=== PATIENT | male | born 1990 | race Caucasian/White ===

== ENCOUNTER 2020-08-02 21:08 | Inpatient (IN) | payer MEDICAID, SELFPAY ==
[2020-08-02 21:09] VITALS: BP 124/83; PULSE 105; RESP 18; TEMP 37; O2SAT 100; BMI 20.1
--- NOTE | 2020-08-02 21:34 | ED.VISSUMM ---
- ER Visit Summary Date of Service: 08/02/20 Chief Complaint: Resting detox for heroin and alcohol abuse History of Present Illness: The patient is a 30 M no seen past medical history. Patient states is never gone through detox before. He says for last 5 months he has been drinking about 1/5 of hard alcohol daily and tries to use heroin daily. 5 years ago he did IV heroin and now he snorts the heroin. He denies any symptoms currently. At times he does get nauseated. He denies any fever. Denies any other complaints. Physical Examination: Well-appearing 30-year-old male no acute distress. Vital signs stable afebrile. Pulse ox 9% on room air no hypoxia. HEENT exam unremarkable. Pupils are reactive light no signs of trauma. Moist with membranes. Neck nontender no lymphadenopathy. Lungs clear to auscultation bilaterally. Heart regular rhythm no murmur. Abdomen soft nontender normal bowel sounds no peritoneal signs. Patient moving all 4 extremities. No cellulitis or abscesses. Normal range of motion nontender. No edema. Back nontender. Neurologically is awake alert with no focal motor deficits. Test Results: None Emergency Department Course and Treatment: 30-year-old male medically cleared requesting detox for alcohol and heroin. Treatment Plan: Hospitalist on page for admission. Disposition: Admit for detox Impression: Requesting detox for both alcohol and heroin abuse This note was generated with [employer] dictation software. It may contain incorrect words, spelling, and punctuation that were not noted in review of the chart prior to signing
--- NOTE | 2020-08-02 21:57 | ED.RN ---
180 patient navigator made aware of patient being admitted
--- NOTE | 2020-08-02 22:00 | ED.RN ---
rudy called report at 191
[2020-08-02 22:09] VITALS: RESP 18
--- NOTE | 2020-08-02 23:27 | PCM.HP.STD ---
Problem List (1) Alcohol withdrawal Status: Acute (2) Heroin withdrawal Status: Acute History of Present Illness Date of Admission: 08/02/20 Chief Complaint: Withdrawal symptoms The patient is a 30 year old M with a significant history of anxiety disorder; depression; alcohol abuse and heroin abuse who presents to the emergency department with withdrawal symptoms. His symptoms started on the same day of presentation. He describes his symptoms as nausea; fatigue; diaphoresis; tremor; diarrhea; restless leg; and twitching. Patient has been drinking alcohol for over 1 year. However in the last year he has be drinking more steadily. He drinks about a fifth of hard liquor daily. Last time he drank was about 4 hours prior to presentation. Also, he snorts heroin. In the past he used to shoot heroin but last time he shot heroin was about 5 years ago. Patient has not been to a rehabilitation program before. Past Medical History Medical History: Medical History (Last Updated 08/03/20 @ 00:[address] Go Tay MD) Denies previous medical history Allergies No Known Allergies Allergy (Verified 08/02/20 21:11) Home Medications: Ambulatory Orders Medication Instructions Recorded NK 08/02/20 Surgical History: tonsillectomy Smoking Status: Current every day smoker Tobacco Use: Cigarettes, Vapor Alcohol: Heavy Drugs: Heroin - *Family History Maternal History Items: - - Leukemia Paternal History Items: Hypertension Review of Systems Constitutional: Denies: Chills, Fever, Weight Change HEENT: Denies: Head Aches, Sinus Congestion, Sinus Drainage Cardiovascular: Denies: Chest Pain, Palpitations Respiratory: Denies: Cough, Shortness of breath at rest, Sputum production Gastrointestinal: Reports: Diarrhea. Denies: Abdominal Pain, Nausea, Vomiting Genitourinary: Denies: Dysuria Musculoskeletal: Denies: Joint Pain, Joint Tenderness Skin: Denies: Rash, Wounds Neurological: Reports: Tremor. Denies: Focal weakness, Numbness, Tingling Psychiatric: Reports: Anxiety, Depression. Denies: Homicidal Ideations, Suicidal Ideations Hematologic/ Lymphatic: Denies: Easy Bruising, Easy Bleeding VTE Information - Inpt Only VTE Present on Admission: No VTE Mechan Device Prophylaxis: None VTE Pharm Prophylaxis ordered?: No Reason prophylaxis not ordered:: Treatment Not Indicated - Low risk; encouraged to ambulate Patient Problems: Active and Suspected Problems Alcohol withdrawal (Acute) Heroin withdrawal (Acute) - Physical Exam Vitals/I&O's: Vital Signs Temp Pulse Resp BP Pulse Ox 98.6 F 105 H 18 124/83 H 100 08/02/20 21:09 08/02/20 21:09 08/02/20 22:09 08/02/20 21:09 08/02/20 21:09 Oxygen Delivery Method Room Air Weight: 60 kg Body Mass Index (BMI) 20.1 General: Alert, Oriented x3, Cooperative, - - Patient was repeatedly moving his legs. HEENT: Atraumatic, PERRLA, EOMI, Normocephalic Neck: Supple, No JVD, Negative Carotid Bruits Lungs: Clear to auscultation, Normal air movement Cardiovascular: Normal S1, Normal S2, No murmurs, Tachycardic Abdomen: Bowel Sounds Present, Soft, Non Tender Extremities: No edema, Capillary Refill Less than 3 Seconds Skin: No rashes, No breakdown Musculoskeletal: No Tenderness to Palpation of Joints or Extremities Neurological: Cranial nerves II-XII grossly intact Psych/Mental Status: Anxious Assessment/Plan All Active Problems Alcohol withdrawal (Acute) Heroin withdrawal (Acute) The patient is a 30 year old M with a significant history of alcohol abuse; heroin abuse; and tobacco abuse who presents to the emergency department with withdrawal symptoms. Alcohol dependence and desire for detoxification/opioid dependence and desire for detoxification Patient will be started on phenobarbital and other adjunctive medications: Gabapentin as needed; dicyclomine as needed; Vistaril as needed; methocarbamol as needed; clonidine as needed; Imodium as needed; trazodone as needed; Zofran as needed; scheduled thiamine; and schedule folic acid. Monitor CIWA; COWS and CINA score If phenobarbital taper is unable to control symptoms consider adding Subutex. Tobacco abuse Counseled Nicotine patch prescribed. DVT prophylaxis Low risk Encourage to ambulate Inpatient E&M: 30518 Init Hosp L3
[2020-08-02 23:28] VITALS: BP 146/81; PULSE 107; RESP 18; TEMP 36.8; O2SAT 100
[2020-08-02 23:41] VITALS: BMI 19.9
[2020-08-02 23:45] VITALS: BP 133/80; PULSE 88; RESP 16; TEMP 36.6; O2SAT 100
[2020-08-02 23:48] VITALS: BMI 19.9
[2020-08-02] MEDS: Ondansetron 8 MG Tablet PO (23:57)
[2020-08-02] MEDS: Dicyclomine 10 MG Capsule 20 MG PO (23:58)
[2020-08-02] MEDS: Phenobarbital 32.4 MG Tablet 64.8 MG PO (23:58)
[2020-08-02] MEDS: traZODone 100 MG Tablet PO (23:59)
[2020-08-03] MEDS: Gabapentin 300 MG Capsule PO (00:33)
[2020-08-03] MEDS: Buprenorphine HCl 2 MG TAB.SUBL SL ×3 (01:09→16:48)
[2020-08-03] MEDS: Phenobarbital 32.4 MG Tablet 64.8 MG PO ×5 (04:39→19:51)
[2020-08-03 04:44] VITALS: BP 104/67; PULSE 68; RESP 16; TEMP 36.6; O2SAT 100
[2020-08-03 09:10] LABS: Absolute Lymphocyte Count 2.05 X10^3/uL (0.83-4.51); Absolute Neutrophil Count 2.8 X10^3/uL (2.0-7.7); Basophil# 0.03 X10^3/uL; Basophil% 0.5 % (0-1); Eosinophil# 0.08 X10^3/uL; Eosinophils% 1.4 % (0-5); Hematocrit 45.4 % (40-54); Lymphocyte # 2.05 X10^3/ul (4.0); Lymphocyte % 35.8 % (19-41); Mean Corpuscular Hgb 30.5 pg (27.0-32.0); Mean Corpuscular Volume 92.5 fL (80-94); Mean Platelet Vol. 10.3 fl (6.2-12.0); Monocyte# 0.73 X10^3/uL; Monocyte% 12.8 % (0-10); NRBC Flagged by Analyzer 0 % (0-5); Neutrophil # 2.82 X10^3/uL (2.7-7.7); Neutrophil % 49.3 % (47-70); Platelet Count 161 K/mm3 (150-450); RBC Distribution Width CV 12.5 % (11.6-14.6); RBC Distribution Width SD 42.6 fl (35.1-43.9); Red Blood Count 4.91 M/mm3 (4.6-6.2); White Blood Count 5.7 K/mm3 (4.4-11.0)
[2020-08-03 09:27] LABS: AST(SGOT) 23 U/L (15-37); Alanine Aminotransfer ALT/SGPT 28 U/L (16-61); Albumin, Serum 3.3 g/dL (3.2-5.0); Alkaline Phosphatase 104 U/L (45-117); Anion Gap 3 (5-15); BUN 14 mg/dL (7-18); BUN/Creat Ratio 15.7 RATIO (10-20); Calcium,Total 8.9 mg/dL (8.5-10.1); Chloride 107 mmol/L (98-107); Creatinine, Serum 0.89 mg/dL (0.70-1.30); EST Glomerular Filtration Rate 107 mL/min (>60); Est Glom Filt Rate - Afr Amer 129 mL/min (>60); Estimated Creatinine Clearance 101.97 ml/min; Globulin 3.4 g/dL (2.2-4.2); Glucose 95 mg/dL (74-106); Potassium 3.6 mmol/L (3.5-5.1); Protein, Total 6.7 g/dL (6.4-8.2); Sodium Level 140 mmol/L (136-145)
[2020-08-03 09:50] VITALS: BP 124/72; PULSE 92; RESP 18; TEMP 36.8; O2SAT 100
[2020-08-03] MEDS: Folic Acid 1 MG Tablet PO (09:54)
[2020-08-03] MEDS: Thiamine Hydrochloride 100 MG Tablet PO (09:54)
--- NOTE | 2020-08-03 10:50 | ADDICTION ---
This financial underwriter met with PT in his room to complete ASAM, MSE, AUDIT/DUDIT assessments and to plan for discharge. PT A+Ox4 and participated actively. PT appears appropriate for 4.0 LOC based on ASAM assessment. Assessments completed, faxed to [facility] and placed in PT's chart. D/C plan completed, faxed to [facility] and placed in PT's chart. PT did not report a need for transportation coordination after discharge. PT to follow-up with Des on 08/08/20 at 9:30am for assessment with Des. PT given contact information for this financial underwriter and Des. PT given recovery-related materials during this visit.
[2020-08-03 11:56] LABS: Bedside Glucose 137 mg/dL (70-110)
[2020-08-03] MEDS: Dicyclomine 10 MG Capsule 20 MG PO (12:32)
[2020-08-03] MEDS: Methocarbamol 750 MG Tablet 1500 MG PO ×2 (12:32→19:51)
[2020-08-03 12:35] VITALS: BP 114/71; PULSE 64; RESP 18; TEMP 36.8; O2SAT 100
--- NOTE | 2020-08-03 14:24 | PN_ITS ---
Patient Problems: Active and Suspected Problems (Last Updated 08/03/20 @ 00:[address] Go Tay MD) Alcohol withdrawal (Acute) Heroin withdrawal (Acute) Reason for Visit: Follow-up on acute alcohol withdrawal Subjective: Patient was seen and examined. He feels improved. He has some restlessness in his legs. Otherwise there were no acute events overnight. Patient last used more than half a gram of heroin 2 hours prior to admission. He admits to also drinking 4 hours prior to admission. Objective: Physical exam: General: Alert, Oriented x3, Cooperative, appears anxious and restless HEENT: Atraumatic, PERRLA, EOMI, Normocephalic Neck: Supple, No JVD, Negative Carotid Bruits Lungs: Clear to auscultation, Normal air movement Cardiovascular: Normal S1, Normal S2, No murmurs, Tachycardic Abdomen: Bowel Sounds Present, Soft, Non Tender Extremities: No edema, Capillary Refill Less than 3 Seconds Skin: No rashes, No breakdown Musculoskeletal: No Tenderness to Palpation of Joints or Extremities Neurological: Cranial nerves II-XII grossly intact Psych/Mental Status: Anxious Vitals/I&O's: Vital Signs Temp Pulse Resp BP Pulse Ox 98.3 F 64 18 114/71 100 08/03/20 12:35 08/03/20 12:35 08/03/20 12:35 08/03/20 12:35 08/03/20 12:35 Oxygen Delivery Method Room Air Weight: 59.4 kg Body Mass Index (BMI) 19.9 Intake and Output for Last 24 Hours 08/01/20 08/02/20 08/03/20 23:59 23:59 23:59 Intake Total 1100 / 1100 Balance 1100 / 1100 Laboratory Results 08/03/20 08:55: WBC 5.7, RBC 4.91, Hgb 15.0, Hct 45.4, MCV 92.5, MCH 30.5, MCHC 33.0, RDW Std Deviation 42.6, RDW Coeff of Ida 12.5, Plt Count 161, MPV 10.3, Immature Gran % (Auto) 0.200, Neut % (Auto) 49.3, Lymph % (Auto) 35.8, Beckham % (Auto) 12.8 H, Eos % (Auto) 1.4, Baso % (Auto) 0.5, Absolute Neuts (auto) 2.8, Absolute Lymphs (auto) 2.05, Nucleated RBC % 0 08/03/20 08:55: Sodium 140, Potassium 3.6, Chloride 107, Carbon Dioxide 30.0, Anion Gap 3 L, BUN 14, Creatinine 0.89, Estim Creat Clear Calc 101.97, Est GFR (MDRD) Af Amer 129, Est GFR (MDRD) Non-Af 107, BUN/Creatinine Ratio 15.7, Glucose 95, Calcium 8.9, Total Bilirubin 0.50, AST 23, ALT 28, Alkaline Phosphatase 104, Total Protein 6.7, Albumin 3.3, Globulin 3.4, Albumin/Globulin Ratio 1.0 08/03/20 11:51: POC Glucose 137 H Current Medications Buprenorphine HCl (Buprenorphine Hcl 2 Mg Tab.Subl) 4 mg SL Q8H COUNT INCLUDES THE [facility]; Taper Stop: 08/06/20 00:59 Last Admin: 08/03/20 09:54 Dose: 4 mg Documented by: Clonidine (Clonidine Hcl 0.1 Mg Tablet) 0.1 mg PO Q8H PRN PRN PRN Reason: RESTLESSNESS Dicyclomine HCl (Dicyclomine 10 Mg Capsule) 20 mg PO Q6H PRN PRN PRN Reason: abdominal discomfort Last Admin: 08/03/20 12:32 Dose: 20 mg Documented by: Folic Acid (Folic Acid 1 Mg Tablet) 1 mg PO DAILY@0800 COUNT INCLUDES THE [facility] Last Admin: 08/03/20 09:54 Dose: 1 mg Documented by: Gabapentin (Gabapentin 300 Mg Capsule) 300 mg PO Q8H PRN PRN PRN Reason: moderate to severe anxiety Last Admin: 08/03/20 00:33 Dose: 300 mg Documented by: Hydroxyzine Pamoate (Hydroxyzine Lamar 25 Mg Capsule) 50 mg PO Q4H PRN PRN PRN Reason: mild anxiety Loperamide HCl (Loperamide 2 Mg Capsule) 2 mg PO Q4H PRN PRN PRN Reason: LOOSE STOOLS Methocarbamol (Methocarbamol 750 Mg Tablet) 1,500 mg PO Q6H PRN PRN PRN Reason: MUSCLE SPASM Last Admin: 08/03/20 12:32 Dose: 1,500 mg Documented by: Nicotine (Nicotine 21 Mg Patch) 21 mg TD DAILY COUNT INCLUDES THE [facility] Last Admin: 08/03/20 09:54 Dose: 21 mg Documented by: Nicotine Polacrilex (Nicotine Polacrilex 2 Mg Gum) 2 mg PO Q2H PRN PRN PRN Reason: Nicotine Craving Ondansetron HCl (Ondansetron 8 Mg Tablet) 8 mg PO Q8H PRN PRN PRN Reason: NAUSEA Last Admin: 08/02/20 23:57 Dose: 8 mg Documented by: Phenobarbital (Phenobarbital 32.4 Mg Tablet) 97.2 mg PO Q4H KRISS; Taper Stop: 08/07/20 07:59 Last Admin: 08/03/20 12:32 Dose: 97.2 mg Documented by: Sodium Chloride (0.9% Saline Lock 10 Ml Syringe) 10 - 40 ml IV UD PRN PRN Reason: SALINE FLUSH Thiamine HCl (Thiamine Hydrochloride 100 Mg Tablet) 100 mg PO DAILYCM KRISS Last Admin: 08/03/20 09:54 Dose: 100 mg Documented by: Trazodone HCl (Trazodone 100 Mg Tablet) 100 mg PO QHS PRN PRN PRN Reason: INSOMNIA Last Admin: 08/02/20 23:59 Dose: 100 mg Documented by: STROKE Vital Signs/Narrative: Vital Signs Temp Pulse Resp BP Pulse Ox 08/03/20 12:35 98.3 F 64 18 114/71 100 Medical Necessity - Tobacco Use Smoking Status: Current every day smoker Tobacco Use: Cigarettes, Vapor Assessment/Plan All Active Problems (Last Updated 08/03/20 @ 00:[address] Go Tay MD) Alcohol withdrawal (Acute) Heroin withdrawal (Acute) 1. Acute alcohol withdrawal, patient CIWA scores appear to be improving, continue on phenobarbital withdrawal protocol 2. Acute opiate withdrawal, continue with Subutex 3. Nicotine dependence, on replacement 4. DVT prophylaxis with early ambulation Inpatient E&M: 47067 Subs Hosp L2
--- NOTE | 2020-08-03 15:15 | CASEMGMT ---
Social Work MS3 Met with patient for self pay status. Patient reports to be in the process of obtaining Medicaid, and that the JFS worker just needs some pay stubs to approve. Provided patient with [facility] care assurance application in the case that Medicaid is denied. Provided resources for prescription assistance and medical care. Patient accepted information. Patient reports to have a good support system, and to have sober support available including patient's mother (who is also in recovery) and patient's sister. Patient denies any other needs at this time. Reports to be set up for an assessment at [facility] and reports willingness to follow through. -JESSICA Britton, JUNIOR JAVA DEVELOPER
[2020-08-03] MEDS: cloNIDine HCl 0.1 MG Tablet PO (16:48)
[2020-08-03 16:50] VITALS: BP 119/79; PULSE 70; RESP 18; TEMP 36.7; O2SAT 100
[2020-08-03 19:50] VITALS: BP 123/79; PULSE 61; RESP 16; TEMP 36.7; O2SAT 100
[2020-08-03] MEDS: hydrOXYzine PAM 25 MG Capsule 50 MG PO (19:51)
[2020-08-03] MEDS: traZODone 100 MG Tablet PO (19:52)
[2020-08-04] MEDS: Buprenorphine HCl 2 MG TAB.SUBL SL ×3 (00:44→16:48)
[2020-08-04] MEDS: Phenobarbital 32.4 MG Tablet 64.8 MG PO ×6 (00:44→20:24)
[2020-08-04 02:00] VITALS: BP 121/75; PULSE 56; RESP 16; TEMP 36.7; O2SAT 99
[2020-08-04] MEDS: Thiamine Hydrochloride 100 MG Tablet PO (07:51)
[2020-08-04] MEDS: Folic Acid 1 MG Tablet PO (07:51)
[2020-08-04 07:59] VITALS: BP 120/81; PULSE 60; RESP 16; TEMP 36.3; O2SAT 100
[2020-08-04 08:59] VITALS: BP 128/78; PULSE 68; RESP 18; TEMP 36.5; O2SAT 99
--- NOTE | 2020-08-04 09:52 | ADDICTION ---
This development writer met with PT in his room to finalize d/c plan. PT to follow-up with [facility] for counseling and potentially for Vivitrol to be discussed with counselor. PT amiable to this plan and did not request transportation coordination.
[2020-08-04] MEDS: Ibuprofen 400 MG Tablet PO (10:17)
[2020-08-04 13:31] VITALS: BP 122/80; PULSE 72; RESP 18; TEMP 36.5; O2SAT 98
[2020-08-04 15:41] VITALS: BP 115/74; PULSE 57; RESP 16; TEMP 36.6; O2SAT 100
--- NOTE | 2020-08-04 15:53 | CHAPLAIN ---
Type of Pastoral Visit _x__ Initial Visit ___ Follow-up Visit ___ On-call Visit ___ General Patient Visit ___ Spiritual Assessment ___ Family Conference ___ Bereavement ___ Rapid Response ___ Code Blue ___ Other (describe below) Pastoral Care Referral From _x__ Patient ___ Family ___ Nurse ___ Physician ___ Cocoa Roaster ___ Knit Goods Press Hand ___ Other (describe below) Sacrament/Intervention _x__ Active listening ___ Anointing ___ Samaritan ___ Bereavement ___ Communion ___ Kamini exploration ___ _x__ Life review _x__ Prayer ___ Reconciliation ___ Sacrament of Sick _x__ Supportive presence ___ Wedding ___ Other (describe below) Pastoral Comments patient gives life review and desire for detox; pt states this is his first time in detox; pt says he has some family support; pt has a job and hopes to return to it soon; pt welcomed time for conversation, support, and prayer; pt has a plan initiated with 180 for follow up
--- NOTE | 2020-08-04 16:07 | NURSING ---
Student documentation reviewed.
[2020-08-04] MEDS: Methocarbamol 750 MG Tablet 1500 MG PO (17:55)
--- NOTE | 2020-08-04 18:12 | NURSING ---
mother gray called and expressed that she is worried that fermin has depression and in past has had suicidal thoughts. gray wanted to have him placed on medication for depression and for pt to stay in hospital till [address] hung notified and called gray to discuss pt depression. dr hung explained that he needs to f/u as out pt with phycologist and 180 for depression. depression screen completed and pt scored 8 showing mild depression.
--- NOTE | 2020-08-04 18:13 | PN_ITS ---
Patient Problems: Active and Suspected Problems (Last Updated 08/03/20 @ 00:[address] Go Tay MD) Alcohol withdrawal (Acute) Heroin withdrawal (Acute) Reason for Visit: Follow-up on acute alcohol withdrawal Subjective: Patient was seen and examined. He complains of right gum pain. Denies any fever or chills. Patient's mother later on asked to speak to me about his depression. She expressed concern about patient's previous history of depression. She had not gotten treatment for him in the past. Patient's depression screen was 8 which is mild. He is on trazodone. She had questions about his discharge plan. I advised her to speak with 180. Objective: Physical exam: General: Alert, Oriented x3, Cooperative, appears anxious and restless HEENT: Atraumatic, PERRLA, EOMI, Normocephalic Neck: Supple, No JVD, Negative Carotid Bruits Lungs: Clear to auscultation, Normal air movement Cardiovascular: Normal S1, Normal S2, No murmurs, Tachycardic Abdomen: Bowel Sounds Present, Soft, Non Tender Extremities: No edema, Capillary Refill Less than 3 Seconds Skin: No rashes, No breakdown Musculoskeletal: No Tenderness to Palpation of Joints or Extremities Neurological: Cranial nerves II-XII grossly intact Psych/Mental Status: Anxious Vitals/I&O's: Vital Signs Temp Pulse Resp BP Pulse Ox 97.9 F 57 L 16 115/74 100 08/04/20 15:41 08/04/20 15:41 08/04/20 15:41 08/04/20 15:41 08/04/20 15:41 Oxygen Delivery Method Room Air Weight: 59.4 kg Body Mass Index (BMI) 19.9 Intake and Output for Last 24 Hours 08/02/20 08/03/20 08/04/20 23:59 23:59 23:59 Intake Total 1100 / 1600 1850 / 1850 Balance 1100 / 1600 1850 / 1850 Current Medications Buprenorphine HCl (Buprenorphine Hcl 2 Mg Tab.Subl) 2 mg SL Q8H KRISS; Taper Stop: 08/06/20 00:59 Last Admin: 08/04/20 16:48 Dose: 2 mg Documented by: Clonidine (Clonidine Hcl 0.1 Mg Tablet) 0.1 mg PO Q8H PRN PRN PRN Reason: RESTLESSNESS Last Admin: 08/03/20 16:48 Dose: 0.1 mg Documented by: Dicyclomine HCl (Dicyclomine 10 Mg Capsule) 20 mg PO Q6H PRN PRN PRN Reason: abdominal discomfort Last Admin: 08/03/20 12:32 Dose: 20 mg Documented by: Folic Acid (Folic Acid 1 Mg Tablet) 1 mg PO DAILY@0800 KRISS Last Admin: 08/04/20 07:51 Dose: 1 mg Documented by: Gabapentin (Gabapentin 300 Mg Capsule) 300 mg PO Q8H PRN PRN PRN Reason: moderate to severe anxiety Last Admin: 08/03/20 00:33 Dose: 300 mg Documented by: Hydroxyzine Pamoate (Hydroxyzine Lamar 25 Mg Capsule) 50 mg PO Q4H PRN PRN PRN Reason: mild anxiety Last Admin: 08/03/20 19:51 Dose: 50 mg Documented by: Ibuprofen (Ibuprofen 400 Mg Tablet) 400 mg PO Q6H PRN PRN PRN Reason: Toothache Last Admin: 08/04/20 10:17 Dose: 400 mg Documented by: Loperamide HCl (Loperamide 2 Mg Capsule) 2 mg PO Q4H PRN PRN PRN Reason: LOOSE STOOLS Methocarbamol (Methocarbamol 750 Mg Tablet) 1,500 mg PO Q6H PRN PRN PRN Reason: MUSCLE SPASM Last Admin: 08/04/20 17:55 Dose: 1,500 mg Documented by: Nicotine (Nicotine 21 Mg Patch) 21 mg TD DAILY [facility] Last Admin: 08/04/20 07:51 Dose: 21 mg Documented by: Nicotine Polacrilex (Nicotine Polacrilex 2 Mg Gum) 2 mg PO Q2H PRN PRN PRN Reason: Nicotine Craving Ondansetron HCl (Ondansetron 8 Mg Tablet) 8 mg PO Q8H PRN PRN PRN Reason: NAUSEA Last Admin: 08/02/20 23:57 Dose: 8 mg Documented by: Phenobarbital (Phenobarbital 32.4 Mg Tablet) 64.8 mg PO Q4H KIRSS; Taper Stop: 08/07/20 07:59 Last Admin: 08/04/20 15:38 Dose: 64.8 mg Documented by: Sodium Chloride (0.9% Saline Lock 10 Ml Syringe) 10 - 40 ml IV UD PRN PRN Reason: SALINE FLUSH Thiamine HCl (Thiamine Hydrochloride 100 Mg Tablet) 100 mg PO DAILYCM KRISS Last Admin: 08/04/20 07:51 Dose: 100 mg Documented by: Trazodone HCl (Trazodone 100 Mg Tablet) 100 mg PO QHS PRN PRN PRN Reason: INSOMNIA Last Admin: 08/03/20 19:52 Dose: 100 mg Documented by: STROKE Vital Signs/Narrative: Vital Signs Temp Pulse Resp BP Pulse Ox 08/04/20 15:41 97.9 F 57 L 16 115/74 100 Medical Necessity - Tobacco Use Smoking Status: Current every day smoker Tobacco Use: Cigarettes, Vapor Assessment/Plan All Active Problems (Last Updated 08/03/20 @ 00:[address] Go Tay MD) Alcohol withdrawal (Acute) Heroin withdrawal (Acute) 1. Acute alcohol withdrawal, improving, continue on phenobarbital withdrawal protocol 2. Acute opiate withdrawal, continue with Subutex 3. Acute dental caries, no signs of acute infection, warm saline mouthwashes with ibuprofen given Outpatient dental appointment recommended 4. Nicotine dependence, on replacement 4. DVT prophylaxis with early ambulation Inpatient E&M: 14870 Subs Hosp L2
[2020-08-04 20:18] VITALS: BP 118/75; PULSE 60; RESP 14; TEMP 36.6; O2SAT 100
[2020-08-04] MEDS: traZODone 100 MG Tablet PO (20:24)
[2020-08-05] MEDS: Buprenorphine HCl 2 MG TAB.SUBL SL ×2 (00:35→12:51)
[2020-08-05] MEDS: Phenobarbital 32.4 MG Tablet 64.8 MG PO ×3 (00:35→08:00)
[2020-08-05] MEDS: Ibuprofen 400 MG Tablet PO (03:54)
[2020-08-05 04:30] VITALS: BP 149/101; PULSE 68; RESP 16; TEMP 36.6; O2SAT 100
[2020-08-05 07:54] VITALS: BP 114/66; PULSE 70; RESP 18; TEMP 36.7; O2SAT 100
[2020-08-05] MEDS: Folic Acid 1 MG Tablet PO (08:00)
[2020-08-05] MEDS: Thiamine Hydrochloride 100 MG Tablet PO (08:00)
[2020-08-05 08:24] VITALS: BP 128/71; PULSE 69; RESP 18; TEMP 36.6; O2SAT 99
--- NOTE | 2020-08-05 08:38 | DCINST_ITS ---
- Discharge Diagnoses Current Active Problems: Current Active and Chronic Problems (Last Updated 08/03/20 @ 00:[address] Go Tay MD) Alcohol withdrawal (Acute) Heroin withdrawal (Acute) You will use the following diet at home:: Regular Your food should be the consistency of: Regular Your liquids should be the consistency of: Regular/Thin Discharge Activity: Return to Normal Activity Call your doctor if you observe: Fever of 101 or Higher, Shortness of breath, Dizziness, Fainting spells, Swelling in the ankles, Chest pain, Increased palpitations (irregular heartbeat) Allergies/Adverse Reactions: Allergies No Known Allergies Allergy (Verified 08/02/20 21:11) Medications to take at Discharge Sertraline HCl [Zoloft] 50 mg PO DAILY #30 tab 08/05/20 The following prescriptions were given: Sertraline HCl [Zoloft] 50 mg PO DAILY #30 tab Transmission Status: Pending to [facility] Primary Care Physician: Care Physician,No Primary [Primary Care Provider] - Please follow up with your Primary Care Physician in: 3-5 days Test Results: Test results from this visit will be discussed in further detail at your follow- up appointment, if applicable. Please Follow Up With: 180 When: Saturday
--- NOTE | 2020-08-05 10:16 | CASEMGMT ---
Social Work Note SW updated Lisette with Des on pt's mother conversation last night with RN. Lisette in to speak with pt. Per Lisette BUSINESS PROCESS EXPERT-S pt denied any current suicidal thoughts/plans/ideations. Kathy Rosas MEETING/EVENT PLANNER, SAP BASIS ARCHITECT
--- NOTE | 2020-08-05 11:04 | PCM.DC.SUM ---
Discharge Date and Diagnosis - Problem List Patient Problems: Active and Suspected Problems (Last Updated 08/03/20 @ 00:[address] Go Tay MD) Alcohol withdrawal (Acute) Heroin withdrawal (Acute) Date of Admission: 08/02/20 Date of Discharge: 08/05/20 - Primary Discharge Diagnosis Acute Problems: Active Problems (Last Updated 08/03/20 @ 00:[address] Go Tay MD) Alcohol withdrawal (Acute) Heroin withdrawal (Acute) Hospital Course and Treatment Operations: None Procedures: None Summary of Care Provided: Per HPI: The patient is a 30 year old M with a significant history of anxiety disorder; depression; alcohol abuse and heroin abuse who presents to the emergency department with withdrawal symptoms. His symptoms started on the same day of presentation. He describes his symptoms as nausea; fatigue; diaphoresis; tremor; diarrhea; restless leg; and twitching. Patient has been drinking alcohol for over 1 year. However in the last year he has be drinking more steadily. He drinks about a fifth of hard liquor daily. Last time he drank was about 4 hours prior to presentation. Also, he snorts heroin. In the past he used to shoot heroin but last time he shot heroin was about 5 years ago. Patient has not been to a rehabilitation program before. Hospital Course: 1. Acute opiate and alcohol withdrawal/anxiety/ieqrsmsrgq-22-gwn[age]-old male presents to the emergency room for alcohol and heroin detox. He says that his symptoms of withdrawal started on the same day of presentation. He drinks about 1/5 of hard liquor every day and he snorts heroin. He met with [facility] who has outpatient availability on Saturday. I discussed this with the patient about staying through the weekend and going to [facility] on Saturday or if he felt safe enough to go home today, and he said that he felt safe enough to go home today and would like to go home today. He did score a mild depression on her depression screening and his mother did communicate with staff about her concerned that he was depressed. Therefore we will also discharge him on Zoloft 50mg to start today. I discussed with him the plan for discharge and he expressed understanding of the risk and benefits of going home and would like to go home today. Patient Problems: Active and Suspected Problems (Last Updated 08/03/20 @ 00:[address] Go Tay MD) Alcohol withdrawal (Acute) Heroin withdrawal (Acute) - Physical Exam Vitals/I&O's: Vital Signs Temp Pulse Resp BP Pulse Ox 97.9 F 69 18 128/71 H 99 08/05/20 08:24 08/05/20 08:24 08/05/20 08:24 08/05/20 08:24 08/05/20 08:24 Oxygen Delivery Method Room Air Weight: 130 lb 15.273 oz Body Mass Index (BMI) 19.9 Intake and Output for Last 24 Hours 08/03/20 08/04/20 08/05/20 23:59 23:59 23:59 Intake Total 1100 / 1599 250 / 250 Balance 1100 / 1600 2049 250 / 250 General: Alert, Oriented x3, Cooperative, No apparent distress HEENT: Atraumatic, PERRLA, EOMI, Normocephalic Oral: Moist Mucosa Neck: Supple, No JVD Lungs: Clear to auscultation, Normal air movement, No rhonchi, No wheeze, No rales Cardiovascular: Regular rate, Regular Rhythm, Normal S1, Normal S2, No murmurs Abdomen: Soft, Non Tender, Non-Distended, No Hepato-splenomegaly Extremities: No edema, Capillary Refill Less than 3 Seconds Skin: No rashes, No breakdown Neurological: Neuro grossly intact, Sensory exam intact to light touch and pain Psych/Mental Status: Normal Affect, Appropriate Current Medications Buprenorphine HCl (Buprenorphine Hcl 2 Mg Tab.Subl) 2 mg SL Q12H KRISS; Taper Stop: 08/06/20 00:59 Last Admin: 08/05/20 00:35 Dose: 2 mg Documented by: Clonidine (Clonidine Hcl 0.1 Mg Tablet) 0.1 mg PO Q8H PRN PRN PRN Reason: RESTLESSNESS Last Admin: 08/03/20 16:48 Dose: 0.1 mg Documented by: Dicyclomine HCl (Dicyclomine 10 Mg Capsule) 20 mg PO Q6H PRN PRN PRN Reason: abdominal discomfort Last Admin: 08/03/20 12:32 Dose: 20 mg Documented by: Folic Acid (Folic Acid 1 Mg Tablet) 1 mg PO DAILY@0800 KRISS Last Admin: 08/05/20 08:00 Dose: 1 mg Documented by: Gabapentin (Gabapentin 300 Mg Capsule) 300 mg PO Q8H PRN PRN PRN Reason: moderate to severe anxiety Last Admin: 08/03/20 00:33 Dose: 300 mg Documented by: Hydroxyzine Pamoate (Hydroxyzine Lamar 25 Mg Capsule) 50 mg PO Q4H PRN PRN PRN Reason: mild anxiety Last Admin: 08/03/20 19:51 Dose: 50 mg Documented by: Ibuprofen (Ibuprofen 400 Mg Tablet) 400 mg PO Q6H PRN PRN PRN Reason: Toothache Last Admin: 08/05/20 03:54 Dose: 400 mg Documented by: Loperamide HCl (Loperamide 2 Mg Capsule) 2 mg PO Q4H PRN PRN PRN Reason: LOOSE STOOLS Methocarbamol (Methocarbamol 750 Mg Tablet) 1,500 mg PO Q6H PRN PRN PRN Reason: MUSCLE SPASM Last Admin: 08/04/20 17:55 Dose: 1,500 mg Documented by: Nicotine (Nicotine 21 Mg Patch) 21 mg TD DAILY [facility] Last Admin: 08/05/20 08:01 Dose: 21 mg Documented by: Nicotine Polacrilex (Nicotine Polacrilex 2 Mg Gum) 2 mg PO Q2H PRN PRN PRN Reason: Nicotine Craving Ondansetron HCl (Ondansetron 8 Mg Tablet) 8 mg PO Q8H PRN PRN PRN Reason: NAUSEA Last Admin: 08/02/20 23:57 Dose: 8 mg Documented by: Phenobarbital (Phenobarbital 32.4 Mg Tablet) 64.8 mg PO Q6H [facility]; Taper Stop: 08/07/20 07:59 Last Admin: 08/05/20 08:00 Dose: 64.8 mg Documented by: Sodium Chloride (0.9% Saline Lock 10 Ml Syringe) 10 - 40 ml IV UD PRN PRN Reason: SALINE FLUSH Thiamine HCl (Thiamine Hydrochloride 100 Mg Tablet) 100 mg PO DAILYCM [facility] Last Admin: 08/05/20 08:00 Dose: 100 mg Documented by: Trazodone HCl (Trazodone 100 Mg Tablet) 100 mg PO QHS [facility] Last Admin: 08/04/20 20:24 Dose: 100 mg Documented by: Discharge Activity: Return to Normal Activity Call your doctor if you observe: Fever of 101 or Higher, Shortness of breath, Dizziness, Fainting spells, Swelling in the ankles, Chest pain, Increased palpitations (irregular heartbeat) Home Medications: Medications to take at Discharge Sertraline HCl [Zoloft] 50 mg PO DAILY #30 tab 08/05/20 Following Prescriptions Were Given to Patient: Sertraline HCl [Zoloft] 50 mg PO DAILY #30 tab Transmission Status: Received by [facility] Primary Care Physician: Care Physician,No Primary [Primary Care Provider] - Please follow up with your Primary Care Physician in: 3-5 days Please Follow Up With: [facility] When: Saturday Disposition: Home Minutes spent on discharge:: 35 Patient Condition:: Stable Medical Necessity - Tobacco Use Smoking Status: Current every day smoker Tobacco Use: Cigarettes, Vapor Meaningful Use Info Meaningful Use Diagnoses (Choose all that apply): None applicable Inpatient E&M: 80651 [facility] H[facility]
[2020-08-05 11:37] VITALS: BP 123/85; PULSE 66; RESP 18; TEMP 36.6; O2SAT 100
--- NOTE | 2020-08-05 12:45 | PHA.DC.MC ---
Pharmacy Service has performed discharge medication reconciliation and counseling for this patient. 1. SERTRALINE 50MG PO DAILY The patient's discharge medication list was reviewed for discrepancies and discrepancies were resolved. The patient was counseled on the following discharge medications and changes in medications for homegoing were reviewed. The Reason for Use, instructions for use, and potential side effects were reviewed for all new medications. The patient's questions regarding all of their medications were answered. The patient was able to verbally demonstrate an understanding of their discharge medications.
[2020-08-05 12:50] VITALS: BP 128/72; PULSE 67; RESP 18; TEMP 36.8; O2SAT 100
== END 2020-08-05 13:44 | disposition home or self-care (01) | DRG 897 ==
LOC: ED 21:45 → MS3 22:56
PROVIDERS: Internal Medicine; Admitting Provider Hospitalist; Emergency Provider Emergency Medicine; Visit Provider Family Medicine
DX: F10.239 Alcohol dependence with withdrawal, unspecified (principal); F11.23 Opioid dependence with withdrawal; K02.9 Dental caries, unspecified; G25.81 Restless legs syndrome; F32.9 Major depressive disorder, single episode, unspecified; F41.9 Anxiety disorder, unspecified; F17.210 Nicotine dependence, cigarettes, uncomplicated; Z79.899 Other long term (current) drug therapy
CPT/HCPCS: 36415; 80053; 82962; 85025; 97802; 99285; 99406; A4216

== ENCOUNTER 2024-05-22 14:53 | Inpatient (IN) | payer MEDICAID, SELFPAY ==
[2024-05-22 14:53] VITALS: BP 112/82; PULSE 99; RESP 16; TEMP 36.8; O2SAT 100; BMI 23.0
--- NOTE | 2024-05-22 19:13 | EDS_ITS ---
HPI <RUEL Bowers - Last Filed: 05/22/24 21:37> History of Present Illness Chief Complaint: Substance Abuse Narrative Narrative: 33-year-old male with past medical history of alcoholism, pancreatitis presents requesting alcohol detox. He states he drinks about 12 pints of 13% alcohol per day and his last drink was 2 hours ago. He has been heavily drinking since November 2023. He had his first episode of pancreatitis 2 weeks ago and was admitted to [facility] for several days. Since then his abdominal pain has decreased. He vomited once this morning but denies hematemesis. He states his stool occasionally looks dark but he thinks it is from Pepto-Bismol. He has no history of withdrawal seizures. He takes methadone. PFSH <RUEL Bowers - Last Filed: 05/22/24 21:37> [facility] Medical History (Updated 05/22/24 @ 23:[address] Drake Mccartney, DO) Hx of renal calculi Pancreatitis Denies previous medical history Home Medications ?Medication ?Instructions ?Recorded ?Last Taken ?Type methadone 10 mg tablet 100 mg PO DAILY 05/22/24 Unknown History Allergy/AdvReac Type Severity Reaction Status Date / Time levetiracetam (From [facility]) Allergy HIVES Verified 05/22/24 14:54 Surgical History Hx of tonsillectomy Social History Smoking Status: Current every day smoker tobacco type: e-cigarettes ROS <RUEL Bowers - Last Filed: 05/22/24 21:37> ROS ED ROS Narrative Constitutional: Negative for fever, chills, malaise. CVS: Negative for chest pain. Respiratory: Negative for shortness of breath. GI: Positive for abdominal pain, nausea, vomiting. : Negative for dysuria. EXAM <RUEL Bowers - Last Filed: 05/22/24 21:37> Physical Exam Narrative Exam Narrative: CONST: Patient sitting in no acute distress. EYES: Normal inspection. NECK: Normal inspection. RESP: No respiratory distress, CTAB. CVS: Regular rate and rhythm, no murmur, no gallop. ABD: Soft and nontender, no guarding or rebound, nondistended. SKIN: Color normal, no rash, warm, dry, intact. EXTREMITIES: Normal appearance, no pedal edema. NEURO: Alert and answering questions appropriately. PSYCH: Normal affect. Const Vital Signs: 05/22/24 14:53 Temperature 98.2 F Temperature Source Oral Pulse Rate 99 Respiratory Rate 16 Blood Pressure 112/82 H Blood Pressure Mean 92 Pulse Ox 100 Oxygen Delivery Method Room Air <Dr. Drake Mccartney DO - Last Filed: 05/22/24 23:55> Physical Exam Const Vital Signs: 05/22/24 14:53 Temperature 98.2 F Temperature Source Oral Pulse Rate 99 Respiratory Rate 16 Blood Pressure 112/82 H Blood Pressure Mean 92 Pulse Ox 100 Oxygen Delivery Method Room Air MDM <RUEL Bowers - Last Filed: 05/22/24 21:37> [facility] Narrative Medical decision making narrative: Patient is here for alcohol detox. Last drink 2 hours ago. Currently asymptomatic, appears well and nontoxic, hemodynamically stable. Labs notable for hypokalemia 2.8 and elevated LFTs. Lipase minimally elevated at 79. He has a recent bout of pancreatitis 2 weeks ago and states pain has been improving so this likely trending down. Alcohol level is 363. Case was discussed with the hospitalist for admission. He was given p.o. potassium and his home dose of methadone in the ED and the hospitalist will order detox meds. Lab Data Attestation: I reviewed the patient's lab results. Labs: Laboratory Results - last 24 hr 05/22/24 18:13 Urine Opiates Screen NEGATIVE Urine Methadone Screen POSITIVE H Ur Barbiturates Screen POSITIVE H Ur Phencyclidine Scrn NEGATIVE Ur Amphetamines Screen NEGATIVE MDMA (Ecstasy) Screen NEGATIVE U Benzodiazepines Scrn NEGATIVE Urine Cocaine Screen NEGATIVE U Cannabinoids Screen POSITIVE H Ur Drug Screen Comment EKG Initial EKG: Attestation: I personally reviewed and interpreted this EKG as follows: Interpretation: Sinus Rhythm and No Acute Injury Pattern Comments: Normal sinus rhythm 87 bpm Nonspecific T wave abnormality QTc 459 ms <Dr. Drake Mccartney DO - Last Filed: 05/22/24 23:55> [facility] Narrative Medical decision making narrative: Patient is here for alcohol detox. Last drink 2 hours ago. Currently asymptomatic, appears well and nontoxic, hemodynamically stable. Labs notable for hypokalemia 2.8 and elevated LFTs. Lipase minimally elevated at 79. He has a recent bout of pancreatitis 2 weeks ago and states pain has been improving so this likely trending down. Alcohol level is 363. Case was discussed with the hospitalist for admission. He was given p.o. potassium and his home dose of methadone in the ED and the hospitalist will order detox meds. Attending note: I have personally performed a face to face assessment of the patient and have reviewed the SUSANNA note. I personally made/approved the management plan and take responsibility for the patient management. I performed a substantive portion of the visit including all aspects of the following. My orozco findings include: Here for detox, drinks a total of 12 pints of vodka a day for the past 6 months. Wakes up starts drinking he does not drink he starts having shakes. No withdrawal seizures. No history of alcohol assistance in the past. He is on chronic methadone of 100 mg daily followed by the [facility] clinic. He missed today's dose due to drinking. Denies suicidal homicidal ideations. Exam slightly anxious nontoxic. Last drink prior to arrival. He is not intoxicated. He wants alcohol assistance. He had labs drawn, discussed with hospitalist Dr. Valladares states he can continue methadone as he is on it chronically. 100 mg was ordered through the ED as his reported dose. This was confirmed by significant other in the room. Admits to marijuana history. Lab Data Labs: Laboratory Results - last 24 hr 05/22/24 18:13 Urine Opiates Screen NEGATIVE Urine Methadone Screen POSITIVE H Ur Barbiturates Screen POSITIVE H Ur Phencyclidine Scrn NEGATIVE Ur Amphetamines Screen NEGATIVE MDMA (Ecstasy) Screen NEGATIVE U Benzodiazepines Scrn NEGATIVE Urine Cocaine Screen NEGATIVE U Cannabinoids Screen POSITIVE H Ur Drug Screen Comment Discharge Plan Dx/Rx/DC Orders Clinical Impression: Alcohol dependence, Acute hypokalemia, Transaminitis, Marijuana dependence Disposition Disposition: Acute Care Hospital [facility] Discharge Date/Time: 05/22/24 20:57
[2024-05-22 19:14] LABS: Amphetamine Urine VISTA NEGATIVE (<1000 ng/mL); Barbiturate Urine VISTA POSITIVE (< 200 ng/mL); Benzodiazepine Urine VISTA NEGATIVE (< 200 ng/mL); Cocaine Urine VISTA NEGATIVE (< 300 ng/mL); Ecstacy Urine VISTA NEGATIVE (< 500 ng/mL); Methadone Urine VISTA POSITIVE (< 300 ng/mL); PCP Urine VISTA NEGATIVE (< 25 ng/mL); THC Urine VISTA POSITIVE (< 50 ng/mL); Vista UDS pH Range 6
--- NOTE | 2024-05-22 19:40 | EKG12_ITS ---
Test Reason : DYSRHYTHMIA Blood Pressure : */* mmHG Vent. Rate : 87 BPM Atrial Rate : 87 BPM P-R Int : 164 ms QRS Dur : 86 ms QT Int : 382 ms P-R-T Axes : 52 -20 49 degrees QTcB Int : 459 ms Normal sinus rhythm Nonspecific T wave abnormality Abnormal ECG Confirmed by Osorio Castillo ([id number]), international editorial producer SHREYA REYES ([id number]) on 05/25/2024 6:46:00 AM Referred By: Confirmed By: Osorio Castillo
--- NOTE | 2024-05-22 19:50 | PCM.HP.STD ---
HPI - General General Date of Admission: 05/22/24 Date of Service: 05/22/24 Chief Complaint: Wants Help with EtOH Detox. HPI Narrative YU DOHERTY, is a 33 M with a past medical history of tobacco abuse, history of heroin abuse (IV and snorting); on methadone 100 mg p.o. daily followed by the [facility] clinic, history of cannabis abuse, chronic alcohol abuse; with patient admitting to drinking 12 pints of 13% alcohol daily, history of admission here for detoxification from heroin and alcohol (2020), history of alcoholic pancreatitis, history of depression and anxiety, listed allergy to levetiracetam; (hives), history of renal calculi and history of alcoholic pancreatitis with admission to hospital in [facility] for several days ~2 weeks ago who presents to [facility] ER complaining of wanting help with alcohol detoxification. Mr. Doherty reports he has been heavily drinking since November 2023 and he has experienced worsening abdominal pain since his recent discharge from [facility] due to continued alcohol abuse with his last drink taken approximately 2 hours prior to arrival. He admits to associated abdominal pain, nausea and vomiting once this morning with bilious emesis and no signs of gross bleeding. He states his stool occasionally looks dark but he thinks this is secondary to Pepto-Bismol he uses as needed for dyspepsia. He denies a history of alcohol withdrawal seizures - but he is also noted to have an allergy to levetiracetam. In the ER he was diagnosed with acute alcohol intoxication with BRIJESH of 363 mg/dL with impending alcohol withdrawal in the setting of chronic alcohol abuse and laboratory evidence of alcoholic hepatitis with AST of 286 U/L, ALT of 133 U/L and alkaline phosphatase of 246 U/L hypokalemia of 2.8 mmol/L present on admission along with urine drug screen positive for methadone, barbiturates and cannabis with a slightly elevated lipase of 79 U/L and moderate thrombocytopenia of 144K present on admission and he was then admitted to the PCU for ongoing care for stay that is expected to extend beyond 2 midnights. [facility] Medical History Hx of renal calculi Pancreatitis Denies previous medical history Home Medications ?Medication ?Instructions ?Recorded ?Last Taken ?Type methadone 10 mg tablet 100 mg PO DAILY 05/22/24 Unknown History Allergy/AdvReac Type Severity Reaction Status Date / Time levetiracetam (From [facility]) Allergy HIVES Verified 05/22/24 14:54 Surgical History Hx of tonsillectomy Social History Smoking Status: Current every day smoker tobacco type: e-cigarettes ROS ROS Narrative Review of systems: Constitutional: Patient denies fever or chills. Eyes: Patient denies visual changes or discharge from eyes. ENT: Patient denies runny nose, sore throat or ear pain. Resp: Patient denies shortness of breath or cough. CV: Patient denies chest pain, palpitations or heart racing. GI: Patient admits to generalized abdominal pain with nausea and bilious emesis as per HPI. He denies diarrhea or constipation. : Patient denies dysuria or hematuria. MSK: Patient denies arthralgias or myalgias. Skin: Patient denies rash, abscess or jaundice. Psych: Patient denies symptoms of uncontrolled depression or anxiety. Neuro: Patient is noted to be intoxicated but he denies headache, paresthesias or focal neurologic deficits. Allergy: Patient denies lip swelling, tongue swelling or urticaria. Hematology: Patient denies easy bleeding or easy bruisability though he does admit to dark stools that were attributed to as needed use of Pepto-Bismol as per HPI. Endocrinology: Patient denies polyuria, polydipsia or polyphagia. 14 point review of systems otherwise negative save for positives noted above in HPI. Vital Signs Vital Signs Vital Signs: 05/22/24 14:53 Temperature 98.2 F Temperature Source Oral Pulse Rate 99 Respiratory Rate 16 Blood Pressure 112/82 H Blood Pressure Mean 92 Pulse Ox 100 Oxygen Delivery Method Room Air Weight Weight: 151 lb 8 oz Body Mass Index (BMI) 23.0 Physical Exam Const alert, oriented x3, no apparent distress, average body habitus and healthy appearing Constitutional Narrative: Patient is intoxicated and appears well. General Appearance: cooperative HEENT normocephalic, head/scalp atraumatic, hearing grossly normal bilaterally and moist oral mucous membranes Eyes PERRL and EOMs intact bilaterally Neck no lymphadenopathy and supple Resp normal respiratory effort, no retractions, no use of accessory muscles and clear to auscultation bilaterally Cardio regular rate and regular rhythm GI normal to inspection, nondistended, normoactive bowel sounds, soft to palpation, non-tender and non-distended Extremity normal to inspection, full ROM and no clubbing, cyanosis or edema Skin Skin Narrative: Patient has no evidence of rash, abscess or jaundice. Neuro oriented x3, CN's II-XII intact bilaterally, moves all extremities and no focal motor deficits Neuro Narrative: Patient is intoxicated. Sensorium / Orientation: awake, alert, oriented to person, oriented to place and oriented to time Speech: speech normal Psych affect normal Results Medical Records Data Attestation: I reviewed the patient's medical records Lab / Micro Data Attestation: I reviewed the patient's lab results. 05/22/24 20:09 05/22/24 20:09 Labs: Laboratory Results - last 24 hr 05/22/24 18:13: Urine Opiates Screen NEGATIVE, Urine Methadone Screen POSITIVE H, Ur Barbiturates Screen POSITIVE H, Ur Phencyclidine Scrn NEGATIVE, Ur Amphetamines Screen NEGATIVE, MDMA (Ecstasy) Screen NEGATIVE, U Benzodiazepines Scrn NEGATIVE, Urine Cocaine Screen NEGATIVE, U Cannabinoids Screen POSITIVE H, Ur Drug Screen Comment Assessment & Plan Assessment/Plan (1) Acute alcohol intoxication: QUALIFIERS: Complication of substance-induced condition: uncomplicated Qualified Code(s): F10.920 - Alcohol use, unspecified with intoxication, uncomplicated (2) Chronic alcohol abuse: (3) History of heroin abuse: (4) Alcoholic pancreatitis: QUALIFIERS: Chronicity: chronic Qualified Code(s): K86.0 - Alcohol-induced chronic pancreatitis (5) Alcoholic hepatitis without ascites: (6) Hypokalemia: (7) Tobacco abuse: (8) Cannabis abuse: PLAN: Plan 1. Acute EtOH Intoxication with BRIJESH of 363 mg/dL present on admission with impending alcohol withdrawal in the setting of Chronic EtOH Abuse; with patient admitting to drinking 12 pints of 13% alcohol daily and UDS positive for methadone, barbiturates and cannabis with patient chronically on methadone 100 mg p.o. daily followed by the [facility] due to history of heroin abuse - Admit to PCU for treatment under the EtOH detoxification protocol primarily consisting of phenobarbital taper. Give Phenergan IM as needed for nausea and vomiting but avoid Zofran as this agent is known to also cause potential QT prolongation. EtOH Cessation will be strongly encouraged. Watch for potential signs and symptoms of QT-prolongation with patient on concomitant phenobarbital and methadone - which is why this patient was admitted to PCU. 2. Recent history of alcoholic pancreatitis with admission to hospital in [facility] for several days ~2 weeks ago with intermittent abdominal pain, nausea and vomiting with bilious emesis likely due to ongoing EtOH Abuse and mildly elevated serum lipase of 79 U/L complicating #1 - Noted. Patient encouraged not to drink alcohol to prevent exacerbations of his recent and apparently severe acute alcoholic pancreatitis. 3. EtOH Hepatitis with AST of 286 U/L, ALT of 133 U/L and alkaline phosphatase of 246 U/L and moderate thrombocytopenia of 144K present on admission likely due to marrow suppression from EtOH compounding #1 & #2 - Continue supportive care and monitor for improvement. 4. Hypokalemia of 2.8 mmol/L present on admission adding to the medical complexity of #1 - #3 - Give supplemental KCl and then recheck level in a.m. to ensure improvement. 5. Tobacco abuse adding that to the burden of disease outlined from #1 - #4 - Tobacco Cessation will be strongly encouraged with nicotine patch offered to control cravings. 6. History of cannabis abuse - Cannabis Cessation will be strongly encouraged. 7. History of admission here for detoxification from heroin and alcohol (2020) - Noted. 8. History of depression and anxiety - Patient is currently not on pharmacologic therapy with apparent choice to self medicate with alcohol precipitating #1 - #3. 9. Listed allergy to levetiracetam; (hives) - Noted. 10. History of renal calculi - Noted. 11. DVT prophylaxis - Lovenox 40 mg sq daily. Total time: Approximately (but not less than) 75 minutes. Charges/Coding Visit Charges Inpatient E&M: 90834 Init Hosp L3
[2024-05-22 20:00] VITALS: BP 115/80; PULSE 76; RESP 16; O2SAT 96
[2024-05-22 20:16] LABS: Absolute Lymphocyte Count 2.41 X10^3/uL (0.83-4.51); Absolute Neutrophil Count 2.6 X10^3/uL (2.0-7.7); Basophil# 0.01 X10^3/uL; Basophil% 0.2 % (0-1); Eosinophil# 0.01 X10^3/uL; Eosinophils% 0.2 % (0-5); Hematocrit 43.2 % (40-54); Hemoglobin 14.4 g/dL (13.0-16.5); Lymphocyte # 2.41 X10^3/ul (0.83-4.51); Lymphocyte % 42.4 % (19-41); Mean Corp Hgb Conc 33.3 g/dL (32-36); Mean Corpuscular Hgb 31.9 pg (27.0-32.0); Mean Corpuscular Volume 95.8 fL (80-94); Mean Platelet Vol. 9.4 fl (6.2-12.0); Monocyte# 0.68 X10^3/uL; NRBC Flagged by Analyzer 0 % (0-5); Neutrophil # 2.56 X10^3/uL (2.7-7.7); Neutrophil % 44.8 % (47-70); Platelet Count 144 K/mm3 (150-450); RBC Distribution Width CV 14.5 % (11.6-14.6); RBC Distribution Width SD 49.5 fl (35.1-43.9); Red Blood Count 4.51 M/mm3 (4.6-6.2); White Blood Count 5.7 K/mm3 (4.4-11.0)
[2024-05-22 20:37] VITALS: BP 115/80; PULSE 76; RESP 16; TEMP 36.6; O2SAT 96
[2024-05-22] MEDS: Methadone 10 MG Tablet 100 MG PO (20:41)
[2024-05-22 20:54] LABS: ALB/GLOB Ratio 0.9 RATIO (0.9-2.4); AST(SGOT) 290 U/L (15-37); Alanine Aminotransfer ALT/SGPT 133 U/L (16-61); Albumin, Serum 4.2 g/dL (3.2-5.0); Alkaline Phosphatase 243 U/L (45-117); Anion Gap 10 (5-15); BUN 6 mg/dL (7-18); BUN/Creat Ratio 5.8 RATIO (10-20); Calcium,Total 8.8 mg/dL (8.5-10.1); Chloride 104 mmol/L (98-107); Creatinine, Serum 1.03 mg/dL (0.70-1.30); EST Glomerular Filtration Rate 88 mL/min (>60); Est Glom Filt Rate - Afr Amer 106 mL/min (>60); Estimated Creatinine Clearance 98.69 ml/min; Globulin 4.7 g/dL (2.2-4.2); Glucose 112 mg/dL (74-106); Potassium 2.8 mmol/L (3.5-5.1); Protein, Total 8.9 g/dL (6.4-8.2); Sodium Level 141 mmol/L (136-145)
[2024-05-22 21:01] LABS: AST(SGOT) 286 U/L (15-37); Alanine Aminotransfer ALT/SGPT 133 U/L (16-61); Albumin, Serum 4.3 g/dL (3.2-5.0); Alkaline Phosphatase 246 U/L (45-117); Bilirubin, Direct 0.61 mg/dL (0.00-0.30); Globulin 4.6 g/dL (2.2-4.2); Lipase 79 U/L (13-75); Protein, Total 8.9 g/dL (6.4-8.2)
[2024-05-22 21:11] VITALS: BMI 22.8
[2024-05-22 21:24] VITALS: BP 149/91; PULSE 99; RESP 15; TEMP 36.7; O2SAT 97
[2024-05-22 21:36] VITALS: RESP 15
[2024-05-22] MEDS: 0.9% Normal Saline (1000mL) 1,000 ML 125 ML IV (22:09)
[2024-05-22] MEDS: Phenobarbital 32.4 MG Tablet 64.8 MG PO (22:19)
[2024-05-22] MEDS: Potassium Chloride Oral Tablet 20 MEQ 40 MEQ PO (22:19)
[2024-05-22] MEDS: Famotidine 20 MG Tablet PO (22:19)
[2024-05-22 23:18] VITALS: PULSE 68
[2024-05-23] VITALS (10 sets, daily range): BP systolic 132–142; BP diastolic 76–101; PULSE 56–92; RESP 15–18; TEMP 36.6–37.1; O2SAT 95–99; BMI 22.8
[2024-05-23] MEDS: Phenobarbital 32.4 MG Tablet 64.8 MG PO ×6 (02:17→21:33)
[2024-05-23] MEDS: Gabapentin 300 MG Capsule PO ×2 (03:35→23:46)
[2024-05-23] MEDS: 0.9% Normal Saline (1000mL) 1,000 ML 125 ML IV (06:22)
[2024-05-23 07:35] LABS: Absolute Lymphocyte Count 1.59 X10^3/uL (0.83-4.51); Absolute Neutrophil Count 1.6 X10^3/uL (2.0-7.7); Basophil# 0.01 X10^3/uL; Basophil% 0.3 % (0-1); Eosinophil# 0.01 X10^3/uL; Eosinophils% 0.3 % (0-5); Hematocrit 41.2 % (40-54); Hemoglobin 13.4 g/dL (13.0-16.5); Lymphocyte # 1.59 X10^3/ul (0.83-4.51); Lymphocyte % 43.8 % (19-41); Mean Corp Hgb Conc 32.5 g/dL (32-36); Mean Corpuscular Hgb 31.5 pg (27.0-32.0); Mean Corpuscular Volume 96.7 fL (80-94); Mean Platelet Vol. 9.2 fl (6.2-12.0); Monocyte# 0.44 X10^3/uL; Monocyte% 12.1 % (0-10); NRBC Flagged by Analyzer 0 % (0-5); Neutrophil # 1.57 X10^3/uL (2.7-7.7); Neutrophil % 43.2 % (47-70); Platelet Count 114 K/mm3 (150-450); RBC Distribution Width CV 14.4 % (11.6-14.6); RBC Distribution Width SD 50.4 fl (35.1-43.9); Red Blood Count 4.26 M/mm3 (4.6-6.2); White Blood Count 3.6 K/mm3 (4.4-11.0)
--- NOTE | 2024-05-23 07:41 | PN.HOSP_ITS ---
Reason for Visit Reason for Visit: Diagnoses Hypokalemia (05/22/24) Alcohol abuse, uncomplicated (05/22/24) Alcohol use, unspecified with intoxication, uncomplicated (05/22/24) Opioid abuse, in remission (05/22/24) Cannabis abuse, uncomplicated (05/22/24) Alcoholic hepatitis without ascites (05/22/24) Alcohol-induced chronic pancreatitis (05/22/24) Tobacco use (05/22/24) Objective Data Objective Data Vital Signs: Vital Signs Temp Pulse Resp BP Pulse Ox O2 Del Method 97.9 F 59 L 15 132/95 H 96 Room Air 05/23/24 02:13 05/23/24 05:38 05/23/24 05:38 05/23/24 02:13 05/23/24 02:13 05/23/24 05:38 Oxygen Delivery Method Room Air Weight: 150 lb 2.157 oz Body Mass Index (BMI) 22.8 Intake & Output: Intake and Output for Last 24 Hours 05/21/24 05/22/24 05/23/24 23:59 23:59 23:59 Intake Total 1500 / 1500 Balance 1500 / 1500 Lab / Micro Data 05/23/24 07:15 05/23/24 07:15 Labs: Laboratory Results - last 24 hr 05/22/24 18:13: Urine Opiates Screen NEGATIVE, Urine Methadone Screen POSITIVE H , Ur Barbiturates Screen POSITIVE H, Ur Phencyclidine Scrn NEGATIVE, Ur Amphetamines Screen NEGATIVE, MDMA (Ecstasy) Screen NEGATIVE, U Benzodiazepines Scrn NEGATIVE, Urine Cocaine Screen NEGATIVE, U Cannabinoids Screen POSITIVE H, Ur Drug Screen Comment 05/22/24 20:09: WBC 5.7, RBC 4.51 L, Hgb 14.4, Hct 43.2, MCV 95.8 H, MCH 31.9, MCHC 33.3, RDW Std Deviation 49.5 H, RDW Coeff of Ida 14.5, Plt Count 144 L, MPV 9.4, Immature Gran % (Auto) 0.400, Neut % (Auto) 44.8 L, Lymph % (Auto) 42.4 H, [place] % (Auto) 12.0 H, Eos % (Auto) 0.2, Baso % (Auto) 0.2, Absolute Neuts (auto) 2.6, Absolute Lymphs (auto) 2.41, Nucleated RBC % 0, Sodium 141, Potassium 2.8 L , Chloride 104, Carbon Dioxide 28.0, Anion Gap 10, BUN 6 L, Creatinine 1.03, Estim Creat Clear Calc 98.69, Est GFR (MDRD) Af Amer 106, Est GFR (MDRD) Non-Af 88, BUN/Creatinine Ratio 5.8 L, Glucose 112 H, Calcium 8.8, Total Bilirubin 1.00 05/22/24 20:09: Total Bilirubin 1.00, Direct Bilirubin 0.61 H, AST 290 H 05/22/24 20:09: AST 286 H, ALT 133 H 05/22/24 20:09: ALT 133 H, Alkaline Phosphatase 243 H 05/22/24 20:09: Alkaline Phosphatase 246 H, Total Protein 8.9 H 05/22/24 20:09: Total Protein 8.9 H, Albumin 4.2 05/22/24 20:09: Albumin 4.3, Globulin 4.7 H 05/22/24 20:09: Globulin 4.6 H, Albumin/Globulin Ratio 0.9, Lipase 79 H, Ethyl Alcohol 363.0 H* 05/23/24 07:15: WBC 3.6 L, RBC 4.26 L, Hgb 13.4, Hct 41.2, MCV 96.7 H, MCH 31.5, MCHC 32.5, RDW Std Deviation 50.4 H, RDW Coeff of Ida 14.4, Plt Count 114 L, MPV 9.2, Immature Gran % (Auto) 0.300, Neut % (Auto) 43.2 L, Lymph % (Auto) 43.8 H, [place] % (Auto) 12.1 H, Eos % (Auto) 0.3, Baso % (Auto) 0.3, Absolute Neuts (auto) 1.6 L, Absolute Lymphs (auto) 1.59, Nucleated RBC % 0 Physical Exam Narrative Seen and examined in the morning. Patient is having tremors, shaking, not feeling good, restless anxiety. Denies abdominal pain/cramp. No dizziness. Denies seizure. Drinks alcohol heavily. Patient also on methadone for opioid substance rehab. Physical exam General: Alert, Oriented x3, Cooperative, sweating HEENT: Atraumatic, PERRLA, EOMI, Normocephalic Oral: No Gingival or Mucosal Lesions/ Ulcerations Neck: Supple, No JVD, Negative Carotid Bruits Chest wall/Lungs: Air entry diminished in bilateral lung bases. No crepitation/rhonchi Cardiovascular: Regular rate, Regular Rhythm, Normal S1, Normal S2, No M/G/R Abdomen: Bowel Sounds Present, Soft, Non Tender, Non-Distended : No dysuria. No renal angle tenderness. No suprapubic tenderness. Extremities: No edema, Capillary Refill Less than 3 Seconds Skin: No rashes, No breakdown Musculoskeletal: No Tenderness to Palpation of Joints or Extremities Neurological: Cranial nerves II-XII grossly intact, DTR 2+/4. No acute focal neurological deficit. Psych/Mental Status: Anxiety. Denies suicidal ideation/homicidal ideation. No hallucinations. Assessment & Plan Assessment/Plan (1) Acute alcohol intoxication: QUALIFIERS: Complication of substance-induced condition: u ncomplicated Qualified Code(s): F10.920 - Alcohol use, unspecified with intoxication, uncomplicated (2) Chronic alcohol abuse: (3) History of heroin abuse: (4) Alcoholic pancreatitis: QUALIFIERS: Chronicity: chronic Qualified Code(s): K86.0 - Alcohol-induced chronic pancreatitis (5) Alcoholic hepatitis without ascites: (6) Hypokalemia: (7) Tobacco abuse: (8) Cannabis abuse: PLAN: Plan 33-year-old gentleman was admitted with acute alcohol withdrawal symptoms. Drinks 12 pints of 13% alcohol per day, last drink was 2 hours ago prior to admission. Patient has been binge drinking since November 2021. First episode of alcoholic lunatic 2 weeks ago and was admitted in [facility] for several days. Vomited once prior to admission in the morning. No hematemesis. Stool looks dark. No history of withdrawal seizure. Takes methadone 1. Acute alcohol withdrawal syndrome with history of chronic alcohol use disorder with dependence and tolerance: Patient was admitted in a intoxicated state but currently in withdrawal. He is being admitted in PCU. Patient drinks 12 12 pints of 13% alcohol daily. Patient very dehydrated in the morning. 1 L of Ringer lactate bolus was given. U tox positive of methadone, barbiturates and cannabis with patient chronically on methadone 70 mg confirmed from the outpatient pharmacy by the pharmacist. Serum alcohol level was 246. Patient on phenobarbital based order set along with other adjunctive medications gabapentin, Bentyl, Vistaril, clonidine, Klonopin as needed for alcohol withdrawal symptom control. Patient is on thiamine and folate acid. [facility] monitor. conference planning manager [id number] consulted. 2. Acute on chronic alcoholic hepatitis with recent history of alcoholic pancreatitis: Patient was admitted in [facility] about 2 weeks ago. Currently does not have abdominal pain but he has intermittent abdominal pain, nausea and vomiting. Encourage cessation of alcohol. Transaminases are elevated AST more than ALT. Alkaline phosphatase 2046. Mild thrombocytopenia. . 3. Hypokalemia of 2.8 mmol/L present on admission: Potassium is being replaced. Last labs shows K3.5. Continue potassium replacement. Give supplemental KCl and then recheck level in a.m. to ensure improvement. Magnesium 1.7. Oral magnesium replacement ordered 4. Chronic tobacco use/cigarette smoker, cannabis use- Tobacco Cessation will be strongly encouraged with nicotine patch offered to control cravings. 5. History of depression and anxiety - Patient is currently not on pharmacologic therapy 6 DVT prophylaxis - Lovenox 40 mg sq daily. Charges/Coding Visit Charges Inpatient E&M: 70254 Subs Hosp L2
[2024-05-23 08:27] LABS: ALB/GLOB Ratio 0.9 RATIO (0.9-2.4); AST(SGOT) 203 U/L (15-37); Alanine Aminotransfer ALT/SGPT 98 U/L (16-61); Albumin, Serum 3.3 g/dL (3.2-5.0); Alkaline Phosphatase 190 U/L (45-117); Anion Gap 7 (5-15); BUN 7 mg/dL (7-18); BUN/Creat Ratio 9.1 RATIO (10-20); Bilirubin, Direct 0.56 mg/dL (0.00-0.30); Calcium,Total 8.4 mg/dL (8.5-10.1); Chloride 110 mmol/L (98-107); Creatinine, Serum 0.77 mg/dL (0.70-1.30); EST Glomerular Filtration Rate 123 mL/min (>60); Est Glom Filt Rate - Afr Amer 149 mL/min (>60); Estimated Creatinine Clearance 131.43 ml/min; Globulin 3.7 g/dL (2.2-4.2); Glucose 79 mg/dL (74-106); Magnesium 1.7 mg/dL (1.6-2.6); Phosphorus 2.5 mg/dL (2.5-4.9); Potassium 3.5 mmol/L (3.5-5.1); Sodium Level 142 mmol/L (136-145); Thyroid Stim Hormone (TSH) 0.273 uIU/mL (0.358-3.740)
[2024-05-23 09:19] LABS: International Normalized Ratio 1.2; Prothrombin Time (Protime)PT. 14.9 SECONDS (11.7-14.9)
[2024-05-23] MEDS: LORazepam 1 MG Tablet 2 MG PO ×2 (09:19→23:41)
[2024-05-23] MEDS: Methadone 10 MG Tablet 70 MG PO (09:36)
[2024-05-23] MEDS: Famotidine 20 MG Tablet PO ×2 (09:37→21:33)
[2024-05-23] MEDS: Thiamine Hydrochloride 100 MG Tablet PO (09:38)
[2024-05-23] MEDS: Enoxaparin 40 MG/0.4 ML Syringe SC (09:38)
[2024-05-23] MEDS: Folic Acid 1 MG Tablet PO (09:38)
[2024-05-23] MEDS: 0.9% Saline Lock 10 ML Syringe IV (10:16)
[2024-05-23] MEDS: Lactated Ringers 1,000 ML 999 ML IV (10:16)
--- NOTE | 2024-05-23 13:27 | ADDICTION ---
Met with patient to complete RAMP assessments. Pt reports he understands the severity of his use, however, he has no plans to follow up with any type of treatment. Pt reports he has a support system at home and he will just stop drinking. Clinician informed him about potential relapse risks.
[2024-05-23 17:10] LABS: Squamous Epithelial Cells - UA 0 SEEN /hpf (0-5)
[2024-05-23 17:21] LABS: Color, Urine Straw (Yellow); Glucose, Dipstick Normal (Normal); Ketone-Dipstick 15 mg/dl (Negative); Leukocyte Esterase-Dipstick 100 /ul (Negative); Nitrite-Dipstick Negative (Negative); Occult Blood-Urine Negative /ul (Negative); Protein-Dipstick 30 mg/dl (Negative); Specific Gravity, Urine 1.015 (1.002-1.030); Urine Clarity Sl. Cloudy (Clear); Urine Urobilinogen 8 mg/dl (Normal); Urine pH 6.5 (5.0 - 8.0)
[2024-05-23 17:28] LABS: Urine Bilirubin Dipstick 1 mg/dL (Negative)
[2024-05-23 17:41] LABS: Mucous, Urine 1+ /hpf (<or=2+)
[2024-05-23 17:42] LABS: White Blood Cells 25-50 SEEN /hpf (0-5)
[2024-05-23 17:43] LABS: Bacteria 1+ /hpf (None Seen)
[2024-05-23 17:44] LABS: Red Blood Cells-Urine 0-5 SEEN /hpf (0-5)
[2024-05-23] MEDS: Magnesium Chloride 64 MG Delay Rel.Tablet 128 MG PO ×2 (17:53→21:33)
[2024-05-23] MEDS: Na Biphos/Potassium Phosphate PACKET 1 PACKET PO (21:33)
[2024-05-24] VITALS (9 sets, daily range): BP systolic 131–137; BP diastolic 80–92; PULSE 64–90; RESP 18; TEMP 36.5–37.1; O2SAT 95–98; BMI 24.4
[2024-05-24] MEDS: Phenobarbital 32.4 MG Tablet 64.8 MG PO ×6 (01:38→21:50)
[2024-05-24] MEDS: proMETHazine 25 MG/ML Syringe IM (01:38)
[2024-05-24] MEDS: LORazepam 2 MG/ML Syringe IV (01:39)
[2024-05-24] MEDS: 0.9% Saline Lock 10 ML Syringe IV ×2 (01:39→21:50)
[2024-05-24] MEDS: Na Biphos/Potassium Phosphate PACKET 1 PACKET PO ×3 (06:17→21:50)
[2024-05-24] MEDS: Gabapentin 300 MG Capsule PO (06:17)
[2024-05-24 06:27] LABS: Absolute Lymphocyte Count 1.16 X10^3/uL (0.83-4.51); Basophil# 0.02 X10^3/uL; Basophil% 0.5 % (0-1); Eosinophil# 0.02 X10^3/uL; Eosinophils% 0.5 % (0-5); Hematocrit 43.6 % (40-54); Hemoglobin 14.2 g/dL (13.0-16.5); Lymphocyte # 1.16 X10^3/ul (0.83-4.51); Lymphocyte % 30.9 % (19-41); Mean Corp Hgb Conc 32.6 g/dL (32-36); Mean Corpuscular Hgb 31.8 pg (27.0-32.0); Mean Corpuscular Volume 97.5 fL (80-94); Mean Platelet Vol. 9.8 fl (6.2-12.0); Monocyte# 0.52 X10^3/uL; Monocyte% 13.9 % (0-10); NRBC Flagged by Analyzer 0 % (0-5); Neutrophil # 2.02 X10^3/uL (2.7-7.7); Neutrophil % 53.9 % (47-70); POSITIVE COUNT YES; Platelet Count 98 K/mm3 (150-450); RBC Distribution Width CV 14.2 % (11.6-14.6); Red Blood Count 4.47 M/mm3 (4.6-6.2); White Blood Count 3.8 K/mm3 (4.4-11.0)
[2024-05-24 06:35] LABS: Differential Indicated SCAN CRITERIA MET
[2024-05-24 07:06] LABS: ALB/GLOB Ratio 0.8 RATIO (0.9-2.4); AST(SGOT) 209 U/L (15-37); Alanine Aminotransfer ALT/SGPT 92 U/L (16-61); Albumin, Serum 3.1 g/dL (3.2-5.0); Alkaline Phosphatase 211 U/L (45-117); Anion Gap 7 (5-15); BUN 7 mg/dL (7-18); BUN/Creat Ratio 9.1 RATIO (10-20); Calcium,Total 8.9 mg/dL (8.5-10.1); Chloride 105 mmol/L (98-107); Creatinine, Serum 0.77 mg/dL (0.70-1.30); EST Glomerular Filtration Rate 123 mL/min (>60); Est Glom Filt Rate - Afr Amer 149 mL/min (>60); Estimated Creatinine Clearance 132.01 ml/min; Glucose 52 mg/dL (74-106); Magnesium 1.7 mg/dL (1.6-2.6); Phosphorus 2.5 mg/dL (2.5-4.9); Potassium 4.2 mmol/L (3.5-5.1); Protein, Total 7.1 g/dL (6.4-8.2); Sodium Level 138 mmol/L (136-145)
[2024-05-24 08:01] LABS: Differential Comment SCANNED
[2024-05-24 08:04] LABS: Platelet Estimate MOD DEC (ADEQ)
[2024-05-24] MEDS: Folic Acid 1 MG Tablet PO (08:40)
[2024-05-24] MEDS: Thiamine Hydrochloride 100 MG Tablet PO (08:40)
[2024-05-24] MEDS: Methadone 10 MG Tablet 70 MG PO (10:58)
[2024-05-24] MEDS: Magnesium Chloride 64 MG Delay Rel.Tablet 128 MG PO ×2 (11:01→21:50)
[2024-05-24] MEDS: Famotidine 20 MG Tablet PO ×2 (11:01→21:50)
[2024-05-24] MEDS: Enoxaparin 40 MG/0.4 ML Syringe SC (11:01)
--- NOTE | 2024-05-24 14:01 | PCM.PN.HOSP ---
Reason for Visit Reason for Visit: Diagnoses Hypokalemia (05/22/24) Alcohol abuse, uncomplicated (05/22/24) Alcohol use, unspecified with intoxication, uncomplicated (05/22/24) Opioid abuse, in remission (05/22/24) Cannabis abuse, uncomplicated (05/22/24) Alcoholic hepatitis without ascites (05/22/24) Alcohol-induced chronic pancreatitis (05/22/24) Tobacco use (05/22/24) Objective Data Objective Data Vital Signs: Vital Signs Temp Pulse Resp BP Pulse Ox O2 Del Method 98 F 90 18 133/82 H 98 Room Air 05/24/24 12:00 05/24/24 12:00 05/24/24 12:00 05/24/24 12:00 05/24/24 12:00 05/24/24 12:00 Oxygen Delivery Method Room Air Weight: 160 lb 11.472 oz Body Mass Index (BMI) 24.4 Intake & Output: Intake and Output for Last 24 Hours 05/22/24 05/23/24 05/24/24 23:59 23:59 23:59 Intake Total 3900.00 / 3900.00 400 / 400 Output Total 750 / 850 1000 / 1000 Balance 3150.00 / 3050.00 -600 / -600 Lab / Micro Data 05/24/24 05:58 05/24/24 05:58 Labs: Laboratory Results - last 24 hr 05/23/24 16:55: Urine Color Straw, Urine Clarity Sl. Cloudy, Urine pH 6.5, Ur Specific [place] 1.015, Urine Protein 30 H, Urine Glucose (UA) Normal, Urine Ketones 15 H, Urine Occult Blood Negative, Urine Nitrite Negative, Urine Bilirubin 1 H, Urine Urobilinogen 8 H, Ur Leukocyte Esterase 100 H, Urine RBC 0-5 SEEN, Urine WBC 25-50 SEEN, Ur Squamous Epith Cells 0 SEEN, Urine Bacteria 1+, Urine Mucus 1+ 05/24/24 05:58: WBC 3.8 L, RBC 4.47 L, Hgb 14.2, Hct 43.6, MCV 97.5 H, MCH 31.8, MCHC 32.6, RDW Std Deviation 50.0 H, RDW Coeff of Ida 14.2, Plt Count 98 L, MPV 9.8, Immature Gran % (Auto) 0.300, Neut % (Auto) 53.9, Lymph % (Auto) 30.9, [place] % (Auto) 13.9 H, Eos % (Auto) 0.5, Baso % (Auto) 0.5, Absolute Neuts (auto) 2.0, Absolute Lymphs (auto) 1.16, Nucleated RBC % 0, Differential Comment SCANNED, Platelet Estimate MOD DEC, Sodium 138, Potassium 4.2, Chloride 105, Carbon Dioxide 26.0, Anion Gap 7, BUN 7, Creatinine 0.77, Estim Creat Clear Calc 132.01, Est GFR (MDRD) Af Amer 149, Est GFR (MDRD) Non-Af 123, BUN/Creatinine Ratio 9.1 L, Glucose 52 L, Calcium 8.9, Phosphorus 2.5, Magnesium 1.7, Total Bilirubin 1.70 H, AST 209 H, ALT 92 H, Alkaline Phosphatase 211 H, Total Protein 7.1, Albumin 3.1 L, Globulin 4.0, Albumin/Globulin Ratio 0.8 L Physical Exam Narrative Seen and examined in the morning. Patient still has withdrawal symptoms of shaking and tremors, anxiety but slightly feeling better. Denies abdominal pain/muscle cramp. No dizziness. Denies seizure. Drinks alcohol heavily. Patient also on methadone for opioid substance rehab. Physical exam General: Alert, Oriented x3, Cooperative, anxious HEENT: Atraumatic, PERRLA, EOMI, Normocephalic Oral: No Gingival or Mucosal Lesions/ Ulcerations Neck: Supple, No JVD, Negative Carotid Bruits Chest wall/Lungs: Air entry diminished in bilateral lung bases. No crepitation/rhonchi Cardiovascular: Regular rate, Regular Rhythm, Normal S1, Normal S2, No M/G/R Abdomen: Bowel Sounds Present, Soft, Non Tender, Non-Distended : No dysuria. No renal angle tenderness. No suprapubic tenderness. Extremities: No edema, Capillary Refill Less than 3 Seconds Skin: No rashes, No breakdown Musculoskeletal: No Tenderness to Palpation of Joints or Extremities Neurological: Cranial nerves II-XII grossly intact, DTR 2+/4. No acute focal neurological deficit. Psych/Mental Status: Anxiety. Denies suicidal ideation/homicidal ideation. No hallucinations. Assessment & Plan Assessment/Plan (1) Acute alcohol intoxication: QUALIFIERS: Complication of substance-induced condition: uncomplicated Qualified Code(s): F10.920 - Alcohol use, unspecified with intoxication, uncomplicated (2) Chronic alcohol abuse: (3) History of heroin abuse: (4) Alcoholic pancreatitis: QUALIFIERS: Chronicity: chronic Qualified Code(s): K86.0 - Alcohol-induced chronic pancreatitis (5) Alcoholic hepatitis without ascites: (6) Hypokalemia: (7) Tobacco abuse: (8) Cannabis abuse: PLAN: Plan 33-year-old gentleman was admitted with acute alcohol withdrawal symptoms. Drinks 12 pints of 13% alcohol per day, last drink was 2 hours ago prior to admission. Patient has been binge drinking since November 2021. First episode of alcoholic lunatic 2 weeks ago and was admitted in [facility] for several days. Vomited once prior to admission in the morning. No hematemesis. Stool looks dark. No history of withdrawal seizure. Takes methadone 1. Acute alcohol withdrawal syndrome with history of chronic alcohol use disorder with dependence and tolerance: Patient was admitted in a intoxicated state but currently in withdrawal. He is being admitted in PCU. Patient drinks 12 12 pints of 13% alcohol daily. Patient very dehydrated in the morning. 1 L of Ringer lactate bolus was given. U tox positive of methadone, barbiturates and cannabis with patient chronically on methadone 70 mg confirmed from the outpatient pharmacy by the pharmacist. Serum alcohol level was 246. Patient on phenobarbital based order set along with other adjunctive medications gabapentin, Bentyl, Vistaril, clonidine, Klonopin as needed for alcohol withdrawal symptom control. Patient is on thiamine and folate acid. [facility] monitor. configuration management manager [id number] consulted. 05/24: Patient is still very symptomatic with alcohol withdrawal symptoms. He is lethargic and drowsy. Nursing charted [facility]WA 2. Continue above treatment. 2. Acute on chronic alcoholic hepatitis with recent history of alcoholic pancreatitis: Patient was admitted in [facility] about 2 weeks ago. Currently does not have abdominal pain but he has intermittent abdominal pain, nausea and vomiting. Encourage cessation of alcohol. Transaminases are elevated AST more than ALT. Alkaline phosphatase 2046. Mild thrombocytopenia. 05/25: Improvement in AST and ALT but alkaline phosphatase change and total bilirubin went up. ALT AST alkaline phosphatase are elevated. Total bilirubin 1.7. Monitor liver chemistry daily. 3. Hypokalemia of 2.8 mmol/L present on admission: Potassium is being replaced. Last labs shows K3.5. Continue potassium replacement. Give supplemental KCl and then recheck level in a.m. to ensure improvement. Magnesium 1.7. Oral magnesium replacement ordered 05/24: Hypokalemia is corrected 4. Chronic tobacco use/cigarette smoker, cannabis use- Tobacco Cessation will be strongly encouraged with nicotine patch offered to control cravings. 5. History of depression and anxiety - Patient is currently not on pharmacologic therapy 6 DVT prophylaxis - Lovenox 40 mg sq daily. Charges/Coding Visit Charges Inpatient E&M: 57268 Subs Hosp L2
[2024-05-25] MEDS: Phenobarbital 32.4 MG Tablet 64.8 MG PO ×2 (02:25→06:04)
[2024-05-25 04:00] VITALS: BP 138/95; PULSE 67; RESP 16; TEMP 37.1; O2SAT 97
[2024-05-25 04:28] LABS: Absolute Lymphocyte Count 0.96 X10^3/uL (0.83-4.51); Basophil# 0.01 X10^3/uL; Basophil% 0.3 % (0-1); Eosinophil# 0.04 X10^3/uL; Eosinophils% 1.1 % (0-5); Hematocrit 44.7 % (40-54); Hemoglobin 14.5 g/dL (13.0-16.5); Lymphocyte # 0.96 X10^3/ul (0.83-4.51); Lymphocyte % 27.4 % (19-41); Mean Corp Hgb Conc 32.4 g/dL (32-36); Mean Corpuscular Hgb 31.6 pg (27.0-32.0); Mean Corpuscular Volume 97.4 fL (80-94); Mean Platelet Vol. 9.8 fl (6.2-12.0); Monocyte# 0.48 X10^3/uL; Monocyte% 13.7 % (0-10); NRBC Flagged by Analyzer 0 % (0-5); Neutrophil # 2.01 X10^3/uL (2.7-7.7); Neutrophil % 57.2 % (47-70); POSITIVE COUNT YES; Platelet Count 95 K/mm3 (150-450); RBC Distribution Width CV 14.5 % (11.6-14.6); RBC Distribution Width SD 50.4 fl (35.1-43.9); Red Blood Count 4.59 M/mm3 (4.6-6.2); White Blood Count 3.5 K/mm3 (4.4-11.0)
[2024-05-25 04:53] VITALS: BMI 24.3
[2024-05-25] MEDS: Gabapentin 300 MG Capsule PO (06:46)
--- NOTE | 2024-05-25 07:38 | NURSING ---
pt left ama. signed papers.
== END 2024-05-25 07:45 | disposition left against medical advice (07) | DRG 770 ==
LOC: ED 19:23 → PCU 20:38
PROVIDERS: Internal Medicine; Physician Assistant; Admitting Provider Internal Medicine; Emergency Provider Emergency Medicine; Visit Provider Family Medicine
DX: F10.229 Alcohol dependence with intoxication, unspecified (principal); K86.0 Alcohol-induced chronic pancreatitis; K70.10 Alcoholic hepatitis without ascites; F12.10 Cannabis abuse, uncomplicated; F11.11 Opioid abuse, in remission; E87.6 Hypokalemia; F17.210 Nicotine dependence, cigarettes, uncomplicated; F17.290 Nicotine dependence, other tobacco product, uncomplicated; E86.0 Dehydration; Z53.29 Procedure and treatment not carried out because of patient's decision for other reasons; Y90.8 Blood alcohol level of 240 mg/100 ml or more; F10.239 Alcohol dependence with withdrawal, unspecified; Z79.891 Long term (current) use of opiate analgesic
CPT/HCPCS: 36415; 80048; 80053; 80076; 80307; 81001; 82077; 82248; 83690; 83735; 84100; 84443; 85025; 85027; 85610; 93005; 99284; J7030; J7120; A4216

== ENCOUNTER 2024-06-20 11:46 | Inpatient (IN) | payer MEDICAID, SELFPAY ==
[2024-06-20 11:47] VITALS: BP 142/101; PULSE 70; RESP 16; TEMP 36.8; O2SAT 98; BMI 22.2
--- NOTE | 2024-06-20 12:49 | EDS_ITS ---
HPI History of Present Illness Chief Complaint: Substance Abuse Informant: patient and spouse/S.O. 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 Drinks 6-9 bottles of 13% alcohol daily. Said he had a problem since August a year ago. Was admitted for detox a month or 2 ago but left AMA. He said he is not ready to accept the treatment. Prior history of pancreatitis denies abdominal pain. He currently is involved with the methadone clinic. Prior similar symptoms: Yes Recent Illness/Hospitalization: Yes PFSH PFSH Medical History Hx of renal calculi Pancreatitis Denies previous medical history Home Medications ?Medication ?Instructions ?Recorded ?Last Taken ?Type methadone 10 mg tablet 100 mg PO DAILY 05/22/24 06/20/24 History Allergy/AdvReac Type Severity Reaction Status Date / Time levetiracetam (From [facility]) Allergy HIVES Verified 06/20/24 11:48 Surgical History Hx of tonsillectomy Social History Smoking Status: Current every day smoker tobacco type: e-cigarettes ROS ROS ED ROS Narrative Nausea vomiting. Constitutional Constitutional ED: Denies chills or fever(s) Eyes Eyes: Denies blurry vision ENT ENT ED: Denies ear pain Cardiovascular Cardiovascular: Denies chest pain Respiratory/Chest Respiratory/Chest: Denies cough or dyspnea Gastrointestinal Gastrointestinal: Reports nausea and vomiting; Denies abdominal pain, constipation, diarrhea or melena Genitourinary Genitourinary ED: Denies dysuria Musculoskeletal Musculoskeletal: Denies arthralgias Integumentary Denies abscess or Abrasions Neurologic Neurologic: Denies headache(s) Psychiatric Psychiatric: Denies anxiety or depression Endocrine Endocrinology: Denies cold intolerance Hematologic/Lymphatic Hematologic/Lymphatic: Denies easy bleeding, easy bruising or lymphadenopathy Allergic/Immunologic Allergic/Immunologic ED: Denies mouth swelling, tongue swelling or urticaria EXAM Physical Exam Narrative Exam Narrative: 33-year-old male no acute distress. Female present in the room. Vital signs are stable he is afebrile. He does not look septic toxic or any distress. H EENT exam pupils round react light. Moist mucous membranes. No trauma. Neck nontender. Lungs clear to auscultation bilaterally. Heart regular rate and rhythm rate about 70 no murmur. Chest wall ribs nontender. Abdomen soft nontender. No peritoneal signs. Moving all 4 extremities. Normal strength. Normal range of motion. No deformity. No edema. Back nontender. Neurologically is awake alert no focal motor deficits. Const Vital Signs: 06/20/24 11:47 06/20/24 13:31 Temperature 98.2 F 97.8 F Temperature Source Oral Oral Pulse Rate 70 90 Respiratory Rate 16 16 Blood Pressure 142/101 H 138/100 H Blood Pressure Mean 114 112 Blood Pressure Source Monitor Blood Pressure Position Semi-Fowlers Blood Pressure Location Right Arm Pulse Ox 98 93 Oxygen Delivery Method Room Air Room Air Positive well nourished and well developed; Negative for obese, cachectic, contractures or unkempt General Appearance ED: well developed and NAD; Negative for unkempt, cachectic, contractures or pallor Nutritional Appearance: Negative for cachectic or obese HEENT Reports moist mucous membranes atraumatic; Negative for trauma or tenderness Eyes PERRL and EOMs intact bilaterally Neck no lymphadenopathy, supple and no JVD Lymph Lymphatic: no lymphadenopathy noted Chest Wall inspection of chest normal and palpation of chest normal Resp normal respiratory effort and clear to auscultation bilaterally Auscultation: Negative for rales, rhonchi or wheezes Cardio regular rate, regular rhythm, S1 normal heart sound, S2 normal heart sound and no murmurs GI soft to palpation, non-tender, non-distended and no masses Palpation: Negative for tender or guarding Back/Spine no CVA tenderness Extremity General Extremety ED: Negative for edema or tenderness General Extremity: Negative for edema Neuro oriented x3 and CN's II-XII intact bilaterally Sensorium / Orientation: alert, oriented to person, oriented to place and oriented to time; Negative for confused, lethargic or stuporous Motor Exam: strength 5/5 throughout; Negative for general weakness or strength abnormal Psych mental status grossly normal and thought process normal Appearance: Negative for unkempt Attitude: No belligerent, No agitated, No aggressive and No hostile Mood & Affect: Negative for depressed, anxious or tearful Skin General Skin Exam: Negative for jaundice or pallor Lesions: no lesions Rashes: no rashes MDM MDM MDM Narrative Medical decision making narrative: 33-year-old male history of alcohol abuse requesting inpatient detox. Screening labs being obtained. Exam benign. Hospitalist on page. History & Record Review Discussion w/independent historian: Patient and Family Additional record(s) reviewed:: Prior inpatient record, Prior outpatient record, Prior ED visit and Prior labs Lab Data Attestation: I reviewed the patient's lab results. Lab results narrative: Tox screen positive for methadone which she is taking, barbiturates and cannabis. CBC and white count of 4. H&H 13 and 41. Platelets 97,000. Electrolytes show a gap 10. BUN is 6 creatinine 0.85. Glucose 102. Liver enzymes are elevated with total bilirubin 2. AST of 430. ALT 130. Alk phos 229. Alcohol level is elevated to 71 consistent with acute intoxication. Labs: Laboratory Results - last 24 hr 06/20/24 06/20/24 12:51 13:25 WBC 4.0 L RBC 4.34 L Hgb 13.8 Hct 41.5 MCV 95.6 H MCH 31.8 MCHC 33.3 RDW Std Deviation 53.5 H RDW Coeff of Ida 15.0 H Plt Count 97 L MPV 11.6 Immature Gran % (Auto) 0.300 Neut % (Auto) 52.4 Lymph % (Auto) 35.3 [place] % (Auto) 11.0 H Eos % (Auto) 0.5 Baso % (Auto) 0.5 Absolute Neuts (auto) 2.1 Absolute Lymphs (auto) 1.41 Nucleated RBC % 0 Sodium 136 Potassium 3.8 Chloride 101 Carbon Dioxide 25.0 Anion Gap 10 BUN 6 L Creatinine 0.85 Estim Creat Clear Calc 116.18 Est GFR (MDRD) Af Amer 132 Est GFR (MDRD) Non-Af 109 BUN/Creatinine Ratio 7.0 L Glucose 102 Calcium 9.2 Total Bilirubin 2.00 H AST 430 H ALT 130 H Alkaline Phosphatase 229 H Total Protein 8.1 Albumin 3.4 Globulin 4.7 H Albumin/Globulin Ratio 0.7 L Urine Opiates Screen NEGATIVE Urine Methadone Screen POSITIVE H Ur Barbiturates Screen POSITIVE H Ur Phencyclidine Scrn NEGATIVE Ur Amphetamines Screen NEGATIVE MDMA (Ecstasy) Screen NEGATIVE U Benzodiazepines Scrn NEGATIVE Urine Cocaine Screen NEGATIVE U Cannabinoids Screen POSITIVE H Ur Drug Screen Comment Ethyl Alcohol 271.0 Discharge Plan Dx/Rx/DC Orders Clinical Impression: Alcohol abuse, History of heroin abuse, Admitted to alcohol detoxification center Disposition Disposition: Acute Care Hospital [facility]
[2024-06-20 13:15] LABS: Amphetamine Urine VISTA NEGATIVE (<1000 ng/mL); Barbiturate Urine VISTA POSITIVE (< 200 ng/mL); Benzodiazepine Urine VISTA NEGATIVE (< 200 ng/mL); Cocaine Urine VISTA NEGATIVE (< 300 ng/mL); Ecstacy Urine VISTA NEGATIVE (< 500 ng/mL); Methadone Urine VISTA POSITIVE (< 300 ng/mL); PCP Urine VISTA NEGATIVE (< 25 ng/mL); THC Urine VISTA POSITIVE (< 50 ng/mL); Vista UDS pH Range 6
[2024-06-20 13:31] VITALS: BP 138/100; PULSE 90; RESP 16; TEMP 36.6; O2SAT 93
[2024-06-20 13:37] LABS: Absolute Lymphocyte Count 1.41 X10^3/uL (0.83-4.51); Absolute Neutrophil Count 2.1 X10^3/uL (2.0-7.7); Basophil# 0.02 X10^3/uL; Basophil% 0.5 % (0-1); Eosinophil# 0.02 X10^3/uL; Eosinophils% 0.5 % (0-5); Hematocrit 41.5 % (40-54); Hemoglobin 13.8 g/dL (13.0-16.5); Lymphocyte # 1.41 X10^3/ul (0.83-4.51); Lymphocyte % 35.3 % (19-41); Mean Corp Hgb Conc 33.3 g/dL (32-36); Mean Corpuscular Hgb 31.8 pg (27.0-32.0); Mean Corpuscular Volume 95.6 fL (80-94); Mean Platelet Vol. 11.6 fl (6.2-12.0); Monocyte# 0.44 X10^3/uL; NRBC Flagged by Analyzer 0 % (0-5); Neutrophil # 2.09 X10^3/uL (2.7-7.7); Neutrophil % 52.4 % (47-70); POSITIVE COUNT YES; Platelet Count 97 K/mm3 (150-450); RBC Distribution Width SD 53.5 fl (35.1-43.9); Red Blood Count 4.34 M/mm3 (4.6-6.2)
[2024-06-20 13:52] LABS: ALB/GLOB Ratio 0.7 RATIO (0.9-2.4); AST(SGOT) 430 U/L (15-37); Alanine Aminotransfer ALT/SGPT 130 U/L (16-61); Albumin, Serum 3.4 g/dL (3.2-5.0); Alkaline Phosphatase 229 U/L (45-117); Anion Gap 10 (5-15); BUN 6 mg/dL (7-18); Calcium,Total 9.2 mg/dL (8.5-10.1); Chloride 101 mmol/L (98-107); Creatinine, Serum 0.85 mg/dL (0.70-1.30); EST Glomerular Filtration Rate 109 mL/min (>60); Est Glom Filt Rate - Afr Amer 132 mL/min (>60); Estimated Creatinine Clearance 116.18 ml/min; Globulin 4.7 g/dL (2.2-4.2); Glucose 102 mg/dL (74-106); Potassium 3.8 mmol/L (3.5-5.1); Protein, Total 8.1 g/dL (6.4-8.2); Sodium Level 136 mmol/L (136-145)
[2024-06-20 14:30] VITALS: BP 141/92; PULSE 86; RESP 15; TEMP 36.7; O2SAT 98
--- NOTE | 2024-06-20 14:36 | PCM.HP.STD ---
HPI - General General Date of Admission: 06/20/24 HPI Narrative YU DOHERTY, is a 33 M who presents to the hospital requesting detox from alcohol. He used to use heroin and is currently on methadone but says that now he drinks. He drinks about 6-9 bottles of 13% alcohol every day. He did have a stay about a month ago where he left AMA so if he leaves again AMA and he cannot be readmitted for another 60 days. [facility] Medical History Hx of renal calculi Pancreatitis Denies previous medical history Home Medications ?Medication ?Instructions ?Recorded ?Last Taken ?Type methadone 10 mg tablet 100 mg PO DAILY 05/22/24 06/20/24 History Allergy/AdvReac Type Severity Reaction Status Date / Time levetiracetam (From [facility]) Allergy HIVES Verified 06/20/24 11:48 Family History (Updated 06/20/24 @ 14:[address] David Mcguire MD) Other Cancer Hypertension Surgical History Hx of tonsillectomy Social History Smoking Status: Current every day smoker tobacco type: e-cigarettes ROS Constitutional Constitutional: Denies chills, fatigue, fever(s) or malaise Eyes Eyes: Denies blurry vision ENT HEENT: Denies headache(s) or nasal discharge Cardiovascular Cardiovascular: Denies chest pain, dyspnea on exertion or syncope Respiratory/Chest Respiratory/Chest: Denies cough, shortness of breath at rest or shortness of breath with exertion Gastrointestinal Gastrointestinal: Reports nausea and vomiting; Denies constipation or diarrhea Genitourinary Genitourinary: Denies dysuria Neurologic Neurologic: Denies focal weakness, numbness or tremor(s) Psychiatric Psychiatric: Denies anxiety or depression Vital Signs Vital Signs Vital Signs: 06/20/24 11:47 06/20/24 13:31 06/20/24 14:30 Temperature 98.2 F 97.8 F 98.1 F Temperature Source Oral Oral Pulse Rate 70 90 86 Respiratory Rate 16 16 15 Blood Pressure 142/101 H 138/100 H 141/92 H Blood Pressure Mean 114 112 108 Blood Pressure Source Monitor Blood Pressure Position Semi-Fowlers Blood Pressure Location Right Arm Pulse Ox 98 93 98 Oxygen Delivery Method Room Air Room Air Weight Weight: 146 lb 8 oz Body Mass Index (BMI) 22.2 Physical Exam Narrative General: Alert, Oriented x3, Cooperative, No apparent distress HEENT: Atraumatic, PERRLA, EOMI, Normocephalic Oral: Moist Mucosa Neck: Supple, No JVD Lungs: Clear to auscultation, Normal air movement, No rhonchi, No wheeze, No rales Cardiovascular: Regular rate, Regular Rhythm, Normal S1, Normal S2, No murmurs Abdomen: Soft, Non Tender, Non-Distended, No Hepato-splenomegaly Extremities: No edema, Capillary Refill Less than 3 Seconds Skin: No rashes, No breakdown Musculoskeletal: No Tenderness to Palpation of Joints or Extremities Neurological: No focal neurological deficits, Motor Exam 5/5 strength throughout, Sensory exam intact to light touch and pain Psych/Mental Status: Normal Affect, Appropriate Results Lab / Micro Data 06/20/24 13:25 06/20/24 13:25 Labs: Laboratory Results - last 24 hr 06/20/24 12:51: Urine Opiates Screen NEGATIVE, Urine Methadone Screen POSITIVE H, Ur Barbiturates Screen POSITIVE H, Ur Phencyclidine Scrn NEGATIVE, Ur Amphetamines Screen NEGATIVE, MDMA (Ecstasy) Screen NEGATIVE, U Benzodiazepines Scrn NEGATIVE, Urine Cocaine Screen NEGATIVE, U Cannabinoids Screen POSITIVE H, Ur Drug Screen Comment 06/20/24 13:25: WBC 4.0 L, RBC 4.34 L, Hgb 13.8, Hct 41.5, MCV 95.6 H, MCH 31.8, MCHC 33.3, RDW Std Deviation 53.5 H, RDW Coeff of Ida 15.0 H, Plt Count 97 L, MPV 11.6, Immature Gran % (Auto) 0.300, Neut % (Auto) 52.4, Lymph % (Auto) 35.3, [place] % (Auto) 11.0 H, Eos % (Auto) 0.5, Baso % (Auto) 0.5, Absolute Neuts (auto) 2.1, Absolute Lymphs (auto) 1.41, Nucleated RBC % 0, Sodium 136, Potassium 3.8, Chloride 101, Carbon Dioxide 25.0, Anion Gap 10, BUN 6 L, Creatinine 0.85, Estim Creat Clear Calc 116.18, Est GFR (MDRD) Af Amer 132, Est GFR (MDRD) Non-Af 109, BUN/Creatinine Ratio 7.0 L, Glucose 102, Calcium 9.2, Total Bilirubin 2.00 H, AST 430 H, ALT 130 H, Alkaline Phosphatase 229 H, Total Protein 8.1, Albumin 3.4, Globulin 4.7 H, Albumin/Globulin Ratio 0.7 L, Ethyl Alcohol 271.0 Assessment & Plan Assessment/Plan (1) Acute alcohol intoxication: PLAN: Plan 1. Alcohol abuse requesting detox/elevated LFTs ? He left AMA 1 month ago notified that if he leaves AMA again he will not be discharged from the next 30 to 60 days ? Continue with his methadone ? Continue with the alcohol withdrawal protocol ? Will have him follow-up with 180 ? LFTs are elevated secondary to his alcohol use DVT: Ambulation Charges/Coding Visit Charges Inpatient E&M: 72814 Init Hosp L2
[2024-06-20 15:08] VITALS: BMI 21.7
[2024-06-20 15:20] VITALS: BP 148/100; PULSE 84; RESP 16; TEMP 36.7; O2SAT 99
[2024-06-20] MEDS: Phenobarbital 32.4 MG Tablet 64.8 MG PO ×3 (15:33→21:43)
[2024-06-20] MEDS: Dicyclomine 10 MG Capsule 20 MG PO (21:43)
[2024-06-20] MEDS: Gabapentin 300 MG Capsule PO (21:43)
[2024-06-20 21:44] VITALS: BP 142/100; PULSE 77; RESP 17; TEMP 36.8; O2SAT 99
[2024-06-21 02:58] VITALS: BP 155/102; PULSE 58; RESP 17; TEMP 36.8; O2SAT 96
[2024-06-21] MEDS: Phenobarbital 32.4 MG Tablet 64.8 MG PO ×6 (02:58→21:41)
[2024-06-21] MEDS: Ondansetron 8 MG Tablet PO ×2 (03:01→21:42)
[2024-06-21] MEDS: hydrOXYzine PAM 25 MG Capsule 50 MG PO ×2 (03:02→08:32)
[2024-06-21 07:21] VITALS: BP 132/82; PULSE 58; RESP 16; TEMP 36.5; O2SAT 97
--- NOTE | 2024-06-21 07:32 | NURSING ---
pt a&ox3. no distress noted. s/s of withdrawl evaluated. noted sl anxiety. pt refused all PRNs at this time. pt denies all needs. call light within reach. TUBE [employer]NER documentation reviewed.
--- NOTE | 2024-06-21 08:02 | PN.HOSP_ITS ---
Subjective Subjective CIWA score 14 Objective Data Objective Data Vital Signs: Vital Signs Temp Pulse Resp BP Pulse Ox O2 Del Method 98.2 F 58 L 17 155/102 H 96 Room Air 06/21/24 02:58 06/21/24 02:58 06/21/24 02:58 06/21/24 02:58 06/21/24 02:58 06/21/24 03:00 Oxygen Delivery Method Room Air Weight: 142 lb 12.8 oz Body Mass Index (BMI) 21.7 Intake & Output: Intake and Output for Last 24 Hours 06/20/24 06/21/24 06/22/24 03:59 03:59 03:59 Intake Total 240 / 240 Balance 240 / 240 Lab / Micro Data 06/20/24 13:25 06/20/24 13:25 Labs: Laboratory Results - last 24 hr 06/20/24 12:51: Urine Opiates Screen NEGATIVE, Urine Methadone Screen POSITIVE H , Ur Barbiturates Screen POSITIVE H, Ur Phencyclidine Scrn NEGATIVE, Ur Amphetamines Screen NEGATIVE, MDMA (Ecstasy) Screen NEGATIVE, U Benzodiazepines Scrn NEGATIVE, Urine Cocaine Screen NEGATIVE, U Cannabinoids Screen POSITIVE H, Ur Drug Screen Comment 06/20/24 13:25: WBC 4.0 L, RBC 4.34 L, Hgb 13.8, Hct 41.5, MCV 95.6 H, MCH 31.8, MCHC 33.3, RDW Std Deviation 53.5 H, RDW Coeff of Ida 15.0 H, Plt Count 97 L, MPV 11.6, Immature Gran % (Auto) 0.300, Neut % (Auto) 52.4, Lymph % (Auto) 35.3, [place] % (Auto) 11.0 H, Eos % (Auto) 0.5, Baso % (Auto) 0.5, Absolute Neuts (auto) 2.1, Absolute Lymphs (auto) 1.41, Nucleated RBC % 0, Sodium 136, Potassium 3.8, Chloride 101, Carbon Dioxide 25.0, Anion Gap 10, BUN 6 L, Creatinine 0.85, Estim Creat Clear Calc 116.18, Est GFR (MDRD) Af Amer 132, Est GFR (MDRD) Non-Af 109, BUN/Creatinine Ratio 7.0 L, Glucose 102, Calcium 9.2, Total Bilirubin 2.00 H, A ST 430 H, ALT 130 H, Alkaline Phosphatase 229 H, Total Protein 8.1, Albumin 3.4, Globulin 4.7 H, Albumin/Globulin Ratio 0.7 L, Ethyl Alcohol 271.0 Physical Exam Narrative General: Alert, Oriented x3, Cooperative, No apparent distress HEENT: Atraumatic, PERRLA, EOMI, Normocephalic Oral: Moist Mucosa Neck: Supple, No JVD Lungs: Clear to auscultation, Normal air movement, No rhonchi, No wheeze, No rales Cardiovascular: Regular rate, Regular Rhythm, Normal S1, Normal S2, No murmurs Abdomen: Soft, Non Tender, Non-Distended, No Hepato-splenomegaly Extremities: No edema, Capillary Refill Less than 3 Seconds Skin: No rashes, No breakdown Musculoskeletal: No Tenderness to Palpation of Joints or Extremities Neurological: No focal neurological deficits, Motor Exam 5/5 strength throughout, Sensory exam intact to light touch and pain Psych/Mental Status: Anxious Assessment & Plan Assessment/Plan (1) Acute alcohol intoxication: PLAN: Plan 1. Alcohol abuse requesting detox/elevated LFTs ? He left [facility] 1 month ago notified that if he leaves [facility] again he will not be discharged from the next 30 to 60 days ? Continue with his methadone ? Continue with the alcohol withdrawal protocol ? Will have him follow-up with 180 ? LFTs are elevated secondary to his alcohol use DVT: Ambulation Charges/Coding Visit Charges Inpatient E&M: 33191 Subs Hosp L2
[2024-06-21] MEDS: Folic Acid 1 MG Tablet PO (08:30)
[2024-06-21] MEDS: Thiamine Hydrochloride 100 MG Tablet PO (08:30)
[2024-06-21] MEDS: Methadone 10 MG Tablet 100 MG PO (10:10)
[2024-06-21 11:21] VITALS: BP 139/85; PULSE 56; RESP 16; TEMP 36.3; O2SAT 98
[2024-06-21 15:21] VITALS: BP 133/73; PULSE 73; RESP 16; TEMP 36.6; O2SAT 98
[2024-06-21 21:30] VITALS: BP 135/93; PULSE 63; RESP 16; TEMP 36.8; O2SAT 96
[2024-06-21] MEDS: 0.9% Saline Lock 10 ML Syringe IV (21:41)
[2024-06-21] MEDS: Gabapentin 300 MG Capsule PO (21:42)
[2024-06-22 02:05] VITALS: BP 122/76; PULSE 61; RESP 16; TEMP 36.8; O2SAT 95
[2024-06-22] MEDS: hydrOXYzine PAM 25 MG Capsule 50 MG PO ×4 (02:06→19:59)
[2024-06-22] MEDS: Phenobarbital 32.4 MG Tablet 64.8 MG PO ×6 (02:06→21:46)
[2024-06-22] MEDS: Thiamine Hydrochloride 100 MG Tablet PO (07:28)
[2024-06-22] MEDS: Folic Acid 1 MG Tablet PO (07:28)
[2024-06-22] MEDS: Gabapentin 300 MG Capsule PO (07:33)
[2024-06-22 08:39] VITALS: BP 126/90; PULSE 66; RESP 16; TEMP 36.7; O2SAT 98
--- NOTE | 2024-06-22 09:17 | PCM.PN.HOSP ---
Subjective Subjective No issues overnight, CIWA score of 8 Objective Data Objective Data Vital Signs: Vital Signs Temp Pulse Resp BP Pulse Ox O2 Del Method 98.1 F 66 16 126/90 H 98 Room Air 06/22/24 08:39 06/22/24 08:39 06/22/24 08:39 06/22/24 08:39 06/22/24 08:39 06/22/24 08:39 Oxygen Delivery Method Room Air Weight: 142 lb 12.8 oz Body Mass Index (BMI) 21.7 Intake & Output: Intake and Output for Last 24 Hours 06/21/24 06/22/24 06/23/24 03:59 03:59 03:59 Intake Total 240 / 240 600 / 600 600 / 600 Balance 240 / 240 600 / 600 600 / 600 Medical Nutrition Assessment Dietitian: Malnutrition Criteria Met Start: 06/21/24 11:31 Freq: Status: Active Protocol: Document 06/21/24 11:31 GERALDINE (Rec: 06/21/24 11:32 GERALDINE [id number]) Nutrition Malnutrition Evidence of Malnutrition Exists Yes Malnutrition (severe): Social/Behavioral/ Environmental Evidenced By Suboptimal Energy Intake ( Severe),Weight Loss (Severe) Clinical Problem Acute Disease or Injury Related Malnutrition Etiology related to etoh abuse and suboptimal energy intake Signs/Symptoms as evidenced by ~14% unintended wt loss and po intake meeting <75% of est nutritional needs x 1 mo Status Active Problem Recommendation Dietitian Recommendations/Changes Continue liberal regular diet Will order 8 oz vanilla ensure plus high protein tid w/ meals for increased nutrition if consumed Lab / Micro Data 06/20/24 13:25 06/20/24 13:25 Physical Exam Narrative General: Alert, Oriented x3, Cooperative, No apparent distress HEENT: Atraumatic, PERRLA, EOMI, Normocephalic Oral: Moist Mucosa Neck: Supple, No JVD Lungs: Clear to auscultation, Normal air movement, No rhonchi, No wheeze, No rales Cardiovascular: Regular rate, Regular Rhythm, Normal S1, Normal S2, No murmurs Abdomen: Soft, Non Tender, Non-Distended, No Hepato-splenomegaly Extremities: No edema, Capillary Refill Less than 3 Seconds Skin: No rashes, No breakdown Musculoskeletal: No Tenderness to Palpation of Joints or Extremities Neurological: No focal neurological deficits, Motor Exam 5/5 strength throughout, Sensory exam intact to light touch and pain Psych/Mental Status: Anxious Assessment & Plan Assessment/Plan (1) Acute alcohol intoxication: PLAN: Plan 1. Alcohol abuse requesting detox/elevated LFTs ? He left AMA 1 month ago notified that if he leaves AMA again he will not be discharged from the next 30 to 60 days ? Continue with his methadone ? Continue with the alcohol withdrawal protocol ? Will have him follow-up with 180 ? LFTs are elevated secondary to his alcohol use DVT: Ambulation Charges/Coding Visit Charges Inpatient E&M: 09376 Subs Hosp L2
[2024-06-22] MEDS: Methadone 10 MG Tablet 100 MG PO (10:02)
[2024-06-22] MEDS: Ondansetron 8 MG Tablet PO (13:58)
[2024-06-22 14:08] VITALS: BP 134/86; PULSE 67; RESP 16; TEMP 36.8; O2SAT 98
--- NOTE | 2024-06-22 16:21 | ADDICTION ---
Pt was met with to complete that RAMP assessment, AUDIT, DUDIT, ASAM, Mt Stat, and D/C Plan. Pt presents as a 33 yr old male admitted to [facility] to address his severe alcohol use disorder and complicated w/d sxs. Pt reports a hx of heroin use and current Methadone tx at [facility] ([facility] in [place]. Pt states that he is planning to follow up with ABELINO tx at [facility], because they are the provider that referred him to [facility] d/t noncompliance with Methadone program. Pt states he is planning to return to the [facility] program where he lives, as soon as he is d/c'd from [facility]. Pt reports that he does have transportation back to [facility].
[2024-06-22 21:44] VITALS: BP 134/99; PULSE 70; RESP 18; TEMP 36.6; O2SAT 100
[2024-06-23 04:07] VITALS: BP 150/107; PULSE 85; RESP 18; TEMP 36.7; O2SAT 96
[2024-06-23] MEDS: Phenobarbital 32.4 MG Tablet 64.8 MG PO ×2 (04:10→09:20)
[2024-06-23] MEDS: 0.9% Saline Lock 10 ML Syringe IV (04:10)
[2024-06-23] MEDS: Gabapentin 300 MG Capsule PO (04:14)
[2024-06-23 06:00] VITALS: BP 107/71; PULSE 57
[2024-06-23 08:47] VITALS: BP 123/91; PULSE 66; RESP 18; TEMP 36.7; O2SAT 100
[2024-06-23] MEDS: Dicyclomine 10 MG Capsule 20 MG PO (09:20)
[2024-06-23] MEDS: Methadone 10 MG Tablet 100 MG PO (09:20)
[2024-06-23] MEDS: Thiamine Hydrochloride 100 MG Tablet PO (09:22)
[2024-06-23] MEDS: Folic Acid 1 MG Tablet PO (09:23)
[2024-06-23] MEDS: hydrOXYzine PAM 25 MG Capsule 50 MG PO (09:27)
--- NOTE | 2024-06-23 10:43 | DCINST_ITS ---
Discharge Instructions Diet Discharge Diet: No restrictions DC O2, CPAP, BIPAP needs Home O2 Discharge instructions: No Dressing / Incision Discharge Activity: Return to Normal Activity Follow Up Care Test Results: Test results from this visit will be discussed in further detail at your follow- up appointment, if applicable. Discharge Plan Admission Admit Date/Time: 06/20/24 14:34 Primary Reason for Your Visit: Alcohol detox Attending Provider: Majo Terrazas Primary Care Provider: Care Physician,No Primary Consulting Providers: David Mcguire Instructions Patient Instructions: Alcohol Addiction Additional Instructions / Restrictions: - It is recommended that you establish care with a primary care physician upon discharge given your elevated liver function tests -And is also strongly advised that you avoid alcohol Discharge Orders/Prescriptions Prescriptions: New ondansetron HCl 8 mg Tablet 8 mg PO Q8H PRN PRN (Reason: Nausea) 7 Days Qty: 21 0RF Continued methadone 10 mg tablet 100 mg PO DAILY Patient Comments: pt gets dose daily from clinic. has saturday's dose with him Referrals / Follow Up: Care Physician,No Primary [Primary Care Provider] - ( -If you do not have a primary care physician of list of local primary care physicians can be provided for you upon discharge. Please ask for this list prior to discharge ) Disposition Disposition (needs filled in before D/C Order can be placed): Home, Self Care
--- NOTE | 2024-06-23 10:46 | PCM.DC.SUM ---
Providers Date of Admission: 06/20/24 Date of Discharge: 06/23/24 Primary Care Physician: No Primary Care Phys Reason For Visit: ETOH detox Diagnosis Discharge Diagnosis (1) Acute alcohol intoxication: Status: Acute Code(s): F10.929 - Alcohol use, unspecified with intoxication, unspecified Plan #ETOH withdrawal # Thrombocytopenia # Opioid use disorder on methadone # Transaminitis Medications at Discharge Home Medications methadone 10 mg tablet 100 mg PO DAILY 05/22/24 ondansetron HCl 8 mg tablet 8 mg PO Q8H PRN PRN Nausea 7 days #21 tabs 06/23/24 Hospital Course Summary of Care Provided Minutes Spent on Discharge: 22 Hospital Course: Patient was admitted 07/11 requesting detox from alcohol. Patient was admitted and detox protocol ordered. They completed their detox and were discharged in stable condition. On the day of discharge patient with a little bit of nausea and abdominal pain still but improving. Discussed his liver function test and importance of establishing with a PCP and he verbalizes understanding. Patient comfortable with discharge home Physical Exam Narrative General: Alert, oriented, no apparent distress HEENT: Atraumatic, normocephalic Eyes: extraocular movements grossly intact Neck: Supple Respiratory: normal respiratory effort Cardiovascular: no edema appreciated GI: nondistended, little bit tender more in right upper quadrant without rebound, guarding, rigidity Extremities: Moving all extremities Neuro: No overt focal neurological deficits Psych: Cooperative Medical Records Data Medical Nutrition Assessment Dietitian: Malnutrition Criteria Met Start: 06/21/24 11:31 Freq: Status: Active Protocol: Document 06/21/24 11:31 GERALDINE (Rec: 06/21/24 11:32 GERALDINE [id number]) Nutrition Malnutrition Evidence of Malnutrition Exists Yes Malnutrition (severe): Social/Behavioral/ Environmental Evidenced By Suboptimal Energy Intake ( Severe),Weight Loss (Severe) Clinical Problem Acute Disease or Injury Related Malnutrition Etiology related to etoh abuse and suboptimal energy intake Signs/Symptoms as evidenced by ~14% unintended wt loss and po intake meeting <75% of est nutritional needs x 1 mo Status Active Problem Recommendation Dietitian Recommendations/Changes Continue liberal regular diet Will order 8 oz vanilla ensure plus high protein tid w/ meals for increased nutrition if consumed Weight / BMI Weight Weight: 64.773 kg Body Mass Index (BMI) 21.7 ABG / Lab / Microbiology Data 06/20/24 13:25 06/20/24 13:25 D/C Instructions Discharge Diet: No restrictions DC O2, CPAP, BIPAP Needs Home O2 Discharge instructions: No Meaningful Use Info Meaningful Use Meaningful Use Diagnoses (Choose all that apply): None applicable Ischemic Stroke Statin Dosing Therapy Reference: STATIN DOSE THERAPY REFERENCE: * Patients > 75 years receive moderate or high dose statin therapy. * Patients 75 years or YOUNGER should receive HIGH intensity statin dose unless contraindicated. You will be required to document reason for non-treatment if statin daily dose does not meet guidelines. HIGH DOSE STATIN THERAPY DAILY Atorvastatin > than or = to 40 mg Rosuvastatin > than or = to 20 mg Amlodipine + Atorvastatin > than or = to 2.5/40 mg Ezetimibe + Simvastatin 10/80 mg Simvastatin 80mg Discharge Plan Admission Admit Date/Time: 06/20/24 14:34 Primary Reason for Your Visit: Alcohol detox Attending Provider: Majo Terrazas Primary Care Provider: Care Physician,No Primary Consulting Providers: David Mcguire Instructions Patient Instructions: Alcohol Addiction Additional Instructions / Restrictions: - It is recommended that you establish care with a primary care physician upon discharge given your elevated liver function tests -And is also strongly advised that you avoid alcohol Discharge Orders/Prescriptions Prescriptions: New ondansetron HCl 8 mg Tablet 8 mg PO Q8H PRN PRN (Reason: Nausea) 7 Days Qty: 21 0RF Continued methadone 10 mg tablet 100 mg PO DAILY Patient Comments: pt gets dose daily from clinic. has saturday's dose with him Referrals / Follow Up: Care Physician,No Primary [Primary Care Provider] - ( -If you do not have a primary care physician of list of local primary care physicians can be provided for you upon discharge. Please ask for this list prior to discharge ) Disposition Disposition (needs filled in before D/C Order can be placed): Home, Self Care Charges/Coding Visit Charges Inpatient E&M: 29851 Disch Hosp
--- NOTE | 2024-06-23 13:30 | PHA.DC.MC.R ---
Pharmacy [facility] has performed discharge medication reconciliation and counseling for this patient. 1. ONDANSETRON 8MG PO Q8H PRN NAUSEA The patient's discharge medication list was reviewed for discrepancies and discrepancies were resolved. The patient was counseled on the following discharge medications and changes in medications for homegoing were reviewed. The Reason for Use, instructions for use, and potential side effects were reviewed for all new medications. The patient's questions regarding all of their medications were answered. The patient was able to verbally demonstrate an understanding of their discharge medications. Medications at Discharge Home Medications methadone 10 mg tablet 100 mg PO DAILY 05/22/24 ondansetron HCl 8 mg tablet 8 mg PO Q8H PRN PRN Nausea 7 days #21 tabs 06/23/24
== END 2024-06-23 13:40 | disposition home or self-care (01) | DRG 775 ==
LOC: ED 12:54 → MS3 14:24
PROVIDERS: Admitting Provider Family Medicine; Emergency Provider Emergency Medicine; Visit Provider Internal Medicine
DX: F10.129 Alcohol abuse with intoxication, unspecified (principal); E43 Unspecified severe protein-calorie malnutrition; F17.290 Nicotine dependence, other tobacco product, uncomplicated; Y90.8 Blood alcohol level of 240 mg/100 ml or more; Z68.22 Body mass index [BMI] 22.0-22.9, adult
CPT/HCPCS: 80053; 80307; 82077; 85025; 97802; 99284; A4216

== ENCOUNTER 2024-07-16 21:26 | Inpatient (IN) | payer MEDICAID, SELFPAY ==
[2024-07-16 21:26] VITALS: BP 142/104; PULSE 84; RESP 16; TEMP 36.8; O2SAT 97; BMI 20.7
[2024-07-16 22:57] LABS: Amphetamine Urine NEGATIVE (<1000 ng/mL); Barbiturate Urine VISTA POSITIVE (< 200 ng/mL); Benzodiazepine Urine VISTA NEGATIVE (< 200 ng/mL); Cocaine Urine VISTA POSITIVE (< 300 ng/mL); Ecstacy Urine VISTA POSITIVE (< 500 ng/mL); Methadone Urine VISTA POSITIVE (< 300 ng/mL); PCP Urine VISTA NEGATIVE (< 25 ng/mL); THC Urine VISTA POSITIVE (< 50 ng/mL); Vista UDS pH Range 5
[2024-07-16 23:26] VITALS: BP 158/102; PULSE 71; RESP 18; O2SAT 100
[2024-07-17] VITALS (7 sets, daily range): BP systolic 127–149; BP diastolic 78–95; PULSE 74–93; RESP 16–18; TEMP 36.5–36.7; O2SAT 98–100; BMI 20.5
[2024-07-17 00:11] LABS: Absolute Lymphocyte Count 1.86 X10^3/uL (0.83-4.51); Absolute Neutrophil Count 3.2 X10^3/uL (2.0-7.7); Basophil# 0.03 X10^3/uL; Basophil% 0.5 % (0-1); Eosinophil# 0.07 X10^3/uL; Eosinophils% 1.2 % (0-5); Hematocrit 39.5 % (40-54); Hemoglobin 13.3 g/dL (13.0-16.5); Lymphocyte # 1.86 X10^3/ul (0.83-4.51); Lymphocyte % 32.7 % (19-41); Mean Corp Hgb Conc 33.7 g/dL (32-36); Mean Corpuscular Hgb 31.6 pg (27.0-32.0); Mean Corpuscular Volume 93.8 fL (80-94); Mean Platelet Vol. 11.5 fl (6.2-12.0); Monocyte# 0.56 X10^3/uL; Monocyte% 9.8 % (0-10); NRBC Flagged by Analyzer 0 % (0-5); Neutrophil # 3.15 X10^3/uL (2.7-7.7); Neutrophil % 55.4 % (47-70); POSITIVE COUNT YES; Platelet Count 106 K/mm3 (150-450); RBC Distribution Width CV 14.1 % (11.6-14.6); RBC Distribution Width SD 47.8 fl (35.1-43.9); Red Blood Count 4.21 M/mm3 (4.6-6.2); White Blood Count 5.7 K/mm3 (4.4-11.0)
--- NOTE | 2024-07-17 00:16 | EDS_ITS ---
HPI History of Present Illness Chief Complaint: Substance Abuse Informant: patient Narrative Narrative: 34-year-old male presenting to the emergency room requesting detox from opiates. Patient states that he has been a polysubstance user. He has been in detox [facility]. Him and his traveled here together to seek detox. She is also checking in. He denies any pending legal issues. He states that he does take methadone. He denies any IV drug use states that he snorts his fentanyl. He denies concerns for HIV. He states he does not take any other medications. He is a heavy nicotine user. He states he does not drink alcohol anymore after having a episode of alcoholic pancreatitis. [facility] Medical History Hx of renal calculi Pancreatitis Denies previous medical history Home Medications ?Medication ?Instructions ?Recorded ?Last Taken ?Type methadone 10 mg tablet 100 mg PO DAILY 05/22/2410/09 History ondansetron HCl 8 mg tablet 8 mg PO Q8H PRN PRN Nausea 7 days 06/23/24 Unknown Rx #21 tabs Allergy/AdvReac Type Severity Reaction Status Date / Time levetiracetam (From [facility]) Allergy HIVES Verified 07/16/24 21:27 Family History Other Cancer Hypertension Surgical History Hx of tonsillectomy Social History Smoking Status: Current every day smoker tobacco type: e-cigarettes ROS ROS ED Constitutional Constitutional ED: Denies chills, fever(s) or weight loss Eyes Eyes: Denies change in vision or diplopia ENT ENT ED: Denies ear pain, rhinorrhea or sore throat Cardiovascular Cardiovascular: Denies chest pain, orthopnea, palpitations or racing heartbeat Respiratory/Chest Respiratory/Chest: Denies cough, dyspnea or orthopnea Gastrointestinal Gastrointestinal: Reports nausea; Denies abdominal pain, diarrhea or vomiting Genitourinary Genitourinary ED: Denies dysuria, hematuria or urinary frequency Musculoskeletal Musculoskeletal: Denies arthralgias or myalgias Integumentary Denies abscess or rash Neurologic Neurologic: Reports headache(s) and other Details: Tremor ; Denies weakness Psychiatric Psychiatric: Denies anxiety, depression, suicidal ideation or suicidal thoughts Endocrine Endocrinology: Denies polydipsia, polyphagia or polyuria Allergic/Immunologic Allergic/Immunologic ED: Denies mouth swelling, tongue swelling or urticaria EXAM Physical Exam Const Vital Signs: 07/16/24 21:26 07/16/24 23:26 Temperature 98.2 F Temperature Source Oral Pulse Rate 84 71 Respiratory Rate 16 18 Blood Pressure 142/104 H 158/102 H Blood Pressure Mean 116 120 Pulse Ox 97 100 Oxygen Delivery Method Room Air Room Air Positive well nourished and well developed General Appearance ED: well developed HEENT Reports normocephalic, head/scalp atraumatic and moist mucous membranes Eyes PERRL and EOMs intact bilaterally Neck no lymphadenopathy, supple and no JVD Resp normal respiratory effort and clear to auscultation bilaterally Cardio regular rate, regular rhythm and no murmurs GI normal to inspection, nondistended, normoactive bowel sounds and non-tender Palpation: soft Back/Spine no CVA tenderness and normal ROM Extremity normal to inspection General Extremety ED: Negative for edema General Extremity: Negative for edema Neuro oriented x3 and CN's II-XII intact bilaterally Sensorium / Orientation: alert Motor Exam: strength 5/5 throughout Psych mental status grossly normal Mood & Affect: anxious and tearful; Negative for depressed Skin no rashes or lesions noted and no wounds MDM MDM MDM Narrative Medical decision making narrative: ED addiction labs will be obtained and reviewed. I will speak with the hospitalist regarding admission. He was given nicotine patch. History & Record Review Discussion w/independent historian: Patient Lab Data Attestation: I reviewed the patient's lab results. Labs: Laboratory Results - last 24 hr 07/16/24 07/16/24 22:35 23:20 Urine Opiates Screen POSITIVE H Urine Methadone Screen POSITIVE H Ur Barbiturates Screen POSITIVE H Ur Phencyclidine Scrn NEGATIVE Ur Amphetamines Screen NEGATIVE MDMA (Ecstasy) Screen POSITIVE H U Benzodiazepines Scrn NEGATIVE Urine Cocaine Screen POSITIVE H U Cannabinoids Screen POSITIVE H Ur Drug Screen Comment Ethyl Alcohol 4.0 Management Discussion w/another healthcare provider: Hospitalist (Dr. Valladares) Discharge Plan Dx/Rx/DC Orders Clinical Impression: Polysubstance abuse, Opiate withdrawal Disposition Disposition: Acute Care Hospital [facility]
[2024-07-17 00:26] LABS: ALB/GLOB Ratio 1.1 RATIO (0.9-2.4); AST(SGOT) 31 U/L (15-37); Alanine Aminotransfer ALT/SGPT 25 U/L (16-61); Alkaline Phosphatase 101 U/L (45-117); Anion Gap 8 (5-15); BUN 11 mg/dL (7-18); BUN/Creat Ratio 12.5 RATIO (10-20); Calcium,Total 9.2 mg/dL (8.5-10.1); Chloride 108 mmol/L (98-107); Creatinine, Serum 0.88 mg/dL (0.70-1.30); EST Glomerular Filtration Rate 105 mL/min (>60); Est Glom Filt Rate - Afr Amer 127 mL/min (>60); Estimated Creatinine Clearance 103.49 ml/min; Globulin 3.5 g/dL (2.2-4.2); Glucose 83 mg/dL (74-106); Potassium 3.5 mmol/L (3.5-5.1); Protein, Total 7.5 g/dL (6.4-8.2); Sodium Level 140 mmol/L (136-145)
[2024-07-17 01:00] LABS: Differential Indicated SCAN CRITERIA MET
--- NOTE | 2024-07-17 01:00 | HP.PCM.HOS_ITS ---
[facility] - General General Date of Admission: 07/17/24 Date of Service: 07/17/24 Chief Complaint: Requesting Opiate/Polysubstance Withdrawal. HPI Narrative YU DOHERTY, is a 34 M with a past medical history of chronic opiate/polysubstance; on chronic methadone 100 mg daily plus snorting fentanyl daily with previous admission for detox, cannabis abuse, chronic tobacco abuse, history of EtOH abuse; quit after a severe bout of EtOH pancreatitis with EtOH hepatitis earlier this month, chronic moderate thrombocytopenia; with baseline level ~100K since last year, listed allergy to levtiracetam (hives) and history of renal calculi who presents to [facility] ER requesting opiate/polysubstance detox. Mr. Doherty reports both he and his came together today to be admitted for help with detoxification from multiple drugs. He denies a history of significant medical illness outside of ones related to complications from his long-standing problem with addiction except for his kidney stones with patient on no prescribed medications at this time. He denies any pending legal issues or IVDA. He admits to headache and nausea but he denies associated fever, chills, nausea, vomiting, diarrhea, constipation, abdominal pain, runny nose, sore throat, ear pain, chest pain, SOB, depression or anxiety. In the ER he was noted to have a 'bumble bee' UDS positive for multiple agents, including: opiates, methadone, barbiturates, MDMA, cocaine and cannabis. He was incidentally noted to have moderate thrombocytopenia of 106K present on admission which is near his previous baseline level without any other significant abnormalities. He was then admitted to the general medical floor for treatment of opiate/polysubstance detoxification for a stay that is expected to extend beyond 2 midnights. [facility] Medical History (Updated 07/17/24 @ 01:52 by Hina Fleming) Substance abuse Hx of renal calculi Pancreatitis Denies previous medical history Home Medications ?Medication ?Instructions ?Recorded ?Last Taken ?Type methadone 10 mg tablet 100 mg PO DAILY 05/22/2410/09 History ondansetron HCl 8 mg tablet 8 mg PO Q8H PRN PRN Nausea 7 days 06/23/24 Unknown Rx #21 tabs Allergy/AdvReac Type Severity Reaction Status Date / Time levetiracetam (From [facility]) Allergy HIVES Verified 07/16/24 21:27 Family History Other Cancer Hypertension Surgical History Hx of tonsillectomy Social History Smoking Status: Current every day smoker tobacco type: e-cigarettes ROS ROS Narrative Review of Systems: Constitutional: Patient denies fever or chills. Eyes: Patient denies changes in vision or discharge from eyes. ENT: Patient denies runny nose, sore throat or ear pain. Resp: Patient denies SOB or cough. CV: Patient denies chest pain, palpitations, heart racing or LE edema. GI: Patient admits to nausea but he denies abdominal pain, nausea, vomiting, diarrhea or constipation. : Patient denies dysuria, hematuria or flank pain. MSK: Patient denies arthralgias or myalgias. Skin: Patient denies rash, abscess, wound or jaundice. Psych: Patient denies symptoms of uncontrolled depression or anxiety. Neuro: Patient admits to headache but he denies paresthesias or focal neurologic deficits. Allergy: Patient denies lip swelling, tongue swelling or urticaria. Hematology: Patient denies easy bleeding or easy bruisability. Endocrinology: Patient denies polyuria, polydipsia or polyphagia. 14 point ROS otherwise negative except for positive noted above in HPI. Vital Signs Vital Signs Vital Signs: 07/16/24 21:26 07/16/24 23:26 07/17/24 00:34 Temperature 98.2 F 97.9 F Temperature Source Oral Pulse Rate 84 71 74 Respiratory Rate 16 18 16 Blood Pressure 142/104 H 158/102 H 142/91 H Blood Pressure Mean 116 120 108 Pulse Ox 97 100 99 Oxygen Delivery Method Room Air Room Air Weight Weight: 136 lb 6 oz Body Mass Index (BMI) 20.7 Physical Exam Const alert, oriented x3, no apparent distress and average body habitus General Appearance: cooperative HEENT normocephalic, head/scalp atraumatic, hearing grossly normal bilaterally and moist oral mucous membranes Eyes PERRL, EOMs intact bilaterally and conjunctivae normal Neck no lymphadenopathy and supple Resp normal respiratory effort, no retractions, no use of accessory muscles and clear to auscultation bilaterally Cardio regular rate and regular rhythm GI normal to inspection, nondistended, normoactive bowel sounds, soft to palpation, non-tender and non-distended Extremity normal to inspection, full ROM and no clubbing, cyanosis or edema Skin Skin Narrative: Patient has no evidence of rash, abscess, wound or jaundice. Neuro oriented x3, CN's II-XII intact bilaterally, moves all extremities and no focal motor deficits Sensorium / Orientation: awake, alert, oriented to person, oriented to place and oriented to time Speech: speech normal Psych affect normal Results Medical Records Data Attestation: I reviewed the patient's medical records Lab / Micro Data Attestation: I reviewed the patient's lab results. 07/17/24 06:10 07/16/24 23:53 Labs: Laboratory Results - last 24 hr 07/16/24 22:35: Urine Opiates Screen POSITIVE H, Urine Methadone Screen POSITIVE H, Ur Barbiturates Screen POSITIVE H, Ur Phencyclidine Scrn NEGATIVE, Ur Amphetamines Screen NEGATIVE, MDMA (Ecstasy) Screen POSITIVE H, U Benzodiazepines Scrn NEGATIVE, Urine Cocaine Screen POSITIVE H, U Cannabinoids Screen POSITIVE H, Ur Drug Screen Comment 07/16/24 23:20: Ethyl Alcohol 4.0 07/16/24 23:53: Sodium 140, Potassium 3.5, Chloride 108 H, Carbon Dioxide 25.0, Anion Gap 8, BUN 11, Creatinine 0.88, Estim Creat Clear Calc 103.49, Est GFR (MDRD) Af Amer 127, Est GFR (MDRD) Non-Af 105, BUN/Creatinine Ratio 12.5, Glucose 83, Calcium 9.2, Total Bilirubin 0.70, AST 31, ALT 25, Alkaline Phosphatase 101, Total Protein 7.5, Albumin 4.0, Globulin 3.5, Albumin/Globulin Ratio 1.1 Assessment & Plan Assessment/Plan (1) Opiate withdrawal: (2) Polysubstance abuse: (3) Tobacco abuse: (4) History of alcohol abuse: (5) Thrombocytopenia: PLAN: Plan 1. Acute Opiate/Polysubstance Withdrawal with UDS positive for multiple agents, including: opiates, methadone, barbiturates, MDMA, cocaine and cannabis with patient requesting opiate/polysubstance detox with a history of admission for polysubstance detoxification - Admit to general medical floor. Stop methadone in favor of buprenorphine taper since this agent is not helping to curb his cravings and addiction. Opiate/polysubstance Cessation will be strongly encouraged. Because this patient also apparently has a superimposed barbiturate addiction he will not be treated with this class of agents in favor of prn lorazepam for breakthrough symptoms. 2. Cannabis Abuse complicating #1 - Cannabis Cessation will be strongly encouraged. 3. Chronic Tobacco Abuse compounding 1 & #2 - Tobacco Cessation will be strongly encouraged with Nicotine patch offered to control cravings. 4. History of EtOH abuse; quit after a severe bout of EtOH pancreatitis with EtOH hepatitis earlier this month - Patient denies current EtOH abuse. 5. Chronic moderate Thrombocytopenia; with baseline level ~100K since last year - Stable with platelet count of 106K present on admission. 6. History of renal calculi - Noted with no evidence of recurrence at this time. 7. Listed allergy to levtiracetam (hives) - Noted. We will avoid this agent. 8. DVT prophylaxis - Chemoprophylaxis contraindicated due to #5. He can be up ad elly and is otherwise felt to be low-risk. Total time: Approximately (but not less than) 55 minutes. Charges/Coding Visit Charges Inpatient E&M: 14962 Init Hosp L2
[2024-07-17 01:01] LABS: Differential Comment SCANNED; Platelet Estimate SLT DEC (ADEQ)
[2024-07-17] MEDS: hydrOXYzine PAM 25 MG Capsule 50 MG PO ×2 (02:20→16:46)
[2024-07-17] MEDS: 0.9% Normal Saline (1000mL) 1,000 ML 100 ML IV ×2 (03:14→14:47)
[2024-07-17 06:45] LABS: Absolute Lymphocyte Count 2.08 X10^3/uL (0.83-4.51); Absolute Neutrophil Count 2.4 X10^3/uL (2.0-7.7); Basophil# 0.03 X10^3/uL; Basophil% 0.6 % (0-1); Eosinophil# 0.07 X10^3/uL; Eosinophils% 1.4 % (0-5); Hemoglobin 13.1 g/dL (13.0-16.5); Lymphocyte # 2.08 X10^3/ul (0.83-4.51); Lymphocyte % 41.2 % (19-41); Mean Corp Hgb Conc 33.6 g/dL (32-36); Mean Corpuscular Hgb 31.8 pg (27.0-32.0); Mean Corpuscular Volume 94.7 fL (80-94); Mean Platelet Vol. 11.5 fl (6.2-12.0); Monocyte# 0.48 X10^3/uL; Monocyte% 9.5 % (0-10); NRBC Flagged by Analyzer 0 % (0-5); Neutrophil # 2.37 X10^3/uL (2.7-7.7); Neutrophil % 46.9 % (47-70); Platelet Count 153 K/mm3 (150-450); RBC Distribution Width CV 14.1 % (11.6-14.6); Red Blood Count 4.12 M/mm3 (4.6-6.2); White Blood Count 5.1 K/mm3 (4.4-11.0)
[2024-07-17] MEDS: Methocarbamol 750 MG Tablet PO ×2 (08:21→20:51)
[2024-07-17] MEDS: Buprenorphine HCl 2 MG TAB.SUBL SL ×3 (08:21→23:41)
[2024-07-17] MEDS: Ensure Plus High Protein 120 ML LIQUID PO (08:21)
[2024-07-17] MEDS: Ondansetron 8 MG Tablet PO (10:54)
[2024-07-17] MEDS: LORazepam 2 MG/ML Syringe 1 MG IV (10:58)
[2024-07-17] MEDS: Gabapentin 300 MG Capsule PO ×2 (10:59→20:52)
--- NOTE | 2024-07-17 13:19 | ADDICTION ---
This keno writer / runner met with PT to conduct ASAM, MSE, AUDIT assessments and to plan for d/c. PT A+Ox4 and participated actively. All assessments completed. PT plans to f/u with [facility] in [place] for follow-up [facility] treatment services. PT did not indicate a need for transportation post d/c from [facility].
--- NOTE | 2024-07-17 14:32 | PCM.HOSP.N ---
Hospitalist Note Patient was seen and examined today, he has no specific complaints to this examiner, he was admitted yesterday for polysubstance use disorder, patient does not appear nervous or anxious today. According to medical record, patient is no longer drinking. He is on methadone however this was stopped in favor of Subutex. Continue present orders on the patient for now. Platelet count today is normal.
[2024-07-17] MEDS: traZODone 100 MG Tablet PO (20:51)
[2024-07-17] MEDS: cloNIDine HCl 0.1 MG Tablet PO (20:51)
[2024-07-17] MEDS: Acetaminophen 325 MG Tablet 650 MG PO (20:52)
[2024-07-18 05:38] VITALS: BP 116/73; PULSE 83; RESP 18; TEMP 36.7; O2SAT 99
[2024-07-18] MEDS: Ondansetron 8 MG Tablet PO (05:40)
[2024-07-18] MEDS: hydrOXYzine PAM 25 MG Capsule 50 MG PO (05:41)
[2024-07-18] MEDS: Methocarbamol 750 MG Tablet PO ×2 (05:41→11:45)
[2024-07-18 08:09] VITALS: BP 122/76; PULSE 86; RESP 16; TEMP 36.6; O2SAT 99
[2024-07-18] MEDS: Buprenorphine HCl 2 MG TAB.SUBL SL (08:17)
[2024-07-18] MEDS: Gabapentin 300 MG Capsule PO (10:10)
[2024-07-18] MEDS: Acetaminophen 325 MG Tablet 650 MG PO (10:10)
--- NOTE | 2024-07-18 11:09 | PCM.PN.HOSP ---
Reason for Visit Reason for Visit: Diagnoses Thrombocytopenia, unspecified (07/17/24) Alcohol abuse, in remission (07/17/24) Opioid use, unspecified with withdrawal (07/17/24) Other psychoactive substance abuse, uncomplicated (07/17/24) Tobacco use (07/17/24) Subjective Subjective Patient was seen and examined today, he has no complaints of any anxiety or tremor Objective Data Objective Data Vital Signs: Vital Signs Temp Pulse Resp BP Pulse Ox O2 Del Method 97.9 F 86 16 122/76 H 99 Room Air 07/18/24 08:09 07/18/24 08:09 07/18/24 08:09 07/18/24 08:09 07/18/24 08:09 07/18/24 08:09 Oxygen Delivery Method Room Air Weight: 61.4 kg Body Mass Index (BMI) 20.5 Intake & Output: Intake and Output for Last 24 Hours 07/16/24 07/17/24 07/18/24 23:59 23:59 23:59 Intake Total 2300 / 2300 1146.67 / 1146.67 Balance 2300 / 2300 1146.67 / 1146.67 Medical Nutrition Assessment Dietitian: Malnutrition Criteria Met Start: 07/17/24 13:16 Freq: Status: Active Protocol: Document 07/17/24 13:16 SLA (Rec: 07/17/24 13:16 SLA [id number]) Nutrition Malnutrition Evidence of Yes Malnutrition Exists Malnutrition (severe Social/Behavioral/Environmental ): Evidenced By Suboptimal Energy Intake (Severe),Weight Loss (Severe) Clinical Problem Chronic Disease or Condition Related Malnutrition Etiology related to polysubstance/etoh abuse resulting in inadequate energy intake Signs/Symptoms as evidenced by po intake meeting < 75% of est nutritional needs and 5.3% unplanned wt loss x less than one month and 10% unplanned wt loss x 6 mo ago Status Active Problem Recommendation Dietitian Continue liberal regular diet Recommendations/ Will change ONS from 120 ml ensure plus high protein w/ Changes medpass to 240 ml ensure plus high protein tid w/ meals per pt resquest Lab / Micro Data 07/17/24 06:10 07/16/24 23:53 Physical Exam Const alert, oriented x3, no apparent distress and healthy appearing General Appearance: cooperative, well kempt and well developed Orientation / Consciousness: awake, oriented to person, oriented to place and oriented to time HEENT normocephalic and moist oral mucous membranes Eyes PERRL, EOMs intact bilaterally and conjunctivae normal Neck supple, no JVD, thyroid normal and no carotid bruits General: trachea midline Resp normal respiratory effort and clear to auscultation bilaterally Auscultation: Negative for rales, rhonchi or wheezes Cardio regular rate, regular rhythm, no murmurs, no rub and no gallops GI normal to inspection, nondistended, normoactive bowel sounds, soft to palpation, non-tender and non-distended Extremity no clubbing, cyanosis or edema Skin no rashes or lesions noted General Skin Exam: no breakdown Neuro oriented x3, CN's II-XII intact bilaterally, no focal motor deficits and no sensory deficits noted Sensorium / Orientation: awake and alert Speech: speech normal Psych affect normal Assessment & Plan Assessment/Plan (1) Opiate withdrawal: PLAN: Plan 1. Acute opiate withdrawal-patient remains relatively asymptomatic at this time, continue present medications #2 polysubstance abuse disorder-complicates care, management, recovery, and prognosis Total clinical time spent by myself addressing patient's medical issues, reviewing all of his data, and collaborating with patient's care team: 25-minute Charges/Coding Visit Charges Inpatient E&M: 74525 Subs Hosp L1
[2024-07-18 11:35] VITALS: BP 123/78; PULSE 87; RESP 19; TEMP 36.7; O2SAT 98
[2024-07-18] MEDS: cloNIDine HCl 0.1 MG Tablet PO (11:45)
--- NOTE | 2024-07-18 12:58 | NURSING ---
This RN went into room to give pt PO Ativan. Pt informed this RN that he has been talking to his mother she has an inpatient placement for him. Pt informed this RN that he would like to leave AMA. This RN questions pt how he was talking to his mother and pt showed this RN his cell phone and stated I never gave it up. This RN informed pt that he is not allowed to have the phone and pt stated, I just need to leave. This RN returned the PO ativan to [facility] witnessed by RONNY Lopez. This RN gave pt AMA papers to sign.
--- NOTE | 2024-07-18 13:15 | PCM.DC.SUM ---
Providers Date of Admission: 07/17/24 Date of Discharge: 07/18/24 Primary Care Physician: No Primary Care Phys Reason For Visit: OPIATE/POLYSUBSTANCE DETOX Diagnosis Discharge Diagnosis (1) Opiate withdrawal: Status: Acute Code(s): F11.93 - Opioid use, unspecified with withdrawal Plan 1. Acute opiate withdrawal-patient remains relatively asymptomatic at this time, continue present medications #2 polysubstance abuse disorder-complicates care, management, recovery, and prognosis Total clinical time spent by myself addressing patient's medical issues, reviewing all of his data, and collaborating with patient's care team: 25-minute Medications at Discharge Home Medications methadone 10 mg tablet 100 mg PO DAILY 05/22/24 ondansetron HCl 8 mg tablet 8 mg PO Q8H PRN PRN Nausea 7 days #21 tabs 06/23/24 Hospital Course Operations None Procedures None Summary of Care Provided Minutes Spent on Discharge: 30 Hospital Course: Patient was seen and examined in the emergency room at [facility], he requested services for opiate substance use disorder, patient also has a history of polysubstance abuse. Patient appears stable on admission, he was admitted to [place] [address] when orders were entered using the opiate detox order set. Patient had some nervousness during his hospitalization but otherwise it was uneventful. Patient was seen and examined on 07/18/2024: On examination he appeared in good health and spirits. Vital signs as documented. Skin warm and dry and without overt rashes. Neck without JVD, neck was supple, trachea midline, thyroid was normal. Lungs clear bilaterally, normal air movement was noted. Heart exam notable for regular rhythm, normal sounds and absence of murmurs, rubs or gallops. Abdomen unremarkable and without evidence of organomegaly, masses, or abdominal aortic enlargement. Bowel sounds are present, abdomen is not distended. Extremities nonedematous, no cyanosis was noted, no clubbing was noted. Neuro: Cranial nerves II through XII are grossly intact, no focal motor deficits were noted, sensation to light touch and pinprick intact, motor exam 5/5 throughout. Psych: Patient is alert and oriented x3, he does not appear anxious or depressed, he does not appear agitated. Patient abruptly decided on 07/18/2024 to check out of the hospital AGAINST MEDICAL ADVICE. Medical Records Data Medical Nutrition Assessment Dietitian: Malnutrition Criteria Met Start: 07/17/24 13:16 Freq: Status: Active Protocol: Document 07/17/24 13:16 SLA (Rec: 07/17/24 13:16 SLA [email or web address]) Nutrition Malnutrition Evidence of Yes Malnutrition Exists Malnutrition (severe Social/Behavioral/Environmental ): Evidenced By Suboptimal Energy Intake (Severe),Weight Loss (Severe) Clinical Problem Chronic Disease or Condition Related Malnutrition Etiology related to polysubstance/etoh abuse resulting in inadequate energy intake Signs/Symptoms as evidenced by po intake meeting < 75% of est nutritional needs and 5.3% unplanned wt loss x less than one month and 10% unplanned wt loss x 6 mo ago Status Active Problem Recommendation Dietitian Continue liberal regular diet Recommendations/ Will change ONS from 120 ml ensure plus high protein w/ Changes medpass to 240 ml ensure plus high protein tid w/ meals per pt resquest Weight / BMI Weight Weight: 61.4 kg Body Mass Index (BMI) 20.5 ABG / Lab / Microbiology Data 07/17/24 06:10 07/16/24 23:53 D/C Instructions DC O2, CPAP, BIPAP Needs Home O2 Discharge instructions: No Meaningful Use Info Meaningful Use Meaningful Use Diagnoses (Choose all that apply): None applicable Ischemic Stroke Statin Dosing Therapy Reference: STATIN DOSE THERAPY REFERENCE: * Patients > 75 years receive moderate or high dose statin therapy. * Patients 75 years or YOUNGER should receive HIGH intensity statin dose unless contraindicated. You will be required to document reason for non-treatment if statin daily dose does not meet guidelines. HIGH DOSE STATIN THERAPY DAILY Atorvastatin > than or = to 40 mg Rosuvastatin > than or = to 20 mg Amlodipine + Atorvastatin > than or = to 2.5/40 mg Ezetimibe + Simvastatin 10/80 mg Simvastatin 80mg Discharge Plan Admission Admit Date/Time: 07/17/24 01:18 Attending Provider: Brad Ball Primary Care Provider: Care Physician,No Primary Consulting Providers: Phoenix Ramsey Discharge Orders/Prescriptions Prescriptions: No Action methadone 10 mg tablet 100 mg PO DAILY Patient Comments: pt gets dose daily from clinic. has saturday's dose with him ondansetron HCl 8 mg Tablet 8 mg PO Q8H PRN PRN (Reason: Nausea) 7 Days Qty: 21 0RF Referrals / Follow Up: Care Physician,No Primary [Primary Care Provider] - Disposition Discharge Orders: Discharge Patient (Routine); Ordered 07/18/24 Ordered By: Dr. Brad Ball Charges/Coding Visit Charges Inpatient E&M: 22123 Disch Hosp
== END 2024-07-18 13:09 | disposition left against medical advice (07) | DRG 770 ==
LOC: ED 07-17 00:19 → MS3 07-17 01:31
PROVIDERS: Admitting Provider Internal Medicine; Emergency Provider Emergency Medicine; Visit Provider Internal Medicine
DX: F11.13 Opioid abuse with withdrawal (principal); E43 Unspecified severe protein-calorie malnutrition; D69.6 Thrombocytopenia, unspecified; F10.11 Alcohol abuse, in remission; F12.10 Cannabis abuse, uncomplicated; F17.290 Nicotine dependence, other tobacco product, uncomplicated; F19.10 Other psychoactive substance abuse, uncomplicated; Z68.20 Body mass index [BMI] 20.0-20.9, adult; Z79.891 Long term (current) use of opiate analgesic
CPT/HCPCS: 36415; 80053; 80307; 82077; 85025; 97802; 99283

== ENCOUNTER 2025-02-17 19:42 | Inpatient (IN) | payer MEDICAID, SELFPAY ==
[2025-02-17 19:43] VITALS: BP 157/106; PULSE 119; RESP 16; TEMP 36.9; O2SAT 100; BMI 21.1
--- NOTE | 2025-02-17 20:23 | EX.ED.DYSGE1 ---
HPI History of Present Illness Chief Complaint: Substance Abuse [facility] Medical History (Updated 02/17/25 @ 22:[address] Sujey Stacy MD) Tobacco use Alcohol abuse Alcoholic pancreatitis Substance abuse Hx of renal calculi Home Medications ?Medication ?Instructions ?Recorded ?Last Taken ?Type methadone 10 mg tablet 100 mg PO DAILY 05/22/24 06/20/24 History Allergy/AdvReac Type Severity Reaction Status Date / Time levetiracetam (From [facility]) Allergy HIVES Verified 02/17/25 19:44 Family History (Updated 02/17/25 @ 22:[address] Sujey Stacy MD) Mother Hypertension Polysubstance abuse Father Hypertension Polysubstance abuse Alcohol abuse Other Cancer Surgical History Hx of tonsillectomy Social History (Updated 02/17/25 @ 22:[address] Sujey Stacy MD) household members: spouse Smoking Status: Current every day smoker tobacco type: e-cigarettes Electronic Cigarette Use: with nicotine alcohol intake: current alcohol intake frequency: 3 or more drinks per day Alcohol type: hard liquor details: Approximately 1 pint Francine daily substance use type: heroin, opiates and other details: Heroin/fentanyl 1 to 2 g daily snorted EXAM Physical Exam Const Vital Signs: 02/17/25 19:43 02/17/25 21:11 Temperature 98.4 F Temperature Source Oral Pulse Rate 119 H 100 Respiratory Rate 16 16 Blood Pressure 157/106 H 142/97 H Blood Pressure Mean 123 112 Pulse Ox 100 99 Oxygen Delivery Method Room Air MDM MDM MDM Narrative Medical decision making narrative: HISTORY OF PRESENT ILLNESS: Chief complaint: Alcohol and opioid detox 34-year-old male history of alcohol abuse, polysubstance abuse, heroin abuse, tobacco abuse, cannabis abuse presents with request for opiate and alcohol detox. Patient states he drinks 13% Francine drinks daily. Drinks approximately 8 of these daily. Last echo 2 minutes prior to arrival. Also notes he snorts heroin last ingestion of heroin was at 5 PM on 02/17/2025 denies any drug use or does cocaine methamphetamine. Denies any physical symptoms at this time. REVIEW OF SYSTEMS: Pertinent positives: Polysubstance abuse Pertinent negatives: Chest pain, abdominal pain PHYSICAL EXAM: Nursing triage notes reviewed, Vital signs reviewed Constitutional: please see mdm HENT: MMM Eyes: Pupils equal round and reactive to light, Extraocular muscles intact Neck: No stridor, no JVD, full neck ROM Lungs: Clear to auscultation, No wheezing or rales. No increased work of breathing, no conversational dyspnea, no accessory muscle use, no nasal flaring. No respiratory distress noted Heart: Regular rate and rhythm, No murmurs, No rubs and No gallops, 2+ distal pulses (radial, femoral, posterior tibial) in all extremities Abdomen: Soft, there is no tenderness, rigidity, rebound or guarding, no obvious peritoneal signs, no palpable pulsatile abdominal masses, no auscultated abdominal bruit : No CVAT Extremities: No edema Neuro: No new focal neurological deficits, cranial nerves II through XII intact, 5/5 strength in all present extremities. Intact sensation to light touch in all present extremities, 2+ reflexes bilateral patella tendons. Skin: No rash or lesions noted MEDICAL DECISION MAKING: Chief Complaint: please see HPI External records reviewed: Reviewed prior ED visit. Patient is on methadone reviewed PDMP Factors affecting care: As per HPI. Social determinants of health: history of polysubstance abuse History obtained from others: none Consults: Hospitalist (Dr. Stacy) [facility] Narrative: Patient was initially hypertensive with blood pressure 157/106, tachycardic with heart rate of 119, afebrile and nontoxic-appearing. Exam without focal abnormalities. Medical clearance labs were obtained. Patient was given Ativan and phenobarbital empirically given history of alcohol use, alcohol withdrawal and initial vital signs are concerning for alcohol withdrawal despite his history of recently drinking. ALL IMAGES (IF OBTAINED) HAVE BEEN PERSONALLY REVIEWED AND INTERPRETED BY MYSELF. CBC without leukocytosis, severe anemia, no thrombocytopenia. Awaiting BMP and alcohol level Alcohol level BMP without evidence of significant electrolyte abnormalities, no anion gap, no acute kidney injury. Discussed with hospitalist who agrees to admit the patient to our rehab program. Repeat vital signs showed improvement in blood pressure and heart rate with a blood pressure 142/97 and heart rate of 100 after Ativan and phenobarbital. The patient and/or family, caregivers express understanding. The patient and/or family, caregivers agrees with the plan. Shared decision making: I will have a discussion with the patient and or visitors regarding risk/benefits of further testing or admission. They will be made aware of of the risk/benefits inherent in this decision they will be given the opportunity to voice understanding. Total critical care time today provided was at least 0 minutes. This excludes separately billable procedures. Critical care time (if documented) is secondary to the patient having high probability of clinically significant/life threatening deterioration in the patient's condition which required my urgent intervention. Impression: 1. History of polysubstance abuse 2. Encounter for alcohol detoxification 3. Encounter for opioid detoxification Dispo: Admit to medical floor This note was generated with [employer] dictation software. It may contain incorrect words, spelling, and punctuation that were not noted in review of the chart prior to signing. Lab Data Labs: Laboratory Results - last 24 hr 02/17/25 21:00 WBC 7.0 RBC 4.43 L Hgb 13.2 Hct 38.2 L MCV 86.2 MCH 29.8 MCHC 34.6 RDW Std Deviation 41.9 RDW Coeff of Ida 13.4 Plt Count 239 MPV 9.6 Immature Gran % (Auto) 0.100 Neut % (Auto) 67.8 Lymph % (Auto) 24.4 [place] % (Auto) 7.4 Eos % (Auto) 0.0 Baso % (Auto) 0.3 Absolute Neuts (auto) 4.8 Absolute Lymphs (auto) 1.72 Nucleated RBC % 0 Sodium 142 Potassium 3.4 Chloride 105 Carbon Dioxide 21.7 Anion Gap 15 BUN 7 Creatinine 0.91 Estim Creat Clear Calc 102.09 Est GFR (MDRD) Non-Af 113 BUN/Creatinine Ratio 8.1 L Glucose 128 H Calcium 9.4 Ethyl Alcohol 239.0 H Discharge Plan Triage Chief Complaint: Substance Abuse ED Provider: Dada Caballero Dx/Rx/DC Orders Primary Care Provider: Care Physician,No Primary
--- NOTE | 2025-02-17 20:32 | EKG12_ITS ---
Test Reason : SUBSTANCE ABUSE Blood Pressure : */* mmHG Vent. Rate : 103 BPM Atrial Rate : 103 BPM P-R Int : 162 ms QRS Dur : 88 ms QT Int : 362 ms P-R-T Axes : 72 20 78 degrees QTcB Int : 474 ms Sinus tachycardia Otherwise normal ECG Confirmed by Osorio Castillo ([id number]), website/blog editor SHREYA REYES ([id number]) on 02/19/2025 6:44:10 AM Referred By: Confirmed By: Osorio Castillo
[2025-02-17 21:11] VITALS: BP 142/97; PULSE 100; RESP 16; O2SAT 99
[2025-02-17 21:18] LABS: Hematocrit 38.2 % (40-54); Hemoglobin 13.2 g/dL (13.0-16.5); Immature Granulocytes Count 0.010 X10^3/uL (0.0-0.0); Mean Corp Hgb Conc 34.6 g/dL (32-36); Mean Corpuscular Volume 86.2 fL (80-94); Mean Platelet Vol. 9.6 fl (6.2-12.0); NRBC Flagged by Analyzer 0 % (0-5); Platelet Count 239 K/mm3 (150-450); RBC Distribution Width CV 13.4 % (11.6-14.6); RBC Distribution Width SD 41.9 fl (35.1-43.9); Red Blood Count 4.43 M/mm3 (4.6-6.2); White Blood Count 7.0 K/mm3 (4.4-11.0)
--- NOTE | 2025-02-17 21:24 | PCM.HP.STD ---
HPI - General General Date of Admission: 02/17/25 Date of Service: 02/17/25 Chief Complaint: Heroin/EtOH detoxification HPI Narrative The patient is a 34 y/o M w/ PMHx: Polysubstance abuse (EtOH 1 pint Francine daily, last use 2 to 3 hours prior to ED arrival, Opiates heroin/fentanyl 1 to 2 g daily, used via snorting, last use similarly 2 to 3 hours prior to ED arrival), Tobacco use who presents to the [facility] ED on 02/17/2025 with ongoing substance abuse, both EtOH and opiates with requested detoxification from both alcohol and opiate use with onset now with mild withdrawal symptoms starting over the last possibly 30 minutes with mild fatigue, yawning, nausea, restlessness, body aches and diaphoresis. Patient is present in different room from his spouse who is also a substance user and patient does report that they use together occasionally. Workup in the ED included T98.4, heart rate 119, BP 157/106, respiratory rate 16, 100% on room air, CBC with WC 7.0, Hgb 13.2, platelet 239 without marked shift, BMP with glucose 128 otherwise unremarkable, ethyl alcohol 239. In the ED given concern for onset of withdrawal symptoms patient was initiated on Ativan 2 mg IV x 1, phenobarbital 97.2 mg p.o. x 1. [facility] Medical History (Updated 02/17/25 @ 22:[address] Sujey Stacy MD) Tobacco use Alcohol abuse Alcoholic pancreatitis Substance abuse Hx of renal calculi Home Medications ?Medication ?Instructions ?Recorded ?Last Taken ?Type methadone 10 mg tablet 100 mg PO DAILY 05/22/24 06/20/24 History Allergy/AdvReac Type Severity Reaction Status Date / Time levetiracetam (From [facility]) Allergy HIVES Verified 02/17/25 19:44 Family History (Updated 02/17/25 @ 22:[address] Sujey Stacy MD) Mother Hypertension Polysubstance abuse Father Hypertension Polysubstance abuse Alcohol abuse Other Cancer Surgical History Hx of tonsillectomy Social History (Updated 02/17/25 @ 22:[address] Sujey Stacy MD) household members: spouse Smoking Status: Current every day smoker tobacco type: e-cigarettes Electronic Cigarette Use: with nicotine alcohol intake: current alcohol intake frequency: 3 or more drinks per day Alcohol type: hard liquor details: Approximately 1 pint Francine daily substance use type: heroin, opiates and other details: Heroin/fentanyl 1 to 2 g daily snorted ROS ROS Narrative Admission Review of Systems: CONSTITUTIONAL: No weight loss, fever, chills, + weakness or fatigue. HEENT: + Rhinorrhea, congestion, frequent yawning during evaluation. Eyes: No visual loss, blurred vision, double vision or yellow sclerae. Ears, Nose, Throat: No hearing loss, sneezing, sore throat. SKIN: No rash or itching, lesions, wounds except occasional stage ecchymoses, abrasions, frequent cutting scars to the left forearm with patient noting he is right-handed. CARDIOVASCULAR: No chest pain, chest pressure or chest discomfort, palpitations, edema, orthopnea, syncopal events. RESPIRATORY: No shortness of breath, cough or sputum, wheezing, hemoptysis. GASTROINTESTINAL: + anorexia, mild nausea. No vomiting or diarrhea, abdominal pain, melena, BRBPR. GENITOURINARY: No dysuria, frequency, urgency or retention. NEUROLOGICAL: + Mild tremors, mild tactile disturbances, restlessness, very fatigued. No headache, dizziness, syncope, paralysis, ataxia, numbness or tingling in the extremities, focal weakness, change in bowel or bladder control, seizure. MUSCULOSKELETAL: + muscle, back pain, joint pain or stiffness. HEMATOLOGIC: No anemia, bleeding or bruising. LYMPHATICS: No enlarged nodes. No history of splenectomy. PSYCHIATRIC: No reported history of anxiety or depression. ENDOCRINOLOGIC: + Reports of sweating. No cold or heat intolerance. No polyuria or polydipsia. ALLERGIES: + History of hives. Vital Signs Vital Signs Vital Signs: 02/17/25 19:43 02/17/25 21:11 Temperature 98.4 F Temperature Source Oral Pulse Rate 119 H 100 Respiratory Rate 16 16 Blood Pressure 157/106 H 142/97 H Blood Pressure Mean 123 112 Pulse Ox 100 99 Oxygen Delivery Method Room Air Weight Weight: 139 lb 2 oz Body Mass Index (BMI) 21.1 Physical Exam Narrative Physical Examination: General: Awake, alert, oriented x 3 and cooperative, seated upright in the ED bed, fatigued, yawning frequently, very fatigued, restless. Skin: Normal color, normal turgor, no icterus, no cyanosis except occasional stage ecchymoses, abrasions, left forearm with old cutting scars noting that he is right-handed of note. HEENT: AT/NC, EOMI, PERRLA, moderately dry MM, no carotid bruits or JVD noted. Lungs: CTA bilaterally, moderate effort, mild decrease BL bases, no rales, ronchi or wheezing. Heart: Regular rate and rhythm; no gallop, rub audible. Abdomen: Soft, mild generalized discomfort but no rebound or guarding, ND, hyperactive BS, no appreciated HSM. Extremities: No cyanosis, no clubbing, no significant distal edema, see skin. Neurological: Patient awake, alert, oriented as noted, cognitive function intact although very fatigued and yawning frequently; pupils equally reactive to light and accommodation, cranial nerves grossly normal, moving all 4 extremities, no focal deficits, strength moderately globally decreased secondary to acute presentation, mildly tremulous, mild tactile disturbances reported, restless. Psychiatric: Affect appears fatigued, restless, no evidence of any anxiety or depressive feelings. Results Lab / Micro Data 02/17/25 21:00 02/17/25 21:00 Labs: Laboratory Results - last 24 hr 02/17/25 21:00: WBC 7.0, RBC 4.43 L, Hgb 13.2, Hct 38.2 L, MCV 86.2, MCH 29.8, MCHC 34.6, RDW Std Deviation 41.9, RDW Coeff of Ida 13.4, Plt Count 239, MPV 9.6, Immature Gran % (Auto) 0.100, Neut % (Auto) 67.8, Lymph % (Auto) 24.4, [place] % (Auto) 7.4, Eos % (Auto) 0.0, Baso % (Auto) 0.3, Absolute Neuts (auto) 4.8, Absolute Lymphs (auto) 1.72, Nucleated RBC % 0 Assessment & Plan Assessment/Plan (1) Admitted to alcohol detoxification center: PLAN: Plan The patient is a 34 y/o M w/ PMHx: Polysubstance abuse (EtOH 1 pint Francine daily, last use 2 to 3 hours prior to ED arrival, Opiates heroin/fentanyl 1 to 2 g daily, used via snorting, last use similarly 2 to 3 hours prior to ED arrival), Tobacco use who presents to the [facility] ED on 02/17/2025 with ongoing substance abuse, both EtOH and opiates with requested detoxification from both alcohol and opiate use with onset now with mild withdrawal symptoms. #1. Acute EtOH Withdrawal: Will admit to medical surgical floor, routine labs obtained in the ED upon presentation as noted. Will also request hepatic profile. Given interest in sobriety, will initiate and continue on protocol with taper course of Phenobarbital, scheduled gabapentin for seizure prophylaxis, as needed Catapres, Bentyl, Vistaril, IV fluids, IV antiemetics, Tylenol as needed for pain. Will consult Case management for assistance for transition to next level of rehabilitation care. Mag, phos pending. Maintain on CIWA protocol concurrently. #2. Acute Opiate Withdrawal: Given patient concurrent usage of several opiates, will additionally initiate and continue on protocol with tapering course of Subutex, as needed tylenol, ibuprofen, bowel regimen, gabapentin, Bentyl, Vistaril, methocarbamol, clonidine, PRN nightly trazodone for insomnia, IV fluids, IV antiemetics. Once patient clinically improved and completion of taper nearing will plan consultation with case management for transition to next level of rehabilitation care. #3. Polysubstance Abuse, Chronic: Will obtain HIV, syphilis and hepatitis panel given significant polysubstance use although does deny IV substance use. #4. Tobacco use: Encourage tobacco cessation, RT consulted for education, NR ordered. #5. DVT Prophylaxis: Low risk, encourage ambulation. Charges/Coding Visit Charges Inpatient E&M: 69529 Init Hosp L3
[2025-02-17 21:58] LABS: Alcohol, Blood (Medical)-Serum 239.0 mg/dL (<=10.0)
--- NOTE | 2025-02-17 21:58 | ED.RN ---
pt pulled out iv.
[2025-02-17 21:59] VITALS: BP 144/94; PULSE 87; RESP 16; TEMP 36.6; O2SAT 99
[2025-02-17 22:00] LABS: Anion Gap 15 (5-15); BUN 7 mg/dL (4-19); BUN/Creat Ratio 8.1 RATIO (10-20); Calcium,Total 9.4 mg/dL (7.6-11.0); Carbon Dioxide 21.7 mmol/L (21.0-32.0); Chloride 105 mmol/L (98-108); Estimated Creatinine Clearance 102.09 ml/min (50-250); Glucose 128 mg/dL (70-99); Potassium 3.4 mmol/L (3.3-5.1)
[2025-02-17 22:48] LABS: HIV Nonreactive (Nonreactive); Magnesium 2.0 mg/dL (1.5-2.2); Syphilis Antibodies Nonreactive (Nonreactive)
[2025-02-17 22:55] VITALS: BMI 20.2
[2025-02-17 23:58] VITALS: BP 109/67; PULSE 90; RESP 16; TEMP 36.3; O2SAT 97
[2025-02-18] MEDS: Lactated Ringers 1,000 ML 125 ML IV (00:34)
[2025-02-18 00:42] LABS: Hepatitis B Surface Antigen Nonreactive (Nonreactive); Hepatitis C Antibody REAC (Nonreactive)
[2025-02-18 03:50] VITALS: BP 131/95; PULSE 107; RESP 20; TEMP 36.6; O2SAT 100
[2025-02-18] MEDS: Nicotine (PBKC) 21 MG Patch TD ×2 (03:58→10:43)
--- NOTE | 2025-02-18 06:55 | PCM.PN.HOSP ---
Reason for Visit Chief Complaint: Heroin/EtOH detoxification Subjective Subjective Patient is a 34-year-old gentleman with history of polysubstance dependence admitted with acute alcohol withdrawal Objective Data Objective Data Vital Signs: Vital Signs Temp Pulse Resp BP Pulse Ox O2 Del Method 97.8 F 107 H 20 H 131/95 H 100 Room Air 02/18/25 03:50 02/18/25 03:50 02/18/25 03:50 02/18/25 03:50 02/18/25 03:50 02/17/25 23:58 Oxygen Delivery Method Room Air Weight: 61.9 kg Body Mass Index (BMI) 20.2 Intake & Output: Intake and Output for Last 24 Hours 02/16/25 02/17/25 02/18/25 23:59 23:59 23:59 Intake Total 0 / 0 Output Total 0 / 0 Balance 0 / 0 Lab / Micro Data 02/17/25 21:00 02/17/25 21:00 Labs: Laboratory Results - last 24 hr 02/17/25 21:00: WBC 7.0, RBC 4.43 L, Hgb 13.2, Hct 38.2 L, MCV 86.2, MCH 29.8, MCHC 34.6, RDW Std Deviation 41.9, RDW Coeff of Ida 13.4, Plt Count 239, MPV 9.6, Immature Gran % (Auto) 0.100, Neut % (Auto) 67.8, Lymph % (Auto) 24.4, [place] % (Auto) 7.4, Eos % (Auto) 0.0, Baso % (Auto) 0.3, Absolute Neuts (auto) 4.8, Absolute Lymphs (auto) 1.72, Nucleated RBC % 0, Sodium 142, Potassium 3.4, Chloride 105, Carbon Dioxide 21.7, Anion Gap 15, BUN 7, Creatinine 0.91, Estim Creat Clear Calc 102.09, Est GFR (MDRD) Non-Af 113, BUN/Creatinine Ratio 8.1 L, Glucose 128 H, Calcium 9.4, Phosphorus 2.9, Magnesium 2.0, Ethyl Alcohol 239.0 H, Syphilis Total Ab Nonreactive, Hep Bs Antigen Nonreactive, Hep Bs Antibody Nonreactive, Hepatitis C Antibody REAC, HIV 1&2 Antibody Nonreactive Physical Exam Narrative GENERAL: Patient in no apparent distress HEENT: Atraumatic; normocephalic EYES; Anicteric, Normal Conjunctiva NECK; supple, normal thyroid, RESPIRATORY: Diminished to auscultation CARDIOVASCULAR: Regular S1 S2, GI: soft, normoactive bowel sounds, : No Renal angle tenderness; EXTREMITIES: No edema, no clubbing, MUSCULOSKELETAL: no muscle wasting NEURO: Awake; no lateralizing signs. SKIN: No Rash PSYCH; Flat affect Assessment & Plan Assessment/Plan (1) Admitted to alcohol detoxification center: PLAN: Plan Patient is a 34-year-old gentleman with history of polysubstance dependence admitted with acute alcohol and opioid withdrawal 1. Alcohol intoxication at significant risk for -. Patient EtOH alcohol level on admission was 239. Patient has been admitted for treatment with phenobarb taper in addition to adjuvant medications including gabapentin, Bentyl, hydroxyzine and clonidine as needed for alcohol withdrawal symptoms. Patient was also placed on thiamine and folic ; consultation placed to [facility] counseling services 2. Acute opioid withdrawal - Patient has been admitted to regular nursing floor, managed buprenorphine taper along with other adjunctive medications for medical stabilization 3. Polysubstance dependence ? Patient presented with both alcohol and opioid withdrawal 4. Tobacco dependence ? Counseled on cessation, offered nicotine patch for tobacco cravings 5. DVT prophylaxis ? Low risk encourage ambulation Time spent in the patient's overall evaluation,decision-making process, review of diagnostic data, adjustment of management, discussion with other providers, nursing nursing and ancillary staff involved in patient's care documentation, 38 Minutes Charges/Coding Visit Charges Inpatient E&M: 03737 Subs Hosp L2
[2025-02-18 07:03] VITALS: BP 150/99; PULSE 102; RESP 16; TEMP 36.6; O2SAT 100
[2025-02-18 10:34] VITALS: BP 143/95; PULSE 108; RESP 14; TEMP 36.7; O2SAT 100
[2025-02-18] MEDS: Thiamine Hydrochloride 100 MG Tablet PO (10:43)
[2025-02-18] MEDS: Ensure Plus High Protein 120 ML LIQUID PO ×3 (10:44→19:26)
--- NOTE | 2025-02-18 12:02 | ADDICTION ---
Addendum entered by Linda Solis 02/18/25 12:08: Was able to meet with patient briefly. Will complete D/C planning tomorrow. Original Note: This internal communications writer attempted to meet with pt in his room. Pt was sleeping soundly, will meet tomorrow. This internal communications writer will attempt to meet with pt on 02/19 to complete assessments and d/c plan.
[2025-02-18 15:12] VITALS: BP 137/95; PULSE 92; RESP 13; TEMP 36.6; O2SAT 99
[2025-02-18] MEDS: hydrOXYzine PAM 25 MG Capsule 50 MG PO (15:58)
[2025-02-18 19:35] VITALS: BP 128/91; PULSE 89; RESP 14; TEMP 36.5; O2SAT 100
[2025-02-19 00:03] VITALS: BP 115/78; PULSE 92; RESP 16; TEMP 36.7; O2SAT 98
[2025-02-19] MEDS: Ensure Plus High Protein 120 ML LIQUID PO ×2 (00:07→11:24)
[2025-02-19] MEDS: 0.9% Saline Lock 10 ML Syringe IV (00:07)
[2025-02-19] MEDS: hydrOXYzine PAM 25 MG Capsule 50 MG PO (00:23)
[2025-02-19 04:39] VITALS: BP 121/86; PULSE 83; RESP 16; TEMP 36.5; O2SAT 99
--- NOTE | 2025-02-19 07:37 | PCM.PN.HOSP ---
Reason for Visit Chief Complaint: Heroin/EtOH detoxification Subjective Subjective Patient seen still complains of abdominal aches shakes as well as sweats. Objective Data Objective Data Vital Signs: Vital Signs Temp Pulse Resp BP Pulse Ox O2 Del Method 97.7 F L 83 16 121/86 H 99 Room Air 02/19/25 04:39 02/19/25 04:39 02/19/25 04:39 02/19/25 04:39 02/19/25 04:39 02/19/25 04:39 Oxygen Delivery Method Room Air Weight: 62 kg Body Mass Index (BMI) 20.2 Intake & Output: Intake and Output for Last 24 Hours 02/17/25 02/18/25 02/19/25 23:59 23:59 23:59 Intake Total 960.42 / 960.42 Output Total 0 / 0 Balance 960.42 / 960.42 Lab / Micro Data 02/17/25 21:00 02/17/25 21:00 Physical Exam Narrative GENERAL: Patient in no apparent distress HEENT: Atraumatic; normocephalic EYES; Anicteric, Normal Conjunctiva NECK; supple, normal thyroid, RESPIRATORY: Diminished to auscultation CARDIOVASCULAR: Regular S1 S2, GI: soft, normoactive bowel sounds, : No Renal angle tenderness; EXTREMITIES: No edema, no clubbing, MUSCULOSKELETAL: no muscle wasting NEURO: Awake; no lateralizing signs. SKIN: No Rash PSYCH; Flat affect Assessment & Plan Assessment/Plan (1) Admitted to alcohol detoxification center: PLAN: Plan Patient is a 34-year-old gentleman with history of polysubstance dependence admitted with acute alcohol and opioid withdrawal 1. Alcohol intoxication at significant risk for -. Patient EtOH alcohol level on admission was 239. Patient has been admitted for treatment with phenobarb taper in addition to adjuvant medications including gabapentin, Bentyl, hydroxyzine and clonidine as needed for alcohol withdrawal symptoms. Patient was also placed on thiamine and folic ; consultation placed to 180 counseling services ? 02/19/2025; patient remains significantly symptomatic we will continue with current treatment regimen 2. Acute opioid withdrawal - Patient has been admitted to regular nursing floor, managed buprenorphine taper along with other adjunctive medications for medical stabilization 3. Polysubstance dependence ? Patient presented with both alcohol and opioid withdrawal 4. Tobacco dependence ? Counseled on cessation, offered nicotine patch for tobacco cravings 5. DVT prophylaxis ? Low risk encourage ambulation Time spent in the patient's overall evaluation,decision-making process, review of diagnostic data, adjustment of management, discussion with other providers, nursing nursing and ancillary staff involved in patient's care documentation, 35 minutes Charges/Coding Visit Charges Inpatient E&M: 44091 Subs Hosp L2
[2025-02-19 11:22] VITALS: BP 135/92; PULSE 85; RESP 15; TEMP 36.4; O2SAT 99
[2025-02-19] MEDS: Thiamine Hydrochloride 100 MG Tablet PO (11:24)
[2025-02-19] MEDS: Nicotine (PBKC) 21 MG Patch TD (11:24)
--- NOTE | 2025-02-19 11:59 | ADDICTION ---
This scientific technical writer met with PT to conduct ASAM, MSE, DUDIT assessments and to plan for d/c. PT A+Ox4 and participated actively. All assessments completed. PT plans to f/u with [facility] for online treatment services due to transportation barriers. He reported he did have transportation home.
--- NOTE | 2025-02-19 12:45 | CHAPLAIN ---
Type of Pastoral Visit _x__ Initial Visit ___ Follow-up Visit ___ On-call Visit ___ General Patient Visit ___ Spiritual Assessment ___ Family Conference ___ Bereavement ___ Rapid Response ___ Code Blue ___ Other (describe below) Pastoral Care Referral From _x__ Patient ___ Family ___ Nurse ___ Physician ___ Reading Specialist ___ Pharmacy Manager ___ Other (describe below) Sacrament/Intervention _x__ Active listening ___ Anointing ___ Bahai ___ Bereavement ___ Communion _x__ Kamini exploration ___ _x__ Life review _x__ Prayer ___ Reconciliation ___ Sacrament of Sick _x__ Supportive presence ___ Wedding ___ Other (describe below) Pastoral Comments found patient in bed in a position and shivering; offered to get more blankets which was accepted; sat with patient and asked him to share his story and his concerns; pt is tearful throughout the visit and expresses great concern about losing his for good as I have really up; listened to patient describe his life as that of a series of bad, bad, and more bad; pt says that he takes responsibility for his decisions but states I am afraid that I have gone too far this time; pt speaks of some life history and upbringing; pt repeats that he doesn't know what to do; offered pt some options and asked him for some suggestions or ideas of actions to take; pt says that it may be too late for him; offered prospect of hope for some better days and changes in life; pt denies having any kamini in God but said he was willing to have prayers spoken for him; pt expressed appreciation for time taken with him and ended I have not talked to anyone for two days;
--- NOTE | 2025-02-19 12:50 | NURSING ---
INFORMED PATIENT WAS DRESSED AND IN THE HALLWAY WANTING TO LEAVE A.M.A. WHEN WALKED UP TO PATIENT STANDING AT BACK NURSE STATION FOUND PATIENT TALKING WITH RAMP NAVIGATOR. PT STATING HE WILL TURN THIS PLACE UPSIDE DOWN IF I HAVE TO TO FIND HIS TO GET THE KEYS TO THE VEHICLE. PT SIGNED PAPER TO LEAVE A.M.A. REQUESTED PATIENT RETURN TO HIS ROOM SO THIS NURSE COULD ASSIST WITH LOCATING REQUESTED KEYS. HRO ALREADY ON UNIT, DISCUSSED GETTING KEYS W/ RAMP NAVIGATOR AND HRO.
--- NOTE | 2025-02-19 13:08 | NURSING ---
TALKED WITH LYLA AND VICKY [facility] PATIENT. AWARE PER RAMP NAVIGATOR PT'S DECIDED TO STAY STATING THE CAR IS HERS AND HE CAN CALL HIS MOTHER. PT VERBALIZED HIS CELL PHONE IS . PRINCIPAL ARCHAEOLOGIST PROVIDED SO HE COULD CHARGE HIS PHONE TO CALL HIS FAMILY.
--- NOTE | 2025-02-19 13:46 | PCM.DC.SUM ---
Providers Date of Admission: 02/17/25 Date of Discharge: 02/19/25 Primary Care Physician: [facility] Reason For Visit: OPIATE,ETOH DETOXIFICATION Diagnosis Discharge Diagnosis (1) Admitted to alcohol detoxification center: Status: Acute Plan Patient is a 34-year-old gentleman with history of polysubstance dependence admitted with acute alcohol and opioid withdrawal 1. Alcohol intoxication at significant risk for -. Patient EtOH alcohol level on admission was 239. Patient has been admitted for treatment with phenobarb taper in addition to adjuvant medications including gabapentin, Bentyl, hydroxyzine and clonidine as needed for alcohol withdrawal symptoms. Patient was also placed on thiamine and folic ; consultation placed to 180 counseling services ? 02/19/2025; patient remains significantly symptomatic we will continue with current treatment regimen ? Patient elected to sign out AGAINST MEDICAL ADVICE attempt made for patient to rescind his decision proved Futile. He was instructed to come back to the emergency department if he changed his 2. Acute opioid withdrawal - Patient has been admitted to regular nursing floor, managed buprenorphine taper along with other adjunctive medications for medical stabilization 3. Polysubstance dependence ? Patient presented with both alcohol and opioid withdrawal 4. Tobacco dependence ? Counseled on cessation, offered nicotine patch for tobacco cravings 5. DVT prophylaxis ? Low risk encourage ambulation Time spent in the patient's overall evaluation,decision-making process, review of diagnostic data, adjustment of management, discussion with other providers, nursing nursing and ancillary staff involved in patient's care documentation, 35 minutes Medications at Discharge Home Medications methadone 10 mg tablet 100 mg PO DAILY 05/22/24 Physical Exam Narrative GENERAL: Patient in no apparent distress HEENT: Atraumatic; normocephalic EYES; Anicteric, Normal Conjunctiva NECK; supple, normal thyroid, RESPIRATORY: Diminished to auscultation CARDIOVASCULAR: Regular S1 S2, GI: soft, normoactive bowel sounds, : No Renal angle tenderness; EXTREMITIES: No edema, no clubbing, MUSCULOSKELETAL: no muscle wasting NEURO: Awake; no lateralizing signs. SKIN: No Rash PSYCH; Flat affect Weight / BMI Weight Weight: 62 kg Body Mass Index (BMI) 20.2 ABG / Lab / Microbiology Data 02/17/25 21:00 02/17/25 21:00 D/C Instructions Discharge Activity: Return to Normal Activity Call your doctor if you observe: Fever of 101 or Higher, Shortness of breath, Fainting spells and Chest pain DC O2, CPAP, BIPAP Needs Home O2 Discharge instructions: No Meaningful Use Info Meaningful Use Meaningful Use Diagnoses (Choose all that apply): None applicable Discharge Plan Admission Admit Date/Time: 02/17/25 21:24 Attending Provider: Phoenix Irvin Primary Care Provider: Care Physician,No Primary Consulting Providers: Sujey Stacy Discharge Orders/Prescriptions Prescriptions: No Action methadone 10 mg tablet 100 mg PO DAILY Patient Comments: pt gets dose daily from clinic. has saturday's dose with him Referrals / Follow Up: Care Physician,No Primary [Primary Care Provider] - Disposition Disposition (needs filled in before D/C Order can be placed): Against Medical Advice Charges/Coding Visit Charges Inpatient E&M: 26047 Disch Hosp >30min
--- NOTE | 2025-02-19 15:07 | CHAPLAIN ---
Type of Pastoral Visit ___ Initial Visit ___ Follow-up Visit ___ On-call Visit ___ General Patient Visit ___ Spiritual Assessment ___ Family Conference ___ Bereavement ___ Rapid Response ___ Code Blue ___ Other (describe below) Pastoral Care Referral From ___ Patient ___ Family ___ Nurse ___ Physician ___ Driver License Reviewing Officer ___ Nib Assembler ___ Other (describe below) Sacrament/Intervention ___ Active listening ___ Anointing ___ Cheondoism ___ Bereavement ___ Communion ___ Kamini exploration ___ ___ Life review ___ Prayer ___ Reconciliation ___ Sacrament of Sick ___ Supportive presence ___ Wedding ___ Other (describe below) Pastoral Comments in the same afternoon as the earlier visit, this car washer crossed in the hallway with patient who was dressed and ready to leave the building AMA; offered to talk with the patient before he exited to see if this decision was good; pt said that he heard that his had left AMA and he was going to be with her; pt admitted that this decision was probably a bad decision and he sat for several minutes with this car washer pondering his choices; finally the patient jumped up and said I've got to see her and he left for the parking lot; this car washer walked with him and patient saw his in the car ready to pull out of the lot; his stopped the car and she let him get in after a brief encounter of acceptance; pt thanked this car washer for being there for him but said again I'm sorry about this, but I just have to be with her; car pulled out of the parking lot; a few minutes later the HRO asked the car washer about this couple and he acknowledged that both had requested to leave AMA; this car washer verified that couple left of their free will and together without incident
== END 2025-02-19 14:06 | disposition left against medical advice (07) | DRG 770 ==
LOC: ED 21:33 → MS3 21:57
PROVIDERS: Admitting Provider Family Medicine; Emergency Provider Emergency Medicine; Visit Provider Internal Medicine
DX: F11.23 Opioid dependence with withdrawal (principal); F10.239 Alcohol dependence with withdrawal, unspecified; F19.139 Other psychoactive substance abuse with withdrawal, unspecified; F17.290 Nicotine dependence, other tobacco product, uncomplicated; Y90.7 Blood alcohol level of 200-239 mg/100 ml; Z53.29 Procedure and treatment not carried out because of patient's decision for other reasons
CPT/HCPCS: 80048; 82077; 83735; 84100; 85025; 86703; 86706; 86780; 86803; 87340; 93005; 97802; 99283; A4216

== ENCOUNTER 2025-05-04 16:05 | Inpatient (IN) | payer MEDICAID, SELFPAY ==
[2025-05-04 16:06] VITALS: BP 164/118; PULSE 107; RESP 22; TEMP 36.6; O2SAT 99; BMI 21.4
--- NOTE | 2025-05-04 16:49 | EX.ED.SAOD ---
HPI History of Present Illness Chief Complaint: Substance Abuse Detail of Chief Complaint: Requesting detox for alcohol and drug abuse. Informant: patient Onset/Context/Timing Onset: Month(s) Context: Gradual Onset Timing: Continuous Current Severity: Moderate Maximum Severity: Moderate Associated Symptoms Associated Symptoms: Positive for vomiting* and diarrhea* Narrative Narrative: 34-year-old male history of prior alcoholic pancreatitis and kidney stones. History of drug and alcohol abuse. Presents today requesting detox for use of heroin, fentanyl and alcohol. He says he drinks 10-15 alcoholic beverages a day. Last detox was earlier this year. Denies any fever. He has had some nausea and vomiting. He denies any IV drug abuse. Prior similar symptoms: Yes Recent Illness/Hospitalization: No PFSH PFSH Medical History Tobacco use Alcohol abuse Alcoholic pancreatitis Substance abuse Hx of renal calculi Home Medications ?Medication ?Instructions ?Recorded ?Last Taken ?Type methadone 10 mg tablet 100 mg PO DAILY 05/22/24 06/20/24 History Allergy/AdvReac Type Severity Reaction Status Date / Time levetiracetam (From [facility]) Allergy HIVES Verified 05/04/25 16:06 Family History Mother Hypertension Polysubstance abuse Father Hypertension Polysubstance abuse Alcohol abuse Other Cancer Surgical History Hx of tonsillectomy Social History household members: spouse Smoking Status: Current every day smoker tobacco type: e-cigarettes Electronic Cigarette Use: with nicotine alcohol intake: current alcohol intake frequency: 3 or more drinks per day Alcohol type: hard liquor details: Approximately 1 pint Francine daily substance use type: heroin, opiates and other details: Heroin/fentanyl 1 to 2 g daily snorted ROS ROS ED ROS Narrative Nausea, vomiting diarrhea. Constitutional Constitutional ED: Denies chills or fever(s) Eyes Eyes: Denies blurry vision ENT ENT ED: Denies ear pain Respiratory/Chest Respiratory/Chest: Denies cough or dyspnea Gastrointestinal Gastrointestinal: Reports diarrhea, nausea and vomiting; Denies abdominal pain, constipation or melena Genitourinary Genitourinary ED: Denies dysuria Musculoskeletal Musculoskeletal: Denies arthralgias Integumentary Denies abscess or Abrasions Neurologic Neurologic: Denies headache(s) Psychiatric Psychiatric: Denies anxiety or depression Endocrine Endocrinology: Denies cold intolerance Hematologic/Lymphatic Hematologic/Lymphatic: Denies easy bleeding, easy bruising or lymphadenopathy Allergic/Immunologic Allergic/Immunologic ED: Denies mouth swelling, tongue swelling or urticaria EXAM Physical Exam Narrative Exam Narrative: 34-year-old male sitting upright in bed. Vital signs are stable afebrile. He does not look septic toxic or any distress. His blood pressure is elevated 164/118. H EENT exam pupils round react light. Moist mucous membranes. Neck nontender no JVD. No lymphadenopathy. Lungs clear to auscultation bilaterally. Heart tachycardic 107 no murmur. Chest wall ribs nontender. Abdomen soft nontender. No peritoneal signs. Moving all 4 extremities. Nontender no edema. Old cutting superficial lacerations on his left forearm. 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 Normal range of motion. No infection. Dorsi plantarflexion intact. Calves nontender. Neurologically he is awake alert. He is answering questions following commands. Const Vital Signs: 05/04/25 16:06 Temperature 97.8 F Temperature Source Temporal Pulse Rate 107 H Respiratory Rate 22 H Blood Pressure 164/118 H Blood Pressure Mean 133 Pulse Ox 99 Oxygen Delivery Method Room Air MDM MDM MDM Narrative Medical decision making narrative: 34-year-old male history of heroin, fentanyl and alcohol abuse. Requesting detox. He will of an IV placed to the amount of alcohol he normally drinks and says he has gone through withdrawal before. Hospitalist is on page for admission. Screening labs have been sent and I will evaluate them when they return. Repeat exam patient is doing well at 5:39 PM. OB admitted for detox. History & Record Review Discussion w/independent historian: Patient Additional record(s) reviewed:: Prior inpatient record, Prior outpatient record, Prior ED visit and Prior labs Lab Data Attestation: I reviewed the patient's lab results. Lab results narrative: CBC unremarkable. White count of 6. H&H 15 and 44. Platelets 238. Electrolytes show gap 17. Pending creatinine of seven 0.9. Glucose 144. Liver enzymes are elevated including AST 347, ALT 176. Alk phos 155. Alcohol is elevated likely intoxicated alcohol level is 303. Labs: Laboratory Results - last 24 hr 05/04/25 16:59 WBC 6.4 RBC 5.00 Hgb 15.2 Hct 44.3 MCV 88.6 MCH 30.4 MCHC 34.3 RDW Std Deviation 42.5 RDW Coeff of Ida 13.2 Plt Count 238 MPV 8.8 Immature Gran % (Auto) 0.300 Neut % (Auto) 72.1 H Lymph % (Auto) 19.8 Burnet % (Auto) 6.0 Eos % (Auto) 1.3 Baso % (Auto) 0.5 Absolute Neuts (auto) 4.6 Absolute Lymphs (auto) 1.26 Nucleated RBC % 0 Sodium 138 Potassium 3.6 Chloride 97 L Carbon Dioxide 23.6 Anion Gap 17 H BUN 7 Creatinine 0.92 Estim Creat Clear Calc 102.10 Est GFR (MDRD) Non-Af 112 BUN/Creatinine Ratio 7.9 L Glucose 144 H Calcium 9.8 Total Bilirubin 0.57 AST 347 H ALT 176 H Alkaline Phosphatase 155 H Total Protein 9.0 H Albumin 5.1 H Globulin 3.9 Albumin/Globulin Ratio 1.3 Ethyl Alcohol 303.0 H* Discharge Plan Dx/Rx/DC Orders Clinical Impression: Polysubstance abuse, Alcohol abuse, Heroin abuse, Acute alcohol intoxication Disposition Disposition: Acute Care Hospital [facility]
--- NOTE | 2025-05-04 16:56 | HP.PCM.HOS_ITS ---
HPI - General General Date of Admission: 05/04/25 Date of Service: 05/04/25 Chief Complaint: Alcohol and opiate withdrawal and desire for detox HPI Narrative YU DOHERTY, is a 34 M who presented to [facility] ED on 05/04/2025 with alcohol and opiate withdrawal and desire for detox. He was last hospitalized here in February for the same concerns. He unfortunately opted to leave against medical advice on hospital day 3. Importantly, his significant other was also here for alcohol and opiate detox at that time and left AMA with him, and she is here again for detox today. He drinks 12-16 13% beers daily and last drink was in the ED waiting room here. Last opiate use was today around 2 PM. He snorts fentanyl daily. In the ED he was mildly hypertensive and had borderline sinus tachycardia, was otherwise stable on room air at rest. Alcohol level 303. UDS pending. Given desire for detox, hospitalist was contacted for admission. I saw patient at bedside in the ED. He was anxious appearing and shifting in bed constantly but otherwise was answering questions appropriately for me. Reported withdrawal symptoms of anxiety, nausea and bodyaches. No other acute concerns currently. Will be admitted for further management. [facility] Medical History Tobacco use Alcohol abuse Alcoholic pancreatitis Substance abuse Hx of renal calculi Allergy/AdvReac Type Severity Reaction Status Date / Time [facility] Allergy HIVES Verified 05/04/25 16:06 Family History Mother Hypertension Polysubstance abuse Father Hypertension Polysubstance abuse Alcohol abuse Other Cancer Surgical History Hx of tonsillectomy Social History household members: spouse Smoking Status: Current every day smoker tobacco type: e-cigarettes Electronic Cigarette Use: with nicotine alcohol intake: current alcohol intake frequency: 3 or more drinks per day Alcohol type: hard liquor details: Approximately 1 pint Francine daily substance use type: heroin, opiates and other details: Heroin/fentanyl 1 to 2 g daily snorted ROS Constitutional Constitutional: Denies chills, fatigue, fever(s) or weakness Cardiovascular Cardiovascular: Denies chest pain Respiratory/Chest Respiratory/Chest: Denies shortness of breath at rest Gastrointestinal Gastrointestinal: Reports nausea; Denies abdominal pain, constipation, diarrhea or vomiting Musculoskeletal Musculoskeletal: Reports myalgias; Denies arthralgias Neurologic Neurologic: Denies dizziness, focal weakness or headache(s) Psychiatric Psychiatric: Reports anxiety Vital Signs Vital Signs Vital Signs: 05/04/25 16:06 Temperature 97.8 F Temperature Source Temporal Pulse Rate 107 H Respiratory Rate 22 H Blood Pressure 164/118 H Blood Pressure Mean 133 Pulse Ox 99 Oxygen Delivery Method Room Air Weight Weight: 63.8 kg Body Mass Index (BMI) 21.4 Physical Exam Const alert, oriented x3 and average body habitus Constitutional Narrative: Younger male, anxious appearing and frequently shifting in bed, otherwise answering questions appropriately for me. General Appearance: cooperative HEENT normocephalic, head/scalp atraumatic, hearing grossly normal bilaterally, nasal mucous membranes and turbinates normal and moist oral mucous membranes Eyes PERRL, EOMs intact bilaterally and conjunctivae normal Neck full ROM Chest inspection of chest normal Resp normal respiratory effort, normal air movement, no use of accessory muscles and clear to auscultation bilaterally Cardio regular rate, regular rhythm, no murmurs and peripheral pulses 2+ throughout GI normal to inspection, nondistended, normoactive bowel sounds, soft to palpation, non-tender and non-distended Back/Spine normal ROM Extremity normal to inspection, full ROM and no pedal edema Skin no rashes or lesions noted Psych mental status grossly normal Mood & Affect: anxious Results Lab / Micro Data 05/04/25 16:59 05/04/25 16:59 Assessment & Plan Assessment/Plan (1) Alcohol abuse: (2) Opiate abuse, continuous: PLAN: Plan Patient is a 34-year-old male who presented to [facility] ED on 05/04/2025 with alcohol and opiate withdrawal and desire for detox. 1. Alcohol abuse with withdrawal ? Admit under inpatient status to [facility]. Case management consulted. Hospitalized here in early February for alcohol and opiate detox and unfortunately left AMA on hospital day 3. Drinking 12-16 13% beers daily, last drink in the ED waiting room on day of admission. Reports tolerating phenobarbital taper well in the past. Will treat with phenobarbital taper and other as needed medications per alcohol withdrawal order set. Notably his significant other came in with him and is going through the [facility] program as well; they left AMA together last hospitalization. Appreciate case management assistance. 2. Opiate abuse with withdrawal ? Case management consulted as above. Starting fentanyl daily, last use in afternoon on day of admission. Denies IV drug use. Refusing Subutex taper as this has apparently led to precipitated withdrawal for him in the past. Will treat with other as needed medications per opiate withdrawal order set. Appreciate case management assistance as above. 3. Elevated LFTs ? T. bili 0.5, AST 347, ALT 176, alk phos 155 on admit. Has had elevated LFTs like this in the past. Acute hepatitis panel negative in February. No abdominal pain noted. Presume secondary to alcohol use. No need to trend further LFTs, can follow-up outpatient. 4. Tobacco dependence ? Nicotine replacement therapy available per patient request. Discussed cessation on discharge. DVT prophylaxis: Low risk, ambulate CODE STATUS: Full code, verified Expected disposition: TBD Total clinical time spent by myself addressing the patient's medical issues, reviewing all the data, and collaborating with patient's care team: 58 minutes. Charges/Coding Visit Charges Inpatient E&M: 94718 Init Hosp L2
[2025-05-04 17:06] VITALS: BP 136/76; PULSE 91; RESP 16; O2SAT 98
[2025-05-04 17:07] LABS: Hematocrit 44.3 % (40-54); Hemoglobin 15.2 g/dL (13.0-16.5); Immature Granulocytes Count 0.020 X10^3/uL (0.0-0.0); Mean Corp Hgb Conc 34.3 g/dL (32-36); Mean Corpuscular Volume 88.6 fL (80-94); Mean Platelet Vol. 8.8 fl (6.2-12.0); NRBC Flagged by Analyzer 0 % (0-5); Platelet Count 238 K/mm3 (150-450); RBC Distribution Width CV 13.2 % (11.6-14.6); RBC Distribution Width SD 42.5 fl (35.1-43.9); Red Blood Count 5.00 M/mm3 (4.6-6.2); White Blood Count 6.4 K/mm3 (4.4-11.0)
[2025-05-04 17:34] LABS: AST(SGOT) 347 U/L (<=37); Alanine Aminotransfer ALT/SGPT 176 U/L (<=46); Albumin, Serum 5.1 g/dL (3.5-5.0); Alkaline Phosphatase 155 U/L (40-129); Anion Gap 17 (5-15); BUN 7 mg/dL (4-19); BUN/Creat Ratio 7.9 RATIO (10-20); Calcium,Total 9.8 mg/dL (7.6-11.0); Carbon Dioxide 23.6 mmol/L (21.0-32.0); Chloride 97 mmol/L (98-108); Estimated Creatinine Clearance 102.10 ml/min (50-250); Globulin 3.9 g/dL (2.2-4.2); Glucose 144 mg/dL (70-99); Potassium 3.6 mmol/L (3.3-5.1)
[2025-05-04 17:37] LABS: Alcohol, Blood (Medical)-Serum 303.0 mg/dL (<=10.0)
[2025-05-04 18:03] VITALS: BP 149/110; PULSE 160; RESP 32; TEMP 36.6; O2SAT 99
[2025-05-04 18:33] LABS: Barbiturate Urine NEGATIVE (< 200 ng/mL); Benzodiazepine Urine NEGATIVE (< 200 ng/mL); PCP Urine NEGATIVE (< 25 ng/mL); THC Urine NEGATIVE (< 50 ng/mL)
--- NOTE | 2025-05-04 18:41 | ED.RN ---
pt admitted to having smirnoff in his cup that he has brought from home. RN educated pt on not being allowed to drink in the department. Pt then dumped entire cup in the sink and rinsed cup out.
[2025-05-04 18:45] VITALS: BP 133/86; PULSE 93; RESP 12; O2SAT 99
--- NOTE | 2025-05-04 18:53 | ED.RN ---
This RN to bedside d/t pt HR >160. Pt placed on heart monitor and dr. Schwartz notified. ordered 1mg Ativan injection.
--- OUTSIDE RECORDS SUMMARY | 2025-05-04 19:40 | XMS RPT_ITS | CCD ---
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 Name Role Phone YU CRUMP Unavailable Unavailable NO FAMILY PHYSICIAN, 837 Unavailable Unavail able O'Day, Carmen S Unavailable Unavailable Physician, No Family Unavailable Unavailable Physician, No Family Unavailable Unavailable Maria Teresa Monaco Primary Care Provider Dante Billy Admitting Unavailable Dante Billy Attending Unavailable Tre, Will S Admitting Unavailable [place], Will S Attending Unavailable Tre, Will S Admitting Unavailable Tre, Will S Attending Unavailable Unavailable Primary Care Provider UnavailTelly Deleon Primary Care Provider Debbie, Telly Primary Care Provider Unavailable Primary Care Provider UnavailDAVID Silva Attending Unavailable Justin Pearce MD Primary Care Provider Karen Real Unavailable Unavailable TOMASA HOANG Attending Unavailable JUSTIN PEARCE Primary Care Unavailable SHEILA OLSON Attending Unavailable JUSTIN PEARCE Primary Care Unavailable MORALES JAIMES Attending Unavailable JUSTIN PEARCE Primary Care Unavailable [facility] Attending Doni post SYSTEM, PROVIDER NOT IN Referring UnavailJUSTIN Cano Primary Care Unavailable ROSALBA PARK Admitting Unavailable RICHARD PASTRANA Attending Unavailable [facility] Consulting JUSTIN Kahn Primary Care Unavailable Care Physician, No Primary Primary Care Provider Unavailable Dr. Dada Caballero DO Emergency Provider [phone] Tawanna INFANTE, Dr. Sujey Bolaños Admit Provider Tawanna INFANTE, Dr. Sujey Bolaños Attending Provider Tawanna INFANTE, Dr. Sujey Bolaños Other Provider [phone] Albaro INFANTE, Dr. Garibay Attending Provider Unavaila zoya Irvin MD, Dr. Garibay Other Provider Unavailable Care Physician, No Primary Primary Care Unava ilable David Mcguire F Admitting Unavailable David Mcguire Consulting Unavailable Majo Terrazas Attending Unavailable Care Physician, No Primary Primary Care Unava ilable Phoenix Ramsey Consulting Unavailable David Mcguire Attending Unavailable Phoenix Ramsey Admitting Unavailable Sorin Connell Consulting Unavailable David Mcguire Consulting Unavailable David Mcguire Admitting Unavailable David Mcguire Attending Unavailable Care Physician, No Primary Primary Care Unava ilable Care Physician, No Primary Primary Care Unava ilable Phoenix Ramsey Consulting Unavailable Phoenix Ramsey Admitting Unavailable Sorin Connell Attending Unavailable Sorin Connell Consulting Unavailable Majo Terrazas Attending Unavailable Majo Terrazas Consulting Unavailable Phoenix Ramsey Attending Unavailable Care Physician, No Primary Primary Care Unava ilable Sujey Satcy Admitting Unavailable Sujey Stacy Attending Unavailable Sujey Stacy Consulting Unavailable Phoenix Irvin Attending Unavailable Phoenix Irvin Consulting Unavailable Phoenix Ramsey Admitting Unavailable de Phoenix Garcia Consulting Unavailable Yu Ball Attending Unavailable Care Physician, No Primary Primary Care Unava ilable Care Physician, No Primary Primary Care Unava ilable Sujey Stacy L Consulting Unavailable Sujey Stacy Admitting Unavailable Phoenix Irvin Attending Unavailable Phoenix Ramsey Admitting Unavailable de Phoenix Garcia Attending Unavailable Phoenix Ramsey Consulting Unavailable Care Physician, No Primary Primary Care Unava ilable Yu Ball Attending Unavailable Yu Ball Consulting Unavailable Allergies Allergy Classification Reported Allergen(s) Allergy Type Date of Onset Reaction(s) Facility (7 sources) levETIRAcetam; Translations: [LEVETIRACETAM] Drug Allergy 04-03-2018 [facility] (1 source) levETIRAcetam Drug Allergy 02-17-[address] [facility] Repository Medications Current Medications Medication Drug Class(es) Dates Sig (Normalized) Sig (Original) folic acid 1 mg oral tablet (2 sources) Start: 04-23-2024 End: 05-23-2024 take 1 tablet by mouth once daily folic acid (FOLVITE) 1 MG tablet Take 1 (one) tablet (1 mg total) by mouth daily . 30 tablet 04/23/2024 12:35 PM EST 04/23/2024 05/23/2024 Active lisinopril 5 mg oral tablet (2 sources) Angiotensin Converting Enzyme Inhibitor Start: 08-20-2018 take 1 tablet by mouth once daily lisinopril (PRINIVIL,ZESTRIL) 5 MG tablet Indications: Benign hypertension Take 1 (one) tablet (5 mg total) by mouth daily . 90 tablet 0 08/20/2018 Active methadone hydrochloride 10 mg oral tablet (3 sources) Opioid Agonist Start: 05-22-2024 take 1 tablet by mouth once daily Methadone 10 mg tablet Active 100 mg PO DAILY 0 May 22, 2024 1:00am End: 04-23-2024 take 18 mL by mouth once methadone (DOLOPHINE) 10 mg/ mL solution Indications: opioid use disorder Take 18 mL (180 mg total) by mouth once daily Per Patient Report Reasons: opioid use disorder. 04/23/2024 Discontinued (Stop Taking at Discharge) potassium, sodium phosphates (PHOS-NAK) 280-160-250 mg PwPk (2 sources) Start: 04-23-2024 End: 04-25-2024 take 1 dose by mouth four times daily potassium, sodium phosphates (PHOS-NAK) 280-160-250 mg PwPk Dissolve one packet in 3 oz of liquid and drink by mouth 4 (four) times a day for 2 days . 8 packet 04/23/2024 12:35 PM EST 04/23/2024 04/25/2024 Active Start: 04-23-2024 End: 04-25-2024 take 1 dose by mouth four times daily potassium, sodium phosphates (PHOS-NAK) 280-160-250 mg PwPk Dissolve one packet in 3 oz of liquid and drink by mouth 4 (four) times a day for 2 days . 8 packet 04/23/2024 12:35 PM EST 04/23/2024 04/25/2024 thiamine 100 mg oral tablet (4 sources) Start: 04-23-2024 End: 05-23-2024 take 1 tablet by mouth once daily thiamine 100 MG tablet Take 1 (one) tablet (100 mg total) by mouth daily . 30 tablet 04/23/2024 12:35 PM EST 04/23/2024 05/23/2024 Active Start: 04-20-2024 End: 04-23-2024 100 mg, Intravenous, Daily ( in the afternoon), First dose on Sat04/20/24 at 1300, Administer at a rate of 200 mg/minute if IV Push Completed/Discontinued Medications Medication Drug Class(es) Dates Sig (Normalized) Sig (Original) acetaminophen 325 mg oral tablet (1 source) Start: 04-19-2024 End: 04-23-2024 take 1 tablet by mouth every four hours as needed for pain and headache amitriptyline hydrochloride 75 mg oral tablet (1 source) Tricyclic Antidepressant Start: 09-28-2021 End: 04-23-2024 take 1 tablet by mouth once daily amitriptyline (ELAVIL) 75 MG tablet Indications: Encounter for long-term opiate analgesic use Take 1 (one) tablet (75 mg total) by mouth nightly for 7 days . 7 tablet 09/28/2021 04/23/2024 Discontinued (Stop Taking at Discharge) bisacodyl 10 mg rectal suppository (1 source) Stimulant Laxative Start: 04-20-2024 End: 04-23-2024 take 10 mg rectal route once daily as needed for constipation 10 mg, Rectal, Daily PRN, constipation, Starting on Sat04/20/24 at 0931 cloNIDine hydrochloride 0.1 mg oral tablet (1 source) Central alpha-2 Adrenergic Agonist Start: 09-28-2021 End: 04-23-2024 take 1 tablet by mouth twice daily cloNIDine HCL (CATAPRES) 0.1 MG tablet Indications: Encounter for long-term opiate analgesic use Take 1 (one) tablet (0.1 mg total) by mouth 2 (two) times a day for 7 days . 14 tablet 09/28/2021 04/23/2024 Discontinued (Stop Taking at Discharge) diazePAM (1 source) Benzodiazepine Start: 04-19-2024 End: 04-23-2024 take 5-15 mg by mouth every hour as needed diazePAM (VALIUM) tablet 5-15 mg docusate sodium 50 mg / sennosides, longterm 8.6 mg oral tablet (1 source) Start: 04-20-2024 End: 04-23-2024 take 1 tablet by mouth twice daily 1 tablet, Oral, 2 times daily, First dose on Sat04/20/24 at 1100, NOT for abdominal surgery patients. Hold for loose stools. Do Not Crush or Chew if administering orally due to bitter taste. May be crushed if given via tube. famotidine (PEPCID) Vial 20 mg (1 source) Start: 04-19-2024 End: 04-19-2024 20 mg, Intravenous, Once, On Sat04/19/24 at 1450, For 1 dose, Aseptically dilute dose of famotidine injection with 0.9% NaCl to a total volume of either 5 ml or 10 ml and inject over 2 minutes. gabapentin 400 mg oral capsule (4 sources) Anti-epileptic Agent Start: 09-28-2021 End: 04-23-2024 gabapentin (NEURONTIN) 400 MG capsule Indications: Seizures (HCC) Take 1 (one) capsule (400 mg total) by mouth every 8 (eight) hours (Days supply per fill: 30 day supply . 90 capsule 09/28/2021 04/23/2024 Discontinued (Stop Taking at Discharge) Start: 01-02-2019 gabapentin (NE URONTIN) 300 MG capsule Indications: Seizures (HCC) Take 1 (one) capsule (300 mg total) by mouth every 8 (eight) hours (Days supply per fill: 30 day supply Start: 01/02/19. 90 capsule 0 01/02/2019 Active Start: 05-28-2018 End: 08-26-2018 gabapentin (NEURONTIN) 300 M G capsule Indications: Seizures (HCC) Take 1 (one) capsule (300 mg total) by mouth every 8 (eight) hours (Days supply per fill: 30 day supply . 270 capsule 0 08/20/2018 Active 1 ml heparin sodium, porcine 5000 unt/ml injection (1 source) Unfractionated Heparin, Anti-coagulant Start: 04-19-2024 End: 04-23-2024 inject 5000 [IU] by subcutaneous injection every eight hours 5,000 Units, Subcutaneous, Every 8 hours scheduled, First dose on Sat04/19/24 at 1730, Notify physician if patient refuses. 0.5 ml HYDROmorphone hydrochloride 1 mg/ml prefilled syringe (4 sources) Opioid Agonist Start: 04-21-2024 End: 04-21-2024 1 mg, Intravenous, Once, On Sat04/21/24 at 1200, For 1 dose Start: 04-20-2024 End: 04-22-2024 take 0.5-1.5 mg intravenously every three hours as needed 0.5-1.5 mg, Intravenous, Every 3 hours PRN (may repeat), moderate to severe pain, Starting on Sat04/20/24 at 0930, Initiate with 1 mg IV every 3 hours prn moderate to severe pain. For unrelieved pain, may give additional 0.5 mg within 30 minutes of initial dose. If pain is RELIEVED after repeat dose, change to 1.5 mg every 3 hours prn moderate to severe pain. If pain is UNrelieved after repeat dose or patient requires dose reduction, call physician. May use IV for breakthrough or if unable to tolerate enteral routes. Start: 04-19-2024 End: 04-20-2024 take 0.5 mg intravenously every four hours as needed 0.5 mg, Intravenous, Every 4 hours PRN, moderate to severe pain, Starting on Sat04/19/24 at 1522 Start: 04-19-2024 End: 04-19-2024 0.5 mg, Intravenous, ONCE, 1 dose, On Sat04/19/24 at 0800 iohexol (OMNIPAQUE) 350 MG/ML injection 75 mL (1 source) Start: 04-19-2024 End: 04-19-2024 75 mL, Intravenous, ONCE, 1 dose, On Sat04/19/24 at 0530, Extravasation Risk, Radiology Procedure Iopamidol (1 source) Radiographic Contrast Agent Start: 04-21-2024 End: 04-21-2024 6 mL, Oral, Every 30 min PRN, contrast, Starting on Sat04/21/24 at 1058, For 3 doses, Dilute each 6mls with 300mls cold water prior to oral administration iopamidoL (ISOVUE-370) 370 mg iodine /mL (76 %) injection 75 mL (1 source) Start: 04-21-2024 End: 04-21-2024 75 mL, Intravenous, Once in imaging, contrast, Starting on Sat04/21/24 at 1058, For 1 dose 1 ml ketorolac tromethamine 30 mg/ml cartridge (1 source) Nonsteroidal Anti-inflammatory Drug, Cyclooxygenase Inhibitor Start: 04-19-2024 End: 04-19-2024 30 mg, Intravenous, ONCE, 1 dose, On Sat04/19/24 at 0430 50 ml magnesium sulfate 40 mg/ml injection (1 source) Start: 04-19-2024 End: 04-20-2024 2 g, Intravenous, at 25 mL/hr, Once, On Sat04/19/24 at 1800, For 1 dose, Indication: Hypomagnesemia methadone (DOLOPHINE) 10 mg/ml solution(Oral Syringe) 5 mg (1 source) Start: 04-22-2024 End: 04-23-2024 5 mg, Oral, Every 12 hours scheduled, First dose on Sat04/22/24 at 0945, Notify prescribing physician and hold methadone if Respiratory Rate less than 10, if POSS Sedation score of 3 or 4, or RASS of -3, -4 or -5 (non-ventilated patients). May cause QT interval prolongation. Verify patient has received Patient Med Guide for methadone., Indication for methadone: Treatment of opioid dependence, Is this a continuation of home therapy? Yes 2 ml metoclopramide 5 mg/ml injection (1 source) Dopamine-2 Receptor Antagonist Start: 04-21-2024 End: 04-21-2024 5 mg, Intravenous, Once, On Sat04/21/24 at 1245, For 1 dose Start: 04-21-2024 End: 04-21-2024 5 mg, Intravenous, Once, On Sat04/21/24 at 1245, For 1 dose 1 ml morphine sulfate 2 mg/ml cartridge (2 sources) Opioid Agonist Start: 04-22-2024 End: 04-23-2024 take 2 mg intravenously every six hours as needed 2 mg, Intravenous, Every 6 hours PRN, moderate to severe pain, Starting on Sat04/22/24 at 0846 Start: 04-19-2024 End: 04-19-2024 4 mg, Intravenous, Once, On Sat04/19/24 at 1450, For 1 dose naloxone (NARCAN) injection 0.1 mg (1 source) Start: 04-19-2024 End: 04-23-2024 naloxone (NARCAN) injection 0.1 mg 24 hr nicotine 0.875 mg/hr transdermal system (1 source) Cholinergic Nicotinic Agonist Start: 04-20-2024 End: 04-23-2024 apply 1 dose transdermal route once daily 1 patch, Transdermal, Administer over 24 Hours, Daily, First dose on 04/20/24 at 1130, U/P Listed Hazardous Drug. Waste Must Be Disposed in [employer] Waste Container ondansetron 8 mg oral tablet (6 sources) Serotonin-3 Receptor Antagonist Start: 06-23-2024 End: 02-17-2025 take 1 tablet by mouth every eight hours as needed for nausea Ondansetron Hcl 8 mg Tablet Discontinued 8 mg PO EVERY 8 HOURS NEEDED as needed for Nausea 21 7 0 June 23, 2024 1:00am February 17, 2025 9:14pm Start: 04-19-2024 End: 04-19-2024 4 mg, Intravenous, Once, On 04/19/24 at 1450, For 1 dose Start: 04-19-2024 End: 04-19-2024 4 mg, Intravenous, ONCE, 1 d ose, On 04/19/24 at 0800 Start: 04-19-2024 End: 04-19-2024 1 dose, Starting on 04/19 at 0344, Until Sat04/19/24 at 0430, Maribel Good: cabinet override ondansetron (ZOFRAN-ODT) disintegrating tablet 4 mg (1 source) Start: 04-19-2024 End: 04-23-2024 take 1 tablet by mouth every six hours as needed for nausea and vomiting ondansetron (ZOFRAN-ODT) disintegrating tablet 4 mg pantoprazole (PROTONIX) Vial 40 mg (1 source) Start: 04-19-2024 End: 04-19-2024 40 mg, Intravenous, Once, On 04/19/24 at 1450, For 1 dose, Dilute each vial with 10 mL of 0.9% NaCl. PHENobarbital 65 mg/ml injectable solution (1 source) Start: 04-19-2024 End: 04-23-2024 inject 65 mg by intramuscular injection every six hours as needed 65 mg, Intramuscular, Every 6 hours PRN, Two of the following: SBP greater than 160 or DBP greater than 100, Significant agitation (RASS greater than +2), HR greater than 110, Diaphoresis, tremors, Hallucinations, Starting on 04/19/24 at 1456, For 102 hours, VESICANT microencapsulated potassium chloride 20 meq extended release oral tablet (2 sources) Start: 04-22-2024 End: 04-22-2024 40 mEq, Oral, Once, On Sat04/22/24 at 0930, For 1 dose, DO NOT CRUSH OR CHEW (if instructed may dissolve tablet(s) in liquid) DO NOT ADMINISTER DISSOLVED TABLET VIA SURGICALLY PLACED TUBE OR TUBE less than 14 [place]. To administer dissolved tablet(s) mix with 4 ounces of water over 2-3 minutes, stir for 30 seconds prior to administration; rinse dosing cup and administer residual medication to ensure full dose given potassium phosphate 155 mg / sodium phosphate, dibasic 852 mg / sodium phosphate, monobasic 130 mg oral tablet (1 source) Start: 04-23-2024 End: 04-23-2024 take 250 mg by mouth four times daily 250 mg, Oral, 4 times daily, First dose on Nelly 04/23/24 at 0915, For 4 doses potassium phosphate 15 mmol in sodium chloride 0.9 % (NS) 250 mL IVPB (1 source) Start: 04-19-2024 End: 04-20-2024 15 mmol, Intravenous, Administer over 5 Hours, Once, On 04/19/24 at 1815, For 1 dose potassium, sodium phosphates (PHOS-NAK) 280-160-250 mg packet 2 packet (1 source) Start: 04-21-2024 End: 04-22-2024 2 packet, Oral, 4 times daily with meals and nightly, First dose on Sat04/21/24 at 1700, For 3 doses, mg dosing is based on phosphorus component. Each packet contains 250 mg elemental phosphorus. rOPINIRole 0.5 mg oral tablet (1 source) Nonergot Dopamine Agonist Start: 09-28-2021 End: 04-23-2024 take 1 tablet by mouth once daily rOPINIRole (REQUIP) 0.5 MG tablet Indications: Restless legs Take 1 (one) tablet (0.5 mg total) by mouth nightly . 30 tablet 2 09/28/2021 04/23/2024 Discontinued (Stop Taking at Discharge) sennosides, longterm 8.6 mg oral tablet (1 source) Start: 04-19-2024 End: 04-23-2024 sertraline 50 mg oral tablet (2 sources) Serotonin Reuptake Inhibitor Start: 08-05-2020 End: 05-22-2024 take 1 tablet by mouth once daily Sertraline 50 MG tablet Discontinued 50 mg PO DAILY 30 0 August 05, 2020 1:00am May 22, 2024 8:33pm 1000 ml sodium chloride 9 mg/ml injection (6 sources) Start: 04-19-2024 End: 04-22-2024 take 100 mL intravenously every hour 100 mL/hr, Intravenous, Continuous, Starting on 04/19/24 at 1525 Start: 04-19-2024 End: 04-19-2024 1,000 mL, Intravenous, at 3, 750 mL/hr, Once, On 04/19/24 at 1450, For 1 dose Start: 04-19-2024 End: 04-19-2024 1,000 mL, Intravenous, ONCE, 1 dose, On 04/19/24 at 0700 sodium phosphate 30 mmol in dextrose (D5W) 5% 250 mL IVPB (1 source) Start: 04-23-2024 End: 04-23-2024 30 mmol, Intravenous, Admini ster over 5 Hours, Once, On Nelly 04/23/24 at 1030, For 1 dose Problems Active Problems Problem Classification Problem Date Documented Date Episodic/Chronic Alcohol-related disorders (20 sources) Alcohol withdrawal syndrome; Translations: [Alcohol withdrawal syndrome without complication (HCC)] Onset: 05-26-2024 04-19-2024 Chronic Chronic kidney disease (2 sources) Chronic kidney disease, unspecified; Translations: [Chronic kidney disease, unspecified] Onset: 01-27-2024 Chronic Coagulation and hemorrhagic disorders (3 sources) Thrombocytopenic disorder; Translations: [Thrombocytopenia, unspecified] Onset: 07-22-2024 07-17-2024 Chronic Essential hypertension (3 sources) Benign hypertension; Translations: [Essential (primary) hypertension] Onset: 08-20-2018 08-20-2018 Chronic Other hereditary and degenerative nervous system conditions (1 source) Restless legs; Translations: [Restless legs syndrome] Onset: 09-29-2021 09-29-2021 Chronic Other liver diseases (2 sources) Enzyme level - finding; Translations: [Elevated transaminase measurement] 05-22-2024 Episodic Pancreatic disorders (not diabetes) (1 source) Alcohol-induced chronic pancreatitis; Translations: [Alcohol-induced chronic pancreatitis] Onset: 05-26-2024 Chronic Pancreatic disorders (not diabetes) (13 sources) Alcohol-induced acute pancreatitis; Translations: [Alcohol induced acute pancreatitis without necrosis or infection] Onset: 04-19-2024 04-19-2024 Episodic Residual codes; unclassified (2 sources) Tobacco user; Translations: [Tobacco use] 05-23-2024 Episodic Substance-related disorders (20 sources) Nicotine dependence; Translations: [Tobacco dependence caused by cigarettes] Onset: 08-20-2018 08-20-2018 Chronic Unclassified (1 source) Alcohol use, unspecified with withdrawal, uncomplicated; Translations: [Alcohol use, unspecified with withdrawal, uncomplicated] Onset: 04-19-2024 Unclassified (6 sources) Admitted to alcohol detoxification center 06-20-2024 Unclassified (1 source) Opioid abuse with withdrawal; Translations: [Opioid abuse with withdrawal] Onset: 07-22-2024 Past or Other Problems Problem Classification Problem Date Documented Da te Episodic/Chronic Alcohol-related disorders (6 sources) Alcohol use, unspecified with intoxication, unspecified; Translations: [Acute alcoholic intoxication] Onset: 05-26-2024 05-23-2024 Episodic Calculus of urinary tract (1 source) Unspecified renal colic; Translations: [Unspecified renal colic] Onset: 08-24-2017 Episodic Epilepsy; convulsions (7 sources) Seizure; Translations: [Unspecified convulsions] Onset: 05-27-2018 05-27-2018 Episodic Fluid and electrolyte disorders (5 sources) Hypokalemia; Translations: [Hypokalemia] Onset: 05-26-2024 05-23-2024 Episodic Other aftercare (1 source) Patient encounter status; 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] Onset: 09-29-2021 09-29-2021 Episodic Other injuries and conditions due to external causes (2 sources) Foreign body in left ear, initial encounter; Translations: [Foreign body in left ear, initial encounter] Onset: 09-06-2023 Episodic Poisoning by other medications and drugs (1 source) Accidental drug overdose; Translations: [Accidental drug overdose, initial encounter] Episodic Residual codes; unclassified (1 source) Tobacco use; Translations: [Tobacco use] Onset: 07-22-2024 Episodic Substance-related disorders (7 sources) Other stimulant use, unspecified, uncomplicated; Translations: [Opioid withdrawal] Onset: 01-05-2024 Episodic Unclassified (1 source) Alcohol use, unspecified with withdrawal, uncomplicated; Translations: [Alcohol use, unspecified with withdrawal, uncomplicated] Onset: 04-19-2024 Unclassified (2 sources) Denies previous medical history 02-17-2025 Results Test Name Value Interpretation Reference Range Facility Electrocardiogram reportOrde red By: Bhavesh Castillo on 02-19-2025 EKG study [facility] Cardi[facility] Services [address] [place] [address] 12 Lead EKG 02/17/25 2100 MR#: [id number] Acct: [id number] Name: YU YOUNGER Rep #:[id number] : 1990 34 From: Bhavesh roth MD Attending Dr: Dr. Phoenix Irvin MD Status: ADM IN Ordering Dr: Dada Caballero DO Date: 0 02/17/25 Location: [facility] Sex: M C Admitted: 02/17/25 Test Reason : SUBSTANCE ABUSE Blood Pressure : */* mmHG Vent. Rate : 103 BPM Atrial Rate : 103 BPM P-R Int : 162 ms QRS Dur : 88 ms QT Int : 362 ms P-R-T Axes : 72 20 78 degrees QTcB Int : 474 ms Sinus tachycardia Otherwise normal ECG Confirmed by Bhavesh Castillo ([id number]), video editor SHREYA REYES ([id number]) on 02/19/2025 6:44:10 AM Referred By: Confirmed By: Bhavesh Castillo 02/19/25 0644 Date _ Bhavesh Castillo MD CC: Dr. Phoenix Irvin MD; Dr. Dada Caballero DO; No Primary Care Physician ~ Signed [facility] Other Phone: Hepatitis B Surface Antibody on 02-18-2025 HEP B Surf Ab Non-Reactive Normal [facility] Comment on above: Order Comment: ABIDA Figueredo PREVIOUS SPECIMEN REJECTED DUE TO QNS. 05/23/24 0647 Bonilla Mejía Result Comment: <8.5 mIU/mL: Non-Reactive 8.5<= x <11.5 mIU/mL: Indeterminate >=11.5 mIU/mL: Reactive Non Reactive: Inconsistent with immunity less than <10 mIU/mL Reactive: Consistent with immunity greater than or equal to 10 mIU/mL Performed By: #### L [id number], L501.5200, L500.4050, L501.2300, L501.4700 #### [facility] [address] [facility] [place], [address] Hepatitis C Antibodyon 02-18 Hepatitis C Ab REAC Normal Nonreactive [facility] Comment on above: Order Comment: REDRA W. PREVIOUS SPECIMEN REJECTED DUE TO QNS. 05/23/2447 Bonilla Moore. Result Comment: Reac tive: Presumptive evidence of antibodies to HCV. Follow CDC recommendations for supplemental testing. Non-Reactive: Antibodies to HCV were not detected; does not exclude the possibility of exposure to HCV Reactive Results are presumptive evidence of antibodies to HCV. Follow CDC recommendations for supplemental testing. Order confirmation testing: HCV Quant by PCR testing - HCVPCR #[id number] Non Reactive: < 0.8 Equivocal: >/= 0.8 to < 1.0 Reactive: >/= 1.0 The CDC requires that a reactive/equivocal HCV antibody result be sent out for confirmation. HCV Quant by PCR testing. Performed By: #### L [id number], L501.5200, L500.4050, L501.2300, L501.4700 #### [facility] [address] [facility] [address] [place], [address] [id number] 02-18-2025 HEP B Surf Ag Non-Reactive Normal Nonreactive [facility] Comment on above: Order Comment: RED W. PREVIOUS SPECIMEN REJECTED DUE TO QNS. 05/23/2447 Bonilla Moore. Result Comment: Reac tive: Presumptive evidence of HBV. Repeatedly reactive samples must be confirmed using a neutralization test ([employer] HBsAg Confirmatory Test) Non-Reactive: HBsAg not detected; does not exclude the possibility of exposure to HBV Performed By: #### L [id number], L501.5200, L500.4050, L501.2300, L501.4700 #### [facility] [address] [place], [address] 12 Lead EKGon 02-17-2025 12 Lead EKG [facility] Cardi[facility] Services [address] [place] [address] 12 Lead EKG 02/17/25 2100 MR#: [id number] Acct: [id number] Name: YU YOUNGER Rep #: [id number] : 1990 34 From: Bhavesh Castillo MD Attending Dr: Dr. Phoenix Irvin MD Status: ADM IN Ordering Dr: Dada Caballero DO Date: 02/17/25 Location: [facility]3 Sex: M C Admitted: 02/17/25 Test Reason : SUBSTANCE ABUSE Blood Pressure : */* mmHG Vent. Rate : 103 BPM Atrial Rate : 103 BPM P-R Int : 162 ms QRS Dur : 88 ms QT Int : 362 ms P-R-T Axes : 72 20 78 degrees QTcB Int : 474 ms Sinus tachycardia Otherwise normal ECG Confirmed by Bhavesh Castillo ([id number]), video editor SHREYA REYES ([id number]) on 02/19/2025 6:44:10 AM Referred By: Confirmed By: Bhavesh Castillo 02/19/25 0644 Date Bhavesh Castillo MD CC: Dr. Phoenix Irvin MD; Dr. Dada Caballero DO; No Primary Care Physician Signed Normal [facility] Absolute lymphocyte countOrd ered By: Dada Caballero on 02-17-2025 Lymphocytes Auto (Unsp spec) [#/Vol] 1.72 10*3/uL 0.83-4.[address] [facility] Absolute neutrophil countOrd ered By: Dada Caballero on 02-17-2025 Neutrophils (Bld) [#/Vol] 4.8 10*3/uL 2.0-7.[address] [facility] Alcohol, Blood (Medical)-Ser umon 02-17-2025 SERUM ETOH 239.0 mg/dL High <=10.[address] [facility] Comment on above: Result Comment: This test is for medical purposes only. The legal definition of intoxication varies according to local law. Performed By: #### L 500.2500, L501.9100, L505.5000, L100.0100 #### [facility] [address] [place], [address] Anion gap in Serum or Plasma Ordered By: Dada Caballero on 02-17-2025 Anion gap [Moles/Vol] 15 mmol/L 5-15 [facility] Automated blood erythrocyte countOrdered By: Dada Caballero on 02-17-2025 RBC (Bld) [#/Vol] 4.43 10*6/uL Low 4.6-6.2 [facility] Comment on above: Performed By: #### L 500.2500, L501.9100, L505.5000, L100.0100 #### [facility] [address] [place], [address] Automated blood hematocrit ( percentage)Ordered By: Dada Caballero on 02-17-2025 Hematocrit (Bld) [Volume fraction] 38.2 % Low 40-[address] [facility] Comment on above: Performed By: #### L 500.2500, L501.9100, L505.5000, L100.0100 #### [facility] [address] [place], [address] Automated lymphocyte count a s percentage of total leukocytesOrdered By: Dada Caballero on 02-17-2025 Lymphocytes/100 WBC Auto (Unsp spec) 24.4 % 19-[address] [facility] BUN/creatinine ratioOrdered By: Dada Caballero on 02-17-2025 Urea nitrogen/Creatinine [Mass ratio] 8.1 mg/mg Low 10-[address] [facility] Basic Metabolic Profile (BMP )on 02-17-2025 BUN/CRE 8.1 RATIO Low - [facility] Comment on above: Performed By: #### L 500.2500, L501.9100, L505.5000, L100.0100 #### [facility] [address] [place], [address] ECRCL 102.09 ml/min Normal 50-[address] [facility] Comment on above: Performed By: #### L 500.2500, L501.9100, L505.5000, L100.0100 #### [facility] [address] [place], [address] GAP 15 Normal 5-[address] [facility] Comment on above: Performed By: #### L 500.2500, L501.9100, L505.5000, L100.0100 #### [facility] [address] [place], [address] Potassium [Moles/Vol] 3.4 mmol/L Normal 3.3-5.1 [facility] Comment on above: Performed By: #### L 500.2500, L501.9100, L505.5000, L100.0100 #### [facility] [address] [place], [address] Basophil percentageOrdered B y: Dada Caballero on 02-17-2025 Basophils/100 WBC (Bld) 0.3 % Normal 0-[address] [facility] Comment on above: Performed By: #### L 500.2500, L501.9100, L505.5000, L100.0100 #### [facility] [address] [place], [address] CBC W/Diff, Automatedon Absolute Lymph 1.72 X10 3/uL Normal 0.83-4.[address] [facility] Comment on above: Performed By: #### L 500.2500, L501.9100, L505.5000, L100.0100 #### [facility] [address] [place], [address] Absolute Neut 4.8 X10 3/uL Normal 2.0-7.[address] [facility] Comment on above: Performed By: #### L 500.2500, L501.9100, L505.5000, L100.0100 #### [facility] [address] [place], [address] IG% 0.100 Normal 0.0-0.[address] [facility] Comment on above: Result Comment: IG% - Immature Granulocytes (promyelocytes, myelocytes and metamyelocytes) > 1% indicates that a LEFT SHIFT is Present. Performed By: #### L 500.2500, L501.9100, L505.5000, L100.0100 #### [facility] [address] [place], [address] Lymphocytes/100 WBC (Bld) 24.4 % Normal 19-[address] [facility] Comment on above: Performed By: #### L 500.2500, L501.9100, L505.5000, L100.0100 #### [facility] [address] [place], [address] Nucleated RBC (Bld) [#/Vol] 0 10*3/uL Normal 0-[address] [facility] Comment on above: Performed By: #### L 500.2500, L501.9100, L505.5000, L100.0100 #### [facility] [address] [place], [address] RDW SD 41.9 fl Normal 35.1-43.[address] [facility] Comment on above: Performed By: #### L 500.2500, L501.9100, L505.5000, L100.0100 #### [facility] [address] [place], [address] Carbon dioxide, total [Moles /volume] in Central venous bloodOrdered By: Dada Caballero on 02-17-2025 CO2 [Moles/Vol] 21.7 mmol/L Normal 21.0-32.[address] [facility] Comment on above: Performed By: #### L 500.2500, L501.9100, L505.5000, L100.0100 #### [facility] [address] [place], [address] Chloride assayOrdered By: Nazario Caballero on 02-17-2025 Chloride [Moles/Vol] 105 mmol/L Normal 98-108 [facility] Comment on above: Performed By: #### L 500.2500, L501.9100, L505.5000, L100.0100 #### [facility] [address] [place], [address] Emergency Department Summary on 02-17-[address] [facility] Medical Records Department [address] [place] [address] Emergency Department Summary 02/17/25 MR#: [id number] Acct: [id number] Name: YU YOUNGER Rep #: [id number] : 1990 34 From: Dada Caballero DO PCP: Care Physician,No Primary Status:ADM IN Location: [address] History of Present Illness Chief Complaint: [facility] Medical History (Updated 02/17/25 @ 22:[address] Sujey Stacy MD) Tobacco use Alcohol abuse Alcoholic pancreatitis Substance abuse Hx of renal calculi Home Medications ???Medication ???Instructions ???Recorded ???Last Taken ???Type methadone 10 mg tablet 100 mg PO DAILY 05/22/24 06/20/24 History Allergy/AdvReac Type Severity Reaction Status Date / Time levetiracetam (From [facility]) Allergy HIVES Verified 02/17/25 19:44 Family History (Updated 02/17/25 @ 22:[address] Sujey Stacy MD) Mother Hypertension Polysubstance abuse Father Hypertension Polysubstance abuse Alcohol abuse Other Cancer Surgical History Hx of tonsillectomy Social History (Updated 02/17/25 @ 22:[address] Sujey Stacy MD) household members: spouse Smoking Status: Current every day smoker tobacco type: e-cigarettes Electronic Cigarette Use: with nicotine alcohol intake: current alcohol intake frequency: 3 or more drinks per day Alcohol type: hard liquor details: Approximately 1 pint Francine daily substance use type: heroin, opiates and other details: Heroin/fentanyl 1 to 2 g daily snorted EXAM Physical Exam Const Vital Signs: 02/17/25 19:43 02/17/25 21:11 Temperature 98.4 F Temperature Source Oral Pulse Rate 119 H 100 Respiratory Rate 16 16 Blood Pressure 157/106 H 142/97 H Blood Pressure Mean 123 112 Pulse Ox 100 99 Oxygen Delivery Method Room Air [facility] MDM Narrative Medical decision making narrative: HISTORY OF PRESENT ILLNESS: Chief complaint: Alcohol and opioid detox 34-year-old male history of alcohol abuse, polysubstance abuse, heroin abuse, tobacco abuse, cannabis abuse presents with request for opiate and alcohol detox. Patient states he drinks 13% Francine drinks daily. Drinks approximately 8 of these daily. Last echo 2 minutes prior to arrival. Also notes he snorts heroin last ingestion of heroin was at 5 PM on 02/17/2025 denies any drug use or does cocaine methamphetamine. Denies any physical symptoms at this time. REVIEW OF SYSTEMS: Pertinent positives: Polysubstance abuse Pertinent negatives: Chest pain, abdominal pain PHYSICAL EXAM: Nursing triage notes reviewed, Vital signs reviewed Constitutional: please see mdm HENT: MMM Eyes: Pupils equal round and reactive to light, Extraocular muscles intact Neck: No stridor, no JVD, full neck ROM Lungs: Clear to auscultation, No wheezing or rales. No increased work of breathing, no conversational dyspnea, no accessory muscle use, no nasal flaring. No respiratory distress noted Heart: Regular rate and rhythm, No murmurs, No rubs and No gallops, 2+ distal pulses (radial, femoral, posterior tibial) in all extremities Abdomen: Soft, there is no tenderness, rigidity, rebound or guarding, no obvious peritoneal signs, no palpable pulsatile abdominal masses, no auscultated abdominal bruit : No CVAT Extremities: No edema Neuro: No new focal neurological deficits, cranial nerves II through XII intact, 5/5 strength in all present extremities. Intact sensation to light touch in all present extremities, 2+ reflexes bilateral patella tendons. Skin: No rash or lesions noted MEDICAL DECISION MAKING: Chief Complaint: please see HPI External records reviewed: Reviewed prior ED visit. Patient is on methadone reviewed PDMP Factors affecting care: As per HPI. Social determinants of health: history of polysubstance abuse History obtained from others: none Consults: Hospitalist (Dr. Stacy) MDM Narrative: Patient was initially hypertensive with blood pressure 157/106, tachycardic with heart rate of 119, afebrile and nontoxic-appearing. Exam without focal abnormalities. Medical clearance labs were obtained. Patient was given Ativan and phenobarbital empirically given history of alcohol use, alcohol withdrawal and initial vital signs are concerning for alcohol withdrawal despite his history of recently drinking. ALL IMAGES (IF OBTAINED) HAVE BEEN PERSONALLY REVIEWED AND INTERPRETED BY MYSELF. CBC without leukocytosis, severe anemia, no thrombocytopenia. Awaiting BMP and alcohol level Alcohol level BMP without evidence of significant electrolyte abnormalities, no anion gap, no acute kidney injury. Discussed with hospitalist who agrees to admit the patient to our rehab program. Repeat vital signs showed (more content not included)... Normal [facility] Eosinophil percentageOrdered By: Dada Caballero on 02-17-2025 Eosinophils/100 WBC (Bld) 0.0 % Normal 0-[address] [facility] Comment on above: Performed By: #### L 500.2500, L501.9100, L505.5000, L100.0100 #### [facility] [address] [place], [place], [address] Erythrocyte distribution wid th ratioOrdered By: Dada Caballero on 02-17-2025 Erythrocyte distribution width (RBC) [Ratio] 13.4 % Normal 11.6-14.[address] [facility] Comment on above: Performed By: #### L 500.2500, L501.9100, L505.5000, L100.0100 #### [facility] [address] [facility] [place], [address] Erythrocyte distribution wid th standard deviationOrdered By: Dada Caballero on 02-17-2025 Erythrocyte distribution width (RBC) [Ratio] 41.9 fl 35.1-43.[address] [facility] Glomerular filtration rate ( GFR) estimation/1.73 sq m using serum, plasma, or whole bOrdered By: Dada Caballero on 02-17-2025 GFR/1.73 sq M.predicted among non-blacks MDRD (S/P/Bld) [Vol rate/Area] 113 mL/min/{1.73_m2} Normal >[address] [facility] Comment on above: mL/min/1.73m2 CKD-EP I Creatinine Equation (2020) Result Comment: mL/m in/1.73m2 CKD-EPI Creatinine Equation (2020) Performed By: #### L 500.2500, L501.9100, L505.5000, L100.0100 #### [facility] [address] [facility] [place], [address] H AND P Exam - Hospitaliston 02-17-2025 H&P Exam - Hospitalist [facility] Medical Records Department [address] [place] [address] H P Exam - Hospitalist 02/17/252123 MR#: [id number] Acct: [id number] Name: YU YOUNGER Rep #: [id number] : 1990 34 From: Sujey Stacy MD PCP: Care Physician,No Primary Status:ADM IN Location: [facility] [place]-3 HPI - General General Date of Admission: 02/17/25 Date of Service: 02/17/25 Chief Complaint: Heroin/EtOH detoxification HPI Narrative The patient is a 34 y/o M w/ PMHx: Polysubstance abuse (EtOH 1 pint Francine daily, last use 2 to 3 hours prior to ED arrival, Opiates heroin/fentanyl 1 to 2 g daily, used via snorting, last use similarly 2 to 3 hours prior to ED arrival), Tobacco use who presents to the [facility] ED on 02/17/2025 with ongoing substance abuse, both EtOH and opiates with requested detoxification from both alcohol and opiate use with onset now with mild withdrawal symptoms starting over the last possibly 30 minutes with mild fatigue, yawning, nausea, restlessness, body aches and diaphoresis. Patient is present in different room from his spouse who is also a substance user and patient does report that they use together occasionally. Workup in the ED included T98.4, heart rate 119, BP 157/106, respiratory rate 16, 100% on room air, CBC with WC 7.0, Hgb 13.2, platelet 239 without marked shift, BMP with glucose 128 otherwise unremarkable, ethyl alcohol 239. In the ED given concern for onset of withdrawal symptoms patient was initiated on Ativan 2 mg IV x 1, phenobarbital 97.2 mg p.o. x 1. [facility] Medical History (Updated 02/17/25 @ 22:[address] Sujey Stacy MD) Tobacco use Alcohol abuse Alcoholic pancreatitis Substance abuse Hx of renal calculi Home Medications ???Medication ???Instructions ???Recorded ???Last Taken ???Type methadone 10 mg tablet 100 mg PO DAILY 05/22/24 06/20/24 History Allergy/AdvReac Type Severity Reaction Status Date / Time levetiracetam (From [facility]) Allergy HIVES Verified 02/17/25 19:44 Family History (Updated 02/17/25 @ 22:[address] Sujey Stacy MD) Mother Hypertension Polysubstance abuse Father Hypertension Polysubstance abuse Alcohol abuse Other Cancer Surgical History Hx of tonsillectomy Social History (Updated 02/17/25 @ 22:[address] Sujey Stacy MD) household members: spouse Smoking Status: Current every day smoker tobacco type: e-cigarettes Electronic Cigarette Use: with nicotine alcohol intake: current alcohol intake frequency: 3 or more drinks per day Alcohol type: hard liquor details: Approximately 1 pint Francine daily substance use type: heroin, opiates and other details: Heroin/fentanyl 1 to 2 g daily snorted ROS ROS Narrative Admission Review of Systems: CONSTITUTIONAL: No weight loss, fever, chills, + weakness or fatigue. HEENT: + Rhinorrhea, congestion, frequent yawning during evaluation. Eyes: No visual loss, blurred vision, double vision or yellow sclerae. Ears, Nose, Throat: No hearing loss, sneezing, sore throat. SKIN: No rash or itching, lesions, wounds except occasional stage ecchymoses, abrasions, frequent cutting scars to the left forearm with patient noting he is right-handed. CARDIOVASCULAR: No chest pain, chest pressure or chest discomfort, palpitations, edema, orthopnea, syncopal events. RESPIRATORY: No shortness of breath, cough or sputum, wheezing, hemoptysis. GASTROINTESTINAL: + anorexia, mild nausea. No vomiting or diarrhea, abdominal pain, melena, BRBPR. GENITOURINARY: No dysuria, frequency, urgency or retention. NEUROLOGICAL: + Mild tremors, mild tactile disturbances, restlessness, very fatigued. No headache, dizziness, syncope, paralysis, ataxia, numbness or tingling in the extremities, focal weakness, change in bowel or bladder control, seizure. MUSCULOSKELETAL: + muscle, back pain, joint pain or stiffness. HEMATOLOGIC: No anemia, bleeding or bruising. LYMPHATICS: No enlarged nodes. No history of splenectomy. PSYCHIATRIC: No reported history of anxiety or depression. ENDOCRINOLOGIC: + Reports of sweating. No cold or heat intolerance. No polyuria or polydipsia. ALLERGIES: + History of hives. Vital Signs Vital Signs Vital Signs: 02/17/25 19:43 02/17/25 21:11 Temperature 98.4 F Temperature Source Oral Pulse Rate 119 H 100 Respiratory Rate 16 16 Blood Pressure 157/106 H 142/97 H Blood Pressure Mean 123 112 Pulse Ox 100 99 Oxygen Delivery Method Room Air Weight Weight: 139 lb 2 oz Body Mass Index (BMI) 21.1 Physical Exam Narrative Physical Examination: General: Awake, alert, oriented x 3 and cooperative, seated upright in the ED bed, fatigued, yawning frequently, very fatigued, restless. Skin: Normal color, normal turgor, no icterus, no cyanosis except occasional stag (more content not included)... Normal [facility] HIVon 02-17-2025 HIV Non-Reactive Normal Nonreactive [facility] Comment on above: Order Comment: ABIDA Figueredo PREVIOUS SPECIMEN REJECTED DUE TO QNS. 05/23/24 0647 Bonilla Moore. Result Comment: Non- Reactive Reactive Repeatedly reactive samples must be confirmed according to CDC recommended confirmatory algorithms. The subresults for either HIVAG or AHIV can be used as an aid in the selection of the confirmation algorithm for reactive samples. Send out specimens with Reactive results to [facility] for confirmation. Order the HIV antibody detection and differentiation: lc#[id number] Performed By: #### L 501.9520, L501.5200, L500.4050, L501.2300, L501.4700 #### [facility] [place], [address] Hemoglobin measurementOrdere d By: Dada Caballero on 02-17-2025 Hemoglobin (Bld) [Mass/Vol] 13.2 g/dL Normal 13.0-16.[address] [facility] Comment on above: Performed By: #### L 500.2500, L501.9100, L505.5000, L100.0100 #### [facility] [address] [place] [place], [address] Immature granulocytes/100 WB C Auto (Bld)Ordered By: Dada Caballero on 02-17-2025 Immature granulocytes/100 WBC (Bld) 0.100 % 0.0-0.[address] [facility] Comment on above: IG% - Immature Granu locytes (promyelocytes, myelocytes and metamyelocytes) > 1% indicates that a LEFT SHIFT is Present. Laboratory - Microbiology an d Antimicrobial susceptibilityOrdered By: Sujey Stacy on 02-17-2025 HBV surface Ag Ql (S) Non-Reactive Nonreactive [facility] Comment on above: Reactive: Presumptiv e evidence of HBV. Repeatedly reactive samples must be confirmed using a neutralization test ([employer] HBsAg Confirmatory Test)Non-Reactive: HBsAg not detected; does not exclude the possibility of exposure to HBV MCV (mean corpuscular volume ) determinationOrdered By: Dada Caballero on 02-17-2025 MCV (RBC) [Entitic vol] 86.2 fL Normal 80-[address] [facility] Comment on above: Performed By: #### L 500.2500, L501.9100, L505.5000, L100.0100 #### [facility] [address] [place], [address] Magnesiumon 02-17-2025 Magnesium [Mass/Vol] 2.0 mg/dL Normal 1.5-2.2 [facility] Comment on above: Order Comment: ABIDA Figueredo PREVIOUS SPECIMEN REJECTED DUE TO QNS. 05/23/24 0647 Bonilla Moore. Performed By: #### L 501.9520, L501.5200, L500.4050, L501.2300, L501.4700 #### [facility] [address] [place], [address] Magnesium measurement (mass/ volume)Ordered By: Sujey Stacy on 02-17-2025 Magnesium (Unsp spec) [Mass/Vol] 2.0 mg/dL 1.5-2.[address] [facility] Mean corpuscular hemoglobin (MCH) determinationOrdered By: Dada Caballero on 02-17-2025 MCH (RBC) [Entitic mass] 29.8 pg Normal 27.0-32.[address] [facility] Comment on above: Performed By: #### L 500.2500, L501.9100, L505.5000, L100.0100 #### [facility] [address] [place], [address] Mean corpuscular hemoglobin concentration (MCHC) determinationOrdered By: Dada Caballero on 02-17-2025 MCHC (RBC) [Mass/Vol] 34.6 g/dL Normal 32-36 [facility] Comment on above: Performed By: #### L 500.2500, L501.9100, L505.5000, L100.0100 #### [facility] [address] [place], [address] Mean platelet volume determi nationOrdered By: Dada Caballero on 02-17-2025 Platelet mean volume (Bld) [Entitic vol] 9.6 fL Normal 6.2-12.[address] [facility] Comment on above: Performed By: #### L 500.2500, L501.9100, L505.5000, L100.0100 #### [facility] [address] [place], [address] Monocyte percentageOrdered B y: Dada Caballero on 02-17-2025 Monocytes/100 WBC (Bld) 7.4 % Normal 0-[address] [facility] Comment on above: Performed By: #### L 500.2500, L501.9100, L505.5000, L100.0100 #### [facility] [address] [place], [address] Neutrophil percentageOrdered By: Dada Caballero on 02-17-2025 Neutrophils/100 WBC (Bld) 67.8 % Normal 47-[address] [facility] Comment on above: Performed By: #### L 500.2500, L501.9100, L505.5000, L100.0100 #### [facility] [address] [place], [address] No Panel InformationOrdered By: Sujey Stacy on 02-17-2025 HIV (1&2) Antibody Non-Reactive Nonreactive [facility] Comment on above: Non-ReactiveReactive Repeatedly reactive samples must be confirmed according to CDC recommended confirmatory algorithms. The subresults for either HIVAG or AHIV can be used as an aid in the selection of the confirmation algorithm for reactive samples.Send out specimens with Reactive results to [facility] for confirmation.Order the HIV antibody detection and differentiation: #[id number] Nucleated red blood cell per centageOrdered By: Dada Caballero on 02-17-2025 Nucleated RBC/100 WBC (Bld) [Ratio] 0 % 0-[address] [facility] Phosphoruson 02-17-2025 Phosphate [Mass/Vol] 2.9 mg/dL Normal 2.7-4.5 [facility] Comment on above: Order Comment: ABIDA Figueredo PREVIOUS SPECIMEN REJECTED DUE TO QNS. 05/23/24 0647 Bonilla Mejía Performed By: #### L 501.9520, L501.5200, L500.4050, L501.2300, L501.4700 #### [facility] [address] [place], [address] Platelet countOrdered By: Nazario Caballero on 02-17-2025 Platelets (Bld) [#/Vol] 239 10*3/uL Normal 150-[address] [facility] Comment on above: Performed By: #### L 500.2500, L501.9100, L505.5000, L100.0100 #### [facility] [address] [place], [address] Potassium measurement (mass/ volume)Ordered By: Dada Caballero on 02-17-2025 Potassium (Unsp spec) [Mass/Vol] 3.4 mmol/L 3.3-5.[address] [facility] Serum creatinine measurement (mass/volume)Ordered By: Dada Caballero on 02-17-2025 Creatinine [Mass/Vol] 0.91 mg/dL Normal 0.70-1.20 [facility] Comment on above: Performed By: #### L 500.2500, L501.9100, L505.5000, L100.0100 #### [facility] [address] [place], [address] Serum glucose measurement (m ass/volume)Ordered By: Dada Caballero on 02-17-2025 Glucose [Mass/Vol] 128 mg/dL High 70-99 [facility] Comment on above: Performed By: #### L 500.2500, L501.9100, L505.5000, L100.0100 #### [facility] [address] [place], [address] Serum hepatitis B virus surf kwasi antibody detectionOrdered By: Sujey Stacy on 02-17-2025 HBV surface Ab Ql (S) Non-Reactive [facility] Comment on above: <8.5 mIU/mL: Non-[place] ctive8.5<= x <11.5 mIU/mL: Indeterminate>=11.5 mIU/mL: Reactive Non Reactive: Inconsistent with immunity less than <10 mIU/mL Reactive: Consistent with immunity greater than or equal to 10 mIU/mL Serum or plasma calcium maggie urement (mass/volume)Ordered By: Dada Caballero on 02-17-2025 Calcium [Mass/Vol] 9.4 mg/dL Normal 7.6-11.0 [facility] Comment on above: Performed By: #### L 500.2500, L501.9100, L505.5000, L100.0100 #### [facility] [address] [place], [address] Serum or plasma ethanol maggie urement (mass/volume)Ordered By: Dada Caballero on 02-17-2025 Ethanol [Mass/Vol] 239.0 mg/dL High <10.1 [facility] Comment on above: This test is for med ical purposes only. The legal definition of intoxication varies according to local law. Serum or plasma urea nitroge n measurement (mass/volume)Ordered By: Dada Caballero on 02-17-2025 Urea nitrogen [Mass/Vol] 7 mg/dL Normal 4-[address] [facility] Comment on above: Performed By: #### L 500.2500, L501.9100, L505.5000, L100.0100 #### [facility] [address] [place], [address] Sodium levelOrdered By: Margie Caballero on 02-17-2025 Sodium [Moles/Vol] 142 mmol/L Normal 133-145 [facility] Comment on above: Performed By: #### L 500.2500, L501.9100, L505.5000, L100.0100 #### [facility] [address] [place], [address] Syphilis Antibodieson 2024 Syphilis Abs Non-Reactive Normal Nonreactive [facility] Comment on above: Order Comment: ABIDA Figueredo PREVIOUS SPECIMEN REJECTED DUE TO QNS. 05/23/24 0647 Bonilla Mejía Performed By: #### L 501.9520, L501.5200, L500.4050, L501.2300, L501.4700 #### [facility] [address] [place], [address] Urine Drug Screen (VISTA)on 02-17-2025 AMPHETAMINES Normal <1000 ng/mL [facility] Comment on above: Result Comment: EPI ENT DISCHARGED 02/19/25, NO SPECIMEN COLLECTED Performed By: #### L 500.2500, L501.9100, L505.5000, L100.0100 #### [facility] [address] [place], [address] BARBITIURATES Normal < 200 ng/mL [facility] Comment on above: Result Comment: EPI ENT DISCHARGED 02/19/25, NO SPECIMEN COLLECTED Performed By: #### L 500.2500, L501.9100, L505.5000, L100.0100 #### [facility] [address] [place], [address] BENZODIAZIPINE Normal < 200 ng/mL [facility] Comment on above: Result Comment: EPI ENT DISCHARGED 02/19/25, NO SPECIMEN COLLECTED Performed By: #### L 500.2500, L501.9100, L505.5000, L100.0100 #### [facility] [address] [place], [address] BUP Ur Drug Scr Normal < 200 ng/mL [facility] Comment on above: Result Comment: EPI ENT DISCHARGED 02/19/25, NO SPECIMEN COLLECTED Performed By: #### L 500.2500, L501.9100, L505.5000, L100.0100 #### [facility] [address] [place], [address] COCAINE Normal < 300 ng/mL [facility] Comment on above: Result Comment: EPI ENT DISCHARGED 02/19/25, NO SPECIMEN COLLECTED Performed By: #### L 500.2500, L501.9100, L505.5000, L100.0100 #### [facility] [address] [place], [address] Fentanyl Normal <5 ng/mL [facility] Comment on above: Result Comment: EPI ENT DISCHARGED 02/19/25, NO SPECIMEN COLLECTED Performed By: #### L 500.2500, L501.9100, L505.5000, L100.0100 #### [facility] [address] [place], [address] METHADONE Normal < 300 ng/mL [facility] Comment on above: Result Comment: EPI ENT DISCHARGED 02/19/25, NO SPECIMEN COLLECTED Performed By: #### L 500.2500, L501.9100, L505.5000, L100.0100 #### [facility] [address] [place], [address] OPIATES Normal < 300 ng/mL [facility] Comment on above: Result Comment: EPI ENT DISCHARGED 02/19/25, NO SPECIMEN COLLECTED Performed By: #### L 500.2500, L501.9100, L505.5000, L100.0100 #### [facility] [address] [place], [address] OXYCODONE Normal < 100 ng/mL [facility] Comment on above: Result Comment: EPI ENT DISCHARGED 02/19/25, NO SPECIMEN COLLECTED Performed By: #### L 500.2500, L501.9100, L505.5000, L100.0100 #### [facility] [address] [place], [address] PCP Normal < 25 ng/mL [facility] Comment on above: Result Comment: EPI ENT DISCHARGED 02/19/25, NO SPECIMEN COLLECTED Performed By: #### L 500.2500, L501.9100, L505.5000, L100.0100 #### [facility] [address] [place], [address] THC Normal < 50 ng/mL [facility] Comment on above: Result Comment: EPI ENT DISCHARGED 02/19/25, NO SPECIMEN COLLECTED Performed By: #### L 500.2500, L501.9100, L505.5000, L100.0100 #### [facility] [address] [place], [address] White blood cell (WBC) count Ordered By: Dada Caballero on 02-17-2025 WBC (Bld) [#/Vol] 7.0 10*3/uL Normal 4.4-11.0 [facility] Comment on above: Performed By: #### L 500.2500, L501.9100, L505.5000, L100.0100 #### [facility] [address] [place], [address] CBC W/Diff, Automatedon - Absolute Lymph 2.08 X10 3/uL Normal 0.83-4.[address] [facility] Comment on above: Performed By: #### L 501.9520, L501.5200, L500.4050, L501.2300, L501.4700 #### [facility] [address] [place], [address] Absolute Neut 2.4 X10 3/uL Normal 2.0-7.[address] [facility] Comment on above: Performed By: #### L 501.9520, L501.5200, L500.4050, L501.2300, L501.4700 #### [facility] [address] [place], [address] Basophils/100 WBC (Bld) 0.6 % Normal 0-[address] [facility] Comment on above: Performed By: #### L 501.9520, L501.5200, L500.4050, L501.2300, L501.4700 #### [facility] [address] [place], [address] Eosinophils/100 WBC (Bld) 1.4 % Normal 0-[address] [facility] Comment on above: Performed By: #### L 501.9520, L501.5200, L500.4050, L501.2300, L501.4700 #### [facility] [address] [place], [address] Erythrocyte distribution width (RBC) [Ratio] 14.1 % Normal 11.6-14.[address] [facility] Comment on above: Performed By: #### L 501.9520, L501.5200, L500.4050, L501.2300, L501.4700 #### [facility] [address] [place], [address] Hematocrit (Bld) [Volume fraction] 39.0 % Low 40-[address] [facility] Comment on above: Performed By: #### L 501.9520, L501.5200, L500.4050, L501.2300, L501.4700 #### [facility] [address] [place], [address] Hemoglobin (Bld) [Mass/Vol] 13.1 g/dL Normal 13.0-16.[address] [facility] Comment on above: Performed By: #### L 501.9520, L501.5200, L500.4050, L501.2300, L501.4700 #### [facility] [address] [place], [address] IG% 0.400 Normal 0.0-0.[address] [facility] Comment on above: Result Comment: IG% - Immature Granulocytes (promyelocytes, myelocytes and metamyelocytes) > 1% indicates that a LEFT SHIFT is Present. Performed By: #### L 501.9520, L501.5200, L500.4050, L501.2300, L501.4700 #### [facility] [address] [place], [address] Lymphocytes/100 WBC (Bld) 41.2 % High 19-[address] [facility] Comment on above: Performed By: #### L 501.9520, L501.5200, L500.4050, L501.2300, L501.4700 #### [facility] [address] [place], [address] MCH (RBC) [Entitic mass] 31.8 pg Normal 27.0-32.[address] [facility] Comment on above: Performed By: #### L 501.9520, L501.5200, L500.4050, L501.2300, L501.4700 #### [facility] [address] [place], [address] MCHC (RBC) [Mass/Vol] 33.6 g/dL Normal 32-36 [facility] Comment on above: Performed By: #### L 501.9520, L501.5200, L500.4050, L501.2300, L501.4700 #### [facility] [address] [place], [address] MCV (RBC) [Entitic vol] 94.7 fL High 80-[address] [facility] Comment on above: Performed By: #### L 501.9520, L501.5200, L500.4050, L501.2300, L501.4700 #### [facility] [address] [place], [address] Monocytes/100 WBC (Bld) 9.5 % Normal 0-[address] [facility] Comment on above: Performed By: #### L 501.9520, L501.5200, L500.4050, L501.2300, L501.4700 #### [facility] [address] [place], [address] Neutrophils/100 WBC (Bld) 46.9 % Low 47-[address] [facility] Comment on above: Performed By: #### L 501.9520, L501.5200, L500.4050, L501.2300, L501.4700 #### [facility] [address] [place], [address] Nucleated RBC (Bld) [#/Vol] 0 10*3/uL Normal 0-[address] [facility] Comment on above: Performed By: #### L 501.9520, L501.5200, L500.4050, L501.2300, L501.4700 #### [facility] [address] [place], [address] Platelet mean volume (Bld) [Entitic vol] 11.5 fL Normal 6.2-12.[address] [facility] Comment on above: Performed By: #### L 501.9520, L501.5200, L500.4050, L501.2300, L501.4700 #### [facility] [address] [place], [address] Platelets (Bld) [#/Vol] 153 10*3/uL Normal 150-[address] [facility] Comment on above: Performed By: #### L 501.9520, L501.5200, L500.4050, L501.2300, L501.4700 #### [facility] [address] [place], [address] RBC (Bld) [#/Vol] 4.12 10*6/uL Low 4.6-6.2 [facility] Comment on above: Performed By: #### L 501.9520, L501.5200, L500.4050, L501.2300, L501.4700 #### [facility] [address] [place], [address] RDW SD 49.0 fl High 35.1-43.[address] [facility] Comment on above: Performed By: #### L 501.9520, L501.5200, L500.4050, L501.2300, L501.4700 #### [facility] [address] [place], [address] WBC (Bld) [#/Vol] 5.1 10*3/uL Normal 4.4-11.0 [facility] Comment on above: Performed By: #### L 501.9520, L501.5200, L500.4050, L501.2300, L501.4700 #### [facility] [address] [place], [address] PLT EST SLT DEC Normal ADEQ [facility] Comment on above: Performed By: #### L 501.9520, L501.5200, L500.4050, L501.2300, L501.4700 #### [facility] [address] [place], [address] SMEAR COMMENT SCANNED Normal [facility] Comment on above: Performed By: #### L 501.9520, L501.5200, L500.4050, L501.2300, L501.4700 #### [facility] [address] [place], [address] Comprehensive Metabolic Prof ilon 07-17-2024 Albumin [Mass/Vol] 4.0 g/dL Normal 3.2-5.0 [facility] Comment on above: Performed By: #### L 501.9520, L501.5200, L500.4050, L501.2300, L501.4700 #### [facility] [address] [place], [address] Albumin/Globulin [Mass ratio] 1.1 {ratio} Normal 0.9-2.[address] [facility] Comment on above: Performed By: #### L 501.9520, L501.5200, L500.4050, L501.2300, L501.4700 #### [facility] [address] [place], [address] ALK P 101 U/L Normal 45-[address] [facility] Comment on above: Performed By: #### L 501.9520, L501.5200, L500.4050, L501.2300, L501.4700 #### [facility] [address] [place], [address] ALT [Catalytic activity/Vol] 25 U/L Normal 16-[address] [facility] Comment on above: Performed By: #### L 501.9520, L501.5200, L500.4050, L501.2300, L501.4700 #### [facility] [address] [place], [address] AST [Catalytic activity/Vol] 31 U/L Normal 15-[address] [facility] Comment on above: Result Comment: Slig ht Hemolysis, Result may be falsely increased. Performed By: #### L 501.9520, L501.5200, L500.4050, L501.2300, L501.4700 #### [facility] [address] [place], [address] Bilirubin [Mass/Vol] 0.70 mg/dL Normal 0.20-1.00 [facility] Comment on above: Result Comment: For patients on eltrombopag therapy, use of Dimension [place] TBIL is not recommended. Performed By: #### L 501.9520, L501.5200, L500.4050, L501.2300, L501.4700 #### [facility] [address] [place], [address] BUN/CRE 12.5 RATIO Normal 10-[address] [facility] Comment on above: Performed By: #### L 501.9520, L501.5200, L500.4050, L501.2300, L501.4700 #### [facility] [address] [place], [address] CA,Total 9.2 mg/dL Normal 8.5-10.[address] [facility] Comment on above: Performed By: #### L 501.9520, L501.5200, L500.4050, L501.2300, L501.4700 #### [facility] [address] [place], [address] Chloride [Moles/Vol] 108 mmol/L High 98-107 [facility] Comment on above: Performed By: #### L 501.9520, L501.5200, L500.4050, L501.2300, L501.4700 #### [facility] [address] [place], [address] CO2 [Moles/Vol] 25.0 mmol/L Normal 21.0-32.[address] [facility] Comment on above: Performed By: #### L 501.9520, L501.5200, L500.4050, L501.2300, L501.4700 #### [facility] [address] [place], [address] Creatinine [Mass/Vol] 0.88 mg/dL Normal 0.70-1.30 [facility] Comment on above: Result Comment: The validity of the calculated GFR GFRAA in patients over 70 years has not been determined. Clinical correlation is essential. Performed By: #### L 501.9520, L501.5200, L500.4050, L501.2300, L501.4700 #### [facility] [address] [place], [address] ECRCL 103.49 ml/min Normal [facility] Comment on above: Performed By: #### L 501.9520, L501.5200, L500.4050, L501.2300, L501.4700 #### [facility] [address] [place], [address] EST GFR - AA 127 mL/min Normal >[address] [facility] Comment on above: Result Comment: Afri can Peruvian GFR Calc Performed By: #### L 501.9520, L501.5200, L500.4050, L501.2300, L501.4700 #### [facility] [address] [place], [address] GAP 8 Normal 5-[address] [facility] Comment on above: Performed By: #### L 501.9520, L501.5200, L500.4050, L501.2300, L501.4700 #### [facility] [address] [place], [address] GFR/1.73 sq M.predicted among non-blacks MDRD (S/P/Bld) [Vol rate/Area] 105 mL/min/{1.73_m2} Normal >[address] [facility] Comment on above: Result Comment: Non- GFR Calc Performed By: #### L 501.9520, L501.5200, L500.4050, L501.2300, L501.4700 #### [facility] [address] [place], [address] Globulin (S) [Mass/Vol] 3.5 g/dL Normal 2.2-4.[address] [facility] Comment on above: Performed By: #### L 501.9520, L501.5200, L500.4050, L501.2300, L501.4700 #### [facility] [address] [place], [address] Glucose [Mass/Vol] 83 mg/dL Normal 74-106 [facility] Comment on above: Performed By: #### L 501.9520, L501.5200, L500.4050, L501.2300, L501.4700 #### [facility] [address] [place], [address] Potassium [Moles/Vol] 3.5 mmol/L Normal 3.5-5.1 [facility] Comment on above: Result Comment: Slig ht Hemolysis, Result may be falsely increased. Performed By: #### L 501.9520, L501.5200, L500.4050, L501.2300, L501.4700 #### [facility] [address] [place], [address] Sodium [Moles/Vol] 140 mmol/L Normal 136-145 [facility] Comment on above: Performed By: #### L 501.9520, L501.5200, L500.4050, L501.2300, L501.4700 #### [facility] [address] [place], [address] T PROT 7.5 g/dL Normal 6.4-8.[address] [facility] Comment on above: Performed By: #### L 501.9520, L501.5200, L500.4050, L501.2300, L501.4700 #### [facility] [address] [place], [address] Urea nitrogen [Mass/Vol] 11 mg/dL Normal 7-[address] [facility] Comment on above: Performed By: #### L 501.9520, L501.5200, L500.4050, L501.2300, L501.4700 #### [facility] [address] [place], [address] Emergency Department Summary on 07-17-2024 Emergency Department Summary [facility] Medical Records Department [address] [place] [address] Emergency Department Summary 07/17/24 MR#: [id number] Acct: [id number] Name: YU YOUNGER Rep #: [id number] : 1990 34 From: Jhonathan Brooke DO PCP: Care Physician,No Primary Status:REG ER Location: ED HPI History of Present Illness Chief Complaint: Substance Abuse Informant: patient Narrative Narrative: 34-year-old male presenting to the emergency room requesting detox from opiates. Patient states that he has been a polysubstance user. He has been in detox before. Him and his traveled here together to seek detox. She is also checking in. He denies any pending legal issues. He states that he does take methadone. He denies any IV drug use states that he snorts his fentanyl. He denies concerns for HIV. He states he does not take any other medications. He is a heavy nicotine user. He states he does not drink alcohol anymore after having a episode of alcoholic pancreatitis. [facility] Medical History Hx of renal calculi Pancreatitis Denies previous medical history Home Medications ???Medication ???Instructions ???Recorded ???Last Taken ???Type methadone 10 mg tablet 100 mg PO DAILY 05/22/24 06/20/24 History ondansetron HCl 8 mg tablet 8 mg PO Q8H PRN PRN Nausea 7 days 06/23/24 Unknown Rx #21 tabs Allergy/AdvReac Type Severity Reaction Status Date / Time levetiracetam (From [facility]) Allergy HIVES Verified 07/16/24 21:27 Family History Other Cancer Hypertension Surgical History Hx of tonsillectomy Social History Smoking Status: Current every day smoker tobacco type: e-cigarettes ROS ROS ED Constitutional Constitutional ED: Denies chills, fever(s) or weight loss Eyes Eyes: Denies change in vision or diplopia ENT ENT ED: Denies ear pain, rhinorrhea or sore throat Cardiovascular Cardiovascular: Denies chest pain, orthopnea, palpitations or racing heartbeat Respiratory/Chest Respiratory/Chest: Denies cough, dyspnea or orthopnea Gastrointestinal Gastrointestinal: Reports nausea; Denies abdominal pain, diarrhea or vomiting Genitourinary Genitourinary ED: Denies dysuria, hematuria or urinary frequency Musculoskeletal Musculoskeletal: Denies arthralgias or myalgias Integumentary Denies abscess or rash Neurologic Neurologic: Reports headache(s) and other Details: Tremor ; Denies weakness Psychiatric Psychiatric: Denies anxiety, depression, suicidal ideation or suicidal thoughts Endocrine Endocrinology: Denies polydipsia, polyphagia or polyuria Allergic/Immunologic Allergic/Immunologic ED: Denies mouth swelling, tongue swelling or urticaria EXAM Physical Exam Const Vital Signs: 07/16/24 21:26 07/16/24 23:26 Temperature 98.2 F Temperature Source Oral Pulse Rate 84 71 Respiratory Rate 16 18 Blood Pressure 142/104 H 158/102 H Blood Pressure Mean 116 120 Pulse Ox 97 100 Oxygen Delivery Method Room Air Room Air Positive well nourished and well developed General Appearance ED: well developed HEENT Reports normocephalic, head/scalp atraumatic and moist mucous membranes Eyes PERRL and EOMs intact bilaterally Neck no lymphadenopathy, supple and no JVD Resp normal respiratory effort and clear to auscultation bilaterally Cardio regular rate, regular rhythm and no murmurs GI normal to inspection, nondistended, normoactive bowel sounds and non-tender Palpation: soft Back/Spine no CVA tenderness and normal ROM Extremity normal to inspection General Extremety ED: Negative for edema General Extremity: Negative for edema Neuro oriented x3 and CN's II-XII intact bilaterally Sensorium / Orientation: alert Motor Exam: strength 5/5 throughout Psych mental status grossly normal Mood Affect: anxious and tearful; Negative for depressed Skin no rashes or lesions noted and no wounds MDM MDM MDM Narrative Medical decision making narrative: ED addiction labs will be obtained and reviewed. I will speak with the hospitalist regarding admission. He was given nicotine patch. History Record Review Discussion w/independent historian: Patient Lab Data Attestation: I reviewed the patient's lab results. Labs: Laboratory Results - last 24 hr 07/16/24 07/16/24 22:35 23:20 Urine Opiates Screen POSITIVE H Urine Methadone Screen POSITIVE H Ur Barbiturates Screen POSITIVE H Ur Phencyclidine Scrn NEGATIVE Ur Amphetamines Screen NEGATIVE MDMA (Ecstasy) Screen POSITIVE H U Benzodiazepines Scrn NEGATIVE Urine Cocaine Screen POSITIVE H U Can (more content not included)... Normal [facility] H AND P Exam - Hospitaliston 07-17-2024 H&P Exam - Hospitalist [facility] Medical Records Department [address] [place] [address] H P Exam - Hospitalist 07/17/24 0100 MR#: [id number] Acct: [id number] Name: YU YOUNGER Rep #: [id number] : 1990 34 From: Phoenix Ramsey DO PCP: Care Physician,No Primary Status:ADM IN Location: [facility] [place] AN215-5 HPI - General General Date of Admission: 07/17/24 Date of Service: 07/17/24 Chief Complaint: Requesting Opiate/Polysubstance Withdrawal. HPI Narrative YU YOUNGER, is a 34 M with a past medical history of chronic opiate/polysubstance; on chronic methadone 100 mg daily plus snorting fentanyl daily with previous admission for detox, cannabis abuse, chronic tobacco abuse, history of EtOH abuse; quit after a severe bout of EtOH pancreatitis with EtOH hepatitis earlier this month, chronic moderate thrombocytopenia; with baseline level 100K since last year, listed allergy to levtiracetam (hives) and history of renal calculi who presents to [facility] ER requesting opiate/polysubstance detox. Mr. Younger reports both he and his came together today to be admitted for help with detoxification from multiple drugs. He denies a history of significant medical illness outside of ones related to complications from his long-standing problem with addiction except for his kidney stones with patient on no prescribed medications at this time. He denies any pending legal issues or IVDA. He admits to headache and nausea but he denies associated fever, chills, nausea, vomiting, diarrhea, constipation, abdominal pain, runny nose, sore throat, ear pain, chest pain, SOB, depression or anxiety. In the ER he was noted to have a 'bumble bee' UDS positive for multiple agents, including: opiates, methadone, barbiturates, MDMA, cocaine and cannabis. He was incidentally noted to have moderate thrombocytopenia of 106K present on admission which is near his previous baseline level without any other significant abnormalities. He was then admitted to the general medical floor for treatment of opiate/polysubstance detoxification for a stay that is expected to extend beyond 2 midnights. [facility] Medical History (Updated 07/17/24 @ 01:52 by Hina Fleming) Substance abuse Hx of renal calculi Pancreatitis Denies previous medical history Home Medications ???Medication ???Instructions ???Recorded ???Last Taken ???Type methadone 10 mg tablet 100 mg PO DAILY 05/22/24 06/20/24 History ondansetron HCl 8 mg tablet 8 mg PO Q8H PRN PRN Nausea 7 days 06/23/24 Unknown Rx #21 tabs Allergy/AdvReac Type Severity Reaction Status Date / Time levetiracetam (From [facility]) Allergy HIVES Verified 07/16/24 21:27 Family History Other Cancer Hypertension Surgical History Hx of tonsillectomy Social History Smoking Status: Current every day smoker tobacco type: e-cigarettes ROS ROS Narrative Review of Systems: Constitutional: Patient denies fever or chills. Eyes: Patient denies changes in vision or discharge from eyes. ENT: Patient denies runny nose, sore throat or ear pain. Resp: Patient denies SOB or cough. CV: Patient denies chest pain, palpitations, heart racing or LE edema. GI: Patient admits to nausea but he denies abdominal pain, nausea, vomiting, diarrhea or constipation. : Patient denies dysuria, hematuria or flank pain. MSK: Patient denies arthralgias or myalgias. Skin: Patient denies rash, abscess, wound or jaundice. Psych: Patient denies symptoms of uncontrolled depression or anxiety. Neuro: Patient admits to headache but he denies paresthesias or focal neurologic deficits. Allergy: Patient denies lip swelling, tongue swelling or urticaria. Hematology: Patient denies easy bleeding or easy bruisability. Endocrinology: Patient denies polyuria, polydipsia or polyphagia. 14 point ROS otherwise negative except for positive noted above in HPI. Vital Signs Vital Signs Vital Signs: 07/16/24 21:26 07/16/24 23:26 07/17/24 00:34 Temperature 98.2 F 97.9 F Temperature Source Oral Pulse Rate 84 71 74 Respiratory Rate 16 18 16 Blood Pressure 142/104 H 158/102 H 142/91 H Blood Pressure Mean 116 120 108 Pulse Ox 97 100 99 Oxygen Delivery Method Room Air Room Air Weight Weight: 136 lb 6 oz Body Mass Index (BMI) 20.7 Physical Exam Const alert, oriented x3, no apparent distress and average body habitus General Appearance: cooperative HEENT normocephalic, head/scalp atraumatic, hearing grossly normal bilaterally and moist oral mucous membranes Eyes PERRL, EOMs intact bilaterally and conjunctivae normal Neck no lymphadenopathy and supple Resp normal respiratory (more content not included)... Normal [facility] Alcohol, Blood (Medical)-Ser umon 07-16-2024 SERUM ETOH 4.0 mg/dL Normal [facility] Comment on above: Result Comment: The serum:whole blood ethanol ratio is approximately 1.14 and varies slightly with hematocrit. Medical Alcohol reference interval and critical value in non-tolerant individuals; 50 - 100 Impairment 100 Intoxication 100 - 250 Severe Poisoning 250 - 400 Deep/possible fatal coma Performed By: #### L 501.2111, L501.5200, L500.4050, L501.2300, L501.4700 #### [facility] [address] [place], [address] Urine Drug Screen (VISTA)on 07-16-2024 AMPHETAMINES Negative Normal <1000 ng/mL [facility] Comment on above: Performed By: #### L 501.9520, L501.5200, L500.4050, L501.2300, L501.4700 #### [facility] [address] [place], [address] BARBITIURATES Positive Abnormal < 200 ng/mL [facility] Comment on above: Performed By: #### L 501.9520, L501.5200, L500.4050, L501.2300, L501.4700 #### [facility] [address] [place], [address] BENZODIAZIPINE Negative Normal < 200 ng/mL [facility] Comment on above: Performed By: #### L 501.9520, L501.5200, L500.4050, L501.2300, L501.4700 #### [facility] [address] [place], [address] COCAINE Positive Abnormal < 300 ng/mL [facility] Comment on above: Performed By: #### L 501.9520, L501.5200, L500.4050, L501.2300, L501.4700 #### [facility] [address] [place], [address] ECSTACY Positive Abnormal < 500 ng/mL [facility] Comment on above: Performed By: #### L 501.9520, L501.5200, L500.4050, L501.2300, L501.4700 #### [facility] [address] [place], [address] METHADONE Positive Abnormal < 300 ng/mL [facility] Comment on above: Performed By: #### L 501.9520, L501.5200, L500.4050, L501.2300, L501.4700 #### [facility] [address] [place], [address] OPIATES Positive Abnormal < 300 ng/mL [facility] Comment on above: Performed By: #### L 501.9520, L501.5200, L500.4050, L501.2300, L501.4700 #### [facility] [address] [place], [address] PCP Negative Normal < 25 ng/mL [facility] Comment on above: Performed By: #### L 501.9520, L501.5200, L500.4050, L501.2300, L501.4700 #### [facility] [address] [place], [address] THC Positive Abnormal < 50 ng/mL [facility] Comment on above: Performed By: #### L 501.9520, L501.5200, L500.4050, L501.2300, L501.4700 #### [facility] [address] [place], [address] VISTA UDS PH [address] [facility] Comment on above: Performed By: #### L 501.9520, L501.5200, L500.4050, L501.2300, L501.4700 #### [facility] [address] [place], [address] Discharge Instructionon Discharge Instruction [facility] Medical Records Department [address] [place] [address] Instructions for Home/Discharge Instructions 06/23/24 1043 MR#: [id number] Acct: [id number] Name: YU YOUNGER Rep #: [id number] : 1990 33 From: Majo Terrazas MD PCP: Care Physician,No Primary Status:ADM IN Discharge Instructions Diet Discharge Diet: No restrictions DC O2, CPAP, BIPAP needs Home O2 Discharge instructions: No Dressing / Incision Discharge Activity: Return to Normal Activity Follow Up Care Test Results: Test results from this visit will be discussed in further detail at your follow-up appointment, if applicable. Discharge Plan Admission Admit Date/Time: 06/20/24 14:34 Primary Reason for Your Visit: Alcohol detox Attending Provider: Majo Terrazas Primary Care Provider: Care Physician,No Primary Consulting Providers: David Mcguire Instructions Patient Instructions: Alcohol Addiction Additional Instructions / Restrictions: - It is recommended that you establish care with a primary care physician upon discharge given your elevated liver function tests -And is also strongly advised that you avoid alcohol Discharge Orders/Prescriptions Prescriptions: New ondansetron HCl 8 mg Tablet 8 mg PO Q8H PRN PRN (Reason: Nausea) 7 Days Qty: 21 0RF Continued methadone 10 mg tablet 100 mg PO DAILY Patient Comments: pt gets dose daily from clinic. has saturday's dose with him Referrals / Follow Up: Care Physician,No Primary [Primary Care Provider] - ( -If you do not have a primary care physician of list of local primary care physicians can be provided for you upon discharge. Please ask for this list prior to discharge ) Disposition Disposition (needs filled in before D/C Order can be placed): Home, Self Care 06/23/24 1046 Majo Terrazas MD CC: Dr. David Mcguire MD; No Primary Care Physician Signed Normal [facility] Alcohol, Blood (Medical)-Ser umon 06-20-2024 SERUM ETOH 271.0 mg/dL Normal [facility] Comment on above: Result Comment: The serum:whole blood ethanol ratio is approximately 1.14 and varies slightly with hematocrit. Medical Alcohol reference interval and critical value in non-tolerant individuals; 50 - 100 Impairment 100 Intoxication 100 - 250 Severe Poisoning 250 - 400 Deep/possible fatal coma Performed By: #### L 501.1329, L501.5200, L500.4050, L501.2300, L501.4700 #### [facility] [address] [place], [address] CBC W/Diff, Automatedon Absolute Lymph 1.41 X10 3/uL Normal 0.83-4.[address] [facility] Comment on above: Performed By: #### L 501.9520, L501.5200, L500.4050, L501.2300, L501.4700 #### [facility] [address] [place], [address] Absolute Neut 2.1 X10 3/uL Normal 2.0-7.[address] [facility] Comment on above: Performed By: #### L 501.9520, L501.5200, L500.4050, L501.2300, L501.4700 #### [facility] [address] [place], [address] Basophils/100 WBC (Bld) 0.5 % Normal 0-[address] [facility] Comment on above: Performed By: #### L 501.9520, L501.5200, L500.4050, L501.2300, L501.4700 #### [facility] [address] [place], [address] Eosinophils/100 WBC (Bld) 0.5 % Normal 0-[address] [facility] Comment on above: Performed By: #### L 501.9520, L501.5200, L500.4050, L501.2300, L501.4700 #### [facility] [address] [place], [address] Erythrocyte distribution width (RBC) [Ratio] 15.0 % High 11.6-14.[address] [facility] Comment on above: Performed By: #### L 501.9520, L501.5200, L500.4050, L501.2300, L501.4700 #### [facility] [address] [place], [address] Hematocrit (Bld) [Volume fraction] 41.5 % Normal 40-[address] [facility] Comment on above: Performed By: #### L 501.9520, L501.5200, L500.4050, L501.2300, L501.4700 #### [facility] [address] [place], [address] Hemoglobin (Bld) [Mass/Vol] 13.8 g/dL Normal 13.0-16.[address] [facility] Comment on above: Performed By: #### L 501.9520, L501.5200, L500.4050, L501.2300, L501.4700 #### [facility] [address] [place], [address] IG% 0.300 Normal 0.0-0.[address] [facility] Comment on above: Result Comment: IG% - Immature Granulocytes (promyelocytes, myelocytes and metamyelocytes) > 1% indicates that a LEFT SHIFT is Present. Performed By: #### L 501.9520, L501.5200, L500.4050, L501.2300, L501.4700 #### [facility] [address] [place], [address] Lymphocytes/100 WBC (Bld) 35.3 % Normal 19-[address] [facility] Comment on above: Performed By: #### L 501.9520, L501.5200, L500.4050, L501.2300, L501.4700 #### [facility] [address] [place], [address] MCH (RBC) [Entitic mass] 31.8 pg Normal 27.0-32.[address] [facility] Comment on above: Performed By: #### L 501.9520, L501.5200, L500.4050, L501.2300, L501.4700 #### [facility] [address] [place], [address] MCHC (RBC) [Mass/Vol] 33.3 g/dL Normal 32-36 [facility] Comment on above: Performed By: #### L 501.9520, L501.5200, L500.4050, L501.2300, L501.4700 #### [facility] [address] [place], [address] MCV (RBC) [Entitic vol] 95.6 fL High 80-[address] [facility] Comment on above: Performed By: #### L 501.9520, L501.5200, L500.4050, L501.2300, L501.4700 #### [facility] [address] [place], [address] Monocytes/100 WBC (Bld) 11.0 % High 0-[address] [facility] Comment on above: Performed By: #### L 501.9520, L501.5200, L500.4050, L501.2300, L501.4700 #### [facility] [address] [place], [address] Neutrophils/100 WBC (Bld) 52.4 % Normal 47-[address] [facility] Comment on above: Performed By: #### L 501.9520, L501.5200, L500.4050, L501.2300, L501.4700 #### [facility] [address] [place], [address] Nucleated RBC (Bld) [#/Vol] 0 10*3/uL Normal 0-[address] [facility] Comment on above: Performed By: #### L 501.9520, L501.5200, L500.4050, L501.2300, L501.4700 #### [facility] [address] [place], [address] Platelet mean volume (Bld) [Entitic vol] 11.6 fL Normal 6.2-12.[address] [facility] Comment on above: Performed By: #### L 501.9520, L501.5200, L500.4050, L501.2300, L501.4700 #### [facility] [address] [place], [address] Platelets (Bld) [#/Vol] 97 10*3/uL Low 150-[address] [facility] Comment on above: Performed By: #### L 501.9520, L501.5200, L500.4050, L501.2300, L501.4700 #### [facility] [address] [place], [address] RBC (Bld) [#/Vol] 4.34 10*6/uL Low 4.6-6.2 [facility] Comment on above: Performed By: #### L 501.9520, L501.5200, L500.4050, L501.2300, L501.4700 #### [facility] [address] [place], [address] RDW SD 53.5 fl High 35.1-43.[address] [facility] Comment on above: Performed By: #### L 501.9520, L501.5200, L500.4050, L501.2300, L501.4700 #### [facility] [address] [place], [address] WBC (Bld) [#/Vol] 4.0 10*3/uL Low 4.4-11.0 [facility] Comment on above: Performed By: #### L 501.9520, L501.5200, L500.4050, L501.2300, L501.4700 #### [facility] [address] [place], [address] Absolute Neut Normal 2.0-7.[address] [facility] Comment on above: Result Comment: Jolly méndez via OM: Ordered Performed By: #### L 501.9520, L501.5200, L500.4050, L501.2300, L501.4700 #### [facility] [address] [place], [address] HCT Normal 40-[address] [facility] Comment on above: Result Comment: Canc elled via OM: MD Ordered Performed By: #### L 501.9520, L501.5200, L500.4050, L501.2300, L501.4700 #### [facility] [address] [place], [address] HGB Normal 13.0-16.[address] [facility] Comment on above: Result Comment: Canc elled via OM: MD Ordered Performed By: #### L 501.9520, L501.5200, L500.4050, L501.2300, L501.4700 #### [facility] [address] [place], [address] MCH Normal 27.0-32.[address] [facility] Comment on above: Result Comment: Canc elled via OM: MD Ordered Performed By: #### L 501.9520, L501.5200, L500.4050, L501.2300, L501.4700 #### [facility] [address] [place], [address] MCHC Normal 32-[address] [facility] Comment on above: Result Comment: Canc elled via OM: MD Ordered Performed By: #### L 501.9520, L501.5200, L500.4050, L501.2300, L501.4700 #### [facility] [address] [place], [address] MCV Normal 80-[address] [facility] Comment on above: Result Comment: Canc elled via OM: MD Ordered Performed By: #### L 501.9520, L501.5200, L500.4050, L501.2300, L501.4700 #### [facility] [address] [place], [address] NEUT% Normal 47-[address] [facility] Comment on above: Result Comment: Canc elled via OM: MD Ordered Performed By: #### L 501.9520, L501.5200, L500.4050, L501.2300, L501.4700 #### [facility] [address] [place], [address] PLT Normal 150-[address] [facility] Comment on above: Result Comment: Canc elled via OM: MD Ordered Performed By: #### L 501.9520, L501.5200, L500.4050, L501.2300, L501.4700 #### [facility] [address] [place], [address] RBC Normal 4.6-6.[address] [facility] Comment on above: Result Comment: Canc elled via OM: MD Ordered Performed By: #### L 501.9520, L501.5200, L500.4050, L501.2300, L501.4700 #### [facility] [address] [place], [address] RDW CV Normal 11.6-14.[address] [facility] Comment on above: Result Comment: Canc elled via OM: MD Ordered Performed By: #### L 501.9520, L501.5200, L500.4050, L501.2300, L501.4700 #### [facility] [address] [place], [address] RDW SD Normal 35.1-43.[address] [facility] Comment on above: Result Comment: Canc elled via OM: MD Ordered Performed By: #### L 501.9520, L501.5200, L500.4050, L501.2300, L501.4700 #### [facility] [address] [place], [address] WBC Normal 4.4-11.[address] [facility] Comment on above: Result Comment: Canc elled via OM: MD Ordered Performed By: #### L 501.9520, L501.5200, L500.4050, L501.2300, L501.4700 #### [facility] [address] [place], [address] Comprehensive Metabolic Prof ilon 06-20-2024 Albumin [Mass/Vol] 3.4 g/dL Normal 3.2-5.0 [facility] Comment on above: Performed By: #### L 501.9520, L501.5200, L500.4050, L501.2300, L501.4700 #### [facility] [address] [place], [address] Albumin/Globulin [Mass ratio] 0.7 {ratio} Low 0.9-2.[address] [facility] Comment on above: Performed By: #### L 501.9520, L501.5200, L500.4050, L501.2300, L501.4700 #### [facility] [address] [place], [address] ALK P 229 U/L High 45-[address] [facility] Comment on above: Performed By: #### L 501.9520, L501.5200, L500.4050, L501.2300, L501.4700 #### [facility] [address] [place], [address] ALT [Catalytic activity/Vol] 130 U/L High 16-[address] [facility] Comment on above: Performed By: #### L 501.9520, L501.5200, L500.4050, L501.2300, L501.4700 #### [facility] [address] [place], [address] AST [Catalytic activity/Vol] 430 U/L High 15-[address] [facility] Comment on above: Result Comment: Mode rate Hemolysis, Result may be falsely increased. Performed By: #### L 501.9520, L501.5200, L500.4050, L501.2300, L501.4700 #### [facility] [address] [place], [address] Bilirubin [Mass/Vol] 2.00 mg/dL High 0.20-1.00 [facility] Comment on above: Result Comment: For patients on eltrombopag therapy, use of Dimension [place] TBIL is not recommended. Performed By: #### L 501.9520, L501.5200, L500.4050, L501.2300, L501.4700 #### [facility] [address] [place], [address] BUN/CRE 7.0 RATIO Low 10-[address] [facility] Comment on above: Performed By: #### L 501.9520, L501.5200, L500.4050, L501.2300, L501.4700 #### [facility] [address] [place], [address] CA,Total 9.2 mg/dL Normal 8.5-10.[address] [facility] Comment on above: Performed By: #### L 501.9520, L501.5200, L500.4050, L501.2300, L501.4700 #### [facility] [address] [place], [address] Chloride [Moles/Vol] 101 mmol/L Normal 98-107 [facility] Comment on above: Performed By: #### L 501.9520, L501.5200, L500.4050, L501.2300, L501.4700 #### [facility] [address] [place], [address] CO2 [Moles/Vol] 25.0 mmol/L Normal 21.0-32.[address] [facility] Comment on above: Performed By: #### L 501.9520, L501.5200, L500.4050, L501.2300, L501.4700 #### [facility] [address] [place], [address] Creatinine [Mass/Vol] 0.85 mg/dL Normal 0.70-1.30 [facility] Comment on above: Result Comment: The validity of the calculated GFR GFRAA in patients over 70 years has not been determined. Clinical correlation is essential. Performed By: #### L 501.9520, L501.5200, L500.4050, L501.2300, L501.4700 #### [facility] [address] [place], [address] ECRCL 116.18 ml/min Normal [facility] Comment on above: Performed By: #### L 501.9520, L501.5200, L500.4050, L501.2300, L501.4700 #### [facility] [address] [facility] [address] EST GFR - AA 132 mL/min Normal >[address] [facility] Comment on above: Result Comment: Afri can Peruvian GFR Calc Performed By: #### L 501.9520, L501.5200, L500.4050, L501.2300, L501.4700 #### [facility] [address] [place], [address] GAP 10 Normal 5-[address] [facility] Comment on above: Performed By: #### L 501.9520, L501.5200, L500.4050, L501.2300, L501.4700 #### [facility] [address] [place], [address] GFR/1.73 sq M.predicted among non-blacks MDRD (S/P/Bld) [Vol rate/Area] 109 mL/min/{1.73_m2} Normal >[address] [facility] Comment on above: Result Comment: Non- GFR Calc Performed By: #### L 501.9520, L501.5200, L500.4050, L501.2300, L501.4700 #### [facility] [address] [place], [address] Globulin (S) [Mass/Vol] 4.7 g/dL High 2.2-4.[address] [facility] Comment on above: Performed By: #### L 501.9520, L501.5200, L500.4050, L501.2300, L501.4700 #### [facility] [address] [place], [address] Glucose [Mass/Vol] 102 mg/dL Normal 74-106 [facility] Comment on above: Result Comment: Fast ing Glucose result from 100 to 125 mg/dL suggests IMPAIRED HOMEOSTASIS per A.D.A. criteria. Performed By: #### L 501.9520, L501.5200, L500.4050, L501.2300, L501.4700 #### [facility] [address] [place], [address] Potassium [Moles/Vol] 3.8 mmol/L Normal 3.5-5.1 [facility] Comment on above: Result Comment: Mode rate Hemolysis, Result may be falsely increased. Performed By: #### L 501.9520, L501.5200, L500.4050, L501.2300, L501.4700 #### [facility] [address] [place], [address] Sodium [Moles/Vol] 136 mmol/L Normal 136-145 [facility] Comment on above: Performed By: #### L 501.9520, L501.5200, L500.4050, L501.2300, L501.4700 #### [facility] [address] [place], [address] T PROT 8.1 g/dL Normal 6.4-8.[address] [facility] Comment on above: Performed By: #### L 501.9520, L501.5200, L500.4050, L501.2300, L501.4700 #### [facility] [address] [place], [address] Urea nitrogen [Mass/Vol] 6 mg/dL Low 7-[address] [facility] Comment on above: Performed By: #### L 501.9520, L501.5200, L500.4050, L501.2300, L501.4700 #### [facility] [address] [place], [address] Emergency Department Summary on 06-20-[address] [facility] Medical Records Department [address] [place] [address] Emergency Department Summary 06/20/24 MR#: [id number] Acct: [id number] Name: YU YOUNGER Rep #: [id number] : 1990 33 From: Enrique Schwartz MD PCP: Care Physician,No Primary Status:ADM IN Location: [place] [address] HPI History of Present Illness Chief Complaint: Substance Abuse Informant: patient and spouse/S.O. 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 Drinks 6-9 bottles of 13% alcohol daily. Said he had a problem since August a year ago. Was admitted for detox a month or 2 ago but left AMA. He said he is not ready to accept the treatment. Prior history of pancreatitis denies abdominal pain. He currently is involved with the methadone clinic. Prior similar symptoms: Yes Recent [facility] Medical History Hx of renal calculi Pancreatitis Denies previous medical history Home Medications ???Medication ???Instructions ???Recorded ???Last Taken ???Type methadone 10 mg tablet 100 mg PO DAILY 05/22/24 06/20/24 History Allergy/AdvReac Type Severity Reaction Status Date / Time levetiracetam (From [facility]) Allergy HIVES Verified 06/20/24 11:48 Surgical History Hx of tonsillectomy Social History Smoking Status: Current every day smoker tobacco type: e-cigarettes ROS ROS ED ROS Narrative Nausea vomiting. Constitutional Constitutional ED: Denies chills or fever(s) Eyes Eyes: Denies blurry vision ENT ENT ED: Denies ear pain Cardiovascular Cardiovascular: Denies chest pain Respiratory/Chest Respiratory/Chest: Denies cough or dyspnea Gastrointestinal Gastrointestinal: Reports nausea and vomiting; Denies abdominal pain, constipation, diarrhea or melena Genitourinary Genitourinary ED: Denies dysuria Musculoskeletal Musculoskeletal: Denies arthralgias Integumentary Denies abscess or Abrasions Neurologic Neurologic: Denies headache(s) Psychiatric Psychiatric: Denies anxiety or depression Endocrine Endocrinology: Denies cold intolerance Hematologic/Lymphatic Hematologic/Lymphatic: Denies easy bleeding, easy bruising or lymphadenopathy Allergic/Immunologic Allergic/Immunologic ED: Denies mouth swelling, tongue swelling or urticaria EXAM Physical Exam Narrative Exam Narrative: 33-year-old male no acute distress. Female present in the room. Vital signs are stable he is afebrile. He does not look septic toxic or any distress. H EENT exam pupils round react light. Moist mucous membranes. No trauma. Neck nontender. Lungs clear to auscultation bilaterally. Heart regular rate and rhythm rate about 70 no murmur. Chest wall ribs nontender. Abdomen soft nontender. No peritoneal signs. Moving all 4 extremities. Normal strength. Normal range of motion. No deformity. No edema. Back nontender. Neurologically is awake alert no focal motor deficits. Const Vital Signs: 06/20/24 11:47 06/20/24 13:31 Temperature 98.2 F 97.8 F Temperature Source Oral Oral Pulse Rate 70 90 Respiratory Rate 16 16 Blood Pressure 142/101 H 138/100 H Blood Pressure Mean 114 112 Blood Pressure Source Monitor Blood Pressure Position Semi-Fowlers Blood Pressure Location Right Arm Pulse Ox 98 93 Oxygen Delivery Method Room Air Room Air Positive well nourished and well developed; Negative for obese, cachectic, contractures or unkempt General Appearance ED: well developed and NAD; Negative for unkempt, cachectic, contractures or pallor Nutritional Appearance: Negative for cachectic or obese HEENT Reports moist mucous membranes atraumatic; Negative for trauma or tenderness Eyes PERRL and EOMs intact bilaterally Neck no lymphadenopathy, supple and no JVD Lymph Lymphatic: no lymphadenopathy noted Chest Wall inspection of chest normal and palpation of chest normal Resp normal respiratory effort and clear to auscultation bilaterally Auscultation: Negative for rales, rhonchi or wheezes Cardio regular rate, regular rhythm, S1 normal heart sound, S2 normal heart sound and no murmurs GI soft to palpation, non-tender, non-distended and no masses Palpation: Negative for tender or guarding Back/Spine no CVA tenderness Extremity General Extremety ED: Negative for edema or tenderness General Extremity: Negative for edema Neuro oriented x3 and CN's II-XII intact b (more content not included)... Normal [facility] H AND P Exam - Hospitaliston 06-20-2024 H&P Exam - Hospitalist [facility] Medical Records Department [address] [place] [address] H P Exam - Hospitalist 06/20/24 1436 MR#: [id number] Acct: [id number] Name: YU YOUNGER Rep #: [id number] : 1990 33 From: David Mcguire MD PCP: Care Physician,No Primary Status:ADM IN Location: [facility] [place] [id number] HPI - General General Date of Admission: 06/20/24 HPI Narrative YU YOUNGER, is a 33 M who presents to the hospital requesting detox from alcohol. He used to use heroin and is currently on methadone but says that now he drinks. He drinks about 6-9 bottles of 13% alcohol every day. He did have a stay about a month ago where he left AMA so if he leaves again AMA and he cannot be readmitted for another 60 days. [facility] Medical History Hx of renal calculi Pancreatitis Denies previous medical history Home Medications ???Medication ???Instructions ???Recorded ???Last Taken ???Type methadone 10 mg tablet 100 mg PO DAILY 05/22/24 06/20/24 History Allergy/AdvReac Type Severity Reaction Status Date / Time levetiracetam (From [facility]) Allergy HIVES Verified 06/20/24 11:48 Family History (Updated 06/20/24 @ 14:[address] David Mcguire MD) Other Cancer Hypertension Surgical History Hx of tonsillectomy Social History Smoking Status: Current every day smoker tobacco type: e-cigarettes ROS Constitutional Constitutional: Denies chills, fatigue, fever(s) or malaise Eyes Eyes: Denies blurry vision ENT HEENT: Denies headache(s) or nasal discharge Cardiovascular Cardiovascular: Denies chest pain, dyspnea on exertion or syncope Respiratory/Chest Respiratory/Chest: Denies cough, shortness of breath at rest or shortness of breath with exertion Gastrointestinal Gastrointestinal: Reports nausea and vomiting; Denies constipation or diarrhea Genitourinary Genitourinary: Denies dysuria Neurologic Neurologic: Denies focal weakness, numbness or tremor(s) Psychiatric Psychiatric: Denies anxiety or depression Vital Signs Vital Signs Vital Signs: 06/20/24 11:47 06/20/24 13:31 06/20/24 14:30 Temperature 98.2 F 97.8 F 98.1 F Temperature Source Oral Oral Pulse Rate 70 90 86 Respiratory Rate 16 16 15 Blood Pressure 142/101 H 138/100 H 141/92 H Blood Pressure Mean 114 112 108 Blood Pressure Source Monitor Blood Pressure Position Semi-Fowlers Blood Pressure Location Right Arm Pulse Ox 98 93 98 Oxygen Delivery Method Room Air Room Air Weight Weight: 146 lb 8 oz Body Mass Index (BMI) 22.2 Physical Exam Narrative General: Alert, Oriented x3, Cooperative, No apparent distress HEENT: Atraumatic, PERRLA, EOMI, Normocephalic Oral: Moist Mucosa Neck: Supple, No JVD Lungs: Clear to auscultation, Normal air movement, No rhonchi, No wheeze, No rales Cardiovascular: Regular rate, Regular Rhythm, Normal S1, Normal S2, No murmurs Abdomen: Soft, Non Tender, Non-Distended, No Hepato-splenomegaly Extremities: No edema, Capillary Refill Less than 3 Seconds Skin: No rashes, No breakdown Musculoskeletal: No Tenderness to Palpation of Joints or Extremities Neurological: No focal neurological deficits, Motor Exam 5/5 strength throughout, Sensory exam intact to light touch and pain Psych/Mental Status: Normal Affect, Appropriate Results Lab / Micro Data 06/20/24 13:25 06/20/24 13:25 Labs: Laboratory Results - last 24 hr 06/20/24 12:51: Urine Opiates Screen NEGATIVE, Urine Methadone Screen POSITIVE H, Ur Barbiturates Screen POSITIVE H, Ur Phencyclidine Scrn NEGATIVE, Ur Amphetamines Screen NEGATIVE, MDMA (Ecstasy) Screen NEGATIVE, U Benzodiazepines Scrn NEGATIVE, Urine Cocaine Screen NEGATIVE, U Cannabinoids Screen POSITIVE H, Ur Drug Screen Comment 06/20/24 13:25: WBC 4.0 L, RBC 4.34 L, Hgb 13.8, Hct 41.5, MCV 95.6 H, MCH 31.8, MCHC 33.3, RDW Std Deviation 53.5 H, RDW Coeff of Ida 15.0 H, Plt Count 97 L, MPV 11.6, Immature Gran % (Auto) 0.300, Neut % (Auto) 52.4, Lymph % (Auto) 35.3, [place] % (Auto) 11.0 H, Eos % (Auto) 0.5, Baso % (Auto) 0.5, Absolute Neuts (auto) 2.1, Absolute Lymphs (auto) 1.41, Nucleated RBC % 0, Sodium 136, Potassium 3.8, Chloride 101, Carbon Dioxide 25.0, Anion Gap 10, BUN 6 L, Creatinine 0.85, Estim Creat Clear Calc 116.18, Est GFR (MDRD) Af Amer 132, Est GFR (MDRD) Non-Af 109, BUN/Creatinine Ratio 7.0 L, Glucose 102, Calcium 9.2, Total Bilirubin 2.00 H, AST 430 H, ALT 130 H, Alkaline Phosphatase 229 H, Total Protein 8.1, Albumin 3.4, Globulin 4.7 H, Albumin/Globulin Ratio 0.7 L, Ethyl Alcohol 271.0 Assessment Plan Assessment/Plan (1) Acute alcohol intoxication: PLAN: Plan 1. Alcohol abuse requesting detox/eleva (more content not included)... Normal [facility] Urine Drug Screen (VISTA)on 06-20-2024 AMPHETAMINES Negative Normal <1000 ng/mL [facility] Comment on above: Performed By: #### L 501.9520, L501.5200, L500.4050, L501.2300, L501.4700 #### [facility] [address] [place], [address] BARBITIURATES Positive Abnormal < 200 ng/mL [facility] Comment on above: Performed By: #### L [id number], L501.5200, L500.4050, L501.2300, L501.4700 #### [facility] [address] [place], [address] BENZODIAZIPINE Negative Normal < 200 ng/mL [facility] Comment on above: Performed By: #### L 501.9520, L501.5200, L500.4050, L501.2300, L501.4700 #### [facility] [address] [place], [address] COCAINE Negative Normal < 300 ng/mL [facility] Comment on above: Performed By: #### L 501.9520, L501.5200, L500.4050, L501.2300, L501.4700 #### [facility] [address] [place], [address] ECSTACY Negative Normal < 500 ng/mL [facility] Comment on above: Performed By: #### L 501.9520, L501.5200, L500.4050, L501.2300, L501.4700 #### [facility] [address] [place], [address] METHADONE Positive Abnormal < 300 ng/mL [facility] Comment on above: Performed By: #### L 501.9520, L501.5200, L500.4050, L501.2300, L501.4700 #### [facility] [address] [place], [address] OPIATES Negative Normal < 300 ng/mL [facility] Comment on above: Performed By: #### L 501.9520, L501.5200, L500.4050, L501.2300, L501.4700 #### [facility] [address] [place], [address] PCP Negative Normal < 25 ng/mL [facility] Comment on above: Performed By: #### L 501.9520, L501.5200, L500.4050, L501.2300, L501.4700 #### [facility] [address] [place], [address] THC Positive Abnormal < 50 ng/mL [facility] Comment on above: Performed By: #### L 501.9520, L501.5200, L500.4050, L501.2300, L501.4700 #### [facility] [address] [place], [address] VISTA UDS PH [address] [facility] Comment on above: Performed By: #### L 501.9520, L501.5200, L500.4050, L501.2300, L501.4700 #### [facility] [address] [place], [address] AMPHETAMINES Normal <1000 ng/mL [facility] Comment on above: Result Comment: DUPL ICATE ORDER. Performed By: #### L 501.9520, L501.5200, L500.4050, L501.2300, L501.4700 #### [facility] [address] [place], [address] BARBITIURATES Normal < 200 ng/mL [facility] Comment on above: Result Comment: DUPL ICATE ORDER. Performed By: #### L 501.9520, L501.5200, L500.4050, L501.2300, L501.4700 #### [facility] [address] [place], [address] BENZODIAZIPINE Normal < 200 ng/mL [facility] Comment on above: Result Comment: DUPL ICATE ORDER. Performed By: #### L 501.9520, L501.5200, L500.4050, L501.2300, L501.4700 #### [facility] [address] [place], [place], [facility] COCAINE Normal < 300 ng/mL [facility] Comment on above: Result Comment: DUPL ICATE ORDER. Performed By: #### L 501.9520, L501.5200, L500.4050, L501.2300, L501.4700 #### [facility] [address] [place], [place], [facility] DRUG CONFIRM Normal [facility] Comment on above: Result Comment: DUPL ICATE ORDER. Performed By: #### L 501.9520, L501.5200, L500.4050, L501.2300, L501.4700 #### [facility] [address] [place], [place], [facility] ECSTACY Normal < 500 ng/mL [facility] Comment on above: Result Comment: DUPL ICATE ORDER. Performed By: #### L 501.9520, L501.5200, L500.4050, L501.2300, L501.4700 #### [facility] [address] [place], [place], [facility] METHADONE Normal < 300 ng/mL [facility] Comment on above: Result Comment: DUPL ICATE ORDER. Performed By: #### L 501.9520, L501.5200, L500.4050, L501.2300, L501.4700 #### [facility] [address] [place], [address] OPIATES Normal < 300 ng/mL [facility] Comment on above: Result Comment: DUPL ICATE ORDER. Performed By: #### L 501.9520, L501.5200, L500.4050, L501.2300, L501.4700 #### [facility] [address] [place], [address] PCP Normal < 25 ng/mL [facility] Comment on above: Result Comment: DUPL ICATE ORDER. Performed By: #### L 501.9520, L501.5200, L500.4050, L501.2300, L501.4700 #### [facility] [address] [place], [address] THC Normal < 50 ng/mL [facility] Comment on above: Result Comment: DUPL ICATE ORDER. Performed By: #### L 501.9520, L501.5200, L500.4050, L501.2300, L501.4700 #### [facility] [address] [place], [address] VISTA UDS PH Normal [facility] Comment on above: Result Comment: DUPL ICATE ORDER. Performed By: #### L 501.9520, L501.5200, L500.4050, L501.2300, L501.4700 #### [facility] [address] [place], [address] CBC W/Diff, Automatedon 12-0 9-2023 Absolute Lymph 0.96 X10 3/uL Normal 0.83-4.[address] [facility] Comment on above: Performed By: #### L 100.0100 #### [facility] [address] [place], [address] Absolute Neut 2.0 X10 3/uL Normal 2.0-7.[address] [facility] Comment on above: Performed By: #### L 100.0100 #### [facility] [address] [place], [address] Basophils/100 WBC (Bld) 0.3 % Normal 0-[address] [facility] Comment on above: Performed By: #### L 100.0100 #### [facility] [address] [place], [address] Eosinophils/100 WBC (Bld) 1.1 % Normal 0-[address] [facility] Comment on above: Performed By: #### L 100.0100 #### [facility] [address] [place], [address] Erythrocyte distribution width (RBC) [Ratio] 14.5 % Normal 11.6-14.[address] [facility] Comment on above: Performed By: #### L 100.0100 #### [facility] [address] [place], [address] Hematocrit (Bld) [Volume fraction] 44.7 % Normal 40-[address] [facility] Comment on above: Performed By: #### L 100.0100 #### [facility] [address] [place], [address] Hemoglobin (Bld) [Mass/Vol] 14.5 g/dL Normal 13.0-16.[address] [facility] Comment on above: Performed By: #### L 100.0100 #### [facility] [address] [place], [address] IG% 0.300 Normal 0.0-0.[address] [facility] Comment on above: Result Comment: IG% - Immature Granulocytes (promyelocytes, myelocytes and metamyelocytes) > 1% indicates that a LEFT SHIFT is Present. Performed By: #### L 100.0100 #### [facility] [address] [place], [address] Lymphocytes/100 WBC (Bld) 27.4 % Normal 19-[address] [facility] Comment on above: Performed By: #### L 100.0100 #### [facility] [address] [place], [address] MCH (RBC) [Entitic mass] 31.6 pg Normal 27.0-32.[address] [facility] Comment on above: Performed By: #### L 100.0100 #### [facility] [address] [place], [address] MCHC (RBC) [Mass/Vol] 32.4 g/dL Normal 32-36 [facility] Comment on above: Performed By: #### L 100.0100 #### [facility] [address] [place], [address] MCV (RBC) [Entitic vol] 97.4 fL High 80-[address] [facility] Comment on above: Performed By: #### L 100.0100 #### [facility] [address] [place], [address] Monocytes/100 WBC (Bld) 13.7 % High 0-[address] [facility] Comment on above: Performed By: #### L 100.0100 #### [facility] [address] [place], [address] Neutrophils/100 WBC (Bld) 57.2 % Normal 47-[address] [facility] Comment on above: Performed By: #### L 100.0100 #### [facility] [address] [place], [address] Nucleated RBC (Bld) [#/Vol] 0 10*3/uL Normal 0-[address] [facility] Comment on above: Performed By: #### L 100.0100 #### [facility] [address] [place], [address] Platelet mean volume (Bld) [Entitic vol] 9.8 fL Normal 6.2-12.[address] [facility] Comment on above: Performed By: #### L 100.0100 #### [facility] [address] [place], [address] Platelets (Bld) [#/Vol] 95 10*3/uL Low 150-[address] [facility] Comment on above: Performed By: #### L 100.0100 #### [facility] [address] [place], [address] RBC (Bld) [#/Vol] 4.59 10*6/uL Low 4.6-6.2 [facility] Comment on above: Performed By: #### L 100.0100 #### [facility] [address] [place], [address] RDW SD 50.4 fl High 35.1-43.[address] [facility] Comment on above: Performed By: #### L 100.0100 #### [facility] [address] [place], [address] WBC (Bld) [#/Vol] 3.5 10*3/uL Low 4.4-11.0 [facility] Comment on above: Performed By: #### L 100.0100 #### [facility] [address] [place], [address] CBC W/Diff, Automatedon - PLT EST MOD DEC Normal ADEQ [facility] Comment on above: Performed By: #### L 501.9520, L501.5200, L500.4050, L501.2300, L501.4700 #### [facility] [address] [place], [address] SMEAR COMMENT SCANNED Normal [facility] Comment on above: Performed By: #### L 501.9520, L501.5200, L500.4050, L501.2300, L501.4700 #### [facility] [address] [place], [address] Comprehensive Metabolic Prof ilon 05-24-2024 Albumin [Mass/Vol] 3.1 g/dL Low 3.2-5.0 [facility] Comment on above: Performed By: #### L 501.9520, L501.5200, L500.4050, L501.2300, L501.4700 #### [facility] [address] [place], [address] Albumin/Globulin [Mass ratio] 0.8 {ratio} Low 0.9-2.[address] [facility] Comment on above: Performed By: #### L 501.9520, L501.5200, L500.4050, L501.2300, L501.4700 #### [facility] [address] [place], [address] ALK P 211 U/L High 45-[address] [facility] Comment on above: Performed By: #### L 501.9520, L501.5200, L500.4050, L501.2300, L501.4700 #### [facility] [address] [place], [address] ALT [Catalytic activity/Vol] 92 U/L High 16-[address] [facility] Comment on above: Performed By: #### L 501.9520, L501.5200, L500.4050, L501.2300, L501.4700 #### [facility] [address] [place], [address] AST [Catalytic activity/Vol] 209 U/L High 15-[address] [facility] Comment on above: Performed By: #### L 501.9520, L501.5200, L500.4050, L501.2300, L501.4700 #### [facility] [address] [place], [address] Bilirubin [Mass/Vol] 1.70 mg/dL High 0.20-1.00 [facility] Comment on above: Result Comment: For patients on eltrombopag therapy, use of Dimension [place] TBIL is not recommended. Performed By: #### L 501.9520, L501.5200, L500.4050, L501.2300, L501.4700 #### [facility] [address] [place], [address] BUN/CRE 9.1 RATIO Low 10-[address] [facility] Comment on above: Performed By: #### L 501.9520, L501.5200, L500.4050, L501.2300, L501.4700 #### [facility] [address] [place], [address] CA,Total 8.9 mg/dL Normal 8.5-10.[address] [facility] Comment on above: Performed By: #### L 501.9520, L501.5200, L500.4050, L501.2300, L501.4700 #### [facility] [address] [place], [address] Chloride [Moles/Vol] 105 mmol/L Normal 98-107 [facility] Comment on above: Performed By: #### L 501.9520, L501.5200, L500.4050, L501.2300, L501.4700 #### [facility] [address] [place], [address] CO2 [Moles/Vol] 26.0 mmol/L Normal 21.0-32.[address] [facility] Comment on above: Performed By: #### L 501.9520, L501.5200, L500.4050, L501.2300, L501.4700 #### [facility] [address] [place], [address] Creatinine [Mass/Vol] 0.77 mg/dL Normal 0.70-1.30 [facility] Comment on above: Result Comment: The validity of the calculated GFR GFRAA in patients over 70 years has not been determined. Clinical correlation is essential. Performed By: #### L 501.9520, L501.5200, L500.4050, L501.2300, L501.4700 #### [facility] [address] [place], [address] ECRCL 132.01 ml/min Normal [facility] Comment on above: Performed By: #### L 501.9520, L501.5200, L500.4050, L501.2300, L501.4700 #### [facility] [address] [place], [address] EST GFR - AA 149 mL/min Normal >[address] [facility] Comment on above: Result Comment: Afri can Peruvian GFR Calc Performed By: #### L 501.9520, L501.5200, L500.4050, L501.2300, L501.4700 #### [facility] [address] [place], [address] GAP 7 Normal 5-[address] [facility] Comment on above: Performed By: #### L 501.9520, L501.5200, L500.4050, L501.2300, L501.4700 #### [facility] [address] [place], [address] GFR/1.73 sq M.predicted among non-blacks MDRD (S/P/Bld) [Vol rate/Area] 123 mL/min/{1.73_m2} Normal >[address] [facility] Comment on above: Result Comment: Non- GFR Calc Performed By: #### L 501.9520, L501.5200, L500.4050, L501.2300, L501.4700 #### [facility] [address] [place], [address] Globulin (S) [Mass/Vol] 4.0 g/dL Normal 2.2-4.[address] [facility] Comment on above: Performed By: #### L 501.9520, L501.5200, L500.4050, L501.2300, L501.4700 #### [facility] [address] [place], [address] Glucose [Mass/Vol] 52 mg/dL Low 74-106 [facility] Comment on above: Performed By: #### L 501.9520, L501.5200, L500.4050, L501.2300, L501.4700 #### [facility] [address] [place], [address] Potassium [Moles/Vol] 4.2 mmol/L Normal 3.5-5.1 [facility] Comment on above: Performed By: #### L 501.9520, L501.5200, L500.4050, L501.2300, L501.4700 #### [facility] [address] [place], [address] Sodium [Moles/Vol] 138 mmol/L Normal 136-145 [facility] Comment on above: Performed By: #### L 501.9520, L501.5200, L500.4050, L501.2300, L501.4700 #### [facility] [address] [place], [address] T PROT 7.1 g/dL Normal 6.4-8.[address] [facility] Comment on above: Performed By: #### L 501.9520, L501.5200, L500.4050, L501.2300, L501.4700 #### [facility] [address] [place], [address] Urea nitrogen [Mass/Vol] 7 mg/dL Normal 7-[address] [facility] Comment on above: Performed By: #### L 501.9520, L501.5200, L500.4050, L501.2300, L501.4700 #### [facility] [address] [place], [address] Magnesiumon 05-24-2024 Magnesium [Mass/Vol] 1.7 mg/dL Normal 1.6-2.6 [facility] Comment on above: Performed By: #### L 501.9520, L501.5200, L500.4050, L501.2300, L501.4700 #### [facility] [address] [place], [address] Phosphoruson 05-24-2024 Phosphate [Mass/Vol] 2.5 mg/dL Normal 2.5-4.9 [facility] Comment on above: Performed By: #### L 501.9520, L501.5200, L500.4050, L501.2300, L501.4700 #### [facility] [address] [place], [address] Bilirubin, Directon 05-23-20 Bilirubin.direct [Mass/Vol] 0.56 mg/dL High 0.00-0.[address] [facility] Comment on above: Order Comment: REDRA W. PREVIOUS SPECIMEN REJECTED DUE TO QNS. 05/23/24 0647 Bonilla Moore. Performed By: #### L 501.9520, L501.5200, L500.4050, L501.2300, L501.4700 #### [facility] [address] [place], [address] CBC W/Diff, Automatedon 12 Absolute Neut Normal 2.0-7.[address] [facility] Comment on above: Order Comment: REDRA W. PREVIOUS SPECIMEN REJECTED DUE TO QNS. 05/23/24 0647 Bonilla Moore. Result Comment: NOT NEEDED BY DEJA MCCLURE MR Performed By: #### L [id number], L501.5200, L500.4050, L501.2300, L501.4700 #### [facility] [address] [place], [address] HCT Normal 40-[address] [facility] Comment on above: Order Comment: REDRA W. PREVIOUS SPECIMEN REJECTED DUE TO QNS. 05/23/2447 Bonilla Moore. Result Comment: NOT NEEDED BY REN, JUST USE MR Performed By: #### L [id number], L501.5200, L500.4050, L501.2300, L501.4700 #### [facility] [address] [place], [address] HGB Normal 13.0-16.[address] [facility] Comment on above: Order Comment: REDRA W. PREVIOUS SPECIMEN REJECTED DUE TO QNS. 05/23/2447 Bonilla R Moore. Result Comment: NOT NEEDED BY REN, JUST USE MR Performed By: #### L [id number], L501.5200, L500.4050, L501.2300, L501.4700 #### [facility] [address] [place], [address] MCH Normal 27.0-32.[address] [facility] Comment on above: Order Comment: REDRA W. PREVIOUS SPECIMEN REJECTED DUE TO QNS. 05/23/24 06 Bonilla R Moore. Result Comment: NOT NEEDED BY REN, JUST USE MR Performed By: #### L [id number], L501.5200, L500.4050, L501.2300, L501.4700 #### [facility] [address] [place], [address] MCHC Normal 32-[address] [facility] Comment on above: Order Comment: REDRA W. PREVIOUS SPECIMEN REJECTED DUE TO QNS. 05/23/2447 Bonilla R Moore. Result Comment: NOT NEEDED BY REN, JUST USE MR Performed By: #### L [id number], L501.5200, L500.4050, L501.2300, L501.4700 #### [facility] [address] [place], [address] MCV Normal 80-[address] [facility] Comment on above: Order Comment: REDRA W. PREVIOUS SPECIMEN REJECTED DUE TO QNS. 05/23/2447 Bonilla R Moore. Result Comment: NOT NEEDED BY EAFFOLTER, JUST USE MR Performed By: #### L [id number], L501.5200, L500.4050, L501.2300, L501.4700 #### [facility] [address] [place], [address] NEUT% Normal 47-[address] [facility] Comment on above: Order Comment: REDRA W. PREVIOUS SPECIMEN REJECTED DUE TO QNS. 05/23/2447 Bonilla R Moore. Result Comment: NOT NEEDED BY REN, JUST USE MR Performed By: #### L [id number], L501.5200, L500.4050, L501.2300, L501.4700 #### [facility] [address] [place], [address] PLT Normal 150-[address] [facility] Comment on above: Order Comment: REDRA W. PREVIOUS SPECIMEN REJECTED DUE TO QNS. 05/23/24 Bonilla R Moore. Result Comment: NOT NEEDED BY [facility], JUST USE MR Performed By: #### L 501.9520, L501.5200, L500.4050, L501.2300, L501.4700 #### [facility] [address] [place], [address] RBC Normal 4.6-6.[address] [facility] Comment on above: Order Comment: REDRA W. PREVIOUS SPECIMEN REJECTED DUE TO QNS. 05/23/2447 Bonilla R Moore. Result Comment: NOT NEEDED BY REN, JUST USE MR Performed By: #### L [id number], L501.5200, L500.4050, L501.2300, L501.4700 #### [facility] [address] [place], [address] RDW CV Normal 11.6-14.[address] [facility] Comment on above: Order Comment: REDRA W. PREVIOUS SPECIMEN REJECTED DUE TO QNS. 05/23/2447 Bonilla R Moore. Result Comment: NOT NEEDED BY REN, JUST USE MR Performed By: #### L [id number], L501.5200, L500.4050, L501.2300, L501.4700 #### [facility] [address] [place], [address] RDW SD Normal 35.1-43.[address] [facility] Comment on above: Order Comment: REDRA W. PREVIOUS SPECIMEN REJECTED DUE TO QNS. 05/23/2447 Bonilla R Moore. Result Comment: NOT NEEDED BY REN, JUST USE MR Performed By: #### L 501.9520, L501.5200, L500.4050, L501.2300, L501.4700 #### [facility] [address] [place], [address] WBC Normal 4.4-11.[address] [facility] Comment on above: Order Comment: REDRA W. PREVIOUS SPECIMEN REJECTED DUE TO QNS. 05/23/24 Bonilla R Moore. Result Comment: NOT NEEDED BY [facility], JUST USE MR Performed By: #### L 501.9520, L501.5200, L500.4050, L501.2300, L501.4700 #### [facility] [address] [place], [address] Absolute Lymph 1.59 X10 3/uL Normal 0.83-4.[address] [facility] Comment on above: Order Comment: REDRA W. PREVIOUS SPECIMEN REJECTED DUE TO QNS. 05/23/2447 Bonilla R Moore. Performed By: #### L 501.9520, L501.5200, L500.4050, L501.2300, L501.4700 #### [facility] [address] [place], [address] Absolute Neut 1.6 X10 3/uL Low 2.0-7.[address] [facility] Comment on above: Order Comment: REDRA W. PREVIOUS SPECIMEN REJECTED DUE TO QNS. 05/23/2447 Bonilla R Moore. Performed By: #### L 501.9520, L501.5200, L500.4050, L501.2300, L501.4700 #### [facility] [address] [place], [address] Basophils/100 WBC (Bld) 0.3 % Normal 0-[address] [facility] Comment on above: Order Comment: REDRA W. PREVIOUS SPECIMEN REJECTED DUE TO QNS. 05/23/2447 Bonilla Vital Moore. Performed By: #### L 501.9520, L501.5200, L500.4050, L501.2300, L501.4700 #### [facility] [address] [place], [address] Eosinophils/100 WBC (Bld) 0.3 % Normal 0-[address] [facility] Comment on above: Order Comment: REDRA W. PREVIOUS SPECIMEN REJECTED DUE TO QNS. 05/23/2447 Bonilla Vital Moore. Performed By: #### L 501.9520, L501.5200, L500.4050, L501.2300, L501.4700 #### [facility] [address] [place], [address] Erythrocyte distribution width (RBC) [Ratio] 14.4 % Normal 11.6-14.[address] [facility] Comment on above: Order Comment: REDRA W. PREVIOUS SPECIMEN REJECTED DUE TO QNS. 05/23/2447 Bonilla R Moore. Performed By: #### L 501.9520, L501.5200, L500.4050, L501.2300, L501.4700 #### [facility] [address] [place], [address] Hematocrit (Bld) [Volume fraction] 41.2 % Normal 40-[address] [facility] Comment on above: Order Comment: REDRA W. PREVIOUS SPECIMEN REJECTED DUE TO QNS. 05/23/2447 Bonilla R Moore. Performed By: #### L [id number], L501.5200, L500.4050, L501.2300, L501.4700 #### [facility] [address] [place], [address] Hemoglobin (Bld) [Mass/Vol] 13.4 g/dL Normal 13.0-16.[address] [facility] Comment on above: Order Comment: REDRA W. PREVIOUS SPECIMEN REJECTED DUE TO QNS. 05/23/24 Bonilla R Moore. Performed By: #### L 501.9520, L501.5200, L500.4050, L501.2300, L501.4700 #### [facility] [address] [place], [address] IG% 0.300 Normal 0.0-0.[address] [facility] Comment on above: Order Comment: REDRA W. PREVIOUS SPECIMEN REJECTED DUE TO QNS. 05/23/24 Bonilla R Omore. Result Comment: IG% - Immature Granulocytes (promyelocytes, myelocytes and metamyelocytes) > 1% indicates that a LEFT SHIFT is Present. Performed By: #### L 501.9520, L501.5200, L500.4050, L501.2300, L501.4700 #### [facility] [address] [place], [address] Lymphocytes/100 WBC (Bld) 43.8 % High 19-[address] [facility] Comment on above: Order Comment: REDRA W. PREVIOUS SPECIMEN REJECTED DUE TO QNS. 05/23/2447 Bonilla R Moore. Performed By: #### L 501.9520, L501.5200, L500.4050, L501.2300, L501.4700 #### [facility] [address] [place], [address] MCH (RBC) [Entitic mass] 31.5 pg Normal 27.0-32.[address] [facility] Comment on above: Order Comment: REDRA W. PREVIOUS SPECIMEN REJECTED DUE TO QNS. 05/23/24 Bonilla R Moore. Performed By: #### L 501.9520, L501.5200, L500.4050, L501.2300, L501.4700 #### [facility] [address] [place], [address] MCHC (RBC) [Mass/Vol] 32.5 g/dL Normal 32-36 [facility] Comment on above: Order Comment: REDRA W. PREVIOUS SPECIMEN REJECTED DUE TO QNS. 05/23/2447 Bonilla R Moore. Performed By: #### L 501.9520, L501.5200, L500.4050, L501.2300, L501.4700 #### [facility] [address] [place], [address] MCV (RBC) [Entitic vol] 96.7 fL High 80-[address] [facility] Comment on above: Order Comment: REDRA W. PREVIOUS SPECIMEN REJECTED DUE TO QNS. 05/23/2447 Bonilla R Moore. Performed By: #### L 501.9520, L501.5200, L500.4050, L501.2300, L501.4700 #### [facility] [address] [place], [address] Monocytes/100 WBC (Bld) 12.1 % High 0-[address] [facility] Comment on above: Order Comment: REDRA W. PREVIOUS SPECIMEN REJECTED DUE TO QNS. 05/23/2447 Bonilla R Moore. Performed By: #### L 501.9520, L501.5200, L500.4050, L501.2300, L501.4700 #### [facility] [address] [place], [address] Neutrophils/100 WBC (Bld) 43.2 % Low 47-[address] [facility] Comment on above: Order Comment: REDRA W. PREVIOUS SPECIMEN REJECTED DUE TO QNS. 05/23/2447 Bonilla R Moore. Performed By: #### L 501.9520, L501.5200, L500.4050, L501.2300, L501.4700 #### [facility] [address] [place], [address] Nucleated RBC (Bld) [#/Vol] 0 10*3/uL Normal 0-[address] [facility] Comment on above: Order Comment: REDRA W. PREVIOUS SPECIMEN REJECTED DUE TO QNS. 05/23/24646 Bonilla R Moore. Performed By: #### L 501.9520, L501.5200, L500.4050, L501.2300, L501.4700 #### [facility] [address] [place], [address] Platelet mean volume (Bld) [Entitic vol] 9.2 fL Normal 6.2-12.[address] [facility] Comment on above: Order Comment: REDRA W. PREVIOUS SPECIMEN REJECTED DUE TO QNS. 05/23/2447 Bonilla R Moore. Performed By: #### L 501.9520, L501.5200, L500.4050, L501.2300, L501.4700 #### [facility] [address] [place], [address] Platelets (Bld) [#/Vol] 114 10*3/uL Low 150-[address] [facility] Comment on above: Order Comment: REDRA W. PREVIOUS SPECIMEN REJECTED DUE TO QNS. 05/23/2447 Bonilla R Moore. Performed By: #### L 501.9520, L501.5200, L500.4050, L501.2300, L501.4700 #### [facility] [address] [place], [address] RBC (Bld) [#/Vol] 4.26 10*6/uL Low 4.6-6.2 [facility] Comment on above: Order Comment: REDRA W. PREVIOUS SPECIMEN REJECTED DUE TO QNS. 05/23/2447 Bonilla R Moore. Performed By: #### L 501.9520, L501.5200, L500.4050, L501.2300, L501.4700 #### [facility] [address] [place], [address] RDW SD 50.4 fl High 35.1-43.[address] [facility] Comment on above: Order Comment: REDRA W. PREVIOUS SPECIMEN REJECTED DUE TO QNS. 05/23/2447 Bonilla R Moore. Performed By: #### L 501.9520, L501.5200, L500.4050, L501.2300, L501.4700 #### [facility] [address] [place], [address] WBC (Bld) [#/Vol] 3.6 10*3/uL Low 4.4-11.0 [facility] Comment on above: Order Comment: REDRA W. PREVIOUS SPECIMEN REJECTED DUE TO QNS. 05/23/2447 Bonilla R Mooer. Performed By: #### L 501.9520, L501.5200, L500.4050, L501.2300, L501.4700 #### [facility] [address] [place], [address] Absolute Neut Normal 2.0-7.[address] [facility] Comment on above: Result Comment: This specimen has been REJECTED due to Laboratory criteria: Quanity Not Sufficient. JVOJTUSH has been notified of need of recollection. 05/23/24641 Bonilla R Moore Performed By: #### L 501.9520, L501.5200, L500.4050, L501.2300, L501.4700 #### [facility] [address] [place], [address] HCT Normal 40-[address] [facility] Comment on above: Result Comment: This specimen has been REJECTED due to Laboratory criteria: Quanity Not Sufficient. [facility] recollection. 05/23/24641 Bonilla R Moore Performed By: #### L [id number], L501.5200, L500.4050, L501.2300, L501.4700 #### [facility] [address] [place], [address] HGB Normal 13.0-16.[address] [facility] Comment on above: Result Comment: This specimen has been REJECTED due to Laboratory criteria: Quanity Not Sufficient. JVOJTUSH has been notified of need of recollection. 05/23/2442 Bonilla R Moore Performed By: #### L 501.9520, L501.5200, L500.4050, L501.2300, L501.4700 #### [facility] [address] [place], [address] MCH Normal 27.0-32.[address] [facility] Comment on above: Result Comment: This specimen has been REJECTED due to Laboratory criteria: Quanity Not Sufficient. JVOJTUSH has been notified of need of recollection. 05/23/2442 Bonilla R Moore Performed By: #### L 501.9520, L501.5200, L500.4050, L501.2300, L501.4700 #### [facility] [address] [place], [address] MCHC Normal 32-[address] [facility] Comment on above: Result Comment: This specimen has been REJECTED due to Laboratory criteria: Quanity Not Sufficient. JVOJTUSH has been notified of need of recollection. 05/23/2442 Bonilla R Moore Performed By: #### L 501.9520, L501.5200, L500.4050, L501.2300, L501.4700 #### [facility] [address] [place], [address] MCV Normal 80-[address] [facility] Comment on above: Result Comment: This specimen has been REJECTED due to Laboratory criteria: Quanity Not Sufficient. JVOJTUSH has been notified of need of recollection. 05/23/2442 Bonilla R Moore Performed By: #### L 501.9520, L501.5200, L500.4050, L501.2300, L501.4700 #### [facility] [address] [place], [address] NEUT% Normal 47-[address] [facility] Comment on above: Result Comment: This specimen has been REJECTED due to Laboratory criteria: Quanity Not Sufficient. [facility] has been notified of need of recollection. 05/23/24641 Bonilla R Moore Performed By: #### L 501.9520, L501.5200, L500.4050, L501.2300, L501.4700 #### [facility] [address] [place], [address] PLT Normal 150-[address] [facility] Comment on above: Result Comment: This specimen has been REJECTED due to Laboratory criteria: Quanity Not Sufficient. [facility] has been notified of need of recollection. 05/23/24641 Bonilla R Moore Performed By: #### L 501.9520, L501.5200, L500.4050, L501.2300, L501.4700 #### [facility] [address] [place], [address] RBC Normal 4.6-6.[address] [facility] Comment on above: Result Comment: This specimen has been REJECTED due to Laboratory criteria: Quanity Not Sufficient. [facility] has been notified of need of recollection. 05/23/24641 Bonilla R Moore Performed By: #### L 501.9520, L501.5200, L500.4050, L501.2300, L501.4700 #### [facility] [address] [place], [address] RDW CV Normal 11.6-14.[address] [facility] Comment on above: Result Comment: This specimen has been REJECTED due to Laboratory criteria: Quanity Not Sufficient. [facility] been notified of need of recollection. 05/23/24641 Bonilla R Moore Performed By: #### L 501.9520, L501.5200, L500.4050, L501.2300, L501.4700 #### [facility] [address] [place], [address] RDW SD Normal 35.1-43.[address] [facility] Comment on above: Result Comment: This specimen has been REJECTED due to Laboratory criteria: Quanity Not Sufficient. FRAN has been notified of need of recollection. 05/23/24641 Bonilla R Moore Performed By: #### L 501.9520, L501.5200, L500.4050, L501.2300, L501.4700 #### [facility] [address] [place], [address] WBC Normal 4.4-11.[address] [facility] Comment on above: Result Comment: This specimen has been REJECTED due to Laboratory criteria: Quanity Not Sufficient. FRAN has been notified of need of recollection. 05/23/2442 Bonilla R Moore Performed By: #### L 501.9520, L501.5200, L500.4050, L501.2300, L501.4700 #### [facility] [address] [place], [address] Comprehensive Metabolic Prof ilon 05-23-2024 Albumin [Mass/Vol] 3.3 g/dL Normal 3.2-5.0 [facility] Comment on above: Order Comment: RED W. PREVIOUS SPECIMEN REJECTED DUE TO QNS. 05/23/2447 Bonilla R Moore. Performed By: #### L 501.9520, L501.5200, L500.4050, L501.2300, L501.4700 #### [facility] [address] [place], [address] Albumin/Globulin [Mass ratio] 0.9 {ratio} Normal 0.9-2.[address] [facility] Comment on above: Order Comment: ABIDA W. PREVIOUS SPECIMEN REJECTED DUE TO QNS. 05/23/2447 Bonilla R Moore. Performed By: #### L 501.9520, L501.5200, L500.4050, L501.2300, L501.4700 #### [facility] [address] [place], [address] ALK P 190 U/L High 45-[address] [facility] Comment on above: Order Comment: REDRA W. PREVIOUS SPECIMEN REJECTED DUE TO QNS. 05/23/2447 Bonilla R Moore. Performed By: #### L 501.9520, L501.5200, L500.4050, L501.2300, L501.4700 #### [facility] [address] [place], [address] ALT [Catalytic activity/Vol] 98 U/L High 16-[address] [facility] Comment on above: Order Comment: REDRA W. PREVIOUS SPECIMEN REJECTED DUE TO QNS. 05/23/2447 Bonilla R Moore. Performed By: #### L 501.9520, L501.5200, L500.4050, L501.2300, L501.4700 #### [facility] [address] [place], [address] AST [Catalytic activity/Vol] 203 U/L High 15-[address] [facility] Comment on above: Order Comment: REDRA W. PREVIOUS SPECIMEN REJECTED DUE TO QNS. 05/23/2447 Bonilla R Moore. Performed By: #### L 501.9520, L501.5200, L500.4050, L501.2300, L501.4700 #### [facility] [address] [place], [address] Bilirubin [Mass/Vol] 1.00 mg/dL Normal 0.20-1.00 [facility] Comment on above: Order Comment: REDRA W. PREVIOUS SPECIMEN REJECTED DUE TO QNS. 05/23/2447 Bonilla R Moore. Result Comment: For patients on eltrombopag therapy, use of Dimension [place] TBIL is not recommended. Performed By: #### L 501.9520, L501.5200, L500.4050, L501.2300, L501.4700 #### [facility] [address] [place], [address] BUN/CRE 9.1 RATIO Low 10-[address] [facility] Comment on above: Order Comment: REDRA W. PREVIOUS SPECIMEN REJECTED DUE TO QNS. 05/23/2447 Bonilla R Moore. Performed By: #### L 501.9520, L501.5200, L500.4050, L501.2300, L501.4700 #### [facility] [address] [place], [address] CA,Total 8.4 mg/dL Low 8.5-10.[address] [facility] Comment on above: Order Comment: REDRA W. PREVIOUS SPECIMEN REJECTED DUE TO QNS. 05/23/2447 Bonilla R Moore. Performed By: #### L 501.9520, L501.5200, L500.4050, L501.2300, L501.4700 #### [facility] [address] [place], [address] Chloride [Moles/Vol] 110 mmol/L High 98-107 [facility] Comment on above: Order Comment: REDRA W. PREVIOUS SPECIMEN REJECTED DUE TO QNS. 05/23/2447 Bonilla R Moore. Performed By: #### L 501.9520, L501.5200, L500.4050, L501.2300, L501.4700 #### [facility] [address] [place], [address] CO2 [Moles/Vol] 25.0 mmol/L Normal 21.0-32.[address] [facility] Comment on above: Order Comment: REDRA W. PREVIOUS SPECIMEN REJECTED DUE TO QNS. 05/23/2447 Bonilla R Moore. Performed By: #### L 501.9520, L501.5200, L500.4050, L501.2300, L501.4700 #### [facility] [address] [place], [address] Creatinine [Mass/Vol] 0.77 mg/dL Normal 0.70-1.30 [facility] Comment on above: Order Comment: REDRA W. PREVIOUS SPECIMEN REJECTED DUE TO QNS. 05/23/2447 Bonilla R Moore. Result Comment: The validity of the calculated GFR GFRAA in patients over 70 years has not been determined. Clinical correlation is essential. Performed By: #### L 501.9520, L501.5200, L500.4050, L501.2300, L501.4700 #### [facility] [address] [place], [address] ECRCL 131.43 ml/min Normal [facility] Comment on above: Order Comment: REDRA W. PREVIOUS SPECIMEN REJECTED DUE TO QNS. 05/23/24 Bonilla R Moore. Performed By: #### L 501.9520, L501.5200, L500.4050, L501.2300, L501.4700 #### [facility] [address] [place], [address] EST GFR - AA 149 mL/min Normal >[address] [facility] Comment on above: Order Comment: REDRA W. PREVIOUS SPECIMEN REJECTED DUE TO QNS. 05/23/2447 Bonilla R Moore. Result Comment: Afri can Peruvian GFR Calc Performed By: #### L 501.9520, L501.5200, L500.4050, L501.2300, L501.4700 #### [facility] [address] [place], [address] GAP 7 Normal 5-[address] [facility] Comment on above: Order Comment: REDRA W. PREVIOUS SPECIMEN REJECTED DUE TO QNS. 05/23/2447 Bonilla R Moore. Performed By: #### L 501.9520, L501.5200, L500.4050, L501.2300, L501.4700 #### [facility] [address] [place], [address] GFR/1.73 sq M.predicted among non-blacks MDRD (S/P/Bld) [Vol rate/Area] 123 mL/min/{1.73_m2} Normal >[address] [facility] Comment on above: Order Comment: ABIDA W. PREVIOUS SPECIMEN REJECTED DUE TO QNS. 05/23/2447 Bonilla R Moore. Result Comment: Non- GFR Calc Performed By: #### L 501.9520, L501.5200, L500.4050, L501.2300, L501.4700 #### [facility] [address] [place], [address] Globulin (S) [Mass/Vol] 3.7 g/dL Normal 2.2-4.[address] [facility] Comment on above: Order Comment: ABIDA W. PREVIOUS SPECIMEN REJECTED DUE TO QNS. 05/23/24 47 Bonilla R Moore. Performed By: #### L 501.9520, L501.5200, L500.4050, L501.2300, L501.4700 #### [facility] [address] [place], [address] Glucose [Mass/Vol] 79 mg/dL Normal 74-106 [facility] Comment on above: Order Comment: ABIDA W. PREVIOUS SPECIMEN REJECTED DUE TO QNS. 05/23/2447 Bonilla R Moore. Performed By: #### L 501.9520, L501.5200, L500.4050, L501.2300, L501.4700 #### [facility] [address] [place], [address] Potassium [Moles/Vol] 3.5 mmol/L Normal 3.5-5.1 [facility] Comment on above: Order Comment: RED W. PREVIOUS SPECIMEN REJECTED DUE TO QNS. 05/23/2447 Bonilla R Moore. Performed By: #### L 501.9520, L501.5200, L500.4050, L501.2300, L501.4700 #### [facility] [address] [place], [address] Sodium [Moles/Vol] 142 mmol/L Normal 136-145 [facility] Comment on above: Order Comment: REDRA W. PREVIOUS SPECIMEN REJECTED DUE TO QNS. 05/23/2447 Bonilla R Moore. Performed By: #### L 501.9520, L501.5200, L500.4050, L501.2300, L501.4700 #### [facility] [address] [place], [address] T PROT 7.0 g/dL Normal 6.4-8.[address] [facility] Comment on above: Order Comment: REDRA W. PREVIOUS SPECIMEN REJECTED DUE TO QNS. 05/23/24646 Bonilla R Moore. Performed By: #### L 501.9520, L501.5200, L500.4050, L501.2300, L501.4700 #### [facility] [address] [place], [address] Urea nitrogen [Mass/Vol] 7 mg/dL Normal 7-[address] [facility] Comment on above: Order Comment: REDRA W. PREVIOUS SPECIMEN REJECTED DUE TO QNS. 05/23/24646 Bonilla R Moore. Performed By: #### L 501.9520, L501.5200, L500.4050, L501.2300, L501.4700 #### [facility] [address] [place], [address] BUN Normal 7-[address] [facility] Comment on above: Result Comment: This specimen has been REJECTED due to Laboratory criteria: Quanity Not Sufficient. FRAN has been notified of need of recollection. 05/23/24645 Bonilla R Moore Performed By: #### L 501.9520, L501.5200, L500.4050, L501.2300, L501.4700 #### [facility] [address] [place], [address] BUN/CRE Normal 10-[address] [facility] Comment on above: Result Comment: This specimen has been REJECTED due to Laboratory criteria: Quanity Not Sufficient. [facility] has been notified of need of recollection. 05/23/24645 Bonilla R Moore Performed By: #### L 501.9520, L501.5200, L500.4050, L501.2300, L501.4700 #### [facility] [address] [place], [address] CA,Total Normal 8.5-10.[address] [facility] Comment on above: Result Comment: This specimen has been REJECTED due to Laboratory criteria: Quanity Not Sufficient. [facility] need of recollection. 05/23/2446 Bonilla R Moore Performed By: #### L 501.9520, L501.5200, L500.4050, L501.2300, L501.4700 #### [facility] [address] [place], [address] CL Normal 98-[address] [facility] Comment on above: Result Comment: This specimen has been REJECTED due to Laboratory criteria: Quanity Not Sufficient. [facility] has been notified of need of recollection. 05/23/2446 Bonilla R Moore Performed By: #### L [id number], L501.5200, L500.4050, L501.2300, L501.4700 #### [facility] [address] [place], [address] CO2 Normal 21.0-32.[address] [facility] Comment on above: Result Comment: This specimen has been REJECTED due to Laboratory criteria: Quanity Not Sufficient. [facility] has been notified of need of recollection. 05/23/2446 Bonilla R Moore Performed By: #### L 501.9520, L501.5200, L500.4050, L501.2300, L501.4700 #### [facility] [address] [place], [address] CREAT,SERUM Normal 0.70-1.[address] [facility] Comment on above: Result Comment: This specimen has been REJECTED due to Laboratory criteria: Quanity Not Sufficient. [facility] notified [facility] need of recollection. 05/23/2446 Bonilla R Moore Performed By: #### L 501.9520, L501.5200, L500.4050, L501.2300, L501.4700 #### [facility] [address] [place], [address] EST GFR Normal >[address] [facility] Comment on above: Result Comment: This specimen has been REJECTED due to Laboratory criteria: Quanity Not Sufficient. [facility] notified [facility] need of recollection. 05/23/24645 Bonilla R Moore Performed By: #### L 501.9520, L501.5200, L500.4050, L501.2300, L501.4700 #### [facility] [address] [place], [address] EST GFR - AA Normal >[address] [facility] Comment on above: Result Comment: This specimen has been REJECTED due to Laboratory criteria: Quanity Not Sufficient. [facility] has been notified of need of recollection. 05/23/2446 Bonilla R Moore Performed By: #### L 501.9520, L501.5200, L500.4050, L501.2300, L501.4700 #### [facility] [address] [place], [address] GAP Normal 5-[address] [facility] Comment on above: Result Comment: This specimen has been REJECTED due to Laboratory criteria: Quanity Not Sufficient. [facility] has been notified of need of recollection. 05/23/2446 Bonilla R Moore Performed By: #### L 501.9520, L501.5200, L500.4050, L501.2300, L501.4700 #### [facility] [address] [place], [address] GLU Normal 74-[address] [facility] Comment on above: Result Comment: This specimen has been REJECTED due to Laboratory criteria: Quanity Not Sufficient. [facility] has been notified of need of recollection. 05/23/24645 Bonilla R Moore Performed By: #### L 501.9520, L501.5200, L500.4050, L501.2300, L501.4700 #### [facility] [address] [place], [address] Potassium Normal 3.5-5.[address] [facility] Comment on above: Result Comment: This specimen has been REJECTED due to Laboratory criteria: Quanity Not Sufficient. [facility] has been notified of need of recollection. 05/23/24645 Bonilla R Moore Performed By: #### L 501.9520, L501.5200, L500.4050, L501.2300, L501.4700 #### [facility] [address] [place], [address] Comprehensive Metabolic Profil Normal 136-[address] [facility] Comment on above: Result Comment: This specimen has been REJECTED due to Laboratory criteria: Quanity Not Sufficient. [facility] has been notified of need of recollection. 05/23/2446 Bonilla R Moore Performed By: #### L 501.9520, L501.5200, L500.4050, L501.2300, L501.4700 #### [facility] [address] [place], [address] Liver Profileon 05-23-2024 ALB Normal 3.2-5.[address] [facility] Comment on above: Result Comment: This specimen has been REJECTED due to Laboratory criteria: Quanity Not Sufficient. [facility] has been notified of need of recollection. 05/23/2446 Bonilla R Moore Performed By: #### L 501.9520, L501.5200, L500.4050, L501.2300, L501.4700 #### [facility] [address] [place], [address] ALK P Normal 45-[address] [facility] Comment on above: Result Comment: This specimen has been REJECTED due to Laboratory criteria: Quanity Not Sufficient. [facility] has been notified of need of recollection. 05/23/2446 Bonilla R Moore Performed By: #### L 501.9520, L501.5200, L500.4050, L501.2300, L501.4700 #### [facility] [address] [place], [address] ALT Normal 16-[address] [facility] Comment on above: Result Comment: This specimen has been REJECTED due to Laboratory criteria: Quanity Not Sufficient. [facility] has been notified of need of recollection. 05/23/2446 Bonilla R Moore Performed By: #### L 501.9520, L501.5200, L500.4050, L501.2300, L501.4700 #### [facility] [address] [place], [address] AST Normal 15-[address] [facility] Comment on above: Result Comment: This specimen has been REJECTED due to Laboratory criteria: Quanity Not Sufficient. [facility] has been notified of need of recollection. 05/23/2446 Bonilla R Moore Performed By: #### L 501.9520, L501.5200, L500.4050, L501.2300, L501.4700 #### [facility] [address] [place], [address] D BILI Normal 0.00-0.[address] [facility] Comment on above: Result Comment: This specimen has been REJECTED due to Laboratory criteria: Quanity Not Sufficient. [facility] has been notified of need of recollection. 05/23/2446 Bonilla R Moore Performed By: #### L 501.9520, L501.5200, L500.4050, L501.2300, L501.4700 #### [facility] [address] [place], [address] T BILI Normal 0.20-1.[address] [facility] Comment on above: Result Comment: This specimen has been REJECTED due to Laboratory criteria: Quanity Not Sufficient. [facility] been notified of need of recollection. 05/23/24645 Bonilla R Moore Performed By: #### L 501.9520, L501.5200, L500.4050, L501.2300, L501.4700 #### [facility] [address] [place], [address] T PROT Normal 6.4-8.[address] [facility] Comment on above: Result Comment: This specimen has been REJECTED due to Laboratory criteria: Quanity Not Sufficient. [facility] has been notified of need of recollection. 05/23/2446 Bonilla R Moore Performed By: #### L 501.9520, L501.5200, L500.4050, L501.2300, L501.4700 #### [facility] [address] [place], [address] Magnesiumon 05-23-2024 Magnesium [Mass/Vol] 1.7 mg/dL Normal 1.6-2.6 [facility] Comment on above: Order Comment: RED W. PREVIOUS SPECIMEN REJECTED DUE TO QNS. 05/23/2447 Bonilla Moore. Performed By: #### L 501.9520, L501.5200, L500.4050, L501.2300, L501.4700 #### [facility] [address] [place], [address] Phosphoruson 05-23-2024 Phosphate [Mass/Vol] 2.5 mg/dL Normal 2.5-4.9 [facility] Comment on above: Order Comment: RED W. PREVIOUS SPECIMEN REJECTED DUE TO QNS. 05/23/24646 Bonilla R Moore. Performed By: #### L 501.9520, L501.5200, L500.4050, L501.2300, L501.4700 #### [facility] [address] [place], [address] Prothrombin Time w/INRon INR Coag (PPP) [Relative time] 1.2 {INR} Normal [facility] Comment on above: Performed By: #### L 501.9520, L501.5200, L500.4050, L501.2300, L501.4700 #### [facility] [address] [place], [address] PT Coag (PPP) [Time] 14.9 s Normal 11.7-14.9 [facility] Comment on above: Performed By: #### L 501.9520, L501.5200, L500.4050, L501.2300, L501.4700 #### [facility] [address] [place], [address] Thyroid Stim Hormone (TSH)on 05-23-2024 TSH 0.273 uIU/mL Low 0.358-3.[address] [facility] Comment on above: Order Comment: REDRA W. PREVIOUS SPECIMEN REJECTED DUE TO QNS. 05/23/24 Bonilla R Moore. Performed By: #### L 501.9520, L501.5200, L500.4050, L501.2300, L501.4700 #### [facility] [address] [place], [address] Urinalysis, Completeon 05-23 RBC 0-5 SEEN Normal 0-[address] [facility] Comment on above: Order Comment: REDRA W. PREVIOUS SPECIMEN REJECTED DUE TO QNS. 05/23/24 Bonilla R Moore. Performed By: #### L 501.9520, L501.5200, L500.4050, L501.2300, L501.4700 #### [facility] [address] [place], [address] BACTERIA 1+ /hpf Normal None Seen [facility] Comment on above: Order Comment: REDRA W. PREVIOUS SPECIMEN REJECTED DUE TO QNS. 05/23/24 Bonilla R Moore. Performed By: #### L 501.9520, L501.5200, L500.4050, L501.2300, L501.4700 #### [facility] [address] [place], [address] WBC 25-50 SEEN Normal 0-[address] [facility] Comment on above: Order Comment: REDRA W. PREVIOUS SPECIMEN REJECTED DUE TO QNS. 05/23/24 Bonilla R Moore. Performed By: #### L 501.9520, L501.5200, L500.4050, L501.2300, L501.4700 #### [facility] [address] [place], [address] Mucus Ql (Urine sed) 1+ /hpf Normal [facility] Comment on above: Order Comment: REDRA W. PREVIOUS SPECIMEN REJECTED DUE TO QNS. 05/23/24 Bonilla R Moore. Performed By: #### L 501.9520, L501.5200, L500.4050, L501.2300, L501.4700 #### [facility] [address] [place], [address] EPI,SQUAMOUS 0 SEEN Normal 0-[address] [facility] Comment on above: Order Comment: REDRA W. PREVIOUS SPECIMEN REJECTED DUE TO QNS. 05/23/24 Bonilla R Moore. Performed By: #### L 501.9520, L501.5200, L500.4050, L501.2300, L501.4700 #### [facility] [address] [place], [address] 12 Lead EKGon 05-22-2024 12 Lead EKG [facility] [address] [place] [address] 12 Lead EKG 05/22/241951 MR#: [id number] Acct: [id number] Name: YU YOUNGER Rep #: [id number] : 1990 33 From: Bhavesh Castillo MD Attending Dr: Dr. Sorin Connell MD Status: ADM IN Ordering Dr: Paige Zamarripa Date: 05/22/24 Location: [facility] Sex: M C Admitted: 05/22/24 Test Reason : DYSRHYTHMIA Blood Pressure : */* mmHG Vent. Rate : 87 BPM Atrial Rate : 87 BPM P-R Int : 164 ms QRS Dur : 86 ms QT Int : 382 ms P-R-T Axes : 52 -20 49 degrees QTcB Int : 459 ms Normal sinus rhythm Nonspecific T wave abnormality Abnormal ECG Confirmed by Bhavesh Castillo ([id number]), video editor SHREYA REYES ([id number]) on 05/25/2024 6:46:00 AM Referred By: Confirmed By: Bhavesh Castillo 05/25/24645 Date Bhavesh Castillo MD CC: Dr. Sorin Connell MD; RUEL Bowers; No Primary Care Physician Signed Normal [facility] Alcohol, Blood (Medical)-Ser on 05-22-2024 SERUM ETOH 363.0 mg/dL Invalid Interpretation Code [facility] Comment on above: Result Comment: Crit ical Result(s) Called at: 21:01:15 05/22/2024 by: TEDDY SOLARES. Results read back by AFFOLTER. The serum:whole blood ethanol ratio is approximately 1.14 and varies slightly with hematocrit. Medical Alcohol reference interval and critical value in non-tolerant individuals; 50 - 100 Impairment 100 Intoxication 100 - 250 Severe Poisoning 250 - 400 Deep/possible fatal coma Performed By: #### L 501.9519, L501.5200, L500.4050, L501.2300, L501.4700 #### [facility] [address] [place], [address] Basic Metabolic Profile (BMP )on 05-22-2024 BUN/CRE 5.8 RATIO Low 10-[address] [facility] Comment on above: Performed By: #### L 501.9520, L501.5200, L500.4050, L501.2300, L501.4700 #### [facility] [address] [place], [address] CA,Total 8.8 mg/dL Normal 8.5-10.[address] [facility] Comment on above: Performed By: #### L 501.9520, L501.5200, L500.4050, L501.2300, L501.4700 #### [facility] [address] [place], [address] Chloride [Moles/Vol] 104 mmol/L Normal 98-107 [facility] Comment on above: Performed By: #### L 501.9520, L501.5200, L500.4050, L501.2300, L501.4700 #### [facility] [address] [place], [address] CO2 [Moles/Vol] 28.0 mmol/L Normal 21.0-32.[address] [facility] Comment on above: Performed By: #### L 501.9520, L501.5200, L500.4050, L501.2300, L501.4700 #### [facility] [address] [place], [address] Creatinine [Mass/Vol] 1.03 mg/dL Normal 0.70-1.30 [facility] Comment on above: Result Comment: The validity of the calculated GFR GFRAA in patients over 70 years has not been determined. Clinical correlation is essential. Performed By: #### L 501.9520, L501.5200, L500.4050, L501.2300, L501.4700 #### [facility] [address] [place], [address] ECRCL 98.69 ml/min Normal [facility] Comment on above: Performed By: #### L 501.9520, L501.5200, L500.4050, L501.2300, L501.4700 #### [facility] [address] [place], [address] EST GFR - AA 106 mL/min Normal >[address] [facility] Comment on above: Result Comment: Afri can Peruvian GFR Calc Performed By: #### L 501.9520, L501.5200, L500.4050, L501.2300, L501.4700 #### [facility] [address] [place], [address] GAP 10 Normal 5-[address] [facility] Comment on above: Performed By: #### L 501.9520, L501.5200, L500.4050, L501.2300, L501.4700 #### [facility] [address] [place], [address] GFR/1.73 sq M.predicted among non-blacks MDRD (S/P/Bld) [Vol rate/Area] 88 mL/min/{1.73_m2} Normal >[address] [facility] Comment on above: Result Comment: Non- GFR Calc Performed By: #### L 501.9520, L501.5200, L500.4050, L501.2300, L501.4700 #### [facility] [address] [place], [address] Glucose [Mass/Vol] 112 mg/dL High 74-106 [facility] Comment on above: Result Comment: Fast ing Glucose result from 100 to 125 mg/dL suggests IMPAIRED HOMEOSTASIS per A.D.A. criteria. Performed By: #### L 501.9520, L501.5200, L500.4050, L501.2300, L501.4700 #### [facility] [address] [place], [address] Potassium [Moles/Vol] 2.8 mmol/L Low 3.5-5.1 [facility] Comment on above: Performed By: #### L 501.9520, L501.5200, L500.4050, L501.2300, L501.4700 #### [facility] [address] [place], [address] Sodium [Moles/Vol] 141 mmol/L Normal 136-145 [facility] Comment on above: Performed By: #### L 501.9520, L501.5200, L500.4050, L501.2300, L501.4700 #### [facility] [address] [place], [address] Urea nitrogen [Mass/Vol] 6 mg/dL Low 7-[address] [facility] Comment on above: Performed By: #### L 501.9520, L501.5200, L500.4050, L501.2300, L501.4700 #### [facility] [address] [place], [address] CBC W/Diff, Automatedon 12-0 Absolute Lymph 2.41 X10 3/uL Normal 0.83-4.[address] [facility] Comment on above: Performed By: #### L 501.9520, L501.5200, L500.4050, L501.2300, L501.4700 #### [facility] [address] [place], [address] Absolute Neut 2.6 X10 3/uL Normal 2.0-7.[address] [facility] Comment on above: Performed By: #### L 501.9520, L501.5200, L500.4050, L501.2300, L501.4700 #### [facility] [address] [place], [address] Basophils/100 WBC (Bld) 0.2 % Normal 0-[address] [facility] Comment on above: Performed By: #### L 501.9520, L501.5200, L500.4050, L501.2300, L501.4700 #### [facility] [address] [place], [address] Eosinophils/100 WBC (Bld) 0.2 % Normal 0-[address] [facility] Comment on above: Performed By: #### L 501.9520, L501.5200, L500.4050, L501.2300, L501.4700 #### [facility] [address] [place], [address] Erythrocyte distribution width (RBC) [Ratio] 14.5 % Normal 11.6-14.[address] [facility] Comment on above: Performed By: #### L 501.9520, L501.5200, L500.4050, L501.2300, L501.4700 #### [facility] [address] [place], [address] Hematocrit (Bld) [Volume fraction] 43.2 % Normal 40-[address] [facility] Comment on above: Performed By: #### L 501.9520, L501.5200, L500.4050, L501.2300, L501.4700 #### [facility] [address] [place], [address] Hemoglobin (Bld) [Mass/Vol] 14.4 g/dL Normal 13.0-16.[address] [facility] Comment on above: Performed By: #### L 501.9520, L501.5200, L500.4050, L501.2300, L501.4700 #### [facility] [address] [place], [address] IG% 0.400 Normal 0.0-0.[address] [facility] Comment on above: Result Comment: IG% - Immature Granulocytes (promyelocytes, myelocytes and metamyelocytes) > 1% indicates that a LEFT SHIFT is Present. Performed By: #### L 501.9520, L501.5200, L500.4050, L501.2300, L501.4700 #### [facility] [address] [place], [address] Lymphocytes/100 WBC (Bld) 42.4 % High 19-[address] [facility] Comment on above: Performed By: #### L 501.9520, L501.5200, L500.4050, L501.2300, L501.4700 #### [facility] [address] [place], [address] MCH (RBC) [Entitic mass] 31.9 pg Normal 27.0-32.[address] [facility] Comment on above: Performed By: #### L 501.9520, L501.5200, L500.4050, L501.2300, L501.4700 #### [facility] [address] [place], [address] MCHC (RBC) [Mass/Vol] 33.3 g/dL Normal 32-36 [facility] Comment on above: Performed By: #### L 501.9520, L501.5200, L500.4050, L501.2300, L501.4700 #### [facility] [address] [place], [address] MCV (RBC) [Entitic vol] 95.8 fL High 80-[address] [facility] Comment on above: Performed By: #### L 501.9520, L501.5200, L500.4050, L501.2300, L501.4700 #### [facility] [address] [place], [address] Monocytes/100 WBC (Bld) 12.0 % High 0-[address] [facility] Comment on above: Performed By: #### L 501.9520, L501.5200, L500.4050, L501.2300, L501.4700 #### [facility] [address] [place], [address] Neutrophils/100 WBC (Bld) 44.8 % Low 47-[address] [facility] Comment on above: Performed By: #### L 501.9520, L501.5200, L500.4050, L501.2300, L501.4700 #### [facility] [address] [place], [address] Nucleated RBC (Bld) [#/Vol] 0 10*3/uL Normal 0-[address] [facility] Comment on above: Performed By: #### L 501.9520, L501.5200, L500.4050, L501.2300, L501.4700 #### [facility] [address] [place], [address] Platelet mean volume (Bld) [Entitic vol] 9.4 fL Normal 6.2-12.[address] [facility] Comment on above: Performed By: #### L 501.9520, L501.5200, L500.4050, L501.2300, L501.4700 #### [facility] [address] [place], [address] Platelets (Bld) [#/Vol] 144 10*3/uL Low 150-[address] [facility] Comment on above: Performed By: #### L 501.9520, L501.5200, L500.4050, L501.2300, L501.4700 #### [facility] [address] [place], [address] RBC (Bld) [#/Vol] 4.51 10*6/uL Low 4.6-6.2 [facility] Comment on above: Performed By: #### L 501.9520, L501.5200, L500.4050, L501.2300, L501.4700 #### [facility] [address] [place], [address] RDW SD 49.5 fl High 35.1-43.[address] [facility] Comment on above: Performed By: #### L 501.9520, L501.5200, L500.4050, L501.2300, L501.4700 #### [facility] [address] [place], [address] WBC (Bld) [#/Vol] 5.7 10*3/uL Normal 4.4-11.0 [facility] Comment on above: Performed By: #### L 501.9520, L501.5200, L500.4050, L501.2300, L501.4700 #### [facility] [address] [place], [address] Comprehensive Metabolic Prof [facility] 05-22-2024 Albumin [Mass/Vol] 4.2 g/dL Normal 3.2-5.0 [facility] Comment on above: Performed By: #### L 501.9520, L501.5200, L500.4050, L501.2300, L501.4700 #### [facility] [address] [place], [address] Albumin/Globulin [Mass ratio] 0.9 {ratio} Normal 0.9-2.[address] [facility] Comment on above: Performed By: #### L 501.9520, L501.5200, L500.4050, L501.2300, L501.4700 #### [facility] [address] [place], [address] ALK P 243 U/L High 45-[address] [facility] Comment on above: Performed By: #### L 501.9520, L501.5200, L500.4050, L501.2300, L501.4700 #### [facility] [address] [place], [address] ALT [Catalytic activity/Vol] 133 U/L High 16-[address] [facility] Comment on above: Performed By: #### L 501.9520, L501.5200, L500.4050, L501.2300, L501.4700 #### [facility] [address] [place], [address] AST [Catalytic activity/Vol] 290 U/L High 15-[address] [facility] Comment on above: Performed By: #### L 501.9520, L501.5200, L500.4050, L501.2300, L501.4700 #### [facility] [address] [place], [address] Bilirubin [Mass/Vol] 1.00 mg/dL Normal 0.20-1.00 [facility] Comment on above: Result Comment: For patients on eltrombopag therapy, use of Dimension [place] TBIL is not recommended. Performed By: #### L 501.9520, L501.5200, L500.4050, L501.2300, L501.4700 #### [facility] [address] [place], [address] Globulin (S) [Mass/Vol] 4.7 g/dL High 2.2-4.[address] [facility] Comment on above: Performed By: #### L 501.9520, L501.5200, L500.4050, L501.2300, L501.4700 #### [facility] [address] [place], [address] T PROT 8.9 g/dL High 6.4-8.[address] [facility] Comment on above: Performed By: #### L 501.9520, L501.5200, L500.4050, L501.2300, L501.4700 #### [facility] [address] [place], [address] Emergency Department Summary on 05-22-[address] [facility] Medical Records Department [address] [place] [address] Emergency Department Summary 05/22/24 MR#: [id number] Acct: [id number] Name: YU YOUNGER Rep #: [id number] : 1990 33 From: Drake Rader PCP: Care Physician,No Primary Status:ADM IN Location: [address] History of Present Illness Chief Complaint: Substance Abuse Narrative Narrative: 33-year-old male with past medical history of alcoholism, pancreatitis presents requesting alcohol detox. He states he drinks about 12 pints of 13% alcohol per day and his last drink was 2 hours ago. He has been heavily drinking since November 2023. He had his first episode of pancreatitis 2 weeks ago and was admitted to [facility] for several days. Since then his abdominal pain has decreased. He vomited once this morning but denies hematemesis. He states his stool occasionally looks dark but he thinks it is from Pepto-Bismol. He has no history of withdrawal seizures. He takes methadone. [facility] Medical History (Updated 05/22/24 @ 23:[address] Drake Mccartney DO) Hx of renal calculi Pancreatitis Denies previous medical history Home Medications ???Medication ???Instructions ???Recorded ???Last Taken ???Type methadone 10 mg tablet 100 mg PO DAILY 05/22/24 Unknown History Allergy/AdvReac Type Severity Reaction Status Date / Time levetiracetam (From [facility]) Allergy HIVES Verified 05/22/24 14:54 Surgical History Hx of tonsillectomy Social History Smoking Status: Current every day smoker tobacco type: e-cigarettes ROS ROS ED ROS Narrative Constitutional: Negative for fever, chills, malaise. CVS: Negative for chest pain. Respiratory: Negative for shortness of breath. GI: Positive for abdominal pain, nausea, vomiting. : Negative for dysuria. EXAM Physical Exam Narrative Exam Narrative: CONST: Patient sitting in no acute distress. EYES: Normal inspection. NECK: Normal inspection. RESP: No respiratory distress, CTAB. CVS: Regular rate and rhythm, no murmur, no gallop. ABD: Soft and nontender, no guarding or rebound, nondistended. SKIN: Color normal, no rash, warm, dry, intact. EXTREMITIES: Normal appearance, no pedal edema. NEURO: Alert and answering questions appropriately. PSYCH: Normal affect. Const Vital Signs: 05/22/24 14:53 Temperature 98.2 F Temperature Source Oral Pulse Rate 99 Respiratory Rate 16 Blood Pressure 112/82 H Blood Pressure Mean 92 Pulse Ox 100 Oxygen Delivery Method Room Air Physical Exam Const Vital Signs: 05/22/24 14:53 Temperature 98.2 F Temperature Source Oral Pulse Rate 99 Respiratory Rate 16 Blood Pressure 112/82 H Blood Pressure Mean 92 Pulse Ox 100 Oxygen Delivery Method Room Air [facility] Narrative Medical decision making narrative: Patient is here for alcohol detox. Last drink 2 hours ago. Currently asymptomatic, appears well and nontoxic, hemodynamically stable. Labs notable for hypokalemia 2.8 and elevated LFTs. Lipase minimally elevated at 79. He has a recent bout of pancreatitis 2 weeks ago and states pain has been improving so this likely trending down. Alcohol level is 363. Case was discussed with the hospitalist for admission. He was given p.o. potassium and his home dose of methadone in the ED and the hospitalist will order detox meds. Lab Data Attestation: I reviewed the patient's lab results. Labs: Laboratory Results - last 24 hr 05/22/24 18:13 Urine Opiates Screen NEGATIVE Urine Methadone Screen POSITIVE H Ur Barbiturates Screen POSITIVE H Ur Phencyclidine Scrn NEGATIVE Ur Amphetamines Screen NEGATIVE MDMA (Ecstasy) Screen NEGATIVE U Benzodiazepines Scrn NEGATIVE Urine Cocaine Screen NEGATIVE U Cannabinoids Screen POSITIVE H Ur Drug Screen Comment EKG Initial EKG: Attestation: I personally reviewed and interpreted this EKG as follows: Interpretation: Sinus Rhythm and No Acute Injury Pattern Comments: Normal sinus rhythm 87 bpm Nonspecific T wave abnormality QTc 459 ms [facility] Narrative Medical decision making narrative: Patient is here for alcohol detox. Last drink 2 hours ago. Currently asymptomatic, appears well and nontoxic, hemodynamically stable. Labs notable for hypokalemia 2.8 and elevated LFTs. Lipase minimally elevated at 79. He has a recent bout of pancreatitis 2 weeks ago and states pain has been improving so this likely trending down. Alcohol level is 363. Case was discussed with the hospitalist for admission. He was given p.o. potassium and his home dose of methadone in the ED and the hospitalist will order detox meds. Attending note: I have personally performed a face to face asse (more content not included)... Normal [facility] H AND P Exam - Hospitaliston 05-22-2024 H&P Exam - Hospitalist [facility] Medical Records Department [address] [place] [address] H P Exam - Hospitalist 05/22/24 1950 MR#: [id number] Acct: [id number] Name: YU YOUNGER Rep #: [id number] : 1990 33 From: Phoenix Ramsey DO PCP: Care Physician,No Primary Status:ADM IN Location: [place] [address] HPI - General General Date of Admission: 05/22/24 Date of Service: 05/22/24 Chief Complaint: Wants Help with EtOH Detox. HPI Narrative YU YOUNGER, is a 33 M with a past medical history of tobacco abuse, history of heroin abuse (IV and snorting); on methadone 100 mg p.o. daily followed by the [facility], history of cannabis abuse, chronic alcohol abuse; with patient admitting to drinking 12 pints of 13% alcohol daily, history of admission here for detoxification from heroin and alcohol (2020), history of alcoholic pancreatitis, history of depression and anxiety, listed allergy to levetiracetam; (hives), history of renal calculi and history of alcoholic pancreatitis with admission to hospital in [facility] for several days 2 weeks ago who presents to [facility] ER complaining of wanting help with alcohol detoxification. Mr. Younger reports he has been heavily drinking since November 2023 and he has experienced worsening abdominal pain since his recent discharge from [facility] due to continued alcohol abuse with his last drink taken approximately 2 hours prior to arrival. He admits to associated abdominal pain, nausea and vomiting once this morning with bilious emesis and no signs of gross bleeding. He states his stool occasionally looks dark but he thinks this is secondary to Pepto-Bismol he uses as needed for dyspepsia. He denies a history of alcohol withdrawal seizures - but he is also noted to have an allergy to levetiracetam. In the ER he was diagnosed with acute alcohol intoxication with BRIJESH of 363 mg/dL with impending alcohol withdrawal in the setting of chronic alcohol abuse and laboratory evidence of alcoholic hepatitis with AST of 286 U/L, ALT of 133 U/L and alkaline phosphatase of 246 U/L hypokalemia of 2.8 mmol/L present on admission along with urine drug screen positive for methadone, barbiturates and cannabis with a slightly elevated lipase of 79 U/L and moderate thrombocytopenia of 144K present on admission and he was then admitted to the PCU for ongoing care for stay that is expected to extend beyond 2 midnights. [facility] Medical History Hx of renal calculi Pancreatitis Denies previous medical history Home Medications ???Medication ???Instructions ???Recorded ???Last Taken ???Type methadone 10 mg tablet 100 mg PO DAILY 05/22/24 Unknown History Allergy/AdvReac Type Severity Reaction Status Date / Time levetiracetam (From [facility]) Allergy HIVES Verified 05/22/24 14:54 Surgical History Hx of tonsillectomy Social History Smoking Status: Current every day smoker tobacco type: e-cigarettes ROS ROS Narrative Review of systems: Constitutional: Patient denies fever or chills. Eyes: Patient denies visual changes or discharge from eyes. ENT: Patient denies runny nose, sore throat or ear pain. Resp: Patient denies shortness of breath or cough. CV: Patient denies chest pain, palpitations or heart racing. GI: Patient admits to generalized abdominal pain with nausea and bilious emesis as per HPI. He denies diarrhea or constipation. : Patient denies dysuria or hematuria. MSK: Patient denies arthralgias or myalgias. Skin: Patient denies rash, abscess or jaundice. Psych: Patient denies symptoms of uncontrolled depression or anxiety. Neuro: Patient is noted to be intoxicated but he denies headache, paresthesias or focal neurologic deficits. Allergy: Patient denies lip swelling, tongue swelling or urticaria. Hematology: Patient denies easy bleeding or easy bruisability though he does admit to dark stools that were attributed to as needed use of Pepto-Bismol as per HPI. Endocrinology: Patient denies polyuria, polydipsia or polyphagia. 14 point review of systems otherwise negative save for positives noted above in HPI. Vital Signs Vital Signs Vital Signs: 05/22/24 14:53 Temperature 98.2 F Temperature Source Oral Pulse Rate 99 Respiratory Rate 16 Blood Pressure 112/82 H Blood Pressure Mean 92 Pulse Ox 100 Oxygen Delivery Method Room Air Weight Weight: 151 lb 8 oz Body Mass Index (BMI) 23.0 Physical Exam Const alert, oriented x3, no apparent distress, average body habitus and healthy appearing Constitutional Narrative: Patient is intoxicated and appears well. General Appearance: cooperative HEENT normocephal (more content not included)... Normal [facility] Lipaseon 05-22-2024 Lipase [Catalytic activity/Vol] 79 U/L High 13-[address] [facility] Comment on above: Result Comment: Lisbeth stone note: LIPASE revised reference range effective 22. New Lipase methodology. Expected to produce lower values than the previous assay method. NEW Reference Range: 13 - 75 U/L Performed By: #### L 501.9520, L501.5200, L500.4050, L501.2300, L501.4700 #### [facility] [address] [place], [address] Liver Profileon 05-22-2024 Albumin [Mass/Vol] 4.3 g/dL Normal 3.2-5.0 [facility] Comment on above: Performed By: #### L [id number], L501.5200, L500.4050, L501.2300, L501.4700 #### [facility] [address] [place], [address] ALK P 246 U/L High 45-[address] [facility] Comment on above: Performed By: #### L [id number], L501.5200, L500.4050, L501.2300, L501.4700 #### [facility] [address] [place], [address] ALT [Catalytic activity/Vol] 133 U/L High 16-[address] [facility] Comment on above: Performed By: #### L [id number], L501.5200, L500.4050, L501.2300, L501.4700 #### [facility] [address] [place], [address] AST [Catalytic activity/Vol] 286 U/L High 15-[address] [facility] Comment on above: Performed By: #### L [id number], L501.5200, L500.4050, L501.2300, L501.4700 #### [facility] [address] [place], [address] Bilirubin [Mass/Vol] 1.00 mg/dL Normal 0.20-1.00 [facility] Comment on above: Result Comment: For patients on eltrombopag therapy, use of Dimension [place] TBIL is not recommended. Performed By: #### L [id number], L501.5200, L500.4050, L501.2300, L501.4700 #### [facility] [address] [place], [address] Bilirubin.direct [Mass/Vol] 0.61 mg/dL High 0.00-0.[address] [facility] Comment on above: Performed By: #### L [id number], L501.5200, L500.4050, L501.2300, L501.4700 #### [facility] [address] [place], [address] Globulin (S) [Mass/Vol] 4.6 g/dL High 2.2-4.[address] [facility] Comment on above: Performed By: #### L [id number], L501.5200, L500.4050, L501.2300, L501.4700 #### [facility] [address] [place], [address] T PROT 8.9 g/dL High 6.4-8.[address] [facility] Comment on above: Performed By: #### L [id number], L501.5200, L500.4050, L501.2300, L501.4700 #### [facility] [address] [place], [address] Urine Drug Screen (VISTA)on 05-22-2024 AMPHETAMINES Negative Normal <1000 ng/mL [facility] Comment on above: Performed By: #### L [id number], L501.5200, L500.4050, L501.2300, L501.4700 #### [facility] [address] [place], [address] BARBITIURATES Positive Abnormal < 200 ng/mL [facility] Comment on above: Performed By: #### L [id number], L501.5200, L500.4050, L501.2300, L501.4700 #### [facility] [address] [place], [address] BENZODIAZIPINE Negative Normal < 200 ng/mL [facility] Comment on above: Performed By: #### L 501.9520, L501.5200, L500.4050, L501.2300, L501.4700 #### [facility] [address] [place], [place], [facility] COCAINE Negative Normal < 300 ng/mL [facility] Comment on above: Performed By: #### L 501.9520, L501.5200, L500.4050, L501.2300, L501.4700 #### [facility] [address] [place], [address] ECSTACY Negative Normal < 500 ng/mL [facility] Comment on above: Performed By: #### L 501.9520, L501.5200, L500.4050, L501.2300, L501.4700 #### [facility] [address] [place], [address] METHADONE Positive Abnormal < 300 ng/mL [facility] Comment on above: Performed By: #### L 501.9520, L501.5200, L500.4050, L501.2300, L501.4700 #### [facility] [address] [place], [address] OPIATES Negative Normal < 300 ng/mL [facility] Comment on above: Performed By: #### L 501.9520, L501.5200, L500.4050, L501.2300, L501.4700 #### [facility] [address] [place], [address] PCP Negative Normal < 25 ng/mL [facility] Comment on above: Performed By: #### L 501.9520, L501.5200, L500.4050, L501.2300, L501.4700 #### [facility] [address] [place], [address] THC Positive Abnormal < 50 ng/mL [facility] Comment on above: Performed By: #### L 501.9520, L501.5200, L500.4050, L501.2300, L501.4700 #### [facility] [address] [place], [address] VISTA UDS PH [address] [facility] Comment on above: Performed By: #### L 501.9520, L501.5200, L500.4050, L501.2300, L501.4700 #### [facility] [address] [place], [address] BASIC METABOLIC PANELon 11-0 Anion gap [Moles/Vol] 16 mmol/L Normal 10-20 [facility] Comment on above: Order Comment: [facility] Services has implemented the eGFR calculation approach that does not have a coefficient for race that conforms to the NKF-ASN Task Force Recommendations. Performed By: #### L [id number] #### [facility] [address] [place] [address] Dallin Donahue M.D. [id number] Calcium [Mass/Vol] 9.2 mg/dL Normal 8.4-10.2 [facility] Comment on above: Order Comment: [facility] [place] Laboratory Services has implemented the eGFR calculation approach that does not have a coefficient for race that conforms to the NKF-ASN Task Force Recommendations. Performed By: #### L [id number] #### [facility] [address] [place] [address] Dallin Donahue M.D. [id number] Chloride [Moles/Vol] 96 mmol/L Low 98-108 [facility] Comment on above: Order Comment: [facility] Laboratory Services has implemented the eGFR calculation approach that does not have a coefficient for race that conforms to the NKF-ASN Task Force Recommendations. Performed By: #### L [id number] #### [facility] [address] [place] [address] Dallin Donahue M.D. [id number] Creatinine [Mass/Vol] 0.86 mg/dL Normal 0.50-1.30 [facility] Comment on above: Order Comment: [facility] Laboratory Services has implemented the eGFR calculation approach that does not have a coefficient for race that conforms to the NKF-ASN Task Force Recommendations. Performed By: #### L [id number] #### [facility] [address] [place] [address] Dallin Donahue M.D. [id number] EGFR 117 mL/min/1.73 m2 Normal >=60 [facility] Comment on above: Order Comment: [facility] Services has implemented the eGFR calculation approach that does not have a coefficient for race that conforms to the NKF-ASN Task Force Recommendations. Result Comment: Karoline mated GFR was calculated using the 2020 CKD-EPI creatinine equation. Performed By: #### L [id number] #### [facility] [address] [place] [address] Dallin Donahue M.D. [id number] Glucose [Mass/Vol] 87 mg/dL Normal 65-99 [facility] Comment on above: Order Comment: [facility] Services has implemented the eGFR calculation approach that does not have a coefficient for race that conforms to the NKF-ASN Task Force Recommendations. Performed By: #### L [id number] #### [facility] [address] [place] [address] Dallin Donahue M.D. [id number] HCO3 (Bld) [Moles/Vol] 24 mmol/L Normal 21-32 [facility] Comment on above: Order Comment: [facility] Laboratory Services has implemented the eGFR calculation approach that does not have a coefficient for race that conforms to the NKF-ASN Task Force Recommendations. Performed By: #### L [id number] #### [facility] [address] [place] [address] Dallin Donahue M.D. [id number] Potassium [Moles/Vol] 4.4 mmol/L Normal 3.5-5.1 [facility] Comment on above: Order Comment: [facility] Services has implemented the eGFR calculation approach that does not have a coefficient for race that conforms to the NKF-ASN Task Force Recommendations. Result Comment: Slig htly Hemolyzed Performed By: #### L [id number] #### [facility] [address] [place] [address] Dallin Donahue M.D. [id number] Sodium [Moles/Vol] 132 mmol/L Low 135-145 [facility] Comment on above: Order Comment: [facility] Services has implemented the eGFR calculation approach that does not have a coefficient for race that conforms to the NKF-ASN Task Force Recommendations. Performed By: #### L [id number] #### [facility] [address] [place] [address] Dallin Donahue M.D. [id number] Urea nitrogen [Mass/Vol] 7 mg/dL Low 8-25 [facility] Comment on above: Order Comment: [facility] Laboratory Services has implemented the eGFR calculation approach that does not have a coefficient for race that conforms to the NKF-ASN Task Force Recommendations. Performed By: #### L [id number] #### [facility] [address] [place], [place] [address] Dallin Donahue M.D. [id number] Urea nitrogen/Creatinine [Mass ratio] 8.1 mg/mg Low 10.0-20.0 [facility] Comment on above: Order Comment: [facility] Services has implemented the eGFR calculation approach that does not have a coefficient for race that conforms to the NKF-ASN Task Force Recommendations. Performed By: #### L [id number] #### [facility] [address] [place], [place] [address] Dallin Donahue M.D. [id number] Basic metabolic 2000 panelon 04-23-2024 Anion gap [Moles/Vol] 16 mmol/L 10 - 2 0 mmol/L [facility] Calcium [Mass/Vol] 9.2 mg/dL 8.4 - 10. 2 mg/dL [facility] Chloride [Moles/Vol] 96 mmol/L Low 98 - 10 8 mmol/L [facility] Creatinine [Mass/Vol] 0.86 mg/dL 0.50 - 1.30 mg/dL [facility] GFR/1.73 sq M.predicted CKD-EPI (S/P/Bld) [Vol rate/Area] 117 - PINF [facility] Comment on above: Estimated GFR was ca lculated using the 2020 CKD-EPI creatinine equation. Glucose [Mass/Vol] 87 mg/dL 65 - 99 mg/dL [facility] HCO3 [Moles/Vol] 24 mmol/L 21 - 32 mmol/L [facility] Potassium [Moles/Vol] 4.4 mmol/L 3.5 - 5.1 mmol/L [facility] Comment on above: Slightly Hemolyzed Sodium [Moles/Vol] 132 mmol/L Low 135 - 145 mmol/L [facility] Urea nitrogen [Mass/Vol] 7 mg/dL Low 8 - 25 mg/dL [facility] Urea nitrogen/Creatinine [Mass ratio] 8.1 mg/mg Low 10.0 - 20.0 [facility] has implemented the eGFR calculation approach that does not have a coefficient for race that conforms to the NKF-ASN Task Force Recommendations. [facility] CBC Auto Differentialon -0 Basophils (Bld) [#/Vol] 0.02 10*3/uL [facility] Basophils/100 WBC (Bld) 0.3 % [facility] Eosinophils (Bld) [#/Vol] 0.02 10*3/uL [facility] Eosinophils/100 WBC (Bld) 0.3 % [facility] Erythrocyte distribution width (RBC) [Entitic vol] 13.2 % 11.6 - 14.8 % [facility] Hematocrit (Bld) [Volume fraction] 44.9 % 41.0 - 53.0 % [facility] Hemoglobin (Bld) [Mass/Vol] 15.3 g/dL 13.5 - 17.5 g/dL [facility] Immature granulocytes (Bld) [#/Vol] 0.07 10*3/uL [facility] Immature granulocytes/100 WBC (Bld) 0.9 % [facility] Comment on above: The IG parameter is the percentage of metamyelocytes, myelocytes and promyelocytes. An immature granulocyte count (IG) of 1% or more suggests the possibility of infection, an IG count of 3% is very likely related to an infection. Interpretation and review of laboratory results Abnormal [facility] Lymphocytes (Bld) [#/Vol] 1.41 10*3/uL [facility] Lymphocytes/100 WBC (Bld) 18 % [facility] MCH (RBC) [Entitic mass] 33 pg 26.0 - 34.0 pg [facility] MCHC (RBC) [Mass/Vol] 34.1 g/dL 31.0 - 37.0 g/dL [facility] MCV (RBC) [Entitic vol] 96.8 fL 80.0 - 100.0 fL [facility] Monocytes (Bld) [#/Vol] 1.03 10*3/uL High [facility] Monocytes/100 WBC (Bld) 13.2 % [facility] Neutrophils (Bld) [#/Vol] 5.28 10*3/uL [facility] Neutrophils/100 WBC (Bld) 67.3 % [facility] Nucleated RBC (Bld) [#/Vol] 0 10*3/uL [facility] Nucleated RBC/100 WBC (Bld) [Ratio] 0 % [facility] Platelet mean volume (Bld) [Entitic vol] 10.3 fL 9.4 - 12.4 fL [facility] Platelets (Bld) [#/Vol] 163 10*3/uL [facility] RBC (Bld) [#/Vol] 4.64 10*6/uL [facility] WBC (Bld) [#/Vol] 7.83 10*3/uL [facility] CBC WITH AUTO DIFFERENTIALon 04-23-2024 AUTO NRBC 0.0 % Normal [facility] Comment on above: Performed By: #### L [id number] #### LAB [address] [place] [address] Dallin Donahue M.D. [id number] AUTO NRBC ABS COUNT 0.00 K/mcL Normal 0.00-0.00 [facility] Comment on above: Performed By: #### L [id number] #### LAB [address] [place] [address] Dallin Donahue M.D. [id number] BASOPHILS ABSOLUTE COUNT 0.02 K/mcL Normal 0.00-0.30 [facility] Comment on above: Performed By: #### L [id number] #### LAB [address] [place] [address] Dallin Donahue M.D. [id number] Basophils/100 WBC (Bld) 0.3 % [facility] Comment on above: Performed By: #### L [id number] #### LAB [address] [place] [address] Dallin Donahue M.D. [id number] Eosinophils (Bld) [#/Vol] 0.02 10*3/uL Normal 0.00-0.50 [facility] Comment on above: Performed By: #### L [id number] #### LAB [address] [place] [address] Dallin Donahue M.D. [id number] Eosinophils/100 WBC (Bld) 0.3 % [facility] Comment on above: Performed By: #### L [id number] #### LAB [address] [place], [place] [address] Dallin Donahue M.D. [id number] Erythrocyte distribution width (RBC) [Ratio] 13.2 % Normal 11.6-14.8 [facility] Comment on above: Performed By: #### L [id number] #### LAB [address] [address] Dallin Donahue M.D. [id number] Hematocrit (Bld) [Volume fraction] 44.9 % Normal 41.0-53.0 [facility] Comment on above: Performed By: #### L [id number] #### LAB [address] [address] Dallin Donahue M.D. [id number] Hemoglobin (Bld) [Mass/Vol] 15.3 g/dL Normal 13.5-17.5 [facility] Comment on above: Performed By: #### L [id number] #### LAB [address] [address] Dallin Donahue M.D. [id number] IG ABSOLUTE 0.07 K/mcL Normal 0.00-0.30 [facility] Comment on above: Performed By: #### L [id number] #### LAB [address] [place] [address] Dallin Donahue M.D. [id number] IG PERCENT 0.90 % Normal [facility] Comment on above: Result Comment: The IG parameter is the percentage of metamyelocytes, myelocytes and promyelocytes. An immature granulocyte count (IG) of 1% or more suggests the possibility of infection, an IG count of 3% is very likely related to an infection. Performed By: #### L [id number] #### LAB [address] [address] Dallin Donahue M.D. [id number] Lymphocytes (Bld) [#/Vol] 1.41 10*3/uL Normal 0.90-4.00 [facility] Comment on above: Performed By: #### L [id number] #### LAB [address] [place] [address] Dallin Donahue M.D. [id number] Lymphocytes/100 WBC (Bld) 18.0 % [facility] Comment on above: Performed By: #### L [id number] #### LAB [address] [address] Dallin Donahue M.D. [id number] MCH (RBC) [Entitic mass] 33.0 pg Normal 26.0-34.0 [facility] Comment on above: Performed By: #### L [id number] #### LAB [address] [address] Dallin Donahue M.D. [id number] MCV (RBC) [Entitic vol] 96.8 fL Normal 80.0-100.0 [facility] Comment on above: Performed By: #### L [id number] #### LAB [address] [address] Dallin Donahue M.D. [id number] MEAN CORPUSCULAR HEMOGLOBIN CONC 34.1 g/dL Normal 31.0-37.0 [facility] Comment on above: Performed By: #### L [id number] #### LAB [address] [address] Dallin Donahue M.D. [id number] Monocytes (Bld) [#/Vol] 1.03 10*3/uL High 0.30-0.90 [facility] Comment on above: Performed By: #### L [id number] #### LAB [address] [address] Dallin Donahue M.D. [id number] Monocytes/100 WBC (Bld) 13.2 % Normal [facility] Comment on above: Performed By: #### L [id number] #### LAB [address] [address] Dallin Donahue M.D. [id number] NEUTROPHILS ABSOLUTE COUNT 5.28 K/mcL Normal 1.70-7.00 [facility] Comment on above: Performed By: #### L [id number] #### LAB [address] [address] Dallin Donahue M.D. [id number] Neutrophils/100 WBC (Bld) 67.3 % Normal [facility] Comment on above: Performed By: #### L [id number] #### MH LAB [address] [address] Dallin Donahue M.D. [id number] Platelet mean volume (Bld) [Entitic vol] 10.3 fL Normal 9.4-12.4 [facility] Comment on above: Performed By: #### L [id number] #### LAB [address] [address] Dallin Donahue M.D. [id number] Platelets (Bld) [#/Vol] 163 10*3/uL Normal 150-400 [facility] Comment on above: Performed By: #### L [id number] #### LAB [address] [address] Dallin Donahue M.D. [id number] RBC (Bld) [#/Vol] 4.64 10*6/uL Normal 4.50-5.90 [facility] Comment on above: Performed By: #### L [id number] #### LAB [address] [address] Dallin Donahue M.D. [id number] WBC (Bld) [#/Vol] 7.83 10*3/uL Normal 4.50-11.00 [facility] Comment on above: Performed By: #### L [id number] #### LAB [address] [address] Dallin Donahue M.D. [id number] HEPATIC FUNCTION PANELon Albumin [Mass/Vol] 3.8 g/dL Normal 3.2-5.2 [facility] Comment on above: Performed By: #### L [id number] #### LAB [address] [address] Dallin Donahue M.D. [id number] ALP [Catalytic activity/Vol] 174 U/L High 40-140 [facility] Comment on above: Performed By: #### L [id number] #### LAB [address] [address] Dallin Donahue M.D. [id number] ALT [Catalytic activity/Vol] 35 U/L Normal 0-50 U/L [facility] Comment on above: Performed By: #### L [id number] #### LAB [address] [place], [place] [address] Dallin Donahue M.D. [id number] AST [Catalytic activity/Vol] 56 U/L High 0-50 U/L [facility] Comment on above: Result Comment: Slig htly Hemolyzed Performed By: #### L [id number] #### LAB [address] [address] Dallin Donahue M.D. [id number] Bilirubin [Mass/Vol] 1.1 mg/dL Normal 0.0-1.3 [facility] Comment on above: Performed By: #### L [id number] #### LAB [address] [address] Dallin Donahue M.D. [id number] Bilirubin.indirect [Mass/Vol] 0.4 mg/dL Normal 0.0-0.4 [facility] Comment on above: Result Comment: Slig htly Hemolyzed Performed By: #### L [id number] #### LAB [address] [address] Dallin Donahue M.D. [id number] Protein [Mass/Vol] 7.9 g/dL Normal 6.0-8.0 [facility] Comment on above: Performed By: #### L [id number] #### LAB [address] [address] Dallin Donahue M.D. [id number] Hepatic function 2000 panelo n 04-23-2024 Albumin [Mass/Vol] 3.8 g/dL 3.2 - 5.2 g/dL [facility] ALP [Catalytic activity/Vol] 174 U/L High 40 - 140 U/L [facility] ALT [Catalytic activity/Vol] 35 U/L 0-50 U/L [facility] AST [Catalytic activity/Vol] 56 U/L High 0-50 U/L [facility] Comment on above: Slightly Hemolyzed Bilirubin [Mass/Vol] 1.1 mg/dL 0.0 - 1 .3 mg/dL [facility] Bilirubin.conjugated [Mass/Vol] 0.4 mg/dL 0.0 - 0.4 mg/dL [facility] Comment on above: Slightly Hemolyzed Interpretation and review of laboratory results Abnormal [facility] Protein [Mass/Vol] 7.9 g/dL 6.0 - 8.0 g/dL [facility] MAGNESIUM LEVELon 04-23-2024 Magnesium [Mass/Vol] 1.7 mg/dL Normal 1.6-2.4 [facility] Comment on above: Performed By: #### L [id number] #### MH LAB [address] [place], [place] [address] Dallin Donahue M.D. [id number] Magnesium Levelon 04-23-2024 Magnesium [Mass/Vol] 1.7 mg/dL 1.6 - 2 .4 mg/dL [facility] Magnesium [Mass/Vol]on 04-23 Interpretation and review of laboratory results Normal [facility] No Panel Informationon 04-23 Interpretation and review of laboratory results Abnormal [facility] PHOSPHORUSon 04-23-2024 Phosphate [Mass/Vol] 1.4 mg/dL Low 2.7-4.5 [facility] Comment on above: Performed By: #### [id number] #### MH LAB [address] [place], [place] [address] Dallin Donahue M.D. [id number] Phosphoruson 04-23-2024 Phosphate [Mass/Vol] 1.4 mg/dL Low 2.7 - 4 .5 mg/dL [facility] BASIC METABOLIC PANELon Anion gap [Moles/Vol] 14 mmol/L Normal 10-20 [facility] Comment on above: Order Comment: [facility] Services has implemented the eGFR calculation approach that does not have a coefficient for race that conforms to the NKF-ASN Task Force Recommendations. Performed By: #### L [id number] #### MH LAB [address] [place], [place] [address] Dallin Donahue M.D. [id number] Calcium [Mass/Vol] 8.0 mg/dL Low 8.4-10.2 [facility] Comment on above: Order Comment: [facility] has implemented the eGFR calculation approach that does not have a coefficient for race that conforms to the NKF-ASN Task Force Recommendations. Performed By: #### L [id number] #### MH LAB [address] [address] Dallin Donahue M.D. [id number] Chloride [Moles/Vol] 99 mmol/L Normal 98-108 [facility] Comment on above: Order Comment: [facility] Laboratory [facility] has implemented the eGFR calculation approach that does not have a coefficient for race that conforms to the NKF-ASN Task Force Recommendations. Performed By: #### L [id number] #### MH LAB [address] [address] Dallin Donauhe M.D. [id number] Creatinine [Mass/Vol] 0.75 mg/dL Normal 0.50-1.30 [facility] Comment on above: Order Comment: [facility] Laboratory [facility] has implemented the eGFR calculation approach that does not have a coefficient for race that conforms to the NKF-ASN Task Force Recommendations. Performed By: #### L [id number] #### MH LAB [address] [address] Dallin Donahue M.D. [id number] EGFR 122 mL/min/1.73 m2 Normal >=60 [facility] Comment on above: Order Comment: [facility] Laboratory [facility] has implemented the eGFR calculation approach that does not have a coefficient for race that conforms to the NKF-ASN Task Force Recommendations. Result Comment: Karoline mated GFR was calculated using the 2020 CKD-EPI creatinine equation. Performed By: #### L [id number] #### MH LAB [address] [address] Dallin Donahue M.D. [id number] Glucose [Mass/Vol] 90 mg/dL Normal 65-99 [facility] Comment on above: Order Comment: [facility] Services has implemented the eGFR calculation approach that does not have a coefficient for race that conforms to the NKF-ASN Task Force Recommendations. Performed By: #### L [id number] #### MH LAB [address] [address] Dallin Donahue M.D. [id number] HCO3 (Bld) [Moles/Vol] 22 mmol/L Normal 21-32 [facility] Comment on above: Order Comment: [facility] Laboratory [facility] has implemented the eGFR calculation approach that does not have a coefficient for race that conforms to the NKF-ASN Task Force Recommendations. Performed By: #### L [id number] #### MH LAB [address] [address] Dallin Donahue M.D. [id number] Potassium [Moles/Vol] 3.3 mmol/L Low 3.5-5.1 [facility] Comment on above: Order Comment: [facility] Laboratory [facility] has implemented the eGFR calculation approach that does not have a coefficient for race that conforms to the NKF-ASN Task Force Recommendations. Performed By: #### L [id number] #### MH LAB [address] [address] Dallin Donahue M.D. [id number] Sodium [Moles/Vol] 132 mmol/L Low 135-145 [facility] Comment on above: Order Comment: [facility] Laboratory [facility] has implemented the eGFR calculation approach that does not have a coefficient for race that conforms to the NKF-ASN Task Force Recommendations. Performed By: #### L [id number] #### MH LAB [address] [address] Dallin Donahue M.D. [id number] Urea nitrogen [Mass/Vol] 5 mg/dL Low 8-25 [facility] Comment on above: Order Comment: [facility] Laboratory [facility] has implemented the eGFR calculation approach that does not have a coefficient for race that conforms to the NKF-ASN Task Force Recommendations. Performed By: #### L [id number] #### MH LAB [address] [address] Dallin Donahue M.D. [id number] Urea nitrogen/Creatinine [Mass ratio] 6.7 mg/mg Low 10.0-20.0 [facility] Comment on above: Order Comment: [facility] Laboratory [facility] has implemented the eGFR calculation approach that does not have a coefficient for race that conforms to the NKF-ASN Task Force Recommendations. Performed By: #### L [id number] #### MH LAB [address] [place], [place] [address] Dallin Donahue M.D. [id number] Basic metabolic 2000 panelon 04-22-2024 Anion gap [Moles/Vol] 14 mmol/L 10 - 2 0 mmol/L [facility] Calcium [Mass/Vol] 8 mg/dL Low 8.4 - 10. 2 mg/dL [facility] Chloride [Moles/Vol] 99 mmol/L 98 - 10 8 mmol/L [facility] Creatinine [Mass/Vol] 0.75 mg/dL 0.50 - 1.30 mg/dL [facility] GFR/1.73 sq M.predicted CKD-EPI (S/P/Bld) [Vol rate/Area] 122 - PINF [facility] Comment on above: Estimated GFR was ca lculated using the 2020 CKD-EPI creatinine equation. Glucose [Mass/Vol] 90 mg/dL 65 - 99 mg/dL [facility] HCO3 [Moles/Vol] 22 mmol/L 21 - 32 mmol/L [facility] Potassium [Moles/Vol] 3.3 mmol/L Low 3.5 - 5.1 mmol/L [facility] Sodium [Moles/Vol] 132 mmol/L Low 135 - 145 mmol/L [facility] Urea nitrogen [Mass/Vol] 5 mg/dL Low 8 - 25 mg/dL [facility] Urea nitrogen/Creatinine [Mass ratio] 6.7 mg/mg Low 10.0 - 20.0 [facility] y Services has implemented the eGFR calculation approach that does not have a coefficient for race that conforms to the NKF-ASN Task Force Recommendations. [facility] CBC Auto Differentialon Basophils (Bld) [#/Vol] 0 10*3/uL [facility] Basophils/100 WBC (Bld) 0 % [facility] Eosinophils (Bld) [#/Vol] 0 10*3/uL [facility] Eosinophils/100 WBC (Bld) 0 % [facility] Erythrocyte distribution width (RBC) [Entitic vol] 13.5 % 11.6 - 14.8 % [facility] Hematocrit (Bld) [Volume fraction] 37.3 % Low 41.0 - 53.0 % [facility] Hemoglobin (Bld) [Mass/Vol] 12.6 g/dL Low 13.5 - 17.5 g/dL [facility] Immature granulocytes (Bld) [#/Vol] 0.06 10*3/uL [facility] Immature granulocytes/100 WBC (Bld) 0.8 % [facility] Comment on above: The IG parameter is the percentage of metamyelocytes, myelocytes and promyelocytes. An immature granulocyte count (IG) of 1% or more suggests the possibility of infection, an IG count of 3% is very likely related to an infection. Interpretation and review of laboratory results Abnormal [facility] Lymphocytes (Bld) [#/Vol] 1.18 10*3/uL [facility] Lymphocytes/100 WBC (Bld) 14.9 % [facility] MCH (RBC) [Entitic mass] 32 pg 26.0 - 34.0 pg [facility] MCHC (RBC) [Mass/Vol] 33.8 g/dL 31.0 - 37.0 g/dL [facility] MCV (RBC) [Entitic vol] 94.7 fL 80.0 - 100.0 fL [facility] Monocytes (Bld) [#/Vol] 1.02 10*3/uL High [facility] Monocytes/100 WBC (Bld) 12.8 % [facility] Neutrophils (Bld) [#/Vol] 5.68 10*3/uL [facility] Neutrophils/100 WBC (Bld) 71.5 % [facility] Nucleated RBC (Bld) [#/Vol] 0 10*3/uL [facility] Nucleated RBC/100 WBC (Bld) [Ratio] 0 % [facility] Platelet mean volume (Bld) [Entitic vol] 10 fL 9.4 - 12.4 fL [facility] Platelets (Bld) [#/Vol] 149 10*3/uL Low [facility] RBC (Bld) [#/Vol] 3.94 10*6/uL Low [facility] WBC (Bld) [#/Vol] 7.94 10*3/uL [facility] CBC WITH AUTO DIFFERENTIALon 04-22-2024 AUTO NRBC 0.0 % [facility] Comment on above: Performed By: #### L [id number] #### MH LAB [address] [place], [place] [address] Dallin Donahue M.D. [id number] AUTO NRBC ABS COUNT 0.00 K/mcL Normal 0.00-0.00 [facility] Comment on above: Performed By: #### L [id number] #### LAB [address] [address] Dallin Donahue M.D. [id number] BASOPHILS ABSOLUTE COUNT 0.00 K/mcL Normal 0.00-0.30 [facility] Comment on above: Performed By: #### L [id number] #### LAB [address] [address] Dallin Donahue M.D. [id number] Basophils/100 WBC (Bld) 0.0 % [facility] Comment on above: Performed By: #### L [id number] #### LAB [address] [address] Dallin Donahue M.D. [id number] Eosinophils (Bld) [#/Vol] 0.00 10*3/uL Normal 0.00-0.50 [facility] Comment on above: Performed By: #### L [id number] #### LAB [address] [address] Dallin Donahue M.D. [id number] Eosinophils/100 WBC (Bld) 0.0 % [facility] Comment on above: Performed By: #### L [id number] #### LAB [address] [place] [address] Dallin Donahue M.D. [id number] Erythrocyte distribution width (RBC) [Ratio] 13.5 % Normal 11.6-14.8 [facility] Comment on above: Performed By: #### L [id number] #### LAB [address] [place] [address] Dallin Donahue M.D. [id number] Hematocrit (Bld) [Volume fraction] 37.3 % Low 41.0-53.0 [facility] Comment on above: Performed By: #### L [id number] #### LAB [address] [place] [address] Dallin Donahue M.D. [id number] Hemoglobin (Bld) [Mass/Vol] 12.6 g/dL Low 13.5-17.5 [facility] Comment on above: Performed By: #### L [id number] #### LAB [address] [address] Dallin Donahue M.D. [id number] IG ABSOLUTE 0.06 K/mcL Normal 0.00-0.30 [facility] Comment on above: Performed By: #### L [id number] #### LAB [address] [address] Dallin Donahue M.D. [id number] IG PERCENT 0.80 % Normal [facility] Comment on above: Result Comment: The IG parameter is the percentage of metamyelocytes, myelocytes and promyelocytes. An immature granulocyte count (IG) of 1% or more suggests the possibility of infection, an IG count of 3% is very likely related to an infection. Performed By: #### L [id number] #### LAB [address] [address] Dallin Donahue M.D. [id number] Lymphocytes (Bld) [#/Vol] 1.18 10*3/uL Normal 0.90-4.00 [facility] Comment on above: Performed By: #### L [id number] #### LAB [address] [address] Dallin Donahue M.D. [id number] Lymphocytes/100 WBC (Bld) 14.9 % Normal [facility] Comment on above: Performed By: #### L [id number] #### LAB [address] [address] Dallin Donahue M.D. [id number] MCH (RBC) [Entitic mass] 32.0 pg Normal 26.0-34.0 [facility] Comment on above: Performed By: #### L [id number] #### LAB [address] [address] Dallin Donahue M.D. [id number] MCV (RBC) [Entitic vol] 94.7 fL Normal 80.0-100.0 [facility] Comment on above: Performed By: #### L [id number] #### LAB [address] [address] Dallin Donahue M.D. [id number] MEAN CORPUSCULAR HEMOGLOBIN CONC 33.8 g/dL Normal 31.0-37.0 [facility] Comment on above: Performed By: #### L [id number] #### LAB [address] [address] Dallin Donahue M.D. [id number] Monocytes (Bld) [#/Vol] 1.02 10*3/uL High 0.30-0.90 [facility] Comment on above: Performed By: #### L [id number] #### LAB [address] [address] Dallin Donahue M.D. [id number] Monocytes/100 WBC (Bld) 12.8 % Normal [facility] Comment on above: Performed By: #### L [id number] #### LAB [address] [address] Dallin Donahue M.D. [id number] NEUTROPHILS ABSOLUTE COUNT 5.68 K/mcL Normal 1.70-7.00 [facility] Comment on above: Performed By: #### L [id number] #### LAB [address] [place] [address] Dallin Donahue M.D. [id number] Neutrophils/100 WBC (Bld) 71.5 % Normal [facility] Comment on above: Performed By: #### L [id number] #### LAB [address] [place] [address] Dallin Donahue M.D. [id number] Platelet mean volume (Bld) [Entitic vol] 10.0 fL Normal 9.4-12.4 [facility] Comment on above: Performed By: #### L [id number] #### LAB [address] [place] [address] Dallin Donahue M.D. [id number] Platelets (Bld) [#/Vol] 149 10*3/uL Low 150-400 [facility] Comment on above: Performed By: #### L [id number] #### MH LAB [address] [address] Dallin Donahue M.D. [id number] RBC (Bld) [#/Vol] 3.94 10*6/uL Low 4.50-5.90 [facility] Comment on above: Performed By: #### L [id number] #### MH LAB [address] [address] Dallin Donahue M.D. [id number] WBC (Bld) [#/Vol] 7.94 10*3/uL Normal 4.50-11.00 [facility] Comment on above: Performed By: #### L [id number] #### LAB [address] [address] Dallin Donahue M.D. [id number] HEPATIC FUNCTION PANELon Albumin [Mass/Vol] 3.5 g/dL Normal 3.2-5.2 [facility] Comment on above: Performed By: #### L [id number] #### MH LAB [address] [address] Dallin Donahue M.D. [id number] ALP [Catalytic activity/Vol] 156 U/L High 40-140 [facility] Comment on above: Performed By: #### L [id number] #### MH LAB [address] [address] Dallin Donahue M.D. [id number] ALT [Catalytic activity/Vol] 42 U/L Normal 0-50 U/L [facility] Comment on above: Performed By: #### L [id number] #### MH LAB [address] [address] Dallin Donahue M.D. [id number] AST [Catalytic activity/Vol] 73 U/L High 0-50 U/L [facility] Comment on above: Performed By: #### L [id number] #### MH LAB [address] [address] Dallin Donahue M.D. [id number] Bilirubin [Mass/Vol] 0.9 mg/dL Normal 0.0-1.3 [facility] Comment on above: Performed By: #### L [id number] #### MH LAB [address] [address] Dallin Donahue M.D. [id number] Bilirubin.indirect [Mass/Vol] 0.4 mg/dL Normal 0.0-0.4 [facility] Comment on above: Performed By: #### L [id number] #### MH LAB [address] [address] Dallin Donahue M.D. [id number] Protein [Mass/Vol] 6.8 g/dL Normal 6.0-8.0 [facility] Comment on above: Performed By: #### L [id number] #### LAB [address] [address] Dallin Donahue M.D. [id number] Hepatic function 2000 panelo n 04-22-2024 Albumin [Mass/Vol] 3.5 g/dL 3.2 - 5.2 g/dL [facility] ALP [Catalytic activity/Vol] 156 U/L High 40 - 140 U/L [facility] ALT [Catalytic activity/Vol] 42 U/L 0-50 U/L [facility] AST [Catalytic activity/Vol] 73 U/L High 0-50 U/L [facility] Bilirubin [Mass/Vol] 0.9 mg/dL 0.0 - 1 .3 mg/dL [facility] Bilirubin.conjugated [Mass/Vol] 0.4 mg/dL 0.0 - 0.4 mg/dL [facility] Interpretation and review of laboratory results Abnormal [facility] Protein [Mass/Vol] 6.8 g/dL 6.0 - 8.0 g/dL [facility] MAGNESIUM LEVELon 04-22-2024 Magnesium [Mass/Vol] 1.8 mg/dL Normal 1.6-2.4 [facility] Comment on above: Performed By: #### L [id number] #### MH LAB [address] [address] Dallin Donahue M.D. [id number] Magnesium Levelon 04-22-2024 Magnesium [Mass/Vol] 1.8 mg/dL 1.6 - 2 .4 mg/dL [facility] Magnesium [Mass/Vol]on 04-22 Interpretation and review of laboratory results Normal [facility] No Panel Informationon 04-22 Interpretation and review of laboratory results Abnormal [facility] PHOSPHORUSon 04-22-2024 Phosphate [Mass/Vol] 1.1 mg/dL Low 2.7-4.5 [facility] Comment on above: Performed By: #### L [id number] #### MH LAB [address] [place], [place] [address] Dallin Donahue M.D. [id number] Phosphoruson 04-22-2024 Phosphate [Mass/Vol] 1.1 mg/dL Low 2.7 - 4 .5 mg/dL [facility] BASIC METABOLIC PANELon Anion gap [Moles/Vol] 18 mmol/L Normal 10-20 [facility] Comment on above: Order Comment: [facility] Services has implemented the eGFR calculation approach that does not have a coefficient for race that conforms to the NKF-ASN Task Force Recommendations. Performed By: #### L [id number] #### MH LAB [address] [place], [place] [address] Dallin Donahue M.D. [id number] Calcium [Mass/Vol] 8.9 mg/dL Normal 8.4-10.2 [facility] Comment on above: Order Comment: [facility] has implemented the eGFR calculation approach that does not have a coefficient for race that conforms to the NKF-ASN Task Force Recommendations. Performed By: #### L [id number] #### MH LAB [address] [place], [place] [address] Dallin Donahue M.D. [id number] Chloride [Moles/Vol] 96 mmol/L Low 98-108 [facility] Comment on above: Order Comment: [facility] has implemented the eGFR calculation approach that does not have a coefficient for race that conforms to the NKF-ASN Task Force Recommendations. Performed By: #### L [id number] #### MH LAB [address] [place], [place] [address] Dallin Donahue M.D. [id number] Creatinine [Mass/Vol] 0.82 mg/dL Normal 0.50-1.30 [facility] Comment on above: Order Comment: [facility] has implemented the eGFR calculation approach that does not have a coefficient for race that conforms to the NKF-ASN Task Force Recommendations. Performed By: #### L [id number] #### LAB [address] [place] [id number] Dallin Donahue M.D. [id number] EGFR 119 mL/min/1.73 m2 Normal >=60 [facility] Comment on above: Order Comment: [facility] has implemented the eGFR calculation approach that does not have a coefficient for race that conforms to the NKF-ASN Task Force Recommendations. Result Comment: Karoline mated GFR was calculated using the 2020 CKD-EPI creatinine equation. Performed By: #### L [id number] #### MH LAB [address] [place] [address] Dallin Donahue M.D. [id number] Glucose [Mass/Vol] 65 mg/dL Normal 65-99 [facility] Comment on above: Order Comment: [facility] has implemented the eGFR calculation approach that does not have a coefficient for race that conforms to the NKF-ASN Task Force Recommendations. Performed By: #### L [id number] #### MH LAB [address] [place] [address] Dallin Donahue M.D. [id number] HCO3 (Bld) [Moles/Vol] 20 mmol/L Low 21-32 [facility] Comment on above: Order Comment: [facility] has implemented the eGFR calculation approach that does not have a coefficient for race that conforms to the NKF-ASN Task Force Recommendations. Performed By: #### L [id number] #### MH LAB [address] [place] [address] Dallin Donahue M.D. [id number] Potassium [Moles/Vol] 4.3 mmol/L Normal 3.5-5.1 [facility] Comment on above: Order Comment: [facility] has implemented the eGFR calculation approach that does not have a coefficient for race that conforms to the NKF-ASN Task Force Recommendations. Result Comment: Slanali htly Hemolyzed Performed By: #### L [id number] #### MH LAB [address] [place], [place] [address] Dallin Donahue M.D. [id number] Sodium [Moles/Vol] 130 mmol/L Low 135-145 [facility] Comment on above: Order Comment: [facility] has implemented the eGFR calculation approach that does not have a coefficient for race that conforms to the NKF-ASN Task Force Recommendations. Performed By: #### L [id number] #### MH LAB [address] [place], [place] [address] Dallin Donahue M.D. [id number] Urea nitrogen [Mass/Vol] 8 mg/dL Normal 8-25 [facility] Comment on above: Order Comment: [facility] has implemented the eGFR calculation approach that does not have a coefficient for race that conforms to the NKF-ASN Task Force Recommendations. Performed By: #### L [id number] #### LAB [address] [place] [address] Dallin Donahue M.D. [id number] Urea nitrogen/Creatinine [Mass ratio] 9.8 mg/mg Low 10.0-20.0 [facility] Comment on above: Order Comment: [facility] has implemented the eGFR calculation approach that does not have a coefficient for race that conforms to the NKF-ASN Task Force Recommendations. Performed By: #### L [id number] #### MH LAB [address] [place], [place] [address] Dallin Donahue M.D. [id number] Basic metabolic 2000 panelOr dered By: Darlene Akins on 04-21-2024 Anion gap [Moles/Vol] 18 mmol/L 10 - 2 0 mmol/L [facility] Calcium [Mass/Vol] 8.9 mg/dL 8.4 - 10. 2 mg/dL [facility] Chloride [Moles/Vol] 96 mmol/L Low 98 - 10 8 mmol/L [facility] Creatinine [Mass/Vol] 0.82 mg/dL 0.50 - 1.30 mg/dL [facility] GFR/1.73 sq M.predicted CKD-EPI (S/P/Bld) [Vol rate/Area] 119 - PINF [facility] Comment on above: Estimated GFR was ca lculated using the 2020 CKD-EPI creatinine equation. Glucose [Mass/Vol] 65 mg/dL 65 - 99 mg/dL [facility] HCO3 [Moles/Vol] 20 mmol/L Low 21 - 32 mmol/L [facility] Potassium [Moles/Vol] 4.3 mmol/L 3.5 - 5.1 mmol/L [facility] Comment on above: Slightly Hemolyzed Sodium [Moles/Vol] 130 mmol/L Low 135 - 145 mmol/L [facility] Urea nitrogen [Mass/Vol] 8 mg/dL 8 - 25 mg/dL [facility] Urea nitrogen/Creatinine [Mass ratio] 9.8 mg/mg Low 10.0 - 20.0 [facility] has implemented the eGFR calculation approach that does not have a coefficient for race that conforms to the NKF-ASN Task Force Recommendations. [facility] CBC Auto Differentialon 11-0 Basophils (Bld) [#/Vol] 0.01 10*3/uL [facility] Basophils/100 WBC (Bld) 0.1 % [facility] Eosinophils (Bld) [#/Vol] 0 10*3/uL [facility] Eosinophils/100 WBC (Bld) 0 % [facility] Erythrocyte distribution width (RBC) [Entitic vol] 13.4 % 11.6 - 14.8 % [facility] Hematocrit (Bld) [Volume fraction] 45.3 % 41.0 - 53.0 % [facility] Hemoglobin (Bld) [Mass/Vol] 15.6 g/dL 13.5 - 17.5 g/dL [facility] Immature granulocytes (Bld) [#/Vol] 0.07 10*3/uL [facility] Immature granulocytes/100 WBC (Bld) 0.7 % [facility] Comment on above: The IG parameter is the percentage of metamyelocytes, myelocytes and promyelocytes. An immature granulocyte count (IG) of 1% or more suggests the possibility of infection, an IG count of 3% is very likely related to an infection. Interpretation and review of laboratory results Abnormal [facility] Lymphocytes (Bld) [#/Vol] 0.65 10*3/uL Low [facility] Lymphocytes/100 WBC (Bld) 6.5 % [facility] MCH (RBC) [Entitic mass] 33.4 pg 26.0 - 34.0 pg [facility] MCHC (RBC) [Mass/Vol] 34.4 g/dL 31.0 - 37.0 g/dL [facility] MCV (RBC) [Entitic vol] 97 fL 80.0 - 100.0 fL [facility] Monocytes (Bld) [#/Vol] 0.82 10*3/uL [facility] Monocytes/100 WBC (Bld) 8.2 % [facility] Neutrophils (Bld) [#/Vol] 8.46 10*3/uL High [facility] Neutrophils/100 WBC (Bld) 84.5 % [facility] Nucleated RBC (Bld) [#/Vol] 0 10*3/uL [facility] Nucleated RBC/100 WBC (Bld) [Ratio] 0 % [facility] Platelet mean volume (Bld) [Entitic vol] 10.4 fL 9.4 - 12.4 fL [facility] Platelets (Bld) [#/Vol] 149 10*3/uL Low [facility] RBC (Bld) [#/Vol] 4.67 10*6/uL [facility] WBC (Bld) [#/Vol] 10.01 10*3/uL [facility] CBC WITH AUTO DIFFERENTIALon 04-21-2024 AUTO NRBC 0.0 % Normal [facility] Comment on above: Performed By: #### L [id number] #### LAB [address] [place] [address] Dallin Donahue M.D. [id number] AUTO NRBC ABS COUNT 0.00 K/mcL Normal 0.00-0.00 [facility] Comment on above: Performed By: #### L [id number] #### LAB [address] [place] [address] Dallin Donahue M.D. [id number] BASOPHILS ABSOLUTE COUNT 0.01 K/mcL Normal 0.00-0.30 [facility] Comment on above: Performed By: #### L [id number] #### LAB [address] [place] [address] Dallin Donahue M.D. [id number] Basophils/100 WBC (Bld) 0.1 % Normal [facility] Comment on above: Performed By: #### L [id number] #### LAB [address] [place] [address] Dallin Donahue M.D. [id number] Eosinophils (Bld) [#/Vol] 0.00 10*3/uL Normal 0.00-0.50 [facility] Comment on above: Performed By: #### L [id number] #### LAB [address] [place] [address] Dallin Donahue M.D. [id number] Eosinophils/100 WBC (Bld) 0.0 % Normal [facility] Comment on above: Performed By: #### L [id number] #### LAB [address] [place] [address] Dallin Donahue M.D. [id number] Erythrocyte distribution width (RBC) [Ratio] 13.4 % Normal 11.6-14.8 [facility] Comment on above: Performed By: #### L [id number] #### LAB [address] [place] [address] Dallin Donahue M.D. [id number] Hematocrit (Bld) [Volume fraction] 45.3 % Normal 41.0-53.0 [facility] Comment on above: Performed By: #### L [id number] #### LAB [address] [place] [address] Dallin Donahue M.D. [id number] Hemoglobin (Bld) [Mass/Vol] 15.6 g/dL Normal 13.5-17.5 [facility] Comment on above: Performed By: #### L [id number] #### LAB [address] [place] [address] Dallin Donahue M.D. [id number] IG ABSOLUTE 0.07 K/mcL Normal 0.00-0.30 [facility] Comment on above: Performed By: #### L [id number] #### LAB [address] [place] [address] Dallin Donahue M.D. [id number] IG PERCENT 0.70 % Normal [facility] Comment on above: Result Comment: The IG parameter is the percentage of metamyelocytes, myelocytes and promyelocytes. An immature granulocyte count (IG) of 1% or more suggests the possibility of infection, an IG count of 3% is very likely related to an infection. Performed By: #### L [id number] #### LAB [address] [place] [address] Dallin Donahue M.D. [id number] Lymphocytes (Bld) [#/Vol] 0.65 10*3/uL Low 0.90-4.00 [facility] Comment on above: Performed By: #### L [id number] #### LAB [address] [place] [address] Dallin Donahue M.D. [id number] Lymphocytes/100 WBC (Bld) 6.5 % Normal [facility] Comment on above: Performed By: #### L [id number] #### LAB [address] [place] [address] Dallin Donahue M.D. [id number] MCH (RBC) [Entitic mass] 33.4 pg Normal 26.0-34.0 [facility] Comment on above: Performed By: #### L [id number] #### LAB [address] [place] [address] Dallin Donahue M.D. [id number] MCV (RBC) [Entitic vol] 97.0 fL Normal 80.0-100.0 [facility] Comment on above: Performed By: #### L [id number] #### LAB [address] [place] [address] Dallin Donahue M.D. [id number] MEAN CORPUSCULAR HEMOGLOBIN CONC 34.4 g/dL Normal 31.0-37.0 [facility] Comment on above: Performed By: #### L [id number] #### LAB [address] [place] [address] Dallin Donahue M.D. [id number] Monocytes (Bld) [#/Vol] 0.82 10*3/uL Normal 0.30-0.90 [facility] Comment on above: Performed By: #### L [id number] #### LAB [address] [place] [address] Dallin Donahue M.D. [id number] Monocytes/100 WBC (Bld) 8.2 % Normal [facility] Comment on above: Performed By: #### L [id number] #### LAB [address] [place] [address] Dallin Donahue M.D. [id number] NEUTROPHILS ABSOLUTE COUNT 8.46 K/mcL High 1.70-7.00 [facility] Comment on above: Performed By: #### L [id number] #### LAB [address] [place] [address] Dallin Donahue M.D. [id number] Neutrophils/100 WBC (Bld) 84.5 % Normal [facility] Comment on above: Performed By: #### L [id number] #### LAB [address] [place] [address] Dallin Donahue M.D. [id number] Platelet mean volume (Bld) [Entitic vol] 10.4 fL Normal 9.4-12.4 [facility] Comment on above: Performed By: #### L [id number] #### LAB [address] [place] [address] Dallin Donahue M.D. [id number] Platelets (Bld) [#/Vol] 149 10*3/uL Low 150-400 [facility] Comment on above: Performed By: #### L [id number] #### LAB [address] [place] [address] Dallin Donahue M.D. [id number] RBC (Bld) [#/Vol] 4.67 10*6/uL Normal 4.50-5.90 [facility] Comment on above: Performed By: #### L [id number] #### LAB [address] [place] [address] Dallin Donahue M.D. [id number] WBC (Bld) [#/Vol] 10.01 10*3/uL Normal 4.50-11.00 [facility] Comment on above: Performed By: #### L [id number] #### MH LAB [address] [place], [place] [address] Dallin Donahue M.D. [id number] CT ABDOMEN PELVIS WITH CONTR [place] 04-21-2024 CT ABDOMEN PELVIS WITH CONTRAST EXAM: CT ABDOMEN PELVIS WITH CONTRAST DATE: 04/21/2024 1:19 pm TECHNIQUE: Axial CT images were obtained through the abdomen and pelvis following intravenous contrast administration. Multiplanar reformatted images also created. IOPAMIDOL 76 % ORAL - , IOPAMIDOL 370 MG IODINE/ML (76 %) INTRAVENOUS SOLUTION - 75 mL, Dose reduction techniques were achieved by using automated exposure control and/or adjustment of mA and/or kV according to patient size and/or use of iterative reconstruction technique. 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 Liver: The liver is homogeneous with normal contours and normal size. Moderate diffuse fatty infiltration throughout the liver. Gallbladder: The gallbladder is unremarkable. There is no intra or extrahepatic biliary dilatation. There are no calcified gallstones. Pancreas: The pancreas enhances homogeneously without a focal lesion or lack of enhancement identified. There is a moderate to large amount of peripancreatic inflammation and fluid which is substantially increased from 04/19/2024. there is no peripherally enhancing fluid collection that would indicate an abscess. The SMA, SMV, and splenic vein are well enhanced. Spleen: The spleen is unremarkable without evidence for mass lesion. Adrenals: The adrenal glands are unremarkable Kidneys and bladder: The kidneys are unremarkable with no evidence for mass lesion, hydronephrosis or inflammation.There is no obstructing ureteral calculus seen.The ureters demonstrate normal caliber.The urinary bladder is unremarkable. GI tract: Small hiatal hernia. The stomach is mostly empty/collapsed.Visualize d small bowel is unremarkable without evidence for obstruction or active inflammation. There is oral contrast throughout the small bowel and reaching the right colon. There are no findings of acute appendicitis. The visualized portion of the large bowel is unremarkable. Reproductive: Unremarkable Lymph nodes: No retroperitoneal or abdominal lymphadenopathy. Vascular: The aorta demonstrates normal caliber without aneurysm or dissection.The major aorta branch vessels are patent.There is no vascular thrombosis. Peritoneum: No free intraperitoneal air. Mild ascites in the pericolic gutters. Abdominal wall and Skeletal: Unremarkable without acute abnormality. IMPRESSION: 1. There are findings of moderate to severe acute pancreatitis described above noted to be substantially progressive from 04/19/2024. No evidence for pancreatic necrosis or vascular thrombosis. 2. Small effusions and adjacent lower lobe atelectasis is new. 3. There is mild ascites. 4. There is moderate diffuse fatty infiltration of the liver. Workstation ID: [id number] Dictated by: PIERRE MULLIGAN on SatApr 21, 2024 2:17:08 PM EST Transcribed by: PIERRE MULLIGAN on SatApr 21, 2024 2:17:08 PM EST Finalized by: PIERRE MULLIGAN on SatApr 21, 2024 2:17:08 PM EST Normal [facility] Comment on above: Order Comment: Injur y/Trauma or Illness?:Illness/OtherHow long have you had these symptoms (acute/chronic)?:AcuteReason for exam?:abdominal painType of Exam?:InitialAdditional signs and symptoms?:n/a CT Abdomen and Pelvis W cont rast Nandini 04-21-2024 EXAM: CT ABDOMEN PELVIS WITH CONTRAST DATE: 04/21/2024 1:19 pm TECHNIQUE: Axial CT images were obtained through the abdomen and pelvis following intravenous contrast administration. Multiplanar reformatted images also created. IOPAMIDOL 76 % ORAL - , IOPAMIDOL 370 MG IODINE/ML (76 %) INTRAVENOUS SOLUTION - 75 mL, Dose reduction techniques were achieved by using automated exposure control and/or adjustment of mA and/or kV according to patient size and/or use of iterative reconstruction technique. 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 Liver: The liver is homogeneous with normal contours and normal size. Moderate diffuse fatty infiltration throughout the liver. Gallbladder: The gallbladder is unremarkable. There is no intra or extrahepatic biliary dilatation. There are no calcified gallstones. Pancreas: The pancreas enhances homogeneously without a focal lesion or lack of enhancement identified. There is a moderate to large amount of peripancreatic inflammation and fluid which is substantially increased from 04/19/2024. there is no peripherally enhancing fluid collection that would indicate an abscess. The SMA, SMV, and splenic vein are well enhanced. Spleen: The spleen is unremarkable without evidence for mass lesion. Adrenals: The adrenal glands are unremarkable Kidneys and bladder: The kidneys are unremarkable with no evidence for mass lesion, hydronephrosis or inflammation.There is no obstructing ureteral calculus seen.The ureters demonstrate normal caliber.The urinary bladder is unremarkable. GI tract: Small hiatal hernia. The stomach is mostly empty/collapsed.Visualize d small bowel is unremarkable without evidence for obstruction or active inflammation. There is oral contrast throughout the small bowel and reaching the right colon. There are no findings of acute appendicitis. The visualized portion of the large bowel is unremarkable. Reproductive: Unremarkable Lymph nodes: No retroperitoneal or abdominal lymphadenopathy. Vascular: The aorta demonstrates normal caliber without aneurysm or dissection.The major aorta branch vessels are patent.There is no vascular thrombosis. Peritoneum: No free intraperitoneal air. Mild ascites in the pericolic gutters. Abdominal wall and Skeletal: Unremarkable without acute abnormality. GE Pierre Walker MD - 04/21/2024 EXAM: CT ABDOMEN PELVIS WITH CONTRAST DATE: 04/21/2024 1:19 pm TECHNIQUE: Axial CT images were obtained through the abdomen and pelvis following intravenous contrast administration. Multiplanar reformatted images also created. IOPAMIDOL 76 % ORAL - , IOPAMIDOL 370 MG IODINE/ML (76 %) INTRAVENOUS SOLUTION - 75 mL, Dose reduction techniques were achieved by using automated exposure control and/or adjustment of mA and/or kV according to patient size and/or use of iterative reconstruction technique. 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 Liver: The liver is homogeneous with normal contours and normal size. Moderate diffuse fatty infiltration throughout the liver. Gallbladder: The gallbladder is unremarkable. There is no intra or extrahepatic biliary dilatation. There are no calcified gallstones. Pancreas: The pancreas enhances homogeneously without a focal lesion or lack of enhancement identified. There is a moderate to large amount of peripancreatic inflammation and fluid which is substantially increased from 04/19/2024. there is no peripherally enhancing fluid collection that would indicate an abscess. The SMA, SMV, and splenic vein are well enhanced. Spleen: The spleen is unremarkable without evidence for mass lesion. Adrenals: The adrenal glands are unremarkable Kidneys and bladder: The kidneys are unremarkable with no evidence for mass lesion, hydronephrosis or inflammation.There is no obstructing ureteral calculus seen.The ureters demonstrate normal caliber.The urinary bladder is unremarkable. GI tract: Small hiatal hernia. The stomach is mostly empty/collapsed.Visualize d small bowel is unremarkable without evidence for obstruction or active inflammation. There is oral contrast throughout the small bowel and reaching the right colon. There are no findings of acute appendicitis. The visualized portion of the large bowel is unremarkable. Reproductive: Unremarkable Lymph nodes: No retroperitoneal or abdominal lymphadenopathy. Vascular: The aorta demonstrates normal caliber without aneurysm or dissection.The major aorta branch vessels are patent.There is no vascular thrombosis. Peritoneum: No free intraperitoneal air. Mild ascites in the pericolic gutters. Abdominal wall and Skeletal: Unremarkable without acute abnormality. IMPRESSION: 1. There are findings of moderate to severe acute pancreatitis described above noted to be substantially progressive from 04/19/2024. No evidence for pancreatic necrosis or vascular thrombosis. 2. Small effusions and adjacent lower lobe atelectasis is new. 3. There is mild ascites. 4. There is moderate diffuse fatty infiltration of the liver. Workstation ID: [id number] [facility] Radiology Study observation (narrative) [facility] CT Abdomen and Pelvis W cont rast IVOrdered By: Pierre Mulligan on 04-21-2024 [facility] Work Phone: HEPATIC FUNCTION PANELon Albumin [Mass/Vol] 3.8 g/dL Normal 3.2-5.2 [facility] Comment on above: Performed By: #### L [id number] #### MH LAB [address] [place] [address] Dallin Donahue M.D. [id number] ALP [Catalytic activity/Vol] 212 U/L High 40-140 [facility] Comment on above: Performed By: #### L [id number] #### MH LAB [address] [place] [address] Dallin Donahue M.D. [id number] ALT [Catalytic activity/Vol] 71 U/L High 0-50 U/L [facility] Comment on above: Performed By: #### L [id number] #### MH LAB [address] [place] [address] Dallin Donahue M.D. [id number] AST [Catalytic activity/Vol] 134 U/L High 0-50 U/L [facility] Comment on above: Result Comment: Slig htly Hemolyzed Performed By: #### L [id number] #### MH LAB [address] [place] [address] Dallin Donahue M.D. [id number] Bilirubin [Mass/Vol] 1.5 mg/dL High 0.0-1.3 [facility] Comment on above: Performed By: #### L [id number] #### MH LAB [address] [place], [place] [address] Dallin Donahue M.D. [id number] Bilirubin.indirect [Mass/Vol] 0.6 mg/dL High 0.0-0.4 [facility] Comment on above: Performed By: #### L [id number] #### MH LAB [address] [place], [place] [address] Dallin Donahue M.D. [id number] Protein [Mass/Vol] 7.6 g/dL Normal 6.0-8.0 [facility] Comment on above: Performed By: #### L [id number] #### LAB [address], [place] [address] Dallin Donahue M.D. [id number] Hepatic function 2000 panelo n 04-21-2024 Albumin [Mass/Vol] 3.8 g/dL 3.2 - 5.2 g/dL [facility] ALP [Catalytic activity/Vol] 212 U/L High 40 - 140 U/L [facility] ALT [Catalytic activity/Vol] 71 U/L High 0-50 U/L [facility] AST [Catalytic activity/Vol] 134 U/L High 0-50 U/L [facility] Comment on above: Slightly Hemolyzed Bilirubin [Mass/Vol] 1.5 mg/dL High 0.0 - 1 .3 mg/dL [facility] Bilirubin.conjugated [Mass/Vol] 0.6 mg/dL High 0.0 - 0.4 mg/dL [facility] Interpretation and review of laboratory results Abnormal [facility] Protein [Mass/Vol] 7.6 g/dL 6.0 - 8.0 g/dL [facility] MAGNESIUM LEVELon 04-21-2024 Magnesium [Mass/Vol] 1.8 mg/dL Normal 1.6-2.4 [facility] Comment on above: Performed By: #### L [id number] #### MH LAB [address], [place] [address] Dallin Donahue M.D. [id number] Magnesium Levelon 04-21-2024 Magnesium [Mass/Vol] 1.8 mg/dL 1.6 - 2 .4 mg/dL [facility] Magnesium [Mass/Vol]on 04-21 Interpretation and review of laboratory results Normal [facility] No Panel InformationOrdered By: Darlene kAins on 04-21-2024 Interpretation and review of laboratory results Abnormal [facility] PHOSPHORUSon 04-21-2024 Phosphate [Mass/Vol] 2.6 mg/dL Low 2.7-4.5 [facility] Comment on above: Performed By: #### L [id number] #### MH LAB [address] [place] [address] Dallin Donahue M.D. [id number] Phosphoruson 04-21-2024 Phosphate [Mass/Vol] 2.6 mg/dL Low 2.7 - 4 .5 mg/dL [facility] BASIC METABOLIC PANELon Anion gap [Moles/Vol] 17 mmol/L Normal 10-20 [facility] Comment on above: Order Comment: [facility] Laboratory Services has implemented the eGFR calculation approach that does not have a coefficient for race that conforms to the NKF-ASN Task Force Recommendations. Performed By: #### L [id number] #### MH LAB [address] [place] [address] Dallin Donahue M.D. [id number] Calcium [Mass/Vol] 8.8 mg/dL Normal 8.4-10.2 [facility] Comment on above: Order Comment: [facility] Laboratory Services has implemented the eGFR calculation approach that does not have a coefficient for race that conforms to the NKF-ASN Task Force Recommendations. Performed By: #### L [id number] #### MH LAB [address] [place] [address] Dallin Donahue M.D. [id number] Chloride [Moles/Vol] 99 mmol/L Normal 98-108 [facility] Comment on above: Order Comment: [facility] Laboratory Services has implemented the eGFR calculation approach that does not have a coefficient for race that conforms to the NKF-ASN Task Force Recommendations. Performed By: #### L [id number] #### MH LAB [address] [place] [id number] Dallin Donahue M.D. [id number] Creatinine [Mass/Vol] 0.87 mg/dL Normal 0.50-1.30 [facility] Comment on above: Order Comment: [facility] Laboratory Services has implemented the eGFR calculation approach that does not have a coefficient for race that conforms to the NKF-ASN Task Force Recommendations. Performed By: #### L [id number] #### LAB [address] [place], [place] [address] Dallin Donahue M.D. [id number] EGFR 117 mL/min/1.73 m2 Normal >=60 [facility] Comment on above: Order Comment: [facility] Laboratory Services has implemented the eGFR calculation approach that does not have a coefficient for race that conforms to the NKF-ASN Task Force Recommendations. Result Comment: Karoline mated GFR was calculated using the 2020 CKD-EPI creatinine equation. Performed By: #### L [id number] #### MH LAB [address] [place] [address] Dallin Donahue M.D. [id number] Glucose [Mass/Vol] 72 mg/dL Normal 65-99 [facility] Comment on above: Order Comment: [facility] Laboratory [facility] has implemented the eGFR calculation approach that does not have a coefficient for race that conforms to the NKF-ASN Task Force Recommendations. Performed By: #### L [id number] #### MH LAB [address] [place] [address] Dallin Donahue M.D. [id number] HCO3 (Bld) [Moles/Vol] 23 mmol/L Normal 21-32 [facility] Comment on above: Order Comment: [facility] Laboratory Services has implemented the eGFR calculation approach that does not have a coefficient for race that conforms to the NKF-ASN Task Force Recommendations. Performed By: #### L [id number] #### MH LAB [address] [place] [address] Dallin Donahue M.D. [id number] Potassium [Moles/Vol] 3.8 mmol/L Normal 3.5-5.1 [facility] Comment on above: Order Comment: [facility] Laboratory Services has implemented the eGFR calculation approach that does not have a coefficient for race that conforms to the NKF-ASN Task Force Recommendations. Performed By: #### L [id number] #### MH LAB [address] [place], [place] [address] Dallin Donahue M.D. [id number] Sodium [Moles/Vol] 135 mmol/L Normal 135-145 [facility] Comment on above: Order Comment: [facility] Laboratory Services has implemented the eGFR calculation approach that does not have a coefficient for race that conforms to the NKF-ASN Task Force Recommendations. Performed By: #### L [id number] #### MH LAB [address], [place] [address] Dallin Donahue M.D. [id number] Urea nitrogen [Mass/Vol] 6 mg/dL Low 8-25 [facility] Comment on above: Order Comment: [facility] Laboratory Services has implemented the eGFR calculation approach that does not have a coefficient for race that conforms to the NKF-ASN Task Force Recommendations. Performed By: #### L [id number] #### LAB [address] [place] [address] Dallin Donahue M.D. [id number] Urea nitrogen/Creatinine [Mass ratio] 6.9 mg/mg Low 10.0-20.0 [facility] Comment on above: Order Comment: [facility] Laboratory Services has implemented the eGFR calculation approach that does not have a coefficient for race that conforms to the NKF-ASN Task Force Recommendations. Performed By: #### L [id number] #### MH LAB [address] [place], [place] [address] Dallin Donahue M.D. [id number] Basic metabolic 2000 panelon 04-20-2024 Anion gap [Moles/Vol] 17 mmol/L 10 - 2 0 mmol/L [facility] Calcium [Mass/Vol] 8.8 mg/dL 8.4 - 10. 2 mg/dL [facility] Chloride [Moles/Vol] 99 mmol/L 98 - 10 8 mmol/L [facility] Creatinine [Mass/Vol] 0.87 mg/dL 0.50 - 1.30 mg/dL [facility] GFR/1.73 sq M.predicted CKD-EPI (S/P/Bld) [Vol rate/Area] 117 - PINF [facility] Comment on above: Estimated GFR was ca lculated using the 2020 CKD-EPI creatinine equation. Glucose [Mass/Vol] 72 mg/dL 65 - 99 mg/dL [facility] HCO3 [Moles/Vol] 23 mmol/L 21 - 32 mmol/L [facility] Potassium [Moles/Vol] 3.8 mmol/L 3.5 - 5.1 mmol/L [facility] Sodium [Moles/Vol] 135 mmol/L 135 - 145 mmol/L [facility] Urea nitrogen [Mass/Vol] 6 mg/dL Low 8 - 25 mg/dL [facility] Urea nitrogen/Creatinine [Mass ratio] 6.9 mg/mg Low 10.0 - 20.0 [facility] Laborator y Services has implemented the eGFR calculation approach that does not have a coefficient for race that conforms to the NKF-ASN Task Force Recommendations. [facility] CBC Auto Differentialon 11-0 Basophils (Bld) [#/Vol] 0.01 10*3/uL [facility] Basophils/100 WBC (Bld) 0.1 % [facility] Eosinophils (Bld) [#/Vol] 0 10*3/uL [facility] Eosinophils/100 WBC (Bld) 0 % [facility] Erythrocyte distribution width (RBC) [Entitic vol] 13.7 % 11.6 - 14.8 % [facility] Hematocrit (Bld) [Volume fraction] 46.5 % 41.0 - 53.0 % [facility] Hemoglobin (Bld) [Mass/Vol] 15.8 g/dL 13.5 - 17.5 g/dL [facility] Immature granulocytes (Bld) [#/Vol] 0.03 10*3/uL [facility] Immature granulocytes/100 WBC (Bld) 0.3 % [facility] Comment on above: The IG parameter is the percentage of metamyelocytes, myelocytes and promyelocytes. An immature granulocyte count (IG) of 1% or more suggests the possibility of infection, an IG count of 3% is very likely related to an infection. Interpretation and review of laboratory results Abnormal [facility] Lymphocytes (Bld) [#/Vol] 0.86 10*3/uL Low [facility] Lymphocytes/100 WBC (Bld) 9.8 % [facility] MCH (RBC) [Entitic mass] 32.1 pg 26.0 - 34.0 pg [facility] MCHC (RBC) [Mass/Vol] 34 g/dL 31.0 - 37.0 g/dL [facility] MCV (RBC) [Entitic vol] 94.5 fL 80.0 - 100.0 fL [facility] Monocytes (Bld) [#/Vol] 0.72 10*3/uL [facility] Monocytes/100 WBC (Bld) 8.2 % [facility] Neutrophils (Bld) [#/Vol] 7.19 10*3/uL High [facility] Neutrophils/100 WBC (Bld) 81.6 % [facility] Nucleated RBC (Bld) [#/Vol] 0 10*3/uL [facility] Nucleated RBC/100 WBC (Bld) [Ratio] 0 % [facility] Platelet mean volume (Bld) [Entitic vol] 9.8 fL 9.4 - 12.4 fL [facility] Platelets (Bld) [#/Vol] 169 10*3/uL [facility] RBC (Bld) [#/Vol] 4.92 10*6/uL [facility] (Bld[facility] [#/Vol] 8.81 10*3/uL [facility] WITH AUTO DIFFERENTIALon 04-20-2024 AUTO NRBC 0.0 % [facility] Comment on above: Performed By: #### L [id number] #### LAB [address] [place] [address] Dallin Donahue M.D. [id number] AUTO NRBC ABS COUNT 0.00 K/mcL Normal 0.00-0.00 [facility] Comment on above: Performed By: #### L [id number] #### MH LAB [address] [place] [address] Dallin Donahue M.D. [id number] BASOPHILS ABSOLUTE COUNT 0.01 K/mcL Normal 0.00-0.30 [facility] Comment on above: Performed By: #### L [id number] #### MH LAB [address] [place] [address] Dallin Donahue M.D. [id number] Basophils/100 WBC (Bld) 0.1 % [facility] Comment on above: Performed By: #### L [id number] #### MH LAB [address] [place] [address] Dallin Donahue M.D. [id number] Eosinophils (Bld) [#/Vol] 0.00 10*3/uL Normal 0.00-0.50 [facility] Comment on above: Performed By: #### L [id number] #### LAB [address] [place] [address] Dallin Donahue M.D. [id number] Eosinophils/100 WBC (Bld) 0.0 % Normal [facility] Comment on above: Performed By: #### L [id number] #### LAB [address] [place] [address] Dallin Donahue M.D. [id number] Erythrocyte distribution width (RBC) [Ratio] 13.7 % Normal 11.6-14.8 [facility] Comment on above: Performed By: #### L [id number] #### LAB [address] [place] [address] Dallin Donahue M.D. [id number] Hematocrit (Bld) [Volume fraction] 46.5 % Normal 41.0-53.0 [facility] Comment on above: Performed By: #### L [id number] #### LAB [address] [place] [address] Dallin Donahue M.D. [id number] Hemoglobin (Bld) [Mass/Vol] 15.8 g/dL Normal 13.5-17.5 [facility] Comment on above: Performed By: #### L [id number] #### LAB [address] [place] [address] Dallin Donahue M.D. [id number] IG ABSOLUTE 0.03 K/mcL Normal 0.00-0.30 [facility] Comment on above: Performed By: #### L [id number] #### LAB [address] [place] [address] Dallin Donahue M.D. [id number] IG PERCENT 0.30 % Normal [facility] Comment on above: Result Comment: The IG parameter is the percentage of metamyelocytes, myelocytes and promyelocytes. An immature granulocyte count (IG) of 1% or more suggests the possibility of infection, an IG count of 3% is very likely related to an infection. Performed By: #### L [id number] #### LAB [address] [place] [address] Dallin Donahue M.D. [id number] Lymphocytes (Bld) [#/Vol] 0.86 10*3/uL Low 0.90-4.00 [facility] Comment on above: Performed By: #### L [id number] #### LAB [address] [place] [address] Dallin Donahue M.D. [id number] Lymphocytes/100 WBC (Bld) 9.8 % Normal [facility] Comment on above: Performed By: #### L [id number] #### LAB [address] [place] [address] Dallin Donahue M.D. [id number] MCH (RBC) [Entitic mass] 32.1 pg Normal 26.0-34.0 [facility] Comment on above: Performed By: #### L [id number] #### LAB [address] [place] [address] Dallin Donahue M.D. [id number] MCV (RBC) [Entitic vol] 94.5 fL Normal 80.0-100.0 [facility] Comment on above: Performed By: #### L [id number] #### LAB [address] [place] [address] Dallin Donahue M.D. [id number] MEAN CORPUSCULAR HEMOGLOBIN CONC 34.0 g/dL Normal 31.0-37.0 [facility] Comment on above: Performed By: #### L [id number] #### LAB [address] [place] [address] Dallin Donahue M.D. [id number] Monocytes (Bld) [#/Vol] 0.72 10*3/uL Normal 0.30-0.90 [facility] Comment on above: Performed By: #### L [id number] #### LAB [address] [place] [address] Dallin Donahue M.D. [id number] Monocytes/100 WBC (Bld) 8.2 % Normal [facility] Comment on above: Performed By: #### L [id number] #### LAB [address] [place] [address] Dallin Donahue M.D. [id number] NEUTROPHILS ABSOLUTE COUNT 7.19 K/mcL High 1.70-7.00 [facility] Comment on above: Performed By: #### L [id number] #### LAB [address] [place] [address] Dallin Donahue M.D. [id number] Neutrophils/100 WBC (Bld) 81.6 % Normal [facility] Comment on above: Performed By: #### L [id number] #### LAB [address] [place] [address] Dallin Donahue M.D. [id number] Platelet mean volume (Bld) [Entitic vol] 9.8 fL Normal 9.4-12.4 [facility] Comment on above: Performed By: #### L [id number] #### LAB [address] [place] [address] Dallin Donahue M.D. [id number] Platelets (Bld) [#/Vol] 169 10*3/uL Normal 150-400 [facility] Comment on above: Performed By: #### L [id number] #### LAB [address] [place] [address] Dallin Donahue M.D. [id number] RBC (Bld) [#/Vol] 4.92 10*6/uL Normal 4.50-5.90 [facility] Comment on above: Performed By: #### L [id number] #### LAB [address] [place] [address] Dallin Donahue M.D. [id number] WBC (Bld) [#/Vol] 8.81 10*3/uL Normal 4.50-11.00 [facility] Comment on above: Performed By: #### L [id number] #### LAB [address] [place] [address] Dallin Donahue M.D. [id number] HEPATIC FUNCTION PANELon Albumin [Mass/Vol] 4.2 g/dL Normal 3.2-5.2 [facility] Comment on above: Performed By: #### L [id number] #### LAB [address] [place] [address] Dallin Donahue M.D. [id number] ALP [Catalytic activity/Vol] 250 U/L High 40-140 [facility] Comment on above: Performed By: #### L [id number] #### LAB [address] [place] [address] Dallin Donahue M.D. [id number] ALT [Catalytic activity/Vol] 103 U/L High 0-50 U/L [facility] Comment on above: Performed By: #### L [id number] #### LAB [address] [place] [address] Dallin Donahue M.D. [id number] AST [Catalytic activity/Vol] 227 U/L High 0-50 U/L [facility] Comment on above: Result Comment: Slig htly Hemolyzed Performed By: #### L [id number] #### LAB [address] [place] [address] Dallin Donahue M.D. [id number] Bilirubin [Mass/Vol] 1.5 mg/dL High 0.0-1.3 [facility] Comment on above: Performed By: #### L [id number] #### LAB [address] [place] [address] Dallin Donahue M.D. [id number] Bilirubin.indirect [Mass/Vol] 0.6 mg/dL High 0.0-0.4 [facility] Comment on above: Performed By: #### L [id number] #### LAB [address] [place] [address] Dallin oDnahue M.D. [id number] Protein [Mass/Vol] 7.7 g/dL Normal 6.0-8.0 [facility] Comment on above: Performed By: #### L [id number] #### LAB [address] [place], [place] [address] Dallin Donahue M.D. [id number] Hepatic function 2000 panelO rdered By: Julieth Olivarez on 04-20-2024 Albumin [Mass/Vol] 4.2 g/dL 3.2 - 5.2 g/dL [facility] ALP [Catalytic activity/Vol] 250 U/L High 40 - 140 U/L [facility] ALT [Catalytic activity/Vol] 103 U/L High 0-50 U/L [facility] AST [Catalytic activity/Vol] 227 U/L High 0-50 U/L [facility] Comment on above: Slightly Hemolyzed Bilirubin [Mass/Vol] 1.5 mg/dL High 0.0 - 1 .3 mg/dL [facility] Bilirubin.conjugated [Mass/Vol] 0.6 mg/dL High 0.0 - 0.4 mg/dL [facility] Interpretation and review of laboratory results Abnormal [facility] Protein [Mass/Vol] 7.7 g/dL 6.0 - 8.0 g/dL [facility] MAGNESIUM LEVELon 04-20-2024 Magnesium [Mass/Vol] 2.2 mg/dL Normal 1.6-2.4 [facility] Comment on above: Performed By: #### L [id number] #### LAB [address] [place], [place] [address] Dallin Donahue M.D. [id number] Magnesium Levelon 04-20-2024 Magnesium [Mass/Vol] 2.2 mg/dL 1.6 - 2 .4 mg/dL [facility] Magnesium [Mass/Vol]on 04-20 Interpretation and review of laboratory results Normal [facility] No Panel Informationon 04-20 Interpretation and review of laboratory results Abnormal [facility] PHOSPHORUSon 04-20-2024 Phosphate [Mass/Vol] 2.0 mg/dL Low 2.7-4.5 [facility] Comment on above: Performed By: #### [id number] #### LAB [address] [place] [address] Dallin Donahue M.D. [id number] Phosphoruson 04-20-2024 Phosphate [Mass/Vol] 2 mg/dL Low 2.7 - 4 .5 mg/dL [facility] ALCOHOLon 04-19-2024 Ethanol [Mass/Vol] 105 mg/dL High 0-10 [facility] Comment on above: Result Comment: INTOXICATION >80 MG/DL FATAL >400 MG/DL Testing performed at [place] [address] Performed By: #### A IVETO #### [place] [address] ALCOHOL (ETHANOL),BLOODon Ethanol [Mass/Vol] 105 mg/dL High [facility] Comment on above: INTOXICATION >80 MG/DL FATAL >400 MG/DL Testing performed at [place] [address] Interpretation and review of laboratory results Abnormal [facility] CBCon 04-19-2024 ABSOLUTE BAS 0.0 10*3/uL Normal 0.0-0.2 [facility] Comment on above: Result Comment: Test ing performed at [place] [address] Performed By: #### C HEM7F, ACBC, LIVR, LIPA2 #### [place] [address] ABSOLUTE EOS 0.0 10*3/uL Normal 0.0-0.7 [facility] Comment on above: Performed By: #### C HEM7F, ACBC, LIVR, LIPA2 #### [place] [address] ABSOLUTE NEUTROPHIL COUNT 7.6 10*3/uL High 1.4-6.5 [facility] Comment on above: Performed By: #### C HEM7F, ACBC, LIVR, LIPA2 #### [place] [address] Basophils/100 WBC (Bld) 0.3 % Normal 0.0-2.0 [facility] Comment on above: Performed By: #### C HEM7F, ACBC, LIVR, LIPA2 #### Testing performed at [address] [address] DTYPE AUTO DIFF Normal [facility] Comment on above: Performed By: #### C HEM7F, ACBC, LIVR, LIPA2 #### Testing performed at [address] [address] Eosinophils/100 WBC (Bld) 0.1 % Normal 0.0-11.0 [facility] Comment on above: Performed By: #### C HEM7F, ACBC, LIVR, LIPA2 #### [place] [address] Lymphocytes (Bld) [#/Vol] 1.5 10*3/uL Normal 1.2-3.4 [facility] Comment on above: Performed By: #### C HEM7F, ACBC, LIVR, LIPA2 #### [place] [address] Lymphocytes/100 WBC (Bld) 14.8 % Low 20.0-55.0 [facility] Comment on above: Performed By: #### C HEM7F, ACBC, LIVR, LIPA2 #### Testing performed at [place] [id number] Monocytes (Bld) [#/Vol] 1.0 10*3/uL High 0.0-0.7 [facility] Comment on above: Performed By: #### C HEM7F, ACBC, LIVR, LIPA2 #### Testing performed at [place] [id number] Monocytes/100 WBC (Bld) 9.6 % Normal 0.0-10.0 [facility] Comment on above: Performed By: #### C HEM7F, ACBC, LIVR, LIPA2 #### Testing performed at [address] [address] Neutrophils/100 WBC (Bld) 75.2 % High 37.0-75.0 [facility] Comment on above: Performed By: #### C HEM7F, ACBC, LIVR, LIPA2 #### [place] [address] Erythrocyte distribution width (RBC) [Ratio] 15.7 % High 11.5-14.5 [facility] Comment on above: Performed By: #### C HEM7F, ACBC, LIVR, LIPA2 #### [place] [address] Hematocrit (Bld) [Volume fraction] 45.8 % Normal 42.0-52.0 [facility] Comment on above: Performed By: #### C HEM7F, ACBC, LIVR, LIPA2 #### [place] [address] Hemoglobin (Bld) [Mass/Vol] 15.6 g/dL Normal 14.0-18.0 [facility] Comment on above: Performed By: #### C HEM7F, ACBC, LIVR, LIPA2 #### [place] [address] MCH (RBC) [Entitic mass] 33.5 pg Normal 26.0-35.0 [facility] Comment on above: Performed By: #### C HEM7F, ACBC, LIVR, LIPA2 #### [place] [address] MCHC (RBC) [Mass/Vol] 34.0 g/dL Normal 27.0-37.0 [facility] Comment on above: Performed By: #### C HEM7F, ACBC, LIVR, LIPA2 #### [place] [address] MCV (RBC) [Entitic vol] 98.5 fL Normal 80.0-100.0 [facility] Comment on above: Performed By: #### C HEM7F, ACBC, LIVR, LIPA2 #### [place] [address] Platelet mean volume (Bld) [Entitic vol] 7.5 fL Normal 7.4-11.0 [facility] Comment on above: Performed By: #### C HEM7F, ACBC, LIVR, LIPA2 #### Testing performed at [address] [address] Platelets (Bld) [#/Vol] 233 10*3/uL Normal 130-400 [facility] Comment on above: Performed By: #### C HEM7F, ACBC, LIVR, LIPA2 #### Testing performed at [place] [id number] RBC (Bld) [#/Vol] 4.65 10*6/uL Normal 4.0-6.1 [facility] Comment on above: Performed By: #### C HEM7F, ACBC, LIVR, LIPA2 #### Testing performed at [address] [address] WBC (Bld) [#/Vol] 10.1 10*3/uL Normal 3.6-11.0 [facility] Comment on above: Performed By: #### C HEM7F, ACBC, LIVR, LIPA2 #### Testing performed at [address] [address] CBC, EDIF, PLATELETon 2023 ABSOLUTE BASOPHIL COUNT 0.0 10*3/uL 0.0 - 0.2 10*3/uL [facility] Comment on above: Testing performed at [place], [place] [address] Basophils/100 WBC (Bld) 0.3 % 0.0 - 2.0 % [facility] Differential cell count method Nom (Bld) AUTO DIFF % [facility] Eosinophils (Bld) [#/Vol] 0.0 10*3/uL 0.0 - 0.7 10*3/uL [facility] Eosinophils/100 WBC (Bld) 0.1 % 0.0 - 11.0 % [facility] Erythrocyte distribution width (RBC) [Ratio] 15.7 % High 11.5 - 14.5 % [facility] Hematocrit (Bld) [Volume fraction] 45.8 % 42.0 - 52.0 % [facility] Hemoglobin (Bld) [Mass/Vol] 15.6 g/dL [facility] Interpretation and review of laboratory results Abnormal [facility] Lymphocytes (Bld) [#/Vol] 1.5 10*3/uL 1.2 - 3.4 10*3/uL [facility] Lymphocytes/100 WBC (Bld) 14.8 % Low 20.0 - 55.0 % [facility] MCH (RBC) [Entitic mass] 33.5 pg 26.0 - 35.0 PG [facility] MCHC (RBC) [Mass/Vol] 34.0 g/dL [facility] MCV (RBC) [Entitic vol] 98.5 fL [facility] Monocytes (Bld) [#/Vol] 1.0 10*3/uL High 0.0 - 0.7 10*3/uL [facility] Monocytes/100 WBC (Bld) 9.6 % 0.0 - 10.0 % [facility] Neutrophils (Bld) [#/Vol] 7.6 10*3/uL High 1.4 - 6.5 10*3/uL [facility] Neutrophils/100 WBC (Bld) 75.2 % High 37.0 - 75.0 % [facility] Platelet mean volume (Bld) [Entitic vol] 7.5 fL [facility] Platelets (Bld) [#/Vol] 233 10*3/uL 130 - 400 10*3/uL [facility] RBC (Bld) [#/Vol] 4.65 10*6/uL 4.0 - 6.1 10*6/uL [facility] WBC (Bld) [#/Vol] 10.1 10*3/uL 3.6 - 11.0 10*3/uL [facility] CHEM 7 FASTINGon 04-19-2024 Chloride [Moles/Vol] 100 mmol/L Normal 98-107 [facility] Comment on above: Result Comment: Lisbeth stone note: Triglyceride levels of 600mg/dL or higher may positively bias chloride results by approximately 2.1 mmol Performed By: #### C HEM7F, ACBC, LIVR, LIPA2 #### Testing performed at [address] [address] CO2 [Moles/Vol] 21 mmol/L Low 22-30 [facility] Comment on above: Performed By: #### C HEM7F, ACBC, LIVR, LIPA2 #### [place] [address] Creatinine [Mass/Vol] 1.00 mg/dL Normal 0.7-1.2 [facility] Comment on above: Performed By: #### C HEM7F, ACBC, LIVR, LIPA2 #### [place] [address] EST. GFR, 111 ml/min/1.73sq.m [facility] Comment on above: Performed By: #### C HEM7F, ACBC, LIVR, LIPA2 #### [place] [address] EST. GFR,Non 91 ml/min/1.73sq.m [facility] Comment on above: Performed By: #### C HEM7F, ACBC, LIVR, LIPA2 #### [place] [address] GFR Information Average GFR for 30-3 9 years old = 107. Normal [facility] Comment on above: Result Comment: Unload Associate balnca Kidney disease, GFR = <60. Kidney failure, GFR = <15. The GFR estimate is not adjusted for extreme body surface area or acute process, nor has it been validated for women or ethnic groups other than and . Testing performed at [place] [address] Performed By: #### C HEM7F, ACBC, LIVR, LIPA2 #### [place] [address] Glucose [Mass/Vol] 139 mg/dL High 70-100 [facility] Comment on above: Result Comment: NORMAL <100 mg/dL PREDIABETES 101-126 mg/dL DIABETES 126 mg/dL or higher Performed By: #### C HEM7F, ACBC, LIVR, LIPA2 #### [place] [address] Potassium [Moles/Vol] 3.6 mmol/L Normal 3.5-5.1 [facility] Comment on above: Performed By: #### C HEM7F, ACBC, LIVR, LIPA2 #### [place] [address] Sodium [Moles/Vol] 136 mmol/L Low 137-145 [facility] Comment on above: Performed By: #### C HEM7F, ACBC, LIVR, LIPA2 #### [place] [address] Urea nitrogen [Mass/Vol] 7 mg/dL Normal 7-20 [facility] Comment on above: Performed By: #### C HEM7F, ACBC, LIVR, LIPA2 #### [place] [address] CHEM 7 (LYTES,BUN,CREA,GLUC) on 04-19-2024 Chloride [Moles/Vol] 100 mmol/L [facility] Comment on above: Please note: Triglyc eride levels of 600mg/dL or higher may positively bias chloride results by approximately 2.1 mmol CO2 [Moles/Vol] 21 mmol/L [facility] Creatinine [Mass/Vol] 1.00 mg/dL [facility] GFR COMMENT Average GFR for 30-3 9 years old = 107. [facility] Comment on above: Chronic Kidney disea se, GFR = <60. Kidney failure, GFR = <15. The GFR estimate is not adjusted for extreme body surface area or acute process, nor has it been validated for women or ethnic groups other than and . Testing performed at [place], [place] [address] GFR/1.73 sq M.predicted among blacks MDRD (S/P/Bld) [Vol rate/Area] 111 mL/min/{1.73_m2} ml/min/1.73s q.m [facility] GFR/1.73 sq M.predicted among non-blacks MDRD (S/P/Bld) [Vol rate/Area] 91 mL/min/{1.73_m2} ml/min/1.73s q.m [facility] Glucose post fast [Mass/Vol] 139 mg/dL High [facility] Comment on above: NORMAL <100 mg/dL PREDIABETES 101-126 mg/dL DIABETES 126 mg/dL or higher Potassium [Moles/Vol] 3.6 mmol/L [facility] Sodium [Moles/Vol] 136 mmol/L Low [facility] Urea nitrogen [Mass/Vol] 7 mg/dL [facility] CT ABDOMEN/PELVIS WITH CONTR [place] 04-19-2024 CT ABDOMEN/PELVIS WITH CONTRAST CLINICAL HISTORY: ab pain LLQ. Nausea. EXAMINATION: Enhanced CT scan of the abdomen and pelvis: 04/19/2024. COMPARISON: Unenhanced CT scan of the abdomen and pelvis: 07/26/2018. TECHNIQUE: 4 mm axial images from lung bases through ischial tuberosities following administration of intravenous contrast were obtained. No oral contrast was utilized. Sagittal, coronal reconstructions were performed. CT dose reduction technique was used, including Automated Exposure Control. FINDINGS: There are no focal abnormalities of the visualized lung bases. The heart size seems normal. CT ABDOMEN: There is a small sliding-type hiatus hernia. The liver is homogeneously low in attenuation, compatible with fatty liver without discrete lesions. Spleen, gallbladder, adrenal glands, kidneys appeared normal. The pancreas demonstrates mild edematous appearance with induration of peripancreatic fat extending into the left anterior pararenal space, along the Gerota's fascia, as well as lateral conal fascia. The pancreas enhances normally. The abdominal aorta has normal caliber. There is no retroperitoneal or mesenteric adenopathy. The bowel loops are of normal caliber. Appendix appears normal. CT PELVIS: There is no ureterolithiasis. There is no pelvic adenopathy. No discrete pockets of fluid collections are seen. Images on bone windows demonstrate no gross abnormalities. IMPRESSION: 1. Findings compatible with acute pancreatitis without necrosis of the pancreas. 2. Normal appendix. 3. No nephro or ureterolithiasis. 4. Fatty liver. 5. Small sliding-type hiatus hernia. Normal [facility] CT Abdomen and Pelvis W cont rast Nandini 04-19-2024 IMPRESSION: 1. Findings compatible with acute pancreatitis without necrosis of the pancreas. 2. Normal appendix. 3. No nephro or ureterolithiasis. 4. Fatty liver. 5. Small sliding-type hiatus hernia. RADIOLOGY CLINICAL HISTORY: ab pain LLQ. Nausea. EXAMINATION: Enhanced CT scan of the abdomen and pelvis: 04/19/2024. COMPARISON: Unenhanced CT scan of the abdomen and pelvis: 07/26/2018. TECHNIQUE: 4 mm axial images from lung bases through ischial tuberosities following administration of intravenous contrast were obtained. No oral contrast was utilized. Sagittal, coronal reconstructions were performed. CT dose reduction technique was used, including Automated Exposure Control. FINDINGS: There are no focal abnormalities of the visualized lung bases. The heart size seems normal. CT ABDOMEN: There is a small sliding-type hiatus hernia. The liver is homogeneously low in attenuation, compatible with fatty liver without discrete lesions. Spleen, gallbladder, adrenal glands, kidneys appeared normal. The pancreas demonstrates mild edematous appearance with induration of peripancreatic fat extending into the left anterior pararenal space, along the Gerota's fascia, as well as lateral conal fascia. The pancreas enhances normally. The abdominal aorta has normal caliber. There is no retroperitoneal or mesenteric adenopathy. The bowel loops are of normal caliber. Appendix appears normal. CT PELVIS: There is no ureterolithiasis. There is no pelvic adenopathy. No discrete pockets of fluid collections are seen. Images on bone windows demonstrate no gross abnormalities. RADIOLOGY Abdi Del Rio MD, PhD - 04/19/2024 CLINICAL HISTORY: ab pain LLQ. Nausea. EXAMINATION: Enhanced CT scan of the abdomen and pelvis: 04/19/2024. COMPARISON: Unenhanced CT scan of the abdomen and pelvis: 07/26/2018. TECHNIQUE: 4 mm axial images from lung bases through ischial tuberosities following administration of intravenous contrast were obtained. No oral contrast was utilized. Sagittal, coronal reconstructions were performed. CT dose reduction technique was used, including Automated Exposure Control. FINDINGS: There are no focal abnormalities of the visualized lung bases. The heart size seems normal. CT ABDOMEN: There is a small sliding-type hiatus hernia. The liver is homogeneously low in attenuation, compatible with fatty liver without discrete lesions. Spleen, gallbladder, adrenal glands, kidneys appeared normal. The pancreas demonstrates mild edematous appearance with induration of peripancreatic fat extending into the left anterior pararenal space, along the Gerota's fascia, as well as lateral conal fascia. The pancreas enhances normally. The abdominal aorta has normal caliber. There is no retroperitoneal or mesenteric adenopathy. The bowel loops are of normal caliber. Appendix appears normal. CT PELVIS: There is no ureterolithiasis. There is no pelvic adenopathy. No discrete pockets of fluid collections are seen. Images on bone windows demonstrate no gross abnormalities. IMPRESSION IMPRESSION: 1. Findings compatible with acute pancreatitis without necrosis of the pancreas. 2. Normal appendix. 3. No nephro or ureterolithiasis. 4. Fatty liver. 5. Small sliding-type hiatus hernia. [facility] Radiology Study observation (narrative) [facility] CT Abdomen and Pelvis W cont rast IVOrdered By: Abdi Del Rio on 04-19-2024 [facility] Work Phone: Critical Careon 04-19-2024 Akhil Ann MD 04/19/2024 2:59 PM Critical Care Performed by: Akhil Ann MD Authorized by: Akhil Ann MD Total critical care time: 15 minutes Critical care was time spent personally by me on the following activities: examination of patient and pulse oximetry. [facility] ED Prov Noteon 04-19-2024 ED Prov Note [facility] EMERGENCY DEPARTMENT ATTENDING NOTE: NAME: Yu Younger CSN: [id number] 33 y.o. PCP: Justin Pearce MD History: Chief Complaint: Abdominal Pain HPI: 33-year-old male daily drinker presents to the emergency department for evaluation of diffuse abdominal pain predominantly in epigastric region with radiation to the back that is been present for the past couple days worsening in nature. Patient is reporting associated symptoms of nausea and vomiting. No specific alleviating or aggravating factors. Patient states that he drinks daily last drink was yesterday evening. Patient states he was evaluated at another ER and was told to come in here for further evaluation. Patient states that he has a lot of pain and requesting pain medications. PMHx: Past Medical History: Diagnosis Date Seizures (HCC) PMSx: History reviewed. No pertinent surgical history. FAM. Hx: History reviewed. No pertinent family history. SOC. 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 Social Drivers of Health Financial Resource Strain: Not on File (02/09/2019) Received from [employer] Financial Resource Strain Financial Resource Strain: 0 Food Insecurity: Not on File (02/09/2019) Received from [employer] Food Insecurity Food: 0 Transportation Needs: Not on File (02/09/2019) Received from [employer] Transportation Needs Transportation: 0 Physical Activity: Not on File (02/09/2019) Received from [employer] Physical Activity Physical Activity: 0 Stress: Not on File (02/09/2019) Received from [employer] Stress Stress: 0 Social Connections: Not on File (02/09/2019) Received from [employer] Social Connections Social Connections and Isolation: 0 Housing Stability: Not on File (02/09/2019) Received from [employer] Housing Stability Housin MEDs: Previous Medications Medication Sig amitriptyline (ELAVIL) 75 MG tablet Take 1 (one) tablet (75 mg total) by mouth nightly for 7 days . cloNIDine HCL (CATAPRES) 0.1 MG tablet Take 1 (one) tablet (0.1 mg total) by mouth 2 (two) times a day for 7 days . gabapentin (NEURONTIN) 400 MG capsule Take 1 (one) capsule (400 mg total) by mouth every 8 (eight) hours (Days supply per fill: 30 day supply . methadone (DOLOPHINE) 10 mg/mL solution Take 18 mL (180 mg total) by mouth once daily Per Patient Report Reasons: opioid use disorder. rOPINIRole (REQUIP) 0.5 MG tablet Take 1 (one) tablet (0.5 mg total) by mouth nightly . ALL: Allergies Allergen Reactions Keppra [Levetiracetam] Physical Exam: Patient Vitals for the past 24 hrs: BP Temp Temp src Pulse Resp SpO2 Height Weight 04/19/24 1422 -- -- -- -- -- -- 5' 8 74.8 kg (165 lb) 11/03/24 1421 (!) 174/91 98 degrees F (36.7 degrees C) Oral (!) 115 (!) 25 98 % -- -- Physical Exam Vitals and nursing note reviewed. Constitutional: General: He is awake. Comments: Anxious and diaphoretic HENT: Head: Normocephalic and atraumatic. Nose: Nose normal. Eyes: General: Lids are normal. No scleral icterus. Cardiovascular: Rate and Rhythm: Tachycardia present. Pulmonary: Effort: Pulmonary effort is normal. No accessory muscle usage or respiratory distress. Abdominal: Comments: Diffusely tender to palpation Skin: General: Skin is warm. Capillary Refill: Capillary refill takes less than 2 seconds. Neurological: Mental Status: He is alert and oriented to person, place, and time. Laboratory & Radiological Imaging (if done): Labs Reviewed MAGNESIUM LEVEL PHOSPHORUS No orders to display Procedures: Critical Care Performed by: Akhil Ann MD Authorized by: Akhil Ann MD Total critical care time: 15 minutes Critical care was time spent personally by me on the following activities: examination of patient and pulse oximetry. ED Course / Medical Decision Making: I did personally review Yu's past medical history, surgical history, social history, as well as family history (when relevant). After reviewing the items above, I did look at previous medical documentation. Social conditions impacting the patients care are: Unknown Some Differential Diagnoses Include: Pancreatitis cholecystitis alcohol withdrawal Labs/Imaging: Lipase level elevated. Transaminitis. EtOH positive ED course: Patient presents the emergency department with history and exam concerning for acute pancreatitis. Patient is a daily drinker and symptoms likely secondary (more content not included)... Normal [facility] HEPATIC FUNCTION PANELon Albumin [Mass/Vol] 4.5 g/dL [facility] ALP [Catalytic activity/Vol] 239 U/L [facility] ALT [Catalytic activity/Vol] 153 U/L High [facility] Comment on above: Testing performed at [facility], [place], [place] [address] AST [Catalytic activity/Vol] 371 U/L [facility] Bilirubin [Mass/Vol] 0.9 mg/dL [facility] Bilirubin.direct [Mass/Vol] 0.6 mg/dL [facility] Protein [Mass/Vol] 7.9 g/dL [facility] LACTIC ACID, PLASMAon 2023 LACTIC ACID, PLASMA 1.7 mmol/L Normal 0.6-2.0 [facility] Comment on above: Performed By: #### L [id number] #### [facility] [address] [place] [address] Dallin Donahue M.D. [id number] LIPASEon 04-19-2024 Interpretation and review of laboratory results Abnormal [facility] Lipase [Catalytic activity/Vol] 4914 U/L Critically high 23 - 300 U/L [facility] Comment on above: Result called to kavita d back by: MARIBEL GOOD 04/19/2024 @ 04:47byACL Testing performed at [address] LIPASE,SERUMon 04-19-2024 LIPASE,SERUM 4914 U/L Critically high 23-300 [facility] Comment on above: Result Comment: Resu lt called to read back by: MARIBEL GOOD 04/19/2024 @ 04:47byACL Testing performed at [place] [address] Performed By: #### C HEM7F, ACBC, LIVR, LIPA2 #### [place] [address] LIVER PANELon 04-19-2024 Albumin [Mass/Vol] 4.5 g/dL Normal 3.5-5.0 [facility] Comment on above: Performed By: #### C HEM7F, ACBC, LIVR, LIPA2 #### [place] [address] ALP [Catalytic activity/Vol] 239 U/L High 38-126 [facility] Comment on above: Performed By: #### C HEM7F, ACBC, LIVR, LIPA2 #### [place] [address] ALT [Catalytic activity/Vol] 153 U/L High <50 [facility] Comment on above: Result Comment: Test ing performed at [place] [address] Performed By: #### C HEM7F, ACBC, LIVR, LIPA2 #### Testing performed at [address] [address] AST [Catalytic activity/Vol] 371 U/L High 17-59 [facility] Comment on above: Performed By: #### C HEM7F, ACBC, LIVR, LIPA2 #### Testing performed at [address] [address] Bilirubin [Mass/Vol] 0.9 mg/dL Normal 0.2-1.3 [facility] Comment on above: Performed By: #### C HEM7F, ACBC, LIVR, LIPA2 #### Testing performed at [address] [address] Bilirubin.indirect [Mass/Vol] 0.6 mg/dL High 0-0.4 [facility] Comment on above: Performed By: #### C HEM7F, ACBC, LIVR, LIPA2 #### Testing performed at [address] [address] Protein [Mass/Vol] 7.9 g/dL Normal 6.3-8.2 [facility] Comment on above: Performed By: #### C HEM7F, ACBC, LIVR, LIPA2 #### Testing performed at [address] [address] Lactate [Moles/Vol]on 2023 Interpretation and review of laboratory results Normal [facility] Lactic Acid, Plasmaon 2023 Lactate [Moles/Vol] 1.7 mmol/L 0.6 - 2. 0 mmol/L [facility] MAGNESIUM LEVELon 04-19-2024 Magnesium [Mass/Vol] 1.4 mg/dL Low 1.6-2.4 [facility] Comment on above: Performed By: #### L [id number] #### LAB [address] [place], [place] [address] Dallin Donahue M.D. [id number] Magnesium Levelon 04-19-2024 Magnesium [Mass/Vol] 1.4 mg/dL Low 1.6 - 2 .4 mg/dL [facility] No Panel Informationon 04-19 Extra Tube Hold for add-ons. [facility] Comment on above: Auto resulted. [facility] Interpretation and review of laboratory results Abnormal [facility] Interpretation and review of laboratory results Abnormal [facility] PHOSPHORUSon 04-19-2024 Phosphate [Mass/Vol] 2.5 mg/dL Low 2.7-4.5 [facility] Comment on above: Performed By: #### L [id number] #### [facility] [address] [place] [address] Dallin Donahue M.D. [id number] Phosphoruson 04-19-2024 Phosphate [Mass/Vol] 2.5 mg/dL Low 2.7 - 4 .5 mg/dL [facility] TRIGLYCERIDESon 04-19-2024 Triglyceride [Mass/Vol] 77 mg/dL Normal 30-150 [facility] Comment on above: Result Comment: [employer] on[employer] Cholesterol Education Program Guidelines: Triglyceride Normal: <150 mg/dL Borderline High: 150-199 mg/dL High: 200-499 mg/dL Very High: greater than or equal to 500 mg/dL Performed By: #### 4 [id number] #### LAB [address] [place] [address] Dallin Donahue M.D. [id number] Triglyceride [Mass/Vol]on Interpretation and review of laboratory results Normal [facility] Triglycerideson 04-19-2024 Triglyceride [Mass/Vol] 77 mg/dL 30 - 150 mg/dL [facility] Comment on above: National Cholesterol Education Program Guidelines: Triglyceride Normal: <150 mg/dL Borderline High: 150-199 mg/dL High: 200-499 mg/dL Very High: greater than or equal to 500 mg/dL CBC WITH AUTO DIFFERENTIALon 01-27-2024 AUTO NRBC 0.0 % Normal [facility] Comment on above: Performed By: #### L [id number] #### [facility] [address] [place] [address] Dallin Donahue M.D. [id number] AUTO NRBC ABS COUNT 0.00 K/mcL Normal 0.00-0.00 [facility] Comment on above: Performed By: #### L [id number] #### [facility] [address] [place] [address] Dallin Donahue M.D. [id number] BASOPHILS ABSOLUTE COUNT 0.04 K/mcL Normal 0.00-0.30 [facility] Comment on above: Performed By: #### L [id number] #### LAB [address] [place] [address] Dallin Donahue M.D. [id number] Basophils/100 WBC (Bld) 0.4 % Normal [facility] Comment on above: Performed By: #### L [id number] #### LAB [address] [place] [address] Dallin Donahue M.D. [id number] Eosinophils (Bld) [#/Vol] 0.08 10*3/uL Normal 0.00-0.50 [facility] Comment on above: Performed By: #### L [id number] #### LAB [address] [place] [address] Dallin Donahue M.D. [id number] Eosinophils/100 WBC (Bld) 0.9 % Normal [facility] Comment on above: Performed By: #### L [id number] #### LAB [address] [place] [address] Dallin Donahue M.D. [id number] Erythrocyte distribution width (RBC) [Ratio] 12.5 % Normal 11.6-14.8 [facility] Comment on above: Performed By: #### L [id number] #### LAB [address] [place] [address] Dallin Donahue M.D. [id number] Hematocrit (Bld) [Volume fraction] 40.6 % Low 41.0-53.0 [facility] Comment on above: Performed By: #### L [id number] #### LAB [address] [place] [address] Dallin Donahue M.D. [id number] Hemoglobin (Bld) [Mass/Vol] 14.0 g/dL Normal 13.5-17.5 [facility] Comment on above: Performed By: #### L [id number] #### LAB [address] [place] [address] Dallin Donahue M.D. [id number] IG ABSOLUTE 0.03 K/mcL Normal 0.00-0.30 [facility] Comment on above: Performed By: #### L [id number] #### LAB [address] [place] [address] Dallin Donahue M.D. [id number] IG PERCENT 0.30 % Normal [facility] Comment on above: Result Comment: The IG parameter is the percentage of metamyelocytes, myelocytes and promyelocytes. An immature granulocyte count (IG) of 1% or more suggests the possibility of infection, an IG count of 3% is very likely related to an infection. Performed By: #### L [id number] #### LAB [address] [place] [address] Dallin Donahue M.D. [id number] Lymphocytes (Bld) [#/Vol] 3.06 10*3/uL Normal 0.90-4.00 [facility] Comment on above: Performed By: #### L [id number] #### LAB [address] [place] [address] Dallin Donahue M.D. [id number] Lymphocytes/100 WBC (Bld) 34.3 % Normal [facility] Comment on above: Performed By: #### L [id number] #### LAB [address] [place] [address] Dallin Donahue M.D. [id number] MCH (RBC) [Entitic mass] 31.0 pg Normal 26.0-34.0 [facility] Comment on above: Performed By: #### L [id number] #### LAB [address] [place] [address] Dallin Donahue M.D. [id number] MCV (RBC) [Entitic vol] 89.8 fL Normal 80.0-100.0 [facility] Comment on above: Performed By: #### L [id number] #### LAB [address] [place] [address] Dallin Donahue M.D. [id number] MEAN CORPUSCULAR HEMOGLOBIN CONC 34.5 g/dL Normal 31.0-37.0 [facility] Comment on above: Performed By: #### L [id number] #### LAB [address] [place] [address] Dallin Donahue M.D. [id number] Monocytes (Bld) [#/Vol] 1.13 10*3/uL High 0.30-0.90 [facility] [facility] Comment on above: Performed By: #### L [id number] #### LAB [address] [address] Dallin Donahue M.D. [id number] Monocytes/100 WBC (Bld) 12.7 % Normal [facility] Comment on above: Performed By: #### L [id number] #### LAB [address] [address] Dallin Donahue M.D. [id number] NEUTROPHILS ABSOLUTE COUNT 4.57 K/mcL Normal 1.70-7.00 [facility] Comment on above: Performed By: #### L [id number] #### LAB [address] [address] Dallin Donahue M.D. [id number] Neutrophils/100 WBC (Bld) 51.4 % Normal [facility] Comment on above: Performed By: #### L [id number] #### LAB [address] [address] Dallin Donahue M.D. [id number] Platelet mean volume (Bld) [Entitic vol] 10.7 fL Normal 9.4-12.4 [facility] Comment on above: Performed By: #### L [id number] #### LAB [address] [address] Dallin Donahue M.D. [id number] Platelets (Bld) [#/Vol] 208 10*3/uL Normal 150-400 [facility] Comment on above: Performed By: #### L [id number] #### LAB [address] [place] [address] Dallin Donahue M.D. [id number] RBC (Bld) [#/Vol] 4.52 10*6/uL Normal 4.50-5.90 [facility] Comment on above: Performed By: #### L [id number] #### [facility] [address] [address] Dallin Donahue M.D. [id number] WBC (Bld) [#/Vol] 8.91 10*3/uL Normal 4.50-11.00 [facility] Comment on above: Performed By: #### L [id number] #### [facility] [address] [address] Dallin Donahue M.D. [id number] CHEM 01-27-2024 Anion gap [Moles/Vol] 20 mmol/L Normal 10-20 [facility] Comment on above: Order Comment: [facility] has implemented the eGFR calculation approach that does not have a coefficient for race that conforms to the NKF-ASN Task Force Recommendations. Performed By: #### L [id number] #### [facility] [address] [address] Dallin Donahue M.D. [id number] Chloride [Moles/Vol] 101 mmol/L Normal 98-108 [facility] Comment on above: Order Comment: [facility] has implemented the eGFR calculation approach that does not have a coefficient for race that conforms to the NKF-ASN Task Force Recommendations. Performed By: #### L [id number] #### [facility] [address] [address] Dallin Donahue M.D. [id number] Creatinine [Mass/Vol] 1.63 mg/dL High 0.50-1.30 [facility] Comment on above: Order Comment: [facility] has implemented the eGFR calculation approach that does not have a coefficient for race that conforms to the NKF-ASN Task Force Recommendations. Performed By: #### L [id number] #### [facility] [address] [address] Dallin Donahue M.D. [id number] EGFR 57 mL/min/1.73 m2 Low >=60 [facility] Comment on above: Order Comment: [facility] has implemented the eGFR calculation approach that does not have a coefficient for race that conforms to the NKF-ASN Task Force Recommendations. Result Comment: Karoline mated GFR was calculated using the 2020 CKD-EPI creatinine equation. Performed By: #### L [id number] #### [facility] [address] [address] Dallin Donahue M.D. [id number] Glucose [Mass/Vol] 80 mg/dL Normal 65-99 [facility] Comment on above: Order Comment: [facility] has implemented the eGFR calculation approach that does not have a coefficient for race that conforms to the NKF-ASN Task Force Recommendations. Performed By: #### L [id number] #### [facility] [address] [address] Dallin Donahue M.D. [id number] HCO3 (Bld) [Moles/Vol] 19 mmol/L Low 21-32 [facility] Comment on above: Order Comment: [facility] has implemented the eGFR calculation approach that does not have a coefficient for race that conforms to the NKF-ASN Task Force Recommendations. Performed By: #### L [id number] #### [facility] [address] [address] Dallin Donahue M.D. [id number] Potassium [Moles/Vol] 3.9 mmol/L Normal 3.5-5.1 [facility] Comment on above: Order Comment: [facility] has implemented the eGFR calculation approach that does not have a coefficient for race that conforms to the NKF-ASN Task Force Recommendations. Performed By: #### L [id number] #### [facility] [address] [address] Dallin Donahue M.D. [id number] Sodium [Moles/Vol] 136 mmol/L Normal 135-145 [facility] Comment on above: Order Comment: [facility] has implemented the eGFR calculation approach that does not have a coefficient for race that conforms to the NKF-ASN Task Force Recommendations. Performed By: #### L [id number] #### [facility] [address] [address] Dallin Donahue M.D. [id number] Urea nitrogen [Mass/Vol] 27 mg/dL High 8-25 [facility] Comment on above: Order Comment: [facility] has implemented the eGFR calculation approach that does not have a coefficient for race that conforms to the NKF-ASN Task Force Recommendations. Performed By: #### L [id number] #### [facility] [address] [address] Dallin Donahue M.D. [id number] Urea nitrogen/Creatinine [Mass ratio] 16.6 mg/mg Normal 10.0-20.0 [facility] Comment on above: Order Comment: [facility] has implemented the eGFR calculation approach that does not have a coefficient for race that conforms to the NKF-ASN Task Force Recommendations. Performed By: #### L [id number] #### [facility] [address] [address] Dallin Donahue M.D. [id number] CHLAMYDIA/GONORRHOEAE AMPLIF IED RNAon 01-27-2024 CHLAMYDIA/GONORRHOEAE AMPLIFIED RNA CHLAMYDIA TRACHOMATIS AMPLIFIED RNA NEGATIVE NEISSERIA GONORRHOEAE AMPLIFIED RNA NEGATIVE Normal Negative [facility] Comment on above: Performed By: #### L [id number] #### [facility] [address] [place] [address] David Rocha M.D. [id number] CPKon 01-27-2024 CPK 308 U/L High 60-225 [facility] Comment on above: Performed By: #### L [id number] #### [facility] [address] [address] Dallin Donahue M.D. [id number] DRUGS OF ABUSE SCREEN, URINE on 01-27-2024 AMPHETAMINE SCREEN, URINE Positive Abnormal None Detected [facility] Comment on above: Order Comment: Scree n results should be used for treatment purposes only.Specimen will be kept for 2 weeks, if the sample is adequate. Confirmation testing can be initiated by calling the lab within 2 weeks. Result Comment: Urin e Amphetamine Cutoff: < 1000 ng/mL = None Detected Performed By: #### L [id number] #### [facility] [address] [address] Dallin Donahue M.D. [id number] BARBITURATE SCREEN URINE Not detected Normal None Detected [facility] Comment on above: Order Comment: Scree n results should be used for treatment purposes only.Specimen will be kept for 2 weeks, if the sample is adequate. Confirmation testing can be initiated by calling the lab within 2 weeks. Result Comment: Urin e Barbiturates Cutoff: < 200 ng/mL = None Detected Performed By: #### L [id number] #### [facility] [address] [place] [address] Dallin Donahue M.D. [id number] BENZODIAZEPINE SCREEN, URINE Not detected Normal None Detected [facility] Comment on above: Order Comment: Scree n results should be used for treatment purposes only.Specimen will be kept for 2 weeks, if the sample is adequate. Confirmation testing can be initiated by calling the lab within 2 weeks. Result Comment: Urin e Benzodiazepine Cutoff: < 200 ng/mL = None Detected Performed By: #### L [id number] #### [facility] [address] [place] [address] Dallin Donahue M.D. [id number] BUPRENORPHINE, URINE Not detected Normal None Detected [facility] Comment on above: Order Comment: Scree n results should be used for treatment purposes only.Specimen will be kept for 2 weeks, if the sample is adequate. Confirmation testing can be initiated by calling the lab within 2 weeks. Result Comment: Urin e Buprenorphine Cutoff: < 5 ng/mL = None Detected Performed By: #### L [id number] #### [facility] [address] [place] [address] Dallin Donahue M.D. [id number] CANNABINOID SCREEN URINE Not detected Normal None Detected [facility] Comment on above: Order Comment: Scree n results should be used for treatment purposes only.Specimen will be kept for 2 weeks, if the sample is adequate. Confirmation testing can be initiated by calling the lab within 2 weeks. Result Comment: Urin e Cannabinoids Cutoff: < 50 ng/mL = None Detected Performed By: #### L [id number] #### [facility] [address] [address] Dallin Donahue M.D. [id number] COCAINE, SCREEN URINE Not detected Normal None Detected [facility] Comment on above: Order Comment: Scree n results should be used for treatment purposes only.Specimen will be kept for 2 weeks, if the sample is adequate. Confirmation testing can be initiated by calling the lab within 2 weeks. Result Comment: Urin e Cocaine Cutoff: < 300 ng/mL = None Detected Performed By: #### L [id number] #### [facility] [address] [address] Dallin Donahue M.D. [id number] FENTANYL, URINE Not detected Normal None Detected [facility] Comment on above: Order Comment: Scree n results should be used for treatment purposes only.Specimen will be kept for 2 weeks, if the sample is adequate. Confirmation testing can be initiated by calling the lab within 2 weeks. Result Comment: Urin e Fentanyl Cutoff: < 1 ng/mL = None Detected Performed By: #### L [id number] #### [facility] [address] [address] Dallin Donahue M.D. [id number] METHADONE SCREEN, URINE Positive Abnormal None Detected [facility] Comment on above: Order Comment: Scree n results should be used for treatment purposes only.Specimen will be kept for 2 weeks, if the sample is adequate. Confirmation testing can be initiated by calling the lab within 2 weeks. Result Comment: Urin e Methadone Cutoff: < 300 ng/mL = None Detected Performed By: #### L [id number] #### [facility] [address] [address] Dallin Donahue M.D. [id number] OPIATE SCREEN URINE Not detected Normal None Detected [facility] Comment on above: Order Comment: Scree n results should be used for treatment purposes only.Specimen will be kept for 2 weeks, if the sample is adequate. Confirmation testing can be initiated by calling the lab within 2 weeks. Result Comment: Urin e Opiates Cutoff: < 300 ng/mL = None Detected Performed By: #### L [id number] #### [facility] LAB [address] [place], [place] [address] Dallin Donahue M.D. [id number] OXYCODONE SCREEN, URINE Not detected Normal None Detected [facility] Comment on above: Order Comment: Scree n results should be used for treatment purposes only.Specimen will be kept for 2 weeks, if the sample is adequate. Confirmation testing can be initiated by calling the lab within 2 weeks. Result Comment: Urin e Oxycodone Cutoff: < 100 ng/mL = None Detected Performed By: #### L [id number] #### [facility] LAB [address] [place], [place] [address] Dallin Donahue M.D. [id number] ED Prov Noteon 01-27-2024 ED Prov Note [facility] EM[facility]Y [facility] ATTENDING NOTE: NAME: Yu Younger CSN: [id number] 33 y.o. PCP: Justin Pearce MD History: Chief Complaint: Seizures HPI: The history was obtained from the patient and EMS. Yu is a 33 y.o. male with a history of polysubstance abuse and seizures who presents by EMS from the [facility] with a chief complaint of Seizures. Reportedly, EMS was called I to the A for shaking or seizure-like activity. Patient states he is unable to recall the events leading to the emergency department visit. He states that he was writing in a folder, and the next thing he knew, he was in an ambulance. He currently feels similar to how he felt when he was here a few weeks ago for methamphetamine use, but denies using any recreational drugs today. States he has taken his regular prescription methadone dose today only. He tells me his urine has been darker than usual today, and it also moore when he pees. PMHx: Past Medical History: Diagnosis Date Seizures (HCC) PMSx: History reviewed. No pertinent surgical history. FAM. Hx: History reviewed. No pertinent family history. SOC. Hx: Social History Socioeconomic History Marital status: Single Tobacco Use Smoking status: Some Days Current packs/day: 0.50 Average packs/day: 0.5 packs/day for 2.6 years (1.3 ttl pk-yrs) Types: Cigarettes Start date: 2021 Smokeless tobacco: Never Vaping Use Vaping status: Never Used Substance and Sexual Activity Alcohol use: No Drug use: No Comment: prescribed Methadone Social Determinants of Health Financial Resource Strain: Not on File (02/09/2019) Received from [employer] Financial Resource Strain Financial Resource Strain: 0 Food Insecurity: Not on File (02/09/2019) Received from [employer] Food Insecurity Food: 0 Transportation Needs: Not on File (02/09/2019) Received from [employer] Transportation Needs Transportation: 0 Physical Activity: Not on File (02/09/2019) Received from [email or web address] Physical Activity Physical Activity: 0 Stress: Not on File (02/09/2019) Received from [employer] Stress Stress: 0 Social Connections: Not on File (02/09/2019) Received from [employer] Social Connections Social Connections and Isolation: 0 Housing Stability: Not on File (02/09/2019) Received from [employer] Housing Stability Housin MEDs: Previous Medications Medication Sig amitriptyline (ELAVIL) 75 MG tablet Take 1 (one) tablet (75 mg total) by mouth nightly for 7 days . cloNIDine HCL (CATAPRES) 0.1 MG tablet Take 1 (one) tablet (0.1 mg total) by mouth 2 (two) times a day for 7 days . gabapentin (NEURONTIN) 400 MG capsule Take 1 (one) capsule (400 mg total) by mouth every 8 (eight) hours (Days supply per fill: 30 day supply . methadone (DOLOPHINE) 10 mg/mL solution Take 18 mL (180 mg total) by mouth once daily Per Patient Report Reasons: opioid use disorder. rOPINIRole (REQUIP) 0.5 MG tablet Take 1 (one) tablet (0.5 mg total) by mouth nightly . ALL: Allergies Allergen Reactions Keppra [Levetiracetam] ROS: Review of Systems Constitutional: Negative for chills, fever and unexpected weight change. HENT: Negative for ear pain, rhinorrhea and sore throat. Eyes: Negative for pain, redness and visual disturbance. Respiratory: Negative for cough, shortness of breath and wheezing. Cardiovascular: Negative for chest pain, palpitations and leg swelling. Gastrointestinal: Negative for abdominal pain, constipation, diarrhea, nausea and vomiting. Genitourinary: Positive for dysuria. Negative for hematuria and urgency. Musculoskeletal: Negative for arthralgias and joint swelling. Skin: Negative for rash. Neurological: Positive for seizures. Negative for dizziness and headaches. All other systems reviewed and are negative. Positives and pertinent negatives as per HPI. All other systems were reviewed and are negative. Physical Exam: Patient Vitals for the past 24 hrs: BP Temp Pulse Resp SpO2 01/27/24 0330 (!) 123/90 -- (!) 104 (!) 19 96 % 01/27/24 0300 134/88 -- 92 (!) 21 100 % 01/27/24 0200 (!) 130/92 -- (!) 104 18 100 % 01/27/24 0137 -- -- -- -- 100 % 01/27/24 0136 (!) 161/95 98 degrees F (36.7 degrees C) -- -- -- 01/27/24 0132 -- -- (!) 114 (!) 19 -- Physical Exam Vitals reviewed. Constitutional: Appearance: Normal appearance. He is well-developed. HENT: Head: Normocephalic and atraumatic. Nose: Nose normal. Mouth/Throat: Mouth: Mucous membranes are moist. Pharynx: Uvula midline. Eyes: General: No scleral icterus. Extraocular Movements: Extraocular movements intact. Pupils: Pupils are equal, round, and reactive to light. Cardiovascular: Rate and Rhythm: Normal rate and regular rhythm. Pulses: Normal pulses. Heart sounds: Normal heart sounds. Musculoskeletal: General: No tenderness. Cervical back: Neck supple. No rigidity. Pulmonary: Effort: Pulmonary effort is normal. (more content not included)... Normal [facility] TRICHOMONAS VAGINALIS AMPLIF IED RNAon 01-27-2024 TRICHOMONAS VAGINALIS AMPLIFIED RNA Negative Normal Negative [facility] Comment on above: Performed By: #### L [id number] #### [facility] LAB [address] [place], [place] [address] Dallin Donahue M.D. [id number] URINALYSISon 01-27-2024 BACTERIA, URINE Rare Abnormal None Seen [facility] Comment on above: Order Comment: Micro scopic examination is performed on all urinalysis samples and only positive findings are reported. The test for blood on the chemical analytic portion of urinalysis may also be positive due to hemoglobinuria and myoglobinuria and if red blood cells are present they are quantified by microscopic examination. Performed By: #### L [id number] #### [facility] [address] [address] Dallin Donahue M.D. [id number] BILIRUBIN, URINE Negative Normal Negative [facility] [place] [facility] Comment on above: Order Comment: Micro scopic examination is performed on all urinalysis samples and only positive findings are reported. The test for blood on the chemical analytic portion of urinalysis may also be positive due to hemoglobinuria and myoglobinuria and if red blood cells are present they are quantified by microscopic examination. Performed By: #### L [id number] #### [facility] [address] [address] Dallin Donahue M.D. [id number] BLOOD, URINE Negative Normal Negative [facility] Comment on above: Order Comment: Micro scopic examination is performed on all urinalysis samples and only positive findings are reported. The test for blood on the chemical analytic portion of urinalysis may also be positive due to hemoglobinuria and myoglobinuria and if red blood cells are present they are quantified by microscopic examination. Performed By: #### L [id number] #### [facility] [address] [address] Dallin Donahue M.D. [id number] Clarity (U) Cloudy Abnormal Clear [facility] Comment on above: Order Comment: Micro scopic examination is performed on all urinalysis samples and only positive findings are reported. The test for blood on the chemical analytic portion of urinalysis may also be positive due to hemoglobinuria and myoglobinuria and if red blood cells are present they are quantified by microscopic examination. Performed By: #### L [id number] #### [facility] [address] [address] Dallin Donahue M.D. [id number] Color (U) Yellow Normal Colorless, Yellow [facility] Comment on above: Order Comment: Micro scopic examination is performed on all urinalysis samples and only positive findings are reported. The test for blood on the chemical analytic portion of urinalysis may also be positive due to hemoglobinuria and myoglobinuria and if red blood cells are present they are quantified by microscopic examination. Performed By: #### L [id number] #### [facility] [address] [address] Dallin Donahue M.D. [id number] Glucose Ql (U) Negative Normal Negative [facility] Comment on above: Order Comment: Micro scopic examination is performed on all urinalysis samples and only positive findings are reported. The test for blood on the chemical analytic portion of urinalysis may also be positive due to hemoglobinuria and myoglobinuria and if red blood cells are present they are quantified by microscopic examination. Performed By: #### L [id number] #### [facility] [address] [address] Dallin Donahue M.D. [id number] Hyaline casts LM Ql (Urine sed) >20 Abnormal 0-2 [facility] Comment on above: Order Comment: Micro scopic examination is performed on all urinalysis samples and only positive findings are reported. The test for blood on the chemical analytic portion of urinalysis may also be positive due to hemoglobinuria and myoglobinuria and if red blood cells are present they are quantified by microscopic examination. Performed By: #### L [id number] #### LAB [address] [address] Dallin Donahue M.D. [id number] Ketones Ql (U) 20 mg/dL Abnormal Negative [facility] Comment on above: Order Comment: Micro scopic examination is performed on all urinalysis samples and only positive findings are reported. The test for blood on the chemical analytic portion of urinalysis may also be positive due to hemoglobinuria and myoglobinuria and if red blood cells are present they are quantified by microscopic examination. Performed By: #### L [id number] #### [facility] [address] [address] Dallin Donahue M.D. [id number] Leukocyte esterase Test strip Ql (U) Negative Normal Negative [facility] Comment on above: Order Comment: Micro scopic examination is performed on all urinalysis samples and only positive findings are reported. The test for blood on the chemical analytic portion of urinalysis may also be positive due to hemoglobinuria and myoglobinuria and if red blood cells are present they are quantified by microscopic examination. Performed By: #### L [id number] #### LAB [address] [place], [place] [address] Dallin Donahue M.D. [id number] MUCUS, URINE Few Abnormal None Seen, Rare [facility] Comment on above: Order Comment: Micro scopic examination is performed on all urinalysis samples and only positive findings are reported. The test for blood on the chemical analytic portion of urinalysis may also be positive due to hemoglobinuria and myoglobinuria and if red blood cells are present they are quantified by microscopic examination. Performed By: #### L [id number] #### LAB [address] [id number] Dallin Donahue M.D. [id number] NITRITE, URINE Negative Normal Negative [facility] Comment on above: Order Comment: Micro scopic examination is performed on all urinalysis samples and only positive findings are reported. The test for blood on the chemical analytic portion of urinalysis may also be positive due to hemoglobinuria and myoglobinuria and if red blood cells are present they are quantified by microscopic examination. Performed By: #### L [id number] #### LAB [address] [place], [place] [address] Dallin Donahue M.D. [id number] pH (U) 5.5 [pH] Normal 5.0-7.0 [facility] Comment on above: Order Comment: Micro scopic examination is performed on all urinalysis samples and only positive findings are reported. The test for blood on the chemical analytic portion of urinalysis may also be positive due to hemoglobinuria and myoglobinuria and if red blood cells are present they are quantified by microscopic examination. Performed By: #### L [id number] #### [facility] [address] [place], [place] [address] Dallin Donahue M.D. [id number] Protein (U) [Mass/Vol] 30 mg/dL Abnormal Negative [facility] Comment on above: Order Comment: Micro scopic examination is performed on all urinalysis samples and only positive findings are reported. The test for blood on the chemical analytic portion of urinalysis may also be positive due to hemoglobinuria and myoglobinuria and if red blood cells are present they are quantified by microscopic examination. Result Comment: Fals e positive results may occur in urines with large amounts of hemoglobin, pH greater than 8.0, contrast medium, or disinfectants including ammonium compounds. Performed By: #### L [id number] #### [facility] [address] [address] Dallin Donahue M.D. [id number] RBC LM.HPF (Urine sed) [#/Area] 8 /[HPF] High 0-3 [facility] Comment on above: Order Comment: Micro scopic examination is performed on all urinalysis samples and only positive findings are reported. The test for blood on the chemical analytic portion of urinalysis may also be positive due to hemoglobinuria and myoglobinuria and if red blood cells are present they are quantified by microscopic examination. Performed By: #### L [id number] #### [facility] [address] [place], [place] [address] Dallin Donahue M.D. [id number] Specific gravity (U) [Rel density] 1.031 High 1.005-1.025 [facility] Comment on above: Order Comment: Micro scopic examination is performed on all urinalysis samples and only positive findings are reported. The test for blood on the chemical analytic portion of urinalysis may also be positive due to hemoglobinuria and myoglobinuria and if red blood cells are present they are quantified by microscopic examination. Performed By: #### L [id number] #### [facility] [address] [place], [place] [address] Dallin Donahue M.D. [id number] UROBILINOGEN, URINE 2.0 mg/dL Abnormal <2.0 [facility] Comment on above: Order Comment: Micro scopic examination is performed on all urinalysis samples and only positive findings are reported. The test for blood on the chemical analytic portion of urinalysis may also be positive due to hemoglobinuria and myoglobinuria and if red blood cells are present they are quantified by microscopic examination. Performed By: #### L [id number] #### [facility] [address] [place] [address] Dallin Donahue M.D. [id number] WBC LM.HPF (Urine sed) [#/Area] 4 /[HPF] Normal 0-5 [facility] Comment on above: Order Comment: Micro scopic examination is performed on all urinalysis samples and only positive findings are reported. The test for blood on the chemical analytic portion of urinalysis may also be positive due to hemoglobinuria and myoglobinuria and if red blood cells are present they are quantified by microscopic examination. Performed By: #### L [id number] #### [facility] [address] [place] [address] Dallin Donahue M.D. [id number] BASIC METABOLIC PANELon 07-2 Anion gap [Moles/Vol] 29 mmol/L High 10-20 [facility] Comment on above: Order Comment: [facility] has implemented the eGFR calculation approach that does not have a coefficient for race that conforms to the NKF-ASN Task Force Recommendations. Performed By: #### L [id number] #### [facility] [address] [place] [address] Dallin Donahue M.D. [id number] Calcium [Mass/Vol] 10.5 mg/dL High 8.4-10.2 [facility] Comment on above: Order Comment: [facility] has implemented the eGFR calculation approach that does not have a coefficient for race that conforms to the NKF-ASN Task Force Recommendations. Performed By: #### L [id number] #### [facility] [address] [place] [address] Dallin Donahue M.D. [id number] Chloride [Moles/Vol] 97 mmol/L Low 98-108 [facility] Comment on above: Order Comment: [facility] has implemented the eGFR calculation approach that does not have a coefficient for race that conforms to the NKF-ASN Task Force Recommendations. Performed By: #### L [id number] #### [facility] [address] [place] [address] Dallin Donahue M.D. [id number] Creatinine [Mass/Vol] 2.69 mg/dL High 0.50-1.30 [facility] Comment on above: Order Comment: [facility] has implemented the eGFR calculation approach that does not have a coefficient for race that conforms to the NKF-ASN Task Force Recommendations. Performed By: #### L [id number] #### [facility] [address] [place] [address] Dallin Donahue M.D. [id number] EGFR 31 mL/min/1.73 m2 Low >=60 [facility] Comment on above: Order Comment: [facility] has implemented the eGFR calculation approach that does not have a coefficient for race that conforms to the NKF-ASN Task Force Recommendations. Result Comment: Karoline mated GFR was calculated using the 2020 CKD-EPI creatinine equation. Performed By: #### L [id number] #### [facility] [address] [place] [address] Dallin Donahue M.D. [id number] Glucose [Mass/Vol] 107 mg/dL High 65-99 [facility] Comment on above: Order Comment: [facility] has implemented the eGFR calculation approach that does not have a coefficient for race that conforms to the NKF-ASN Task Force Recommendations. Performed By: #### L [id number] #### [facility] [address] [place] [address] Dallin Donahue M.D. [id number] HCO3 (Bld) [Moles/Vol] 14 mmol/L Low 21-32 [facility] Comment on above: Order Comment: [facility] has implemented the eGFR calculation approach that does not have a coefficient for race that conforms to the NKF-ASN Task Force Recommendations. Performed By: #### L [id number] #### [facility] [address] [place] [address] Dallin Donahue M.D. [id number] Potassium [Moles/Vol] 3.6 mmol/L Normal 3.5-5.1 [facility] Comment on above: Order Comment: [facility] has implemented the eGFR calculation approach that does not have a coefficient for race that conforms to the NKF-ASN Task Force Recommendations. Performed By: #### L [id number] #### [facility] [address] [place] [address] Dallin Donahue M.D. [id number] Sodium [Moles/Vol] 136 mmol/L Normal 135-145 [facility] Comment on above: Order Comment: [facility] has implemented the eGFR calculation approach that does not have a coefficient for race that conforms to the NKF-ASN Task Force Recommendations. Performed By: #### L [id number] #### [facility] [address] [place] [address] Dallin Donahue M.D. [id number] Urea nitrogen [Mass/Vol] 31 mg/dL High 8-25 [facility] Comment on above: Order Comment: [facility] has implemented the eGFR calculation approach that does not have a coefficient for race that conforms to the NKF-ASN Task Force Recommendations. Performed By: #### L [id number] #### [facility] [address] [place] [address] Dallin Donahue M.D. [id number] Urea nitrogen/Creatinine [Mass ratio] 11.5 mg/mg Normal 10.0-20.0 [facility] Comment on above: Order Comment: [facility] has implemented the eGFR calculation approach that does not have a coefficient for race that conforms to the NKF-ASN Task Force Recommendations. Performed By: #### L [id number] #### [facility] [address] [place] [address] Dallin Donahue M.D. [id number] CBC WITH AUTO DIFFERENTIALon 01-05-2024 AUTO NRBC 0.0 % Normal [facility] Comment on above: Performed By: #### L [id number] #### [facility] [address] [place] [address] Dallin Donahue M.D. [id number] AUTO NRBC ABS COUNT 0.00 K/mcL Normal 0.00-0.00 [facility] Comment on above: Performed By: #### L [id number] #### [facility] [address] [place] [address] Dallin Donahue M.D. [id number] BASOPHILS ABSOLUTE COUNT 0.08 K/mcL Normal 0.00-0.30 [facility] Comment on above: Performed By: #### L [id number] #### [facility] [address] [place] [address] Dallin Donahue M.D. [id number] Basophils/100 WBC (Bld) 0.8 % Normal [facility] Comment on above: Performed By: #### L [id number] #### [facility] [address] [place] [address] Dallin Donahue M.D. [id number] Eosinophils (Bld) [#/Vol] 0.01 10*3/uL Normal 0.00-0.50 [facility] Comment on above: Performed By: #### L [id number] #### [facility] [address] [place] [address] Dallin Donahue M.D. [id number] Eosinophils/100 WBC (Bld) 0.1 % Normal [facility] Comment on above: Performed By: #### L [id number] #### [facility] [address] [place] [address] Dallin Donahue M.D. [id number] Erythrocyte distribution width (RBC) [Ratio] 13.4 % Normal 11.6-14.8 [facility] Comment on above: Performed By: #### L [id number] #### [facility] [address] [place] [address] Dallin Donahue M.D. [id number] Hematocrit (Bld) [Volume fraction] 43.0 % Normal 41.0-53.0 [facility] Comment on above: Performed By: #### L [id number] #### [facility] [address] [place] [address] Dallin Donahue M.D. [id number] Hemoglobin (Bld) [Mass/Vol] 15.1 g/dL Normal 13.5-17.5 [facility] Comment on above: Performed By: #### L [id number] #### [facility] [address] [place] [address] Dallin Donahue M.D. [id number] IG ABSOLUTE 0.05 K/mcL Normal 0.00-0.30 [facility] Comment on above: Performed By: #### L [id number] #### [facility] [address] [place] [address] Dallin Donahue M.D. [id number] IG PERCENT 0.50 % Normal [facility] Comment on above: Result Comment: The IG parameter is the percentage of metamyelocytes, myelocytes and promyelocytes. An immature granulocyte count (IG) of 1% or more suggests the possibility of infection, an IG count of 3% is very likely related to an infection. Performed By: #### L [id number] #### [facility] [address] [place] [address] Dallin Donahue M.D. [id number] Lymphocytes (Bld) [#/Vol] 1.12 10*3/uL Normal 0.90-4.00 [facility] Comment on above: Performed By: #### L [id number] #### [facility] [address] [place] [address] Dallin Donahue M.D. [id number] Lymphocytes/100 WBC (Bld) 10.5 % Normal [facility] Comment on above: Performed By: #### L [id number] #### [facility] [address] [place] [address] Dallin Donahue M.D. [id number] MCH (RBC) [Entitic mass] 32.8 pg Normal 26.0-34.0 [facility] Comment on above: Performed By: #### L [id number] #### [facility] [address] [place] [address] Dallin Donahue M.D. [id number] MCV (RBC) [Entitic vol] 93.3 fL Normal 80.0-100.0 [facility] Comment on above: Performed By: #### L [id number] #### [facility] [address] [place] [address] Dallin Donahue M.D. [id number] MEAN CORPUSCULAR HEMOGLOBIN CONC 35.1 g/dL Normal 31.0-37.0 [facility] Comment on above: Performed By: #### L [id number] #### [facility] [address] [place] [address] Dallin Donahue M.D. [id number] Monocytes (Bld) [#/Vol] 1.20 10*3/uL High 0.30-0.90 [facility] Comment on above: Performed By: #### L [id number] #### [facility] [address] [place] [address] Dallin Donahue M.D. [id number] Monocytes/100 WBC (Bld) 11.3 % Normal [facility] Comment on above: Performed By: #### L [id number] #### [facility] [address] [place] [address] Dallin Donahue M.D. [id number] NEUTROPHILS ABSOLUTE COUNT 8.18 K/mcL High 1.70-7.00 [facility] Comment on above: Performed By: #### L [id number] #### [facility] [address] [place] [address] Dallin Donahue M.D. [id number] Neutrophils/100 WBC (Bld) 76.8 % Normal [facility] Comment on above: Performed By: #### L [id number] #### [facility] [address] [place] [address] Dallin Donahue M.D. [id number] Platelet mean volume (Bld) [Entitic vol] 10.3 fL Normal 9.4-12.4 [facility] Comment on above: Performed By: #### L [id number] #### [facility] [address] [place] [address] Dallin Donahue M.D. [id number] Platelets (Bld) [#/Vol] 275 10*3/uL Normal 150-400 [facility] Comment on above: Performed By: #### L [id number] #### [facility] [address] [place], [place] [address] Dallin Donahue M.D. [id number] RBC (Bld) [#/Vol] 4.61 10*6/uL Normal 4.50-5.90 [facility] Comment on above: Performed By: #### L [id number] #### [facility] [address] [place] [address] Dallin Donahue M.D. [id number] WBC (Bld) [#/Vol] 10.64 10*3/uL Normal 4.50-11.00 [facility] Comment on above: Performed By: #### L [id number] #### [facility] [address] [place] [address] Dallin Donahue M.D. [id number] CPKon 01-05-2024 CPK 7679 U/L High 60-225 [facility] Comment on above: Performed By: #### L [id number] #### [facility] [address] [place] [address] Dallin Donahue M.D. [id number] CT HEAD OR BRAIN WITHOUT CON TRASTon 01-05-2024 CT HEAD OR BRAIN WITHOUT CONTRAST EXAMINATION: CT HEAD OR BRAIN WITHOUT CONTRAST HISTORY: Seizure activity Injury/Trauma or Illness?:Illness/Other How long have you had these symptoms (acute/chronic)?:Acute Reason for exam?:ams, seizures, medication reaction vs OD Type of Exam?:Initial Additional signs and symptoms?:. Injury/Trauma or Illness?:Illness/Other How long have you had these symptoms (acute/chronic)?:AcuteSei zure activity COMPARISON: MRI of the brain dated 07/04/2012. CONTRAST: None. TECHNIQUE CT Head with axial, coronal and sagittal reformats. Dose reduction techniques were achieved by using automated exposure control and/or adjustment of mA and/or kV according to patient size and/or use of iterative reconstruction technique. FINDINGS: FINDINGS: POSTOPERATIVE CHANGES: None. BRAIN PARENCHYMA: No intraparenchymal or extra-axial hemorrhage. No mass effect. No midline shift or herniation. Normal peres/white differentiation. VENTRICLES/EXTRA-AXIAL SPACES: Normal for patient's age. VESSELS: No hyperdense intraluminal thrombus. SINUSES/MASTOIDS:Cyst or polyp formation in the base the maxillary sinus on the right. No fluid levels. Nasal septal deviation to the left with spur formation. Mastoids and middle ears are clear. MSK: No displaced or depressed calvarial fracture. OTHER: IMPRESSION: 1. No acute intracranial abnormality. No hemorrhage or mass effect. Recommend follow-up with seizure protocol MRI. Workstation ID: [id number] Dictated by: BHAVESH LING on [place] Jan 05, 2024 3:24:55 AM EDT Transcribed by: BHAVESH LING on [place] Jan 05, 2024 3:24:55 AM EDT Finalized by: BHAVESH LING on [place] Jan 05, 2024 3:24:55 AM EDT Normal [facility] Comment on above: Order Comment: Injur y/Trauma or Illness?:Illness/Other How long have you had these symptoms (acute/chronic)?:Acute Reason for exam?:ams, seizures, medication reaction vs OD Type of Exam?:Initial Additional signs and symptoms?:. DRUGS OF ABUSE SCREEN, URINE on 01-05-2024 AMPHETAMINE SCREEN, URINE Positive Abnormal None Detected [facility] Comment on above: Order Comment: Scree n results should be used for treatment purposes only.Specimen will be kept for 2 weeks, if the sample is adequate. Confirmation testing can be initiated by calling the lab within 2 weeks. Result Comment: Urin e Amphetamine Cutoff: < 1000 ng/mL = None Detected Performed By: #### L [id number] #### [facility] [address] [place] [address] Dallin Donahue M.D. [id number] BARBITURATE SCREEN URINE Not detected Normal None Detected [facility] Comment on above: Order Comment: Scree n results should be used for treatment purposes only.Specimen will be kept for 2 weeks, if the sample is adequate. Confirmation testing can be initiated by calling the lab within 2 weeks. Result Comment: Urin e Barbiturates Cutoff: < 200 ng/mL = None Detected Performed By: #### L [id number] #### [facility] [address] [place], [place] [address] Dallin Donahue M.D. [id number] BENZODIAZEPINE SCREEN, URINE Not detected Normal None Detected [facility] Comment on above: Order Comment: Scree n results should be used for treatment purposes only.Specimen will be kept for 2 weeks, if the sample is adequate. Confirmation testing can be initiated by calling the lab within 2 weeks. Result Comment: Urin e Benzodiazepine Cutoff: < 200 ng/mL = None Detected Performed By: #### L [id number] #### [facility] [address] [place] [address] Dallin Donahue M.D. [id number] BUPRENORPHINE, URINE Not detected Normal None Detected [facility] Comment on above: Order Comment: Scree n results should be used for treatment purposes only.Specimen will be kept for 2 weeks, if the sample is adequate. Confirmation testing can be initiated by calling the lab within 2 weeks. Result Comment: Urin e Buprenorphine Cutoff: < 5 ng/mL = None Detected Performed By: #### L [id number] #### [facility] [address] [place] [address] Dallin Donahue M.D. [id number] CANNABINOID SCREEN URINE Positive Abnormal None Detected [facility] Comment on above: Order Comment: Scree n results should be used for treatment purposes only.Specimen will be kept for 2 weeks, if the sample is adequate. Confirmation testing can be initiated by calling the lab within 2 weeks. Result Comment: Urin e Cannabinoids Cutoff: < 50 ng/mL = None Detected Performed By: #### L [id number] #### [facility] [address] [place] [address] Dallin Donahue M.D. [id number] COCAINE, SCREEN URINE Not detected Normal None Detected [facility] Comment on above: Order Comment: Scree n results should be used for treatment purposes only.Specimen will be kept for 2 weeks, if the sample is adequate. Confirmation testing can be initiated by calling the lab within 2 weeks. Result Comment: Urin e Cocaine Cutoff: < 300 ng/mL = None Detected Performed By: #### L [id number] #### [facility] [address] [place] [address] Dallin Donahue M.D. [id number] FENTANYL, URINE Not detected Normal None Detected [facility] Comment on above: Order Comment: Scree n results should be used for treatment purposes only.Specimen will be kept for 2 weeks, if the sample is adequate. Confirmation testing can be initiated by calling the lab within 2 weeks. Result Comment: Urin e Fentanyl Cutoff: < 1 ng/mL = None Detected Performed By: #### L [id number] #### [facility] [address] [place] [address] Dallin Donahue M.D. [id number] METHADONE SCREEN, URINE Positive Abnormal None Detected [facility] Comment on above: Order Comment: Scree n results should be used for treatment purposes only.Specimen will be kept for 2 weeks, if the sample is adequate. Confirmation testing can be initiated by calling the lab within 2 weeks. Result Comment: Urin e Methadone Cutoff: < 300 ng/mL = None Detected Performed By: #### L [id number] #### [facility] [address] [place] [address] Dallin Donahue M.D. [id number] OPIATE SCREEN URINE Positive Abnormal None Detected [facility] Comment on above: Order Comment: Scree n results should be used for treatment purposes only.Specimen will be kept for 2 weeks, if the sample is adequate. Confirmation testing can be initiated by calling the lab within 2 weeks. Result Comment: Urin e Opiates Cutoff: < 300 ng/mL = None Detected Performed By: #### L [id number] #### [facility] [address] [place] [address] Dallin Donahue M.D. [id number] OXYCODONE SCREEN, URINE Not detected Normal None Detected [facility] Comment on above: Order Comment: Scree n results should be used for treatment purposes only.Specimen will be kept for 2 weeks, if the sample is adequate. Confirmation testing can be initiated by calling the lab within 2 weeks. Result Comment: Urin e Oxycodone Cutoff: < 100 ng/mL = None Detected Performed By: #### L [id number] #### [facility] [address] [place] [address] Dallin Donahue M.D. [id number] ED Procedureon 01-05-2024 ED Procedure EKG 12-lead Date/Time: 01/05/2024 1:47 AM Performed by: Tomasa Hoang MD Authorized by: Tomasa Hoang MD Interpreted by ED attending physician Comparison: compared with previous ECG Comparison to previous ECG: Sinus tach now present Rhythm: sinus rhythm and sinus tachycardia BPM: 123 Clinical impression: sinus tachycardia AUTHENTICATED BY TOMASA HOANG ON 01/05/2024 01:48:13 Normal [facility] ED Prov Noteon 01-05-2024 ED Prov Note [facility] ATTENDING NOTE: NAME: Yu Younger CSN: [id number] 33 y.o. PCP: Justin Pearce MD History: Chief Complaint: Medication Reaction and Drug Overdose HPI: The history was obtained from the EMS. Yu is a 33 y.o. male who presents with a chief complaint of Medication Reaction and Drug Overdose. 33-year-old male sent from outside facility due to concern for methadone overdose or medication reaction. Patient does not use heroin in 2 years and denies any other recreational drug use. Patient at that facility had tachycardia and twitching of the limbs. On arrival the patient was tachycardic had twitching of limbs and did go to develop seizure activity which required 4 of Ativan to stop. Patient does have a known history of seizure disorder however is not on medication. PMHx: Past Medical History: Diagnosis Date Seizures (HCC) PMSx: History reviewed. No pertinent surgical history. FAM. Hx: History reviewed. No pertinent family history. SOC. Hx: Social History Socioeconomic History Marital status: Single Tobacco Use Smoking status: Some Days Current packs/day: 0.50 Average packs/day: 0.5 packs/day for 2.6 years (1.3 ttl pk-yrs) Types: Cigarettes Start date: 2021 Smokeless tobacco: Never Vaping Use Vaping status: Never Used Substance and Sexual Activity Alcohol use: No Drug use: No Comment: prescribed Methadone Social Determinants of Health Financial Resource Strain: Not on File (02/09/2019) [facility] from [facility] Financial Resource Strain Financial Resource Strain: 0 Food Insecurity: Not on File (02/09/2019) Received from [facility] Food Insecurity Food: 0 Transportation Needs: Not on File (02/09/2019) [facility] from [facility] Transportation Needs Transportation: 0 Physical Activity: Not on File (02/09/2019) Received from [facility] Physical Activity Physical Activity: 0 Stress: Not on File (02/09/2019) Received from [facility] Stress Stress: 0 Social Connections: Not on File (02/09/2019) Received from [facility] Social Connections Social Connections and Isolation: 0 Housing Stability: Not on File (02/09/2019) Received from [facility] Housing Stability Housin MEDs: Previous Medications Medication Sig methadone (DOLOPHINE) 10 mg/mL solution Take 18 mL (180 mg total) by mouth once daily Per Patient Report Reasons: opioid use disorder. amitriptyline (ELAVIL) 75 MG tablet Take 1 (one) tablet (75 mg total) by mouth nightly for 7 days . cloNIDine HCL (CATAPRES) 0.1 MG tablet Take 1 (one) tablet (0.1 mg total) by mouth 2 (two) times a day for 7 days . gabapentin (NEURONTIN) 400 MG capsule Take 1 (one) capsule (400 mg total) by mouth every 8 (eight) hours (Days supply per fill: 30 day supply . rOPINIRole (REQUIP) 0.5 MG tablet Take 1 (one) tablet (0.5 mg total) by mouth nightly . ALL: Allergies Allergen Reactions Keppra [Levetiracetam] ROS: Positives and pertinent negatives as per HPI. All other systems were reviewed and are negative. Physical Exam: Patient Vitals for the past 24 hrs: BP Temp Temp src Pulse Resp SpO2 Weight 01/05/24 0230 107/70 -- -- (!) 100 (!) 21 94 % -- 01/05/24 0200 113/75 -- -- (!) 108 (!) 20 98 % -- 01/05/24 0135 -- -- -- -- -- -- 69.6 kg (153 lb 7 oz) 01/05/24 0130 115/83 -- -- (!) 127 (!) 22 98 % -- 01/05/24 0115 95/74 97 degrees F (36.1 degrees C) Oral (!) 134 16 (!) 89 % -- Physical Exam Vitals and nursing note reviewed. Constitutional: Appearance: He is well-developed. He is ill-appearing and diaphoretic. HENT: Head: Normocephalic and atraumatic. Nose: Nose normal. Eyes: General: No scleral icterus. Conjunctiva/sclera: Conjunctivae normal. Cardiovascular: Rate and Rhythm: Regular rhythm. Tachycardia present. Musculoskeletal: Right lower leg: No swelling. Left lower leg: No swelling. Comments: No obvious evidence of long bone fractures, or major joint dislocations. Pulmonary: Effort: Respiratory distress present. Abdominal: General: Abdomen is flat. There is no distension. Palpations: Abdomen is soft. Skin: General: Skin is warm. Coloration: Skin is not jaundiced or pale. Neurological: Mental Status: He is not disoriented. Motor: Seizure activity present. Comments: Patient presented seeming agitated unable to stop moving Did develop seizure activity that required [facility] (if done): Labs Reviewed URINALYSIS - Abnormal; Notable for the following components: Result Value Clarity, Urine Cloudy (*) Specific [place] 1.036 (*) Protein, Urine 100 (*) Ketones, Urine Trace (*) Bilirubin, Urine Positive (*) Urobilinogen, Urine >=4.0 (*) Blood, Urine Large (*) Leukocyte Esterase, Urine Small (*) WBCs, Urine 15 (*) RBCs, Urine 28 (*) Bacteria, Urine Rare (*) Hyaline Casts 11-20 (*) Sperm, Urine Rare (*) All other components within normal limi (more content not included)... Normal [facility] HEPATIC FUNCTION PANELon Albumin [Mass/Vol] 4.7 g/dL Normal 3.2-5.2 [facility] Comment on above: Performed By: #### L [id number] #### MH LAB [address] [address] Dallin Donahue M.D. [id number] ALP [Catalytic activity/Vol] 137 U/L Normal 40-140 [facility] Comment on above: Performed By: #### L [id number] #### [facility] LAB [address] [place], [place] [address] Dallin Donahue M.D. [id number] ALT [Catalytic activity/Vol] 112 U/L High 0-50 U/L [facility] Comment on above: Performed By: #### L [id number] #### LAB [address] [place], [place] [address] Dallin Donahue M.D. [id number] AST [Catalytic activity/Vol] 284 U/L High 0-50 U/L [facility] Comment on above: Performed By: #### L [id number] #### [facility] [address] [address] Dallin Donahue M.D. [id number] Bilirubin [Mass/Vol] 0.8 mg/dL Normal 0.0-1.3 [facility] Comment on above: Performed By: #### L [id number] #### [facility] LAB [address] [address] Dallin Donahue M.D. [id number] Bilirubin.indirect [Mass/Vol] 0.3 mg/dL Normal 0.0-0.4 [facility] Comment on above: Performed By: #### L [id number] #### [facility] LAB [address] [address] Dallin Donahue M.D. [id number] Protein [Mass/Vol] 8.2 g/dL High 6.0-8.0 [facility] Comment on above: Performed By: #### L [id number] #### [facility] LAB [address] [address] Dallin Donahue M.D. [id number] POC GLUCOSE - [facility] 024 Glucose [Mass/Vol] 112 mg/dL High 65-99 [facility] PROLACTINon 01-05-2024 PROLACTIN 4.0 ng/mL Normal 1.6-18.8 [facility] Comment on above: Performed By: #### 4 [id number] #### [facility] LAB [address] [address] Dallin Donahue M.D. [id number] URINALYSISon 01-05-2024 BACTERIA, URINE Rare Abnormal None Seen [facility] Comment on above: Order Comment: Micro scopic examination is performed on all urinalysis samples and only positive findings are reported. The test for blood on the chemical analytic portion of urinalysis may also be positive due to hemoglobinuria and myoglobinuria and if red blood cells are present they are quantified by microscopic examination. Performed By: #### 4 6625 #### LAB [address] [address] Dallin Donahue M.D. [id number] BILIRUBIN, URINE Positive Abnormal Negative [facility] [place] [facility] Comment on above: Order Comment: Micro scopic examination is performed on all urinalysis samples and only positive findings are reported. The test for blood on the chemical analytic portion of urinalysis may also be positive due to hemoglobinuria and myoglobinuria and if red blood cells are present they are quantified by microscopic examination. Result Comment: Fals e positive urine bilirubins can occur in the setting of a large amount of hemoglobin and secondary to medications including anti-inflammatory agents, rifampin, and pyridium. Performed By: #### 4 6625 #### LAB [address] [address] Dallin Donahue M.D. [id number] BLOOD, URINE Large Abnormal Negative [facility] Comment on above: Order Comment: Micro scopic examination is performed on all urinalysis samples and only positive findings are reported. The test for blood on the chemical analytic portion of urinalysis may also be positive due to hemoglobinuria and myoglobinuria and if red blood cells are present they are quantified by microscopic examination. Performed By: #### 4 [id number] #### LAB [address] [address] Dallin Donahue M.D. [id number] Clarity (U) Cloudy Abnormal Clear [facility] Comment on above: Order Comment: Micro scopic examination is performed on all urinalysis samples and only positive findings are reported. The test for blood on the chemical analytic portion of urinalysis may also be positive due to hemoglobinuria and myoglobinuria and if red blood cells are present they are quantified by microscopic examination. Performed By: #### 4 6625 #### LAB [address] [address] Dallin Donahue M.D. [id number] Color (U) Yellow Normal Colorless, Yellow [facility] Comment on above: Order Comment: Micro scopic examination is performed on all urinalysis samples and only positive findings are reported. The test for blood on the chemical analytic portion of urinalysis may also be positive due to hemoglobinuria and myoglobinuria and if red blood cells are present they are quantified by microscopic examination. Performed By: #### 4 6625 #### LAB [address] [address] Dallin Donahue M.D. [id number] Glucose Ql (U) Negative Normal Negative [facility] Comment on above: Order Comment: Micro scopic examination is performed on all urinalysis samples and only positive findings are reported. The test for blood on the chemical analytic portion of urinalysis may also be positive due to hemoglobinuria and myoglobinuria and if red blood cells are present they are quantified by microscopic examination. Performed By: #### 4 6625 #### LAB [address] [address] Dallin Donahue M.D. [id number] Hyaline casts LM Ql (Urine sed) 11-20 Abnormal 0-2 [facility] Comment on above: Order Comment: Micro scopic examination is performed on all urinalysis samples and only positive findings are reported. The test for blood on the chemical analytic portion of urinalysis may also be positive due to hemoglobinuria and myoglobinuria and if red blood cells are present they are quantified by microscopic examination. Performed By: #### 4 6625 #### LAB [address] [address] Dallin Donahue M.D. [id number] Ketones Ql (U) Trace Abnormal Negative [facility] Comment on above: Order Comment: Micro scopic examination is performed on all urinalysis samples and only positive findings are reported. The test for blood on the chemical analytic portion of urinalysis may also be positive due to hemoglobinuria and myoglobinuria and if red blood cells are present they are quantified by microscopic examination. Performed By: #### 4 6625 #### LAB [address] [address] Dallin Donahue M.D. [id number] Leukocyte esterase Test strip Ql (U) Small Abnormal Negative [facility] Comment on above: Order Comment: Micro scopic examination is performed on all urinalysis samples and only positive findings are reported. The test for blood on the chemical analytic portion of urinalysis may also be positive due to hemoglobinuria and myoglobinuria and if red blood cells are present they are quantified by microscopic examination. Performed By: #### 4 6625 #### LAB [address] [id number] Dallin Donahue M.D. [id number] MUCUS, URINE Rare Normal None Seen, Rare [facility] Comment on above: Order Comment: Micro scopic examination is performed on all urinalysis samples and only positive findings are reported. The test for blood on the chemical analytic portion of urinalysis may also be positive due to hemoglobinuria and myoglobinuria and if red blood cells are present they are quantified by microscopic examination. Performed By: #### 4 6625 #### LAB [address] [address] Dallin Donahue M.D. [id number] NITRITE, URINE Negative Normal Negative [facility] Comment on above: Order Comment: Micro scopic examination is performed on all urinalysis samples and only positive findings are reported. The test for blood on the chemical analytic portion of urinalysis may also be positive due to hemoglobinuria and myoglobinuria and if red blood cells are present they are quantified by microscopic examination. Performed By: #### 4 6625 #### LAB [address] [address] Dallin Donahue M.D. [id number] pH (U) 6.0 [pH] Normal 5.0-7.0 [facility] Comment on above: Order Comment: Micro scopic examination is performed on all urinalysis samples and only positive findings are reported. The test for blood on the chemical analytic portion of urinalysis may also be positive due to hemoglobinuria and myoglobinuria and if red blood cells are present they are quantified by microscopic examination. Performed By: #### 4 6625 #### LAB [address] [address] Dallin Donahue M.D. [id number] Protein (U) [Mass/Vol] 100 mg/dL Abnormal Negative [facility] Comment on above: Order Comment: Micro scopic examination is performed on all urinalysis samples and only positive findings are reported. The test for blood on the chemical analytic portion of urinalysis may also be positive due to hemoglobinuria and myoglobinuria and if red blood cells are present they are quantified by microscopic examination. Performed By: #### 4 6625 #### LAB [address] [address] Dallin Donahue M.D. [id number] RBC LM.HPF (Urine sed) [#/Area] 28 /[HPF] High 0-3 [facility] Comment on above: Order Comment: Micro scopic examination is performed on all urinalysis samples and only positive findings are reported. The test for blood on the chemical analytic portion of urinalysis may also be positive due to hemoglobinuria and myoglobinuria and if red blood cells are present they are quantified by microscopic examination. Performed By: #### 4 6625 #### LAB [address] [place] [address] Dallin Donahue M.D. [id number] Specific gravity (U) [Rel density] 1.036 High 1.005-1.025 [facility] Comment on above: Order Comment: Micro scopic examination is performed on all urinalysis samples and only positive findings are reported. The test for blood on the chemical analytic portion of urinalysis may also be positive due to hemoglobinuria and myoglobinuria and if red blood cells are present they are quantified by microscopic examination. Performed By: #### 4 6625 #### LAB [address] [place] [address] Dallin Donahue M.D. [id number] SPERM, URINE Rare Abnormal None Seen [facility] Comment on above: Order Comment: Micro scopic examination is performed on all urinalysis samples and only positive findings are reported. The test for blood on the chemical analytic portion of urinalysis may also be positive due to hemoglobinuria and myoglobinuria and if red blood cells are present they are quantified by microscopic examination. Performed By: #### 4 6625 #### LAB [address] [place] [address] Dallin Donahue M.D. [id number] UROBILINOGEN, URINE >=4.0 Abnormal <2.0 [facility] Comment on above: Order Comment: Micro scopic examination is performed on all urinalysis samples and only positive findings are reported. The test for blood on the chemical analytic portion of urinalysis may also be positive due to hemoglobinuria and myoglobinuria and if red blood cells are present they are quantified by microscopic examination. Performed By: #### 4 6625 #### LAB [address] [address] Dallin Donhaue M.D. [id number] WBC LM.HPF (Urine sed) [#/Area] 15 /[HPF] High 0-5 [facility] Comment on above: Order Comment: Micro scopic examination is performed on all urinalysis samples and only positive findings are reported. The test for blood on the chemical analytic portion of urinalysis may also be positive due to hemoglobinuria and myoglobinuria and if red blood cells are present they are quantified by microscopic examination. Performed By: #### 4 6625 #### LAB [address] [place] [address] Dallin Donahue M.D. [id number] HCQPCRon 12-10-2020 Hepatitis C RNA 24991 IU/mL Abnormal [facility] ([place]) Comment on above: Result Comment: INTE RPRETATION: Positive for HCV RNA by PCR. (*) The Linear Range of this assay is 15 IU/mL to 100,000,000 IU/mL. Reference Range: Negative for HCV RNA Performed By: [facility] [place] [address] [employer]: Quentin Escamilla III, M.D. CLIA#: [id number] Phone#: Performed By: #### C BC, ADIFF, ANEU, BMP, GFR #### [place] [address] HBCABon 12-09-2020 Hep B Core Ab Positive Abnormal NEGAT [facility] ([place]) Comment on above: Result Comment: Perf ormed By: [facility] [employer] [place] [address] [employer]: Quentin Escamilla III, M.D. CLIA#: [id number] Phone#: Performed By: #### C BC, ADIFF, ANEU, BMP, GFR #### [address] [address] .GFRon 12-08-2020 GFR Non- >60 Normal [facility] ([place]) Comment on above: Result Comment: GFR Population mean for , Non- Americans Ages 20-29 = 116 mL/min/1.73 sq.m. Ages 30-39 = 107 mL/min/1.73 sq.m. Ages 40-49 = 99 mL/min/1.73 sq.m. Ages 50-59 = 93 mL/min/1.73 sq.m. Ages 60-69 = 85 mL/min/1.73 sq.m. Ages 70+ = 75 mL/min/1.73 sq.m. Chronic Kidney Disease: Less than 60 mL/min/1.73 square meters End Stage Renal Disease: Less than 15 mL/min/1.73 square meters Performed By: #### C BC, ADIFF, ANEU, BMP, GFR #### [address] [address] GFR >60 Normal [facility] ([place] Comment on above: Result Comment: GFR Population mean for , Non- Americans Ages 20-29 = 116 mL/min/1.73 sq.m. Ages 30-39 = 107 mL/min/1.73 sq.m. Ages 40-49 = 99 mL/min/1.73 sq.m. Ages 50-59 = 93 mL/min/1.73 sq.m. Ages 60-69 = 85 mL/min/1.73 sq.m. Ages 70+ = 75 mL/min/1.73 sq.m. Chronic Kidney Disease: Less than 60 mL/min/1.73 square meters End Stage Renal Disease: Less than 15 mL/min/1.73 square meters Performed By: #### C BC, ADIFF, ANEU, BMP, GFR #### [address] [address] CMPon 12-08-2020 Albumin Level 4.3 G/dL Normal 3.2-4.8 [facility] ([place] Comment on above: Performed By: #### C BC, ADIFF, ANEU, BMP, GFR #### [place] [id number] Albumin/Globulin [Mass ratio] 1.3 {ratio} Normal 0.9-1.6 [facility] ([place] Comment on above: Performed By: #### C BC, ADIFF, ANEU, BMP, GFR #### [place] [id number] ALP [Catalytic activity/Vol] 126 U/L Normal 38-126 [facility] ([place] Comment on above: Performed By: #### C BC, ADIFF, ANEU, BMP, GFR #### [place] [id number] ALT [Catalytic activity/Vol] 69 U/L High 12-55 [facility] ([place] Comment on above: Performed By: #### C BC, ADIFF, ANEU, BMP, GFR #### [place] [id number] AST [Catalytic activity/Vol] 43 U/L High 8-34 [facility] ([place] Comment on above: Performed By: #### C BC, ADIFF, ANEU, BMP, GFR #### [place] [id number] Bili Total 0.20 mg/dL Normal 0.20-1.20 [facility] ([place] Comment on above: Result Comment: Use of this assay is not recommended for patients undergoing treatment with eltrombopag due to the potential for falsely elevated results. Performed By: #### C BC, ADIFF, ANEU, BMP, GFR #### [place] [id number] BUN/Creatinine Ratio 17.8 ratio Normal 10.0-22.0 [facility] ([place] Comment on above: Performed By: #### C BC, ADIFF, ANEU, BMP, GFR #### [place] [id number] Calcium [Mass/Vol] 10.0 mg/dL Normal 8.7-10.4 [facility] ([place] Comment on above: Result Comment: No te - New Reference Range in effect 20 Performed By: #### C BC, ADIFF, ANEU, BMP, GFR #### [address] [address] Chloride [Moles/Vol] 109 mmol/L Normal 98-110 [facility] ([place] Comment on above: Performed By: #### C BC, ADIFF, ANEU, BMP, GFR #### [address] [address] CO2 [Moles/Vol] 28 mmol/L Normal 22-32 [facility] ([place] Comment on above: Performed By: #### C BC, ADIFF, ANEU, BMP, GFR #### [address] [address] Creatinine [Mass/Vol] 1.07 mg/dL Normal 0.60-1.40 [facility] ([place]) Comment on above: Performed By: #### C BC, ADIFF, ANEU, BMP, GFR #### [address] [address] Electrolyte Balance 4.0 mEq/L Normal 4.0-15.0 [facility] ([place]) Comment on above: Performed By: #### C BC, ADIFF, ANEU, BMP, GFR #### [address] [address] Globulin 3.2 G/dL Normal 1.5-3.8 [facility] ([place] Comment on above: Performed By: #### C BC, ADIFF, ANEU, BMP, GFR #### [address] [address] Glucose [Mass/Vol] 104 mg/dL Normal 70-110 [facility] ([place] Comment on above: Performed By: #### C BC, ADIFF, ANEU, BMP, GFR #### [address] [address] Potassium [Moles/Vol] 4.6 mmol/L Normal 3.5-5.0 [facility] ([place] Comment on above: Performed By: #### C BC, ADIFF, ANEU, BMP, GFR #### [facility] [address] [place], [place] [address] Sodium [Moles/Vol] 141 mmol/L Normal 136-145 [facility] ([place] Comment on above: Performed By: #### C BC, ADIFF, ANEU, BMP, GFR #### [address] [address] Total Protein 7.5 G/dL Normal 5.7-8.2 [facility] ([place] Comment on above: Result Comment: No te - New Reference Range in effect 20 Performed By: #### C BC, ADIFF, ANEU, BMP, GFR #### [place] [id number] Urea nitrogen [Mass/Vol] 19.0 mg/dL Normal 8.0-22.0 [facility] ([place] Comment on above: Performed By: #### C BC, ADIFF, ANEU, BMP, GFR #### [place] [id number] HBSABon 12-08-2020 Hep B Surf Ab 18.0 mIU/mL Normal >=10.0 [facility] ([place] Comment on above: Result Comment: 0 to < 10.0 mIU/mL Nonreactive Patient is considered not to have protective immunity to HBV infection >/= 10.0 mIU/mL Reactive Patient is considered to have protective immunity to HBV infection. This assay is traceable to the World Health Organization (WHO) Hepatitis B Immunoglobulin 1st International Reference Preparation (1976). The accepted criteria for immunity to HBV is anti-HBs activity >/= 10.0 mIU/mL, as defined by the WHO International Reference Preparation. Performed By: #### C BC, ADIFF, ANEU, BMP, GFR #### [place] [id number] HBSAGon 12-08-2020 Hep B Surf Ag Non-Reactive Normal Non-Reactive [facility] ([place] Comment on above: Performed By: #### C BC, ADIFF, ANEU, HBSAG, CMP, HBSAB, GFR, HCV1, HIV, RPR, AHBCOT, HCQPCR #### [address] [address] HCVon 12-08-2020 Hep C Ab Reactive Abnormal Non-Reactive [facility] ([place] Comment on above: Performed By: #### C BC, ADIFF, ANEU, BMP, GFR #### [place] [address] Hep C Ab Int Normal [facility] ([place] Comment on above: Result Comment: Reac tive: Samples with a value >/= 1.00 index are considered reactive for IgG antibodies to HCV. The presence of anti-HCV may be indicative of recent and/or past infection by Hepatitis C Virus. PATIENT MAY BE INFECTIONS. PLEASE INFORM SEWING ROOM SUPERVISOR. Supplemental testing for HCV RNA may detect the presence of active HCV infection. This result is a reportable disease Infection Control has been notified. See Interp Performed By: #### C BC, ADLORRI, ANEU, BMP, GFR #### [place] [address] HIVon 12-08-2020 HIV 1/2 Ab Normal Non-Reactive [facility] ([place] Comment on above: Result Comment: Non- Reactive Specimen is negative for anti-HIV-1 and anti-HIV-2. Performed By: #### C BC, MARY, ANEU, BMP, GFR #### [place] [address] RPRon 12-08-2020 Reagin Ab RPR Ql (S) Non-Reactive Normal Non-Reactive [facility] ([place] Comment on above: Result Comment: The RPR test is a non-treponemal assay useful as an aid in the diagnosis of primary and secondary syphilis. It converts to positive generally within 2 weeks after the appearance of a lesion. This test is also useful for monitoring response to antibiotic therapy. A positive RPR screening test will be followed by the FTA ABS test. False positive RPR tests may occur in 1) patients with underlying autoimmune disorders, 2) elderly patients, 3) , and 4) other conditions with abnormal serum globulins. Performed By: #### C BC, ADIFF, ANEU, BMP, GFR #### [place] [address] .Auto Diffon 12-07-2020 Basophil, Absolute 0.10 10 3/mcL Normal 0.00-0.27 [facility] ([place]) Comment on above: Performed By: #### C BC, ADIFF, ANEU, HBSAG, CMP, HBSAB, GFR, HCV1, HIV, RPR, AHBCOT, HCQPCR #### [address] [address] Basophils/100 WBC (Bld) 0.8 % Normal 0.0-2.5 [facility] ([place] Comment on above: Performed By: #### C BC, ADIFF, ANEU, HBSAG, CMP, HBSAB, GFR, HCV1, HIV, RPR, AHBCOT, HCQPCR #### [address] [address] Eosinophil, Absolute 0.20 10 3/mcL Normal 0.00-0.65 [facility] ([place] Comment on above: Performed By: #### C BC, ADIFF, ANEU, HBSAG, CMP, HBSAB, GFR, HCV1, HIV, RPR, AHBCOT, HCQPCR #### [address] [address] Eosinophils/100 WBC (Bld) 3.5 % Normal 0.0-6.0 [facility] ([place] Comment on above: Performed By: #### C BC, ADIFF, ANEU, HBSAG, CMP, HBSAB, GFR, HCV1, HIV, RPR, AHBCOT, HCQPCR #### [address] [address] Lymphocyte, Absolute 1.80 10 3/mcL Normal 0.90-4.32 [facility] ([place] Comment on above: Performed By: #### C BC, ADIFF, ANEU, HBSAG, CMP, HBSAB, GFR, HCV1, HIV, RPR, AHBCOT, HCQPCR #### [address] [address] Lymphocytes/100 WBC (Bld) 27.2 % Normal 20.0-40.0 [facility] ([place] Comment on above: Performed By: #### C BC, ADIFF, ANEU, HBSAG, CMP, HBSAB, GFR, HCV1, HIV, RPR, AHBCOT, HCQPCR #### [address] [address] Monocyte, Absolute 0.40 10 3/mcL Normal 0.09-1.40 [facility] ([place] Comment on above: Performed By: #### C BC, ADIFF, ANEU, HBSAG, CMP, HBSAB, GFR, HCV1, HIV, RPR, AHBCOT, HCQPCR #### [address] [address] Monocytes/100 WBC (Bld) 6.7 % Normal 2.0-13.0 [facility] ([place] Comment on above: Performed By: #### C BC, ADIFF, ANEU, HBSAG, CMP, HBSAB, GFR, HCV1, HIV, RPR, AHBCOT, HCQPCR #### [place] [id number] Neutrophils/100 WBC (Bld) 61.8 % Normal 50.0-75.0 [facility] ([place] Comment on above: Performed By: #### C BC, ADIFF, ANEU, HBSAG, CMP, HBSAB, GFR, HCV1, HIV, RPR, AHBCOT, HCQPCR #### [place] [address] .NEUABSon 12-07-2020 Neutrophil, Absolute 4.00 10 3/mcL Normal 2.25-8.10 [facility] ([place] Comment on above: Performed By: #### C BC, ADIFF, ANEU, HBSAG, CMP, HBSAB, GFR, HCV1, HIV, RPR, AHBCOT, HCQPCR #### [address] [address] CBCon 12-07-2020 Erythrocyte distribution width (RBC) [Ratio] 13.8 % Normal 11.5-15.5 [facility] ([place] Comment on above: Performed By: #### C BC, ADIFF, ANEU, HBSAG, CMP, HBSAB, GFR, HCV1, HIV, RPR, AHBCOT, HCQPCR #### [facility] [address] [place], [place] [address] Hematocrit (Bld) [Volume fraction] 39.7 % Low 40.0-52.0 [facility] ([place] Comment on above: Performed By: #### C BC, ADIFF, ANEU, HBSAG, CMP, HBSAB, GFR, HCV1, HIV, RPR, AHBCOT, HCQPCR #### [place] [id number] Hgb 13.6 G/dL Normal 13.0-17.5 [facility] ([place] Comment on above: Performed By: #### C BC, ADIFF, ANEU, HBSAG, CMP, HBSAB, GFR, HCV1, HIV, RPR, AHBCOT, HCQPCR #### [place] [id number] MCH (RBC) [Entitic mass] 30.9 pg Normal 27.0-33.0 [facility] ([place] Comment on above: Performed By: #### C BC, ADIFF, ANEU, HBSAG, CMP, HBSAB, GFR, HCV1, HIV, RPR, AHBCOT, HCQPCR #### [place] [id number] MCHC 34.3 G/dL Normal 32.0-36.0 [facility] ([place] Comment on above: Performed By: #### C BC, ADIFF, ANEU, HBSAG, CMP, HBSAB, GFR, HCV1, HIV, RPR, AHBCOT, HCQPCR #### [place] [id number] MCV (RBC) [Entitic vol] 89.9 fL Normal 81.0-100.0 [facility] ([place] Comment on above: Performed By: #### C BC, ADIFF, ANEU, HBSAG, CMP, HBSAB, GFR, HCV1, HIV, RPR, AHBCOT, HCQPCR #### [place] [id number] Platelet 251 10 3/mcL Normal 150-450 [facility] ([place]) Comment on above: Performed By: #### C BC, ADIFF, ANEU, HBSAG, CMP, HBSAB, GFR, HCV1, HIV, RPR, AHBCOT, HCQPCR #### [place] [address] Platelet mean volume (Bld) [Entitic vol] 8.4 fL Normal 6.4-10.5 [facility] ([place]) Comment on above: Performed By: #### C BC, ADIFF, ANEU, HBSAG, CMP, HBSAB, GFR, HCV1, HIV, RPR, AHBCOT, HCQPCR #### [place] [address] RBC 4.42 10 6/mcL Low 4.50-6.00 [facility] ([place]) Comment on above: Performed By: #### C BC, ADIFF, ANEU, HBSAG, CMP, HBSAB, GFR, HCV1, HIV, RPR, AHBCOT, HCQPCR #### [place] [address] WBC 6.50 10 3/mcL Normal 4.50-10.80 [facility] ([place]) Comment on above: Performed By: #### C BC, ADIFF, ANEU, HBSAG, CMP, HBSAB, GFR, HCV1, HIV, RPR, AHBCOT, HCQPCR #### [place] [address] .Auto Diffon 11-27-2020 Basophil, Absolute 0.00 10 3/mcL Normal 0.00-0.27 [facility] ([place]) Comment on above: Performed By: #### C BC, ADIFF, ANEU, BMP, GFR #### [place] [address] Basophils/100 WBC (Bld) 0.7 % Normal 0.0-2.5 [facility] ([place] Comment on above: Performed By: #### C BC, ADIFF, ANEU, BMP, GFR #### [place] [address] Eosinophil, Absolute 0.10 10 3/mcL Normal 0.00-0.65 [facility] ([place] Comment on above: Performed By: #### C BC, ADIFF, ANEU, BMP, GFR #### [address] [address] Eosinophils/100 WBC (Bld) 1.7 % Normal 0.0-6.0 [facility] ([place] Comment on above: Performed By: #### C BC, ADIFF, ANEU, BMP, GFR #### [address] [address] Lymphocyte, Absolute 1.80 10 3/mcL Normal 0.90-4.32 [facility] ([place] Comment on above: Performed By: #### C BC, ADIFF, ANEU, BMP, GFR #### [address] [address] Lymphocytes/100 WBC (Bld) 32.9 % Normal 20.0-40.0 [facility] ([place] Comment on above: Performed By: #### C BC, ADIFF, ANEU, BMP, GFR #### [address] [address] Monocyte, Absolute 0.50 10 3/mcL Normal 0.09-1.40 [facility] ([place]) Comment on above: Performed By: #### C BC, ADIFF, ANEU, BMP, GFR #### [address] [address] Monocytes/100 WBC (Bld) 9.8 % Normal 2.0-13.0 [facility] ([place] Comment on above: Performed By: #### C BC, ADIFF, ANEU, BMP, GFR #### [address] [address] Neutrophils/100 WBC (Bld) 54.9 % Normal 50.0-75.0 [facility] ([place]) Comment on above: Performed By: #### C BC, ADIFF, ANEU, BMP, GFR #### [address] [address] .GFRon 11-27-2020 GFR Non- >60 Normal [facility] ([place]) Comment on above: Result Comment: GFR Population mean for , Non- Americans Ages 20-29 = 116 mL/min/1.73 sq.m. Ages 30-39 = 107 mL/min/1.73 sq.m. Ages 40-49 = 99 mL/min/1.73 sq.m. Ages 50-59 = 93 mL/min/1.73 sq.m. Ages 60-69 = 85 mL/min/1.73 sq.m. Ages 70+ = 75 mL/min/1.73 sq.m. Chronic Kidney Disease: Less than 60 mL/min/1.73 square meters End Stage Renal Disease: Less than 15 mL/min/1.73 square meters Performed By: #### C BC, ADIFF, ANEU, BMP, GFR #### [address] [address] GFR >60 Normal [facility] ([place]) Comment on above: Result Comment: GFR Population mean for , Non- Americans Ages 20-29 = 116 mL/min/1.73 sq.m. Ages 30-39 = 107 mL/min/1.73 sq.m. Ages 40-49 = 99 mL/min/1.73 sq.m. Ages 50-59 = 93 mL/min/1.73 sq.m. Ages 60-69 = 85 mL/min/1.73 sq.m. Ages 70+ = 75 mL/min/1.73 sq.m. Chronic Kidney Disease: Less than 60 mL/min/1.73 square meters End Stage Renal Disease: Less than 15 mL/min/1.73 square meters Performed By: #### C BC, ADIFF, ANEU, BMP, GFR #### [address] [address] .NEUABSon 11-27-2020 Neutrophil, Absolute 3.00 10 3/mcL Normal 2.25-8.10 [facility] [place] Comment on above: Performed By: #### C BC, ADIFF, ANEU, BMP, GFR #### [address] [address] BMPon 11-27-2020 BUN/Creatinine Ratio 15.1 ratio Normal 10.0-22.0 [facility] ([place] Comment on above: Performed By: #### C BC, ADIFF, ANEU, BMP, GFR #### [address] [address] Calcium [Mass/Vol] 9.9 mg/dL Normal 8.7-10.4 [facility] ([place]) Comment on above: Result Comment: No te - New Reference Range in effect 20 Performed By: #### C BC, ADIFF, ANEU, BMP, GFR #### [address] [address] Chloride [Moles/Vol] 107 mmol/L Normal 98-110 [facility] ([place] Comment on above: Performed By: #### C BC, ADIFF, ANEU, BMP, GFR #### [address] [address] CO2 [Moles/Vol] 28 mmol/L Normal 22-32 [facility] ([place] Comment on above: Performed By: #### C BC, ADIFF, ANEU, BMP, GFR #### [address] [address] Creatinine [Mass/Vol] 0.93 mg/dL Normal 0.60-1.40 [facility] ([place] Comment on above: Performed By: #### C BC, ADIFF, ANEU, BMP, GFR #### [address] [address] Electrolyte Balance 4.0 mEq/L Normal 4.0-15.0 [facility] ([place]) Comment on above: Performed By: #### C BC, ADIFF, ANEU, BMP, GFR #### [address] [address] Glucose [Mass/Vol] 102 mg/dL Normal 70-110 [facility] ([place] Comment on above: Performed By: #### C BC, ADIFF, ANEU, BMP, GFR #### [address] [address] Potassium [Moles/Vol] 4.2 mmol/L Normal 3.5-5.0 [facility] ([place] Comment on above: Performed By: #### C BC, ADIFF, ANEU, BMP, GFR #### [address] [address] Sodium [Moles/Vol] 139 mmol/L Normal 136-145 [facility] ([place] Comment on above: Performed By: #### C BC, ADIFF, ANEU, BMP, GFR #### [place] [address] Urea nitrogen [Mass/Vol] 14.0 mg/dL Normal 8.0-22.0 [facility] ([place]) Comment on above: Performed By: #### C BC, ADIFF, ANEU, BMP, GFR #### [place] [id number] CBCon 11-27-2020 Erythrocyte distribution width (RBC) [Ratio] 13.9 % Normal 11.5-15.5 [facility] ([place] Comment on above: Performed By: #### C BC, ADIFF, ANEU, BMP, GFR #### [place] [address] Hematocrit (Bld) [Volume fraction] 38.5 % Low 40.0-52.0 [facility] ([place] Comment on above: Performed By: #### C BC, ADIFF, ANEU, BMP, GFR #### [place] [address] Hgb 13.0 G/dL Normal 13.0-17.5 [facility] ([place] Comment on above: Performed By: #### C BC, ADIFF, ANEU, BMP, GFR #### [place] [address] MCH (RBC) [Entitic mass] 30.0 pg Normal 27.0-33.0 [facility] ([place] Comment on above: Performed By: #### C BC, ADIFF, ANEU, BMP, GFR #### [place] [address] MCHC 33.9 G/dL Normal 32.0-36.0 [facility] ([place] Comment on above: Performed By: #### C BC, ADIFF, ANEU, BMP, GFR #### [place] [address] MCV (RBC) [Entitic vol] 88.8 fL Normal 81.0-100.0 [facility] ([place] Comment on above: Performed By: #### C BC, ADIFF, ANEU, BMP, GFR #### [address] [address] Platelet 203 10 3/mcL Normal 150-450 [facility] ([place] Comment on above: Performed By: #### C BC, ADIFF, ANEU, BMP, GFR #### [address] [address] Platelet mean volume (Bld) [Entitic vol] 8.1 fL Normal 6.4-10.5 [facility] ([place] Comment on above: Performed By: #### C BC, ADIFF, ANEU, BMP, GFR #### [place] [id number] RBC 4.33 10 6/mcL Low 4.50-6.00 [facility] ([place] Comment on above: Performed By: #### C BC, ADIFF, ANEU, BMP, GFR #### [address] [address] WBC 5.50 10 3/mcL Normal 4.50-10.80 [facility] ([place] Comment on above: Performed By: #### C BC, ADIFF, ANEU, BMP, GFR #### [place] [address] CT ABDOMEN/PELVIS W/O CONTRA STon 11-27-2020 CT ABDOMEN/PELVIS W/O CONTRAST ORIGINAL COMPUTED TOMOGRAPHY OF THE ABDOMEN AND PELVIS WITHOUT IV CONTRAST (STONE PROTOCOL) Clinical Statement: HEMATURIA. PREVIOUS HX OF STONES. RIGHT flank pain COMPARISON: None. This exam was performed according to our departmental dose optimization program, and includes the following measures where applicable: automated exposure control, adjustment of the mAs and/or kVp according to patient size and/or exam, and an iterative reconstruction algorithm. FINDINGS: The renal stone protocol was utilized. The lack of intravenous and oral contrast will limit evaluation of soft tissue abnormalities in the abdominal viscera. The kidneys are normal in size and shape. No stones, renal mass, or hydronephrosis is identified. The ureters are normal in course. No stone is seen within either ureter or the urinary bladder. No pelvic mass or free fluid is seen. Prostate gland is normal in size. No abnormality is seen in the visualized portions of the unenhanced liver, spleen, pancreas or adrenal glands. The aorta is normal in size. No obvious mesenteric or bowel abnormalities are seen. Moderate amount of stool is present throughout the colon extending to the rectum. Dense material is present within an otherwise normal appendix. In the visualized portions of the lower lungs on the pulmonary windows, no abnormalities are seen. IMPRESSION: Negative study. No radiopaque urinary calculi or obstructive uropathy is seen. Incidental appendicoliths. Interpreted By: Babs Aguirre MD Preliminary Report By: Babs Aguirre MD Electronically Signed By: Babs Aguirre MD Dictated Date: 11/27/2020 1:30:43 AM Prelim Date: 11/27/2020 1:30:43 AM Sign Date: 11/27/2020 1:37:40 AM Ordering Provider:Massimo Bush [facility] ([place]) Provider Note - ED v2on 0 Provider Note - ED v2 Provider Note - ED v2: Chart Review: ED NOTES ED NOTES: ====HPI==== Patient is a 30-year-old male who presents to the emergency department with a chief complaint of seizures. Patient states that he had 2 seizures yesterday evening back to back around 8 PM. He states that they lasted approximately 10 seconds. He states that they were full body convulsions. He states that they were witnessed by his mother. He denies any urinary incontinence or biting his tongue. He states that he came in today because he has been seeing spots. He states that he was on seizure medication for a while but has not been on his medication for approximately 1 year. States that he was on Neurontin for quite some time and this controlled his seizures. He states that nothing helped including the Keppra Dilantin and Depakote and the only thing that seemed to help was his Neurontin. ====Review of Systems==== 10 point system review is negative except for those specifically mentioned in history of present illness ====Physical Exam==== Constitutional/General: Alert and oriented x3, well appearing, nontoxic, and in NAD. Head: Normocephalic and atraumatic. Eyes: PERRL, EOMI, conjunctive normal, sclera nonicteric, subconjunctival layer is pink. Neck: Supple, full ROM, non tender to palpation in the midline, no stridor, no crepitus, no meningeal signs. Trachea at midline. Respiratory: Lungs clear to auscultation bilaterally, no wheezes, rales, or rhonchi, not in respiratory distress. Cardiovascular: Regular rate, regular rhythm, no murmurs, gallops, or rubs, 2+ distal pulses. Chest: normal chest wall movement GI: Abdomen soft, nontender, nondistended, + BS, no organomegaly, no palpable masses, no rebound, guarding, or rigidity. Musculoskeletal: Moves all extremities x4, warm and well perfused, no clubbing, cyanosis, or edema, cap refill <3 seconds Integument: Skin warm and dry, no rashes. Lymphatic: No lymphadenopathy noted. Neurologic: GCS 15, no focal deficits, symmetric strength 5/5 in the upper and lower extremities bilaterally. Psychiatric: Normal affect. ====ED Course and Medical Decision Making==== See MDM section for review of findings & plan of care. Portions of this note were dictated by speech recognition. An attempt at proof reading was made to minimize errors. Minor errors in shrink pit operator may be present. Please call if questions.. HISTORY OF PRESENTING ILLNESS YU is a 30 year old Male and was seen by me at 19-Jul-2020 11:44 for a chief complaint of seizures (had two seizures back to back around 8 last night hx of seizures. has been out of medicine for 1 year I was hoping they had gone away seizure pads applied)(1). Triage Information: Most recent Vital Sign Value Date Temp (F): 98 07-19-2020 11:42 Temp (C): 36.6 07-19-2020 11:42 Heart Rate (beats/min): 91 07-19-2020 11:42 Respirations (breaths/min): 18 07-19-2020 11:42 SpO2 (%): 100 07-19-2020 11:42 BP Systolic (mm Hg): 137 07-19-2020 11:42 BP Diastolic (mm Hg): 86 07-19-2020 11:42 PAST MEDICAL HISTORY ATTESTATION: I have reviewed and confirmed nurse's/medic's notes for patient's medications, allergies, and medical, surgical, family and social history ALLERGIES/INTOLERANCES: Allergy Allergen: Keppra Type: Drug Reaction: Rash HEALTH HISTORY: No documented data. OUTPATIENT MEDICATIONS: Home Medications Review Status for Reconciliation: N/A Med Status: N/A No documented data. SIGNIFICANT EVENTS: Past Medical History Description:Seizure Disorder Description:kidney stones Past Surgical History Description:Tonsillectomy MEDICAL DECISION MAKING/ED COURSE MDM/ED COURSE: Patient is a 30-year-old male who presents to the emergency department with a chief complaint of seizures. His Keppra was going to be ordered for the patient but he states that he is allergic to Keppra. I discussed with the patient was seizure medication has worked for him in the past and he listed a whole bunch of medications that have not worked. He states that the only thing that is works from his Neurontin. He got very upset and got on the phone with his mother who the mother states that she is just going to take the patient to [place]. I spoke with the mother and explained very calmly that they needed to give the patient an anticonvulsant medicine and Neurontin is usually not a standard of care. She states that this is the only medication that works for the patient and I verbalized that I understood that but since the patient is having seizures he would need an anticonvulsant. This is discussed with attending physician, Dr. Carranza who also agreed. Of care was discussed including laboratory studies and CT scan and mother states that we will take him to [place] where there is neurology. Patient agreed and he signed out AGAINST MEDICAL ADVICE. I discussed worsening condition including , disability, and any and all unforeseen events. He verbalized understanding. AMA form was signed in the presence of Mirlande Ayon RN. Patient verbalized that he was not driving. CLINICAL IMPRESSION Diagnosis/Annotation: ED Dx Name:Seizure Code:R56.9 Name:Left against medical advice Code:Z53.29 Disposition: AMA (saw a physician/midlevel provider and clinician was able to provide reasons for staying for treatment & form is signed) ATTESTATION CRITICAL CARE TIME Is this a critically ill patient: no Electronic Signatures: Tomasa Delgadillo (EMILY) (Signed 19-Jul-2020 12:22) Authored: ED Notes, HPI, PMH, MDM/ED Course, Clinical Impression, Attestation, Chart Review, Scores Last Updated: 19-Jul-2020 12:22 by Tomasa Delgadillo (PAC) References: 1. Data Referenced From Triage - ED 19-Jul-2020 11:42 [facility] Risk Screen - Adult Emergenc yon 07-19-2020 Risk Screen - Adult Emergency Preferred Language: Preferred Language: Preferred Language for Discussing Health Care (patient/designee)Eritrean Advanced Directives: Advance Directive/DNRno Family Violence Adult: Abuse Screen: Are you or have you been threatened or abused physically, emotionally, or sexually by anyoneno Learning Assessment (Patient): Learning Assessment (Patient): Patient is Able to be Assessed for Learningyes Factors Influencing Readiness to Learnacuteness of illness Factors that Impact Ability to Learnnone Devices/Methods Used to Communicatenone Learning Preferencesaudio Cultural Considerationsnone Developmental Considerationsnone Restorationism Considerationsnone Learning Assessment (Other Learner): Learning Assessment (Other Learner): Other learner availableno Pressure Injury/TB/Substance: Pressure Injury: Do you have a coughno Substance Use Current or Former Historynever: Street Drugs YES: Cigarette/Tobacco, e-Cigarette/Vaping, Alcohol Smoking Statuscurrent every day smoker Tobaccovaping Alcohol Useoccasionally Admission Risk Screen: Significant IndicatorsComplete CAGE: CAGE: Is this an injured patient at a [place] Center [place]/[place]/ [place] no Electronic Signatures: Brianna Stover (RN) (Signed 19-Jul-2020 11:48) Authored: Preferred Language, Advanced Directives, Family Violence Adult, Learning Assessment (Patient), Learning Assessment (Other Learner), Pressure Injury/TB/Substance, Pressure Injury, CAGE Last Updated: 19-Jul-2020 11:48 by Brianna Stover (RN) [facility] Triage - EDon 07-19-2020 Triage - ED Chart Review: ARRIVAL INFORMATION Means of Arrival: Ambulatory Mode of Arrival: private vehicle Arrival From: home Language: Spoken Language Preferred: Eritrean CHIEF COMPLAINT YU YOUNGER is a Male patient with a chief complaint of seizures (had two seizures back to back around 8 last night hx of seizures. has been out of medicine for 1 year I was hoping they had gone away seizure pads applied). Triage Date/Time: 19-Jul-2020 11:42 Pain Rating (0-10): 0 = None Vital Signs: Temperature: 98.0F ( 36.6C) taken oral Blood Pressure: 137/86 Mean: Heart Rate: 91 Respiratory Rate: 18 Pulse Oximetry: 100% on room air, no respiratory support. Height: 5 feet 8 inches. 172.7 CM Weight: 155.4 pounds. Calculated 70.5 kg. (stated) Calculated BMI (kg/m2): 23.637 Calculated BSA (m2) 1.84 Radha Coma Scale: Best Eye Response: (E4) spontaneous Best Motor Response: (M6) obeys commands Best Verbal Response: (V5) oriented Mercer Score: 15 Allergies: yes Patient has homicidal thoughts: no CALOS: 3 Last Known Well: unknown Risk Screens Suicide Risk Screen In the Past Month: Have you wished you were or wished you could go to sleep and not wake up no In the Past Month: Have you had any actual thoughts of killing yourself no In Your Lifetime: Have you ever done anything, started to do anything, or prepared to do anything to end your life no Phillips Fall Scale Screening Has the patient fallen before (or is the patient in the ED as a result of a fall) has not had a fall Does the patient have an impaired gait does not have impaired gait Is the patient cognitively impaired not cognitively impaired Interventions: Phillips Fall Interventions: LOW INTERVENTIONS: *patient oriented to surroundings and call system, * patient/family falls education completed and documented, *patients fall status communicated during bedside handoff, *whiteboard updated, *mode of toileting discussed with patient, *bed in low position with brakes locked, *call light in reach, * non-skid footwear TRAVEL HISTORY Travel History Coronavirus Screening: no exposure or symptoms PAIN Pain Scale Used: URIEL Pain Rating (0-10): 0 = None Past Medical History: Past Medical History Reviewedyes Tonsillectomy: Past Surgical History, Active kidney stones: Past Medical History, Active Seizure Disorder: Past Medical History, Active Electronic Signatures: Brianna Stover (RONNY) (Signed 19-Jul-2020 11:47) Authored: Quick Triage, Risk Screens, Pain, Arrival, Chart Review, Scores, Past Medical History Last Updated: 19-Jul-2020 11:47 by Brianna Stover) [facility] ECG 12-LEADon 12-04-2018 Caleb Starr DO 12/04/2018 3:14 AM ECG 12- Lead Date/Time: 12/04/2018 3:13 AM Performed by: Caleb Starr DO Authorized by: Caleb Starr DO Interpreted by ED physician: Normal sinus rhythm rate of [address] segment changes normal P wave and QRS axis. BPM: 89 [facility] Otheron 12-04-2018 Extra Tube Hold for add-ons. [facility] Comment on above: Auto resulted. TROPONINon 12-04-2018 Troponin I.cardiac [Mass/Vol] ng/mL <=45 ng/L [facility] Troponin I.cardiac [Mass/Vol] Normal [facility] Basic Metabolic Panelon 07-18 Calcium mass conc 9.0 mg/dL Normal 8.4-10.2 [facility] Comment on above: Performed By: #### C BCDIF, CHEM8 #### Unless otherwise noted, all testing performed by [place] [address] CLIA: [id number] Licensing Coordinator: Dallin Donahue M.D. Chloride molar conc 107 mmol/L Normal 98-108 [facility] Comment on above: Performed By: #### C BCDIF, CHEM8 #### Unless otherwise noted, all testing performed by [place] [address] CLIA: [id number] Licensing Coordinator: Dallin Donahue M.D. CO2 molar conc 27 mmol/L Normal 21-32 [facility] Comment on above: Performed By: #### C BCDIF, CHEM8 #### Unless otherwise noted, all testing performed by [place] [address] CLIA: [id number] Licensing Coordinator: Dallin Donahue M.D. Creatinine mass conc 1.03 mg/dL Normal 0.50-1.30 [facility] Comment on above: Performed By: #### C BCDIF, CHEM8 #### Unless otherwise noted, all testing performed by [place] [address] CLIA: [id number] Licensing Coordinator: Dallin Donahue M.D. GFR/1.73 sq M predicted among blacks MDRD vol rate/area (S/P/Bld) mL/min/{1.73_m2} Normal [facility] Comment on above: Result Comment: Afri can Peruvian GFR Calc Performed By: #### C BCDIF, CHEM8 #### Unless otherwise noted, all testing performed by [place] [address] CLIA: [id number] Licensing Coordinator: Dallin Donahue M.D. GFR/1.73 sq M predicted among non-blacks MDRD vol rate/area (S/P/Bld) mL/min/{1.73_m2} [facility] Comment on above: Result Comment: Non- GFR Calc eGFR is an estimated Glomerular Filtration Rate based on the value of the patient's serum creatinine. In outpatients, eGFR should be used as a helpful tool in screening for CKD. In inpatients or patients with acute renal failure, eGFR represents the GFR at the moment of the draw and should be used with caution. Performed By: #### C BCDIF, CHEM8 #### Unless otherwise noted, all testing performed by [place] [address] CLIA: [id number] Licensing Coordinator: Dallin Donahue M.D. Glucose mass conc 100 mg/dL High 70-99 [facility] Comment on above: Result Comment: This test result might be falsely depressed or falsely elevated on samples drawn from patients taking Sulfasalazine and Sulfapyridine. Venipuncture should occur prior to taking either of these drugs. Performed By: #### C BCDIF, CHEM8 #### Unless otherwise noted, all testing performed by [place] [address] CLIA: [id number] Licensing Coordinator: Dallin Donahue M.D. Potassium molar conc 3.9 mmol/L Normal 3.5-5.1 [facility] Comment on above: Performed By: #### C BCDIF, CHEM8 #### Unless otherwise noted, all testing performed by [place] [address] CLIA: [id number] Licensing Coordinator: Dallin Donahue M.D. Sodium molar conc 139 mmol/L Normal 135-145 [facility] Comment on above: Performed By: #### C BCDIF, CHEM8 #### Unless otherwise noted, all testing performed by [place] [phone] CLIA: [id number] Licensing Coordinator: Dallin Donahue M.D. Urea nitrogen mass conc 12 mg/dL Normal 8-25 [facility] Comment on above: Performed By: #### C BCDIF, CHEM8 #### Unless otherwise noted, all testing performed by [place] [phone] CLIA: [id number] Licensing Coordinator: Dallin Donahue M.D. CBC with Diffon 07-27-2018 Basophils #/vol (Bld) 0.1 K/mcL Normal 0-0.2 [facility] Comment on above: Performed By: #### C BCDIF, CHEM8 #### Unless otherwise noted, all testing performed by [place] [address] CLIA: [id number] Licensing Coordinator: Dallin Donahue M.D. Basophils/100 WBC (Bld) 0.8 % Normal [facility] Comment on above: Performed By: #### C BCDIF, CHEM8 #### Unless otherwise noted, all testing performed by [place] [address] CLIA: [id number] Licensing Coordinator: Dallin Donahue M.D. Eosinophils #/vol (Bld) 0.1 K/mcL Normal 0-0.5 [facility] Comment on above: Performed By: #### C BCDIF, CHEM8 #### Unless otherwise noted, all testing performed by [place] [address] CLIA: [id number] Licensing Coordinator: Dallin Donahue M.D. Eosinophils/100 WBC (Bld) 1.5 % Normal [facility] Comment on above: Performed By: #### C BCDIF, CHEM8 #### Unless otherwise noted, all testing performed by [place] [address] CLIA: [id number] Licensing Coordinator: Dallin Donahue M.D. Erythrocyte distribution width Ratio (RBC) 12.7 % Normal 10-14.3 [facility] Comment on above: Performed By: #### C BCDIF, CHEM8 #### Unless otherwise noted, all testing performed by [place] [address] CLIA: [id number] Licensing Coordinator: Dallin Donahue M.D. Hematocrit Volume Fraction (Bld) 43.3 % Normal 37.9-49.2 [facility] Comment on above: Performed By: #### C BCDIF, CHEM8 #### Unless otherwise noted, all [facility] [place] [address] CLIA: [id number] Licensing Coordinator: Dallin Donahue M.D. Hemoglobin mass conc (Bld) 14.6 g/dL Normal 12.9-16.9 [facility] Comment on above: Performed By: #### C BCDIF, CHEM8 #### Unless otherwise noted, all testing performed by [place] [address] CLIA: [id number] Licensing Coordinator: Dallin Donahue M.D. Lymphocytes #/vol (Bld) 1.7 K/mcL Normal 0.9-3.6 [facility] Comment on above: Performed By: #### C BCDIF, CHEM8 #### Unless otherwise noted, all testing performed by [place] [address] CLIA: [id number] Licensing Coordinator: Dallin Donahue M.D. Lymphocytes/100 WBC (Bld) 27.1 % Normal [facility] Comment on above: Performed By: #### C BCDIF, CHEM8 #### Unless otherwise noted, all testing performed by [place] [address] CLIA: [id number] Licensing Coordinator: Dallin Donahue M.D. MCH Entitic mass (RBC) 30.3 pg Normal 27.7-34.6 [facility] Comment on above: Performed By: #### C BCDIF, CHEM8 #### Unless otherwise noted, all testing performed by [place] [address] CLIA: [id number] Licensing Coordinator: Dallin Donahue M.D. MCHC mass conc (RBC) 33.7 g/dL Normal 32.9-35.5 [facility] Comment on above: Performed By: #### C BCDIF, CHEM8 #### Unless otherwise noted, all testing performed by [place] [address] CLIA: [id number] Licensing Coordinator: Dallin Donahue M.D. MCV Entitic volume (RBC) 89.9 fL Normal 82.8-99.3 [facility] Comment on above: Performed By: #### C BCDIF, CHEM8 #### Unless otherwise noted, all testing performed by [place] [phone] CLIA: [id number] Licensing Coordinator: Dallin Donahue M.D. Monocytes #/vol (Bld) 0.8 K/mcL High 0.2-0.6 [facility] Comment on above: Performed By: #### C BCDIF, CHEM8 #### Unless otherwise noted, all testing performed by [place] [phone] CLIA: [id number] Licensing Coordinator: Dallin Donahue M.D. Monocytes/100 WBC (Bld) 12.1 % Normal [facility] Comment on above: Performed By: #### C BCDIF, CHEM8 #### Unless otherwise noted, all testing performed by [place] [phone] CLIA: [id number] Licensing Coordinator: Dallin Donahue M.D. Neutrophils #/vol (Bld) 3.7 K/mcL Normal 1.4-6.8 [facility] Comment on above: Performed By: #### C BCDIF, CHEM8 #### Unless otherwise noted, all testing performed by [address], [place] [address] CLIA: [id number] Licensing Coordinator: Dallin Donahue M.D. Platelet mean volume Entitic volume (Bld) 8.6 fL Normal 6.6-10.8 [facility] Comment on above: Performed By: #### C BCDIF, CHEM8 #### Unless otherwise noted, all testing performed by [place] [address] CLIA: [id number] Licensing Coordinator: Dallin Donahue M.D. Platelets #/vol (Bld) 219 K/mcL Normal 139-354 [facility] Comment on above: Performed By: #### C BCDIF, CHEM8 #### Unless otherwise noted, all testing performed by [place] [address] CLIA: [id number] Licensing Coordinator: Dallin Donahue M.D. RBC #/vol (Bld) 4.82 M/mcL Normal 4.0-5.5 [facility] Comment on above: Performed By: #### C BCDIF, CHEM8 #### Unless otherwise noted, all testing performed by [place] [address] CLIA: [id number] Licensing Coordinator: Dallin Donahue M.D. Segmented Neut % 58.5 % Normal [facility] Comment on above: Performed By: #### C BCDIF, CHEM8 #### Unless otherwise noted, all testing performed by [place] [address] CLIA: [id number] Licensing Coordinator: Dallin Donahue M.D. WBC #/vol (Bld) 6.4 K/mcL Normal 3.6-10.4 [facility] Comment on above: Performed By: #### C BCDIF, CHEM8 #### Unless otherwise noted, all testing performed by [facility] [address] [place], [place] [address] CLIA: [id number] Licensing Coordinator: Dallin Donahue M.D. CT ABDO,PELVIS W/O CONTRASTo n 07-27-2018 CT ABDO,PELVIS W/O CONTRAST Final Report Accession No: [id number] Performed: Jul 26 2018 11:37PM Examination: CT ABDO,PELVIS W/O CONTRAST EXAM: CT ABDO,PELVIS W/O CONTRAST CLINICAL STATEMENT: Right flank pain. Difficulty urinating. Hematuria. COMPARISON: 03/15/2009. TECHNIQUE: CT examination of the abdomen and pelvis without IV contrast. Coronal and sagittal reformations were performed. Dose reduction techniques were achieved by using automated exposure control and/or adjustment of mA and/or kV according to patient size and/or use of iterative reconstruction technique. FINDINGS: The visualized lung bases and pleural spaces are clear. Allowing for the lack of intravenous contrast, the liver, spleen, pancreas, adrenal glands, and the kidneys are unremarkable. No renal or ureteral calculi are identified. No enlarged lymph nodes are visualized within the abdomen or the pelvis. The appendix has normal appearance. Fairly extensive volume of stool is present throughout the colon to the level of the rectum. Prominent disc protrusion is present at L4-L5, with this associated deformity upon the ventral aspect of the thecal sac. IMPRESSION: 1. No renal or ureteral calculi are present. 2. Normal appendix. No inflammatory changes are visualized within the abdomen or the pelvis. 3. Fairly extensive volume of stool is present throughout the colon to the level of the rectum. 4. Prominent L4-L5 disc protrusion with associated deformity upon the ventral aspect of the thecal sac. Interpreting Physician: BABS WEN M.D. Trans: cwion : cc: Normal [facility] US SCROTUMon 07-27-2018 US SCROTUM Final Report Accession No: [id number] Performed: Jul 27 2018 1:42AM Examination: US SCROTUM ULTRASOUND OF SCROTUM CLINICAL HISTORY: Scrotal pain. COMPARISON: 07/26/2018. TECHNIQUE: Duplex scan of the bilateral testes was performed using B-Mode/peres scale imaging, Doppler spectral analysis, and color-flow in multiple planes using real-time ultrasound. FINDINGS: The right testicle measures 4 x 3 x 2 cm and demonstrates arterial and venous flow. The right epididymis measures up to 0.7 x 0.9 x 0.8 cm. The left testicle measures up to 4 x 3 x 2 cm and demonstrates arterial and venous flow. The left epididymis measures up to 1 cm. Left epididymal head cyst noted measuring up to 0.3 cm. IMPRESSION: No sonographic evidence for testicular torsion or infection. No evidence for epididymitis. Interpreting Physician: AUSTYN CARTER M.D. Trans: cwion : cc: Normal [facility] Urinalysis, Routineon 2018 Bilirubin,Urine Negative Normal NEG;NEGATIVE [facility] Comment on above: Performed By: #### U A #### Unless otherwise noted, all testing performed by [place] [address] CLIA: [id number] Licensing Coordinator: Dallin Donahue M.D. Blood,Urine Large Abnormal NEG;NEGATIVE [facility] Comment on above: Performed By: #### U A #### Unless otherwise noted, all testing performed by [place] [address] CLIA: [id number] Licensing Coordinator: Dallin Donahue M.D. Character Nom (U) Hazy Normal [facility] Comment on above: Performed By: #### U A #### Unless otherwise noted, all testing performed by [place] [address] CLIA: [id number] Licensing Coordinator: Dallin Donahue M.D. Color Nom (U) Yellow Normal [facility] Comment on above: Performed By: #### U A #### Unless otherwise noted, all testing performed by [place] [phone] CLIA: [id number] Licensing Coordinator: Dallin Donahue M.D. Glucose Ql (U) Negative Normal NEG;NEGATIVE [facility] Comment on above: Performed By: #### U A #### Unless otherwise noted, all testing performed by [place] [phone] CLIA: [id number] Licensing Coordinator: Dallin Donahue M.D. Ketone,Urine Negative Normal NEG;NEGATIVE [facility] Comment on above: Performed By: #### U A #### Unless otherwise noted, all testing performed by [place] [phone] CLIA: [id number] Licensing Coordinator: Dallin Donahue M.D. Leuk.Esterase,Urine Negative Normal Negative [facility] Comment on above: Performed By: #### U A #### Unless otherwise noted, all testing performed by [place] [phone] CLIA: [id number] Licensing Coordinator: Dallin Donahue M.D. Nitrite,Urine Negative Normal NEG;NEGATIVE [facility] Comment on above: Performed By: #### U A #### Unless otherwise noted, all testing performed by [place] [phone] CLIA: [id number] Licensing Coordinator: Dallin Donahue M.D. pH (U) 7.0 [pH] Normal 4.5-8.0 [facility] Comment on above: Performed By: #### U A #### Unless otherwise noted, all testing performed by [place] [address] CLIA: [id number] Licensing Coordinator: Dallin Donahue M.D. Protein mass conc (U) Negative Normal NEG;NEGATIVE [facility] Comment on above: Performed By: #### U A #### Unless otherwise noted, all testing performed by [place] [address] CLIA: [id number] Licensing Coordinator: Dallin Donahue M.D. RBC LM.HPF #/area (Urine sed) /[HPF] High 0-5 [facility] Comment on above: Performed By: #### U A #### Unless otherwise noted, all testing performed by [place] [address] CLIA: [id number] Licensing Coordinator: Dallin Donahue M.D. Specific [place],Urine 1.018 Normal 1.003-1.029 [facility] Comment on above: Performed By: #### U A #### Unless otherwise noted, all testing performed by [place] [address] CLIA: [id number] Licensing Coordinator: Dallin Donahue M.D. Urobilinogen,Urine NORMAL [facility] Comment on above: Result Comment: Urob ilinogen, Urine Reference Range: <2.0 mg/dL Performed By: #### U A #### Unless otherwise noted, all testing performed by [place] [address] CLIA: [id number] Licensing Coordinator: Dallin Donahue M.D. WBC,Urine 3 /HPF Normal 0-5 [facility] Comment on above: Performed By: #### U A #### Unless otherwise noted, all testing performed by [facility] [address] [place], [place] [address] CLIA: [id number] Licensing Coordinator: Dallin Donahue M.D. Basic Metabolic Panelon Calcium mass conc 9.0 mg/dL 8.4 - 10.2 mg/dL [facility] Chloride molar conc 107 mmol/L 98 - 108 mmol/L [facility] CO2 molar conc 27 mmol/L 21 - 32 mmol/L [facility] Creatinine mass conc 1.03 mg/dL 0.5 - 1 .3 mg/dL [facility] GFR/1.73 sq M predicted among blacks MDRD vol rate/area (S/P/Bld) mL/min/{1.73_m2} ml/min/1.73s q.m [facility] Comment on above: GFR Calc GFR/1.73 sq M predicted among non-blacks MDRD vol rate/area (S/P/Bld) mL/min/{1.73_m2} ml/min/1.73s q.m [facility] Comment on above: Non- GFR Calc eGFR is an estimated Glomerular Filtration Rate based on the value of the patient's serum creatinine. In outpatients, eGFR should be used as a helpful tool in screening for CKD. In inpatients or patients with acute renal failure, eGFR represents the GFR at the moment of the draw and should be used with caution. Glucose mass conc 100 mg/dL High 70 - 99 mg/dL [facility] Comment on above: This test result sharri ht be falsely depressed or falsely elevated on samples drawn from patients taking Sulfasalazine and Sulfapyridine. Venipuncture should occur prior to taking either of these drugs. Interpretation and review of laboratory results Abnormal [facility] Potassium molar conc 3.9 mmol/L 3.5 - 5 .1 mmol/L [facility] Sodium molar conc 139 mmol/L 135 - 145 mmol/L [facility] Urea nitrogen mass conc 12 mg/dL 8 - 25 mg/dL [facility] CBC AND DIFFERENTIALon 07-26 Basophils #/vol (Bld) 0.1 10*3/uL [facility] Basophils/100 WBC (Bld) 0.8 % [facility] Eosinophils #/vol (Bld) 0.1 10*3/uL [facility] Eosinophils/100 WBC (Bld) 1.5 % [facility] Erythrocyte distribution width Ratio (RBC) 12.7 % 10 - 14.3 % [facility] Hematocrit Volume Fraction (Bld) 43.3 % 37.9 - 49.2 % [facility] Hemoglobin mass conc (Bld) 14.6 g/dL 12.9 - 16.9 g/dL [facility] Interpretation and review of laboratory results Abnormal [facility] Lymphocytes #/vol (Bld) 1.7 10*3/uL [facility] Lymphocytes/100 WBC (Bld) 27.1 % [facility] MCH Entitic mass (RBC) 30.3 pg 27.7 - 34.6 pg [facility] MCHC mass conc (RBC) 33.7 g/dL 32.9 - 35.5 g/dL [facility] MCV Entitic volume (RBC) 89.9 fL [facility] Monocytes #/vol (Bld) 0.8 10*3/uL High [facility] Monocytes/100 WBC (Bld) 12.1 % [facility] Neutrophils #/vol (Bld) 3.7 10*3/uL [facility] Platelet mean volume Entitic volume (Bld) 8.6 fL [facility] Platelets #/vol (Bld) 219 10*3/uL [facility] RBC #/vol (Bld) 4.82 10*6/uL [facility] Segmented Neut 58.5 % [facility] WBC #/vol (Bld) 6.4 10*3/uL [facility] URINALYSISon 07-26-2018 Bilirubin, Urine Negative NEG;NEGATIVE [facility] Blood, Urine Large Abnormal NEG;NEGATIVE [facility] Character Nom (U) Hazy [facility] Color Nom (U) Yellow [facility] Glucose Ql (U) Negative NEG;NEGATIVE mg/dL [facility] Interpretation and review of laboratory results Abnormal [facility] Ketones Ql (U) Negative NEG;NEGATIVE mg/dL [facility] Leukocyte esterase Test strip Ql (U) Negative Negative [facility] Nitrite, Urine Negative NEG;NEGATIVE [facility] pH (U) 7.0 [pH] [facility] Protein mass conc (U) Negative NEG;NE GATIVE mg/dL [facility] RBC #/vol (U) /uL High [facility] Specific gravity Relative Density (U) 1.018 [facility] Urobilinogen, Urine NORMAL mg/dL [facility] Comment on above: Urobilinogen, Urine Reference Range: <2.0 mg/dL WBCs, Urine 3 [facility] Basic Metabolic Panelon 10- Calcium mass conc 9.6 mg/dL Normal 8.4-10.2 [facility] Comment on above: Performed By: #### C HEM8, MG #### Unless otherwise noted, all testing performed by [place] [address] CLIA: [id number] Licensing Coordinator: Dallin Donahue M.D. Chloride molar conc 107 mmol/L Normal 98-108 [facility] Comment on above: Performed By: #### C HEM8, MG #### Unless otherwise noted, all testing performed by [place] [phone] CLIA: [id number] Licensing Coordinator: Dallin Donahue M.D. CO2 molar conc 31 mmol/L Normal 21-32 [facility] Comment on above: Performed By: #### C HEM8, MG #### Unless otherwise noted, all testing performed by [place] [address] CLIA: [id number] Licensing Coordinator: Dallin Donahue M.D. Creatinine mass conc 0.89 mg/dL Normal 0.50-1.30 [facility] Comment on above: Performed By: #### C HEM8, MG #### Unless otherwise noted, all testing performed by [place] [address] CLIA: [id number] Licensing Coordinator: Dallin Donahue M.D. GFR/1.73 sq M predicted among blacks MDRD vol rate/area (S/P/Bld) mL/min/{1.73_m2} Normal [facility] Comment on above: Result Comment: Afri can Peruvian GFR Calc Performed By: #### C HEM8, MG #### Unless otherwise noted, all testing performed by [place] [address] CLIA: [id number] Licensing Coordinator: Dallin Donahue M.D. GFR/1.73 sq M predicted among non-blacks MDRD vol rate/area (S/P/Bld) mL/min/{1.73_m2} Normal [facility] Comment on above: Result Comment: Non- GFR Calc eGFR is an estimated Glomerular Filtration Rate based on the value of the patient's serum creatinine. In outpatients, eGFR should be used as a helpful tool in screening for CKD. In inpatients or patients with acute renal failure, eGFR represents the GFR at the moment of the draw and should be used with caution. Performed By: #### C HEM8, MG #### Unless otherwise noted, all testing performed by [place] [address] CLIA: [id number] Licensing Coordinator: Dallin Donahue M.D. Glucose mass conc 86 mg/dL Normal 70-99 [facility] Comment on above: Result Comment: This test result might be falsely depressed or falsely elevated on samples drawn from patients taking Sulfasalazine and Sulfapyridine. Venipuncture should occur prior to taking either of these drugs. Performed By: #### C HEM8, MG #### Unless otherwise noted, all testing performed by [place] [address] CLIA: [id number] Licensing Coordinator: Dallin Donahue M.D. Potassium molar conc 4.6 mmol/L Normal 3.5-5.1 [facility] Comment on above: Performed By: #### C HEM8, MG #### Unless otherwise noted, all testing performed by [facility] [place] [address] CLIA: [id number] Licensing Coordinator: Dallin Donahue M.D. Sodium molar conc 141 mmol/L Normal 135-145 [facility] Comment on above: Performed By: #### C HEM8, MG #### Unless otherwise noted, all testing performed by [place] [address] CLIA: [id number] Licensing Coordinator: Dallin Donahue M.D. Urea nitrogen mass conc 16 mg/dL Normal 8-25 [facility] Comment on above: Performed By: #### C HEM8, MG #### Unless otherwise noted, all testing performed by [place] [address] CLIA: [id number] Licensing Coordinator: Dallin Donahue M.D. Magnesiumon 04-02-2018 Magnesium mass conc 2.3 mg/dL Normal 1.6-2.4 [facility] Comment on above: Performed By: #### C HEM8, MG #### Unless otherwise noted, all testing performed by [place] [address] CLIA: [id number] Licensing Coordinator: Dallin Donahue M.D. C URINEon 12-15-2017 C URINE [facility] [address] [facility], [id number] Name: YU YOUNGER : 1990 Admitting Provider:Gender: Male Financial [id number] Number: Location: [facility]; EX22; 1Admit 12/12/2017Date:Discharge 12/12/2017Date: MicrobiologyPROCEDURE: C URINE CLEAN CATCH BODY SITE:COLLECTED DATE/TIME: 12/12/2017 22:10 EDT RECEIVED DATE/TIME: 12/13/2017 07:09 EDTSTART DATE/TIME: 12/13/2017 07:09 EDT FREE TEXT SOURCE:ORDERING PHYSICIAN: YU CRUMP MDFINAL REPORTSFinal Report []Verified Date/Time: 12/15/2017 07:23 EDT80,000 cfu/ml Escherichia coliSUSCEPTIBILITY RESULTS Escherichia coliAntibiotic SUSY DilAmp/Sulbactam 4Ampicillin 8Aztreonam <=1Cefazolin <=4Ciprofloxacin <0.25Gentamicin <=1Nitrofurantoin <=16Piperacillin/Tazobact am <=4Trimethoprim/Sulfameth oxazole <=20 Escherichia coliAntibiotic SUSY InterpAmp/Sulbactam SusceptibleAmpicillin SusceptibleAztreonam SusceptibleCefazolin Susceptible L=Low, H= High, *= Abnormal, C=Critical, f=Footnote,c=Corrected, i=Interp DataName: YU YOUNGERMRN: [id number] Print Date/ 12/15/2017 07:23 EDT [facility] [facility] [id number] Name: YU YOUNGER : 1990 Admitting Provider:Gender: Male Financial [phone] Number: Location: [facility]; EX22; 1Admit 12/12/2017Date:Discharge 12/12/2017Date: MicrobiologySUSCEPTIBI LITY RESULTS Escherichia coliAntibiotic SUSY InterpCiprofloxacin SusceptibleGentamicin SusceptibleNitrofurantoin SusceptiblePiperacillin/T azobactam SusceptibleTrimethoprim/S ulfamethoxazole Susceptible L=Low, H= High, *= Abnormal, C=Critical, f=Footnote,c=Corrected, i=Interp DataName: HARI YOUNGER: [id number] Print Date12/15/2017 07:23 EDT Time: Normal [facility] Comment on above: Performed By: #### 1 [id number] ####[facility] [address] [place], [place] [id number] Medical Director: Kelvin Zamorano MD [facility]2017 Albumin/Globulin Ratio 1.1 {ratio} Normal [facility] Comment on above: Performed By: #### 9 [id number], 125243, 796250 ####[facility] [address] [place], [place] [id number] Medical Director: Kelvin Zamorano MD BUN/Creatinine Ratio 11.0 mg/mg Normal [facility] Comment on above: Performed By: #### 9 [id number], [id number], [id number] ####[facility] [address] [place] [address] Medical Director: Kelvin Zamorano MD eGFR (non-black) mL/min/{1.73_m2} Normal [facility] Comment on above: Result Comment: Non GFR CalcMedical judgement is necessary to interpret GFR. The calculated GFR may not accurately reflect renal status in patients >70 years, women, acutely ill hospitalized patients and patients with acute renal failure or known renal disease. The MDRD GFR formula is valid only for adults greater than 18 years of age.Note:Creatinine clearance (not GFR) should be used for drug dosing. Performed By: #### 9 120245, 894171, [id number] ####[facility] [address] [place] [address] Medical Director: Kelvin Zamorano MD Result Comment: Afri can Peruvian GFR CalcMedical judgement is necessary to interpret GFR. The calculated GFR may not accurately reflect renal status in patients >70 years, women, acutely ill hospitalized patients and patients with acute renal failure or known renal disease. The MDRD GFR formula is valid only for adults greater than 18 years of age.Note:Creatinine clearance (not GFR) should be used for drug dosing. Osmolality 279 mOsm/kg Normal 275-295 [facility] Comment on above: Performed By: #### 9 [id number], 395620, 458672 ####[facility] [address] [place] [address] Medical Director: Kelvin Zamorano MD Albumin 4.0 g/dL Normal 3.4-5.0 [facility] Comment on above: Performed By: #### 9 [id number], 620874, 662956 ####[facility] [address] [place] [address] Medical Director: Kelvin Zamorano MD Alk Phos 97 unit/L Normal 45-117 [facility] Comment on above: Performed By: #### 9 487938, 776984, 558643 ####[facility] [address] [place] [address] Medical Director: Kelvin Zamorano MD Bilirubin (total) 0.34 mg/dL Normal 0.20-1.00 [facility] Comment on above: Performed By: #### 9 130718, 577231, 874637 ####[facility] [address] [place] [address] Medical Director: Kelvin Zamorano MD Calcium 8.8 mg/dL Normal 8.5-10.5 [facility] Comment on above: Performed By: #### 9 362222, 197214, 950978 ####[facility] [address] [place] [address] Medical Director: Kelvin Zamorano MD Chloride 106 mmol/L Normal 100-109 [facility] Comment on above: Performed By: #### 9 988635, 746146, 930965 ####[facility] [address] [place] [address] Medical Director: Kelvin Zamorano MD CO2 31.1 mmol/L Normal 21.0-32.0 [facility] Comment on above: Performed By: #### 9 465821, 781853, 263228 ####[facility] [address] [place] [address] Medical Director: Kelvin Zamorano MD Creatinine 1.1 mg/dL Normal 0.7-1.3 [facility] Comment on above: Performed By: #### 9 074503, 895100, 140329 ####[facility] [address] [place] [address] Medical Director: Kelvin Zamorano MD Globulin 3.8 g/dL Normal [facility] Comment on above: Performed By: #### 9 119559, 968753, 498203 ####[facility] [address] [place] [address] Medical Director: Kelvin Zamorano MD Glucose mass conc 92 mg/dL Normal 72-100 [facility] Comment on above: Result Comment: Candice puncture should occur prior to sulfasalazine administration due to the potential for falsely depressed results. Venipuncture should occur prior to sulfapyridine administration due to the potential falsely elevated results.Baseline assay values before administration of sulfasalazine and sulfapyridine therapy would not be affected. Performed By: #### 9 [id number], [id number], [id number] ####[facility] [address] [place] [address] Medical Director: Kelvin Zamorano MD GOT 13 unit/L Low 15-37 [facility] Comment on above: Result Comment: Candice puncture should occur prior to sulfasalazine and/or sulfapyridine administration due to the potential for falsely depressed results.Baseline assay values before administration of sulfasalazine and sulfapyridine therapy would not be affected. Performed By: #### 9 [id number], [id number], [id number] ####[facility] [address] [place] [address] Medical Director: Kelvin Zamorano MD GPT 17 unit/L Normal 16-61 [facility] Comment on above: Result Comment: Candice puncture should occur prior to sulfasalazine and/or sulfapyridine administration due to the potential for falsely depressed results.Baseline assay values before administration of sulfasalazine and sulfapyridine therapy would not be affected. Performed By: #### 9 [id number], [id number], [id number] ####[facility] [address] [place] [address] Medical Director: Kelvin Zamorano MD Potassium molar conc 3.8 mmol/L Normal 3.5-5.1 [facility] Comment on above: Performed By: #### 9 [id number], 683329, [id number] ####[facility] [address]14 [place] [address] Medical Director: Kelvin Zamorano MD Protein 7.8 g/dL Normal 6.0-8.5 [facility] Comment on above: Performed By: #### 9 437014, 393188, 589047 ####[facility] [address]clx[address]xp[address] [place] [address] Medical Director: Kelvin Zamorano MD Sodium 140 mmol/L Normal 135-145 [facility] Comment on above: Performed By: #### 9 568510, 448332, 482405 ####[facility] [address] [place] [address] Medical Director: Kelvin Zamorano MD Urea nitrogen 12 mg/dL Normal 10-20 [facility] Comment on above: Performed By: #### 9 [id number], 380548, 935302 ####[facility] [address] [place] [id number] Medical Director: Kelvin Zamorano MD ED Physician Reporton 2017 ED Physician Report Patient: YU YOUNGER Age: 27 years Sex: Male : 1990 Associated Diagnoses: Acute right-sided low back pain; Bulging lumbar disc Author: YU CRUMP MD Basic Information Time seen: Time Seen:YU CRUMP MD / 12/12/2017 20:46. History source: Patient, father. Arrival mode: Private vehicle. History limitation: None. Additional information: Patient's physician(s): None. History of Present Illness The patient presents with flank pain. The onset was 2 hours ago. The course/duration of symptoms is intermittent. The character of symptoms is crampy. The degree at present is 6 /10. The Location of pain at present is right and flank. Risk factors consist of kidney stones. Associated symptoms: nausea, dysuria and hematuria. This is a 27 year old male who presents to the ED for evaluation of intermittent RIGHT flank pain onset 2 hours ago. He also c/o hematuria, dysuria, and nausea. Pt notes hx of kidney stones and states this feels like his prior episodes of kidney stones. He took Ibuprofen at 1800 with minimal relief. He notes his last kidney stone was a couple months ago. He denies testicular pain, abd pain, urinary frequency, and recent trauma. No other concerns are voiced at this time. . Review of Systems Constitutional symptoms: Negative except as documented in HPI. Skin symptoms: Negative except as documented in HPI. Eye symptoms: Negative except as documented in HPI. ENMT symptoms: Negative except as documented in HPI. Respiratory symptoms: Negative except as documented in HPI. Cardiovascular symptoms: Negative except as documented in HPI. Gastrointestinal symptoms: Negative except as documented in HPI. Genitourinary symptoms: Negative except as documented in HPI. Musculoskeletal symptoms: Negative except as documented in HPI. Psychiatric symptoms: Negative except as documented in HPI. Endocrine symptoms: Negative except as documented in HPI. Hematologic/Lymphatic symptoms: Negative except as documented in HPI. Allergy/immunologic symptoms: Negative except as documented in HPI. Neurologic symptoms Negative except as documented in HPI. Additional review of systems information: All other systems reviewed and otherwise negative. Health Status Allergies: Allergic Reactions (All)No Known Medication Allergies. Medications: (Selected) Inpatient MedicationsOrderedNormal Saline Bolus (0.9%NaCl) ED or SEPSIS USE ONLY: 1,000 mL, 1000 mL/hr, Fluid Bolus IVPB, ONCEketorolac = Toradol: 30 mg = 1 mL, IV Push, ONCEmorphine: 4 mg = 2 mL, IV Push, ONCE, per nurse's notes. Past Medical/ Family/ Social History Medical history: Reviewed as documented in chart, kidney stones. Surgical history: Negative. Family history: Reviewed as documented in chart, kidney stones. Problem list: Active Problems (1)Kidney stone , per nurse's notes. Physical Examination Vital Signs Vital Signs 12/12/2017 20:55 EDT Temperature Oral 37.1 degC NORMAL Peripheral Pulse Rate 87 bpm NORMAL Respiratory Rate 16 br/min NORMAL Systolic Blood Pressure 132 mmHg NORMAL Diastolic Blood Pressure 82 mmHg NORMAL SpO2 100 % NORMAL Oxygen Flow Rate 0 L/min Oxygen Therapy Room air Height/Length Dosing 172.72 cm Weight Dosing 63.6 kg Body Mass Index Dosing 21 . Per nurse's notes. General: Alert, mild distress, well hydrated, well nourished. Skin: Warm, dry, no rash. Head: Normocephalic, atraumatic. Neck: Supple, trachea midline. Eye: Pupils are equal, round and reactive to light, extraocular movements are intact. Ears, nose, mouth and throat: Oral mucosa moist. Cardiovascular: Regular rate and rhythm, No murmur, No edema, no gallops, no calf pain, No cardiac rub, Respiratory: Lungs are clear to auscultation, respirations are non-labored, breath sounds are equal. Gastrointestinal: Soft, Nontender, Non distended, Normal bowel sounds. Back: Normal range of motion, RIGHT flank pain to percussion. Musculoskeletal: Normal ROM, normal strength. Lymphatics: No lymphadenopathy. Psychiatric: Cooperative. Neurological Alert and oriented to person, place, time, and situation, No focal neurological deficit observed, normal sensory observed, normal motor observed, normal speech observed. Medical Decision Making Documents reviewed: Emergency department nurses' notes, flowsheet, emergency department records, prior records. Results review: Lab results : Laboratory 12/12/2017 22:10 EDT Color, U Yellow Appearance, U Clear Specific [place], U 1.023 NORMAL pH, U 6.0 NORMAL Protein, U Negative Glucose Qual, U Negative Ketones, U Negative Bilirubin, U Negative Blood, U Negative Urobilinogen Qual, U 2.0 mg/dl Nitrite, U Negative Leukocyte Esterase, U Trace RBC/HPF, U 1 #/HPF NORMAL WBC/HPF, U 2 #/HPF NORMAL Mucous, U Occasional Calcium Oxalate Crystals Occasional 12/12/2017 22:07 EDT Estimated Creatinine Clearance 97.59 mL/min 12/12/2017 21:15 EDT BUN 12 mg/dL NORMAL Na 140 mmol/L NORMAL K 3.8 mmol/L NORMAL Chloride 106 mmol/L NORMAL CO2, venous 31.1 mmol/L NORMAL Glucose 92 mg/dL NORMAL Creatinine 1.1 mg/dL NORMAL Total Protein 7.8 g/dL NORMAL Calcium 8.8 mg/dL NORMAL Bilirubin, Total 0.34 mg/dL NORMAL Alk Phos 97 unit/L NORMAL GOT 13 unit/L LOW GPT 17 unit/L NORMAL BUN/Creat Ratio 11.0 NA Calculated Osmolality 279 mOsm/kg NORMAL Globulin 3.8 g/dL NA A/G Ratio 1.1 NA Lipase 137 unit/L NORMAL ALB 4.0 g/dL NORMAL Glomerular Filtration Rate >60 mL/min/1.73m? NA GFR AA >60 NA WBC 7.8 x10 RBC 4.53 x10 HGB 12.9 g/dL LOW HCT 39.2 % LOW MCV 86.5 fL NORMAL MCH 28.6 pg NORMAL MCHC 33.0 g/dL NORMAL RDW 13.9 NORMAL Platelet 187 x1000 NORMAL MPV 9.5 fL NORMAL Nucleated RBC 0 /100WBC NA Lymph % 29.2 % NA [place] % 6.9 % NA Neutrophil % 63.6 % NA Eosin % 0.3 % NA Basos % 0.1 % NA Lymph Count 2.27 x1000 NORMAL [place] Count 0.54 x1000 NORMAL Neutrophil Count (ANC) 4.96 x1000 NORMAL Eos Count 0.02 x1000 NORMAL Baso Count 0.01 x1000 NORMAL . Radiology results: CT ABD PELVIS WO CONTRAST 12/12/17 00:00:00FINAL REPORTPROCEDURE: CT ABD PELVIS WO IV CONTRASTTECHNIQUE: Computerized axial tomography of the abdomen and pelvis was performed without intravenous contrast. This study is performed without intravascular contrast material and its sensitivity for abdominal and pelvic pathology, including neoplasms, inflammation, abscess, free fluid, thrombosis, arterial dissection and infarction, is reduced compared with a contrast enhanced study.HISTORY: RT FLANK PAIN WITH HEMATURIA HX OF STONESCOMPARISON: No prior studies are available for comparison.FINDINGS:Lower Lung ceballos: There is minimal dependent atelectasis. Lung bases otherwise are clear.Upper Abdomen: Gallbladder is contracted otherwise unremarkable. The liver showed no focal abnormalities. The adrenal glands, the unenhanced images of the pancreas and the spleen show no abnormalities.Kidneys, Ureters and Urinary bladder: 4.6 x 2.2 x 3.8 millimeter calculus visualized in the lower 3rd of the right kidney. No other renal calculi are seen on the right or left. No renal masses are identified. There is no hydronephrosis. No ureteral calculi are seen. The urinary bladder is unremarkable.Retroperiton eum: Abdominal aorta appears normal.Nonspecific subcentimeter lymph nodes are seen in the retroperitoneum. No pathologically enlarged lymph nodes are identified.Bowel: No focal bowel loop abnormalities are identified. No evidence of bowel obstruction or ascites. There is no free intraperitoneal gas. Appendix is visualized in the right lower quadrant. Visualized portions the appendix show no abnormalities. Portions of the appendix are obscured by overlapping loops of bowel.Reproductive organs: Prostate gland does not appear to be enlarged.Other: No acute bony abnormalities are seen. There is a moderate size right paracentral disc herniation at the L4-5 level incidentally noted. This is resting on the medial aspect of the right L5 nerve root.IMPRESSION:Small nonobstructing calculus right kidney. No hydronephrosis or ureteral calculi are seen.Incidental note is made of a moderate-size right paracentral disc herniation L4-5 disc space as described above..Signed By: JHONATHAN WOODRUFF MD . Reexamination/ Reevaluation Vital signs results included from flowsheet : Vital Signs 12/12/2017 22:00 EDT Heart Rate Monitored 62 bpm NORMAL Peripheral Pulse Rate 61 bpm NORMAL Respiratory Rate 18 br/min NORMAL Systolic Blood Pressure 115 mmHg NORMAL Diastolic Blood Pressure 70 mmHg NORMAL Mean Arterial Pressure, Cuff 85 mmHg SpO2 100 % NORMAL Oxygen Therapy Room air per nurse's notes Course: improving, progressing as expected, well controlled. Pain status: decreased. Assessment: exam improved. Notes: Discussed today's findings, in addition to providing specific details for the plan of care and counseling regarding the diagnosis and prognosis. Discussed the return indications and importance of follow-up. Questions are answered. Impression and Plan Diagnosis Acute right-sided low back pain ([id number] M54.5, Discharge, Emergency medicine, Medical) Bulging lumbar disc ([id number] M51.26, Discharge, Emergency medicine, Medical) Plan Condition: Improved, Stable. Disposition: Discharged: Time 12/12/2017 22:35:00, to home. Prescriptions: Launch Meds List (Selected) PrescriptionsPrescribedUl tram 50 mg oral tablet: See Instructions, Take 1-2 Tabs ORAL Q4-6 Hours PRN, PRN: as needed for pain, 14 tabs, 0 Refill(s)baclofen 10 mg oral tablet: 5 mg = 0.5 tabs, ORAL, TID, PRN: Muscle spasm, 14 tabs, 0 Refill(s). Patient was given the following educational materials: Pain Medicine Instructions, Musculoskeletal Pain, Herniated Disk, Back Exercises, Back Pain, Adult. Follow up with: LOKESH KNOX, Family Practice Within Call for Appointment, only if needed Family Practice doctor cannon pinion adjuster at [facility]-Call as needed.Return to ER as needed.. Counseled: Patient, Family, Regarding diagnosis, Regarding diagnostic results, Regarding treatment plan, Regarding prescription, Patient indicated understanding of instructions, Family understood. Notes: I , Lily Phelan, am scribing for and in the presence of Dr. Yu Crump MD. Scribe Signature: Nikki Palencia, 12/12/2017 21:20 , I personally performed the services described in the documentation, reviewed and edited the documentation which was dictated to the scribe in my presence, and it accurately records my words and actions.. DIONNE INFANTE, YU Salazar 12/12/2017 22:41 Normal [facility] ED Progress Noteon 8 ED Progress Note 27 YEAR OLD MALE WIT H RIGHT FLANK PAIN, PT STATES IT IS A KIDNEY STONE. HE HAS HAD THEM SINCE HE WAS 9, LAST ONE WAS A FEW MONTHS AGO. PT REPORTS URINARY FREQUENCY AND HESITATION. DENIES NAUSEA. IV ESTABLISHED, BLOOD DRAWN, PT MEDICATED ORDERED, PT TO CT AT THIS TIME.2256: PT DISCHARGED HOME, PROVIDED DISCHARGE PAPERWORK AND PRESCRIPTIONS, NO QUESTIONS OR CONCERNS, IV REMOVED, PT AMBULATED TO LOBBY WITH FATHER Normal [facility] LIPon 12-13-2017 Lipase 137 unit/L Normal 73-393 [facility] Comment on above: Performed By: #### 9 [id number], [id number], 430247 ####[facility] [address] [place], [place] [id number]) [phone] Director: Kelvin Zamorano MD UAon 12-13-2017 U MICRO Indicated Normal [facility] Comment on above: Performed By: #### 1 [id number] ####[facility] [address] [place], [place] [id number]) [phone] Director: Kelvin Zamorano MD Appearance, U Clear Normal [facility] Comment on above: Performed By: #### 1 85506 ####[facility] [address]artlmjy424[address] [place], [place] [id number]) [phone] Director: Kelvin Zamorano MD Bilirubin (direct) Negative Normal Negative [facility] Comment on above: Performed By: #### 1 00311 ####[facility] Wwr[address]ctt[address] [place], [place] [id number]) [phone] Director: Kelvin Zamorano MD Blood, U Negative Normal Negative [facility] Comment on above: Performed By: #### 1 20439 ####[facility] [address]rn[address] [place], [place] [id number]) [phone] Director: Kelvin Zamorano MD Calcium Occasional Normal [facility] Comment on above: Performed By: #### 1 08145 ####[facility] [address]opgfvqq[address] [place], [place] [id number]) [phone] Director: Kelvin Zamorano MD Color, U Yellow Normal [facility] Comment on above: Performed By: #### 1 54239 ####[facility] Itdjschu[address] [place], [place] [id number]) [phone] Director: Kelvin Zamorano MD Erythrocytes (RBC) 1 #/HPF Normal 0-3 [facility] Comment on above: Performed By: #### 1 43483 ####[facility] [address]izv[address] [place] [address] Medical Director: Kelvin Zamorano MD Glucose Qual, U Negative Normal Negative [facility] Comment on above: Performed By: #### 1 03688 ####[facility] Rrzccuym46432 [place], [place] [id number]) [phone] Director: Kelvin Zamorano MD Ketones, U Negative Normal Negative [facility] Comment on above: Performed By: #### 1 23426 ####[facility] [address] [place] [address] Medical Director: Kelvin Zamorano MD Leukocyte Esterase, U Trace Abnormal Negative [facility] Comment on above: Performed By: #### 1 02847 ####[facility] [address] [place] [address] Medical Director: Kelvin Zamorano MD Mucous, U Occasional Normal [facility] Comment on above: Performed By: #### 1 67993 ####[facility] [address] [place] [address] Medical Director: Kelvin Zamorano MD Nitrite, U Negative Normal Negative [facility] Comment on above: Performed By: #### 1 18854 ####[facility] [address] [place] [address] Medical Director: Kelvin Zamorano MD pH, U 6.0 Normal 4.5-8.0 [facility] Comment on above: Performed By: #### 1 64249 ####[facility] [address]ds[address] [place], [place] [id number]) [phone] Director: Kelvin Zamorano MD Protein, U Negative Normal Negative [facility] Comment on above: Performed By: #### 1 30631 ####[facility] [address]aywsdg64[address] [place] [address] Medical Director: Kelvin Zamorano MD Specific [place], U 1.023 Normal 1.001-1.035 [facility] Comment on above: Performed By: #### 1 15672 ####[facility] [address]qbjx[address] [place] [address] Medical Director: Kelvin Zamorano MD Urobilinogen Qual, U 2.0 mg/dl Abnormal <2.0 mg/dl [facility] Comment on above: Result Comment: EU/d l and mg/dl are equivalent units. Performed By: #### 1 08405 ####[facility] [address] [address] Medical Director: Kelvin Zamorano MD WBC (Leukocytes) 2 #/HPF Normal 0-5 [facility] Comment on above: Performed By: #### 1 74388 ####[facility] [place] [address] Medical Director: Kelvin Zamorano MD AUTO DIFFon 12-12-2017 Basophils Auto #/vol (Bld) 0.01 x1000 Normal 0.00-0.20 [facility] Comment on above: Performed By: #### 9 749425, 085536, 726037 ####[facility] [address] [place] [address] Medical Director: Kelvin Zamorano MD Basos % 0.1 % Normal [facility] Comment on above: Performed By: #### 9 345460, 724669, 306292 ####[facility] [address] [place] [address] Medical Director: Kelvin Zamorano MD Eos Count 0.02 x1000 Normal 0.00-0.50 [facility] Comment on above: Performed By: #### 9 661613, 941989, 755032 ####[facility] [address]ch[address]sm[address] [place] [address] Medical Director: Kelvin Zamorano MD Eosinophils/100 leukocytes 0.3 % Normal [facility] Comment on above: Performed By: #### 9 838611, 235221, 508586 ####[facility] [address]quut38705 [place] [address] Medical Director: Kelvin Zamorano MD Lymphocytes 2.27 x1000 Normal 1.20-4.80 [facility] Comment on above: Performed By: #### 9 064547, 364524, 709648 ####[facility] [address]kv[address] [place] [address] Medical Director: Kelvin Zamorano MD Lymphocytes/100 leukocytes 29.2 % Normal [facility] Comment on above: Performed By: #### 9 624710, 780546, 250944 ####[facility] [address] [place] [address] Medical Director: Kelvin Zamoraon MD [place] Count 0.54 x1000 Normal 0.10-1.00 [facility] Comment on above: Performed By: #### 9 402945, 679444, 548272 ####[facility] [address]xs[address] [place] [address] Medical Director: Kelvin Zamorano MD Monocytes/100 leukocytes 6.9 % Normal [facility] Comment on above: Performed By: #### 9 512361, 075521, 859875 ####[facility] [address] [place] [address] Medical Director: Kelvin Zamorano MD Neutrophils 4.96 x1000 Normal 1.40-8.80 [facility] Comment on above: Performed By: #### 9 541069, 249864, 403565 ####[facility] [address] [place] [address] Medical Director: Kelvin Zamorano MD Neutrophils/100 WBC Auto (Bld) 63.6 % Normal [facility] Comment on above: Performed By: #### 9 531525, 083259, 201106 ####[facility] [address] [place] [address] Medical Director: Kelvin Zamorano MD CT ABD PELVIS WO IV CONTRAST on 12-12-2017 CT ABD PELVIS WO IV CONTRAST FINAL REPORTPROCEDURE: CT ABD PELVIS WO IV CONTRASTTECHNIQUE: Computerized axial tomography of the abdomen and pelvis was performed without intravenous contrast. This study is performed without intravascular contrast material and its sensitivity for abdominal and pelvic pathology, including neoplasms, inflammation, abscess, free fluid, thrombosis, arterial dissection and infarction, is reduced compared with a contrast enhanced study. HISTORY: RT FLANK PAIN WITH HEMATURIA HX OF STONES COMPARISON: No prior studies are available for comparison.FINDINGS: Lower Lung ceballos: There is minimal dependent atelectasis. Lung bases otherwise are clear.Upper Abdomen: Gallbladder is contracted otherwise unremarkable. The liver showed no focal abnormalities. The adrenal glands, the unenhanced images of the pancreas and the spleen show no abnormalities.Kidneys, Ureters and Urinary bladder: 4.6 x 2.2 x 3.8 millimeter calculus visualized in the lower 3rd of the right kidney. No other renal calculi are seen on the right or left. No renal masses are identified. There is no hydronephrosis. No ureteral calculi are seen. The urinary bladder is unremarkable. Retroperitoneum: Abdominal aorta appears normal.Nonspecific subcentimeter lymph nodes are seen in the retroperitoneum. No pathologically enlarged lymph nodes are identified. Bowel: No focal bowel loop abnormalities are identified. No evidence of bowel obstruction or ascites. There is no free intraperitoneal gas. Appendix is visualized in the right lower quadrant. Visualized portions the appendix show no abnormalities. Portions of the appendix are obscured by overlapping loops of bowel.Reproductive organs: Prostate gland does not appear to be enlarged.Other: No acute bony abnormalities are seen. There is a moderate size right paracentral disc herniation at the L4-5 level incidentally noted. This is resting on the medial aspect of the right L5 nerve root.IMPRESSION: Small nonobstructing calculus right kidney. No hydronephrosis or ureteral calculi are seen.Incidental note is made of a moderate-size right paracentral disc herniation L4-5 disc space as described above..Technologist: AMAN GOLDDictated By: Ruth WOODRUFF MD By: Ruth WOODRUFF MD Out: 12/12/17 22:00:03 Normal [facility] Bacterial susceptibility schaffer el by Aditi 08-24-2017 Bacterial susceptibility panel by [facility] ORDERED BY: REUBEN ECHAVARRIA: Urine Clean Catch COLLECTED: 08/24/17 17:15ANTIBIOTICS AT [facility].: RECEIVED : 08/24/17 20:24Culture, Urine FINAL 08/27/17 09:24 50,000 CFU/ml Escherichia coli E. coli ANTIBIOTICS SUSY Interp __Ampicillin 4 S Cefazolin <=4 S Ciprofloxacin <=0.25 S Gentamicin <=1 S Nitrofurantoin 32 S Trimethoprim/Sulfamethoxa zole <=20 S __ S=SUSCEPTIBLE I=INTERMEDIATE R=RESISTANT Normal [facility] CBC With Platelet and Differ entialon 08-24-2017 Basophils Auto #/vol (Bld) 0.0 10*3/uL Normal 0.0-0.2 [facility] Basophils/100 WBC Auto (Bld) 0.2 % Normal [facility] Eosinophils 0.0 10*3/uL Normal 0.0-0.7 [facility] Eosinophils/100 leukocytes 0.3 % Normal [facility] Erythrocyte distribution width Auto Ratio (RBC) 14.3 % Normal 11.5-14.5 [facility] Erythrocytes (RBC) 4.86 10*6/uL Normal 4.70-6.10 [facility] Hematocrit (HCT) 42.2 % Normal 42.0-52.0 [facility] Hemoglobin mass conc (Bld) 14.3 g/dL Normal 14.0-18.0 [facility] Lymphocytes 3.1 10*3/uL Normal 1.0-4.8 [facility] Lymphocytes/100 leukocytes 28.0 % Normal [facility] MCH 29.5 pg Normal 27.0-31.3 [facility] MCHC mass conc (RBC) 33.9 % Normal 33.0-37.0 [facility] MCV 86.8 fL Normal 80.0-100.0 [facility] Monocytes 0.8 10*3/uL Normal 0.2-0.8 [facility] Monocytes/100 leukocytes 7.1 % Normal [facility] Neutrophils 7.2 10*3/uL Critically high 1.4-6.5 [facility] Neutrophils/100 leukocytes 64.4 % Normal [facility] Platelets 259 10*3/uL Normal 130-400 [facility] WBC (Leukocytes) 11.1 10*3/uL Critically high 4.8-10.[address] [facility] CT KIDNEY WO CONTRASTon 08-15 CT KIDNEY WO CONTRAST CT of the Abdomen and Pelvis without intravenous contrast mediumHistory: Right flank pain. Hematuria. History of stonesTechnical Factors:CT imaging of the abdomen and pelvis were obtained and formatted as 5 mm contiguous axial images from the domes of the diaphragm to the symphysis pubis. Sagittal and coronal reconstructions were also obtained.Oral contrast medium: None.Intravenous contrast medium: None.Comparison: None.Findings:Lungs: Lung bases are clear.Liver: Normal in size, shape, and attenuation. Bile Ducts: Normal in caliber. Gallbladder: No stones or wall thickening. Pancreas: Normal without masses, cysts, ductal dilatation or calcification. Spleen: Normal in size without masses or calcifications. No splenules. Kidneys: Normal in size. 2 mm calculus lower pole right kidney. No calculi left kidney. No pelvocaliectasis, or perinephric fat stranding bilaterally.Adrenals: Normal. Small bowel: Normal in caliber. Appendix: Not visualized.Colon: Normal in caliber. Peritoneum: No ascites, free air, or fluid collections. Vessels: Aorta normal in course and caliber.Lymph nodes: No retroperitoneal lymph node enlargement.Ureters: Normal in course and caliber. No calcifications. Bladder: No wall thickening. Abdominal Wall: 7 mm periumbilical fat-containing abdominal wall defect.Bones: No bone lesions. No degenerative changes. No post operative changes. IMPRESSION: Nonobstructing right renal calculus.Periumbilical hernia.All CT scans at this facility use dose modulation, iterative reconstruction, and/or weight based dosing when appropriate to reduce radiation dose to as low as reasonably achievable.Interpreted by:SHIVA Craigigned by:Ankur Barber MD08/25/18Final result Normal [facility] Comprehensive Metabolic Pane bren 08-24-2017 Alanine aminotransferase (ALT) 14 U/L Normal 0-41 [facility] Albumin 4.8 g/dL Normal 3.9-4.9 [facility] Alkaline phosphatase (ALP) 101 U/L Normal 35-104 [facility] Anion gap 15 mmol/L Critically high 7-13 [facility] Aspartate aminotransferase (AST) 17 U/L Normal 0-40 [facility] Bilirubin (total) 0.4 mg/dL Normal 0.0-1.2 [facility] Calcium 9.6 mg/dL Normal 8.6-10.2 [facility] Chloride 103 mmol/L Normal 98-107 [facility] CO2 25 mmol/L Normal 22-29 [facility] Creatinine 0.73 mg/dL Normal 0.70-1.20 [facility] eGFR (black) mL/min/{1.73_m2} Normal >60 [facility] Comment on above: Result Comment: >60 mL/min/1.73m2 EGFR, calc. for ages 18 and older using theMDRD formula (not corrected for weight), is valid for stablerenal function. eGFR (MDRD) mL/min/{1.73_m2} Normal >60 [facility] Comment on above: Result Comment: >60 mL/min/1.73m2 EGFR, calc. for ages 18 and older using theMDRD formula (not corrected for weight), is valid for stablerenal function. Globulin 3.3 g/dL Normal 2.3-3.5 [facility] Glucose mass conc 91 mg/dL Normal 74-109 [facility] Potassium molar conc 4.2 mmol/L Normal 3.5-5.1 [facility] Protein 8.1 g/dL Normal 6.4-8.1 [facility] Sodium 143 mmol/L Normal 132-144 [facility] Urea nitrogen 16 mg/dL Normal 6-20 [facility] Culture, Urineon 08-24-2017 Culture, Urine OR DERED BY: REUBEN ECHAVARRIA: Urine Clean Catch COLLECTED: 08/24/17 17:15ANTIBIOTICS AT SAM[facility].: RECEIVED : 08/24/17 20:24Culture, Urine INTERIM 08/26/17 09:22 50,000 CFU/ml Escherichia coli Sensitivity to follow Normal [facility] Urinalysis, reflex to cultur fede 08-24-2017 Bilirubin Ql (U) Negative Normal Negative [facility] Urine Reflexed to Culture YES Normal [facility] Urine, clarity CLOUDY Abnormal Clear [facility] Urine, color Yellow Normal Straw/Emmet [facility] Urine, glucose presence Negative Normal Negative [facility] Urine, hemoglobin presence LARGE Abnormal Negative [facility] Urine, ketones presence Negative Normal Negative [facility] Urine, leukocyte esterase presence MODERATE Abnormal Negative [facility] Urine, nitrite presence Negative Normal Negative [facility] Urine, pH 6.5 [pH] Normal 5.0-9.0 [facility] Urine, protein presence TRACE Abnormal Negative [facility] Urine, specific gravity 1.022 Normal 1.005-1.03 [facility] Urine, urobilinogen 0.2 {Janusz'U}/dL Normal < 2.0 [facility] Urine Microscopicon 08-25-19 18 Urine, bacteria in sediment Few Normal [facility] Urine, erythrocytes /uL Abnormal 0-2 [facility] Urine, leukocytes 6-10 Abnormal 0-5 [facility] Vital Signs Date Time Vital Sign Value Performing Clinician Facility 02-19-2025 11:22-0400 Body temperature 97.6 [degF] No Primary Care Physician [facility] 02-19-2025 11:22-0400 Diastolic blood pressure 92 mm[Hg] No Primary Care Physician [facility] 02-19-2025 11:22-0400 Heart rate 85 /min No Primary Care Physician [facility] 02-19-2025 11:22-0400 Respiratory rate 15 /min No Primary Care Physician [facility] 02-19-2025 11:22-0400 SaO2% (BldA) [Mass fraction] 99 % No Primary Care Physician [facility] 02-19-2025 11:22-0400 Systolic blood pressure 135 mm[Hg] No Primary Care Physician [facility] 02-18-2025 12:16-0400 Body height 172.72 cm No Primary Care Physician [facility] 02-18-2025 12:16-0400 Body weight 62 kg No Primary Care Physician [facility] 02-17-2025 22:55-0400 Body mass index (BMI) [Ratio] 20.2 kg/m2 No Primary Care Physician [facility] 02-17-2025 21:59-0400 Body temperature 97.8 [degF] No Primary Care Physician [facility] 02-17-2025 21:59-0400 Diastolic blood pressure 94 mm[Hg] No Primary Care Physician [facility] 02-17-2025 21:59-0400 Heart rate 87 /min No Primary Care Physician [facility] 02-17-2025 21:59-0400 Respiratory rate 16 /min No Primary Care Physician [facility] 02-17-2025 21:59-0400 SaO2% (BldA) [Mass fraction] 99 % No Primary Care Physician [facility] 02-17-2025 21:59-0400 Systolic blood pressure 144 mm[Hg] No Primary Care Physician [facility] 02-17-2025 19:43-0400 Body height 172.72 cm No Primary Care Physician [facility] 02-17-2025 19:43-0400 Body mass index (BMI) [Ratio] 21.1 kg/m2 No Primary Care Physician [facility] 02-17-2025 19:43-0400 Body weight 63.1 kg No Primary Care Physician [facility] 04-23-2024 15:18-0500 Body temperature 98.71 [degF] Richard Pastrana MD Work Phone: [facility] 04-23-2024 15:18-0500 Diastolic blood pressure 87 mm[Hg] Richard Pastrana MD Work Phone: [facility] 04-23-2024 15:18-0500 Heart rate 72 /min Richard Pastrana MD Work Phone: [facility] 04-23-2024 15:18-0500 Respiratory rate 18 /min Richard Pastrana MD Work Phone: [facility] 04-23-2024 15:18-0500 SaO2% (BldA) [Mass fraction] 97 % Richard Pastrana MD Work Phone: [facility] 04-23-2024 15:18-0500 Systolic blood pressure 135 mm[Hg] Richard Pastrana MD Work Phone: [facility] 04-19-2024 18:36-0500 Body height 172.7 cm Richard Pastrana MD Work Phone: [facility] 04-19-2024 18:36-0500 Body mass index (BMI) [Ratio] 22.16 kg/m2 Richard Pastrana MD Work Phone: [facility] 04-19-2024 18:36-0500 Body weight 66.1 kg Richard Pastrana MD Work Phone: [facility] 04-19-2024 07:30-0500 Diastolic blood pressure 78 mm[Hg] David Robison DO Work Phone: [facility] 04-19-2024 07:30-0500 Heart rate 61 /min David Pazo DO Work Phone: [employer] 04-19-2024 07:30-0500 SaO2% (BldA) [Mass fraction] 94 % aDvid Pazo DO Work Phone: [facility] [employer] [facility] 04-19-2024 07:30-0500 Systolic blood pressure 132 mm[Hg] David Pazo DO Work Phone: [employer] [facility] 04-19-2024 06:00-0500 Respiratory rate 15 /min David Pazo DO Work Phone: [facility] [employer] [facility] 04-19-2024 03:53-0500 Body height 177.8 cm David Pazo DO Work Phone: [facility] [employer] [facility] 04-19-2024 03:53-0500 Body mass index (BMI) [Ratio] 24.39 kg/m2 David Pazo DO Work Phone: [facility] [employer] [facility] 04-19-2024 03:53-0500 Body weight 77.11 kg David Pazo [employer] Work Phone: [facility] [employer] [facility] 04-19-2024 03:51-0500 Body temperature 98.1 [degF] David Pazo [employer] Work Phone: [facility] 12-04-2018 03:09-0400 BP Diastolic 92 mm[Hg] Caleb Starr [facility] 12-04-2018 03:09-0400 BP Systolic 134 mm[Hg] Caleb Starr [facility] 12-04-2018 03:09-0400 Pulse (Heart Rate) 95 /min Caleb Starr [facility] 12-04-2018 03:09-0400 Pulse Oximetry 100 % Caleb Starr [facility] 12-04-2018 03:09-0400 Respiratory Rate 14 /min Caleb Starr [facility] 12-04-2018 02:46-0400 Body Temperature 97.7 [degF] Caleb Starr [facility] Encounters Encounter Date Encounter Type Care Provider Facility Start: 02-19-2025 Non-patient / Non-visit Dr. Phoenix hopper MD [facility] Work Phone: Start: 02-18-2025 Non-patient / Non-visit Dr. Phoenix hopper MD [facility] Work Phone: Start: 02-17-2025 ambulatory No Primary Car e Physician Facility:[facility] Start: 02-17-2025 End: 02-19-2025 Evaluation and management of inpatient Dr. Sujey Stacy MD -[facility] Work Phone: Start: 07-17-2024 ambulatory Phoenix Ramsey Facili ty:[facility] Start: 07-17-2024 End: 07-18-2024 Evaluation and management of inpatient Phoenix Ramsey Facility:[facility] Start: 06-20-2024 ambulatory David Mcguire Fac ility:[facility] Start: 06-20-2024 End: 06-23-2024 Evaluation and management of inpatient No Primary Care Physician Facility:[facility] Start: 05-22-2024 ambulatory No Primary Car e Physician Facility:[facility] Start: 05-22-2024 End: 05-25-2024 Evaluation and management of inpatient No Primary Care Physician Facility:[facility] Start: 04-19-2024 End: 04-23-2024 Evaluation and management of inpatient Akhil nAn MD Work Phone: [facility] Med Surg Start: 04-19-2024 End: 04-19-2024 Emergency department patient visit [facility] Start: 04-19-2024 End: 04-19-2024 Evaluation and management of inpatient [facility] Work Phone: [facility] Emergency Medicine Comment on above: Acute pancreatitis Start: 04-19-2024 ambulatory GENERIC [facility] Start: 01-27-2024 End: 01-27-2024 Emergency department patient visit MORALES JAIMES [facility] Start: 01-05-2024 End: 01-05-2024 Emergency department patient visit TOMASA HOANG [facility] Start: 09-06-2023 End: 09-06-2023 Emergency department patient visit SHEILA OLSON [facility] Start: 08-04-2020 End: 08-04-2020 Orders Only Theodora Pop Work Phone: [facility] Start: 12-09-2018 End: 12-09-2018 Patient encounter procedure Telly Lewis Work Phone: [facility] Neurology Comment on above: Seizure (Primary Dx) Start: 12-04-2018 End: 12-04-2018 Emergency department patient visit Caleb Starr Work Phone: [facility] Emergency Department Comment on above: Accidental drug over dose, initial encounter (Primary Dx) Start: 07-26-2018 End: 07-27-2018 Emergency department patient visit [facility] Facility:[facility] Start: 07-26-2018 End: 07-26-2018 Patient encounter procedure Generic [facility] Start: 07-13-2018 End: 07-13-2018 Emergency department patient visit [facility] Facility:[facility] Start: 04-02-2018 End: 04-02-2018 Emergency department patient visit Dante Billy Facility:[facility] Start: 12-25-2017 End: 12-25-2017 Emergency department patient visit Carmen Thompson Facility:[facility] Start: 12-12-2017 End: 12-13-2017 Emergency department patient visit YU CRUMP Facility:[id number] Start: 08-24-2017 End: 08-24-2017 Emergency department patient visit [facility] Procedures Date Procedure Procedure Detail Performing Clinician Start: 02-17-2025 Estimated creatinine clearance No Primary Care Physician Start: 02-17-2025 Hepatitis C antibody measurement No Primary Care Physician Comment on above: Reactive: Presumptiv e evidence of antibodies to HCV. Follow CDC recommendations for supplemental testing.Non-Reactive: Antibodies to HCV were not detected; does not exclude the possibility of exposure to HCVReactive Results are presumptive evidence of antibodies to HCV. Follow CDC recommendations for supplemental testing.Order confirmation testing: HCV Quant by PCR testing - HCVPCR #[id number] Non Reactive: < 0.8 Equivocal: >/= 0.8 to < 1.0 Reactive: >/= 1.0The CDC requires that a reactive/equivocal HCV antibody result be sent out for confirmation. HCV Quant by PCR testing. Start: 02-17-2025 Serologic test for syphilis No Primary Care Physician Start: 02-17-2025 Serum inorganic phos phate measurement No Primary Care Physician Start: 04-23-2024 End: 04-23-2024 Comprehensive metabolic panel Rosalba Park MD Work Phone: Start: 04-23-2024 Hepatic function panel Tesha Garsia PA-C Work Phone: Start: 04-22-2024 Basic metabolic pane l calcium total Rosalba Park MD Work Phone: Start: 04-21-2024 Ct abdomen & pelvis w/contrast material Richard Pastrana MD Work Phone: Start: 04-21-2024 Comprehensive metabo lic panel Rosalba Park MD Work Phone: Start: 04-21-2024 Hepatic function panel Tesha Garsia PA-C Work Phone: Start: 04-20-2024 Comprehensive metabo lic panel Rosalba Park MD Work Phone: Start: 04-20-2024 Hepatic function panel Tesha Garsia PA-C Work Phone: Start: 04-19-2024 Assay of lactate Rosalba Park MD Work Phone: Start: 04-19-2024 CRITICAL CARE Akhil rodriguez MD Work Phone: Start: 04-19-2024 Assay of magnesium Padmini Ann MD Work Phone: Start: 04-19-2024 LAVENDER TOP Akhil jules MD Work Phone: Start: 04-19-2024 MINT GREEN TOP Akhil roberts MD Work Phone: Start: 04-19-2024 RAINBOW DRAW Akhil jules MD Work Phone: Start: 04-19-2024 Ct abdomen & pelvis w/contrast material David Robison DO Work Phone: Start: 11-03-2024 Albumin serum plasma /whole blood David Robison [employer] Work Phone: Start: 04-19-2024 Assay of ethanol David Robison [employer] Work Phone: Start: 04-19-2024 Complete blood count with white cell differential, automated David Robison DO Work Phone: Start: 12-04-2018 LAVENDER TOP Caleb Lang Work Phone: Start: 12-04-2018 LIGHT BLUE TOP Caleb Starr Work Phone: Start: 12-04-2018 RAINBOW DRAW Caleb Lang Work Phone: Start: 12-04-2018 Troponin measurement Ma tthew Benito Starr Work Phone: Start: 12-04-2018 12 lead ECG Caleb Lang Work Phone: Start: 07-27-2018 Basic metabolic 2000 panel - Serum or Plasma Will Toledo Work Phone: Start: 07-27-2018 Complete blood count with white cell differential, manual Will Toledo Work Phone: Start: 07-27-2018 Urinalysis Geovanni Pruitt Work Phone: Start: 08-24-2017 Ct abdomen w/o contr ast material Start: 08-24-2017 CBC WITH AUTO DIFFERENTIAL Start: 08-24-2017 COMPREHENSIVE METABO LIC PANEL Start: 08-24-2017 Microscopic urinalysis Start: 08-24-2017 URINE CULTURE Start: 08-24-2017 URINE RT REFLEX TO CULTURE Plan of Treatment Date Care Activity Detail Author Start: 02-19-2025 Patient discharge [facility] Start: 02-18-2025 End: 02-19-[address] [facility] Start: 02-18-2025 Assessment using assessment scale [facility] Start: 02-18-2025 Patient referral to dietitian [facility] Start: 02-17-2025 Assessment of risk of venous thromboembolism [facility] Start: 02-17-2025 Inhalation therapy procedure [facility] Start: 02-17-2025 Introduction of urinary catheter [facility] Start: 02-17-2025 Notification of physician [facility] Start: 02-17-2025 Oxygen therapy [facility] Start: 02-17-2025 Provision of activity privileges [facility] Start: 02-17-2025 Referral to service [facility] Start: 02-17-2025 Vital signs measurements [facility] Start: 02-17-[address] [facility] Start: 02-17-2025 Following clinical pathway protocol [facility] Start: 02-17-2025 End: 02-17-2025 Hospital admission, emergency, from emergency room, medical nature [facility] Start: 02-17-2025 Verification routine [facility] Start: 02-17-2025 Admission procedure [facility] Start: 02-17-2025 Serologic test for syphilis [facility] Start: 02-17-2025 Serum inorganic phosphate measurement [facility] Start: 02-17-[address] [facility] Start: 02-16-2024 COVID-19 VACCINE ( season) COVID-19 VACCINE ( season) [facility] Start: 02-16-2024 Influenza vaccination INFLUENZA VACCINE (#1) [facility] Start: 02-16-2020 Influenza vaccination given Sequential Influenza Vaccine (#1) [facility] Start: 02-15-2019 Influenza vaccination INFLUENZA VACCINE (Season Ended) [facility] Start: 02-15-2019 Influenza vaccination given SEQUENTIAL INFLUENZA VACCINE (Season Ended) [facility] Start: 02-15-2018 Influenza vaccination given SEQUENTIAL INFLUENZA VACCINE (#1) [facility] Start: 2009 Hepatitis B vaccination HEP B VACCINE (1 of 3 - 19+ 3-dose series) [facility] Start: 2009 Third diphtheria, tetanus and acellular pertussis (DTaP) vaccination TDAP (ADULT) [facility] Start: 2008 Hepatitis C antibody, confirmatory test Hepatitis C Screening [facility] Start: 2008 Tetanus vaccination TETANUS [facility] Start: 2005 HIV screening [facility] Start: 2003 HIV screening HIV SCREENING DISCUSSION [facility] Start: 2002 Adolescent depression screening assessment Depression Screening (PHQ9) [facility] Start: 1993 History and physical examination, annual for health maintenance Wellness Visit [facility] Start: 1990 Hepatitis C screening HEPATITIS C VIRUS SCREENING [facility] Start: 1990 Tetanus vaccination [facility] Amphetamines [Presen ce] in Urine by Screen method >1000 ng/mL [facility] Benzodiazepine measu rement, urine [facility] Cocaine measurement, urine [facility] fentaNYL [Presence] in Urine by Screen method [facility] Magnesium measurement [facility] Methadone measuremen t, urine [facility] Phencyclidine [Prese nce] in Urine [facility] Urine cannabinoid measurement [facility] Urine opiate measurement [facility] Payers Date Payer Category Payer Self-pay 2024 Private Health Insurance [employer] [id number] 2024-Present [address] [place] [address] [id number] 2023 Medicaid (Managed Care) [employer] MGD MEDICAID [id number] 2018 Medicaid [employer] D MEDICAID [employer] MEDICAID xxxxxxxxxxx 2018-Present xxxxxxxxxxx [id number] 2018 Medicaid [id number] 2017 Medicaid [id number] 1990 Unknown [id number] .[id number] 1990 Unknown [id number] [id number] .903 1990 Unknown [id number] 2.16.840.1.115577.3.579.2 .903 1990 Unknown [id number] 2.16.840.1.677604.3.579.2 .903 1990 Unknown [id number] 2.16.840.1.709864.3.579.2 .903 1990 Unknown [id number] [id number] .903 Medicaid [place]ICA[place] xxxxxxxxxxxx Effective for all dates xxxxxxxxxxxx [id number] Medicaid DENTAL MEDICAID [facility] [id number] Effective for all dates [id number] Unknown [id number] Unknown [id number] 2.16.840.1.808195.3.579.2 .462 Unknown [id number] 2.16.840.1.805206.3.579.2 .462 Unknown [id number] 2.16.840.1.337018.3.579.2 .462 Unknown [id number] 2.16.840.1.387729.3.579.2 .462 Unknown [id number] 2.16.840.1.411761.3.579.2 .462 Unknown [id number] 2.16.840.1.273000.3.579.2 .462 Unknown [id number] 2.16.840.1.901273.3.579.2 .462 Unknown [id number] 2.16.840.1.655312.3.579.2 .462 Unknown [id number] 2.16.840.1.178453.3.579.2 .462 Unknown [id number] 2.16.840.1.010242.3.579.2 .462 Unknown [id number] 2.16.840.1.232994.3.579.2 .462 Unknown [id number] 2.16.840.1.864366.3.579.2 .462 Unknown [id number] 2.16.840.1.997845.3.579.2 .462 Unknown [id number] 2.16.840.1.176642.3.579.2 .462 Unknown [id number] 2.16840.1.290583.3.579.2 .462 Unknown [id number] .462 Social History Date Type Detail Facility Start: 05-27-2018 End: 12-04-2018 Tobacco smoking status GAIS Current some day smoker [facility] Start: 06-17-2021 History of tobacco use Cigarette Smoker [facility] Start: 1990 Sex Assigned At Not on file [facility] Start: 12-04-2018 End: 04-19-2024 Tobacco use and exposure Never used [facility] Start: 12-04-2018 Alcohol intake Current non-drinker of alcohol (finding) [facility] Start: 04-19-2024 Tobacco smoking status NHIS Never smoked tobacco [facility] Start: 04-19-2024 Alcoholic beverage intake Current drinker of alcohol (finding) [facility] Start: 04-19-2024 History of Social function [facility] Start: 04-19-2024 Tobacco use panel [facility] Start: 04-19-2024 Alcohol Comment 2 beers nightly per patient [facility] Start: 04-19-2024 End: 02-17-2025 Tobacco smoking status GAIS Smokes tobacco daily [facility] Has the electric, Lumoid, [employer]jiwang, or water Mendeley threatened to shut off services in your home in past 12Mo No [facility] (I/We) worried wheth er (my/our) food would run out before (I/we) got money to buy more. Never true [facility] In the past 12 month s, has lack of transportation kept you from medical appointments or from getting medications? No [facility] Start: 04-19-2024 Alcohol Comment daily, last drink last night [facility] Start: 04-03-2018 Gender identity Identifies as male gender (finding) [facility] Start: 04-03-2018 Sexual orientation Heterosexual (finding) [facility] Start: 08-03-2020 Alcohol Alcohol [facility] Start: 08-03-2020 Drugs Drugs [facility] Start: 08-03-2020 Tobacco Use Tobacco Use [facility] Start: 1990 Sex Assigned At Male [facility] Goals Date Patient Goal Desired Activity /State Functional Status Date Assessment Result Facility 02-19-2025 Functional status Patient Activi ty Ambulates;Up ad elly [facility] Work Phone: 02-18-2025 Functional status Independent [facility] Work Phone: Mental Status Date Assessment Result Facility 02-19-2025 Cognitive function Appropriate;Cooperativ e [facility] Work Phone: 02-19-2025 Cognitive function Arousable To Voice/Nam e [facility] Work Phone: Clinical Notes 04-19-2024 to 02-19-2025 Note Date & Type Note Facility 02-19-2025 Hospital Discharg e instructions Additional Instructions Date of Discharge: 02/19/[address] [facility] Work Phone: 02-19-2025 Discharge summary [facility] 02-19-2025 Note [facility] Medical Records Department [address] [place] [address] Discharge Summary 02/19/25 1346 MR#: [id number] Acct: [id number] Name: YU YOUNGER Marli Rep #: [id number] : 1990 34 From: Phoenix Irvin MD PCP: Care Physician,No Primary Status:ADM IN Location: [place] [address] Providers Date of Admission: 02/17/25 Date of Discharge: 02/19/25 Primary Care Physician: No Primary Care Phys Reason For Visit: OPIATE,ETOH DETOXIFICATION Diagnosis Discharge Diagnosis (1) Admitted to alcohol detoxification center: Status: Acute Plan Patient is a 34-year-old gentleman with history of polysubstance dependence admitted with acute alcohol and opioid withdrawal 1. Alcohol intoxication at significant risk for -. Patient EtOH alcohol level on admission was 239. Patient has been admitted for treatment with phenobarb taper in addition to adjuvant medications including gabapentin, Bentyl, hydroxyzine and clonidine as needed for alcohol withdrawal symptoms. Patient was also placed on thiamine and folic ; consultation placed to [facility] counseling services ??? 02/19/2025; patient remains significantly symptomatic we will continue with current treatment regimen ??? Patient elected to sign out AGAINST MEDICAL ADVICE attempt made for patient to rescind his decision proved Futile. He was instructed to come back to the emergency department if he changed his 2. Acute opioid withdrawal - Patient has been admitted to regular nursing floor, managed buprenorphine taper along with other adjunctive medications for medical stabilization 3. Polysubstance dependence ??? Patient presented with both alcohol and opioid withdrawal 4. Tobacco dependence ??? Counseled on cessation, offered nicotine patch for tobacco cravings 5. DVT prophylaxis ??? Low risk encourage ambulation Time spent in the patient's overall evaluation,decision-making process, review of diagnostic data, adjustment of management, discussion with other providers, nursing nursing and ancillary staff involved in patient's care documentation, 35 minutes Medications at Discharge Home Medications methadone 10 mg tablet 100 mg PO DAILY 05/22/24 Physical Exam Narrative GENERAL: Patient in no apparent distress HEENT: Atraumatic; normocephalic EYES; Anicteric, Normal Conjunctiva NECK; supple, normal thyroid, RESPIRATORY: Diminished to auscultation CARDIOVASCULAR: Regular S1 S2, GI: soft, normoactive bowel sounds, : No Renal angle tenderness; EXTREMITIES: No edema, no clubbing, MUSCULOSKELETAL: no muscle wasting NEURO: Awake; no lateralizing signs. SKIN: No Rash PSYCH; Flat affect Weight / BMI Weight Weight: 62 kg Body Mass Index (BMI) 20.2 ABG / Lab / Microbiology Data 02/17/25 21:00 02/17/25 21:00 D/C Instructions Discharge Activity: Return to Normal Activity Call your doctor if you observe: Fever of 101 or Higher, Shortness of breath, Fainting spells and Chest pain DC O2, CPAP, BIPAP Needs Home O2 Discharge instructions: No Meaningful Use Info Meaningful Use Meaningful Use Diagnoses (Choose all that apply): None applicable Discharge Plan Admission Admit Date/Time: 02/17/25 21:24 Attending Provider: Phoenix Irvin Primary Care Provider: Care Physician,No Primary Consulting Providers: Sujey Stacy Discharge Orders/Prescriptions Prescriptions: No Action methadone 10 mg tablet 100 mg PO DAILY Patient Comments: pt gets dose daily from clinic. has saturday's dose with him Referrals / Follow Up: Care Physician,No Primary [Primary Care Provider] - Disposition Disposition (needs filled in before D/C Order can be placed): Against Medical Advice Charges/Coding Visit Charges Inpatient E M: 47917 Disch Hosp >30min 02/19/25 1348 Cosigner Signature (if applicable): CC: Dr. Phoenix Irvin MD; No Primary Care Physician Signed [facility] 02-19-2025 Progress note Note Date/Time February 19, 2025 7:38am [facility] Medical Records Department [address] [place] [address] Progress Note - Hospitalist 02/19/25 0737 MR#: [id number] Acct: [id number] Name: YU YOUNGER Rep #:[id number] : 1990 34 From: Pheonix Irvin MD PCP: Care Physician,No Primary Status :ADM IN Location: [place] [address]1 Reason for Visit Chief Complaint: Heroin/EtOH detoxification Subjective Subjective Patient seen still complains of abdominal aches shakes as well as sweats. Objective Data Objective Data Vital Signs: Vital Signs Temp Pulse Resp BP Pulse Ox O2 Del Method 97.7 F L 83 16 121/86 H 99 Room Air 02/19/25 04:39 02/19/25 04:39 02/19/25 04:39 02/19/25 04:39 02/19/25 04:39 02/19/25 04:39 Oxygen Delivery Method Room Air Weight: 62 kg Body Mass Index (BMI) 20.2 Intake & Output: Intake and Output for Last 24 Hours 02/17/25 02/18/25 02/19/25 23:59 23:59 23:59 Intake Total 960.42 / 960.42 Output Total 0 / 0 Balance 960.42 / 960.42 Lab / Micro Data 02/17/25 21:00 02/17/25 21:00 Physical Exam Narrative GENERAL: Patient in no apparent distress HEENT: Atraumatic; normocephalic EYES; Anicteric, Normal Conjunctiva NECK; supple, normal thyroid, RESPIRATORY: Diminished to auscultation CARDIOVASCULAR: Regular S1 S2, GI: soft, normoactive bowel sounds, : No Renal angle tenderness; EXTREMITIES: No edema, no clubbing, MUSCULOSKELETAL: no muscle wasting NEURO: Awake; no lateralizing signs. SKIN: No Rash PSYCH; Flat affect Assessment & Plan Assessment/Plan (1) Admitted to alcohol detoxification center: PLAN: Plan Patient is a 34-year-old gentleman with history of polysubstance dependence admitted with acute alcohol and opioid withdrawal 1. Alcohol intoxication at significant risk for -. Patient EtOH alcohol level on admission was 239. Patient has been admitted for treatment with phenobarb taper in addition to adjuvant medications includinggabapentin, Bentyl, hydroxyzine and clonidine as needed for alcohol withdrawal symptoms. Patient was also placed on thiamine and folic ; consultation placed to 180 counseling services ? 02/19/2025; patient remains significantly symptomatic we will continue with current treatment regimen 2. Acute opioid withdrawal - Patient has been admitted to regular nursing floor, managed buprenorphine taper along with other adjunctive medications for medical stabilization 3. Polysubstance dependence ? Patient presented with both alcohol and opioid withdrawal 4. Tobacco dependence ? Counseled on cessation, offered nicotine patch for tobacco cravings 5. DVT prophylaxis ? Low risk encourage ambulation Time spent in the patient's overall evaluation,decision-making process, review of diagnostic data, adjustment of management, discussion with other providers, nursing nursing and ancillary staff involved in patient's care documentation, 35minutes Charges/Coding Visit Charges Inpatient E&M: 41538 Subs Hosp L2 02/19/25 0738 <Electronically signed by Phoenix Irvin MD> Cosigner Signature (if applicable): CC: ~ Signed [facility] Work Phone: 1(182) 538-694009-05-[address] [facility] Medical Records Department [address] [place] [address] Progress Note - Hospitalist 02/19/25 0737 MR#: [id number] Acct: [id number] Name: YU YOUNGER Rep #:[id number] : 1990 34 From: Phoenix Irvin MD PCP: Care Physician,No Primary Status :ADM IN Location: [id number] Reason for Visit Chief Complaint: Heroin/EtOH detoxification Subjective Subjective Patient seen still complains of abdominal aches shakes as well as sweats. Objective Data Objective Data Vital Signs: Vital Signs Temp Pulse Resp BP Pulse Ox O2 Del Method 97.7 F L 83 16 121/86 H 99 Room Air 02/19/25 04:39 02/19/25 04:39 02/19/25 04:39 02/19/25 04:39 02/19/25 04:39 02/19/25 04:39 Oxygen Delivery Method Room Air Weight: 62 kg Body Mass Index (BMI) 20.2 Intake & Output: Intake and Output for Last 24 Hours 02/17/25 02/18/25 02/19/25 23:59 23:59 23:59 Intake Total 960.42 / 960.42 Output Total 0 / 0 Balance 960.42 / 960.42 Lab / Micro Data 02/17/25 21:00 02/17/25 21:00 Physical Exam Narrative GENERAL: Patient in no apparent distress HEENT: Atraumatic; normocephalic EYES; Anicteric, Normal Conjunctiva NECK; supple, normal thyroid, RESPIRATORY: Diminished to auscultation CARDIOVASCULAR: Regular S1 S2, GI: soft, normoactive bowel sounds, : No Renal angle tenderness; EXTREMITIES: No edema, no clubbing, MUSCULOSKELETAL: no muscle wasting NEURO: Awake; no lateralizing signs. SKIN: No Rash PSYCH; Flat affect Assessment & Plan Assessment/Plan (1) Admitted to alcohol detoxification center: PLAN: Plan Patient is a 34-year-old gentleman with history of polysubstance dependence admitted with acute alcohol and opioid withdrawal 1. Alcohol intoxication at significant risk for -. Patient EtOH alcohol level on admission was 239. Patient has been admitted for treatment with phenobarb taper in addition to adjuvant medications includinggabapentin, Bentyl, hydroxyzine and clonidine as needed for alcohol withdrawal symptoms. Patient was also placed on thiamine and folic ; consu ltation placed to 180 counseling services ? 02/19/2025; patient remains significantly symptomatic we will continue with current treatment regimen 2. Acute opioid withdrawal - Patient has been admitted to regular nursing floor, managed buprenorphine taper along with other adjunctive medications for medical stabilization 3. Polysubstance dependence ? Patient presented with both alcohol and opioid withdrawal 4. Tobacco dependence ? Counseled on cessation, offered nicotine patch for tobacco cravings 5. DVT prophylaxis ? Low risk encourage ambulation Time spent in the patient's overall evaluation,decision-making process, review of diagnostic data, adjustment of management, discussion with other providers, nursing nursing and ancillary staff involved in patient's care documentation, 35minutes Charges/Coding Visit Charges Inpatient E&M: 03094 Subs Hosp L2 02/19/25 0738 Cosigner Signature (if applicable): CC: ~ Signed [facility]09-04-2025 Progress note Author Phoenix Irvin [facility] Note Date/Time February 18, 2025 9:43am [facility] Medical Records Department [address] [place] [address] Progress Note - Hospitalist 02/18/25654 MR#: [id number] Acct: [id number] Name: YU YOUNGER Rep #:[id number] : 1990 34 From: Phoenix Irvin MD PCP: Care Physician,No Primary Status :ADM IN Location: [place] [id number] Reason for Visit Chief Complaint: Heroin/EtOH detoxification Subjective Subjective Patient is a 34-year-old gentleman with history of polysubstance dependence admitted with acute alcohol withdrawal Objective Data Objective Data Vital Signs: Vital Signs Temp Pulse Resp BP Pulse Ox O2 Del Method 97.8 F 107 H 20 H 131/95 H 100 Room Air 02/18/25 03:50 02/18/25 03:50 02/18/25 03:50 02/18/25 03:50 02/18/25 03:50 02/17/25 23:58 Oxygen Delivery Method Room Air Weight: 61.9 kg Body Mass Index (BMI) 20.2 Intake & Output: Intake and Output for Last 24 Hours 02/16/25 02/17/25 02/18/25 23:59 23:59 23:59 Intake Total 0 / 0 Output Total 0 / 0 Balance 0 / 0 Lab / Micro Data 02/17/25 21:00 02/17/25 21:00 Labs: Laboratory Results - last 24 hr 02/17/25 21:00: WBC 7.0, RBC 4.43 L, Hgb 13.2, Hct 38.2 L, MCV 86.2, MCH 29.8, MCHC 34.6, RDW Std Deviation 41.9, RDW Coeff of Ida 13.4, Plt Count 239, MPV 9.6, Immature Gran % (Auto) 0.100, Neut % (Auto) 67.8, Lymph % (Auto) 24.4, [place]% (Auto) 7.4, Eos % (Auto) 0.0, Baso % (Auto) 0.3, Absolute Neuts (auto) 4.8, Absolute Lymphs (auto) 1.72, Nucleated RBC % 0, Sodium 142, Potassium 3.4, Chloride 105, Carbon Dioxide 21.7, Anion Gap 15, BUN 7, Creatinine 0.91, Estim Creat Clear Calc 102.09, Est GFR (MDRD) Non-Af 113, BUN/Creatinine Ratio 8.1 L, Glucose 128 H, Calcium 9.4, Phosphorus 2.9, Magnesium 2.0, Ethyl Alcohol 239.0 H, Syphilis Total Ab Nonreactive, Hep Bs Antigen Nonreactive, Hep Bs Antibody Nonreactive, Hepatitis C Antibody REAC, HIV 1&2 Antibody Nonreactive Physical Exam Narrative GENERAL: Patient in no apparent distress HEENT: Atraumatic; normocephalic EYES; Anicteric, Normal Conjunctiva NECK; supple, normal thyroid, RESPIRATORY: Diminished to auscultation CARDIOVASCULAR: Regular S1 S2, GI: soft, normoactive bowel sounds, : No Renal angle tenderness; EXTREMITIES: No edema, no clubbing, MUSCULOSKELETAL: no muscle wasting NEURO: Awake; no lateralizing signs. SKIN: No Rash PSYCH; Flat affect Assessment & Plan Assessment/Plan (1) Admitted to alcohol detoxification center: PLAN: Plan Patient is a 34-year-old gentleman with history of polysubstance dependence admitted with acute alcohol and opioid withdrawal 1. Alcohol intoxication at significant risk for -. Patient EtOH alcohol level on admission was 239. Patient has been admitted for treatment with phenobarb taper in addition to adjuvant medications includinggabapentin, Bentyl, hydroxyzine and clonidine as needed for alcohol withdrawal symptoms. Patient was also placed on thiamine and folic ; consultation placed to [facility] counseling services 2. Acute opioid withdrawal - Patient has been admitted to regular nursing floor, managed buprenorphine taper along with other adjunctive medications for medical stabilization 3. Polysubstance dependence ? Patient presented with both alcohol and opioid withdrawal 4. Tobacco dependence ? Counseled on cessation, offered nicotine patch for tobacco cravings 5. DVT prophylaxis ? Low risk encourage ambulation Time spent in the patient's overall evaluation,decision-making process, review of diagnostic data, adjustment of management, discussion with other providers, nursing nursing and ancillary staff involved in patient's care documentation, 38 Minutes Charges/Coding Visit Charges Inpatient E&M: 40368 Subs Hosp L2 02/18/25 0943 <Electronically signed by Phoenix Irvin MD> Cosigner Signature (if applicable): CC: ~ Signed [facility] Work Phone: 1(987) 769-641309-04-[address] [facility] Medical Records Department [address] [place] [address] Progress Note - Hospitalist 02/18/25654 MR#: [id number] Acct: [id number] Name: YU YOUNGER Rep #:[id number] : 1990 34 From: Phoenix Irvin MD PCP: Care Physician,No Primary Status :ADM IN Location: [address] Reason for Visit Chief Complaint: Heroin/EtOH detoxification Subjective Subjective Patient is a 34-year-old gentleman with history of polysubstance dependence admitted with acute alcohol withdrawal Objective Data Objective Data Vital Signs: Vital Signs Temp Pulse Resp BP Pulse Ox O2 Del Method 97.8 F 107 H 20 H 131/95 H 100 Room Air 02/18/25 03:50 02/18/25 03:50 02/18/25 03:50 02/18/25 03:50 02/18/25 03:50 02/17/25 23:58 Oxygen Delivery Method Room Air Weight: 61.9 kg Body Mass Index (BMI) 20.2 Intake & Output: Intake and Output for Last 24 Hours 02/16/25 02/17/25 02/18/25 23:59 23:59 23:59 Intake Total 0 / 0 Output Total 0 / 0 Balance 0 / 0 Lab / Micro Data 02/17/25 21:00 02/17/25 21:00 Labs: Laboratory Results - last 24 hr 02/17/25 21:00: WBC 7.0, RBC 4.43 L, Hgb 13.2, Hct 38.2 L, MCV 86.2, MCH 29.8, MCHC 34.6, RDW Std Deviation 41.9, RDW Coeff of Ida 13.4, Plt Count 239, MPV 9.6, Immature Gran % (Auto) 0.100, Neut % (Auto) 67.8, Lymph % (Auto) 24.4, [place]% (Auto) 7.4, Eos % (Auto) 0.0, Baso % (Auto) 0.3, Absolute Neuts (auto) 4.8, Absolute Lymphs (auto) 1.72, Nucleated RBC % 0, Sodium 142, Potassium 3.4, Chloride 105, Carbon Dioxide 21.7, Anion Gap 15, BUN 7, Creatinine 0.91, Estim Creat Clear Calc 102.09, Est GFR (MDRD) Non-Af 113, BUN/Creatinine Ratio 8.1 L, Glucose 128 H, Calcium 9.4, Phosphorus 2.9, Magnesium 2.0, Ethyl Alcohol 239.0 H, Syphilis Total Ab Nonreactive, Hep Bs Antigen Nonreactive, Hep Bs Antibody Nonreactive, Hepatitis C Antibody REAC, HIV 1&2 Antibody Nonreactive Physical Exam Narrative GENERAL: Patient in no apparent distress HEENT: Atraumatic; normocephalic EYES; Anicteric, Normal Conjunctiva NECK; supple, normal thyroid, RESPIRATORY: Diminished to auscultation CARDIOVASCULAR: Regular S1 S2, GI: soft, normoactive bowel sounds, : No Renal angle tenderness; EXTREMITIES: No edema, no clubbing, MUSCULOSKELETAL: no muscle wasting NEURO: Awake; no lateralizing signs. SKIN: No Rash PSYCH; Flat affect Assessment & Plan Assessment/Plan (1) Admitted to alcohol detoxification center: PLAN: Plan Patient is a 34-year-old gentleman with history of polysubstance dependence admitted with acute alcohol and opioid withdrawal 1. Alcohol intoxication at significant risk for -. Patient EtOH alcohol level on admission was 239. Patient has been admitted for treatment with phenobarb taper in addition to adjuvant medications includinggabapentin, Bentyl, hydroxyzine and clonidine as needed for alcohol withdrawal symptoms. Patient was also placed on thiamine and folic ; consu ltation placed to 180 counseling services 2. Acute opioid withdrawal - Patient has been admitted to regular nursing floor, managed buprenorphine taper along with other adjunctive medications for medical stabilization 3. Polysubstance dependence ? Patient presented with both alcohol and opioid withdrawal 4. Tobacco dependence ? Counseled on cessation, offered nicotine patch for tobacco cravings 5. DVT prophylaxis ? Low risk encourage ambulation Time spent in the patient's overall evaluation,decision-making process, review of diagnostic data, adjustment of management, discussion with other providers, nursing nursing and ancillary staff involved in patient's care documentation, 38 Minutes Charges/Coding Visit Charges Inpatient E&M: 06031 Subs Hosp L2 02/18/25 0943 Cosigner Signature (if applicable): CC: ~ Signed [facility]09-04-2025 Discharge summary Author Dada Caballero [facility] Note Date/Time February 17, 2025 10:29pm [facility] Medical Records Department [address] [place] [address] Emergency Department Summary 02/17/25 MR#: [id number] Acct: [id number] Name: YU YOUNGER Rep #:[id number] : 1990 34 From: Dada Alejandre PCP: Care Physician,No Primary Status :ADM IN Location: [address] History of Present Illness Chief Complaint: [facility] Medical History (Updated 02/17/25 @ 22:[address] Sujey Stacy MD) Tobacco use Alcohol abuse Alcoholic pancreatitis Substance abuse Hx of renal calculi Home Medications ?Medication ?Instructions ?Recorded ?Last Taken ?Type methadone 10 mg tablet 100 mg PO DAILY 05/22/2410/09 History Allergy/AdvReac Type Severity Reaction Status Date / Time levetiracetam (From [facility]) Allergy HIVES Verified 02/17/25 19:44 Family History (Updated 02/17/25 @ 22:[address] Sujey Stacy MD) Mother Hypertension Polysubstance abuse Father Hypertension Polysubstance abuse Alcohol abuse Other Cancer Surgical History Hx of tonsillectomy Social History (Updated 02/17/25 @ 22:[address] Sujey Stacy MD) household members: spouse Smoking Status: Current every day smoker tobacco type: e-cigarettes Electronic Cigarette Use: with nicotine alcohol intake: current alcohol intake frequency: 3 or more drinks per day Alcohol type: hard liquor details: Approximately 1 pint Francine daily substance use type: heroin, opiates and other details: Heroin/fentanyl 1 to 2 gdaily snorted EXAM Physical Exam Const Vital Signs: 02/17/25 19:43 02/17/25 21:11 Temperature 98.4 F Temperature Source Oral Pulse Rate 119 H 100 Respiratory Rate 16 16 Blood Pressure 157/106 H 142/97 H Blood Pressure Mean 123 112 Pulse Ox 100 99 Oxygen Delivery Method Room Air [facility] MDM Narrative Medical decision making narrative: HISTORY OF PRESENT ILLNESS: Chief complaint: Alcohol and opioid detox 34-year-old male history of alcohol abuse, polysubstance abuse, heroin abuse, tobacco abuse, cannabis abuse presents with request for opiate and alcohol detox. Patient states he drinks 13% Francine drinks daily. Drinks approximately8 of these daily. Last echo 2 minutes prior to arrival. Also notes he snorts heroin last ingestion of heroin was at 5 PM on 02/17/2025 denies any drug use or does cocaine methamphetamine. Denies any physical symptoms at this time. REVIEW OF SYSTEMS: Pertinent positives: Polysubstance abuse Pertinent negatives: Chest pain, abdominal pain PHYSICAL EXAM: Nursing triage notes reviewed, Vital signs reviewed Constitutional: please see [facility] HENT: MMM Eyes: Pupils equal round and reactive to light, Extraocular muscles intact Neck: No stridor, no JVD, full neck ROM Lungs: Clear to auscultation, No wheezing or rales. No increased work of breathing, no conversational dyspnea, no accessory muscle use, no nasal flaring. No respiratory distress noted Heart: Regular rate and rhythm, No murmurs, No rubs and No gallops, 2+ distal pulses (radial, femoral, posterior tibial) in all extremities Abdomen: Soft, there is no tenderness, rigidity, rebound or guarding, no obviousperitoneal signs, no palpable pulsatile abdominal masses, no auscultated abdominal bruit : No CVAT Extremities: No edema Neuro: No new focal neurological deficits, cranial nerves II through XII intact,5/5 strength in all present extremities. Intact sensation to light touch in all present extremities, 2+ reflexes bilateral patella tendons. Skin: No rash or lesions noted MEDICAL DECISION MAKING: Chief Complaint: please see HPI External records reviewed: Reviewed prior ED visit. Patient is on methadone reviewed PDMP Factors affecting care: As per HPI. Social determinants of health: history of polysubstance abuse History obtained from others: none Consults: Hospitalist (Dr. Stacy) [facility] Narrative: Patient was initially hypertensive with blood pressure 157/106, tachycardic with heart rate of 119, afebrile and nontoxic-appearing. Exam without focal abnormalities. Medical clearance labs were obtained. Patient was given Ativan and phenobarbital empirically given history of alcohol use, alcohol withdrawal and initial vital signs are concerning for alcohol withdrawal despite his history of recently drinking. ALL IMAGES (IF OBTAINED) HAVE BEEN PERSONALLY REVIEWED AND INTERPRETED BY MYSELF. CBC without leukocytosis, severe anemia, no thrombocytopenia. Awaiting BMP and alcohol level Alcohol level BMP without evidence of significant electrolyte abnormalities, no anion gap, no acute kidney injury. Discussed with hospitalist who agrees to admit the patient to our rehab program. Repeat vital signs showed improvement in blood pressure and heart rate with a blood pressure 142/97 and heart rate of 100 after Ativan and phenobarbital. The patient and/or family, caregivers express understanding. The patient and/orfamily, caregivers agrees with the plan. Shared decision making: I will have a discussion with the patient and or visitors regarding risk/benefits of further testing or admission. They will be made aware of of the risk/benefits inherent in this decision they will be given the opportunity to voice understanding. Total critical care time today provided was at least 0 minutes. This excludes separately billable procedures. Critical care time (if documented) is secondary to the patient having high probability of clinically significant/life threatening deterioration in the patient's condition which required my urgent intervention. Impression: 1. History of polysubstance abuse 2. Encounter for alcohol detoxification 3. Encounter for opioid detoxification Dispo: Admit to medical floor This note was generated with [employer] dictation software. It may contain incorrectwords, spelling, and punctuation that were not noted in review of the chart prior to signing. Lab Data Labs: Laboratory Results - last 24 hr 02/17/25 21:00 WBC 7.0 RBC 4.43 L Hgb 13.2 Hct 38.2 L MCV 86.2 MCH 29.8 MCHC 34.6 RDW Std Deviation 41.9 RDW Coeff of Ida 13.4 Plt Count 239 MPV 9.6 Immature Gran % (Auto) 0.100 Neut % (Auto) 67.8 Lymph % (Auto) 24.4 [place] % (Auto) 7.4 Eos % (Auto) 0.0 Baso % (Auto) 0.3 Absolute Neuts (auto) 4.8 Absolute Lymphs (auto) 1.72 Nucleated RBC % 0 Sodium 142 Potassium 3.4 Chloride 105 Carbon Dioxide 21.7 Anion Gap 15 BUN 7 Creatinine 0.91 Estim Creat Clear Calc 102.09 Est GFR (MDRD) Non-Af 113 BUN/Creatinine Ratio 8.1 L Glucose 128 H Calcium 9.4 Ethyl Alcohol 239.0 H Discharge Plan Triage Chief Complaint: Substance Abuse ED Provider: Dada Caballero Dx/Rx/DC Orders Primary Care Provider: Care Physician,No Primary What to do if you have Problems For any increased pain, shortness of breath, bleeding, nausea or vomiting, chestpain, or any unexpected problems, contact your Primary Care Provider. Call [facility] ([phone]) or report to the closest Emergency Room. Call 911 if necessary. 02/17/252228 <Electronically signed by Dada Caballero DO> Cosigner Signature (if applicable): CC: No Primary Care Physician ~ Signed [facility] Work Phone: 1(701) 685-344309-04-2025 History and physical note Author Sujey Stacy [facility] Note Date/Time February 17, 2025 10:19pm [facility] Medical Records Department [address] [place] [address] H&P Exam - Hospitalist 02/17/252123 MR#: [id number] Acct: [id number] Name: YU YOUNGER Rep #:[id number] : 1990 34 From: Sujey Stacy MD PCP: Care Physician,No Primary Status :ADM IN Location: [place] [id number] HPI - General General Date of Admission: 02/17/25 Date of Service: 02/17/25 Chief Complaint: Heroin/EtOH detoxification HPI Narrative The patient is a 34 y/o M w/ PMHx: Polysubstance abuse (EtOH 1 pint Francine daily, last use 2 to 3 hours prior to ED arrival, Opiates heroin/fentanyl 1 to 2g daily, used via snorting, last use similarly 2 to 3 hours prior to ED arrival), Tobacco use who presents to the [facility] ED on 02/17/2025 with ongoing substance abuse, both EtOH and opiates with requested detoxification from both alcohol and opiate use with onset now with mild withdrawal symptoms starting over the last possibly 30 minutes with mild fatigue, yawning, nausea, restlessness, body aches and diaphoresis. Patient is present in different room from his spouse who is also a substance user and patient does report that they use together occasionally. Workup in the ED included T98.4, heart rate 119, BP 157/106, respiratory rate 16, 100% on room air, CBC with WC 7.0, Hgb 13.2, platelet 239 without marked shift, BMP with glucose 128 otherwise unremarkable, ethyl alcohol 239. In the ED given concern for onset of withdrawal symptoms patient was initiated on Ativan 2 mg IV x 1, phenobarbital 97.2 mg p.o. x 1. [facility] Medical History (Updated 02/17/25 @ 22:[address] Sujey Stacy MD) Tobacco use Alcohol abuse Alcoholic pancreatitis Substance abuse Hx of renal calculi Home Medications ?Medication ?Instructions ?Recorded ?Last Taken ?Type methadone 10 mg tablet 100 mg PO DAILY 05/22/2410/09 History Allergy/AdvReac Type Severity Reaction Status Date / Time levetiracetam (From [facility]) Allergy HIVES Verified 02/17/25 19:44 Family History (Updated 02/17/25 @ 22:[address] Sujey Stacy MD) Mother Hypertension Polysubstance abuse Father Hypertension Polysubstance abuse Alcohol abuse Other Cancer Surgical History Hx of tonsillectomy Social History (Updated 02/17/25 @ 22:[address] Sujey Stacy MD) household members: spouse Smoking Status: Current every day smoker tobacco type: e-cigarettes Electronic Cigarette Use: with nicotine alcohol intake: current alcohol intake frequency: 3 or more drinks per day Alcohol type: hard liquor details: Approximately 1 pint Francine daily substance use type: heroin, opiates and other details: Heroin/fentanyl 1 to 2 gdaily snorted ROS ROS Narrative Admission Review of Systems: CONSTITUTIONAL: No weight loss, fever, chills, + weakness or fatigue. HEENT: + Rhinorrhea, congestion, frequent yawning during evaluation. Eyes: No visual loss, blurred vision, double vision or yellow sclerae. Ears, Nose, Throat: No hearing loss, sneezing, sore throat. SKIN: No rash or itching, lesions, wounds except occasional stage ecchymoses, abrasions, frequent cutting scars to the left forearm with patient noting he is right-handed. CARDIOVASCULAR: No chest pain, chest pressure or chest discomfort, palpitations,edema, orthopnea, syncopal events. RESPIRATORY: No shortness of breath, cough or sputum, wheezing, hemoptysis. GASTROINTESTINAL: + anorexia, mild nausea. No vomiting or diarrhea, abdominal pain, melena, BRBPR. GENITOURINARY: No dysuria, frequency, urgency or retention. NEUROLOGICAL: + Mild tremors, mild tactile disturbances, restlessness, very fatigued. No headache, dizziness, syncope, paralysis, ataxia, numbness or tingling in the extremities, focal weakness, change in bowel or bladder control,seizure. MUSCULOSKELETAL: + muscle, back pain, joint pain or stiffness. HEMATOLOGIC: No anemia, bleeding or bruising. LYMPHATICS: No enlarged nodes. No history of splenectomy. PSYCHIATRIC: No reported history of anxiety or depression. ENDOCRINOLOGIC: + Reports of sweating. No cold or heat intolerance. No polyuriaor polydipsia. ALLERGIES: + History of hives. Vital Signs Vital Signs Vital Signs: 02/17/25 19:43 02/17/25 21:11 Temperature 98.4 F Temperature Source Oral Pulse Rate 119 H 100 Respiratory Rate 16 16 Blood Pressure 157/106 H 142/97 H Blood Pressure Mean 123 112 Pulse Ox 100 99 Oxygen Delivery Method Room Air Weight Weight: 139 lb 2 oz Body Mass Index (BMI) 21.1 Physical Exam Narrative Physical Examination: General: Awake, alert, oriented x 3 and cooperative, seated upright in the ED bed, fatigued, yawning frequently, very fatigued, restless. Skin: Normal color, normal turgor, no icterus, no cyanosis except occasional stage ecchymoses, abrasions, left forearm with old cutting scars noting that he is right-handed of note. HEENT: AT/NC, EOMI, PERRLA, moderately dry MM, no carotid bruits or JVD noted. Lungs: CTA bilaterally, moderate effort, mild decrease BL bases, no rales, ronchi or wheezing. Heart: Regular rate and rhythm; no gallop, rub audible. Abdomen: Soft, mild generalized discomfort but no rebound or guarding, ND, hyperactive BS, no appreciated HSM. Extremities: No cyanosis, no clubbing, no significant distal edema, see skin. Neurological: Patient awake, alert, oriented as noted, cognitive function intactalthough very fatigued and yawning frequently; pupils equally reactive to light and accommodation, cranial nerves grossly normal, moving all 4 extremities, no focal deficits, strength moderately globally decreased secondary to acute presentation, mildly tremulous, mild tactile disturbances reported, restless. Psychiatric: Affect appears fatigued, restless, no evidence of any anxiety or depressive feelings. Results Lab / Micro Data 02/17/25 21:00 02/17/25 21:00 Labs: Laboratory Results - last 24 hr 02/17/25 21:00: WBC 7.0, RBC 4.43 L, Hgb 13.2, Hct 38.2 L, MCV 86.2, MCH 29.8, MCHC 34.6, RDW Std Deviation 41.9, RDW Coeff of Ida 13.4, Plt Count 239, MPV 9.6, Immature Gran % (Auto) 0.100, Neut % (Auto) 67.8, Lymph % (Auto) 24.4, [place]% (Auto) 7.4, Eos % (Auto) 0.0, Baso % (Auto) 0.3, Absolute Neuts (auto) 4.8, Absolute Lymphs (auto) 1.72, Nucleated RBC % 0 Assessment & Plan Assessment/Plan (1) Admitted to alcohol detoxification center: PLAN: Plan The patient is a 34 y/o M w/ PMHx: Polysubstance abuse (EtOH 1 pint Francine daily, last use 2 to 3 hours prior to ED arrival, Opiates heroin/fentanyl 1 to 2g daily, used via snorting, last use similarly 2 to 3 hours prior to ED arrival), Tobacco use who presents to the [facility] ED on 02/17/2025 with ongoing substance abuse, both EtOH and opiates with requested detoxification from both alcohol and opiate use with onset now with mild withdrawal symptoms. #1. Acute EtOH Withdrawal: Will admit to medical surgical floor, routine labs obtained in the ED upon presentation as noted. Will also request hepatic profile. Given interest in sobriety, will initiate and continue on protocol with taper course of Phenobarbital, scheduled gabapentin for seizure prophylaxis, as needed Catapres, Bentyl, Vistaril, IV fluids, IV antiemetics, Tylenol as needed for pain. Will consult Case management for assistance for transition to next level of rehabilitation care. Mag, phos pending. Maintain on CIWA protocol concurrently. #2. Acute Opiate Withdrawal: Given patient concurrent usage of several opiates,will additionally initiate and continue on protocol with tapering course of Subutex, as needed tylenol, ibuprofen, bowel regimen, gabapentin, Bentyl, Vistaril, methocarbamol, clonidine, PRN nightly trazodone for insomnia, IV fluids, IV antiemetics. Once patient clinically improved and completion of tapernearing will plan consultation with case management for transition to next levelof rehabilitation care. #3. Polysubstance Abuse, Chronic: Will obtain HIV, syphilis and hepatitis panelgiven significant polysubstance use although does deny IV substance use. #4. Tobacco use: Encourage tobacco cessation, RT consulted for education, NR ordered. #5. DVT Prophylaxis: Low risk, encourage ambulation. Charges/Coding Visit Charges Inpatient E&M: 78846 Init Hosp L3 02/17/259 <Electronically signed by Sujey Stacy MD> Cosigner Signature (if applicable): CC: Dr. Sujey Stacy MD; No Primary Care Physician~ Signed [facility] Work Phone: 1(174) 655-530809-03-2025 Evaluation note* Diagnosis Onset Date Resolution Status Admit Date Admitted to alcohol detoxification center acute February 17, 2025 9:24pm [facility] Work Phone: 1(779) 477-506909-03-2025 Discharge summary [facility] Medical Records Department [address] [place] [id number] Emergency Department Summary 02/17/25 MR#: [id number] Acct: [id number] Name: YU YOUNGER Rep #:[id number] : 1990 34 From: Dada Alejandre PCP: Care Physician,No Primary Status :ADM IN Location: [place] [address] HPI History of Present Illness Chief Complaint: Substance Abuse [facility] Medical History (Updated 02/17/25 @ 22:[address] Sujey Stacy MD) Tobacco use Alcohol abuse Alcoholic pancreatitis Substance abuse Hx of renal calculi Home Medications ?Medication ?Instructions ?Recorded ?Last Taken ?Type methadone 10 mg tablet 100 mg PO DAILY 05/22/2410/09 History Allergy/AdvReac Type Severity Reaction Status Date / Time levetiracetam (From [facility]) Allergy HIVES Verified 02/17/25 19:44 Family History (Updated 02/17/25 @ 22:[address] Sujey Stacy MD) Mother Hypertension Polysubstance abuse Father Hypertension Polysubstance abuse Alcohol abuse Other Cancer Surgical History Hx of tonsillectomy Social History (Updated 02/17/25 @ 22:[address] Sujey Stacy MD) household members: spouse Smoking Status: Current every day smoker tobacco type: e-cigarettes Electronic Cigarette Use: with nicotine alcohol intake: current alcohol intake frequency: 3 or more drinks per day Alcohol type: hard liquor details: Approximately 1 pint Francine daily substance use type: heroin, opiates and other details: Heroin/fentanyl 1 to 2 gdaily snorted EXAM Physical Exam Const Vital Signs: 02/17/25 19:43 02/17/25 21:11 Temperature 98.4 F Temperature Source Oral Pulse Rate 119 H 100 Respiratory Rate 16 16 Blood Pressure 157/106 H 142/97 H Blood Pressure Mean 123 112 Pulse Ox 100 99 Oxygen Delivery Method Room Air MDM MDM MDM Narrative Medical decision making narrative: HISTORY OF PRESENT ILLNESS: Chief complaint: Alcohol and opioid detox 34-year-old male history of alcohol abuse, polysubstance abuse, heroin abuse, tobacco abuse, cannabis abuse presents with request for opiate and alcohol detox. Patient states he drinks 13% Francine drinks daily. Drinks approximately8 of these daily. Last echo 2 minutes prior to arrival. Also notes he snorts heroin last ingestion of heroin was at 5 PM on 02/17/2025 denies any drug use or does cocainemethamphetamine. Denies any physical symptoms at this time. REVIEW OF SYSTEMS: Pertinent positives: Polysubstance abuse Pertinent negatives: Chest pain, abdominal pain PHYSICAL EXAM: Nursing triage notes reviewed, Vital signs reviewed Constitutional: please see mdm HENT: MMM Eyes: Pupils equal round and reactive to light, Extraocular muscles intact Neck: No stridor, no JVD, full neck ROM Lungs: Clear to auscultation, No wheezing or rales. No increased work of breathing, no conversational dyspnea, no accessory muscle use, no nasal flaring. No respiratory distress noted Heart: Regular rate and rhythm, No murmurs, No rubs and No gallops, 2+ distal pulses (radial, femoral, posterior tibial) in all extremities Abdomen: Soft, there is no tenderness, rigidity, rebound or guarding, no obviousperitoneal signs, no palpable pulsatile abdominal masses, no auscultated abdominal bruit : No CVAT Extremities: No edema Neuro: No new focal neurological deficits, cranial nerves II through XII intact,5/5 strength in allpresent extremities. Intact sensation to light touch in all present extremities, 2+ reflexes bilateral patella tendons. Skin: No rash or lesions noted MEDICAL DECISION MAKING: Chief Complaint: please see HPI External records reviewed: Reviewed prior ED visit. Patient is on methadone reviewed PDMP Factors affecting care: As per HPI. Social determinants of health: history of polysubstance abuse History obtained from others: none Consults: Hospitalist (Dr. Stacy) MDM Narrative: Patient was initially hypertensive with blood pressure 157/106, tachycardic with heart rate of 119,afebrile and nontoxic-appearing. Exam without focal abnormalities. Medical clearance labs were obtained. Patient was given Ativan and phenobarbital empirically given history of alcohol use, alcohol withdrawal and initial vital signs are concerning for alcohol withdrawal despite his history of recently drinking. ALL IMAGES (IF OBTAINED) HAVE BEEN PERSONALLY REVIEWED AND INTERPRETED BY MYSELF. CBC without leukocytosis, severe anemia, no thrombocytopenia. Awaiting BMP and alcohol level Alcohol level BMP without evidence of significant electrolyte abnormalities, no anion gap, no acute kidney injury. Discussed with hospitalist who agrees to admit the patient to our rehab program. Repeat vital signs showed improvement in blood pressure and heart rate with a blood pressure 142/97and heart rate of 100 after Ativan and phenobarbital. The patient and/or family, caregivers express understanding. The patient and/orfamily, caregivers agrees with the plan. Shared decision making: I will have a discussion with the patient and or visitors regarding risk/benefits of further testing or admission. They will be made aware of of the risk/benefits inherent in this decision they will be given the opportunity to voice understanding. Total critical care time today provided was at least 0 minutes. This excludes separately billable procedures. Critical care time (if documented) is secondary to the patient having high probability ofclinically significant/life threatening deterioration in the patient's condition which required my urgent intervention. Impression: 1. History of polysubstance abuse 2. Encounter for alcohol detoxification 3. Encounter for opioid detoxification Dispo: Admit to medical floor This note was generated with [employer] dictation software. It may contain incorrectwords, spelling, and punctuation that were not noted in review of the chart prior to signing. Lab Data Labs: Laboratory Results - last 24 hr 02/17/25 21:00 WBC 7.0 RBC 4.43 L Hgb 13.2 Hct 38.2 L MCV 86.2 MCH 29.8 MCHC 34.6 RDW Std Deviation 41.9 RDW Coeff of Ida 13.4 Plt Count 239 MPV 9.6 Immature Gran % (Auto) 0.100 Neut % (Auto) 67.8 Lymph % (Auto) 24.4 [place] % (Auto) 7.4 Eos % (Auto) 0.0 Baso % (Auto) 0.3 Absolute Neuts (auto) 4.8 Absolute Lymphs (auto) 1.72 Nucleated RBC % 0 Sodium 142 Potassium 3.4 Chloride 105 Carbon Dioxide 21.7 Anion Gap 15 BUN 7 Creatinine 0.91 Estim Creat Clear Calc 102.09 Est GFR (MDRD) Non-Af 113 BUN/Creatinine Ratio 8.1 L Glucose 128 H Calcium 9.4 Ethyl Alcohol 239.0 H Discharge Plan Triage Chief Complaint: Substance Abuse ED Provider: Dada Caballero Dx/Rx/DC Orders Primary Care Provider: Care Physician,No Primary What to do if you have Problems For any increased pain, shortness of breath, bleeding, nausea or vomiting, chestpain, or any unexpected problems, contact your Primary Care Provider. Call [facility] ([phone]) or report tothe closest Emergency Room. Call 911 if necessary. 02/17/252228 Cosigner Signature (if applicable): CC: No Primary Care Physician ~ Signed [facility]09-03-2025 History and physical note [facility] Medical Records Department [address] [place] [address] H&P Exam - Hospitalist 02/17/252123 MR#: [id number] Acct: [id number] Name: YU YOUNGER Rep #:[id number] : 1990 34 From: Sujey Stacy MD PCP: Care Physician,No Primary Status :ADM IN Location: [facility] [place] [id number] HPI - General General Date of Admission: 02/17/25 Date of Service: 02/17/25 Chief Complaint: Heroin/EtOH detoxification HPI Narrative The patient is a 34 y/o M w/ PMHx: Polysubstance abuse (EtOH 1 pint Francine daily, last use 2 to 3 hours prior to ED arrival, Opiates heroin/fentanyl 1 to 2g daily, used via snorting, last use similarly 2 to 3 hours prior to ED arrival), Tobacco use who presents to the [facility] ED on 02/17/2025 with ongoing substance abuse, both EtOH and opiates with requested detoxification from both alcohol and opiateuse with onset now with mild withdrawal symptoms starting over the last possibly 30 minutes with mild fatigue, yawning, nausea, restlessness, body aches and diaphoresis. Patient is present in different room from his spouse who is also a substance user and patient does report that they use together o ccasionally. Workup in the ED included T98.4, heart rate 119, BP 157/106, respiratory rate 16, 100%on room air, CBC with WC 7.0, Hgb 13.2, platelet 239 without marked shift, BMP with glucose 128 otherwise unremarkable, ethyl alcohol 239. In the ED given concern for onset of withdrawal symptoms patient was initiated on Ativan 2 mg IV x 1, phenobarbital 97.2 mg p.o. x 1. [facility] Medical History (Updated 02/17/25 @ 22:[address] Sujey Stacy MD) Tobacco use Alcohol abuse Alcoholic pancreatitis Substance abuse Hx of renal calculi Home Medications ?Medication ?Instructions ?Recorded ?Last Taken ?Type methadone 10 mg tablet 100 mg PO DAILY 05/22/2410/09 History Allergy/AdvReac Type Severity Reaction Status Date / Time levetiracetam (From [facility]) Allergy HIVES Verified 02/17/25 19:44 Family History (Updated 02/17/25 @ 22:[address] Sujey Stacy MD) Mother Hypertension Polysubstance abuse Father Hypertension Polysubstance abuse Alcohol abuse Other Cancer Surgical History Hx of tonsillectomy Social History (Updated 02/17/25 @ 22:[address] Sujey Stacy MD) household members: spouse Smoking Status: Current every day smoker tobacco type: e-cigarettes Electronic Cigarette Use: with nicotine alcohol intake: current alcohol intake frequency: 3 or more drinks per day Alcohol type: hard liquor details: Approximately 1 pint Francine daily substance use type: heroin, opiates and other details: Heroin/fentanyl 1 to 2 gdaily snorted ROS ROS Narrative Admission Review of Systems: CONSTITUTIONAL: No weight loss, fever, chills, + weakness or fatigue. HEENT: + Rhinorrhea, congestion, frequent yawning during evaluation. Eyes: No visual loss, blurred vision, double vision or yellow sclerae. Ears, Nose, Throat: No hearing loss, sneezing, sore throat. SKIN: No rash or itching, lesions, wounds except occasional stage ecchymoses, abrasions, frequent cutting scars to the left forearm with patient noting he is right-handed. CARDIOVASCULAR: No chest pain, chest pressure or chest discomfort, palpitations,edema, orthopnea, syncopal events. RESPIRATORY: No shortness of breath, cough or sputum, wheezing, hemoptysis. GASTROINTESTINAL: + anorexia, mild nausea. No vomiting or diarrhea, abdominal pain, melena, BRBPR. GENITOURINARY: No dysuria, frequency, urgency or retention. NEUROLOGICAL: + Mild tremors, mild tactile disturbances, restlessness, very fatigued. No headache, dizziness, syncope, paralysis, ataxia, numbness or tingling in the extremities, focal weakness, change in bowel or bladder control,seizure. MUSCULOSKELETAL: + muscle, back pain, joint pain or stiffness. HEMATOLOGIC: No anemia, bleeding or bruising. LYMPHATICS: No enlarged nodes. No history of splenectomy. PSYCHIATRIC: No reported history of anxiety or depression. ENDOCRINOLOGIC: + Reports of sweating. No cold or heat intolerance. No polyuriaor polydipsia. ALLERGIES: + History of hives. Vital Signs Vital Signs Vital Signs: 02/17/25 19:43 02/17/25 21:11 Temperature 98.4 F Temperature Source Oral Pulse Rate 119 H 100 Respiratory Rate 16 16 Blood Pressure 157/106 H 142/97 H Blood Pressure Mean 123 112 Pulse Ox 100 99 Oxygen Delivery Method Room Air Weight Weight: 139 lb 2 oz Body Mass Index (BMI) 21.1 Physical Exam Narrative Physical Examination: General: Awake, alert, oriented x 3 and cooperative, seated upright in the ED bed, fatigued, yawning frequently, very fatigued, restless. Skin: Normal color, normal turgor, no icterus, no cyanosis except occasional stage ecchymoses, abrasions, left forearm with old cutting scars noting that he is right-handed of note. HEENT: AT/NC, EOMI, PERRLA, moderately dry MM, no carotid bruits or JVD noted. Lungs: CTA bilaterally, moderate effort, mild decrease BL bases, no rales, ronchi or wheezing. Heart: Regular rate and rhythm; no gallop, rub audible. Abdomen: Soft, mild generalized discomfort but no rebound or guarding, ND, hyperactive BS, no appreciated HSM. Extremities: No cyanosis, no clubbing, no significant distal edema, see skin. Neurological: Patient awake, alert, oriented as noted, cognitive function intactalthough very fatigued and yawning frequently; pupils equally reactive to light and accommodation, cranial nerves grossly normal, moving all 4 extremities, no focal deficits, strength moderately globally decreased secondary to acute presentation, mildly tremulous, mild tactile disturbances reported, restless. Psychiatric: Affect appears fatigued, restless, no evidence of any anxiety or depressive feelings. Results Lab / Micro Data 02/17/25 21:00 02/17/25 21:00 Labs: Laboratory Results - last 24 hr 02/17/25 21:00: WBC 7.0, RBC 4.43 L, Hgb 13.2, Hct 38.2 L, MCV 86.2, MCH 29.8, MCHC 34.6, RDW Std Deviation 41.9, RDW Coeff of Ida 13.4, Plt Count 239, MPV 9.6, Immature Gran % (Auto) 0.100, Neut % (Auto) 67.8, Lymph % (Auto) 24.4, [place]% (Auto) 7.4, Eos % (Auto) 0.0, Baso % (Auto) 0.3, Absolute Neuts (auto) 4.8, Absolute Lymphs (auto) 1.72, Nucleated RBC % 0 Assessment & Plan Assessment/Plan (1) Admitted to alcohol detoxification center: PLAN: Plan The patient is a 34 y/o M w/ PMHx: Polysubstance abuse (EtOH 1 pint Francine daily, last use 2 to 3 hours prior to ED arrival, Opiates heroin/fentanyl 1 to 2g daily, used via snorting, last use similarly 2 to 3 hours prior to ED arrival), Tobacco use who presents to the [facility] ED on 02/17/2025 with ongoing substance abuse, both EtOH and opiates with requested detoxification from both alcohol and opiateuse with onset now with mild withdrawal symptoms. #1. Acute EtOH Withdrawal: Will admit to medical surgical floor, routine labs obtained in the ED upon presentation as noted. Will also request hepatic profile. Given interest in sobriety, will initiate and continue on protocol with taper course of Phenobarbital, scheduled gabapentin for seizure prophylaxis, as needed Catapres, Bentyl, Vistaril, IV fluids, IV antiemetics, Tylenol as needed for pain. Will consult Case management for assistance for transition to next level of rehabilitation care. Mag, phos pending. Maintain on CIWA protocol concurrently. #2. Acute Opiate Withdrawal: Given patient concurrent usage of several opiates,will additionally initiate and continue on protocol with tapering course of Subutex, as needed tylenol, ibuprofen, bowelregimen, gabapentin, Bentyl, Vistaril, methocarbamol, clonidine, PRN nightly trazodone for insomnia, IV fluids, IV antiemetics. Once patient clinically improved and completion of tapernearing will plan consultation with case management for transition to next levelof rehabilitation care. #3. Polysubstance Abuse, Chronic: Will obtain HIV, syphilis and hepatitis panelgiven significant polysubstance use although does deny IV substance use. #4. Tobacco use: Encourage tobacco cessation, RT consulted for education, NR ordered. #5. DVT Prophylaxis: Low risk, encourage ambulation. Charges/Coding Visit Charges Inpatient E&M: 45662 Init Hosp L3 02/17/25 2219 Cosigner Signature (if applicable): CC: Dr. Sujey Stacy MD; No Primary Care Physician~ Signed [facility]02-01-2025 [facility] Medical Records Department [address] [place] [id number] Discharge Summary 07/18/24 1315 MR#: [id number] Acct: [id number] Name: YU YOUNGER Rep #: [id number] : 1990 34 From: Yu Ball DO PCP: Care Physician,No Primary Status:ADM IN Location: MS3 [id number] Providers Date of Admission: 07/17/24 Date of Discharge: 07/18/24 Primary Care Physician: No Primary Care Phys Reason For Visit: OPIATE/POLYSUBSTANCE DETOX Diagnosis Discharge Diagnosis (1) Opiate withdrawal: Status: Acute Code(s): F11.93 - Opioid use, unspecified with withdrawal Plan 1. Acute opiate withdrawal-patient remains relatively asymptomatic at this time, continue present medications #2 polysubstance abuse disorder-complicates care, management, recovery, and prognosis Total clinical time spent by myself addressing patient's medical issues, reviewing all of his data, and collaborating with patient's care team: 25-minute Medications at Discharge Home Medications methadone 10 mg tablet 100 mg PO DAILY 05/22/24 ondansetron HCl 8 mg tablet 8 mg PO Q8H PRN PRN Nausea 7 days #21 tabs 06/23/24 Hospital Course Operations None Procedures None Summary of Care Provided Minutes Spent on Discharge: 30 Hospital Course: Patient was seen and examined in the emergency room at [facility], he requested services for opiate substance use disorder, patient also has a history of polysubstance abuse. Patient appears stable on admission, he was admitted to [place] [address] when orders were entered using the opiate detox order set. Patient had some nervousness during his hospitalization but otherwise it was uneventful. Patient was seen and examined on 07/18/2024: On examination he appeared in good health and spirits. Vital signs as documented. Skin warm and dry and without overt rashes. Neck without JVD, neck was supple, trachea midline, thyroid was normal. Lungs clear bilaterally, normal air movement was noted. Heart exam notable for regular rhythm, normal sounds and absence of murmurs, rubs or gallops. Abdomen unremarkable and without evidence of organomegaly, masses, or abdominal aortic enlargement. Bowel sounds are present, abdomen is not distended. Extremities nonedematous, no cyanosis was noted, no clubbing was noted. Neuro: Cranial nerves II through XII are grossly intact, no focal motor deficits were noted, sensation to light touch and pinprick intact, motor exam 5/5 throughout. Psych: Patient is alert and oriented x3, he does not appear anxious or depressed, he does not appear agitated. Patient abruptly decided on 07/18/2024 to check out of the hospital AGAINST MEDICAL ADVICE. Medical Records Data Medical Nutrition Assessment Dietitian: Malnutrition Criteria Met Start: 07/17/24 13:16 Freq: Status: Active Protocol: Document 07/17/24 13:16 SLA (Rec: 07/17/24 13:16 SLA [id number]) Nutrition Malnutrition Evidence of Yes Malnutrition Exists Malnutrition (severe Social/Behavioral/Environmental ): Evidenced By Suboptimal Energy Intake (Severe),Weight Loss (Severe) Clinical Problem Chronic Disease or Condition Related Malnutrition Etiology related to polysubstance/etoh abuse resulting in inadequate energy intake Signs/Symptoms as evidenced by po intake meeting < 75% of est nutritional needs and 5.3% unplanned wt loss x less than one month and 10% unplanned wt loss x 6 mo ago Status Active Problem Recommendation Dietitian Continue liberal regular diet Recommendations/ Will change ONS from 120 ml ensure plus high protein w/ Changes medpass to 240 ml ensure plus high protein tid w/ meals per pt resquest Weight / BMI Weight Weight: 61.4 kg Body Mass Index (BMI) 20.5 ABG / Lab / Microbiology Data 07/17/24 06:10 07/16/24 23:53 D/C Instructions DC O2, CPAP, BIPAP Needs Home O2 Discharge instructions: No Meaningful Use Info Meaningful Use Meaningful Use Diagnoses (Choose all that apply): None applicable Ischemic Stroke Statin Dosing Therapy Reference: STATIN DOSE THERAPY REFERENCE: * Patients > 75 years receive moderate or high dose statin therapy. * Patients 75 years or YOUNGER should receive HIGH intensity statin dose unless contraindicated. You will be required to document reason for non-treatment if statin daily dose does not meet guidelines. HIGH DOSE STATIN THERAPY DAILY Atorvastatin > than or = to 40 mg Rosuvastatin > than or = to 20 mg Amlodipine + Atorvastatin > than or = to 2.5/40 mg Ezetimibe + Simvastatin 10/80 mg Simvastatin 80mg Discharge Plan Admission Admit Date/Time: 07/17/24 01:18 Attending Provider: Yu Ball Primary Care Provider: Care Physician,No Primary Consulting Providers: Phoenix Ramsey Discharge Orders/Prescriptions Prescriptions: No Acti (more content not included)...[facility]01-07-[address] [facility] Medical Records Department [address] [place] [address] Discharge Summary 06/23/24 1046 MR#: [id number] Acct: [id number] Name: YU YOUNGER Rep #: [id number] : 1990 33 From: Majo Terrazas MD PCP: Care Physician,No Primary Status:DIS IN Location: [facility] [place] [id number] Providers Date of Admission: 06/20/24 Date of Discharge: 06/23/24 Primary Care Physician: No Primary Care Phys Reason For Visit: ETOH detox Diagnosis Discharge Diagnosis (1) Acute alcohol intoxication: Status: Acute Code(s): F10.929 - Alcohol use, unspecified with intoxication, unspecified Plan #ETOH withdrawal # Thrombocytopenia # Opioid use disorder on methadone # Transaminitis Medications at Discharge Home Medications methadone 10 mg tablet 100 mg PO DAILY 05/22/24 ondansetron HCl 8 mg tablet 8 mg PO Q8H PRN PRN Nausea 7 days #21 tabs 06/23/24 Hospital Course Summary of Care Provided Minutes Spent on Discharge: 22 Hospital Course: Patient was admitted 07/11 requesting detox from alcohol. Patient was admitted and detox protocol ordered. They completed their detox and were discharged in stable condition. On the day of discharge patient with a little bit of nausea and abdominal pain still but improving. Discussed his liver function test and importance of establishing with a PCP and he verbalizes understanding. Patient comfortable with discharge home Physical Exam Narrative General: Alert, oriented, no apparent distress HEENT: Atraumatic, normocephalic Eyes: extraocular movements grossly intact Neck: Supple Respiratory: normal respiratory effort Cardiovascular: no edema appreciated GI: nondistended, little bit tender more in right upper quadrant without rebound, guarding, rigidity Extremities: Moving all extremities Neuro: No overt focal neurological deficits Psych: Cooperative Medical Records Data Medical Nutrition Assessment Dietitian: Malnutrition Criteria Met Start: 06/21/24 11:31 Freq: Status: Active Protocol: Document 06/21/24 11:31 GERALDINE (Rec: 06/21/24 11:32 GERALDINE [id number]) Nutrition Malnutrition Evidence of Malnutrition Exists Yes Malnutrition (severe): Social/Behavioral/ Environmental Evidenced By Suboptimal Energy Intake ( Severe),Weight Loss (Severe) Clinical Problem Acute Disease or Injury Related Malnutrition Etiology related to etoh abuse and suboptimal energy intake Signs/Symptoms as evidenced by 14% unintended wt loss and po intake meeting <75% of est nutritional needs x 1 mo Status Active Problem Recommendation Dietitian Recommendations/Changes Continue liberal regular diet Will order 8 oz vanilla ensure plus high protein tid w/ meals for increased nutrition if consumed Weight / BMI Weight Weight: 64.773 kg Body Mass Index (BMI) 21.7 ABG / Lab / Microbiology Data 06/20/24 13:25 06/20/24 13:25 D/C Instructions Discharge Diet: No restrictions DC O2, CPAP, BIPAP Needs Home O2 Discharge instructions: No Meaningful Use Info Meaningful Use Meaningful Use Diagnoses (Choose all that apply): None applicable Ischemic Stroke Statin Dosing Therapy Reference: STATIN DOSE THERAPY REFERENCE: * Patients > 75 years receive moderate or high dose statin therapy. * Patients 75 years or YOUNGER should receive HIGH intensity statin dose unless contraindicated. You will be required to document reason for non-treatment if statin daily dose does not meet guidelines. HIGH DOSE STATIN THERAPY DAILY Atorvastatin > than or = to 40 mg Rosuvastatin > than or = to 20 mg Amlodipine + Atorvastatin > than or = to 2.5/40 mg Ezetimibe + Simvastatin 10/80 mg Simvastatin 80mg Discharge Plan Admission Admit Date/Time: 06/20/24 14:34 Primary Reason for Your Visit: Alcohol detox Attending Provider: Majo Terrazas Primary Care Provider: Care Physician,No Primary Consulting Providers: David Mcguire Instructions Patient Instructions: Alcohol Addiction Additional Instructions / Restrictions: - It is recommended that you establish care with a primary care physician upon discharge given your elevated liver function tests -And is also strongly advised that you avoid alcohol Discharge Orders/Prescriptions Prescriptions: New ondansetron HCl 8 mg Tablet 8 mg PO Q8H PRN PRN (Reason: Nausea) 7 Days Qty: 21 0RF Continued methadone 10 mg tablet 100 mg PO DAILY Patient Comments: pt gets dose daily from clinic. has saturday's dose with him Referrals / Follow Up: Care Physician,No Primary [Primary Care Provider] - ( -If you do not have a primary care physician of list of local primary care physicians can be provided for you upon discharge. Please ask for this list prior to discharge ) Disposition Disposition (needs filled in before D/C Or (more content not included)...[facility]11-07-2024 Plan of care note* Plan of Care - Che Manriquez RN - 04/23/2024 3:40 PM EST Problem: Actual or potential alteration in health Goal: Absence of healthcare acquired conditions Outcome: Completed Goal: Knowledge of Interdisciplinary Plan of Care Outcome: Completed Goal: Knowledge of Enviroment Outcome: Completed Problem: Pain Goal: Reduced pain sensation Outcome: Completed Goal: Control of acute pain to acceptable level Outcome: Completed Goal: Able to cope with pain Outcome: Completed Goal: Able to achieve maximum level of physical functioning Outcome: Completed Goal: Able to achieve maximum level of psychosocial functioning Outcome: Completed Problem: Pressure Injury, Risk of Goal: Absence of pressure injury Outcome: Completed [id number] Miscellaneous Notes* Plan of Care - Che Manriquez RN - 04/23/2024 3:40 PM EST Problem: Actual or potential alteration in health Goal: Absence of healthcare acquired conditions Outcome: Completed Goal: Knowledge of Interdisciplinary Plan of Care Outcome: Completed Goal: Knowledge of Enviroment Outcome: Completed Problem: Pain Goal: Reduced pain sensation Outcome: Completed Goal: Control of acute pain to acceptable level Outcome: Completed Goal: Able to cope with pain Outcome: Completed Goal: Able to achieve maximum level of physical functioning Outcome: Completed Goal: Able to achieve maximum level of psychosocial functioning Outcome: Completed Problem: Pressure Injury, Risk of Goal: Absence of pressure injury Outcome: Completed * Quick Note - hCe Manriquez RN - 04/23/2024 3:37 PM EST Discharge instructions reviewed with patient and spouse. States understanding. Aware of all home meds stopped. Medications reviewed and brought from discharge pharmacy. * Plan of Care - Marielle Anne RN - 04/22/2024 7:25 PM EST POC reviewed & continues. * Plan of Care - Bhavesh Weinstein RN - 04/20/2024 5:54 PM EST POC reviewed and continued Problem: Actual or potential alteration in health Goal: Absence of healthcare acquired conditions Outcome: Partially Met Goal: Knowledge of Interdisciplinary Plan of Care Outcome: Partially Met Goal: Knowledge of Enviroment Outcome: Partially Met Problem: Pain Goal: Reduced pain sensation Outcome: Partially Met Goal: Control of acute pain to acceptable level Outcome: Partially Met Goal: Able to cope with pain Outcome: Partially Met Goal: Able to achieve maximum level of physical functioning Outcome: Partially Met Goal: Able to achieve maximum level of psychosocial functioning Outcome: Partially Met documented in this [id number] Progress note* Quick Note - Che Manriquez RN - 04/23/2024 3:37 PM EST Discharge instructions reviewed with patient and spouse. States understanding. Aware of all home meds stopped. Medications reviewed and brought from discharge pharmacy. [id number] [facility] DISCHARGE SUMMARY -- [facility] Yu Younger Admitted: 04/19/2024 Discharge Date: 04/23/24 PCP Handoff Recommended Outpatient Testing Follow-up with primary care provider. Follow-up with methadone clinic for regular methadone dosing. Results Pending At Discharge None Clinical Summary Assessment and Plan Yu Younger is a 33 year old gentleman with a past medical history of seizures, ETOH abuse, opiate abuse, tobacco use disorder, who presented to [facility] 04/19/2024 with complaints of abdominal pain. Initially presented to [facility] ED on 04/19 where imaging was consistent with acute pancreatitis. Placed in observation for further workup and management. 04/23: Patient examined at bedside. Continues to tolerate p.o. intake without abdominal pain, nausea or vomiting. Will discharge patient today. Counseled patient on alcohol cessation. Patient to follow-up with methadone clinic for his regular dosing. Acute pancreatitis, resolved CT at OSH 04/19 Findings compatible with acute pancreatitis without necrosis of the pancreas Tolerating regular diet Repeat CT 04/21: Moderate to severe pancreatitis, increased compared to 04/19 without evidence of pancreatic necrosis or thrombosis Counseled on alcohol cessation Fatty liver Transaminitis, improving Outpatient evaluation and management Alcohol cessation, to follow-up with primary care provider ETOH abuse Alcohol withdrawal POA, now resolved P.o. thiamine Follow-up outpatient with addiction medicine. Opiate abuse with dependence D/w pharmacy, has been following at [facility] Last methadone dose 40 mg on 04/17, but did not return for subsequent doses Has been inconsistent with follow-up Will recommend he resume outpatient follow-up at discharge Tobacco use disorder Encourage cessation Discharge Medications Discharge Medications New Medications Details folic acid 1 MG tablet Commonly known as: FOLVITE Take 1 (one) tablet (1 mg total) by mouth daily . Quantity: 30 tablet sod phos di, mono-K phos mono 250 mg Tab Commonly known as: K-PHOS NEUTRAL Take 1 (one) tablet (250 mg total) by mouth 4 (four) times a day for 2 days . Quantity: 8 tablet thiamine 100 MG tablet Take 1 (one) tablet (100 mg total) by mouth daily . Quantity: 30 tablet Stopped Medications amitriptyline 75 MG tablet Commonly known as: ELAVIL cloNIDine HCL 0.1 MG tablet Commonly known as: CATAPRES gabapentin 400 MG capsule Commonly known as: NEURONTIN methadone 10 mg/mL solution Commonly known as: DOLOPHINE rOPINIRole 0.5 MG tablet Commonly known as: REQUIP Physician(s) Follow Up: No follow-up provider specified. Condition at Discharge: Good Disposition: Home I reviewed discharge recommendations with the patient in person. Patient instructions, including activity, were given to the patient/family at discharge. On day of discharge I saw Yu Younger and spent: > 30 minutes on discharge. Completed by: Richard Pastrana MD on 04/23/24, 12:20 PM AUTHENTICATED BY RICHARD PASTRANA, ON 04/23/2024 12:25:29[facility]11-07-2024 Hospital course Narrative* Richard Pastrana MD - 04/23/2024 12:20 PM EST [facility] DISCHARGE SUMMARY -- [facility] Yu Younger Admitted: 04/19/2024 Discharge Date: 04/23/24 PCP Handoff Recommended Outpatient Testing Follow-up with primary care provider. Follow-up with methadone clinic for regular methadone dosing. Results Pending At Discharge None Clinical Summary Assessment and Plan Yu Younger is a 33 year old gentleman with a past medical history of seizures, ETOH abuse, opiate abuse, tobacco use disorder, who presented to [facility] 04/19/2024 with complaints of abdominal pain. Initially presented to [facility] ED on 04/19 where imaging was consistent with acute pancreatitis. Placed in observation for further workup and management. 04/23: Patient examined at bedside. Continues to tolerate p.o. intake without abdominal pain, nauseaor vomiting. Will discharge patient today. Counseled patient on alcohol cessation. Patient to follow-up with methadone clinic for his regular dosing. Acute pancreatitis, resolved CT at OSH 04/19 Findings compatible with acute pancreatitis without necrosis of the pancreas Tolerating regular diet Repeat CT 04/21: Moderate to severe pancreatitis, increased compared to 04/19 without evidence of pancreatic necrosis or thrombosis Counseled on alcohol cessation Fatty liver Transaminitis, improving Outpatient evaluation and management Alcohol cessation, to follow-up with primary care provider ETOH abuse Alcohol withdrawal POA, now resolved P.o. thiamine Follow-up outpatient with addiction medicine. Opiate abuse with dependence D/w pharmacy, has been following at [facility] Last methadone dose 40 mg on 04/17, but did not return for subsequent doses Has been inconsistent with follow-up Will recommend he resume outpatient follow-up at discharge Tobacco use disorder Encourage cessation Discharge Medications Discharge Medications New Medications Details folic acid 1 MG tablet Commonly known as: FOLVITE Take 1 (one) tablet (1 mg total) by mouth daily . Quantity: 30 tablet sod phos di, mono-K phos mono 250 mg Tab Commonly known as: K-PHOS NEUTRAL Take 1 (one) tablet (250 mg total) by mouth 4 (four) times a day for 2 days . Quantity: 8 tablet thiamine 100 MG tablet Take 1 (one) tablet (100 mg total) by mouth daily . Quantity: 30 tablet Stopped Medications amitriptyline 75 MG tablet Commonly known as: ELAVIL cloNIDine HCL 0.1 MG tablet Commonly known as: CATAPRES gabapentin 400 MG capsule Commonly known as: NEURONTIN methadone 10 mg/mL solution Commonly known as: DOLOPHINE rOPINIRole 0.5 MG tablet Commonly known as: REQUIP Physician(s) Follow Up: No follow-up provider specified. Condition at Discharge: Good Disposition: Home I reviewed discharge recommendations with the patient in person. Patient instructions, including activity, were given to the patient/family at discharge. On day of discharge I saw Yu Younger and spent: > 30 minutes on discharge. Completed by: Richard Pastrana MD on 04/23/24, 12:20 PM documented in this [id number] Plan of care note* Plan of Care - Marielle Anne RN - 04/22/2024 7:25 PM EST POC reviewed & continues. [id number] NoteHMS PROGRESS NOTE Assessment and Plan Yu Younger is a 33 year old gentleman with a past medical history of seizures, ETOH abuse, opiate abuse, tobacco use disorder, who presented to [facility] 04/19/2024 with complaints of abdominal pain. Initially presented to [facility] ED on 04/19 where imaging was consistent with acute pancreatitis. Placed in observation for further workup and management. Acute pancreatitis, improving CT at OSH 04/19 Findings compatible with acute pancreatitis without necrosis of the pancreas CLD as tolerated. IV fluids Pain control: increased IV dilaudid to opiate tolerant regimen Bowel regimen ordered Repeat CT 04/21: Moderate to severe pancreatitis, increased compared to 04/19 without evidence of pancreatic necrosis or thrombosis Fatty liver Transaminitis Outpatient evaluation and management Add LFTs to AM labs; were elevated yesterday at OSH ETOH abuse Alcohol withdrawal, resolved Phenobarbital taper [facility] protocol IV thiamine Will plan for addiction medicine consult once improved medically Opiate abuse with dependence D/w pharmacy, has been following at [facility] Last methadone dose 40 mg on 04/17, but did not return for subsequent doses Has been inconsistent with follow-up Will recommend he resume outpatient follow-up at discharge Seizure disorder Per chart review, not on any anti-epileptics currently at home Monitor + follow clinically; management of ETOH abuse as above Tobacco use disorder Encourage cessation NRT ordered Code Status: Full Code - Unverified Disposition Medically stable for discharge date: TBD Patient requires continued hospitalization due to: acute pancreatitis Discharge location: Home Quality Measures DVT prophylaxis: Heparin Torres catheter: Absent Subjective Patient examined at bedside during rounds. Tolerating advancing p.o. diet. Abdominal pain significantly improved. Review of Systems All relevant systems have been reviewed and are negative except as noted in HPI or below Objective BP (!) 148/89 Pulse 85 Temp 99.2 degrees F (37.3 degrees C) (Oral) Resp 16 Ht 5' 8 Wt 66.1 kg (145 lb 11.6 oz) SpO2 93% BMI 22.16 kg/m Physical Examination General Appearance: alert; well appearing, mild acute distress HEENT: Head- normocephalic; Eyes- EOMI, sclera anicteric; Ears- hearing intact; Nose- no nasal discharge; Throat- mucous membranes moist Cardiovascular: regular rate and rhythm Respiratory: respirations are unlabored, on room air Abdomen: soft, non-distended; tenderness to palpation of bilateral lower quadrants Neurological: oriented x 3; normal speech; no focal findings or movement disorder noted Musculoskeletal: no significant deformity or tenderness to palpation Skin: normal coloration; no obvious rashes, lesions or skin breakdown Psych: normal mood and affect Results/Medications Reviewed 04/22/2024 2:36 PM Laboratory, Microbiology, Radiology, Cardiology, Medications, and Transcriptions AUTHENTICATED BY RICHARD PASTRANA, ON 04/23/2024 08:25:30[facility]11-06-2024 History of Present illness Narrative* Richard Pastrana MD - 04/22/2024 2:36 PM EST [facility] PROGRESS NOTE Assessment and Plan Yu Younger is a 33 year old gentleman with a past medical history of seizures, ETOH abuse, opiate abuse, tobacco use disorder, who presented to [facility] 04/19/2024 with complaints of abdominal pain. Initially presented to [facility] ED on 04/19 where imaging was consistent with acute pancreatitis. Placed in observation for further workup and management. Acute pancreatitis, improving CT at OSH 04/19 Findings compatible with acute pancreatitis without necrosis of the pancreas CLD as tolerated. IV fluids Pain control: increased IV dilaudid to opiate tolerant regimen Bowel regimen ordered Repeat CT 04/21: Moderate to severe pancreatitis, increased compared to 04/19 without evidence of pancreatic necrosis or thrombosis Fatty liver Transaminitis Outpatient evaluation and management Add LFTs to AM labs; were elevated yesterday at OSH ETOH abuse Alcohol withdrawal, resolved Phenobarbital taper [facility] protocol IV thiamine Will plan for addiction medicine consult once improved medically Opiate abuse with dependence D/w pharmacy, has been following at [facility] Last methadone dose 40 mg on 04/17, but did not return for subsequent doses Has been inconsistent with follow-up Will recommend he resume outpatient follow-up at discharge Seizure disorder Per chart review, not on any anti-epileptics currently at home Monitor + follow clinically; management of ETOH abuse as above Tobacco use disorder Encourage cessation NRT ordered Code Status: Full Code - Unverified Disposition Medically stable for discharge date: TBD Patient requires continued hospitalization due to: acute pancreatitis Discharge location: Home Quality Measures DVT prophylaxis: Heparin Torres catheter: Absent Subjective Patient examined at bedside during rounds. Tolerating advancing p.o. diet. Abdominal pain significantly improved. Review of Systems All relevant systems have been reviewed and are negative except as noted in HPI or below Objective BP (!) 148/89 Pulse 85 Temp 99.2 F (37.3 C) (Oral) Resp 16 Ht 5' 8 Wt 66.1 kg (145 lb 11.6 oz) SpO2 93% BMI 22.16 kg/m Physical Examination General Appearance: alert; well appearing, mild acute distress HEENT: Head- normocephalic; Eyes- EOMI, sclera anicteric; Ears- hearing intact; Nose- no nasal discharge; Throat- mucous membranes moist Cardiovascular: regular rate and rhythm Respiratory: respirations are unlabored, on room air Abdomen: soft, non-distended; tenderness to palpation of bilateral lower quadrants Neurological: oriented x 3; normal speech; no focal findings or movement disorder noted Musculoskeletal: no significant deformity or tenderness to palpation Skin: normal coloration; no obvious rashes, lesions or skin breakdown Psych: normal mood and affect Results/Medications Reviewed 04/22/2024 2:36 PM Laboratory, Microbiology, Radiology, Cardiology, Medications, and Transcriptions * Richard Pastrana MD - 04/21/2024 2:35 PM EST [facility] PROGRESS NOTE Assessment and Plan Yu Younger is a 33 year old gentleman with a past medical history of seizures, ETOH abuse, opiate abuse, tobacco use disorder, who presented to [facility] 04/19/2024 with complaints of abdominal pain. Initially presented to [facility] ED on 04/19 where imaging was consistent with acute pancreatitis. Placed in observation for further workup and management. Acute pancreatitis CT at OSH 04/19 Findings compatible with acute pancreatitis without necrosis of the pancreas CLD as tolerated. IV fluids Pain control: increased IV dilaudid to opiate tolerant regimen Bowel regimen ordered Repeat CT 04/21: Moderate to severe pancreatitis, increased compared to 04/19 without evidence of pancreatic necrosis or thrombosis Fatty liver Transaminitis Outpatient evaluation and management Add LFTs to AM labs; were elevated yesterday at OSH ETOH abuse Phenobarbital taper [facility] protocol IV thiamine Will plan for addiction medicine consult once improved medically Opiate abuse D/w pharmacy, has been following at [facility] Last methadone dose 40 mg on 04/17, but did not return for subsequent doses Has been inconsistent with follow-up Will recommend he resume outpatient follow-up at discharge Seizure disorder Per chart review, not on any anti-epileptics currently at home Monitor + follow clinically; management of ETOH abuse as above Tobacco use disorder Encourage cessation NRT ordered Code Status: Full Code - Unverified Disposition Medically stable for discharge date: TBD Patient requires continued hospitalization due to: acute pancreatitis Discharge location: Home Quality Measures DVT prophylaxis: Heparin Torres catheter: Absent Subjective Patient evaluated at bedside. Was n.p.o. since admission. Continues to have nausea, however will beable to try CLD. Continues to have moderate to severe abdominal pain. Repeat imaging reviewed. Review of Systems All relevant systems have been reviewed and are negative except as noted in HPI or below Objective BP (!) 161/93 Pulse 73 Temp 98.2 F (36.8 C) (Oral) Resp 18 Ht 5' 8 Wt 66.1 kg (145 lb 11.6 oz) SpO2 96% BMI 22.16 kg/m Physical Examination General Appearance: alert; well appearing, mild acute distress HEENT: Head- normocephalic; Eyes- EOMI, sclera anicteric; Ears- hearing intact; Nose- no nasal discharge; Throat- mucous membranes moist Cardiovascular: regular rate and rhythm Respiratory: respirations are unlabored, on room air Abdomen: soft, non-distended; tenderness to palpation of bilateral lower quadrants Neurological: oriented x 3; normal speech; no focal findings or movement disorder noted Musculoskeletal: no significant deformity or tenderness to palpation Skin: normal coloration; no obvious rashes, lesions or skin breakdown Psych: normal mood and affect Results/Medications Reviewed 04/21/2024 2:35 PM Laboratory, Microbiology, Radiology, Cardiology, Medications, and Transcriptions * Tesha Garsia PA-C - 04/20/2024 10:27 AM EST [facility] PROGRESS NOTE Assessment and Plan Yu Younger is a 33 year old gentleman with a past medical history of seizures, ETOH abuse, opiate abuse, tobacco use disorder, who presented to [facility] 04/19/2024 with complaints of abdominal pain. Initially presented to [facility] ED on 04/19 where imaging was consistent with acute pancreatitis. Placed in observation for further workup and management. Acute pancreatitis CT at OSH 04/19 Findings compatible with acute pancreatitis without necrosis of the pancreas Continue NPO, IV fluids Pain control: increased IV dilaudid to opiate tolerant regimen Bowel regimen ordered Fatty liver Transaminitis Outpatient evaluation and management Add LFTs to AM labs; were elevated yesterday at OSH ETOH abuse Phenobarbital taper [facility] protocol IV thiamine Will plan for addiction medicine consult once improved medically Opiate abuse D/w pharmacy, has been following at [facility] Last methadone dose 40 mg on 04/17, but did not return for subsequent doses Has been inconsistent with follow-up Will recommend he resume outpatient follow-up at discharge Seizure disorder Per chart review, not on any anti-epileptics currently at home Monitor + follow clinically; management of ETOH abuse as above Tobacco use disorder Encourage cessation NRT ordered Code Status: Full Code - Unverified Disposition Medically stable for discharge date: TBD Patient requires continued hospitalization due to: acute pancreatitis Discharge location: Home Quality Measures DVT prophylaxis: Heparin Torres catheter: Absent Subjective No acute events noted overnight. Afebrile. Saturating well on room air. Still NPO, continues to c/o severe abdominal pain, thus far not well controlled with current pain meds. Occasional nausea. Review of Systems All relevant systems have been reviewed and are negative except as noted in HPI or below Objective BP (!) 157/97 (BP Location: Left arm, Patient Position: Lying) Pulse 67 Temp 98.6 F (37 C) (Oral) Resp 16 Ht 5' 8 Wt 66.1 kg (145 lb 11.6 oz) SpO2 96% BMI 22.16 kg/m Physical Examination General Appearance: alert; well appearing, mild acute distress HEENT: Head- normocephalic; Eyes- EOMI, sclera anicteric; Ears- hearing intact; Nose- no nasal discharge; Throat- mucous membranes moist Cardiovascular: regular rate and rhythm Respiratory: respirations are unlabored, on room air Abdomen: soft, non-distended; tenderness to palpation of bilateral lower quadrants Neurological: oriented x 3; normal speech; no focal findings or movement disorder noted Musculoskeletal: no significant deformity or tenderness to palpation Skin: normal coloration; no obvious rashes, lesions or skin breakdown Psych: normal mood and affect Results/Medications Reviewed 04/20/2024 10:27 AM Laboratory, Microbiology, Radiology, Cardiology, Medications, and Transcriptions documented in this [id number] NoteHMS PROGRESS NOTE Assessment and Plan Yu Younger is a 33 year old gentleman with a past medical history of seizures, ETOH abuse, opiate abuse, tobacco use disorder, who presented to [facility] 04/19/2024 with complaints of abdominal pain. Initially presented to [facility] ED on 04/19 where imaging was consistent with acute pancreatitis. Placed in observation for further workup and management. Acute pancreatitis CT at OSH 04/19 Findings compatible with acute pancreatitis without necrosis of the pancreas CLD as tolerated. IV fluids Pain control: increased IV dilaudid to opiate tolerant regimen Bowel regimen ordered Repeat CT 04/21: Moderate to severe pancreatitis, increased compared to 04/19 without evidence of pancreatic necrosis or thrombosis Fatty liver Transaminitis Outpatient evaluation and management Add LFTs to AM labs; were elevated yesterday at OSH ETOH abuse Phenobarbital taper [facility] protocol IV thiamine Will plan for addiction medicine consult once improved medically Opiate abuse D/w pharmacy, has been following at [facility] Last methadone dose 40 mg on 04/17, but did not return for subsequent doses Has been inconsistent with follow-up Will recommend he resume outpatient follow-up at discharge Seizure disorder Per chart review, not on any anti-epileptics currently at home Monitor + follow clinically; management of ETOH abuse as above Tobacco use disorder Encourage cessation NRT ordered Code Status: Full Code - Unverified Disposition Medically stable for discharge date: TBD Patient requires continued hospitalization due to: acute pancreatitis Discharge location: Home Quality Measures DVT prophylaxis: Heparin Torres catheter: Absent Subjective Patient evaluated at bedside. Was n.p.o. since admission. Continues to have nausea, however will be able to try CLD. Continues to have moderate to severe abdominal pain. Repeat imaging reviewed. Review of Systems All relevant systems have been reviewed and are negative except as noted in HPI or below Objective BP (!) 161/93 Pulse 73 Temp 98.2 degrees F (36.8 degrees C) (Oral) Resp 18 Ht 5' 8 Wt 66.1 kg (145 lb 11.6 oz) SpO2 96% BMI 22.16 kg/m Physical Examination General Appearance: alert; well appearing, mild acute distress HEENT: Head- normocephalic; Eyes- EOMI, sclera anicteric; Ears- hearing intact; Nose- no nasal discharge; Throat- mucous membranes moist Cardiovascular: regular rate and rhythm Respiratory: respirations are unlabored, on room air Abdomen: soft, non-distended; tenderness to palpation of bilateral lower quadrants Neurological: oriented x 3; normal speech; no focal findings or movement disorder noted Musculoskeletal: no significant deformity or tenderness to palpation Skin: normal coloration; no obvious rashes, lesions or skin breakdown Psych: normal mood and affect Results/Medications Reviewed 04/21/2024 2:35 PM Laboratory, Microbiology, Radiology, Cardiology, Medications, and Transcriptions AUTHENTICATED BY RICHARD PASTRANA, ON 04/21/2024 14:38:02[facility]11-05-2024 Note 1. There are findings of moderate to severe acute pancreatitis described above noted to be substantially progressive from 04/19/2024. No evidence for pancreatic necrosis or vascular thrombosis. 2. Small effusions and adjacent lower lobe atelectasis is new. 3. There is mild ascites. 4. There is moderate diffuse fatty infiltration of the liver. Workstation ID: [id number] Plan of care note* Plan of Care - Bhavesh Weinstein RN - 04/20/2024 5:54 PM EST POC reviewed and continued Problem: Actual or potential alteration in health Goal: Absence of healthcare acquired conditions Outcome: Partially Met Goal: Knowledge of Interdisciplinary Plan of Care Outcome: Partially Met Goal: Knowledge of Enviroment Outcome: Partially Met Problem: Pain Goal: Reduced pain sensation Outcome: Partially Met Goal: Control of acute pain to acceptable level Outcome: Partially Met Goal: Able to cope with pain Outcome: Partially Met Goal: Able to achieve maximum level of physical functioning Outcome: Partially Met Goal: Able to achieve maximum level of psychosocial functioning Outcome: Partially Met [id number] NoteHMS PROGRESS NOTE Assessment and Plan Yu Younger is a 33 year old gentleman with a past medical history of seizures, ETOH abuse, opiate abuse, tobacco use disorder, who presented to [facility] 04/19/2024 with complaints of abdominal pain. Initially presented to [facility] ED on 04/19 where imaging was consistent with acute pancreatitis. Placed in observation for further workup and management. Acute pancreatitis CT at OSH 04/19 Findings compatible with acute pancreatitis without necrosis of the pancreas Continue NPO, IV fluids Pain control: increased IV dilaudid to opiate tolerant regimen Bowel regimen ordered Fatty liver Transaminitis Outpatient evaluation and management Add LFTs to AM labs; were elevated yesterday at OSH ETOH abuse Phenobarbital taper [facility] protocol IV thiamine Will plan for addiction medicine consult once improved medically Opiate abuse D/w pharmacy, has been following at [facility] Last methadone dose 40 mg on 04/17, but did not return for subsequent doses Has been inconsistent with follow-up Will recommend he resume outpatient follow-up at discharge Seizure disorder Per chart review, not on any anti-epileptics currently at home Monitor + follow clinically; management of ETOH abuse as above Tobacco use disorder Encourage cessation NRT ordered Code Status: Full Code - Unverified Disposition Medically stable for discharge date: TBD Patient requires continued hospitalization due to: acute pancreatitis Discharge location: Home Quality Measures DVT prophylaxis: Heparin Torres catheter: Absent Subjective No acute events noted overnight. Afebrile. Saturating well on room air. Still NPO, continues to c/o severe abdominal pain, thus far not well controlled with current pain meds. Occasional nausea. Review of Systems All relevant systems have been reviewed and are negative except as noted in HPI or below Objective BP (!) 157/97 (BP Location: Left arm, Patient Position: Lying) Pulse 67 Temp 98.6 degrees F (37 degrees C) (Oral) Resp 16 Ht 5' 8 Wt 66.1 kg (145 lb 11.6 oz) SpO2 96% BMI 22.16 kg/m Physical Examination General Appearance: alert; well appearing, mild acute distress HEENT: Head- normocephalic; Eyes- EOMI, sclera anicteric; Ears- hearing intact; Nose- no nasal discharge; Throat- mucous membranes moist Cardiovascular: regular rate and rhythm Respiratory: respirations are unlabored, on room air Abdomen: soft, non-distended; tenderness to palpation of bilateral lower quadrants Neurological: oriented x 3; normal speech; no focal findings or movement disorder noted Musculoskeletal: no significant deformity or tenderness to palpation Skin: normal coloration; no obvious rashes, lesions or skin breakdown Psych: normal mood and affect Results/Medications Reviewed 04/20/2024 10:27 AM Laboratory, Microbiology, Radiology, Cardiology, Medications, and Transcriptions AUTHENTICATED BY TESHA GARSIA ON 04/20/2024 10:46:24[facility] 04-19-2024 Emergency department Note* Lily Goss RN - 04/19/2024 3:59 PM EST Hourly rounding assessment completed on the patient. [] Patient updated on plan of care [x] All comfort needs addressed [x] Patient updated on duration of visit All questions answered, patient denies further needs. Call light within reach. [id number] Emergency department Note* Lily Goss RN - 04/19/2024 3:59 PM EST Hourly rounding assessment completed on the patient. [] Patient updated on plan of care [x] All comfort needs addressed [x] Patient updated on duration of visit All questions answered, patient denies further needs. Call light within reach. * Akhil Ann MD - 04/19/2024 2:50 PM ESTAssociated Order(s): Critical Care [facility] EM[facility]ENCY [facility] ATTENDING NOTE: NAME: Yu Younger CSN: [id number] 33 y.o. PCP: Justin Pearce MD History: Chief Complaint: Abdominal Pain HPI: 33-year-old male daily drinker presents to the emergency department for evaluation of diffuse abdominal pain predominantly in epigastric region with radiation to the back that is been present for the past couple days worsening in nature. Patient is reporting associated symptoms of nausea and vomiting. No specific alleviating or aggravating factors. Patient states that he drinks daily last drink was yesterday evening. Patient states he was evaluated at another ER and was told to come in here for further evaluation. Patient states that he has a lot of pain and requesting pain medications. PMHx: Past Medical History: Diagnosis Date Seizures (HCC) PMSx: History reviewed. No pertinent surgical history. FAM. Hx: History reviewed. No pertinent family history. SOC. 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 Social Drivers of Health Financial Resource Strain: Not on File (02/09/2019) Received from [facility] Financial Resource Strain Financial Resource Strain: 0 Food Insecurity: Not on File (02/09/2019) Received from [facility] Food Insecurity Food: 0 Transportation Needs: Not on File (02/09/2019) Received from [facility] Transportation Needs Transportation: 0 Physical Activity: Not on File (02/09/2019) Received from [facility] Physical Activity Physical Activity: 0 Stress: Not on File (02/09/2019) Received from [facility] Stress Stress: 0 Social Connections: Not on File (02/09/2019) Received from [facility] Social Connections Social Connections and Isolation: 0 Housing Stability: Not on File (02/09/2019) Received from [facility] Housing Stability Housin MEDs: Previous Medications Medication Sig amitriptyline (ELAVIL) 75 MG tablet Take 1 (one) tablet (75 mg total) by mouth nightly for 7 days . cloNIDine HCL (CATAPRES) 0.1 MG tablet Take 1 (one) tablet (0.1 mg total) by mouth 2 (two) times a day for 7 days . gabapentin (NEURONTIN) 400 MG capsule Take 1 (one) capsule (400 mg total) by mouth every 8 (eight) hours (Days supply per fill: 30 day supply . methadone (DOLOPHINE) 10 mg/mL solution Take 18 mL (180 mg total) by mouth once daily Per Patient Report Reasons: opioid use disorder. rOPINIRole (REQUIP) 0.5 MG tablet Take 1 (one) tablet (0.5 mg total) by mouth nightly . ALL: Allergies Allergen Reactions Keppra [Levetiracetam] Physical Exam: Patient Vitals for the past 24 hrs: BP Temp Temp src Pulse Resp SpO2 Height Weight 04/19/24 1422 -- -- -- -- -- -- 5' 8 74.8 kg (165 lb) 04/19/24 1421 (!) 174/91 98 F (36.7 C) Oral (!) 115 (!) 25 98 % -- -- Physical Exam Vitals and nursing note reviewed. Constitutional: General: He is awake. Comments: Anxious and diaphoretic HENT: Head: Normocephalic and atraumatic. Nose: Nose normal. Eyes: General: Lids are normal. No scleral icterus. Cardiovascular: Rate and Rhythm: Tachycardia present. Pulmonary: Effort: Pulmonary effort is normal. No accessory muscle usage or respiratory distress. Abdominal: Comments: Diffusely tender to palpation Skin: General: Skin is warm. Capillary Refill: Capillary refill takes less than 2 seconds. Neurological: Mental Status: He is alert and oriented to person, place, and time. Laboratory & Radiological Imaging (if done): Labs Reviewed MAGNESIUM LEVEL PHOSPHORUS No orders to display Procedures: Critical Care Performed by: Akhil Ann MD Authorized by: Akhil Ann MD Total critical care time: 15 minutes Critical care was time spent personally by me on the following activities: examination of patient and pulse oximetry. ED Course / Medical Decision Making: I did personally review Yu's past medical history, surgical history, social history, as well as family history (when relevant). After reviewing the items above, I did look at previous medical documentation. Social conditions impacting the patients care are: Unknown Some Differential Diagnoses Include: Pancreatitis cholecystitis alcohol withdrawal Labs/Imaging: Lipase level elevated. Transaminitis. EtOH positive ED course: Patient presents the emergency department with history and exam concerning for acute pancreatitis. Patient is a daily drinker and symptoms likely secondary to alcoholism. Patient also withphysical exam findings concerning for alcohol withdrawal as well. Ativan IV ordered phenobarbital ordered. Fluids and pain medications ordered as well Will admit for further management. Shared decision making used: yes Code Status: Full . Clinical Impression: 1. Alcohol-induced acute pancreatitis, unspecified complication status 2. Alcohol withdrawal syndrome without complication (HCC) Disposition: ED Disposition ED Disposition Hospitalize Condition -- Comment Recommended Level of Care: Intermediate Care Phone call required?: No Akhil Ann MD, MD ED Attending Physician [facility] Akhil Ann MD 04/19/24 1455 * Carla Stahl RN - 04/19/2024 2:21 PM EST Pt into ED from [facility] for ABD pain. Pt states they told him he had swelling to his pancreas. Pt presents with tremors and diaphoretic. VS stable. * Lesley Ayala RN - 04/19/2024 2:20 PM EST Bed: TR1 Expected date: Expected time: Means of arrival: Comments: R1 documented in this [id number] History and physical note* Rosalba Park MD - 04/19/2024 3:11 PM EST [facility] HISTORY AND PHYSICAL -- [facility] Patient Name: Yu Younger : 1990 MR #: [id number] Admit Date: 04/19/2024 Physicians: Justin Pearce MD (Family); No ref. provider found (Referring) Yu Younger is a 33 y.o. male patient of Justin Pearce MD with history of methadone overdose, vaping, CKD, seizure, presented to [facility] from [facility] on 04/19/2024 with acute pancreatitis. Acute pancreatitis secondary to alcohol Fatty liver Transaminitis Alcohol use disorder Elevated alkaline phosphate Last alcohol use was 04/18 evening Alk phos 239, AST 371, ALT 153 AST 2 ALT>2 Lipase 4914 Alcohol positive [facility] protocol Phenobarbital taper IV fluids N.p.o. Check triglycerides Pain management Patient will need addiction consult when stable Hypomagnesemia Magnesium 1.4 Replaced Monitor electrolytes Hypophosphatemia Phosphate 2.5 Replaced Monitor electrolytes CKD Creatinine better than last admission Continue with IV fluids Residence prior to admission: house or apartment Was patient transferred from outlying hospital or ED no Quality Measures DVT Prophylaxis: lovenox Torres Catheter: absent Medication Reconciliation: Verified Admitted with these risk variables:None. Please see assessment and plan for further details. Estimated Date of Discharge less than 2 midnights Code Status Full Code; unverified; reason patient is depressed Chief Complaint abdominal pain History of Present Illness A 33-year-old male with past medical history of methadone overdose, seizure,presents with worseningacute abdominal pain, in the epigastric region with radiation to the back .Patient has been having abdominal pain, 7/10 for the past 3 days and today it got worse associated with nausea and vomiting.Patient reports history of stones in the past but this feels a little different. Patient drinks 3 bottles of beers every day and for the past few months he has been doing that on a regular basis.Patient's last drink was yesterday evening. Patient denies any fevers, chills, cough, chest pain, or shortness of breath.Patient denies any diarrhea or constipation.Normal urinary habits. Past Medical History Past Medical History: Diagnosis Date Seizures (HCC) Past Surgical History History reviewed. No pertinent surgical history. Family History History reviewed. No pertinent family history. Social History Social History Tobacco Use Smoking Status Every Day Current packs/day: 0.50 Average packs/day: 0.5 packs/day for 2.8 years (1.4 ttl pk-yrs) Types: Cigarettes Start date: 2021 Smokeless Tobacco Never Social History Substance and Sexual Activity Alcohol Use Yes Alcohol/week: 3.0 standard drinks of alcohol Types: 3 Cans of beer per week Comment: daily, last drink last night Social History Substance and Sexual Activity Drug Use Yes Types: Marijuana Comment: prescribed Methadone Allergy Information I have reviewed the patient's allergies. Keppra [levetiracetam] Home Medications Home medications were reviewed. Review Of Systems All relevant systems have been reviewed and are negative except as noted in HPI or below Physical Examination BP (!) 174/91 Pulse (!) 115 Temp 98 F (36.7 C) (Oral) Resp (!) 25 Ht 5' 8 Wt 74.8 kg (165 lb) SpO2 98% BMI 25.09 kg/m General Appearance: alert; well appearing; in no acute distress HEENT: Head- normocephalic; Eyes- EOMI, sclera anicteric; Throat- mucous membranes moist Cardiovascular: regular rate and rhythm; normal S1, S2; no murmurs, rubs, clicks or gallops; peripheral edema absent Respiratory: lungs clear to auscultation; without wheezes, rales or rhonchi; on room air Abdomen: Epigastric tenderness, non-distended Neurological: oriented x 3; normal speech; no focal findings or movement disorder noted Musculoskeletal: no significant deformity or tenderness to palpation Skin: normal coloration Psych: normal mood and affect [id number] NoteHMS HISTORY AND PHYSICAL -- [facility] Patient Name: Yu Younger : 1990 MR #: [id number] Admit Date: 04/19/2024 Physicians: Justin Pearce MD (Family); No ref. provider found (Referring) Yu Younger is a 33 y.o. male patient of Justin Pearce MD with history of methadone overdose, vaping, CKD, seizure, presented to [facility] from [facility] on 04/19/2024 with acute pancreatitis. Acute pancreatitis secondary to alcohol Fatty liver Transaminitis Alcohol use disorder Elevated alkaline phosphate Last alcohol use was 04/18 evening Alk phos 239, AST 371, ALT 153 AST 2 ALT>2 Lipase 4914 Alcohol positive [facility] protocol Phenobarbital taper IV fluids N.p.o. Check triglycerides Pain management Patient will need addiction consult when stable Hypomagnesemia Magnesium 1.4 Replaced Monitor electrolytes Hypophosphatemia Phosphate 2.5 Replaced Monitor electrolytes CKD Creatinine better than last admission Continue with IV fluids Residence prior to admission: house or apartment Was patient transferred from outlying hospital or ED no Quality Measures DVT Prophylaxis: lovenox Torres Catheter: absent Medication Reconciliation: Verified Admitted with these risk variables:None. Please see assessment and plan for further details. Estimated Date of Discharge less than 2 midnights Code Status Full Code; unverified; reason patient is depressed Chief Complaint abdominal pain History of Present Illness A 33-year-old male with past medical history of methadone overdose, seizure,presents with worsening acute abdominal pain, in the epigastric region with radiation to the back .Patient has been having abdominal pain, 7/10 for the past 3 days and today it got worse associated with nausea and vomiting. Patient reports history of stones in the past but this feels a little different. Patient drinks 3 bottles of beers every day and for the past few months he has been doing that on a regular basis.Patient's last drink was yesterday evening. Patient denies any fevers, chills, cough, chest pain, or shortness of breath.Patient denies any diarrhea or constipation.Normal urinary habits. Past Medical History Past Medical History: Diagnosis Date Seizures (HCC) Past Surgical History History reviewed. No pertinent surgical history. Family History History reviewed. No pertinent family history. Social History Social History Tobacco Use Smoking Status Every Day Current packs/day: 0.50 Average packs/day: 0.5 packs/day for 2.8 years (1.4 ttl pk-yrs) Types: Cigarettes Start date: 2021 Smokeless Tobacco Never Social History Substance and Sexual Activity Alcohol Use Yes Alcohol/week: 3.0 standard drinks of alcohol Types: 3 Cans of beer per week Comment: daily, last drink last night Social History Substance and Sexual Activity Drug Use Yes Types: Marijuana Comment: prescribed Methadone Allergy Information I have reviewed the patient's allergies. Keppra [levetiracetam] Home Medications Home medications were reviewed. Review Of Systems All relevant systems have been reviewed and are negative except as noted in HPI or below Physical Examination BP (!) 174/91 Pulse (!) 115 Temp 98 degrees F (36.7 degrees C) (Oral) Resp (!) 25 Ht 5' 8 Wt 74.8 kg (165 lb) SpO2 98% BMI 25.09 kg/m General Appearance: alert; well appearing; in no acute distress HEENT: Head- normocephalic; Eyes- EOMI, sclera anicteric; Throat- mucous membranes moist Cardiovascular: regular rate and rhythm; normal S1, S2; no murmurs, rubs, clicks or gallops; peripheral edema absent Respiratory: lungs clear to auscultation; without wheezes, rales or rhonchi; on room air Abdomen: Epigastric tenderness, non-distended Neurological: oriented x 3; normal speech; no focal findings or movement disorder noted Musculoskeletal: no significant deformity or tenderness to palpation Skin: normal coloration Psych: normal mood and affect AUTHENTICATED BY ROSALBA PARK, ON 04/19/2024 17:20:28[facility] 04-19-2024 History and physical note* Rosalba Park MD - 04/19/2024 3:11 PM EST [facility] HISTORY AND PHYSICAL -- [facility] Patient Name: Yu Younger : 1990 MR #: [id number] Admit Date: 04/19/2024 Physicians: Justin Pearce MD (Family); No ref. provider found (Referring) Yu Younger is a 33 y.o. male patient of Justin Pearce MD with history of methadone overdose, vaping, CKD, seizure, presented to [facility] from [facility] on 04/19/2024 with acute pancreatitis. Acute pancreatitis secondary to alcohol Fatty liver Transaminitis Alcohol use disorder Elevated alkaline phosphate Last alcohol use was 04/18 evening Alk phos 239, AST 371, ALT 153 AST 2 ALT>2 Lipase 4914 Alcohol positive [facility] protocol Phenobarbital taper IV fluids N.p.o. Check triglycerides Pain management Patient will need addiction consult when stable Hypomagnesemia Magnesium 1.4 Replaced Monitor electrolytes Hypophosphatemia Phosphate 2.5 Replaced Monitor electrolytes CKD Creatinine better than last admission Continue with IV fluids Residence prior to admission: house or apartment Was patient transferred from outlying hospital or ED no Quality Measures DVT Prophylaxis: lovenox Torres Catheter: absent Medication Reconciliation: Verified Admitted with these risk variables:None. Please see assessment and plan for further details. Estimated Date of Discharge less than 2 midnights Code Status Full Code; unverified; reason patient is depressed Chief Complaint abdominal pain History of Present Illness A 33-year-old male with past medical history of methadone overdose, seizure,presents with worseningacute abdominal pain, in the epigastric region with radiation to the back .Patient has been having abdominal pain, 7/10 for the past 3 days and today it got worse associated with nausea and vomiting.Patient reports history of stones in the past but this feels a little different. Patient drinks 3 bottles of beers every day and for the past few months he has been doing that on a regular basis.Patient's last drink was yesterday evening. Patient denies any fevers, chills, cough, chest pain, or shortness of breath.Patient denies any diarrhea or constipation.Normal urinary habits. Past Medical History Past Medical History: Diagnosis Date Seizures (HCC) Past Surgical History History reviewed. No pertinent surgical history. Family History History reviewed. No pertinent family history. Social History Social History Tobacco Use Smoking Status Every Day Current packs/day: 0.50 Average packs/day: 0.5 packs/day for 2.8 years (1.4 ttl pk-yrs) Types: Cigarettes Start date: 2021 Smokeless Tobacco Never Social History Substance and Sexual Activity Alcohol Use Yes Alcohol/week: 3.0 standard drinks of alcohol Types: 3 Cans of beer per week Comment: daily, last drink last night Social History Substance and Sexual Activity Drug Use Yes Types: Marijuana Comment: prescribed Methadone Allergy Information I have reviewed the patient's allergies. Keppra [levetiracetam] Home Medications Home medications were reviewed. Review Of Systems All relevant systems have been reviewed and are negative except as noted in HPI or below Physical Examination BP (!) 174/91 Pulse (!) 115 Temp 98 F (36.7 C) (Oral) Resp (!) 25 Ht 5' 8 Wt 74.8 kg (165 lb) SpO2 98% BMI 25.09 kg/m General Appearance: alert; well appearing; in no acute distress HEENT: Head- normocephalic; Eyes- EOMI, sclera anicteric; Throat- mucous membranes moist Cardiovascular: regular rate and rhythm; normal S1, S2; no murmurs, rubs, clicks or gallops; peripheral edema absent Respiratory: lungs clear to auscultation; without wheezes, rales or rhonchi; on room air Abdomen: Epigastric tenderness, non-distended Neurological: oriented x 3; normal speech; no focal findings or movement disorder noted Musculoskeletal: no significant deformity or tenderness to palpation Skin: normal coloration Psych: normal mood and affect documented in this [id number] Physician Emergency department Note* Akhil Ann MD - 04/19/2024 2:50 PM ESTAssociated Order(s): Critical Care [facility] EM[facility]GENCY [facility] ATTENDING NOTE: NAME: Yu Younger CSN: [id number] 33 y.o. PCP: Justin Pearce MD History: Chief Complaint: Abdominal Pain HPI: 33-year-old male daily drinker presents to the emergency department for evaluation of diffuse abdominal pain predominantly in epigastric region with radiation to the back that is been present for the past couple days worsening in nature. Patient is reporting associated symptoms of nausea and vomiting. No specific alleviating or aggravating factors. Patient states that he drinks daily last drink was yesterday evening. Patient states he was evaluated at another ER and was told to come in here for further evaluation. Patient states that he has a lot of pain and requesting pain medications. PMHx: Past Medical History: Diagnosis Date Seizures (HCC) PMSx: History reviewed. No pertinent surgical history. FAM. Hx: History reviewed. No pertinent family history. SOC. 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 Social Drivers of Health Financial Resource Strain: Not on File (02/09/2019) [facility]ceived from [facility] Financial Resource Strain Financial Resource Strain: 0 Food Insecurity: Not on File (02/09/2019) Received from [facility] Food Insecurity Food: 0 Transportation Needs: Not on File (02/09/2019) Received from [facility] Transportation Needs Transportation: 0 Physical Activity: Not on File (02/09/2019) Received from [facility] Physical Activity Physical Activity: 0 Stress: Not on File (02/09/2019) Received from [facility] Stress Stress: 0 Social Connections: Not on File (02/09/2019) Received from [facility] Social Connections Social Connections and Isolation: 0 Housing Stability: Not on File (02/09/2019) Received from [facility] Housing Stability Housin MEDs: Previous Medications Medication Sig amitriptyline (ELAVIL) 75 MG tablet Take 1 (one) tablet (75 mg total) by mouth nightly for 7 days . cloNIDine HCL (CATAPRES) 0.1 MG tablet Take 1 (one) tablet (0.1 mg total) by mouth 2 (two) times a day for 7 days . gabapentin (NEURONTIN) 400 MG capsule Take 1 (one) capsule (400 mg total) by mouth every 8 (eight) hours (Days supply per fill: 30 day supply . methadone (DOLOPHINE) 10 mg/mL solution Take 18 mL (180 mg total) by mouth once daily Per Patient Report Reasons: opioid use disorder. rOPINIRole (REQUIP) 0.5 MG tablet Take 1 (one) tablet (0.5 mg total) by mouth nightly . ALL: Allergies Allergen Reactions Keppra [Levetiracetam] Physical Exam: Patient Vitals for the past 24 hrs: BP Temp Temp src Pulse Resp SpO2 Height Weight 04/19/24 1422 -- -- -- -- -- -- 5' 8 74.8 kg (165 lb) 04/19/24 1421 (!) 174/91 98 F (36.7 C) Oral (!) 115 (!) 25 98 % -- -- Physical Exam Vitals and nursing note reviewed. Constitutional: General: He is awake. Comments: Anxious and diaphoretic HENT: Head: Normocephalic and atraumatic. Nose: Nose normal. Eyes: General: Lids are normal. No scleral icterus. Cardiovascular: Rate and Rhythm: Tachycardia present. Pulmonary: Effort: Pulmonary effort is normal. No accessory muscle usage or respiratory distress. Abdominal: Comments: Diffusely tender to palpation Skin: General: Skin is warm. Capillary Refill: Capillary refill takes less than 2 seconds. Neurological: Mental Status: He is alert and oriented to person, place, and time. Laboratory & Radiological Imaging (if done): Labs Reviewed MAGNESIUM LEVEL PHOSPHORUS No orders to display Procedures: Critical Care Performed by: Akhil Ann MD Authorized by: Akhil Ann MD Total critical care time: 15 minutes Critical care was time spent personally by me on the following activities: examination of patient and pulse oximetry. ED Course / Medical Decision Making: I did personally review Yu's past medical history, surgical history, social history, as well as family history (when relevant). After reviewing the items above, I did look at previous medical documentation. Social conditions impacting the patients care are: Unknown Some Differential Diagnoses Include: Pancreatitis cholecystitis alcohol withdrawal Labs/Imaging: Lipase level elevated. Transaminitis. EtOH positive ED course: Patient presents the emergency department with history and exam concerning for acute pancreatitis. Patient is a daily drinker and symptoms likely secondary to alcoholism. Patient also withphysical exam findings concerning for alcohol withdrawal as well. Ativan IV ordered phenobarbital ordered. Fluids and pain medications ordered as well Will admit for further management. Shared decision making used: yes Code Status: Full . Clinical Impression: 1. Alcohol-induced acute pancreatitis, unspecified complication status 2. Alcohol withdrawal syndrome without complication (HCC) Disposition: ED Disposition ED Disposition Hospitalize Condition -- Comment Recommended Level of Care: Intermediate Care Phone call required?: No Akhil Ann MD, MD ED Attending Physician [facility] EM[facility] Akhil Ann MD 04/19/24 1459 [id number] Emergency department Triage note* Carla Stahl RN - 04/19/2024 2:21 PM EST Pt into ED from [facility] for ABD pain. Pt states they told him he had swelling to his pancreas. Pt presents with tremors and diaphoretic. VS stable. [id number] Emergency department Note* Lesley Ayala RN - 04/19/2024 2:20 PM EST Bed: TR1 Expected date: Expected time: Means of arrival: Comments: R1 [id number] Emergency department Note* Dariusz Ramirez DO - 04/19/2024 8:25 AM EST Emergency Department Report [facility] EM[facility]IC[facility] Service Date:.04/19/24 PCP: No primary care provider on file. Chief Complaint: Chief Complaint Patient presents with Nausea Abdominal Pain Patient reports left lower quadrant abdominal pain x 1.5hr that woke him from sleep. Pt states he took Pepto Bismol prior to arrival with no relief. Denies any urinary symptoms. 814 Dr Robison has seen, evaluated this patient, inpatient was transferred to [facility] for admission. Patient did not want to take an ambulance, patient wanted family to drive him to [place]. Dr. Robison stated that patient could not drive to [facility] because he was given Dilaudid in the ER for pain. Dr. Robison has sign patient is out against medical advice, patient waspicked up by another individual and driven to [facility]. Patient did have a bed number there. Security Jaeger saw patient get into another car with another individual who was driving, not this patient and patient was driven to [facility]. I do not see or interact with this patient at all. Patient was signed out against medical advice by Dr. Robison. Please refer to Dr Robison documentation. Patient left against medical advice. It was determined by Dr. Saleh the patient has a functionalmaking decision capacity to leave his signed out against medical advice. Dariusz Ramirez DO 04/19/24 0837 * Kylah Celis RN - 04/19/2024 8:23 AM EST Dacia at [facility] made aware that pt signed out AMA * Kylah Celis RN - 04/19/2024 8:16 AM EST Report called to [facility], RN at [facility] made aware that pt signed out AMA at our facility, denies questions * Tracy Ribeiro - 04/19/2024 8:14 AM EST Sujey miramontes [facility] aware that patient signed out AMA and we no longer need transport * Kylah Celis RN - 04/19/2024 8:10 AM EST Pt ambulatory out of ED, pt provided with room number at [facility] * Tracy Ribeiro - 04/19/2024 8:06 AM EST Patient signs appropriate AMA papers at this time. Patient is aware he is unable to drive due to just being given narcotics. Patient verbalized understanding. * Kylah Celis RN - 04/19/2024 7:57 AM EST Pt updated on plan of care and transport time. Pt states he had intentions of driving self to hospital and not being transferred by ambulance. Pt told that after narcotic medication pt will not be able to drive self. Pt expressing wants to go home before being admitted. Dr Robison made aware. * Tracy Ribeiro - 04/19/2024 7:56 AM EST [facility] will transfer the patient, eta 0845 * Tracy Ribeiro - 04/19/2024 7:46 AM EST [facility] calls and patient now has a room. Patients room number is 4032 and report can be called to [phone]. * Tracy Ribeiro - 04/19/2024 7:16 AM EST [facility] calls and patient has been accepted to [place]. There are no rooms available at this time. Patient was accpeted by Dr.Pratik Smith. * Kylah Celis RN - 04/19/2024 7:[address] Robison at bedside to update pt on plan of care * Maribel Good RN - 04/19/2024 6:49 AM EST [facility] called and transferred to at this time. * Maribel Good RN - 04/19/2024 6:40 AM EST Patient puts call light on and communicates to this nurse he cannot be admitted here as it is too far for his family but is willing to be transferred to [facility]. * David Robison DO - 04/19/2024 3:57 AM EST Emergency Department Report [facility] Service Date:.04/19/24 PCP: No primary care provider on file. Chief Complaint: Chief Complaint Patient presents with Nausea Abdominal Pain Patient reports left lower quadrant abdominal pain x 1.5hr that woke him from sleep. Pt states he took Pepto Bismol prior to arrival with no relief. Denies any urinary symptoms. SEGUN Younger is a 33 y.o. male presents to the ED today due to low abdominal pain for about an hour and a half. Patient states that the pain was so intense he woke up from his sleep. He states that he has had kidney stones in the past but this feels a little different. Patient states that every time he takes a deep breath he feels more intense pain and burning sensation. Patient also has been havingsome dry heaving. Denies any fevers or chills. Denies any UTI type symptoms. Denies any chest pain or shortness of breath. Denies any diarrhea. No hematuria. No flank pain. Review of Systems: Review of Systems Constitutional: Negative for fever. HENT: Negative for congestion. Eyes: Negative for visual disturbance. Respiratory: Negative for cough and shortness of breath. Cardiovascular: Negative for chest pain. Gastrointestinal: Positive for abdominal pain, nausea and vomiting. Negative for diarrhea. Endocrine: Negative for polyuria. Genitourinary: Negative for dysuria, flank pain, hematuria and urgency. Musculoskeletal: Negative for back pain. Skin: Negative for rash. Past Medical History: No past medical history on file. Past Surgical History: No past surgical history on file. Allergies: No Known Allergies Medications: Patient's Medications No medications on file Family History: History reviewed. No pertinent family history. Social History: Social History Socioeconomic History Marital status: Single Spouse name: Not on file Number of children: Not on file Years of education: Not on file Highest education level: Not on file Occupational History Not on file Tobacco Use Smoking status: Never Smokeless tobacco: Never Substance and Sexual Activity Alcohol use: Yes Comment: 2 beers nightly per patient Drug use: Never Sexual activity: Not on file Other Topics Concern Not on file Social History Narrative Not on file Social Determinants of Health Financial Resource Strain: Not on file Food Insecurity: Not on file Transportation Needs: Not on file Physical Activity: Not on file Stress: Not on file Social Connections: Not on file Intimate Partner Violence: Not on file Housing Stability: Not on file Physical Exam: Physical Exam Vitals and nursing note reviewed. Constitutional: Appearance: Normal appearance. He is normal weight. HENT: Head: Normocephalic and atraumatic. Nose: Nose normal. Eyes: General: Lids are normal. Vision grossly intact. Cardiovascular: Rate and Rhythm: Normal rate and regular rhythm. Heart sounds: Normal heart sounds. Pulmonary: Effort: Pulmonary effort is normal. Breath sounds: Normal breath sounds and air entry. No decreased breath sounds, wheezing, rhonchi orrales. Abdominal: General: Bowel sounds are normal. Palpations: Abdomen is soft. Tenderness: There is abdominal tenderness in the suprapubic area and left lower quadrant. There is no guarding or rebound. Negative signs include Ford's sign and McBurney's sign. Musculoskeletal: Cervical back: Full passive range of motion without pain and neck supple. Right lower leg: No edema. Left lower leg: No edema. Skin: General: Skin is warm. Capillary Refill: Capillary refill takes less than 2 seconds. Neurological: General: No focal deficit present. Mental Status: He is alert and oriented to person, place, and time. Mental status is at baseline. GCS: GCS eye subscore is 4. GCS verbal subscore is 5. GCS motor subscore is 6. Cranial Nerves: Cranial nerves 2-12 are intact. Sensory: Sensation is intact. Motor: Motor function is intact. Vital Signs During ED Visit Patient Vitals for the past 24 hrs: BP Temp Temp src Pulse Resp SpO2 Height Weight 04/19/24 0353 -- -- -- -- -- -- 1.778 m (5' 10) 77.1 kg (170 lb) 04/19/24 0351 159/77 98.1 F (36.7 C) Oral 101 24 92 % -- -- Orders/Results: Orders Placed This Encounter CT ABDOMEN/PELVIS WITH CONTRAST CHEM 7 (LYTES,BUN,CREA,GLUC) HEPATIC FUNCTION PANEL LIPASE CBC, EDIF, PLATELET Ondansetron 4mg/2ml (ZOFRAN) injection 4 mg Ondansetron 4mg/2ml (ZOFRAN) injection Ketorolac (TORADOL) injection 30 mg URINALYSIS, MACRO URINE MICROSCOPIC No results found for this or any previous visit. EKG: Radiographic Imaging CT ABDOMEN/PELVIS WITH CONTRAST (Results Pending) Procedures: Procedures Moderate Sedation Procedure: No ED Summary/MDM Patient came in with significant abdominal pain and nausea and vomiting. Patient did not have any peritoneal signs. Patient's lipase was significantly elevated at 4900. CT scan does confirm that patient has pancreatitis. I do feel this is alcohol related pancreatitis. Patient initially agreed to beadmitted here at [facility] but after talking to his family he wants to be transferred to [place]. I did talk to [facility] transfer calera for [place] and awaiting for bed at this time. I didendorse case to oncoming physician for follow up of patient's transfer. UPDATE: Clinical Impression: No diagnosis found. No follow-ups on file. New Prescriptions No medications on file Discontinued Medications No medications on file An After Visit Summary was printed and given to the patient with above information. . Documentation of this medical record was completed via electronic dictation system which may contain typographical, mispronunciation, and grammatical errors. PLEASE EXCUSE SUCH ERRORS IF WAS NOT NOTED OR CORRECTED . David Robison DO 04/19/24 0644 * Maribel Good RN - 04/19/2024 3:49 AM EST Lab at bedside. [facility] Emergency department Note* Dariusz Ramirez DO - 04/19/2024 8:25 AM EST Emergency Department Report [facility] EMERGENCY MEDICINE Service Date:.04/19/24 PCP: No primary care provider on file. Chief Complaint: Chief Complaint Patient presents with Nausea Abdominal Pain Patient reports left lower quadrant abdominal pain x 1.5hr that woke him from sleep. Pt states he took Pepto Bismol prior to arrival with no relief. Denies any urinary symptoms. 0815 Dr Robison has seen, evaluated this patient, inpatient was transferred to [facility] for admission. Patient did not want to take an ambulance, patient wanted family to drive him to [place]. Dr. Robison stated that patient could not drive to [facility] because he was given Dilaudid in the ER for pain. Dr. Robison has sign patient is out against medical advice, patient waspicked up by another individual and driven to [facility]. Patient did have a bed number there. Security Jaeger saw patient get into another car with another individual who was driving, not this patient and patient was driven to [facility]. I do not see or interact with this patient at all. Patient was signed out against medical advice by Dr. Robison. Please refer to Dr Robison documentation. Patient left against medical advice. It was determined by Dr. Saleh the patient has a functionalmaking decision capacity to leave his signed out against medical advice. Dariusz Ramirez DO 04/19/24 0837 [facility] Work Phone: [phone] 424-274711-03-2024 Emergency department Note* Kylah Cleis RN - 04/19/2024 8:23 AM EST Dacia at [facility] made aware that pt signed out AMA [facility]11-03-2024 Emergency department Note* Kylah Celis RN - 04/19/2024 8:16 AM EST Report called to [place] Os[place] at [facility] made aware that pt signed out AMA at our facility, denies questions [facility]11-03-2024 Emergency department Note* Tracy Ribeiro - 04/19/2024 8:14 AM EST Sujey Rosen aware that patient signed out AMA and we no longer need transport [facility]11-03-2024 Emergency department Note* Kylah Celis RN - 04/19/2024 8:10 AM EST Pt ambulatory out of ED, pt provided with room number at [facility]11-03-2024 Emergency department Note* Tracy Ribeiro - 04/19/2024 8:06 AM EST Patient signs appropriate AMA papers at this time. Patient is aware he is unable to drive due to just being given narcotics. Patient verbalized understanding. [facility]11-03-2024 Emergency department Note* Kylah Celis RN - 04/19/2024 7:57 AM EST Pt updated on plan of care and transport time. Pt states he had intentions of driving self to hospital and not being transferred by ambulance. Pt told that after narcotic medication pt will not be able to drive self. Pt expressing wants to go home before being admitted. Dr Robison made aware. [facility]11-03-2024 Emergency department Note* Tracy Ribeiro - 04/19/2024 7:56 AM EST [facility] will transfer the patient, eta 0845 [facility]11-03-2024 Emergency department Note* Tracy Ribeiro - 04/19/2024 7:46 AM EST [facility] calls and patient now has a room. Patients room number is 4032 and report can be called to [phone]. [facility]11-03-[facility] Emergency department Note* Tracy Ribeiro - 04/19/2024 7:16 AM EST [facility] calls and patient has been accepted to [place]. There are no rooms available at this time. Patient was accpeted by Dr.Pratik Smith. [facility]11-03-2024 Emergency department Note* Kylah Celis RN - 04/19/2024 7:[address] Robison at bedside to update pt on plan of care [facility]11-03-2024 Emergency department Note* Maribel Good RN - 04/19/2024 6:49 AM EST [facility] called and transferred to at this time. [facility]-03[facility] Emergency department Note* Maribel Good RN - 04/19/2024 6:40 AM EST Patient puts call light on and communicates to this nurse he cannot be admitted here as it is too far for his family but is willing to be transferred to [facility]. [facility]11-03-2024 Physician Emergency department Note* David Robison DO - 04/19/2024 3:57 AM EST Emergency Department Report [facility] EMERGENCY MEDIC[facility] Service Date:.04/19/24 PCP: No primary care provider on file. Chief Complaint: Chief Complaint Patient presents with Nausea Abdominal Pain Patient reports left lower quadrant abdominal pain x 1.5hr that woke him from sleep. Pt states he took Pepto Bismol prior to arrival with no relief. Denies any urinary symptoms. HPI Yu Younger is a 33 y.o. male presents to the ED today due to low abdominal pain for about an hour and a half. Patient states that the pain was so intense he woke up from his sleep. He states that he has had kidney stones in the past but this feels a little different. Patient states that every time he takes a deep breath he feels more intense pain and burning sensation. Patient also has been havingsome dry heaving. Denies any fevers or chills. Denies any UTI type symptoms. Denies any chest pain or shortness of breath. Denies any diarrhea. No hematuria. No flank pain. Review of Systems: Review of Systems Constitutional: Negative for fever. HENT: Negative for congestion. Eyes: Negative for visual disturbance. Respiratory: Negative for cough and shortness of breath. Cardiovascular: Negative for chest pain. Gastrointestinal: Positive for abdominal pain, nausea and vomiting. Negative for diarrhea. Endocrine: Negative for polyuria. Genitourinary: Negative for dysuria, flank pain, hematuria and urgency. Musculoskeletal: Negative for back pain. Skin: Negative for rash. Past Medical History: No past medical history on file. Past Surgical History: No past surgical history on file. Allergies: No Known Allergies Medications: Patient's Medications No medications on file Family History: History reviewed. No pertinent family history. Social History: Social History Socioeconomic History Marital status: Single Spouse name: Not on file Number of children: Not on file Years of education: Not on file Highest education level: Not on file Occupational History Not on file Tobacco Use Smoking status: Never Smokeless tobacco: Never Substance and Sexual Activity Alcohol use: Yes Comment: 2 beers nightly per patient Drug use: Never Sexual activity: Not on file Other Topics Concern Not on file Social History Narrative Not on file Social Determinants of Health Financial Resource Strain: Not on file Food Insecurity: Not on file Transportation Needs: Not on file Physical Activity: Not on file Stress: Not on file Social Connections: Not on file Intimate Partner Violence: Not on file Housing Stability: Not on file Physical Exam: Physical Exam Vitals and nursing note reviewed. Constitutional: Appearance: Normal appearance. He is normal weight. HENT: Head: Normocephalic and atraumatic. Nose: Nose normal. Eyes: General: Lids are normal. Vision grossly intact. Cardiovascular: Rate and Rhythm: Normal rate and regular rhythm. Heart sounds: Normal heart sounds. Pulmonary: Effort: Pulmonary effort is normal. Breath sounds: Normal breath sounds and air entry. No decreased breath sounds, wheezing, rhonchi orrales. Abdominal: General: Bowel sounds are normal. Palpations: Abdomen is soft. Tenderness: There is abdominal tenderness in the suprapubic area and left lower quadrant. There is no guarding or rebound. Negative signs include Ford's sign and McBurney's sign. Musculoskeletal: Cervical back: Full passive range of motion without pain and neck supple. Right lower leg: No edema. Left lower leg: No edema. Skin: General: Skin is warm. Capillary Refill: Capillary refill takes less than 2 seconds. Neurological: General: No focal deficit present. Mental Status: He is alert and oriented to person, place, and time. Mental status is at baseline. GCS: GCS eye subscore is 4. GCS verbal subscore is 5. GCS motor subscore is 6. Cranial Nerves: Cranial nerves 2-12 are intact. Sensory: Sensation is intact. Motor: Motor function is intact. Vital Signs During ED Visit Patient Vitals for the past 24 hrs: BP Temp Temp src Pulse Resp SpO2 Height Weight 04/19/24 0353 -- -- -- -- -- -- 1.778 m (5' 10) 77.1 kg (170 lb) 04/19/24 0351 159/77 98.1 F (36.7 C) Oral 101 24 92 % -- -- Orders/Results: Orders Placed This Encounter CT ABDOMEN/PELVIS WITH CONTRAST CHEM 7 (LYTES,BUN,CREA,GLUC) HEPATIC FUNCTION PANEL LIPASE CBC, EDIF, PLATELET Ondansetron 4mg/2ml (ZOFRAN) injection 4 mg Ondansetron 4mg/2ml (ZOFRAN) injection Ketorolac (TORADOL) injection 30 mg URINALYSIS, MACRO URINE MICROSCOPIC No results found for this or any previous visit. EKG: Radiographic Imaging CT ABDOMEN/PELVIS WITH CONTRAST (Results Pending) Procedures: Procedures Moderate Sedation Procedure: No ED Summary/MDM Patient came in with significant abdominal pain and nausea and vomiting. Patient did not have any peritoneal signs. Patient's lipase was significantly elevated at 4900. CT scan does confirm that patient has pancreatitis. I do feel this is alcohol related pancreatitis. Patient initially agreed to beadmitted here at a [facility] but after talking to his family he wants to be transferred to [place]. I did talk to [facility] transfer center for [place] and awaiting for bed at this time. I didendorse case to oncoming physician for follow up of patient's transfer. UPDATE: Clinical Impression: No diagnosis found. No follow-ups on file. New Prescriptions No medications on file Discontinued Medications No medications on file An After Visit Summary was printed and given to the patient with above information. . Documentation of this medical record was completed via electronic dictation system which may contain typographical, mispronunciation, and grammatical errors. PLEASE EXCUSE SUCH ERRORS IF WAS NOT NOTED OR CORRECTED . David Robison DO 04/19/24 0644 [facility]11-03-2024 Emergency department Note* Maribel Good RN - 04/19/2024 3:49 AM EST Lab at bedside. [facility] Author Phoenix Irvin [facility] Note Date/Time February 19, 2025 1:48pm [facility] Medical Records Department [address] [place] [address] Discharge Summary 02/19/25 1346 MR#: [id number] Acct: [id number] Name: BESSY,YU Calles Rep #:[id number] : 1990 34 From: Phoenix Irvin MD PCP: Care Physician,No Primary Status :ADM IN Location: [facility] [place] [id number] Providers Date of Admission: 02/17/25 Date of Discharge: 02/19/25 Primary Care Physician: No Primary Care Phys Reason For Visit: OPIATE,ETOH DETOXIFICATION Diagnosis Discharge Diagnosis (1) Admitted to alcohol detoxification center: Status: Acute Plan Patient is a 34-year-old gentleman with history of polysubstance dependence admitted with acute alcohol and opioid withdrawal 1. Alcohol intoxication at significant risk for -. Patient EtOH alcohol level on admission was 239. Patient has been admitted for treatment with phenobarb taper in addition to adjuvant medications includinggabapentin, Bentyl, hydroxyzine and clonidine as needed for alcohol withdrawal symptoms. Patient was also placed on thiamine and folic ; consultation placed to 180 counseling services ? 02/19/2025; patient remains significantly symptomatic we will continue with current treatment regimen ? Patient elected to sign out AGAINST MEDICAL ADVICE attempt made for patient niccid his decision proved Futile. He was instructed to come back to the emergency department if he changed his 2. Acute opioid withdrawal - Patient has been admitted to regular nursing floor, managed buprenorphine taper along with other adjunctive medications for medical stabilization 3. Polysubstance dependence ? Patient presented with both alcohol and opioid withdrawal 4. Tobacco dependence ? Counseled on cessation, offered nicotine patch for tobacco cravings 5. DVT prophylaxis ? Low risk encourage ambulation Time spent in the patient's overall evaluation,decision-making process, review of diagnostic data, adjustment of management, discussion with other providers, nursing nursing and ancillary staff involved in patient's care documentation, 35minutes Medications at Discharge Home Medications methadone 10 mg tablet 100 mg PO DAILY 05/22/24 Physical Exam Narrative GENERAL: Patient in no apparent distress HEENT: Atraumatic; normocephalic EYES; Anicteric, Normal Conjunctiva NECK; supple, normal thyroid, RESPIRATORY: Diminished to auscultation CARDIOVASCULAR: Regular S1 S2, GI: soft, normoactive bowel sounds, : No Renal angle tenderness; EXTREMITIES: No edema, no clubbing, MUSCULOSKELETAL: no muscle wasting NEURO: Awake; no lateralizing signs. SKIN: No Rash PSYCH; Flat affect Weight / BMI Weight Weight: 62 kg Body Mass Index (BMI) 20.2 ABG / Lab / Microbiology Data 02/17/25 21:00 02/17/25 21:00 D/C Instructions Discharge Activity: Return to Normal Activity Call your doctor if you observe: Fever of 101 or Higher, Shortness of breath, Fainting spells and Chest pain DC O2, CPAP, BIPAP Needs Home O2 Discharge instructions: No Meaningful Use Info Meaningful Use Meaningful Use Diagnoses (Choose all that apply): None applicable Discharge Plan Admission Admit Date/Time: 02/17/25 21:24 Attending Provider: Phoenix Irvin Primary Care Provider: Care Physician,No Primary Consulting Providers: Sujey Stacy Discharge Orders/Prescriptions Prescriptions: No Action methadone 10 mg tablet 100 mg PO DAILY Patient Comments: pt gets dose daily from clinic. has saturday's dose with him Referrals / Follow Up: Care Physician,No Primary [Primary Care Provider] - Disposition Disposition (needs filled in before D/C Order can be placed): Against Medical Advice Charges/Coding Visit Charges Inpatient E&M: 42668 Disch Hosp >30min 02/19/25 1348 <Electronically signed by Phoenix Irvin MD> Cosigner Signature (if applicable): CC: Dr. Phoenix Irvin MD; No Primary Care Physician~ Signed [facility] Work Phone: Evaluation note* Diagnosis Acute pancreatitis- Primary Alcohol-induced acute pancreatitis without infection or necrosis documented in this encounter [facility] Diagnosis Alcohol-induced acute pancreatitis, unspecified complication status- Primary Alcohol-induced acute pancreatitis, unspecified complication status Alcohol withdrawal syndrome without complication (HCC) [facility] Diagnosis Onset Date Resolution Status Admit Date Admitted to alcohol detoxification center acute February 17, 2025 9:24pm [facility] Work Phone: History and physical note Author Sujey Stacy [facility] Note Date/Time February 17, 2025 10:19pm [facility] Medical Records Department [address] [place] [address] H&P Exam - Hospitalist 02/17/252123 MR#: [id number] Acct: [id number] Name: YU YOUNGER Rep #:[id number] : 1990 34 From: Sujey Stacy MD PCP: Care Physician,No Primary Status :ADM IN Location: [facility] [place] [id number] HPI - General General Date of Admission: 02/17/25 Date of Service: 02/17/25 Chief Complaint: Heroin/EtOH detoxification HPI Narrative The patient is a 34 y/o M w/ PMHx: Polysubstance abuse (EtOH 1 pint Francine daily, last use 2 to 3 hours prior to ED arrival, Opiates heroin/fentanyl 1 to 2g daily, used via snorting, last use similarly 2 to 3 hours prior to ED arrival), Tobacco use who presents to the [facility] ED on 02/17/2025 with ongoing substance abuse, both EtOH and opiates with requested detoxification from both alcohol and opiate use with onset now with mild withdrawal symptoms starting over the last possibly 30 minutes with mild fatigue, yawning, nausea, restlessness, body aches and diaphoresis. Patient is present in different room from his spouse who is also a substance user and patient does report that they use together occasionally. Workup in the ED included T98.4, heart rate 119, BP 157/106, respiratory rate 16, 100% on room air, CBC with WC 7.0, Hgb 13.2, platelet 239 without marked shift, BMP with glucose 128 otherwise unremarkable, ethyl alcohol 239. In the ED given concern for onset of withdrawal symptoms patient was initiated on Ativan 2 mg IV x 1, phenobarbital 97.2 mg p.o. x 1. [facility] Medical History (Updated 02/17/25 @ 22:[address] Sujey Stacy MD) Tobacco use Alcohol abuse Alcoholic pancreatitis Substance abuse Hx of renal calculi Home Medications ?Medication ?Instructions ?Recorded ?Last Taken ?Type methadone 10 mg tablet 100 mg PO DAILY 05/22/2410/09 History Allergy/AdvReac Type Severity Reaction Status Date / Time levetiracetam (From [facility]) Allergy HIVES Verified 02/17/25 19:44 Family History (Updated 02/17/25 @ 22:[address] Sujey Stacy MD) Mother Hypertension Polysubstance abuse Father Hypertension Polysubstance abuse Alcohol abuse Other Cancer Surgical History Hx of tonsillectomy Social History (Updated 02/17/25 @ 22:[address] Sujey Stacy MD) household members: spouse Smoking Status: Current every day smoker tobacco type: e-cigarettes Electronic Cigarette Use: with nicotine alcohol intake: current alcohol intake frequency: 3 or more drinks per day Alcohol type: hard liquor details: Approximately 1 pint Francine daily substance use type: heroin, opiates and other details: Heroin/fentanyl 1 to 2 gdaily snorted ROS ROS Narrative Admission Review of Systems: CONSTITUTIONAL: No weight loss, fever, chills, + weakness or fatigue. HEENT: + Rhinorrhea, congestion, frequent yawning during evaluation. Eyes: No visual loss, blurred vision, double vision or yellow sclerae. Ears, Nose, Throat: No hearing loss, sneezing, sore throat. SKIN: No rash or itching, lesions, wounds except occasional stage ecchymoses, abrasions, frequent cutting scars to the left forearm with patient noting he is right-handed. CARDIOVASCULAR: No chest pain, chest pressure or chest discomfort, palpitations,edema, orthopnea, syncopal events. RESPIRATORY: No shortness of breath, cough or sputum, wheezing, hemoptysis. GASTROINTESTINAL: + anorexia, mild nausea. No vomiting or diarrhea, abdominal pain, melena, BRBPR. GENITOURINARY: No dysuria, frequency, urgency or retention. NEUROLOGICAL: + Mild tremors, mild tactile disturbances, restlessness, very fatigued. No headache, dizziness, syncope, paralysis, ataxia, numbness or tingling in the extremities, focal weakness, change in bowel or bladder control,seizure. MUSCULOSKELETAL: + muscle, back pain, joint pain or stiffness. HEMATOLOGIC: No anemia, bleeding or bruising. LYMPHATICS: No enlarged nodes. No history of splenectomy. PSYCHIATRIC: No reported history of anxiety or depression. ENDOCRINOLOGIC: + Reports of sweating. No cold or heat intolerance. No polyuriaor polydipsia. ALLERGIES: + History of hives. Vital Signs Vital Signs Vital Signs: 02/17/25 19:43 02/17/25 21:11 Temperature 98.4 F Temperature Source Oral Pulse Rate 119 H 100 Respiratory Rate 16 16 Blood Pressure 157/106 H 142/97 H Blood Pressure Mean 123 112 Pulse Ox 100 99 Oxygen Delivery Method Room Air Weight Weight: 139 lb 2 oz Body Mass Index (BMI) 21.1 Physical Exam Narrative Physical Examination: General: Awake, alert, oriented x 3 and cooperative, seated upright in the ED bed, fatigued, yawning frequently, very fatigued, restless. Skin: Normal color, normal turgor, no icterus, no cyanosis except occasional stage ecchymoses, abrasions, left forearm with old cutting scars noting that he is right-handed of note. HEENT: AT/NC, EOMI, PERRLA, moderately dry MM, no carotid bruits or JVD noted. Lungs: CTA bilaterally, moderate effort, mild decrease BL bases, no rales, ronchi or wheezing. Heart: Regular rate and rhythm; no gallop, rub audible. Abdomen: Soft, mild generalized discomfort but no rebound or guarding, ND, hyperactive BS, no appreciated HSM. Extremities: No cyanosis, no clubbing, no significant distal edema, see skin. Neurological: Patient awake, alert, oriented as noted, cognitive function intactalthough very fatigued and yawning frequently; pupils equally reactive to light and accommodation, cranial nerves grossly normal, moving all 4 extremities, no focal deficits, strength moderately globally decreased secondary to acute presentation, mildly tremulous, mild tactile disturbances reported, restless. Psychiatric: Affect appears fatigued, restless, no evidence of any anxiety or depressive feelings. Results Lab / Micro Data 02/17/25 21:00 02/17/25 21:00 Labs: Laboratory Results - last 24 hr 02/17/25 21:00: WBC 7.0, RBC 4.43 L, Hgb 13.2, Hct 38.2 L, MCV 86.2, MCH 29.8, MCHC 34.6, RDW Std Deviation 41.9, RDW Coeff of Ida 13.4, Plt Count 239, MPV 9.6, Immature Gran % (Auto) 0.100, Neut % (Auto) 67.8, Lymph % (Auto) 24.4, [place]% (Auto) 7.4, Eos % (Auto) 0.0, Baso % (Auto) 0.3, Absolute Neuts (auto) 4.8, Absolute Lymphs (auto) 1.72, Nucleated RBC % 0 Assessment & Plan Assessment/Plan (1) Admitted to alcohol detoxification center: PLAN: Plan The patient is a 34 y/o M w/ PMHx: Polysubstance abuse (EtOH 1 pint Francine daily, last use 2 to 3 hours prior to ED arrival, Opiates heroin/fentanyl 1 to 2g daily, used via snorting, last use similarly 2 to 3 hours prior to ED arrival), Tobacco use who presents to the [facility] ED on 02/17/2025 with ongoing substance abuse, both EtOH and opiates with requested detoxification from both alcohol and opiate use with onset now with mild withdrawal symptoms. #1. Acute EtOH Withdrawal: Will admit to medical surgical floor, routine labs obtained in the ED upon presentation as noted. Will also request hepatic profile. Given interest in sobriety, will initiate and continue on protocol with taper course of Phenobarbital, scheduled gabapentin for seizure prophylaxis, as needed Catapres, Bentyl, Vistaril, IV fluids, IV antiemetics, Tylenol as needed for pain. Will consult Case management for assistance for transition to next level of rehabilitation care. Mag, phos pending. Maintain on CIWA protocol concurrently. #2. Acute Opiate Withdrawal: Given patient concurrent usage of several opiates,will additionally initiate and continue on protocol with tapering course of Subutex, as needed tylenol, ibuprofen, bowel regimen, gabapentin, Bentyl, Vistaril, methocarbamol, clonidine, PRN nightly trazodone for insomnia, IV fluids, IV antiemetics. Once patient clinically improved and completion of tapernearing will plan consultation with case management for transition to next levelof rehabilitation care. #3. Polysubstance Abuse, Chronic: Will obtain HIV, syphilis and hepatitis panelgiven significant polysubstance use although does deny IV substance use. #4. Tobacco use: Encourage tobacco cessation, RT consulted for education, NR ordered. #5. DVT Prophylaxis: Low risk, encourage ambulation. Charges/Coding Visit Charges Inpatient E&M: 12117 Init Hosp L3 02/17/259 <Electronically signed by Sujey Stacy MD> Cosigner Signature (if applicable): CC: Dr. Sujey Stacy MD; No Primary Care Physician~ Signed [facility] Work Phone: Reason for referral (narrative)* Unlisted Procedure Code (Routine) - New Request Specialty Diagnoses / Procedures Referred By Contac t Referred To Contact Procedures INPATIENT ADMISSION NOTIFICATION Juma Rodriguez MD [address] [place] [address] Referral ID Status Reason Start Date Expiration Date V isits Requested Visits Authorized [id number] New Request 04/19/2024 05/14/2025 1 [facility]No reason for referral information availableWHolzer [facility] Work Phone: Summary Purpose Family History No Family History Records Found Relationship Condition Age at Onset Recorded Date/T tomás Not Specified Malignant neoplasm Unknown mother Hypertension Unknown Polysubstance abuse Unknown father Hypertension Unknown Alcohol abuse Unknown Advance Directives No Advanced Directives Records FoundDocuments on File Type Date Recorded 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 No February 17, 2025 9:11pm Advance Directive Response Recorded Date/ Time Do you have a Healthcare Power of Prize Jacker? No February 17, 2025 10:55pm Reason for Referral Status Reason Specialty Diagnoses / Procedures Referred By Contact Referred To Contact New Request Neurology Diagnoses Seizure Telly Lewis MD [address] [place] [address] Bhavesh Collier MD [address] [place] [address] Assessments Diagnosis Seizure- Primary Other convulsions Diagnosis Accidental drug overdose, initial encounter- Primary Discharge Instructions * Attachments The following attachments cannot be sent through Care Everywhere. * Alcohol - Drug - or Poison Ingestion (Eritrean) documented in this encounter Chief Complaint and Reason for Visit Chief Complaint Admit Date OPIATE,ETOH DETOXIFICATION February 9:24pm Reason for Visit Admit Date Admitted to alcohol detoxification [facility] February 17, 2025 9:24pm Chief Complaint Admit Date OPIATE,ETOH DETOXIFICATION February 9:24pm OPIATE,ETOH DETOXIFICATION February 6:55am OPIATE,ETOH DETOXIFICATION February 7:37am Additional Source Comments (unrecognized sect ion and content) No Status Records FoundNo Status Records FoundNo Status Records FoundNo Status Records FoundNo Status Records FoundNo Status Records FoundNo Status Records FoundNo Status Records FoundNo Status Records Found INFORMATION SOURCE (unrecogn ized section and content) DATE CREATED AUTHOR 12/06/2017 [facility] DATE CREATED AUTHOR AUTHOR'S ORGANIZ ATION 12/15/2017 [facility] DATE CREATED AUTHOR AUTHOR'S ORGANIZ ATION 01/04/2018 [facility] DATE CREATED AUTHOR AUTHOR'S ORGANIZ ATION 08/06/2018 [facility] DATE CREATED AUTHOR AUTHOR'S ORGANIZ ATION 08/09/2020 [facility] DATE CREATED AUTHOR AUTHOR'S ORGANIZ ATION 12/29/2020 [facility] ([place]) DATE CREATED AUTHOR AUTHOR'S ORGANIZ ATION 04/24/2024 [facility] DATE CREATED AUTHOR AUTHOR'S ORGANIZ ATION 04/24/2024 [facility] DATE CREATED AUTHOR AUTHOR'S ORGANIZ ATION 02/27/2025 [facility] Reason for Visit (unrecogniz ed section and content) Reason Comments Drug Overdose Reason Comments Nausea Abdominal Pain Patient reports left lower quadrant abdominal pain x 1.5hr that woke him from sleep. Pt states he took Pepto Bismol prior to arrival with no relief. Denies any urinary symptoms. Specialty Diagnoses / Procedures Referred By Contac t Referred To Contact Diagnoses Acute pancreatitis [facility] Referral ID Status Reason Start Date Expiration Date Visits Re quested Visits Authorized [id number] Reason Comments Abdominal Pain Specialty Diagnoses / Procedures Referred By Contac t Referred To Contact Diagnoses Alcohol withdrawal syndrome without complication (HCC) Alcohol-induced acute pancreatitis, unspecified complication status Referral ID Status Reason Start Date Expiration Date Visits Re quested Visits Authorized [id number] 1 1 Zach Swain RN - 12/04/2018 3:14 AM Zach Anderson RN - 12/04/2018 3:04 AM Zach Anderson RN - 12/04/2018 3:04 AM Zach Anderson RN - 12/04/2018 2:49 AM EDT ED Notes (unrecognized secti on and content) Pt departed ED AMA. Pt advised as to nature of narcan and need for further evaluation. Pt departed unit alert and oriented and ambulated on own to depart ED. AMA form signed and placed in record. Pt resting on cart. Pt actively talking to family on phone. Patient is resting comfortably. Call light within reach. Patient updated on continued plan of care. Pt found at friends house unresponsive. Upon ems arrival squad gave 6mg narcan and started rescue breathing. Pt began to breath on own and become alert enroute to ER. Pt arrives to ED, alert, breathing on own, and oriented to time and situation. Associated Order(s): ECG 12- Lead ED PROVIDER NOTE [facility] EM[facility] NAME: Yu Younger AGE: 28 y.o. : 1990 VISIT DATE: 12/04/2018 CSN: [id number] PCP: Telly Lewis MD Chief Complaint Patient presents with Drug Overdose 28 year-old male brought in as a drug overdose after receiving 6 mg of Narcan by EMS he is awake and talking Drug Overdose Ingested substance: Illicit drugs Illicit drug type: Opiates Incident location: Unable to specify Context: intentional ingestion Past Medical History: Diagnosis Date Seizures (HCC) No past surgical history on file. No family history on file. Social History Socioeconomic History Marital status: Single Spouse name: Not on file Number of children: Not on file Years of education: Not on file Highest education level: Not on file Occupational History Not on file Social Needs Financial resource strain: Not on file Food insecurity: Worry: Not on file Inability: Not on file Transportation needs: Medical: Not on file Non-medical: Not on file Tobacco Use Smoking status: Current Some Day Smoker Types: Cigarettes Smokeless tobacco: Never Used Substance and Sexual Activity Alcohol use: No Drug use: No Sexual activity: Not on file Lifestyle Physical activity: Days per week: Not on file Minutes per session: Not on file Stress: Not on file Relationships Social connections: Talks on phone: Not on file Gets together: Not on file Attends uatsdin service: Not on file Active member of club or organization: Not on file Attends meetings of clubs or organizations: Not on file Relationship status: Not on file Other Topics Concern Not on file Social History Narrative Not on file Previous Medications Medication Sig gabapentin (NEURONTIN) 300 MG capsule Take 1 (one) capsule (300 mg total) by mouth every 8 (eight) hours (Days supply per fill: 30 day supply . lisinopril (PRINIVIL,ZESTRIL) 5 MG tablet Take 1 (one) tablet (5 mg total) by mouth daily . Allergies Allergen Reactions Keppra [Levetiracetam] Review of Systems Psychiatric/Behavioral: Drug overdose All other systems reviewed and are negative. No data found. Physical Exam Constitutional: He appears well-developed and well-nourished. HENT: Head: Normocephalic and atraumatic. Eyes: EOM are normal. Pupils are equal, round, and reactive to light. Neck: Normal range of motion. Neck supple. Cardiovascular: Normal rate and regular rhythm. Pulmonary/Chest: Effort normal and breath sounds normal. Abdominal: Soft. Genitourinary: Genitourinary Comments: No CVA tenderness Neurological: Radha Coma Scale 15 NIHSS 0 Skin: Skin is warm. Capillary refill takes less than 2 seconds. Psychiatric: He has a normal mood and affect. His behavior is normal. Nursing note and vitals reviewed. Laboratory & Radiographic Imaging (if done): No results found for this visit on 12/04/18. No orders to display ECG 12- Lead Date/Time: 12/04/2018 3:13 AM Performed by: Caleb Starr DO Authorized by: Caleb Starr DO Interpreted by ED physician: Normal sinus rhythm rate of [address] segment changes normal P wave and QRS axis. BPM: 89 MDM . Clinical Impression: No diagnosis found. ED Disposition None Follow-up Information Follow-up information has not been specified. Contact information for after-discharge care Follow-up information has not been specified. Caleb Starr DO 12/04/18 0309 Caleb Starr DO 12/04/18 0309 Caleb Starr DO 12/04/18 0314 Bed: 07 Expected date: 12/04/18 Expected time: 2:42 AM Means of arrival: Ambulance Comments: documented in this encounter Scheduled Active and Recently Administ ered Medications (unrecognized section and content) Medication Order 04/17/2024 04/18/2024 04/19/2024 HYDROmorphone (DILAUDID) injection 0.5 mg (COMPLETED) 0.5 mg, Intravenous, ONCE, 1 dose, On 04/19/24 at 0800 0740 (Given - Provid er: Kylah Celis RN) iohexol (OMNIPAQUE) 350 MG/ML injection 75 mL (COMPLETED) 75 mL, Intravenous, ONCE, 1 dose, On 04/19/24 at 0530, Extravasation Risk, Radiology Procedure 0446 (Given - Radiol ogy - Provider: Jody Rizo) Ketorolac (TORADOL) injection 30 mg (COMPLETED) 30 mg, Intravenous, ONCE, 1 dose, On 04/19/24 at 0430 0430 (Given - Provid er: Maribel Good RN) Ondansetron 4mg/2ml (ZOFRAN) injection 4 mg (COMPLETED) 4 mg, Intravenous, ONCE, 1 dose, On 04/19/24 at 0415 0430 (Given - Provid er: Maribel Good RN) Ondansetron 4mg/2ml (ZOFRAN) injection 4 mg (COMPLETED) 4 mg, Intravenous, ONCE, 1 dose, On 04/19/24 at 0800 0740 (Given - Provid er: Kylah Celis RN) Sodium chloride 0.9% IV solution 1,000 mL (COMPLETED) 1,000 mL, Intravenous, ONCE, 1 dose, On 04/19/24 at 0700 0630 ($$New Bag$$ - Provider: Nayeli Gonzales RN)0812 (Stopped - Provider: Kylah Celis RN) Sodium chloride 0.9% IV solution 75 mL (COMPLETED) 75 mL, Intravenous, ONCE, 1 dose, On 04/19/24 at 0530, Radiology Procedure 0446 ($$New Bag$$ - Provider: Jody Rizo)0720 (Stopped - Provider: Kylah Celis RN) Continuous Medication Order 04/17/2024 04/18/2024 04/19/2024 Sodium chloride 0.9% IV solution Intravenous, at 125 mL/hr, CONTINUOUS, Starting on 04/19/24 at 0645, Until 04/19/24 at 1034 0645 (Canceled Entry - Provider: System Discharge - Comment: Automatically canceled at discontinue of medication order) Scheduled Medication Order 04/21/2024 04/22/2024 04/23/2024 heparin (porcine) injection 5,000 Units 5,000 Units, Subcutaneous, Every 8 hours scheduled, First dose on Sat04/19/24 at 1730, Notify physician if patient refuses. 0544 (Given - Provider: Jett Dhaliwal, RN)1325 (Given - Provider: Drea Mayfield, RN)2106 (Given - Provider: Jett Dhaliwal, RN) 0630 (Given - Provider: Jett Dhaliwal, RN)1502 (Given - Provider: Marielle Anne, RN)2123 (Given - Provider: Sakshi Joshi, RN) 0426 (Given - Provider: Sakshi Joshi, RN)0600 (Canceled Entry - Provider: Sakshi Joshi RN)1400 (Not Given - Provider: Che Manriquez, RN - Reason: Patient/family refused) HYDROmorphone (DILAUDID) injection 1 mg (COMPLETED) 1 mg, Intravenous, Once, On Sat04/21/24 at 1200, For 1 dose 1110 (Given - Provider: Rina Hernandez, RONNY) methadone (DOLOPHINE) 10 mg/ml solution(Oral Syringe) 5 mg 5 mg, Oral, Every 12 hours scheduled, First dose on Sat04/22/24 at 0945, Notify prescribing physician and hold methadone if Respiratory Rate less than 10, if POSS Sedation score of 3 or 4, or RASS of -3, -4 or -5 (non-ventilated patients). May cause QT interval prolongation. Verify patient has received Patient Med Guide for methadone., Indication for methadone: Treatment of opioid dependence, Is this a continuation of home therapy? Yes 1004 (Given - Provider: Marielle Anne, RONNY)2122 (Given - Provider: Sakshi Joshi, RONNY) 0912 (Given - Provider: Che Manriquez, RN) metoclopramide (REGLAN) injection 5 mg (COMPLETED) 5 mg, Intravenous, Once, On Sat04/21/24 at 1245, For 1 dose 1200 (Given - Provider: Drea Mayfield, RONNY) nicotine (NICODERM CQ) 21 mg/24 hr 1 patch 1 patch, Transdermal, Administer over 24 Hours, Daily, First dose on Sat04/20/24 at 1130, U/P Listed Hazardous Drug. Waste Must Be Disposed in [employer] Waste Container 0906 (Patch Removed - Provider: Drea Mayfield RN)0907 (Patch Applied - Provider: Drea Mayfield RN) 0815 (Patch Applied - Provider: Marielle Anne RN) 0815 (Not Given - Provider: Che Manriquez RN - Reason: Other - Comment: no patch to remove.)0900 (Not Given - Provider: Che Manriquez RN - Reason: Patient/family refused) PHENobarbitaL tablet 32.4 mg (COMPLETED)(Linked Group 1) 32.4 mg, Oral, Every 12 hours, First dose on Sat04/21/24 at 0905, For 2 doses 905 (Given - Provider: Drea Mayfield RN)2105 (Given - Provider: Jett Dhaliwal RN) PHENobarbitaL tablet 32.4 mg (COMPLETED)(Linked Group 1) 32.4 mg, Oral, Every 24 hours, First dose on Sat04/22/24 at 2105, For 1 dose 2122 (Given - Provider: Saskhi Joshi RN) potassium chloride SA (K-DUR,KLOR-CON) CR tablet 40 mEq (COMPLETED) 40 mEq, Oral, Once, On Sat04/22/24 at 0715, For 1 dose, DO NOT CRUSH OR CHEW (if instructed may dissolve tablet(s) in liquid) DO NOT ADMINISTER DISSOLVED TABLET VIA SURGICALLY PLACED TUBE OR TUBE less than 14 Congolese. To administer dissolved tablet(s) mix with 4 ounces of water over 2-3 minutes, stir for 30 seconds prior to administration; rinse dosing cup and administer residual medication to ensure full dose given 0630 (Given - Provider: eJtt Dhaliwal RN) potassium chloride SA (K-DUR,KLOR-CON) CR tablet 40 mEq (COMPLETED) 40 mEq, Oral, Once, On Sat04/22/24 at 0930, For 1 dose, DO NOT CRUSH OR CHEW (if instructed may dissolve tablet(s) in liquid) DO NOT ADMINISTER DISSOLVED TABLET VIA SURGICALLY PLACED TUBE OR TUBE less than 14 Congolese. To administer dissolved tablet(s) mix with 4 ounces of water over 2-3 minutes, stir for 30 seconds prior to administration; rinse dosing cup and administer residual medication to ensure full dose given 1004 (Given - Provider: Marielle Anne, RONNY) potassium, sodium phosphates (PHOS-NAK) 280-160-250 mg packet 2 packet () 2 packet, Oral, 4 times daily with meals and nightly, First dose on Sat04/21/24 at 1700, For 3 doses, mg dosing is based on phosphorus component. Each packet contains 250 mg elemental phosphorus. 1700 (Not Given - Provider: Drea Mayfield RN - Reason: Contraindicated)2108 (Given - Provider: Jett Dhaliwal, RONNY) 0814 (Given - Provider: Marielle Anne, RN) senna-docusate (SENNA-S) 8.6-50 mg per tablet 1 tablet 1 tablet, Oral, 2 times daily, First dose on Sat04/20/24 at 1100, NOT for abdominal surgery patients. Hold for loose stools. Do Not Crush or Chew if administering orally due to bitter taste. May be crushed if given via tube. 0907 (Given - Provider: Drea Mayfield RN)2107 (Given - Provider: Jett Dhaliwal, RONNY) 0815 (Given - Provider: Marielle Anne, RONNY)2100 (Not Given - Provider: Sakshi Joshi RN - Reason: Patient/family refused) 0900 (Not Given - Provider: Che Manriquez RN - Reason: Patient/family refused) sod phos di, mono-K phos mono (K-PHOS NEUTRAL) tablet 250 mg 250 mg, Oral, 4 times daily, First dose on Nelly 04/23/24 at 0915, For 4 doses 1109 (Given - Provider: Che Manriquez RN)1506 (Given - Provider: Che Manriquez RN) sodium phosphate 30 mmol in dextrose (D5W) 5% 250 mL IVPB (COMPLETED) 30 mmol, Intravenous, Administer over 5 Hours, Once, On Nelly 04/23/24 at 1030, For 1 dose 1219 (New Bag - Provider: Che Manriquez RN)1223 (Paused - Provider: Che Manriquez RN)1223 (Restarted - Provider: Che Manriquez RN)1223 (Paused - Provider: Che Manriquez RN)1223 (Restarted - Provider: Che Manriquez RN)1224 (Paused - Provider: Che Manriquez RN)1224 (Restarted - Provider: Che Manriquez RN)1224 (Paused - Provider: Che Manriquez RN)1224 (Restarted - Provider: Che Manriquez RN)1225 (Paused - Provider: Che Manriquez RN)1225 (Restarted - Provider: Che Manriquez RN)1225 (Paused - Provider: Che Manriquez RN)1225 (Restarted - Provider: Che Manriquez RN)1226 (Paused - Provider: Che Manriquez RN)1226 (Restarted - Provider: Che Manriquez RN)1226 (Paused - Provider: Che Manriquez RN)1226 (Restarted - Provider: Che Manriquez RN)1226 (Paused - Provider: Che Manriquez RN)1230 (Restarted - Provider: Che Manriquez RN)1230 (Paused - Provider: Che Manriquez RN)1230 (Restarted - Provider: Che Manriquez RN)1230 (Paused - Provider: Che Manriquez RN)1230 (Restarted - Provider: Che Manriquez RN)1231 (Paused - Provider: Che Manriquez RN)1231 (Restarted - Provider: Che Manriquez RN)1231 (Paused - Provider: Che Manriquez RN)1231 (Restarted - Provider: Che Manriquez RN)1231 (Paused - Provider: Che Manriquez RN)1231 (Restarted - Provider: Che Manriquez RN)1232 (Paused - Provider: Che Manriquez RN)1232 (Restarted - Provider: Che Manriquez RN)1232 (Paused - Provider: Che Manriquez RN)1232 (Restarted - Provider: Che Manriquez RN)1232 (Paused - Provider: Che Manriquez RN)1233 (Restarted - Provider: Che Manriquez RN)1233 (Paused - Provider: Che Manriquez RN)1233 (Restarted - Provider: Che Manriquez RN)1233 (Paused - Provider: Che Manriquez RN)1233 (Paused - Provider: Che Manriquez RN)1248 (Restarted - Provider: Che Manriquez RN)1446 (Paused - Provider: Che Manriquez RN)1446 (Restarted - Provider: Che Manriquez RN)1458 (Paused - Provider: Che Manriquez RN)1458 (Restarted - Provider: Che Manriquez RN)1458 (Paused - Provider: Che Manriquez RN)1458 (Paused - Provider: Che Manriquez RN)1500 (Restarted - Provider: Che Manriquez RN)1500 (Paused - Provider: Che Manriquez RN)1502 (Restarted - Provider: Che Manriquez RN)1502 (Paused - Provider: Che Manriquez RN)1505 (Restarted - Provider: Che Manriquez RN)1505 (Paused - Provider: Che Manriquez RN)1507 (Restarted - Provider: Che Manriquez RN)1507 (Stopped - Provider: Che Manriquez RN) thiamine (B-1) injection 100 mg (CANCELED) 100 mg, Intravenous, Daily (in the afternoon), First dose on 04/20/24 at 1300, Administer at a rate of 200 mg/minute if IV Push 1235 (Given - Provider: Drea Mayfield, RONNY) 1502 (Given - Provider: Marielle Anne RN) thiamine tablet 100 mg 100 mg, Oral, Daily, First dose on Nelly 04/23/24 at 1400 1506 (Given - Provider: Che Manriquez RN) Continuous Medication Order 04/21/2024 04/22/2024 04/23/2024 sodium chloride 0.9% (NS) (CANCELED) 100 mL/hr, Intravenous, Continuous, Starting on Sat04/19/24 at 1525 0059 (Paused - Provider: Jett Dhaliwal, RN)0100 (Restarted - Provider: Jett Dhaliwal, RN)0117 (Paused - Provider: Jett Dhaliwal, RN)0118 (Restarted - Provider: Jett Dhaliwal, RN)0230 (Paused - Provider: Jett Dhaliwal, RN)0231 (Restarted - Provider: Jett Dhaliwal RN)0234 (Paused - Provider: Jett Dhaliwal, RN)0234 (Restarted - Provider: Jett Dhaliwal, RN)0235 (Paused - Provider: Jett Dhaliwal, RN)0235 (Restarted - Provider: Jett Dhaliwal, RN)0236 (Paused - Provider: Jett Dhaliwal, RN)0236 (Restarted - Provider: Jett Dhaliwal, RN)0237 (Paused - Provider: Jett Dhaliwal, RN)0237 (Restarted - Provider: Jett Dhaliwal, RN)0237 (Paused - Provider: Jett Dhaliwal, RN)0238 (Restarted - Provider: Jett Dhaliwal, RN)0238 (Paused - Provider: Jett Dhaliwal, RN)0239 (Restarted - Provider: Jett Dhaliwal, RN)0239 (Paused - Provider: Jett Dhaliwal, RN)0241 (Restarted - Provider: Jett Dhaliwal RN)0242 (Stopped - Provider: Jett Dhaliwal RN)0242 (New Bag - Provider: Andrea Peres LPN)0249 (Paused - Provider: Jett Dhaliwal, RN)0250 (Restarted - Provider: Jett Dhaliwal, RN)0325 (Paused - Provider: Jett Dhaliwal, RN)0325 (Restarted - Provider: Jett Dhaliwal RN)0331 (Paused - Provider: Jett Dhaliwal, RN)0331 (Restarted - Provider: Jett Dhaliwal, RN)0442 (Paused - Provider: Jett Dhaliwal, RN)0442 (Restarted - Provider: Jett Dhaliwal, RN)0515 (Paused - Provider: Jett Dhaliwal, RN)0515 (Restarted - Provider: Jett Dhaliwal, RN)0523 (Paused - Provider: Jett Dhaliwal, RN)0523 (Restarted - Provider: Jett Dhaliwal, RN)0523 (Paused - Provider: Jett Dhaliwal, RN)0524 (Restarted - Provider: Jett Dhaliwal RN)0535 (Paused - Provider: Jett Dhaliwal, RN)0535 (Restarted - Provider: Jett Dhaliwal, RN)0535 (Paused - Provider: Jett Dhaliwal, RN)0536 (Restarted - Provider: Jett Dhaliwal, RN)0549 (Rate/Dose Verify - Provider: Jett Dhaliwal RN)0613 (Paused - Provider: Jett Dhaliwal RN)0613 (Restarted - Provider: Jett Dhaliwal RN)0638 (Paused - Provider: Jett Dhaliwal, RN)0638 (Restarted - Provider: Jett Dhaliwal, RN)0743 (Paused - Provider: Jett Dhaliwal, RN)0743 (Restarted - Provider: Jett Dhaliwal, RN)0753 (Paused - Provider: Jett Dhaliwal, RN)0754 (Restarted - Provider: Jett Dhaliwal RN)0906 (Paused - Provider: Jett Dhaliwal RN)0907 (Restarted - Provider: Jett Dhaliwal RN)0957 (Paused - Provider: Jett Dhaliwal, RN)0957 (Restarted - Provider: Jett Dhaliwal, RN)1032 (Paused - Provider: Jett Dhaliwal, RN)1043 (Restarted - Provider: Jett Dhaliwal, RN)1108 (Paused - Provider: Jett Dhaliwal RN)1108 (Restarted - Provider: Jett Dhaliwal RN)1119 (Paused - Provider: Jett Dhaliwal, RN)1119 (Restarted - Provider: Jett Dhaliwal, RN)1238 (Paused - Provider: Jett Dhaliwal, RN)1239 (Restarted - Provider: Jett Dhaliwal, RN)1241 (Stopped - Provider: Jett Dhaliwal RN)1241 (New Bag - Provider: Drea Mayfield RN)1307 (Paused - Provider: Jett Dhaliwal RN)1307 (Paused - Provider: Jett Dhaliwal, RN)1324 (Paused - Provider: Jett H Engelke, RN)1324 (Restarted - Provider: Jett Dhaliwal, RN)1542 (Paused - Provider: Jett Dhaliwal, RN)1545 (Restarted - Provider: Jett Dhaliwal, RN)1803 (Paused - Provider: Jett Dhaliwal, RN)180 (Restarted - Provider: Jett Dhaliwal, RN)2038 (Paused - Provider: Jett Dhaliwal, RN)2038 (Restarted - Provider: Jett Dhaliwal, RN)2116 (Paused - Provider: Jett Dhaliwal, RN)2117 (Restarted - Provider: Jett Dhaliwal, RN)2141 (Paused - Provider: Jett Dhaliwal, RN)2141 (Restarted - Provider: Jett Dhaliwal, RN)2151 (Paused - Provider: Jett Dhaliwal, RN)2151 (Restarted - Provider: Jett Dhaliwal, RN)2215 (Paused - Provider: Jett Dhaliwal RN)221 (Restarted - Provider: Jett Dhaliwal, RN)230 (KVO - Provider: Jett Dhaliwal RN)230 (Paused - Provider: Jett Dhaliwal RN)230 (Paused - Provider: Jett Dhaliwal, RN)230 (KVO - Provider: Jett Dhaliwal, RN)2314 (Stopped - Provider: Jett Dhaliwal, RN)2314 (New Bag - Provider: Jett Dhaliwal RN) 0040 (Paused - Provider: Jett Dhaliwal, RN)0040 (Restarted - Provider: Jett Dhaliwal, RN)0212 (Rate/Dose Verify - Provider: Jett Dhaliwal RN)0310 (Rate/Dose Verify - Provider: Jett Dhaliwal, RN)0312 (Paused - Provider: Jett Dhaliwal, RN)0312 (Restarted - Provider: Jett Dhaliwal, RN)0318 (Paused - Provider: Jett Dhaliwal, RN)0318 (Restarted - Provider: Jett Dhaliwal, RN)0531 (Paused - Provider: Jett Dhaliwal, RN)0532 (Restarted - Provider: Jett Dhaliwal RN)0559 (Rate/Dose Verify - Provider: Jett Dhaliwal RN)1003 (New Bag - Provider: Wanda Guthrie, RN) 1200 (Stopped - Provider: Che Manriquez RN) PRN Medication Order 04/21/2024 04/22/2024 04/23/2024 acetaminophen (TYLENOL) tablet 650 mg 650 mg, Oral, Every 4 hours PRN, mild pain, fever 100.4 F or greater, headaches, Starting on Sat04/19/24 at 1635 bisacodyL (DULCOLAX) suppository 10 mg 10 mg, Rectal, Daily PRN, constipation, Starting on Sat04/20/24 at 0931 diazePAM (VALIUM) tablet 5-15 mg(Linked Group 2) 5-15 mg, Oral, Every 1 hour prn, CIWA score 8-25. See admin instructions for dosing details., Starting on Sat04/19/24 at 1447, CIWA less than 8: No medical intervention: Assess Vital Signs/Pulse Oximeter/CIWA in 4 hours. CIWA 8-10: Give diazepam (VALIUM) 5 mg orally: Assess Vital Signs/Pulse Oximeter/CIWA in 4 hours. CIWA 11-14: Give diazepam (VALIUM) 10 mg orally: Assess Vital Signs/Pulse Oximeter/CIWA in 2 hours. CIWA 15-25: Give diazepam (VALIUM) 15 mg orally: Assess Vital Signs/Pulse Oximeter/CIWA in 1 hour. CIWA greater than 25: Give LORazepam (ATIVAN) 4 mg PO/IV/IM and notify Physician. Assess Vital Signs/Pulse Oximeter/CIWA in 15 minutes. [] Discontinue CIWA protocol if patient is started on IV infusion of Benzodiazepines, Dexmedetomidine or Propofol. HYDROmorphone (DILAUDID) injection 0.5-1.5 mg (CANCELED) 0.5-1.5 mg, Intravenous, Every 3 hours PRN (may repeat), moderate to severe pain, Starting on Sat04/20/24 at 0930, Initiate with 1 mg IV every 3 hours prn moderate to severe pain. For unrelieved pain, may give additional 0.5 mg within 30 minutes of initial dose. If pain is RELIEVED after repeat dose, change to 1.5 mg every 3 hours prn moderate to severe pain. If pain is UNrelieved after repeat dose or patient requires dose reduction, call physician. May use IV for breakthrough or if unable to tolerate enteral routes. 0020 (Given - Provider: Jett Dhaliwal, RN)0318 (Given - Provider: Jett Dhaliwal, RN)0929 (Given - Provider: Drea Mayfield, RONNY)1235 (Given - Provider: Drea Mayfield RN)1542 (Given - Provider: Drea Mayfield RN)1850 (Given - Provider: Drea Mayfield, RONNY)2107 (Given - Provider: Jett Dhaliwal, RN) 0021 (Given - Provider: Jett Dhaliwal, RONNY)0335 (Given - Provider: Jett Dhaliwal RN)0634 (Given - Provider: Jett Dhaliwal RN) iopamidoL (ISOVUE-370) 370 mg iodine /mL (76 %) injection 75 mL (COMPLETED) 75 mL, Intravenous, Once in imaging, contrast, Starting on Sat04/21/24 at 1058, For 1 dose 1318 (Contrast Administered - Provider: Sonya Otto, TECHNOLOGIST - Comment: LOT: [id number]) iopamidol (ISOVUE-370) 76 % oral solution 6 mL (COMPLETED) 6 mL, Oral, Every 30 min PRN, contrast, Starting on Sat04/21/24 at 1058, For 3 doses, Dilute each 6mls with 300mls cold water prior to oral administration 1133 (Contrast Administered - Provider: Drea Mayfield RN)1202 (Contrast Administered - Provider: Drea Mayfield RN)1235 (Contrast Administered - Provider: Drea Mayfield, RONNY) LORazepam (ATIVAN) injection 4 mg(Linked Group 2) 4 mg, Intravenous, Every 15 min PRN, For CIWA score greater than 25, Starting on Sat04/19/24 at 1447, Notify physician after administering dose. Assess Vital Signs/Pulse Oximeter/CIWA in 15 minutes. Give oral route if tolerated. If oral not tolerated give IV. If IV route not available give IM. [] Discontinue CIWA protocol if patient is started on IV infusion of Benzodiazepines, Dexmedetomidine or Propofol. VESICANT LORazepam (ATIVAN) injection 4 mg(Linked Group 2) 4 mg, Intramuscular, Every 15 min PRN, For CIWA score greater than 25., Starting on 04/19/24 at 1447, Notify physician after administering dose. Assess Vital Signs/Pulse Oximeter/CIWA in 15 minutes. Give oral route if tolerated. If oral not tolerated give IV. If IV route not available give IM. [] Discontinue CIWA protocol if patient is started on IV infusion of Benzodiazepines, Dexmedetomidine or Propofol. VESICANT LORazepam (ATIVAN) tablet 4 mg(Linked Group 2) 4 mg, Oral, Every 15 min PRN, For CIWA score Greater than 25., Starting on Sat04/19/24 at 1447, Notify physician after administering dose. Assess Vital Signs/Pulse Oximeter/CIWA in 15 minutes. Give oral route if tolerated. If oral not tolerated give IV. If IV route not available give IM. [] Discontinue CIWA protocol if patient is started on IV infusion of Benzodiazepines, Dexmedetomidine or Propofol. morphine injection 2 mg 2 mg, Intravenous, Every 6 hours PRN, moderate to severe pain, Starting on Sat04/22/24 at 0846 1146 (Given - Provider: Marielle Anne, RONNY)1825 (Given - Provider: Meagan Andrea, RONNY) 0427 (Given - Provider: Sakshi Joshi, RONNY)1213 (Given - Provider: Che Manriquez, RONNY) naloxone (NARCAN) injection 0.1 mg(Linked Group 3) 0.1 mg, Intravenous, As needed, opioid reversal, For respiratory rate less than or equal to 8 per minute., Starting on Sat04/19/24 at 1522, Mix nalOXone (NARCAN) 0.4 mg (1mL) with 9 mL of Normal Saline to total 10 mL. Administer 0.1 mg (2.5mL) IV Push every 2 minutes until respiratory rate is 10 or greater. naloxone (NARCAN) injection 0.4 mg(Linked Group 3) 0.4 mg, Intravenous, As needed, opioid reversal, patient is pulseless, breathless, and unresponsive, Starting on Sat04/19/24 at 1522, Call a code first, then administer naloxone dose undiluted IV Push over 30 seconds. ondansetron (ZOFRAN) injection 4 mg(Linked Group 4) 4 mg, Intravenous, Every 6 hours PRN, nausea, vomiting, Starting on Sat04/19/24 at 1635, Use oral route first, if tolerated. 0318 (Given - Provider: Jett Dhaliwal RN)0929 (Given - Provider: Drea Mayfield, RONNY)1542 (Given - Provider: Drea Mayfield, RONNY)2106 (Given - Provider: Jett Dhaliwal, RONNY) 0826 (Given - Provider: Marielle Anne, RONNY) ondansetron (ZOFRAN-ODT) disintegrating tablet 4 mg(Linked Group 4) 4 mg, Oral, Every 6 hours PRN, nausea, vomiting, Starting on Sat04/19/24 at 1635, Use oral route first, if tolerated. Formulation requires tablet remain in sealed package until immediately prior to dose being administered. 0318 (See Alternative - Provider: Jett Dhaliwal RN)0929 (See Alternative - Provider: Drea Mayfield RN)1542 (See Alternative - Provider: Drea Mayfield RN)2106 (See Alternative - Provider: Jett Dhaliwal, RONNY) 0826 (See Alternative - Provider: Marielle Anne, RONNY) PHENobarbital injection 65 mg 65 mg, Intramuscular, Every 6 hours PRN, Two of the following: SBP greater than 160 or DBP greater than 100, Significant agitation (RASS greater than +2), HR greater than 110, Diaphoresis, tremors, Hallucinations, Starting on Sat04/19/24 at 1456, For 102 hours, VESICANT senna (SENOKOT) tablet 8.6 mg 8.6 mg (1 tablet), Oral, 2 times daily PRN, constipation, Starting on Sat04/19/24 at 1635 sodium chloride (PF) (NS) 0.9 % contrast line flush 10 mL (COMPLETED)(Linked Group 5) 10 mL, Intravenous, Once in imaging, contrast, Per hotel manager (Radiology) for line patency check prior to contrast administration, Starting on Sat04/21/24 at 1058, For 1 dose 1318 (Given - Provider: Sonya Otto, TECHNOLOGIST) sodium chloride (PF) (NS) 0.9 % contrast line flush 80 mL (COMPLETED)(Linked Group 5) 80 mL, Intravenous, Once in imaging, contrast, Per hotel manager (Radiology), Starting on Sat04/21/24 at 1058, For 1 dose, 30 mL BEFORE contrast administration 50 mL AFTER contrast administration 1318 (Given - Provider: Sonya Otto, TECHNOLOGIST) Linked Groups Order Group 1: PHENobarbital injection 162.5 mg (COMPLETED) 162.5 mg (rounded from 164.16 mg = 2.4 mg/kg 68.4 kg [place] weight), Intramuscular, Once, On Sat04/19/24 at 1505, For 1 dose, If volume exceeds 2 mL please draw up dose in multiple syringes. VESICANT, Does patient require REDUCED or STANDARD dosing regimen: REDUCED regimen (patient has known risk factors), Reduced Regimen Guidleines: Patient has clinically significant risk factors for a reduced dose (6mg/kg) 65 years old or older, significant respiratory impairment (i.e., COPD, Pneumonia, Rib Fractures), concurrent benzodiazepine therapy or hepatic dysfunction Followed by PHENobarbital injection 123.5 mg (COMPLETED) 123.5 mg (rounded from 123.12 mg = 1.8 mg/kg 68.4 kg [place] weight), Intramuscular, Every 3 hours, First dose on Sat04/19/24 at 1805, For 2 doses, If volume exceeds 2 mL please draw up dose in multiple syringes. VESICANT, Does patient require REDUCED or STANDARD dosing regimen: REDUCED regimen (patient has known risk factors), Reduced Regimen Guidleines: Patient has clinically significant risk factors for a reduced dose (6mg/kg) 65 years old or older, significant respiratory impairment (i.e., COPD, Pneumonia, Rib Fractures), concurrent benzodiazepine therapy or hepatic dysfunction Followed by PHENobarbitaL tablet 64.8 mg (COMPLETED) 64.8 mg, Oral, Every 12 hours, First dose on Sat04/20/24 at 0905, For 2 doses Followed by PHENobarbitaL tablet 32.4 mg (COMPLETED)Jump to med 32.4 mg, Oral, Every 12 hours, First dose on Sat04/21/24 at 0905, For 2 doses Followed by PHENobarbitaL tablet 32.4 mg (COMPLETED)Jump to med 32.4 mg, Oral, Every 24 hours, First dose on Sat04/22/24 at 2105, For 1 dose Group 2: diazePAM (VALIUM) tablet 5-15 mgJump to med 5-15 mg, Oral, Every 1 hour prn, CIWA score 8-25. See admin instructions for dosing details., Starting on 04/19/24 at 1447, CIWA less than 8: No medical intervention: Assess Vital Signs/Pulse Oximeter/CIWA in 4 hours. CIWA 8-10: Give diazepam (VALIUM) 5 mg orally: Assess Vital Signs/Pulse Oximeter/CIWA in 4 hours. CIWA 11-14: Give diazepam (VALIUM) 10 mg orally: Assess Vital Signs/Pulse Oximeter/CIWA in 2 hours. CIWA 15-25: Give diazepam (VALIUM) 15 mg orally: Assess Vital Signs/Pulse Oximeter/CIWA in 1 hour. CIWA greater than 25: Give LORazepam (ATIVAN) 4 mg PO/IV/IM and notify Physician. Assess Vital Signs/Pulse Oximeter/CIWA in 15 minutes. [] Discontinue CIWA protocol if patient is started on IV infusion of Benzodiazepines, Dexmedetomidine or Propofol. Or LORazepam (ATIVAN) injection 4 mgJump to med 4 mg, Intravenous, Every 15 min PRN, For CIWA score greater than 25, Starting on 04/19/24 at 1447, Notify physician after administering dose. Assess Vital Signs/Pulse Oximeter/CIWA in 15 minutes. Give oral route if tolerated. If oral not tolerated give IV. If IV route not available give IM. [] Discontinue CIWA protocol if patient is started on IV infusion of Benzodiazepines, Dexmedetomidine or Propofol. VESICANT Or LORazepam (ATIVAN) tablet 4 mgJump to med 4 mg, Oral, Every 15 min PRN, For CIWA score Greater than 25., Starting on 04/19/24 at 1447, Notify physician after administering dose. Assess Vital Signs/Pulse Oximeter/CIWA in 15 minutes. Give oral route if tolerated. If oral not tolerated give IV. If IV route not available give IM. [] Discontinue CIWA protocol if patient is started on IV infusion of Benzodiazepines, Dexmedetomidine or Propofol. Or LORazepam (ATIVAN) injection 4 mgJump to med 4 mg, Intramuscular, Every 15 min PRN, For CIWA score greater than 25., Starting on 04/19/24 at 1447, Notify physician after administering dose. Assess Vital Signs/Pulse Oximeter/CIWA in 15 minutes. Give oral route if tolerated. If oral not tolerated give IV. If IV route not available give IM. [] Discontinue CIWA protocol if patient is started on IV infusion of Benzodiazepines, Dexmedetomidine or Propofol. VESICANT Group 3: naloxone (NARCAN) injection 0.1 mgJump to med 0.1 mg, Intravenous, As needed, opioid reversal, For respiratory rate less than or equal to 8 per minute., Starting on Sat04/19/24 at 1522, Mix nalOXone (NARCAN) 0.4 mg (1mL) with 9 mL of Normal Saline to total 10 mL. Administer 0.1 mg (2.5mL) IV Push every 2 minutes until respiratory rate is 10 or greater. And Notify physician (CANCELED) STAT, Until discontinued, Starting on Sat04/19/24 at 1523, Until Specified, Respiratory rate less than: 8, For respiratory rate less than or equal to 8, notify physician and/or appropriate staff for additional orders. And naloxone (NARCAN) injection 0.4 mgJump to med 0.4 mg, Intravenous, As needed, opioid reversal, patient is pulseless, breathless, and unresponsive, Starting on Sat04/19/24 at 1522, Call a code first, then administer naloxone dose undiluted IV Push over 30 seconds. Group 4: ondansetron (ZOFRAN-ODT) disintegrating tablet 4 mgJump to med 4 mg, Oral, Every 6 hours PRN, nausea, vomiting, Starting on Sat04/19/24 at 1635, Use oral route first, if tolerated. Formulation requires tablet remain in sealed package until immediately prior to dose being administered. Or ondansetron (ZOFRAN) injection 4 mgJump to med 4 mg, Intravenous, Every 6 hours PRN, nausea, vomiting, Starting on Sat04/19/24 at 1635, Use oral route first, if tolerated. Group 5: sodium chloride (PF) (NS) 0.9 % contrast line flush 10 mL (COMPLETED)Jump to med 10 mL, Intravenous, Once in imaging, contrast, Per hotel manager (Radiology) for line patency check prior to contrast administration, Starting on Sat04/21/24 at 1058, For 1 dose And sodium chloride (PF) (NS) 0.9 % contrast line flush 80 mL (COMPLETED)Jump to med 80 mL, Intravenous, Once in imaging, contrast, Per hotel manager (Radiology), Starting on Sat04/21/24 at 1058, For 1 dose, 30 mL BEFORE contrast administration 50 mL AFTER contrast administration Care Teams (unrecognized sec tion and content) Stage Setting Painter Apprentice Relationship Specialty Start Date End Date Justin Pearce MD [address] [place] [id number] PCP - General 05/23/22 Karen Real Community [facility] Worker Case Management 03/07/23 Team Status: Active Member Role/Relationship Status Dates No Primary Care Physician Primary Care Provider Active Team Status: Active Member Role/Relationship Status Dates No Primary Care Physician Primary Care Provider Active Start: February 17, 2025 Dr. Dada Caballero DO Emergency Provider Active Start: February 17, 2025 Dr. Sujey Stacy MD Admit Provider Active St art: February 17, 2025 Dr. Sujey Stacy MD Attending Provider Active Start: February 17, 2025 Dr. Sujey Stacy MD Other Provider Active St art: February 17, 2025 Team Status: Inactive Member Role/Relationship Status Dates No Primary Care Physician Primary Care Provider Active Start: February 17, 2025 End: February 19, 2025 Dr. Dada Caballero DO Emergency Provider Active Start: February 17, 2025 End: February 19, 2025 Dr. Sujey Stacy MD Admit Provider Active St art: February 17, 2025 End: February 19, 2025 Dr. Sujey Stacy MD Other Provider Active St art: February 17, 2025 End: February 19, 2025 Dr. Phoenix Irvin MD Attending Provider Active Start: February 17, 2025 End: February 19, 2025 Team Status: Active Member Role/Relationship Status Dates No Primary Care Physician Primary Care Provider Active Start: February 18, 2025 Dr. Dada Caballero DO Emergency Provider Active Start: February 18, 2025 Dr. Sujey Stacy MD Admit Provider Active St art: February 18, 2025 Dr. Sujey Stacy MD Other Provider Active St art: February 18, 2025 Dr. Phoenix Irvin MD Attending Provider Active Start: February 18, 2025 Dr. Phoenix Irvin MD Other Provider Active Star t: February 18, 2025 Team Status: Active Member Role/Relationship Status Dates No Primary Care Physician Primary Care Provider Active Start: February 19, 2025 Dr. Dada Caballero DO Emergency Provider Active Start: February 19, 2025 Dr. Sujey Stacy MD Admit Provider Active St art: February 19, 2025 Dr. Sujey Stacy MD Other Provider Active St art: February 19, 2025 Dr. Phoenix Irvin MD Attending Provider Active Start: February 19, 2025 Dr. Phoenix Irvin MD Other Provider Active Star t: February 19, 2025 Goals (unrecognized section and content) Goals may be documented in a n alternate section FOR RECORDS PERTAINING TO PATIENTS WHO ARE OR HAVE BEEN ENROLLED IN A CHEMICAL DEPENDENCY/SUBSTANCEABUSE PROGRAM, SOME INFORMATION MAY BE OMITTED. This clinical summary was aggregated from multiple sources. Caution should be exercised in using it in the provision of clinical care. This summary normalizes information from multiple sources, and as a consequence, information in this document may materially change the coding, format and clinical context of patient data. In addition, data may be omitted in some cases. CLINICAL DECISIONS SHOULD BE BASED ON THE PRIMARY CLINICAL RECORDS. [employer] provides no warranty or guarantee of the accuracy or completeness of information in this document.
[2025-05-04 19:54] VITALS: BMI 20.9
[2025-05-04 20:05] VITALS: BP 144/106; PULSE 103; RESP 18; TEMP 36.9; O2SAT 98
[2025-05-04] MEDS: hydrOXYzine PAM 25 MG Capsule 50 MG PO (20:40)
[2025-05-04 22:41] VITALS: BP 130/64; PULSE 109; RESP 18; TEMP 36.9; O2SAT 93
[2025-05-05] VITALS (8 sets, daily range): BP systolic 136–160; BP diastolic 95–109; PULSE 80–94; RESP 14–18; TEMP 36.6–36.8; O2SAT 95–98
[2025-05-05] MEDS: Thiamine Hydrochloride 100 MG Tablet PO (10:10)
[2025-05-05] MEDS: 0.9% Saline Lock 10 ML Syringe IV (10:11)
--- NOTE | 2025-05-05 13:15 | ADDICTION ---
Clinician met with pat to complete RAMP assesments. Client expressed reliance on his for maintaining sobriety, stating that since she is a drug counselor, she can help him stay sober. Despite this belief, both individuals have experienced repeated detox admissions since June 2024, indicating a persistent pattern of relapse and high-risk behavior. His statement suggests externalized responsibility for recovery and limited personal accountability, which may hinder long-term success. Emotional tone appeared hopeful yet dependent, with no clear plan articulated beyond relying on his spouse?s professional background. This dynamic raises concerns about codependency and insufficient engagement in individualized recovery strategies. Will discuss follow up/dc plan tomorrow.
--- NOTE | 2025-05-05 14:25 | CHAPLAIN ---
Type of Pastoral Visit _x__ Initial Visit ___ Follow-up Visit ___ On-call Visit ___ General Patient Visit ___ Spiritual Assessment ___ Family Conference ___ Bereavement ___ Rapid Response ___ Code Blue ___ Other (describe below) Pastoral Care Referral From ___ Patient _x__ Family ___ Nurse ___ Physician ___ Pulverizer Feeder ___ Tower Helper ___ Other (describe below) Sacrament/Intervention ___ Active listening ___ Anointing ___ Anabaptism ___ Bereavement ___ Communion ___ Kamini exploration ___ ___ Life review ___ Prayer ___ Reconciliation ___ Sacrament of Sick _x__ Supportive presence ___ Wedding ___ Other (describe below) Pastoral Comments patient was seen here previously in a recent admission; SO asks for a visit to this patient and shares that the patient's mother suddenly last week; pt's room door is open and this campground cleaning attendant gives greeting to the patient; pt is awake but he does not open his eyes; pt recognizes campground cleaning attendant but only responds with one word answers to questions; pt is offered support and presence, but he states that he would rather be alone for now; pt is shivering a lot and looks like he is going through withdrawals; pt denies any other needs at this time; pt is offered a visit for tomorrow and he says that would be fine
[2025-05-05] MEDS: hydrOXYzine PAM 25 MG Capsule 50 MG PO (14:56)
--- NOTE | 2025-05-05 17:43 | PN.HOSP_ITS ---
Reason for Visit Chief Complaint: Alcohol and opiate withdrawal and desire for detox Subjective Subjective Still feeling generally shaky and unwell but less abdominal upset, feels a little bit better with the medications Objective Data Objective Data Vital Signs: Vital Signs Temp Pulse Resp BP Pulse Ox O2 Del Method O2 Flow Rate 98.2 F 88 17 160/101 H 98 Room Air 2 05/05/25 14:54 05/05/25 14:54 05/05/25 14:54 05/05/25 14:54 05/05/25 14:54 05/05/25 14:54 05/04/25 20:05 Oxygen Flow Rate (L/min) 2 Oxygen Delivery Method Room Air Weight: 62.3 kg Body Mass Index (BMI) 20.9 Intake & Output: Intake and Output for Last 24 Hours 05/03/25 05/04/25 05/05/25 23:59 23:59 23:59 Intake Total 240 / 240 Balance 240 / 240 Lab / Micro Data 05/04/25 16:59 05/04/25 16:59 Labs: Laboratory Results - last 24 hr 05/04/25 17:54: Urine Opiates Screen NEGATIVE, U Buprenorphine Qual NEGATIVE, Ur Oxycodone Screen NEGATIVE, Urine Methadone Screen NEGATIVE, Urine Fentanyl Screen PRESUMPTIVE POSITIVE, Ur Barbiturates Screen NEGATIVE, Ur Phencyclidine Scrn NEGATIVE, Ur Amphetamines Screen NEGATIVE, U Benzodiazepines Scrn NEGATIVE, Urine Cocaine Screen NEGATIVE, U Cannabinoids Screen NEGATIVE Physical Exam Narrative General: Patient awake, appears uncomfortable HEENT: Atraumatic, normocephalic Eyes: extraocular movements grossly intact Neck: Supple Respiratory: normal respiratory effort, no wheezes or rhonchi appreciated Cardiovascular: Does still have some sinus tachycardia GI: nondistended Extremities: Moving all extremities Neuro: No overt focal neurological deficits but does seem to be somewhat tremulous Psych: Attempts to be cooperative Assessment & Plan Assessment/Plan (1) Alcohol abuse: (2) Opiate abuse, continuous: PLAN: Plan Patient is a 34-year-old male who presented to [facility] ED on 05/04/2025 with alcohol and opiate withdrawal and desire for detox. 1. Alcohol abuse with withdrawal ? Admit under inpatient status to [facility]. Case management consulted. Hospitalized here in early February for alcohol and opiate detox and unfortunately left AMA on hospital day 3. Drinking 12-16 13% beers daily, last drink in the ED waiting room on day of admission. Reports tolerating phenobarbital taper well in the past. Will treat with phenobarbital taper and other as needed medications per alcohol withdrawal order set. Notably his significant other came in with him and is going through the RAMP program as well; they left AMA together last hospitalization. Appreciate case management assistance. -05/05: On phenobarb taper, will add and Ativan as needed in addition to phenobarbital if patient's scores greater than or equal to 12. Continue other present management 2. Opiate abuse with withdrawal ? Case management consulted as above. Starting fentanyl daily, last use in afternoon on day of admission. Denies IV drug use. Refusing Subutex taper as this has apparently led to precipitated withdrawal for him in the past. Will treat with other as needed medications per opiate withdrawal order set. Appreciate case management assistance as above. -05/05: Continue support medications, on phenobarb taper, per report had note wanted Subutex taper but will continue to treat symptomatically 3. Elevated LFTs ? T. bili 0.5, AST 347, ALT 176, alk phos 155 on admit. Has had elevated LFTs like this in the past. Acute hepatitis panel negative in February. No abdominal pain noted. Presume secondary to alcohol use. No need to trend further LFTs, can follow-up outpatient. -05/05: Repeating labs in the a.m., will likely need to follow-up outpatient Chronic medical problems and/or problems not being actively addressed during today's encounter: 4. Tobacco dependence ? Nicotine replacement therapy available per patient request. Discussed cessation on discharge. #DVT ppx: Low risk, ambulatory Majo Terrazas MD Charges/Coding Visit Charges Inpatient E&M: 82011 Subs Hosp L1
[2025-05-06 02:30] VITALS: BP 131/90; PULSE 80; RESP 16; TEMP 36.4; O2SAT 97
[2025-05-06 06:00] VITALS: BP 139/102; PULSE 70; RESP 14; TEMP 36.5; O2SAT 97
[2025-05-06 07:07] LABS: Hematocrit 42.8 % (40-54); Hemoglobin 14.9 g/dL (13.0-16.5); Mean Corp Hgb Conc 34.8 g/dL (32-36); Mean Corpuscular Volume 90.3 fL (80-94); Mean Platelet Vol. 9.5 fl (6.2-12.0); Platelet Count 149 K/mm3 (150-450); RBC Distribution Width CV 12.9 % (11.6-14.6); RBC Distribution Width SD 42.9 fl (35.1-43.9); Red Blood Count 4.74 M/mm3 (4.6-6.2); White Blood Count 4.2 K/mm3 (4.4-11.0)
[2025-05-06 07:35] LABS: AST(SGOT) 235 U/L (<=37); Alanine Aminotransfer ALT/SGPT 135 U/L (<=46); Albumin, Serum 4.6 g/dL (3.5-5.0); Alkaline Phosphatase 143 U/L (40-129); Anion Gap 13 (5-15); BUN 15 mg/dL (4-19); BUN/Creat Ratio 15.1 RATIO (10-20); Calcium,Total 9.7 mg/dL (7.6-11.0); Carbon Dioxide 24.9 mmol/L (21.0-32.0); Chloride 98 mmol/L (98-108); Estimated Creatinine Clearance 94.56 ml/min (50-250); Globulin 3.5 g/dL (2.2-4.2); Glucose 82 mg/dL (70-99); Potassium 4.0 mmol/L (3.3-5.1)
[2025-05-06] MEDS: Thiamine Hydrochloride 100 MG Tablet PO (09:34)
[2025-05-06 09:58] VITALS: BP 145/73; PULSE 77; RESP 18; TEMP 36.4; O2SAT 95
--- NOTE | 2025-05-06 11:27 | ADDICTION ---
Met with pt today to discuss d/c planning. Pt hold to the plan of counting on his SO to dictate their tx plan post d/c. He reports I will call you if I need you. He reports he does not need transportation post d/c.
[2025-05-06 15:00] VITALS: BP 152/76; PULSE 78; RESP 18; TEMP 36.4; O2SAT 96
[2025-05-06] MEDS: Nicotine (PBKC) 21 MG Patch TD (15:02)
--- NOTE | 2025-05-06 15:11 | CHAPLAIN ---
Type of Pastoral Visit ___ Initial Visit _x__ Follow-up Visit ___ On-call Visit ___ General Patient Visit ___ Spiritual Assessment ___ Family Conference ___ Bereavement ___ Rapid Response ___ Code Blue ___ Other (describe below) Pastoral Care Referral From ___ Patient _x__ Family ___ Nurse ___ Physician ___ [employer] Farmworker ___ Patient Relations Manager ___ Other (describe below) Sacrament/Intervention ___ Active listening ___ Anointing ___ Presybeterian ___ Bereavement ___ Communion ___ Kamini exploration ___ ___ Life review ___ Prayer ___ Reconciliation ___ Sacrament of Sick _x__ Supportive presence ___ Wedding ___ Other (describe below) Pastoral Comments second offer to patient to support him and give presence; pt recently lost his mother in sudden per family member; this grief is acknowledged by this call center trainer with offer to support and listen; pt keeps his eyes closed and does not respond; this call center trainer gives words of presence, concern, and care to patient; pt saying that he would like to be alone
[2025-05-06] MEDS: hydrOXYzine PAM 25 MG Capsule 50 MG PO ×2 (15:54→22:08)
--- NOTE | 2025-05-06 17:53 | PCM.PN.HOSP ---
Reason for Visit Chief Complaint: Alcohol and opiate withdrawal and desire for detox Subjective Subjective Still feels somewhat generally unwell. When asked why was not feeling well he said all the withdrawal symptoms and could not specify. Does appear somewhat more comfortable today Objective Data Objective Data Vital Signs: Vital Signs Temp Pulse Resp BP Pulse Ox O2 Del Method O2 Flow Rate 97.6 F L 78 18 152/76 H 96 Room Air 2 05/06/25 15:00 05/06/25 15:00 05/06/25 15:00 05/06/25 15:00 05/06/25 15:00 05/06/25 17:38 05/04/25 20:05 Oxygen Flow Rate (L/min) 2 Oxygen Delivery Method Room Air Weight: 62.3 kg Body Mass Index (BMI) 20.9 Intake & Output: Intake and Output for Last 24 Hours 05/04/25 05/05/25 05/06/25 23:59 23:59 23:59 Intake Total 240 / 340 1000 / 1000 Output Total 900 / 900 Balance 240 / 340 100 / 100 Lab / Micro Data 05/06/25 06:30 05/06/25 06:30 Labs: Laboratory Results - last 24 hr 05/06/25 06:30: WBC 4.2 L, RBC 4.74, Hgb 14.9, Hct 42.8, MCV 90.3, MCH 31.4, MCHC 34.8, RDW Std Deviation 42.9, RDW Coeff of Ida 12.9, Plt Count 149 L, MPV 9.5, Sodium 135, Potassium 4.0, Chloride 98, Carbon Dioxide 24.9, Anion Gap 13, BUN 15, Creatinine 0.97, Estim Creat Clear Calc 94.56, Est GFR (MDRD) Non-Af 105, BUN/Creatinine Ratio 15.1, Glucose 82, Calcium 9.7, Total Bilirubin 1.33 H, AST 235 H, ALT 135 H, Alkaline Phosphatase 143 H, Total Protein 8.1, Albumin 4.6, Globulin 3.5, Albumin/Globulin Ratio 1.3 Physical Exam Narrative General: Alert HEENT: Atraumatic, normocephalic Eyes: extraocular movements grossly intact Neck: Supple Respiratory: normal respiratory effort Cardiovascular: no edema appreciated GI: nondistended Extremities: Moving all extremities Neuro: No overt focal neurological deficits Psych: Minimally interactive Assessment & Plan Assessment/Plan (1) Alcohol abuse: (2) Opiate abuse, continuous: PLAN: Plan Patient is a 34-year-old male who presented to [facility] ED on 05/04/2025 with alcohol and opiate withdrawal and desire for detox. 1. Alcohol abuse with withdrawal ? Admit under inpatient status to [facility]. Case management consulted. Hospitalized here in early February for alcohol and opiate detox and unfortunately left AMA on hospital day 3. Drinking 12-16 13% beers daily, last drink in the ED waiting room on day of admission. Reports tolerating phenobarbital taper well in the past. Will treat with phenobarbital taper and other as needed medications per alcohol withdrawal order set. Notably his significant other came in with him and is going through the [facility] program as well; they left AMA together last hospitalization. Appreciate case management assistance. -05/05: On phenobarb taper, will add and Ativan as needed in addition to phenobarbital if patient's scores greater than or equal to 12. Continue other present management -05/06: Appears more comfortable today, not having active tremors in the room, deseeding as needed Ativan will continue phenobarb taper and other supportive medications 2. Opiate abuse with withdrawal ? Case management consulted as above. Starting fentanyl daily, last use in afternoon on day of admission. Denies IV drug use. Refusing Subutex taper as this has apparently led to precipitated withdrawal for him in the past. Will treat with other as needed medications per opiate withdrawal order set. Appreciate case management assistance as above. -05/05: Continue support medications, on phenobarb taper, per report had note wanted Subutex taper but will continue to treat symptomatically -05/06: Continue symptomatic treatment 3. Elevated LFTs ? T. bili 0.5, AST 347, ALT 176, alk phos 155 on admit. Has had elevated LFTs like this in the past. Acute hepatitis panel negative in February. No abdominal pain noted. Presume secondary to alcohol use. No need to trend further LFTs, can follow-up outpatient. -05/05: Repeating labs in the a.m., will likely need to follow-up outpatient -05/06: AST/ALT/alk phos down trended, recommend outpatient follow-up Chronic medical problems and/or problems not being actively addressed during today's encounter: 4. Tobacco dependence ? Nicotine replacement therapy available per patient request. Discussed cessation on discharge. #DVT ppx: Low risk, ambulatory Majo Terrazas MD Charges/Coding Visit Charges Inpatient E&M: 70753 Subs Hosp L1
[2025-05-06 21:00] VITALS: BP 127/95; PULSE 85; RESP 17; TEMP 36.7; O2SAT 95
[2025-05-07 02:46] VITALS: BP 115/77; PULSE 80; RESP 14; TEMP 36.7; O2SAT 97
[2025-05-07] MEDS: hydrOXYzine PAM 25 MG Capsule 50 MG PO ×2 (08:16→13:30)
[2025-05-07] MEDS: Nicotine (PBKC) 21 MG Patch TD (08:18)
[2025-05-07] MEDS: Thiamine Hydrochloride 100 MG Tablet PO (08:18)
[2025-05-07 09:00] VITALS: BP 136/90; PULSE 88; RESP 18; TEMP 36.7; O2SAT 99
[2025-05-07 11:21] VITALS: O2SAT 97
--- NOTE | 2025-05-07 16:48 | PCM.HOSP.N ---
Hospitalist Note Earlier today patient still reported feeling very anxious and unwell, discussed that we would continue medicines today given his continued symptoms and tentative discharge tomorrow afternoon if he was improving and patient was in agreement however this evening signed out AGAINST MEDICAL ADVICE
== END 2025-05-07 16:46 | disposition left against medical advice (07) | DRG 770 ==
LOC: ED 16:54 → PCU 18:52
PROVIDERS: Admitting Provider Hospitalist; Emergency Provider Emergency Medicine; Visit Provider Internal Medicine
DX: F10.139 Alcohol abuse with withdrawal, unspecified (principal); F10.129 Alcohol abuse with intoxication, unspecified; F11.13 Opioid abuse with withdrawal; F17.290 Nicotine dependence, other tobacco product, uncomplicated; R79.89 Other specified abnormal findings of blood chemistry; Z53.29 Procedure and treatment not carried out because of patient's decision for other reasons; Y90.8 Blood alcohol level of 240 mg/100 ml or more
CPT/HCPCS: 36415; 80053; 80307; 82077; 85025; 85027; 99283; 99406; A4216

== ENCOUNTER 2025-05-29 10:53 | Inpatient (IN) | payer MEDICAID, SELFPAY ==
[2025-05-29] VITALS (9 sets, daily range): BP systolic 126–164; BP diastolic 80–119; PULSE 85–148; RESP 14–20; TEMP 36.4–36.9; O2SAT 95–100; BMI 20.8; BMI 21.2
--- NOTE | 2025-05-29 11:14 | EKG12_ITS ---
Test Reason : Blood Pressure : */* mmHG Vent. Rate : 120 BPM Atrial Rate : 120 BPM P-R Int : 130 ms QRS Dur : 78 ms QT Int : 358 ms P-R-T Axes : * 213 -55 degrees QTcB Int : 505 ms Sinus tachycardia Right superior axis deviation Inferior infarct , age undetermined Prolonged QT Abnormal ECG Confirmed by STANISLAV INFANTE, KATEY ([id number]), editor & co founder SHREYA REYES ([id number]) on 05/31/2025 6:42:19 AM Referred By: Confirmed By: KATEY COLORADO MD
--- NOTE | 2025-05-29 11:16 | EDS_ITS ---
HPI History of Present Illness Chief Complaint: Substance Abuse Narrative Narrative: Patient is a 34-year-old male presenting to the emergency department for alcohol abuse. Patient has a past medical history of polysubstance abuse, alcoholic hepatitis, hypokalemia, transaminitis, alcoholic pancreatitis, kidney stone. Patient states that he drinks about 20-22 14% alcoholic beverages daily for the past year. Was recently admitted at the end of April and left AMA because his mother . He states he tried to detox at home but he developed sever nausea and vomiting so he drank at home and his last drink was on arrival here. Patient states he used IV heroin last night. He also endorses using his methadone this morning. He denies fever, chills, chest pain, SOB, diarrhea, dysuria or hematuria. PFSH PFSH Medical History Tobacco use Alcohol abuse Alcoholic pancreatitis Substance abuse Hx of renal calculi Allergy/AdvReac Type Severity Reaction Status Date / Time levetiracetam (From [facility]) Allergy HIVES Verified 05/29/25 10:57 Family History Mother Hypertension Polysubstance abuse Father Hypertension Polysubstance abuse Alcohol abuse Other Cancer Surgical History Hx of tonsillectomy Social History household members: spouse Smoking Status: Current every day smoker tobacco type: e-cigarettes Electronic Cigarette Use: with nicotine alcohol intake: current alcohol intake frequency: 3 or more drinks per day Alcohol type: hard liquor details: Approximately 1 pint Francine daily substance use type: heroin, opiates and other details: Heroin/fentanyl 1 to 2 g daily snorted ROS ROS ED ROS Narrative See HPI EXAM Physical Exam Narrative Exam Narrative: Vital signs: Reviewed General: Alert and oriented x 3. No acute distress. Writhing around in bed, nontoxic appearing. HEENT: Head is normocephalic and atraumatic, sinuses nontender, pupils equal round and reactive. 2 mm bilaterally. Nares are patent. Oropharynx and throat exams normal. Neck: Supple without lymphadenopathy nontender Cardiovascular: Regular rate and rhythm, no murmurs. No rubs or gallops. Normal S1 and S2 Respiratory: Clear to auscultation bilaterally. No wheezes, rales, rhonchi Abdominal: Soft and nontender. Normal bowel sounds. No guarding or rebound. Nonsurgical abdomen Extremities: No tenderness. No bruising. Normal range of motion. Normal sensation. Skin: No rash or redness. Healed scars on left forearm. Neurological: Cranial nerves II through XII are grossly intact. Normal strength and sensation. Normal cerebellar function The rest of the physical exam is unremarkable Const Vital Signs: 05/29/25 10:54 05/29/25 12:19 Temperature 98.4 F Temperature Source Oral Pulse Rate 148 H 104 H Respiratory Rate 20 H 18 Blood Pressure 164/119 H 152/102 H Blood Pressure Mean 134 118 Pulse Ox 98 95 Oxygen Delivery Method Room Air Room Air MDM MDM MDM Narrative Medical decision making narrative: Patient is a 34-year-old male presenting to the emergency department for alcohol abuse. Patient was seen and examined. Vitals are stable, he is tachycardic and hypertensive on arrival. Will start fluids and ReVital once patient is calm. No acute distress. EKG shows sinus tachycardia at a rate of 120 and a prolonged QT of 505. No dysrhythmia. No obvious ischemic changes. Fluid bolus started. Protonix and reglan given, suspect the burning abdominal pain is alcoholic gastritis. He has no abdominal pain on exam I do not think he requires a CT of his abdomen. Lab work obtained for admission for detox. CBC with no leukocytosis and a normal hemoglobin. CMP with baseline transaminitis. CK and lipase within normal limits. Urinalysis with no evidence of urinary tract infection. Urine drug screen positive for methadone, fentanyl and barbiturates. Alcohol level of 201. Magnesium level pending. Unfortunately the patient did leave [place] just 3 weeks ago for the same initial complaint. He is requesting detox once again. He has a high CIWA score, will give 2 mg of IV ativan. Patient will be admitted to hospitalist, Dr. Connell, for further management. Clinical impression: Polysubstance abuse Transaminitis History & Record Review Discussion w/independent historian: Patient Additional record(s) reviewed:: Prior inpatient record, Prior ED visit and Prior labs Lab Data Attestation: I reviewed the patient's lab results. Labs: Laboratory Results - last 24 hr 05/29/25 05/29/25 05/29/25 11:30 12:00 12:07 WBC 5.7 RBC 4.58 L Hgb 13.8 Hct 40.7 MCV 88.9 MCH 30.1 MCHC 33.9 RDW Std Deviation 39.2 RDW Coeff of Ida 12.1 Plt Count 133 L MPV 9.6 Immature Gran % (Auto) 0.200 Neut % (Auto) 64.5 Lymph % (Auto) 25.5 [place] % (Auto) 9.2 Eos % (Auto) 0.3 Baso % (Auto) 0.3 Absolute Neuts (auto) 3.7 Absolute Lymphs (auto) 1.46 Nucleated RBC % 0 Platelet Estimate SLT DEC Sodium 135 Potassium 4.0 Chloride 95 L Carbon Dioxide 23.7 Anion Gap 17 H BUN 8 Creatinine 0.81 Estim Creat Clear Calc 113.23 Est GFR (MDRD) Non-Af 119 BUN/Creatinine Ratio 9.6 L Glucose 97 Calcium 9.0 Total Bilirubin 1.27 AST 340 H ALT 87 H Alkaline Phosphatase 163 H Total Creatine Kinase 106 Total Protein 7.9 Albumin 4.2 Globulin 3.6 Albumin/Globulin Ratio 1.2 Lipase 41 Urine Color Yellow Urine Clarity Clear Urine pH 8.0 Ur Specific [place] 1.010 Urine Protein 30 H Urine Glucose (UA) Normal Urine Ketones Negative Urine Occult Blood Negative Urine Nitrite Negative Urine Bilirubin Negative Urine Urobilinogen 8 H Ur Leukocyte Esterase 100 H Urine RBC 0 SEEN Urine WBC 0-5 SEEN Ur Squamous Epith Cells 0 SEEN Urine Bacteria 0 SEEN Urine Mucus 0 SEEN Urine Opiates Screen NEGATIVE U Buprenorphine Qual NEGATIVE Ur Oxycodone Screen NEGATIVE Urine Methadone Screen PRESUMPTIVE POSITIVE Urine Fentanyl Screen PRESUMPTIVE POSITIVE Ur Barbiturates Screen PRESUMPTIVE POSITIVE Ur Phencyclidine Scrn NEGATIVE Ur Amphetamines Screen NEGATIVE U Benzodiazepines Scrn NEGATIVE Urine Cocaine Screen NEGATIVE U Cannabinoids Screen NEGATIVE Ethyl Alcohol 201.0 H Discharge Plan Triage Chief Complaint: Substance Abuse ED Provider: Micheline Andrews Dx/Rx/DC Orders Primary Care Provider: Care Physician,No Primary Referrals: Care Physician,No Primary [Primary Care Provider, Medical] Print Language: [place]
--- OUTSIDE RECORDS SUMMARY | 2025-05-29 11:47 | XMS RPT_ITS | CCD ---
Author Organization [facility] Care Team Providers Care Bender Machine Name Role Phone YU CRUMP Unavailable Unavailable NO FAMILY PHYSICIAN, 837 Unavailable Unavail able O'Day, Carmen S Unavailable Unavailable Physician, No Family Unavailable Unavailable Physician, No Family Unavailable Unavailable Maria Teresa Monaco Primary Care Provider Dante Billy Admitting Unavailable Dante Billy Attending Unavailable Tre, Will S Admitting Unavailable [place], Will S Attending Unavailable Tre, Will S Admitting Unavailable Tre, Will S Attending Unavailable Unavailable Primary Care Provider UnavailTelly Deleon Primary Care Provider [phone] Debbie, Telly Primary Care Provider [phone] Unavailable Primary Care Provider UnavailDAVID Silva Attending Unavailable Justin Pearce MD Primary Care Provider Karen Real Unavailable Unavailable TOMASA HOANG Attending Unavailable JUSTIN PEARCE Primary Care Unavailable SHEILA OLSON Attending Unavailable JUSTIN PEARCE Primary Care Unavailable MORALES JAIMES Attending Unavailable JUSTIN PEARCE Primary Care Unavailable [facility] Attending Doni post SYSTEM, PROVIDER NOT IN Referring UnavailJUSTIN Cano Primary Care Unavailable ROSALBA PARK Admitting Unavailable RICHARD PASTRANA Attending Unavailable [facility] Consulting JUSTIN Kahn Primary Care Unavailable Care Physician, No Primary Primary Care Provider Unavailable Dr. Dada Caballero DO Emergency Provider [phone] Tawanna INFANTE, Dr. Sujey Bolaños Admit Provider Tawanna INFANTE, Dr. Sujey Bolaños Attending Provider Tawanna INFANTE, Dr. Sujey Bolaños Other Provider Albaro INFANTE, Dr. Garibay Attending Provider Unavaila [...] Primary Primary Care Unava ilable Sujey Stacy Admitting Unavailable Sujey Stacy Attending Unavailable Sujey [...] sources) levETIRAcetam; Translations: [LEVETIRACETAM] Drug Allergy 04-03-2018 [facility] (1 source) levETIRAcetam Drug Allergy 02-17-2025 [facility] Repository Medications Current Medications Medication Drug Class(es) [...] mg docusate sodium 50 mg / sennosides, prison 8.6 mg oral tablet (1 source) Start: [...] PLACED TUBE OR TUBE less than 14 American. 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 Phoenix Irvin MD Status: ADM IN Ordering Dr: Dada Caballero DO Date: 0 02/17/25 Location: CO3 Sex: M C Admitted: 02/17/25 Test Reason : SUBSTANCE ABUSE Blood Pressure : */* mmHG Vent. Rate : 103 BPM Atrial Rate : 103 BPM P-R Int : 162 ms QRS Dur : 88 ms QT Int : 362 ms P-R-T Axes : 72 20 78 degrees QTcB Int : 474 ms Sinus tachycardia Otherwise normal ECG Confirmed by Bhavesh Castillo ([id number]), purchasing expeditor SHREYA REYES ([id number]) on 02/19/2025 6:44:10 AM Referred By: Confirmed By: Bhavesh Castillo 02/19/25 0644 Date _ Bhavesh Castillo MD CC: Dr. Phoenix Irvin MD; Dr. Dada Caballero DO; No Primary Care Physician ~ Signed [facility] Other Phone: Hepatitis B Surface Antibody on 02-18-2025 HEP B Surf Ab Non-Reactive Normal [facility] Comment on above: Order Comment: ABIDA Figueredo PREVIOUS SPECIMEN REJECTED DUE TO QNS. 05/23/24 0647 Bonilla Mejía Result Comment: <8.5 mIU/mL: Non-Reactive 8.5<= x <11.5 mIU/mL: Indeterminate >=11.5 mIU/mL: Reactive Non Reactive: Inconsistent with immunity less than <10 mIU/mL Reactive: Consistent with immunity greater than or equal to 10 mIU/mL Performed By: #### L 501.9520, L501.5200, L500.4050, L501.2300, L501.4700 #### [facility] Laboratory [address] [facility] [place], [address] Hepatitis C Antibodyon 02-18 Hepatitis C Ab REAC Normal Nonreactive [facility] Comment on above: Order Comment: REDRA W. [...] HCV Quant by PCR testing - HCVPCR #[id number] Non Reactive: < 0.8 Equivocal: >/= 0.8 to < 1.0 Reactive: >/= 1.0 The CDC requires that a reactive/equivocal HCV antibody result be sent out for confirmation. HCV Quant by PCR testing. Performed By: #### L 501.9520, L501.5200, L500.4050, L501.2300, L501.4700 #### [facility] Laboratory [address] [facility] [place], [address] L3890.6102on 02-18-2025 HEP B Surf Ag Non-Reactive Normal Nonreactive [facility] Comment on above: Order Comment: RED W. PREVIOUS SPECIMEN REJECTED DUE TO QNS. 05/23/2447 Bonilla Moore. Result Comment: Reac tive: Presumptive evidence of HBV. Repeatedly reactive samples must be confirmed using a neutralization test ([employer] HBsAg Confirmatory Test) Non-Reactive: HBsAg not detected; does not exclude the possibility of exposure to HBV Performed By: #### L 501.9520, L501.5200, L500.4050, L501.2300, L501.4700 #### [facility] Laboratory [address] [place], [address] 12 Lead EKGon 02-17-2025 12 Lead EKG [facility] Cardiovascular Services [address] [place] [address] 12 Lead EKG 02/17/25 2100 MR#: [id number] Acct: [id number] Name: YU YOUNGER Rep #: [id number] : 1990 34 From: Bhavesh Castillo MD [...] Otherwise normal ECG Confirmed by Bhavesh Castillo ([id number]), purchasing expeditor SHREYA REYES ([id number]) on 02/19/2025 6:44:10 AM Referred By: Confirmed By: Bhavesh Castillo 02/19/25 0644 Date Bhavesh Castillo MD CC: Dr. Phoenix Irvin MD; Dr. Dada Caballero DO; No Primary Care Physician Signed Normal [facility] Absolute lymphocyte countOrd ered By: Dada Caballero on 02-17-2025 Lymphocytes Auto (Unsp spec) [#/Vol] 1.72 10*3/uL 0.83-4.51 [facility] Absolute neutrophil countOrd ered By: Dada Caballero on 02-17-2025 Neutrophils (Bld) [#/Vol] 4.8 10*3/uL 2.0-7.7 [facility] Alcohol, Blood (Medical)-Ser umon 02-17-2025 SERUM ETOH 239.0 mg/dL High <=10.0 [facility] Comment on above: Result Comment: This test is for medical purposes only. The legal definition of intoxication varies according to local law. Performed By: #### L 500.2500, L501.9100, L505.5000, L100.0100 #### [facility] Laboratory [address] [place], [address] Anion gap in Serum or Plasma Ordered By: Dada Caballero on 02-17-2025 Anion gap [Moles/Vol] 15 mmol/L 5-15 [facility] Automated blood erythrocyte countOrdered By: Dada Caballero on 02-17-2025 RBC (Bld) [#/Vol] 4.43 10*6/uL Low 4.6-6.2 [facility] Comment on above: Performed By: #### L 500.2500, L501.9100, L505.5000, L100.0100 #### [facility] Laboratory [address] [place], [address] Automated blood hematocrit ( percentage)Ordered By: Dada Caballero on 02-17-2025 Hematocrit (Bld) [Volume fraction] 38.2 % Low 40-54 [facility] Comment on above: Performed By: #### L 500.2500, L501.9100, L505.5000, L100.0100 #### [facility] Laboratory [address] [place], [address] Automated lymphocyte count a s percentage of total leukocytesOrdered By: Dada Caballero on 02-17-2025 Lymphocytes/100 WBC Auto (Unsp spec) 24.4 % 19-41 [facility] BUN/creatinine ratioOrdered By: Dada Caballero on 02-17-2025 Urea nitrogen/Creatinine [Mass ratio] 8.1 mg/mg Low 10-20 [facility] Basic Metabolic Profile (BMP )on 02-17-2025 BUN/CRE 8.1 RATIO Low - [facility] Comment on above: Performed By: #### L 500.2500, L501.9100, L505.5000, L100.0100 #### [facility] Laboratory [address] [place], [address] ECRCL 102.09 ml/min Normal 50-250 [facility] Comment on above: Performed By: #### L 500.2500, L501.9100, L505.5000, L100.0100 #### [facility] Laboratory [address] [place], [address] GAP 15 Normal 5-15 [facility] Comment on above: Performed By: #### L 500.2500, L501.9100, L505.5000, L100.0100 #### [facility] Laboratory [address] [place], [address] Potassium [Moles/Vol] 3.4 mmol/L Normal 3.3-5.1 [facility] Comment on above: Performed By: #### L 500.2500, L501.9100, L505.5000, L100.0100 #### [facility] Laboratory [address] [place], [address] Basophil percentageOrdered B y: Dada Caballero on 02-17-2025 Basophils/100 WBC (Bld) 0.3 % Normal 0-1 [facility] Comment on above: Performed By: #### L 500.2500, L501.9100, L505.5000, L100.0100 #### [facility] Laboratory [address] [place], [address] CBC W/Diff, Automatedon Absolute Lymph 1.72 X10 3/uL Normal 0.83-4.51 [facility] Comment on above: Performed By: #### L 500.2500, L501.9100, L505.5000, L100.0100 #### [facility] Laboratory [address] [place], [address] Absolute Neut 4.8 X10 3/uL Normal 2.0-7.7 [facility] Comment on above: Performed By: #### L 500.2500, L501.9100, L505.5000, L100.0100 #### [facility] Laboratory [address] [place], [address] IG% 0.100 Normal 0.0-0.9 [facility] Comment on above: Result Comment: IG% - Immature Granulocytes (promyelocytes, myelocytes and metamyelocytes) > 1% indicates that a LEFT SHIFT is Present. Performed By: #### L 500.2500, L501.9100, L505.5000, L100.0100 #### [facility] Laboratory [address] [place], [address] Lymphocytes/100 WBC (Bld) 24.4 % Normal 19-41 [facility] Comment on above: Performed By: #### L 500.2500, L501.9100, L505.5000, L100.0100 #### [facility] Laboratory [address] [place], [address] Nucleated RBC (Bld) [#/Vol] 0 10*3/uL Normal 0-5 [facility] Comment on above: Performed By: #### L 500.2500, L501.9100, L505.5000, L100.0100 #### [facility] Laboratory [address] [place], [address] RDW SD 41.9 fl Normal 35.1-43.9 [facility] Comment on above: Performed By: #### L 500.2500, L501.9100, L505.5000, L100.0100 #### [facility] Laboratory [address] [place], [address] Carbon dioxide, total [Moles /volume] in Central venous bloodOrdered By: Dada Caballero on 02-17-2025 CO2 [Moles/Vol] 21.7 mmol/L Normal 21.0-32.0 [facility] Comment on above: Performed By: #### L 500.2500, L501.9100, L505.5000, L100.0100 #### [facility] Laboratory [address] [place], [address] Chloride assayOrdered By: Nazario Caballero on 02-17-2025 Chloride [Moles/Vol] 105 mmol/L Normal 98-108 [facility] Comment on above: Performed By: #### L 500.2500, L501.9100, L505.5000, L100.0100 #### [facility] Laboratory [address] [place], [address] Emergency Department Summary on 02-17-2025 Emergency Department Summary [facility] Medical Records Department [address] [place] [address] Emergency Department Summary 02/17/25 MR#: [id number] Acct: [id number] Name: YU YOUNGER Rep #: [id number] : 1990 34 From: Dada Caballero DO PCP: Care Physician,No Primary Status:ADM IN Location: [address] History of Present Illness Chief Complaint: [facility] Medical History (Updated 02/17/25 @ 22:[address] Sujey Stacy MD) Tobacco use Alcohol abuse Alcoholic pancreatitis Substance abuse Hx of renal calculi Home Medications ???Medication ???Instructions ???Recorded ???Last Taken ???Type methadone 10 mg tablet 100 mg PO DAILY 05/22/24 06/20/24 History Allergy/AdvReac Type Severity Reaction Status Date / Time levetiracetam (From [facility]) Allergy HIVES Verified 02/17/25 19:44 Family History [...] 100 99 Oxygen Delivery Method Room Air [facility] MDM Narrative Medical decision making narrative: HISTORY [...] signs showed (more content not included)... Normal [facility] Eosinophil percentageOrdered By: Dada Caballero on 02-17-2025 Eosinophils/100 WBC (Bld) 0.0 % Normal 0-5 [facility] Comment on above: Performed By: #### L 500.2500, L501.9100, L505.5000, L100.0100 #### [facility] Laboratory [address] [place], [place], [address] Erythrocyte distribution wid th ratioOrdered By: Dada Caballero on 02-17-2025 Erythrocyte distribution width (RBC) [Ratio] 13.4 % Normal 11.6-14.6 [facility] Comment on above: Performed By: #### L 500.2500, L501.9100, L505.5000, L100.0100 #### [facility] Laboratory [address] [facility] [place], [address] Erythrocyte distribution wid th standard deviationOrdered By: Dada Caballero on 02-17-2025 Erythrocyte distribution width (RBC) [Ratio] 41.9 fl 35.1-43.9 [facility] Glomerular filtration rate ( GFR) estimation/1.73 sq m using serum, plasma, or whole bOrdered By: Dada Caballero on 02-17-2025 GFR/1.73 sq M.predicted among non-blacks MDRD (S/P/Bld) [Vol rate/Area] 113 mL/min/{1.73_m2} Normal >60 [facility] Comment on above: mL/min/1.73m2 CKD-EP I Creatinine Equation (2020) Result Comment: mL/m in/1.73m2 CKD-EPI Creatinine Equation (2020) Performed By: #### L 500.2500, L501.9100, L505.5000, L100.0100 #### [facility] Laboratory [address] [facility] [place], [address] H AND P Exam - Hospitaliston 02-17-2025 H&P Exam - Hospitalist [facility] Medical Records Department [address] [place] [address] H P Exam - Hospitalist 02/17/252123 MR#: [id number] Acct: [id number] Name: YU YOUNGER Rep #: [id number] : 1990 34 From: Sujey Stacy MD PCP: Care Physician,No Primary Status:ADM IN Location: [facility] [id number] HPI - General General Date of Admission: [...] arrival), Tobacco use who presents to the [facility] ED on 02/17/2025 with ongoing substance abuse, [...] 1, phenobarbital 97.2 mg p.o. x 1. [facility] Medical History (Updated 02/17/25 @ 22:[address] Sujey Stacy MD) Tobacco use Alcohol abuse Alcoholic pancreatitis Substance abuse Hx of renal calculi Home Medications ???Medication ???Instructions ???Recorded ???Last Taken ???Type methadone 10 mg tablet 100 mg PO DAILY 05/22/24 06/20/24 History Allergy/AdvReac Type Severity Reaction Status Date / Time levetiracetam (From [facility]) Allergy HIVES Verified 02/17/25 19:44 Family History [...] occasional stag (more content not included)... Normal [facility] HIVon 02-17-2025 HIV Non-Reactive Normal Nonreactive [facility] Comment on above: Order Comment: ABIDA Figueredo [...] Order the HIV antibody detection and differentiation: [id number] Performed By: #### L 501.9520, L501.5200, L500.4050, L501.2300, L501.4700 #### [facility] Laboratory [facility] [place], [address] Hemoglobin measurementOrdere d By: Dada Caballero on 02-17-2025 Hemoglobin (Bld) [Mass/Vol] 13.2 g/dL Normal 13.0-16.5 [facility] Comment on above: Performed By: #### L 500.2500, L501.9100, L505.5000, L100.0100 #### [facility] Laboratory [address] [facility] [place], [address] Immature granulocytes/100 WB C Auto (Bld)Ordered By: Dada Caballero on 02-17-2025 Immature granulocytes/100 WBC (Bld) 0.100 % 0.0-0.9 [facility] Comment on above: IG% - Immature Granu locytes (promyelocytes, myelocytes and metamyelocytes) > 1% indicates that a LEFT SHIFT is Present. Laboratory - Microbiology an d Antimicrobial susceptibilityOrdered By: Sujey Stacy on 02-17-2025 HBV surface Ag Ql (S) Non-Reactive Nonreactive [facility] Comment on above: Reactive: Presumptiv e evidence of HBV. Repeatedly reactive samples must be confirmed using a neutralization test ([employer] HBsAg Confirmatory Test)Non-Reactive: HBsAg not detected; does not exclude the possibility of exposure to HBV MCV (mean corpuscular volume ) determinationOrdered By: Dada Caballero on 02-17-2025 MCV (RBC) [Entitic vol] 86.2 fL Normal 80-94 [facility] Comment on above: Performed By: #### L 500.2500, L501.9100, L505.5000, L100.0100 #### [facility] Laboratory [address] [facility] [place], [address] Magnesiumon 02-17-2025 Magnesium [Mass/Vol] 2.0 mg/dL Normal 1.5-2.2 [facility] Comment on above: Order Comment: ABIDA Figueredo PREVIOUS SPECIMEN REJECTED DUE TO QNS. 05/23/24 0647 Bonilla Moore. Performed By: #### L 501.9520, L501.5200, L500.4050, L501.2300, L501.4700 #### [facility] Laboratory [address] [facility] [place], [address] Magnesium measurement (mass/ volume)Ordered By: Sujey Stacy on 02-17-2025 Magnesium (Unsp spec) [Mass/Vol] 2.0 mg/dL 1.5-2.2 [facility] Mean corpuscular hemoglobin (MCH) determinationOrdered By: Dada Caballero on 02-17-2025 MCH (RBC) [Entitic mass] 29.8 pg Normal 27.0-32.0 [facility] Comment on above: Performed By: #### L 500.2500, L501.9100, L505.5000, L100.0100 #### [facility] Laboratory [address] [place], [address] Mean corpuscular hemoglobin concentration (MCHC) determinationOrdered By: Dada Caballero on 02-17-2025 MCHC (RBC) [Mass/Vol] 34.6 g/dL Normal 32-36 [facility] Comment on above: Performed By: #### L 500.2500, L501.9100, L505.5000, L100.0100 #### [facility] Laboratory [address] [place], [address] Mean platelet volume determi nationOrdered By: Dada Caballero on 02-17-2025 Platelet mean volume (Bld) [Entitic vol] 9.6 fL Normal 6.2-12.0 [facility] Comment on above: Performed By: #### L 500.2500, L501.9100, L505.5000, L100.0100 #### [facility] Laboratory [address] [place], [address] Monocyte percentageOrdered B y: Dada Caballero on 02-17-2025 Monocytes/100 WBC (Bld) 7.4 % Normal 0-10 [facility] Comment on above: Performed By: #### L 500.2500, L501.9100, L505.5000, L100.0100 #### [facility] Laboratory [address] [place], [address] Neutrophil percentageOrdered By: Dada Caballero on 02-17-2025 Neutrophils/100 WBC (Bld) 67.8 % Normal 47-70 [facility] Comment on above: Performed By: #### L 500.2500, L501.9100, L505.5000, L100.0100 #### [facility] Laboratory [address] [place], [address] No Panel InformationOrdered By: Sujey Stacy on 02-17-2025 HIV (1&2) Antibody Non-Reactive Nonreactive [facility] Comment on above: Non-ReactiveReactive Repeatedly reactive samples must be confirmed according to CDC recommended confirmatory algorithms. The subresults for either HIVAG or AHIV can be used as an aid in the selection of the confirmation algorithm for reactive samples.Send out specimens with Reactive results to [facility] for confirmation.Order the HIV antibody detection and differentiation: #[id number] Nucleated red blood cell per centageOrdered By: Dada Caballero on 02-17-2025 Nucleated RBC/100 WBC (Bld) [Ratio] 0 % 0-5 [facility] Phosphoruson 02-17-2025 Phosphate [Mass/Vol] 2.9 mg/dL Normal 2.7-4.5 [facility] Comment on above: Order Comment: ABIDA Figueredo PREVIOUS SPECIMEN REJECTED DUE TO QNS. 05/23/24 0647 Bonilla Mejía Performed By: #### L 501.9520, L501.5200, L500.4050, L501.2300, L501.4700 #### [facility] Laboratory [address] [place], [address] Platelet countOrdered By: Nazario Cablalero on 02-17-2025 Platelets (Bld) [#/Vol] 239 10*3/uL Normal 150-450 [facility] Comment on above: Performed By: #### L 500.2500, L501.9100, L505.5000, L100.0100 #### [facility] Laboratory [address] [place], [address] Potassium measurement (mass/ volume)Ordered By: Dada Caballero on 02-17-2025 Potassium (Unsp spec) [Mass/Vol] 3.4 mmol/L 3.3-5.1 [facility] Serum creatinine measurement (mass/volume)Ordered By: Dada Caballero on 02-17-2025 Creatinine [Mass/Vol] 0.91 mg/dL Normal 0.70-1.20 [facility] Comment on above: Performed By: #### L 500.2500, L501.9100, L505.5000, L100.0100 #### [facility] Laboratory [address] [place], [address] Serum glucose measurement (m ass/volume)Ordered By: Dada Caballero on 02-17-2025 Glucose [Mass/Vol] 128 mg/dL High 70-99 [facility] Comment on above: Performed By: #### L 500.2500, L501.9100, L505.5000, L100.0100 #### [facility] Laboratory [address] [place], [address] Serum hepatitis B virus surf kwasi antibody detectionOrdered By: Sujey Stacy on 02-17-2025 HBV surface Ab Ql (S) Non-Reactive [facility] Comment on above: <8.5 mIU/mL: Non-[place] ctive8.5<= x <11.5 mIU/mL: Indeterminate>=11.5 mIU/mL: Reactive Non Reactive: Inconsistent with immunity less than <10 mIU/mL Reactive: Consistent with immunity greater than or equal to 10 mIU/mL Serum or plasma calcium maggie urement (mass/volume)Ordered By: Dada Caballero on 02-17-2025 Calcium [Mass/Vol] 9.4 mg/dL Normal 7.6-11.0 [facility] Comment on above: Performed By: #### L 500.2500, L501.9100, L505.5000, L100.0100 #### [facility] Laboratory [address] [place], [address] Serum or plasma ethanol maggie urement (mass/volume)Ordered By: Dada Caballero on 02-17-2025 Ethanol [Mass/Vol] 239.0 mg/dL High <10.1 [facility] Comment on above: This test is for med ical purposes only. The legal definition of intoxication varies according to local law. Serum or plasma urea nitroge n measurement (mass/volume)Ordered By: Dada Caballero on 02-17-2025 Urea nitrogen [Mass/Vol] 7 mg/dL Normal 4-19 [facility] Comment on above: Performed By: #### L 500.2500, L501.9100, L505.5000, L100.0100 #### [facility] Laboratory [address] [place], [address] Sodium levelOrdered By: Margie Caballero on 02-17-2025 Sodium [Moles/Vol] 142 mmol/L Normal 133-145 [facility] Comment on above: Performed By: #### L 500.2500, L501.9100, L505.5000, L100.0100 #### [facility] [address] [place], [address] Syphilis Antibodieson 2024 Syphilis Abs Non-Reactive Normal Nonreactive [facility] Comment on above: Order Comment: ABIDA Figueredo PREVIOUS SPECIMEN REJECTED DUE TO QNS. 05/23/24 0647 Bonilla Mejía Performed By: #### L 501.9520, L501.5200, L500.4050, L501.2300, L501.4700 #### [facility] [address] [place], [address] Urine Drug Screen (VISTA)on 02-17-2025 AMPHETAMINES Normal <1000 ng/mL [facility] Comment on above: Result Comment: EPI ENT DISCHARGED 02/19/25, NO SPECIMEN COLLECTED Performed By: #### L 500.2500, L501.9100, L505.5000, L100.0100 #### [facility] [address] [place], [address] BARBITIURATES Normal < 200 ng/mL [facility] Comment on above: Result Comment: EPI ENT DISCHARGED 02/19/25, NO SPECIMEN COLLECTED Performed By: #### L 500.2500, L501.9100, L505.5000, L100.0100 #### [facility] [address] [place], [address] BENZODIAZIPINE Normal < 200 ng/mL [facility] Comment on above: Result Comment: EPI ENT DISCHARGED 02/19/25, NO SPECIMEN COLLECTED Performed By: #### L 500.2500, L501.9100, L505.5000, L100.0100 #### [facility] [address] [place], [address] BUP Ur Drug Scr Normal < 200 ng/mL [facility] Comment on above: Result Comment: EPI ENT DISCHARGED 02/19/25, NO SPECIMEN COLLECTED Performed By: #### L 500.2500, L501.9100, L505.5000, L100.0100 #### [facility] [address] [place], [address] COCAINE Normal < 300 ng/mL [facility] Comment on above: Result Comment: EPI ENT DISCHARGED 02/19/25, NO SPECIMEN COLLECTED Performed By: #### L 500.2500, L501.9100, L505.5000, L100.0100 #### [facility] [address] [place], [address] Fentanyl Normal <5 ng/mL [facility] Comment on above: Result Comment: EPI ENT DISCHARGED 02/19/25, NO SPECIMEN COLLECTED Performed By: #### L 500.2500, L501.9100, L505.5000, L100.0100 #### [facility] [address] [place], [address] METHADONE Normal < 300 ng/mL [facility] Comment on above: Result Comment: EPI ENT DISCHARGED 02/19/25, NO SPECIMEN COLLECTED Performed By: #### L 500.2500, L501.9100, L505.5000, L100.0100 #### [facility] [address] [place], [address] OPIATES Normal < 300 ng/mL [facility] Comment on above: Result Comment: EPI ENT DISCHARGED 02/19/25, NO SPECIMEN COLLECTED Performed By: #### L 500.2500, L501.9100, L505.5000, L100.0100 #### [facility] [address] [place], [address] OXYCODONE Normal < 100 ng/mL [facility] Comment on above: Result Comment: EPI ENT DISCHARGED 02/19/25, NO SPECIMEN COLLECTED Performed By: #### L 500.2500, L501.9100, L505.5000, L100.0100 #### [facility] [address] [place], [address] PCP Normal < 25 ng/mL [facility] Comment on above: Result Comment: EPI ENT DISCHARGED 02/19/25, NO SPECIMEN COLLECTED Performed By: #### L 500.2500, L501.9100, L505.5000, L100.0100 #### [facility] [address] [place], [address] THC Normal < 50 ng/mL [facility] Comment on above: Result Comment: EPI ENT DISCHARGED 02/19/25, NO SPECIMEN COLLECTED Performed By: #### L 500.2500, L501.9100, L505.5000, L100.0100 #### [facility] [address] [place], [address] White blood cell (WBC) count Ordered By: Dada Caballero on 02-17-2025 WBC (Bld) [#/Vol] 7.0 10*3/uL Normal 4.4-11.0 [facility] Comment on above: Performed By: #### L 500.2500, L501.9100, L505.5000, L100.0100 #### [facility] [address] [place], [address] CBC W/Diff, Automatedon - Absolute Lymph 2.08 X10 3/uL Normal 0.83-4.51 [facility] Comment on above: Performed By: #### L 501.9520, L501.5200, L500.4050, L501.2300, L501.4700 #### [facility] [address] [place], [address] Absolute Neut 2.4 X10 3/uL Normal 2.0-7.7 [facility] Comment on above: Performed By: #### L 501.9520, L501.5200, L500.4050, L501.2300, L501.4700 #### [facility] [address] [place], [address] Basophils/100 WBC (Bld) 0.6 % Normal 0-1 [facility] Comment on above: Performed By: #### L 501.9520, L501.5200, L500.4050, L501.2300, L501.4700 #### [facility] [address] [place], [address] Eosinophils/100 WBC (Bld) 1.4 % Normal 0-5 [facility] Comment on above: Performed By: #### L 501.9520, L501.5200, L500.4050, L501.2300, L501.4700 #### [facility] [address] [place], [address] Erythrocyte distribution width (RBC) [Ratio] 14.1 % Normal 11.6-14.6 [facility] Comment on above: Performed By: #### L 501.9520, L501.5200, L500.4050, L501.2300, L501.4700 #### [facility] [address] [place], [address] Hematocrit (Bld) [Volume fraction] 39.0 % Low 40-54 [facility] Comment on above: Performed By: #### L 501.9520, L501.5200, L500.4050, L501.2300, L501.4700 #### [facility] [address] [place], [address] Hemoglobin (Bld) [Mass/Vol] 13.1 g/dL Normal 13.0-16.5 [facility] Comment on above: Performed By: #### L 501.9520, L501.5200, L500.4050, L501.2300, L501.4700 #### [facility] [address] [place], [address] IG% 0.400 Normal 0.0-0.9 [facility] Comment on above: Result Comment: IG% - Immature Granulocytes (promyelocytes, myelocytes and metamyelocytes) > 1% indicates that a LEFT SHIFT is Present. Performed By: #### L 501.9520, L501.5200, L500.4050, L501.2300, L501.4700 #### [facility] [address] [place], [address] Lymphocytes/100 WBC (Bld) 41.2 % High 19-41 [facility] Comment on above: Performed By: #### L 501.9520, L501.5200, L500.4050, L501.2300, L501.4700 #### [facility] [address] [place], [address] MCH (RBC) [Entitic mass] 31.8 pg Normal 27.0-32.0 [facility] Comment on above: Performed By: #### L 501.9520, L501.5200, L500.4050, L501.2300, L501.4700 #### [facility] [address] [place], [address] MCHC (RBC) [Mass/Vol] 33.6 g/dL Normal 32-36 [facility] Comment on above: Performed By: #### L 501.9520, L501.5200, L500.4050, L501.2300, L501.4700 #### [facility] [address] [place], [address] MCV (RBC) [Entitic vol] 94.7 fL High 80-94 [facility] Comment on above: Performed By: #### L 501.9520, L501.5200, L500.4050, L501.2300, L501.4700 #### [facility] [address] [place], [address] Monocytes/100 WBC (Bld) 9.5 % Normal 0-10 [facility] Comment on above: Performed By: #### L 501.9520, L501.5200, L500.4050, L501.2300, L501.4700 #### [facility] [address] [place], [address] Neutrophils/100 WBC (Bld) 46.9 % Low 47-70 [facility] Comment on above: Performed By: #### L 501.9520, L501.5200, L500.4050, L501.2300, L501.4700 #### [facility] [address] [place], [address] Nucleated RBC (Bld) [#/Vol] 0 10*3/uL Normal 0-5 [facility] Comment on above: Performed By: #### L 501.9520, L501.5200, L500.4050, L501.2300, L501.4700 #### [facility] [address] [place], [address] Platelet mean volume (Bld) [Entitic vol] 11.5 fL Normal 6.2-12.0 [facility] Comment on above: Performed By: #### L 501.9520, L501.5200, L500.4050, L501.2300, L501.4700 #### [facility] [address] [place], [address] Platelets (Bld) [#/Vol] 153 10*3/uL Normal 150-450 [facility] Comment on above: Performed By: #### L 501.9520, L501.5200, L500.4050, L501.2300, L501.4700 #### [facility] [address] [place], [address] RBC (Bld) [#/Vol] 4.12 10*6/uL Low 4.6-6.2 [facility] Comment on above: Performed By: #### L 501.9520, L501.5200, L500.4050, L501.2300, L501.4700 #### [facility] [address] [place], [address] RDW SD 49.0 fl High 35.1-43.9 [facility] Comment on above: Performed By: #### L 501.9520, L501.5200, L500.4050, L501.2300, L501.4700 #### [facility] [address] [place], [address] WBC (Bld) [#/Vol] 5.1 10*3/uL Normal 4.4-11.0 [facility] Comment on above: Performed By: #### L 501.9520, L501.5200, L500.4050, L501.2300, L501.4700 #### [facility] [address] [place], [address] PLT EST SLT DEC Normal ADEQ [facility] Comment on above: Performed By: #### L 501.9520, L501.5200, L500.4050, L501.2300, L501.4700 #### [facility] [address] [place], [address] SMEAR COMMENT SCANNED Normal [facility] Comment on above: Performed By: #### L 501.9520, L501.5200, L500.4050, L501.2300, L501.4700 #### [facility] [address] [place], [address] Comprehensive Metabolic Prof ilon 07-17-2024 Albumin [Mass/Vol] 4.0 g/dL Normal 3.2-5.0 [facility] Comment on above: Performed By: #### L 501.9520, L501.5200, L500.4050, L501.2300, L501.4700 #### [facility] [address] [place], [address] Albumin/Globulin [Mass ratio] 1.1 {ratio} Normal 0.9-2.4 [facility] Comment on above: Performed By: #### L 501.9520, L501.5200, L500.4050, L501.2300, L501.4700 #### [facility] [address] [place], [address] ALK P 101 U/L Normal 45-117 [facility] Comment on above: Performed By: #### L 501.9520, L501.5200, L500.4050, L501.2300, L501.4700 #### [facility] [address] [place], [address] ALT [Catalytic activity/Vol] 25 U/L Normal 16-61 [facility] Comment on above: Performed By: #### L 501.9520, L501.5200, L500.4050, L501.2300, L501.4700 #### [facility] [address] [place], [address] AST [Catalytic activity/Vol] 31 U/L Normal 15-37 [facility] Comment on above: Result Comment: Slig ht Hemolysis, Result may be falsely increased. Performed By: #### L 501.9520, L501.5200, L500.4050, L501.2300, L501.4700 #### [facility] [address] [place], [address] Bilirubin [Mass/Vol] 0.70 mg/dL Normal 0.20-1.00 [facility] Comment on above: Result Comment: For patients on eltrombopag therapy, use of Dimension Yoder TBIL is not recommended. Performed By: #### L 501.9520, L501.5200, L500.4050, L501.2300, L501.4700 #### [facility] [address] [place], [address] BUN/CRE 12.5 RATIO Normal 10-20 [facility] Comment on above: Performed By: #### L 501.9520, L501.5200, L500.4050, L501.2300, L501.4700 #### [facility] [address] [place], [address] CA,Total 9.2 mg/dL Normal 8.5-10.1 [facility] Comment on above: Performed By: #### L 501.9520, L501.5200, L500.4050, L501.2300, L501.4700 #### [facility] [address] [place], [address] Chloride [Moles/Vol] 108 mmol/L High 98-107 [facility] Comment on above: Performed By: #### L 501.9520, L501.5200, L500.4050, L501.2300, L501.4700 #### [facility] [address] [place], [address] CO2 [Moles/Vol] 25.0 mmol/L Normal 21.0-32.0 [facility] Comment on above: Performed By: #### L 501.9520, L501.5200, L500.4050, L501.2300, L501.4700 #### [facility] [address] [place], [address] Creatinine [Mass/Vol] 0.88 mg/dL Normal 0.70-1.30 [facility] Comment on above: Result Comment: The validity of the calculated GFR GFRAA in patients over 70 years has not been determined. Clinical correlation is essential. Performed By: #### L 501.9520, L501.5200, L500.4050, L501.2300, L501.4700 #### [facility] [address] [place], [address] ECRCL 103.49 ml/min Normal [facility] Comment on above: Performed By: #### L 501.9520, L501.5200, L500.4050, L501.2300, L501.4700 #### [facility] [address] [place], [address] EST GFR - AA 127 mL/min Normal >60 [facility] Comment on above: Result Comment: Afri can [place] GFR Calc Performed By: #### L 501.9520, L501.5200, L500.4050, L501.2300, L501.4700 #### [facility] [address] [place], [address] GAP 8 Normal 5-15 [facility] Comment on above: Performed By: #### L 501.9520, L501.5200, L500.4050, L501.2300, L501.4700 #### [facility] [address] [place], [address] GFR/1.73 sq M.predicted among non-blacks MDRD (S/P/Bld) [Vol rate/Area] 105 mL/min/{1.73_m2} Normal >60 [facility] Comment on above: Result Comment: Non- GFR Calc Performed By: #### L 501.9520, L501.5200, L500.4050, L501.2300, L501.4700 #### [facility] [address] [place], [address] Globulin (S) [Mass/Vol] 3.5 g/dL Normal 2.2-4.2 [facility] Comment on above: Performed By: #### L 501.9520, L501.5200, L500.4050, L501.2300, L501.4700 #### [facility] [address] [place], [address] Glucose [Mass/Vol] 83 mg/dL Normal 74-106 [facility] Comment on above: Performed By: #### L 501.9520, L501.5200, L500.4050, L501.2300, L501.4700 #### [facility] [address] [place], [address] Potassium [Moles/Vol] 3.5 mmol/L Normal 3.5-5.1 [facility] Comment on above: Result Comment: Slig ht Hemolysis, Result may be falsely increased. Performed By: #### L 501.9520, L501.5200, L500.4050, L501.2300, L501.4700 #### [facility] [address] [place], [address] Sodium [Moles/Vol] 140 mmol/L Normal 136-145 [facility] Comment on above: Performed By: #### L 501.9520, L501.5200, L500.4050, L501.2300, L501.4700 #### [facility] [address] [place], [address] T PROT 7.5 g/dL Normal 6.4-8.2 [facility] Comment on above: Performed By: #### L 501.9520, L501.5200, L500.4050, L501.2300, L501.4700 #### [facility] [address] [place], [address] Urea nitrogen [Mass/Vol] 11 mg/dL Normal 7-18 [facility] Comment on above: Performed By: #### L 501.9520, L501.5200, L500.4050, L501.2300, L501.4700 #### [facility] [address] [place], [address] Emergency Department Summary on 07-17-2024 Emergency Department Summary [facility] Medical Records Department [address] [place] [address] Emergency Department Summary 07/17/24 MR#: [id number] Acct: [id number] Name: YU YOUNGER Rep #: [id number] : 1990 34 From: Jhonathan Brooke DO [...] after having a episode of alcoholic pancreatitis. [facility] Medical History Hx of renal calculi Pancreatitis Denies previous medical history Home Medications ???Medication ???Instructions ???Recorded ???Last Taken ???Type methadone 10 mg tablet 100 mg PO DAILY 05/22/24 06/20/24 History ondansetron HCl 8 mg tablet 8 mg PO Q8H PRN PRN Nausea 7 days 06/23/24 Unknown Rx #21 tabs Allergy/AdvReac Type Severity Reaction Status Date / Time levetiracetam (From [facility]) Allergy HIVES Verified 07/16/24 21:27 Family History [...] U Can (more content not included)... Normal [facility] H AND P Exam - Hospitaliston 07-17-2024 H&P Exam - Hospitalist [facility] Medical Records Department [address] [place] [address] H P Exam - Hospitalist 07/17/24 0100 MR#: [id number] Acct: [id number] Name: YU YOUNGER Rep #: [id number] : 1990 34 From: Phoenix Ramsey DO PCP: Care Physician,No Primary Status:ADM IN Location: [facility] [id number] HPI - General General Date of Admission: [...] history of renal calculi who presents to [facility] ER requesting opiate/polysubstance detox. Mr. Younger reports [...] is expected to extend beyond 2 midnights. [facility] Medical History (Updated 07/17/24 @ 01:52 [...] Reaction Status Date / Time levetiracetam (From [facility]) Allergy HIVES Verified 07/16/24 21:27 Family History [...] normal respiratory (more content not included)... Normal [facility] Alcohol, Blood (Medical)-Ser umon 07-16-2024 SERUM ETOH 4.0 mg/dL Normal [facility] Comment on above: Result Comment: The serum:whole blood ethanol ratio is approximately 1.14 and varies slightly with hematocrit. Medical Alcohol reference interval and critical value in non-tolerant individuals; 50 - 100 Impairment 100 Intoxication 100 - 250 Severe Poisoning 250 - 400 Deep/possible fatal coma Performed By: #### L 501.1968, L501.5200, L500.4050, L501.2300, L501.4700 #### [facility] [address] [place], [address] Urine Drug Screen (VISTA)on 07-16-2024 AMPHETAMINES Negative Normal <1000 ng/mL [facility] Comment on above: Performed By: #### L 501.9520, L501.5200, L500.4050, L501.2300, L501.4700 #### [facility] [address] [place], [address] BARBITIURATES Positive Abnormal < 200 ng/mL [facility] Comment on above: Performed By: #### L 501.9520, L501.5200, L500.4050, L501.2300, L501.4700 #### [facility] [address] [place], [address] BENZODIAZIPINE Negative Normal < 200 ng/mL [facility] Comment on above: Performed By: #### L 501.9520, L501.5200, L500.4050, L501.2300, L501.4700 #### [facility] [address] [place], [address] COCAINE Positive Abnormal < 300 ng/mL [facility] Comment on above: Performed By: #### L 501.9520, L501.5200, L500.4050, L501.2300, L501.4700 #### [facility] [address] [place], [address] ECSTACY Positive Abnormal < 500 ng/mL [facility] Comment on above: Performed By: #### L 501.9520, L501.5200, L500.4050, L501.2300, L501.4700 #### [facility] [address] [place], [address] METHADONE Positive Abnormal < 300 ng/mL [facility] Comment on above: Performed By: #### L 501.9520, L501.5200, L500.4050, L501.2300, L501.4700 #### [facility] [address] [place], [address] OPIATES Positive Abnormal < 300 ng/mL [facility] Comment on above: Performed By: #### L 501.9520, L501.5200, L500.4050, L501.2300, L501.4700 #### [facility] [address] [place], [address] PCP Negative Normal < 25 ng/mL [facility] Comment on above: Performed By: #### L 501.9520, L501.5200, L500.4050, L501.2300, L501.4700 #### [facility] [address] [place], [address] THC Positive Abnormal < 50 ng/mL [facility] Comment on above: Performed By: #### L 501.9520, L501.5200, L500.4050, L501.2300, L501.4700 #### [facility] [address] [place], [address] VISTA UDS PH 5 Normal [facility] Comment on above: Performed By: #### L 501.9520, L501.5200, L500.4050, L501.2300, L501.4700 #### [facility] [address] [place], [address] Discharge Instructionon Discharge Instruction [facility] Medical Records Department [address] [place] [address] Instructions for Home/Discharge Instructions 06/23/24 1043 MR#: [id number] Acct: [id number] Name: YU YOUNGER Rep #: [id number] : 1990 33 From: Majo Terrazas MD [...] MD; No Primary Care Physician Signed Normal [facility] Alcohol, Blood (Medical)-Ser umon 06-20-2024 SERUM ETOH 271.0 mg/dL Normal [facility] Comment on above: Result Comment: The serum:whole blood ethanol ratio is approximately 1.14 and varies slightly with hematocrit. Medical Alcohol reference interval and critical value in non-tolerant individuals; 50 - 100 Impairment 100 Intoxication 100 - 250 Severe Poisoning 250 - 400 Deep/possible fatal coma Performed By: #### L 501.1635, L501.5200, L500.4050, L501.2300, L501.4700 #### [facility] [address] [place], [address] CBC W/Diff, Automatedon Absolute Lymph 1.41 X10 3/uL Normal 0.83-4.51 [facility] Comment on above: Performed By: #### L 501.9520, L501.5200, L500.4050, L501.2300, L501.4700 #### [facility] Laboratory [address] [place], [address] Absolute Neut 2.1 X10 3/uL Normal 2.0-7.7 [facility] Comment on above: Performed By: #### L 501.9520, L501.5200, L500.4050, L501.2300, L501.4700 #### [facility] Laboratory [address] [place], [address] Basophils/100 WBC (Bld) 0.5 % Normal 0-1 [facility] Comment on above: Performed By: #### L 501.9520, L501.5200, L500.4050, L501.2300, L501.4700 #### [facility] Laboratory [address] [place], [address] Eosinophils/100 WBC (Bld) 0.5 % Normal 0-5 [facility] Comment on above: Performed By: #### L 501.9520, L501.5200, L500.4050, L501.2300, L501.4700 #### [facility] Laboratory [address] [place], [address] Erythrocyte distribution width (RBC) [Ratio] 15.0 % High 11.6-14.6 [facility] Comment on above: Performed By: #### L 501.9520, L501.5200, L500.4050, L501.2300, L501.4700 #### [facility] Laboratory [address] [place], [address] Hematocrit (Bld) [Volume fraction] 41.5 % Normal 40-54 [facility] Comment on above: Performed By: #### L 501.9520, L501.5200, L500.4050, L501.2300, L501.4700 #### [facility] Laboratory [address] [place], [address] Hemoglobin (Bld) [Mass/Vol] 13.8 g/dL Normal 13.0-16.5 [facility] Comment on above: Performed By: #### L 501.9520, L501.5200, L500.4050, L501.2300, L501.4700 #### [facility] Laboratory [address] [place], [address] IG% 0.300 Normal 0.0-0.9 [facility] Comment on above: Result Comment: IG% - Immature Granulocytes (promyelocytes, myelocytes and metamyelocytes) > 1% indicates that a LEFT SHIFT is Present. Performed By: #### L 501.9520, L501.5200, L500.4050, L501.2300, L501.4700 #### [facility] Laboratory [address] [place], [address] Lymphocytes/100 WBC (Bld) 35.3 % Normal 19-41 [facility] Comment on above: Performed By: #### L 501.9520, L501.5200, L500.4050, L501.2300, L501.4700 #### [facility] Laboratory [address] [place], [address] MCH (RBC) [Entitic mass] 31.8 pg Normal 27.0-32.0 [facility] Comment on above: Performed By: #### L 501.9520, L501.5200, L500.4050, L501.2300, L501.4700 #### [facility] Laboratory [address] [place], [address] MCHC (RBC) [Mass/Vol] 33.3 g/dL Normal 32-36 [facility] Comment on above: Performed By: #### L 501.9520, L501.5200, L500.4050, L501.2300, L501.4700 #### [facility] Laboratory [address] [place], [address] MCV (RBC) [Entitic vol] 95.6 fL High 80-94 [facility] Comment on above: Performed By: #### L 501.9520, L501.5200, L500.4050, L501.2300, L501.4700 #### [facility] Laboratory [address] [place], [address] Monocytes/100 WBC (Bld) 11.0 % High 0-10 [facility] Comment on above: Performed By: #### L 501.9520, L501.5200, L500.4050, L501.2300, L501.4700 #### [facility] Laboratory [address] [place], [address] Neutrophils/100 WBC (Bld) 52.4 % Normal 47-70 [facility] Comment on above: Performed By: #### L 501.9520, L501.5200, L500.4050, L501.2300, L501.4700 #### [facility] Laboratory [address] [place], [address] Nucleated RBC (Bld) [#/Vol] 0 10*3/uL Normal 0-5 [facility] Comment on above: Performed By: #### L 501.9520, L501.5200, L500.4050, L501.2300, L501.4700 #### [facility] Laboratory [address] [place], [address] Platelet mean volume (Bld) [Entitic vol] 11.6 fL Normal 6.2-12.0 [facility] Comment on above: Performed By: #### L 501.9520, L501.5200, L500.4050, L501.2300, L501.4700 #### [facility] Laboratory [address] [place], [address] Platelets (Bld) [#/Vol] 97 10*3/uL Low 150-450 [facility] Comment on above: Performed By: #### L 501.9520, L501.5200, L500.4050, L501.2300, L501.4700 #### [facility] Laboratory [address] [place], [address] RBC (Bld) [#/Vol] 4.34 10*6/uL Low 4.6-6.2 [facility] Comment on above: Performed By: #### L 501.9520, L501.5200, L500.4050, L501.2300, L501.4700 #### [facility] Laboratory [address] [place], [address] RDW SD 53.5 fl High 35.1-43.9 [facility] Comment on above: Performed By: #### L 501.9520, L501.5200, L500.4050, L501.2300, L501.4700 #### [facility] Laboratory [address] [place], [address] WBC (Bld) [#/Vol] 4.0 10*3/uL Low 4.4-11.0 [facility] Comment on above: Performed By: #### L 501.9520, L501.5200, L500.4050, L501.2300, L501.4700 #### [facility] Laboratory [address] [place], [address] Absolute Neut Normal 2.0-7.7 [facility] Comment on above: Result Comment: Jolly méndez via OM: Ordered Performed By: #### L 501.9520, L501.5200, L500.4050, L501.2300, L501.4700 #### [facility] Laboratory [address] [place], [address] HCT Normal 40-54 [facility] Comment on above: Result Comment: Canc elled via OM: MD Ordered Performed By: #### L 501.9520, L501.5200, L500.4050, L501.2300, L501.4700 #### [facility] Laboratory [address] [place], [address] HGB Normal 13.0-16.5 [facility] Comment on above: Result Comment: Canc elled via OM: MD Ordered Performed By: #### L 501.9520, L501.5200, L500.4050, L501.2300, L501.4700 #### [facility] Laboratory [address] [place], [address] MCH Normal 27.0-32.0 [facility] Comment on above: Result Comment: Canc elled via OM: MD Ordered Performed By: #### L 501.9520, L501.5200, L500.4050, L501.2300, L501.4700 #### [facility] Laboratory [address] [place], [address] MCHC Normal 32-36 [facility] Comment on above: Result Comment: Canc elled via OM: MD Ordered Performed By: #### L 501.9520, L501.5200, L500.4050, L501.2300, L501.4700 #### [facility] Laboratory [address] [place], [address] MCV Normal 80-94 [facility] Comment on above: Result Comment: Canc elled via OM: MD Ordered Performed By: #### L 501.9520, L501.5200, L500.4050, L501.2300, L501.4700 #### [facility] Laboratory [address] [place], [address] NEUT% Normal 47-70 [facility] Comment on above: Result Comment: Canc elled via OM: MD Ordered Performed By: #### L 501.9520, L501.5200, L500.4050, L501.2300, L501.4700 #### [facility] Laboratory [address] [place], [address] PLT Normal 150-450 [facility] Comment on above: Result Comment: Canc elled via OM: MD Ordered Performed By: #### L 501.9520, L501.5200, L500.4050, L501.2300, L501.4700 #### [facility] Laboratory [address] [place], [address] RBC Normal 4.6-6.2 [facility] Comment on above: Result Comment: Canc elled via OM: MD Ordered Performed By: #### L 501.9520, L501.5200, L500.4050, L501.2300, L501.4700 #### [facility] Laboratory [address] [place], [address] RDW CV Normal 11.6-14.6 [facility] Comment on above: Result Comment: Canc elled via OM: MD Ordered Performed By: #### L 501.9520, L501.5200, L500.4050, L501.2300, L501.4700 #### [facility] Laboratory [address] [place], [address] RDW SD Normal 35.1-43.9 [facility] Comment on above: Result Comment: Canc elled via OM: MD Ordered Performed By: #### L 501.9520, L501.5200, L500.4050, L501.2300, L501.4700 #### [facility] Laboratory [address] [place], [address] WBC Normal 4.4-11.0 [facility] Comment on above: Result Comment: Canc elled via OM: MD Ordered Performed By: #### L 501.9520, L501.5200, L500.4050, L501.2300, L501.4700 #### [facility] Laboratory [address] [place], [address] Comprehensive Metabolic Prof ilon 06-20-2024 Albumin [Mass/Vol] 3.4 g/dL Normal 3.2-5.0 [facility] Comment on above: Performed By: #### L 501.9520, L501.5200, L500.4050, L501.2300, L501.4700 #### [facility] Laboratory [address] [place], [address] Albumin/Globulin [Mass ratio] 0.7 {ratio} Low 0.9-2.4 [facility] Comment on above: Performed By: #### L 501.9520, L501.5200, L500.4050, L501.2300, L501.4700 #### [facility] Laboratory [address] [place], [address] ALK P 229 U/L High 45-117 [facility] Comment on above: Performed By: #### L 501.9520, L501.5200, L500.4050, L501.2300, L501.4700 #### [facility] Laboratory [address] [place], [address] ALT [Catalytic activity/Vol] 130 U/L High 16-61 [facility] Comment on above: Performed By: #### L 501.9520, L501.5200, L500.4050, L501.2300, L501.4700 #### [facility] Laboratory [address] [place], [address] AST [Catalytic activity/Vol] 430 U/L High 15-37 [facility] Comment on above: Result Comment: Mode rate Hemolysis, Result may be falsely increased. Performed By: #### L 501.9520, L501.5200, L500.4050, L501.2300, L501.4700 #### [facility] Laboratory [address] [place], [address] Bilirubin [Mass/Vol] 2.00 mg/dL High 0.20-1.00 [facility] Comment on above: Result Comment: For patients on eltrombopag therapy, use of Dimension Yoder TBIL is not recommended. Performed By: #### L 501.9520, L501.5200, L500.4050, L501.2300, L501.4700 #### [facility] Laboratory [address] [place], [address] BUN/CRE 7.0 RATIO Low 10-20 [facility] Comment on above: Performed By: #### L 501.9520, L501.5200, L500.4050, L501.2300, L501.4700 #### [facility] Laboratory [address] [place], [address] CA,Total 9.2 mg/dL Normal 8.5-10.1 [facility] Comment on above: Performed By: #### L 501.9520, L501.5200, L500.4050, L501.2300, L501.4700 #### [facility] Laboratory [address] [place], [address] Chloride [Moles/Vol] 101 mmol/L Normal 98-107 [facility] Comment on above: Performed By: #### L 501.9520, L501.5200, L500.4050, L501.2300, L501.4700 #### [facility] Laboratory [address] [place], [address] CO2 [Moles/Vol] 25.0 mmol/L Normal 21.0-32.0 [facility] Comment on above: Performed By: #### L 501.9520, L501.5200, L500.4050, L501.2300, L501.4700 #### [facility] Laboratory [address] [place], [address] Creatinine [Mass/Vol] 0.85 mg/dL Normal 0.70-1.30 [facility] Comment on above: Result Comment: The validity of the calculated GFR GFRAA in patients over 70 years has not been determined. Clinical correlation is essential. Performed By: #### L 501.9520, L501.5200, L500.4050, L501.2300, L501.4700 #### [facility] Laboratory [address] [place], [address] ECRCL 116.18 ml/min Normal [facility] Comment on above: Performed By: #### L 501.9520, L501.5200, L500.4050, L501.2300, L501.4700 #### [facility] Laboratory [address] [facility] [address] EST GFR - AA 132 mL/min Normal >60 [facility] Comment on above: Result Comment: Afri can [place] GFR Calc Performed By: #### L 501.9520, L501.5200, L500.4050, L501.2300, L501.4700 #### [facility] Laboratory [address] [place], [address] GAP 10 Normal 5-15 [facility] Comment on above: Performed By: #### L 501.9520, L501.5200, L500.4050, L501.2300, L501.4700 #### [facility] Laboratory [address] [place], [address] GFR/1.73 sq M.predicted among non-blacks MDRD (S/P/Bld) [Vol rate/Area] 109 mL/min/{1.73_m2} Normal >60 [facility] Comment on above: Result Comment: Non- GFR Calc Performed By: #### L 501.9520, L501.5200, L500.4050, L501.2300, L501.4700 #### [facility] Laboratory [address] [place], [address] Globulin (S) [Mass/Vol] 4.7 g/dL High 2.2-4.2 [facility] Comment on above: Performed By: #### L 501.9520, L501.5200, L500.4050, L501.2300, L501.4700 #### [facility] Laboratory [address] [place], [address] Glucose [Mass/Vol] 102 mg/dL Normal 74-106 [facility] Comment on above: Result Comment: Fast ing Glucose result from 100 to 125 mg/dL suggests IMPAIRED HOMEOSTASIS per A.D.A. criteria. Performed By: #### L 501.9520, L501.5200, L500.4050, L501.2300, L501.4700 #### [facility] Laboratory [address] [place], [address] Potassium [Moles/Vol] 3.8 mmol/L Normal 3.5-5.1 [facility] Comment on above: Result Comment: Mode rate Hemolysis, Result may be falsely increased. Performed By: #### L 501.9520, L501.5200, L500.4050, L501.2300, L501.4700 #### [facility] Laboratory [address] [place], [address] Sodium [Moles/Vol] 136 mmol/L Normal 136-145 [facility] Comment on above: Performed By: #### L 501.9520, L501.5200, L500.4050, L501.2300, L501.4700 #### [facility] Laboratory [address] [place], [address] T PROT 8.1 g/dL Normal 6.4-8.2 [facility] Comment on above: Performed By: #### L 501.9520, L501.5200, L500.4050, L501.2300, L501.4700 #### [facility] Laboratory [address] [place], [address] Urea nitrogen [Mass/Vol] 6 mg/dL Low 7-18 [facility] Comment on above: Performed By: #### L 501.9520, L501.5200, L500.4050, L501.2300, L501.4700 #### [facility] Laboratory [address] [place], [address] Emergency Department Summary on 06-20-2024 Emergency Department Summary [facility] Medical Records Department [address] [place] [address] Emergency Department Summary 06/20/24 MR#: [id number] Acct: [id number] Name: YU YOUNGER Rep #: [id number] : 1990 33 From: Enrique Schwartz MD PCP: Care Physician,No Primary Status:ADM IN Location: [place] [address] HPI History of Present Illness Chief Complaint: [...] Prior similar symptoms: Yes Recent Illness[facility]Hospital[facility] Medical History Hx of renal calculi Pancreatitis Denies previous medical history Home Medications ???Medication ???Instructions ???Recorded ???Last Taken ???Type methadone 10 mg tablet 100 mg PO DAILY 05/22/24 06/20/24 History Allergy/AdvReac Type Severity Reaction Status Date / Time levetiracetam (From [facility]) Allergy HIVES Verified 06/20/24 11:48 Surgical History [...] intact b (more content not included)... Normal [facility] H AND P Exam - [facility] 06-20-2024 H&P Exam - Hospitalist [facility] Medical Records Department [address] [place] [address] H P Exam - Hospitalist 06/20/24 1436 MR#: [id number] Acct: [id number] Name: YU YOUNGER Rep #: [id number] : 1990 33 From: David Mcguire MD PCP: Care Physician,No Primary Status:ADM IN Location: [facility] [id number] HPI - General General Date of Admission: [...] cannot be readmitted for another 60 days. [facility] Medical History Hx of renal calculi Pancreatitis Denies previous medical history Home Medications ???Medication ???Instructions ???Recorded ???Last Taken ???Type methadone 10 mg tablet 100 mg PO DAILY 05/22/24 06/20/24 History Allergy/AdvReac Type Severity Reaction Status Date / Time levetiracetam (From [facility]) Allergy HIVES Verified 06/20/24 11:48 Family History [...] % (Auto) 52.4, Lymph % (Auto) 35.3, Leake % (Auto) 11.0 H, Eos % (Auto) [...] requesting detox/eleva (more content not included)... Normal [facility] Urine Drug Screen (VISTA)on 06-20-2024 AMPHETAMINES Negative Normal <1000 ng/mL [facility] Comment on above: Performed By: #### L 501.9520, L501.5200, L500.4050, L501.2300, L501.4700 #### [facility] Laboratory [address] [place], [address] BARBITIURATES Positive Abnormal < 200 ng/mL [facility] Comment on above: Performed By: #### L 501.9520, L501.5200, L500.4050, L501.2300, L501.4700 #### [facility] Laboratory [address] [place], [address] BENZODIAZIPINE Negative Normal < 200 ng/mL [facility] Comment on above: Performed By: #### L 501.9520, L501.5200, L500.4050, L501.2300, L501.4700 #### [facility] Laboratory [address] [place], [address] COCAINE Negative Normal < 300 ng/mL [facility] Comment on above: Performed By: #### L 501.9520, L501.5200, L500.4050, L501.2300, L501.4700 #### [facility] Laboratory [address] [place], [address] ECSTACY Negative Normal < 500 ng/mL [facility] Comment on above: Performed By: #### L 501.9520, L501.5200, L500.4050, L501.2300, L501.4700 #### [facility] Laboratory [address] [place], [address] METHADONE Positive Abnormal < 300 ng/mL [facility] Comment on above: Performed By: #### L 501.9520, L501.5200, L500.4050, L501.2300, L501.4700 #### [facility] Laboratory [address] [place], [address] OPIATES Negative Normal < 300 ng/mL [facility] Comment on above: Performed By: #### L 501.9520, L501.5200, L500.4050, L501.2300, L501.4700 #### [facility] Laboratory [address] [place], [address] PCP Negative Normal < 25 ng/mL [facility] Comment on above: Performed By: #### L 501.9520, L501.5200, L500.4050, L501.2300, L501.4700 #### [facility] Laboratory [address] [place], [address] THC Positive Abnormal < 50 ng/mL [facility] Comment on above: Performed By: #### L 501.9520, L501.5200, L500.4050, L501.2300, L501.4700 #### [facility] Laboratory [address] [place], [address] VISTA UDS PH 6 Normal [facility] Comment on above: Performed By: #### L 501.9520, L501.5200, L500.4050, L501.2300, L501.4700 #### [facility] Laboratory [address] [place], [address] AMPHETAMINES Normal <1000 ng/mL [facility] Comment on above: Result Comment: DUPL ICATE ORDER. Performed By: #### L 501.9520, L501.5200, L500.4050, L501.2300, L501.4700 #### [facility] Laboratory [address] [place], [address] BARBITIURATES Normal < 200 ng/mL [facility] Comment on above: Result Comment: DUPL ICATE ORDER. Performed By: #### L 501.9520, L501.5200, L500.4050, L501.2300, L501.4700 #### [facility] Laboratory [address] [place], [address] BENZODIAZIPINE Normal < 200 ng/mL [facility] Comment on above: Result Comment: DUPL ICATE ORDER. Performed By: #### L 501.9520, L501.5200, L500.4050, L501.2300, L501.4700 #### [facility] Laboratory [address] [place], [place], [facility] COCAINE Normal < 300 ng/mL [facility] Comment on above: Result Comment: DUPL ICATE ORDER. Performed By: #### L 501.9520, L501.5200, L500.4050, L501.2300, L501.4700 #### [facility] Laboratory [address] [place], [place], [facility] DRUG CONFIRM Normal [facility] Comment on above: Result Comment: DUPL ICATE ORDER. Performed By: #### L 501.9520, L501.5200, L500.4050, L501.2300, L501.4700 #### [facility] Laboratory [address] [place], [facility] ECSTACY Normal < 500 ng/mL [facility] Comment on above: Result Comment: DUPL ICATE ORDER. Performed By: #### L 501.9520, L501.5200, L500.4050, L501.2300, L501.4700 #### [facility] Laboratory [address] [place], [place], [facility] METHADONE Normal < 300 ng/mL [facility] Comment on above: Result Comment: DUPL ICATE ORDER. Performed By: #### L 501.9520, L501.5200, L500.4050, L501.2300, L501.4700 #### [facility] Laboratory [address] [place], [address] OPIATES Normal < 300 ng/mL [facility] Comment on above: Result Comment: DUPL ICATE ORDER. Performed By: #### L 501.9520, L501.5200, L500.4050, L501.2300, L501.4700 #### [facility] Laboratory [address] [place], [address] PCP Normal < 25 ng/mL [facility] Comment on above: Result Comment: DUPL ICATE ORDER. Performed By: #### L 501.9520, L501.5200, L500.4050, L501.2300, L501.4700 #### [facility] Laboratory [address] [place], [address] THC Normal < 50 ng/mL [facility] Comment on above: Result Comment: DUPL ICATE ORDER. Performed By: #### L 501.9520, L501.5200, L500.4050, L501.2300, L501.4700 #### [facility] Laboratory [address] [place], [address] VISTA UDS PH Normal [facility] Comment on above: Result Comment: DUPL ICATE ORDER. Performed By: #### L 501.9520, L501.5200, L500.4050, L501.2300, L501.4700 #### [facility] [facility] [address] [place], [address] CBC W/Diff, Automatedon 12-0 9-2023 Absolute Lymph 0.96 X10 3/uL Normal 0.83-4.51 [facility] Comment on above: Performed By: #### L 100.0100 #### [facility] [address] [place], [address] Absolute Neut 2.0 X10 3/uL Normal 2.0-7.7 [facility] Comment on above: Performed By: #### L 100.0100 #### [facility] [address] [place], [address] Basophils/100 WBC (Bld) 0.3 % Normal 0-1 [facility] Comment on above: Performed By: #### L 100.0100 #### [facility] [address] [place], [address] Eosinophils/100 WBC (Bld) 1.1 % Normal 0-5 [facility] Comment on above: Performed By: #### L 100.0100 #### [facility] [address] [place], [address] Erythrocyte distribution width (RBC) [Ratio] 14.5 % Normal 11.6-14.6 [facility] Comment on above: Performed By: #### L 100.0100 #### [facility] [address] [place], [address] Hematocrit (Bld) [Volume fraction] 44.7 % Normal 40-54 [facility] Comment on above: Performed By: #### L 100.0100 #### [facility] [address] [place], [address] Hemoglobin (Bld) [Mass/Vol] 14.5 g/dL Normal 13.0-16.5 [facility] Comment on above: Performed By: #### L 100.0100 #### [facility] [address] [place], [address] IG% 0.300 Normal 0.0-0.9 [facility] Comment on above: Result Comment: IG% - Immature Granulocytes (promyelocytes, myelocytes and metamyelocytes) > 1% indicates that a LEFT SHIFT is Present. Performed By: #### L 100.0100 #### [facility] [address] [place], [address] Lymphocytes/100 WBC (Bld) 27.4 % Normal 19-41 [facility] Comment on above: Performed By: #### L 100.0100 #### [facility] [address] [place], [address] MCH (RBC) [Entitic mass] 31.6 pg Normal 27.0-32.0 [facility] Comment on above: Performed By: #### L 100.0100 #### [facility] [address] [place], [address] MCHC (RBC) [Mass/Vol] 32.4 g/dL Normal 32-36 [facility] Comment on above: Performed By: #### L 100.0100 #### [facility] [address] [place], [address] MCV (RBC) [Entitic vol] 97.4 fL High 80-94 [facility] Comment on above: Performed By: #### L 100.0100 #### [facility] [address] [place], [address] Monocytes/100 WBC (Bld) 13.7 % High 0-10 [facility] Comment on above: Performed By: #### L 100.0100 #### [facility] [address] [place], [address] Neutrophils/100 WBC (Bld) 57.2 % Normal 47-70 [facility] Comment on above: Performed By: #### L 100.0100 #### [facility] [address] [place], [address] Nucleated RBC (Bld) [#/Vol] 0 10*3/uL Normal 0-5 [facility] Comment on above: Performed By: #### L 100.0100 #### [facility] [address] [place], [address] Platelet mean volume (Bld) [Entitic vol] 9.8 fL Normal 6.2-12.0 [facility] Comment on above: Performed By: #### L 100.0100 #### [facility] [address] [place], [address] Platelets (Bld) [#/Vol] 95 10*3/uL Low 150-450 [facility] Comment on above: Performed By: #### L 100.0100 #### [facility] [address] [place], [address] RBC (Bld) [#/Vol] 4.59 10*6/uL Low 4.6-6.2 [facility] Comment on above: Performed By: #### L 100.0100 #### [facility] [address] [place], [address] RDW SD 50.4 fl High 35.1-43.9 [facility] Comment on above: Performed By: #### L 100.0100 #### [facility] [address] [place], [address] WBC (Bld) [#/Vol] 3.5 10*3/uL Low 4.4-11.0 [facility] Comment on above: Performed By: #### L 100.0100 #### [facility] [address] [place], [address] CBC W/Diff, Automatedon - PLT EST MOD DEC Normal ADEQ [facility] Comment on above: Performed By: #### L 501.9520, L501.5200, L500.4050, L501.2300, L501.4700 #### [facility] [address] [place], [address] SMEAR COMMENT SCANNED Normal [facility] Comment on above: Performed By: #### L 501.9520, L501.5200, L500.4050, L501.2300, L501.4700 #### [facility] [address] [place], [address] Comprehensive Metabolic Prof ilon 05-24-2024 Albumin [Mass/Vol] 3.1 g/dL Low 3.2-5.0 [facility] Comment on above: Performed By: #### L 501.9520, L501.5200, L500.4050, L501.2300, L501.4700 #### [facility] [address] [place], [address] Albumin/Globulin [Mass ratio] 0.8 {ratio} Low 0.9-2.4 [facility] Comment on above: Performed By: #### L 501.9520, L501.5200, L500.4050, L501.2300, L501.4700 #### [facility] [address] [place], [address] ALK P 211 U/L High 45-117 [facility] Comment on above: Performed By: #### L 501.9520, L501.5200, L500.4050, L501.2300, L501.4700 #### [facility] [address] [place], [address] ALT [Catalytic activity/Vol] 92 U/L High 16-61 [facility] Comment on above: Performed By: #### L 501.9520, L501.5200, L500.4050, L501.2300, L501.4700 #### [facility] [address] [place], [address] AST [Catalytic activity/Vol] 209 U/L High 15-37 [facility] Comment on above: Performed By: #### L 501.9520, L501.5200, L500.4050, L501.2300, L501.4700 #### [facility] [address] [place], [address] Bilirubin [Mass/Vol] 1.70 mg/dL High 0.20-1.00 [facility] Comment on above: Result Comment: For patients on eltrombopag therapy, use of Dimension Yoder TBIL is not recommended. Performed By: #### L 501.9520, L501.5200, L500.4050, L501.2300, L501.4700 #### [facility] [address] [place], [address] BUN/CRE 9.1 RATIO Low 10-20 [facility] Comment on above: Performed By: #### L 501.9520, L501.5200, L500.4050, L501.2300, L501.4700 #### [facility] [address] [place], [address] CA,Total 8.9 mg/dL Normal 8.5-10.1 [facility] Comment on above: Performed By: #### L 501.9520, L501.5200, L500.4050, L501.2300, L501.4700 #### [facility] [address] [place], [address] Chloride [Moles/Vol] 105 mmol/L Normal 98-107 [facility] Comment on above: Performed By: #### L 501.9520, L501.5200, L500.4050, L501.2300, L501.4700 #### [facility] [address] [place], [address] CO2 [Moles/Vol] 26.0 mmol/L Normal 21.0-32.0 [facility] Comment on above: Performed By: #### L 501.9520, L501.5200, L500.4050, L501.2300, L501.4700 #### [facility] [address] [place], [address] Creatinine [Mass/Vol] 0.77 mg/dL Normal 0.70-1.30 [facility] Comment on above: Result Comment: The validity of the calculated GFR GFRAA in patients over 70 years has not been determined. Clinical correlation is essential. Performed By: #### L 501.9520, L501.5200, L500.4050, L501.2300, L501.4700 #### [facility] [address] [place], [address] ECRCL 132.01 ml/min Normal [facility] Comment on above: Performed By: #### L 501.9520, L501.5200, L500.4050, L501.2300, L501.4700 #### [facility] [address] [place], [address] EST GFR - AA 149 mL/min Normal >60 [facility] Comment on above: Result Comment: Afri can [place] GFR Calc Performed By: #### L 501.9520, L501.5200, L500.4050, L501.2300, L501.4700 #### [facility] [address] [place], [address] GAP 7 Normal 5-15 [facility] Comment on above: Performed By: #### L 501.9520, L501.5200, L500.4050, L501.2300, L501.4700 #### [facility] [address] [place], [address] GFR/1.73 sq M.predicted among non-blacks MDRD (S/P/Bld) [Vol rate/Area] 123 mL/min/{1.73_m2} Normal >60 [facility] Comment on above: Result Comment: Non- GFR Calc Performed By: #### L 501.9520, L501.5200, L500.4050, L501.2300, L501.4700 #### [facility] [address] [place], [address] Globulin (S) [Mass/Vol] 4.0 g/dL Normal 2.2-4.2 [facility] Comment on above: Performed By: #### L 501.9520, L501.5200, L500.4050, L501.2300, L501.4700 #### [facility] [address] [place], [address] Glucose [Mass/Vol] 52 mg/dL Low 74-106 [facility] Comment on above: Performed By: #### L 501.9520, L501.5200, L500.4050, L501.2300, L501.4700 #### [facility] [address] [place], [address] Potassium [Moles/Vol] 4.2 mmol/L Normal 3.5-5.1 [facility] Comment on above: Performed By: #### L 501.9520, L501.5200, L500.4050, L501.2300, L501.4700 #### [facility] [address] [place], [address] Sodium [Moles/Vol] 138 mmol/L Normal 136-145 [facility] Comment on above: Performed By: #### L 501.9520, L501.5200, L500.4050, L501.2300, L501.4700 #### [facility] [address] [place], [address] T PROT 7.1 g/dL Normal 6.4-8.2 [facility] Comment on above: Performed By: #### L 501.9520, L501.5200, L500.4050, L501.2300, L501.4700 #### [facility] [address] [place], [address] Urea nitrogen [Mass/Vol] 7 mg/dL Normal 7-18 [facility] Comment on above: Performed By: #### L 501.9520, L501.5200, L500.4050, L501.2300, L501.4700 #### [facility] [address] [place], [address] Magnesiumon 05-24-2024 Magnesium [Mass/Vol] 1.7 mg/dL Normal 1.6-2.6 [facility] Comment on above: Performed By: #### L 501.9520, L501.5200, L500.4050, L501.2300, L501.4700 #### [facility] [address] [place], [address] Phosphoruson 05-24-2024 Phosphate [Mass/Vol] 2.5 mg/dL Normal 2.5-4.9 [facility] Comment on above: Performed By: #### L 501.9520, L501.5200, L500.4050, L501.2300, L501.4700 #### [facility] [address] [place], [address] Bilirubin, Directon 05-23-20 Bilirubin.direct [Mass/Vol] 0.56 mg/dL High 0.00-0.30 [facility] Comment on above: Order Comment: REDRA W. PREVIOUS SPECIMEN REJECTED DUE TO QNS. 05/23/24 0647 Bonilla Moore. Performed By: #### L 501.9520, L501.5200, L500.4050, L501.2300, L501.4700 #### [facility] [address] [place], [address] CBC W/Diff, Automatedon 12 Absolute Neut Normal 2.0-7.7 [facility] Comment on above: Order Comment: REDRA W. PREVIOUS SPECIMEN REJECTED DUE TO QNS. 05/23/24 0647 Bonilla Moore. Result Comment: NOT NEEDED BY DEJA MCCLURE MR Performed By: #### L 501.9520, L501.5200, L500.4050, L501.2300, L501.4700 #### [facility] [address] [place], [address] HCT Normal 40-54 [facility] Comment on above: Order Comment: REDRA W. PREVIOUS SPECIMEN REJECTED DUE TO QNS. 05/23/2447 Bonilla Moore. Result Comment: NOT NEEDED BY REN, JUST USE MR Performed By: #### L 501.9520, L501.5200, L500.4050, L501.2300, L501.4700 #### [facility] [address] [place], [address] HGB Normal 13.0-16.5 [facility] Comment on above: Order Comment: REDRA W. PREVIOUS SPECIMEN REJECTED DUE TO QNS. 05/23/2447 Bonilla R Moore. Result Comment: NOT NEEDED BY REN, JUST USE MR Performed By: #### L 501.9520, L501.5200, L500.4050, L501.2300, L501.4700 #### [facility] [address] [place], [address] MCH Normal 27.0-32.0 [facility] Comment on above: Order Comment: REDRA W. PREVIOUS SPECIMEN REJECTED DUE TO QNS. 05/23/24 06 Bonilla R Mooer. Result Comment: NOT NEEDED BY REN, JUST USE MR Performed By: #### L 501.9520, L501.5200, L500.4050, L501.2300, L501.4700 #### [facility] [address] [place], [address] MCHC Normal 32-36 [facility] Comment on above: Order Comment: REDRA W. PREVIOUS SPECIMEN REJECTED DUE TO QNS. 05/23/2447 Bonilla R Moore. Result Comment: NOT NEEDED BY REN, JUST USE MR Performed By: #### L 501.9520, L501.5200, L500.4050, L501.2300, L501.4700 #### [facility] [address] [place], [address] MCV Normal 80-94 [facility] Comment on above: Order Comment: REDRA W. PREVIOUS SPECIMEN REJECTED DUE TO QNS. 05/23/2447 Bonilla R Moore. Result Comment: NOT NEEDED BY EAFFOLTER, JUST USE MR Performed By: #### L 501.9520, L501.5200, L500.4050, L501.2300, L501.4700 #### [facility] [address] [place], [address] NEUT% Normal 47-70 [facility] Comment on above: Order Comment: REDRA W. PREVIOUS SPECIMEN REJECTED DUE TO QNS. 05/23/2447 Bonilla R Moore. Result Comment: NOT NEEDED BY REN, JUST USE MR Performed By: #### L 501.9520, L501.5200, L500.4050, L501.2300, L501.4700 #### [facility] [address] [place], [address] PLT Normal 150-450 [facility] Comment on above: Order Comment: REDRA W. PREVIOUS SPECIMEN REJECTED DUE TO QNS. 05/23/24 Bonilla R Moore. Result Comment: NOT NEEDED BY [facility], JUST USE MR Performed By: #### L 501.9520, L501.5200, L500.4050, L501.2300, L501.4700 #### [facility] [address] [place], [address] RBC Normal 4.6-6.2 [facility] Comment on above: Order Comment: REDRA W. PREVIOUS SPECIMEN REJECTED DUE TO QNS. 05/23/2447 Bonilla R Moore. Result Comment: NOT NEEDED BY REN, JUST USE MR Performed By: #### L 501.9520, L501.5200, L500.4050, L501.2300, L501.4700 #### [facility] [address] [place], [address] RDW CV Normal 11.6-14.6 [facility] Comment on above: Order Comment: REDRA W. PREVIOUS SPECIMEN REJECTED DUE TO QNS. 05/23/2447 Bonilla R Moore. Result Comment: NOT NEEDED BY REN, JUST USE MR Performed By: #### L 501.9520, L501.5200, L500.4050, L501.2300, L501.4700 #### [facility] [address] [place], [address] RDW SD Normal 35.1-43.9 [facility] Comment on above: Order Comment: REDRA W. PREVIOUS SPECIMEN REJECTED DUE TO QNS. 05/23/2447 Bonilla R Moore. Result Comment: NOT NEEDED BY REN, JUST USE MR Performed By: #### L 501.9520, L501.5200, L500.4050, L501.2300, L501.4700 #### [facility] [address] [place], [address] WBC Normal 4.4-11.0 [facility] Comment on above: Order Comment: REDRA W. PREVIOUS SPECIMEN REJECTED DUE TO QNS. 05/23/24 Bonilla R Moore. Result Comment: NOT NEEDED BY [facility], JUST USE MR Performed By: #### L 501.9520, L501.5200, L500.4050, L501.2300, L501.4700 #### [facility] [address] [place], [address] Absolute Lymph 1.59 X10 3/uL Normal 0.83-4.51 [facility] Comment on above: Order Comment: REDRA W. PREVIOUS SPECIMEN REJECTED DUE TO QNS. 05/23/2447 Bonilla R Moore. Performed By: #### L 501.9520, L501.5200, L500.4050, L501.2300, L501.4700 #### [facility] [address] [place], [address] Absolute Neut 1.6 X10 3/uL Low 2.0-7.7 [facility] Comment on above: Order Comment: REDRA W. PREVIOUS SPECIMEN REJECTED DUE TO QNS. 05/23/2447 Bonilla R Moore. Performed By: #### L 501.9520, L501.5200, L500.4050, L501.2300, L501.4700 #### [facility] [address] [place], [address] Basophils/100 WBC (Bld) 0.3 % Normal 0-1 [facility] Comment on above: Order Comment: REDRA W. PREVIOUS SPECIMEN REJECTED DUE TO QNS. 05/23/2447 Bonilla Vital Moore. Performed By: #### L 501.9520, L501.5200, L500.4050, L501.2300, L501.4700 #### [facility] [address] [place], [address] Eosinophils/100 WBC (Bld) 0.3 % Normal 0-5 [facility] Comment on above: Order Comment: REDRA W. PREVIOUS SPECIMEN REJECTED DUE TO QNS. 05/23/2447 Bonilla Vital Moore. Performed By: #### L 501.9520, L501.5200, L500.4050, L501.2300, L501.4700 #### [facility] [address] [place] [place], [address] Erythrocyte distribution width (RBC) [Ratio] 14.4 % Normal 11.6-14.6 [facility] Comment on above: Order Comment: REDRA W. PREVIOUS SPECIMEN REJECTED DUE TO QNS. 05/23/2447 Bonilla R Mooer. Performed By: #### L 501.9520, L501.5200, L500.4050, L501.2300, L501.4700 #### [facility] [address] [place], [address] Hematocrit (Bld) [Volume fraction] 41.2 % Normal 40-54 [facility] Comment on above: Order Comment: REDRA W. PREVIOUS SPECIMEN REJECTED DUE TO QNS. 05/23/2447 Bonilla R Moore. Performed By: #### L 501.9520, L501.5200, L500.4050, L501.2300, L501.4700 #### [facility] [address] [place], [address] Hemoglobin (Bld) [Mass/Vol] 13.4 g/dL Normal 13.0-16.5 [facility] Comment on above: Order Comment: REDRA W. PREVIOUS SPECIMEN REJECTED DUE TO QNS. 05/23/24 Bonilla R Moore. Performed By: #### L 501.9520, L501.5200, L500.4050, L501.2300, L501.4700 #### [facility] [address] [place], [address] IG% 0.300 Normal 0.0-0.9 [facility] Comment on above: Order Comment: REDRA W. PREVIOUS SPECIMEN REJECTED DUE TO QNS. 05/23/24 Bonilla R Moore. Result Comment: IG% - Immature Granulocytes (promyelocytes, myelocytes and metamyelocytes) > 1% indicates that a LEFT SHIFT is Present. Performed By: #### L 501.9520, L501.5200, L500.4050, L501.2300, L501.4700 #### [facility] [address] [place], [address] Lymphocytes/100 WBC (Bld) 43.8 % High 19-41 [facility] Comment on above: Order Comment: REDRA W. PREVIOUS SPECIMEN REJECTED DUE TO QNS. 05/23/2447 Bonilla R Moore. Performed By: #### L 501.9520, L501.5200, L500.4050, L501.2300, L501.4700 #### [facility] [address] [place], [address] MCH (RBC) [Entitic mass] 31.5 pg Normal 27.0-32.0 [facility] Comment on above: Order Comment: REDRA W. PREVIOUS SPECIMEN REJECTED DUE TO QNS. 05/23/24 Bonilla R Moore. Performed By: #### L 501.9520, L501.5200, L500.4050, L501.2300, L501.4700 #### [facility] [address] [place], [address] MCHC (RBC) [Mass/Vol] 32.5 g/dL Normal 32-36 [facility] Comment on above: Order Comment: REDRA W. PREVIOUS SPECIMEN REJECTED DUE TO QNS. 05/23/2447 Bonilla R Moore. Performed By: #### L 501.9520, L501.5200, L500.4050, L501.2300, L501.4700 #### [facility] [address] [place], [address] MCV (RBC) [Entitic vol] 96.7 fL High 80-94 [facility] Comment on above: Order Comment: REDRA W. PREVIOUS SPECIMEN REJECTED DUE TO QNS. 05/23/2447 Bonilla R Moore. Performed By: #### L 501.9520, L501.5200, L500.4050, L501.2300, L501.4700 #### [facility] [address] [place], [address] Monocytes/100 WBC (Bld) 12.1 % High 0-10 [facility] Comment on above: Order Comment: REDRA W. PREVIOUS SPECIMEN REJECTED DUE TO QNS. 05/23/2447 Bonilla R Moore. Performed By: #### L 501.9520, L501.5200, L500.4050, L501.2300, L501.4700 #### [facility] [address] [place], [address] Neutrophils/100 WBC (Bld) 43.2 % Low 47-70 [facility] Comment on above: Order Comment: REDRA W. PREVIOUS SPECIMEN REJECTED DUE TO QNS. 05/23/2447 Bonilla R Moore. Performed By: #### L 501.9520, L501.5200, L500.4050, L501.2300, L501.4700 #### [facility] [address] [place], [address] Nucleated RBC (Bld) [#/Vol] 0 10*3/uL Normal 0-5 [facility] Comment on above: Order Comment: REDRA W. PREVIOUS SPECIMEN REJECTED DUE TO QNS. 05/23/24646 Bonilla R Moore. Performed By: #### L 501.9520, L501.5200, L500.4050, L501.2300, L501.4700 #### [facility] [address] [place], [address] Platelet mean volume (Bld) [Entitic vol] 9.2 fL Normal 6.2-12.0 [facility] Comment on above: Order Comment: REDRA W. PREVIOUS SPECIMEN REJECTED DUE TO QNS. 05/23/2447 Bonilla R Moore. Performed By: #### L 501.9520, L501.5200, L500.4050, L501.2300, L501.4700 #### [facility] [address] [place], [address] Platelets (Bld) [#/Vol] 114 10*3/uL Low 150-450 [facility] Comment on above: Order Comment: REDRA W. PREVIOUS SPECIMEN REJECTED DUE TO QNS. 05/23/2447 Bonilla R Moore. Performed By: #### L 501.9520, L501.5200, L500.4050, L501.2300, L501.4700 #### [facility] [address] [place], [address] RBC (Bld) [#/Vol] 4.26 10*6/uL Low 4.6-6.2 [facility] Comment on above: Order Comment: REDRA W. PREVIOUS SPECIMEN REJECTED DUE TO QNS. 05/23/2447 Bonilla R Moore. Performed By: #### L 501.9520, L501.5200, L500.4050, L501.2300, L501.4700 #### [facility] [address] [place], [address] RDW SD 50.4 fl High 35.1-43.9 [facility] Comment on above: Order Comment: REDRA W. PREVIOUS SPECIMEN REJECTED DUE TO QNS. 05/23/2447 Bonilla R Moore. Performed By: #### L 501.9520, L501.5200, L500.4050, L501.2300, L501.4700 #### [facility] [address] [place], [address] WBC (Bld) [#/Vol] 3.6 10*3/uL Low 4.4-11.0 [facility] Comment on above: Order Comment: REDRA W. PREVIOUS SPECIMEN REJECTED DUE TO QNS. 05/23/2447 Bonilla R Moore. Performed By: #### L 501.9520, L501.5200, L500.4050, L501.2300, L501.4700 #### [facility] [address] [place], [address] Absolute Neut Normal 2.0-7.7 [facility] Comment on above: Result Comment: This specimen has been REJECTED due to Laboratory criteria: Quanity Not Sufficient. JVOJTUSH has been notified of need of recollection. 05/23/24641 Bonilla R Moore Performed By: #### L 501.9520, L501.5200, L500.4050, L501.2300, L501.4700 #### [facility] [address] [place], [address] HCT Normal 40-54 [facility] Comment on above: Result Comment: This specimen has been REJECTED due to Laboratory criteria: Quanity Not Sufficient. [facility] of recollection. 05/23/24641 Bonilla R Moore Performed By: #### L 501.9520, L501.5200, L500.4050, L501.2300, L501.4700 #### [facility] [address] [place], [address] HGB Normal 13.0-16.5 [facility] Comment on above: Result Comment: This specimen has been REJECTED due to Laboratory criteria: Quanity Not Sufficient. JVOJTUSH has been notified of need of recollection. 05/23/2442 Bonilla R Moore Performed By: #### L 501.9520, L501.5200, L500.4050, L501.2300, L501.4700 #### [facility] [address] [place], [address] MCH Normal 27.0-32.0 [facility] Comment on above: Result Comment: This specimen has been REJECTED due to Laboratory criteria: Quanity Not Sufficient. JVOJTUSH has been notified of need of recollection. 05/23/2442 Bonilla R Moore Performed By: #### L 501.9520, L501.5200, L500.4050, L501.2300, L501.4700 #### [facility] [address] [place], [address] MCHC Normal 32-36 [facility] Comment on above: Result Comment: This specimen has been REJECTED due to Laboratory criteria: Quanity Not Sufficient. JVOJTUSH has been notified of need of recollection. 05/23/2442 Bonilla R Moore Performed By: #### L 501.9520, L501.5200, L500.4050, L501.2300, L501.4700 #### [facility] [address] [place], [address] MCV Normal 80-94 [facility] Comment on above: Result Comment: This specimen has been REJECTED due to Laboratory criteria: Quanity Not Sufficient. JVOJTUSH has been notified of need of recollection. 05/23/2442 Bonilla R Moore Performed By: #### L 501.9520, L501.5200, L500.4050, L501.2300, L501.4700 #### [facility] [address] [place], [address] NEUT% Normal 47-70 [facility] Comment on above: Result Comment: This specimen has been REJECTED due to Laboratory criteria: Quanity Not Sufficient. [facility] has been notified of need of recollection. 05/23/24641 Bonilla R Moore Performed By: #### L 501.9520, L501.5200, L500.4050, L501.2300, L501.4700 #### [facility] [address] [place], [address] PLT Normal 150-450 [facility] Comment on above: Result Comment: This specimen has been REJECTED due to Laboratory criteria: Quanity Not Sufficient. [facility] has been notified of need of recollection. 05/23/24641 Bonilla R Moore Performed By: #### L 501.9520, L501.5200, L500.4050, L501.2300, L501.4700 #### [facility] [address] [place], [address] RBC Normal 4.6-6.2 [facility] Comment on above: Result Comment: This specimen has been REJECTED due to Laboratory criteria: Quanity Not Sufficient. [facility] has been notified of need of recollection. 05/23/24641 Bonilla R Moore Performed By: #### L 501.9520, L501.5200, L500.4050, L501.2300, L501.4700 #### [facility] [address] [place], [address] RDW CV Normal 11.6-14.6 [facility] Comment on above: Result Comment: This specimen has been REJECTED due to Laboratory criteria: Quanity Not Sufficient. [facility] has been notified of need of recollection. 05/23/24641 Bonilla R Moore Performed By: #### L 501.9520, L501.5200, L500.4050, L501.2300, L501.4700 #### [facility] [address] [place], [address] RDW SD Normal 35.1-43.9 [facility] Comment on above: Result Comment: This specimen has been REJECTED due to Laboratory criteria: Quanity Not Sufficient. FRAN has been notified of need of recollection. 05/23/24641 Bonilla R Moore Performed By: #### L 501.9520, L501.5200, L500.4050, L501.2300, L501.4700 #### [facility] [address] [place], [address] WBC Normal 4.4-11.0 [facility] Comment on above: Result Comment: This specimen has been REJECTED due to Laboratory criteria: Quanity Not Sufficient. FRAN has been notified of need of recollection. 05/23/2442 Bonilla R Moore Performed By: #### L 501.9520, L501.5200, L500.4050, L501.2300, L501.4700 #### [facility] [address] [place], [address] Comprehensive Metabolic Prof ilon 05-23-2024 Albumin [Mass/Vol] 3.3 g/dL Normal 3.2-5.0 [facility] Comment on above: Order Comment: RED W. PREVIOUS SPECIMEN REJECTED DUE TO QNS. 05/23/2447 Obnilla R Moore. Performed By: #### L 501.9520, L501.5200, L500.4050, L501.2300, L501.4700 #### [facility] [address] [place], [address] Albumin/Globulin [Mass ratio] 0.9 {ratio} Normal 0.9-2.4 [facility] Comment on above: Order Comment: ABIDA W. PREVIOUS SPECIMEN REJECTED DUE TO QNS. 05/23/2447 Bonilla R Moore. Performed By: #### L 501.9520, L501.5200, L500.4050, L501.2300, L501.4700 #### [facility] [address] [place], [address] ALK P 190 U/L High 45-117 [facility] Comment on above: Order Comment: REDRA W. PREVIOUS SPECIMEN REJECTED DUE TO QNS. 05/23/2447 Bonilla R Moore. Performed By: #### L 501.9520, L501.5200, L500.4050, L501.2300, L501.4700 #### [facility] [address] [place], [address] ALT [Catalytic activity/Vol] 98 U/L High 16-61 [facility] Comment on above: Order Comment: REDRA W. PREVIOUS SPECIMEN REJECTED DUE TO QNS. 05/23/2447 Bonilla R Moore. Performed By: #### L 501.9520, L501.5200, L500.4050, L501.2300, L501.4700 #### [facility] [address] [place], [address] AST [Catalytic activity/Vol] 203 U/L High 15-37 [facility] Comment on above: Order Comment: REDRA W. PREVIOUS SPECIMEN REJECTED DUE TO QNS. 05/23/2447 Bonilla R Moore. Performed By: #### L 501.9520, L501.5200, L500.4050, L501.2300, L501.4700 #### [facility] [address] [place], [address] Bilirubin [Mass/Vol] 1.00 mg/dL Normal 0.20-1.00 [facility] Comment on above: Order Comment: REDRA W. PREVIOUS SPECIMEN REJECTED DUE TO QNS. 05/23/2447 Bonilla R Moore. Result Comment: For patients on eltrombopag therapy, use of Dimension Yoder TBIL is not recommended. Performed By: #### L 501.9520, L501.5200, L500.4050, L501.2300, L501.4700 #### [facility] [address] [place], [address] BUN/CRE 9.1 RATIO Low 10-20 [facility] Comment on above: Order Comment: REDRA W. PREVIOUS SPECIMEN REJECTED DUE TO QNS. 05/23/2447 Bonilla R Moore. Performed By: #### L 501.9520, L501.5200, L500.4050, L501.2300, L501.4700 #### [facility] [address] [place], [address] CA,Total 8.4 mg/dL Low 8.5-10.1 [facility] Comment on above: Order Comment: REDRA W. PREVIOUS SPECIMEN REJECTED DUE TO QNS. 05/23/2447 Bonilla R Moore. Performed By: #### L 501.9520, L501.5200, L500.4050, L501.2300, L501.4700 #### [facility] [address] [place], [address] Chloride [Moles/Vol] 110 mmol/L High 98-107 [facility] Comment on above: Order Comment: REDRA W. PREVIOUS SPECIMEN REJECTED DUE TO QNS. 05/23/2447 Bonilla R Moore. Performed By: #### L 501.9520, L501.5200, L500.4050, L501.2300, L501.4700 #### [facility] [address] [place], [address] CO2 [Moles/Vol] 25.0 mmol/L Normal 21.0-32.0 [facility] Comment on above: Order Comment: REDRA W. PREVIOUS SPECIMEN REJECTED DUE TO QNS. 05/23/2447 Bonilla R Moore. Performed By: #### L 501.9520, L501.5200, L500.4050, L501.2300, L501.4700 #### [facility] [address] [place], [address] Creatinine [Mass/Vol] 0.77 mg/dL Normal 0.70-1.30 [facility] Comment on above: Order Comment: REDRA W. PREVIOUS SPECIMEN REJECTED DUE TO QNS. 05/23/2447 Bonilla R Moore. Result Comment: The validity of the calculated GFR GFRAA in patients over 70 years has not been determined. Clinical correlation is essential. Performed By: #### L 501.9520, L501.5200, L500.4050, L501.2300, L501.4700 #### [facility] [address] [place], [address] ECRCL 131.43 ml/min Normal [facility] Comment on above: Order Comment: REDRA W. PREVIOUS SPECIMEN REJECTED DUE TO QNS. 05/23/24 Bonilla R Moore. Performed By: #### L 501.9520, L501.5200, L500.4050, L501.2300, L501.4700 #### [facility] [address] [place], [address] EST GFR - AA 149 mL/min Normal >60 [facility] Comment on above: Order Comment: REDRA W. PREVIOUS SPECIMEN REJECTED DUE TO QNS. 05/23/2447 Bonilla R Moore. Result Comment: Afri can [place] GFR Calc Performed By: #### L 501.9520, L501.5200, L500.4050, L501.2300, L501.4700 #### [facility] [address] [place], [address] GAP 7 Normal 5-15 [facility] Comment on above: Order Comment: REDRA W. PREVIOUS SPECIMEN REJECTED DUE TO QNS. 05/23/2447 Bonilla R Moore. Performed By: #### L 501.9520, L501.5200, L500.4050, L501.2300, L501.4700 #### [facility] [address] [place], [address] GFR/1.73 sq M.predicted among non-blacks MDRD (S/P/Bld) [Vol rate/Area] 123 mL/min/{1.73_m2} Normal >60 [facility] Comment on above: Order Comment: ABIDA W. PREVIOUS SPECIMEN REJECTED DUE TO QNS. 05/23/2447 Bonilla R Moore. Result Comment: Non- GFR Calc Performed By: #### L 501.9520, L501.5200, L500.4050, L501.2300, L501.4700 #### [facility] [address] [place], [address] Globulin (S) [Mass/Vol] 3.7 g/dL Normal 2.2-4.2 [facility] Comment on above: Order Comment: ABIDA W. PREVIOUS SPECIMEN REJECTED DUE TO QNS. 05/23/24 47 Bonilla R Moore. Performed By: #### L 501.9520, L501.5200, L500.4050, L501.2300, L501.4700 #### [facility] [address] [place], [address] Glucose [Mass/Vol] 79 mg/dL Normal 74-106 [facility] Comment on above: Order Comment: ABIDA W. PREVIOUS SPECIMEN REJECTED DUE TO QNS. 05/23/2447 Bonilla R Moore. Performed By: #### L 501.9520, L501.5200, L500.4050, L501.2300, L501.4700 #### [facility] [address] [place], [address] Potassium [Moles/Vol] 3.5 mmol/L Normal 3.5-5.1 [facility] Comment on above: Order Comment: RED W. PREVIOUS SPECIMEN REJECTED DUE TO QNS. 05/23/2447 Bonilla R Moore. Performed By: #### L 501.9520, L501.5200, L500.4050, L501.2300, L501.4700 #### [facility] [address] [place], [address] Sodium [Moles/Vol] 142 mmol/L Normal 136-145 [facility] Comment on above: Order Comment: REDRA W. PREVIOUS SPECIMEN REJECTED DUE TO QNS. 05/23/2447 Bonilla R Moore. Performed By: #### L 501.9520, L501.5200, L500.4050, L501.2300, L501.4700 #### [facility] [address] [place], [address] T PROT 7.0 g/dL Normal 6.4-8.2 [facility] Comment on above: Order Comment: REDRA W. PREVIOUS SPECIMEN REJECTED DUE TO QNS. 05/23/24646 Bonilla R Moore. Performed By: #### L 501.9520, L501.5200, L500.4050, L501.2300, L501.4700 #### [facility] [address] [place], [address] Urea nitrogen [Mass/Vol] 7 mg/dL Normal 7-18 [facility] Comment on above: Order Comment: REDRA W. PREVIOUS SPECIMEN REJECTED DUE TO QNS. 05/23/24646 Bonilla R Moore. Performed By: #### L 501.9520, L501.5200, L500.4050, L501.2300, L501.4700 #### [facility] [address] [place], [address] BUN Normal 7-18 [facility] Comment on above: Result Comment: This specimen has been REJECTED due to Laboratory criteria: Quanity Not Sufficient. FRAN has been notified of need of recollection. 05/23/24645 Bonilla R Moore Performed By: #### L 501.9520, L501.5200, L500.4050, L501.2300, L501.4700 #### [facility] [address] [place], [address] BUN/CRE Normal 10-20 [facility] Comment on above: Result Comment: This specimen has been REJECTED due to Laboratory criteria: Quanity Not Sufficient. [facility]. 05/23/24645 Bonilla R Moore Performed By: #### L 501.9520, L501.5200, L500.4050, L501.2300, L501.4700 #### [facility] [address] [place], [address] CA,Total Normal 8.5-10.1 [facility] Comment on above: Result Comment: This specimen has been REJECTED due to Laboratory criteria: Quanity Not Sufficient. [facility] has been notified of need of recollection. 05/23/2446 Bonilla R Moore Performed By: #### L 501.9520, L501.5200, L500.4050, L501.2300, L501.4700 #### [facility] [address] [place], [address] CL Normal 98-107 [facility] Comment on above: Result Comment: This specimen has been REJECTED due to Laboratory criteria: Quanity Not Sufficient. [facility] has been notified of need of recollection. 05/23/2446 Bonilla R Moore Performed By: #### L 501.9520, L501.5200, L500.4050, L501.2300, L501.4700 #### [facility] [address] [place], [address] CO2 Normal 21.0-32.0 [facility] Comment on above: Result Comment: This specimen has been REJECTED due to Laboratory criteria: Quanity Not Sufficient. [facility] notified [facility] need of recollection. 05/23/2446 Bonilla R Moore Performed By: #### L 501.9520, L501.5200, L500.4050, L501.2300, L501.4700 #### [facility] [address] [place], [address] CREAT,SERUM Normal 0.70-1.30 [facility] Comment on above: Result Comment: This specimen has been REJECTED due to Laboratory criteria: Quanity Not Sufficient. [facility] has been notified of need of recollection. 05/23/2446 Bonilla R Moore Performed By: #### L 501.9520, L501.5200, L500.4050, L501.2300, L501.4700 #### [facility] [address] [place], [address] EST GFR Normal >60 [facility] Comment on above: Result Comment: This specimen has been REJECTED due to Laboratory criteria: Quanity Not Sufficient. [facility] has been notified of need of recollection. 05/23/24645 Bonilla R Moore Performed By: #### L 501.9520, L501.5200, L500.4050, L501.2300, L501.4700 #### [facility] [address] [place], [address] EST GFR - AA Normal >60 [facility] Comment on above: Result Comment: This specimen has been REJECTED due to Laboratory criteria: Quanity Not Sufficient. [facility] has been notified of need of recollection. 05/23/2446 Bonilla R Moore Performed By: #### L 501.9520, L501.5200, L500.4050, L501.2300, L501.4700 #### [facility] [address] [place], [address] GAP Normal 5-15 [facility] Comment on above: Result Comment: This specimen has been REJECTED due to Laboratory criteria: Quanity Not Sufficient. [facility] has been notified of need of recollection. 05/23/2446 Bonilla R Moore Performed By: #### L 501.9520, L501.5200, L500.4050, L501.2300, L501.4700 #### [facility] [address] [place], [address] GLU Normal 74-106 [facility] Comment on above: Result Comment: This specimen has been REJECTED due to Laboratory criteria: Quanity Not Sufficient. [facility] has been notified of need of recollection. 05/23/24645 Bonilla R Moore Performed By: #### L 501.9520, L501.5200, L500.4050, L501.2300, L501.4700 #### [facility] [address] [place], [address] Potassium Normal 3.5-5.1 [facility] Comment on above: Result Comment: This specimen has been REJECTED due to Laboratory criteria: Quanity Not Sufficient. [facility] has been notified of need of recollection. 05/23/24645 Bonilla R Moore Performed By: #### L 501.9520, L501.5200, L500.4050, L501.2300, L501.4700 #### [facility] [address] [place], [address] Comprehensive Metabolic Profil Normal 136-145 [facility] Comment on above: Result Comment: This specimen has been REJECTED due to Laboratory criteria: Quanity Not Sufficient. [facility] has been notified of need of recollection. 05/23/2446 Bonilla R Moore Performed By: #### L 501.9520, L501.5200, L500.4050, L501.2300, L501.4700 #### [facility] [address] [place], [address] Liver Profileon 05-23-2024 ALB Normal 3.2-5.0 [facility] Comment on above: Result Comment: This specimen has been REJECTED due to Laboratory criteria: Quanity Not Sufficient. [facility] has been notified of need of recollection. 05/23/2446 Bonilla R Moore Performed By: #### L 501.9520, L501.5200, L500.4050, L501.2300, L501.4700 #### [facility] [address] [place], [address] ALK P Normal 45-117 [facility] Comment on above: Result Comment: This specimen has been REJECTED due to Laboratory criteria: Quanity Not Sufficient. [facility] has been notified of need of recollection. 05/23/2446 Bonilla R Moore Performed By: #### L 501.9520, L501.5200, L500.4050, L501.2300, L501.4700 #### [facility] [address] [place], [address] ALT Normal 16-61 [facility] Comment on above: Result Comment: This specimen has been REJECTED due to Laboratory criteria: Quanity Not Sufficient. [facility] has been notified of need of recollection. 05/23/2446 Bonilla R Moore Performed By: #### L 501.9520, L501.5200, L500.4050, L501.2300, L501.4700 #### [facility] [address] [place], [address] AST Normal 15-37 [facility] Comment on above: Result Comment: This specimen has been REJECTED due to Laboratory criteria: Quanity Not Sufficient. [facility] has been notified of need of recollection. 05/23/2446 Bonilla R Moore Performed By: #### L 501.9520, L501.5200, L500.4050, L501.2300, L501.4700 #### [facility] [address] [place], [address] D BILI Normal 0.00-0.30 [facility] Comment on above: Result Comment: This specimen has been REJECTED due to Laboratory criteria: Quanity Not Sufficient. [facility] has been notified of need of recollection. 05/23/2446 Bonilla R Moore Performed By: #### L 501.9520, L501.5200, L500.4050, L501.2300, L501.4700 #### [facility] [address] [place], [address] T BILI Normal 0.20-1.00 [facility] Comment on above: Result Comment: This specimen has been REJECTED due to Laboratory criteria: Quanity Not Sufficient. [facility] has been notified of need of recollection. 05/23/24645 Bonilla R Moore Performed By: #### L 501.9520, L501.5200, L500.4050, L501.2300, L501.4700 #### [facility] [address] [place], [address] T PROT Normal 6.4-8.2 [facility] Comment on above: Result Comment: This specimen has been REJECTED due to Laboratory criteria: Quanity Not Sufficient. JVOJT[facility] has been notified of need of recollection. 05/23/2446 Bonilla R Moore Performed By: #### L 501.9520, L501.5200, L500.4050, L501.2300, L501.4700 #### [facility] [address] [place], [address] Magnesiumon 05-23-2024 Magnesium [Mass/Vol] 1.7 mg/dL Normal 1.6-2.6 [facility] Comment on above: Order Comment: RED W. PREVIOUS SPECIMEN REJECTED DUE TO QNS. 05/23/2447 Bonilla Moore. Performed By: #### L 501.9520, L501.5200, L500.4050, L501.2300, L501.4700 #### [facility] [address] [place], [address] Phosphoruson 05-23-2024 Phosphate [Mass/Vol] 2.5 mg/dL Normal 2.5-4.9 [facility] Comment on above: Order Comment: RED W. PREVIOUS SPECIMEN REJECTED DUE TO QNS. 05/23/24646 Bonilla R Moore. Performed By: #### L 501.9520, L501.5200, L500.4050, L501.2300, L501.4700 #### [facility] [address] [place], [address] Prothrombin Time w/INRon INR Coag (PPP) [Relative time] 1.2 {INR} Normal [facility] Comment on above: Performed By: #### L 501.9520, L501.5200, L500.4050, L501.2300, L501.4700 #### [facility] [address] [place], [address] PT Coag (PPP) [Time] 14.9 s Normal 11.7-14.9 [facility] Comment on above: Performed By: #### L 501.9520, L501.5200, L500.4050, L501.2300, L501.4700 #### [facility] [address] [place], [address] Thyroid Stim Hormone (TSH)on 05-23-2024 TSH 0.273 uIU/mL Low 0.358-3.740 [facility] Comment on above: Order Comment: REDRA W. PREVIOUS SPECIMEN REJECTED DUE TO QNS. 05/23/24 Bonilla R Moore. Performed By: #### L 501.9520, L501.5200, L500.4050, L501.2300, L501.4700 #### [facility] [address] [place], [address] Urinalysis, Completeon 05-23 RBC 0-5 SEEN Normal 0-5 [facility] Comment on above: Order Comment: REDRA W. PREVIOUS SPECIMEN REJECTED DUE TO QNS. 05/23/24 Bonilla R Moore. Performed By: #### L 501.9520, L501.5200, L500.4050, L501.2300, L501.4700 #### [facility] [address] [place], [address] BACTERIA 1+ /hpf Normal None Seen [facility] Comment on above: Order Comment: REDRA W. PREVIOUS SPECIMEN REJECTED DUE TO QNS. 05/23/24 Bonilla R Moore. Performed By: #### L 501.9520, L501.5200, L500.4050, L501.2300, L501.4700 #### [facility] [address] [place], [address] WBC 25-50 SEEN Normal 0-5 [facility] Comment on above: Order Comment: REDRA W. PREVIOUS SPECIMEN REJECTED DUE TO QNS. 05/23/24 Bonilla R Moore. Performed By: #### L 501.9520, L501.5200, L500.4050, L501.2300, L501.4700 #### [facility] [address] [place], [address] Mucus Ql (Urine sed) 1+ /hpf Normal [facility] Comment on above: Order Comment: REDRA W. PREVIOUS SPECIMEN REJECTED DUE TO QNS. 05/23/24 Bonilla R Moore. Performed By: #### L 501.9520, L501.5200, L500.4050, L501.2300, L501.4700 #### [facility] [address] [place], [address] EPI,SQUAMOUS 0 SEEN Normal 0-5 [facility] Comment on above: Order Comment: REDRA W. PREVIOUS SPECIMEN REJECTED DUE TO QNS. 05/23/24 Bonilla R Moore. Performed By: #### L 501.9520, L501.5200, L500.4050, L501.2300, L501.4700 #### [facility] [address] [place], [address] 12 Lead EKGon 05-22-2024 12 Lead EKG [facility] Cardiovascular Services [address] [place] [address] 12 Lead EKG 05/22/241951 MR#: [id number] Acct: [id number] Name: YU YOUNGER Rep #: [id number] : 1990 33 From: Bhavesh Castillo MD Attending Dr: Dr. Sorin Connell MD Status: ADM IN Ordering Dr: Paige Zamarripa Date: 05/22/24 Location: [facility] Sex: M C Admitted: 05/22/24 Test [...] Abnormal ECG Confirmed by Bhavesh Castillo ([id number]), purchasing expeditor SHREYA REYES ([id number]) on 05/25/2024 6:46:00 AM Referred By: Confirmed By: Bhavesh Castillo 05/25/24645 Date Bhavesh Castillo MD CC: Dr. Sorin Connell MD; RUEL Bowers; No Primary Care Physician Signed Normal [facility] Alcohol, Blood (Medical)-Ser on 05-22-2024 SERUM ETOH 363.0 mg/dL Invalid Interpretation Code [facility] Comment on above: Result Comment: Crit ical [...] Deep/possible fatal coma Performed By: #### L 501.9537, L501.5200, L500.4050, L501.2300, L501.4700 #### [facility] [address] [place], [address] Basic Metabolic Profile (BMP )on 05-22-2024 BUN/CRE 5.8 RATIO Low 10-20 [facility] Comment on above: Performed By: #### L 501.9520, L501.5200, L500.4050, L501.2300, L501.4700 #### [facility] [address] [place], [address] CA,Total 8.8 mg/dL Normal 8.5-10.1 [facility] Comment on above: Performed By: #### L 501.9520, L501.5200, L500.4050, L501.2300, L501.4700 #### [facility] [address] [place], [address] Chloride [Moles/Vol] 104 mmol/L Normal 98-107 [facility] Comment on above: Performed By: #### L 501.9520, L501.5200, L500.4050, L501.2300, L501.4700 #### [facility] [address] [place], [address] CO2 [Moles/Vol] 28.0 mmol/L Normal 21.0-32.0 [facility] Comment on above: Performed By: #### L 501.9520, L501.5200, L500.4050, L501.2300, L501.4700 #### [facility] [address] [place], [address] Creatinine [Mass/Vol] 1.03 mg/dL Normal 0.70-1.30 [facility] Comment on above: Result Comment: The validity of the calculated GFR GFRAA in patients over 70 years has not been determined. Clinical correlation is essential. Performed By: #### L 501.9520, L501.5200, L500.4050, L501.2300, L501.4700 #### [facility] [address] [place], [address] ECRCL 98.69 ml/min Normal [facility] Comment on above: Performed By: #### L 501.9520, L501.5200, L500.4050, L501.2300, L501.4700 #### [facility] [address] [place], [address] EST GFR - AA 106 mL/min Normal >60 [facility] Comment on above: Result Comment: Afri can Zimbabwean GFR Calc Performed By: #### L 501.9520, L501.5200, L500.4050, L501.2300, L501.4700 #### [facility] [address] [place], [address] GAP 10 Normal 5-15 [facility] Comment on above: Performed By: #### L 501.9520, L501.5200, L500.4050, L501.2300, L501.4700 #### [facility] [address] [place], [address] GFR/1.73 sq M.predicted among non-blacks MDRD (S/P/Bld) [Vol rate/Area] 88 mL/min/{1.73_m2} Normal >60 [facility] Comment on above: Result Comment: Non- GFR Calc Performed By: #### L 501.9520, L501.5200, L500.4050, L501.2300, L501.4700 #### [facility] [address] [place], [address] Glucose [Mass/Vol] 112 mg/dL High 74-106 [facility] Comment on above: Result Comment: Fast ing Glucose result from 100 to 125 mg/dL suggests IMPAIRED HOMEOSTASIS per A.D.A. criteria. Performed By: #### L 501.9520, L501.5200, L500.4050, L501.2300, L501.4700 #### [facility] [address] [place], [address] Potassium [Moles/Vol] 2.8 mmol/L Low 3.5-5.1 [facility] Comment on above: Performed By: #### L 501.9520, L501.5200, L500.4050, L501.2300, L501.4700 #### [facility] [address] [place], [address] Sodium [Moles/Vol] 141 mmol/L Normal 136-145 [facility] Comment on above: Performed By: #### L 501.9520, L501.5200, L500.4050, L501.2300, L501.4700 #### [facility] [address] [place], [address] Urea nitrogen [Mass/Vol] 6 mg/dL Low 7-18 [facility] Comment on above: Performed By: #### L 501.9520, L501.5200, L500.4050, L501.2300, L501.4700 #### [facility] [address] [place], [address] CBC W/Diff, Automatedon 12-0 Absolute Lymph 2.41 X10 3/uL Normal 0.83-4.51 [facility] Comment on above: Performed By: #### L 501.9520, L501.5200, L500.4050, L501.2300, L501.4700 #### [facility] [address] [place], [address] Absolute Neut 2.6 X10 3/uL Normal 2.0-7.7 [facility] Comment on above: Performed By: #### L 501.9520, L501.5200, L500.4050, L501.2300, L501.4700 #### [facility] [address] [place], [address] Basophils/100 WBC (Bld) 0.2 % Normal 0-1 [facility] Comment on above: Performed By: #### L 501.9520, L501.5200, L500.4050, L501.2300, L501.4700 #### [facility] [address] [place], [address] Eosinophils/100 WBC (Bld) 0.2 % Normal 0-5 [facility] Comment on above: Performed By: #### L 501.9520, L501.5200, L500.4050, L501.2300, L501.4700 #### [facility] [address] [place], [address] Erythrocyte distribution width (RBC) [Ratio] 14.5 % Normal 11.6-14.6 [facility] Comment on above: Performed By: #### L 501.9520, L501.5200, L500.4050, L501.2300, L501.4700 #### [facility] [address] [place], [address] Hematocrit (Bld) [Volume fraction] 43.2 % Normal 40-54 [facility] Comment on above: Performed By: #### L 501.9520, L501.5200, L500.4050, L501.2300, L501.4700 #### [facility] [address] [place], [address] Hemoglobin (Bld) [Mass/Vol] 14.4 g/dL Normal 13.0-16.5 [facility] Comment on above: Performed By: #### L 501.9520, L501.5200, L500.4050, L501.2300, L501.4700 #### [facility] [address] [place], [address] IG% 0.400 Normal 0.0-0.9 [facility] Comment on above: Result Comment: IG% - Immature Granulocytes (promyelocytes, myelocytes and metamyelocytes) > 1% indicates that a LEFT SHIFT is Present. Performed By: #### L 501.9520, L501.5200, L500.4050, L501.2300, L501.4700 #### [facility] [address] [place], [address] Lymphocytes/100 WBC (Bld) 42.4 % High 19-41 [facility] Comment on above: Performed By: #### L 501.9520, L501.5200, L500.4050, L501.2300, L501.4700 #### [facility] [address] [place], [address] MCH (RBC) [Entitic mass] 31.9 pg Normal 27.0-32.0 [facility] Comment on above: Performed By: #### L 501.9520, L501.5200, L500.4050, L501.2300, L501.4700 #### [facility] [address] [place], [address] MCHC (RBC) [Mass/Vol] 33.3 g/dL Normal 32-36 [facility] Comment on above: Performed By: #### L 501.9520, L501.5200, L500.4050, L501.2300, L501.4700 #### [facility] [address] [place], [address] MCV (RBC) [Entitic vol] 95.8 fL High 80-94 [facility] Comment on above: Performed By: #### L 501.9520, L501.5200, L500.4050, L501.2300, L501.4700 #### [facility] [address] [place], [address] Monocytes/100 WBC (Bld) 12.0 % High 0-10 [facility] Comment on above: Performed By: #### L 501.9520, L501.5200, L500.4050, L501.2300, L501.4700 #### [facility] [address] [place], [address] Neutrophils/100 WBC (Bld) 44.8 % Low 47-70 [facility] Comment on above: Performed By: #### L 501.9520, L501.5200, L500.4050, L501.2300, L501.4700 #### [facility] [address] [place], [address] Nucleated RBC (Bld) [#/Vol] 0 10*3/uL Normal 0-5 [facility] Comment on above: Performed By: #### L 501.9520, L501.5200, L500.4050, L501.2300, L501.4700 #### [facility] [address] [place], [address] Platelet mean volume (Bld) [Entitic vol] 9.4 fL Normal 6.2-12.0 [facility] Comment on above: Performed By: #### L 501.9520, L501.5200, L500.4050, L501.2300, L501.4700 #### [facility] [address] [place], [address] Platelets (Bld) [#/Vol] 144 10*3/uL Low 150-450 [facility] Comment on above: Performed By: #### L 501.9520, L501.5200, L500.4050, L501.2300, L501.4700 #### [facility] [address] [place], [address] RBC (Bld) [#/Vol] 4.51 10*6/uL Low 4.6-6.2 [facility] Comment on above: Performed By: #### L 501.9520, L501.5200, L500.4050, L501.2300, L501.4700 #### [facility] [address] [place], [address] RDW SD 49.5 fl High 35.1-43.9 [facility] Comment on above: Performed By: #### L 501.9520, L501.5200, L500.4050, L501.2300, L501.4700 #### [facility] [address] [place], [address] WBC (Bld) [#/Vol] 5.7 10*3/uL Normal 4.4-11.0 [facility] Comment on above: Performed By: #### L 501.9520, L501.5200, L500.4050, L501.2300, L501.4700 #### [facility] [address] [place], [address] Comprehensive Metabolic Prof [facility] 05-22-2024 Albumin [Mass/Vol] 4.2 g/dL Normal 3.2-5.0 [facility] Comment on above: Performed By: #### L 501.9520, L501.5200, L500.4050, L501.2300, L501.4700 #### [facility] [address] [place], [address] Albumin/Globulin [Mass ratio] 0.9 {ratio} Normal 0.9-2.4 [facility] Comment on above: Performed By: #### L 501.9520, L501.5200, L500.4050, L501.2300, L501.4700 #### [facility] [address] [place], [address] ALK P 243 U/L High 45-117 [facility] Comment on above: Performed By: #### L 501.9520, L501.5200, L500.4050, L501.2300, L501.4700 #### [facility] [address] [place], [address] ALT [Catalytic activity/Vol] 133 U/L High 16-61 [facility] Comment on above: Performed By: #### L 501.9520, L501.5200, L500.4050, L501.2300, L501.4700 #### [facility] [address] [place], [address] AST [Catalytic activity/Vol] 290 U/L High 15-37 [facility] Comment on above: Performed By: #### L 501.9520, L501.5200, L500.4050, L501.2300, L501.4700 #### [facility] [address] [place], [address] Bilirubin [Mass/Vol] 1.00 mg/dL Normal 0.20-1.00 [facility] Comment on above: Result Comment: For patients on eltrombopag therapy, use of Dimension Yoder TBIL is not recommended. Performed By: #### L 501.9520, L501.5200, L500.4050, L501.2300, L501.4700 #### [facility] [address] [place], [address] Globulin (S) [Mass/Vol] 4.7 g/dL High 2.2-4.2 [facility] Comment on above: Performed By: #### L 501.9520, L501.5200, L500.4050, L501.2300, L501.4700 #### [facility] [address] [place], [address] T PROT 8.9 g/dL High 6.4-8.2 [facility] Comment on above: Performed By: #### L 501.9520, L501.5200, L500.4050, L501.2300, L501.4700 #### [facility] [address] [place], [address] Emergency Department Summary on 05-22-2024 Emergency Department Summary [facility] Medical Records Department [address] [place] [address] Emergency Department Summary 05/22/24 MR#: [id number] Acct: [id number] Name: YU YOUNGER Rep #: [id number] : 1990 33 From: Drake Rader PCP: Care Physician,No Primary Status:ADM IN Location: [address] History of Present Illness Chief Complaint: [...] 2 weeks ago and was admitted to [facility] for several days. Since then his abdominal pain has decreased. He vomited once this morning but denies hematemesis. He states his stool occasionally looks dark but he thinks it is from Pepto-Bismol. He has no history of withdrawal seizures. He takes methadone. [facility] Medical History (Updated 05/22/24 @ 23:[address] Drake Mccartney DO) Hx of renal calculi Pancreatitis Denies previous medical history Home Medications ???Medication ???Instructions ???Recorded ???Last Taken ???Type methadone 10 mg tablet 100 mg PO DAILY 05/22/24 Unknown History Allergy/AdvReac Type Severity Reaction Status Date / Time levetiracetam (From [facility]) Allergy HIVES Verified 05/22/24 14:54 Surgical History [...] Ox 100 Oxygen Delivery Method Room Air [facility] Narrative Medical decision making narrative: Patient is [...] Nonspecific T wave abnormality QTc 459 ms [facility] Narrative Medical decision making narrative: Patient is [...] face asse (more content not included)... Normal [facility] H AND P Exam - Hospitaliston 05-22-2024 H&P Exam - Hospitalist [facility] Medical Records Department [address] [place] [address] H P Exam - Hospitalist 05/22/24 1950 MR#: [id number] Acct: [id number] Name: YU YOUNGER Rep #: [id number] : 1990 33 From: Phoenix Ramsey DO PCP: Care Physician,No Primary Status:ADM IN Location: [place] [address] HPI - General General Date of Admission: 05/22/24 Date of Service: 05/22/24 Chief Complaint: Wants Help with EtOH Detox. HPI Narrative YU YOUNGER, is a 33 M with a past medical history of tobacco abuse, history of heroin abuse (IV and snorting); on methadone 100 mg p.o. daily followed by the [facility], history of cannabis abuse, chronic alcohol abuse; with patient admitting to drinking 12 pints of 13% alcohol daily, history of admission here for detoxification from heroin and alcohol (2020), history of alcoholic pancreatitis, history of depression and anxiety, listed allergy to levetiracetam; (hives), history of renal calculi and history of alcoholic pancreatitis with admission to hospital in [facility] for several days 2 weeks ago who presents to [facility] ER complaining of wanting help with alcohol detoxification. Mr. Younger reports he has been heavily drinking since November 2023 and he has experienced worsening abdominal pain since his recent discharge from [facility] due to continued alcohol abuse with his [...] is expected to extend beyond 2 midnights. [facility] Medical History Hx of renal calculi Pancreatitis Denies previous medical history Home Medications ???Medication ???Instructions ???Recorded ???Last Taken ???Type methadone 10 mg tablet 100 mg PO DAILY 05/22/24 Unknown History Allergy/AdvReac Type Severity Reaction Status Date / Time levetiracetam (From [facility]) Allergy HIVES Verified 05/22/24 14:54 Surgical History [...] HEENT normocephal (more content not included)... Normal [facility] Lipaseon 05-22-2024 Lipase [Catalytic activity/Vol] 79 U/L High 13-75 [facility] Comment on above: Result Comment: Lisbeth stone note: LIPASE revised reference range effective 22. New Lipase methodology. Expected to produce lower values than the previous assay method. NEW Reference Range: 13 - 75 U/L Performed By: #### L 501.9520, L501.5200, L500.4050, L501.2300, L501.4700 #### [facility] [address] [place], [address] Liver Profileon 05-22-2024 Albumin [Mass/Vol] 4.3 g/dL Normal 3.2-5.0 [facility] Comment on above: Performed By: #### L 501.9520, L501.5200, L500.4050, L501.2300, L501.4700 #### [facility] [address] [place], [address] ALK P 246 U/L High 45-117 [facility] Comment on above: Performed By: #### L 501.9520, L501.5200, L500.4050, L501.2300, L501.4700 #### [facility] [address] [place], [address] ALT [Catalytic activity/Vol] 133 U/L High 16-61 [facility] Comment on above: Performed By: #### L 501.9520, L501.5200, L500.4050, L501.2300, L501.4700 #### [facility] [address] [place], [address] AST [Catalytic activity/Vol] 286 U/L High 15-37 [facility] Comment on above: Performed By: #### L 501.9520, L501.5200, L500.4050, L501.2300, L501.4700 #### [facility] [address] [place], [address] Bilirubin [Mass/Vol] 1.00 mg/dL Normal 0.20-1.00 [facility] Comment on above: Result Comment: For patients on eltrombopag therapy, use of Dimension Yoder TBIL is not recommended. Performed By: #### L 501.9520, L501.5200, L500.4050, L501.2300, L501.4700 #### [facility] [address] [place], [address] Bilirubin.direct [Mass/Vol] 0.61 mg/dL High 0.00-0.30 [facility] Comment on above: Performed By: #### L 501.9520, L501.5200, L500.4050, L501.2300, L501.4700 #### [facility] [address] [place], [address] Globulin (S) [Mass/Vol] 4.6 g/dL High 2.2-4.2 [facility] Comment on above: Performed By: #### L 501.9520, L501.5200, L500.4050, L501.2300, L501.4700 #### [facility] [address] [place], [address] T PROT 8.9 g/dL High 6.4-8.2 [facility] Comment on above: Performed By: #### L 501.9520, L501.5200, L500.4050, L501.2300, L501.4700 #### [facility] [address] [place], [address] Urine Drug Screen (VISTA)on 05-22-2024 AMPHETAMINES Negative Normal <1000 ng/mL [facility] Comment on above: Performed By: #### L 501.9520, L501.5200, L500.4050, L501.2300, L501.4700 #### [facility] [address] [place], [address] BARBITIURATES Positive Abnormal < 200 ng/mL [facility] Comment on above: Performed By: #### L 501.9520, L501.5200, L500.4050, L501.2300, L501.4700 #### [facility] [address] [place], [address] BENZODIAZIPINE Negative Normal < 200 ng/mL [facility] Comment on above: Performed By: #### L 501.9520, L501.5200, L500.4050, L501.2300, L501.4700 #### [facility] [address] [place], [place], [facility] COCAINE Negative Normal < 300 ng/mL [facility] Comment on above: Performed By: #### L 501.9520, L501.5200, L500.4050, L501.2300, L501.4700 #### [facility] [address] [place], [address] ECSTACY Negative Normal < 500 ng/mL [facility] Comment on above: Performed By: #### L 501.9520, L501.5200, L500.4050, L501.2300, L501.4700 #### [facility] [address] [place], [address] METHADONE Positive Abnormal < 300 ng/mL [facility] Comment on above: Performed By: #### L 501.9520, L501.5200, L500.4050, L501.2300, L501.4700 #### [facility] [address] [place], [address] OPIATES Negative Normal < 300 ng/mL [facility] Comment on above: Performed By: #### L 501.9520, L501.5200, L500.4050, L501.2300, L501.4700 #### [facility] [address] [place], [address] PCP Negative Normal < 25 ng/mL [facility] Comment on above: Performed By: #### L 501.9520, L501.5200, L500.4050, L501.2300, L501.4700 #### [facility] [address] [place], [address] THC Positive Abnormal < 50 ng/mL [facility] Comment on above: Performed By: #### L 501.9520, L501.5200, L500.4050, L501.2300, L501.4700 #### [facility] [address] [place], [address] VISTA UDS PH 6 Normal [facility] Comment on above: Performed By: #### L 501.9520, L501.5200, L500.4050, L501.2300, L501.4700 #### [facility] [address] [place], [address] BASIC METABOLIC PANELon 11-0 Anion gap [Moles/Vol] 16 mmol/L Normal 10-20 [facility] Comment on above: Order Comment: [facility] has implemented the eGFR calculation approach that does not have a coefficient for race that conforms to the NKF-ASN Task Force Recommendations. Performed By: #### L [id number] #### [facility] [address] [address] Dallin Donahue M.D. [id number] Calcium [Mass/Vol] 9.2 mg/dL Normal 8.4-10.2 [facility] Comment on above: Order Comment: [facility] has implemented the eGFR calculation approach that does not have a coefficient for race that conforms to the NKF-ASN Task Force Recommendations. Performed By: #### L [id number] #### [facility] [address] [address] Dallin Donahue M.D. [id number] Chloride [Moles/Vol] 96 mmol/L Low 98-108 [facility] Comment on above: Order Comment: [facility] has implemented the eGFR calculation approach that does not have a coefficient for race that conforms to the NKF-ASN Task Force Recommendations. Performed By: #### L [id number] #### [facility] [address] [address] Dallin Donahue M.D. [id number] Creatinine [Mass/Vol] 0.86 mg/dL Normal 0.50-1.30 [facility] Comment on above: Order Comment: [facility] has implemented the eGFR calculation approach that does not have a coefficient for race that conforms to the NKF-ASN Task Force Recommendations. Performed By: #### L [id number] #### [facility] [address] [address] Dallin Donahue M.D. [id number] EGFR 117 mL/min/1.73 m2 Normal >=60 [facility] Comment on above: Order Comment: [facility] has implemented the eGFR calculation approach that does not have a coefficient for race that conforms to the NKF-ASN Task Force Recommendations. Result Comment: Karoline mated GFR was calculated using the 2020 CKD-EPI creatinine equation. Performed By: #### L [id number] #### [facility] [address] [address] Dallin Donahue M.D. [id number] Glucose [Mass/Vol] 87 mg/dL Normal 65-99 [facility] Comment on above: Order Comment: [facility] has implemented the eGFR calculation approach that does not have a coefficient for race that conforms to the NKF-ASN Task Force Recommendations. Performed By: #### L [id number] #### [facility] [address] [address] Dallin Donahue M.D. [id number] HCO3 (Bld) [Moles/Vol] 24 mmol/L Normal 21-32 [facility] Comment on above: Order Comment: [facility] has implemented the eGFR calculation approach that does not have a coefficient for race that conforms to the NKF-ASN Task Force Recommendations. Performed By: #### L [id number] #### [facility] [address] [address] Dallin Donahue M.D. [id number] Potassium [Moles/Vol] 4.4 mmol/L Normal 3.5-5.1 [facility] Comment on above: Order Comment: [facility] has implemented the eGFR calculation approach that does not have a coefficient for race that conforms to the NKF-ASN Task Force Recommendations. Result Comment: Slig htly Hemolyzed Performed By: #### L [id number] #### [facility] [address] [address] Dallin Donahue M.D. [id number] Sodium [Moles/Vol] 132 mmol/L Low 135-145 [facility] Comment on above: Order Comment: [facility] has implemented the eGFR calculation approach that does not have a coefficient for race that conforms to the NKF-ASN Task Force Recommendations. Performed By: #### L [id number] #### [facility] [address] [address] Dallin Donahue M.D. [id number] Urea nitrogen [Mass/Vol] 7 mg/dL Low 8-25 [facility] Comment on above: Order Comment: [facility] has implemented the eGFR calculation approach that does not have a coefficient for race that conforms to the NKF-ASN Task Force Recommendations. Performed By: #### L [id number] #### [facility] [address] [place], [place] [address] Dallin Donahue M.D. [id number] Urea nitrogen/Creatinine [Mass ratio] 8.1 mg/mg Low 10.0-20.0 [facility] Comment on above: Order Comment: [facility] has implemented the eGFR calculation approach that does not have a coefficient for race that conforms to the NKF-ASN Task Force Recommendations. Performed By: #### L [id number] #### [facility] [address] [place], [place] [address] Dallin Donahue M.D. [id number] Basic metabolic 2000 panelon 04-23-2024 Anion gap [Moles/Vol] 16 mmol/L 10 - 2 0 mmol/L [facility] Calcium [Mass/Vol] 9.2 mg/dL 8.4 - 10. 2 mg/dL [facility] Chloride [Moles/Vol] 96 mmol/L Low 98 - 10 8 mmol/L [facility] Creatinine [Mass/Vol] 0.86 mg/dL 0.50 - 1.30 mg/dL [facility] GFR/1.73 sq M.predicted CKD-EPI (S/P/Bld) [Vol rate/Area] 117 - PINF [facility] Comment on above: Estimated GFR was ca lculated using the 2020 CKD-EPI creatinine equation. Glucose [Mass/Vol] 87 mg/dL 65 - 99 mg/dL [facility] HCO3 [Moles/Vol] 24 mmol/L 21 - 32 mmol/L [facility] Potassium [Moles/Vol] 4.4 mmol/L 3.5 - 5.1 mmol/L [facility] Comment on above: Slightly Hemolyzed Sodium [Moles/Vol] 132 mmol/L Low 135 - 145 mmol/L [facility] Urea nitrogen [Mass/Vol] 7 mg/dL Low 8 - 25 mg/dL [facility] Urea nitrogen/Creatinine [Mass ratio] 8.1 mg/mg Low 10.0 - 20.0 [facility] has implemented the eGFR calculation approach that does not have a coefficient for race that conforms to the NKF-ASN Task Force Recommendations. [facility] CBC Auto Differentialon -0 Basophils (Bld) [#/Vol] 0.02 10*3/uL [facility] Basophils/100 WBC (Bld) 0.3 % [facility] Eosinophils (Bld) [#/Vol] 0.02 10*3/uL [facility] Eosinophils/100 WBC (Bld) 0.3 % [facility] Erythrocyte distribution width (RBC) [Entitic vol] 13.2 % 11.6 - 14.8 % [facility] Hematocrit (Bld) [Volume fraction] 44.9 % 41.0 - 53.0 % [facility] Hemoglobin (Bld) [Mass/Vol] 15.3 g/dL 13.5 - 17.5 g/dL [facility] Immature granulocytes (Bld) [#/Vol] 0.07 10*3/uL [facility] Immature granulocytes/100 WBC (Bld) 0.9 % [facility] Comment on above: The IG parameter is the percentage of metamyelocytes, myelocytes and promyelocytes. An immature granulocyte count (IG) of 1% or more suggests the possibility of infection, an IG count of 3% is very likely related to an infection. Interpretation and review of laboratory results Abnormal [facility] Lymphocytes (Bld) [#/Vol] 1.41 10*3/uL [facility] Lymphocytes/100 WBC (Bld) 18 % [facility] MCH (RBC) [Entitic mass] 33 pg 26.0 - 34.0 pg [facility] MCHC (RBC) [Mass/Vol] 34.1 g/dL 31.0 - 37.0 g/dL [facility] MCV (RBC) [Entitic vol] 96.8 fL 80.0 - 100.0 fL [facility] Monocytes (Bld) [#/Vol] 1.03 10*3/uL High [facility] Monocytes/100 WBC (Bld) 13.2 % [facility] Neutrophils (Bld) [#/Vol] 5.28 10*3/uL [facility] Neutrophils/100 WBC (Bld) 67.3 % [facility] Nucleated RBC (Bld) [#/Vol] 0 10*3/uL [facility] Nucleated RBC/100 WBC (Bld) [Ratio] 0 % [facility] Platelet mean volume (Bld) [Entitic vol] 10.3 fL 9.4 - 12.4 fL [facility] Platelets (Bld) [#/Vol] 163 10*3/uL [facility] RBC (Bld) [#/Vol] 4.64 10*6/uL [facility] WBC (Bld) [#/Vol] 7.83 10*3/uL [facility] CBC WITH AUTO DIFFERENTIALon 04-23-2024 AUTO NRBC 0.0 % Normal [facility] Comment on above: Performed By: #### L [id number] #### LAB [address] [address] Dallin Donahue M.D. [id number] AUTO NRBC ABS COUNT 0.00 K/mcL Normal 0.00-0.00 [facility] Comment on above: Performed By: #### L [id number] #### LAB [address] [address] Dallin Donahue M.D. [id number] BASOPHILS ABSOLUTE COUNT 0.02 K/mcL Normal 0.00-0.30 [facility] Comment on above: Performed By: #### L [id number] #### LAB [address] [place] [address] Dallin Donahue M.D. [id number] Basophils/100 WBC (Bld) 0.3 % [facility] Comment on above: Performed By: #### L [id number] #### LAB [address] [place] [address] Dallin Donahue M.D. [id number] Eosinophils (Bld) [#/Vol] 0.02 10*3/uL Normal 0.00-0.50 [facility] Comment on above: Performed By: #### L [id number] #### LAB [address] [place] [address] Dallin Donahue M.D. [id number] Eosinophils/100 WBC (Bld) 0.3 % [facility] Comment on above: Performed By: #### L [id number] #### LAB [address] [place] [address] Dallin Donahue M.D. [id number] Erythrocyte distribution width (RBC) [Ratio] 13.2 % Normal 11.6-14.8 [facility] Comment on above: Performed By: #### L [id number] #### LAB [address] [address] Dallin Donahue M.D. [id number] Hematocrit (Bld) [Volume fraction] 44.9 % Normal 41.0-53.0 [facility] Comment on above: Performed By: #### L [id number] #### LAB [address] [address] Dallin Donahue M.D. [id number] Hemoglobin (Bld) [Mass/Vol] 15.3 g/dL Normal 13.5-17.5 [facility] Comment on above: Performed By: #### L [id number] #### LAB [address] [address] Dallin Donahue M.D. [id number] IG ABSOLUTE 0.07 K/mcL Normal 0.00-0.30 [facility] Comment on above: Performed By: #### L [id number] #### LAB [address] [place] [address] Dallin Donahue M.D. [id number] IG PERCENT 0.90 % Normal [facility] Comment on above: Result Comment: The IG parameter is the percentage of metamyelocytes, myelocytes and promyelocytes. An immature granulocyte count (IG) of 1% or more suggests the possibility of infection, an IG count of 3% is very likely related to an infection. Performed By: #### L [id number] #### LAB [address] [address] Dallin Donahue M.D. [id number] Lymphocytes (Bld) [#/Vol] 1.41 10*3/uL Normal 0.90-4.00 [facility] Comment on above: Performed By: #### L [id number] #### LAB [address] [place] [address] Dallin Donahue M.D. [id number] Lymphocytes/100 WBC (Bld) 18.0 % [facility] Comment on above: Performed By: #### L [id number] #### LAB [address] [address] Dallin Donahue M.D. [id number] MCH (RBC) [Entitic mass] 33.0 pg Normal 26.0-34.0 [facility] Comment on above: Performed By: #### L [id number] #### LAB [address] [address] Dallin Donahue M.D. [id number] MCV (RBC) [Entitic vol] 96.8 fL Normal 80.0-100.0 [facility] Comment on above: Performed By: #### L [id number] #### LAB [address] [address] Dallin Donahue M.D. [id number] MEAN CORPUSCULAR HEMOGLOBIN CONC 34.1 g/dL Normal 31.0-37.0 [facility] Comment on above: Performed By: #### L [id number] #### LAB [address] [address] Dallin Donahue M.D. [id number] Monocytes (Bld) [#/Vol] 1.03 10*3/uL High 0.30-0.90 [facility] Comment on above: Performed By: #### L [id number] #### LAB [address] [address] Dallin Donahue M.D. [id number] Monocytes/100 WBC (Bld) 13.2 % Normal [facility] Comment on above: Performed By: #### L [id number] #### LAB [address] [address] Dallin Donahue M.D. [id number] NEUTROPHILS ABSOLUTE COUNT 5.28 K/mcL Normal 1.70-7.00 [facility] Comment on above: Performed By: #### L [id number] #### LAB [address] [address] Dallin Donahue M.D. [id number] Neutrophils/100 WBC (Bld) 67.3 % Normal [facility] Comment on above: Performed By: #### L [id number] #### [facility] [address] [address] Dallin Donahue M.D. [id number] Platelet mean volume (Bld) [Entitic vol] 10.3 fL Normal 9.4-12.4 [facility] Comment on above: Performed By: #### L [id number] #### LAB [address] [address] Dallin Donahue M.D. [id number] Platelets (Bld) [#/Vol] 163 10*3/uL Normal 150-400 [facility] Comment on above: Performed By: #### L [id number] #### LAB [address] [address] Dallni Donahue M.D. [id number] RBC (Bld) [#/Vol] 4.64 10*6/uL Normal 4.50-5.90 [facility] Comment on above: Performed By: #### L [id number] #### LAB [address] [address] Dallin Donahue M.D. [id number] WBC (Bld) [#/Vol] 7.83 10*3/uL Normal 4.50-11.00 [facility] Comment on above: Performed By: #### L [id number] #### LAB [address] [address] Dallin Donahue M.D. [id number] HEPATIC FUNCTION PANELon Albumin [Mass/Vol] 3.8 g/dL Normal 3.2-5.2 [facility] Comment on above: Performed By: #### L [id number] #### LAB [address] [address] Dallin Donahue M.D. [id number] ALP [Catalytic activity/Vol] 174 U/L High 40-140 [facility] Comment on above: Performed By: #### L [id number] #### LAB [address] [address] Dallin Donahue M.D. [id number] ALT [Catalytic activity/Vol] 35 U/L Normal 0-50 U/L [facility] Comment on above: Performed By: #### L [id number] #### LAB [address] [place], [place] [address] Dallin Donahue M.D. [id number] AST [Catalytic activity/Vol] 56 U/L High 0-50 U/L [facility] Comment on above: Result Comment: Slig htly Hemolyzed Performed By: #### L [id number] #### LAB [address] [address] Dallin Donahue M.D. [id number] Bilirubin [Mass/Vol] 1.1 mg/dL Normal 0.0-1.3 [facility] Comment on above: Performed By: #### L [id number] #### LAB [address] [address] Dallin Donahue M.D. [id number] Bilirubin.indirect [Mass/Vol] 0.4 mg/dL Normal 0.0-0.4 [facility] Comment on above: Result Comment: Slig htly Hemolyzed Performed By: #### L [id number] #### LAB [address] [address] Dallin Donahue M.D. [id number] Protein [Mass/Vol] 7.9 g/dL Normal 6.0-8.0 [facility] Comment on above: Performed By: #### L [id number] #### LAB [address] [address] Dallin Donahue M.D. [id number] Hepatic function 2000 panelo n 04-23-2024 Albumin [Mass/Vol] 3.8 g/dL 3.2 - 5.2 g/dL [facility] ALP [Catalytic activity/Vol] 174 U/L High 40 - 140 U/L [facility] ALT [Catalytic activity/Vol] 35 U/L 0-50 U/L [facility] AST [Catalytic activity/Vol] 56 U/L High 0-50 U/L [facility] Comment on above: Slightly Hemolyzed Bilirubin [Mass/Vol] 1.1 mg/dL 0.0 - 1 .3 mg/dL [facility] Bilirubin.conjugated [Mass/Vol] 0.4 mg/dL 0.0 - 0.4 mg/dL [facility] Comment on above: Slightly Hemolyzed Interpretation and review of laboratory results Abnormal [facility] Protein [Mass/Vol] 7.9 g/dL 6.0 - 8.0 g/dL [facility] MAGNESIUM LEVELon 04-23-2024 Magnesium [Mass/Vol] 1.7 mg/dL Normal 1.6-2.4 [facility] Comment on above: Performed By: #### L [id number] #### [facility] [address] [place], [place] [address] Dallin Donahue M.D. [id number] Magnesium Levelon 04-23-2024 Magnesium [Mass/Vol] 1.7 mg/dL 1.6 - 2 .4 mg/dL [facility] Magnesium [Mass/Vol]on 04-23 Interpretation and review of laboratory results Normal [facility] No Panel Informationon 04-23 Interpretation and review of laboratory results Abnormal [facility] PHOSPHORUSon 04-23-2024 Phosphate [Mass/Vol] 1.4 mg/dL Low 2.7-4.5 [facility] Comment on above: Performed By: #### [id number] #### [facility] [address] [place], [place] [address] Dallin Donahue M.D. [id number] Phosphoruson 04-23-2024 Phosphate [Mass/Vol] 1.4 mg/dL Low 2.7 - 4 .5 mg/dL [facility] BASIC METABOLIC PANELon Anion gap [Moles/Vol] 14 mmol/L Normal 10-20 [facility] Comment on above: Order Comment: [facility] has implemented the eGFR calculation approach that does not have a coefficient for race that conforms to the NKF-ASN Task Force Recommendations. Performed By: #### L [id number] #### [facility] [address] [place], [place] [address] Dallin Donahue M.D. [id number] Calcium [Mass/Vol] 8.0 mg/dL Low 8.4-10.2 [facility] Comment on above: Order Comment: [facility] has implemented the eGFR calculation approach that does not have a coefficient for race that conforms to the NKF-ASN Task Force Recommendations. Performed By: #### L [id number] #### [facility] [address] [address] Dallin Donahue M.D. [id number] Chloride [Moles/Vol] 99 mmol/L Normal 98-108 [facility] Comment on above: Order Comment: [facility] has implemented the eGFR calculation approach that does not have a coefficient for race that conforms to the NKF-ASN Task Force Recommendations. Performed By: #### L [id number] #### [facility] [address] [address] Dallin Donaheu M.D. [id number] Creatinine [Mass/Vol] 0.75 mg/dL Normal 0.50-1.30 [facility] Comment on above: Order Comment: [facility] has implemented the eGFR calculation approach that does not have a coefficient for race that conforms to the NKF-ASN Task Force Recommendations. Performed By: #### L [id number] #### [facility] [address] [address] Dallin Donahue M.D. [id number] EGFR 122 mL/min/1.73 m2 Normal >=60 [facility] Comment on above: Order Comment: [facility] has implemented the eGFR calculation approach that does not have a coefficient for race that conforms to the NKF-ASN Task Force Recommendations. Result Comment: Karoline mated GFR was calculated using the 2020 CKD-EPI creatinine equation. Performed By: #### L [id number] #### [facility] [address] [address] Dallin Donahue M.D. [id number] Glucose [Mass/Vol] 90 mg/dL Normal 65-99 [facility] Comment on above: Order Comment: [facility] has implemented the eGFR calculation approach that does not have a coefficient for race that conforms to the NKF-ASN Task Force Recommendations. Performed By: #### L [id number] #### [facility] [address] [address] Dallin Donahue M.D. [id number] HCO3 (Bld) [Moles/Vol] 22 mmol/L Normal 21-32 [facility] Comment on above: Order Comment: [facility] has implemented the eGFR calculation approach that does not have a coefficient for race that conforms to the NKF-ASN Task Force Recommendations. Performed By: #### L [id number] #### [facility] [address] [address] Dallin Donahue M.D. [id number] Potassium [Moles/Vol] 3.3 mmol/L Low 3.5-5.1 [facility] Comment on above: Order Comment: [facility] has implemented the eGFR calculation approach that does not have a coefficient for race that conforms to the NKF-ASN Task Force Recommendations. Performed By: #### L [id number] #### [facility] [address] [address] Dallin Donahue M.D. [id number] Sodium [Moles/Vol] 132 mmol/L Low 135-145 [facility] Comment on above: Order Comment: [facility] has implemented the eGFR calculation approach that does not have a coefficient for race that conforms to the NKF-ASN Task Force Recommendations. Performed By: #### L [id number] #### [facility] [address] [address] Dallin Donahue M.D. [id number] Urea nitrogen [Mass/Vol] 5 mg/dL Low 8-25 [facility] Comment on above: Order Comment: [facility] has implemented the eGFR calculation approach that does not have a coefficient for race that conforms to the NKF-ASN Task Force Recommendations. Performed By: #### L [id number] #### [facility] [address] [address] Dallin Donahue M.D. [id number] Urea nitrogen/Creatinine [Mass ratio] 6.7 mg/mg Low 10.0-20.0 [facility] Comment on above: Order Comment: [facility] has implemented the eGFR calculation approach that does not have a coefficient for race that conforms to the NKF-ASN Task Force Recommendations. Performed By: #### L [id number] #### [facility] [address] [place], [place] [address] Dallin Donahue M.D. [id number] Basic metabolic 2000 panelon 04-22-2024 Anion gap [Moles/Vol] 14 mmol/L 10 - 2 0 mmol/L [facility] Calcium [Mass/Vol] 8 mg/dL Low 8.4 - 10. 2 mg/dL [facility] Chloride [Moles/Vol] 99 mmol/L 98 - 10 8 mmol/L [facility] Creatinine [Mass/Vol] 0.75 mg/dL 0.50 - 1.30 mg/dL [facility] GFR/1.73 sq M.predicted CKD-EPI (S/P/Bld) [Vol rate/Area] 122 - PINF [facility] Comment on above: Estimated GFR was ca lculated using the 2020 CKD-EPI creatinine equation. Glucose [Mass/Vol] 90 mg/dL 65 - 99 mg/dL [facility] HCO3 [Moles/Vol] 22 mmol/L 21 - 32 mmol/L [facility] Potassium [Moles/Vol] 3.3 mmol/L Low 3.5 - 5.1 mmol/L [facility] Sodium [Moles/Vol] 132 mmol/L Low 135 - 145 mmol/L [facility] Urea nitrogen [Mass/Vol] 5 mg/dL Low 8 - 25 mg/dL [facility] Urea nitrogen/Creatinine [Mass ratio] 6.7 mg/mg Low 10.0 - 20.0 [facility] has implemented the eGFR calculation approach that does not have a coefficient for race that conforms to the NKF-ASN Task Force Recommendations. [facility] CBC Auto Differentialon Basophils (Bld) [#/Vol] 0 10*3/uL [facility] Basophils/100 WBC (Bld) 0 % [facility] Eosinophils (Bld) [#/Vol] 0 10*3/uL [facility] Eosinophils/100 WBC (Bld) 0 % [facility] Erythrocyte distribution width (RBC) [Entitic vol] 13.5 % 11.6 - 14.8 % [facility] Hematocrit (Bld) [Volume fraction] 37.3 % Low 41.0 - 53.0 % [facility] Hemoglobin (Bld) [Mass/Vol] 12.6 g/dL Low 13.5 - 17.5 g/dL [facility] Immature granulocytes (Bld) [#/Vol] 0.06 10*3/uL [facility] Immature granulocytes/100 WBC (Bld) 0.8 % [facility] Comment on above: The IG parameter is the percentage of metamyelocytes, myelocytes and promyelocytes. An immature granulocyte count (IG) of 1% or more suggests the possibility of infection, an IG count of 3% is very likely related to an infection. Interpretation and review of laboratory results Abnormal [facility] Lymphocytes (Bld) [#/Vol] 1.18 10*3/uL [facility] Lymphocytes/100 WBC (Bld) 14.9 % [facility] MCH (RBC) [Entitic mass] 32 pg 26.0 - 34.0 pg [facility] MCHC (RBC) [Mass/Vol] 33.8 g/dL 31.0 - 37.0 g/dL [facility] MCV (RBC) [Entitic vol] 94.7 fL 80.0 - 100.0 fL [facility] Monocytes (Bld) [#/Vol] 1.02 10*3/uL High [facility] Monocytes/100 WBC (Bld) 12.8 % [facility] Neutrophils (Bld) [#/Vol] 5.68 10*3/uL [facility] Neutrophils/100 WBC (Bld) 71.5 % [facility] Nucleated RBC (Bld) [#/Vol] 0 10*3/uL [facility] Nucleated RBC/100 WBC (Bld) [Ratio] 0 % [facility] Platelet mean volume (Bld) [Entitic vol] 10 fL 9.4 - 12.4 fL [facility] Platelets (Bld) [#/Vol] 149 10*3/uL Low [facility] RBC (Bld) [#/Vol] 3.94 10*6/uL Low [facility] WBC (Bld) [#/Vol] 7.94 10*3/uL [facility] CBC WITH AUTO DIFFERENTIALon 04-22-2024 AUTO NRBC 0.0 % [facility] Comment on above: Performed By: #### L [id number] #### MH LAB [address], [place] [address] Dallin Donahue M.D. [id number] AUTO NRBC ABS COUNT 0.00 K/mcL Normal 0.00-0.00 [facility] Comment on above: Performed By: #### L [id number] #### LAB [address] [address] Dallin Donahue M.D. [id number] BASOPHILS ABSOLUTE COUNT 0.00 K/mcL Normal 0.00-0.30 [facility] Comment on above: Performed By: #### L [id number] #### LAB [address] [address] Dallin Donahue M.D. [id number] Basophils/100 WBC (Bld) 0.0 % [facility] Comment on above: Performed By: #### L [id number] #### LAB [address] [address] Dallin Donahue M.D. [id number] Eosinophils (Bld) [#/Vol] 0.00 10*3/uL Normal 0.00-0.50 [facility] Comment on above: Performed By: #### L [id number] #### LAB [address] [address] Dallin Donahue M.D. [id number] Eosinophils/100 WBC (Bld) 0.0 % [facility] Comment on above: Performed By: #### L [id number] #### LAB [address] [place] [address] Dallin Donahue M.D. [id number] Erythrocyte distribution width (RBC) [Ratio] 13.5 % Normal 11.6-14.8 [facility] Comment on above: Performed By: #### L [id number] #### LAB [address] [place] [address] Dallin Donahue M.D. [id number] Hematocrit (Bld) [Volume fraction] 37.3 % Low 41.0-53.0 [facility] Comment on above: Performed By: #### L [id number] #### LAB [address] [place] [address] Dallin Donahue M.D. [id number] Hemoglobin (Bld) [Mass/Vol] 12.6 g/dL Low 13.5-17.5 [facility] Comment on above: Performed By: #### L [id number] #### LAB [address] [address] Dallin Donahue M.D. [id number] IG ABSOLUTE 0.06 K/mcL Normal 0.00-0.30 [facility] Comment on above: Performed By: #### L [id number] #### LAB [address] [address] Dallin Donahue M.D. [id number] IG PERCENT 0.80 % Normal [facility] Comment on above: Result Comment: The IG parameter is the percentage of metamyelocytes, myelocytes and promyelocytes. An immature granulocyte count (IG) of 1% or more suggests the possibility of infection, an IG count of 3% is very likely related to an infection. Performed By: #### L [id number] #### LAB [address] [address] Dallin Donahue M.D. [id number] Lymphocytes (Bld) [#/Vol] 1.18 10*3/uL Normal 0.90-4.00 [facility] Comment on above: Performed By: #### L [id number] #### LAB [address] [address] Dallin Donahue M.D. [id number] Lymphocytes/100 WBC (Bld) 14.9 % Normal [facility] Comment on above: Performed By: #### L [id number] #### LAB [address] [place] [address] aDllin Donahue M.D. [id number] MCH (RBC) [Entitic mass] 32.0 pg Normal 26.0-34.0 [facility] Comment on above: Performed By: #### L [id number] #### LAB [address] [address] Dallin Donahue M.D. [id number] MCV (RBC) [Entitic vol] 94.7 fL Normal 80.0-100.0 [facility] Comment on above: Performed By: #### L [id number] #### LAB [address] [place] [address] Dallin Donahue M.D. [id number] MEAN CORPUSCULAR HEMOGLOBIN CONC 33.8 g/dL Normal 31.0-37.0 [facility] Comment on above: Performed By: #### L [id number] #### LAB [address] [address] Dallin Donahue M.D. [id number] Monocytes (Bld) [#/Vol] 1.02 10*3/uL High 0.30-0.90 [facility] Comment on above: Performed By: #### L [id number] #### LAB [address] [address] Dallin Donahue M.D. [id number] Monocytes/100 WBC (Bld) 12.8 % Normal [facility] Comment on above: Performed By: #### L [id number] #### LAB [address] [address] Dallin Donahue M.D. [id number] NEUTROPHILS ABSOLUTE COUNT 5.68 K/mcL Normal 1.70-7.00 [facility] Comment on above: Performed By: #### L [id number] #### LAB [address] [place] [address] Dallin Donahue M.D. [id number] Neutrophils/100 WBC (Bld) 71.5 % Normal [facility] Comment on above: Performed By: #### L [id number] #### LAB [address] [place] [address] Dallin Donahue M.D. [id number] Platelet mean volume (Bld) [Entitic vol] 10.0 fL Normal 9.4-12.4 [facility] Comment on above: Performed By: #### L [id number] #### LAB [address] [place] [address] Dallin Donahue M.D. [id number] Platelets (Bld) [#/Vol] 149 10*3/uL Low 150-400 [facility] Comment on above: Performed By: #### L [id number] #### [facility] LAB [address] [place] [address] Dallin Donahue M.D. [id number] RBC (Bld) [#/Vol] 3.94 10*6/uL Low 4.50-5.90 [facility] Comment on above: Performed By: #### L [id number] #### MH LAB [address] [address] Dallin Donahue M.D. [id number] WBC (Bld) [#/Vol] 7.94 10*3/uL Normal 4.50-11.00 [facility] Comment on above: Performed By: #### L [id number] #### LAB [address] [address] Dallin Donahue M.D. [id number] HEPATIC FUNCTION PANELon Albumin [Mass/Vol] 3.5 g/dL Normal 3.2-5.2 [facility] Comment on above: Performed By: #### L [id number] #### [facility] LAB [address] [address] Dallin Donahue M.D. [id number] ALP [Catalytic activity/Vol] 156 U/L High 40-140 [facility] Comment on above: Performed By: #### L [id number] #### [facility] LAB [address] [place] [address] Dallin Donahue M.D. [id number] ALT [Catalytic activity/Vol] 42 U/L Normal 0-50 U/L [facility] Comment on above: Performed By: #### L [id number] #### [facility] LAB [address] [place] [address] Dallin Donahue M.D. [id number] AST [Catalytic activity/Vol] 73 U/L High 0-50 U/L [facility] Comment on above: Performed By: #### L [id number] #### MH LAB [address] [place] [address] Dallin Donahue M.D. [id number] Bilirubin [Mass/Vol] 0.9 mg/dL Normal 0.0-1.3 [facility] Comment on above: Performed By: #### L [id number] #### MH LAB [address] [place] [address] Dallin Donahue M.D. [id number] Bilirubin.indirect [Mass/Vol] 0.4 mg/dL Normal 0.0-0.4 [facility] Comment on above: Performed By: #### L [id number] #### [facility] LAB [address] [place] [address] Dallin Donahue M.D. [id number] Protein [Mass/Vol] 6.8 g/dL Normal 6.0-8.0 [facility] Comment on above: Performed By: #### L [id number] #### LAB [address] [place] [address] Dallin Donahue M.D. [id number] Hepatic function 2000 panelo n 04-22-2024 Albumin [Mass/Vol] 3.5 g/dL 3.2 - 5.2 g/dL [facility] ALP [Catalytic activity/Vol] 156 U/L High 40 - 140 U/L [facility] ALT [Catalytic activity/Vol] 42 U/L 0-50 U/L [facility] AST [Catalytic activity/Vol] 73 U/L High 0-50 U/L [facility] Bilirubin [Mass/Vol] 0.9 mg/dL 0.0 - 1 .3 mg/dL [facility] Bilirubin.conjugated [Mass/Vol] 0.4 mg/dL 0.0 - 0.4 mg/dL [facility] Interpretation and review of laboratory results Abnormal [facility] Protein [Mass/Vol] 6.8 g/dL 6.0 - 8.0 g/dL [facility] MAGNESIUM LEVELon 04-22-2024 Magnesium [Mass/Vol] 1.8 mg/dL Normal 1.6-2.4 [facility] Comment on above: Performed By: #### L [id number] #### [facility] [address] [place] [address] Dallin Donahue M.D. [id number] Magnesium Levelon 04-22-2024 Magnesium [Mass/Vol] 1.8 mg/dL 1.6 - 2 .4 mg/dL [facility] Magnesium [Mass/Vol]on 04-22 Interpretation and review of laboratory results Normal [facility] No Panel Informationon 04-22 Interpretation and review of laboratory results Abnormal [facility] PHOSPHORUSon 04-22-2024 Phosphate [Mass/Vol] 1.1 mg/dL Low 2.7-4.5 [facility] Comment on above: Performed By: #### L [id number] #### [facility] [address], [place] [address] Dallin Donahue M.D. [id number] Phosphoruson 04-22-2024 Phosphate [Mass/Vol] 1.1 mg/dL Low 2.7 - 4 .5 mg/dL [facility] BASIC METABOLIC PANELon Anion gap [Moles/Vol] 18 mmol/L Normal 10-20 [facility] Comment on above: Order Comment: [facility] has implemented the eGFR calculation approach that does not have a coefficient for race that conforms to the NKF-ASN Task Force Recommendations. Performed By: #### L [id number] #### MH LAB [address], [place] [address] Dallin Donahue M.D. [id number] Calcium [Mass/Vol] 8.9 mg/dL Normal 8.4-10.2 [facility] Comment on above: Order Comment: [facility] has implemented the eGFR calculation approach that does not have a coefficient for race that conforms to the NKF-ASN Task Force Recommendations. Performed By: #### L [id number] #### [facility] LAB [address], [place] [address] Dallin Donahue M.D. [id number] Chloride [Moles/Vol] 96 mmol/L Low 98-108 [facility] Comment on above: Order Comment: [facility] has implemented the eGFR calculation approach that does not have a coefficient for race that conforms to the NKF-ASN Task Force Recommendations. Performed By: #### L [id number] #### [facility] LAB [address], [place] [address] Dallin Donahue M.D. [id number] Creatinine [Mass/Vol] 0.82 mg/dL Normal 0.50-1.30 [facility] Comment on above: Order Comment: [facility] has implemented the eGFR calculation approach that does not have a coefficient for race that conforms to the NKF-ASN Task Force Recommendations. Performed By: #### L [id number] #### LAB [address] [place] [id number] Dallin Donahue M.D. [id number] EGFR 119 mL/min/1.73 m2 Normal >=60 [facility] Comment on above: Order Comment: [facility] has implemented the eGFR calculation approach that does not have a coefficient for race that conforms to the NKF-ASN Task Force Recommendations. Result Comment: Karoline mated GFR was calculated using the 2020 CKD-EPI creatinine equation. Performed By: #### L [id number] #### [facility] LAB [address] [place] [address] Dallin Donahue M.D. [id number] Glucose [Mass/Vol] 65 mg/dL Normal 65-99 [facility] Comment on above: Order Comment: [facility] has implemented the eGFR calculation approach that does not have a coefficient for race that conforms to the NKF-ASN Task Force Recommendations. Performed By: #### L [id number] #### [facility] LAB [address] [place] [address] Dallin Donahue M.D. [id number] HCO3 (Bld) [Moles/Vol] 20 mmol/L Low 21-32 [facility] Comment on above: Order Comment: [facility] has implemented the eGFR calculation approach that does not have a coefficient for race that conforms to the NKF-ASN Task Force Recommendations. Performed By: #### L [id number] #### [facility] LAB [address] [place] [address] Dallin Donahue M.D. [id number] Potassium [Moles/Vol] 4.3 mmol/L Normal 3.5-5.1 [facility] Comment on above: Order Comment: [facility] has implemented the eGFR calculation approach that does not have a coefficient for race that conforms to the NKF-ASN Task Force Recommendations. Result Comment: Slanali htly Hemolyzed Performed By: #### L [id number] #### [facility] LAB [address], [place] [address] Dallin Donahue M.D. [id number] Sodium [Moles/Vol] 130 mmol/L Low 135-145 [facility] Comment on above: Order Comment: [facility] has implemented the eGFR calculation approach that does not have a coefficient for race that conforms to the NKF-ASN Task Force Recommendations. Performed By: #### L [id number] #### [facility] LAB [address], [place] [address] Dallin Donahue M.D. [id number] Urea nitrogen [Mass/Vol] 8 mg/dL Normal 8-25 [facility] Comment on above: Order Comment: [facility] has implemented the eGFR calculation approach that does not have a coefficient for race that conforms to the NKF-ASN Task Force Recommendations. Performed By: #### L [id number] #### LAB [address] [place] [address] Dallin Donahue M.D. [id number] Urea nitrogen/Creatinine [Mass ratio] 9.8 mg/mg Low 10.0-20.0 [facility] Comment on above: Order Comment: [facility] has implemented the eGFR calculation approach that does not have a coefficient for race that conforms to the NKF-ASN Task Force Recommendations. Performed By: #### L [id number] #### [facility] [address], [place] [address] Dallin Donahue M.D. [id number] Basic metabolic 2000 panelOr dered By: Darlene Akins on 04-21-2024 Anion gap [Moles/Vol] 18 mmol/L 10 - 2 0 mmol/L [facility] Calcium [Mass/Vol] 8.9 mg/dL 8.4 - 10. 2 mg/dL [facility] Chloride [Moles/Vol] 96 mmol/L Low 98 - 10 8 mmol/L [facility] Creatinine [Mass/Vol] 0.82 mg/dL 0.50 - 1.30 mg/dL [facility] GFR/1.73 sq M.predicted CKD-EPI (S/P/Bld) [Vol rate/Area] 119 - PINF [facility] Comment on above: Estimated GFR was ca lculated using the 2020 CKD-EPI creatinine equation. Glucose [Mass/Vol] 65 mg/dL 65 - 99 mg/dL [facility] HCO3 [Moles/Vol] 20 mmol/L Low 21 - 32 mmol/L [facility] Potassium [Moles/Vol] 4.3 mmol/L 3.5 - 5.1 mmol/L [facility] Comment on above: Slightly Hemolyzed Sodium [Moles/Vol] 130 mmol/L Low 135 - 145 mmol/L [facility] Urea nitrogen [Mass/Vol] 8 mg/dL 8 - 25 mg/dL [facility] Urea nitrogen/Creatinine [Mass ratio] 9.8 mg/mg Low 10.0 - 20.0 [facility] has implemented the eGFR calculation approach that does not have a coefficient for race that conforms to the NKF-ASN Task Force Recommendations. [facility] CBC Auto Differentialon 11-0 Basophils (Bld) [#/Vol] 0.01 10*3/uL [facility] Basophils/100 WBC (Bld) 0.1 % [facility] Eosinophils (Bld) [#/Vol] 0 10*3/uL [facility] Eosinophils/100 WBC (Bld) 0 % [facility] Erythrocyte distribution width (RBC) [Entitic vol] 13.4 % 11.6 - 14.8 % [facility] Hematocrit (Bld) [Volume fraction] 45.3 % 41.0 - 53.0 % [facility] Hemoglobin (Bld) [Mass/Vol] 15.6 g/dL 13.5 - 17.5 g/dL [facility] Immature granulocytes (Bld) [#/Vol] 0.07 10*3/uL [facility] Immature granulocytes/100 WBC (Bld) 0.7 % [facility] Comment on above: The IG parameter is the percentage of metamyelocytes, myelocytes and promyelocytes. An immature granulocyte count (IG) of 1% or more suggests the possibility of infection, an IG count of 3% is very likely related to an infection. Interpretation and review of laboratory results Abnormal [facility] Lymphocytes (Bld) [#/Vol] 0.65 10*3/uL Low [facility] Lymphocytes/100 WBC (Bld) 6.5 % [facility] MCH (RBC) [Entitic mass] 33.4 pg 26.0 - 34.0 pg [facility] MCHC (RBC) [Mass/Vol] 34.4 g/dL 31.0 - 37.0 g/dL [facility] MCV (RBC) [Entitic vol] 97 fL 80.0 - 100.0 fL [facility] Monocytes (Bld) [#/Vol] 0.82 10*3/uL [facility] Monocytes/100 WBC (Bld) 8.2 % [facility] Neutrophils (Bld) [#/Vol] 8.46 10*3/uL High [facility] Neutrophils/100 WBC (Bld) 84.5 % [facility] Nucleated RBC (Bld) [#/Vol] 0 10*3/uL [facility] Nucleated RBC/100 WBC (Bld) [Ratio] 0 % [facility] Platelet mean volume (Bld) [Entitic vol] 10.4 fL 9.4 - 12.4 fL [facility] Platelets (Bld) [#/Vol] 149 10*3/uL Low [facility] RBC (Bld) [#/Vol] 4.67 10*6/uL [facility] WBC (Bld) [#/Vol] 10.01 10*3/uL [facility] CBC WITH AUTO DIFFERENTIALon 04-21-2024 AUTO NRBC 0.0 % Normal [facility] Comment on above: Performed By: #### L [id number] #### LAB [address] [address] Dallin Donahue M.D. [id number] AUTO NRBC ABS COUNT 0.00 K/mcL Normal 0.00-0.00 [facility] Comment on above: Performed By: #### L [id number] #### LAB [address] [address] Dallin Donahue M.D. [id number] BASOPHILS ABSOLUTE COUNT 0.01 K/mcL Normal 0.00-0.30 [facility] Comment on above: Performed By: #### L [id number] #### LAB [address] [address] Dallin Donahue M.D. [id number] Basophils/100 WBC (Bld) 0.1 % Normal [facility] Comment on above: Performed By: #### L [id number] #### LAB [address] [address] Dallin Donahue M.D. [id number] Eosinophils (Bld) [#/Vol] 0.00 10*3/uL Normal 0.00-0.50 [facility] Comment on above: Performed By: #### L [id number] #### LAB [address] [address] Dallin Donahue M.D. [id number] Eosinophils/100 WBC (Bld) 0.0 % Normal [facility] Comment on above: Performed By: #### L [id number] #### LAB [address] [address] Dallin Donahue M.D. [id number] Erythrocyte distribution width (RBC) [Ratio] 13.4 % Normal 11.6-14.8 [facility] Comment on above: Performed By: #### L [id number] #### LAB [address] [address] Dallin Donahue M.D. [id number] Hematocrit (Bld) [Volume fraction] 45.3 % Normal 41.0-53.0 [facility] Comment on above: Performed By: #### L [id number] #### LAB [address] [address] Dallin Donahue M.D. [id number] Hemoglobin (Bld) [Mass/Vol] 15.6 g/dL Normal 13.5-17.5 [facility] Comment on above: Performed By: #### L [id number] #### LAB [address] [address] Dallin Donahue M.D. [id number] IG ABSOLUTE 0.07 K/mcL Normal 0.00-0.30 [facility] Comment on above: Performed By: #### L [id number] #### LAB [address] [address] Dallin Donahue M.D. [id number] IG PERCENT 0.70 % Normal [facility] Comment on above: Result Comment: The IG parameter is the percentage of metamyelocytes, myelocytes and promyelocytes. An immature granulocyte count (IG) of 1% or more suggests the possibility of infection, an IG count of 3% is very likely related to an infection. Performed By: #### L [id number] #### LAB [address] [place] [address] Dallin Donahue M.D. [id number] Lymphocytes (Bld) [#/Vol] 0.65 10*3/uL Low 0.90-4.00 [facility] Comment on above: Performed By: #### L [id number] #### LAB [address] [place] [address] Dallin Donahue M.D. [id number] Lymphocytes/100 WBC (Bld) 6.5 % Normal [facility] Comment on above: Performed By: #### L [id number] #### LAB [address] [address] Dallin Donahue M.D. [id number] MCH (RBC) [Entitic mass] 33.4 pg Normal 26.0-34.0 [facility] Comment on above: Performed By: #### L [id number] #### LAB [address] [place] [address] Dallin Donahue M.D. [id number] MCV (RBC) [Entitic vol] 97.0 fL Normal 80.0-100.0 [facility] Comment on above: Performed By: #### L [id number] #### LAB [address] [address] Dallin Donahue M.D. [id number] MEAN CORPUSCULAR HEMOGLOBIN CONC 34.4 g/dL Normal 31.0-37.0 [facility] Comment on above: Performed By: #### L [id number] #### LAB [address] [place] [address] Dallin Donahue M.D. [id number] Monocytes (Bld) [#/Vol] 0.82 10*3/uL Normal 0.30-0.90 [facility] Comment on above: Performed By: #### L [id number] #### LAB [address] [address] Dallin Donahue M.D. [id number] Monocytes/100 WBC (Bld) 8.2 % Normal [facility] Comment on above: Performed By: #### L [id number] #### LAB [address] [address] Dallin Donahue M.D. [id number] NEUTROPHILS ABSOLUTE COUNT 8.46 K/mcL High 1.70-7.00 [facility] Comment on above: Performed By: #### L [id number] #### LAB [address] [address] Dallin Donahue M.D. [id number] Neutrophils/100 WBC (Bld) 84.5 % Normal [facility] Comment on above: Performed By: #### L [id number] #### LAB [address] [address] Dallin Donahue M.D. [id number] Platelet mean volume (Bld) [Entitic vol] 10.4 fL Normal 9.4-12.4 [facility] Comment on above: Performed By: #### L [id number] #### LAB [address] [address] Dallin Donahue M.D. [id number] Platelets (Bld) [#/Vol] 149 10*3/uL Low 150-400 [facility] Comment on above: Performed By: #### L [id number] #### LAB [address] [address] Dallin Donahue M.D. [id number] RBC (Bld) [#/Vol] 4.67 10*6/uL Normal 4.50-5.90 [facility] Comment on above: Performed By: #### L [id number] #### LAB [address] [address] Dallin Donahue M.D. [id number] WBC (Bld) [#/Vol] 10.01 10*3/uL Normal 4.50-11.00 [facility] Comment on above: Performed By: #### L [id number] #### [facility] [address] [place], [place] [address] Dallin Donahue M.D. [id number] CT ABDOMEN PELVIS WITH CONTR [place] 04-21-2024 [...] SatApr 21, 2024 2:17:08 PM EST Normal [facility] Comment on above: Order Comment: Injur y/Trauma [...] infiltration of the liver. Workstation ID: [id number] [facility] Radiology Study observation (narrative) [facility] CT Abdomen and Pelvis W cont rast IVOrdered By: Pierre Mulligan on 04-21-2024 [facility] Work Phone: HEPATIC FUNCTION PANELon Albumin [Mass/Vol] 3.8 g/dL Normal 3.2-5.2 [facility] Comment on above: Performed By: #### L [id number] #### [facility] [address] [place] [address] Dallin Donahue M.D. [id number] ALP [Catalytic activity/Vol] 212 U/L High 40-140 [facility] Comment on above: Performed By: #### L [id number] #### [facility] [address] [place] [address] Dallin Donahue M.D. [id number] ALT [Catalytic activity/Vol] 71 U/L High 0-50 U/L [facility] Comment on above: Performed By: #### L [id number] #### MH LAB [address] [place] [address] Dallin Donahue M.D. [id number] AST [Catalytic activity/Vol] 134 U/L High 0-50 U/L [facility] Comment on above: Result Comment: Slig htly Hemolyzed Performed By: #### L [id number] #### MH LAB [address] [place] [address] Dallin Donahue M.D. [id number] Bilirubin [Mass/Vol] 1.5 mg/dL High 0.0-1.3 [facility] Comment on above: Performed By: #### L [id number] #### MH LAB [address] [place], [place] [address] Dallin Donahue M.D. [id number] Bilirubin.indirect [Mass/Vol] 0.6 mg/dL High 0.0-0.4 [facility] Comment on above: Performed By: #### L [id number] #### MH LAB [address] [place], [place] [address] Dallin Donahue M.D. [id number] Protein [Mass/Vol] 7.6 g/dL Normal 6.0-8.0 [facility] Comment on above: Performed By: #### L [id number] #### LAB [address] [place], [place] [address] Dallin Donahue M.D. [id number] Hepatic function 2000 panelo n 04-21-2024 Albumin [Mass/Vol] 3.8 g/dL 3.2 - 5.2 g/dL [facility] ALP [Catalytic activity/Vol] 212 U/L High 40 - 140 U/L [facility] ALT [Catalytic activity/Vol] 71 U/L High 0-50 U/L [facility] AST [Catalytic activity/Vol] 134 U/L High 0-50 U/L [facility] Comment on above: Slightly Hemolyzed Bilirubin [Mass/Vol] 1.5 mg/dL High 0.0 - 1 .3 mg/dL [facility] Bilirubin.conjugated [Mass/Vol] 0.6 mg/dL High 0.0 - 0.4 mg/dL [facility] Interpretation and review of laboratory results Abnormal [facility] Protein [Mass/Vol] 7.6 g/dL 6.0 - 8.0 g/dL [facility] MAGNESIUM LEVELon 04-21-2024 Magnesium [Mass/Vol] 1.8 mg/dL Normal 1.6-2.4 [facility] Comment on above: Performed By: #### L [id number] #### MH LAB [address] [place], [place] [address] Dallin Donahue M.D. [id number] Magnesium Levelon 04-21-2024 Magnesium [Mass/Vol] 1.8 mg/dL 1.6 - 2 .4 mg/dL [facility] Magnesium [Mass/Vol]on 04-21 Interpretation and review of laboratory results Normal [facility] No Panel InformationOrdered By: Darlene Akins on 04-21-2024 Interpretation and review of laboratory results Abnormal [facility] PHOSPHORUSon 04-21-2024 Phosphate [Mass/Vol] 2.6 mg/dL Low 2.7-4.5 [facility] Comment on above: Performed By: #### L [id number] #### MH LAB [address] [place] [address] Dallin Donahue M.D. [id number] Phosphoruson 04-21-2024 Phosphate [Mass/Vol] 2.6 mg/dL Low 2.7 - 4 .5 mg/dL [facility] BASIC METABOLIC PANELon Anion gap [Moles/Vol] 17 mmol/L Normal 10-20 [facility] Comment on above: Order Comment: [facility] has implemented the eGFR calculation approach that does not have a coefficient for race that conforms to the NKF-ASN Task Force Recommendations. Performed By: #### L [id number] #### MH LAB [address] [place] [address] Dallin Donahue M.D. [id number] Calcium [Mass/Vol] 8.8 mg/dL Normal 8.4-10.2 [facility] Comment on above: Order Comment: [facility] has implemented the eGFR calculation approach that does not have a coefficient for race that conforms to the NKF-ASN Task Force Recommendations. Performed By: #### L [id number] #### MH LAB [address] [place] [address] Dallin Donahue M.D. [id number] Chloride [Moles/Vol] 99 mmol/L Normal 98-108 [facility] Comment on above: Order Comment: [facility] has implemented the eGFR calculation approach that does not have a coefficient for race that conforms to the NKF-ASN Task Force Recommendations. Performed By: #### L [id number] #### MH LAB [address] [place] [id number] Dallin Donahue M.D. [id number] Creatinine [Mass/Vol] 0.87 mg/dL Normal 0.50-1.30 [facility] Comment on above: Order Comment: [facility] has implemented the eGFR calculation approach that does not have a coefficient for race that conforms to the NKF-ASN Task Force Recommendations. Performed By: #### L [id number] #### LAB [address] [place], [place] [address] Dallin Donahue M.D. [id number] EGFR 117 mL/min/1.73 m2 Normal >=60 [facility] Comment on above: Order Comment: [facility] has implemented the eGFR calculation approach that does not have a coefficient for race that conforms to the NKF-ASN Task Force Recommendations. Result Comment: Karoline mated GFR was calculated using the 2020 CKD-EPI creatinine equation. Performed By: #### L [id number] #### MH LAB [address] [place] [address] Dallin Donahue M.D. [id number] Glucose [Mass/Vol] 72 mg/dL Normal 65-99 [facility] Comment on above: Order Comment: [facility] has implemented the eGFR calculation approach that does not have a coefficient for race that conforms to the NKF-ASN Task Force Recommendations. Performed By: #### L [id number] #### MH LAB [address] [place] [address] Dallin Donahue M.D. [id number] HCO3 (Bld) [Moles/Vol] 23 mmol/L Normal 21-32 [facility] Comment on above: Order Comment: [facility] has implemented the eGFR calculation approach that does not have a coefficient for race that conforms to the NKF-ASN Task Force Recommendations. Performed By: #### L [id number] #### MH LAB [address] [place] [address] Dallin Donahue M.D. [id number] Potassium [Moles/Vol] 3.8 mmol/L Normal 3.5-5.1 [facility] Comment on above: Order Comment: [facility] has implemented the eGFR calculation approach that does not have a coefficient for race that conforms to the NKF-ASN Task Force Recommendations. Performed By: #### L [id number] #### MH LAB [address] [place], [place] [address] Dallin Donahue M.D. [id number] Sodium [Moles/Vol] 135 mmol/L Normal 135-145 [facility] Comment on above: Order Comment: [facility] has implemented the eGFR calculation approach that does not have a coefficient for race that conforms to the NKF-ASN Task Force Recommendations. Performed By: #### L [id number] #### MH LAB [address] [place], [place] [address] Dallin Donahue M.D. [id number] Urea nitrogen [Mass/Vol] 6 mg/dL Low 8-25 [facility] Comment on above: Order Comment: [facility] has implemented the eGFR calculation approach that does not have a coefficient for race that conforms to the NKF-ASN Task Force Recommendations. Performed By: #### L [id number] #### LAB [address] [place] [address] Dallin Donahue M.D. [id number] Urea nitrogen/Creatinine [Mass ratio] 6.9 mg/mg Low 10.0-20.0 [facility] Comment on above: Order Comment: [facility] has implemented the eGFR calculation approach that does not have a coefficient for race that conforms to the NKF-ASN Task Force Recommendations. Performed By: #### L [id number] #### MH LAB [address] [place], [place] [address] Dallin Donahue M.D. [id number] Basic metabolic 2000 panelon 04-20-2024 Anion gap [Moles/Vol] 17 mmol/L 10 - 2 0 mmol/L [facility] Calcium [Mass/Vol] 8.8 mg/dL 8.4 - 10. 2 mg/dL [facility] Chloride [Moles/Vol] 99 mmol/L 98 - 10 8 mmol/L [facility] Creatinine [Mass/Vol] 0.87 mg/dL 0.50 - 1.30 mg/dL [facility] GFR/1.73 sq M.predicted CKD-EPI (S/P/Bld) [Vol rate/Area] 117 - PINF [facility] Comment on above: Estimated GFR was ca lculated using the 2020 CKD-EPI creatinine equation. Glucose [Mass/Vol] 72 mg/dL 65 - 99 mg/dL [facility] HCO3 [Moles/Vol] 23 mmol/L 21 - 32 mmol/L [facility] Potassium [Moles/Vol] 3.8 mmol/L 3.5 - 5.1 mmol/L [facility] Sodium [Moles/Vol] 135 mmol/L 135 - 145 mmol/L [facility] Urea nitrogen [Mass/Vol] 6 mg/dL Low 8 - 25 mg/dL [facility] Urea nitrogen/Creatinine [Mass ratio] 6.9 mg/mg Low 10.0 - 20.0 [facility] has implemented the eGFR calculation approach that does not have a coefficient for race that conforms to the NKF-ASN Task Force Recommendations. [facility] CBC Auto Differentialon 11-0 Basophils (Bld) [#/Vol] 0.01 10*3/uL [facility] Basophils/100 WBC (Bld) 0.1 % [facility] Eosinophils (Bld) [#/Vol] 0 10*3/uL [facility] Eosinophils/100 WBC (Bld) 0 % [facility] Erythrocyte distribution width (RBC) [Entitic vol] 13.7 % 11.6 - 14.8 % [facility] Hematocrit (Bld) [Volume fraction] 46.5 % 41.0 - 53.0 % [facility] Hemoglobin (Bld) [Mass/Vol] 15.8 g/dL 13.5 - 17.5 g/dL [facility] Immature granulocytes (Bld) [#/Vol] 0.03 10*3/uL [facility] Immature granulocytes/100 WBC (Bld) 0.3 % [facility] Comment on above: The IG parameter is the percentage of metamyelocytes, myelocytes and promyelocytes. An immature granulocyte count (IG) of 1% or more suggests the possibility of infection, an IG count of 3% is very likely related to an infection. Interpretation and review of laboratory results Abnormal [facility] Lymphocytes (Bld) [#/Vol] 0.86 10*3/uL Low [facility] Lymphocytes/100 WBC (Bld) 9.8 % [facility] MCH (RBC) [Entitic mass] 32.1 pg 26.0 - 34.0 pg [facility] MCHC (RBC) [Mass/Vol] 34 g/dL 31.0 - 37.0 g/dL [facility] MCV (RBC) [Entitic vol] 94.5 fL 80.0 - 100.0 fL [facility] Monocytes (Bld) [#/Vol] 0.72 10*3/uL [facility] Monocytes/100 WBC (Bld) 8.2 % [facility] Neutrophils (Bld) [#/Vol] 7.19 10*3/uL High [facility] Neutrophils/100 WBC (Bld) 81.6 % [facility] Nucleated RBC (Bld) [#/Vol] 0 10*3/uL [facility] Nucleated RBC/100 WBC (Bld) [Ratio] 0 % [facility] Platelet mean volume (Bld) [Entitic vol] 9.8 fL 9.4 - 12.4 fL [facility] Platelets (Bld) [#/Vol] 169 10*3/uL [facility] RBC (Bld) [#/Vol] 4.92 10*6/uL [facility] WBC (Bld) [#/Vol] 8.81 10*3/uL [facility] CBC WITH AUTO DIFFERENTIALon 04-20-2024 AUTO NRBC 0.0 % [facility] Comment on above: Performed By: #### L [id number] #### LAB [address] [place] [address] Dallin Donahue M.D. [id number] AUTO NRBC ABS COUNT 0.00 K/mcL Normal 0.00-0.00 [facility] Comment on above: Performed By: #### L [id number] #### MH LAB [address] [place] [address] Dallin Donahue M.D. [id number] BASOPHILS ABSOLUTE COUNT 0.01 K/mcL Normal 0.00-0.30 [facility] Comment on above: Performed By: #### L [id number] #### MH LAB [address] [place] [address] Dallin Donahue M.D. [id number] Basophils/100 WBC (Bld) 0.1 % [facility] Comment on above: Performed By: #### L [id number] #### MH LAB [address] [place] [address] Dallin Donahue M.D. [id number] Eosinophils (Bld) [#/Vol] 0.00 10*3/uL Normal 0.00-0.50 [facility] Comment on above: Performed By: #### L [id number] #### LAB [address] [place] [address] Dallin Donahue M.D. [id number] Eosinophils/100 WBC (Bld) 0.0 % Normal [facility] Comment on above: Performed By: #### L [id number] #### LAB [address] [place] [address] Dallin Donahue M.D. [id number] Erythrocyte distribution width (RBC) [Ratio] 13.7 % Normal 11.6-14.8 [facility] Comment on above: Performed By: #### L [id number] #### LAB [address] [place] [address] Dallin Donahue M.D. [id number] Hematocrit (Bld) [Volume fraction] 46.5 % Normal 41.0-53.0 [facility] Comment on above: Performed By: #### L [id number] #### LAB [address] [place] [address] Dallin Donahue M.D. [id number] Hemoglobin (Bld) [Mass/Vol] 15.8 g/dL Normal 13.5-17.5 [facility] Comment on above: Performed By: #### L [id number] #### LAB [address] [place] [address] Dallin Donahue M.D. [id number] IG ABSOLUTE 0.03 K/mcL Normal 0.00-0.30 [facility] Comment on above: Performed By: #### L [id number] #### LAB [address] [place] [address] Dallin Donahue M.D. [id number] IG PERCENT 0.30 % Normal [facility] Comment on above: Result Comment: The IG parameter is the percentage of metamyelocytes, myelocytes and promyelocytes. An immature granulocyte count (IG) of 1% or more suggests the possibility of infection, an IG count of 3% is very likely related to an infection. Performed By: #### L [id number] #### LAB [address] [place] [address] Dallin Donahue M.D. [id number] Lymphocytes (Bld) [#/Vol] 0.86 10*3/uL Low 0.90-4.00 [facility] Comment on above: Performed By: #### L [id number] #### LAB [address] [place] [address] Dallin Donahue M.D. [id number] Lymphocytes/100 WBC (Bld) 9.8 % Normal [facility] Comment on above: Performed By: #### L [id number] #### LAB [address] [place] [address] Dallin Donahue M.D. [id number] MCH (RBC) [Entitic mass] 32.1 pg Normal 26.0-34.0 [facility] Comment on above: Performed By: #### L [id number] #### LAB [address] [place] [address] Dallin Donahue M.D. [id number] MCV (RBC) [Entitic vol] 94.5 fL Normal 80.0-100.0 [facility] Comment on above: Performed By: #### L [id number] #### LAB [address] [place] [address] Dallin Donahue M.D. [id number] MEAN CORPUSCULAR HEMOGLOBIN CONC 34.0 g/dL Normal 31.0-37.0 [facility] Comment on above: Performed By: #### L [id number] #### LAB [address] [place] [address] Dallin Donahue M.D. [id number] Monocytes (Bld) [#/Vol] 0.72 10*3/uL Normal 0.30-0.90 [facility] Comment on above: Performed By: #### L [id number] #### LAB [address] [place] [address] Dallin Donahue M.D. [id number] Monocytes/100 WBC (Bld) 8.2 % Normal [facility] Comment on above: Performed By: #### L [id number] #### LAB [address] [place] [address] Dallin Donahue M.D. [id number] NEUTROPHILS ABSOLUTE COUNT 7.19 K/mcL High 1.70-7.00 [facility] Comment on above: Performed By: #### L [id number] #### LAB [address] [place] [address] Dallin Donahue M.D. [id number] Neutrophils/100 WBC (Bld) 81.6 % Normal [facility] Comment on above: Performed By: #### L [id number] #### LAB [address] [place] [address] Dallin Donahue M.D. [id number] Platelet mean volume (Bld) [Entitic vol] 9.8 fL Normal 9.4-12.4 [facility] Comment on above: Performed By: #### L [id number] #### LAB [address] [place] [address] Dallin Donahue M.D. [id number] Platelets (Bld) [#/Vol] 169 10*3/uL Normal 150-400 [facility] Comment on above: Performed By: #### L [id number] #### LAB [address] [place] [address] Dallin Donahue M.D. [id number] RBC (Bld) [#/Vol] 4.92 10*6/uL Normal 4.50-5.90 [facility] Comment on above: Performed By: #### L [id number] #### LAB [address] [place] [address] Dallin Donahue M.D. [id number] WBC (Bld) [#/Vol] 8.81 10*3/uL Normal 4.50-11.00 [facility] Comment on above: Performed By: #### L [id number] #### LAB [address] [place] [address] Dallin Donahue M.D. [id number] HEPATIC FUNCTION PANELon Albumin [Mass/Vol] 4.2 g/dL Normal 3.2-5.2 [facility] Comment on above: Performed By: #### L [id number] #### LAB [address] [place] [address] Dallin Donahue M.D. [id number] ALP [Catalytic activity/Vol] 250 U/L High 40-140 [facility] Comment on above: Performed By: #### L [id number] #### LAB [address] [place] [address] Dallin Donahue M.D. [id number] ALT [Catalytic activity/Vol] 103 U/L High 0-50 U/L [facility] Comment on above: Performed By: #### L [id number] #### LAB [address] [place] [address] Dallin Donahue M.D. [id number] AST [Catalytic activity/Vol] 227 U/L High 0-50 U/L [facility] Comment on above: Result Comment: Slig htly Hemolyzed Performed By: #### L [id number] #### LAB [address] [place] [address] Dallin Donahue M.D. [id number] Bilirubin [Mass/Vol] 1.5 mg/dL High 0.0-1.3 [facility] Comment on above: Performed By: #### L [id number] #### LAB [address] [place] [address] Dallin Donahue M.D. [id number] Bilirubin.indirect [Mass/Vol] 0.6 mg/dL High 0.0-0.4 [facility] Comment on above: Performed By: #### L [id number] #### LAB [address] [place] [address] Dallin Donahue M.D. [id number] Protein [Mass/Vol] 7.7 g/dL Normal 6.0-8.0 [facility] Comment on above: Performed By: #### L [id number] #### LAB [address] [place], [place] [address] Dallin Donahue M.D. [id number] Hepatic function 2000 panelO rdered By: Julieth Olivarez on 04-20-2024 Albumin [Mass/Vol] 4.2 g/dL 3.2 - 5.2 g/dL [facility] ALP [Catalytic activity/Vol] 250 U/L High 40 - 140 U/L [facility] ALT [Catalytic activity/Vol] 103 U/L High 0-50 U/L [facility] AST [Catalytic activity/Vol] 227 U/L High 0-50 U/L [facility] Comment on above: Slightly Hemolyzed Bilirubin [Mass/Vol] 1.5 mg/dL High 0.0 - 1 .3 mg/dL [facility] Bilirubin.conjugated [Mass/Vol] 0.6 mg/dL High 0.0 - 0.4 mg/dL [facility] Interpretation and review of laboratory results Abnormal [facility] Protein [Mass/Vol] 7.7 g/dL 6.0 - 8.0 g/dL [facility] MAGNESIUM LEVELon 04-20-2024 Magnesium [Mass/Vol] 2.2 mg/dL Normal 1.6-2.4 [facility] Comment on above: Performed By: #### L [id number] #### LAB [address] [place], [place] [address] Dallin Donahue M.D. [id number] Magnesium Levelon 04-20-2024 Magnesium [Mass/Vol] 2.2 mg/dL 1.6 - 2 .4 mg/dL [facility] Magnesium [Mass/Vol]on 04-20 Interpretation and review of laboratory results Normal [facility] No Panel Informationon 04-20 Interpretation and review of laboratory results Abnormal [facility] PHOSPHORUSon 04-20-2024 Phosphate [Mass/Vol] 2.0 mg/dL Low 2.7-4.5 [facility] Comment on above: Performed By: #### 4 [id number] #### LAB [address] [place] [address] Dallin Donahue M.D. [id number] Phosphoruson 04-20-2024 Phosphate [Mass/Vol] 2 mg/dL Low 2.7 - 4 .5 mg/dL [facility] ALCOHOLon 04-19-2024 Ethanol [Mass/Vol] 105 mg/dL High 0-10 [facility] Comment on above: Result Comment: INTOXICATION >80 MG/DL FATAL >400 MG/DL Testing performed at [place] [address] Performed By: #### A IVETO #### [place] [address] ALCOHOL (ETHANOL),BLOODon Ethanol [Mass/Vol] 105 mg/dL High [facility] Comment on above: INTOXICATION >80 MG/DL FATAL >400 MG/DL Testing performed at [place] [address] Interpretation and review of laboratory results Abnormal [facility] CBCon 04-19-2024 ABSOLUTE BAS 0.0 10*3/uL Normal 0.0-0.2 [facility] Comment on above: Result Comment: Test ing performed at [place] [address] Performed By: #### C HEM7F, ACBC, LIVR, LIPA2 #### [place] [address] ABSOLUTE EOS 0.0 10*3/uL Normal 0.0-0.7 [facility] Comment on above: Performed By: #### C HEM7F, ACBC, LIVR, LIPA2 #### [place] [address] ABSOLUTE NEUTROPHIL COUNT 7.6 10*3/uL High 1.4-6.5 [facility] Comment on above: Performed By: #### C HEM7F, ACBC, LIVR, LIPA2 #### [place] [address] Basophils/100 WBC (Bld) 0.3 % Normal 0.0-2.0 [facility] Comment on above: Performed By: #### C HEM7F, ACBC, LIVR, LIPA2 #### Testing performed at [address] [address] DTYPE AUTO DIFF Normal [facility] Comment on above: Performed By: #### C HEM7F, ACBC, LIVR, LIPA2 #### Testing performed at [address] [address] Eosinophils/100 WBC (Bld) 0.1 % Normal 0.0-11.0 [facility] Comment on above: Performed By: #### C HEM7F, ACBC, LIVR, LIPA2 #### [place] [address] Lymphocytes (Bld) [#/Vol] 1.5 10*3/uL Normal 1.2-3.4 [facility] Comment on above: Performed By: #### C HEM7F, ACBC, LIVR, LIPA2 #### [place] [address] Lymphocytes/100 WBC (Bld) 14.8 % Low 20.0-55.0 [facility] Comment on above: Performed By: #### C HEM7F, ACBC, LIVR, LIPA2 #### Testing performed at [place] [id number] Monocytes (Bld) [#/Vol] 1.0 10*3/uL High 0.0-0.7 [facility] Comment on above: Performed By: #### C HEM7F, ACBC, LIVR, LIPA2 #### Testing performed at [place] [id number] Monocytes/100 WBC (Bld) 9.6 % Normal 0.0-10.0 [facility] Comment on above: Performed By: #### C HEM7F, ACBC, LIVR, LIPA2 #### Testing performed at [address] [address] Neutrophils/100 WBC (Bld) 75.2 % High 37.0-75.0 [facility] Comment on above: Performed By: #### C HEM7F, ACBC, LIVR, LIPA2 #### [place] [address] Erythrocyte distribution width (RBC) [Ratio] 15.7 % High 11.5-14.5 [facility] Comment on above: Performed By: #### C HEM7F, ACBC, LIVR, LIPA2 #### [place] [address] Hematocrit (Bld) [Volume fraction] 45.8 % Normal 42.0-52.0 [facility] Comment on above: Performed By: #### C HEM7F, ACBC, LIVR, LIPA2 #### [place] [address] Hemoglobin (Bld) [Mass/Vol] 15.6 g/dL Normal 14.0-18.0 [facility] Comment on above: Performed By: #### C HEM7F, ACBC, LIVR, LIPA2 #### [place] [address] MCH (RBC) [Entitic mass] 33.5 pg Normal 26.0-35.0 [facility] Comment on above: Performed By: #### C HEM7F, ACBC, LIVR, LIPA2 #### [place] [address] MCHC (RBC) [Mass/Vol] 34.0 g/dL Normal 27.0-37.0 [facility] Comment on above: Performed By: #### C HEM7F, ACBC, LIVR, LIPA2 #### [place] [address] MCV (RBC) [Entitic vol] 98.5 fL Normal 80.0-100.0 [facility] Comment on above: Performed By: #### C HEM7F, ACBC, LIVR, LIPA2 #### [place] [address] Platelet mean volume (Bld) [Entitic vol] 7.5 fL Normal 7.4-11.0 [facility] Comment on above: Performed By: #### C HEM7F, ACBC, LIVR, LIPA2 #### Testing performed at [address] [address] Platelets (Bld) [#/Vol] 233 10*3/uL Normal 130-400 [facility] Comment on above: Performed By: #### C HEM7F, ACBC, LIVR, LIPA2 #### Testing performed at [place] [id number] RBC (Bld) [#/Vol] 4.65 10*6/uL Normal 4.0-6.1 [facility] Comment on above: Performed By: #### C HEM7F, ACBC, LIVR, LIPA2 #### Testing performed at [address] [address] WBC (Bld) [#/Vol] 10.1 10*3/uL Normal 3.6-11.0 [facility] Comment on above: Performed By: #### C HEM7F, ACBC, LIVR, LIPA2 #### Testing performed at [address] [address] CBC, EDIF, PLATELETon 2023 ABSOLUTE BASOPHIL COUNT 0.0 10*3/uL 0.0 - 0.2 10*3/uL [facility] Comment on above: Testing performed at [place], [place] [address] Basophils/100 WBC (Bld) 0.3 % 0.0 - 2.0 % [facility] Differential cell count method Nom (Bld) AUTO DIFF % [facility] Eosinophils (Bld) [#/Vol] 0.0 10*3/uL 0.0 - 0.7 10*3/uL [facility] Eosinophils/100 WBC (Bld) 0.1 % 0.0 - 11.0 % [facility] [facility] Erythrocyte distribution width (RBC) [Ratio] 15.7 % High 11.5 - 14.5 % [facility] Hematocrit (Bld) [Volume fraction] 45.8 % 42.0 - 52.0 % [facility] Hemoglobin (Bld) [Mass/Vol] 15.6 g/dL [facility] Interpretation and review of laboratory results Abnormal [facility] Lymphocytes (Bld) [#/Vol] 1.5 10*3/uL 1.2 - 3.4 10*3/uL [facility] Lymphocytes/100 WBC (Bld) 14.8 % Low 20.0 - 55.0 % [facility] MCH (RBC) [Entitic mass] 33.5 pg 26.0 - 35.0 PG [facility] MCHC (RBC) [Mass/Vol] 34.0 g/dL [facility] MCV (RBC) [Entitic vol] 98.5 fL [facility] Monocytes (Bld) [#/Vol] 1.0 10*3/uL High 0.0 - 0.7 10*3/uL [facility] Monocytes/100 WBC (Bld) 9.6 % 0.0 - 10.0 % [facility] Neutrophils (Bld) [#/Vol] 7.6 10*3/uL High 1.4 - 6.5 10*3/uL [facility] Neutrophils/100 WBC (Bld) 75.2 % High 37.0 - 75.0 % [facility] Platelet mean volume (Bld) [Entitic vol] 7.5 fL [facility] Platelets (Bld) [#/Vol] 233 10*3/uL 130 - 400 10*3/uL [facility] RBC (Bld) [#/Vol] 4.65 10*6/uL 4.0 - 6.1 10*6/uL [facility] WBC (Bld) [#/Vol] 10.1 10*3/uL 3.6 - 11.0 10*3/uL [facility] CHEM 7 FASTINGon 04-19-2024 Chloride [Moles/Vol] 100 mmol/L Normal 98-107 [facility] [place] Comment on above: Result Comment: Lisbeth stone note: Triglyceride levels of 600mg/dL or higher may positively bias chloride results by approximately 2.1 mmol Performed By: #### C HEM7F, ACBC, LIVR, LIPA2 #### Testing performed at [address] [address] CO2 [Moles/Vol] 21 mmol/L Low 22-30 [facility] Comment on above: Performed By: #### C HEM7F, ACBC, LIVR, LIPA2 #### [place] [address] Creatinine [Mass/Vol] 1.00 mg/dL Normal 0.7-1.2 [facility] Comment on above: Performed By: #### C HEM7F, ACBC, LIVR, LIPA2 #### [place] [address] EST. GFR, 111 ml/min/1.73sq.m [facility] Comment on above: Performed By: #### C HEM7F, ACBC, LIVR, LIPA2 #### [place] [address] EST. GFR,Non 91 ml/min/1.73sq.m [facility] Comment on above: Performed By: #### C HEM7F, ACBC, LIVR, LIPA2 #### [place] [address] GFR Information Average GFR for 30-3 9 years old = 107. Normal [facility] Comment on above: Result Comment: Automatic Log Cut Off Sawyer blanca Kidney disease, GFR = <60. Kidney failure, GFR = <15. The GFR estimate is not adjusted for extreme body surface area or acute process, nor has it been validated for women or ethnic groups other than and . Testing performed at [place] [address] Performed By: #### C HEM7F, ACBC, LIVR, LIPA2 #### [place] [address] Glucose [Mass/Vol] 139 mg/dL High 70-100 [facility] Comment on above: Result Comment: NORMAL <100 mg/dL PREDIABETES 101-126 mg/dL DIABETES 126 mg/dL or higher Performed By: #### C HEM7F, ACBC, LIVR, LIPA2 #### [place] [address] Potassium [Moles/Vol] 3.6 mmol/L Normal 3.5-5.1 [facility] Comment on above: Performed By: #### C HEM7F, ACBC, LIVR, LIPA2 #### [place] [address] Sodium [Moles/Vol] 136 mmol/L Low 137-145 [facility] Comment on above: Performed By: #### C HEM7F, ACBC, LIVR, LIPA2 #### [place] [address] Urea nitrogen [Mass/Vol] 7 mg/dL Normal 7-20 [facility] Comment on above: Performed By: #### C HEM7F, ACBC, LIVR, LIPA2 #### [place] [address] CHEM 7 (LYTES,BUN,CREA,GLUC) on 04-19-2024 Chloride [Moles/Vol] 100 mmol/L [facility] Comment on above: Please note: Triglyc eride levels of 600mg/dL or higher may positively bias chloride results by approximately 2.1 mmol CO2 [Moles/Vol] 21 mmol/L Low [facility] Creatinine [Mass/Vol] 1.00 mg/dL [facility] GFR COMMENT Average GFR for 30-3 9 years old = 107. [facility] Comment on above: Chronic Kidney disea se, GFR = <60. Kidney failure, GFR = <15. The GFR estimate is not adjusted for extreme body surface area or acute process, nor has it been validated for women or ethnic groups other than and . Testing performed at [place], [place] [address] GFR/1.73 sq M.predicted among blacks MDRD (S/P/Bld) [Vol rate/Area] 111 mL/min/{1.73_m2} ml/min/1.73s q.m [facility] GFR/1.73 sq M.predicted among non-blacks MDRD (S/P/Bld) [Vol rate/Area] 91 mL/min/{1.73_m2} ml/min/1.73s q.m [facility] Glucose post fast [Mass/Vol] 139 mg/dL High [facility] Comment on above: NORMAL <100 mg/dL PREDIABETES 101-126 mg/dL DIABETES 126 mg/dL or higher Potassium [Moles/Vol] 3.6 mmol/L [facility] Sodium [Moles/Vol] 136 mmol/L Low [facility] Urea nitrogen [Mass/Vol] 7 mg/dL [facility] CT ABDOMEN/PELVIS WITH CONTR [place] 04-19-2024 CT [...] liver. 5. Small sliding-type hiatus hernia. Normal [facility] CT Abdomen and Pelvis W cont rast [...] Fatty liver. 5. Small sliding-type hiatus hernia. [facility] Radiology Study observation (narrative) [facility] CT Abdomen and Pelvis W cont rast IVOrdered By: Abdi Del Rio on 04-19-2024 [facility] Work Phone: Critical Careon 04-19-2024 Akhil Ann MD 04/19/2024 2:59 PM Critical Care Performed by: Akhil Ann MD Authorized by: Akhil Ann MD Total critical care time: 15 minutes Critical care was time spent personally by me on the following activities: examination of patient and pulse oximetry. [facility] ED Prov Noteon 04-19-2024 ED Prov Note [facility] ATTENDING NOTE: NAME: Yu Younger CSN: [id number] 33 y.o. PCP: Justin Pearce MD History: [...] Strain: Not on File (02/09/2019) Received from [facility] Financial [employer] Strain Financial Resource Strain: 0 Food Insecurity: Not on File (02/09/2019) Received from [facility] Food Insecurity Food: 0 Transportation Needs: Not on File (02/09/2019) Received from [facility] Transportation Needs Transportation: 0 Physical Activity: Not on File (02/09/2019) Received from [facility] Physical Activity Physical Activity: 0 Stress: Not on File (02/09/2019) Received from [facility] Stress Stress: 0 Social Connections: Not on File (02/09/2019) Received from [facility] Social Connections Social Connections and Isolation: 0 Housing Stability: Not on File (02/09/2019) Received from [facility] Housing Stability Housin MEDs: Previous Medications Medication [...] likely secondary (more content not included)... Normal [facility] HEPATIC FUNCTION PANELon Albumin [Mass/Vol] 4.5 g/dL [facility] ALP [Catalytic activity/Vol] 239 U/L High [facility] ALT [Catalytic activity/Vol] 153 U/L High [facility] Comment on above: Testing performed at [facility], [place], [place] [address] AST [Catalytic activity/Vol] 371 U/L High [facility] Bilirubin [Mass/Vol] 0.9 mg/dL [facility] Bilirubin.direct [Mass/Vol] 0.6 mg/dL High [facility] Protein [Mass/Vol] 7.9 g/dL [facility] LACTIC ACID, PLASMAon 2023 LACTIC ACID, PLASMA 1.7 mmol/L Normal 0.6-2.0 [facility] Comment on above: Performed By: #### L [id number] #### [facility] [address] [place] [address] Dallin Donahue M.D. [id number] LIPASEon 04-19-2024 Interpretation and review of laboratory results Abnormal [facility] Lipase [Catalytic activity/Vol] 4914 U/L Critically high 23 - 300 U/L [facility] Comment on above: Result called to kavita d back by: MARIBEL GOOD 04/19/2024 @ 04:47byACL Testing performed at [address] LIPASE,SERUMon 04-19-2024 LIPASE,SERUM 4914 U/L Critically high 23-300 [facility] Comment on above: Result Comment: Resu lt called to read back by: MARIBEL GOOD 04/19/2024 @ 04:47byACL Testing performed at [place] [address] Performed By: #### C HEM7F, ACBC, LIVR, LIPA2 #### [place] [address] LIVER PANELon 04-19-2024 Albumin [Mass/Vol] 4.5 g/dL Normal 3.5-5.0 [facility] Comment on above: Performed By: #### C HEM7F, ACBC, LIVR, LIPA2 #### [place] [address] ALP [Catalytic activity/Vol] 239 U/L High 38-126 [facility] Comment on above: Performed By: #### C HEM7F, ACBC, LIVR, LIPA2 #### [place] [address] ALT [Catalytic activity/Vol] 153 U/L High <50 [facility] Comment on above: Result Comment: Test ing performed at [place] [address] Performed By: #### C HEM7F, ACBC, LIVR, LIPA2 #### Testing performed at [address] [address] AST [Catalytic activity/Vol] 371 U/L High 17-59 [facility] Comment on above: Performed By: #### C HEM7F, ACBC, LIVR, LIPA2 #### Testing performed at [address] [address] Bilirubin [Mass/Vol] 0.9 mg/dL Normal 0.2-1.3 [facility] [place] Comment on above: Performed By: #### C HEM7F, ACBC, LIVR, LIPA2 #### Testing performed at [address] [address] Bilirubin.indirect [Mass/Vol] 0.6 mg/dL High 0-0.4 [facility] Comment on above: Performed By: #### C HEM7F, ACBC, LIVR, LIPA2 #### Testing performed at [address] [address] Protein [Mass/Vol] 7.9 g/dL Normal 6.3-8.2 [facility] Comment on above: Performed By: #### C HEM7F, ACBC, LIVR, LIPA2 #### Testing performed at [address] [address] Lactate [Moles/Vol]on 2023 Interpretation and review of laboratory results Normal [facility] Lactic Acid, Plasmaon 2023 Lactate [Moles/Vol] 1.7 mmol/L 0.6 - 2. 0 mmol/L [facility] MAGNESIUM LEVELon 04-19-2024 Magnesium [Mass/Vol] 1.4 mg/dL Low 1.6-2.4 [facility] Comment on above: Performed By: #### L [id number] #### LAB [address] [place], [place] [address] Dallin Donahue M.D. [id number] Magnesium Levelon 04-19-2024 Magnesium [Mass/Vol] 1.4 mg/dL Low 1.6 - 2 .4 mg/dL [facility] No Panel Informationon 04-19 Extra Tube Hold for add-ons. [facility] Comment on above: Auto resulted. [facility] Interpretation and review of laboratory results Abnormal [facility] Interpretation and review of laboratory results Abnormal [facility] PHOSPHORUSon 04-19-2024 Phosphate [Mass/Vol] 2.5 mg/dL Low 2.7-4.5 [facility] Comment on above: Performed By: #### L [id number] #### [facility] [address] [place] [address] Dallin Donahue M.D. [id number] Phosphoruson 04-19-2024 Phosphate [Mass/Vol] 2.5 mg/dL Low 2.7 - 4 .5 mg/dL [facility] TRIGLYCERIDESon 04-19-2024 Triglyceride [Mass/Vol] 77 mg/dL Normal 30-150 [facility] Comment on above: Result Comment: Kell onal Cholesterol Education Program Guidelines: Triglyceride Normal: <150 mg/dL Borderline High: 150-199 mg/dL High: 200-499 mg/dL Very High: greater than or equal to 500 mg/dL Performed By: #### 4 [id number] #### LAB [address] [address] Dallin Donahue M.D. [id number] Triglyceride [Mass/Vol]on Interpretation and review of laboratory results Normal [facility] Triglycerideson 04-19-2024 Triglyceride [Mass/Vol] 77 mg/dL 30 - 150 mg/dL [facility] Comment on above: National Cholesterol Education Program Guidelines: Triglyceride Normal: <150 mg/dL Borderline High: 150-199 mg/dL High: 200-499 mg/dL Very High: greater than or equal to 500 mg/dL CBC WITH AUTO DIFFERENTIALon 01-27-2024 AUTO NRBC 0.0 % Normal [facility] Comment on above: Performed By: #### L [id number] #### [facility] [address] [place] [address] Dallin Donahue M.D. [id number] AUTO NRBC ABS COUNT 0.00 K/mcL Normal 0.00-0.00 [facility] Comment on above: Performed By: #### L [id number] #### [facility] [address] [place] [address] Dallin Donahue M.D. [id number] BASOPHILS ABSOLUTE COUNT 0.04 K/mcL Normal 0.00-0.30 [facility] Comment on above: Performed By: #### L [id number] #### LAB [address] [place] [address] Dallin Donahue M.D. [id number] Basophils/100 WBC (Bld) 0.4 % Normal [facility] Comment on above: Performed By: #### L [id number] #### LAB [address] [place] [address] Dallin Donahue M.D. [id number] Eosinophils (Bld) [#/Vol] 0.08 10*3/uL Normal 0.00-0.50 [facility] Comment on above: Performed By: #### L [id number] #### LAB [address] [place] [address] Dallin Donahue M.D. [id number] Eosinophils/100 WBC (Bld) 0.9 % Normal [facility] Comment on above: Performed By: #### L [id number] #### LAB [address] [place] [address] Dallin Donahue M.D. [id number] Erythrocyte distribution width (RBC) [Ratio] 12.5 % Normal 11.6-14.8 [facility] Comment on above: Performed By: #### L [id number] #### LAB [address] [place] [address] Dallin Donahue M.D. [id number] Hematocrit (Bld) [Volume fraction] 40.6 % Low 41.0-53.0 [facility] Comment on above: Performed By: #### L [id number] #### LAB [address] [place] [address] Dallin Donahue M.D. [id number] Hemoglobin (Bld) [Mass/Vol] 14.0 g/dL Normal 13.5-17.5 [facility] Comment on above: Performed By: #### L [id number] #### LAB [address] [place] [address] Dallin Donahue M.D. [id number] IG ABSOLUTE 0.03 K/mcL Normal 0.00-0.30 [facility] Comment on above: Performed By: #### L [id number] #### LAB [address] [place] [address] Dallin Donahue M.D. [id number] IG PERCENT 0.30 % Normal [facility] Comment on above: Result Comment: The IG parameter is the percentage of metamyelocytes, myelocytes and promyelocytes. An immature granulocyte count (IG) of 1% or more suggests the possibility of infection, an IG count of 3% is very likely related to an infection. Performed By: #### L [id number] #### LAB [address] [place] [address] Dallin Donahue M.D. [id number] Lymphocytes (Bld) [#/Vol] 3.06 10*3/uL Normal 0.90-4.00 [facility] Comment on above: Performed By: #### L [id number] #### LAB [address] [place] [address] Dallin Donahue M.D. [id number] Lymphocytes/100 WBC (Bld) 34.3 % Normal [facility] Comment on above: Performed By: #### L [id number] #### LAB [address] [place] [address] Dallin Donahue M.D. [id number] MCH (RBC) [Entitic mass] 31.0 pg Normal 26.0-34.0 [facility] Comment on above: Performed By: #### L [id number] #### LAB [address] [place] [address] Dallin Donahue M.D. [id number] MCV (RBC) [Entitic vol] 89.8 fL Normal 80.0-100.0 [facility] Comment on above: Performed By: #### L [id number] #### LAB [address] [place] [address] Dallin Donahue M.D. [id number] MEAN CORPUSCULAR HEMOGLOBIN CONC 34.5 g/dL Normal 31.0-37.0 [facility] Comment on above: Performed By: #### L [id number] #### LAB [address] [place] [address] Dallin Donahue M.D. [id number] Monocytes (Bld) [#/Vol] 1.13 10*3/uL High 0.30-0.90 [facility] Comment on above: Performed By: #### L [id number] #### LAB [address] [place] [address] Dallin Donahue M.D. [id number] Monocytes/100 WBC (Bld) 12.7 % Normal [facility] Comment on above: Performed By: #### L [id number] #### LAB [address] [place] [address] Dallin Donahue M.D. [id number] NEUTROPHILS ABSOLUTE COUNT 4.57 K/mcL Normal 1.70-7.00 [facility] Comment on above: Performed By: #### L [id number] #### LAB [address] [place] [address] Dallin Donahue M.D. [id number] Neutrophils/100 WBC (Bld) 51.4 % Normal [facility] Comment on above: Performed By: #### L [id number] #### LAB [address] [address] Dallin Donahue M.D. [id number] Platelet mean volume (Bld) [Entitic vol] 10.7 fL Normal 9.4-12.4 [facility] Comment on above: Performed By: #### L [id number] #### LAB [address] [place] [address] Dallin Donahue M.D. [id number] Platelets (Bld) [#/Vol] 208 10*3/uL Normal 150-400 [facility] Comment on above: Performed By: #### L [id number] #### LAB [address] [place] [address] Dallin Donahue M.D. [id number] RBC (Bld) [#/Vol] 4.52 10*6/uL Normal 4.50-5.90 [facility] Comment on above: Performed By: #### L [id number] #### [facility] [address] [place] [address] Dallin Donahue M.D. [id number] WBC (Bld) [#/Vol] 8.91 10*3/uL Normal 4.50-11.00 [facility] Comment on above: Performed By: #### L [id number] #### [facility] [address] [place] [address] Dallin Donahue M.D. [id number] CHEM 01-27-2024 Anion gap [Moles/Vol] 20 mmol/L Normal 10-20 [facility] Comment on above: Order Comment: [facility] has implemented the eGFR calculation approach that does not have a coefficient for race that conforms to the NKF-ASN Task Force Recommendations. Performed By: #### L [id number] #### [facility] [address] [place] [address] Dallin Donahue M.D. [id number] Chloride [Moles/Vol] 101 mmol/L Normal 98-108 [facility] Comment on above: Order Comment: [facility] has implemented the eGFR calculation approach that does not have a coefficient for race that conforms to the NKF-ASN Task Force Recommendations. Performed By: #### L [id number] #### [facility] [address] [place] [address] Dallin Donahue M.D. [id number] Creatinine [Mass/Vol] 1.63 mg/dL High 0.50-1.30 [facility] Comment on above: Order Comment: [facility] has implemented the eGFR calculation approach that does not have a coefficient for race that conforms to the NKF-ASN Task Force Recommendations. Performed By: #### L [id number] #### [facility] [address] [place] [address] Dallin Donahue M.D. [id number] EGFR 57 mL/min/1.73 m2 Low >=60 [facility] Comment on above: Order Comment: [facility] has implemented the eGFR calculation approach that does not have a coefficient for race that conforms to the NKF-ASN Task Force Recommendations. Result Comment: Karoline mated GFR was calculated using the 2020 CKD-EPI creatinine equation. Performed By: #### L [id number] #### [facility] [address] [place] [address] Dallin Donahue M.D. [id number] Glucose [Mass/Vol] 80 mg/dL Normal 65-99 [facility] Comment on above: Order Comment: [facility] has implemented the eGFR calculation approach that does not have a coefficient for race that conforms to the NKF-ASN Task Force Recommendations. Performed By: #### L [id number] #### [facility] [address] [place] [address] Dallin Donahue M.D. [id number] HCO3 (Bld) [Moles/Vol] 19 mmol/L Low 21-32 [facility] Comment on above: Order Comment: [facility] has implemented the eGFR calculation approach that does not have a coefficient for race that conforms to the NKF-ASN Task Force Recommendations. Performed By: #### L [id number] #### [facility] [address] [place] [address] Dallin Donahue M.D. [id number] Potassium [Moles/Vol] 3.9 mmol/L Normal 3.5-5.1 [facility] Comment on above: Order Comment: [facility] has implemented the eGFR calculation approach that does not have a coefficient for race that conforms to the NKF-ASN Task Force Recommendations. Performed By: #### L [id number] #### [facility] [address] [place] [address] Dallin Donahue M.D. [id number] Sodium [Moles/Vol] 136 mmol/L Normal 135-145 [facility] Comment on above: Order Comment: [facility] has implemented the eGFR calculation approach that does not have a coefficient for race that conforms to the NKF-ASN Task Force Recommendations. Performed By: #### L [id number] #### [facility] [address] [place] [address] Dallin Donahue M.D. [id number] Urea nitrogen [Mass/Vol] 27 mg/dL High 8-25 [facility] Comment on above: Order Comment: [facility] has implemented the eGFR calculation approach that does not have a coefficient for race that conforms to the NKF-ASN Task Force Recommendations. Performed By: #### L [id number] #### [facility] [address] [place] [address] Dallin Donahue M.D. [id number] Urea nitrogen/Creatinine [Mass ratio] 16.6 mg/mg Normal 10.0-20.0 [facility] Comment on above: Order Comment: [facility] has implemented the eGFR calculation approach that does not have a coefficient for race that conforms to the NKF-ASN Task Force Recommendations. Performed By: #### L [id number] #### [facility] [address] [address] Dallin Donahue M.D. [id number] CHLAMYDIA/GONORRHOEAE AMPLIF IED RNAon 01-27-2024 CHLAMYDIA/GONORRHOEAE AMPLIFIED RNA CHLAMYDIA TRACHOMATIS AMPLIFIED RNA NEGATIVE NEISSERIA GONORRHOEAE AMPLIFIED RNA NEGATIVE Normal Negative [facility] Comment on above: Performed By: #### L [id number] #### [facility] [address] [place] [address] David Rocha M.D. [id number] CPKon 01-27-2024 CPK 308 U/L High 60-225 [facility] Comment on above: Performed By: #### L [id number] #### [facility] [address] [address] Dallin Donahue M.D. [id number] DRUGS OF ABUSE SCREEN, URINE on 01-27-2024 AMPHETAMINE SCREEN, URINE Positive Abnormal None Detected [facility] Comment on above: Order Comment: Scree n results should be used for treatment purposes only.Specimen will be kept for 2 weeks, if the sample is adequate. Confirmation testing can be initiated by calling the lab within 2 weeks. Result Comment: Urin e Amphetamine Cutoff: < 1000 ng/mL = None Detected Performed By: #### L [id number] #### [facility] [address] [address] Dallin Donahue M.D. [id number] BARBITURATE SCREEN URINE Not detected Normal None Detected [facility] Comment on above: Order Comment: Scree n results should be used for treatment purposes only.Specimen will be kept for 2 weeks, if the sample is adequate. Confirmation testing can be initiated by calling the lab within 2 weeks. Result Comment: Urin e Barbiturates Cutoff: < 200 ng/mL = None Detected Performed By: #### L [id number] #### [facility] [address] [place] [address] Dallin Donahue M.D. [id number] BENZODIAZEPINE SCREEN, URINE Not detected Normal None Detected [facility] Comment on above: Order Comment: Scree n results should be used for treatment purposes only.Specimen will be kept for 2 weeks, if the sample is adequate. Confirmation testing can be initiated by calling the lab within 2 weeks. Result Comment: Urin e Benzodiazepine Cutoff: < 200 ng/mL = None Detected Performed By: #### L [id number] #### [facility] [address] [place] [address] Dallin Donahue M.D. [id number] BUPRENORPHINE, URINE Not detected Normal None Detected [facility] Comment on above: Order Comment: Scree n results should be used for treatment purposes only.Specimen will be kept for 2 weeks, if the sample is adequate. Confirmation testing can be initiated by calling the lab within 2 weeks. Result Comment: Urin e Buprenorphine Cutoff: < 5 ng/mL = None Detected Performed By: #### L [id number] #### [facility] [address] [place] [address] Dallin Donahue M.D. [id number] CANNABINOID SCREEN URINE Not detected Normal None Detected [facility] Comment on above: Order Comment: Scree n results should be used for treatment purposes only.Specimen will be kept for 2 weeks, if the sample is adequate. Confirmation testing can be initiated by calling the lab within 2 weeks. Result Comment: Urin e Cannabinoids Cutoff: < 50 ng/mL = None Detected Performed By: #### L [id number] #### [facility] [address] [address] Dallin Donahue M.D. [id number] COCAINE, SCREEN URINE Not detected Normal None Detected [facility] Comment on above: Order Comment: Scree n results should be used for treatment purposes only.Specimen will be kept for 2 weeks, if the sample is adequate. Confirmation testing can be initiated by calling the lab within 2 weeks. Result Comment: Urin e Cocaine Cutoff: < 300 ng/mL = None Detected Performed By: #### L [id number] #### [facility] [address] [address] Dallin Donahue M.D. [id number] FENTANYL, URINE Not detected Normal None Detected [facility] Comment on above: Order Comment: Scree n results should be used for treatment purposes only.Specimen will be kept for 2 weeks, if the sample is adequate. Confirmation testing can be initiated by calling the lab within 2 weeks. Result Comment: Urin e Fentanyl Cutoff: < 1 ng/mL = None Detected Performed By: #### L [id number] #### [facility] [address] [address] Dallin Donahue M.D. [id number] METHADONE SCREEN, URINE Positive Abnormal None Detected [facility] Comment on above: Order Comment: Scree n results should be used for treatment purposes only.Specimen will be kept for 2 weeks, if the sample is adequate. Confirmation testing can be initiated by calling the lab within 2 weeks. Result Comment: Urin e Methadone Cutoff: < 300 ng/mL = None Detected Performed By: #### L [id number] #### [facility] [address] [address] Dallin Donahue M.D. [id number] OPIATE SCREEN URINE Not detected Normal None Detected [facility] Comment on above: Order Comment: Scree n results should be used for treatment purposes only.Specimen will be kept for 2 weeks, if the sample is adequate. Confirmation testing can be initiated by calling the lab within 2 weeks. Result Comment: Urin e Opiates Cutoff: < 300 ng/mL = None Detected Performed By: #### L [id number] #### [facility] [address] [place], [place] [address] Dallin Donahue M.D. [id number] OXYCODONE SCREEN, URINE Not detected Normal None Detected [facility] Comment on above: Order Comment: Scree n results should be used for treatment purposes only.Specimen will be kept for 2 weeks, if the sample is adequate. Confirmation testing can be initiated by calling the lab within 2 weeks. Result Comment: Urin e Oxycodone Cutoff: < 100 ng/mL = None Detected Performed By: #### L [id number] #### [facility] [address] [place], [place] [address] Dallin Donahue M.D. [id number] ED Prov Noteon 01-27-2024 ED Prov Note [facility] ATTENDING NOTE: NAME: Yu Younger CSN: [id number] 33 y.o. PCP: Justin Pearce MD History: [...] Strain: Not on File (02/09/2019) Received from [facility] Financial Resource Strain Financial Resource Strain: 0 Food Insecurity: Not on File (02/09/2019) Received from [facility] Food Insecurity Food: 0 Transportation Needs: Not on File (02/09/2019) Received from [facility] Transportation Needs Transportation: 0 Physical Activity: Not on File (02/09/2019) Received from [facility] Physical Activity Physical Activity: 0 Stress: Not on File (02/09/2019) Received from [facility] Stress Stress: 0 Social Connections: Not on File (02/09/2019) Received from [facility] Social Connections Social Connections and Isolation: 0 Housing Stability: Not on File (02/09/2019) Received from [facility] Housing Stability Housin MEDs: Previous Medications Medication [...] is normal. (more content not included)... Normal [facility] TRICHOMONAS VAGINALIS AMPLIF IED RNAon 01-27-2024 TRICHOMONAS VAGINALIS AMPLIFIED RNA Negative Normal Negative [facility] Comment on above: Performed By: #### L [id number] #### [facility] [address] [place], [place] [address] Dallin Donahue M.D. [id number] URINALYSISon 01-27-2024 BACTERIA, URINE Rare Abnormal None Seen [facility] Comment on above: Order Comment: Micro scopic examination is performed on all urinalysis samples and only positive findings are reported. The test for blood on the chemical analytic portion of urinalysis may also be positive due to hemoglobinuria and myoglobinuria and if red blood cells are present they are quantified by microscopic examination. Performed By: #### L [id number] #### [facility] [address] [address] Dallin Donahue M.D. [id number] BILIRUBIN, URINE Negative Normal Negative [facility] Comment on above: Order Comment: Micro scopic examination is performed on all urinalysis samples and only positive findings are reported. The test for blood on the chemical analytic portion of urinalysis may also be positive due to hemoglobinuria and myoglobinuria and if red blood cells are present they are quantified by microscopic examination. Performed By: #### L [id number] #### [facility] [address] [address] Dallin Donahue M.D. [id number] BLOOD, URINE Negative Normal Negative [facility] Comment on above: Order Comment: Micro scopic examination is performed on all urinalysis samples and only positive findings are reported. The test for blood on the chemical analytic portion of urinalysis may also be positive due to hemoglobinuria and myoglobinuria and if red blood cells are present they are quantified by microscopic examination. Performed By: #### L [id number] #### [facility] [address] [address] Dallin Donahue M.D. [id number] Clarity (U) Cloudy Abnormal Clear [facility] Comment on above: Order Comment: Micro scopic examination is performed on all urinalysis samples and only positive findings are reported. The test for blood on the chemical analytic portion of urinalysis may also be positive due to hemoglobinuria and myoglobinuria and if red blood cells are present they are quantified by microscopic examination. Performed By: #### L [id number] #### [facility] [address] [address] Dallin Donahue M.D. [id number] Color (U) Yellow Normal Colorless, Yellow [facility] Comment on above: Order Comment: Micro scopic examination is performed on all urinalysis samples and only positive findings are reported. The test for blood on the chemical analytic portion of urinalysis may also be positive due to hemoglobinuria and myoglobinuria and if red blood cells are present they are quantified by microscopic examination. Performed By: #### L [id number] #### [facility] [address] [address] Dallin Donahue M.D. [id number] Glucose Ql (U) Negative Normal Negative [facility] Comment on above: Order Comment: Micro scopic examination is performed on all urinalysis samples and only positive findings are reported. The test for blood on the chemical analytic portion of urinalysis may also be positive due to hemoglobinuria and myoglobinuria and if red blood cells are present they are quantified by microscopic examination. Performed By: #### L [id number] #### [facility] [address] [address] aDllin Donahue M.D. [id number] Hyaline casts LM Ql (Urine sed) >20 Abnormal 0-2 [facility] Comment on above: Order Comment: Micro scopic examination is performed on all urinalysis samples and only positive findings are reported. The test for blood on the chemical analytic portion of urinalysis may also be positive due to hemoglobinuria and myoglobinuria and if red blood cells are present they are quantified by microscopic examination. Performed By: #### L [id number] #### LAB [address] [address] Dallin Donahue M.D. [id number] Ketones Ql (U) 20 mg/dL Abnormal Negative [facility] Comment on above: Order Comment: Micro scopic examination is performed on all urinalysis samples and only positive findings are reported. The test for blood on the chemical analytic portion of urinalysis may also be positive due to hemoglobinuria and myoglobinuria and if red blood cells are present they are quantified by microscopic examination. Performed By: #### L [id number] #### [facility] [address] [address] Dallin Donahue M.D. [id number] Leukocyte esterase Test strip Ql (U) Negative Normal Negative [facility] Comment on above: Order Comment: Micro scopic examination is performed on all urinalysis samples and only positive findings are reported. The test for blood on the chemical analytic portion of urinalysis may also be positive due to hemoglobinuria and myoglobinuria and if red blood cells are present they are quantified by microscopic examination. Performed By: #### L [id number] #### LAB [address] [place], [place] [address] Dallin Donahue M.D. [id number] MUCUS, URINE Few Abnormal None Seen, Rare [facility] Comment on above: Order Comment: Micro scopic examination is performed on all urinalysis samples and only positive findings are reported. The test for blood on the chemical analytic portion of urinalysis may also be positive due to hemoglobinuria and myoglobinuria and if red blood cells are present they are quantified by microscopic examination. Performed By: #### L [id number] #### LAB [address] [id number] Dallin Dnoahue M.D. [id number] NITRITE, URINE Negative Normal Negative [facility] Comment on above: Order Comment: Micro scopic examination is performed on all urinalysis samples and only positive findings are reported. The test for blood on the chemical analytic portion of urinalysis may also be positive due to hemoglobinuria and myoglobinuria and if red blood cells are present they are quantified by microscopic examination. Performed By: #### L [id number] #### LAB [address] [place], [place] [address] Dallin Donahue M.D. [id number] pH (U) 5.5 [pH] Normal 5.0-7.0 [facility] Comment on above: Order Comment: Micro scopic examination is performed on all urinalysis samples and only positive findings are reported. The test for blood on the chemical analytic portion of urinalysis may also be positive due to hemoglobinuria and myoglobinuria and if red blood cells are present they are quantified by microscopic examination. Performed By: #### L [id number] #### [facility] [address] [place], [place] [address] Dallin Donahue M.D. [id number] Protein (U) [Mass/Vol] 30 mg/dL Abnormal Negative [facility] Comment on above: Order Comment: Micro scopic [...] including ammonium compounds. Performed By: #### L [id number] #### [facility] [address] [address] Dallin Donahue M.D. [id number] RBC LM.HPF (Urine sed) [#/Area] 8 /[HPF] High 0-3 [facility] Comment on above: Order Comment: Micro scopic examination is performed on all urinalysis samples and only positive findings are reported. The test for blood on the chemical analytic portion of urinalysis may also be positive due to hemoglobinuria and myoglobinuria and if red blood cells are present they are quantified by microscopic examination. Performed By: #### L [id number] #### [facility] [address] [place], [place] [address] Dallin Donahue M.D. [id number] Specific gravity (U) [Rel density] 1.031 High 1.005-1.025 [facility] Comment on above: Order Comment: Micro scopic examination is performed on all urinalysis samples and only positive findings are reported. The test for blood on the chemical analytic portion of urinalysis may also be positive due to hemoglobinuria and myoglobinuria and if red blood cells are present they are quantified by microscopic examination. Performed By: #### L [id number] #### [facility] [address] [place], [place] [address] Dallin Donahue M.D. [id number] UROBILINOGEN, URINE 2.0 mg/dL Abnormal <2.0 [facility] Comment on above: Order Comment: Micro scopic examination is performed on all urinalysis samples and only positive findings are reported. The test for blood on the chemical analytic portion of urinalysis may also be positive due to hemoglobinuria and myoglobinuria and if red blood cells are present they are quantified by microscopic examination. Performed By: #### L [id number] #### [facility] [address] [address] Dallin Donahue M.D. [id number] WBC LM.HPF (Urine sed) [#/Area] 4 /[HPF] Normal 0-5 [facility] Comment on above: Order Comment: Micro scopic examination is performed on all urinalysis samples and only positive findings are reported. The test for blood on the chemical analytic portion of urinalysis may also be positive due to hemoglobinuria and myoglobinuria and if red blood cells are present they are quantified by microscopic examination. Performed By: #### L [id number] #### [facility] [address] [address] Dallin Donahue M.D. [id number] BASIC METABOLIC PANELon 07-2 Anion gap [Moles/Vol] 29 mmol/L High 10-20 [facility] Comment on above: Order Comment: [facility] has implemented the eGFR calculation approach that does not have a coefficient for race that conforms to the NKF-ASN Task Force Recommendations. Performed By: #### L [id number] #### [facility] [address] [address] Dallin Donahue M.D. [id number] Calcium [Mass/Vol] 10.5 mg/dL High 8.4-10.2 [facility] Comment on above: Order Comment: [facility] has implemented the eGFR calculation approach that does not have a coefficient for race that conforms to the NKF-ASN Task Force Recommendations. Performed By: #### L [id number] #### [facility] [address] [address] Dallin Donahue M.D. [id number] Chloride [Moles/Vol] 97 mmol/L Low 98-108 [facility] Comment on above: Order Comment: [facility] has implemented the eGFR calculation approach that does not have a coefficient for race that conforms to the NKF-ASN Task Force Recommendations. Performed By: #### L [id number] #### [facility] [address] [address] Dallin Donahue M.D. [id number] Creatinine [Mass/Vol] 2.69 mg/dL High 0.50-1.30 [facility] Comment on above: Order Comment: [facility] has implemented the eGFR calculation approach that does not have a coefficient for race that conforms to the NKF-ASN Task Force Recommendations. Performed By: #### L [id number] #### LAB [address] [address] Dallin Donahue M.D. [id number] EGFR 31 mL/min/1.73 m2 Low >=60 [facility] Comment on above: Order Comment: [facility] has implemented the eGFR calculation approach that does not have a coefficient for race that conforms to the NKF-ASN Task Force Recommendations. Result Comment: Karoline mated GFR was calculated using the 2020 CKD-EPI creatinine equation. Performed By: #### L [id number] #### LAB [address] [place] [address] Dallin Donahue M.D. [id number] Glucose [Mass/Vol] 107 mg/dL High 65-99 [facility] Comment on above: Order Comment: [facility] has implemented the eGFR calculation approach that does not have a coefficient for race that conforms to the NKF-ASN Task Force Recommendations. Performed By: #### L [id number] #### [facility] [address] [address] Dallin Donahue M.D. [id number] HCO3 (Bld) [Moles/Vol] 14 mmol/L Low 21-32 [facility] Comment on above: Order Comment: [facility] has implemented the eGFR calculation approach that does not have a coefficient for race that conforms to the NKF-ASN Task Force Recommendations. Performed By: #### L [id number] #### LAB [address] [address] Dallin Donahue M.D. [id number] Potassium [Moles/Vol] 3.6 mmol/L Normal 3.5-5.1 [facility] Comment on above: Order Comment: [facility] has implemented the eGFR calculation approach that does not have a coefficient for race that conforms to the NKF-ASN Task Force Recommendations. Performed By: #### L [id number] #### [facility] [address] [address] Dallin Donahue M.D. [id number] Sodium [Moles/Vol] 136 mmol/L Normal 135-145 [facility] Comment on above: Order Comment: [facility] has implemented the eGFR calculation approach that does not have a coefficient for race that conforms to the NKF-ASN Task Force Recommendations. Performed By: #### L [id number] #### [facility] [address] [address] Dallin Donahue M.D. [id number] Urea nitrogen [Mass/Vol] 31 mg/dL High 8-25 [facility] Comment on above: Order Comment: [facility] has implemented the eGFR calculation approach that does not have a coefficient for race that conforms to the NKF-ASN Task Force Recommendations. Performed By: #### L [id number] #### LAB [address] [address] Dallin Donahue M.D. [id number] Urea nitrogen/Creatinine [Mass ratio] 11.5 mg/mg Normal 10.0-20.0 [facility] Comment on above: Order Comment: [facility] has implemented the eGFR calculation approach that does not have a coefficient for race that conforms to the NKF-ASN Task Force Recommendations. Performed By: #### L [id number] #### [facility] [address] [address] Dallin Donahue M.D. [id number] CBC WITH AUTO DIFFERENTIALon 01-05-2024 AUTO NRBC 0.0 % Normal [facility] Comment on above: Performed By: #### L [id number] #### [facility] [address] [address] Dallin Donahue M.D. [id number] AUTO NRBC ABS COUNT 0.00 K/mcL Normal 0.00-0.00 [facility] Comment on above: Performed By: #### L [id number] #### LAB [address] [address] Dallin Donahue M.D. [id number] BASOPHILS ABSOLUTE COUNT 0.08 K/mcL Normal 0.00-0.30 [facility] Comment on above: Performed By: #### L [id number] #### LAB [address] [address] Dallin Donahue M.D. [id number] Basophils/100 WBC (Bld) 0.8 % Normal [facility] Comment on above: Performed By: #### L [id number] #### LAB [address] [address] Dallin Donahue M.D. [id number] Eosinophils (Bld) [#/Vol] 0.01 10*3/uL Normal 0.00-0.50 [facility] Comment on above: Performed By: #### L [id number] #### LAB [address] [address] Dallin Donahue M.D. [id number] Eosinophils/100 WBC (Bld) 0.1 % Normal [facility] Comment on above: Performed By: #### L [id number] #### LAB [address] [place] [address] Dallin Donahue M.D. [id number] Erythrocyte distribution width (RBC) [Ratio] 13.4 % Normal 11.6-14.8 [facility] Comment on above: Performed By: #### L [id number] #### LAB [address] [address] Dallin Donahue M.D. [id number] Hematocrit (Bld) [Volume fraction] 43.0 % Normal 41.0-53.0 [facility] Comment on above: Performed By: #### L [id number] #### LAB [address] [place] [address] Dallin Donahue M.D. [id number] Hemoglobin (Bld) [Mass/Vol] 15.1 g/dL Normal 13.5-17.5 [facility] Comment on above: Performed By: #### L [id number] #### LAB [address] [address] Dallin Donahue M.D. [id number] IG ABSOLUTE 0.05 K/mcL Normal 0.00-0.30 [facility] Comment on above: Performed By: #### L [id number] #### LAB [address] [address] Dallin Donahue M.D. [id number] IG PERCENT 0.50 % Normal [facility] Comment on above: Result Comment: The IG parameter is the percentage of metamyelocytes, myelocytes and promyelocytes. An immature granulocyte count (IG) of 1% or more suggests the possibility of infection, an IG count of 3% is very likely related to an infection. Performed By: #### L [id number] #### LAB [address] [place] [address] Dallin Donahue M.D. [id number] Lymphocytes (Bld) [#/Vol] 1.12 10*3/uL Normal 0.90-4.00 [facility] Comment on above: Performed By: #### L [id number] #### LAB [address] [address] Dallin Donahue M.D. [id number] Lymphocytes/100 WBC (Bld) 10.5 % Normal [facility] Comment on above: Performed By: #### L [id number] #### LAB [address] [address] Dallin Donahue M.D. [id number] MCH (RBC) [Entitic mass] 32.8 pg Normal 26.0-34.0 [facility] Comment on above: Performed By: #### L [id number] #### LAB [address] [address] Dallin Donahue M.D. [id number] MCV (RBC) [Entitic vol] 93.3 fL Normal 80.0-100.0 [facility] Comment on above: Performed By: #### L [id number] #### LAB [address] [address] Dallin Donahue M.D. [id number] MEAN CORPUSCULAR HEMOGLOBIN CONC 35.1 g/dL Normal 31.0-37.0 [facility] Comment on above: Performed By: #### L [id number] #### LAB [address] [address] Dallin Donahue M.D. [id number] Monocytes (Bld) [#/Vol] 1.20 10*3/uL High 0.30-0.90 [facility] Comment on above: Performed By: #### L [id number] #### LAB [address] [address] Dallin Donauhe M.D. [id number] Monocytes/100 WBC (Bld) 11.3 % Normal [facility] Comment on above: Performed By: #### L [id number] #### LAB [address] [address] Dallin Donahue M.D. [id number] NEUTROPHILS ABSOLUTE COUNT 8.18 K/mcL High 1.70-7.00 [facility] Comment on above: Performed By: #### L [id number] #### LAB [address] [place] [address] Dallin Donahue M.D. [id number] Neutrophils/100 WBC (Bld) 76.8 % Normal [facility] Comment on above: Performed By: #### L [id number] #### LAB [address] [place] [address] Dallin Donahue M.D. [id number] Platelet mean volume (Bld) [Entitic vol] 10.3 fL Normal 9.4-12.4 [facility] Comment on above: Performed By: #### L [id number] #### LAB [address] [address] Dallin Donahue M.D. [id number] Platelets (Bld) [#/Vol] 275 10*3/uL Normal 150-400 [facility] Comment on above: Performed By: #### L [id number] #### [facility] [address] [place], [place] [address] Dallin Donahue M.D. [id number] RBC (Bld) [#/Vol] 4.61 10*6/uL Normal 4.50-5.90 [facility] Comment on above: Performed By: #### L [id number] #### [facility] [address] [address] Dallin Donahue M.D. [id number] WBC (Bld) [#/Vol] 10.64 10*3/uL Normal 4.50-11.00 [facility] Comment on above: Performed By: #### L [id number] #### [facility] [address] [address] Dallin Donahue M.D. [id number] CPKon 01-05-2024 CPK 7679 U/L High 60-225 [facility] Comment on above: Performed By: #### L [id number] #### LAB [address] [address] Dallin Donahue M.D. [id number] CT HEAD OR BRAIN WITHOUT CON TRASTon [...] ID: [id number] Dictated by: BHAVESH LING on [place] Jan 05, 2024 3:24:55 AM EDT Transcribed by: BHAVESH LING on [place] Jan 05, 2024 3:24:55 AM EDT Finalized by: BHAVESH LING on [place] Jan 05, 2024 3:24:55 AM EDT Normal [facility] Comment on above: Order Comment: Injur y/Trauma or Illness?:Illness/Other How long have you had these symptoms (acute/chronic)?:Acute Reason for exam?:ams, seizures, medication reaction vs OD Type of Exam?:Initial Additional signs and symptoms?:. DRUGS OF ABUSE SCREEN, URINE on 01-05-2024 AMPHETAMINE SCREEN, URINE Positive Abnormal None Detected [facility] Comment on above: Order Comment: Scree n results should be used for treatment purposes only.Specimen will be kept for 2 weeks, if the sample is adequate. Confirmation testing can be initiated by calling the lab within 2 weeks. Result Comment: Urin e Amphetamine Cutoff: < 1000 ng/mL = None Detected Performed By: #### L [id number] #### [facility] [address] [address] Dallin Donahue M.D. [id number] BARBITURATE SCREEN URINE Not detected Normal None Detected [facility] Comment on above: Order Comment: Scree n results should be used for treatment purposes only.Specimen will be kept for 2 weeks, if the sample is adequate. Confirmation testing can be initiated by calling the lab within 2 weeks. Result Comment: Urin e Barbiturates Cutoff: < 200 ng/mL = None Detected Performed By: #### L [id number] #### [facility] [address] [place], [place] [address] Dallin Donahue M.D. [id number] BENZODIAZEPINE SCREEN, URINE Not detected Normal None Detected [facility] Comment on above: Order Comment: Scree n results should be used for treatment purposes only.Specimen will be kept for 2 weeks, if the sample is adequate. Confirmation testing can be initiated by calling the lab within 2 weeks. Result Comment: Urin e Benzodiazepine Cutoff: < 200 ng/mL = None Detected Performed By: #### L [id number] #### [facility] [address] [address] Dallin Donahue M.D. [id number] BUPRENORPHINE, URINE Not detected Normal None Detected [facility] Comment on above: Order Comment: Scree n results should be used for treatment purposes only.Specimen will be kept for 2 weeks, if the sample is adequate. Confirmation testing can be initiated by calling the lab within 2 weeks. Result Comment: Urin e Buprenorphine Cutoff: < 5 ng/mL = None Detected Performed By: #### L [id number] #### [facility] [address] [address] Dallin Donahue M.D. [id number] CANNABINOID SCREEN URINE Positive Abnormal None Detected [facility] Comment on above: Order Comment: Scree n results should be used for treatment purposes only.Specimen will be kept for 2 weeks, if the sample is adequate. Confirmation testing can be initiated by calling the lab within 2 weeks. Result Comment: Urin e Cannabinoids Cutoff: < 50 ng/mL = None Detected Performed By: #### L [id number] #### [facility] [address] [address] Dallin Donahue M.D. [id number] COCAINE, SCREEN URINE Not detected Normal None Detected [facility] Comment on above: Order Comment: Scree n results should be used for treatment purposes only.Specimen will be kept for 2 weeks, if the sample is adequate. Confirmation testing can be initiated by calling the lab within 2 weeks. Result Comment: Urin e Cocaine Cutoff: < 300 ng/mL = None Detected Performed By: #### L [id number] #### [facility] [address] [address] Dallin Donahue M.D. [id number] FENTANYL, URINE Not detected Normal None Detected [facility] Comment on above: Order Comment: Scree n results should be used for treatment purposes only.Specimen will be kept for 2 weeks, if the sample is adequate. Confirmation testing can be initiated by calling the lab within 2 weeks. Result Comment: Urin e Fentanyl Cutoff: < 1 ng/mL = None Detected Performed By: #### L [id number] #### [facility] [address] [address] Dallin Donahue M.D. [id number] METHADONE SCREEN, URINE Positive Abnormal None Detected [facility] Comment on above: Order Comment: Scree n results should be used for treatment purposes only.Specimen will be kept for 2 weeks, if the sample is adequate. Confirmation testing can be initiated by calling the lab within 2 weeks. Result Comment: Urin e Methadone Cutoff: < 300 ng/mL = None Detected Performed By: #### L [id number] #### [facility] [address] [address] Dallin Donahue M.D. [id number] OPIATE SCREEN URINE Positive Abnormal None Detected [facility] Comment on above: Order Comment: Scree n results should be used for treatment purposes only.Specimen will be kept for 2 weeks, if the sample is adequate. Confirmation testing can be initiated by calling the lab within 2 weeks. Result Comment: Urin e Opiates Cutoff: < 300 ng/mL = None Detected Performed By: #### L [id number] #### [facility] [address] [address] Dallin Donahue M.D. [id number] OXYCODONE SCREEN, URINE Not detected Normal None Detected [facility] Comment on above: Order Comment: Scree n results should be used for treatment purposes only.Specimen will be kept for 2 weeks, if the sample is adequate. Confirmation testing can be initiated by calling the lab within 2 weeks. Result Comment: Urin e Oxycodone Cutoff: < 100 ng/mL = None Detected Performed By: #### L [id number] #### [facility] [address] [address] Dallin Donahue M.D. [id number] ED Procedureon 01-05-2024 ED Procedure EKG 12-lead Date/Time: 01/05/2024 1:47 AM Performed by: Tomasa Hoang MD Authorized by: Tomasa Hoang MD Interpreted by ED attending physician Comparison: compared with previous ECG Comparison to previous ECG: Sinus tach now present Rhythm: sinus rhythm and sinus tachycardia BPM: 123 Clinical impression: sinus tachycardia AUTHENTICATED BY TOMASA HOANG ON 01/05/2024 01:48:13 Normal [facility] ED Prov Noteon 01-05-2024 ED Prov Note [facility] ATTENDING NOTE: NAME: Yu Younger CSN: [id number] 33 y.o. PCP: Justin Pearce MD History: [...] Result Value Clarity, Urine Cloudy (*) Specific Norton 1.036 (*) Protein, Urine 100 (*) Ketones, Urine Trace (*) Bilirubin, Urine Positive (*) Urobilinogen, Urine >=4.0 (*) Blood, Urine Large (*) Leukocyte Esterase, Urine Small (*) WBCs, Urine 15 (*) RBCs, Urine 28 (*) Bacteria, Urine Rare (*) Hyaline Casts 11-20 (*) Sperm, Urine Rare (*) All other components within normal limi (more content not included)... Normal [facility] HEPATIC FUNCTION PANELon Albumin [Mass/Vol] 4.7 g/dL Normal 3.2-5.2 [facility] Comment on above: Performed By: #### L [id number] #### [facility] [address] [address] Dallin Donahue M.D. [id number] ALP [Catalytic activity/Vol] 137 U/L Normal 40-140 [facility] Comment on above: Performed By: #### L [id number] #### [facility] [address] [place], [place] [address] Dallin Donahue M.D. [id number] ALT [Catalytic activity/Vol] 112 U/L High 0-50 U/L [facility] Comment on above: Performed By: #### L [id number] #### LAB [address] [place], [place] [address] Dallin Donahue M.D. [id number] AST [Catalytic activity/Vol] 284 U/L High 0-50 U/L [facility] Comment on above: Performed By: #### L [id number] #### [facility] [address] [address] Dallin Donahue M.D. [id number] Bilirubin [Mass/Vol] 0.8 mg/dL Normal 0.0-1.3 [facility] Comment on above: Performed By: #### L [id number] #### [facility] [address] [address] Dallin Donahue M.D. [id number] Bilirubin.indirect [Mass/Vol] 0.3 mg/dL Normal 0.0-0.4 [facility] Comment on above: Performed By: #### L [id number] #### [facility] [address] [address] Dallin Donahue M.D. [id number] Protein [Mass/Vol] 8.2 g/dL High 6.0-8.0 [facility] Comment on above: Performed By: #### L [id number] #### [facility] [address] [address] Dallin Donahue M.D. [id number] POC GLUCOSE - [facility] 024 Glucose [Mass/Vol] 112 mg/dL High 65-99 [facility] PROLACTINon 01-05-2024 PROLACTIN 4.0 ng/mL Normal 1.6-18.8 [facility] Comment on above: Performed By: #### 4 [id number] #### [facility] [address] [address] Dallin Donahue M.D. [id number] URINALYSISon 01-05-2024 BACTERIA, URINE Rare Abnormal None Seen [facility] Comment on above: Order Comment: Micro scopic examination is performed on all urinalysis samples and only positive findings are reported. The test for blood on the chemical analytic portion of urinalysis may also be positive due to hemoglobinuria and myoglobinuria and if red blood cells are present they are quantified by microscopic examination. Performed By: #### 4 6625 #### LAB [address] [address] Dallin Donahue M.D. [id number] BILIRUBIN, URINE Positive Abnormal Negative [facility] Comment on above: Order Comment: Micro scopic [...] By: #### 4 6625 #### LAB [address] [address] Dallin Donahue M.D. [id number] BLOOD, URINE Large Abnormal Negative [facility] Comment on above: Order Comment: Micro scopic examination is performed on all urinalysis samples and only positive findings are reported. The test for blood on the chemical analytic portion of urinalysis may also be positive due to hemoglobinuria and myoglobinuria and if red blood cells are present they are quantified by microscopic examination. Performed By: #### 4 6625 #### LAB [address] [address] Dallin Donahue M.D. [id number] Clarity (U) Cloudy Abnormal Clear [facility] Comment on above: Order Comment: Micro scopic examination is performed on all urinalysis samples and only positive findings are reported. The test for blood on the chemical analytic portion of urinalysis may also be positive due to hemoglobinuria and myoglobinuria and if red blood cells are present they are quantified by microscopic examination. Performed By: #### 4 6625 #### LAB [address] [address] Dallin Donahue M.D. [id number] Color (U) Yellow Normal Colorless, Yellow [facility] Comment on above: Order Comment: Micro scopic examination is performed on all urinalysis samples and only positive findings are reported. The test for blood on the chemical analytic portion of urinalysis may also be positive due to hemoglobinuria and myoglobinuria and if red blood cells are present they are quantified by microscopic examination. Performed By: #### 4 [id number] #### LAB [address] [address] Dallin Donahue M.D. [id number] Glucose Ql (U) Negative Normal Negative [facility] Comment on above: Order Comment: Micro scopic examination is performed on all urinalysis samples and only positive findings are reported. The test for blood on the chemical analytic portion of urinalysis may also be positive due to hemoglobinuria and myoglobinuria and if red blood cells are present they are quantified by microscopic examination. Performed By: #### 4 6625 #### LAB [address] [address] Dallin Donahue M.D. [id number] Hyaline casts LM Ql (Urine sed) 11-20 Abnormal 0-2 [facility] Comment on above: Order Comment: Micro scopic examination is performed on all urinalysis samples and only positive findings are reported. The test for blood on the chemical analytic portion of urinalysis may also be positive due to hemoglobinuria and myoglobinuria and if red blood cells are present they are quantified by microscopic examination. Performed By: #### 4 6625 #### LAB [address] [address] Dallin Donahue M.D. [id number] Ketones Ql (U) Trace Abnormal Negative [facility] Comment on above: Order Comment: Micro scopic examination is performed on all urinalysis samples and only positive findings are reported. The test for blood on the chemical analytic portion of urinalysis may also be positive due to hemoglobinuria and myoglobinuria and if red blood cells are present they are quantified by microscopic examination. Performed By: #### 4 6625 #### LAB [address] [address] Dallin Donahue M.D. [id number] Leukocyte esterase Test strip Ql (U) Small Abnormal Negative [facility] Comment on above: Order Comment: Micro scopic examination is performed on all urinalysis samples and only positive findings are reported. The test for blood on the chemical analytic portion of urinalysis may also be positive due to hemoglobinuria and myoglobinuria and if red blood cells are present they are quantified by microscopic examination. Performed By: #### 4 6625 #### LAB [address] [id number] Dallin Donahue M.D. [id number] MUCUS, URINE Rare Normal None Seen, Rare [facility] Comment on above: Order Comment: Micro scopic examination is performed on all urinalysis samples and only positive findings are reported. The test for blood on the chemical analytic portion of urinalysis may also be positive due to hemoglobinuria and myoglobinuria and if red blood cells are present they are quantified by microscopic examination. Performed By: #### 4 6625 #### LAB [address] [address] Dallin Donahue M.D. [id number] NITRITE, URINE Negative Normal Negative [facility] Comment on above: Order Comment: Micro scopic examination is performed on all urinalysis samples and only positive findings are reported. The test for blood on the chemical analytic portion of urinalysis may also be positive due to hemoglobinuria and myoglobinuria and if red blood cells are present they are quantified by microscopic examination. Performed By: #### 4 6625 #### LAB [address] [address] Dallin Donahue M.D. [id number] pH (U) 6.0 [pH] Normal 5.0-7.0 [facility] Comment on above: Order Comment: Micro scopic examination is performed on all urinalysis samples and only positive findings are reported. The test for blood on the chemical analytic portion of urinalysis may also be positive due to hemoglobinuria and myoglobinuria and if red blood cells are present they are quantified by microscopic examination. Performed By: #### 4 6625 #### LAB [address] [address] Dallin Donahue M.D. [id number] Protein (U) [Mass/Vol] 100 mg/dL Abnormal Negative [facility] Comment on above: Order Comment: Micro scopic examination is performed on all urinalysis samples and only positive findings are reported. The test for blood on the chemical analytic portion of urinalysis may also be positive due to hemoglobinuria and myoglobinuria and if red blood cells are present they are quantified by microscopic examination. Performed By: #### 4 6625 #### LAB [address] [address] Dallin Donahue M.D. [id number] RBC LM.HPF (Urine sed) [#/Area] 28 /[HPF] High 0-3 [facility] Comment on above: Order Comment: Micro scopic examination is performed on all urinalysis samples and only positive findings are reported. The test for blood on the chemical analytic portion of urinalysis may also be positive due to hemoglobinuria and myoglobinuria and if red blood cells are present they are quantified by microscopic examination. Performed By: #### 4 6625 #### LAB [address] [place] [address] Dallin Donahue M.D. [id number] Specific gravity (U) [Rel density] 1.036 High 1.005-1.025 [facility] Comment on above: Order Comment: Micro scopic examination is performed on all urinalysis samples and only positive findings are reported. The test for blood on the chemical analytic portion of urinalysis may also be positive due to hemoglobinuria and myoglobinuria and if red blood cells are present they are quantified by microscopic examination. Performed By: #### 4 6625 #### LAB [address] [place] [address] Dallin Donahue M.D. [id number] SPERM, URINE Rare Abnormal None Seen [facility] Comment on above: Order Comment: Micro scopic examination is performed on all urinalysis samples and only positive findings are reported. The test for blood on the chemical analytic portion of urinalysis may also be positive due to hemoglobinuria and myoglobinuria and if red blood cells are present they are quantified by microscopic examination. Performed By: #### 4 6625 #### LAB [address] [place] [address] Dallin Donahue M.D. [id number] UROBILINOGEN, URINE >=4.0 Abnormal <2.0 [facility] Comment on above: Order Comment: Micro scopic examination is performed on all urinalysis samples and only positive findings are reported. The test for blood on the chemical analytic portion of urinalysis may also be positive due to hemoglobinuria and myoglobinuria and if red blood cells are present they are quantified by microscopic examination. Performed By: #### 4 6625 #### LAB [address] [address] Dallin Donahue M.D. [id number] WBC LM.HPF (Urine sed) [#/Area] 15 /[HPF] High 0-5 [facility] Comment on above: Order Comment: Micro scopic examination is performed on all urinalysis samples and only positive findings are reported. The test for blood on the chemical analytic portion of urinalysis may also be positive due to hemoglobinuria and myoglobinuria and if red blood cells are present they are quantified by microscopic examination. Performed By: #### 4 6625 #### LAB [address] [place] [address] Dallin Donahue M.D. [id number] HCQPCRon 12-10-2020 Hepatitis C RNA 39289 IU/mL Abnormal [facility] ([place]) Comment on above: Result Comment: INTE RPRETATION: Positive for HCV RNA by PCR. (*) The Linear Range of this assay is 15 IU/mL to 100,000,000 IU/mL. Reference Range: Negative for HCV RNA Performed By: [place] [address] Outside Property Agent: Quentin Escamilla III, M.D. CLIA#: [id number] Phone#: Performed By: #### C BC, ADIFF, ANEU, BMP, GFR #### [address] [place] [address] HBCABon 12-09-2020 Hep B Core Ab Positive Abnormal NEGAT [facility] ([place]) Comment on above: Result Comment: Perf ormed By: [facility] [address] [place] [address] Outside Property Agent: Quentin Escamilla III, M.D. CLIA#: [id number] Phone#: Performed By: #### C BC, ADIFF, ANEU, BMP, GFR #### [address] [address] .GFRon 12-08-2020 GFR Non- >60 Normal [facility] ([place]) Comment on above: Result Comment: GFR Population [...] C BC, ADIFF, ANEU, BMP, GFR #### [address] [address] GFR >60 Normal [facility] ([place]) Comment on above: Result Comment: GFR Population [...] C BC, ADIFF, ANEU, BMP, GFR #### [address] [address] CMPon 12-08-2020 Albumin Level 4.3 G/dL Normal 3.2-4.8 [facility] ([place]) Comment on above: Performed By: #### C BC, ADIFF, ANEU, BMP, GFR #### [address] [place] [id number] Albumin/Globulin [Mass ratio] 1.3 {ratio} Normal 0.9-1.6 [facility] ([place]) Comment on above: Performed By: #### C BC, ADIFF, ANEU, BMP, GFR #### [address] [place] [id number] ALP [Catalytic activity/Vol] 126 U/L Normal 38-126 [facility] ([place]) Comment on above: Performed By: #### C BC, ADIFF, ANEU, BMP, GFR #### [address] [place] [id number] ALT [Catalytic activity/Vol] 69 U/L High 12-55 [facility] ([place]) Comment on above: Performed By: #### C BC, ADIFF, ANEU, BMP, GFR #### [address] [place] [id number] AST [Catalytic activity/Vol] 43 U/L High 8-34 [facility] ([place]) Comment on above: Performed By: #### C BC, ADIFF, ANEU, BMP, GFR #### [address] [place] [id number] Bili Total 0.20 mg/dL Normal 0.20-1.20 [facility] ([place]) Comment on above: Result Comment: Use of this assay is not recommended for patients undergoing treatment with eltrombopag due to the potential for falsely elevated results. Performed By: #### C BC, ADIFF, ANEU, BMP, GFR #### [place] [id number] BUN/Creatinine Ratio 17.8 ratio Normal 10.0-22.0 [facility] ([place]) Comment on above: Performed By: #### C BC, ADIFF, ANEU, BMP, GFR #### [place] [id number] Calcium [Mass/Vol] 10.0 mg/dL Normal 8.7-10.4 [facility] ([place]) Comment on above: Result Comment: No te - New Reference Range in effect 20 Performed By: #### C BC, ADIFF, ANEU, BMP, GFR #### [address] [address] Chloride [Moles/Vol] 109 mmol/L Normal 98-110 [facility] ([place]) Comment on above: Performed By: #### C BC, ADIFF, ANEU, BMP, GFR #### [address] [address] CO2 [Moles/Vol] 28 mmol/L Normal 22-32 [facility] ([place]) Comment on above: Performed By: #### C BC, ADIFF, ANEU, BMP, GFR #### [address] [address] Creatinine [Mass/Vol] 1.07 mg/dL Normal 0.60-1.40 [facility] ([place]) Comment on above: Performed By: #### C BC, ADIFF, ANEU, BMP, GFR #### [address] [address] Electrolyte Balance 4.0 mEq/L Normal 4.0-15.0 [facility] ([place]) Comment on above: Performed By: #### C BC, ADIFF, ANEU, BMP, GFR #### [address] [address] Globulin 3.2 G/dL Normal 1.5-3.8 [facility] ([place]) Comment on above: Performed By: #### C BC, ADIFF, ANEU, BMP, GFR #### [address] [address] Glucose [Mass/Vol] 104 mg/dL Normal 70-110 [facility] ([place]) Comment on above: Performed By: #### C BC, ADIFF, ANEU, BMP, GFR #### [address] [address] Potassium [Moles/Vol] 4.6 mmol/L Normal 3.5-5.0 [facility] ([place]) Comment on above: Performed By: #### C BC, ADIFF, ANEU, BMP, GFR #### [facility] [address] [place], [place] [address] Sodium [Moles/Vol] 141 mmol/L Normal 136-145 [facility] ([place]) Comment on above: Performed By: #### C BC, ADIFF, ANEU, BMP, GFR #### [address] [address] Total Protein 7.5 G/dL Normal 5.7-8.2 [facility] ([place]) Comment on above: Result Comment: No te - New Reference Range in effect 20 Performed By: #### C BC, ADIFF, ANEU, BMP, GFR #### [place] [id number] Urea nitrogen [Mass/Vol] 19.0 mg/dL Normal 8.0-22.0 [facility] ([place]) Comment on above: Performed By: #### C BC, ADIFF, ANEU, BMP, GFR #### [place] [id number] HBSABon 12-08-2020 Hep B Surf Ab 18.0 mIU/mL Normal >=10.0 [facility] ([place]) Comment on above: Result Comment: 0 to [...] C BC, ADIFF, ANEU, BMP, GFR #### [place] [id number] HBSAGon 12-08-2020 Hep B Surf Ag Non-Reactive Normal Non-Reactive [facility] ([place]) Comment on above: Performed By: #### C BC, ADIFF, ANEU, HBSAG, CMP, HBSAB, GFR, HCV1, HIV, RPR, AHBCOT, HCQPCR #### [address] [address] HCVon 12-08-2020 Hep C Ab Reactive Abnormal Non-Reactive [facility] ([place]) Comment on above: Performed By: #### C BC, ADIFF, ANEU, BMP, GFR #### [place] [address] Hep C Ab Int Normal [facility] ([place]) Comment on above: Result Comment: Reac tive: Samples with a value >/= 1.00 index are considered reactive for IgG antibodies to HCV. The presence of anti-HCV may be indicative of recent and/or past infection by Hepatitis C Virus. PATIENT MAY BE INFECTIONS. PLEASE INFORM TOW BAR DRIVER. Supplemental testing for HCV RNA may detect the presence of active HCV infection. This result is a reportable disease Infection Control has been notified. See Interp Performed By: #### C BC, ADLORRI, ANEU, BMP, GFR #### [place] [address] HIVon 12-08-2020 HIV 1/2 Ab Normal Non-Reactive [facility] ([place]) Comment on above: Result Comment: Non- Reactive Specimen is negative for anti-HIV-1 and anti-HIV-2. Performed By: #### C BC, MARY, ANEU, BMP, GFR #### [place] [address] RPRon 12-08-2020 Reagin Ab RPR Ql (S) Non-Reactive Normal Non-Reactive [facility] ([place]) Comment on above: Result Comment: The RPR [...] C BC, ADIFF, ANEU, BMP, GFR #### [place] [address] .Auto Diffon 12-07-2020 Basophil, Absolute 0.10 10 3/mcL Normal 0.00-0.27 [facility] ([place]) Comment on above: Performed By: #### C BC, ADIFF, ANEU, HBSAG, CMP, HBSAB, GFR, HCV1, HIV, RPR, AHBCOT, HCQPCR #### [address] [address] Basophils/100 WBC (Bld) 0.8 % Normal 0.0-2.5 [facility] ([place]) Comment on above: Performed By: #### C BC, ADIFF, ANEU, HBSAG, CMP, HBSAB, GFR, HCV1, HIV, RPR, AHBCOT, HCQPCR #### [address] [address] Eosinophil, Absolute 0.20 10 3/mcL Normal 0.00-0.65 [facility] ([place]) Comment on above: Performed By: #### C BC, ADIFF, ANEU, HBSAG, CMP, HBSAB, GFR, HCV1, HIV, RPR, AHBCOT, HCQPCR #### [address] [address] Eosinophils/100 WBC (Bld) 3.5 % Normal 0.0-6.0 [facility] ([place]) Comment on above: Performed By: #### C BC, ADIFF, ANEU, HBSAG, CMP, HBSAB, GFR, HCV1, HIV, RPR, AHBCOT, HCQPCR #### [address] [address] Lymphocyte, Absolute 1.80 10 3/mcL Normal 0.90-4.32 [facility] ([place]) Comment on above: Performed By: #### C BC, ADIFF, ANEU, HBSAG, CMP, HBSAB, GFR, HCV1, HIV, RPR, AHBCOT, HCQPCR #### [address] [address] Lymphocytes/100 WBC (Bld) 27.2 % Normal 20.0-40.0 [facility] ([place]) Comment on above: Performed By: #### C BC, ADIFF, ANEU, HBSAG, CMP, HBSAB, GFR, HCV1, HIV, RPR, AHBCOT, HCQPCR #### [address] [address] Monocyte, Absolute 0.40 10 3/mcL Normal 0.09-1.40 [facility] ([place]) Comment on above: Performed By: #### C BC, ADIFF, ANEU, HBSAG, CMP, HBSAB, GFR, HCV1, HIV, RPR, AHBCOT, HCQPCR #### [address] [address] Monocytes/100 WBC (Bld) 6.7 % Normal 2.0-13.0 [facility] ([place]) Comment on above: Performed By: #### C BC, ADIFF, ANEU, HBSAG, CMP, HBSAB, GFR, HCV1, HIV, RPR, AHBCOT, HCQPCR #### [place] [id number] Neutrophils/100 WBC (Bld) 61.8 % Normal 50.0-75.0 [facility] ([place]) Comment on above: Performed By: #### C BC, ADIFF, ANEU, HBSAG, CMP, HBSAB, GFR, HCV1, HIV, RPR, AHBCOT, HCQPCR #### [place] [address] .NEUABSon 12-07-2020 Neutrophil, Absolute 4.00 10 3/mcL Normal 2.25-8.10 [facility] ([place]) Comment on above: Performed By: #### C BC, ADIFF, ANEU, HBSAG, CMP, HBSAB, GFR, HCV1, HIV, RPR, AHBCOT, HCQPCR #### [address] [address] CBCon 12-07-2020 Erythrocyte distribution width (RBC) [Ratio] 13.8 % Normal 11.5-15.5 [facility] ([place]) Comment on above: Performed By: #### C BC, ADIFF, ANEU, HBSAG, CMP, HBSAB, GFR, HCV1, HIV, RPR, AHBCOT, HCQPCR #### [facility] [address] [place], [place] [address] Hematocrit (Bld) [Volume fraction] 39.7 % Low 40.0-52.0 [facility] ([place]) Comment on above: Performed By: #### C BC, ADIFF, ANEU, HBSAG, CMP, HBSAB, GFR, HCV1, HIV, RPR, AHBCOT, HCQPCR #### [place] [id number] Hgb 13.6 G/dL Normal 13.0-17.5 [facility] ([place]) Comment on above: Performed By: #### C BC, ADIFF, ANEU, HBSAG, CMP, HBSAB, GFR, HCV1, HIV, RPR, AHBCOT, HCQPCR #### [place] [id number] MCH (RBC) [Entitic mass] 30.9 pg Normal 27.0-33.0 [facility] [facility] ([place] Comment on above: Performed By: #### C BC, ADIFF, ANEU, HBSAG, CMP, HBSAB, GFR, HCV1, HIV, RPR, AHBCOT, HCQPCR #### [place] [id number] MCHC 34.3 G/dL Normal 32.0-36.0 [facility] ([place]) Comment on above: Performed By: #### C BC, ADIFF, ANEU, HBSAG, CMP, HBSAB, GFR, HCV1, HIV, RPR, AHBCOT, HCQPCR #### [place] [id number] MCV (RBC) [Entitic vol] 89.9 fL Normal 81.0-100.0 [facility] ([place]) Comment on above: Performed By: #### C BC, ADIFF, ANEU, HBSAG, CMP, HBSAB, GFR, HCV1, HIV, RPR, AHBCOT, HCQPCR #### [place] [id number] Platelet 251 10 3/mcL Normal 150-450 [facility] ([place]) Comment on above: Performed By: #### C BC, ADIFF, ANEU, HBSAG, CMP, HBSAB, GFR, HCV1, HIV, RPR, AHBCOT, HCQPCR #### [place] [address] Platelet mean volume (Bld) [Entitic vol] 8.4 fL Normal 6.4-10.5 [facility] ([place]) Comment on above: Performed By: #### C BC, ADIFF, ANEU, HBSAG, CMP, HBSAB, GFR, HCV1, HIV, RPR, AHBCOT, HCQPCR #### [place] [address] RBC 4.42 10 6/mcL Low 4.50-6.00 [facility] ([place]) Comment on above: Performed By: #### C BC, ADIFF, ANEU, HBSAG, CMP, HBSAB, GFR, HCV1, HIV, RPR, AHBCOT, HCQPCR #### [place] [address] WBC 6.50 10 3/mcL Normal 4.50-10.80 [facility] ([place]) Comment on above: Performed By: #### C BC, ADIFF, ANEU, HBSAG, CMP, HBSAB, GFR, HCV1, HIV, RPR, AHBCOT, HCQPCR #### [place] [address] .Auto Diffon 11-27-2020 Basophil, Absolute 0.00 10 3/mcL Normal 0.00-0.27 [facility] ([place]) Comment on above: Performed By: #### C BC, ADIFF, ANEU, BMP, GFR #### [place] [address] Basophils/100 WBC (Bld) 0.7 % Normal 0.0-2.5 [facility] ([place]) Comment on above: Performed By: #### C BC, ADIFF, ANEU, BMP, GFR #### [place] [address] Eosinophil, Absolute 0.10 10 3/mcL Normal 0.00-0.65 [facility] ([place]) Comment on above: Performed By: #### C BC, ADIFF, ANEU, BMP, GFR #### [address] [address] Eosinophils/100 WBC (Bld) 1.7 % Normal 0.0-6.0 [facility] ([place]) Comment on above: Performed By: #### C BC, ADIFF, ANEU, BMP, GFR #### [address] [address] Lymphocyte, Absolute 1.80 10 3/mcL Normal 0.90-4.32 [facility] ([place]) Comment on above: Performed By: #### C BC, ADIFF, ANEU, BMP, GFR #### [address] [address] Lymphocytes/100 WBC (Bld) 32.9 % Normal 20.0-40.0 [facility] ([place]) Comment on above: Performed By: #### C BC, ADIFF, ANEU, BMP, GFR #### [address] [address] Monocyte, Absolute 0.50 10 3/mcL Normal 0.09-1.40 [facility] ([place]) Comment on above: Performed By: #### C BC, ADIFF, ANEU, BMP, GFR #### [address] [address] Monocytes/100 WBC (Bld) 9.8 % Normal 2.0-13.0 [facility] ([place]) Comment on above: Performed By: #### C BC, ADIFF, ANEU, BMP, GFR #### [address] [address] Neutrophils/100 WBC (Bld) 54.9 % Normal 50.0-75.0 [facility] ([place]) Comment on above: Performed By: #### C BC, ADIFF, ANEU, BMP, GFR #### [address] [address] .GFRon 11-27-2020 GFR Non- >60 Normal [facility] ([place]) Comment on above: Result Comment: GFR Population [...] C BC, ADIFF, ANEU, BMP, GFR #### [address] [address] GFR >60 Normal [facility] ([place]) Comment on above: Result Comment: GFR Population [...] C BC, ADIFF, ANEU, BMP, GFR #### [address] [address] .NEUABSon 11-27-2020 Neutrophil, Absolute 3.00 10 3/mcL Normal 2.25-8.10 [facility] ([place]) Comment on above: Performed By: #### C BC, ADIFF, ANEU, BMP, GFR #### [address] [address] BMPon 11-27-2020 BUN/Creatinine Ratio 15.1 ratio Normal 10.0-22.0 [facility] ([place]) Comment on above: Performed By: #### C BC, ADIFF, ANEU, BMP, GFR #### [address] [address] Calcium [Mass/Vol] 9.9 mg/dL Normal 8.7-10.4 [facility] ([place]) Comment on above: Result Comment: No te - New Reference Range in effect 20 Performed By: #### C BC, ADIFF, ANEU, BMP, GFR #### [address] [address] Chloride [Moles/Vol] 107 mmol/L Normal 98-110 [facility] ([place]) Comment on above: Performed By: #### C BC, ADIFF, ANEU, BMP, GFR #### [address] [address] CO2 [Moles/Vol] 28 mmol/L Normal 22-32 [facility] ([place]) Comment on above: Performed By: #### C BC, ADIFF, ANEU, BMP, GFR #### [address] [address] Creatinine [Mass/Vol] 0.93 mg/dL Normal 0.60-1.40 [facility] ([place]) Comment on above: Performed By: #### C BC, ADIFF, ANEU, BMP, GFR #### [address] [address] Electrolyte Balance 4.0 mEq/L Normal 4.0-15.0 [facility] ([place]) Comment on above: Performed By: #### C BC, ADIFF, ANEU, BMP, GFR #### [address] [address] Glucose [Mass/Vol] 102 mg/dL Normal 70-110 [facility] ([place]) Comment on above: Performed By: #### C BC, ADIFF, ANEU, BMP, GFR #### [address] [address] Potassium [Moles/Vol] 4.2 mmol/L Normal 3.5-5.0 [facility] ([place]) Comment on above: Performed By: #### C BC, ADIFF, ANEU, BMP, GFR #### [address] [address] Sodium [Moles/Vol] 139 mmol/L Normal 136-145 [facility] ([place]) Comment on above: Performed By: #### C BC, ADIFF, ANEU, BMP, GFR #### [place] [address] Urea nitrogen [Mass/Vol] 14.0 mg/dL Normal 8.0-22.0 [facility] ([place]) Comment on above: Performed By: #### C BC, ADIFF, ANEU, BMP, GFR #### [place] [id number] CBCon 11-27-2020 Erythrocyte distribution width (RBC) [Ratio] 13.9 % Normal 11.5-15.5 [facility] ([place]) Comment on above: Performed By: #### C BC, ADIFF, ANEU, BMP, GFR #### [place] [address] Hematocrit (Bld) [Volume fraction] 38.5 % Low 40.0-52.0 [facility] ([place]) Comment on above: Performed By: #### C BC, ADIFF, ANEU, BMP, GFR #### [place] [address] Hgb 13.0 G/dL Normal 13.0-17.5 [facility] ([place]) Comment on above: Performed By: #### C BC, ADIFF, ANEU, BMP, GFR #### [place] [address] MCH (RBC) [Entitic mass] 30.0 pg Normal 27.0-33.0 [facility] ([place]) Comment on above: Performed By: #### C BC, ADIFF, ANEU, BMP, GFR #### [place] [address] MCHC 33.9 G/dL Normal 32.0-36.0 [facility] ([place]) Comment on above: Performed By: #### C BC, ADIFF, ANEU, BMP, GFR #### [place] [address] MCV (RBC) [Entitic vol] 88.8 fL Normal 81.0-100.0 [facility] ([place]) Comment on above: Performed By: #### C BC, ADIFF, ANEU, BMP, GFR #### [address] [address] Platelet 203 10 3/mcL Normal 150-450 [facility] ([place]) Comment on above: Performed By: #### C BC, ADIFF, ANEU, BMP, GFR #### [address] [address] Platelet mean volume (Bld) [Entitic vol] 8.1 fL Normal 6.4-10.5 [facility] ([place]) Comment on above: Performed By: #### C BC, ADIFF, ANEU, BMP, GFR #### [place] [id number] RBC 4.33 10 6/mcL Low 4.50-6.00 [facility] ([place]) Comment on above: Performed By: #### C BC, ADIFF, ANEU, BMP, GFR #### [address] [address] WBC 5.50 10 3/mcL Normal 4.50-10.80 [facility] ([place]) Comment on above: Performed By: #### C BC, ADIFF, ANEU, BMP, GFR #### [place] [address] CT ABDOMEN/PELVIS W/O CONTRA STon 11-27-2020 CT [...] Date: 11/27/2020 1:37:40 AM Ordering Provider:[facility] ([place]) Provider Note - ED v2on 0 Provider [...] made to minimize errors. 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 Please call if questions.. [...] just going to take the patient to [place]. I spoke with the mother and explained [...] states that we will take him to [place] where there is neurology. Patient agreed and [...] Referenced From Triage - ED 19-Jul-2020 11:42 [facility] Risk Screen - Adult Emergenc yon 07-19-2020 Risk Screen - Adult Emergency Preferred Language: Preferred Language: Preferred Language for Discussing Health Care (patient/designee)Bruneian Advanced Directives: Advance Directive/DNRno Family Violence Adult: Abuse Screen: Are you or have you been threatened or abused physically, emotionally, or sexually by anyoneno Learning Assessment (Patient): Learning Assessment (Patient): Patient is Able to be Assessed for Learningyes Factors Influencing Readiness to Learnacuteness of illness Factors that Impact Ability to Learnnone Devices/Methods Used to Communicatenone Learning Preferencesaudio Cultural Considerationsnone Developmental Considerationsnone Moravian Considerationsnone Learning Assessment (Other Learner): Learning Assessment (Other Learner): Other learner availableno Pressure Injury/TB/Substance: Pressure Injury: Do you have a coughno Substance Use Current or Former Historynever: Street Drugs YES: Cigarette/Tobacco, e-Cigarette/Vaping, Alcohol Smoking Statuscurrent every day smoker Tobaccovaping Alcohol Useoccasionally Admission Risk Screen: Significant IndicatorsComplete CAGE: CAGE: Is this an injured patient at a Trauma Center ([facility]/[place]/ [place]): no Electronic Signatures: Brianna Stover (RN) (Signed 19-Jul-2020 11:48) Authored: Preferred Language, Advanced Directives, Family Violence Adult, Learning Assessment (Patient), Learning Assessment (Other Learner), Pressure Injury/TB/Substance, Pressure Injury, CAGE Last Updated: 19-Jul-2020 11:48 by Brianna Stover (RN) [facility] Triage - EDon 07-19-2020 Triage - ED Chart Review: ARRIVAL INFORMATION Means of Arrival: Ambulatory Mode of Arrival: private vehicle Arrival From: home Language: Spoken Language Preferred: Bruneian CHIEF COMPLAINT YU YOUNGER is a Male [...] obeys commands Best Verbal Response: (V5) oriented [place] Score: 15 Allergies: yes Patient has homicidal [...] Last Updated: 19-Jul-2020 11:47 by Brianna Stover) [facility] ECG 12-LEADon 12-04-2018 Caleb Starr DO 12/04/2018 3:14 AM ECG 12- Lead Date/Time: 12/04/2018 3:13 AM Performed by: Caleb Starr DO Authorized by: Caleb Starr DO Interpreted by ED physician: Normal sinus rhythm rate of [address] segment changes normal P wave and QRS axis. BPM: 89 [facility] Otheron 12-04-2018 Extra Tube Hold for add-ons. [facility] Comment on above: Auto resulted. TROPONINon 12-04-2018 Troponin I.cardiac [Mass/Vol] ng/mL <=45 ng/L [facility] Troponin I.cardiac [Mass/Vol] Normal [facility] Basic Metabolic Panelon 07-18 Calcium mass conc 9.0 mg/dL Normal 8.4-10.2 [facility] Comment on above: Performed By: #### C BCDIF, CHEM8 #### Unless otherwise noted, all testing performed by [place] [address] CLIA: [id number] Telecommunications Analyst: Dallin Donahue M.D. Chloride molar conc 107 mmol/L Normal 98-108 [facility] Comment on above: Performed By: #### C BCDIF, CHEM8 #### Unless otherwise noted, all testing performed by [place] [address] CLIA: [id number] Telecommunications Analyst: Dallin Donahue M.D. CO2 molar conc 27 mmol/L Normal 21-32 [facility] Comment on above: Performed By: #### C BCDIF, CHEM8 #### Unless otherwise noted, all testing performed by [place] [address] CLIA: [id number] Telecommunications Analyst: Dallin Donahue M.D. Creatinine mass conc 1.03 mg/dL Normal 0.50-1.30 [facility] Comment on above: Performed By: #### C BCDIF, CHEM8 #### Unless otherwise noted, all testing performed by [place] [address] CLIA: [id number] Telecommunications Analyst: Dallin Donahue M.D. GFR/1.73 sq M predicted among blacks MDRD vol rate/area (S/P/Bld) mL/min/{1.73_m2} Normal [facility] Comment on above: Result Comment: Afri can Zimbabwean GFR Calc Performed By: #### C BCDIF, CHEM8 #### Unless otherwise noted, all testing performed by [place] [address] CLIA: [id number] Telecommunications Analyst: Dallin Donahue M.D. GFR/1.73 sq M predicted among non-blacks MDRD vol rate/area (S/P/Bld) mL/min/{1.73_m2} [facility] Comment on above: Result Comment: Non- GFR [...] Unless otherwise noted, all testing performed by [place] [address] CLIA: [id number] Telecommunications Analyst: Dallin Donahue M.D. Glucose mass conc 100 mg/dL High 70-99 [facility] Comment on above: Result Comment: This test result might be falsely depressed or falsely elevated on samples drawn from patients taking Sulfasalazine and Sulfapyridine. Venipuncture should occur prior to taking either of these drugs. Performed By: #### C BCDIF, CHEM8 #### Unless otherwise noted, all testing performed by [place] [address] CLIA: [id number] Telecommunications Analyst: Dallin Donahue M.D. Potassium molar conc 3.9 mmol/L Normal 3.5-5.1 [facility] Comment on above: Performed By: #### C BCDIF, CHEM8 #### Unless otherwise noted, all testing performed by [place] [address] CLIA: [id number] Telecommunications Analyst: Dallin Donahue M.D. Sodium molar conc 139 mmol/L Normal 135-145 [facility] Comment on above: Performed By: #### C BCDIF, CHEM8 #### Unless otherwise noted, all testing performed by [place] [phone] CLIA: [id number] Telecommunications Analyst: Dallin Donahue M.D. Urea nitrogen mass conc 12 mg/dL Normal 8-25 [facility] Comment on above: Performed By: #### C BCDIF, CHEM8 #### Unless otherwise noted, all testing performed by [place] [phone] CLIA: [id number] Telecommunications Analyst: Dallin Donahue M.D. CBC with Diffon 07-27-2018 Basophils #/vol (Bld) 0.1 K/mcL Normal 0-0.2 [facility] Comment on above: Performed By: #### C BCDIF, CHEM8 #### Unless otherwise noted, all testing performed by [place] [address] CLIA: [id number] Telecommunications Analyst: Dallin Donahue M.D. Basophils/100 WBC (Bld) 0.8 % Normal [facility] Comment on above: Performed By: #### C BCDIF, CHEM8 #### Unless otherwise noted, all testing performed by [place] [address] CLIA: [id number] Telecommunications Analyst: Dallin Donahue M.D. Eosinophils #/vol (Bld) 0.1 K/mcL Normal 0-0.5 [facility] Comment on above: Performed By: #### C BCDIF, CHEM8 #### Unless otherwise noted, all testing performed by [place] [address] CLIA: [id number] Telecommunications Analyst: Dallin Donahue M.D. Eosinophils/100 WBC (Bld) 1.5 % Normal [facility] Comment on above: Performed By: #### C BCDIF, CHEM8 #### Unless otherwise noted, all testing performed by [place] [address] CLIA: [id number] Telecommunications Analyst: Dallin Donahue M.D. Erythrocyte distribution width Ratio (RBC) 12.7 % Normal 10-14.3 [facility] Comment on above: Performed By: #### C BCDIF, CHEM8 #### Unless otherwise noted, all testing performed by [place] [address] CLIA: [id number] Telecommunications Analyst: Dallin Donahue M.D. Hematocrit Volume Fraction (Bld) 43.3 % Normal 37.9-49.2 [facility] Comment on above: Performed By: #### C BCDIF, CHEM8 #### Unless otherwise noted, [facility] [place] [address] CLIA: [id number] Telecommunications Analyst: Dallin Donahue M.D. Hemoglobin mass conc (Bld) 14.6 g/dL Normal 12.9-16.9 [facility] Comment on above: Performed By: #### C BCDIF, CHEM8 #### Unless otherwise noted, all testing performed by [place] [address] CLIA: [id number] Telecommunications Analyst: Dallin Donahue M.D. Lymphocytes #/vol (Bld) 1.7 K/mcL Normal 0.9-3.6 [facility] Comment on above: Performed By: #### C BCDIF, CHEM8 #### Unless otherwise noted, all testing performed by [place] [address] CLIA: [id number] Telecommunications Analyst: Dallin Donahue M.D. Lymphocytes/100 WBC (Bld) 27.1 % Normal [facility] Comment on above: Performed By: #### C BCDIF, CHEM8 #### Unless otherwise noted, all testing performed by [place] [address] CLIA: [id number] Telecommunications Analyst: Dallin Donahue M.D. MCH Entitic mass (RBC) 30.3 pg Normal 27.7-34.6 [facility] Comment on above: Performed By: #### C BCDIF, CHEM8 #### Unless otherwise noted, all testing performed by [place] [address] CLIA: [id number] Telecommunications Analyst: Dallin Donahue M.D. MCHC mass conc (RBC) 33.7 g/dL Normal 32.9-35.5 [facility] Comment on above: Performed By: #### C BCDIF, CHEM8 #### Unless otherwise noted, all testing performed by [place] [address] CLIA: [id number] Telecommunications Analyst: Dallin Donahue M.D. MCV Entitic volume (RBC) 89.9 fL Normal 82.8-99.3 [facility] Comment on above: Performed By: #### C BCDIF, CHEM8 #### Unless otherwise noted, all testing performed by [place] [phone] CLIA: [id number] Telecommunications Analyst: Dallin Donahue M.D. Monocytes #/vol (Bld) 0.8 K/mcL High 0.2-0.6 [facility] Comment on above: Performed By: #### C BCDIF, CHEM8 #### Unless otherwise noted, all testing performed by [place] [phone] CLIA: [id number] Telecommunications Analyst: Dallin Donahue M.D. Monocytes/100 WBC (Bld) 12.1 % Normal [facility] Comment on above: Performed By: #### C BCDIF, CHEM8 #### Unless otherwise noted, all testing performed by [place] [phone] CLIA: [id number] Telecommunications Analyst: Dallin Donahue M.D. Neutrophils #/vol (Bld) 3.7 K/mcL Normal 1.4-6.8 [facility] Comment on above: Performed By: #### C BCDIF, CHEM8 #### Unless otherwise noted, all testing performed by [address], [place] [address] CLIA: [id number] Telecommunications Analyst: Dallin Donahue M.D. Platelet mean volume Entitic volume (Bld) 8.6 fL Normal 6.6-10.8 [facility] Comment on above: Performed By: #### C BCDIF, CHEM8 #### Unless otherwise noted, all testing performed by [place] [address] CLIA: [id number] Telecommunications Analyst: Dallin Donahue M.D. Platelets #/vol (Bld) 219 K/mcL Normal 139-354 [facility] Comment on above: Performed By: #### C BCDIF, CHEM8 #### Unless otherwise noted, all testing performed by [place] [address] CLIA: [id number] Telecommunications Analyst: Dallin Donahue M.D. RBC #/vol (Bld) 4.82 M/mcL Normal 4.0-5.5 [facility] Comment on above: Performed By: #### C BCDIF, CHEM8 #### Unless otherwise noted, all testing performed by [place] [address] CLIA: [id number] Telecommunications Analyst: Dallin Donahue M.D. Segmented Neut % 58.5 % Normal [facility] Comment on above: Performed By: #### C BCDIF, CHEM8 #### Unless otherwise noted, all testing performed by [place] [address] CLIA: [id number] Telecommunications Analyst: Dallin Donahue M.D. WBC #/vol (Bld) 6.4 K/mcL Normal 3.6-10.4 [facility] Comment on above: Performed By: #### C BCDIF, CHEM8 #### Unless otherwise noted, all testing performed by [facility] [address] [place], [place] [address] CLIA: [id number] Telecommunications Analyst: Dallin Donahue M.D. CT ABDO,PELVIS W/O CONTRASTo n 07-27-2018 CT ABDO,PELVIS W/O CONTRAST Final Report Accession No: [id number] Performed: Jul 26 2018 11:37PM Examination: [...] WEN M.D. Trans: cwion : cc: Normal [facility] US SCROTUMon 07-27-2018 US SCROTUM Final Report Accession No: [id number] Performed: Jul 27 2018 1:42AM Examination: [...] CARTER M.D. Trans: cwion : cc: Normal [facility] Urinalysis, Routineon 2018 Bilirubin,Urine Negative Normal NEG;NEGATIVE [facility] Comment on above: Performed By: #### U A #### Unless otherwise noted, all testing performed by [place] [address] CLIA: [id number] Telecommunications Analyst: Dallin Donahue M.D. Blood,Urine Large Abnormal NEG;NEGATIVE [facility] Comment on above: Performed By: #### U A #### Unless otherwise noted, all testing performed by [place] [address] CLIA: [id number] Telecommunications Analyst: Dallin Donahue M.D. Character Nom (U) Hazy Normal [facility] Comment on above: Performed By: #### U A #### Unless otherwise noted, all testing performed by [place] [address] CLIA: [id number] Telecommunications Analyst: Dallin Donahue M.D. Color Nom (U) Yellow Normal [facility] Comment on above: Performed By: #### U A #### Unless otherwise noted, all testing performed by [place] [phone] CLIA: [id number] Telecommunications Analyst: Dallin Donahue M.D. Glucose Ql (U) Negative Normal NEG;NEGATIVE [facility] Comment on above: Performed By: #### U A #### Unless otherwise noted, all testing performed by [place] [phone] CLIA: [id number] Telecommunications Analyst: Dallin Donahue M.D. Ketone,Urine Negative Normal NEG;NEGATIVE [facility] Comment on above: Performed By: #### U A #### Unless otherwise noted, all testing performed by [place] [phone] CLIA: [id number] Telecommunications Analyst: Dallin Donahue M.D. Leuk.Esterase,Urine Negative Normal Negative [facility] Comment on above: Performed By: #### U A #### Unless otherwise noted, all testing performed by [place] [phone] CLIA: [id number] Telecommunications Analyst: Dallin Donahue M.D. Nitrite,Urine Negative Normal NEG;NEGATIVE [facility] Comment on above: Performed By: #### U A #### Unless otherwise noted, all testing performed by [place] [phone] CLIA: [id number] Telecommunications Analyst: Dallin Donahue M.D. pH (U) 7.0 [pH] Normal 4.5-8.0 [facility] Comment on above: Performed By: #### U A #### Unless otherwise noted, all testing performed by [place] [address] CLIA: [id number] Telecommunications Analyst: Dallin Donahue M.D. Protein mass conc (U) Negative Normal NEG;NEGATIVE [facility] Comment on above: Performed By: #### U A #### Unless otherwise noted, all testing performed by [place] [address] CLIA: [id number] Telecommunications Analyst: Dallin Donahue M.D. RBC LM.HPF #/area (Urine sed) /[HPF] High 0-5 [facility] Comment on above: Performed By: #### U A #### Unless otherwise noted, all testing performed by [place] [address] CLIA: [id number] Telecommunications Analyst: Dallin Donahue M.D. Specific [place],Urine 1.018 Normal 1.003-1.029 [facility] Comment on above: Performed By: #### U A #### Unless otherwise noted, all testing performed by [place] [address] CLIA: [id number] Telecommunications Analyst: Dallin Donahue M.D. Urobilinogen,Urine NORMAL [facility] Comment on above: Result Comment: Urob ilinogen, Urine Reference Range: <2.0 mg/dL Performed By: #### U A #### Unless otherwise noted, all testing performed by [place] [address] CLIA: [id number] Telecommunications Analyst: Dallin Donahue M.D. WBC,Urine 3 /HPF Normal 0-5 [facility] Comment on above: Performed By: #### U A #### Unless otherwise noted, all testing performed by [facility] [address] [place], [place] [address] CLIA: [id number] Telecommunications Analyst: Dallin Donahue M.D. Basic Metabolic Panelon Calcium mass conc 9.0 mg/dL 8.4 - 10.2 mg/dL [facility] Chloride molar conc 107 mmol/L 98 - 108 mmol/L [facility] CO2 molar conc 27 mmol/L 21 - 32 mmol/L [facility] Creatinine mass conc 1.03 mg/dL 0.5 - 1 .3 mg/dL [facility] GFR/1.73 sq M predicted among blacks MDRD vol rate/area (S/P/Bld) mL/min/{1.73_m2} ml/min/1.73s q.m [facility] Comment on above: GFR Calc GFR/1.73 sq M predicted among non-blacks MDRD vol rate/area (S/P/Bld) mL/min/{1.73_m2} ml/min/1.73s q.m [facility] Comment on above: Non- GFR Calc eGFR [...] 100 mg/dL High 70 - 99 mg/dL [facility] Comment on above: This test result sharri ht be falsely depressed or falsely elevated on samples drawn from patients taking Sulfasalazine and Sulfapyridine. Venipuncture should occur prior to taking either of these drugs. Interpretation and review of laboratory results Abnormal [facility] Potassium molar conc 3.9 mmol/L 3.5 - 5 .1 mmol/L [facility] Sodium molar conc 139 mmol/L 135 - 145 mmol/L [facility] Urea nitrogen mass conc 12 mg/dL 8 - 25 mg/dL [facility] CBC AND DIFFERENTIALon 07-26 Basophils #/vol (Bld) 0.1 10*3/uL [facility] Basophils/100 WBC (Bld) 0.8 % [facility] Eosinophils #/vol (Bld) 0.1 10*3/uL [facility] [facility] Eosinophils/100 WBC (Bld) 1.5 % [facility] Erythrocyte distribution width Ratio (RBC) 12.7 % 10 - 14.3 % [facility] Hematocrit Volume Fraction (Bld) 43.3 % 37.9 - 49.2 % [facility] Hemoglobin mass conc (Bld) 14.6 g/dL 12.9 - 16.9 g/dL [facility] Interpretation and review of laboratory results Abnormal [facility] Lymphocytes #/vol (Bld) 1.7 10*3/uL [facility] Lymphocytes/100 WBC (Bld) 27.1 % [facility] MCH Entitic mass (RBC) 30.3 pg 27.7 - 34.6 pg [facility] MCHC mass conc (RBC) 33.7 g/dL 32.9 - 35.5 g/dL [facility] MCV Entitic volume (RBC) 89.9 fL [facility] Monocytes #/vol (Bld) 0.8 10*3/uL [facility] Monocytes/100 WBC (Bld) 12.1 % [facility] Neutrophils #/vol (Bld) 3.7 10*3/uL [facility] Platelet mean volume Entitic volume (Bld) 8.6 fL [facility] Platelets #/vol (Bld) 219 10*3/uL [facility] RBC #/vol (Bld) 4.82 10*6/uL [facility] Segmented Neut 58.5 % [facility] WBC #/vol (Bld) 6.4 10*3/uL [facility] URINALYSISon 07-26-2018 Bilirubin, Urine Negative NEG;NEGATIVE [facility] alth Blood, Urine Large Abnormal NEG;NEGATIVE [facility] Character Nom (U) [facility] Color Nom (U) Yellow [facility] Glucose Ql (U) Negative NEG;NEGATIVE mg/dL [facility] Interpretation and review of laboratory results Abnormal [facility] Ketones Ql (U) Negative NEG;NEGATIVE mg/dL [facility] Leukocyte esterase Test strip Ql (U) Negative Negative [facility] Nitrite, Urine Negative NEG;NEGATIVE [facility] pH (U) 7.0 [pH] [facility] Protein mass conc (U) Negative NEG;NE GATIVE mg/dL [facility] RBC #/vol (U) /uL [facility] Specific gravity Relative Density (U) 1.018 [facility] Urobilinogen, Urine NORMAL mg/dL [facility] Comment on above: Urobilinogen, Urine Reference Range: <2.0 mg/dL WBCs, Urine 3 [facility] Basic Metabolic Panelon 10- Calcium mass conc 9.6 mg/dL Normal 8.4-10.2 [facility] Comment on above: Performed By: #### C HEM8, MG #### Unless otherwise noted, all testing performed by [place] [address] CLIA: [id number] Telecommunications Analyst: Dallin Donahue M.D. Chloride molar conc 107 mmol/L Normal 98-108 [facility] Comment on above: Performed By: #### C HEM8, MG #### Unless otherwise noted, all testing performed by [place] [phone] CLIA: [id number] Telecommunications Analyst: Dallin Donahue M.D. CO2 molar conc 31 mmol/L Normal 21-32 [facility] Comment on above: Performed By: #### C HEM8, MG #### Unless otherwise noted, all testing performed by [place] [address] CLIA: [id number] Telecommunications Analyst: Dallin Donahue M.D. Creatinine mass conc 0.89 mg/dL Normal 0.50-1.30 [facility] Comment on above: Performed By: #### C HEM8, MG #### Unless otherwise noted, all testing performed by [place] [address] CLIA: [id number] Telecommunications Analyst: Dallin Donahue M.D. GFR/1.73 sq M predicted among blacks MDRD vol rate/area (S/P/Bld) mL/min/{1.73_m2} Normal [facility] Comment on above: Result Comment: Afri can Zimbabwean GFR Calc Performed By: #### C HEM8, MG #### Unless otherwise noted, all testing performed by [place] [address] CLIA: [id number] Telecommunications Analyst: Dallin Donahue M.D. GFR/1.73 sq M predicted among non-blacks MDRD vol rate/area (S/P/Bld) mL/min/{1.73_m2} Normal [facility] Comment on above: Result Comment: Non- GFR [...] Unless otherwise noted, all testing performed by [place] [address] CLIA: [id number] Telecommunications Analyst: Dallin Donahue M.D. Glucose mass conc 86 mg/dL Normal 70-99 [facility] Comment on above: Result Comment: This test result might be falsely depressed or falsely elevated on samples drawn from patients taking Sulfasalazine and Sulfapyridine. Venipuncture should occur prior to taking either of these drugs. Performed By: #### C HEM8, MG #### Unless otherwise noted, all testing performed by [place] [address] CLIA: [id number] Telecommunications Analyst: Dallin Donahue M.D. Potassium molar conc 4.6 mmol/L Normal 3.5-5.1 [facility] Comment on above: Performed By: #### C HEM8, MG #### Unless otherwise noted, all testing performed by [facility] [place] [address] CLIA: [id number] Telecommunications Analyst: Dallin Donahue M.D. Sodium molar conc 141 mmol/L Normal 135-145 [facility] Comment on above: Performed By: #### C HEM8, MG #### Unless otherwise noted, all testing performed by [place] [address] CLIA: [id number] Telecommunications Analyst: Dallin Donahue M.D. Urea nitrogen mass conc 16 mg/dL Normal 8-25 [facility] Comment on above: Performed By: #### C HEM8, MG #### Unless otherwise noted, all testing performed by [place] [address] CLIA: [id number] Telecommunications Analyst: Dallin Donahue M.D. Magnesiumon 04-02-2018 Magnesium mass conc 2.3 mg/dL Normal 1.6-2.4 [facility] Comment on above: Performed By: #### C HEM8, MG #### Unless otherwise noted, all testing performed by [place] [address] CLIA: [id number] Telecommunications Analyst: Dallin Donahue M.D. C URINEon 12-15-2017 C URINE [facility] [address] [facility], [id number] Name: YU YOUNGER : 1990 Admitting Provider:Gender: Male Financial [phone] Number: Location: [facility]; EX22; 1Admit 12/12/2017Date:Discharge 12/12/2017Date: MicrobiologyPROCEDURE: C URINE [...] Abnormal, C=Critical, f=Footnote,c=Corrected, i=Interp DataName: YU YOUNGERMRN: [id number] Print Date/ 12/15/2017 07:23 EDT [facility] NhadplugayAwfbyyfp27336 [facility] [id number] Name: YU YOUNGER : 1990 Admitting Provider:Gender: Male Financial [phone] Number: Location: [facility]; EX22; 1Admit 12/12/2017Date:Discharge 12/12/2017Date: MicrobiologySUSCEPTIBI LITY RESULTS Escherichia coliAntibiotic SUSY InterpCiprofloxacin SusceptibleGentamicin SusceptibleNitrofurantoin SusceptiblePiperacillin/T azobactam SusceptibleTrimethoprim/S ulfamethoxazole Susceptible L=Low, H= High, *= Abnormal, C=Critical, f=Footnote,c=Corrected, i=Interp DataName: HARI YOUNGER: [id number] Print Date12/15/2017 07:23 EDT Time: Normal [facility] Comment on above: Performed By: #### 1 [id number] ####[facility] [address] [place], [place] [id number] Medical Director: Kelvin Zamorano MD [facility]2017 Albumin/Globulin Ratio 1.1 {ratio} Normal [facility] Comment on above: Performed By: #### 9 500396, 955080, 936959 ####[facility] [address] [place], [place] [address] Medical Director: Kelvin Zamorano MD BUN/Creatinine Ratio 11.0 mg/mg Normal [facility] Comment on above: Performed By: #### 9 690589, 894902, 230020 ####[facility] [address] [place] [address] Medical Director: Kelvin Zamorano MD eGFR (non-black) mL/min/{1.73_m2} Normal [facility] Comment on above: Result Comment: Non [...] for drug dosing. Performed By: #### 9 778057, 169593, 305763 ####[facility] [address] [place] [address] Medical Director: Kelvin Zamorano MD Result Comment: Afri can Zimbabwean GFR CalcMedical judgement is necessary to interpret [...] drug dosing. Osmolality 279 mOsm/kg Normal 275-295 [facility] Comment on above: Performed By: #### 9 459913, 607167, 484486 ####[facility] [address] [place] [address] Medical Director: Kelvin Zamorano MD Albumin 4.0 g/dL Normal 3.4-5.0 [facility] Comment on above: Performed By: #### 9 910044, 078783, 365355 ####[facility] [address] [place] [address] Medical Director: Kelvin Zamorano MD Alk Phos 97 unit/L Normal 45-117 [facility] Comment on above: Performed By: #### 9 045443, 911354, 580134 ####[facility] [address] [place] [address] Medical Director: Kelvin Zamorano MD Bilirubin (total) 0.34 mg/dL Normal 0.20-1.00 [facility] Comment on above: Performed By: #### 9 233681, 108293, 134951 ####[facility] [address] [place] [address] Medical Director: Kelvin Zamorano MD Calcium 8.8 mg/dL Normal 8.5-10.5 [facility] Comment on above: Performed By: #### 9 038969, 544275, 496266 ####[facility] [address] [place] [address] Medical Director: Kelvin Zamorano MD Chloride 106 mmol/L Normal 100-109 [facility] Comment on above: Performed By: #### 9 921883, 624767, 529614 ####[facility] [address] [place] [address] Medical Director: Kelvin Zamorano MD CO2 31.1 mmol/L Normal 21.0-32.0 [facility] Comment on above: Performed By: #### 9 274194, 872589, 515174 ####[facility] [address] [place] [address] Medical Director: Kelvin Zamorano MD Creatinine 1.1 mg/dL Normal 0.7-1.3 [facility] Comment on above: Performed By: #### 9 259003, 454882, 329311 ####[facility] [address] [place] [address] Medical Director: Kelvin Zamorano MD Globulin 3.8 g/dL Normal [facility] Comment on above: Performed By: #### 9 729166, 726131, 746596 ####[facility] [address]pfitelg[address] [place] [address] Medical Director: Kelvin Zamorano MD Glucose mass conc 92 mg/dL Normal 72-100 [facility] Comment on above: Result Comment: Candice puncture should occur prior to sulfasalazine administration due to the potential for falsely depressed results. Venipuncture should occur prior to sulfapyridine administration due to the potential falsely elevated results.Baseline assay values before administration of sulfasalazine and sulfapyridine therapy would not be affected. Performed By: #### 9 560760, 687695, 355324 ####[facility] Urnuyqsj[address]72 [place] [address] Medical Director: Kelvin Zamorano MD GOT 13 unit/L Low 15-37 [facility] Comment on above: Result Comment: Candice puncture should occur prior to sulfasalazine and/or sulfapyridine administration due to the potential for falsely depressed results.Baseline assay values before administration of sulfasalazine and sulfapyridine therapy would not be affected. Performed By: #### 9 253179, 330539, 215877 ####[facility] [address]as[address] [place] [address] Medical Director: Kelvin Zamorano MD GPT 17 unit/L Normal 16-61 [facility] Comment on above: Result Comment: Candice puncture should occur prior to sulfasalazine and/or sulfapyridine administration due to the potential for falsely depressed results.Baseline assay values before administration of sulfasalazine and sulfapyridine therapy would not be affected. Performed By: #### 9 384874, 364038, 604690 ####[facility] [address]zd[address]oc[address]751 [place] [address] Medical Director: Kelvin Zamorano MD Potassium molar conc 3.8 mmol/L Normal 3.5-5.1 [facility] Comment on above: Performed By: #### 9 884516, 872145, 642181 ####[facility] [address] [place] [address] Medical Director: Kelvin Zamorano MD Protein 7.8 g/dL Normal 6.0-8.5 [facility] Comment on above: Performed By: #### 9 635531, 529644, 308158 ####[facility] V[address] [place] [address] Medical Director: Kelvin Zamorano MD Sodium 140 mmol/L Normal 135-145 [facility] Comment on above: Performed By: #### 9 259169, 340043, 769672 ####[facility] [address]bfsfehr[address] [place] [address] Medical Director: Kelvin Zamorano MD Urea nitrogen 12 mg/dL Normal 10-20 [facility] Comment on above: Performed By: #### 9 077764, 741527, 080410 ####[facility] [address] [place] [id number] Medical Director: Kelvin Zamorano MD ED Physician [...] Color, U Yellow Appearance, U Clear Specific Norton, U 1.023 NORMAL pH, U 6.0 NORMAL [...] /100WBC NA Lymph % 29.2 % NA Leake % 6.9 % NA Neutrophil % 63.6 % NA Eosin % 0.3 % NA Basos % 0.1 % NA Lymph Count 2.27 x1000 NORMAL [place] Count 0.54 x1000 NORMAL Neutrophil Count (ANC) [...] Plan Diagnosis Acute right-sided low back pain (WSF57-DL M54.5, Discharge, Emergency medicine, Medical) 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 Counseled: [...] DIONNE INFANTE, YU Salazar 12/12/2017 22:41 Normal [facility] ED Progress Noteon 8 ED Progress [...] PT AMBULATED TO LOBBY WITH FATHER Normal [facility] LIPon 12-13-2017 Lipase 137 unit/L Normal 73-393 [facility] Comment on above: Performed By: #### 9 756438, 679485, 883237 ####[facility] Ukxderak[address] [place], [place] [address]) [phone] Director: Kelvin Zamorano MD UAon 12-13-2017 U MICRO Indicated Normal [facility] Comment on above: Performed By: #### 1 06209 ####[facility] Jxxfmess[address] [place], [place] [address]) [phone] Director: Kelvin Zamorano MD Appearance, U Clear Normal [facility] Comment on above: Performed By: #### 1 28728 ####[facility] Xsadtjlt[address] [place], [place] [address]) [phone] Director: Kelvin Zamorano MD Bilirubin (direct) Negative Normal Negative [facility] Comment on above: Performed By: #### 1 28268 ####[facility] H[address]htya[address] [place], [place] [address]) [phone] Director: Kelvin Zamorano MD Blood, U Negative Normal Negative [facility] Comment on above: Performed By: #### 1 28322 ####[facility] Vp[address]jvkd194[address] [place], [place] [address]) [phone] Director: Kelvin Zamorano MD Calcium Occasional Normal [facility] Comment on above: Performed By: #### 1 74045 ####[facility] Tu[address]wi[address] [place], [place] [address]) [phone] Director: Kelvin Zamorano MD Color, U Yellow Normal [facility] Comment on above: Performed By: #### 1 70750 ####[facility] Owmrkdal[address] [place], [place] [address]) [phone] Director: Kelvin Zamorano MD Erythrocytes (RBC) 1 #/HPF Normal 0-3 [facility] Comment on above: Performed By: #### 1 20592 ####[facility] [address]zy[address] [place] [address] Medical Director: Kelvin Zamorano MD Glucose Qual, U Negative Normal Negative [facility] Comment on above: Performed By: #### 1 31020 ####[facility] L[address]ktcvu15[address] [place], [place] [id number]) [phone] Director: Kelvin Zamorano MD Ketones, U Negative Normal Negative [facility] Comment on above: Performed By: #### 1 41030 ####[facility] [address] [place] [address] Medical Director: Kelvin Zamorano MD Leukocyte Esterase, U Trace Abnormal Negative [facility] Comment on above: Performed By: #### 1 25017 ####[facility] [address] [place] [address] Medical Director: Kelvin Zamorano MD Mucous, U Occasional Normal [facility] Comment on above: Performed By: #### 1 05183 ####[facility] [address] [place] [address] Medical Director: Kelvin Zamorano MD Nitrite, U Negative Normal Negative [facility] Comment on above: Performed By: #### 1 77306 ####[facility] [address] [place] [address] Medical Director: Kelvin Zamorano MD pH, U 6.0 Normal 4.5-8.0 [facility] Comment on above: Performed By: #### 1 25211 ####[facility] [address] [place], [place] [address]) [phone] Director: Kelvin Zamorano MD Protein, U Negative Normal Negative [facility] Comment on above: Performed By: #### 1 46074 ####[facility] L[address]iescd[address] [place] [address] Medical Director: Kelvin Zamorano MD Specific Norton, U 1.023 Normal 1.001-1.035 [facility] Comment on above: Performed By: #### 1 35750 ####[facility] Vlibcrgp[address]36 [place] [address] Medical Director: Kelvin Zamorano MD Urobilinogen Qual, U 2.0 mg/dl Abnormal <2.0 mg/dl [facility] Comment on above: Result Comment: EU/d l and mg/dl are equivalent units. Performed By: #### 1 14019 ####[facility] [address] [address] Medical Director: Kelvin Zamorano MD WBC (Leukocytes) 2 #/HPF Normal 0-5 [facility] Comment on above: Performed By: #### 1 78388 ####[facility] [place] [address] Medical Director: Kelvin Zamorano MD AUTO DIFFon 12-12-2017 Basophils Auto #/vol (Bld) 0.01 x1000 Normal 0.00-0.20 [facility] Comment on above: Performed By: #### 9 235422, 882382, 653352 ####[facility] [address] [place] [address] Medical Director: Kelvin Zamorano MD Basos % 0.1 % Normal [facility] Comment on above: Performed By: #### 9 083811, 449853, 022738 ####[facility] [address] [place] [address] Medical Director: Kelvin Zamorano MD Eos Count 0.02 x1000 Normal 0.00-0.50 [facility] Comment on above: Performed By: #### 9 285814, 798715, 544536 ####[facility] [address] [place] [address] Medical Director: Kelvin Zamorano MD Eosinophils/100 leukocytes 0.3 % Normal [facility] Comment on above: Performed By: #### 9 847820, 211609, 829053 ####[facility] [address]pc[address] [place] [address] Medical Director: Kelvin Zamorano MD Lymphocytes 2.27 x1000 Normal 1.20-4.80 [facility] Comment on above: Performed By: #### 9 870438, 900719, 149164 ####[facility] [address] [place] [address] Medical Director: Kelvin Zamorano MD Lymphocytes/100 leukocytes 29.2 % Normal [facility] Comment on above: Performed By: #### 9 215621, 900289, 746916 ####[facility] [address] [place] [address] Medical Director: Kelvin Zamorano MD Leake Count 0.54 x1000 Normal 0.10-1.00 [facility] Comment on above: Performed By: #### 9 065111, 991046, 985771 ####[facility] By[address] [place] [address] Medical Director: Kelvin Zamorano MD Monocytes/100 leukocytes 6.9 % Normal [facility] Comment on above: Performed By: #### 9 127928, 362791, 437140 ####[facility] [address] [place] [address] Medical Director: Kelvin Zamorano MD Neutrophils 4.96 x1000 Normal 1.40-8.80 [facility] Comment on above: Performed By: #### 9 134453, 675213, 772082 ####[facility] [address] [place] [address] Medical Director: Kelvin Zamorano MD Neutrophils/100 WBC Auto (Bld) 63.6 % Normal [facility] Comment on above: Performed By: #### 9 645867, 146351, 147278 ####[facility] [address] [place] [address] Medical Director: Kelvin Zamorano MD CT ABD [...] Ruth WOODRUFF MD Out: 12/12/17 22:00:03 Normal [facility] Bacterial susceptibility schaffer el by Aditi 08-24-2017 Bacterial susceptibility panel by [facility] ORDERED BY: REUBEN ECHAVARRIA: Urine Clean Catch COLLECTED: 08/24/17 17:15ANTIBIOTICS AT [facility].: RECEIVED : 08/24/17 20:24Culture, Urine FINAL 08/27/17 09:24 50,000 CFU/ml Escherichia coli E. coli ANTIBIOTICS SUSY Interp __Ampicillin 4 S Cefazolin <=4 S Ciprofloxacin <=0.25 S Gentamicin <=1 S Nitrofurantoin 32 S Trimethoprim/Sulfamethoxa zole <=20 S __ S=SUSCEPTIBLE I=INTERMEDIATE R=RESISTANT Normal [facility] CBC With Platelet and Differ entialon 08-24-2017 Basophils Auto #/vol (Bld) 0.0 10*3/uL Normal 0.0-0.2 [facility] Basophils/100 WBC Auto (Bld) 0.2 % Normal [facility] Eosinophils 0.0 10*3/uL Normal 0.0-0.7 [facility] Eosinophils/100 leukocytes 0.3 % Normal [facility] Erythrocyte distribution width Auto Ratio (RBC) 14.3 % Normal 11.5-14.5 [facility] Erythrocytes (RBC) 4.86 10*6/uL Normal 4.70-6.10 [facility] Hematocrit (HCT) 42.2 % Normal 42.0-52.0 [facility] Hemoglobin mass conc (Bld) 14.3 g/dL Normal 14.0-18.0 [facility] Lymphocytes 3.1 10*3/uL Normal 1.0-4.8 [facility] Lymphocytes/100 leukocytes 28.0 % Normal [facility] MCH 29.5 pg Normal 27.0-31.3 [facility] MCHC mass conc (RBC) 33.9 % Normal 33.0-37.0 [facility] MCV 86.8 fL Normal 80.0-100.0 [facility] Monocytes 0.8 10*3/uL Normal 0.2-0.8 [facility] Monocytes/100 leukocytes 7.1 % Normal [facility] Neutrophils 7.2 10*3/uL Critically high 1.4-6.5 [facility] Neutrophils/100 leukocytes 64.4 % Normal [facility] Platelets 259 10*3/uL Normal 130-400 [facility] WBC (Leukocytes) 11.1 10*3/uL Critically high 4.8-10.[address] [facility] CT KIDNEY WO CONTRASTon 08-15 CT [...] by:SHIVA Craigigned by:Ankur Barber MD08/25/18Final result Normal [facility] Comprehensive Metabolic Pane bren 08-24-2017 Alanine aminotransferase (ALT) 14 U/L Normal 0-41 [facility] Albumin 4.8 g/dL Normal 3.9-4.9 [facility] Alkaline phosphatase (ALP) 101 U/L Normal 35-104 [facility] Anion gap 15 mmol/L Critically high 7-13 [facility] Aspartate aminotransferase (AST) 17 U/L Normal 0-40 [facility] Bilirubin (total) 0.4 mg/dL Normal 0.0-1.2 [facility] Calcium 9.6 mg/dL Normal 8.6-10.2 [facility] Chloride 103 mmol/L Normal 98-107 [facility] CO2 25 mmol/L Normal 22-29 [facility] Creatinine 0.73 mg/dL Normal 0.70-1.20 [facility] eGFR (black) mL/min/{1.73_m2} Normal >60 [facility] Comment on above: Result Comment: >60 mL/min/1.73m2 EGFR, calc. for ages 18 and older using theMDRD formula (not corrected for weight), is valid for stablerenal function. eGFR (MDRD) mL/min/{1.73_m2} Normal >60 [facility] Comment on above: Result Comment: >60 mL/min/1.73m2 EGFR, calc. for ages 18 and older using theMDRD formula (not corrected for weight), is valid for stablerenal function. Globulin 3.3 g/dL Normal 2.3-3.5 [facility] Glucose mass conc 91 mg/dL Normal 74-109 [facility] Potassium molar conc 4.2 mmol/L Normal 3.5-5.1 [facility] Protein 8.1 g/dL Normal 6.4-8.1 [facility] Sodium 143 mmol/L Normal 132-144 [facility] Urea nitrogen 16 mg/dL Normal 6-20 [facility] Culture, Urineon 08-24-2017 Culture, Urine OR DERED BY: REUBEN ECHAVARRIA: Urine Clean Catch COLLECTED: 08/24/17 17:15ANTIBIOTICS AT SAMY.: RECEIVED : 08/24/17 20:24Culture, Urine INTERIM 08/26/17 09:22 50,000 CFU/ml Escherichia coli Sensitivity to follow Normal [facility] Urinalysis, reflex to cultur fede 08-24-2017 Bilirubin Ql (U) Negative Normal Negative [facility] Urine Reflexed to Culture YES Normal [facility] Urine, clarity CLOUDY Abnormal Clear [facility] Urine, color Yellow Normal Straw/Wilkinson [facility] Urine, glucose presence Negative Normal Negative [facility] Urine, hemoglobin presence LARGE Abnormal Negative [facility] Urine, ketones presence Negative Normal Negative [facility] Urine, leukocyte esterase presence MODERATE Abnormal Negative [facility] Urine, nitrite presence Negative Normal Negative [facility] Urine, pH 6.5 [pH] Normal 5.0-9.0 [facility] Urine, protein presence TRACE Abnormal Negative [facility] Urine, specific gravity 1.022 Normal 1.005-1.03 [facility] Urine, urobilinogen 0.2 {Janusz'U}/dL Normal < 2.0 [facility] Urine Microscopicon 08-25-19 18 Urine, bacteria in sediment Few Normal [facility] Urine, erythrocytes /uL Abnormal 0-2 [facility] Urine, leukocytes 6-10 Abnormal 0-5 [facility] Vital Signs Date Time Vital Sign Value Performing Clinician Facility 02-19-2025 11:22-0400 Body temperature 97.6 [degF] No Primary Care Physician [facility] 02-19-2025 11:22-0400 Diastolic blood pressure 92 mm[Hg] No Primary Care Physician [facility] 02-19-2025 11:22-0400 Heart rate 85 /min No Primary Care Physician [facility] 02-19-2025 11:22-0400 Respiratory rate 15 /min No Primary Care Physician [facility] 02-19-2025 11:22-0400 SaO2% (BldA) [Mass fraction] 99 % No Primary Care Physician [facility] 02-19-2025 11:22-0400 Systolic blood pressure 135 mm[Hg] No Primary Care Physician [facility] 02-18-2025 12:16-0400 Body height 172.72 cm No Primary Care Physician [facility] 02-18-2025 12:16-0400 Body weight 62 kg No Primary Care Physician [facility] 02-17-2025 22:55-0400 Body mass index (BMI) [Ratio] 20.2 kg/m2 No Primary Care Physician [facility] 02-17-2025 21:59-0400 Body temperature 97.8 [degF] No Primary Care Physician [facility] 02-17-2025 21:59-0400 Diastolic blood pressure 94 mm[Hg] No Primary Care Physician [facility] 02-17-2025 21:59-0400 Heart rate 87 /min No Primary Care Physician [facility] 02-17-2025 21:59-0400 Respiratory rate 16 /min No Primary Care Physician [facility] 02-17-2025 21:59-0400 SaO2% (BldA) [Mass fraction] 99 % No Primary Care Physician [facility] 02-17-2025 21:59-0400 Systolic blood pressure 144 mm[Hg] No Primary Care Physician [facility] 02-17-2025 19:43-0400 Body height 172.72 cm No Primary Care Physician [facility] 02-17-2025 19:43-0400 Body mass index (BMI) [Ratio] 21.1 kg/m2 No Primary Care Physician [facility] 02-17-2025 19:43-0400 Body weight 63.1 kg No Primary Care Physician [facility] 04-23-2024 15:18-0500 Body temperature 98.71 [degF] Richard Pastrana MD Work Phone: [facility] 04-23-2024 15:18-0500 Diastolic blood pressure 87 mm[Hg] Richard Pastrana MD Work Phone: [facility] 04-23-2024 15:18-0500 Heart rate 72 /min Richard Pastrana MD Work Phone: [facility] 04-23-2024 15:18-0500 Respiratory rate 18 /min Richard Pastrana MD Work Phone: [facility] 04-23-2024 15:18-0500 SaO2% (BldA) [Mass fraction] 97 % Richard Pastrana MD Work Phone: [facility] 04-23-2024 15:18-0500 Systolic blood pressure 135 mm[Hg] Richard Pastrana MD Work Phone: [facility] 04-19-2024 18:36-0500 Body height 172.7 cm Richard Pastrana MD Work Phone: [facility] 04-19-2024 18:36-0500 Body mass index (BMI) [Ratio] 22.16 kg/m2 Richard Pastrana MD Work Phone: [facility] 04-19-2024 18:36-0500 Body weight 66.1 kg Richard Pastrana MD Work Phone: [facility] 04-19-2024 07:30-0500 Diastolic blood pressure 78 mm[Hg] David Robison DO Work Phone: [facility] 04-19-2024 07:30-0500 Heart rate 61 /min David Pazo DO Work Phone: [employer] 04-19-2024 07:30-0500 SaO2% (BldA) [Mass fraction] 94 % David Pazo DO Work Phone: [facility] 04-19-2024 07:30-0500 Systolic blood pressure 132 mm[Hg] David Pazo DO Work Phone: [employer] [facility] 04-19-2024 06:00-0500 Respiratory rate 15 /min David Pazo DO Work Phone: [facility] 04-19-2024 03:53-0500 Body height 177.8 cm David Pazo DO Work Phone: [facility] 04-19-2024 03:53-0500 Body mass index (BMI) [Ratio] 24.39 kg/m2 David Pazo DO Work Phone: [facility] 04-19-2024 03:53-0500 Body weight 77.11 kg David Pazo re[employer]wip Work Phone: [facility] 04-19-2024 03:51-0500 Body temperature 98.1 [degF] David Pazo reQwip Work Phone: [facility] 12-04-2018 03:09-0400 BP Diastolic 92 mm[Hg] Caelb Starr [facility] 12-04-2018 03:09-0400 BP Systolic 134 mm[Hg] Caleb Starr [facility] 12-04-2018 03:09-0400 Pulse (Heart Rate) 95 /min Caleb Starr [facility] 12-04-2018 03:09-0400 Pulse Oximetry 100 % Caleb Starr [facility] 12-04-2018 03:09-0400 Respiratory Rate 14 /min Caleb Starr [facility] 12-04-2018 02:46-0400 Body Temperature 97.7 [degF] Caleb Starr [facility] Encounters Encounter Date Encounter Type Care Provider Facility Start: 02-19-2025 Non-patient / Non-visit Dr. Phoenix hopper MD -[facility] Work Phone: Start: 02-18-2025 Non-patient / Non-visit Dr. Phoenix hopper MD -[facility] Work Phone: Start: 02-17-2025 ambulatory No Primary Car e Physician Facility:[facility] Start: 02-17-2025 End: 02-19-2025 Evaluation and management of inpatient Dr. Sujey Stacy MD -[facility] Work Phone: Start: 07-17-2024 ambulatory Phoenix Ramsey Facili ty:[facility] Start: 07-17-2024 End: 07-18-2024 Evaluation and management of inpatient Phoenix Ramsey Facility:[facility] Start: 06-20-2024 ambulatory David Mcguire Fac ility:[facility] Start: 06-20-2024 End: 06-23-2024 Evaluation and management of inpatient No Primary Care Physician Facility:[facility] Start: 05-22-2024 ambulatory No Primary Car e Physician Facility:[facility] Start: 05-22-2024 End: 05-25-2024 Evaluation and management of inpatient No Primary Care Physician Facility:[facility] Start: 04-19-2024 End: 04-23-2024 Evaluation and management of inpatient Akhil Ann MD Work Phone: [facility] Start: 04-19-2024 End: 04-19-2024 Emergency department patient visit [facility] Start: 04-19-2024 End: 04-19-2024 Evaluation and management of inpatient [facility] Work Phone: [facility] Comment on above: Acute pancreatitis Start: 04-19-2024 ambulatory GENERIC [facility] Start: 01-27-2024 End: 01-27-2024 Emergency department patient visit MORALES JAIMES [facility] Start: 01-05-2024 End: 01-05-2024 Emergency department patient visit TOMASA HOANG [facility] Start: 09-06-2023 End: 09-06-2023 Emergency department patient visit SHEILA OLSON [facility] Start: 08-04-2020 End: 08-04-2020 Orders Only Theodora Pop Work Phone: [facility] Start: 12-09-2018 End: 12-09-2018 Patient encounter procedure Telly Lewis Work Phone: [facility] Comment on above: Seizure (Primary Dx) Start: 12-04-2018 End: 12-04-2018 Emergency department patient visit Caleb Starr Work Phone: [facility] Comment on above: Accidental drug over dose, initial encounter (Primary Dx) Start: 07-26-2018 End: 07-27-2018 Emergency department patient visit [facility] Facility:[facility] Start: 07-26-2018 End: 07-26-2018 Patient encounter procedure Generic [facility] Start: 07-13-2018 End: 07-13-2018 Emergency department patient visit [facility] Facility:[facility] Start: 04-02-2018 End: 04-02-2018 Emergency department patient visit Dante Billy Facility:[facility] Start: 12-25-2017 End: 12-25-2017 Emergency department patient visit Carmen Thompson Facility:[facility] Start: 12-12-2017 End: 12-13-2017 Emergency department patient visit YU CRUMP Facility:[id number] Start: 08-24-2017 End: 08-24-2017 Emergency department patient visit [facility] Procedures Date Procedure Procedure Detail Performing [...] HCV Quant by PCR testing - HCVPCR #[id number] Non Reactive: < 0.8 Equivocal: >/= 0.8 [...] Albumin serum plasma /whole blood David Robison [employer] Work Phone: Start: 04-19-2024 Assay of ethanol David Robison [employer] Work Phone: Start: 04-19-2024 Complete blood count [...] Activity Detail Author Start: 02-19-2025 Patient discharge [facility] Start: 02-18-2025 End: 02-19-2025 [facility] Start: 02-18-2025 Assessment using assessment scale [facility] Start: 02-18-2025 Patient referral to dietitian [facility] Start: 02-17-2025 Assessment of risk of venous thromboembolism [facility] Start: 02-17-2025 Inhalation therapy procedure [facility] Start: 02-17-2025 Introduction of urinary catheter [facility] Start: 02-17-2025 Notification of physician [facility] Start: 02-17-2025 Oxygen therapy [facility] Start: 02-17-2025 Provision of activity privileges [facility] Start: 02-17-2025 Referral to service [facility] Start: 02-17-2025 Vital signs measurements [facility] Start: 02-17-2025 [facility] Start: 02-17-2025 Following clinical pathway protocol [facility] Start: 02-17-2025 End: 02-17-2025 Hospital admission, emergency, from emergency room, medical nature [facility] Start: 02-17-2025 Verification routine [facility] Start: 02-17-2025 Admission procedure [facility] Start: 02-17-2025 Serologic test for syphilis [facility] Start: 02-17-2025 Serum inorganic phosphate measurement [facility] Start: 02-17-2025 [facility] Start: 02-16-2024 COVID-19 VACCINE ( season) COVID-19 VACCINE ( season) [facility] Start: 02-16-2024 Influenza vaccination INFLUENZA VACCINE (#1) [facility] Start: 02-16-2020 Influenza vaccination given Sequential Influenza Vaccine (#1) [facility] Start: 02-15-2019 Influenza vaccination INFLUENZA VACCINE (Season Ended) [facility] Start: 02-15-2019 Influenza vaccination given SEQUENTIAL INFLUENZA VACCINE (Season Ended) [facility] Start: 02-15-2018 Influenza vaccination given SEQUENTIAL INFLUENZA VACCINE (#1) [facility] Start: 2009 Hepatitis B vaccination HEP B VACCINE (1 of 3 - 19+ 3-dose series) [facility] Start: 2009 Third diphtheria, tetanus and acellular pertussis (DTaP) vaccination TDAP (ADULT) [facility] Start: 2008 Hepatitis C antibody, confirmatory test Hepatitis C Screening [facility] Start: 2008 Tetanus vaccination TETANUS [facility] Start: 2005 HIV screening [facility] Start: 2003 HIV screening HIV SCREENING DISCUSSION [facility] Start: 2002 Adolescent depression screening assessment Depression Screening (PHQ9) [facility] Start: 1993 History and physical examination, annual for health maintenance Wellness Visit [facility] Start: 1990 Hepatitis C screening HEPATITIS C VIRUS SCREENING [facility] Start: 1990 Tetanus vaccination [facility] Amphetamines [Presen ce] in Urine by Screen method >1000 ng/mL [facility] Benzodiazepine measu rement, urine [facility] Cocaine measurement, urine [facility] fentaNYL [Presence] in Urine by Screen method [facility] Magnesium measurement [facility] Methadone measuremen t, urine [facility] Phencyclidine [Prese nce] in Urine [facility] Urine cannabinoid measurement [facility] Urine opiate measurement [facility] Payers Date Payer Category Payer Self-pay 2024 Private Health Insurance [employer] [id number] 2024-Present [address] [place] [address] [id number] 2023 Medicaid (Managed Care) [employer] MGD MEDICAID [id number] 2018 Medicaid PARAMOUNT MANAGE D MEDICAID [employer]VANTAGE MEDICAID xxxxxxxxxxx 2018-Present xxxxxxxxxxx [id number] 2018 Medicaid [id number] 2017 Medicaid [id number] 1990 Unknown [id number] 2.16.840.1.767346.3.579.2 .983 1990 Unknown [id number] 2.16.840.1.770270.3.579.2 .903 1990 Unknown [id number] 2.16.840.1.169472.3.579.2 .903 1990 Unknown [id number] 2.16.840.1.749306.3.579.2 .903 1990 Unknown [id number] 2.16.840.1.476067.3.579.2 .903 1990 Unknown [id number] 2.16.840.1.266923.3.579.2 .903 Medicaid MEDICAID [place] [id number] Effective for all dates xxxxxxxxxxxx [id number] Medicaid DENTAL MEDICAID [facility] [id number] Effective for all dates [id number] Unknown [id number] Unknown [id number] 2.16.840.1.464164.3.579.2 .462 Unknown [id number] 2.16.840.1.291626.3.579.2 .462 Unknown [id number] 2.16.840.1.773195.3.579.2 .462 Unknown [id number] 2.16.840.1.895647.3.579.2 .462 Unknown [id number] 2.16.840.1.864464.3.579.2 .462 Unknown [id number] 2.16.840.1.287638.3.579.2 .462 Unknown [id number] 2.16.840.1.141836.3.579.2 .462 Unknown [id number] 2.16.840.1.650201.3.579.2 .462 Unknown [id number] 2.16.840.1.100797.3.579.2 .462 Unknown [id number] 2.16.840.1.077730.3.579.2 .462 Unknown [id number] 2.16.840.1.674004.3.579.2 .462 Unknown [id number] 2.16.840.1.745655.3.579.2 .462 Unknown [id number] 2.16.840.1.661803.3.579.2 .462 Unknown [id number] 2.16.840.1.650144.3.579.2 .462 Unknown [id number] 2.16840.1.430278.3.579.2 .462 Unknown [id number] 2.16840.1.796903.3.579.2 .462 Social History Date Type Detail Facility Start: 05-27-2018 End: 12-04-2018 Tobacco smoking status MSIS Current some day smoker [facility] Start: 06-17-2021 History of tobacco use Cigarette Smoker [facility] Start: 1990 Sex Assigned At Not on file [facility] Start: 12-04-2018 End: 04-19-2024 Tobacco use and exposure Never used [facility] Start: 12-04-2018 Alcohol intake Current non-drinker of alcohol (finding) [facility] Start: 04-19-2024 Tobacco smoking status NHIS Never smoked tobacco [facility] Start: 04-19-2024 Alcoholic beverage intake Current drinker of alcohol (finding) [facility] Start: 04-19-2024 History of Social function [facility] Start: 04-19-2024 Tobacco use panel [facility] Start: 04-19-2024 Alcohol Comment 2 beers nightly per patient [facility] Start: 04-19-2024 End: 02-17-2025 Tobacco smoking status MSIS Smokes tobacco daily [facility] Has the electric, [employer], olook, or water [employer] threatened to shut off services in your home in past 12Mo No [facility] (I/We) worried wheth er (my/our) food would run out before (I/we) got money to buy more. Never true [facility] In the past 12 month s, has lack of transportation kept you from medical appointments or from getting medications? No [facility] Start: 04-19-2024 Alcohol Comment daily, last drink last night [facility] Start: 04-03-2018 Gender identity Identifies as male gender (finding) [facility] Start: 04-03-2018 Sexual orientation Heterosexual (finding) [facility] Start: 08-03-2020 Alcohol Alcohol [facility] Start: 08-03-2020 Drugs Drugs [facility] Start: 08-03-2020 Tobacco Use Tobacco Use [facility] Start: 1990 Sex Assigned At Male [facility] Goals Date Patient Goal Desired Activity /State Functional Status Date Assessment Result Facility 02-19-2025 Functional status Patient Activi ty Ambulates;Up ad elly [facility] Work Phone: 02-18-2025 Functional status Independent [facility] Work Phone: Mental Status Date Assessment Result Facility 02-19-2025 Cognitive function Appropriate;Cooperativ e [facility] Work Phone: 02-19-2025 Cognitive function Arousable To Voice/Nam e [facility] Work Phone: Clinical Notes 04-19-2024 to 02-19-2025 Note Date & Type Note Facility 02-19-2025 Hospital Discharg e instructions Additional Instructions Date of Discharge: 02/19/25 [facility] Work Phone: 02-19-2025 Discharge summary [facility] 02-19-2025 Note [facility] Medical Records Department [address] [place] [address] Discharge Summary 02/19/25 1346 MR#: [id number] Acct: [id number] Name: YU YOUNGER Marli Rep #: [id number] : 1990 34 From: Phoenix Irvin MD PCP: Care Physician,No Primary Status:ADM IN Location: [place] [address] Providers Date of Admission: 02/17/25 Date of [...] Advice Charges/Coding Visit Charges Inpatient E M: 73291 Disch Hosp >30min 02/19/25 1348 Cosigner Signature (if applicable): CC: Dr. Phoenix Irvin MD; No Primary Care Physician Signed [facility] 02-19-2025 Progress note Note Date/Time February 19, 2025 7:38am [facility] Medical Records Department [address] [place] [address] Progress Note - Hospitalist 02/19/25 0737 MR#: [id number] Acct: [id number] Name: YU YOUNGER Rep #:[id number] : 1990 34 From: Phoenix Irvin MD PCP: Care Physician,No Primary Status :ADM IN Location: [place] [address]-1 Reason for Visit Chief Complaint: Heroin/EtOH detoxification [...] documentation, 35minutes Charges/Coding Visit Charges Inpatient E&M: 29377 Subs Hosp L2 02/19/25 0738 <Electronically signed by Phoenix Irvin MD> Cosigner Signature (if applicable): CC: ~ Signed [facility] Work Phone: 1(521) 715-432609-05-2025 Progress note [facility] Medical Records Department [address] [place] [address] Progress Note - Hospitalist 02/19/25 0737 MR#: [id number] Acct: [id number] Name: YU YOUNGER Rep #:[id number] : 1990 34 From: Phoenix Irvin MD PCP: Care Physician,No Primary Status :ADM IN Location: [place] [id number] Reason for Visit Chief Complaint: Heroin/EtOH detoxification [...] documentation, 35minutes Charges/Coding Visit Charges Inpatient E&M: 31624 Subs Hosp L2 02/19/25 0738 Cosigner Signature (if applicable): CC: ~ Signed [facility]09-04-2025 Progress note Author Phoenix Irvin [facility] Note Date/Time February 18, 2025 9:43am [facility] Medical Records Department [address] [place] [address] Progress Note - Hospitalist 02/18/25654 MR#: [id number] Acct: [id number] Name: YU YOUNGER Rep #:[id number] : 1990 34 From: Phoenix Irvin MD PCP: Care Physician,No Primary Status :ADM IN Location: [place] [id number] Reason for Visit Chief Complaint: Heroin/EtOH detoxification [...] % (Auto) 67.8, Lymph % (Auto) 24.4, Leake% (Auto) 7.4, Eos % (Auto) 0.0, Baso [...] 38 Minutes Charges/Coding Visit Charges Inpatient E&M: 48074 Subs Hosp L2 02/18/25 0943 <Electronically signed by Phoenix Irvin MD> Cosigner Signature (if applicable): CC: ~ Signed [facility] Work Phone: 1(383) 532-608509-04-2025 Progress note [facility] Medical Records Department [address] [place] [address] Progress Note - Hospitalist 02/18/25654 MR#: [id number] Acct: [id number] Name: YU YOUNGER Rep #:[id number] : 1990 34 From: Phoenix Irvin MD PCP: Care Physician,No Primary Status :ADM IN Location: [address] Reason for Visit Chief Complaint: Heroin/EtOH [...] % (Auto) 67.8, Lymph % (Auto) 24.4, Leake% (Auto) 7.4, Eos % (Auto) 0.0, Baso [...] 38 Minutes Charges/Coding Visit Charges Inpatient E&M: 95696 Subs Hosp L2 02/18/25 0943 Cosigner Signature (if applicable): CC: ~ Signed [facility]09-04-2025 Discharge summary Author Dada Caballero [facility] Note Date/Time February 17, 2025 10:29pm [facility] Medical Records Department [address] [place] [address] Emergency Department Summary 02/17/25 MR#: [id number] Acct: [id number] Name: YU YOUNGER Rep #:[id number] : 1990 34 From: Dada Alejandre PCP: Care Physician,No Primary Status :ADM IN Location: [address] History of Present Illness Chief Complaint: Substance Abuse [facility] Medical History (Updated 02/17/25 @ 22:[address] Sujey Stacy MD) Tobacco use Alcohol abuse Alcoholic pancreatitis Substance abuse Hx of renal calculi Home Medications ?Medication ?Instructions ?Recorded ?Last Taken ?Type methadone 10 mg tablet 100 mg PO DAILY 05/22/2410/09 History Allergy/AdvReac Type Severity Reaction Status Date / Time levetiracetam (From [facility]) Allergy HIVES Verified 02/17/25 19:44 Family History [...] 100 99 Oxygen Delivery Method Room Air [facility] MDM Narrative Medical decision making narrative: HISTORY [...] reviewed, Vital signs reviewed Constitutional: [facility] HENT: MMM Eyes: Pupils equal round and [...] from others: none Consults: Hospitalist (Dr. Stacy) [facility] Narrative: Patient was initially hypertensive with blood [...] medical floor This note was generated with [employer] dictation software. It may contain incorrectwords, spelling, [...] % (Auto) 67.8 Lymph % (Auto) 24.4 Leake % (Auto) 7.4 Eos % (Auto) 0.0 [...] your Primary Care Provider. Call [facility] ([phone]) or report to the closest Emergency Room. Call 911 if necessary. 02/17/252228 <Electronically signed by Dada Caballero DO> Cosigner Signature (if applicable): CC: No Primary Care Physician ~ Signed [facility] Work Phone: 1(170) 221-532409-04-2025 History and physical note Author Sujey Stacy [facility] Note Date/Time February 17, 2025 10:19pm [facility] Medical Records Department [address] [place] [address] H&P Exam - Hospitalist 02/17/252123 MR#: [id number] Acct: [id number] Name: YU YOUNGER Rep #:[id number] : 1990 34 From: Sujey Stacy MD PCP: Care Physician,No Primary Status :ADM IN Location: [place] [id number] HPI - General General Date of Admission: [...] arrival), Tobacco use who presents to the [facility] ED on 02/17/2025 with ongoing substance abuse, [...] 1, phenobarbital 97.2 mg p.o. x 1. [facility] Medical History (Updated 02/17/25 @ 22:[address] Sujey Stacy MD) Tobacco use Alcohol abuse Alcoholic pancreatitis Substance abuse Hx of renal calculi Home Medications ?Medication ?Instructions ?Recorded ?Last Taken ?Type methadone 10 mg tablet 100 mg PO DAILY 05/22/2410/09 History Allergy/AdvReac Type Severity Reaction Status Date / Time levetiracetam (From [facility]) Allergy HIVES Verified 02/17/25 19:44 Family History [...] % (Auto) 67.8, Lymph % (Auto) 24.4, Leake% (Auto) 7.4, Eos % (Auto) 0.0, Baso [...] arrival), Tobacco use who presents to the [facility] ED on 02/17/2025 with ongoing substance abuse, [...] encourage ambulation. Charges/Coding Visit Charges Inpatient E&M: 46575 Init Hosp L3 02/17/259 <Electronically signed by Sujey Stacy MD> Cosigner Signature (if applicable): CC: Dr. Sujey Stacy MD; No Primary Care Physician~ Signed [facility] Work Phone: 1(538) 954-512409-03-2025 Evaluation note* Diagnosis Onset Date Resolution Status Admit Date Admitted to alcohol detoxification center acute February 17, 2025 9:24pm [facility] Work Phone: 1(716) 701-705009-03-2025 Discharge summary [facility] Medical Records Department [address] [place] [address] Emergency Department Summary 02/17/25 MR#: [id number] Acct: [id number] Name: YU YOUNGER Rep #:[id number] : 1990 34 From: Dada Alejandre PCP: Care Physician,No Primary Status :ADM IN Location: [place] [address] HPI History of Present Illness Chief Complaint: Substance Abuse [facility] Medical History (Updated 02/17/25 @ 22:[address] Sujey Stacy MD) Tobacco use Alcohol abuse Alcoholic pancreatitis Substance abuse Hx of renal calculi Home Medications ?Medication ?Instructions ?Recorded ?Last Taken ?Type methadone 10 mg tablet 100 mg PO DAILY 05/22/2410/09 History Allergy/AdvReac Type Severity Reaction Status Date / Time levetiracetam (From [facility]) Allergy HIVES Verified 02/17/25 19:44 Family History [...] medical floor This note was generated with [employer] Sc[employer] dictation software. It may contain incorrectwords, spelling, [...] % (Auto) 67.8 Lymph % (Auto) 24.4 Leake % (Auto) 7.4 Eos % (Auto) 0.0 [...] your Primary Care Provider. Call [facility] ([phone]) or report tothe closest Emergency Room. Call 911 if necessary. 02/17/252228 Cosigner Signature (if applicable): CC: No Primary Care Physician ~ Signed [facility]09-03-2025 History and physical note [facility] Medical Records Department [address] [place] [address] H&P Exam - Hospitalist 02/17/252123 MR#: [id number] Acct: [id number] Name: YU YOUNGER Rep #:[id number] : 1990 34 From: Sujey Stacy MD PCP: Care Physician,No Primary Status :ADM IN Location: [facility] [id number] HPI - General General Date of Admission: [...] arrival), Tobacco use who presents to the [facility] ED on 02/17/2025 with ongoing substance abuse, [...] 1, phenobarbital 97.2 mg p.o. x 1. [facility] Medical History (Updated 02/17/25 @ 22:[address] Sujey Stacy MD) Tobacco use Alcohol abuse Alcoholic pancreatitis Substance abuse Hx of renal calculi Home Medications ?Medication ?Instructions ?Recorded ?Last Taken ?Type methadone 10 mg tablet 100 mg PO DAILY 05/22/2410/09 History Allergy/AdvReac Type Severity Reaction Status Date / Time levetiracetam (From [facility]) Allergy HIVES Verified 02/17/25 19:44 Family History [...] % (Auto) 67.8, Lymph % (Auto) 24.4, Leake% (Auto) 7.4, Eos % (Auto) 0.0, Baso [...] arrival), Tobacco use who presents to the [facility] ED on 02/17/2025 with ongoing substance abuse, [...] encourage ambulation. Charges/Coding Visit Charges Inpatient E&M: 78853 Init Hosp L3 02/17/25 2219 Cosigner Signature (if applicable): CC: Dr. Sujey Stacy MD; No Primary Care Physician~ Signed [facility]02-01-2025 [facility] Medical Records Department [address] [place] [address] Discharge Summary 07/18/24 1315 MR#: [id number] Acct: [id number] Name: YU YOUNGER Rep #: [id number] : 1990 34 From: Yu Ball DO PCP: Care Physician,No Primary Status:ADM IN Location: MS3 HT990-6 Providers Date of Admission: 07/17/24 Date of [...] and examined in the emergency room at [facility], he requested services for opiate substance use disorder, patient also has a history of polysubstance abuse. Patient appears stable on admission, he was admitted to [place] [address] when orders were entered using the opiate [...] Orders/Prescriptions Prescriptions: No Acti (more content not included)...[facility]01-07-2025 Note [facility] Medical Records Department [address] [place] [address] Discharge Summary 06/23/24 1046 MR#: [id number] Acct: [id number] Name: YU YOUNGER Rep #: [id number] : 1990 33 From: Majo Terrazas MD PCP: Care Physician,No Primary Status:DIS IN Location: [facility] [id number] Providers Date of Admission: 06/20/24 Date of [...] 06/21/24 11:31 GERALDINE (Rec: 06/21/24 11:32 GERALDINE [id number]) Nutrition Malnutrition Evidence of Malnutrition Exists Yes [...] in before D/C Or (more content not included)...[facility]11-07-2024 Plan of care note* Plan of Care [...] Goal: Absence of pressure injury Outcome: Completed [id number] Miscellaneous Notes* Plan of Care - Che [...] injury Outcome: Completed * Quick Note - Che Manriquez RN - [...] functioning Outcome: Partially Met documented in this [id number] Progress note* Quick Note - Che Manriquez RN - 04/23/2024 3:37 PM EST Discharge instructions reviewed with patient and spouse. States understanding. Aware of all home meds stopped. Medications reviewed and brought from discharge pharmacy. [id number] Critical access hospital DISCHARGE SUMMARY -- [facility] Yu Younger Admitted: 04/19/2024 Discharge Date: 04/23/24 PCP Handoff Recommended Outpatient Testing Follow-up with primary care provider. Follow-up with methadone clinic for regular methadone dosing. Results Pending At Discharge None Clinical Summary Assessment and Plan Yu Younger is a 33 year old gentleman with a past medical history of seizures, ETOH abuse, opiate abuse, tobacco use disorder, who presented to [place] ED 04/19/2024 with complaints of abdominal pain. Initially presented to [facility] ED on 04/19 where imaging was consistent [...] dependence D/w pharmacy, has been following at [facility] Last methadone dose 40 mg on [...] PM AUTHENTICATED BY RICHARD PASTRANA, ON 04/23/2024 12:25:29[facility]11-07-2024 Hospital course Narrative* Richard Pastrana MD - 04/23/2024 12:20 PM EST [facility] DISCHARGE SUMMARY -- [facility] Yu Younger Admitted: 04/19/2024 Discharge Date: 04/23/24 PCP Handoff Recommended Outpatient Testing Follow-up with primary care provider. Follow-up with methadone clinic for regular methadone dosing. Results Pending At Discharge None Clinical Summary Assessment and Plan Yu Younger is a 33 year old gentleman with a past medical history of seizures, ETOH abuse, opiate abuse, tobacco use disorder, who presented to [place] ED 04/19/2024 with complaints of abdominal pain. Initially presented to [facility] ED on 04/19 where imaging was consistent [...] dependence D/w pharmacy, has been following at [facility] Last methadone dose 40 mg on [...] on 04/23/24, 12:20 PM documented in this [id number] Plan of care note* Plan of Care - Marielle Anne RN - 04/22/2024 7:25 PM EST POC reviewed & continues. [id number] NoteHMS PROGRESS NOTE Assessment and Plan Yu Younger is a 33 year old gentleman with a past medical history of seizures, ETOH abuse, opiate abuse, tobacco use disorder, who presented to [place] ED 04/19/2024 with complaints of abdominal pain. Initially presented to [facility] ED on 04/19 where imaging was consistent [...] abuse Alcohol withdrawal, resolved Phenobarbital taper [facility] protocol IV thiamine Will plan for addiction medicine consult once improved medically Opiate abuse with dependence D/w pharmacy, has been following at [facility] Last methadone dose 40 mg on [...] Transcriptions AUTHENTICATED BY RICHARD PASTRANA, ON 04/23/2024 08:25:30[facility]11-06-2024 History of Present illness Narrative* Richard Pastrana MD - 04/22/2024 2:36 PM EST [facility] PROGRESS NOTE Assessment and Plan Yu Younger is a 33 year old gentleman with a past medical history of seizures, ETOH abuse, opiate abuse, tobacco use disorder, who presented to [place] ED 04/19/2024 with complaints of abdominal pain. Initially presented to [facility] ED on 04/19 where imaging was consistent [...] abuse Alcohol withdrawal, resolved Phenobarbital taper [facility] protocol IV thiamine Will plan for addiction medicine consult once improved medically Opiate abuse with dependence D/w pharmacy, has been following at [facility] Last methadone dose 40 mg on [...] Pastrana MD - 04/21/2024 2:35 PM EST [facility] PROGRESS NOTE Assessment and Plan Yu Younger is a 33 year old gentleman with a past medical history of seizures, ETOH abuse, opiate abuse, tobacco use disorder, who presented to [place] ED 04/19/2024 with complaints of abdominal pain. Initially presented to [facility] ED on 04/19 where imaging was consistent [...] at [facility] ETOH abuse Phenobarbital taper [facility] protocol IV thiamine Will plan for addiction medicine consult once improved medically Opiate abuse D/w pharmacy, has been following at [facility] Last methadone dose 40 mg on [...] Garsia PA-C - 04/20/2024 10:27 AM EST [facility] PROGRESS NOTE Assessment and Plan Yu Younger is a 33 year old gentleman with a past medical history of seizures, ETOH abuse, opiate abuse, tobacco use disorder, who presented to [place] ED 04/19/2024 with complaints of abdominal pain. Initially presented to [facility] ED on 04/19 where imaging was consistent [...] at OSH ETOH abuse Phenobarbital taper [facility] protocol IV thiamine Will plan for addiction medicine consult once improved medically Opiate abuse D/w pharmacy, has been following at [facility] Last methadone dose 40 mg on [...] Cardiology, Medications, and Transcriptions documented in this [id number] NoteHMS PROGRESS NOTE Assessment and Plan Yu Younger is a 33 year old gentleman with a past medical history of seizures, ETOH abuse, opiate abuse, tobacco use disorder, who presented to [place] ED 04/19/2024 with complaints of abdominal pain. Initially presented to [facility] ED on 04/19 where imaging was consistent [...] abuse D/w pharmacy, has been following at [facility] Last methadone dose 40 mg on [...] Transcriptions AUTHENTICATED BY RICHARD PASTRANA, ON 04/21/2024 14:38:02[facility]11-05-2024 Note 1. There are findings of moderate to severe acute pancreatitis described above noted to be substantially progressive from 04/19/2024. No evidence for pancreatic necrosis or vascular thrombosis. 2. Small effusions and adjacent lower lobe atelectasis is new. 3. There is mild ascites. 4. There is moderate diffuse fatty infiltration of the liver. Workstation ID: [id number] Plan of care note* Plan of Care [...] level of psychosocial functioning Outcome: Partially Met [id number] NoteHMS PROGRESS NOTE Assessment and Plan Yu Younger is a 33 year old gentleman with a past medical history of seizures, ETOH abuse, opiate abuse, tobacco use disorder, who presented to [place] ED 04/19/2024 with complaints of abdominal pain. Initially presented to [facility] ED on 04/19 where imaging was consistent [...] at OSH ETOH abuse Phenobarbital taper [facility] protocol IV thiamine Will plan for addiction medicine consult once improved medically Opiate abuse D/w pharmacy, has been following at [facility] Last methadone dose 40 mg on [...] Transcriptions AUTHENTICATED BY TESHA GARSIA ON 04/20/2024 10:46:24[facility] 04-19-2024 Emergency department Note* Lily Goss RN - 04/19/2024 3:59 PM EST Hourly rounding assessment completed on the patient. [] Patient updated on plan of care [x] All comfort needs addressed [x] Patient updated on duration of visit All questions answered, patient denies further needs. Call light within reach. [id number] Emergency department Note* Lily Goss RN - 04/19/2024 3:59 PM EST Hourly rounding assessment completed on the patient. [] Patient updated on plan of care [x] All comfort needs addressed [x] Patient updated on duration of visit All questions answered, patient denies further needs. Call light within reach. * Akhil Ann MD - 04/19/2024 2:50 PM ESTAssociated Order(s): Critical Care [facility] ATTENDING NOTE: NAME: Yu Younger CSN: [id number] 33 y.o. PCP: Justin Pearce MD History: [...] Akhil Ann MD, MD ED Attending Physician [facility] Akhil Ann MD 04/19/24 1454 * Carla Stahl RN - 04/19/2024 2:21 PM EST Pt into ED from [facility] for ABD pain. Pt states they told him he had swelling to his pancreas. Pt presents with tremors and diaphoretic. VS stable. * Lesley Ayala RN - 04/19/2024 2:20 PM EST Bed: TR1 Expected date: Expected time: Means of arrival: Comments: R1 documented in this [id number] History and physical note* Rosalba Park MD - 04/19/2024 3:11 PM EST [facility] HISTORY AND PHYSICAL -- [facility] Patient Name: Yu Younger : 1990 MR #: [id number] Admit Date: 04/19/2024 Physicians: Justin Pearce MD (Family); No ref. provider found (Referring) Yu Younger is a 33 y.o. male patient of Justin Pearce MD with history of methadone overdose, vaping, CKD, seizure, presented to [facility] from [facility] on 04/19/2024 with acute pancreatitis. Acute pancreatitis [...] normal coloration Psych: normal mood and affect [id number] NoteHMS HISTORY AND PHYSICAL -- [facility] Patient Name: Yu Younger : 1990 MR #: [id number] Admit Date: 04/19/2024 Physicians: Justin Pearce MD (Family); No ref. provider found (Referring) Yu Younger is a 33 y.o. male patient of Justin Pearce MD with history of methadone overdose, vaping, CKD, seizure, presented to [facility] from [facility] on 04/19/2024 with acute pancreatitis. Acute pancreatitis secondary to alcohol Fatty liver Transaminitis Alcohol use disorder Elevated alkaline phosphate Last alcohol use was 04/18 evening Alk phos 239, AST 371, ALT 153 AST 2 ALT>2 Lipase 4914 Alcohol positive [facility] protocol Phenobarbital taper IV fluids N.p.o. Check [...] affect AUTHENTICATED BY ROSALBA PARK, ON 04/19/2024 17:20:28[facility] 04-19-2024 History and physical note* Rosalba Park MD - 04/19/2024 3:11 PM EST [facility] HISTORY AND PHYSICAL -- [facility] Patient Name: Yu Younger : 1990 MR #: [id number] Admit Date: 04/19/2024 Physicians: Justin Pearce MD (Family); No ref. provider found (Referring) Yu Younger is a 33 y.o. male patient of Justin Pearce MD with history of methadone overdose, vaping, CKD, seizure, presented to [facility] from [facility] on 04/19/2024 with acute pancreatitis. Acute pancreatitis secondary to alcohol Fatty liver Transaminitis Alcohol use disorder Elevated alkaline phosphate Last alcohol use was 04/18 evening Alk phos 239, AST 371, ALT 153 AST 2 ALT>2 Lipase 4914 Alcohol positive [facility] protocol Phenobarbital taper IV fluids N.p.o. Check [...] normal mood and affect documented in this [id number] Physician Emergency department Note* Akhil Ann MD - 04/19/2024 2:50 PM ESTAssociated Order(s): Critical Care [facility] ATTENDING NOTE: NAME: Yu Younger CSN: [id number] 33 y.o. PCP: Justin Pearce MD History: [...] Akhil Ann MD, MD ED Attending Physician [facility] Akhil Ann MD 04/19/24 1459 [id number] Emergency department Triage note* Carla Stahl RN - 04/19/2024 2:21 PM EST Pt into ED from [facility] for ABD pain. Pt states they told him he had swelling to his pancreas. Pt presents with tremors and diaphoretic. VS stable. [id number] Emergency department Note* Lesley Ayala RN - 04/19/2024 2:20 PM EST Bed: TR1 Expected date: Expected time: Means of arrival: Comments: R1 [id number] Emergency department Note* Dariusz Ramirez DO - 04/19/2024 8:25 AM EST Emergency Department Report [facility] Service Date:.04/19/24 PCP: No primary care provider on file. Chief Complaint: Chief Complaint Patient presents with Nausea Abdominal Pain Patient reports left lower quadrant abdominal pain x 1.5hr that woke him from sleep. Pt states he took Pepto Bismol prior to arrival with no relief. Denies any urinary symptoms. 814 Dr Robison has seen, evaluated this patient, inpatient was transferred to [facility] for admission. Patient did not want to take an ambulance, patient wanted family to drive him to [place]. Dr. Robison stated that patient could not drive to [facility] because he was given Dilaudid in the ER for pain. Dr. Robison has sign patient is out against medical advice, patient waspicked up by another individual and driven to [facility]. Patient did have a bed number there. Security Jaeger saw patient get into another car with another individual who was driving, not this patient and patient was driven to [facility]. I do not see or interact [...] 8:23 AM EST Dacia at [facility] made aware that pt signed out AMA * Kylah Celis RN - 04/19/2024 8:16 AM EST Report called to [facility], RN at [facility] made aware that pt signed out AMA at our facility, denies questions * Tracy Ribeiro - 04/19/2024 8:14 AM EST Sujey miramontes [facility] aware that patient signed out AMA and we no longer need transport * Kylah Celis RN - 04/19/2024 8:10 AM EST Pt ambulatory out of ED, pt provided with room number at [facility] * Tracy Ribeiro - 04/19/2024 8:06 AM [...] Tracy Ribeiro - 04/19/2024 7:46 AM EST [facility] calls and patient now has a room. Patients room number is 4032 and report can be called to [phone]. * Tracy Ribeiro - 04/19/2024 7:16 AM EST [facility] calls and patient has been accepted to [place]. There are no rooms available at this time. Patient was accpeted by Dr.Pratik Smith. * Kylah Celis RN - 04/19/2024 7:[address] Robison at bedside to update pt on plan of care * Maribel Good RN - 04/19/2024 6:49 AM EST [facility] called and transferred to at this time. * Maribel Good RN - 04/19/2024 6:40 AM EST Patient puts call light on and communicates to this nurse he cannot be admitted here as it is too far for his family but is willing to be transferred to [facility]. * David Robison DO - 04/19/2024 3:57 AM EST Emergency Department Report [facility]IC[facility] Service Date:.04/19/24 PCP: No primary [...] Patient initially agreed to beadmitted here at [facility] but after talking to his family he wants to be transferred to [place]. I did talk to [facility] transfer [facility] for [place] and awaiting for bed at this time. [...] EST Lab at bedside. [facility] Phys[facility] Emergency department Note* Dariusz Ramirez DO - 04/19/2024 8:25 AM EST Emergency Department Report [facility] Service Date:.04/19/24 PCP: No primary care provider on file. Chief Complaint: Chief Complaint Patient presents with Nausea Abdominal Pain Patient reports left lower quadrant abdominal pain x 1.5hr that woke him from sleep. Pt states he took Pepto Bismol prior to arrival with no relief. Denies any urinary symptoms. 0815 Dr Robison has seen, evaluated this patient, inpatient was transferred to [facility] for admission. Patient did not want to take an ambulance, patient wanted family to drive him to [place]. Dr. Robison stated that patient could not drive to [facility] because he was given Dilaudid in the ER for pain. Dr. Robison has sign patient is out against medical advice, patient waspicked up by another individual and [facility] Hospital. Patient did have a bed number there. Security Jaeger saw patient get into another car with another individual who was driving, not this patient and patient was driven to [facility]. I do not see or interact with this patient at all. Patient was signed out against medical advice by Dr. Robison. Please refer to Dr Robison documentation. Patient left against medical advice. It was determined by Dr. Saleh the patient has a functionalmaking decision capacity to leave his signed out against medical advice. Dariusz Ramirez DO 04/19/24 0837 [facility] [employer] Work Phone: 1(236) 782-700211-03-2024 Emergency department Note* Kylah Celis RN - 04/19/2024 8:23 AM EST Dacia at [facility] made aware that pt signed out AMA [employer]11-03-2024 Emergency department Note* Kylah Celis RN - 04/19/2024 8:16 AM EST Report called to [place] at [facility] made aware that pt signed out AMA at our facility, denies questions [employer]11-03-2024 Emergency department Note* Tracy Ribeiro - 04/19/2024 8:14 AM EST Sujey Rosen aware that patient signed out AMA and we no longer need transport [facility]11-03-2024 Emergency department Note* Kylah Celis RN - 04/19/2024 8:10 AM EST Pt ambulatory out of ED, pt provided with room number at [facility]11-03-2024 Emergency department Note* Tracy Ribeiro - 04/19/2024 8:06 AM EST Patient signs appropriate AMA papers at this time. Patient is aware he is unable to drive due to just being given narcotics. Patient verbalized understanding. [facility]11-03-2024 Emergency department Note* Kylah Celis RN [...] before being admitted. Dr Robison made aware. [facility]11-03-2024 Emergency department Note* Tracy Ribeiro - 04/19/2024 7:56 AM EST Silas will transfer the patient, eta 0845 [facility]11-03-2024 Emergency department Note* Tracy Ribeiro - 04/19/2024 7:46 AM EST [facility] calls and patient now has a room. Patients room number is 4032 and report can be called to [phone]. [facility]11-03-2024 Emergency department Note* Tracy Ribeiro - 04/19/2024 7:16 AM EST [facility] calls and patient has been accepted to [place]. There are no rooms available at this time. Patient was accpeted by Dr.Pratik Smith. [facility]11-03-2024 Emergency department Note* Kylah Celis RN - 04/19/2024 7:[address] Robison at bedside to update pt on plan of care [facility]11-03-2024 Emergency department Note* Maribel Good RN - 04/19/2024 6:49 AM EST [facility] called and transferred to at this time. [facility]11-03-2024 Emergency department Note* Maribel Good RN - 04/19/2024 6:40 AM EST Patient puts call light on and communicates to this nurse he cannot be admitted here as it is too far for his family but is willing to be transferred to [facility]. [facility]11-03-2024 Physician Emergency department Note* David Robison DO - 04/19/2024 3:57 AM EST Emergency Department Report [facility] EMERGENCY MEDICINE Service Date:.04/19/24 PCP: No primary [...] initially agreed to beadmitted here at [facility] but after talking to his family he wants to be transferred to [place]. I did talk to [facility] transfer center for [place] and awaiting for bed at this time. [...] CORRECTED . David Robison DO 04/19/24 0644 [facility]11-03-2024 Emergency department Note* Maribel Good RN - 04/19/2024 3:49 AM EST Lab at bedside. [facility] Phoenix Irvin [facility] Note Date/Time February 19, 2025 1:48pm [facility] Medical Records Department [address] [place] [address] Discharge Summary 02/19/25 1346 MR#: [id number] Acct: [id number] Name: BESSY,YU Calles Rep #:[id number] : 1990 34 From: Phoenix Irvin MD PCP: Care Physician,No Primary Status :ADM IN Location: [facility] [id number] Providers Date of Admission: 02/17/25 Date of [...] Medical Advice Charges/Coding Visit Charges Inpatient E&M: 74263 Disch Hosp >30min 02/19/25 1348 <Electronically signed by Phoenix Irvin MD> Cosigner Signature (if applicable): CC: Dr. Phoenix Irvin MD; No Primary Care Physician~ Signed [facility] Work Phone: Evaluation note* Diagnosis Acute pancreatitis- Primary Alcohol-induced acute pancreatitis without infection or necrosis [facility] Diagnosis Alcohol-induced acute pancreatitis, unspecified complication status- Primary Alcohol-induced acute pancreatitis, unspecified complication status Alcohol withdrawal syndrome without complication (HCC) [facility] Diagnosis Onset Date Resolution Status Admit Date Admitted to alcohol detoxification center acute February 17, 2025 9:24pm [facility] Work Phone: History and physical note Author Sujey Stacy [facility] Note Date/Time February 17, 2025 10:19pm [facility] Medical Records Department [address] [place] [address] H&P Exam - Hospitalist 02/17/252123 MR#: [id number] Acct: [id number] Name: YU YOUNGER Rep #:[id number] : 1990 34 From: Sujey Stacy MD PCP: Care Physician,No Primary Status :ADM IN Location: [facility] KS799-3 HPI - General General Date of Admission: [...] arrival), Tobacco use who presents to the [facility] ED on 02/17/2025 with ongoing substance abuse, [...] 1, phenobarbital 97.2 mg p.o. x 1. [facility] Medical History (Updated 02/17/25 @ 22:[address] Sujey Stacy MD) Tobacco use Alcohol abuse Alcoholic pancreatitis Substance abuse Hx of renal calculi Home Medications ?Medication ?Instructions ?Recorded ?Last Taken ?Type methadone 10 mg tablet 100 mg PO DAILY 05/22/2410/09 History Allergy/AdvReac Type Severity Reaction Status Date / Time levetiracetam (From [facility]) Allergy HIVES Verified 02/17/25 19:44 Family History [...] % (Auto) 67.8, Lymph % (Auto) 24.4, Leake% (Auto) 7.4, Eos % (Auto) 0.0, Baso [...] arrival), Tobacco use who presents to the [facility] ED on 02/17/2025 with ongoing substance abuse, [...] encourage ambulation. Charges/Coding Visit Charges Inpatient E&M: 56007 Init Hosp L3 02/17/259 <Electronically signed by Sujey Stacy MD> Cosigner Signature (if applicable): CC: Dr. Sujey Stacy MD; No Primary Care Physician~ Signed [facility] Work Phone: Reason for referral (narrative)* Unlisted Procedure Code (Routine) - New Request Specialty Diagnoses / Procedures Referred By Contac t Referred To Contact Procedures INPATIENT ADMISSION NOTIFICATION Juma Rodriguez MD [address] [facility] [place] [address] Referral ID Status Reason Start Date Expiration Date V isits Requested Visits Authorized [id number] New Request 04/19/2024 05/14/2025 1 1 [facility]ative)No reason for referral information [facility]WLutheran [facility] Work Phone: Summary Purpose Family History No Family History Records Found Relationship Condition Age at Onset Recorded Date/T tomás Not Specified Malignant neoplasm Unknown mother Hypertension Unknown Polysubstance abuse Unknown father Hypertension Unknown Alcohol abuse Unknown Advance Directives No Advanced Directives Records FoundDocuments on File Type Date Recorded Patient Medicare Nurse Expl anation Advance Directives and Joana thomson Will 12/04/2018 3:02 AM Date Activated Date Inactivated Comments 04/19/2024 4:55 PM 04/23/2024 6:31 PM Date Activated Date Inactivated Comments 04/19/2024 3:10 PM 04/19/2024 4:55 PM Advance Directive Response Recorded Date/ Time Do you have a Healthcare Power of Field Investigator? No February 17, 2025 9:11pm Advance Directive Response Recorded Date/ Time Do you have a Healthcare Power of Field Investigator? No February 17, 2025 10:55pm Reason for Referral Status Reason Specialty Diagnoses / Procedures Referred By Contact Referred To Contact New Request Neurology Diagnoses Seizure Telly Lewis MD [address] [place] [address] Bhavesh Collier MD [address] [place] [address] Assessments Diagnosis Seizure- Primary Other convulsions Diagnosis Accidental drug overdose, initial encounter- Primary Discharge Instructions * Attachments The following attachments cannot be sent through Care Everywhere. * Alcohol - Drug - or Poison Ingestion (Bruneian) documented in this encounter Chief Complaint and [...] section and content) DATE CREATED AUTHOR 12/06/2017 [facility] DATE CREATED AUTHOR AUTHOR'S ORGANIZ ATION 12/15/2017 [facility] DATE CREATED AUTHOR AUTHOR'S ORGANIZ ATION 01/04/2018 [facility] DATE CREATED AUTHOR AUTHOR'S ORGANIZ ATION 08/06/2018 [facility] DATE CREATED AUTHOR AUTHOR'S ORGANIZ ATION 08/09/2020 [facility] DATE CREATED AUTHOR AUTHOR'S ORGANIZ ATION 12/29/2020 [facility] ([place]) DATE CREATED AUTHOR AUTHOR'S ORGANIZ ATION 04/24/2024 [facility] DATE CREATED AUTHOR AUTHOR'S ORGANIZ ATION 04/24/2024 [facility] DATE CREATED AUTHOR AUTHOR'S ORGANIZ ATION 02/27/2025 [facility] Reason for Visit (unrecogniz ed section and content) Reason Comments Drug Overdose Reason Comments Nausea Abdominal Pain Patient reports left lower quadrant abdominal pain x 1.5hr that woke him from sleep. Pt states he took Pepto Bismol prior to arrival with no relief. Denies any urinary symptoms. Specialty Diagnoses / Procedures Referred By Contac t Referred To Contact Diagnoses Acute pancreatitis [facility] Referral ID Status Reason Start Date Expiration Date Visits Re quested Visits Authorized [id number] Reason Comments Abdominal Pain Specialty Diagnoses / Procedures Referred By Contac t Referred To Contact Diagnoses Alcohol withdrawal syndrome without complication (HCC) Alcohol-induced acute pancreatitis, unspecified complication status Referral ID Status Reason Start Date Expiration Date Visits Re quested Visits Authorized [id number] 1 1 Zach Swain RN - 12/04/2018 [...] Order(s): ECG 12- Lead ED PROVIDER NOTE [facility] EM[facility]GENCY [facility] NAME: Yu Younger AGE: 28 y.o. : 1990 VISIT DATE: 12/04/2018 CSN: [id number] PCP: Telly Lewis MD Chief Complaint Patient [...] file Gets together: Not on file Attends denominational service: Not on file Active member of [...] [employer] 0906 (Patch Removed - Provider: rDea Mayfield RN)0907 (Patch Applied - Provider: Drea [...] For 1 dose 2122 (Given - Provider: Sakshi Joshi RN) potassium chloride SA (K-DUR,KLOR-CON) CR tablet 40 mEq (COMPLETED) 40 mEq, Oral, Once, On Sat04/22/24 at 0715, For 1 dose, DO NOT CRUSH OR CHEW (if instructed may dissolve tablet(s) in liquid) DO NOT ADMINISTER DISSOLVED TABLET VIA SURGICALLY PLACED TUBE OR TUBE less than 14 American. To administer dissolved tablet(s) mix with 4 ounces of water over 2-3 minutes, stir for 30 seconds prior to administration; rinse dosing cup and administer residual medication to ensure full dose given 0630 (Given - Provider: Jett Dhaliwal RN) potassium chloride SA (K-DUR,KLOR-CON) CR tablet 40 mEq (COMPLETED) 40 mEq, Oral, Once, On Sat04/22/24 at 0930, For 1 dose, DO NOT CRUSH OR CHEW (if instructed may dissolve tablet(s) in liquid) DO NOT ADMINISTER DISSOLVED TABLET VIA SURGICALLY PLACED TUBE OR TUBE less than 14 American. To administer dissolved tablet(s) mix with 4 ounces of water over 2-3 minutes, stir for 30 seconds prior to administration; rinse dosing cup and administer residual medication to ensure full dose given 1004 (Given - Provider: Marielel Anne, RONNY) potassium, sodium phosphates (PHOS-NAK) 280-160-250 [...] Jett Dhaliwal, RN)0235 (Restarted - Provider: Jett Dhaliwla, RN)0236 (Paused - Provider: Jett Dhaliwal, RN)0236 [...] Jett Dhaliwal, RN)0743 (Paused - Provider: Jett Dahliwal, RN)0743 (Restarted - Provider: Jett Dhaliwal, RN)0753 (Paused - Provider: Jett Dahliwal, RN)0754 (Restarted - Provider: Jett Dhaliwal RN)0906 [...] Provider: Sonya Otto, TECHNOLOGIST - Comment: LOT: [id number]:2027- 05) iopamidol (ISOVUE-370) 76 % oral solution 6 mL (COMPLETED) 6 mL, Oral, Every 30 min PRN, contrast, Starting on Sat04/21/24 at 1058, For 3 doses, Dilute each 6mls with 300mls cold water prior to oral administration 1133 (Contrast Administered - Provider: Drea Mayfield RN)1202 (Contrast Administered - Provider: Drea Mayfield RN)1235 (Contrast Administered - Provider: Dera Mayfield, RONNY) LORazepam (ATIVAN) injection 4 mg(Linked [...] mL, Intravenous, Once in imaging, contrast, Per healthcare advisory services manager (Radiology) for line patency check prior to contrast administration, Starting on Sat04/21/24 at 1058, For 1 dose 1318 (Given - Provider: Sonya Otto, TECHNOLOGIST) sodium chloride (PF) (NS) 0.9 % contrast line flush 80 mL (COMPLETED)(Linked Group 5) 80 mL, Intravenous, Once in imaging, contrast, Per healthcare advisory services manager (Radiology), Starting on Sat04/21/24 at 1058, For 1 dose, 30 mL BEFORE contrast administration 50 mL AFTER contrast administration 1318 (Given - Provider: Sonya Otto, TECHNOLOGIST) Linked Groups Order Group 1: PHENobarbital injection 162.5 mg (COMPLETED) 162.5 mg (rounded from 164.16 mg = 2.4 mg/kg 68.4 kg [place] weight), Intramuscular, Once, On Sat04/19/24 at 1505, [...] 123.12 mg = 1.8 mg/kg 68.4 kg [place] weight), Intramuscular, Every 3 hours, First dose [...] mL, Intravenous, Once in imaging, contrast, Per healthcare advisory services manager (Radiology) for line patency check prior to contrast administration, Starting on Sat04/21/24 at 1058, For 1 dose And sodium chloride (PF) (NS) 0.9 % contrast line flush 80 mL (COMPLETED)Jump to med 80 mL, Intravenous, Once in imaging, contrast, Per healthcare advisory services manager (Radiology), Starting on Sat04/21/24 at 1058, For 1 dose, 30 mL BEFORE contrast administration 50 mL AFTER contrast administration Care Teams (unrecognized sec tion and content) Bender Machine Relationship Specialty Start Date End Date Justin Pearce MD [address] [place] [id number] PCP - General 05/23/22 [facility] [...] BE BASED ON THE PRIMARY CLINICAL RECORDS. [employer] provides no warranty or guarantee of the accuracy or completeness of information in this document.
[2025-05-29] MEDS: 0.9% Normal Saline (1000mL) 1,000 ML 1000 ML IV (11:51)
[2025-05-29 12:10] LABS: Hematocrit 40.7 % (40-54); Hemoglobin 13.8 g/dL (13.0-16.5); Immature Granulocytes Count 0.010 X10^3/uL (0.0-0.0); Mean Corp Hgb Conc 33.9 g/dL (32-36); Mean Corpuscular Volume 88.9 fL (80-94); Mean Platelet Vol. 9.6 fl (6.2-12.0); NRBC Flagged by Analyzer 0 % (0-5); POSITIVE COUNT YES; Platelet Count 133 K/mm3 (150-450); RBC Distribution Width CV 12.1 % (11.6-14.6); RBC Distribution Width SD 39.2 fl (35.1-43.9); Red Blood Count 4.58 M/mm3 (4.6-6.2); White Blood Count 5.7 K/mm3 (4.4-11.0)
[2025-05-29 12:17] LABS: Mucous, Urine 0 SEEN /hpf (<or=2+); Red Blood Cells-Urine 0 SEEN /hpf (0-5); Squamous Epithelial Cells - UA 0 SEEN /hpf (0-5)
[2025-05-29 12:19] LABS: CPK Total, Creatine Kinase 106 U/L (24-195)
[2025-05-29 12:19] LABS: Color, Urine Yellow (Yellow); Glucose, Dipstick Normal (Normal); Ketone-Dipstick Negative (Negative); Leukocyte Esterase-Dipstick 100 /ul (Negative); Nitrite-Dipstick Negative (Negative); Occult Blood-Urine Negative /ul (Negative); Protein-Dipstick 30 mg/dl (Negative); Specific Gravity, Urine 1.010 (1.002-1.030); Urine Bilirubin Dipstick Negative (Negative)
[2025-05-29 12:35] LABS: Lipase 41 U/L (13-75)
[2025-05-29 12:36] LABS: Differential Indicated SCAN CRITERIA MET
[2025-05-29 12:38] LABS: AST(SGOT) 340 U/L (<=37); Alanine Aminotransfer ALT/SGPT 87 U/L (<=46); Albumin, Serum 4.2 g/dL (3.5-5.0); Alkaline Phosphatase 163 U/L (40-129); Anion Gap 17 (5-15); BUN 8 mg/dL (4-19); BUN/Creat Ratio 9.6 RATIO (10-20); Calcium,Total 9.0 mg/dL (7.6-11.0); Carbon Dioxide 23.7 mmol/L (21.0-32.0); Chloride 95 mmol/L (98-108); Estimated Creatinine Clearance 113.23 ml/min (50-250); Globulin 3.6 g/dL (2.2-4.2); Glucose 97 mg/dL (70-99); Potassium 4.0 mmol/L (3.3-5.1)
[2025-05-29 12:38] LABS: Barbiturate Urine PRESUMPTIVE POSITIVE (< 200 ng/mL); Benzodiazepine Urine NEGATIVE (< 200 ng/mL); PCP Urine NEGATIVE (< 25 ng/mL); THC Urine NEGATIVE (< 50 ng/mL)
[2025-05-29 12:41] LABS: Alcohol, Blood (Medical)-Serum 201.0 mg/dL (<=10.0)
--- NOTE | 2025-05-29 12:50 | PCM.HP.STD ---
HPI - General General Date of Admission: 05/29/25 Date of Service: 05/29/25 Chief Complaint: Alcohol and opioid withdrawal symptoms HPI Narrative YU DOHERTY, is a 34 M who presents to get help for alcohol withdrawal symptoms. Patient drinks 20-24 bottles of 13% alcoholic drink every day and he continuously drinks throughout the day. He also got prescription of methadone oral concentrate 120 mg once daily about 1 week ago. He started using opioids as Percocet and then heroin 2 to 3 g snorting and now he is associated with methadone clinic. He also does vaping. Currently, the patient having withdrawal symptoms of tremor, loose bowel movement/diarrhea, shaking, visual hallucinations, weird dreams and sometimes nightmares. He said recently his mom therefore he left AMA on the last admission in April 2025. In ED, vitals shows patient tachycardic, heart rate 148/min and blood pressure elevated 160/119. Patient further admitted. [facility] Medical History Tobacco use Alcohol abuse Alcoholic pancreatitis Substance abuse Hx of renal calculi Home Medications ?Medication ?Instructions ?Recorded ?Last Taken ?Type clonidine HCl 0.2 mg tablet 0.2 mg PO TID PRN PRN anxiety 05/29/25 05/28/25 History methadone 120 mg PO 1XD opioid withdrawl 05/29/25 05/29/25 History Allergy/AdvReac Type Severity Reaction Status Date / Time levetiracetam (From [facility]) Allergy HIVES Verified 05/29/25 10:57 Family History Mother Hypertension Polysubstance abuse Father Hypertension Polysubstance abuse Alcohol abuse Other Cancer Surgical History Hx of tonsillectomy Social History household members: spouse Smoking Status: Current every day smoker tobacco type: e-cigarettes Electronic Cigarette Use: with nicotine alcohol intake: current alcohol intake frequency: 3 or more drinks per day Alcohol type: hard liquor details: Approximately 1 pint Francine daily substance use type: heroin, opiates and other details: Heroin/fentanyl 1 to 2 g daily snorted ROS ROS Narrative Constitutional: Denies chronic fatigue and weakness. No fever. HEENT: Reports systems reviewed and no addt'l complaints, except as documented Respiratory/Chest: No acute shortness of breath or respiratory distress or wheezing. CVS: Denies chronic heart disease Gastrointestinal: Denies coffee ground emesis, hematemesis or vomiting no abdominal pain. History of hepatitis C treatment 7 to 8 years ago. Genitourinary: Denies burning urination or new urinary tract symptoms Musculoskeletal: Denies acute joint pain or limited range of motion. No acute injury Neurologic: Denies seizure-like symptoms. Psychiatric: Hallucinations. Nightmares. skin: No ulcer. No rash Endocrinology: Reports systems reviewed and no addt'l complaints, except as documented Hematologic/Lymphatic: Reports systems reviewed and no addt'l complaints, except as documented Rest 14 ROS are negative except as mentioned in HPI Vital Signs Vital Signs Vital Signs: 05/29/25 10:54 05/29/25 12:19 Temperature 98.4 F Temperature Source Oral Pulse Rate 148 H 104 H Respiratory Rate 20 H 18 Blood Pressure 164/119 H 152/102 H Blood Pressure Mean 134 118 Pulse Ox 98 95 Oxygen Delivery Method Room Air Room Air Weight Weight: 137 lb 5.568 oz Body Mass Index (BMI) 20.8 Physical Exam Narrative General: Alert, Oriented x3, Cooperative HEENT: Atraumatic, PERRLA, EOMI, Normocephalic. Oral: Oral mucosa moist. No Gingival or Mucosal Lesions/ Ulcerations Neck: Supple, No JVD, Negative Carotid Bruits Chest wall/Lungs: Air entry equal in bilateral lung bases. No crepitation/rhonchi Cardiovascular: Regular rate and rhythm, Normal S1,S2, No M/G/R Abdomen: Bowel Sounds Present, Soft, Non Tender, Non-Distended : No dysuria. No renal angle tenderness. No suprapubic tenderness. Extremities: No edema, Capillary Refill Less than 3 Seconds Skin: No rashes, No breakdown Musculoskeletal: No Tenderness to Palpation of Joints or Extremities Neurological: Cranial nerves II-XII grossly intact, DTR 2+/4. No acute focal neurological deficit. Psych/Mental Status: Flat affect. Pressured speech Results Lab / Micro Data 05/29/25 12:00 05/29/25 12:00 Labs: Laboratory Results - last 24 hr 05/29/25 11:30: Total Creatine Kinase 106 05/29/25 12:00: WBC 5.7, RBC 4.58 L, Hgb 13.8, Hct 40.7, MCV 88.9, MCH 30.1, MCHC 33.9, RDW Std Deviation 39.2, RDW Coeff of Ida 12.1, Plt Count 133 L, MPV 9.6, Immature Gran % (Auto) 0.200, Neut % (Auto) 64.5, Lymph % (Auto) 25.5, [place] % (Auto) 9.2, Eos % (Auto) 0.3, Baso % (Auto) 0.3, Absolute Neuts (auto) 3.7, Absolute Lymphs (auto) 1.46, Nucleated RBC % 0, Platelet Estimate SLT DEC, Sodium 135, Potassium 4.0, Chloride 95 L, Carbon Dioxide 23.7, Anion Gap 17 H, BUN 8, Creatinine 0.81, Estim Creat Clear Calc 113.23, Est GFR (MDRD) Non-Af 119, BUN/Creatinine Ratio 9.6 L, Glucose 97, Calcium 9.0, Total Bilirubin 1.27, AST 340 H, ALT 87 H, Alkaline Phosphatase 163 H, Total Protein 7.9, Albumin 4.2, Globulin 3.6, Albumin/Globulin Ratio 1.2, Lipase 41, Ethyl Alcohol 201.0 H 05/29/25 12:07: Urine Color Yellow, Urine Clarity Clear, Urine pH 8.0, Ur Specific [place] 1.010, Urine Protein 30 H, Urine Glucose (UA) Normal, Urine Ketones Negative, Urine Occult Blood Negative, Urine Nitrite Negative, Urine Bilirubin Negative, Urine Urobilinogen 8 H, Ur Leukocyte Esterase 100 H, Urine RBC 0 SEEN, Urine WBC 0-5 SEEN, Ur Squamous Epith Cells 0 SEEN, Urine Bacteria 0 SEEN, Urine Mucus 0 SEEN, Urine Opiates Screen NEGATIVE, U Buprenorphine Qual NEGATIVE, Ur Oxycodone Screen NEGATIVE, Urine Methadone Screen PRESUMPTIVE POSITIVE, Urine Fentanyl Screen PRESUMPTIVE POSITIVE, Ur Barbiturates Screen PRESUMPTIVE POSITIVE, Ur Phencyclidine Scrn NEGATIVE, Ur Amphetamines Screen NEGATIVE, U Benzodiazepines Scrn NEGATIVE, Urine Cocaine Screen NEGATIVE, U Cannabinoids Screen NEGATIVE Assessment & Plan Assessment/Plan (1) Alcohol withdrawal delirium, acute, hyperactive: (2) Acute opioid withdrawal: PLAN: Plan This is a 34-year-old gentleman being admitted for acute alcohol withdrawal syndrome. 1. Acute alcohol withdrawal syndrome with history of chronic alcohol use disorder, dependence, tolerance: Patient is being admitted to MedSurg floor. Patient on phenobarbital based order set along with other adjunctive medications gabapentin, Bentyl, Vistaril, clonidine, Klonopin as needed for alcohol withdrawal symptom control. Patient is on thiamine and folate acid. CIWA monitor. product engineering manager 180 consulted. Serum Ethyl alcohol 201. 2. Acute opioid withdrawal syndrome: The patient is started on buprenorphine along with other adjunctive medications as needed for medical stabilization as per order set of opioid withdrawal syndrome.Patient also on trazodone, hydroxyzine, gabapentin as needed ordered. COWS monitoring. Advised quitting opioid use. product engineering manager consult. Patient using methadone as an outpatient and will hold it. UTOX positive of methadone screen, fentanyl, barbiturates. 3. Chronic tobacco use disorder/nicotine dependence: Patient does vaping. Nicotine patch ordered 4. Chronic alcoholic hepatitis: During previous hospitalization in April, AST and ALT were elevated. ALP was also elevated 155. This time, AST 340, ALT 87 and ALP 163. Total bilirubin normal 1.27. IV fluid ordered. Monitor CMP daily. 5. DVT prophylaxis low risk. Early ambulation encouraged. No prophylaxis indicated Living will/advanced directive/end of life care: Patient does not have living will or advanced directive. He does not tend to get power of animal health technician for health after discussion of benefits/risks procedures involved with full code, DNR CC arrest and DNR CC, the patient opted for full code. Patient does want artificial life support including intubation, tube feed, ventilator and/chest compression, central venous catheter, vasopressor and DC shock if needed Total time spent in [id number] encounter in discussion of advanced directive 17 minutes. Charges/Coding Visit Charges Inpatient E&M: 49435 Init Hosp L3 Procedures Hospitalists Procedures: 59221 Advncd Care Plan 30 Min
[2025-05-29 13:01] LABS: Magnesium 1.8 mg/dL (1.5-2.2)
[2025-05-29] MEDS: Pantoprazole Sodium 40 MG in 0.9% Normal Saline (100mL MB+) 100 ML 300 MG IV (13:04)
--- OUTSIDE RECORDS SUMMARY | 2025-05-29 14:07 | XMS RPT_ITS | CCD ---
Author Organization [facility] CliniSyde Care Team Providers Care Water Pump Assembler Name Role Phone YU CRUMP Unavailable Unavailable NO FAMILY PHYSICIAN, 837 Unavailable Unavail able O'Day, Carmen S Unavailable Unavailable Physician, No Family Unavailable Unavailable Physician, No Family Unavailable Unavailable Maria Teresa Monaco Primary Care Provider Dante Billy Admitting Unavailable Dante Billy Attending Unavailable Tre, Will S Admitting Unavailable [place], Will S Attending Unavailable Tre, Will S [...] Attending Unavailable JUSTIN PEARCE Primary Care Unavailable [facility] Attending Doni post SYSTEM, PROVIDER NOT IN Referring UnavailJUSTIN Cano Primary Care Unavailable ROSALBA PARK Admitting Unavailable RICHARD PASTRANA Attending Unavailable [facility] Consulting JUSTIN Kahn Primary Care Unavailable Care Physician, No Primary Primary Care Provider Unavailable Dr. Dada Caballero DO Emergency Provider [phone] Tawanna INFANTE, Dr. Sujey Bolaños Admit Provider [...] Translations: [LEVETIRACETAM] Drug Allergy 04-03-2018 [facility] (1 source) levETIRAcetam Drug Allergy 02-17-2025 [facility] Repository Medications Current Medications Medication Drug Class(es) [...] mg docusate sodium 50 mg / sennosides, skilled nursing 8.6 mg oral tablet (1 source) Start: [...] PLACED TUBE OR TUBE less than 14 Libyan. 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 Phoenix Irvin MD Status: ADM IN Ordering Dr: Dada Caballero DO Date: 0 02/17/25 Location: [place] Sex: M C Admitted: 02/17/25 Test Reason : SUBSTANCE ABUSE Blood Pressure : */* mmHG Vent. Rate : 103 BPM Atrial Rate : 103 BPM P-R Int : 162 ms QRS Dur : 88 ms QT Int : 362 ms P-R-T Axes : 72 20 78 degrees QTcB Int : 474 ms Sinus tachycardia Otherwise normal ECG Confirmed by Bhavesh Castillo ([id number]), subeditor SHREYA REYES ([id number]) on 02/19/2025 6:44:10 AM Referred By: Confirmed By: Bhavesh Castillo 02/19/25 0644 Date _ Bhavesh Castillo MD CC: Dr. Phoenix Irvin MD; Dr. Dada Caballero DO; No Primary Care Physician ~ Signed [facility] Other Phone: Hepatitis B Surface Antibody on 02-18-2025 HEP B Surf Ab Non-Reactive Normal [facility] Comment on above: Order Comment: ABIDA Figueredo PREVIOUS SPECIMEN REJECTED DUE TO QNS. 05/23/24 0647 Bonilla Mejía Result Comment: <8.5 mIU/mL: Non-Reactive 8.5<= x <11.5 mIU/mL: Indeterminate >=11.5 mIU/mL: Reactive Non Reactive: Inconsistent with immunity less than <10 mIU/mL Reactive: Consistent with immunity greater than or equal to 10 mIU/mL Performed By: #### L 501.9520, L501.5200, L500.4050, L501.2300, L501.4700 #### [facility] Laboratory [address] [facility] [place], [address] Hepatitis C Antibodyon 02-18 Hepatitis C Ab REAC Normal Nonreactive [facility] Comment on above: Order Comment: REDRA W. [...] HCV Quant by PCR testing - HCVPCR #[id number] Non Reactive: < 0.8 Equivocal: >/= 0.8 to < 1.0 Reactive: >/= 1.0 The CDC requires that a reactive/equivocal HCV antibody result be sent out for confirmation. HCV Quant by PCR testing. Performed By: #### L 501.9520, L501.5200, L500.4050, L501.2300, L501.4700 #### [facility] Laboratory [address] [facility] [place], [address] L3890.6102on 02-18-2025 HEP B Surf Ag Non-Reactive Normal Nonreactive [facility] Comment on above: Order Comment: RED W. PREVIOUS SPECIMEN REJECTED DUE TO QNS. 05/23/2447 Bonilla Moore. Result Comment: Reac tive: Presumptive evidence of HBV. Repeatedly reactive samples must be confirmed using a neutralization test ([employer] HBsAg Confirmatory Test) Non-Reactive: HBsAg not detected; does not exclude the possibility of exposure to HBV Performed By: #### L 501.9520, L501.5200, L500.4050, L501.2300, L501.4700 #### [facility] Laboratory [address] [place], [address] 12 Lead EKGon 02-17-2025 12 Lead EKG [facility] Cardiovascular Services [address] [place] [address] 12 Lead EKG 02/17/25 2100 MR#: [id number] Acct: [id number] Name: YU YOUNGER Rep #: [id number] : 1990 34 From: Bhavesh Castillo MD [...] Otherwise normal ECG Confirmed by Bhavesh Castillo ([id number]), subeditor SHREYA REYES ([id number]) on 02/19/2025 6:44:10 AM Referred By: Confirmed By: Bhavesh Castillo 02/19/25 0644 Date Bhavesh Castillo MD CC: Dr. Phoenix Irvin MD; Dr. Dada Caballero DO; No Primary Care Physician Signed Normal [facility] Absolute lymphocyte countOrd ered By: Dada Caballero on 02-17-2025 Lymphocytes Auto (Unsp spec) [#/Vol] 1.72 10*3/uL 0.83-4.51 [facility] Absolute neutrophil countOrd ered By: Dada Caballero on 02-17-2025 Neutrophils (Bld) [#/Vol] 4.8 10*3/uL 2.0-7.7 [facility] Alcohol, Blood (Medical)-Ser umon 02-17-2025 SERUM ETOH 239.0 mg/dL High <=10.0 [facility] Comment on above: Result Comment: This test is for medical purposes only. The legal definition of intoxication varies according to local law. Performed By: #### L 500.2500, L501.9100, L505.5000, L100.0100 #### [facility] Laboratory [address] [place], [address] Anion gap in Serum or Plasma Ordered By: Dada Caballero on 02-17-2025 Anion gap [Moles/Vol] 15 mmol/L 5-15 [facility] Automated blood erythrocyte countOrdered By: Dada Caballero on 02-17-2025 RBC (Bld) [#/Vol] 4.43 10*6/uL Low 4.6-6.2 [facility] Comment on above: Performed By: #### L 500.2500, L501.9100, L505.5000, L100.0100 #### [facility] Laboratory [address] [place], [address] Automated blood hematocrit ( percentage)Ordered By: Dada Caballero on 02-17-2025 Hematocrit (Bld) [Volume fraction] 38.2 % Low 40-54 [facility] Comment on above: Performed By: #### L 500.2500, L501.9100, L505.5000, L100.0100 #### [facility] Laboratory [address] [place], [address] Automated lymphocyte count a s percentage of total leukocytesOrdered By: Dada Caballero on 02-17-2025 Lymphocytes/100 WBC Auto (Unsp spec) 24.4 % 19-41 [facility] BUN/creatinine ratioOrdered By: Dada Caballero on 02-17-2025 Urea nitrogen/Creatinine [Mass ratio] 8.1 mg/mg Low 10-20 [facility] Basic Metabolic Profile (BMP )on 02-17-2025 BUN/CRE 8.1 RATIO Low - [facility] Comment on above: Performed By: #### L 500.2500, L501.9100, L505.5000, L100.0100 #### [facility] Laboratory [address] [place], [address] ECRCL 102.09 ml/min Normal 50-250 [facility] Comment on above: Performed By: #### L 500.2500, L501.9100, L505.5000, L100.0100 #### [facility] [address] [place], [address] GAP 15 Normal 5-15 [facility] Comment on above: Performed By: #### L 500.2500, L501.9100, L505.5000, L100.0100 #### [facility] [address] [place], [address] Potassium [Moles/Vol] 3.4 mmol/L Normal 3.3-5.1 [facility] Comment on above: Performed By: #### L 500.2500, L501.9100, L505.5000, L100.0100 #### [facility] [address] [place], [address] Basophil percentageOrdered B y: Dada Caballero on 02-17-2025 Basophils/100 WBC (Bld) 0.3 % Normal 0-1 [facility] Comment on above: Performed By: #### L 500.2500, L501.9100, L505.5000, L100.0100 #### [facility] [address] [place], [address] CBC W/Diff, Automatedon Absolute Lymph 1.72 X10 3/uL Normal 0.83-4.51 [facility] Comment on above: Performed By: #### L 500.2500, L501.9100, L505.5000, L100.0100 #### [facility] [address] [place], [address] Absolute Neut 4.8 X10 3/uL Normal 2.0-7.7 [facility] Comment on above: Performed By: #### L 500.2500, L501.9100, L505.5000, L100.0100 #### [facility] [address] [place], [address] IG% 0.100 Normal 0.0-0.9 [facility] Comment on above: Result Comment: IG% - Immature Granulocytes (promyelocytes, myelocytes and metamyelocytes) > 1% indicates that a LEFT SHIFT is Present. Performed By: #### L 500.2500, L501.9100, L505.5000, L100.0100 #### [facility] [address] [place], [address] Lymphocytes/100 WBC (Bld) 24.4 % Normal 19-41 [facility] Comment on above: Performed By: #### L 500.2500, L501.9100, L505.5000, L100.0100 #### [facility] [address] [place], [address] Nucleated RBC (Bld) [#/Vol] 0 10*3/uL Normal 0-5 [facility] Comment on above: Performed By: #### L 500.2500, L501.9100, L505.5000, L100.0100 #### [facility] [address] [place], [address] RDW SD 41.9 fl Normal 35.1-43.9 [facility] Comment on above: Performed By: #### L 500.2500, L501.9100, L505.5000, L100.0100 #### [facility] [address] [place], [address] Carbon dioxide, total [Moles /volume] in Central venous bloodOrdered By: Dada Caballero on 02-17-2025 CO2 [Moles/Vol] 21.7 mmol/L Normal 21.0-32.0 [facility] Comment on above: Performed By: #### L 500.2500, L501.9100, L505.5000, L100.0100 #### [facility] Laboratory [address] [place], [address] Chloride assayOrdered By: Nazario Caballero on 02-17-2025 Chloride [Moles/Vol] 105 mmol/L Normal 98-108 [facility] Comment on above: Performed By: #### L 500.2500, L501.9100, L505.5000, L100.0100 #### [facility] [address] [place], [address] Emergency Department Summary on 02-17-2025 Emergency Department Summary [facility] Medical Records Department [address] [place] [address] Emergency Department Summary 02/17/25 MR#: [id number] Acct: [id number] Name: YU YOUNGER Rep #: [id number] : 1990 34 From: Dada Caballero DO PCP: Care Physician,No Primary Status:ADM IN Location: [address] History of Present Illness Chief Complaint: [facility]stance [facility] Medical History (Updated 02/17/25 @ 22:[address] Sujey Stacy MD) Tobacco use Alcohol abuse Alcoholic pancreatitis Substance abuse Hx of renal calculi Home Medications ???Medication ???Instructions ???Recorded ???Last Taken ???Type methadone 10 mg tablet 100 mg PO DAILY 05/22/24 06/20/24 History Allergy/AdvReac Type Severity Reaction Status Date / Time levetiracetam (From [facility]) Allergy HIVES Verified 02/17/25 19:44 Family History (Updated 02/17/25 @ 22:[address] Sujey tSacy MD) Mother Hypertension Polysubstance abuse Father Hypertension [...] 100 99 Oxygen Delivery Method Room Air [facility] MDM Narrative Medical decision making narrative: [...] signs showed (more content not included)... Normal [facility] Eosinophil percentageOrdered By: Dada Caballero on 02-17-2025 Eosinophils/100 WBC (Bld) 0.0 % Normal 0-5 [facility] Comment on above: Performed By: #### L 500.2500, L501.9100, L505.5000, L100.0100 #### [facility] Laboratory [address] [place], [place], [id number] Erythrocyte distribution wid th ratioOrdered By: Dada Caballero on 02-17-2025 Erythrocyte distribution width (RBC) [Ratio] 13.4 % Normal 11.6-14.6 [facility] Comment on above: Performed By: #### L 500.2500, L501.9100, L505.5000, L100.0100 #### [facility] [address] [facility] [place], [address] Erythrocyte distribution wid th standard deviationOrdered By: Dada Cbaallero on 02-17-2025 Erythrocyte distribution width (RBC) [Ratio] 41.9 fl 35.1-43.9 [facility] Glomerular filtration rate ( GFR) estimation/1.73 sq m using serum, plasma, or whole bOrdered By: Dada Caballero on 02-17-2025 GFR/1.73 sq M.predicted among non-blacks MDRD (S/P/Bld) [Vol rate/Area] 113 mL/min/{1.73_m2} Normal >60 [facility] Comment on above: mL/min/1.73m2 CKD-EP I Creatinine Equation (2020) Result Comment: mL/m in/1.73m2 CKD-EPI Creatinine Equation (2020) Performed By: #### L 500.2500, L501.9100, L505.5000, L100.0100 #### [facility] [address] [facility] [place], [address] H AND P Exam - Hospitaliston 02-17-2025 H&P Exam - Hospitalist [facility] Medical Records Department [address] [place] [address] H P Exam - Hospitalist 02/17/252123 MR#: [id number] Acct: [id number] Name: YU YOUNGER Rep #: [id number] : 1990 34 From: Sujey Stacy MD PCP: Care Physician,No Primary Status:ADM IN Location: [id number] HPI - General General Date of Admission: [...] arrival), Tobacco use who presents to the [facility] ED on 02/17/2025 with ongoing substance abuse, [...] 1, phenobarbital 97.2 mg p.o. x 1. [facility] Medical History (Updated 02/17/25 @ 22:[address] Sujey Stacy MD) Tobacco use Alcohol abuse Alcoholic pancreatitis Substance abuse Hx of renal calculi Home Medications ???Medication ???Instructions ???Recorded ???Last Taken ???Type methadone 10 mg tablet 100 mg PO DAILY 05/22/24 06/20/24 History Allergy/AdvReac Type Severity Reaction Status Date / Time levetiracetam (From [facility]) Allergy HIVES Verified 02/17/25 19:44 Family History [...] occasional stag (more content not included)... Normal [facility] HIVon 02-17-2025 HIV Non-Reactive Normal Nonreactive [facility] Comment on above: Order Comment: ABIDA Figueredo [...] Order the HIV antibody detection and differentiation: [id number] Performed By: #### L 501.9520, L501.5200, L500.4050, L501.2300, L501.4700 #### [facility] Laboratory [facility] [place], [address] Hemoglobin measurementOrdere d By: Dada Caballero on 02-17-2025 Hemoglobin (Bld) [Mass/Vol] 13.2 g/dL Normal 13.0-16.5 [facility] Comment on above: Performed By: #### L 500.2500, L501.9100, L505.5000, L100.0100 #### [facility] [address] [facility] [place], [address] Immature granulocytes/100 WB C Auto (Bld)Ordered By: Dada Caballero on 02-17-2025 Immature granulocytes/100 WBC (Bld) 0.100 % 0.0-0.9 [facility] Comment on above: IG% - Immature Granu locytes (promyelocytes, myelocytes and metamyelocytes) > 1% indicates that a LEFT SHIFT is Present. Laboratory - Microbiology an d Antimicrobial susceptibilityOrdered By: Sujey Stacy on 02-17-2025 HBV surface Ag Ql (S) Non-Reactive Nonreactive [facility] Comment on above: Reactive: Presumptiv e evidence of HBV. Repeatedly reactive samples must be confirmed using a neutralization test ([employer] HBsAg Confirmatory Test)Non-Reactive: HBsAg not detected; does not exclude the possibility of exposure to HBV MCV (mean corpuscular volume ) determinationOrdered By: Dada Caballero on 02-17-2025 MCV (RBC) [Entitic vol] 86.2 fL Normal 80-94 [facility] Comment on above: Performed By: #### L 500.2500, L501.9100, L505.5000, L100.0100 #### [facility] [address] [facility] [place], [address] Magnesiumon 02-17-2025 Magnesium [Mass/Vol] 2.0 mg/dL Normal 1.5-2.2 [facility] Comment on above: Order Comment: ABIDA Figueredo PREVIOUS SPECIMEN REJECTED DUE TO QNS. 05/23/24 0647 Bonilla Moore. Performed By: #### L 501.9520, L501.5200, L500.4050, L501.2300, L501.4700 #### [facility] [address] [facility] [place], [address] Magnesium measurement (mass/ volume)Ordered By: Sujey Stacy on 02-17-2025 Magnesium (Unsp spec) [Mass/Vol] 2.0 mg/dL 1.5-2.2 [facility] Mean corpuscular hemoglobin (MCH) determinationOrdered By: Dada Caballero on 02-17-2025 MCH (RBC) [Entitic mass] 29.8 pg Normal 27.0-32.0 [facility] Comment on above: Performed By: #### L 500.2500, L501.9100, L505.5000, L100.0100 #### [facility] [address] [place], [address] Mean corpuscular hemoglobin concentration (MCHC) determinationOrdered By: Dada Caballero on 02-17-2025 MCHC (RBC) [Mass/Vol] 34.6 g/dL Normal 32-36 [facility] Comment on above: Performed By: #### L 500.2500, L501.9100, L505.5000, L100.0100 #### [facility] [address] [place], [address] Mean platelet volume determi nationOrdered By: Dada Caballero on 02-17-2025 Platelet mean volume (Bld) [Entitic vol] 9.6 fL Normal 6.2-12.0 [facility] Comment on above: Performed By: #### L 500.2500, L501.9100, L505.5000, L100.0100 #### [facility] [address] [place], [address] Monocyte percentageOrdered B y: Dada Caballero on 02-17-2025 Monocytes/100 WBC (Bld) 7.4 % Normal 0-10 [facility] Comment on above: Performed By: #### L 500.2500, L501.9100, L505.5000, L100.0100 #### [facility] [address] [place], [address] Neutrophil percentageOrdered By: Dada Caballero on 02-17-2025 Neutrophils/100 WBC (Bld) 67.8 % Normal 47-70 [facility] Comment on above: Performed By: #### L 500.2500, L501.9100, L505.5000, L100.0100 #### [facility] [address] [place], [address] No Panel InformationOrdered By: Sujey Stacy on 02-17-2025 HIV (1&2) Antibody Non-Reactive Nonreactive [facility] Comment on above: Non-ReactiveReactive Repeatedly reactive samples must be confirmed according to CDC recommended confirmatory algorithms. The subresults for either HIVAG or AHIV can be used as an aid in the selection of the confirmation algorithm for reactive samples.Send out specimens with Reactive results to [facility] for confirmation.Order the HIV antibody detection and differentiation: #[id number] Nucleated red blood cell per centageOrdered By: Dada Caballero on 02-17-2025 Nucleated RBC/100 WBC (Bld) [Ratio] 0 % 0-5 [facility] Phosphoruson 02-17-2025 Phosphate [Mass/Vol] 2.9 mg/dL Normal 2.7-4.5 [facility] Comment on above: Order Comment: ABIDA Figueredo PREVIOUS SPECIMEN REJECTED DUE TO QNS. 05/23/24 0647 Bonilla Mejía Performed By: #### L 501.9520, L501.5200, L500.4050, L501.2300, L501.4700 #### [facility] [address] [place], [address] Platelet countOrdered By: Nazario Caballero on 02-17-2025 Platelets (Bld) [#/Vol] 239 10*3/uL Normal 150-450 [facility] Comment on above: Performed By: #### L 500.2500, L501.9100, L505.5000, L100.0100 #### [facility] [address] [place], [address] Potassium measurement (mass/ volume)Ordered By: Dada Caballero on 02-17-2025 Potassium (Unsp spec) [Mass/Vol] 3.4 mmol/L 3.3-5.1 [facility] Serum creatinine measurement (mass/volume)Ordered By: Dada Caballero on 02-17-2025 Creatinine [Mass/Vol] 0.91 mg/dL Normal 0.70-1.20 [facility] Comment on above: Performed By: #### L 500.2500, L501.9100, L505.5000, L100.0100 #### [facility] [address] [place], [address] Serum glucose measurement (m ass/volume)Ordered By: Dada Caballero on 02-17-2025 Glucose [Mass/Vol] 128 mg/dL High 70-99 [facility] Comment on above: Performed By: #### L 500.2500, L501.9100, L505.5000, L100.0100 #### [facility] [address] [place], [address] Serum hepatitis B virus surf kwasi antibody detectionOrdered By: Sujey Stacy on 02-17-2025 HBV surface Ab Ql (S) Non-Reactive [facility] Comment on above: <8.5 mIU/mL: Non-[place] ctive8.5<= x <11.5 mIU/mL: Indeterminate>=11.5 mIU/mL: Reactive Non Reactive: Inconsistent with immunity less than <10 mIU/mL Reactive: Consistent with immunity greater than or equal to 10 mIU/mL Serum or plasma calcium maggie urement (mass/volume)Ordered By: Dada Caballero on 02-17-2025 Calcium [Mass/Vol] 9.4 mg/dL Normal 7.6-11.0 [facility] Comment on above: Performed By: #### L 500.2500, L501.9100, L505.5000, L100.0100 #### [facility] [address] [place], [address] Serum or plasma ethanol maggie urement (mass/volume)Ordered By: Dada Caballero on 02-17-2025 Ethanol [Mass/Vol] 239.0 mg/dL High <10.1 [facility] Comment on above: This test is for med ical purposes only. The legal definition of intoxication varies according to local law. Serum or plasma urea nitroge n measurement (mass/volume)Ordered By: Dada Caballero on 02-17-2025 Urea nitrogen [Mass/Vol] 7 mg/dL Normal 4-19 [facility] Comment on above: Performed By: #### L 500.2500, L501.9100, L505.5000, L100.0100 #### [facility] [address] [place], [address] Sodium levelOrdered By: Margie Caballero on 02-17-2025 Sodium [Moles/Vol] 142 mmol/L Normal 133-145 [facility] Comment on above: Performed By: #### L 500.2500, L501.9100, L505.5000, L100.0100 #### [facility] [address] [place], [address] Syphilis Antibodieson 2024 Syphilis Abs Non-Reactive Normal Nonreactive [facility] Comment on above: Order Comment: ABIDA Figueredo PREVIOUS SPECIMEN REJECTED DUE TO QNS. 05/23/24 0647 Bonilla Mejía Performed By: #### L 501.9520, L501.5200, L500.4050, L501.2300, L501.4700 #### [facility] [address] [place], [address] Urine Drug Screen (VISTA)on 02-17-2025 AMPHETAMINES Normal <1000 ng/mL [facility] Comment on above: Result Comment: EPI ENT DISCHARGED 02/19/25, NO SPECIMEN COLLECTED Performed By: #### L 500.2500, L501.9100, L505.5000, L100.0100 #### [facility] [address] [place], [address] BARBITIURATES Normal < 200 ng/mL [facility] Comment on above: Result Comment: EPI ENT DISCHARGED 02/19/25, NO SPECIMEN COLLECTED Performed By: #### L 500.2500, L501.9100, L505.5000, L100.0100 #### [facility] [address] [place], [address] BENZODIAZIPINE Normal < 200 ng/mL [facility] Comment on above: Result Comment: EPI ENT DISCHARGED 02/19/25, NO SPECIMEN COLLECTED Performed By: #### L 500.2500, L501.9100, L505.5000, L100.0100 #### [facility] [address] [place], [address] BUP Ur Drug Scr Normal < 200 ng/mL [facility] Comment on above: Result Comment: EPI ENT DISCHARGED 02/19/25, NO SPECIMEN COLLECTED Performed By: #### L 500.2500, L501.9100, L505.5000, L100.0100 #### [facility] [address] [place], [address] COCAINE Normal < 300 ng/mL [facility] Comment on above: Result Comment: EPI ENT DISCHARGED 02/19/25, NO SPECIMEN COLLECTED Performed By: #### L 500.2500, L501.9100, L505.5000, L100.0100 #### [facility] Laboratory [address] [place], [address] Fentanyl Normal <5 ng/mL [facility] Comment on above: Result Comment: EPI ENT DISCHARGED 02/19/25, NO SPECIMEN COLLECTED Performed By: #### L 500.2500, L501.9100, L505.5000, L100.0100 #### [facility] Laboratory [address] [place], [address] METHADONE Normal < 300 ng/mL [facility] Comment on above: Result Comment: EPI ENT DISCHARGED 02/19/25, NO SPECIMEN COLLECTED Performed By: #### L 500.2500, L501.9100, L505.5000, L100.0100 #### [facility] Laboratory [address] [place], [address] OPIATES Normal < 300 ng/mL [facility] Comment on above: Result Comment: EPI ENT DISCHARGED 02/19/25, NO SPECIMEN COLLECTED Performed By: #### L 500.2500, L501.9100, L505.5000, L100.0100 #### [facility] Laboratory [address] [place], [address] OXYCODONE Normal < 100 ng/mL [facility] Comment on above: Result Comment: EPI ENT DISCHARGED 02/19/25, NO SPECIMEN COLLECTED Performed By: #### L 500.2500, L501.9100, L505.5000, L100.0100 #### [facility] Laboratory [address] [place], [address] PCP Normal < 25 ng/mL [facility] Comment on above: Result Comment: EPI ENT DISCHARGED 02/19/25, NO SPECIMEN COLLECTED Performed By: #### L 500.2500, L501.9100, L505.5000, L100.0100 #### [facility] Laboratory [address] [place], [address] THC Normal < 50 ng/mL [facility] Comment on above: Result Comment: EPI ENT DISCHARGED 02/19/25, NO SPECIMEN COLLECTED Performed By: #### L 500.2500, L501.9100, L505.5000, L100.0100 #### [facility] [address] [place], [address] White blood cell (WBC) count Ordered By: Dada Caballero on 02-17-2025 WBC (Bld) [#/Vol] 7.0 10*3/uL Normal 4.4-11.0 [facility] Comment on above: Performed By: #### L 500.2500, L501.9100, L505.5000, L100.0100 #### [facility] Laboratory [address] [place], [address] CBC W/Diff, Automatedon - Absolute Lymph 2.08 X10 3/uL Normal 0.83-4.51 [facility] Comment on above: Performed By: #### L 501.9520, L501.5200, L500.4050, L501.2300, L501.4700 #### [facility] Laboratory [address] [place], [address] Absolute Neut 2.4 X10 3/uL Normal 2.0-7.7 [facility] Comment on above: Performed By: #### L 501.9520, L501.5200, L500.4050, L501.2300, L501.4700 #### [facility] Laboratory [address] [place], [address] Basophils/100 WBC (Bld) 0.6 % Normal 0-1 [facility] Comment on above: Performed By: #### L 501.9520, L501.5200, L500.4050, L501.2300, L501.4700 #### [facility] Laboratory [address] [place], [address] Eosinophils/100 WBC (Bld) 1.4 % Normal 0-5 [facility] Comment on above: Performed By: #### L 501.9520, L501.5200, L500.4050, L501.2300, L501.4700 #### [facility] Laboratory [address] [place], [address] Erythrocyte distribution width (RBC) [Ratio] 14.1 % Normal 11.6-14.6 [facility] Comment on above: Performed By: #### L 501.9520, L501.5200, L500.4050, L501.2300, L501.4700 #### [facility] Laboratory [address] [place], [address] Hematocrit (Bld) [Volume fraction] 39.0 % Low 40-54 [facility] Comment on above: Performed By: #### L 501.9520, L501.5200, L500.4050, L501.2300, L501.4700 #### [facility] Laboratory [address] [place], [address] Hemoglobin (Bld) [Mass/Vol] 13.1 g/dL Normal 13.0-16.5 [facility] Comment on above: Performed By: #### L 501.9520, L501.5200, L500.4050, L501.2300, L501.4700 #### [facility] [address] [place], [address] IG% 0.400 Normal 0.0-0.9 [facility] Comment on above: Result Comment: IG% - Immature Granulocytes (promyelocytes, myelocytes and metamyelocytes) > 1% indicates that a LEFT SHIFT is Present. Performed By: #### L 501.9520, L501.5200, L500.4050, L501.2300, L501.4700 #### [facility] [address] [place], [address] Lymphocytes/100 WBC (Bld) 41.2 % High 19-41 [facility] Comment on above: Performed By: #### L 501.9520, L501.5200, L500.4050, L501.2300, L501.4700 #### [facility] [address] [place], [address] MCH (RBC) [Entitic mass] 31.8 pg Normal 27.0-32.0 [facility] Comment on above: Performed By: #### L 501.9520, L501.5200, L500.4050, L501.2300, L501.4700 #### [facility] [address] [place], [address] MCHC (RBC) [Mass/Vol] 33.6 g/dL Normal 32-36 [facility] Comment on above: Performed By: #### L 501.9520, L501.5200, L500.4050, L501.2300, L501.4700 #### [facility] [address] [place], [address] MCV (RBC) [Entitic vol] 94.7 fL High 80-94 [facility] Comment on above: Performed By: #### L 501.9520, L501.5200, L500.4050, L501.2300, L501.4700 #### [facility] [address] [place], [address] Monocytes/100 WBC (Bld) 9.5 % Normal 0-10 [facility] Comment on above: Performed By: #### L 501.9520, L501.5200, L500.4050, L501.2300, L501.4700 #### [facility] [address] [place], [address] Neutrophils/100 WBC (Bld) 46.9 % Low 47-70 [facility] Comment on above: Performed By: #### L 501.9520, L501.5200, L500.4050, L501.2300, L501.4700 #### [facility] Laboratory [address] [place], [address] Nucleated RBC (Bld) [#/Vol] 0 10*3/uL Normal 0-5 [facility] Comment on above: Performed By: #### L 501.9520, L501.5200, L500.4050, L501.2300, L501.4700 #### [facility] [address] [place], [address] Platelet mean volume (Bld) [Entitic vol] 11.5 fL Normal 6.2-12.0 [facility] Comment on above: Performed By: #### L 501.9520, L501.5200, L500.4050, L501.2300, L501.4700 #### [facility] [address] [place], [address] Platelets (Bld) [#/Vol] 153 10*3/uL Normal 150-450 [facility] Comment on above: Performed By: #### L 501.9520, L501.5200, L500.4050, L501.2300, L501.4700 #### [facility] [address] [place], [address] RBC (Bld) [#/Vol] 4.12 10*6/uL Low 4.6-6.2 [facility] Comment on above: Performed By: #### L 501.9520, L501.5200, L500.4050, L501.2300, L501.4700 #### [facility] Laboratory [address] [place], [address] RDW SD 49.0 fl High 35.1-43.9 [facility] Comment on above: Performed By: #### L 501.9520, L501.5200, L500.4050, L501.2300, L501.4700 #### [facility] [address] [place], [address] WBC (Bld) [#/Vol] 5.1 10*3/uL Normal 4.4-11.0 [facility] Comment on above: Performed By: #### L 501.9520, L501.5200, L500.4050, L501.2300, L501.4700 #### [facility] Laboratory [address] [place], [address] PLT EST SLT DEC Normal ADEQ [facility] Comment on above: Performed By: #### L 501.9520, L501.5200, L500.4050, L501.2300, L501.4700 #### [facility] [address] [place], [address] SMEAR COMMENT SCANNED Normal [facility] Comment on above: Performed By: #### L 501.9520, L501.5200, L500.4050, L501.2300, L501.4700 #### [facility] [address] [place], [address] Comprehensive Metabolic Prof ilon 07-17-2024 Albumin [Mass/Vol] 4.0 g/dL Normal 3.2-5.0 [facility] Comment on above: Performed By: #### L 501.9520, L501.5200, L500.4050, L501.2300, L501.4700 #### [facility] [address] [place] [place], [address] Albumin/Globulin [Mass ratio] 1.1 {ratio} Normal 0.9-2.4 [facility] Comment on above: Performed By: #### L 501.9520, L501.5200, L500.4050, L501.2300, L501.4700 #### [facility] Laboratory [address] [place], [address] ALK P 101 U/L Normal 45-117 [facility] Comment on above: Performed By: #### L 501.9520, L501.5200, L500.4050, L501.2300, L501.4700 #### [facility] [address] [place], [address] ALT [Catalytic activity/Vol] 25 U/L Normal 16-61 [facility] Comment on above: Performed By: #### L 501.9520, L501.5200, L500.4050, L501.2300, L501.4700 #### [facility] Laboratory [address] [place], [address] AST [Catalytic activity/Vol] 31 U/L Normal 15-37 [facility] Comment on above: Result Comment: Slig ht Hemolysis, Result may be falsely increased. Performed By: #### L 501.9520, L501.5200, L500.4050, L501.2300, L501.4700 #### [facility] [address] [place], [address] Bilirubin [Mass/Vol] 0.70 mg/dL Normal 0.20-1.00 [facility] Comment on above: Result Comment: For patients on eltrombopag therapy, use of Dimension [place] TBIL is not recommended. Performed By: #### L 501.9520, L501.5200, L500.4050, L501.2300, L501.4700 #### [facility] [address] [place], [address] BUN/CRE 12.5 RATIO Normal 10-20 [facility] Comment on above: Performed By: #### L 501.9520, L501.5200, L500.4050, L501.2300, L501.4700 #### [facility] [address] [place], [address] CA,Total 9.2 mg/dL Normal 8.5-10.1 [facility] Comment on above: Performed By: #### L 501.9520, L501.5200, L500.4050, L501.2300, L501.4700 #### [facility] [address] [place], [address] Chloride [Moles/Vol] 108 mmol/L High 98-107 [facility] Comment on above: Performed By: #### L 501.9520, L501.5200, L500.4050, L501.2300, L501.4700 #### [facility] [address] [place], [address] CO2 [Moles/Vol] 25.0 mmol/L Normal 21.0-32.0 [facility] Comment on above: Performed By: #### L 501.9520, L501.5200, L500.4050, L501.2300, L501.4700 #### [facility] Laboratory [address] [place], [address] Creatinine [Mass/Vol] 0.88 mg/dL Normal 0.70-1.30 [facility] Comment on above: Result Comment: The validity of the calculated GFR GFRAA in patients over 70 years has not been determined. Clinical correlation is essential. Performed By: #### L 501.9520, L501.5200, L500.4050, L501.2300, L501.4700 #### [facility] [address] [place], [address] ECRCL 103.49 ml/min Normal [facility] Comment on above: Performed By: #### L 501.9520, L501.5200, L500.4050, L501.2300, L501.4700 #### [facility] [address] [place], [address] EST GFR - AA 127 mL/min Normal >60 [facility] Comment on above: Result Comment: Afri can Filipino GFR Calc Performed By: #### L 501.9520, L501.5200, L500.4050, L501.2300, L501.4700 #### [facility] Laboratory [address] [place], [address] GAP 8 Normal 5-15 [facility] Comment on above: Performed By: #### L 501.9520, L501.5200, L500.4050, L501.2300, L501.4700 #### [facility] [address] [place], [address] GFR/1.73 sq M.predicted among non-blacks MDRD (S/P/Bld) [Vol rate/Area] 105 mL/min/{1.73_m2} Normal >60 [facility] Comment on above: Result Comment: Non- GFR Calc Performed By: #### L 501.9520, L501.5200, L500.4050, L501.2300, L501.4700 #### [facility] [address] [place], [address] Globulin (S) [Mass/Vol] 3.5 g/dL Normal 2.2-4.2 [facility] Comment on above: Performed By: #### L 501.9520, L501.5200, L500.4050, L501.2300, L501.4700 #### [facility] [address] [place], [address] Glucose [Mass/Vol] 83 mg/dL Normal 74-106 [facility] Comment on above: Performed By: #### L 501.9520, L501.5200, L500.4050, L501.2300, L501.4700 #### [facility] [address] [place], [address] Potassium [Moles/Vol] 3.5 mmol/L Normal 3.5-5.1 [facility] Comment on above: Result Comment: Slig ht Hemolysis, Result may be falsely increased. Performed By: #### L 501.9520, L501.5200, L500.4050, L501.2300, L501.4700 #### [facility] [address] [place], [address] Sodium [Moles/Vol] 140 mmol/L Normal 136-145 [facility] Comment on above: Performed By: #### L 501.9520, L501.5200, L500.4050, L501.2300, L501.4700 #### [facility] [address] [place], [address] T PROT 7.5 g/dL Normal 6.4-8.2 [facility] Comment on above: Performed By: #### L 501.9520, L501.5200, L500.4050, L501.2300, L501.4700 #### [facility] Laboratory [address] [place], [address] Urea nitrogen [Mass/Vol] 11 mg/dL Normal 7-18 [facility] Comment on above: Performed By: #### L 501.9520, L501.5200, L500.4050, L501.2300, L501.4700 #### [facility] Laboratory [address] [place], [address] Emergency Department Summary on 07-17-2024 Emergency Department Summary [facility] Medical Records Department [address] [facility] [place] [address] Emergency Department Summary 07/17/24 MR#: [id number] Acct: [id number] Name: YU YOUNGER Rep #: [id number] : 1990 34 From: Jhonathan Brooke DO [...] after having a episode of alcoholic pancreatitis. [facility] Medical History Hx of renal calculi Pancreatitis Denies previous medical history Home Medications ???Medication ???Instructions ???Recorded ???Last Taken ???Type methadone 10 mg tablet 100 mg PO DAILY 05/22/24 06/20/24 History ondansetron HCl 8 mg tablet 8 mg PO Q8H PRN PRN Nausea 7 days 06/23/24 Unknown Rx #21 tabs Allergy/AdvReac Type Severity Reaction Status Date / Time levetiracetam (From [facility]) Allergy HIVES Verified 07/16/24 21:27 Family History [...] U Can (more content not included)... Normal [facility] H AND P Exam - Hospitaliston 07-17-2024 H&P Exam - Hospitalist [facility] Medical Records Department [address] [place] [address] H P Exam - Hospitalist 07/17/24 0100 MR#: [id number] Acct: [id number] Name: YU YOUNGER Rep #: [id number] : 1990 34 From: Phoenix Ramsey DO PCP: Care Physician,No Primary Status:ADM IN [place] [facility] [id number] HPI - General General Date of Admission: [...] history of renal calculi who presents to [facility] ER requesting opiate/polysubstance detox. Mr. Younger reports [...] is expected to extend beyond 2 midnights. [facility] Medical History (Updated 07/17/24 @ 01:52 by [...] Reaction Status Date / Time levetiracetam (From [facility]) Allergy HIVES Verified 07/16/24 21:27 Family History [...] normal respiratory (more content not included)... Normal [facility] Alcohol, Blood (Medical)-Ser umon 07-16-2024 SERUM ETOH 4.0 mg/dL Normal [facility] Comment on above: Result Comment: The serum:whole blood ethanol ratio is approximately 1.14 and varies slightly with hematocrit. Medical Alcohol reference interval and critical value in non-tolerant individuals; 50 - 100 Impairment 100 Intoxication 100 - 250 Severe Poisoning 250 - 400 Deep/possible fatal coma Performed By: #### L 501.7642, L501.5200, L500.4050, L501.2300, L501.4700 #### [facility] Laboratory [address] [place], [address] Urine Drug Screen (VISTA)on 07-16-2024 AMPHETAMINES Negative Normal <1000 ng/mL [facility] Comment on above: Performed By: #### L 501.9520, L501.5200, L500.4050, L501.2300, L501.4700 #### [facility] Laboratory [address] [place], [address] BARBITIURATES Positive Abnormal < 200 ng/mL [facility] Comment on above: Performed By: #### L 501.9520, L501.5200, L500.4050, L501.2300, L501.4700 #### [facility] Laboratory [address] [place], [address] BENZODIAZIPINE Negative Normal < 200 ng/mL [facility] Comment on above: Performed By: #### L 501.9520, L501.5200, L500.4050, L501.2300, L501.4700 #### [facility] [address] [place], [address] COCAINE Positive Abnormal < 300 ng/mL [facility] Comment on above: Performed By: #### L 501.9520, L501.5200, L500.4050, L501.2300, L501.4700 #### [facility] [address] [place], [address] ECSTACY Positive Abnormal < 500 ng/mL [facility] Comment on above: Performed By: #### L 501.9520, L501.5200, L500.4050, L501.2300, L501.4700 #### [facility] [address] [place], [address] METHADONE Positive Abnormal < 300 ng/mL [facility] Comment on above: Performed By: #### L 501.9520, L501.5200, L500.4050, L501.2300, L501.4700 #### [facility] Laboratory [address] [place], [address] OPIATES Positive Abnormal < 300 ng/mL [facility] Comment on above: Performed By: #### L 501.9520, L501.5200, L500.4050, L501.2300, L501.4700 #### [facility] [address] [place], [address] PCP Negative Normal < 25 ng/mL [facility] Comment on above: Performed By: #### L 501.9520, L501.5200, L500.4050, L501.2300, L501.4700 #### [facility] [address] [place], [address] THC Positive Abnormal < 50 ng/mL [facility] Comment on above: Performed By: #### L 501.9520, L501.5200, L500.4050, L501.2300, L501.4700 #### [facility] [address] [place], [address] VISTA UDS PH 5 Normal [facility] Comment on above: Performed By: #### L 501.9520, L501.5200, L500.4050, L501.2300, L501.4700 #### [facility] [address] [place], [address] Discharge Instructionon Discharge Instruction [facility] Medical Records Department [address] [place] [address] Instructions for Home/Discharge Instructions 06/23/24 1043 MR#: [id number] Acct: [id number] Name: YU YOUNGER Rep #: [id number] : 1990 33 From: Majo Terrazas MD [...] MD; No Primary Care Physician Signed Normal [facility] Alcohol, Blood (Medical)-Ser umon 06-20-2024 SERUM ETOH 271.0 mg/dL Normal [facility] Comment on above: Result Comment: The serum:whole blood ethanol ratio is approximately 1.14 and varies slightly with hematocrit. Medical Alcohol reference interval and critical value in non-tolerant individuals; 50 - 100 Impairment 100 Intoxication 100 - 250 Severe Poisoning 250 - 400 Deep/possible fatal coma Performed By: #### L 501.9415, L501.5200, L500.4050, L501.2300, L501.4700 #### [facility] [address] [place], [address] CBC W/Diff, Automatedon Absolute Lymph 1.41 X10 3/uL Normal 0.83-4.51 [facility] Comment on above: Performed By: #### L 501.9520, L501.5200, L500.4050, L501.2300, L501.4700 #### [facility] [address] [place], [address] Absolute Neut 2.1 X10 3/uL Normal 2.0-7.7 [facility] Comment on above: Performed By: #### L 501.9520, L501.5200, L500.4050, L501.2300, L501.4700 #### [facility] Laboratory [address] [place], [address] Basophils/100 WBC (Bld) 0.5 % Normal 0-1 [facility] Comment on above: Performed By: #### L 501.9520, L501.5200, L500.4050, L501.2300, L501.4700 #### [facility] [address] [place], [address] Eosinophils/100 WBC (Bld) 0.5 % Normal 0-5 [facility] Comment on above: Performed By: #### L 501.9520, L501.5200, L500.4050, L501.2300, L501.4700 #### [facility] [address] [place], [address] Erythrocyte distribution width (RBC) [Ratio] 15.0 % High 11.6-14.6 [facility] Comment on above: Performed By: #### L 501.9520, L501.5200, L500.4050, L501.2300, L501.4700 #### [facility] [address] [place], [address] Hematocrit (Bld) [Volume fraction] 41.5 % Normal 40-54 [facility] Comment on above: Performed By: #### L 501.9520, L501.5200, L500.4050, L501.2300, L501.4700 #### [facility] [address] [place], [address] Hemoglobin (Bld) [Mass/Vol] 13.8 g/dL Normal 13.0-16.5 [facility] Comment on above: Performed By: #### L 501.9520, L501.5200, L500.4050, L501.2300, L501.4700 #### [facility] [address] [place], [address] IG% 0.300 Normal 0.0-0.9 [facility] Comment on above: Result Comment: IG% - Immature Granulocytes (promyelocytes, myelocytes and metamyelocytes) > 1% indicates that a LEFT SHIFT is Present. Performed By: #### L 501.9520, L501.5200, L500.4050, L501.2300, L501.4700 #### [facility] [address] [place], [address] Lymphocytes/100 WBC (Bld) 35.3 % Normal 19-41 [facility] Comment on above: Performed By: #### L 501.9520, L501.5200, L500.4050, L501.2300, L501.4700 #### [facility] [address] [place], [address] MCH (RBC) [Entitic mass] 31.8 pg Normal 27.0-32.0 [facility] Comment on above: Performed By: #### L 501.9520, L501.5200, L500.4050, L501.2300, L501.4700 #### [facility] [address] [place], [address] MCHC (RBC) [Mass/Vol] 33.3 g/dL Normal 32-36 [facility] Comment on above: Performed By: #### L 501.9520, L501.5200, L500.4050, L501.2300, L501.4700 #### [facility] [address] [place], [address] MCV (RBC) [Entitic vol] 95.6 fL High 80-94 [facility] Comment on above: Performed By: #### L 501.9520, L501.5200, L500.4050, L501.2300, L501.4700 #### [facility] [address] [place], [address] Monocytes/100 WBC (Bld) 11.0 % High 0-10 [facility] Comment on above: Performed By: #### L 501.9520, L501.5200, L500.4050, L501.2300, L501.4700 #### [facility] [address] [place], [address] Neutrophils/100 WBC (Bld) 52.4 % Normal 47-70 [facility] Comment on above: Performed By: #### L 501.9520, L501.5200, L500.4050, L501.2300, L501.4700 #### [facility] [address] [place], [address] Nucleated RBC (Bld) [#/Vol] 0 10*3/uL Normal 0-5 [facility] Comment on above: Performed By: #### L 501.9520, L501.5200, L500.4050, L501.2300, L501.4700 #### [facility] [address] [place], [address] Platelet mean volume (Bld) [Entitic vol] 11.6 fL Normal 6.2-12.0 [facility] Comment on above: Performed By: #### L 501.9520, L501.5200, L500.4050, L501.2300, L501.4700 #### [facility] [address] [place], [address] Platelets (Bld) [#/Vol] 97 10*3/uL Low 150-450 [facility] Comment on above: Performed By: #### L 501.9520, L501.5200, L500.4050, L501.2300, L501.4700 #### [facility] [address] [place], [address] RBC (Bld) [#/Vol] 4.34 10*6/uL Low 4.6-6.2 [facility] Comment on above: Performed By: #### L 501.9520, L501.5200, L500.4050, L501.2300, L501.4700 #### [facility] [address] [place], [address] RDW SD 53.5 fl High 35.1-43.9 [facility] Comment on above: Performed By: #### L 501.9520, L501.5200, L500.4050, L501.2300, L501.4700 #### [facility] [address] [place], [address] WBC (Bld) [#/Vol] 4.0 10*3/uL Low 4.4-11.0 [facility] Comment on above: Performed By: #### L 501.9520, L501.5200, L500.4050, L501.2300, L501.4700 #### [facility] [address] [place], [address] Absolute Neut Normal 2.0-7.7 [facility] Comment on above: Result Comment: Jolly méndez via OM: Ordered Performed By: #### L 501.9520, L501.5200, L500.4050, L501.2300, L501.4700 #### [facility] [address] [place], [address] HCT Normal 40-54 [facility] Comment on above: Result Comment: Canc elled via OM: MD Ordered Performed By: #### L 501.9520, L501.5200, L500.4050, L501.2300, L501.4700 #### [facility] [address] [place], [address] HGB Normal 13.0-16.5 [facility] Comment on above: Result Comment: Canc elled via OM: MD Ordered Performed By: #### L 501.9520, L501.5200, L500.4050, L501.2300, L501.4700 #### [facility] [address] [place], [address] MCH Normal 27.0-32.0 [facility] Comment on above: Result Comment: Canc elled via OM: MD Ordered Performed By: #### L 501.9520, L501.5200, L500.4050, L501.2300, L501.4700 #### [facility] [address] [place], [address] MCHC Normal 32-36 [facility] Comment on above: Result Comment: Canc elled via OM: MD Ordered Performed By: #### L 501.9520, L501.5200, L500.4050, L501.2300, L501.4700 #### [facility] [address] [place], [address] MCV Normal 80-94 [facility] Comment on above: Result Comment: Canc elled via OM: MD Ordered Performed By: #### L 501.9520, L501.5200, L500.4050, L501.2300, L501.4700 #### [facility] [address] [place], [address] NEUT% Normal 47-70 [facility] Comment on above: Result Comment: Canc elled via OM: MD Ordered Performed By: #### L 501.9520, L501.5200, L500.4050, L501.2300, L501.4700 #### [facility] [address] [place], [address] PLT Normal 150-450 [facility] Comment on above: Result Comment: Canc elled via OM: MD Ordered Performed By: #### L 501.9520, L501.5200, L500.4050, L501.2300, L501.4700 #### [facility] [address] [place], [address] RBC Normal 4.6-6.2 [facility] Comment on above: Result Comment: Canc elled via OM: MD Ordered Performed By: #### L 501.9520, L501.5200, L500.4050, L501.2300, L501.4700 #### [facility] [address] [place], [address] RDW CV Normal 11.6-14.6 [facility] Comment on above: Result Comment: Canc elled via OM: MD Ordered Performed By: #### L 501.9520, L501.5200, L500.4050, L501.2300, L501.4700 #### [facility] [address] [place], [address] RDW SD Normal 35.1-43.9 [facility] Comment on above: Result Comment: Canc elled via OM: MD Ordered Performed By: #### L 501.9520, L501.5200, L500.4050, L501.2300, L501.4700 #### [facility] [address] [place], [address] WBC Normal 4.4-11.0 [facility] Comment on above: Result Comment: Canc elled via OM: MD Ordered Performed By: #### L 501.9520, L501.5200, L500.4050, L501.2300, L501.4700 #### [facility] [address] [place], [address] Comprehensive Metabolic Prof ilon 06-20-2024 Albumin [Mass/Vol] 3.4 g/dL Normal 3.2-5.0 [facility] Comment on above: Performed By: #### L 501.9520, L501.5200, L500.4050, L501.2300, L501.4700 #### [facility] [address] [place], [address] Albumin/Globulin [Mass ratio] 0.7 {ratio} Low 0.9-2.4 [facility] Comment on above: Performed By: #### L 501.9520, L501.5200, L500.4050, L501.2300, L501.4700 #### [facility] [address] [place], [address] ALK P 229 U/L High 45-117 [facility] Comment on above: Performed By: #### L 501.9520, L501.5200, L500.4050, L501.2300, L501.4700 #### [facility] [address] [place], [address] ALT [Catalytic activity/Vol] 130 U/L High 16-61 [facility] Comment on above: Performed By: #### L 501.9520, L501.5200, L500.4050, L501.2300, L501.4700 #### [facility] [address] [place], [address] AST [Catalytic activity/Vol] 430 U/L High 15-37 [facility] Comment on above: Result Comment: Mode rate Hemolysis, Result may be falsely increased. Performed By: #### L 501.9520, L501.5200, L500.4050, L501.2300, L501.4700 #### [facility] [address] [place], [address] Bilirubin [Mass/Vol] 2.00 mg/dL High 0.20-1.00 [facility] Comment on above: Result Comment: For patients on eltrombopag therapy, use of Dimension [place] TBIL is not recommended. Performed By: #### L 501.9520, L501.5200, L500.4050, L501.2300, L501.4700 #### [facility] [address] [place], [address] BUN/CRE 7.0 RATIO Low 10-20 [facility] Comment on above: Performed By: #### L 501.9520, L501.5200, L500.4050, L501.2300, L501.4700 #### [facility] [address] [place], [address] CA,Total 9.2 mg/dL Normal 8.5-10.1 [facility] Comment on above: Performed By: #### L 501.9520, L501.5200, L500.4050, L501.2300, L501.4700 #### [facility] [address] [place], [address] Chloride [Moles/Vol] 101 mmol/L Normal 98-107 [facility] Comment on above: Performed By: #### L 501.9520, L501.5200, L500.4050, L501.2300, L501.4700 #### [facility] [address] [place], [address] CO2 [Moles/Vol] 25.0 mmol/L Normal 21.0-32.0 [facility] Comment on above: Performed By: #### L 501.9520, L501.5200, L500.4050, L501.2300, L501.4700 #### [facility] [address] [place], [address] Creatinine [Mass/Vol] 0.85 mg/dL Normal 0.70-1.30 [facility] Comment on above: Result Comment: The validity of the calculated GFR GFRAA in patients over 70 years has not been determined. Clinical correlation is essential. Performed By: #### L 501.9520, L501.5200, L500.4050, L501.2300, L501.4700 #### [facility] [address] [place], [address] ECRCL 116.18 ml/min Normal [facility] Comment on above: Performed By: #### L 501.9520, L501.5200, L500.4050, L501.2300, L501.4700 #### [facility] [address] [facility] [address] EST GFR - AA 132 mL/min Normal >60 [facility] Comment on above: Result Comment: Afri can Filipino GFR Calc Performed By: #### L 501.9520, L501.5200, L500.4050, L501.2300, L501.4700 #### [facility] [address] [place], [address] GAP 10 Normal 5-15 [facility] Comment on above: Performed By: #### L 501.9520, L501.5200, L500.4050, L501.2300, L501.4700 #### [facility] [address] [place], [address] GFR/1.73 sq M.predicted among non-blacks MDRD (S/P/Bld) [Vol rate/Area] 109 mL/min/{1.73_m2} Normal >60 [facility] Comment on above: Result Comment: Non- GFR Calc Performed By: #### L 501.9520, L501.5200, L500.4050, L501.2300, L501.4700 #### [facility] [address] [place], [address] Globulin (S) [Mass/Vol] 4.7 g/dL High 2.2-4.2 [facility] Comment on above: Performed By: #### L 501.9520, L501.5200, L500.4050, L501.2300, L501.4700 #### [facility] [address] [place], [address] Glucose [Mass/Vol] 102 mg/dL Normal 74-106 [facility] Comment on above: Result Comment: Fast ing Glucose result from 100 to 125 mg/dL suggests IMPAIRED HOMEOSTASIS per A.D.A. criteria. Performed By: #### L 501.9520, L501.5200, L500.4050, L501.2300, L501.4700 #### [facility] [address] [place], [address] Potassium [Moles/Vol] 3.8 mmol/L Normal 3.5-5.1 [facility] Comment on above: Result Comment: Mode rate Hemolysis, Result may be falsely increased. Performed By: #### L 501.9520, L501.5200, L500.4050, L501.2300, L501.4700 #### [facility] [address] [place], [address] Sodium [Moles/Vol] 136 mmol/L Normal 136-145 [facility] Comment on above: Performed By: #### L 501.9520, L501.5200, L500.4050, L501.2300, L501.4700 #### [facility] [address] [place], [address] T PROT 8.1 g/dL Normal 6.4-8.2 [facility] Comment on above: Performed By: #### L 501.9520, L501.5200, L500.4050, L501.2300, L501.4700 #### [facility] [address] [place], [address] Urea nitrogen [Mass/Vol] 6 mg/dL Low 7-18 [facility] Comment on above: Performed By: #### L 501.9520, L501.5200, L500.4050, L501.2300, L501.4700 #### [facility] [address] [place], [address] Emergency Department Summary on 06-20-2024 Emergency Department Summary [facility] Medical Records Department [address] [place] [address] Emergency Department Summary 06/20/24 MR#: [id number] Acct: [id number] Name: YU YOUNGER Rep #: [id number] : 1990 33 From: Enrique Schwartz MD PCP: Care Physician,No Primary Status:ADM IN Location: [place] [address] HPI History of Present Illness Chief Complaint: [...] Prior similar symptoms: Yes Recent Illness[facility] Medical History Hx of renal calculi Pancreatitis Denies previous medical history Home Medications ???Medication ???Instructions ???Recorded ???Last Taken ???Type methadone 10 mg tablet 100 mg PO DAILY 05/22/24 06/20/24 History Allergy/AdvReac Type Severity Reaction Status Date / Time levetiracetam (From [facility]) Allergy HIVES Verified 06/20/24 11:48 Surgical History [...] intact b (more content not included)... Normal [facility] H AND P Exam - [facility]iston 06-20-2024 H&P Exam - Hospitalist [facility] Medical Records Department [address] [place] [address] H P Exam - Hospitalist 06/20/24 1436 MR#: [id number] Acct: [id number] Name: YU YOUNGER Rep #: [id number] : 1990 33 From: David Mcguire MD PCP: Care Physician,No Primary Status:ADM IN Location[place] [facility] [place] [id number] HPI - General General Date of Admission: [...] cannot be readmitted for another 60 days. [facility] Medical History Hx of renal calculi Pancreatitis Denies previous medical history Home Medications ???Medication ???Instructions ???Recorded ???Last Taken ???Type methadone 10 mg tablet 100 mg PO DAILY 05/22/24 06/20/24 History Allergy/AdvReac Type Severity Reaction Status Date / Time levetiracetam (From [facility]) Allergy HIVES Verified 06/20/24 11:48 Family History [...] % (Auto) 52.4, Lymph % (Auto) 35.3, Callahan % (Auto) 11.0 H, Eos % (Auto) [...] requesting detox/eleva (more content not included)... Normal [facility] Urine Drug Screen (VISTA)on 06-20-2024 AMPHETAMINES Negative Normal <1000 ng/mL [facility] Comment on above: Performed By: #### L 501.9520, L501.5200, L500.4050, L501.2300, L501.4700 #### [facility] [address] [place], [address] BARBITIURATES Positive Abnormal < 200 ng/mL [facility] Comment on above: Performed By: #### L 501.9520, L501.5200, L500.4050, L501.2300, L501.4700 #### [facility] [address] [place], [address] BENZODIAZIPINE Negative Normal < 200 ng/mL [facility] Comment on above: Performed By: #### L 501.9520, L501.5200, L500.4050, L501.2300, L501.4700 #### [facility] [address] [place], [address] COCAINE Negative Normal < 300 ng/mL [facility] Comment on above: Performed By: #### L 501.9520, L501.5200, L500.4050, L501.2300, L501.4700 #### [facility] [address] [place], [address] ECSTACY Negative Normal < 500 ng/mL [facility] Comment on above: Performed By: #### L 501.9520, L501.5200, L500.4050, L501.2300, L501.4700 #### [facility] [address] [place], [address] METHADONE Positive Abnormal < 300 ng/mL [facility] Comment on above: Performed By: #### L 501.9520, L501.5200, L500.4050, L501.2300, L501.4700 #### [facility] [address] [place], [address] OPIATES Negative Normal < 300 ng/mL [facility] Comment on above: Performed By: #### L 501.9520, L501.5200, L500.4050, L501.2300, L501.4700 #### [facility] [address] [place], [address] PCP Negative Normal < 25 ng/mL [facility] Comment on above: Performed By: #### L 501.9520, L501.5200, L500.4050, L501.2300, L501.4700 #### [facility] [address] [place], [address] THC Positive Abnormal < 50 ng/mL [facility] Comment on above: Performed By: #### L 501.9520, L501.5200, L500.4050, L501.2300, L501.4700 #### [facility] [address] [place], [address] VISTA UDS PH 6 Normal [facility] Comment on above: Performed By: #### L 501.9520, L501.5200, L500.4050, L501.2300, L501.4700 #### [facility] [address] [place], [address] AMPHETAMINES Normal <1000 ng/mL [facility] Comment on above: Result Comment: DUPL ICATE ORDER. Performed By: #### L 501.9520, L501.5200, L500.4050, L501.2300, L501.4700 #### [facility] [address] [place], [address] BARBITIURATES Normal < 200 ng/mL [facility] Comment on above: Result Comment: DUPL ICATE ORDER. Performed By: #### L 501.9520, L501.5200, L500.4050, L501.2300, L501.4700 #### [facility] [address] [place], [address] BENZODIAZIPINE Normal < 200 ng/mL [facility] Comment on above: Result Comment: DUPL ICATE ORDER. Performed By: #### L 501.9520, L501.5200, L500.4050, L501.2300, L501.4700 #### [facility] [address] [place], [place], [facility] COCAINE Normal < 300 ng/mL [facility] Comment on above: Result Comment: DUPL ICATE ORDER. Performed By: #### L 501.9520, L501.5200, L500.4050, L501.2300, L501.4700 #### [facility] [address] [place], [place], [facility] DRUG CONFIRM Normal [facility] Comment on above: Result Comment: DUPL ICATE ORDER. Performed By: #### L 501.9520, L501.5200, L500.4050, L501.2300, L501.4700 #### [facility] [address] [place], [facility] ECSTACY Normal < 500 ng/mL [facility] Comment on above: Result Comment: DUPL ICATE ORDER. Performed By: #### L 501.9520, L501.5200, L500.4050, L501.2300, L501.4700 #### [facility] [address] [place], [facility] METHADONE Normal < 300 ng/mL [facility] Comment on above: Result Comment: DUPL ICATE ORDER. Performed By: #### L 501.9520, L501.5200, L500.4050, L501.2300, L501.4700 #### [facility] [address] [place], [address] OPIATES Normal < 300 ng/mL [facility] Comment on above: Result Comment: DUPL ICATE ORDER. Performed By: #### L 501.9520, L501.5200, L500.4050, L501.2300, L501.4700 #### [facility] [address] [place], [address] PCP Normal < 25 ng/mL [facility] Comment on above: Result Comment: DUPL ICATE ORDER. Performed By: #### L 501.9520, L501.5200, L500.4050, L501.2300, L501.4700 #### [facility] [address] [place], [address] THC Normal < 50 ng/mL [facility] Comment on above: Result Comment: DUPL ICATE ORDER. Performed By: #### L 501.9520, L501.5200, L500.4050, L501.2300, L501.4700 #### [facility] [address] [place], [address] VISTA UDS PH Normal [facility] Comment on above: Result Comment: DUPL ICATE ORDER. Performed By: #### L 501.9520, L501.5200, L500.4050, L501.2300, L501.4700 #### [facility] [address] [place], [address] CBC W/Diff, Automatedon 12-0 9-2023 Absolute Lymph 0.96 X10 3/uL Normal 0.83-4.51 [facility] Comment on above: Performed By: #### L 100.0100 #### [facility] [address] [place], [address] Absolute Neut 2.0 X10 3/uL Normal 2.0-7.7 [facility] Comment on above: Performed By: #### L 100.0100 #### [facility] [address] [place], [address] Basophils/100 WBC (Bld) 0.3 % Normal 0-1 [facility] Comment on above: Performed By: #### L 100.0100 #### [facility] [address] [place], [address] Eosinophils/100 WBC (Bld) 1.1 % Normal 0-5 [facility] Comment on above: Performed By: #### L 100.0100 #### [facility] [address] [place], [address] Erythrocyte distribution width (RBC) [Ratio] 14.5 % Normal 11.6-14.6 [facility] Comment on above: Performed By: #### L 100.0100 #### [facility] [address] [place], [address] Hematocrit (Bld) [Volume fraction] 44.7 % Normal 40-54 [facility] Comment on above: Performed By: #### L 100.0100 #### [facility] [address] [place], [address] Hemoglobin (Bld) [Mass/Vol] 14.5 g/dL Normal 13.0-16.5 [facility] Comment on above: Performed By: #### L 100.0100 #### [facility] [address] [place], [address] IG% 0.300 Normal 0.0-0.9 [facility] Comment on above: Result Comment: IG% - Immature Granulocytes (promyelocytes, myelocytes and metamyelocytes) > 1% indicates that a LEFT SHIFT is Present. Performed By: #### L 100.0100 #### [facility] [address] [place], [address] Lymphocytes/100 WBC (Bld) 27.4 % Normal 19-41 [facility] Comment on above: Performed By: #### L 100.0100 #### [facility] [address] [place], [address] MCH (RBC) [Entitic mass] 31.6 pg Normal 27.0-32.0 [facility] Comment on above: Performed By: #### L 100.0100 #### [facility] [address] [place], [address] MCHC (RBC) [Mass/Vol] 32.4 g/dL Normal 32-36 [facility] Comment on above: Performed By: #### L 100.0100 #### [facility] [address] [place], [address] MCV (RBC) [Entitic vol] 97.4 fL High 80-94 [facility] Comment on above: Performed By: #### L 100.0100 #### [facility] [address] [place], [address] Monocytes/100 WBC (Bld) 13.7 % High 0-10 [facility] Comment on above: Performed By: #### L 100.0100 #### [facility] [address] [place], [address] Neutrophils/100 WBC (Bld) 57.2 % Normal 47-70 [facility] Comment on above: Performed By: #### L 100.0100 #### [facility] [address] [place], [address] Nucleated RBC (Bld) [#/Vol] 0 10*3/uL Normal 0-5 [facility] Comment on above: Performed By: #### L 100.0100 #### [facility] [address] [place], [address] Platelet mean volume (Bld) [Entitic vol] 9.8 fL Normal 6.2-12.0 [facility] Comment on above: Performed By: #### L 100.0100 #### [facility] [address] [place], [address] Platelets (Bld) [#/Vol] 95 10*3/uL Low 150-450 [facility] Comment on above: Performed By: #### L 100.0100 #### [facility] [address] [place], [address] RBC (Bld) [#/Vol] 4.59 10*6/uL Low 4.6-6.2 [facility] Comment on above: Performed By: #### L 100.0100 #### [facility] [address] [place], [address] RDW SD 50.4 fl High 35.1-43.9 [facility] Comment on above: Performed By: #### L 100.0100 #### [facility] [address] [place], [address] WBC (Bld) [#/Vol] 3.5 10*3/uL Low 4.4-11.0 [facility] Comment on above: Performed By: #### L 100.0100 #### [facility] [address] [place], [address] CBC W/Diff, Automatedon - PLT EST MOD DEC Normal ADEQ [facility] Comment on above: Performed By: #### L 501.9520, L501.5200, L500.4050, L501.2300, L501.4700 #### [facility] [address] [place], [address] SMEAR COMMENT SCANNED Normal [facility] Comment on above: Performed By: #### L 501.9520, L501.5200, L500.4050, L501.2300, L501.4700 #### [facility] [address] [place], [address] Comprehensive Metabolic Prof ilon 05-24-2024 Albumin [Mass/Vol] 3.1 g/dL Low 3.2-5.0 [facility] Comment on above: Performed By: #### L 501.9520, L501.5200, L500.4050, L501.2300, L501.4700 #### [facility] [address] [place], [address] Albumin/Globulin [Mass ratio] 0.8 {ratio} Low 0.9-2.4 [facility] Comment on above: Performed By: #### L 501.9520, L501.5200, L500.4050, L501.2300, L501.4700 #### [facility] [address] [place], [address] ALK P 211 U/L High 45-117 [facility] Comment on above: Performed By: #### L 501.9520, L501.5200, L500.4050, L501.2300, L501.4700 #### [facility] [address] [place], [address] ALT [Catalytic activity/Vol] 92 U/L High 16-61 [facility] Comment on above: Performed By: #### L 501.9520, L501.5200, L500.4050, L501.2300, L501.4700 #### [facility] [address] [place], [address] AST [Catalytic activity/Vol] 209 U/L High 15-37 [facility] Comment on above: Performed By: #### L 501.9520, L501.5200, L500.4050, L501.2300, L501.4700 #### [facility] [address] [place], [address] Bilirubin [Mass/Vol] 1.70 mg/dL High 0.20-1.00 [facility] Comment on above: Result Comment: For patients on eltrombopag therapy, use of Dimension [place] TBIL is not recommended. Performed By: #### L 501.9520, L501.5200, L500.4050, L501.2300, L501.4700 #### [facility] [address] [place], [address] BUN/CRE 9.1 RATIO Low 10-20 [facility] Comment on above: Performed By: #### L 501.9520, L501.5200, L500.4050, L501.2300, L501.4700 #### [facility] [address] [place], [address] CA,Total 8.9 mg/dL Normal 8.5-10.1 [facility] Comment on above: Performed By: #### L 501.9520, L501.5200, L500.4050, L501.2300, L501.4700 #### [facility] [address] [place], [address] Chloride [Moles/Vol] 105 mmol/L Normal 98-107 [facility] Comment on above: Performed By: #### L 501.9520, L501.5200, L500.4050, L501.2300, L501.4700 #### [facility] [address] [place], [address] CO2 [Moles/Vol] 26.0 mmol/L Normal 21.0-32.0 [facility] Comment on above: Performed By: #### L [id number], L501.5200, L500.4050, L501.2300, L501.4700 #### [facility] [address] [place], [address] Creatinine [Mass/Vol] 0.77 mg/dL Normal 0.70-1.30 [facility] Comment on above: Result Comment: The validity of the calculated GFR GFRAA in patients over 70 years has not been determined. Clinical correlation is essential. Performed By: #### L 501.9520, L501.5200, L500.4050, L501.2300, L501.4700 #### [facility] [address] [place], [address] ECRCL 132.01 ml/min Normal [facility] Comment on above: Performed By: #### L 501.9520, L501.5200, L500.4050, L501.2300, L501.4700 #### [facility] [address] [place], [address] EST GFR - AA 149 mL/min Normal >60 [facility] Comment on above: Result Comment: Afri can Filipino GFR Calc Performed By: #### L 501.9520, L501.5200, L500.4050, L501.2300, L501.4700 #### [facility] [address] [place], [address] GAP 7 Normal 5-15 [facility] Comment on above: Performed By: #### L 501.9520, L501.5200, L500.4050, L501.2300, L501.4700 #### [facility] [address] [place], [address] GFR/1.73 sq M.predicted among non-blacks MDRD (S/P/Bld) [Vol rate/Area] 123 mL/min/{1.73_m2} Normal >60 [facility] Comment on above: Result Comment: Non- GFR Calc Performed By: #### L 501.9520, L501.5200, L500.4050, L501.2300, L501.4700 #### [facility] [address] [place], [address] Globulin (S) [Mass/Vol] 4.0 g/dL Normal 2.2-4.2 [facility] Comment on above: Performed By: #### L 501.9520, L501.5200, L500.4050, L501.2300, L501.4700 #### [facility] [address] [place], [address] Glucose [Mass/Vol] 52 mg/dL Low 74-106 [facility] Comment on above: Performed By: #### L 501.9520, L501.5200, L500.4050, L501.2300, L501.4700 #### [facility] [address] [place], [address] Potassium [Moles/Vol] 4.2 mmol/L Normal 3.5-5.1 [facility] Comment on above: Performed By: #### L 501.9520, L501.5200, L500.4050, L501.2300, L501.4700 #### [facility] [address] [place], [address] Sodium [Moles/Vol] 138 mmol/L Normal 136-145 [facility] Comment on above: Performed By: #### L 501.9520, L501.5200, L500.4050, L501.2300, L501.4700 #### [facility] [address] [place], [address] T PROT 7.1 g/dL Normal 6.4-8.2 [facility] Comment on above: Performed By: #### L 501.9520, L501.5200, L500.4050, L501.2300, L501.4700 #### [facility] [address] [place], [address] Urea nitrogen [Mass/Vol] 7 mg/dL Normal 7-18 [facility] Comment on above: Performed By: #### L [id number], L501.5200, L500.4050, L501.2300, L501.4700 #### [facility] [address] [place], [address] Magnesiumon 05-24-2024 Magnesium [Mass/Vol] 1.7 mg/dL Normal 1.6-2.6 [facility] Comment on above: Performed By: #### L 501.9520, L501.5200, L500.4050, L501.2300, L501.4700 #### [facility] [address] [place], [address] Phosphoruson 05-24-2024 Phosphate [Mass/Vol] 2.5 mg/dL Normal 2.5-4.9 [facility] Comment on above: Performed By: #### L 501.9520, L501.5200, L500.4050, L501.2300, L501.4700 #### [facility] [address] [place], [address] Bilirubin, Directon 05-23-20 Bilirubin.direct [Mass/Vol] 0.56 mg/dL High 0.00-0.30 [facility] Comment on above: Order Comment: REDRA W. PREVIOUS SPECIMEN REJECTED DUE TO QNS. 05/23/24 0647 Bonilla Moore. Performed By: #### L 501.9520, L501.5200, L500.4050, L501.2300, L501.4700 #### [facility] [address] [place], [address] CBC W/Diff, Automatedon 12 Absolute Neut Normal 2.0-7.7 [facility] Comment on above: Order Comment: REDRA W. PREVIOUS SPECIMEN REJECTED DUE TO QNS. 05/23/24 0647 Bonilla Moore. Result Comment: NOT NEEDED BY DEJA MCCLURE MR Performed By: #### L 501.9520, L501.5200, L500.4050, L501.2300, L501.4700 #### [facility] [address] [place], [address] HCT Normal 40-54 [facility] Comment on above: Order Comment: REDRA W. PREVIOUS SPECIMEN REJECTED DUE TO QNS. 05/23/2447 Bonilla Moore. Result Comment: NOT NEEDED BY REN, JUST USE MR Performed By: #### L 501.9520, L501.5200, L500.4050, L501.2300, L501.4700 #### [facility] [address] [place], [address] HGB Normal 13.0-16.5 [facility] Comment on above: Order Comment: REDRA W. PREVIOUS SPECIMEN REJECTED DUE TO QNS. 05/23/2447 Bonilla R Moore. Result Comment: NOT NEEDED BY REN, JUST USE MR Performed By: #### L 501.9520, L501.5200, L500.4050, L501.2300, L501.4700 #### [facility] [address] [place], [address] MCH Normal 27.0-32.0 [facility] Comment on above: Order Comment: REDRA W. PREVIOUS SPECIMEN REJECTED DUE TO QNS. 05/23/24 06 Bonilla R Moore. Result Comment: NOT NEEDED BY REN, JUST USE MR Performed By: #### L 501.9520, L501.5200, L500.4050, L501.2300, L501.4700 #### [facility] [address] [place], [address] MCHC Normal 32-36 [facility] Comment on above: Order Comment: REDRA W. PREVIOUS SPECIMEN REJECTED DUE TO QNS. 05/23/2447 Bonilla R Moore. Result Comment: NOT NEEDED BY REN, JUST USE MR Performed By: #### L 501.9520, L501.5200, L500.4050, L501.2300, L501.4700 #### [facility] [address] [place], [address] MCV Normal 80-94 [facility] Comment on above: Order Comment: REDRA W. PREVIOUS SPECIMEN REJECTED DUE TO QNS. 05/23/2447 Bonilla R Moore. Result Comment: NOT NEEDED BY EAFFOLTER, JUST USE MR Performed By: #### L 501.9520, L501.5200, L500.4050, L501.2300, L501.4700 #### [facility] [address] [place], [address] NEUT% Normal 47-70 [facility] Comment on above: Order Comment: REDRA W. PREVIOUS SPECIMEN REJECTED DUE TO QNS. 05/23/2447 Bonilla R Moore. Result Comment: NOT NEEDED BY REN, JUST USE MR Performed By: #### L 501.9520, L501.5200, L500.4050, L501.2300, L501.4700 #### [facility] [address] [place], [address] PLT Normal 150-450 [facility] Comment on above: Order Comment: REDRA W. PREVIOUS SPECIMEN REJECTED DUE TO QNS. 05/23/24 Bonilla R Moore. Result Comment: [facility]ED [facility], JUST USE MR Performed By: #### L 501.9520, L501.5200, L500.4050, L501.2300, L501.4700 #### [facility] [address] [place], [address] RBC Normal 4.6-6.2 [facility] Comment on above: Order Comment: REDRA W. PREVIOUS SPECIMEN REJECTED DUE TO QNS. 05/23/2447 Bonilla R Moore. Result Comment: NOT NEEDED BY REN, JUST USE MR Performed By: #### L 501.9520, L501.5200, L500.4050, L501.2300, L501.4700 #### [facility] [address] [place], [address] RDW CV Normal 11.6-14.6 [facility] Comment on above: Order Comment: REDRA W. PREVIOUS SPECIMEN REJECTED DUE TO QNS. 05/23/2447 Bonilla R Moore. Result Comment: NOT NEEDED BY REN, JUST USE MR Performed By: #### L 501.9520, L501.5200, L500.4050, L501.2300, L501.4700 #### [facility] [address] [place], [address] RDW SD Normal 35.1-43.9 [facility] Comment on above: Order Comment: REDRA W. PREVIOUS SPECIMEN REJECTED DUE TO QNS. 05/23/2447 Bonilla R Moore. Result Comment: NOT NEEDED BY REN, JUST USE MR Performed By: #### L 501.9520, L501.5200, L500.4050, L501.2300, L501.4700 #### [facility] [address] [place], [address] WBC Normal 4.4-11.0 [facility] Comment on above: Order Comment: REDRA W. PREVIOUS SPECIMEN REJECTED DUE TO QNS. 05/23/24 Bonilla R Moore. Result Comment: [facility], JUST USE MR Performed By: #### L 501.9520, L501.5200, L500.4050, L501.2300, L501.4700 #### [facility] [address] [place], [address] Absolute Lymph 1.59 X10 3/uL Normal 0.83-4.51 [facility] Comment on above: Order Comment: REDRA W. PREVIOUS SPECIMEN REJECTED DUE TO QNS. 05/23/2447 Bonilla R Moore. Performed By: #### L 501.9520, L501.5200, L500.4050, L501.2300, L501.4700 #### [facility] [address] [place], [address] Absolute Neut 1.6 X10 3/uL Low 2.0-7.7 [facility] Comment on above: Order Comment: REDRA W. PREVIOUS SPECIMEN REJECTED DUE TO QNS. 05/23/2447 Bonilla R Moore. Performed By: #### L 501.9520, L501.5200, L500.4050, L501.2300, L501.4700 #### [facility] [address] [place], [address] Basophils/100 WBC (Bld) 0.3 % Normal 0-1 [facility] Comment on above: Order Comment: REDRA W. PREVIOUS SPECIMEN REJECTED DUE TO QNS. 05/23/2447 Bonilla Vital Moore. Performed By: #### L 501.9520, L501.5200, L500.4050, L501.2300, L501.4700 #### [facility] [address] [place], [address] Eosinophils/100 WBC (Bld) 0.3 % Normal 0-5 [facility] Comment on above: Order Comment: REDRA W. PREVIOUS SPECIMEN REJECTED DUE TO QNS. 05/23/2447 Bonilla Vital Moore. Performed By: #### L 501.9520, L501.5200, L500.4050, L501.2300, L501.4700 #### [facility] [address] [place], [address] Erythrocyte distribution width (RBC) [Ratio] 14.4 % Normal 11.6-14.6 [facility] Comment on above: Order Comment: REDRA W. PREVIOUS SPECIMEN REJECTED DUE TO QNS. 05/23/2447 Bonilla R Moore. Performed By: #### L 501.9520, L501.5200, L500.4050, L501.2300, L501.4700 #### [facility] [address] [place], [address] Hematocrit (Bld) [Volume fraction] 41.2 % Normal 40-54 [facility] Comment on above: Order Comment: REDRA W. PREVIOUS SPECIMEN REJECTED DUE TO QNS. 05/23/2447 Bonilla R Moore. Performed By: #### L 501.9520, L501.5200, L500.4050, L501.2300, L501.4700 #### [facility] [address] [place], [address] Hemoglobin (Bld) [Mass/Vol] 13.4 g/dL Normal 13.0-16.5 [facility] Comment on above: Order Comment: REDRA W. PREVIOUS SPECIMEN REJECTED DUE TO QNS. 05/23/24 Bonilla R Moore. Performed By: #### L 501.9520, L501.5200, L500.4050, L501.2300, L501.4700 #### [facility] [address] [place], [address] IG% 0.300 Normal 0.0-0.9 [facility] Comment on above: Order Comment: REDRA W. PREVIOUS SPECIMEN REJECTED DUE TO QNS. 05/23/24 Bonilla R Moore. Result Comment: IG% - Immature Granulocytes (promyelocytes, myelocytes and metamyelocytes) > 1% indicates that a LEFT SHIFT is Present. Performed By: #### L 501.9520, L501.5200, L500.4050, L501.2300, L501.4700 #### [facility] [address] [place], [address] Lymphocytes/100 WBC (Bld) 43.8 % High 19-41 [facility] Comment on above: Order Comment: REDRA W. PREVIOUS SPECIMEN REJECTED DUE TO QNS. 05/23/2447 Bonilla R Moore. Performed By: #### L 501.9520, L501.5200, L500.4050, L501.2300, L501.4700 #### [facility] [address] [place], [address] MCH (RBC) [Entitic mass] 31.5 pg Normal 27.0-32.0 [facility] Comment on above: Order Comment: REDRA W. PREVIOUS SPECIMEN REJECTED DUE TO QNS. 05/23/24 Bonilla R Moore. Performed By: #### L 501.9520, L501.5200, L500.4050, L501.2300, L501.4700 #### [facility] [address] [place], [address] MCHC (RBC) [Mass/Vol] 32.5 g/dL Normal 32-36 [facility] Comment on above: Order Comment: REDRA W. PREVIOUS SPECIMEN REJECTED DUE TO QNS. 05/23/2447 Bonilla R Moore. Performed By: #### L 501.9520, L501.5200, L500.4050, L501.2300, L501.4700 #### [facility] [address] [place], [address] MCV (RBC) [Entitic vol] 96.7 fL High 80-94 [facility] Comment on above: Order Comment: REDRA W. PREVIOUS SPECIMEN REJECTED DUE TO QNS. 05/23/2447 Bonilla R Moore. Performed By: #### L 501.9520, L501.5200, L500.4050, L501.2300, L501.4700 #### [facility] [address] [place], [address] Monocytes/100 WBC (Bld) 12.1 % High 0-10 [facility] Comment on above: Order Comment: REDRA W. PREVIOUS SPECIMEN REJECTED DUE TO QNS. 05/23/2447 Bonilla R Moore. Performed By: #### L 501.9520, L501.5200, L500.4050, L501.2300, L501.4700 #### [facility] [address] [place], [address] Neutrophils/100 WBC (Bld) 43.2 % Low 47-70 [facility] Comment on above: Order Comment: REDRA W. PREVIOUS SPECIMEN REJECTED DUE TO QNS. 05/23/2447 Bonilla R Moore. Performed By: #### L 501.9520, L501.5200, L500.4050, L501.2300, L501.4700 #### [facility] [address] [place], [address] Nucleated RBC (Bld) [#/Vol] 0 10*3/uL Normal 0-5 [facility] Comment on above: Order Comment: REDRA W. PREVIOUS SPECIMEN REJECTED DUE TO QNS. 05/23/24646 Bonilla R Moore. Performed By: #### L 501.9520, L501.5200, L500.4050, L501.2300, L501.4700 #### [facility] [address] [place], [address] Platelet mean volume (Bld) [Entitic vol] 9.2 fL Normal 6.2-12.0 [facility] Comment on above: Order Comment: REDRA W. PREVIOUS SPECIMEN REJECTED DUE TO QNS. 05/23/2447 Bonilla R Moore. Performed By: #### L 501.9520, L501.5200, L500.4050, L501.2300, L501.4700 #### [facility] [address] [place], [address] Platelets (Bld) [#/Vol] 114 10*3/uL Low 150-450 [facility] Comment on above: Order Comment: REDRA W. PREVIOUS SPECIMEN REJECTED DUE TO QNS. 05/23/2447 Bonilla R Moore. Performed By: #### L 501.9520, L501.5200, L500.4050, L501.2300, L501.4700 #### [facility] [address] [place], [address] RBC (Bld) [#/Vol] 4.26 10*6/uL Low 4.6-6.2 [facility] Comment on above: Order Comment: REDRA W. PREVIOUS SPECIMEN REJECTED DUE TO QNS. 05/23/2447 Bonilla R Moore. Performed By: #### L 501.9520, L501.5200, L500.4050, L501.2300, L501.4700 #### [facility] [address] [place], [address] RDW SD 50.4 fl High 35.1-43.9 [facility] Comment on above: Order Comment: REDRA W. PREVIOUS SPECIMEN REJECTED DUE TO QNS. 05/23/2447 Bonilla R Moore. Performed By: #### L 501.9520, L501.5200, L500.4050, L501.2300, L501.4700 #### [facility] [address] [place], [address] WBC (Bld) [#/Vol] 3.6 10*3/uL Low 4.4-11.0 [facility] Comment on above: Order Comment: REDRA W. PREVIOUS SPECIMEN REJECTED DUE TO QNS. 05/23/2447 Bonilla R Moore. Performed By: #### L 501.9520, L501.5200, L500.4050, L501.2300, L501.4700 #### [facility] [address] [place], [address] Absolute Neut Normal 2.0-7.7 [facility] Comment on above: Result Comment: This specimen has been REJECTED due to Laboratory criteria: Quanity Not Sufficient. [facility]VOJ[facility] has been notified of need of recollection. 05/23/24641 Bonilla R Moore Performed By: #### L 501.9520, L501.5200, L500.4050, L501.2300, L501.4700 #### [facility] [address] [place], [address] HCT Normal 40-54 [facility] Comment on above: Result Comment: This specimen has been REJECTED due to Laboratory criteria: Quanity Not Sufficient. [facility] need [facility]. 05/23/24641 Bonilla R Moore Performed By: #### L 501.9520, L501.5200, L500.4050, L501.2300, L501.4700 #### [facility] [address] [place], [address] HGB Normal 13.0-16.5 [facility] Comment on above: Result Comment: This specimen has been REJECTED due to Laboratory criteria: Quanity Not Sufficient. JVOJTUSH has been notified of need of recollection. 05/23/2442 Bonilla R Moore Performed By: #### L 501.9520, L501.5200, L500.4050, L501.2300, L501.4700 #### [facility] [address] [place], [address] MCH Normal 27.0-32.0 [facility] Comment on above: Result Comment: This specimen has been REJECTED due to Laboratory criteria: Quanity Not Sufficient. JVOJTUSH has been notified of need of recollection. 05/23/2442 Bonilla R Moore Performed By: #### L 501.9520, L501.5200, L500.4050, L501.2300, L501.4700 #### [facility] [address] [place], [address] MCHC Normal 32-36 [facility] Comment on above: Result Comment: This specimen has been REJECTED due to Laboratory criteria: Quanity Not Sufficient. JVOJTUSH has been notified of need of recollection. 05/23/2442 Bonilla R Moore Performed By: #### L 501.9520, L501.5200, L500.4050, L501.2300, L501.4700 #### [facility] [address] [place], [address] MCV Normal 80-94 [facility] Comment on above: Result Comment: This specimen has been REJECTED due to Laboratory criteria: Quanity Not Sufficient. JVOJTUSH has been notified of need of recollection. 05/23/2442 Bonilla R Moore Performed By: #### L 501.9520, L501.5200, L500.4050, L501.2300, L501.4700 #### [facility] [address] [place], [address] NEUT% Normal 47-70 [facility] Comment on above: Result Comment: This specimen has been REJECTED due to Laboratory criteria: Quanity Not Sufficient. [facility] need of recollection. 05/23/24641 Bonilla R Moore Performed By: #### L 501.9520, L501.5200, L500.4050, L501.2300, L501.4700 #### [facility] [address] [place], [address] PLT Normal 150-450 [facility] Comment on above: Result Comment: This specimen has been REJECTED due to Laboratory criteria: Quanity Not Sufficient. [facility] has been notified of need of recollection. 05/23/24641 Bonilla R Moore Performed By: #### L 501.9520, L501.5200, L500.4050, L501.2300, L501.4700 #### [facility] [address] [place], [address] RBC Normal 4.6-6.2 [facility] Comment on above: Result Comment: This specimen has been REJECTED due to Laboratory criteria: Quanity Not Sufficient. [facility] has been notified of need of recollection. 05/23/24641 Bonilla R Moore Performed By: #### L 501.9520, L501.5200, L500.4050, L501.2300, L501.4700 #### [facility] [address] [place], [address] RDW CV Normal 11.6-14.6 [facility] Comment on above: Result Comment: This specimen has been REJECTED due to Laboratory criteria: Quanity Not Sufficient. [facility] has been notified of need of recollection. 05/23/24641 Bonilla R Moore Performed By: #### L 501.9520, L501.5200, L500.4050, L501.2300, L501.4700 #### [facility] [address] [place], [address] RDW SD Normal 35.1-43.9 [facility] Comment on above: Result Comment: This specimen has been REJECTED due to Laboratory criteria: Quanity Not Sufficient. FRAN has been notified of need of recollection. 05/23/24641 Bonilla R Moore Performed By: #### L 501.9520, L501.5200, L500.4050, L501.2300, L501.4700 #### [facility] [address] [place], [address] WBC Normal 4.4-11.0 [facility] Comment on above: Result Comment: This specimen has been REJECTED due to Laboratory criteria: Quanity Not Sufficient. FRAN has been notified of need of recollection. 05/23/2442 Bonilla R Moore Performed By: #### L 501.9520, L501.5200, L500.4050, L501.2300, L501.4700 #### [facility] [address] [place], [address] Comprehensive Metabolic Prof ilon 05-23-2024 Albumin [Mass/Vol] 3.3 g/dL Normal 3.2-5.0 [facility] Comment on above: Order Comment: RED W. PREVIOUS SPECIMEN REJECTED DUE TO QNS. 05/23/2447 Bonilla R Moore. Performed By: #### L 501.9520, L501.5200, L500.4050, L501.2300, L501.4700 #### [facility] [address] [place], [address] Albumin/Globulin [Mass ratio] 0.9 {ratio} Normal 0.9-2.4 [facility] Comment on above: Order Comment: BAIDA W. PREVIOUS SPECIMEN REJECTED DUE TO QNS. 05/23/2447 Bonilla R Moore. Performed By: #### L 501.9520, L501.5200, L500.4050, L501.2300, L501.4700 #### [facility] [address] [place], [address] ALK P 190 U/L High 45-117 [facility] Comment on above: Order Comment: REDRA W. PREVIOUS SPECIMEN REJECTED DUE TO QNS. 05/23/2447 Bonilla R Moore. Performed By: #### L 501.9520, L501.5200, L500.4050, L501.2300, L501.4700 #### [facility] [address] [place], [address] ALT [Catalytic activity/Vol] 98 U/L High 16-61 [facility] Comment on above: Order Comment: REDRA W. PREVIOUS SPECIMEN REJECTED DUE TO QNS. 05/23/2447 Bonilla R Moore. Performed By: #### L 501.9520, L501.5200, L500.4050, L501.2300, L501.4700 #### [facility] [address] [place], [address] AST [Catalytic activity/Vol] 203 U/L High 15-37 [facility] Comment on above: Order Comment: REDRA W. PREVIOUS SPECIMEN REJECTED DUE TO QNS. 05/23/2447 Bonilla R Moore. Performed By: #### L 501.9520, L501.5200, L500.4050, L501.2300, L501.4700 #### [facility] [address] [place], [address] Bilirubin [Mass/Vol] 1.00 mg/dL Normal 0.20-1.00 [facility] Comment on above: Order Comment: REDRA W. PREVIOUS SPECIMEN REJECTED DUE TO QNS. 05/23/2447 Bonilla R Moore. Result Comment: For patients on eltrombopag therapy, use of Dimension [place] TBIL is not recommended. Performed By: #### L 501.9520, L501.5200, L500.4050, L501.2300, L501.4700 #### [facility] [address] [place], [address] BUN/CRE 9.1 RATIO Low 10-20 [facility] Comment on above: Order Comment: REDRA W. PREVIOUS SPECIMEN REJECTED DUE TO QNS. 05/23/2447 Bonilla R Moore. Performed By: #### L 501.9520, L501.5200, L500.4050, L501.2300, L501.4700 #### [facility] [address] [place], [address] CA,Total 8.4 mg/dL Low 8.5-10.1 [facility] Comment on above: Order Comment: REDRA W. PREVIOUS SPECIMEN REJECTED DUE TO QNS. 05/23/2447 Bonilla R Moore. Performed By: #### L 501.9520, L501.5200, L500.4050, L501.2300, L501.4700 #### [facility] [address] [place], [address] Chloride [Moles/Vol] 110 mmol/L High 98-107 [facility] Comment on above: Order Comment: REDRA W. PREVIOUS SPECIMEN REJECTED DUE TO QNS. 05/23/2447 Bonilla R Moore. Performed By: #### L 501.9520, L501.5200, L500.4050, L501.2300, L501.4700 #### [facility] [address] [place], [address] CO2 [Moles/Vol] 25.0 mmol/L Normal 21.0-32.0 [facility] Comment on above: Order Comment: REDRA W. PREVIOUS SPECIMEN REJECTED DUE TO QNS. 05/23/2447 Bonilla R Moore. Performed By: #### L 501.9520, L501.5200, L500.4050, L501.2300, L501.4700 #### [facility] [address] [place], [address] Creatinine [Mass/Vol] 0.77 mg/dL Normal 0.70-1.30 [facility] Comment on above: Order Comment: REDRA W. PREVIOUS SPECIMEN REJECTED DUE TO QNS. 05/23/2447 Bonilla R Moore. Result Comment: The validity of the calculated GFR GFRAA in patients over 70 years has not been determined. Clinical correlation is essential. Performed By: #### L 501.9520, L501.5200, L500.4050, L501.2300, L501.4700 #### [facility] [address] [place], [address] ECRCL 131.43 ml/min Normal [facility] Comment on above: Order Comment: REDRA W. PREVIOUS SPECIMEN REJECTED DUE TO QNS. 05/23/24 Bonilla R Moore. Performed By: #### L 501.9520, L501.5200, L500.4050, L501.2300, L501.4700 #### [facility] [address] [place], [address] EST GFR - AA 149 mL/min Normal >60 [facility] Comment on above: Order Comment: REDRA W. PREVIOUS SPECIMEN REJECTED DUE TO QNS. 05/23/2447 Bonilla R Moore. Result Comment: Afri can Filipino GFR Calc Performed By: #### L 501.9520, L501.5200, L500.4050, L501.2300, L501.4700 #### [facility] [address] [place], [address] GAP 7 Normal 5-15 [facility] Comment on above: Order Comment: REDRA W. PREVIOUS SPECIMEN REJECTED DUE TO QNS. 05/23/2447 Bonilla R Moore. Performed By: #### L 501.9520, L501.5200, L500.4050, L501.2300, L501.4700 #### [facility] [address] [place], [address] GFR/1.73 sq M.predicted among non-blacks MDRD (S/P/Bld) [Vol rate/Area] 123 mL/min/{1.73_m2} Normal >60 [facility] Comment on above: Order Comment: ABIDA W. PREVIOUS SPECIMEN REJECTED DUE TO QNS. 05/23/2447 Bonilla R Moore. Result Comment: Non- GFR Calc Performed By: #### L 501.9520, L501.5200, L500.4050, L501.2300, L501.4700 #### [facility] [address] [place], [address] Globulin (S) [Mass/Vol] 3.7 g/dL Normal 2.2-4.2 [facility] Comment on above: Order Comment: ABIDA W. PREVIOUS SPECIMEN REJECTED DUE TO QNS. 05/23/24 47 Bonilla R Moore. Performed By: #### L 501.9520, L501.5200, L500.4050, L501.2300, L501.4700 #### [facility] [address] [place], [address] Glucose [Mass/Vol] 79 mg/dL Normal 74-106 [facility] Comment on above: Order Comment: ABIDA W. PREVIOUS SPECIMEN REJECTED DUE TO QNS. 05/23/2447 Bonilla R Moore. Performed By: #### L 501.9520, L501.5200, L500.4050, L501.2300, L501.4700 #### [facility] [address] [place], [address] Potassium [Moles/Vol] 3.5 mmol/L Normal 3.5-5.1 [facility] Comment on above: Order Comment: RED W. PREVIOUS SPECIMEN REJECTED DUE TO QNS. 05/23/2447 Bonilla R Moore. Performed By: #### L 501.9520, L501.5200, L500.4050, L501.2300, L501.4700 #### [facility] [address] [place], [address] Sodium [Moles/Vol] 142 mmol/L Normal 136-145 [facility] Comment on above: Order Comment: REDRA W. PREVIOUS SPECIMEN REJECTED DUE TO QNS. 05/23/2447 Bonilla R Moore. Performed By: #### L 501.9520, L501.5200, L500.4050, L501.2300, L501.4700 #### [facility] [address] [place], [address] T PROT 7.0 g/dL Normal 6.4-8.2 [facility] Comment on above: Order Comment: REDRA W. PREVIOUS SPECIMEN REJECTED DUE TO QNS. 05/23/24646 Bonilla R Moore. Performed By: #### L 501.9520, L501.5200, L500.4050, L501.2300, L501.4700 #### [facility] [address] [place], [address] Urea nitrogen [Mass/Vol] 7 mg/dL Normal 7-18 [facility] Comment on above: Order Comment: REDRA W. PREVIOUS SPECIMEN REJECTED DUE TO QNS. 05/23/24646 Bonilla R Moore. Performed By: #### L 501.9520, L501.5200, L500.4050, L501.2300, L501.4700 #### [facility] [address] [place], [address] BUN Normal 7-18 [facility] Comment on above: Result Comment: This specimen has been REJECTED due to Laboratory criteria: Quanity Not Sufficient. FRAN has been notified of need of recollection. 05/23/24645 Bonilla R Moore Performed By: #### L 501.9520, L501.5200, L500.4050, L501.2300, L501.4700 #### [facility] [address] [place], [address] BUN/CRE Normal 10-20 [facility] Comment on above: Result Comment: This specimen has been REJECTED due to Laboratory criteria: Quanity Not Sufficient. [email or web address] has been notified of need of recollection. 05/23/24645 Bonilla R Moore Performed By: #### L 501.9520, L501.5200, L500.4050, L501.2300, L501.4700 #### [facility] [address] [place], [address] CA,Total Normal 8.5-10.1 [facility] Comment on above: Result Comment: This specimen has been REJECTED due to Laboratory criteria: Quanity Not Sufficient. [facility] 05/23/2446 Bonilla R Moore Performed By: #### L 501.9520, L501.5200, L500.4050, L501.2300, L501.4700 #### [facility] [address] [place], [address] CL Normal 98-107 [facility] Comment on above: Result Comment: This specimen has been REJECTED due to Laboratory criteria: Quanity Not Sufficient. [facility]. 05/23/2446 Bonilla R Moore Performed By: #### L 501.9520, L501.5200, L500.4050, L501.2300, L501.4700 #### [facility] [address] [place], [address] CO2 Normal 21.0-32.0 [facility] Comment on above: Result Comment: This specimen has been REJECTED due to Laboratory criteria: Quanity Not Sufficient. [email or web address] has been notified of need of recollection. 05/23/2446 Bonilla R Moore Performed By: #### L 501.9520, L501.5200, L500.4050, L501.2300, L501.4700 #### [facility] [address] [place], [address] CREAT,SERUM Normal 0.70-1.30 [facility] Comment on above: Result Comment: This specimen has been REJECTED due to Laboratory criteria: Quanity Not Sufficient. [facility] need of [facility]. 05/23/2446 Bonilla R Moore Performed By: #### L 501.9520, L501.5200, L500.4050, L501.2300, L501.4700 #### [facility] [address] [place], [address] EST GFR Normal >60 [facility] Comment on above: Result Comment: This specimen has been REJECTED due to Laboratory criteria: Quanity Not Sufficient. [facility] been notified of need of recollection. 05/23/24645 Bonilla R Moore Performed By: #### L 501.9520, L501.5200, L500.4050, L501.2300, L501.4700 #### [facility] [address] [place], [address] EST GFR - AA Normal >60 [facility] Comment on above: Result Comment: This specimen has been REJECTED due to Laboratory criteria: Quanity Not Sufficient. [facility] has been notified of need of recollection. 05/23/2446 Bonilla R Moore Performed By: #### L 501.9520, L501.5200, L500.4050, L501.2300, L501.4700 #### [facility] [address] [place], [address] GAP Normal 5-15 [facility] Comment on above: Result Comment: This specimen has been REJECTED due to Laboratory criteria: Quanity Not Sufficient. [facility] has been notified of need of recollection. 05/23/2446 Bonilla R Moore Performed By: #### L 501.9520, L501.5200, L500.4050, L501.2300, L501.4700 #### [facility] [address] [place], [address] GLU Normal 74-106 [facility] Comment on above: Result Comment: This specimen has been REJECTED due to Laboratory criteria: Quanity Not Sufficient. [facility] notified [facility] need of recollection. 05/23/24645 Bonilla R Moore Performed By: #### L 501.9520, L501.5200, L500.4050, L501.2300, L501.4700 #### [facility] [address] [place], [address] Potassium Normal 3.5-5.1 [facility] Comment on above: Result Comment: This specimen has been REJECTED due to Laboratory criteria: Quanity Not Sufficient. [facility] been notified of need of recollection. 05/23/24645 Bonilla R Moore Performed By: #### L 501.9520, L501.5200, L500.4050, L501.2300, L501.4700 #### [facility] [address] [place], [address] Comprehensive Metabolic Profil Normal 136-145 [facility] Comment on above: Result Comment: This specimen has been REJECTED due to Laboratory criteria: Quanity Not Sufficient. [facility] notified [facility] need of recollection. 05/23/2446 Bonilla R Moore Performed By: #### L 501.9520, L501.5200, L500.4050, L501.2300, L501.4700 #### [facility] [address] [place], [address] Liver Profileon 05-23-2024 ALB Normal 3.2-5.0 [facility] Comment on above: Result Comment: This specimen has been REJECTED due to Laboratory criteria: Quanity Not Sufficient. [facility] has been notified of need of recollection. 05/23/2446 Bonilla R Moore Performed By: #### L 501.9520, L501.5200, L500.4050, L501.2300, L501.4700 #### [facility] [address] [place], [address] ALK P Normal 45-117 [facility] Comment on above: Result Comment: This specimen has been REJECTED due to Laboratory criteria: Quanity Not Sufficient. [facility] has been notified of need of recollection. 05/23/2446 Bonilla R Moore Performed By: #### L 501.9520, L501.5200, L500.4050, L501.2300, L501.4700 #### [facility] [address] [place], [address] ALT Normal 16-61 [facility] Comment on above: Result Comment: This specimen has been REJECTED due to Laboratory criteria: Quanity Not Sufficient. [facility] has been notified of need of recollection. 05/23/2446 Bonilla R Moore Performed By: #### L 501.9520, L501.5200, L500.4050, L501.2300, L501.4700 #### [facility] [address] [place], [address] AST Normal 15-37 [facility] Comment on above: Result Comment: This specimen has been REJECTED due to Laboratory criteria: Quanity Not Sufficient. [facility] has been notified of need of recollection. 05/23/2446 Bonilla R Moore Performed By: #### L 501.9520, L501.5200, L500.4050, L501.2300, L501.4700 #### [facility] [address] [place], [address] D BILI Normal 0.00-0.30 [facility] Comment on above: Result Comment: This specimen has been REJECTED due to Laboratory criteria: Quanity Not Sufficient. [facility] has been notified of need of recollection. 05/23/2446 Bonilla R Moore Performed By: #### L 501.9520, L501.5200, L500.4050, L501.2300, L501.4700 #### [facility] [address] [place], [address] T BILI Normal 0.20-1.00 [facility] Comment on above: Result Comment: This specimen has been REJECTED due to Laboratory criteria: Quanity Not Sufficient. [facility] notified [facility] need of recollection. 05/23/24645 Bonilla R Moore Performed By: #### L 501.9520, L501.5200, L500.4050, L501.2300, L501.4700 #### [facility] [address] [place], [address] T PROT Normal 6.4-8.2 [facility] Comment on above: Result Comment: This specimen has been REJECTED due to Laboratory criteria: Quanity Not Sufficient. [facility] has been notified of need of recollection. 05/23/2446 Bonilla R Moore Performed By: #### L 501.9520, L501.5200, L500.4050, L501.2300, L501.4700 #### [facility] [address] [place], [address] Magnesiumon 05-23-2024 Magnesium [Mass/Vol] 1.7 mg/dL Normal 1.6-2.6 [facility] Comment on above: Order Comment: RED W. PREVIOUS SPECIMEN REJECTED DUE TO QNS. 05/23/2447 Bonilla Moore. Performed By: #### L 501.9520, L501.5200, L500.4050, L501.2300, L501.4700 #### [facility] [address] [place], [address] Phosphoruson 05-23-2024 Phosphate [Mass/Vol] 2.5 mg/dL Normal 2.5-4.9 [facility] Comment on above: Order Comment: RED W. PREVIOUS SPECIMEN REJECTED DUE TO QNS. 05/23/24646 Bonilla R Moore. Performed By: #### L 501.9520, L501.5200, L500.4050, L501.2300, L501.4700 #### [facility] [address] [place], [address] Prothrombin Time w/INRon INR Coag (PPP) [Relative time] 1.2 {INR} Normal [facility] Comment on above: Performed By: #### L 501.9520, L501.5200, L500.4050, L501.2300, L501.4700 #### [facility] [address] [place], [address] PT Coag (PPP) [Time] 14.9 s Normal 11.7-14.9 [facility] Comment on above: Performed By: #### L 501.9520, L501.5200, L500.4050, L501.2300, L501.4700 #### [facility] [address] [place], [address] Thyroid Stim Hormone (TSH)on 05-23-2024 TSH 0.273 uIU/mL Low 0.358-3.740 [facility] Comment on above: Order Comment: REDRA W. PREVIOUS SPECIMEN REJECTED DUE TO QNS. 05/23/24 Bonilla R Moore. Performed By: #### L 501.9520, L501.5200, L500.4050, L501.2300, L501.4700 #### [facility] [address] [place], [address] Urinalysis, Completeon 05-23 RBC 0-5 SEEN Normal 0-5 [facility] Comment on above: Order Comment: REDRA W. PREVIOUS SPECIMEN REJECTED DUE TO QNS. 05/23/24 Bonilla R Moore. Performed By: #### L 501.9520, L501.5200, L500.4050, L501.2300, L501.4700 #### [facility] [address] [place], [address] BACTERIA 1+ /hpf Normal None Seen [facility] Comment on above: Order Comment: REDRA W. PREVIOUS SPECIMEN REJECTED DUE TO QNS. 05/23/24 Bonilla R Moore. Performed By: #### L 501.9520, L501.5200, L500.4050, L501.2300, L501.4700 #### [facility] [address] [place], [address] WBC 25-50 SEEN Normal 0-5 [facility] Comment on above: Order Comment: REDRA W. PREVIOUS SPECIMEN REJECTED DUE TO QNS. 05/23/24 Bonilla R Moore. Performed By: #### L 501.9520, L501.5200, L500.4050, L501.2300, L501.4700 #### [facility] [address] [place], [address] Mucus Ql (Urine sed) 1+ /hpf Normal [facility] Comment on above: Order Comment: REDRA W. PREVIOUS SPECIMEN REJECTED DUE TO QNS. 05/23/24 Bonilla R Moore. Performed By: #### L 501.9520, L501.5200, L500.4050, L501.2300, L501.4700 #### [facility] [address] [place], [address] EPI,SQUAMOUS 0 SEEN Normal 0-5 [facility] Comment on above: Order Comment: REDRA W. PREVIOUS SPECIMEN REJECTED DUE TO QNS. 05/23/24 Bonilla R Moore. Performed By: #### L 501.9520, L501.5200, L500.4050, L501.2300, L501.4700 #### [facility] [address] [place], [address] 12 Lead EKGon 05-22-2024 12 Lead EKG [facility] [address] [place] [address] 12 Lead EKG 05/22/241951 MR#: [id number] Acct: [id number] Name: YU YOUNGER Rep #: [id number] : 1990 33 From: Bhavesh Castillo MD Attending Dr: Dr. Sorin Cnonell MD Status: ADM IN Ordering Dr: Paige Zamarripa Date: 05/22/24 Location: [facility] Sex: M C Admitted: 05/22/24 Test [...] Abnormal ECG Confirmed by Bhavesh Castillo ([id number]), subeditor SHREYA REYES ([id number]) on 05/25/2024 6:46:00 AM Referred By: Confirmed By: Bhavesh Castillo 05/25/24645 Date Bhavesh Castillo MD CC: Dr. Sorin Connell MD; RUEL Bowers; No Primary Care Physician Signed Normal [facility] Alcohol, Blood (Medical)-Ser on 05-22-2024 SERUM ETOH 363.0 mg/dL Invalid Interpretation Code [facility] Comment on above: Result Comment: Crit ical [...] Deep/possible fatal coma Performed By: #### L 501.9522, L501.5200, L500.4050, L501.2300, L501.4700 #### [facility] [address] [place], [address] Basic Metabolic Profile (BMP )on 05-22-2024 BUN/CRE 5.8 RATIO Low 10-20 [facility] Comment on above: Performed By: #### L 501.9520, L501.5200, L500.4050, L501.2300, L501.4700 #### [facility] [address] [place], [address] CA,Total 8.8 mg/dL Normal 8.5-10.1 [facility] Comment on above: Performed By: #### L 501.9520, L501.5200, L500.4050, L501.2300, L501.4700 #### [facility] [address] [place], [address] Chloride [Moles/Vol] 104 mmol/L Normal 98-107 [facility] Comment on above: Performed By: #### L 501.9520, L501.5200, L500.4050, L501.2300, L501.4700 #### [facility] [address] [place], [address] CO2 [Moles/Vol] 28.0 mmol/L Normal 21.0-32.0 [facility] Comment on above: Performed By: #### L 501.9520, L501.5200, L500.4050, L501.2300, L501.4700 #### [facility] [address] [place], [address] Creatinine [Mass/Vol] 1.03 mg/dL Normal 0.70-1.30 [facility] Comment on above: Result Comment: The validity of the calculated GFR GFRAA in patients over 70 years has not been determined. Clinical correlation is essential. Performed By: #### L 501.9520, L501.5200, L500.4050, L501.2300, L501.4700 #### [facility] [address] [place], [address] ECRCL 98.69 ml/min Normal [facility] Comment on above: Performed By: #### L 501.9520, L501.5200, L500.4050, L501.2300, L501.4700 #### [facility] [address] [place], [address] EST GFR - AA 106 mL/min Normal >60 [facility] Comment on above: Result Comment: Afri can Filipino GFR Calc Performed By: #### L 501.9520, L501.5200, L500.4050, L501.2300, L501.4700 #### [facility] [address] [place], [address] GAP 10 Normal 5-15 [facility] Comment on above: Performed By: #### L 501.9520, L501.5200, L500.4050, L501.2300, L501.4700 #### [facility] [address] [place], [address] GFR/1.73 sq M.predicted among non-blacks MDRD (S/P/Bld) [Vol rate/Area] 88 mL/min/{1.73_m2} Normal >60 [facility] Comment on above: Result Comment: Non- GFR Calc Performed By: #### L 501.9520, L501.5200, L500.4050, L501.2300, L501.4700 #### [facility] [address] [place], [address] Glucose [Mass/Vol] 112 mg/dL High 74-106 [facility] Comment on above: Result Comment: Fast ing Glucose result from 100 to 125 mg/dL suggests IMPAIRED HOMEOSTASIS per A.D.A. criteria. Performed By: #### L 501.9520, L501.5200, L500.4050, L501.2300, L501.4700 #### [facility] [address] [place], [address] Potassium [Moles/Vol] 2.8 mmol/L Low 3.5-5.1 [facility] Comment on above: Performed By: #### L 501.9520, L501.5200, L500.4050, L501.2300, L501.4700 #### [facility] [address] [place], [address] Sodium [Moles/Vol] 141 mmol/L Normal 136-145 [facility] Comment on above: Performed By: #### L 501.9520, L501.5200, L500.4050, L501.2300, L501.4700 #### [facility] [address] [place], [address] Urea nitrogen [Mass/Vol] 6 mg/dL Low 7-18 [facility] Comment on above: Performed By: #### L 501.9520, L501.5200, L500.4050, L501.2300, L501.4700 #### [facility] [address] [place], [address] CBC W/Diff, Automatedon 12-0 Absolute Lymph 2.41 X10 3/uL Normal 0.83-4.51 [facility] Comment on above: Performed By: #### L 501.9520, L501.5200, L500.4050, L501.2300, L501.4700 #### [facility] [address] [place], [address] Absolute Neut 2.6 X10 3/uL Normal 2.0-7.7 [facility] Comment on above: Performed By: #### L 501.9520, L501.5200, L500.4050, L501.2300, L501.4700 #### [facility] [address] [place], [address] Basophils/100 WBC (Bld) 0.2 % Normal 0-1 [facility] Comment on above: Performed By: #### L 501.9520, L501.5200, L500.4050, L501.2300, L501.4700 #### [facility] [address] [place], [address] Eosinophils/100 WBC (Bld) 0.2 % Normal 0-5 [facility] Comment on above: Performed By: #### L 501.9520, L501.5200, L500.4050, L501.2300, L501.4700 #### [facility] [address] [place], [address] Erythrocyte distribution width (RBC) [Ratio] 14.5 % Normal 11.6-14.6 [facility] Comment on above: Performed By: #### L 501.9520, L501.5200, L500.4050, L501.2300, L501.4700 #### [facility] [address] [place], [address] Hematocrit (Bld) [Volume fraction] 43.2 % Normal 40-54 [facility] Comment on above: Performed By: #### L 501.9520, L501.5200, L500.4050, L501.2300, L501.4700 #### [facility] [address] [place], [address] Hemoglobin (Bld) [Mass/Vol] 14.4 g/dL Normal 13.0-16.5 [facility] Comment on above: Performed By: #### L 501.9520, L501.5200, L500.4050, L501.2300, L501.4700 #### [facility] [address] [place], [address] IG% 0.400 Normal 0.0-0.9 [facility] Comment on above: Result Comment: IG% - Immature Granulocytes (promyelocytes, myelocytes and metamyelocytes) > 1% indicates that a LEFT SHIFT is Present. Performed By: #### L 501.9520, L501.5200, L500.4050, L501.2300, L501.4700 #### [facility] [address] [place], [address] Lymphocytes/100 WBC (Bld) 42.4 % High 19-41 [facility] Comment on above: Performed By: #### L 501.9520, L501.5200, L500.4050, L501.2300, L501.4700 #### [facility] [address] [place], [address] MCH (RBC) [Entitic mass] 31.9 pg Normal 27.0-32.0 [facility] Comment on above: Performed By: #### L 501.9520, L501.5200, L500.4050, L501.2300, L501.4700 #### [facility] [address] [place], [address] MCHC (RBC) [Mass/Vol] 33.3 g/dL Normal 32-36 [facility] Comment on above: Performed By: #### L 501.9520, L501.5200, L500.4050, L501.2300, L501.4700 #### [facility] [address] [place], [address] MCV (RBC) [Entitic vol] 95.8 fL High 80-94 [facility] Comment on above: Performed By: #### L 501.9520, L501.5200, L500.4050, L501.2300, L501.4700 #### [facility] [address] [place], [address] Monocytes/100 WBC (Bld) 12.0 % High 0-10 [facility] Comment on above: Performed By: #### L 501.9520, L501.5200, L500.4050, L501.2300, L501.4700 #### [facility] [address] [place], [address] Neutrophils/100 WBC (Bld) 44.8 % Low 47-70 [facility] Comment on above: Performed By: #### L 501.9520, L501.5200, L500.4050, L501.2300, L501.4700 #### [facility] [address] [place], [address] Nucleated RBC (Bld) [#/Vol] 0 10*3/uL Normal 0-5 [facility] Comment on above: Performed By: #### L 501.9520, L501.5200, L500.4050, L501.2300, L501.4700 #### [facility] [address] [place], [address] Platelet mean volume (Bld) [Entitic vol] 9.4 fL Normal 6.2-12.0 [facility] Comment on above: Performed By: #### L 501.9520, L501.5200, L500.4050, L501.2300, L501.4700 #### [facility] [address] [place], [address] Platelets (Bld) [#/Vol] 144 10*3/uL Low 150-450 [facility] Comment on above: Performed By: #### L 501.9520, L501.5200, L500.4050, L501.2300, L501.4700 #### [facility] [address] [place], [address] RBC (Bld) [#/Vol] 4.51 10*6/uL Low 4.6-6.2 [facility] Comment on above: Performed By: #### L 501.9520, L501.5200, L500.4050, L501.2300, L501.4700 #### [facility] [address] [place], [address] RDW SD 49.5 fl High 35.1-43.9 [facility] Comment on above: Performed By: #### L 501.9520, L501.5200, L500.4050, L501.2300, L501.4700 #### [facility] [address] [place], [address] WBC (Bld) [#/Vol] 5.7 10*3/uL Normal 4.4-11.0 [facility] Comment on above: Performed By: #### L 501.9520, L501.5200, L500.4050, L501.2300, L501.4700 #### [facility] [address] [place], [address] Comprehensive Metabolic Prof [facility] 05-22-2024 Albumin [Mass/Vol] 4.2 g/dL Normal 3.2-5.0 [facility] Comment on above: Performed By: #### L 501.9520, L501.5200, L500.4050, L501.2300, L501.4700 #### [facility] [address] [place], [address] Albumin/Globulin [Mass ratio] 0.9 {ratio} Normal 0.9-2.4 [facility] Comment on above: Performed By: #### L 501.9520, L501.5200, L500.4050, L501.2300, L501.4700 #### [facility] [address] [place], [address] ALK P 243 U/L High 45-117 [facility] Comment on above: Performed By: #### L 501.9520, L501.5200, L500.4050, L501.2300, L501.4700 #### [facility] [address] [place], [address] ALT [Catalytic activity/Vol] 133 U/L High 16-61 [facility] Comment on above: Performed By: #### L 501.9520, L501.5200, L500.4050, L501.2300, L501.4700 #### [facility] [address] [place], [address] AST [Catalytic activity/Vol] 290 U/L High 15-37 [facility] Comment on above: Performed By: #### L 501.9520, L501.5200, L500.4050, L501.2300, L501.4700 #### [facility] [address] [place], [address] Bilirubin [Mass/Vol] 1.00 mg/dL Normal 0.20-1.00 [facility] Comment on above: Result Comment: For patients on eltrombopag therapy, use of Dimension [place] TBIL is not recommended. Performed By: #### L 501.9520, L501.5200, L500.4050, L501.2300, L501.4700 #### [facility] [address] [place], [address] Globulin (S) [Mass/Vol] 4.7 g/dL High 2.2-4.2 [facility] Comment on above: Performed By: #### L 501.9520, L501.5200, L500.4050, L501.2300, L501.4700 #### [facility] [address] [place], [address] T PROT 8.9 g/dL High 6.4-8.2 [facility] Comment on above: Performed By: #### L 501.9520, L501.5200, L500.4050, L501.2300, L501.4700 #### [facility] [address] [place], [address] Emergency Department Summary on 05-22-2024 Emergency Department Summary [facility] Medical Records Department [address] [place] [address] Emergency Department Summary 05/22/24 MR#: [id number] Acct: [id number] Name: YU YOUNGER Rep #: [id number] : 1990 33 From: Drake Rader PCP: Care Physician,No Primary Status:ADM IN Location: [address] History of Present Illness Chief Complaint: [...] 2 weeks ago and was admitted to [facility] for several days. Since then his abdominal pain has decreased. He vomited once this morning but denies hematemesis. He states his stool occasionally looks dark but he thinks it is from Pepto-Bismol. He has no history of withdrawal seizures. He takes methadone. [facility] Medical History (Updated 05/22/24 @ 23:[address] Drake Mccartney DO) Hx of renal calculi Pancreatitis Denies previous medical history Home Medications ???Medication ???Instructions ???Recorded ???Last Taken ???Type methadone 10 mg tablet 100 mg PO DAILY 05/22/24 Unknown History Allergy/AdvReac Type Severity Reaction Status Date / Time levetiracetam (From [facility]) Allergy HIVES Verified 05/22/24 14:54 Surgical History [...] Ox 100 Oxygen Delivery Method Room Air [facility] [place] [place] Narrative Medical decision making narrative: Patient is [...] Nonspecific T wave abnormality QTc 459 ms [facility] Narrative Medical decision making narrative: Patient [...] face asse (more content not included)... Normal [facility] H AND P Exam - Hospitaliston 05-22-2024 H&P Exam - Hospitalist [facility] Medical Records Department [address] [place] [address] H P Exam - Hospitalist 05/22/24 1950 MR#: [id number] Acct: [id number] Name: YU YOUNGER Rep #: [id number] : 1990 33 From: Phoenix Ramsey DO PCP: Care Physician,No Primary Status:ADM IN Location: [place] [address] HPI - General General Date of Admission: 05/22/24 Date of Service: 05/22/24 Chief Complaint: Wants Help with EtOH Detox. HPI Narrative YU YOUNGER, is a 33 M with a past medical history of tobacco abuse, history of heroin abuse (IV and snorting); on methadone 100 mg p.o. daily followed by the [facility], history of cannabis abuse, chronic alcohol abuse; with patient admitting to drinking 12 pints of 13% alcohol daily, history of admission here for detoxification from heroin and alcohol (2020), history of alcoholic pancreatitis, history of depression and anxiety, listed allergy to levetiracetam; (hives), history of renal calculi and history of alcoholic pancreatitis with admission to hospital in [facility] for several days 2 weeks ago who presents to [facility] ER complaining of wanting help with alcohol detoxification. Mr. Younger reports he has been heavily drinking since November 2023 and he has experienced worsening abdominal pain since his recent discharge from [facility] due to continued alcohol abuse with his [...] is expected to extend beyond 2 midnights. [facility] Medical History Hx of renal calculi Pancreatitis Denies previous medical history Home Medications ???Medication ???Instructions ???Recorded ???Last Taken ???Type methadone 10 mg tablet 100 mg PO DAILY 05/22/24 Unknown History Allergy/AdvReac Type Severity Reaction Status Date / Time levetiracetam (From [facility]) Allergy HIVES Verified 05/22/24 14:54 Surgical History [...] HEENT normocephal (more content not included)... Normal [facility] Lipaseon 05-22-2024 Lipase [Catalytic activity/Vol] 79 U/L High 13-75 [facility] Comment on above: Result Comment: Lisbeth stone note: LIPASE revised reference range effective 22. New Lipase methodology. Expected to produce lower values than the previous assay method. NEW Reference Range: 13 - 75 U/L Performed By: #### L 501.9520, L501.5200, L500.4050, L501.2300, L501.4700 #### [facility] [address] [place], [address] Liver Profileon 05-22-2024 Albumin [Mass/Vol] 4.3 g/dL Normal 3.2-5.0 [facility] Comment on above: Performed By: #### L 501.9520, L501.5200, L500.4050, L501.2300, L501.4700 #### [facility] [address] [place], [address] ALK P 246 U/L High 45-117 [facility] Comment on above: Performed By: #### L 501.9520, L501.5200, L500.4050, L501.2300, L501.4700 #### [facility] [address] [place], [address] ALT [Catalytic activity/Vol] 133 U/L High 16-61 [facility] Comment on above: Performed By: #### L 501.9520, L501.5200, L500.4050, L501.2300, L501.4700 #### [facility] [address] [place], [address] AST [Catalytic activity/Vol] 286 U/L High 15-37 [facility] Comment on above: Performed By: #### L 501.9520, L501.5200, L500.4050, L501.2300, L501.4700 #### [facility] [address] [place], [address] Bilirubin [Mass/Vol] 1.00 mg/dL Normal 0.20-1.00 [facility] Comment on above: Result Comment: For patients on eltrombopag therapy, use of Dimension [place] TBIL is not recommended. Performed By: #### L 501.9520, L501.5200, L500.4050, L501.2300, L501.4700 #### [facility] [address] [place], [address] Bilirubin.direct [Mass/Vol] 0.61 mg/dL High 0.00-0.30 [facility] Comment on above: Performed By: #### L 501.9520, L501.5200, L500.4050, L501.2300, L501.4700 #### [facility] [address] [place], [address] Globulin (S) [Mass/Vol] 4.6 g/dL High 2.2-4.2 [facility] Comment on above: Performed By: #### L 501.9520, L501.5200, L500.4050, L501.2300, L501.4700 #### [facility] [address] [place], [address] T PROT 8.9 g/dL High 6.4-8.2 [facility] Comment on above: Performed By: #### L 501.9520, L501.5200, L500.4050, L501.2300, L501.4700 #### [facility] [address] [place], [address] Urine Drug Screen (VISTA)on 05-22-2024 AMPHETAMINES Negative Normal <1000 ng/mL [facility] Comment on above: Performed By: #### L 501.9520, L501.5200, L500.4050, L501.2300, L501.4700 #### [facility] [address] [place], [address] BARBITIURATES Positive Abnormal < 200 ng/mL [facility] Comment on above: Performed By: #### L 501.9520, L501.5200, L500.4050, L501.2300, L501.4700 #### [facility] [address] [place], [address] BENZODIAZIPINE Negative Normal < 200 ng/mL [facility] Comment on above: Performed By: #### L 501.9520, L501.5200, L500.4050, L501.2300, L501.4700 #### [facility] [address] [place], [place], [facility] COCAINE Negative Normal < 300 ng/mL [facility] Comment on above: Performed By: #### L 501.9520, L501.5200, L500.4050, L501.2300, L501.4700 #### [facility] [address] [place], [address] ECSTACY Negative Normal < 500 ng/mL [facility] Comment on above: Performed By: #### L 501.9520, L501.5200, L500.4050, L501.2300, L501.4700 #### [facility] [address] [place], [address] METHADONE Positive Abnormal < 300 ng/mL [facility] Comment on above: Performed By: #### L 501.9520, L501.5200, L500.4050, L501.2300, L501.4700 #### [facility] [address] [place], [address] OPIATES Negative Normal < 300 ng/mL [facility] Comment on above: Performed By: #### L 501.9520, L501.5200, L500.4050, L501.2300, L501.4700 #### [facility] [address] [place], [address] PCP Negative Normal < 25 ng/mL [facility] Comment on above: Performed By: #### L 501.9520, L501.5200, L500.4050, L501.2300, L501.4700 #### [facility] [address] [place], [address] THC Positive Abnormal < 50 ng/mL [facility] Comment on above: Performed By: #### L 501.9520, L501.5200, L500.4050, L501.2300, L501.4700 #### [facility] [address] [place], [address] VISTA UDS PH 6 Normal [facility] Comment on above: Performed By: #### L 501.9520, L501.5200, L500.4050, L501.2300, L501.4700 #### [facility] [address] [place], [address] BASIC METABOLIC PANELon 11-0 Anion gap [Moles/Vol] 16 mmol/L Normal 10-20 [facility] Comment on above: Order Comment: [facility] has implemented the eGFR calculation approach that does not have a coefficient for race that conforms to the NKF-ASN Task Force Recommendations. Performed By: #### L [id number] #### [facility] [address] [place] [address] Dallin Donahue M.D. [id number] Calcium [Mass/Vol] 9.2 mg/dL Normal 8.4-10.2 [facility] Comment on above: Order Comment: [facility] has implemented the eGFR calculation approach that does not have a coefficient for race that conforms to the NKF-ASN Task Force Recommendations. Performed By: #### L [id number] #### [facility] [address] [place] [address] Dallin Donahue M.D. [id number] Chloride [Moles/Vol] 96 mmol/L Low 98-108 [facility] Comment on above: Order Comment: [facility] has implemented the eGFR calculation approach that does not have a coefficient for race that conforms to the NKF-ASN Task Force Recommendations. Performed By: #### L [id number] #### [facility] [address] [place] [address] Dallin Donahue M.D. [id number] Creatinine [Mass/Vol] 0.86 mg/dL Normal 0.50-1.30 [facility] Comment on above: Order Comment: [facility] has implemented the eGFR calculation approach that does not have a coefficient for race that conforms to the NKF-ASN Task Force Recommendations. Performed By: #### L [id number] #### [facility] [address] [place] [address] Dallin Donahue M.D. [id number] EGFR 117 mL/min/1.73 m2 Normal >=60 [facility] Comment on above: Order Comment: [facility] has implemented the eGFR calculation approach that does not have a coefficient for race that conforms to the NKF-ASN Task Force Recommendations. Result Comment: Karoline mated GFR was calculated using the 2020 CKD-EPI creatinine equation. Performed By: #### L [id number] #### [facility] [address] [place] [address] Dallin Donahue M.D. [id number] Glucose [Mass/Vol] 87 mg/dL Normal 65-99 [facility] Comment on above: Order Comment: [facility] has implemented the eGFR calculation approach that does not have a coefficient for race that conforms to the NKF-ASN Task Force Recommendations. Performed By: #### L [id number] #### [facility] [address] [place] [address] Dallin Donahue M.D. [id number] HCO3 (Bld) [Moles/Vol] 24 mmol/L Normal 21-32 [facility] Comment on above: Order Comment: [facility] has implemented the eGFR calculation approach that does not have a coefficient for race that conforms to the NKF-ASN Task Force Recommendations. Performed By: #### L [id number] #### [facility] [address] [place] [address] Dallin Donahue M.D. [id number] Potassium [Moles/Vol] 4.4 mmol/L Normal 3.5-5.1 [facility] Comment on above: Order Comment: [facility] has implemented the eGFR calculation approach that does not have a coefficient for race that conforms to the NKF-ASN Task Force Recommendations. Result Comment: Slig htly Hemolyzed Performed By: #### L [id number] #### [facility] [address] [place] [address] Dallin Donahue M.D. [id number] Sodium [Moles/Vol] 132 mmol/L Low 135-145 [facility] Comment on above: Order Comment: [facility] has implemented the eGFR calculation approach that does not have a coefficient for race that conforms to the NKF-ASN Task Force Recommendations. Performed By: #### L [id number] #### [facility] [address] [place] [address] Dallin Donahue M.D. [id number] Urea nitrogen [Mass/Vol] 7 mg/dL Low 8-25 [facility] Comment on above: Order Comment: [facility] has implemented the eGFR calculation approach that does not have a coefficient for race that conforms to the NKF-ASN Task Force Recommendations. Performed By: #### L [id number] #### [facility] [address] [place], [place] [address] Dallin Donahue M.D. [id number] Urea nitrogen/Creatinine [Mass ratio] 8.1 mg/mg Low 10.0-20.0 [facility] Comment on above: Order Comment: [facility] has implemented the eGFR calculation approach that does not have a coefficient for race that conforms to the NKF-ASN Task Force Recommendations. Performed By: #### L [id number] #### [facility] [address] [place], [place] [address] Dallin Donahue M.D. [id number] Basic metabolic 2000 panelon 04-23-2024 Anion gap [Moles/Vol] 16 mmol/L 10 - 2 0 mmol/L [facility] Calcium [Mass/Vol] 9.2 mg/dL 8.4 - 10. 2 mg/dL [facility] Chloride [Moles/Vol] 96 mmol/L Low 98 - 10 8 mmol/L [facility] Creatinine [Mass/Vol] 0.86 mg/dL 0.50 - 1.30 mg/dL [facility] GFR/1.73 sq M.predicted CKD-EPI (S/P/Bld) [Vol rate/Area] 117 - PINF [facility] Comment on above: Estimated GFR was ca lculated using the 2020 CKD-EPI creatinine equation. Glucose [Mass/Vol] 87 mg/dL 65 - 99 mg/dL [facility] HCO3 [Moles/Vol] 24 mmol/L 21 - 32 mmol/L [facility] Potassium [Moles/Vol] 4.4 mmol/L 3.5 - 5.1 mmol/L [facility] Comment on above: Slightly Hemolyzed Sodium [Moles/Vol] 132 mmol/L Low 135 - 145 mmol/L [facility] Urea nitrogen [Mass/Vol] 7 mg/dL Low 8 - 25 mg/dL [facility] Urea nitrogen/Creatinine [Mass ratio] 8.1 mg/mg Low 10.0 - 20.0 [facility] has implemented the eGFR calculation approach that does not have a coefficient for race that conforms to the NKF-ASN Task Force Recommendations. [facility] CBC Auto Differentialon -0 Basophils (Bld) [#/Vol] 0.02 10*3/uL [facility] Basophils/100 WBC (Bld) 0.3 % [facility] Eosinophils (Bld) [#/Vol] 0.02 10*3/uL [facility] Eosinophils/100 WBC (Bld) 0.3 % [facility] Erythrocyte distribution width (RBC) [Entitic vol] 13.2 % 11.6 - 14.8 % [facility] Hematocrit (Bld) [Volume fraction] 44.9 % 41.0 - 53.0 % [facility] Hemoglobin (Bld) [Mass/Vol] 15.3 g/dL 13.5 - 17.5 g/dL [facility] Immature granulocytes (Bld) [#/Vol] 0.07 10*3/uL [facility] Immature granulocytes/100 WBC (Bld) 0.9 % [facility] Comment on above: The IG parameter is the percentage of metamyelocytes, myelocytes and promyelocytes. An immature granulocyte count (IG) of 1% or more suggests the possibility of infection, an IG count of 3% is very likely related to an infection. Interpretation and review of laboratory results Abnormal [facility] Lymphocytes (Bld) [#/Vol] 1.41 10*3/uL [facility] Lymphocytes/100 WBC (Bld) 18 % [facility] MCH (RBC) [Entitic mass] 33 pg 26.0 - 34.0 pg [facility] MCHC (RBC) [Mass/Vol] 34.1 g/dL 31.0 - 37.0 g/dL [facility] MCV (RBC) [Entitic vol] 96.8 fL 80.0 - 100.0 fL [facility] Monocytes (Bld) [#/Vol] 1.03 10*3/uL High [facility] Monocytes/100 WBC (Bld) 13.2 % [facility] Neutrophils (Bld) [#/Vol] 5.28 10*3/uL [facility] Neutrophils/100 WBC (Bld) 67.3 % [facility] Nucleated RBC (Bld) [#/Vol] 0 10*3/uL [facility] Nucleated RBC/100 WBC (Bld) [Ratio] 0 % [facility] Platelet mean volume (Bld) [Entitic vol] 10.3 fL 9.4 - 12.4 fL [facility] Platelets (Bld) [#/Vol] 163 10*3/uL [facility] RBC (Bld) [#/Vol] 4.64 10*6/uL [facility] WBC (Bld) [#/Vol] 7.83 10*3/uL [facility] CBC WITH AUTO DIFFERENTIALon 04-23-2024 AUTO NRBC 0.0 % Normal [facility] Comment on above: Performed By: #### L [id number] #### LAB [address] [address] Dallin Donahue M.D. [id number] AUTO NRBC ABS COUNT 0.00 K/mcL Normal 0.00-0.00 [facility] Comment on above: Performed By: #### L [id number] #### LAB [address] [address] Dallin Donahue M.D. [id number] BASOPHILS ABSOLUTE COUNT 0.02 K/mcL Normal 0.00-0.30 [facility] Comment on above: Performed By: #### L [id number] #### LAB [address] [place] [address] Dallin Donahue M.D. [id number] Basophils/100 WBC (Bld) 0.3 % [facility] Comment on above: Performed By: #### L [id number] #### LAB [address] [place] [address] Dallin Donahue M.D. [id number] Eosinophils (Bld) [#/Vol] 0.02 10*3/uL Normal 0.00-0.50 [facility] Comment on above: Performed By: #### L [id number] #### LAB [address] [place] [address] Dallin Donahue M.D. [id number] Eosinophils/100 WBC (Bld) 0.3 % [facility] Comment on above: Performed By: #### L [id number] #### LAB [address] [place] [address] Dallin Donahue M.D. [id number] Erythrocyte distribution width (RBC) [Ratio] 13.2 % Normal 11.6-14.8 [facility] Comment on above: Performed By: #### L [id number] #### LAB [address] [address] Dallin Donahue M.D. [id number] Hematocrit (Bld) [Volume fraction] 44.9 % Normal 41.0-53.0 [facility] Comment on above: Performed By: #### L [id number] #### LAB [address] [address] Dallin Donahue M.D. [id number] Hemoglobin (Bld) [Mass/Vol] 15.3 g/dL Normal 13.5-17.5 [facility] Comment on above: Performed By: #### L [id number] #### LAB [address] [address] Dallin Donahue M.D. [id number] IG ABSOLUTE 0.07 K/mcL Normal 0.00-0.30 [facility] Comment on above: Performed By: #### L [id number] #### LAB [address] [place] [address] Dallin Donahue M.D. [id number] IG PERCENT 0.90 % Normal [facility] Comment on above: Result Comment: The IG parameter is the percentage of metamyelocytes, myelocytes and promyelocytes. An immature granulocyte count (IG) of 1% or more suggests the possibility of infection, an IG count of 3% is very likely related to an infection. Performed By: #### L [id number] #### LAB [address] [address] Dallin Donahue M.D. [id number] Lymphocytes (Bld) [#/Vol] 1.41 10*3/uL Normal 0.90-4.00 [facility] Comment on above: Performed By: #### L [id number] #### LAB [address] [place] [address] Dallin Donahue M.D. [id number] Lymphocytes/100 WBC (Bld) 18.0 % [facility] Comment on above: Performed By: #### L [id number] #### LAB [address] [address] Dallin Donahue M.D. [id number] MCH (RBC) [Entitic mass] 33.0 pg Normal 26.0-34.0 [facility] Comment on above: Performed By: #### L [id number] #### LAB [address] [address] Dallin Donahue M.D. [id number] MCV (RBC) [Entitic vol] 96.8 fL Normal 80.0-100.0 [facility] Comment on above: Performed By: #### L [id number] #### LAB [address] [address] Dallin Donahue M.D. [id number] MEAN CORPUSCULAR HEMOGLOBIN CONC 34.1 g/dL Normal 31.0-37.0 [facility] Comment on above: Performed By: #### L [id number] #### LAB [address] [address] Dallin Donahue M.D. [id number] Monocytes (Bld) [#/Vol] 1.03 10*3/uL High 0.30-0.90 [facility] Comment on above: Performed By: #### L [id number] #### LAB [address] [address] Dallin Donahue M.D. [id number] Monocytes/100 WBC (Bld) 13.2 % Normal [facility] Comment on above: Performed By: #### L [id number] #### LAB [address] [address] Dallin Donahue M.D. [id number] NEUTROPHILS ABSOLUTE COUNT 5.28 K/mcL Normal 1.70-7.00 [facility] Comment on above: Performed By: #### L [id number] #### LAB [address] [address] Dallin Donahue M.D. [id number] Neutrophils/100 WBC (Bld) 67.3 % Normal [facility] Comment on above: Performed By: #### L [id number] #### [facility] [address] [address] Dallin Donahue M.D. [id number] Platelet mean volume (Bld) [Entitic vol] 10.3 fL Normal 9.4-12.4 [facility] Comment on above: Performed By: #### L [id number] #### LAB [address] [address] Dallin Donahue M.D. [id number] Platelets (Bld) [#/Vol] 163 10*3/uL Normal 150-400 [facility] Comment on above: Performed By: #### L [id number] #### LAB [address] [address] Dallin Donahue M.D. [id number] RBC (Bld) [#/Vol] 4.64 10*6/uL Normal 4.50-5.90 [facility] Comment on above: Performed By: #### L [id number] #### LAB [address] [address] Dallin Donahue M.D. [id number] WBC (Bld) [#/Vol] 7.83 10*3/uL Normal 4.50-11.00 [facility] Comment on above: Performed By: #### L [id number] #### LAB [address] [address] Dallin Donahue M.D. [id number] HEPATIC FUNCTION PANELon Albumin [Mass/Vol] 3.8 g/dL Normal 3.2-5.2 [facility] Comment on above: Performed By: #### L [id number] #### LAB [address] [address] Dallin Donahue M.D. [id number] ALP [Catalytic activity/Vol] 174 U/L High 40-140 [facility] Comment on above: Performed By: #### L [id number] #### LAB [address] [address] Dallin Donahue M.D. [id number] ALT [Catalytic activity/Vol] 35 U/L Normal 0-50 U/L [facility] Comment on above: Performed By: #### L [id number] #### LAB [address], [place] [address] Dallin Donahue M.D. [id number] AST [Catalytic activity/Vol] 56 U/L High 0-50 U/L [facility] Comment on above: Result Comment: Slig htly Hemolyzed Performed By: #### L [id number] #### LAB [address] [address] Dallin Donahue M.D. [id number] Bilirubin [Mass/Vol] 1.1 mg/dL Normal 0.0-1.3 [facility] [place] Comment on above: Performed By: #### L [id number] #### LAB [address] [address] Dallin Donahue M.D. [id number] Bilirubin.indirect [Mass/Vol] 0.4 mg/dL Normal 0.0-0.4 [facility] Comment on above: Result Comment: Slig htly Hemolyzed Performed By: #### L [id number] #### LAB [address] [address] Dallin Donahue M.D. [id number] Protein [Mass/Vol] 7.9 g/dL Normal 6.0-8.0 [facility] Comment on above: Performed By: #### L [id number] #### LAB [address] [address] Dallin Donahue M.D. [id number] Hepatic function 2000 panelo n 04-23-2024 Albumin [Mass/Vol] 3.8 g/dL 3.2 - 5.2 g/dL [facility] ALP [Catalytic activity/Vol] 174 U/L High 40 - 140 U/L [facility] ALT [Catalytic activity/Vol] 35 U/L 0-50 U/L [facility] AST [Catalytic activity/Vol] 56 U/L High 0-50 U/L [facility] Comment on above: Slightly Hemolyzed Bilirubin [Mass/Vol] 1.1 mg/dL 0.0 - 1 .3 mg/dL [facility] Bilirubin.conjugated [Mass/Vol] 0.4 mg/dL 0.0 - 0.4 mg/dL [facility] Comment on above: Slightly Hemolyzed Interpretation and review of laboratory results Abnormal [facility] Protein [Mass/Vol] 7.9 g/dL 6.0 - 8.0 g/dL [facility] MAGNESIUM LEVELon 04-23-2024 Magnesium [Mass/Vol] 1.7 mg/dL Normal 1.6-2.4 [facility] [place] Comment on above: Performed By: #### L [id number] #### [facility] [address], [place] [address] Dallin Donahue M.D. [id number] Magnesium Levelon 04-23-2024 Magnesium [Mass/Vol] 1.7 mg/dL 1.6 - 2 .4 mg/dL [facility] Magnesium [Mass/Vol]on 04-23 Interpretation and review of laboratory results Normal [facility] No Panel Informationon 04-23 Interpretation and review of laboratory results Abnormal [facility] PHOSPHORUSon 04-23-2024 Phosphate [Mass/Vol] 1.4 mg/dL Low 2.7-4.5 [facility] [place] Comment on above: Performed By: #### [id number] #### [facility] [address], [place] [address] Dallin Donahue M.D. [id number] Phosphoruson 04-23-2024 Phosphate [Mass/Vol] 1.4 mg/dL Low 2.7 - 4 .5 mg/dL [facility] BASIC METABOLIC PANELon Anion gap [Moles/Vol] 14 mmol/L Normal 10-20 [facility] Comment on above: Order Comment: [facility] has implemented the eGFR calculation approach that does not have a coefficient for race that conforms to the NKF-ASN Task Force Recommendations. Performed By: #### L [id number] #### [facility] LAB [address], [place] [address] Dallin Donahue M.D. [id number] Calcium [Mass/Vol] 8.0 mg/dL Low 8.4-10.2 [facility] Comment on above: Order Comment: [facility] has implemented the eGFR calculation approach that does not have a coefficient for race that conforms to the NKF-ASN Task Force Recommendations. Performed By: #### L [id number] #### [facility] [address] [address] Dallin Donahue M.D. [id number] Chloride [Moles/Vol] 99 mmol/L Normal 98-108 [facility] [place] Comment on above: Order Comment: [facility] has implemented the eGFR calculation approach that does not have a coefficient for race that conforms to the NKF-ASN Task Force Recommendations. Performed By: #### L [id number] #### [facility] [address] [address] Dallin Donahue M.D. [id number] Creatinine [Mass/Vol] 0.75 mg/dL Normal 0.50-1.30 [facility] Comment on above: Order Comment: [facility] has implemented the eGFR calculation approach that does not have a coefficient for race that conforms to the NKF-ASN Task Force Recommendations. Performed By: #### L [id number] #### [facility] [address] [address] Dallin Donahue M.D. [id number] EGFR 122 mL/min/1.73 m2 Normal >=60 [facility] Comment on above: Order Comment: [facility] has implemented the eGFR calculation approach that does not have a coefficient for race that conforms to the NKF-ASN Task Force Recommendations. Result Comment: Karoline mated GFR was calculated using the 2020 CKD-EPI creatinine equation. Performed By: #### L [id number] #### [facility] [address] [address] Dallin Donahue M.D. [id number] Glucose [Mass/Vol] 90 mg/dL Normal 65-99 [facility] Comment on above: Order Comment: [facility] has implemented the eGFR calculation approach that does not have a coefficient for race that conforms to the NKF-ASN Task Force Recommendations. Performed By: #### L [id number] #### [facility] [address] [address] Dallin Donahue M.D. [id number] HCO3 (Bld) [Moles/Vol] 22 mmol/L Normal 21-32 [facility] Comment on above: Order Comment: [facility] has implemented the eGFR calculation approach that does not have a coefficient for race that conforms to the NKF-ASN Task Force Recommendations. Performed By: #### L [id number] #### [facility] [address] [address] Dallin Donahue M.D. [id number] Potassium [Moles/Vol] 3.3 mmol/L Low 3.5-5.1 [facility] Comment on above: Order Comment: [facility] has implemented the eGFR calculation approach that does not have a coefficient for race that conforms to the NKF-ASN Task Force Recommendations. Performed By: #### L [id number] #### [facility] [address] [address] Dallin Donahue M.D. [id number] Sodium [Moles/Vol] 132 mmol/L Low 135-145 [facility] Comment on above: Order Comment: [facility] has implemented the eGFR calculation approach that does not have a coefficient for race that conforms to the NKF-ASN Task Force Recommendations. Performed By: #### L [id number] #### [facility] [address] [address] Dallin Donahue M.D. [id number] Urea nitrogen [Mass/Vol] 5 mg/dL Low 8-25 [facility] Comment on above: Order Comment: [facility] has implemented the eGFR calculation approach that does not have a coefficient for race that conforms to the NKF-ASN Task Force Recommendations. Performed By: #### L [id number] #### [facility] [address] [address] Dallin Donahue M.D. [id number] Urea nitrogen/Creatinine [Mass ratio] 6.7 mg/mg Low 10.0-20.0 [facility] Comment on above: Order Comment: [facility] has implemented the eGFR calculation approach that does not have a coefficient for race that conforms to the NKF-ASN Task Force Recommendations. Performed By: #### L [id number] #### [facility] [address] [place], [place] [address] Dallin Donahue M.D. [id number] Basic metabolic 2000 panelon 04-22-2024 Anion gap [Moles/Vol] 14 mmol/L 10 - 2 0 mmol/L [facility] Calcium [Mass/Vol] 8 mg/dL Low 8.4 - 10. 2 mg/dL [facility] Chloride [Moles/Vol] 99 mmol/L 98 - 10 8 mmol/L [facility] Creatinine [Mass/Vol] 0.75 mg/dL 0.50 - 1.30 mg/dL [facility] GFR/1.73 sq M.predicted CKD-EPI (S/P/Bld) [Vol rate/Area] 122 - PINF [facility] Comment on above: Estimated GFR was ca lculated using the 2020 CKD-EPI creatinine equation. Glucose [Mass/Vol] 90 mg/dL 65 - 99 mg/dL [facility] HCO3 [Moles/Vol] 22 mmol/L 21 - 32 mmol/L [facility] Potassium [Moles/Vol] 3.3 mmol/L Low 3.5 - 5.1 mmol/L [facility] Sodium [Moles/Vol] 132 mmol/L Low 135 - 145 mmol/L [facility] Urea nitrogen [Mass/Vol] 5 mg/dL Low 8 - 25 mg/dL [facility] Urea nitrogen/Creatinine [Mass ratio] 6.7 mg/mg Low 10.0 - 20.0 [facility] has implemented the eGFR calculation approach that does not have a coefficient for race that conforms to the NKF-ASN Task Force Recommendations. [facility] CBC Auto Differentialon Basophils (Bld) [#/Vol] 0 10*3/uL [facility] Basophils/100 WBC (Bld) 0 % [facility] Eosinophils (Bld) [#/Vol] 0 10*3/uL [facility] Eosinophils/100 WBC (Bld) 0 % [facility] Erythrocyte distribution width (RBC) [Entitic vol] 13.5 % 11.6 - 14.8 % [facility] Hematocrit (Bld) [Volume fraction] 37.3 % Low 41.0 - 53.0 % [facility] Hemoglobin (Bld) [Mass/Vol] 12.6 g/dL Low 13.5 - 17.5 g/dL [facility] Immature granulocytes (Bld) [#/Vol] 0.06 10*3/uL [facility] Immature granulocytes/100 WBC (Bld) 0.8 % [facility] Comment on above: The IG parameter is the percentage of metamyelocytes, myelocytes and promyelocytes. An immature granulocyte count (IG) of 1% or more suggests the possibility of infection, an IG count of 3% is very likely related to an infection. Interpretation and review of laboratory results Abnormal [facility] Lymphocytes (Bld) [#/Vol] 1.18 10*3/uL [facility] Lymphocytes/100 WBC (Bld) 14.9 % [facility] MCH (RBC) [Entitic mass] 32 pg 26.0 - 34.0 pg [facility] MCHC (RBC) [Mass/Vol] 33.8 g/dL 31.0 - 37.0 g/dL [facility] MCV (RBC) [Entitic vol] 94.7 fL 80.0 - 100.0 fL [facility] Monocytes (Bld) [#/Vol] 1.02 10*3/uL High [facility] Monocytes/100 WBC (Bld) 12.8 % [facility] Neutrophils (Bld) [#/Vol] 5.68 10*3/uL [facility] Neutrophils/100 WBC (Bld) 71.5 % [facility] Nucleated RBC (Bld) [#/Vol] 0 10*3/uL [facility] Nucleated RBC/100 WBC (Bld) [Ratio] 0 % [facility] Platelet mean volume (Bld) [Entitic vol] 10 fL 9.4 - 12.4 fL [facility] Platelets (Bld) [#/Vol] 149 10*3/uL Low [facility] RBC (Bld) [#/Vol] 3.94 10*6/uL Low [facility] WBC (Bld) [#/Vol] 7.94 10*3/uL [facility] CBC WITH AUTO DIFFERENTIALon 04-22-2024 AUTO NRBC 0.0 % [facility] Comment on above: Performed By: #### L [id number] #### [facility] [address], [place] [address] Dallin Donauhe M.D. [id number] AUTO NRBC ABS COUNT 0.00 K/mcL Normal 0.00-0.00 [facility] Comment on above: Performed By: #### L [id number] #### LAB [address] [address] Dallin Donahue M.D. [id number] BASOPHILS ABSOLUTE COUNT 0.00 K/mcL Normal 0.00-0.30 [facility] Comment on above: Performed By: #### L [id number] #### LAB [address] [address] Dallin Donahue M.D. [id number] Basophils/100 WBC (Bld) 0.0 % [facility] Comment on above: Performed By: #### L [id number] #### LAB [address] [address] Dallin Donahue M.D. [id number] Eosinophils (Bld) [#/Vol] 0.00 10*3/uL Normal 0.00-0.50 [facility] Comment on above: Performed By: #### L [id number] #### LAB [address] [address] Dallin Donahue M.D. [id number] Eosinophils/100 WBC (Bld) 0.0 % [facility] Comment on above: Performed By: #### L [id number] #### LAB [address] [place] [address] Dallin Donahue M.D. [id number] Erythrocyte distribution width (RBC) [Ratio] 13.5 % Normal 11.6-14.8 [facility] Comment on above: Performed By: #### L [id number] #### LAB [address] [place] [address] Dallin Donahue M.D. [id number] Hematocrit (Bld) [Volume fraction] 37.3 % Low 41.0-53.0 [facility] Comment on above: Performed By: #### L [id number] #### LAB [address] [place] [address] Dallin Donahue M.D. [id number] Hemoglobin (Bld) [Mass/Vol] 12.6 g/dL Low 13.5-17.5 [facility] Comment on above: Performed By: #### L [id number] #### LAB [address] [address] Dallin Donahue M.D. [id number] IG ABSOLUTE 0.06 K/mcL Normal 0.00-0.30 [facility] Comment on above: Performed By: #### L [id number] #### LAB [address] [address] Dallin Donahue M.D. [id number] IG PERCENT 0.80 % Normal [facility] Comment on above: Result Comment: The IG parameter is the percentage of metamyelocytes, myelocytes and promyelocytes. An immature granulocyte count (IG) of 1% or more suggests the possibility of infection, an IG count of 3% is very likely related to an infection. Performed By: #### L [id number] #### LAB [address] [address] Dallin Donahue M.D. [id number] Lymphocytes (Bld) [#/Vol] 1.18 10*3/uL Normal 0.90-4.00 [facility] Comment on above: Performed By: #### L [id number] #### LAB [address] [address] Dallin Donahue M.D. [id number] Lymphocytes/100 WBC (Bld) 14.9 % Normal [facility] Comment on above: Performed By: #### L [id number] #### LAB [address] [address] Dallin Donahue M.D. [id number] MCH (RBC) [Entitic mass] 32.0 pg Normal 26.0-34.0 [facility] Comment on above: Performed By: #### L [id number] #### LAB [address] [address] Dallin Donahue M.D. [id number] MCV (RBC) [Entitic vol] 94.7 fL Normal 80.0-100.0 [facility] Comment on above: Performed By: #### L [id number] #### LAB [address] [address] Dallin Donahue M.D. [id number] MEAN CORPUSCULAR HEMOGLOBIN CONC 33.8 g/dL Normal 31.0-37.0 [facility] Comment on above: Performed By: #### L [id number] #### LAB [address] [address] Dallin Donahue M.D. [id number] Monocytes (Bld) [#/Vol] 1.02 10*3/uL High 0.30-0.90 [facility] Comment on above: Performed By: #### L [id number] #### LAB [address] [address] Dallin Donahue M.D. [id number] Monocytes/100 WBC (Bld) 12.8 % Normal [facility] Comment on above: Performed By: #### L [id number] #### LAB [address] [address] Dallin Donahue M.D. [id number] NEUTROPHILS ABSOLUTE COUNT 5.68 K/mcL Normal 1.70-7.00 [facility] Comment on above: Performed By: #### L [id number] #### LAB [address] [place] [address] Dallin Donahue M.D. [id number] Neutrophils/100 WBC (Bld) 71.5 % Normal [facility] Comment on above: Performed By: #### L [id number] #### LAB [address] [place] [address] Dallin Donahue M.D. [id number] Platelet mean volume (Bld) [Entitic vol] 10.0 fL Normal 9.4-12.4 [facility] Comment on above: Performed By: #### L [id number] #### LAB [address] [place] [address] Dallin Donahue M.D. [id number] Platelets (Bld) [#/Vol] 149 10*3/uL Low 150-400 [facility] Comment on above: Performed By: #### L [id number] #### [facility] [address] [address] Dallin Donahue M.D. [id number] RBC (Bld) [#/Vol] 3.94 10*6/uL Low 4.50-5.90 [facility] Comment on above: Performed By: #### L [id number] #### [facility] [address] [address] Dallin Donahue M.D. [id number] WBC (Bld) [#/Vol] 7.94 10*3/uL Normal 4.50-11.00 [facility] Comment on above: Performed By: #### L [id number] #### LAB [address] [address] Dallin Donahue M.D. [id number] HEPATIC FUNCTION PANELon Albumin [Mass/Vol] 3.5 g/dL Normal 3.2-5.2 [facility] Comment on above: Performed By: #### L [id number] #### [facility] LAB [address] [address] Dallin Donahue M.D. [id number] ALP [Catalytic activity/Vol] 156 U/L High 40-140 [facility] Comment on above: Performed By: #### L [id number] #### [facility] [address] [address] Dallin Donahue M.D. [id number] ALT [Catalytic activity/Vol] 42 U/L Normal 0-50 U/L [facility] Comment on above: Performed By: #### L [id number] #### [facility] [address] [address] Dallin Donahue M.D. [id number] AST [Catalytic activity/Vol] 73 U/L High 0-50 U/L [facility] Comment on above: Performed By: #### L [id number] #### [facility] LAB [address] [address] Dallin Donahue M.D. [id number] Bilirubin [Mass/Vol] 0.9 mg/dL Normal 0.0-1.3 [facility] [place] Comment on above: Performed By: #### L [id number] #### [facility] [address] [address] Dallin Donahue M.D. [id number] Bilirubin.indirect [Mass/Vol] 0.4 mg/dL Normal 0.0-0.4 [facility] Comment on above: Performed By: #### L [id number] #### [facility] LAB [address] [address] Dallin Donahue M.D. [id number] Protein [Mass/Vol] 6.8 g/dL Normal 6.0-8.0 [facility] Comment on above: Performed By: #### L [id number] #### LAB [address] [address] Dallin Donahue M.D. [id number] Hepatic function 2000 panelo n 04-22-2024 Albumin [Mass/Vol] 3.5 g/dL 3.2 - 5.2 g/dL [facility] ALP [Catalytic activity/Vol] 156 U/L High 40 - 140 U/L [facility] ALT [Catalytic activity/Vol] 42 U/L 0-50 U/L [facility] AST [Catalytic activity/Vol] 73 U/L High 0-50 U/L [facility] Bilirubin [Mass/Vol] 0.9 mg/dL 0.0 - 1 .3 mg/dL [facility] Bilirubin.conjugated [Mass/Vol] 0.4 mg/dL 0.0 - 0.4 mg/dL [facility] Interpretation and review of laboratory results Abnormal [facility] Protein [Mass/Vol] 6.8 g/dL 6.0 - 8.0 g/dL [facility] MAGNESIUM LEVELon 04-22-2024 Magnesium [Mass/Vol] 1.8 mg/dL Normal 1.6-2.4 [facility] [place] Comment on above: Performed By: #### L [id number] #### [facility] LAB [address] [address] Dallin Donahue M.D. [id number] Magnesium Levelon 04-22-2024 Magnesium [Mass/Vol] 1.8 mg/dL 1.6 - 2 .4 mg/dL [facility] Magnesium [Mass/Vol]on 04-22 Interpretation and review of laboratory results Normal [facility] No Panel Informationon 04-22 Interpretation and review of laboratory results Abnormal [facility] PHOSPHORUSon 04-22-2024 Phosphate [Mass/Vol] 1.1 mg/dL Low 2.7-4.5 [facility] [place] Comment on above: Performed By: #### L [id number] #### [facility] LAB [address], [place] [address] Dlalin Donahue M.D. [id number] Phosphoruson 04-22-2024 Phosphate [Mass/Vol] 1.1 mg/dL Low 2.7 - 4 .5 mg/dL [facility] BASIC METABOLIC PANELon Anion gap [Moles/Vol] 18 mmol/L Normal 10-20 [facility] Comment on above: Order Comment: [facility] has implemented the eGFR calculation approach that does not have a coefficient for race that conforms to the NKF-ASN Task Force Recommendations. Performed By: #### L [id number] #### [facility] LAB [address], [place] [address] Dallin Donahue M.D. [id number] Calcium [Mass/Vol] 8.9 mg/dL Normal 8.4-10.2 [facility] Comment on above: Order Comment: [facility] has implemented the eGFR calculation approach that does not have a coefficient for race that conforms to the NKF-ASN Task Force Recommendations. Performed By: #### L [id number] #### [facility] LAB [address], [place] [address] Dallin Donahue M.D. [id number] Chloride [Moles/Vol] 96 mmol/L Low 98-108 [facility] [place] Comment on above: Order Comment: [facility] has implemented the eGFR calculation approach that does not have a coefficient for race that conforms to the NKF-ASN Task Force Recommendations. Performed By: #### L [id number] #### [facility] LAB [address], [place] [address] Dallin Donahue M.D. [id number] Creatinine [Mass/Vol] 0.82 mg/dL Normal 0.50-1.30 [facility] Comment on above: Order Comment: [facility] has implemented the eGFR calculation approach that does not have a coefficient for race that conforms to the NKF-ASN Task Force Recommendations. Performed By: #### L [id number] #### LAB [address] [id number] Dallin Donahue M.D. [id number] EGFR 119 mL/min/1.73 m2 Normal >=60 [facility] Comment on above: Order Comment: [facility] has implemented the eGFR calculation approach that does not have a coefficient for race that conforms to the NKF-ASN Task Force Recommendations. Result Comment: Karoline mated GFR was calculated using the 2020 CKD-EPI creatinine equation. Performed By: #### L [id number] #### [facility] [address] [address] Dallin Donahue M.D. [id number] Glucose [Mass/Vol] 65 mg/dL Normal 65-99 [facility] Comment on above: Order Comment: [facility] has implemented the eGFR calculation approach that does not have a coefficient for race that conforms to the NKF-ASN Task Force Recommendations. Performed By: #### L [id number] #### [facility] LAB [address] [address] Dallin Donahue M.D. [id number] HCO3 (Bld) [Moles/Vol] 20 mmol/L Low 21-32 [facility] Comment on above: Order Comment: [facility] has implemented the eGFR calculation approach that does not have a coefficient for race that conforms to the NKF-ASN Task Force Recommendations. Performed By: #### L [id number] #### [facility] LAB [address] [address] Dallin Donahue M.D. [id number] Potassium [Moles/Vol] 4.3 mmol/L Normal 3.5-5.1 [facility] Comment on above: Order Comment: [facility] has implemented the eGFR calculation approach that does not have a coefficient for race that conforms to the NKF-ASN Task Force Recommendations. Result Comment: Slanali htly Hemolyzed Performed By: #### L [id number] #### [facility] [address], [place] [address] Dallin Donahue M.D. [id number] Sodium [Moles/Vol] 130 mmol/L Low 135-145 [facility] Comment on above: Order Comment: [facility] has implemented the eGFR calculation approach that does not have a coefficient for race that conforms to the NKF-ASN Task Force Recommendations. Performed By: #### L [id number] #### [facility] LAB [address], [place] [address] Dallin Donahue M.D. [id number] Urea nitrogen [Mass/Vol] 8 mg/dL Normal 8-25 [facility] Comment on above: Order Comment: [facility] has implemented the eGFR calculation approach that does not have a coefficient for race that conforms to the NKF-ASN Task Force Recommendations. Performed By: #### L [id number] #### LAB [address] [address] Dallin Donahue M.D. [id number] Urea nitrogen/Creatinine [Mass ratio] 9.8 mg/mg Low 10.0-20.0 [facility] Comment on above: Order Comment: [facility] has implemented the eGFR calculation approach that does not have a coefficient for race that conforms to the NKF-ASN Task Force Recommendations. Performed By: #### L [id number] #### [facility] [address], [place] [address] Dallin Donahue M.D. [id number] Basic metabolic 2000 panelOr dered By: Darlene Akins on 04-21-2024 Anion gap [Moles/Vol] 18 mmol/L 10 - 2 0 mmol/L [facility] Calcium [Mass/Vol] 8.9 mg/dL 8.4 - 10. 2 mg/dL [facility] Chloride [Moles/Vol] 96 mmol/L Low 98 - 10 8 mmol/L [facility] Creatinine [Mass/Vol] 0.82 mg/dL 0.50 - 1.30 mg/dL [facility] GFR/1.73 sq M.predicted CKD-EPI (S/P/Bld) [Vol rate/Area] 119 - PINF [facility] Comment on above: Estimated GFR was ca lculated using the 2020 CKD-EPI creatinine equation. Glucose [Mass/Vol] 65 mg/dL 65 - 99 mg/dL [facility] HCO3 [Moles/Vol] 20 mmol/L Low 21 - 32 mmol/L [facility] Potassium [Moles/Vol] 4.3 mmol/L 3.5 - 5.1 mmol/L [facility] Comment on above: Slightly Hemolyzed Sodium [Moles/Vol] 130 mmol/L Low 135 - 145 mmol/L [facility] Urea nitrogen [Mass/Vol] 8 mg/dL 8 - 25 mg/dL [facility] Urea nitrogen/Creatinine [Mass ratio] 9.8 mg/mg Low 10.0 - 20.0 [facility] has implemented the eGFR calculation approach that does not have a coefficient for race that conforms to the NKF-ASN Task Force Recommendations. [facility] CBC Auto Differentialon 11-0 Basophils (Bld) [#/Vol] 0.01 10*3/uL [facility] Basophils/100 WBC (Bld) 0.1 % [facility] Eosinophils (Bld) [#/Vol] 0 10*3/uL [facility] Eosinophils/100 WBC (Bld) 0 % [facility] Erythrocyte distribution width (RBC) [Entitic vol] 13.4 % 11.6 - 14.8 % [facility] Hematocrit (Bld) [Volume fraction] 45.3 % 41.0 - 53.0 % [facility] Hemoglobin (Bld) [Mass/Vol] 15.6 g/dL 13.5 - 17.5 g/dL [facility] Immature granulocytes (Bld) [#/Vol] 0.07 10*3/uL [facility] Immature granulocytes/100 WBC (Bld) 0.7 % [facility] Comment on above: The IG parameter is the percentage of metamyelocytes, myelocytes and promyelocytes. An immature granulocyte count (IG) of 1% or more suggests the possibility of infection, an IG count of 3% is very likely related to an infection. Interpretation and review of laboratory results Abnormal [facility] Lymphocytes (Bld) [#/Vol] 0.65 10*3/uL Low [facility] Lymphocytes/100 WBC (Bld) 6.5 % [facility] MCH (RBC) [Entitic mass] 33.4 pg 26.0 - 34.0 pg [facility] MCHC (RBC) [Mass/Vol] 34.4 g/dL 31.0 - 37.0 g/dL [facility] MCV (RBC) [Entitic vol] 97 fL 80.0 - 100.0 fL [facility] Monocytes (Bld) [#/Vol] 0.82 10*3/uL [facility] Monocytes/100 WBC (Bld) 8.2 % [facility] Neutrophils (Bld) [#/Vol] 8.46 10*3/uL High [facility] Neutrophils/100 WBC (Bld) 84.5 % [facility] Nucleated RBC (Bld) [#/Vol] 0 10*3/uL [facility] Nucleated RBC/100 WBC (Bld) [Ratio] 0 % [facility] Platelet mean volume (Bld) [Entitic vol] 10.4 fL 9.4 - 12.4 fL [facility] Platelets (Bld) [#/Vol] 149 10*3/uL Low [facility] RBC (Bld) [#/Vol] 4.67 10*6/uL [facility] W[facility] (Bld) [#/Vol] 10.01 10*3/uL [facility] CBC WITH AUTO DIFFERENTIALon 04-21-2024 AUTO NRBC 0.0 % Normal [facility] Comment on above: Performed By: #### L [id number] #### LAB [address] [address] Dallin Donahue M.D. [id number] AUTO NRBC ABS COUNT 0.00 K/mcL Normal 0.00-0.00 [facility] Comment on above: Performed By: #### L [id number] #### LAB [address] [address] Dallin Donahue M.D. [id number] BASOPHILS ABSOLUTE COUNT 0.01 K/mcL Normal 0.00-0.30 [facility] Comment on above: Performed By: #### L [id number] #### LAB [address] [address] Dallin Donahue M.D. [id number] Basophils/100 WBC (Bld) 0.1 % Normal [facility] Comment on above: Performed By: #### L [id number] #### LAB [address] [address] Dallin Donahue M.D. [id number] Eosinophils (Bld) [#/Vol] 0.00 10*3/uL Normal 0.00-0.50 [facility] Comment on above: Performed By: #### L [id number] #### LAB [address] [address] Dallin Donahue M.D. [id number] Eosinophils/100 WBC (Bld) 0.0 % Normal [facility] Comment on above: Performed By: #### L [id number] #### LAB [address] [address] Dallin Donahue M.D. [id number] Erythrocyte distribution width (RBC) [Ratio] 13.4 % Normal 11.6-14.8 [facility] Comment on above: Performed By: #### L [id number] #### LAB [address] [address] Dallin Donahue M.D. [id number] Hematocrit (Bld) [Volume fraction] 45.3 % Normal 41.0-53.0 [facility] Comment on above: Performed By: #### L [id number] #### LAB [address] [address] Dallin Donahue M.D. [id number] Hemoglobin (Bld) [Mass/Vol] 15.6 g/dL Normal 13.5-17.5 [facility] Comment on above: Performed By: #### L [id number] #### LAB [address] [address] Dallin Donahue M.D. [id number] IG ABSOLUTE 0.07 K/mcL Normal 0.00-0.30 [facility] Comment on above: Performed By: #### L [id number] #### LAB [address] [address] Dallin Donahue M.D. [id number] IG PERCENT 0.70 % Normal [facility] Comment on above: Result Comment: The IG parameter is the percentage of metamyelocytes, myelocytes and promyelocytes. An immature granulocyte count (IG) of 1% or more suggests the possibility of infection, an IG count of 3% is very likely related to an infection. Performed By: #### L [id number] #### LAB [address] [place] [address] Dallin Donahue M.D. [id number] Lymphocytes (Bld) [#/Vol] 0.65 10*3/uL Low 0.90-4.00 [facility] Comment on above: Performed By: #### L [id number] #### LAB [address] [place] [address] Dallin Donahue M.D. [id number] Lymphocytes/100 WBC (Bld) 6.5 % Normal [facility] Comment on above: Performed By: #### L [id number] #### LAB [address] [address] Dallin Donahue M.D. [id number] MCH (RBC) [Entitic mass] 33.4 pg Normal 26.0-34.0 [facility] Comment on above: Performed By: #### L [id number] #### LAB [address] [place] [address] Dallin Donahue M.D. [id number] MCV (RBC) [Entitic vol] 97.0 fL Normal 80.0-100.0 [facility] Comment on above: Performed By: #### L [id number] #### LAB [address] [address] Dallin Donahue M.D. [id number] MEAN CORPUSCULAR HEMOGLOBIN CONC 34.4 g/dL Normal 31.0-37.0 [facility] Comment on above: Performed By: #### L [id number] #### LAB [address] [place] [address] Dallin Donahue M.D. [id number] Monocytes (Bld) [#/Vol] 0.82 10*3/uL Normal 0.30-0.90 [facility] Comment on above: Performed By: #### L [id number] #### LAB [address] [address] Dallin Donahue M.D. [id number] Monocytes/100 WBC (Bld) 8.2 % Normal [facility] Comment on above: Performed By: #### L [id number] #### LAB [address] [address] Dallin Donahue M.D. [id number] NEUTROPHILS ABSOLUTE COUNT 8.46 K/mcL High 1.70-7.00 [facility] Comment on above: Performed By: #### L [id number] #### LAB [address] [address] Dallin Donahue M.D. [id number] Neutrophils/100 WBC (Bld) 84.5 % Normal [facility] Comment on above: Performed By: #### L [id number] #### LAB [address] [address] Dallin Donahue M.D. [id number] Platelet mean volume (Bld) [Entitic vol] 10.4 fL Normal 9.4-12.4 [facility] Comment on above: Performed By: #### L [id number] #### LAB [address] [address] Dallin Donahue M.D. [id number] Platelets (Bld) [#/Vol] 149 10*3/uL Low 150-400 [facility] Comment on above: Performed By: #### L [id number] #### LAB [address] [address] Dallin Donahue M.D. [id number] RBC (Bld) [#/Vol] 4.67 10*6/uL Normal 4.50-5.90 [facility] Comment on above: Performed By: #### L [id number] #### LAB [address] [address] Dallin Donahue M.D. [id number] WBC (Bld) [#/Vol] 10.01 10*3/uL Normal 4.50-11.00 [facility] [place] Comment on above: Performed By: #### L [id number] #### MH LAB [address], [place] [address] Dallin Donah[address] M.D. [id number] CT ABDOMEN PELVIS WITH CONTR [place] 04-21-2024 [...] SatApr 21, 2024 2:17:08 PM EST Normal [facility] Comment on above: Order Comment: Injur y/Trauma [...] infiltration of the liver. Workstation ID: [id number] [facility] Radiology Study observation (narrative) [facility] CT Abdomen and Pelvis W cont rast IVOrdered By: Pierre Mulligan on 04-21-2024 [facility] Work Phone: HEPATIC FUNCTION PANELon Albumin [Mass/Vol] 3.8 g/dL Normal 3.2-5.2 [facility] Comment on above: Performed By: #### L [id number] #### MH LAB [address] [address] Dallin Donahue M.D. [id number] ALP [Catalytic activity/Vol] 212 U/L High 40-140 [facility] Comment on above: Performed By: #### L [id number] #### MH LAB [address] [address] Dallin Donahue M.D. [id number] ALT [Catalytic activity/Vol] 71 U/L High 0-50 U/L [facility] Comment on above: Performed By: #### L [id number] #### MH LAB [address] [address] Dallin Donahue M.D. [id number] AST [Catalytic activity/Vol] 134 U/L High 0-50 U/L [facility] Comment on above: Result Comment: Slig htly Hemolyzed Performed By: #### L [id number] #### MH LAB [address] [address] Dallin Donahue M.D. [id number] Bilirubin [Mass/Vol] 1.5 mg/dL High 0.0-1.3 [facility] [place] Comment on above: Performed By: #### L [id number] #### MH LAB [address], [place] [address] Dallin Donahue M.D. [id number] Bilirubin.indirect [Mass/Vol] 0.6 mg/dL High 0.0-0.4 [facility] Comment on above: Performed By: #### L [id number] #### MH LAB [address], [place] [address] Dallin Donahue M.D. [id number] Protein [Mass/Vol] 7.6 g/dL Normal 6.0-8.0 [facility] Comment on above: Performed By: #### L [id number] #### LAB [address], [place] [address] Dallin Donahue M.D. [id number] Hepatic function 2000 panelo n 04-21-2024 Albumin [Mass/Vol] 3.8 g/dL 3.2 - 5.2 g/dL [facility] ALP [Catalytic activity/Vol] 212 U/L High 40 - 140 U/L [facility] ALT [Catalytic activity/Vol] 71 U/L High 0-50 U/L [facility] AST [Catalytic activity/Vol] 134 U/L High 0-50 U/L [facility] Comment on above: Slightly Hemolyzed Bilirubin [Mass/Vol] 1.5 mg/dL High 0.0 - 1 .3 mg/dL [facility] Bilirubin.conjugated [Mass/Vol] 0.6 mg/dL High 0.0 - 0.4 mg/dL [facility] Interpretation and review of laboratory results Abnormal [facility] Protein [Mass/Vol] 7.6 g/dL 6.0 - 8.0 g/dL [facility] MAGNESIUM LEVELon 04-21-2024 Magnesium [Mass/Vol] 1.8 mg/dL Normal 1.6-2.4 [facility] [place] Comment on above: Performed By: #### L [id number] #### MH LAB [address], [place] [address] Dallin Donahue M.D. [id number] Magnesium Levelon 04-21-2024 Magnesium [Mass/Vol] 1.8 mg/dL 1.6 - 2 .4 mg/dL [facility] Magnesium [Mass/Vol]on 04-21 Interpretation and review of laboratory results Normal [facility] No Panel InformationOrdered By: Darlene Akins on 04-21-2024 Interpretation and review of laboratory results Abnormal [facility] PHOSPHORUSon 04-21-2024 Phosphate [Mass/Vol] 2.6 mg/dL Low 2.7-4.5 [facility] [place] Comment on above: Performed By: #### L [id number] #### MH LAB [address] [address] Dallin Donahue M.D. [id number] Phosphoruson 04-21-2024 Phosphate [Mass/Vol] 2.6 mg/dL Low 2.7 - 4 .5 mg/dL [facility] BASIC METABOLIC PANELon Anion gap [Moles/Vol] 17 mmol/L Normal 10-20 [facility] Comment on above: Order Comment: [facility] has implemented the eGFR calculation approach that does not have a coefficient for race that conforms to the NKF-ASN Task Force Recommendations. Performed By: #### L [id number] #### MH LAB [address] [address] Dallin Donahue M.D. [id number] Calcium [Mass/Vol] 8.8 mg/dL Normal 8.4-10.2 [facility] Comment on above: Order Comment: [facility] has implemented the eGFR calculation approach that does not have a coefficient for race that conforms to the NKF-ASN Task Force Recommendations. Performed By: #### L [id number] #### MH LAB [address] [address] Dallin Donahue M.D. [id number] Chloride [Moles/Vol] 99 mmol/L Normal 98-108 [facility] [place] Comment on above: Order Comment: [facility] has implemented the eGFR calculation approach that does not have a coefficient for race that conforms to the NKF-ASN Task Force Recommendations. Performed By: #### L [id number] #### MH LAB [address] [id number] Dallin Donahue M.D. [id number] Creatinine [Mass/Vol] 0.87 mg/dL Normal 0.50-1.30 [facility] Comment on above: Order Comment: [facility] has implemented the eGFR calculation approach that does not have a coefficient for race that conforms to the NKF-ASN Task Force Recommendations. Performed By: #### L [id number] #### LAB [address], [place] [address] Dallin Donahue M.D. [id number] EGFR 117 mL/min/1.73 m2 Normal >=60 [facility] Comment on above: Order Comment: [facility] has implemented the eGFR calculation approach that does not have a coefficient for race that conforms to the NKF-ASN Task Force Recommendations. Result Comment: Karoline mated GFR was calculated using the 2020 CKD-EPI creatinine equation. Performed By: #### L [id number] #### MH LAB [address] [address] Dallin Donahue M.D. [id number] Glucose [Mass/Vol] 72 mg/dL Normal 65-99 [facility] Comment on above: Order Comment: [facility] has implemented the eGFR calculation approach that does not have a coefficient for race that conforms to the NKF-ASN Task Force Recommendations. Performed By: #### L [id number] #### MH LAB [address] [address] Dallin Donahue M.D. [id number] HCO3 (Bld) [Moles/Vol] 23 mmol/L Normal 21-32 [facility] Comment on above: Order Comment: [facility] has implemented the eGFR calculation approach that does not have a coefficient for race that conforms to the NKF-ASN Task Force Recommendations. Performed By: #### L [id number] #### MH LAB [address] [address] Dallin Donahue M.D. [id number] Potassium [Moles/Vol] 3.8 mmol/L Normal 3.5-5.1 [facility] Comment on above: Order Comment: [facility] has implemented the eGFR calculation approach that does not have a coefficient for race that conforms to the NKF-ASN Task Force Recommendations. Performed By: #### L [id number] #### MH LAB [address], [place] [address] Dallin Donahue M.D. [id number] Sodium [Moles/Vol] 135 mmol/L Normal 135-145 [facility] Comment on above: Order Comment: [facility] has implemented the eGFR calculation approach that does not have a coefficient for race that conforms to the NKF-ASN Task Force Recommendations. Performed By: #### L [id number] #### MH LAB [address], [place] [address] Dallin Donahue M.D. [id number] Urea nitrogen [Mass/Vol] 6 mg/dL Low 8-25 [facility] Comment on above: Order Comment: [facility] has implemented the eGFR calculation approach that does not have a coefficient for race that conforms to the NKF-ASN Task Force Recommendations. Performed By: #### L [id number] #### LAB [address] [address] Dallin Donahue M.D. [id number] Urea nitrogen/Creatinine [Mass ratio] 6.9 mg/mg Low 10.0-20.0 [facility] Comment on above: Order Comment: [facility] has implemented the eGFR calculation approach that does not have a coefficient for race that conforms to the NKF-ASN Task Force Recommendations. Performed By: #### L [id number] #### MH LAB [address], [place] [address] Dallin Donahue M.D. [id number] Basic metabolic 2000 panelon 04-20-2024 Anion gap [Moles/Vol] 17 mmol/L 10 - 2 0 mmol/L [facility] Calcium [Mass/Vol] 8.8 mg/dL 8.4 - 10. 2 mg/dL [facility] Chloride [Moles/Vol] 99 mmol/L 98 - 10 8 mmol/L [facility] Creatinine [Mass/Vol] 0.87 mg/dL 0.50 - 1.30 mg/dL [facility] GFR/1.73 sq M.predicted CKD-EPI (S/P/Bld) [Vol rate/Area] 117 - PINF [facility] Comment on above: Estimated GFR was ca lculated using the 2020 CKD-EPI creatinine equation. Glucose [Mass/Vol] 72 mg/dL 65 - 99 mg/dL [facility] HCO3 [Moles/Vol] 23 mmol/L 21 - 32 mmol/L [facility] Potassium [Moles/Vol] 3.8 mmol/L 3.5 - 5.1 mmol/L [facility] Sodium [Moles/Vol] 135 mmol/L 135 - 145 mmol/L [facility] Urea nitrogen [Mass/Vol] 6 mg/dL Low 8 - 25 mg/dL [facility] Urea nitrogen/Creatinine [Mass ratio] 6.9 mg/mg Low 10.0 - 20.0 [facility] has implemented the eGFR calculation approach that does not have a coefficient for race that conforms to the NKF-ASN Task Force Recommendations. [facility] CBC Auto Differentialon 11-0 Basophils (Bld) [#/Vol] 0.01 10*3/uL [facility] Basophils/100 WBC (Bld) 0.1 % [facility] Eosinophils (Bld) [#/Vol] 0 10*3/uL [facility] Eosinophils/100 WBC (Bld) 0 % [facility] Erythrocyte distribution width (RBC) [Entitic vol] 13.7 % 11.6 - 14.8 % [facility] Hematocrit (Bld) [Volume fraction] 46.5 % 41.0 - 53.0 % [facility] Hemoglobin (Bld) [Mass/Vol] 15.8 g/dL 13.5 - 17.5 g/dL [facility] Immature granulocytes (Bld) [#/Vol] 0.03 10*3/uL [facility] Immature granulocytes/100 WBC (Bld) 0.3 % [facility] Comment on above: The IG parameter is the percentage of metamyelocytes, myelocytes and promyelocytes. An immature granulocyte count (IG) of 1% or more suggests the possibility of infection, an IG count of 3% is very likely related to an infection. Interpretation and review of laboratory results Abnormal [facility] Lymphocytes (Bld) [#/Vol] 0.86 10*3/uL Low [facility] Lymphocytes/100 WBC (Bld) 9.8 % [facility] MCH (RBC) [Entitic mass] 32.1 pg 26.0 - 34.0 pg [facility] MCHC (RBC) [Mass/Vol] 34 g/dL 31.0 - 37.0 g/dL [facility] MCV (RBC) [Entitic vol] 94.5 fL 80.0 - 100.0 fL [facility] Monocytes (Bld) [#/Vol] 0.72 10*3/uL [facility] Monocytes/100 WBC (Bld) 8.2 % [facility] Neutrophils (Bld) [#/Vol] 7.19 10*3/uL High [facility] Neutrophils/100 WBC (Bld) 81.6 % [facility] Nucleated RBC (Bld) [#/Vol] 0 10*3/uL [facility] Nucleated RBC/100 WBC (Bld) [Ratio] 0 % [facility] Platelet mean volume (Bld) [Entitic vol] 9.8 fL 9.4 - 12.4 fL [facility] Platelets (Bld) [#/Vol] 169 10*3/uL [facility] RBC (Bld) [#/Vol] 4.92 10*6/uL [facility] WBC (Bld) [#/Vol] 8.81 10*3/uL [facility] WITH AUTO DIFFERENTIALon 04-20-2024 AUTO NRBC 0.0 % [facility] Comment on above: Performed By: #### L [id number] #### LAB [address] [address] Dallin Donahue M.D. [id number] AUTO NRBC ABS COUNT 0.00 K/mcL Normal 0.00-0.00 [facility] Comment on above: Performed By: #### L [id number] #### MH LAB [address] [address] Dallin Donahue M.D. [id number] BASOPHILS ABSOLUTE COUNT 0.01 K/mcL Normal 0.00-0.30 [facility] Comment on above: Performed By: #### L [id number] #### MH LAB [address] [address] Dallin Donahue M.D. [id number] Basophils/100 WBC (Bld) 0.1 % [facility] Comment on above: Performed By: #### L [id number] #### MH LAB [address] [address] Dallin Donahue M.D. [id number] Eosinophils (Bld) [#/Vol] 0.00 10*3/uL Normal 0.00-0.50 [facility] Comment on above: Performed By: #### L [id number] #### LAB [address] [address] Dallin Donahue M.D. [id number] Eosinophils/100 WBC (Bld) 0.0 % Normal [facility] Comment on above: Performed By: #### L [id number] #### LAB [address] [address] Dallin Donahue M.D. [id number] Erythrocyte distribution width (RBC) [Ratio] 13.7 % Normal 11.6-14.8 [facility] Comment on above: Performed By: #### L [id number] #### LAB [address] [address] Dallin Donahue M.D. [id number] Hematocrit (Bld) [Volume fraction] 46.5 % Normal 41.0-53.0 [facility] Comment on above: Performed By: #### L [id number] #### LAB [address] [address] Dallin Donahue M.D. [id number] Hemoglobin (Bld) [Mass/Vol] 15.8 g/dL Normal 13.5-17.5 [facility] Comment on above: Performed By: #### L [id number] #### LAB [address] [address] Dallin Donahue M.D. [id number] IG ABSOLUTE 0.03 K/mcL Normal 0.00-0.30 [facility] Comment on above: Performed By: #### L [id number] #### LAB [address] [address] Dallin Donahue M.D. [id number] IG PERCENT 0.30 % Normal [facility] Comment on above: Result Comment: The IG parameter is the percentage of metamyelocytes, myelocytes and promyelocytes. An immature granulocyte count (IG) of 1% or more suggests the possibility of infection, an IG count of 3% is very likely related to an infection. Performed By: #### L [id number] #### LAB [address] [place] [address] Dallin Donahue M.D. [id number] Lymphocytes (Bld) [#/Vol] 0.86 10*3/uL Low 0.90-4.00 [facility] Comment on above: Performed By: #### L [id number] #### LAB [address] [address] Dallin Donahue M.D. [id number] Lymphocytes/100 WBC (Bld) 9.8 % Normal [facility] Comment on above: Performed By: #### L [id number] #### LAB [address] [place] [address] Dallin Donahue M.D. [id number] MCH (RBC) [Entitic mass] 32.1 pg Normal 26.0-34.0 [facility] Comment on above: Performed By: #### L [id number] #### LAB [address] [place] [address] Dallin Donahue M.D. [id number] MCV (RBC) [Entitic vol] 94.5 fL Normal 80.0-100.0 [facility] Comment on above: Performed By: #### L [id number] #### LAB [address] [place] [address] Dallin Donahue M.D. [id number] MEAN CORPUSCULAR HEMOGLOBIN CONC 34.0 g/dL Normal 31.0-37.0 [facility] Comment on above: Performed By: #### L [id number] #### LAB [address] [place] [address] Dallin Donahue M.D. [id number] Monocytes (Bld) [#/Vol] 0.72 10*3/uL Normal 0.30-0.90 [facility] Comment on above: Performed By: #### L [id number] #### LAB [address] [address] Dallin Donahue M.D. [id number] Monocytes/100 WBC (Bld) 8.2 % Normal [facility] Comment on above: Performed By: #### L [id number] #### LAB [address] [address] Dallin Donahue M.D. [id number] NEUTROPHILS ABSOLUTE COUNT 7.19 K/mcL High 1.70-7.00 [facility] Comment on above: Performed By: #### L [id number] #### LAB [address] [address] Dallin Donahue M.D. [id number] Neutrophils/100 WBC (Bld) 81.6 % Normal [facility] Comment on above: Performed By: #### L [id number] #### LAB [address] [address] Dallin Donahue M.D. [id number] Platelet mean volume (Bld) [Entitic vol] 9.8 fL Normal 9.4-12.4 [facility] Comment on above: Performed By: #### L [id number] #### LAB [address] [address] Dallin Donahue M.D. [id number] Platelets (Bld) [#/Vol] 169 10*3/uL Normal 150-400 [facility] Comment on above: Performed By: #### L [id number] #### LAB [address] [address] Dallin Donahue M.D. [id number] RBC (Bld) [#/Vol] 4.92 10*6/uL Normal 4.50-5.90 [facility] Comment on above: Performed By: #### L [id number] #### LAB [address] [address] Dallin Donahue M.D. [id number] WBC (Bld) [#/Vol] 8.81 10*3/uL Normal 4.50-11.00 [facility] Comment on above: Performed By: #### L [id number] #### LAB [address] [address] Dallin Donahue M.D. [id number] HEPATIC FUNCTION PANELon Albumin [Mass/Vol] 4.2 g/dL Normal 3.2-5.2 [facility] Comment on above: Performed By: #### L [id number] #### LAB [address] [address] Dallin Donahue M.D. [id number] ALP [Catalytic activity/Vol] 250 U/L High 40-140 [facility] Comment on above: Performed By: #### L [id number] #### LAB [address] [address] Dallin Donahue M.D. [id number] ALT [Catalytic activity/Vol] 103 U/L High 0-50 U/L [facility] Comment on above: Performed By: #### L [id number] #### LAB [address] [address] Dallin Donahue M.D. [id number] AST [Catalytic activity/Vol] 227 U/L High 0-50 U/L [facility] Comment on above: Result Comment: Slig htly Hemolyzed Performed By: #### L [id number] #### LAB [address] [address] Dallin Donahue M.D. [id number] Bilirubin [Mass/Vol] 1.5 mg/dL High 0.0-1.3 [facility] [place] Comment on above: Performed By: #### L [id number] #### LAB [address] [address] Dallin Donahue M.D. [id number] Bilirubin.indirect [Mass/Vol] 0.6 mg/dL High 0.0-0.4 [facility] Comment on above: Performed By: #### L [id number] #### LAB [address] [address] Dallin Donahue M.D. [id number] Protein [Mass/Vol] 7.7 g/dL Normal 6.0-8.0 [facility] Comment on above: Performed By: #### L [id number] #### LAB [address], [place] [address] Dallin Donahue M.D. [id number] Hepatic function 2000 panelO rdered By: Julieth Olivarez on 04-20-2024 Albumin [Mass/Vol] 4.2 g/dL 3.2 - 5.2 g/dL [facility] ALP [Catalytic activity/Vol] 250 U/L High 40 - 140 U/L [facility] ALT [Catalytic activity/Vol] 103 U/L High 0-50 U/L [facility] AST [Catalytic activity/Vol] 227 U/L High 0-50 U/L [facility] Comment on above: Slightly Hemolyzed Bilirubin [Mass/Vol] 1.5 mg/dL High 0.0 - 1 .3 mg/dL [facility] Bilirubin.conjugated [Mass/Vol] 0.6 mg/dL High 0.0 - 0.4 mg/dL [facility] Interpretation and review of laboratory results Abnormal [facility] Protein [Mass/Vol] 7.7 g/dL 6.0 - 8.0 g/dL [facility] MAGNESIUM LEVELon 04-20-2024 Magnesium [Mass/Vol] 2.2 mg/dL Normal 1.6-2.4 [facility] [place] Comment on above: Performed By: #### L [id number] #### LAB [address], [place] [address] Dallin Donahue M.D. [id number] Magnesium Levelon 04-20-2024 Magnesium [Mass/Vol] 2.2 mg/dL 1.6 - 2 .4 mg/dL [facility] Magnesium [Mass/Vol]on 04-20 Interpretation and review of laboratory results Normal [facility] No Panel Informationon 04-20 Interpretation and review of laboratory results Abnormal [facility] PHOSPHORUSon 04-20-2024 Phosphate [Mass/Vol] 2.0 mg/dL Low 2.7-4.5 [facility] [place] Comment on above: Performed By: #### 4 [id number] #### LAB [address] [address] Dallin Donahue M.D. [id number] Phosphoruson 04-20-2024 Phosphate [Mass/Vol] 2 mg/dL Low 2.7 - 4 .5 mg/dL [facility] ALCOHOLon 04-19-2024 Ethanol [Mass/Vol] 105 mg/dL High 0-10 [facility] Comment on above: Result Comment: INTOXICATION >80 MG/DL FATAL >400 MG/DL Testing performed at [place] [address] Performed By: #### A IVETO #### [place] [address] ALCOHOL (ETHANOL),BLOODon Ethanol [Mass/Vol] 105 mg/dL High [facility] Comment on above: INTOXICATION >80 MG/DL FATAL >400 MG/DL Testing performed at [place] [address] Interpretation and review of laboratory results Abnormal [facility] CBCon 04-19-2024 ABSOLUTE BAS 0.0 10*3/uL Normal 0.0-0.2 [facility] Comment on above: Result Comment: Test ing performed at [address] [place] [address] Performed By: #### C HEM7F, ACBC, LIVR, LIPA2 #### [place] [address] ABSOLUTE EOS 0.0 10*3/uL Normal 0.0-0.7 [facility] Comment on above: Performed By: #### C HEM7F, ACBC, LIVR, LIPA2 #### [place] [address] ABSOLUTE NEUTROPHIL COUNT 7.6 10*3/uL High 1.4-6.5 [facility] Comment on above: Performed By: #### C HEM7F, ACBC, LIVR, LIPA2 #### [place] [address] Basophils/100 WBC (Bld) 0.3 % Normal 0.0-2.0 [facility] Comment on above: Performed By: #### C HEM7F, ACBC, LIVR, LIPA2 #### Testing performed at [address] [address] DTYPE AUTO DIFF Normal [facility] Comment on above: Performed By: #### C HEM7F, ACBC, LIVR, LIPA2 #### Testing performed at [address] [address] Eosinophils/100 WBC (Bld) 0.1 % Normal 0.0-11.0 [facility] Comment on above: Performed By: #### C HEM7F, ACBC, LIVR, LIPA2 #### [place] [address] Lymphocytes (Bld) [#/Vol] 1.5 10*3/uL Normal 1.2-3.4 [facility] Comment on above: Performed By: #### C HEM7F, ACBC, LIVR, LIPA2 #### [place] [address] Lymphocytes/100 WBC (Bld) 14.8 % Low 20.0-55.0 [facility] Comment on above: Performed By: #### C HEM7F, ACBC, LIVR, LIPA2 #### Testing performed at [place] [id number] Monocytes (Bld) [#/Vol] 1.0 10*3/uL High 0.0-0.7 [facility] Comment on above: Performed By: #### C HEM7F, ACBC, LIVR, LIPA2 #### Testing performed at [place] [id number] Monocytes/100 WBC (Bld) 9.6 % Normal 0.0-10.0 [facility] Comment on above: Performed By: #### C HEM7F, ACBC, LIVR, LIPA2 #### Testing performed at [address] [address] Neutrophils/100 WBC (Bld) 75.2 % High 37.0-75.0 [facility] Comment on above: Performed By: #### C HEM7F, ACBC, LIVR, LIPA2 #### [place] [address] Erythrocyte distribution width (RBC) [Ratio] 15.7 % High 11.5-14.5 [facility] Comment on above: Performed By: #### C HEM7F, ACBC, LIVR, LIPA2 #### [place] [address] Hematocrit (Bld) [Volume fraction] 45.8 % Normal 42.0-52.0 [facility] Comment on above: Performed By: #### C HEM7F, ACBC, LIVR, LIPA2 #### [place] [address] Hemoglobin (Bld) [Mass/Vol] 15.6 g/dL Normal 14.0-18.0 [facility] Comment on above: Performed By: #### C HEM7F, ACBC, LIVR, LIPA2 #### [place] [address] MCH (RBC) [Entitic mass] 33.5 pg Normal 26.0-35.0 [facility] Comment on above: Performed By: #### C HEM7F, ACBC, LIVR, LIPA2 #### [place] [address] MCHC (RBC) [Mass/Vol] 34.0 g/dL Normal 27.0-37.0 [facility] Comment on above: Performed By: #### C HEM7F, ACBC, LIVR, LIPA2 #### [place] [address] MCV (RBC) [Entitic vol] 98.5 fL Normal 80.0-100.0 [facility] Comment on above: Performed By: #### C HEM7F, ACBC, LIVR, LIPA2 #### [place] [address] Platelet mean volume (Bld) [Entitic vol] 7.5 fL Normal 7.4-11.0 [facility] Comment on above: Performed By: #### C HEM7F, ACBC, LIVR, LIPA2 #### Testing performed at [address] [address] Platelets (Bld) [#/Vol] 233 10*3/uL Normal 130-400 [facility] Comment on above: Performed By: #### C HEM7F, ACBC, LIVR, LIPA2 #### Testing performed at [place] [id number] RBC (Bld) [#/Vol] 4.65 10*6/uL Normal 4.0-6.1 [facility] Comment on above: Performed By: #### C HEM7F, ACBC, LIVR, LIPA2 #### Testing performed at [address] [address] WBC (Bld) [#/Vol] 10.1 10*3/uL Normal 3.6-11.0 [facility] Comment on above: Performed By: #### C HEM7F, ACBC, LIVR, LIPA2 #### Testing performed at [address] [address] CBC, EDIF, PLATELETon 2023 ABSOLUTE BASOPHIL COUNT 0.0 10*3/uL 0.0 - 0.2 10*3/uL [facility] Comment on above: Testing performed at [place], [place] [address] Basophils/100 WBC (Bld) 0.3 % 0.0 - 2.0 % [facility] Differential cell count method Nom (Bld) AUTO DIFF % [facility] Eosinophils (Bld) [#/Vol] 0.0 10*3/uL 0.0 - 0.7 10*3/uL [facility] Eosinophils/100 WBC (Bld) 0.1 % 0.0 - 11.0 % [facility] Erythrocyte distribution width (RBC) [Ratio] 15.7 % High 11.5 - 14.5 % [facility] Hematocrit (Bld) [Volume fraction] 45.8 % 42.0 - 52.0 % [facility] Hemoglobin (Bld) [Mass/Vol] 15.6 g/dL [facility] Interpretation and review of laboratory results Abnormal [facility] Lymphocytes (Bld) [#/Vol] 1.5 10*3/uL 1.2 - 3.4 10*3/uL [facility] Lymphocytes/100 WBC (Bld) 14.8 % Low 20.0 - 55.0 % [facility] MCH (RBC) [Entitic mass] 33.5 pg 26.0 - 35.[address] [facility] MCHC (RBC) [Mass/Vol] 34.0 g/dL [facility] MCV (RBC) [Entitic vol] 98.[address] [facility] Monocytes (Bld) [#/Vol] 1.0 10*3/uL High 0.0 - 0.7 10*3/uL [facility] Monocytes/100 WBC (Bld) 9.6 % 0.0 - 10.0 % [facility] Neutrophils (Bld) [#/Vol] 7.6 10*3/uL High 1.4 - 6.5 10*3/uL [facility] Neutrophils/100 WBC (Bld) 75.2 % High 37.0 - 75.0 % [facility] Platelet mean volume (Bld) [Entitic vol] 7.[address] [facility] Platelets (Bld) [#/Vol] 233 10*3/uL 130 - 400 10*3/uL [facility] RBC (Bld) [#/Vol] 4.65 10*6/uL 4.0 - 6.1 10*6/uL [facility] WBC (Bld) [#/Vol] 10.1 10*3/uL 3.6 - 11.0 10*3/uL [facility] CHEM 7 FASTINGon 04-19-2024 Chloride [Moles/Vol] 100 mmol/L Normal 98-107 [facility] Comment on above: Result Comment: Lisbeth stone note: Triglyceride levels of 600mg/dL or higher may positively bias chloride results by approximately 2.1 mmol Performed By: #### C HEM7F, ACBC, LIVR, LIPA2 #### Testing performed at [address] [address] CO2 [Moles/Vol] 21 mmol/L Low 22-30 [facility] Comment on above: Performed By: #### C HEM7F, ACBC, LIVR, LIPA2 #### [place] [address] Creatinine [Mass/Vol] 1.00 mg/dL Normal 0.7-1.2 [facility] Comment on above: Performed By: #### C HEM7F, ACBC, LIVR, LIPA2 #### [place] [address] EST. GFR, 111 ml/min/1.73sq.m [facility] Comment on above: Performed By: #### C HEM7F, ACBC, LIVR, LIPA2 #### [place] [address] EST. GFR,Non 91 ml/min/1.73sq.m [facility] Comment on above: Performed By: #### C HEM7F, ACBC, LIVR, LIPA2 #### [place] [address] GFR Information Average GFR for 30-3 9 years old = 107. Normal [facility] Comment on above: Result Comment: Corporate Representative blanca Kidney disease, GFR = <60. Kidney failure, GFR = <15. The GFR estimate is not adjusted for extreme body surface area or acute process, nor has it been validated for women or ethnic groups other than and . Testing performed at [address] [place] [address] Performed By: #### C HEM7F, ACBC, LIVR, LIPA2 #### [place] [address] Glucose [Mass/Vol] 139 mg/dL High 70-100 [facility] Comment on above: Result Comment: NORMAL <100 mg/dL PREDIABETES 101-126 mg/dL DIABETES 126 mg/dL or higher Performed By: #### C HEM7F, ACBC, LIVR, LIPA2 #### [place] [address] Potassium [Moles/Vol] 3.6 mmol/L Normal 3.5-5.1 [facility] Comment on above: Performed By: #### C HEM7F, ACBC, LIVR, LIPA2 #### [place] [address] Sodium [Moles/Vol] 136 mmol/L Low 137-145 [facility] Comment on above: Performed By: #### C HEM7F, ACBC, LIVR, LIPA2 #### [place] [address] Urea nitrogen [Mass/Vol] 7 mg/dL Normal 7-20 [facility] Comment on above: Performed By: #### C HEM7F, ACBC, LIVR, LIPA2 #### [place] [address] CHEM 7 (LYTES,BUN,CREA,GLUC) on 04-19-2024 Chloride [Moles/Vol] 100 mmol/L [facility] Comment on above: Please note: Triglyc eride levels of 600mg/dL or higher may positively bias chloride results by approximately 2.1 mmol CO2 [Moles/Vol] 21 mmol/L Low [facility] Creatinine [Mass/Vol] 1.00 mg/dL [facility] [employer] GFR COMMENT Average GFR for 30-3 9 years old = 107. [facility] Comment on above: Chronic Kidney disea se, GFR = <60. Kidney failure, GFR = <15. The GFR estimate is not adjusted for extreme body surface area or acute process, nor has it been validated for women or ethnic groups other than and . Testing performed at [place], [place] [address] GFR/1.73 sq M.predicted among blacks MDRD (S/P/Bld) [Vol rate/Area] 111 mL/min/{1.73_m2} ml/min/1.73s q.m [facility] GFR/1.73 sq M.predicted among non-blacks MDRD (S/P/Bld) [Vol rate/Area] 91 mL/min/{1.73_m2} ml/min/1.73s q.m [facility] Glucose post fast [Mass/Vol] 139 mg/dL High [facility] Comment on above: NORMAL <100 mg/dL PREDIABETES 101-126 mg/dL DIABETES 126 mg/dL or higher Potassium [Moles/Vol] 3.6 mmol/L [facility] Sodium [Moles/Vol] 136 mmol/L Low [facility] Urea nitrogen [Mass/Vol] 7 mg/dL [facility] CT ABDOMEN/PELVIS WITH CONTR [place] 04-19-2024 [...] liver. 5. Small sliding-type hiatus hernia. Normal [facility] CT Abdomen and Pelvis W cont [...] Fatty liver. 5. Small sliding-type hiatus hernia. [facility] Radiology Study observation (narrative) [facility] CT Abdomen and Pelvis W cont rast IVOrdered By: Abdi Del Rio on 04-19-2024 [facility] Work Phone: Critical Careon 04-19-2024 Akhil Ann MD 04/19/2024 2:59 PM Critical Care Performed by: Akhil Ann MD Authorized by: Akhil Ann MD Total critical care time: 15 minutes Critical care was time spent personally by me on the following activities: examination of patient and pulse oximetry. [facility] ED Prov Noteon 04-19-2024 ED Prov Note [facility] EMERGENCY DEPARTMENT ATTENDING NOTE: NAME: Yu Younger CSN: [id number] 33 y.o. PCP: Justin Pearce MD History: [...] Strain: Not on File (02/09/2019) [facility] from [employer] [facility] [employer] Strain Financial Resource Strain: 0 Food Insecurity: Not on File (02/09/2019) Received from [employer] Food Insecurity Food: 0 Transportation Needs: Not on File (02/09/2019) Received from [employer] Transportation Needs Transportation: 0 Physical Activity: Not on File (02/09/2019) Received from [employer] Physical [facility] Physical Activity: 0 Stress: Not on File (02/09/2019) Received from [employer] Stress Stress: 0 Social Connections: Not on File (02/09/2019) Received from [employer] Social Connections Social Connections and Isolation: 0 Housing Stability: Not on File (02/09/2019) [facility]ceived from [employer] Housing Stability Housin MEDs: Previous Medications Medication [...] likely secondary (more content not included)... Normal [facility] HEPATIC FUNCTION PANELon Albumin [Mass/Vol] 4.5 g/dL [facility] ALP [Catalytic activity/Vol] 239 U/L High [facility] ALT [Catalytic activity/Vol] 153 U/L High [facility] Comment on above: Testing performed at [facility] [place], [place] [address] AST [Catalytic activity/Vol] 371 U/L High [facility] Bilirubin [Mass/Vol] 0.9 mg/dL [facility] Bilirubin.direct [Mass/Vol] 0.6 mg/dL High [facility] Protein [Mass/Vol] 7.9 g/dL [facility] LACTIC ACID, PLASMAon 2023 LACTIC ACID, PLASMA 1.7 mmol/L Normal 0.6-2.0 [facility] Comment on above: Performed By: #### L [id number] #### MH LAB [address] [address] Dallin Donahue M.D. [id number] LIPASEon 04-19-2024 Interpretation and review of laboratory results Abnormal [facility] Lipase [Catalytic activity/Vol] 4914 U/L Critically high 23 - 300 U/L [facility] Comment on above: Result called to kavita d back by: MARIBEL GOOD 04/19/2024 @ 04:47byACL Testing performed at [address] LIPASE,SERUMon 04-19-2024 LIPASE,SERUM 4914 U/L Critically high 23-300 [facility] Comment on above: Result Comment: Resu lt called to read back by: MARIBEL GOOD 04/19/2024 @ 04:47byACL Testing performed at [place] [address] Performed By: #### C HEM7F, ACBC, LIVR, LIPA2 #### [place] [address] LIVER PANELon 04-19-2024 Albumin [Mass/Vol] 4.5 g/dL Normal 3.5-5.0 [facility] Comment on above: Performed By: #### C HEM7F, ACBC, LIVR, LIPA2 #### [place] [address] ALP [Catalytic activity/Vol] 239 U/L High 38-126 [facility] Comment on above: Performed By: #### C HEM7F, ACBC, LIVR, LIPA2 #### [place] [address] ALT [Catalytic activity/Vol] 153 U/L High <50 [facility] Comment on above: Result Comment: Test ing performed at [place] [address] Performed By: #### C HEM7F, ACBC, LIVR, LIPA2 #### Testing performed at [address] [address] AST [Catalytic activity/Vol] 371 U/L High 17-59 [facility] Comment on above: Performed By: #### C HEM7F, ACBC, LIVR, LIPA2 #### Testing performed at [address] [address] Bilirubin [Mass/Vol] 0.9 mg/dL Normal 0.2-1.3 [facility] Comment on above: Performed By: #### C HEM7F, ACBC, LIVR, LIPA2 #### Testing performed at [address] [address] Bilirubin.indirect [Mass/Vol] 0.6 mg/dL High 0-0.4 [facility] Comment on above: Performed By: #### C HEM7F, ACBC, LIVR, LIPA2 #### Testing performed at [address] [address] Protein [Mass/Vol] 7.9 g/dL Normal 6.3-8.2 [facility] Comment on above: Performed By: #### C HEM7F, ACBC, LIVR, LIPA2 #### Testing performed at [address] [address] Lactate [Moles/Vol]on 2023 Interpretation and review of laboratory results Normal [facility] Lactic Acid, Plasmaon 2023 Lactate [Moles/Vol] 1.7 mmol/L 0.6 - 2. 0 mmol/L [facility] MAGNESIUM LEVELon 04-19-2024 Magnesium [Mass/Vol] 1.4 mg/dL Low 1.6-2.4 [facility] [place] Comment on above: Performed By: #### L [id number] #### LAB [address], [place] [address] Dallin Donahue M.D. [id number] Magnesium Levelon 04-19-2024 Magnesium [Mass/Vol] 1.4 mg/dL Low 1.6 - 2 .4 mg/dL [facility] No Panel Informationon 04-19 Extra Tube Hold for add-ons. [facility] Comment on above: Auto resulted. [facility] Interpretation and review of laboratory results Abnormal [facility] Interpretation and review of laboratory results Abnormal [facility] PHOSPHORUSon 04-19-2024 Phosphate [Mass/Vol] 2.5 mg/dL Low 2.7-4.5 [facility] [place] Comment on above: Performed By: #### L [id number] #### MH LAB [address] [address] Dallin Donahue M.D. [id number] Phosphoruson 04-19-2024 Phosphate [Mass/Vol] 2.5 mg/dL Low 2.7 - 4 .5 mg/dL [facility] TRIGLYCERIDESon 04-19-2024 Triglyceride [Mass/Vol] 77 mg/dL Normal 30-150 [facility] Comment on above: Result Comment: Kell onal Cholesterol Education Program Guidelines: Triglyceride Normal: <150 mg/dL Borderline High: 150-199 mg/dL High: 200-499 mg/dL Very High: greater than or equal to 500 mg/dL Performed By: #### 4 6299 #### LAB [address] [address] Dallin Donahue M.D. [id number] Triglyceride [Mass/Vol]on Interpretation and review of laboratory results Normal [facility] Triglycerideson 04-19-2024 Triglyceride [Mass/Vol] 77 mg/dL 30 - 150 mg/dL [facility] Comment on above: National Cholesterol Education Program Guidelines: Triglyceride Normal: <150 mg/dL Borderline High: 150-199 mg/dL High: 200-499 mg/dL Very High: greater than or equal to 500 mg/dL CBC WITH AUTO DIFFERENTIALon 01-27-2024 AUTO NRBC 0.0 % Normal [facility] Comment on above: Performed By: #### L [id number] #### MH LAB [address] [address] Dallin Donahue M.D. [id number] AUTO NRBC ABS COUNT 0.00 K/mcL Normal 0.00-0.00 [facility] Comment on above: Performed By: #### L [id number] #### MH LAB [address] [address] Dallin Donahue M.D. [id number] BASOPHILS ABSOLUTE COUNT 0.04 K/mcL Normal 0.00-0.30 [facility] Comment on above: Performed By: #### L [id number] #### LAB [address] [address] Dallin Donahue M.D. [id number] Basophils/100 WBC (Bld) 0.4 % Normal [facility] Comment on above: Performed By: #### L [id number] #### LAB [address] [address] Dallin Donahue M.D. [id number] Eosinophils (Bld) [#/Vol] 0.08 10*3/uL Normal 0.00-0.50 [facility] Comment on above: Performed By: #### L [id number] #### LAB [address] [address] Dallin Donahue M.D. [id number] Eosinophils/100 WBC (Bld) 0.9 % Normal [facility] Comment on above: Performed By: #### L [id number] #### LAB [address] [place] [address] Dallin Donahue M.D. [id number] Erythrocyte distribution width (RBC) [Ratio] 12.5 % Normal 11.6-14.8 [facility] Comment on above: Performed By: #### L [id number] #### LAB [address] [place] [address] Dallin Donahue M.D. [id number] Hematocrit (Bld) [Volume fraction] 40.6 % Low 41.0-53.0 [facility] Comment on above: Performed By: #### L [id number] #### LAB [address] [address] Dallin Donahue M.D. [id number] Hemoglobin (Bld) [Mass/Vol] 14.0 g/dL Normal 13.5-17.5 [facility] Comment on above: Performed By: #### L [id number] #### LAB [address] [address] Dallin Donahue M.D. [id number] IG ABSOLUTE 0.03 K/mcL Normal 0.00-0.30 [facility] Comment on above: Performed By: #### L [id number] #### LAB [address] [address] Dallin Donahue M.D. [id number] IG PERCENT 0.30 % Normal [facility] Comment on above: Result Comment: The IG parameter is the percentage of metamyelocytes, myelocytes and promyelocytes. An immature granulocyte count (IG) of 1% or more suggests the possibility of infection, an IG count of 3% is very likely related to an infection. Performed By: #### L [id number] #### LAB [address] [address] Dallin Donahue M.D. [id number] Lymphocytes (Bld) [#/Vol] 3.06 10*3/uL Normal 0.90-4.00 [facility] Comment on above: Performed By: #### L [id number] #### LAB [address] [address] Dallin Donahue M.D. [id number] Lymphocytes/100 WBC (Bld) 34.3 % Normal [facility] Comment on above: Performed By: #### L [id number] #### LAB [address] [address] Dallin Donahue M.D. [id number] MCH (RBC) [Entitic mass] 31.0 pg Normal 26.0-34.0 [facility] Comment on above: Performed By: #### L [id number] #### LAB [address] [address] Dallin Donahue M.D. [id number] MCV (RBC) [Entitic vol] 89.8 fL Normal 80.0-100.0 [facility] Comment on above: Performed By: #### L [id number] #### LAB [address] [place] [address] Dallin Donahue M.D. [id number] MEAN CORPUSCULAR HEMOGLOBIN CONC 34.5 g/dL Normal 31.0-37.0 [facility] Comment on above: Performed By: #### L [id number] #### LAB [address] [address] Dallin Donahue M.D. [id number] Monocytes (Bld) [#/Vol] 1.13 10*3/uL High 0.30-0.90 [facility] Comment on above: Performed By: #### L [id number] #### LAB [address] [address] Dallin Donahue M.D. [id number] Monocytes/100 WBC (Bld) 12.7 % Normal [facility] Comment on above: Performed By: #### L [id number] #### LAB [address] [address] Dallin Donahue M.D. [id number] NEUTROPHILS ABSOLUTE COUNT 4.57 K/mcL Normal 1.70-7.00 [facility] Comment on above: Performed By: #### L [id number] #### LAB [address] [address] Dallin Donahue M.D. [id number] Neutrophils/100 WBC (Bld) 51.4 % Normal [facility] Comment on above: Performed By: #### L [id number] #### LAB [address] [address] Dallin Donahue M.D. [id number] Platelet mean volume (Bld) [Entitic vol] 10.7 fL Normal 9.4-12.4 [facility] Comment on above: Performed By: #### L [id number] #### LAB [address] [address] Dallin Donahue M.D. [id number] Platelets (Bld) [#/Vol] 208 10*3/uL Normal 150-400 [facility] Comment on above: Performed By: #### L [id number] #### LAB [address] [place] [address] Dallin Donahue M.D. [id number] RBC (Bld) [#/Vol] 4.52 10*6/uL Normal 4.50-5.90 [facility] Comment on above: Performed By: #### L [id number] #### [facility] [address] [address] Dallin Donahue M.D. [id number] WBC (Bld) [#/Vol] 8.91 10*3/uL Normal 4.50-11.00 [facility] Comment on above: Performed By: #### L [id number] #### [facility] [address] [address] Dallin Donahue M.D. [id number] CHEM 01-27-2024 Anion gap [Moles/Vol] 20 mmol/L Normal 10-20 [facility] Comment on above: Order Comment: [facility] has implemented the eGFR calculation approach that does not have a coefficient for race that conforms to the NKF-ASN Task Force Recommendations. Performed By: #### L [id number] #### [facility] [address] [address] Dallin Donahue M.D. [id number] Chloride [Moles/Vol] 101 mmol/L Normal 98-108 [facility] [place] Comment on above: Order Comment: [facility] has implemented the eGFR calculation approach that does not have a coefficient for race that conforms to the NKF-ASN Task Force Recommendations. Performed By: #### L [id number] #### [facility] [address] [address] Dallin Donahue M.D. [id number] Creatinine [Mass/Vol] 1.63 mg/dL High 0.50-1.30 [facility] Comment on above: Order Comment: [facility] has implemented the eGFR calculation approach that does not have a coefficient for race that conforms to the NKF-ASN Task Force Recommendations. Performed By: #### L [id number] #### [facility] [address] [address] Dallin Donahue M.D. [id number] EGFR 57 mL/min/1.73 m2 Low >=60 [facility] Comment on above: Order Comment: [facility] has implemented the eGFR calculation approach that does not have a coefficient for race that conforms to the NKF-ASN Task Force Recommendations. Result Comment: Karoline mated GFR was calculated using the 2020 CKD-EPI creatinine equation. Performed By: #### L [id number] #### [facility] [address] [address] Dallin Donahue M.D. [id number] Glucose [Mass/Vol] 80 mg/dL Normal 65-99 [facility] Comment on above: Order Comment: [facility] has implemented the eGFR calculation approach that does not have a coefficient for race that conforms to the NKF-ASN Task Force Recommendations. Performed By: #### L [id number] #### [facility] [address] [address] Dallin Donahue M.D. [id number] HCO3 (Bld) [Moles/Vol] 19 mmol/L Low 21-32 [facility] Comment on above: Order Comment: [facility] has implemented the eGFR calculation approach that does not have a coefficient for race that conforms to the NKF-ASN Task Force Recommendations. Performed By: #### L [id number] #### [facility] [address] [address] Dallin Donahue M.D. [id number] Potassium [Moles/Vol] 3.9 mmol/L Normal 3.5-5.1 [facility] Comment on above: Order Comment: [facility] has implemented the eGFR calculation approach that does not have a coefficient for race that conforms to the NKF-ASN Task Force Recommendations. Performed By: #### L [id number] #### [facility] [address] [address] Dallin Donahue M.D. [id number] Sodium [Moles/Vol] 136 mmol/L Normal 135-145 [facility] Comment on above: Order Comment: [facility] has implemented the eGFR calculation approach that does not have a coefficient for race that conforms to the NKF-ASN Task Force Recommendations. Performed By: #### L [id number] #### [facility] [address] [address] Dallin Donahue M.D. [id number] Urea nitrogen [Mass/Vol] 27 mg/dL High 8-25 [facility] Comment on above: Order Comment: [facility] has implemented the eGFR calculation approach that does not have a coefficient for race that conforms to the NKF-ASN Task Force Recommendations. Performed By: #### L [id number] #### [facility] [address] [address] Dallin Donahue M.D. [id number] Urea nitrogen/Creatinine [Mass ratio] 16.6 mg/mg Normal 10.0-20.0 [facility] Comment on above: Order Comment: [facility] has implemented the eGFR calculation approach that does not have a coefficient for race that conforms to the NKF-ASN Task Force Recommendations. Performed By: #### L [id number] #### [facility] [address] [address] Dallin Donahue M.D. [id number] CHLAMYDIA/GONORRHOEAE AMPLIF IED RNAon 01-27-2024 CHLAMYDIA/GONORRHOEAE AMPLIFIED RNA CHLAMYDIA TRACHOMATIS AMPLIFIED RNA NEGATIVE NEISSERIA GONORRHOEAE AMPLIFIED RNA NEGATIVE Normal Negative [facility] Comment on above: Performed By: #### L [id number] #### [facility] [address] [place] [address] David Rocha M.D. [id number] CPKon 01-27-2024 CPK 308 U/L High 60-225 [facility] Comment on above: Performed By: #### L [id number] #### [facility] [address] [address] Dallin Donahue M.D. [id number] DRUGS OF ABUSE SCREEN, URINE on 01-27-2024 AMPHETAMINE SCREEN, URINE Positive Abnormal None Detected [facility] Comment on above: Order Comment: Scree n results should be used for treatment purposes only.Specimen will be kept for 2 weeks, if the sample is adequate. Confirmation testing can be initiated by calling the lab within 2 weeks. Result Comment: Urin e Amphetamine Cutoff: < 1000 ng/mL = None Detected Performed By: #### L [id number] #### [facility] [address] [address] Dallin Donahue M.D. [id number] BARBITURATE SCREEN URINE Not detected Normal None Detected [facility] Comment on above: Order Comment: Scree n results should be used for treatment purposes only.Specimen will be kept for 2 weeks, if the sample is adequate. Confirmation testing can be initiated by calling the lab within 2 weeks. Result Comment: Urin e Barbiturates Cutoff: < 200 ng/mL = None Detected Performed By: #### L [id number] #### [facility] LAB [address] [place] [address] Dallin Donahue M.D. [id number] BENZODIAZEPINE SCREEN, URINE Not detected Normal None Detected [facility] Comment on above: Order Comment: Scree n results should be used for treatment purposes only.Specimen will be kept for 2 weeks, if the sample is adequate. Confirmation testing can be initiated by calling the lab within 2 weeks. Result Comment: Urin e Benzodiazepine Cutoff: < 200 ng/mL = None Detected Performed By: #### L [id number] #### [facility] [address] [place] [address] Dallin Donahue M.D. [id number] BUPRENORPHINE, URINE Not detected Normal None Detected [facility] Comment on above: Order Comment: Scree n results should be used for treatment purposes only.Specimen will be kept for 2 weeks, if the sample is adequate. Confirmation testing can be initiated by calling the lab within 2 weeks. Result Comment: Urin e Buprenorphine Cutoff: < 5 ng/mL = None Detected Performed By: #### L [id number] #### [facility] [address] [place] [address] Dallin Donahue M.D. [id number] CANNABINOID SCREEN URINE Not detected Normal None Detected [facility] Comment on above: Order Comment: Scree n results should be used for treatment purposes only.Specimen will be kept for 2 weeks, if the sample is adequate. Confirmation testing can be initiated by calling the lab within 2 weeks. Result Comment: Urin e Cannabinoids Cutoff: < 50 ng/mL = None Detected Performed By: #### L [id number] #### [facility] [address] [address] Dallin Donahue M.D. [id number] COCAINE, SCREEN URINE Not detected Normal None Detected [facility] Comment on above: Order Comment: Scree n results should be used for treatment purposes only.Specimen will be kept for 2 weeks, if the sample is adequate. Confirmation testing can be initiated by calling the lab within 2 weeks. Result Comment: Urin e Cocaine Cutoff: < 300 ng/mL = None Detected Performed By: #### L [id number] #### [facility] [address] [address] Dallin Donahue M.D. [id number] FENTANYL, URINE Not detected Normal None Detected [facility] Comment on above: Order Comment: Scree n results should be used for treatment purposes only.Specimen will be kept for 2 weeks, if the sample is adequate. Confirmation testing can be initiated by calling the lab within 2 weeks. Result Comment: Urin e Fentanyl Cutoff: < 1 ng/mL = None Detected Performed By: #### L [id number] #### [facility] [address] [address] Dallin Donahue M.D. [id number] METHADONE SCREEN, URINE Positive Abnormal None Detected [facility] Comment on above: Order Comment: Scree n results should be used for treatment purposes only.Specimen will be kept for 2 weeks, if the sample is adequate. Confirmation testing can be initiated by calling the lab within 2 weeks. Result Comment: Urin e Methadone Cutoff: < 300 ng/mL = None Detected Performed By: #### L [id number] #### [facility] [address] [address] Dallin Donahue M.D. [id number] OPIATE SCREEN URINE Not detected Normal None Detected [facility] Comment on above: Order Comment: Scree n results should be used for treatment purposes only.Specimen will be kept for 2 weeks, if the sample is adequate. Confirmation testing can be initiated by calling the lab within 2 weeks. Result Comment: Urin e Opiates Cutoff: < 300 ng/mL = None Detected Performed By: #### L [id number] #### [facility] LAB [address], [place] [address] Dallin Donahue M.D. [id number] OXYCODONE SCREEN, URINE Not detected Normal None Detected [facility] Comment on above: Order Comment: Scree n results should be used for treatment purposes only.Specimen will be kept for 2 weeks, if the sample is adequate. Confirmation testing can be initiated by calling the lab within 2 weeks. Result Comment: Urin e Oxycodone Cutoff: < 100 ng/mL = None Detected Performed By: #### L [id number] #### [facility] [address], [place] [address] Dallin Donahue M.D. [id number] ED Prov Noteon 01-27-2024 ED Prov Note [facility] EMERGENCY DEPARTMENT ATTENDING NOTE: NAME: Yu Younger CSN: [id number] 33 y.o. PCP: Justin Pearce MD History: [...] Strain: Not on File (02/09/2019) [facility] [employer] Strain Financial Resource Strain: 0 Food Insecurity: Not on File (02/09/2019) Received from [facility] Food Insecurity Food: 0 Transportation Needs: Not on File (02/09/2019) Received from [facility] Transportation Needs Transportation: 0 Physical Activity: Not on File (02/09/2019) Received from [facility] Physical Activity Physical Activity: 0 Stress: Not on File (02/09/2019) [facility] from [facility] Stress Stress: 0 Social Connections: Not on File (02/09/2019) Received from [facility] Social Connections Social Connections and Isolation: 0 Housing Stability: Not on File (02/09/2019) Received from [facility] Housing Stability Housin MEDs: Previous Medications Medication [...] is normal. (more content not included)... Normal [facility] TRICHOMONAS VAGINALIS AMPLIF IED RNAon 01-27-2024 TRICHOMONAS VAGINALIS AMPLIFIED RNA Negative Normal Negative [facility] Comment on above: Performed By: #### L [id number] #### [facility] LAB [address], [place] [address] Dallin Donahue M.D. [id number] URINALYSISon 01-27-2024 BACTERIA, URINE Rare Abnormal None Seen [facility] Comment on above: Order Comment: Micro scopic examination is performed on all urinalysis samples and only positive findings are reported. The test for blood on the chemical analytic portion of urinalysis may also be positive due to hemoglobinuria and myoglobinuria and if red blood cells are present they are quantified by microscopic examination. Performed By: #### L [id number] #### [facility] [address] [address] Dallin Donahue M.D. [id number] BILIRUBIN, URINE Negative Normal Negative [facility] Comment on above: Order Comment: Micro scopic examination is performed on all urinalysis samples and only positive findings are reported. The test for blood on the chemical analytic portion of urinalysis may also be positive due to hemoglobinuria and myoglobinuria and if red blood cells are present they are quantified by microscopic examination. Performed By: #### L [id number] #### [facility] [address] [address] Dallin Donahue M.D. [id number] BLOOD, URINE Negative Normal Negative [facility] Comment on above: Order Comment: Micro scopic examination is performed on all urinalysis samples and only positive findings are reported. The test for blood on the chemical analytic portion of urinalysis may also be positive due to hemoglobinuria and myoglobinuria and if red blood cells are present they are quantified by microscopic examination. Performed By: #### L [id number] #### [facility] [address] [address] Dallin Donahue M.D. [id number] Clarity (U) Cloudy Abnormal Clear [facility] Comment on above: Order Comment: Micro scopic examination is performed on all urinalysis samples and only positive findings are reported. The test for blood on the chemical analytic portion of urinalysis may also be positive due to hemoglobinuria and myoglobinuria and if red blood cells are present they are quantified by microscopic examination. Performed By: #### L [id number] #### [facility] [address] [address] Dallin Donahue M.D. [id number] Color (U) Yellow Normal Colorless, Yellow [facility] Comment on above: Order Comment: Micro scopic examination is performed on all urinalysis samples and only positive findings are reported. The test for blood on the chemical analytic portion of urinalysis may also be positive due to hemoglobinuria and myoglobinuria and if red blood cells are present they are quantified by microscopic examination. Performed By: #### L [id number] #### [facility] [address] [address] Dallin Donahue M.D. [id number] Glucose Ql (U) Negative Normal Negative [facility] Comment on above: Order Comment: Micro scopic examination is performed on all urinalysis samples and only positive findings are reported. The test for blood on the chemical analytic portion of urinalysis may also be positive due to hemoglobinuria and myoglobinuria and if red blood cells are present they are quantified by microscopic examination. Performed By: #### L [id number] #### [facility] [address] [address] Dallin Donahue M.D. [id number] Hyaline casts LM Ql (Urine sed) >20 Abnormal 0-2 [facility] Comment on above: Order Comment: Micro scopic examination is performed on all urinalysis samples and only positive findings are reported. The test for blood on the chemical analytic portion of urinalysis may also be positive due to hemoglobinuria and myoglobinuria and if red blood cells are present they are quantified by microscopic examination. Performed By: #### L [id number] #### LAB [address] [address] Dallin Donahue M.D. [id number] Ketones Ql (U) 20 mg/dL Abnormal Negative [facility] Comment on above: Order Comment: Micro scopic examination is performed on all urinalysis samples and only positive findings are reported. The test for blood on the chemical analytic portion of urinalysis may also be positive due to hemoglobinuria and myoglobinuria and if red blood cells are present they are quantified by microscopic examination. Performed By: #### L [id number] #### [facility] [address] [address] Dallin Donahue M.D. [id number] Leukocyte esterase Test strip Ql (U) Negative Normal Negative [facility] Comment on above: Order Comment: Micro scopic examination is performed on all urinalysis samples and only positive findings are reported. The test for blood on the chemical analytic portion of urinalysis may also be positive due to hemoglobinuria and myoglobinuria and if red blood cells are present they are quantified by microscopic examination. Performed By: #### L [id number] #### LAB [address], [place] [address] Dallin Donahue M.D. [id number] MUCUS, URINE Few Abnormal None Seen, Rare [facility] Comment on above: Order Comment: Micro scopic examination is performed on all urinalysis samples and only positive findings are reported. The test for blood on the chemical analytic portion of urinalysis may also be positive due to hemoglobinuria and myoglobinuria and if red blood cells are present they are quantified by microscopic examination. Performed By: #### L [id number] #### LAB [address] [id number] Dallin Donahue M.D. [id number] NITRITE, URINE Negative Normal Negative [facility] Comment on above: Order Comment: Micro scopic examination is performed on all urinalysis samples and only positive findings are reported. The test for blood on the chemical analytic portion of urinalysis may also be positive due to hemoglobinuria and myoglobinuria and if red blood cells are present they are quantified by microscopic examination. Performed By: #### L [id number] #### LAB [address], [place] [address] Dallin Donahue M.D. [id number] pH (U) 5.5 [pH] Normal 5.0-7.0 [facility] Comment on above: Order Comment: Micro scopic examination is performed on all urinalysis samples and only positive findings are reported. The test for blood on the chemical analytic portion of urinalysis may also be positive due to hemoglobinuria and myoglobinuria and if red blood cells are present they are quantified by microscopic examination. Performed By: #### L [id number] #### [facility] [address], [place] [address] Dallin Donahue M.D. [id number] Protein (U) [Mass/Vol] 30 mg/dL Abnormal Negative [facility] Comment on above: Order Comment: Micro [...] including ammonium compounds. Performed By: #### L [id number] #### [facility] [address] [address] Dallin Donahue M.D. [id number] RBC LM.HPF (Urine sed) [#/Area] 8 /[HPF] High 0-3 [facility] Comment on above: Order Comment: Micro scopic examination is performed on all urinalysis samples and only positive findings are reported. The test for blood on the chemical analytic portion of urinalysis may also be positive due to hemoglobinuria and myoglobinuria and if red blood cells are present they are quantified by microscopic examination. Performed By: #### L [id number] #### [facility] [address], [place] [address] Dallin Donahue M.D. [id number] Specific gravity (U) [Rel density] 1.031 High 1.005-1.025 [facility] Comment on above: Order Comment: Micro scopic examination is performed on all urinalysis samples and only positive findings are reported. The test for blood on the chemical analytic portion of urinalysis may also be positive due to hemoglobinuria and myoglobinuria and if red blood cells are present they are quantified by microscopic examination. Performed By: #### L [id number] #### [facility] [address], [place] [address] Dallin Donahue M.D. [id number] UROBILINOGEN, URINE 2.0 mg/dL Abnormal <2.0 [facility] Comment on above: Order Comment: Micro scopic examination is performed on all urinalysis samples and only positive findings are reported. The test for blood on the chemical analytic portion of urinalysis may also be positive due to hemoglobinuria and myoglobinuria and if red blood cells are present they are quantified by microscopic examination. Performed By: #### L [id number] #### [facility] [address] [address] Dallin Donahue M.D. [id number] WBC LM.HPF (Urine sed) [#/Area] 4 /[HPF] Normal 0-5 [facility] Comment on above: Order Comment: Micro scopic examination is performed on all urinalysis samples and only positive findings are reported. The test for blood on the chemical analytic portion of urinalysis may also be positive due to hemoglobinuria and myoglobinuria and if red blood cells are present they are quantified by microscopic examination. Performed By: #### L [id number] #### [facility] [address] [address] Dallin Donahue M.D. [id number] BASIC METABOLIC PANELon 07-2 Anion gap [Moles/Vol] 29 mmol/L High 10-20 [facility] Comment on above: Order Comment: [facility] has implemented the eGFR calculation approach that does not have a coefficient for race that conforms to the NKF-ASN Task Force Recommendations. Performed By: #### L [id number] #### [facility] [address] [address] Dallin Donahue M.D. [id number] Calcium [Mass/Vol] 10.5 mg/dL High 8.4-10.2 [facility] Comment on above: Order Comment: [facility] has implemented the eGFR calculation approach that does not have a coefficient for race that conforms to the NKF-ASN Task Force Recommendations. Performed By: #### L [id number] #### [facility] [address] [address] Dallin Donahue M.D. [id number] Chloride [Moles/Vol] 97 mmol/L Low 98-108 [facility] [place] Comment on above: Order Comment: [facility] has implemented the eGFR calculation approach that does not have a coefficient for race that conforms to the NKF-ASN Task Force Recommendations. Performed By: #### L [id number] #### [facility] [address] [address] Dallin Donahue M.D. [id number] Creatinine [Mass/Vol] 2.69 mg/dL High 0.50-1.30 [facility] Comment on above: Order Comment: [facility] has implemented the eGFR calculation approach that does not have a coefficient for race that conforms to the NKF-ASN Task Force Recommendations. Performed By: #### L [id number] #### LAB [address] [address] Dallin Donahue M.D. [id number] EGFR 31 mL/min/1.73 m2 Low >=60 [facility] Comment on above: Order Comment: [facility] has implemented the eGFR calculation approach that does not have a coefficient for race that conforms to the NKF-ASN Task Force Recommendations. Result Comment: Karoline mated GFR was calculated using the 2020 CKD-EPI creatinine equation. Performed By: #### L [id number] #### LAB [address] [place] [address] Dallin Donahue M.D. [id number] Glucose [Mass/Vol] 107 mg/dL High 65-99 [facility] Comment on above: Order Comment: [facility] has implemented the eGFR calculation approach that does not have a coefficient for race that conforms to the NKF-ASN Task Force Recommendations. Performed By: #### L [id number] #### [facility] [address] [address] Dallin Donahue M.D. [id number] HCO3 (Bld) [Moles/Vol] 14 mmol/L Low 21-32 [facility] Comment on above: Order Comment: [facility] has implemented the eGFR calculation approach that does not have a coefficient for race that conforms to the NKF-ASN Task Force Recommendations. Performed By: #### L [id number] #### LAB [address] [address] Dallin Donahue M.D. [id number] Potassium [Moles/Vol] 3.6 mmol/L Normal 3.5-5.1 [facility] Comment on above: Order Comment: [facility] has implemented the eGFR calculation approach that does not have a coefficient for race that conforms to the NKF-ASN Task Force Recommendations. Performed By: #### L [id number] #### [facility] [address] [address] Dallin Donahue M.D. [id number] Sodium [Moles/Vol] 136 mmol/L Normal 135-145 [facility] Comment on above: Order Comment: [facility] has implemented the eGFR calculation approach that does not have a coefficient for race that conforms to the NKF-ASN Task Force Recommendations. Performed By: #### L [id number] #### [facility] [address] [address] Dallin Donahue M.D. [id number] Urea nitrogen [Mass/Vol] 31 mg/dL High 8-25 [facility] Comment on above: Order Comment: [facility] has implemented the eGFR calculation approach that does not have a coefficient for race that conforms to the NKF-ASN Task Force Recommendations. Performed By: #### L [id number] #### [facility] [address] [address] Dallin Donahue M.D. [id number] Urea nitrogen/Creatinine [Mass ratio] 11.5 mg/mg Normal 10.0-20.0 [facility] Comment on above: Order Comment: [facility] has implemented the eGFR calculation approach that does not have a coefficient for race that conforms to the NKF-ASN Task Force Recommendations. Performed By: #### L [id number] #### [facility] [address] [address] Dallin Donahue M.D. [id number] CBC WITH AUTO DIFFERENTIALon 01-05-2024 AUTO NRBC 0.0 % Normal [facility] Comment on above: Performed By: #### L [id number] #### [facility] [address] [address] Dallin Donahue M.D. [id number] AUTO NRBC ABS COUNT 0.00 K/mcL Normal 0.00-0.00 [facility] Comment on above: Performed By: #### L [id number] #### [facility] [address] [address] Dallin Donahue M.D. [id number] BASOPHILS ABSOLUTE COUNT 0.08 K/mcL Normal 0.00-0.30 [facility] Comment on above: Performed By: #### L [id number] #### [facility] [address] [address] Dallin Donahue M.D. [id number] Basophils/100 WBC (Bld) 0.8 % Normal [facility] Comment on above: Performed By: #### L [id number] #### [facility] [address] [address] Dallin Donahue M.D. [id number] Eosinophils (Bld) [#/Vol] 0.01 10*3/uL Normal 0.00-0.50 [facility] Comment on above: Performed By: #### L [id number] #### [facility] [address] [address] Dallin Donahue M.D. [id number] Eosinophils/100 WBC (Bld) 0.1 % Normal [facility] Comment on above: Performed By: #### L [id number] #### LAB [address] [place] [address] Dallin Donahue M.D. [id number] Erythrocyte distribution width (RBC) [Ratio] 13.4 % Normal 11.6-14.8 [facility] Comment on above: Performed By: #### L [id number] #### [facility] [address] [address] Dallin Donahue M.D. [id number] Hematocrit (Bld) [Volume fraction] 43.0 % Normal 41.0-53.0 [facility] Comment on above: Performed By: #### L [id number] #### [facility] [address] [place] [address] Dallin Donahue M.D. [id number] Hemoglobin (Bld) [Mass/Vol] 15.1 g/dL Normal 13.5-17.5 [facility] Comment on above: Performed By: #### L [id number] #### [facility] [address] [address] Dallin Donahue M.D. [id number] IG ABSOLUTE 0.05 K/mcL Normal 0.00-0.30 [facility] Comment on above: Performed By: #### L [id number] #### [facility] [address] [address] Dallin Donahue M.D. [id number] IG PERCENT 0.50 % Normal [facility] Comment on above: Result Comment: The IG parameter is the percentage of metamyelocytes, myelocytes and promyelocytes. An immature granulocyte count (IG) of 1% or more suggests the possibility of infection, an IG count of 3% is very likely related to an infection. Performed By: #### L [id number] #### LAB [address] [place] [address] Dallin Donahue M.D. [id number] Lymphocytes (Bld) [#/Vol] 1.12 10*3/uL Normal 0.90-4.00 [facility] Comment on above: Performed By: #### L [id number] #### [facility] [address] [address] Dallin Donahue M.D. [id number] Lymphocytes/100 WBC (Bld) 10.5 % Normal [facility] Comment on above: Performed By: #### L [id number] #### [facility] [address] [address] Dallin Donahue M.D. [id number] MCH (RBC) [Entitic mass] 32.8 pg Normal 26.0-34.0 [facility] Comment on above: Performed By: #### L [id number] #### [facility] [address] [address] Dallin Donahue M.D. [id number] MCV (RBC) [Entitic vol] 93.3 fL Normal 80.0-100.0 [facility] Comment on above: Performed By: #### L [id number] #### [facility] [address] [address] Dallin Donahue M.D. [id number] MEAN CORPUSCULAR HEMOGLOBIN CONC 35.1 g/dL Normal 31.0-37.0 [facility] Comment on above: Performed By: #### L [id number] #### [facility] [address] [address] Dallin Donahue M.D. [id number] Monocytes (Bld) [#/Vol] 1.20 10*3/uL High 0.30-0.90 [facility] Comment on above: Performed By: #### L [id number] #### [facility] [address] [address] Dallin Donahue M.D. [id number] Monocytes/100 WBC (Bld) 11.3 % Normal [facility] Comment on above: Performed By: #### L [id number] #### [facility] [address] [address] Dallin Donahue M.D. [id number] NEUTROPHILS ABSOLUTE COUNT 8.18 K/mcL High 1.70-7.00 [facility] Comment on above: Performed By: #### L [id number] #### [facility] [address] [place] [address] Dallin Donahue M.D. [id number] Neutrophils/100 WBC (Bld) 76.8 % Normal [facility] Comment on above: Performed By: #### L [id number] #### LAB [address] [place] [address] Dallin Donahue M.D. [id number] Platelet mean volume (Bld) [Entitic vol] 10.3 fL Normal 9.4-12.4 [facility] Comment on above: Performed By: #### L [id number] #### [facility] [address] [address] Dallin Donahue M.D. [id number] Platelets (Bld) [#/Vol] 275 10*3/uL Normal 150-400 [facility] Comment on above: Performed By: #### L [id number] #### [facility] [address], [place] [address] Dallin Donahue M.D. [id number] RBC (Bld) [#/Vol] 4.61 10*6/uL Normal 4.50-5.90 [facility] Comment on above: Performed By: #### L [id number] #### [facility] [address] [address] Dallin Donahue M.D. [id number] WBC (Bld) [#/Vol] 10.64 10*3/uL Normal 4.50-11.00 [facility] [place] Comment on above: Performed By: #### L [id number] #### [facility] [address] [address] Dallin Donahue M.D. [id number] CPKon 01-05-2024 CPK 7679 U/L High 60-225 [facility] Comment on above: Performed By: #### L [id number] #### [facility] [address] [address] Dallin Donahue M.D. [id number] CT HEAD OR BRAIN WITHOUT CON TRASTon [...] ID: [id number] Dictated by: BHAVESH LING on [place] Jan 05, 2024 3:24:55 AM EDT Transcribed by: BHAVESH LING on [place] Jan 05, 2024 3:24:55 AM EDT Finalized by: BHAVESH LING on [place] Jan 05, 2024 3:24:55 AM EDT Normal [facility] Comment on above: Order Comment: Injur y/Trauma or Illness?:Illness/Other How long have you had these symptoms (acute/chronic)?:Acute Reason for exam?:ams, seizures, medication reaction vs OD Type of Exam?:Initial Additional signs and symptoms?:. DRUGS OF ABUSE SCREEN, URINE on 01-05-2024 AMPHETAMINE SCREEN, URINE Positive Abnormal None Detected [facility] Comment on above: Order Comment: Scree n results should be used for treatment purposes only.Specimen will be kept for 2 weeks, if the sample is adequate. Confirmation testing can be initiated by calling the lab within 2 weeks. Result Comment: Urin e Amphetamine Cutoff: < 1000 ng/mL = None Detected Performed By: #### L [id number] #### [facility] [address] [address] Dallin Donahue M.D. [id number] BARBITURATE SCREEN URINE Not detected Normal None Detected [facility] Comment on above: Order Comment: Scree n results should be used for treatment purposes only.Specimen will be kept for 2 weeks, if the sample is adequate. Confirmation testing can be initiated by calling the lab within 2 weeks. Result Comment: Urin e Barbiturates Cutoff: < 200 ng/mL = None Detected Performed By: #### L [id number] #### [facility] [address], [place] [address] Dallin Donahue M.D. [id number] BENZODIAZEPINE SCREEN, URINE Not detected Normal None Detected [facility] Comment on above: Order Comment: Scree n results should be used for treatment purposes only.Specimen will be kept for 2 weeks, if the sample is adequate. Confirmation testing can be initiated by calling the lab within 2 weeks. Result Comment: Urin e Benzodiazepine Cutoff: < 200 ng/mL = None Detected Performed By: #### L [id number] #### [facility] [address] [address] Dallin Donahue M.D. [id number] BUPRENORPHINE, URINE Not detected Normal None Detected [facility] Comment on above: Order Comment: Scree n results should be used for treatment purposes only.Specimen will be kept for 2 weeks, if the sample is adequate. Confirmation testing can be initiated by calling the lab within 2 weeks. Result Comment: Urin e Buprenorphine Cutoff: < 5 ng/mL = None Detected Performed By: #### L [id number] #### [facility] [address] [address] Dallin Donahue M.D. [id number] CANNABINOID SCREEN URINE Positive Abnormal None Detected [facility] Comment on above: Order Comment: Scree n results should be used for treatment purposes only.Specimen will be kept for 2 weeks, if the sample is adequate. Confirmation testing can be initiated by calling the lab within 2 weeks. Result Comment: Urin e Cannabinoids Cutoff: < 50 ng/mL = None Detected Performed By: #### L [id number] #### [facility] [address] [address] Dallin Donahue M.D. [id number] COCAINE, SCREEN URINE Not detected Normal None Detected [facility] Comment on above: Order Comment: Scree n results should be used for treatment purposes only.Specimen will be kept for 2 weeks, if the sample is adequate. Confirmation testing can be initiated by calling the lab within 2 weeks. Result Comment: Urin e Cocaine Cutoff: < 300 ng/mL = None Detected Performed By: #### L [id number] #### [facility] [address] [address] Dallin Donahue M.D. [id number] FENTANYL, URINE Not detected Normal None Detected [facility] Comment on above: Order Comment: Scree n results should be used for treatment purposes only.Specimen will be kept for 2 weeks, if the sample is adequate. Confirmation testing can be initiated by calling the lab within 2 weeks. Result Comment: Urin e Fentanyl Cutoff: < 1 ng/mL = None Detected Performed By: #### L [id number] #### [facility] [address] [address] Dallin Donahue M.D. [id number] METHADONE SCREEN, URINE Positive Abnormal None Detected [facility] Comment on above: Order Comment: Scree n results should be used for treatment purposes only.Specimen will be kept for 2 weeks, if the sample is adequate. Confirmation testing can be initiated by calling the lab within 2 weeks. Result Comment: Urin e Methadone Cutoff: < 300 ng/mL = None Detected Performed By: #### L [id number] #### [facility] [address] [address] Dallin Donahue M.D. [id number] OPIATE SCREEN URINE Positive Abnormal None Detected [facility] Comment on above: Order Comment: Scree n results should be used for treatment purposes only.Specimen will be kept for 2 weeks, if the sample is adequate. Confirmation testing can be initiated by calling the lab within 2 weeks. Result Comment: Urin e Opiates Cutoff: < 300 ng/mL = None Detected Performed By: #### L [id number] #### [facility] [address] [address] Dallin Donahue M.D. [id number] OXYCODONE SCREEN, URINE Not detected Normal None Detected [facility] Comment on above: Order Comment: Scree n results should be used for treatment purposes only.Specimen will be kept for 2 weeks, if the sample is adequate. Confirmation testing can be initiated by calling the lab within 2 weeks. Result Comment: Urin e Oxycodone Cutoff: < 100 ng/mL = None Detected Performed By: #### L [id number] #### [facility] [address] [address] Dallin Donahue M.D. [id number] ED Procedureon 01-05-2024 ED Procedure EKG 12-lead Date/Time: 01/05/2024 1:47 AM Performed by: Tomasa Hoang MD Authorized by: Tomasa Hoang MD Interpreted by ED attending physician Comparison: compared with previous ECG Comparison to previous ECG: Sinus tach now present Rhythm: sinus rhythm and sinus tachycardia BPM: 123 Clinical impression: sinus tachycardia AUTHENTICATED BY TOMASA HOANG ON 01/05/2024 01:48:13 Normal [facility] ED Prov Noteon 01-05-2024 ED Prov Note [facility] EMERGENCY DEPARTMENT ATTENDING NOTE: NAME: Yu Younger CSN: [id number] 33 y.o. PCP: Justin Pearce MD History: [...] Result Value Clarity, Urine Cloudy (*) Specific [place] 1.036 (*) Protein, Urine 100 (*) Ketones, Urine Trace (*) Bilirubin, Urine Positive (*) Urobilinogen, Urine >=4.0 (*) Blood, Urine Large (*) Leukocyte Esterase, Urine Small (*) WBCs, Urine 15 (*) RBCs, Urine 28 (*) Bacteria, Urine Rare (*) Hyaline Casts 11-20 (*) Sperm, Urine Rare (*) All other components within normal limi (more content not included)... Normal [facility] HEPATIC FUNCTION PANELon Albumin [Mass/Vol] 4.7 g/dL Normal 3.2-5.2 [facility] Comment on above: Performed By: #### L [id number] #### [facility] [address] [address] Dallin Donahue M.D. [id number] ALP [Catalytic activity/Vol] 137 U/L Normal 40-140 [facility] Comment on above: Performed By: #### L [id number] #### [facility] [address], [place] [address] Dallin Donahue M.D. [id number] ALT [Catalytic activity/Vol] 112 U/L High 0-50 U/L [facility] Comment on above: Performed By: #### L [id number] #### [facility] [address], [place] [address] Dallin Donahue M.D. [id number] AST [Catalytic activity/Vol] 284 U/L High 0-50 U/L [facility] Comment on above: Performed By: #### L [id number] #### [facility] [address] [address] Dallin Donahue M.D. [id number] Bilirubin [Mass/Vol] 0.8 mg/dL Normal 0.0-1.3 [facility] [place] Comment on above: Performed By: #### L [id number] #### [facility] [address] [address] Dallin Donahue M.D. [id number] Bilirubin.indirect [Mass/Vol] 0.3 mg/dL Normal 0.0-0.4 [facility] Comment on above: Performed By: #### L [id number] #### [facility] [address] [address] Dallin Donahue M.D. [id number] Protein [Mass/Vol] 8.2 g/dL High 6.0-8.0 [facility] Comment on above: Performed By: #### L [id number] #### [facility] [address] [address] Dallin Donahue M.D. [id number] POC GLUCOSE - [facility] 024 Glucose [Mass/Vol] 112 mg/dL High 65-99 [facility] PROLACTINon 01-05-2024 PROLACTIN 4.0 ng/mL Normal 1.6-18.8 [facility] Comment on above: Performed By: #### [id number] #### [facility] [address] [address] Dallin Donahue M.D. [id number] URINALYSISon 01-05-2024 BACTERIA, URINE Rare Abnormal None Seen [facility] Comment on above: Order Comment: Micro scopic examination is performed on all urinalysis samples and only positive findings are reported. The test for blood on the chemical analytic portion of urinalysis may also be positive due to hemoglobinuria and myoglobinuria and if red blood cells are present they are quantified by microscopic examination. Performed By: #### 4 [id number] #### [facility] [address] [address] Dallin Donahue M.D. [id number] BILIRUBIN, URINE Positive Abnormal Negative [facility] Comment on above: Order Comment: Micro scopic [...] By: #### 4 [id number] #### [facility] [address] [address] Dallin Donahue M.D. [id number] BLOOD, URINE Large Abnormal Negative [facility] Comment on above: Order Comment: Micro scopic examination is performed on all urinalysis samples and only positive findings are reported. The test for blood on the chemical analytic portion of urinalysis may also be positive due to hemoglobinuria and myoglobinuria and if red blood cells are present they are quantified by microscopic examination. Performed By: #### 4 [id number] #### [facility] [address] [address] Dallin Donahue M.D. [id number] Clarity (U) Cloudy Abnormal Clear [facility] Comment on above: Order Comment: Micro scopic examination is performed on all urinalysis samples and only positive findings are reported. The test for blood on the chemical analytic portion of urinalysis may also be positive due to hemoglobinuria and myoglobinuria and if red blood cells are present they are quantified by microscopic examination. Performed By: #### 4 [id number] #### [facility] [address] [address] Dallin Donahue M.D. [id number] Color (U) Yellow Normal Colorless, Yellow [facility] Comment on above: Order Comment: Micro scopic examination is performed on all urinalysis samples and only positive findings are reported. The test for blood on the chemical analytic portion of urinalysis may also be positive due to hemoglobinuria and myoglobinuria and if red blood cells are present they are quantified by microscopic examination. Performed By: #### 4 [id number] #### [facility] [address] [address] Dallin Donahue M.D. [id number] Glucose Ql (U) Negative Normal Negative [facility] Comment on above: Order Comment: Micro scopic examination is performed on all urinalysis samples and only positive findings are reported. The test for blood on the chemical analytic portion of urinalysis may also be positive due to hemoglobinuria and myoglobinuria and if red blood cells are present they are quantified by microscopic examination. Performed By: #### 4 [id number] #### [facility] [address] [address] Dallin Donahue M.D. [id number] Hyaline casts LM Ql (Urine sed) 11-20 Abnormal 0-2 [facility] Comment on above: Order Comment: Micro scopic examination is performed on all urinalysis samples and only positive findings are reported. The test for blood on the chemical analytic portion of urinalysis may also be positive due to hemoglobinuria and myoglobinuria and if red blood cells are present they are quantified by microscopic examination. Performed By: #### 4 [id number] #### [facility] [address] [address] Dallin Donahue M.D. [id number] Ketones Ql (U) Trace Abnormal Negative [facility] Comment on above: Order Comment: Micro scopic examination is performed on all urinalysis samples and only positive findings are reported. The test for blood on the chemical analytic portion of urinalysis may also be positive due to hemoglobinuria and myoglobinuria and if red blood cells are present they are quantified by microscopic examination. Performed By: #### 4 [id number] #### [facility] [address] [address] Dallin Donahue M.D. [id number] Leukocyte esterase Test strip Ql (U) Small Abnormal Negative [facility] Comment on above: Order Comment: Micro scopic examination is performed on all urinalysis samples and only positive findings are reported. The test for blood on the chemical analytic portion of urinalysis may also be positive due to hemoglobinuria and myoglobinuria and if red blood cells are present they are quantified by microscopic examination. Performed By: #### 4 [id number] #### [facility] [address] [id number] Dallin Donahue M.D. [id number] MUCUS, URINE Rare Normal None Seen, Rare [facility] Comment on above: Order Comment: Micro scopic examination is performed on all urinalysis samples and only positive findings are reported. The test for blood on the chemical analytic portion of urinalysis may also be positive due to hemoglobinuria and myoglobinuria and if red blood cells are present they are quantified by microscopic examination. Performed By: #### 4 [id number] #### [facility] [address] [address] Dallin Donahue M.D. [id number] NITRITE, URINE Negative Normal Negative [facility] Comment on above: Order Comment: Micro scopic examination is performed on all urinalysis samples and only positive findings are reported. The test for blood on the chemical analytic portion of urinalysis may also be positive due to hemoglobinuria and myoglobinuria and if red blood cells are present they are quantified by microscopic examination. Performed By: #### 4 [id number] #### [facility] [address] [address] Dallin Donahue M.D. [id number] pH (U) 6.0 [pH] Normal 5.0-7.0 [facility] Comment on above: Order Comment: Micro scopic examination is performed on all urinalysis samples and only positive findings are reported. The test for blood on the chemical analytic portion of urinalysis may also be positive due to hemoglobinuria and myoglobinuria and if red blood cells are present they are quantified by microscopic examination. Performed By: #### 4 [id number] #### [facility] [address] [address] Dallin Donahue M.D. [id number] Protein (U) [Mass/Vol] 100 mg/dL Abnormal Negative [facility] Comment on above: Order Comment: Micro scopic examination is performed on all urinalysis samples and only positive findings are reported. The test for blood on the chemical analytic portion of urinalysis may also be positive due to hemoglobinuria and myoglobinuria and if red blood cells are present they are quantified by microscopic examination. Performed By: #### 4 [id number] #### [facility] [address] [address] Dallin Donahue M.D. [id number] RBC LM.HPF (Urine sed) [#/Area] 28 /[HPF] High 0-3 [facility] Comment on above: Order Comment: Micro scopic examination is performed on all urinalysis samples and only positive findings are reported. The test for blood on the chemical analytic portion of urinalysis may also be positive due to hemoglobinuria and myoglobinuria and if red blood cells are present they are quantified by microscopic examination. Performed By: #### 4 [id number] #### LAB [address] [place] [address] Dallin Donahue M.D. [id number] Specific gravity (U) [Rel density] 1.036 High 1.005-1.025 [facility] Comment on above: Order Comment: Micro scopic examination is performed on all urinalysis samples and only positive findings are reported. The test for blood on the chemical analytic portion of urinalysis may also be positive due to hemoglobinuria and myoglobinuria and if red blood cells are present they are quantified by microscopic examination. Performed By: #### 4 [id number] #### LAB [address] [place] [address] Dallin Donahue M.D. [id number] SPERM, URINE Rare Abnormal None Seen [facility] Comment on above: Order Comment: Micro scopic examination is performed on all urinalysis samples and only positive findings are reported. The test for blood on the chemical analytic portion of urinalysis may also be positive due to hemoglobinuria and myoglobinuria and if red blood cells are present they are quantified by microscopic examination. Performed By: #### 4 [id number] #### LAB [address] [place] [address] Dallin Donahue M.D. [id number] UROBILINOGEN, URINE >=4.0 Abnormal <2.0 [facility] Comment [...] By: #### 4 6625 #### [facility] [address] [address] Dallin Donahue M.D. [id number] WBC LM.HPF (Urine sed) [#/Area] 15 /[HPF] High 0-5 [facility] Comment on above: Order Comment: Micro scopic examination is performed on all urinalysis samples and only positive findings are reported. The test for blood on the chemical analytic portion of urinalysis may also be positive due to hemoglobinuria and myoglobinuria and if red blood cells are present they are quantified by microscopic examination. Performed By: #### 4 [id number] #### LAB [address] [place] [address] Dallin Donahue M.D. [id number] HCQPCRon 12-10-2020 Hepatitis C RNA 18996 IU/mL Abnormal [facility] ([place] Comment on above: Result Comment: INTE RPRETATION: Positive for HCV RNA by PCR. (*) The Linear Range of this assay is 15 IU/mL to 100,000,000 IU/mL. Reference Range: Negative for HCV RNA Performed By: [facility] [facility] [place] [address] Automatic Corn Grinder Operator: Quentin Escamilla III, M.D. CLIA#: [id number] Phone#: Performed By: #### C BC, ADIFF, ANEU, BMP, GFR #### [place] [address] HBCABon 12-09-2020 Hep B Core Ab Positive Abnormal NEGAT [facility] ([place]) Comment on above: Result Comment: Perf ormed By: [facility] [employer] [place] [address] Automatic Corn Grinder Operator: Quentin Escamilla III, M.D. CLIA#: [id number] Phone#: Performed By: #### C BC, ADIFF, ANEU, BMP, GFR #### [address] [address] .GFRon 12-08-2020 GFR Non- >60 Normal [facility] ([place]) Comment on above: Result Comment: GFR Population [...] C BC, ADIFF, ANEU, BMP, GFR #### [address] [address] GFR >60 Normal [facility] ([place]) Comment on above: Result Comment: GFR Population [...] C BC, ADIFF, ANEU, BMP, GFR #### [address] [address] CMPon 12-08-2020 Albumin Level 4.3 G/dL Normal 3.2-4.8 [facility] ([place]) Comment on above: Performed By: #### C BC, ADIFF, ANEU, BMP, GFR #### [place] [id number] Albumin/Globulin [Mass ratio] 1.3 {ratio} Normal 0.9-1.6 [facility] ([place]) Comment on above: Performed By: #### C BC, ADIFF, ANEU, BMP, GFR #### [place] [id number] ALP [Catalytic activity/Vol] 126 U/L Normal 38-126 [facility] ([place]) Comment on above: Performed By: #### C BC, ADIFF, ANEU, BMP, GFR #### [place] [id number] ALT [Catalytic activity/Vol] 69 U/L High 12-55 [facility] ([place]) Comment on above: Performed By: #### C BC, ADIFF, ANEU, BMP, GFR #### [place] [id number] AST [Catalytic activity/Vol] 43 U/L High 8-34 [facility] ([place]) Comment on above: Performed By: #### C BC, ADIFF, ANEU, BMP, GFR #### [place] [id number] Bili Total 0.20 mg/dL Normal 0.20-1.20 [facility] ([place]) Comment on above: Result Comment: Use of this assay is not recommended for patients undergoing treatment with eltrombopag due to the potential for falsely elevated results. Performed By: #### C BC, ADIFF, ANEU, BMP, GFR #### [place] [id number] BUN/Creatinine Ratio 17.8 ratio Normal 10.0-22.0 [facility] ([place]) Comment on above: Performed By: #### C BC, ADIFF, ANEU, BMP, GFR #### [place] [id number] Calcium [Mass/Vol] 10.0 mg/dL Normal 8.7-10.4 [facility] ([place]) Comment on above: Result Comment: No te - New Reference Range in effect 20 Performed By: #### C BC, ADIFF, ANEU, BMP, GFR #### [address] [address] Chloride [Moles/Vol] 109 mmol/L Normal 98-110 [facility] ([place]) Comment on above: Performed By: #### C BC, ADIFF, ANEU, BMP, GFR #### [address] [address] CO2 [Moles/Vol] 28 mmol/L Normal 22-32 [facility] ([place]) Comment on above: Performed By: #### C BC, ADIFF, ANEU, BMP, GFR #### [address] [address] Creatinine [Mass/Vol] 1.07 mg/dL Normal 0.60-1.40 [facility] ([place]) Comment on above: Performed By: #### C BC, ADIFF, ANEU, BMP, GFR #### [address] [address] Electrolyte Balance 4.0 mEq/L Normal 4.0-15.0 [facility] ([place]) Comment on above: Performed By: #### C BC, ADIFF, ANEU, BMP, GFR #### [address] [address] Globulin 3.2 G/dL Normal 1.5-3.8 [facility] ([place]) Comment on above: Performed By: #### C BC, ADIFF, ANEU, BMP, GFR #### [address] [address] Glucose [Mass/Vol] 104 mg/dL Normal 70-110 [facility] ([place]) Comment on above: Performed By: #### C BC, ADIFF, ANEU, BMP, GFR #### [address] [address] Potassium [Moles/Vol] 4.6 mmol/L Normal 3.5-5.0 [facility] ([place]) Comment on above: Performed By: #### C BC, ADIFF, ANEU, BMP, GFR #### [facility] [address] [place], [place] [address] Sodium [Moles/Vol] 141 mmol/L Normal 136-145 [facility] ([place]) Comment on above: Performed By: #### C BC, ADIFF, ANEU, BMP, GFR #### [address] [address] Total Protein 7.5 G/dL Normal 5.7-8.2 [facility] ([place]) Comment on above: Result Comment: No te - New Reference Range in effect 20 Performed By: #### C BC, ADIFF, ANEU, BMP, GFR #### [place] [id number] Urea nitrogen [Mass/Vol] 19.0 mg/dL Normal 8.0-22.0 [facility] ([place]) Comment on above: Performed By: #### C BC, ADIFF, ANEU, BMP, GFR #### [place] [id number] HBSABon 12-08-2020 Hep B Surf Ab 18.0 mIU/mL Normal >=10.0 [facility] ([place]) Comment on above: Result Comment: 0 to [...] C BC, ADIFF, ANEU, BMP, GFR #### [place] [id number] HBSAGon 12-08-2020 Hep B Surf Ag Non-Reactive Normal Non-Reactive [facility] ([place]) Comment on above: Performed By: #### C BC, ADIFF, ANEU, HBSAG, CMP, HBSAB, GFR, HCV1, HIV, RPR, AHBCOT, HCQPCR #### [address] [address] HCVon 12-08-2020 Hep C Ab Reactive Abnormal Non-Reactive [facility] ([place]) Comment on above: Performed By: #### C BC, ADIFF, ANEU, BMP, GFR #### [place] [address] Hep C Ab Int Normal [facility] ([place]) Comment on above: Result Comment: Reac tive: Samples with a value >/= 1.00 index are considered reactive for IgG antibodies to HCV. The presence of anti-HCV may be indicative of recent and/or past infection by Hepatitis C Virus. PATIENT MAY BE INFECTIONS. PLEASE INFORM CEMETERY WORKER. Supplemental testing for HCV RNA may detect the presence of active HCV infection. This result is a reportable disease Infection Control has been notified. See Interp Performed By: #### C BC, ADLORRI, ANEU, BMP, GFR #### [place] [address] HIVon 12-08-2020 HIV 1/2 Ab Normal Non-Reactive [facility] ([place]) Comment on above: Result Comment: Non- Reactive Specimen is negative for anti-HIV-1 and anti-HIV-2. Performed By: #### C BC, MAYR, ANEU, BMP, GFR #### [place] [address] RPRon 12-08-2020 Reagin Ab RPR Ql (S) Non-Reactive Normal Non-Reactive [facility] ([place]) Comment on above: Result Comment: The RPR [...] C BC, ADIFF, ANEU, BMP, GFR #### [place] [address] .Auto Diffon 12-07-2020 Basophil, Absolute 0.10 10 3/mcL Normal 0.00-0.27 [facility] ([place]) Comment on above: Performed By: #### C BC, ADIFF, ANEU, HBSAG, CMP, HBSAB, GFR, HCV1, HIV, RPR, AHBCOT, HCQPCR #### [address] [address] Basophils/100 WBC (Bld) 0.8 % Normal 0.0-2.5 [facility] ([place]) Comment on above: Performed By: #### C BC, ADIFF, ANEU, HBSAG, CMP, HBSAB, GFR, HCV1, HIV, RPR, AHBCOT, HCQPCR #### [address] [address] Eosinophil, Absolute 0.20 10 3/mcL Normal 0.00-0.65 A [facility] ([place]) Comment on above: Performed By: #### C BC, ADIFF, ANEU, HBSAG, CMP, HBSAB, GFR, HCV1, HIV, RPR, AHBCOT, HCQPCR #### [address] [address] Eosinophils/100 WBC (Bld) 3.5 % Normal 0.0-6.0 [facility] ([place]) Comment on above: Performed By: #### C BC, ADIFF, ANEU, HBSAG, CMP, HBSAB, GFR, HCV1, HIV, RPR, AHBCOT, HCQPCR #### [address] [address] Lymphocyte, Absolute 1.80 10 3/mcL Normal 0.90-4.32 A [facility] ([place]) Comment on above: Performed By: #### C BC, ADIFF, ANEU, HBSAG, CMP, HBSAB, GFR, HCV1, HIV, RPR, AHBCOT, HCQPCR #### [address] [address] Lymphocytes/100 WBC (Bld) 27.2 % Normal 20.0-40.0 [facility] ([place]) Comment on above: Performed By: #### C BC, ADIFF, ANEU, HBSAG, CMP, HBSAB, GFR, HCV1, HIV, RPR, AHBCOT, HCQPCR #### [address] [address] Monocyte, Absolute 0.40 10 3/mcL Normal 0.09-1.40 [facility] ([place]) Comment on above: Performed By: #### C BC, ADIFF, ANEU, HBSAG, CMP, HBSAB, GFR, HCV1, HIV, RPR, AHBCOT, HCQPCR #### [address] [address] Monocytes/100 WBC (Bld) 6.7 % Normal 2.0-13.0 [facility] ([place]) Comment on above: Performed By: #### C BC, ADIFF, ANEU, HBSAG, CMP, HBSAB, GFR, HCV1, HIV, RPR, AHBCOT, HCQPCR #### [place] [id number] Neutrophils/100 WBC (Bld) 61.8 % Normal 50.0-75.0 [facility] ([place]) Comment on above: Performed By: #### C BC, ADIFF, ANEU, HBSAG, CMP, HBSAB, GFR, HCV1, HIV, RPR, AHBCOT, HCQPCR #### [place] [address] .NEUABSon 12-07-2020 Neutrophil, Absolute 4.00 10 3/mcL Normal 2.25-8.10 A [facility] ([place]) Comment on above: Performed By: #### C BC, ADIFF, ANEU, HBSAG, CMP, HBSAB, GFR, HCV1, HIV, RPR, AHBCOT, HCQPCR #### [address] [address] CBCon 12-07-2020 Erythrocyte distribution width (RBC) [Ratio] 13.8 % Normal 11.5-15.5 [facility] ([place]) Comment on above: Performed By: #### C BC, ADIFF, ANEU, HBSAG, CMP, HBSAB, GFR, HCV1, HIV, RPR, AHBCOT, HCQPCR #### [facility] [address] [place], [place] [address] Hematocrit (Bld) [Volume fraction] 39.7 % Low 40.0-52.0 [facility] ([place]) Comment on above: Performed By: #### C BC, ADIFF, ANEU, HBSAG, CMP, HBSAB, GFR, HCV1, HIV, RPR, AHBCOT, HCQPCR #### [place] [id number] Hgb 13.6 G/dL Normal 13.0-17.5 [facility] ([place]) Comment on above: Performed By: #### C BC, ADIFF, ANEU, HBSAG, CMP, HBSAB, GFR, HCV1, HIV, RPR, AHBCOT, HCQPCR #### [place] [id number] MCH (RBC) [Entitic mass] 30.9 pg Normal 27.0-33.0 [facility] ([place]) Comment on above: Performed By: #### C BC, ADIFF, ANEU, HBSAG, CMP, HBSAB, GFR, HCV1, HIV, RPR, AHBCOT, HCQPCR #### [place] [id number] MCHC 34.3 G/dL Normal 32.0-36.0 [facility] ([place]) Comment on above: Performed By: #### C BC, ADIFF, ANEU, HBSAG, CMP, HBSAB, GFR, HCV1, HIV, RPR, AHBCOT, HCQPCR #### [place] [id number] MCV (RBC) [Entitic vol] 89.9 fL Normal 81.0-100.0 [facility] ([place]) Comment on above: Performed By: #### C BC, ADIFF, ANEU, HBSAG, CMP, HBSAB, GFR, HCV1, HIV, RPR, AHBCOT, HCQPCR #### [place] [id number] Platelet 251 10 3/mcL Normal 150-450 [facility] ([place]) Comment on above: Performed By: #### C BC, ADIFF, ANEU, HBSAG, CMP, HBSAB, GFR, HCV1, HIV, RPR, AHBCOT, HCQPCR #### [place] [address] Platelet mean volume (Bld) [Entitic vol] 8.4 fL Normal 6.4-10.5 [facility] ([place]) Comment on above: Performed By: #### C BC, ADIFF, ANEU, HBSAG, CMP, HBSAB, GFR, HCV1, HIV, RPR, AHBCOT, HCQPCR #### [place] [address] RBC 4.42 10 6/mcL Low 4.50-6.00 [facility] ([place]) Comment on above: Performed By: #### C BC, ADIFF, ANEU, HBSAG, CMP, HBSAB, GFR, HCV1, HIV, RPR, AHBCOT, HCQPCR #### [place] [address] WBC 6.50 10 3/mcL Normal 4.50-10.80 [facility] ([place]) Comment on above: Performed By: #### C BC, ADIFF, ANEU, HBSAG, CMP, HBSAB, GFR, HCV1, HIV, RPR, AHBCOT, HCQPCR #### [place] [address] .Auto Diffon 11-27-2020 Basophil, Absolute 0.00 10 3/mcL Normal 0.00-0.27 [facility] ([place]) Comment on above: Performed By: #### C BC, ADIFF, ANEU, BMP, GFR #### [place] [address] Basophils/100 WBC (Bld) 0.7 % Normal 0.0-2.5 [facility] ([place]) Comment on above: Performed By: #### C BC, ADIFF, ANEU, BMP, GFR #### [place] [address] Eosinophil, Absolute 0.10 10 3/mcL Normal 0.00-0.65 A [facility] ([place]) Comment on above: Performed By: #### C BC, ADIFF, ANEU, BMP, GFR #### [address] [address] Eosinophils/100 WBC (Bld) 1.7 % Normal 0.0-6.0 [facility] ([place]) Comment on above: Performed By: #### C BC, ADIFF, ANEU, BMP, GFR #### [address] [address] Lymphocyte, Absolute 1.80 10 3/mcL Normal 0.90-4.32 A [facility] ([place]) Comment on above: Performed By: #### C BC, ADIFF, ANEU, BMP, GFR #### [address] [address] Lymphocytes/100 WBC (Bld) 32.9 % Normal 20.0-40.0 [facility] ([place]) Comment on above: Performed By: #### C BC, ADIFF, ANEU, BMP, GFR #### [address] [address] Monocyte, Absolute 0.50 10 3/mcL Normal 0.09-1.40 [facility] ([place]) Comment on above: Performed By: #### C BC, ADIFF, ANEU, BMP, GFR #### [address] [address] Monocytes/100 WBC (Bld) 9.8 % Normal 2.0-13.0 [facility] ([place]) Comment on above: Performed By: #### C BC, ADIFF, ANEU, BMP, GFR #### [address] [address] Neutrophils/100 WBC (Bld) 54.9 % Normal 50.0-75.0 [facility] ([place]) Comment on above: Performed By: #### C BC, ADIFF, ANEU, BMP, GFR #### [address] [address] .GFRon 11-27-2020 GFR Non- >60 Normal [facility] ([place]) Comment on above: Result Comment: GFR Population [...] C BC, ADIFF, ANEU, BMP, GFR #### [address] [address] GFR >60 Normal [facility] ([place]) Comment on above: Result Comment: GFR Population [...] C BC, ADIFF, ANEU, BMP, GFR #### [address] [address] .NEUABSon 11-27-2020 Neutrophil, Absolute 3.00 10 3/mcL Normal 2.25-8.10 A [facility] ([place]) Comment on above: Performed By: #### C BC, ADIFF, ANEU, BMP, GFR #### [address] [address] BMPon 11-27-2020 BUN/Creatinine Ratio 15.1 ratio Normal 10.0-22.0 [facility] ([place]) Comment on above: Performed By: #### C BC, ADIFF, ANEU, BMP, GFR #### [address] [address] Calcium [Mass/Vol] 9.9 mg/dL Normal 8.7-10.4 [facility] ([place]) Comment on above: Result Comment: No te - New Reference Range in effect 20 Performed By: #### C BC, ADIFF, ANEU, BMP, GFR #### [address] [address] Chloride [Moles/Vol] 107 mmol/L Normal 98-110 [facility] ([place]) Comment on above: Performed By: #### C BC, ADIFF, ANEU, BMP, GFR #### [address] [address] CO2 [Moles/Vol] 28 mmol/L Normal 22-32 [facility] ([place]) Comment on above: Performed By: #### C BC, ADIFF, ANEU, BMP, GFR #### [address] [address] Creatinine [Mass/Vol] 0.93 mg/dL Normal 0.60-1.40 [facility] ([place]) Comment on above: Performed By: #### C BC, ADIFF, ANEU, BMP, GFR #### [address] [address] Electrolyte Balance 4.0 mEq/L Normal 4.0-15.0 [facility] ([place]) Comment on above: Performed By: #### C BC, ADIFF, ANEU, BMP, GFR #### [address] [address] Glucose [Mass/Vol] 102 mg/dL Normal 70-110 [facility] ([place]) Comment on above: Performed By: #### C BC, ADIFF, ANEU, BMP, GFR #### [address] [address] Potassium [Moles/Vol] 4.2 mmol/L Normal 3.5-5.0 [facility] ([place]) Comment on above: Performed By: #### C BC, ADIFF, ANEU, BMP, GFR #### [address] [address] Sodium [Moles/Vol] 139 mmol/L Normal 136-145 [facility] ([place]) Comment on above: Performed By: #### C BC, ADIFF, ANEU, BMP, GFR #### [place] [address] Urea nitrogen [Mass/Vol] 14.0 mg/dL Normal 8.0-22.0 [facility] ([place]) Comment on above: Performed By: #### C BC, ADIFF, ANEU, BMP, GFR #### [place] [id number] CBCon 11-27-2020 Erythrocyte distribution width (RBC) [Ratio] 13.9 % Normal 11.5-15.5 [facility] ([place]) Comment on above: Performed By: #### C BC, ADIFF, ANEU, BMP, GFR #### [place] [address] Hematocrit (Bld) [Volume fraction] 38.5 % Low 40.0-52.0 [facility] ([place]) Comment on above: Performed By: #### C BC, ADIFF, ANEU, BMP, GFR #### [place] [address] Hgb 13.0 G/dL Normal 13.0-17.5 [facility] ([place]) Comment on above: Performed By: #### C BC, ADIFF, ANEU, BMP, GFR #### [place] [address] MCH (RBC) [Entitic mass] 30.0 pg Normal 27.0-33.0 [facility] ([place]) Comment on above: Performed By: #### C BC, ADIFF, ANEU, BMP, GFR #### [place] [address] MCHC 33.9 G/dL Normal 32.0-36.0 [facility] ([place]) Comment on above: Performed By: #### C BC, ADIFF, ANEU, BMP, GFR #### [place] [address] MCV (RBC) [Entitic vol] 88.8 fL Normal 81.0-100.0 [facility] ([place]) Comment on above: Performed By: #### C BC, ADIFF, ANEU, BMP, GFR #### [address] [address] Platelet 203 10 3/mcL Normal 150-450 [facility] ([place]) Comment on above: Performed By: #### C BC, ADIFF, ANEU, BMP, GFR #### [address] [address] Platelet mean volume (Bld) [Entitic vol] 8.1 fL Normal 6.4-10.5 [facility] ([place]) Comment on above: Performed By: #### C BC, ADIFF, ANEU, BMP, GFR #### [place] [id number] RBC 4.33 10 6/mcL Low 4.50-6.00 [facility] ([place]) Comment on above: Performed By: #### C BC, ADIFF, ANEU, BMP, GFR #### [address] [address] WBC 5.50 10 3/mcL Normal 4.50-10.80 [facility] ([place]) Comment on above: Performed By: #### C BC, ADIFF, ANEU, BMP, GFR #### [place] [address] CT ABDOMEN/PELVIS W/O CONTRA STon 11-27-2020 CT [...] Date: 11/27/2020 1:37:40 AM Ordering Provider:Massimo Bush [facility] ([place]) Provider Note - ED v2on 0 Provider [...] made to minimize errors. Minor errors in treatment coordinator may be present. Please call if questions.. [...] just going to take the patient to [place]. I spoke with the mother and explained [...] states that we will take him to [place] where there is neurology. Patient agreed and [...] Referenced From Triage - ED 19-Jul-2020 11:42 [facility] Risk Screen - Adult Emergenc yon 07-19-2020 Risk Screen - Adult Emergency Preferred Language: Preferred Language: Preferred Language for Discussing Health Care (patient/designee)Palestinian Advanced Directives: Advance Directive/DNRno Family Violence Adult: Abuse Screen: Are you or have you been threatened or abused physically, emotionally, or sexually by anyoneno Learning Assessment (Patient): Learning Assessment (Patient): Patient is Able to be Assessed for Learningyes Factors Influencing Readiness to Learnacuteness of illness Factors that Impact Ability to Learnnone Devices/Methods Used to Communicatenone Learning Preferencesaudio Cultural Considerationsnone Developmental Considerationsnone Muslim Considerationsnone Learning Assessment (Other Learner): Learning Assessment (Other Learner): Other learner availableno Pressure Injury/TB/Substance: Pressure Injury: Do you have a coughno Substance Use Current or Former Historynever: Street Drugs YES: Cigarette/Tobacco, e-Cigarette/Vaping, Alcohol Smoking Statuscurrent every day smoker Tobaccovaping Alcohol Useoccasionally Admission Risk Screen: Significant IndicatorsComplete CAGE: CAGE: Is this an injured [place] a [place] [place]/[place]/ [place] no Electronic Signatures: Brianna Stover (RN) (Signed 19-Jul-2020 11:48) Authored: Preferred Language, Advanced Directives, Family Violence Adult, Learning Assessment (Patient), Learning Assessment (Other Learner), Pressure Injury/TB/Substance, Pressure Injury, CAGE Last Updated: 19-Jul-2020 11:48 by Brianna Stover (RN) [facility] Triage - EDon 07-19-2020 Triage - ED Chart Review: ARRIVAL INFORMATION Means of Arrival: Ambulatory Mode of Arrival: private vehicle Arrival From: home Language: Spoken Language Preferred: Palestinian CHIEF COMPLAINT YU YOUNGER is a Male [...] obeys commands Best Verbal Response: (V5) oriented [place] Score: 15 Allergies: yes Patient has homicidal [...] Last Updated: 19-Jul-2020 11:47 by Brianna Stover) [facility] ECG 12-LEADon 12-04-2018 Caleb Starr DO 12/04/2018 3:14 AM ECG 12- Lead Date/Time: 12/04/2018 3:13 AM Performed by: Caleb Starr DO Authorized by: Caleb Starr DO Interpreted by ED physician: Normal sinus rhythm rate of [address] segment changes normal P wave and QRS axis. BPM: 89 [facility] Otheron 12-04-2018 Extra Tube Hold for add-ons. [facility] Comment on above: Auto resulted. TROPONINon 12-04-2018 Troponin I.cardiac [Mass/Vol] ng/mL <=45 ng/L [facility] Troponin I.cardiac [Mass/Vol] Normal [facility] Basic Metabolic Panelon 07-18 Calcium mass conc 9.0 mg/dL Normal 8.4-10.2 [facility] Comment on above: Performed By: #### C BCDIF, CHEM8 #### Unless otherwise noted, all testing performed by [place] [address] CLIA: [id number] Brake Reliner: Dallin Donahue M.D. Chloride molar conc 107 mmol/L Normal 98-108 [facility] Comment on above: Performed By: #### C BCDIF, CHEM8 #### Unless otherwise noted, all testing performed by [place] [address] CLIA: [id number] Brake Reliner: Dallin Donahue M.D. CO2 molar conc 27 mmol/L Normal 21-32 [facility] Comment on above: Performed By: #### C BCDIF, CHEM8 #### Unless otherwise noted, all testing performed by [place] [address] CLIA: [id number] Brake Reliner: Dallin Donahue M.D. Creatinine mass conc 1.03 mg/dL Normal 0.50-1.30 [facility] Comment on above: Performed By: #### C BCDIF, CHEM8 #### Unless otherwise noted, all testing performed by [place] [address] CLIA: [id number] Brake Reliner: Dallin Donahue M.D. GFR/1.73 sq M predicted among blacks MDRD vol rate/area (S/P/Bld) mL/min/{1.73_m2} Normal [facility] Comment on above: Result Comment: Afri can Filipino GFR Calc Performed By: #### C BCDIF, CHEM8 #### Unless otherwise noted, all testing performed by [place] [address] CLIA: [id number] Brake Reliner: Dallin Donahue M.D. GFR/1.73 sq M predicted among non-blacks MDRD vol rate/area (S/P/Bld) mL/min/{1.73_m2} [facility] Comment on above: Result Comment: Non- [...] Unless otherwise noted, all testing performed by [place] [address] CLIA: [id number] Brake Reliner: Dallin Donahue M.D. Glucose mass conc 100 mg/dL High 70-99 [facility] Comment on above: Result Comment: This test result might be falsely depressed or falsely elevated on samples drawn from patients taking Sulfasalazine and Sulfapyridine. Venipuncture should occur prior to taking either of these drugs. Performed By: #### C BCDIF, CHEM8 #### Unless otherwise noted, all testing performed by [place] [address] CLIA: [id number] Brake Reliner: Dallin Donahue M.D. Potassium molar conc 3.9 mmol/L Normal 3.5-5.1 [facility] Comment on above: Performed By: #### C BCDIF, CHEM8 #### Unless otherwise noted, all testing performed by [place] [address] CLIA: [id number] Brake Reliner: Dallin Donahue M.D. Sodium molar conc 139 mmol/L Normal 135-145 [facility] Comment on above: Performed By: #### C BCDIF, CHEM8 #### Unless otherwise noted, all testing performed by [place] [phone] CLIA: [id number] Brake Reliner: Dallin Donahue M.D. Urea nitrogen mass conc 12 mg/dL Normal 8-25 [facility] Comment on above: Performed By: #### C BCDIF, CHEM8 #### Unless otherwise noted, all testing performed by [place] [phone] CLIA: [id number] Brake Reliner: Dallin Donahue M.D. CBC with Diffon 07-27-2018 Basophils #/vol (Bld) 0.1 K/mcL Normal 0-0.2 [facility] Comment on above: Performed By: #### C BCDIF, CHEM8 #### Unless otherwise noted, all testing performed by [place] [address] CLIA: [id number] Brake Reliner: Dallin Donahue M.D. Basophils/100 WBC (Bld) 0.8 % Normal [facility] Comment on above: Performed By: #### C BCDIF, CHEM8 #### Unless otherwise noted, all testing performed by [place] [address] CLIA: [id number] Brake Reliner: Dallin Donahue M.D. Eosinophils #/vol (Bld) 0.1 K/mcL Normal 0-0.5 [facility] Comment on above: Performed By: #### C BCDIF, CHEM8 #### Unless otherwise noted, all testing performed by [place] [address] CLIA: [id number] Brake Reliner: Dallin Donahue M.D. Eosinophils/100 WBC (Bld) 1.5 % Normal [facility] Comment on above: Performed By: #### C BCDIF, CHEM8 #### Unless otherwise noted, all testing performed by [place] [address] CLIA: [id number] Brake Reliner: Dallin Donahue M.D. Erythrocyte distribution width Ratio (RBC) 12.7 % Normal 10-14.3 [facility] Comment on above: Performed By: #### C BCDIF, CHEM8 #### Unless otherwise noted, all testing performed by [place] [address] CLIA: [id number] Brake Reliner: Dallin Donahue M.D. Hematocrit Volume Fraction (Bld) 43.3 % Normal 37.9-49.2 [facility] Comment on above: Performed By: #### C BCDIF, CHEM8 #### Unless otherwise noted, [facility] [place] [address] CLIA: [id number] Brake Reliner: Dallin Donahue M.D. Hemoglobin mass conc (Bld) 14.6 g/dL Normal 12.9-16.9 [facility] Comment on above: Performed By: #### C BCDIF, CHEM8 #### Unless otherwise noted, all testing performed by [place] [address] CLIA: [id number] Brake Reliner: Dallin Donahue M.D. Lymphocytes #/vol (Bld) 1.7 K/mcL Normal 0.9-3.6 [facility] Comment on above: Performed By: #### C BCDIF, CHEM8 #### Unless otherwise noted, all testing performed by [place] [address] CLIA: [id number] Brake Reliner: Dallin Donahue M.D. Lymphocytes/100 WBC (Bld) 27.1 % Normal [facility] Comment on above: Performed By: #### C BCDIF, CHEM8 #### Unless otherwise noted, all testing performed by [place] [address] CLIA: [id number] Brake Reliner: Dallin Donahue M.D. MCH Entitic mass (RBC) 30.3 pg Normal 27.7-34.6 [facility] Comment on above: Performed By: #### C BCDIF, CHEM8 #### Unless otherwise noted, all testing performed by [place] [address] CLIA: [id number] Brake Reliner: Dallin Donahue M.D. MCHC mass conc (RBC) 33.7 g/dL Normal 32.9-35.5 [facility] Comment on above: Performed By: #### C BCDIF, CHEM8 #### Unless otherwise noted, all testing performed by [place] [address] CLIA: [id number] Brake Reliner: Dallin Donahue M.D. MCV Entitic volume (RBC) 89.9 fL Normal 82.8-99.3 [facility] Comment on above: Performed By: #### C BCDIF, CHEM8 #### Unless otherwise noted, all testing performed by [place] [phone] CLIA: [id number] Brake Reliner: Dallin Donahue M.D. Monocytes #/vol (Bld) 0.8 K/mcL High 0.2-0.6 [facility] Comment on above: Performed By: #### C BCDIF, CHEM8 #### Unless otherwise noted, all testing performed by [place] [phone] CLIA: [id number] Brake Reliner: Dallin Donahue M.D. Monocytes/100 WBC (Bld) 12.1 % Normal [facility] Comment on above: Performed By: #### C BCDIF, CHEM8 #### Unless otherwise noted, all testing performed by [place] [phone] CLIA: [id number] Brake Reliner: Dallin Donahue M.D. Neutrophils #/vol (Bld) 3.7 K/mcL Normal 1.4-6.8 [facility] Comment on above: Performed By: #### C BCDIF, CHEM8 #### Unless otherwise noted, all testing performed by [address], [place] [address] CLIA: [id number] Brake Reliner: Dallin Donahue M.D. Platelet mean volume Entitic volume (Bld) 8.6 fL Normal 6.6-10.8 [facility] Comment on above: Performed By: #### C BCDIF, CHEM8 #### Unless otherwise noted, all testing performed by [place] [address] CLIA: [id number] Brake Reliner: Dallin Donahue M.D. Platelets #/vol (Bld) 219 K/mcL Normal 139-354 [facility] Comment on above: Performed By: #### C BCDIF, CHEM8 #### Unless otherwise noted, all testing performed by [place] [address] CLIA: [id number] Brake Reliner: Dallin Donahue M.D. RBC #/vol (Bld) 4.82 M/mcL Normal 4.0-5.5 [facility] Comment on above: Performed By: #### C BCDIF, CHEM8 #### Unless otherwise noted, all testing performed by [place] [address] CLIA: [id number] Brake Reliner: Dallin Donahue M.D. Segmented Neut % 58.5 % Normal [facility] Comment on above: Performed By: #### C BCDIF, CHEM8 #### Unless otherwise noted, all testing performed by [place] [address] CLIA: [id number] Brake Reliner: Dallin Donahue M.D. WBC #/vol (Bld) 6.4 K/mcL Normal 3.6-10.4 [facility] Comment on above: Performed By: #### C BCDIF, CHEM8 #### Unless otherwise noted, all testing performed by [facility] [address] [place], [place] [address] CLIA: [id number] Brake Reliner: Dallin Donahue M.D. CT ABDO,PELVIS W/O CONTRASTo n 07-27-2018 CT ABDO,PELVIS W/O CONTRAST Final Report Accession No: [id number] Performed: Jul 26 2018 11:37PM Examination: [...] WEN M.D. Trans: cwion : cc: Normal [facility] US SCROTUMon 07-27-2018 US SCROTUM Final Report Accession No: [id number] Performed: Jul 27 2018 1:42AM Examination: [...] CARTER M.D. Trans: cwion : cc: Normal [facility] Urinalysis, Routineon 2018 Bilirubin,Urine Negative Normal NEG;NEGATIVE [facility] Comment on above: Performed By: #### U A #### Unless otherwise noted, all testing performed by [place] [address] CLIA: [id number] Brake Reliner: Dallin Donahue M.D. Blood,Urine Large Abnormal NEG;NEGATIVE [facility] Comment on above: Performed By: #### U A #### Unless otherwise noted, all testing performed by [place] [address] CLIA: [id number] Brake Reliner: Dallin Donahue M.D. Character Nom (U) Hazy Normal [facility] Comment on above: Performed By: #### U A #### Unless otherwise noted, all testing performed by [place] [address] CLIA: [id number] Brake Reliner: Dallin Donahue M.D. Color Nom (U) Yellow Normal [facility] Comment on above: Performed By: #### U A #### Unless otherwise noted, all testing performed by [place] [phone] CLIA: [id number] Brake Reliner: Dallin Donahue M.D. Glucose Ql (U) Negative Normal NEG;NEGATIVE [facility] Comment on above: Performed By: #### U A #### Unless otherwise noted, all testing performed by [place] [phone] CLIA: [id number] Brake Reliner: Dallin Donahue M.D. Ketone,Urine Negative Normal NEG;NEGATIVE [facility] Comment on above: Performed By: #### U A #### Unless otherwise noted, all testing performed by [place] [phone] CLIA: [id number] Brake Reliner: Dallin Donahue M.D. Leuk.Esterase,Urine Negative Normal Negative [facility] Comment on above: Performed By: #### U A #### Unless otherwise noted, all testing performed by [place] [phone] CLIA: [id number] Brake Reliner: Dallin Donahue M.D. Nitrite,Urine Negative Normal NEG;NEGATIVE [facility] Comment on above: Performed By: #### U A #### Unless otherwise noted, all testing performed by [place] [phone] CLIA: [id number] Brake Reliner: Dallin Donahue M.D. pH (U) 7.0 [pH] Normal 4.5-8.0 [facility] Comment on above: Performed By: #### U A #### Unless otherwise noted, all testing performed by [place] [address] CLIA: [id number] Brake Reliner: Dallin Donahue M.D. Protein mass conc (U) Negative Normal NEG;NEGATIVE [facility] [place] [facility] Comment on above: Performed By: #### U A #### Unless otherwise noted, all testing performed by [place] [address] CLIA: [id number] Brake Reliner: Dallin Donahue M.D. RBC LM.HPF #/area (Urine sed) /[HPF] High 0-5 [facility] Comment on above: Performed By: #### U A #### Unless otherwise noted, all testing performed by [place] [address] CLIA: [id number] Brake Reliner: Dallin Donahue M.D. Specific [place],Urine 1.018 Normal 1.003-1.029 [facility] [place] [facility] Comment on above: Performed By: #### U A #### Unless otherwise noted, all testing performed by [place] [address] CLIA: [id number] Brake Reliner: Dallin Donahue M.D. Urobilinogen,Urine NORMAL [facility] Comment on above: Result Comment: Urob ilinogen, Urine Reference Range: <2.0 mg/dL Performed By: #### U A #### Unless otherwise noted, all testing performed by [place] [address] CLIA: [id number] Brake Reliner: Dallin Donahue M.D. WBC,Urine 3 /HPF Normal 0-5 [facility] Comment on above: Performed By: #### U A #### Unless otherwise noted, all testing performed by [facility] [address] [place], [place] [address] CLIA: [id number] Brake Reliner: Dallin Donahue M.D. Basic Metabolic Panelon Calcium mass conc 9.0 mg/dL 8.4 - 10.2 mg/dL [facility] Chloride molar conc 107 mmol/L 98 - 108 mmol/L [facility] CO2 molar conc 27 mmol/L 21 - 32 mmol/L [facility] Creatinine mass conc 1.03 mg/dL 0.5 - 1 .3 mg/dL [facility] GFR/1.73 sq M predicted among blacks MDRD vol rate/area (S/P/Bld) mL/min/{1.73_m2} ml/min/1.73s q.m [facility] Comment on above: GFR Calc GFR/1.73 sq M predicted among non-blacks MDRD vol rate/area (S/P/Bld) mL/min/{1.73_m2} ml/min/1.73s q.m [facility] Comment on above: Non- GFR Calc [...] 100 mg/dL High 70 - 99 mg/dL [facility] Comment on above: This test result sharri ht be falsely depressed or falsely elevated on samples drawn from patients taking Sulfasalazine and Sulfapyridine. Venipuncture should occur prior to taking either of these drugs. Interpretation and review of laboratory results Abnormal [facility] Potassium molar conc 3.9 mmol/L 3.5 - 5 .1 mmol/L [facility] Sodium molar conc 139 mmol/L 135 - 145 mmol/L [facility] Urea nitrogen mass conc 12 mg/dL 8 - 25 mg/dL [facility] CBC AND DIFFERENTIALon 07-26 Basophils #/vol (Bld) 0.1 10*3/uL [facility] Basophils/100 WBC (Bld) 0.8 % [facility] Eosinophils #/vol (Bld) 0.1 10*3/uL [facility] Eosinophils/100 WBC (Bld) 1.5 % [facility] Erythrocyte distribution width Ratio (RBC) 12.7 % 10 - 14.3 % [facility] Hematocrit Volume Fraction (Bld) 43.3 % 37.9 - 49.2 % [facility] Hemoglobin mass conc (Bld) 14.6 g/dL 12.9 - 16.9 g/dL [facility] Interpretation and review of laboratory results Abnormal [facility] Lymphocytes #/vol (Bld) 1.7 10*3/uL [facility] Lymphocytes/100 WBC (Bld) 27.1 % [facility] MCH Entitic mass (RBC) 30.3 pg 27.7 - 34.6 pg [facility] MCHC mass conc (RBC) 33.7 g/dL 32.9 - 35.5 g/dL [facility] MCV Entitic volume (RBC) 89.9 fL [facility] Monocytes #/vol (Bld) 0.8 10*3/uL High [facility] Monocytes/100 WBC (Bld) 12.1 % [facility] Neutrophils #/vol (Bld) 3.7 10*3/uL [facility] Platelet mean volume Entitic volume (Bld) 8.6 fL [facility] Platelets #/vol (Bld) 219 10*3/uL [facility] RBC #/vol (Bld) 4.82 10*6/uL [facility] Segmented Neut 58.5 % [facility] WBC #/vol (Bld) 6.4 10*3/uL [facility] URINALYSISon 07-26-2018 Bilirubin, Urine Negative NEG;NEGATIVE [facility] Blood, Urine Large Abnormal NEG;NEGATIVE [facility] Character Nom (U) Hazy [facility] Color Nom (U) Yellow [facility] Glucose Ql (U) Negative NEG;NEGATIVE mg/dL [facility] Interpretation and review of laboratory results Abnormal [facility] Ketones Ql (U) Negative NEG;NEGATIVE mg/dL [facility] Leukocyte esterase Test strip Ql (U) Negative Negative [facility] Nitrite, Urine Negative NEG;NEGATIVE [facility] pH (U) 7.0 [pH] [facility] Protein mass conc (U) Negative NEG;NE GATIVE mg/dL [facility] RBC #/vol (U) /uL High [facility] Specific gravity Relative Density (U) 1.018 [facility] Urobilinogen, Urine NORMAL mg/dL [facility] Comment on above: Urobilinogen, Urine Reference Range: <2.0 mg/dL WBCs, Urine 3 [facility] Basic Metabolic Panelon 10- Calcium mass conc 9.6 mg/dL Normal 8.4-10.2 [facility] Comment on above: Performed By: #### C HEM8, MG #### Unless otherwise noted, all testing performed by [place] [address] CLIA: [id number] Brake Reliner: Dallin Donahue M.D. Chloride molar conc 107 mmol/L Normal 98-108 [facility] Comment on above: Performed By: #### C HEM8, MG #### Unless otherwise noted, all testing performed by [place] [phone] CLIA: [id number] Brake Reliner: Dallin Donahue M.D. CO2 molar conc 31 mmol/L Normal 21-32 [facility] Comment on above: Performed By: #### C HEM8, MG #### Unless otherwise noted, all testing performed by [place] [address] CLIA: [id number] Brake Reliner: Dallin Donahue M.D. Creatinine mass conc 0.89 mg/dL Normal 0.50-1.30 [facility] Comment on above: Performed By: #### C HEM8, MG #### Unless otherwise noted, all testing performed by [place] [address] CLIA: [id number] Brake Reliner: Dallin Donahue M.D. GFR/1.73 sq M predicted among blacks MDRD vol rate/area (S/P/Bld) mL/min/{1.73_m2} Normal [facility] Comment on above: Result Comment: Afri can Filipino GFR Calc Performed By: #### C HEM8, MG #### Unless otherwise noted, all testing performed by [place] [address] CLIA: [id number] Brake Reliner: Dallin Donahue M.D. GFR/1.73 sq M predicted among non-blacks MDRD vol rate/area (S/P/Bld) mL/min/{1.73_m2} Normal [facility] Comment on above: Result Comment: [...] Unless otherwise noted, all testing performed by [place] [address] CLIA: [id number] Brake Reliner: Dallin Donahue M.D. Glucose mass conc 86 mg/dL Normal 70-99 [facility] Comment on above: Result Comment: This test result might be falsely depressed or falsely elevated on samples drawn from patients taking Sulfasalazine and Sulfapyridine. Venipuncture should occur prior to taking either of these drugs. Performed By: #### C HEM8, MG #### Unless otherwise noted, all testing performed by [place] [address] CLIA: [id number] Brake Reliner: Dallin Donahue M.D. Potassium molar conc 4.6 mmol/L Normal 3.5-5.1 [facility] Comment on above: Performed By: #### C HEM8, MG #### Unless otherwise noted, all testing performed by [facility] [place] [address] CLIA: [id number] Brake Reliner: Dallin Donahue M.D. Sodium molar conc 141 mmol/L Normal 135-145 [facility] Comment on above: Performed By: #### C HEM8, MG #### Unless otherwise noted, all testing performed by [place] [address] CLIA: [id number] Brake Reliner: Dallin Donahue M.D. Urea nitrogen mass conc 16 mg/dL Normal 8-25 [facility] Comment on above: Performed By: #### C HEM8, MG #### Unless otherwise noted, all testing performed by [place] [address] CLIA: [id number] Brake Reliner: Dallin Donahue M.D. Magnesiumon 04-02-2018 Magnesium mass conc 2.3 mg/dL Normal 1.6-2.4 [facility] Comment on above: Performed By: #### C HEM8, MG #### Unless otherwise noted, all testing performed by [place] [address] CLIA: [id number] Brake Reliner: Dallin Donahue M.D. C URINEon 12-15-2017 C URINE [facility] [address] [facility], [id number] Name: YU YOUNGER : 1990 Admitting Provider:Gender: Male Financial [phone] Number: Location: [facility]; EX22; 1Admit 12/12/2017Date:Discharge 12/12/2017Date: MicrobiologyPROCEDURE: [...] Abnormal, C=Critical, f=Footnote,c=Corrected, i=Interp DataName: YU YOUNGERMRN: [id number] Print Date/ 12/15/2017 07:23 EDT Time:[facility] [address] [facility] [id number] Name: YU YOUNGER : 1990 Admitting Provider:Gender: Male Financial [phone] Number: Location: [facility]; EX22; 1Admit 12/12/2017Date:Discharge 12/12/2017Date: MicrobiologySUSCEPTIBI LITY RESULTS Escherichia coliAntibiotic SUSY InterpCiprofloxacin SusceptibleGentamicin SusceptibleNitrofurantoin SusceptiblePiperacillin/T azobactam SusceptibleTrimethoprim/S ulfamethoxazole Susceptible L=Low, H= High, *= Abnormal, C=Critical, f=Footnote,c=Corrected, i=Interp DataName: HARI YOUNGER: [id number] Print Date12/15/2017 07:23 EDT Time: Normal [facility] Comment on above: Performed By: #### 1 [id number] ####[facility] U[address]jye52836 [place], [place] [address] Medical Director: Kelvin Zamorano MD [facility]UTEMETAo 12-13-2017 Albumin/Globulin Ratio 1.1 {ratio} Normal [facility] Comment on above: Performed By: #### 9 429809, 784707, 029028 ####[facility] [address]ewax49397 [place], [place] [address] Medical Director: Kelvin Zamorano MD BUN/Creatinine Ratio 11.0 mg/mg Normal [facility] Comment on above: Performed By: #### 9 844942, 656239, 292202 ####[facility] Nrhbwywf22925 [place] [address] Medical Director: Kelvin Zamorano MD eGFR (non-black) mL/min/{1.73_m2} Normal [facility] Comment on above: Result Comment: Non GFR [...] for drug dosing. Performed By: #### 9 496011, 957280, 143741 ####[facility] [address]onygxdy12057 [place] [address] Medical Director: Kelvin Zamorano MD Result Comment: Afri can Filipino GFR CalcMedical judgement is necessary to interpret [...] drug dosing. Osmolality 279 mOsm/kg Normal 275-295 [facility] Comment on above: Performed By: #### 9 037991, 396226, 984872 ####[facility] Uaagmlid53417 [place] [address] Medical Director: Kelvin Zamorano MD Albumin 4.0 g/dL Normal 3.4-5.0 [facility] Comment on above: Performed By: #### 9 061914, 140635, 986142 ####[facility] [address]wlquqog[address]87 [place] [address] Medical Director: Kelvin Zamorano MD Alk Phos 97 unit/L Normal 45-117 [facility] Comment on above: Performed By: #### 9 206915, 027619, 508683 ####[facility] T[address]alxqo71417 [place] [address] Medical Director: Kelvin Zamorano MD Bilirubin (total) 0.34 mg/dL Normal 0.20-1.00 [facility] Comment on above: Performed By: #### 9 795882, 221835, 753671 ####[facility] [address]kw[address]83 [place] [address] Medical Director: Kelvin Zamorano MD Calcium 8.8 mg/dL Normal 8.5-10.5 [facility] Comment on above: Performed By: #### 9 539819, 855091, 879104 ####[facility] [address]219 [place] [address] Medical Director: Kelvin Zamorano MD Chloride 106 mmol/L Normal 100-109 [facility] Comment on above: Performed By: #### 9 060870, 390674, 250521 ####[facility] Ulonvhzo34012 [place] [address] Medical Director: Kelvin Zamorano MD CO2 31.1 mmol/L Normal 21.0-32.0 [facility] Comment on above: Performed By: #### 9 895107, 260958, 580087 ####[facility] [address]y94542 [place] [address] Medical Director: Kelvin Zamorano MD Creatinine 1.1 mg/dL Normal 0.7-1.3 [facility] Comment on above: Performed By: #### 9 189861, 147073, 449605 ####[facility] Vtvultmh55795 [place] [address] Medical Director: Kelvin Zamorano MD Globulin 3.8 g/dL Normal [facility] Comment on above: Performed By: #### 9 297355, 745362, 640876 ####[facility] Wy[address]ajvmd06422 [place] [address] Medical Director: Kelvin Zamorano MD Glucose mass conc 92 mg/dL Normal 72-100 [facility] Comment on above: Result Comment: Candice puncture should occur prior to sulfasalazine administration due to the potential for falsely depressed results. Venipuncture should occur prior to sulfapyridine administration due to the potential falsely elevated results.Baseline assay values before administration of sulfasalazine and sulfapyridine therapy would not be affected. Performed By: #### 9 003632, 185652, 592308 ####[facility] [address]vhqdcvd26752 [place] [address] Medical Director: Kelvin Zamorano MD GOT 13 unit/L Low 15-37 [facility] Comment on above: Result Comment: Candice puncture should occur prior to sulfasalazine and/or sulfapyridine administration due to the potential for falsely depressed results.Baseline assay values before administration of sulfasalazine and sulfapyridine therapy would not be affected. Performed By: #### 9 584292, 170837, 750042 ####[facility] [address]ngin10886 [place] [address] Medical Director: Kelvin Zamorano MD GPT 17 unit/L Normal 16-61 [facility] Comment on above: Result Comment: Candice puncture should occur prior to sulfasalazine and/or sulfapyridine administration due to the potential for falsely depressed results.Baseline assay values before administration of sulfasalazine and sulfapyridine therapy would not be affected. Performed By: #### 9 728296, 073620, 887094 ####[facility] R[address]fbgiym47812 [place] [address] Medical Director: Kelvin Zamorano MD Potassium molar conc 3.8 mmol/L Normal 3.5-5.1 [facility] Comment on above: Performed By: #### 9 760464, 222539, 288751 ####[facility] [address]mugwk[address]06 [place] [address] Medical Director: Kelvin Zamorano MD Protein 7.8 g/dL Normal 6.0-8.5 [facility] Comment on above: Performed By: #### 9 024086, 409133, 251839 ####[facility] Upxmtfnb85105 [place] [address] Medical Director: Kelvin Zamorano MD Sodium 140 mmol/L Normal 135-145 [facility] Comment on above: Performed By: #### 9 250957, 740059, 348678 ####[facility] [address]fumaluy[address]198 [place] [address] Medical Director: Kelvin Zamorano MD Urea nitrogen 12 mg/dL Normal 10-20 [facility] Comment on above: Performed By: #### 9 643602, 603327, 076358 ####[facility] [address] [place] [id number] Medical Director: Kelvin Zamorano MD ED Physician [...] Color, U Yellow Appearance, U Clear Specific [place], U 1.023 NORMAL pH, U 6.0 NORMAL [...] /100WBC NA Lymph % 29.2 % NA [place] % 6.9 % NA Neutrophil % 63.6 % NA Eosin % 0.3 % NA Basos % 0.1 % NA Lymph Count 2.27 x1000 NORMAL [place] Count 0.54 x1000 NORMAL Neutrophil Count (ANC) [...] Plan Diagnosis Acute right-sided low back pain (WYV08-QI M54.5, Discharge, Emergency medicine, Medical) Bulging lumbar disc (HFH56-DU M51.26, Discharge, Emergency medicine, Medical) Plan Condition: [...] Appointment, only if needed Family Practice doctor oriental medicine practitioner at [facility]-Call as needed.Return to ER as needed.. [...] DIONNE INFANTE, YU Salazar 12/12/2017 22:41 Normal [facility] ED Progress Noteon 8 ED Progress [...] PT AMBULATED TO LOBBY WITH FATHER Normal [facility] LIPon 12-13-2017 Lipase 137 unit/L Normal 73-393 [facility] Comment on above: Performed By: #### 9 285650, 671324, 654967 ####[facility] G[address]wpwqu41754 [place], [place] [address]) [phone] Director: Kelvin Zamorano MD UAon 12-13-2017 U MICRO Indicated Normal [facility] Comment on above: Performed By: #### 1 10785 ####[facility] [address]dpzh[address]31[address] [place], [place] [address]) [phone] Director: Kelvin Zamorano MD Appearance, U Clear Normal [facility] Comment on above: Performed By: #### 1 80683 ####[facility] Upeariiq01494 [place], [place] [address]) [phone] Director: Kelvin Zamorano MD Bilirubin (direct) Negative Normal Negative [facility] Comment on above: Performed By: #### 1 30161 ####[facility] Nm[address]n769[address] [place], [place] [address]) [phone] Director: Kelvin Zamorano MD Blood, U Negative Normal Negative [facility] Comment on above: Performed By: #### 1 17271 ####[facility] Csbmyunb87540 [place], [place] [address]) [phone] Director: Kelvin Zamorano MD Calcium Occasional Normal [facility] Comment on above: Performed By: #### 1 04957 ####[facility] Vlonoqed87906 [place], [place] [address]) [phone] Director: Kelvin Zamorano MD Color, U Yellow Normal [facility] Comment on above: Performed By: #### 1 23347 ####[facility] Enlzcrro90[address] [place], [place] [address]) [phone] Director: Kelvin Zamorano MD Erythrocytes (RBC) 1 #/HPF Normal 0-3 [facility] Comment on above: Performed By: #### 1 62601 ####[facility] [address]bpnuvqe73327 [place] [address] Medical Director: Kelvin Zamorano MD Glucose Qual, U Negative Normal Negative [facility] Comment on above: Performed By: #### 1 29337 ####[facility] Xtitsypb75[address] [place], [place] [address]) [phone] Director: Kelvin Zamorano MD Ketones, U Negative Normal Negative [facility] Comment on above: Performed By: #### 1 79667 ####[facility] [address] [place] [address] Medical Director: Kelvin Zamorano MD Leukocyte Esterase, U Trace Abnormal Negative [facility] Comment on above: Performed By: #### 1 [id number] ####[facility] [address] [place] [address] Medical Director: Kelvin Zamorano MD Mucous, U Occasional Normal [facility] Comment on above: Performed By: #### 1 [id number] ####[facility] [address] [place] [address] Medical Director: Kelvin Zamorano MD Nitrite, U Negative Normal Negative [facility] Comment on above: Performed By: #### 1 [id number] ####[facility] [address] [place] [address] Medical Director: Kelvin Zamorano MD pH, U 6.0 Normal 4.5-8.0 [facility] Comment on above: Performed By: #### 1 [id number] ####[facility] Taymnrxn81546 [place], [place] [id number]) [phone] Director: Kelvin Zamorano MD Protein, U Negative Normal Negative [facility] Comment on above: Performed By: #### 1 [id number] ####[facility] Hxhbzrny78238 [place] [address] Medical Director: Kelvin Zamorano MD Specific [place], U 1.023 Normal 1.001-1.035 [facility] Comment on above: Performed By: #### 1 56254 ####[facility] Czerontx90921 [place] [address] Medical Director: Kelvin Zamorano MD Urobilinogen Qual, U 2.0 mg/dl Abnormal <2.0 mg/dl [facility] Comment on above: Result Comment: EU/d l and mg/dl are equivalent units. Performed By: #### 1 [id number] ####[facility] [address] [address] Medical Director: Kelvin Zamorano MD WBC (Leukocytes) 2 #/HPF Normal 0-5 [facility] Comment on above: Performed By: #### 1 [id number] ####[facility] [place] [id number] Medical Director: Kelvin Zamorano MD AUTO DIFFon 12-12-2017 Basophils Auto #/vol (Bld) 0.01 x1000 Normal 0.00-0.20 [facility] Comment on above: Performed By: #### 9 [id number], [id number], [id number] ####[facility] [address] [place] [address] Medical Director: Kelvin Zamorano MD Basos % 0.1 % Normal [facility] Comment on above: Performed By: #### 9 [id number], 709319, 094379 ####[facility] [address] [place] [address] Medical Director: Kelvin Zamorano MD Eos Count 0.02 x1000 Normal 0.00-0.50 [facility] Comment on above: Performed By: #### 9 [id number], [id number], 294694 ####[facility] Xauwplrk62277 [place] [address] Medical Director: Kelvin Zamorano MD Eosinophils/100 leukocytes 0.3 % Normal [facility] Comment on above: Performed By: #### 9 [id number], 845897, 150123 ####[facility] Tximrotz43566 [place] [address] Medical Director: Kelvin Zamorano MD Lymphocytes 2.27 x1000 Normal 1.20-4.80 [facility] Comment on above: Performed By: #### 9 [id number], 685500, 818141 ####[facility] Ezrterih91563 [place] [address] Medical Director: Kelvin Zamorano MD Lymphocytes/100 leukocytes 29.2 % Normal [facility] Comment on above: Performed By: #### 9 [id number], 143723, 122574 ####[facility] Swzmcrun29583 [place] [address] Medical Director: Kelvin Zamorano MD Callahan Count 0.54 x1000 Normal 0.10-1.00 [facility] Comment on above: Performed By: #### 9 [id number], [id number], 078808 ####[facility] Kmqdlsoe43532 [place] [address] Medical Director: Kelvin Zamorano MD Monocytes/100 leukocytes 6.9 % Normal [facility] Comment on above: Performed By: #### 9 [id number], [id number], 040109 ####[facility] Tghkuxgo33671 [place] [address] Medical Director: Kelvin Zamorano MD Neutrophils 4.96 x1000 Normal 1.40-8.80 [facility] Comment on above: Performed By: #### 9 [id number], 583405, 740375 ####[facility] Lvmopvew34216 [place] [address] Medical Director: Kelvin Zamorano MD Neutrophils/100 WBC Auto (Bld) 63.6 % Normal [facility] Comment on above: Performed By: #### 9 [id number], 133404, 627529 ####[facility] Zbleihda90732 [place] [address] Medical Director: Kelvin Zamorano MD CT ABD [...] Ruth WOODRUFF MD Out: 12/12/17 22:00:03 Normal [facility] Bacterial susceptibility schaffer el by Aditi 08-24-2017 Bacterial susceptibility panel by [facility] ORDERED BY: REUBEN ECHAVARRIA: Urine Clean Catch COLLECTED: 08/24/17 17:15ANTIBIOTICS AT [facility].: RECEIVED : 08/24/17 20:24Culture, Urine FINAL 08/27/17 09:24 50,000 CFU/ml Escherichia coli E. coli ANTIBIOTICS SUSY Interp __Ampicillin 4 S Cefazolin <=4 S Ciprofloxacin <=0.25 S Gentamicin <=1 S Nitrofurantoin 32 S Trimethoprim/Sulfamethoxa zole <=20 S __ S=SUSCEPTIBLE I=INTERMEDIATE R=RESISTANT Normal [facility] CBC With Platelet and Differ entialon 08-24-2017 Basophils Auto #/vol (Bld) 0.0 10*3/uL Normal 0.0-0.2 [facility] Basophils/100 WBC Auto (Bld) 0.2 % Normal [facility] Eosinophils 0.0 10*3/uL Normal 0.0-0.7 [facility] Eosinophils/100 leukocytes 0.3 % Normal [facility] Erythrocyte distribution width Auto Ratio (RBC) 14.3 % Normal 11.5-14.5 [facility] Erythrocytes (RBC) 4.86 10*6/uL Normal 4.70-6.10 [facility] Hematocrit (HCT) 42.2 % Normal 42.0-52.0 [facility] Hemoglobin mass conc (Bld) 14.3 g/dL Normal 14.0-18.0 [facility] Lymphocytes 3.1 10*3/uL Normal 1.0-4.8 [facility] Lymphocytes/100 leukocytes 28.0 % Normal [facility] MCH 29.5 pg Normal 27.0-31.3 [facility] MCHC mass conc (RBC) 33.9 % Normal 33.0-37.0 [facility] MCV 86.8 fL Normal 80.0-100.0 [facility] Monocytes 0.8 10*3/uL Normal 0.2-0.8 [facility] Monocytes/100 leukocytes 7.1 % Normal [facility] Neutrophils 7.2 10*3/uL Critically high 1.4-6.5 [facility] Neutrophils/100 leukocytes 64.4 % Normal [facility] Platelets 259 10*3/uL Normal 130-400 [facility] WBC (Leukocytes) 11.1 10*3/uL Critically high 4.8-10.8 [facility] CT KIDNEY WO CONTRASTon 08-15 CT [...] by:SHIVA Craigigned by:Ankur Barber MD08/25/18Final result Normal [facility] Comprehensive Metabolic Pane bren 08-24-2017 Alanine aminotransferase (ALT) 14 U/L Normal 0-41 [facility] Albumin 4.8 g/dL Normal 3.9-4.9 [facility] Alkaline phosphatase (ALP) 101 U/L Normal 35-104 [facility] Anion gap 15 mmol/L Critically high 7-13 [facility] Aspartate aminotransferase (AST) 17 U/L Normal 0-40 [facility] Bilirubin (total) 0.4 mg/dL Normal 0.0-1.2 [facility] Calcium 9.6 mg/dL Normal 8.6-10.2 [facility] Chloride 103 mmol/L Normal 98-107 [facility] CO2 25 mmol/L Normal 22-29 [facility] Creatinine 0.73 mg/dL Normal 0.70-1.20 [facility] eGFR (black) mL/min/{1.73_m2} Normal >60 [facility] Comment on above: Result Comment: >60 mL/min/1.73m2 EGFR, calc. for ages 18 and older using theMDRD formula (not corrected for weight), is valid for stablerenal function. eGFR (MDRD) mL/min/{1.73_m2} Normal >60 [facility] Comment on above: Result Comment: >60 mL/min/1.73m2 EGFR, calc. for ages 18 and older using theMDRD formula (not corrected for weight), is valid for stablerenal function. Globulin 3.3 g/dL Normal 2.3-3.5 [facility] Glucose mass conc 91 mg/dL Normal 74-109 [facility] Potassium molar conc 4.2 mmol/L Normal 3.5-5.1 [facility] Protein 8.1 g/dL Normal 6.4-8.1 [facility] Sodium 143 mmol/L Normal 132-144 [facility] Urea nitrogen 16 mg/dL Normal 6-20 [facility] Culture, Urineon 08-24-2017 Culture, Urine OR DERED BY: REUBEN ECHAVARRIA: Urine Clean Catch COLLECTED: 08/24/17 17:15ANTIBIOTICS AT [facility].: RECEIVED : 08/24/17 20:24Culture, Urine INTERIM 08/26/17 09:22 50,000 CFU/ml Escherichia coli Sensitivity to follow Normal [facility] Urinalysis, reflex to cultur fede 08-24-2017 Bilirubin Ql (U) Negative Normal Negative [facility] Urine Reflexed to Culture YES Normal [facility] Urine, clarity CLOUDY Abnormal Clear [facility] Urine, color Yellow Normal Straw/Waldo [facility] Urine, glucose presence Negative Normal Negative [facility] Urine, hemoglobin presence LARGE Abnormal Negative [facility] Urine, ketones presence Negative Normal Negative [facility] Urine, leukocyte esterase presence MODERATE Abnormal Negative [facility] Urine, nitrite presence Negative Normal Negative [facility] Urine, pH 6.5 [pH] Normal 5.0-9.0 [facility] Urine, protein presence TRACE Abnormal Negative [facility] Urine, specific gravity 1.022 Normal 1.005-1.03 [facility] Urine, urobilinogen 0.2 {Janusz'U}/dL Normal < 2.0 [facility] Urine Microscopicon 08-25-19 18 Urine, bacteria in sediment Few Normal [facility] Urine, erythrocytes /uL Abnormal 0-2 [facility] Urine, leukocytes 6-10 Abnormal 0-5 [facility] Vital Signs Date Time Vital Sign Value Performing Clinician Facility 02-19-2025 11:22-0400 Body temperature 97.6 [degF] No Primary Care Physician [facility] 02-19-2025 11:22-0400 Diastolic blood pressure 92 mm[Hg] No Primary Care Physician [facility] 02-19-2025 11:22-0400 Heart rate 85 /min No Primary Care Physician [facility] 02-19-2025 11:22-0400 Respiratory rate 15 /min No Primary Care Physician [facility] 02-19-2025 11:22-0400 SaO2% (BldA) [Mass fraction] 99 % No Primary Care Physician [facility] 02-19-2025 11:22-0400 Systolic blood pressure 135 mm[Hg] No Primary Care Physician [facility] 02-18-2025 12:16-0400 Body height 172.72 cm No Primary Care Physician [facility] 02-18-2025 12:16-0400 Body weight 62 kg No Primary Care Physician [facility] 02-17-2025 22:55-0400 Body mass index (BMI) [Ratio] 20.2 kg/m2 No Primary Care Physician [facility] 02-17-2025 21:59-0400 Body temperature 97.8 [degF] No Primary Care Physician [facility] 02-17-2025 21:59-0400 Diastolic blood pressure 94 mm[Hg] No Primary Care Physician [facility] 02-17-2025 21:59-0400 Heart rate 87 /min No Primary Care Physician [facility] 02-17-2025 21:59-0400 Respiratory rate 16 /min No Primary Care Physician [facility] 02-17-2025 21:59-0400 SaO2% (BldA) [Mass fraction] 99 % No Primary Care Physician [facility] 02-17-2025 21:59-0400 Systolic blood pressure 144 mm[Hg] No Primary Care Physician [facility] 02-17-2025 19:43-0400 Body height 172.72 cm No Primary Care Physician [facility] 02-17-2025 19:43-0400 Body mass index (BMI) [Ratio] 21.1 kg/m2 No Primary Care Physician [facility] 02-17-2025 19:43-0400 Body weight 63.1 kg No Primary Care Physician [facility] 04-23-2024 15:18-0500 Body temperature 98.71 [degF] Richard Pastrana MD Work Phone: [facility] 04-23-2024 15:18-0500 Diastolic blood pressure 87 mm[Hg] Richard Pastrana MD Work Phone: [facility] 04-23-2024 15:18-0500 Heart rate 72 /min Richard Pastrana MD Work Phone: [facility] 04-23-2024 15:18-0500 Respiratory rate 18 /min Richard Pastrana MD Work Phone: [facility] 04-23-2024 15:18-0500 SaO2% (BldA) [Mass fraction] 97 % Richard Pastrana MD Work Phone: [facility] 04-23-2024 15:18-0500 Systolic blood pressure 135 mm[Hg] Richard Pastrana MD Work Phone: [facility] 04-19-2024 18:36-0500 Body height 172.7 cm Richard Pastrana MD Work Phone: [facility] 04-19-2024 18:36-0500 Body mass index (BMI) [Ratio] 22.16 kg/m2 Richard Pastrana MD Work Phone: [facility] 04-19-2024 18:36-0500 Body weight 66.1 kg Richard Pastrana MD Work Phone: [facility] 04-19-2024 07:30-0500 Diastolic blood pressure 78 mm[Hg] David Robison DO Work Phone: [facility] 04-19-2024 07:30-0500 Heart rate 61 /min David Pazo DO Work Phone: [employer] 04-19-2024 07:30-0500 SaO2% (BldA) [Mass fraction] 94 % David Pazo DO Work Phone: [facility] [employer] [facility] 04-19-2024 07:30-0500 Systolic blood pressure 132 mm[Hg] David Pazo DO Work Phone: [employer] [facility] 04-19-2024 06:00-0500 Respiratory rate 15 /min David Pazo DO Work Phone: [facility] [employer] [facility] 04-19-2024 03:53-0500 Body height 177.8 cm David Pazo DO Work Phone: [facility] [employer] [facility] 04-19-2024 03:53-0500 Body mass index (BMI) [Ratio] 24.39 kg/m2 David Pazo DO Work Phone: [facility] [employer] [facility] 04-19-2024 03:53-0500 Body weight 77.11 kg David Pazo [employer] Work Phone: [facility] [employer] [facility] 04-19-2024 03:51-0500 Body temperature 98.1 [degF] David Pazo [employer] Work Phone: [facility] 12-04-2018 03:09-0400 BP Diastolic 92 mm[Hg] Caleb Starr [facility] 12-04-2018 03:09-0400 BP Systolic 134 mm[Hg] Caleb Starr [facility] 12-04-2018 03:09-0400 Pulse (Heart Rate) 95 /min Caleb Starr [facility] 12-04-2018 03:09-0400 Pulse Oximetry 100 % Caleb Starr [facility] 12-04-2018 03:09-0400 Respiratory Rate 14 /min Caleb Starr [facility] 12-04-2018 02:46-0400 Body Temperature 97.7 [degF] Caleb Starr [facility] Encounters Encounter Date Encounter Type Care Provider Facility Start: 02-19-2025 Non-patient / Non-visit Dr. Phoenix hopper MD -[facility] Work Phone: Start: 02-18-2025 Non-patient / Non-visit Dr. Phoenix hopper MD -[facility] Work Phone: Start: 02-17-2025 ambulatory No Primary Car e Physician [facility] Start: 02-17-2025 End: 02-19-2025 Evaluation and management of inpatient Dr. Sujey Stacy MD -[facility] Work Phone: Start: 07-17-2024 ambulatory Phoenix Ramsey Facili ty:[facility] Start: 07-17-2024 End: 07-18-2024 Evaluation and management of inpatient Phoenix Ramsey Facility:[facility] Start: 06-20-2024 ambulatory David Mcguire Fac ility:[facility] Start: 06-20-2024 End: 06-23-2024 Evaluation and management of inpatient No Primary Care Physician Facility:[facility] Start: 05-22-2024 ambulatory No Primary Car e Physician [facility] Start: 05-22-2024 End: 05-25-2024 Evaluation and management of inpatient No Primary Care Physician Facility:[facility] Start: 04-19-2024 End: 04-23-2024 Evaluation and management of inpatient Akhil Ann MD Work Phone: [facility] Start: 04-19-2024 End: 04-19-2024 Emergency department patient visit [facility] Start: 04-19-2024 End: 04-19-2024 Evaluation and management of inpatient [facility] Work Phone: [facility] Comment on above: Acute pancreatitis Start: 04-19-2024 ambulatory GENERIC [facility] Start: 01-27-2024 End: 01-27-2024 Emergency department patient visit MORALES JAIMES [facility] Start: 01-05-2024 End: 01-05-2024 Emergency department patient visit TOMASA HOANG [facility] Start: 09-06-2023 End: 09-06-2023 Emergency department patient visit SHEILA OLSON [facility] Start: 08-04-2020 End: 08-04-2020 Orders Only Theodora Pop Work Phone: [facility] Start: 12-09-2018 End: 12-09-2018 Patient encounter procedure Telly Lewis Work Phone: [facility] Comment on above: Seizure (Primary Dx) Start: 12-04-2018 End: 12-04-2018 Emergency department patient visit Caleb Starr Work Phone: [facility] Department Comment on above: Accidental drug over dose, initial encounter (Primary Dx) Start: 07-26-2018 End: 07-27-2018 Emergency department patient visit [facility] Facility:[facility] Start: 07-26-2018 End: 07-26-2018 Patient encounter procedure Generic [facility] Start: 07-13-2018 End: 07-13-2018 Emergency department patient visit [facility] Facility:[facility] Start: 04-02-2018 End: 04-02-2018 Emergency department patient visit Dante Billy Facility:[facility] Start: 12-25-2017 End: 12-25-2017 Emergency department patient visit Carmen Thompson Facility:[facility] Start: 12-12-2017 End: 12-13-2017 Emergency department patient visit YU CRUMP Facility:[id number] Start: 08-24-2017 End: 08-24-2017 Emergency department patient visit [facility] Procedures Date Procedure Procedure Detail Performing [...] HCV Quant by PCR testing - HCVPCR #[id number] Non Reactive: < 0.8 Equivocal: >/= 0.8 [...] Albumin serum plasma /whole blood David Robison [employer] Work Phone: Start: 04-19-2024 Assay of ethanol David Robison [employer] Work Phone: Start: 04-19-2024 Complete blood count [...] Activity Detail Author Start: 02-19-2025 Patient discharge [facility] Start: 02-18-2025 End: 02-19-2025 [facility] Start: 02-18-2025 Assessment using assessment scale [facility] Start: 02-18-2025 Patient referral to dietitian [facility] Start: 02-17-2025 Assessment of risk of venous thromboembolism [facility] Start: 02-17-2025 Inhalation therapy procedure [facility] Start: 02-17-2025 Introduction of urinary catheter [facility] Start: 02-17-2025 Notification of physician [facility] Start: 02-17-2025 Oxygen therapy [facility] Start: 02-17-2025 Provision of activity privileges [facility] Start: 02-17-2025 Referral to service [facility] Start: 02-17-2025 Vital signs measurements [facility] Start: 02-17-2025 [facility] Start: 02-17-2025 Following clinical pathway protocol [facility] Start: 02-17-2025 End: 02-17-2025 Hospital admission, emergency, from emergency room, medical nature [facility] Start: 02-17-2025 Verification routine [facility] Start: 02-17-2025 Admission procedure [facility] Start: 02-17-2025 Serologic test for syphilis [facility] Start: 02-17-2025 Serum inorganic phosphate measurement [facility] Start: 02-17-2025 [facility] Start: 02-16-2024 COVID-19 VACCINE ( season) COVID-19 VACCINE ( season) [facility] Start: 02-16-2024 Influenza vaccination INFLUENZA VACCINE (#1) [facility] Start: 02-16-2020 Influenza vaccination given Sequential Influenza Vaccine (#1) [facility] Start: 02-15-2019 Influenza vaccination INFLUENZA VACCINE (Season Ended) [facility] Start: 02-15-2019 Influenza vaccination given SEQUENTIAL INFLUENZA VACCINE (Season Ended) [facility] Start: 02-15-2018 Influenza vaccination given SEQUENTIAL INFLUENZA VACCINE (#1) [facility] Start: 2009 Hepatitis B vaccination HEP B VACCINE (1 of 3 - 19+ 3-dose series) [facility] Start: 2009 Third diphtheria, tetanus and acellular pertussis (DTaP) vaccination TDAP (ADULT) [facility] Start: 2008 Hepatitis C antibody, confirmatory test Hepatitis C Screening [facility] Start: 2008 Tetanus vaccination TETANUS [facility] Start: [address] [facility] Start: 2003 HIV screening HIV SCREENING DISCUSSION [facility] Start: 2002 Adolescent depression screening assessment Depression Screening (PHQ9) [facility] Start: 1993 History and physical examination, annual for health maintenance Wellness Visit [facility] Start: 1990 Hepatitis C screening HEPATITIS C VIRUS SCREENING [facility] Start: [address] [facility] Amphetamines [Presen ce] in Urine by Screen method >1000 ng/mL [facility] Benzodiazepine measu rement, urine [facility] Cocaine measurement, urine [facility] fentaNYL [Presence] in Urine by Screen method [facility] Magnesium measurement [facility] Methadone measuremen t, urine [facility] Phencyclidine [Prese nce] in Urine [facility] Urine cannabinoid measurement [facility] Urine opiate measurement [facility] Payers Date Payer Category Payer Self-pay 2024 Private Health Insurance [employer] [id number] 2024-Present [address] [place] [address] [id number] 2023 Medicaid (Managed Care) [employer] MGD MEDICAID [id number] 2018 Medicaid [employer]NA[employer] D MEDICAID [employer] MEDICAID xxxxxxxxxxx 2018-Present xxxxxxxxxxx [id number] 2018 Medicaid [id number] 2017 Medicaid [id number] 1990 Unknown [id number] [id number] .983 1990 Unknown [id number] 2.16.840.1.169344.3.579.2 .903 1990 Unknown [id number] 2.16.840.1.237297.3.579.2 .903 1990 Unknown [id number] 2.16.840.1.055152.3.579.2 .903 1990 Unknown [id number] 2.16.840.1.952257.3.579.2 .903 1990 Unknown [id number] 2.16.840.1.554844.3.579.2 .903 Medicaid [place]ICA[place] xxxxxxxxxxxx Effective for all dates xxxxxxxxxxxx [id number] Medicaid DENTAL MEDICAID [facility] [id number] Effective for all dates [id number] .[id number] Unknown [id number] Unknown [id number] 2.16.840.1.205474.3.579.2 .462 Unknown [id number] 2.16.840.1.489697.3.579.2 .462 Unknown [id number] 2.16.840.1.308287.3.579.2 .462 Unknown [id number] 2.16.840.1.809077.3.579.2 .462 Unknown [id number] 2.16.840.1.370602.3.579.2 .462 Unknown [id number] 2.16.840.1.495736.3.579.2 .462 Unknown [id number] 2.16.840.1.697780.3.579.2 .462 Unknown [id number] 2.16.840.1.526604.3.579.2 .462 Unknown [id number] 2.16.840.1.630582.3.579.2 .462 Unknown [id number] 2.16.840.1.608260.3.579.2 .462 Unknown [id number] 2.16.840.1.057071.3.579.2 .462 Unknown [id number] 2.16.840.1.347744.3.579.2 .462 Unknown [id number] 2.16.840.1.654582.3.579.2 .462 Unknown [id number] 2.16.840.1.864063.3.579.2 .462 Unknown [id number] 2.16840.1.143245.3.579.2 .462 Unknown [id number] 2.16840.1.626826.3.579.2 .462 Social History Date Type Detail Facility Start: 05-27-2018 End: 12-04-2018 Tobacco smoking status DCIS Current some day smoker [facility] Start: 06-17-2021 History of tobacco use Cigarette Smoker [facility] Start: 1990 Sex Assigned At Not on file [facility] Start: 12-04-2018 End: 04-19-2024 Tobacco use and exposure Never used [facility] Start: 12-04-2018 Alcohol intake Current non-drinker of alcohol (finding) [facility] Start: 04-19-2024 Tobacco smoking status NHIS Never smoked tobacco [facility] Start: 04-19-2024 Alcoholic beverage intake Current drinker of alcohol (finding) [facility] Start: 04-19-2024 History of Social function [facility] Start: 04-19-2024 Tobacco use panel [facility] Start: 04-19-2024 Alcohol Comment 2 beers nightly per patient [facility] Start: 04-19-2024 End: 02-17-2025 Tobacco smoking status DCIS Smokes tobacco daily [facility] Has the electric, [employer], Compare[employer], or water Ifbyphone threatened to shut off services in your home in past 12Mo No [facility] (I/We) worried wheth er (my/our) food would run out before (I/we) got money to buy more. Never true [facility] In the past 12 month s, has lack of transportation kept you from medical appointments or from getting medications? No [facility] Start: 04-19-2024 Alcohol Comment daily, last drink last night [facility] Start: 04-03-2018 Gender identity Identifies as male gender (finding) [facility] Start: 04-03-2018 Sexual orientation Heterosexual (finding) [facility] Start: 08-03-2020 Alcohol Alcohol [facility] Start: 08-03-2020 Drugs Drugs [facility] Start: 08-03-2020 Tobacco Use Tobacco Use [facility] Start: 1990 Sex Assigned At Male [facility] Goals Date Patient Goal Desired Activity /State Functional Status Date Assessment Result Facility 02-19-2025 Functional status Patient Activi ty Ambulates;Up ad elly [facility] Work Phone: 02-18-2025 Functional status Independent [facility] Work Phone: Mental Status Date Assessment Result Facility 02-19-2025 Cognitive function Appropriate;Cooperativ e [facility] Work Phone: 02-19-2025 Cognitive function Arousable To Voice/Nam e [facility] Work Phone: Clinical Notes 04-19-2024 to 02-19-2025 Note Date & Type Note Facility 02-19-2025 Hospital Discharg e instructions Additional Instructions Date of Discharge: 02/19/25 [facility] Work Phone: 02-19-2025 Discharge summary [facility] 02-19-2025 Note [facility] Medical Records Department [address] [place] [address] Discharge Summary 02/19/25 1346 MR#: [id number] Acct: [id number] Name: YU YOUNGER Marli Rep #: [id number] : 1990 34 From: Phoenix Irvin MD PCP: Care Physician,No Primary Status:ADM IN Location: [place] [address] Providers Date of Admission: 02/17/25 Date of [...] Advice Charges/Coding Visit Charges Inpatient E M: 78809 Disch Hosp >30min 02/19/25 1348 Cosigner Signature (if applicable): CC: Dr. Phoenix Irvin MD; No Primary Care Physician Signed [facility] 02-19-2025 Progress note Note Date/Time February 19, 2025 7:38am [facility] Medical Records Department [address] [place] [address] Progress Note - Hospitalist 02/19/25 0737 MR#: [id number] Acct: [id number] Name: YU YOUNGER Rep #:[id number] : 1990 34 From: Phoenix Irvin MD PCP: Care Physician,No Primary Status :ADM IN Location: [place] [address]-1 Reason for Visit Chief Complaint: Heroin/EtOH detoxification [...] documentation, 35minutes Charges/Coding Visit Charges Inpatient E&M: 93795 Subs Hosp L2 02/19/25 0738 <Electronically signed by Phoenix Irvin MD> Cosigner Signature (if applicable): CC: ~ Signed [facility] Work Phone: 1(235) 191-805209-05-2025 Progress note [facility] Medical Records Department [address] [place] [address] Progress Note - Hospitalist 02/19/25 0737 MR#: [id number] Acct: [id number] Name: YU YOUNGER Rep #:[id number] : 1990 34 From: Phoenix Irvin MD PCP: Care Physician,No Primary Status :ADM IN Location: [place] IU843-3 Reason for Visit Chief Complaint: Heroin/EtOH detoxification [...] documentation, 35minutes Charges/Coding Visit Charges Inpatient E&M: 59693 Subs Hosp L2 02/19/25 0738 Cosigner Signature (if applicable): CC: ~ Signed [facility]09-04-2025 Progress note Author Phoenix Irvin [facility] Note Date/Time February 18, 2025 9:43am [facility] Medical Records Department [address] [place] [address] Progress Note - Hospitalist 02/18/25654 MR#: [id number] Acct: [id number] Name: YU YOUNGER Rep #:[id number] : 1990 34 From: Phoenix Irvin MD PCP: Care Physician,No Primary Status :ADM IN Location: [place] [address]-1 Reason for Visit Chief Complaint: Heroin/EtOH detoxification [...] % (Auto) 67.8, Lymph % (Auto) 24.4, Callahan% (Auto) 7.4, Eos % (Auto) 0.0, Baso [...] 38 Minutes Charges/Coding Visit Charges Inpatient E&M: 04737 Subs Hosp L2 02/18/25 0943 <Electronically signed by Phoenix Irvin MD> Cosigner Signature (if applicable): CC: ~ Signed [facility] Work Phone: 1(543) 188-721809-04-2025 Progress note [facility] Medical Records Department [address] [place] [address] Progress Note - Hospitalist 02/18/25654 MR#: [id number] Acct: [id number] Name: YU YOUNGER Rep #:[id number] : 1990 34 From: Phoenix Irvin MD PCP: Care Physician,No Primary Status :ADM IN Location: [address] Reason for Visit Chief Complaint: Heroin/EtOH [...] % (Auto) 67.8, Lymph % (Auto) 24.4, Callahan% (Auto) 7.4, Eos % (Auto) 0.0, Baso [...] 38 Minutes Charges/Coding Visit Charges Inpatient E&M: 17381 Subs Hosp L2 02/18/25 0943 Cosigner Signature (if applicable): CC: ~ Signed [facility]09-04-2025 Discharge summary Author Dada Caballero [facility] Note Date/Time February 17, 2025 10:29pm [facility] Medical Records Department [address] [place] [address] Emergency Department Summary 02/17/25 MR#: [id number] Acct: [id number] Name: YU YOUNGER Rep #:[id number] : 1990 34 From: Dada Alejandre PCP: Care Physician,No Primary Status :ADM IN Location: [address] History of Present Illness Chief Complaint: Substance [facility] Medical History (Updated 02/17/25 @ 22:[address] Sujey Stacy MD) Tobacco use Alcohol abuse Alcoholic pancreatitis Substance abuse Hx of renal calculi Home Medications ?Medication ?Instructions ?Recorded ?Last Taken ?Type methadone 10 mg tablet 100 mg PO DAILY 05/22/2410/09 History Allergy/AdvReac Type Severity Reaction Status Date / Time levetiracetam (From [facility]) Allergy HIVES Verified 02/17/25 19:44 Family History [...] 100 99 Oxygen Delivery Method Room Air [facility] MDM Narrative Medical decision making narrative: [...] reviewed, Vital signs reviewed Constitutional: please see [facility] HENT: MMM Eyes: Pupils equal round [...] from others: none Consults: Hospitalist (Dr. Stacy) [facility] Narrative: Patient was initially hypertensive with blood [...] medical floor This note was generated with Abloomy dictation software. It may contain incorrectwords, spelling, [...] % (Auto) 67.8 Lymph % (Auto) 24.4 Callahan % (Auto) 7.4 Eos % (Auto) 0.0 [...] your Primary Care Provider. Call [facility] ([phone]) or report to the closest Emergency Room. Call 911 if necessary. 02/17/252228 <Electronically signed by Dada Caballero DO> Cosigner Signature (if applicable): CC: No Primary Care Physician ~ Signed [facility] Work Phone: 1(875) 932-137109-04-2025 History and physical note Author Sujey Stacy [facility] Note Date/Time February 17, 2025 10:19pm [facility] Medical Records Department [address] [place] [address] H&P Exam - Hospitalist 02/17/252123 MR#: [id number] Acct: [id number] Name: YU YOUNGER Rep #:[id number] : 1990 34 From: Sujey Stacy MD PCP: Care Physician,No Primary Status :ADM IN Location: [place] [address]-1 HPI - General General Date of Admission: [...] arrival), Tobacco use who presents to the [facility] ED on 02/17/2025 with ongoing substance abuse, [...] 1, phenobarbital 97.2 mg p.o. x 1. [facility] Medical History (Updated 02/17/25 @ 22:[address] Sujey Stacy MD) Tobacco use Alcohol abuse Alcoholic pancreatitis Substance abuse Hx of renal calculi Home Medications ?Medication ?Instructions ?Recorded ?Last Taken ?Type methadone 10 mg tablet 100 mg PO DAILY 05/22/2410/09 History Allergy/AdvReac Type Severity Reaction Status Date / Time levetiracetam (From [facility]) Allergy HIVES Verified 02/17/25 19:44 Family History [...] % (Auto) 67.8, Lymph % (Auto) 24.4, Callahan% (Auto) 7.4, Eos % (Auto) 0.0, Baso [...] arrival), Tobacco use who presents to the [facility] ED on 02/17/2025 with ongoing substance abuse, [...] encourage ambulation. Charges/Coding Visit Charges Inpatient E&M: 88817 Init Hosp L3 02/17/259 <Electronically signed by Sujey Stacy MD> Cosigner Signature (if applicable): CC: Dr. Sujey Stacy MD; No Primary Care Physician~ Signed [facility] Work Phone: 1(150) 983-698409-03-2025 Evaluation note* Diagnosis Onset Date Resolution Status Admit Date Admitted to alcohol detoxification center acute February 17, 2025 9:24pm [facility] Work Phone: 1(893) 924-584809-03-2025 Discharge summary [facility] Medical Records Department [address] [place] [address] Emergency Department Summary 02/17/25 MR#: [id number] Acct: [id number] Name: YU YOUNGER Rep #:[id number] : 1990 34 From: Dada Alejandre PCP: Care Physician,No Primary Status :ADM IN Location: [place] [address] HPI History of Present Illness Chief Complaint: Substance Abuse [facility] Medical History (Updated 02/17/25 @ 22:[address] Sujey Stacy MD) Tobacco use Alcohol abuse Alcoholic pancreatitis Substance abuse Hx of renal calculi Home Medications ?Medication ?Instructions ?Recorded ?Last Taken ?Type methadone 10 mg tablet 100 mg PO DAILY 05/22/2410/09 History Allergy/AdvReac Type Severity Reaction Status Date / Time levetiracetam (From [facility]) Allergy HIVES Verified 02/17/25 19:44 Family History [...] medical floor This note was generated with Abloomy dictation software. It may contain incorrectwords, spelling, [...] % (Auto) 67.8 Lymph % (Auto) 24.4 Callahan % (Auto) 7.4 Eos % (Auto) 0.0 [...] your Primary Care Provider. Call [facility] ([phone]) or report tothe closest Emergency Room. Call 911 if necessary. 02/17/252228 Cosigner Signature (if applicable): CC: No Primary Care Physician ~ Signed [facility]09-03-2025 History and physical note [facility] Medical Records Department [address] [place] [address] H&P Exam - Hospitalist 02/17/252123 MR#: [id number] Acct: [id number] Name: YU YOUNGER Rep #:[id number] : 1990 34 From: Sujey Stacy MD PCP: Care Physician,No Primary Status :ADM IN Location: [facility] [place]-2 HPI - General General Date of Admission: [...] arrival), Tobacco use who presents to the [facility] ED on 02/17/2025 with ongoing substance abuse, [...] 1, phenobarbital 97.2 mg p.o. x 1. [facility] Medical History (Updated 02/17/25 @ 22:[address] Sujey Stacy MD) Tobacco use Alcohol abuse Alcoholic pancreatitis Substance abuse Hx of renal calculi Home Medications ?Medication ?Instructions ?Recorded ?Last Taken ?Type methadone 10 mg tablet 100 mg PO DAILY 05/22/2410/09 History Allergy/AdvReac Type Severity Reaction Status Date / Time levetiracetam (From [facility]) Allergy HIVES Verified 02/17/25 19:44 Family History [...] % (Auto) 67.8, Lymph % (Auto) 24.4, Callahan% (Auto) 7.4, Eos % (Auto) 0.0, Baso [...] arrival), Tobacco use who presents to the [facility] ED on 02/17/2025 with ongoing substance abuse, [...] encourage ambulation. Charges/Coding Visit Charges Inpatient E&M: 51462 Init Hosp L3 02/17/25 2219 Cosigner Signature (if applicable): CC: Dr. Sujey Stacy MD; No Primary Care Physician~ Signed [facility]02-01-2025 [facility] Medical Records Department [address] [place] [address] Discharge Summary 07/18/24 1315 MR#: [id number] Acct: [id number] Name: YU YOUNGER Rep #: [id number] : 1990 34 From: Yu Ball DO PCP: Care Physician,No Primary Status:ADM IN Location: [place] DS693-0 Providers Date of Admission: 07/17/24 Date of [...] and examined in the emergency room at [facility], he requested services for opiate substance use disorder, patient also has a history of polysubstance abuse. Patient appears stable on admission, he was admitted to [place] [address] when orders were entered using the opiate [...] Orders/Prescriptions Prescriptions: No Acti (more content not included)...[facility]01-07-2025 Note [facility] Medical Records Department [address] [place] [address] Discharge Summary 06/23/24 1046 MR#: [id number] Acct: [id number] Name: YU YOUNGER Rep #: [id number] : 1990 33 From: Majo Terrazas MD PCP: Care Physician,No Primary Status:DIS IN Location[place] [facility] [place]048-9 Providers Date of Admission: 06/20/24 Date of [...] 06/21/24 11:31 GERALDINE (Rec: 06/21/24 11:32 GERALDINE [id number]) Nutrition Malnutrition Evidence of Malnutrition Exists Yes [...] in before D/C Or (more content not included)...[facility]11-07-2024 Plan of care note* Plan of Care [...] Goal: Absence of pressure injury Outcome: Completed [id number] Miscellaneous Notes* Plan of Care - Che [...] functioning Outcome: Partially Met documented in this [id number] Progress note* Quick Note - Che Manriquez RN - 04/23/2024 3:37 PM EST Discharge instructions reviewed with patient and spouse. States understanding. Aware of all home meds stopped. Medications reviewed and brought from discharge pharmacy. [id number] [facility] DISCHARGE SUMMARY -- [facility] Yu Younger Admitted: 04/19/2024 Discharge Date: 04/23/24 PCP Handoff Recommended Outpatient Testing Follow-up with primary care provider. Follow-up with methadone clinic for regular methadone dosing. Results Pending At Discharge None Clinical Summary Assessment and Plan Yu Younger is a 33 year old gentleman with a past medical history of seizures, ETOH abuse, opiate abuse, tobacco use disorder, who presented to [facility] ED 04/19/2024 with complaints of abdominal pain. Initially presented to [facility] ED on 04/19 where imaging was consistent [...] PM AUTHENTICATED BY RICHARD PASTRANA, ON 04/23/2024 12:25:29[facility]11-07-2024 Hospital course Narrative* Richard Pastrana MD - 04/23/2024 12:20 PM EST [facility] DISCHARGE SUMMARY -- [facility] Yu Younger Admitted: 04/19/2024 Discharge Date: 04/23/24 PCP Handoff Recommended Outpatient Testing Follow-up with primary care provider. Follow-up with methadone clinic for regular methadone dosing. Results Pending At Discharge None Clinical Summary Assessment and Plan Yu Younger is a 33 year old gentleman with a past medical history of seizures, ETOH abuse, opiate abuse, tobacco use disorder, who presented to [facility] ED 04/19/2024 with complaints of abdominal pain. Initially presented to [facility] ED on 04/19 where imaging was consistent [...] on 04/23/24, 12:20 PM documented in this [id number] Plan of care note* Plan of Care - Marielle Anne RN - 04/22/2024 7:25 PM EST POC reviewed & continues. [id number] NoteHMS PROGRESS NOTE Assessment and Plan Yu Younger is a 33 year old gentleman with a past medical history of seizures, ETOH abuse, opiate abuse, tobacco use disorder, who presented to [facility] ED 04/19/2024 with complaints of abdominal pain. Initially presented to [facility] ED on 04/19 where imaging was consistent [...] ETOH abuse Alcohol withdrawal, resolved Phenobarbital taper [facility] protocol IV thiamine Will plan for [...] Transcriptions AUTHENTICATED BY RICHARD PASTRANA, ON 04/23/2024 08:25:30[facility]11-06-2024 History of Present illness Narrative* Richard Pastrana MD - 04/22/2024 2:36 PM EST [facility] PROGRESS NOTE Assessment and Plan Yu Younger is a 33 year old gentleman with a past medical history of seizures, ETOH abuse, opiate abuse, tobacco use disorder, who presented to [facility] ED 04/19/2024 with complaints of abdominal pain. Initially presented to [facility] ED on 04/19 where imaging was consistent [...] ETOH abuse Alcohol withdrawal, resolved Phenobarbital taper [facility] protocol IV thiamine Will plan for [...] Pastrana MD - 04/21/2024 2:35 PM EST [facility] PROGRESS NOTE Assessment and Plan Yu Younger is a 33 year old gentleman with a past medical history of seizures, ETOH abuse, opiate abuse, tobacco use disorder, who presented to [facility] ED 04/19/2024 with complaints of abdominal pain. Initially presented to [facility] ED on 04/19 where imaging was consistent [...] yesterday at [facility] ETOH abuse Phenobarbital taper [facility] protocol IV thiamine Will plan for [...] Garsia PA-C - 04/20/2024 10:27 AM EST [facility] PROGRESS NOTE Assessment and Plan Yu Younger is a 33 year old gentleman with a past medical history of seizures, ETOH abuse, opiate abuse, tobacco use disorder, who presented to [facility] ED 04/19/2024 with complaints of abdominal pain. Initially presented to [facility] ED on 04/19 where imaging was consistent [...] yesterday at [facility] ETOH abuse Phenobarbital taper [facility] protocol IV thiamine Will plan for [...] Cardiology, Medications, and Transcriptions documented in this [id number] NoteHMS PROGRESS NOTE Assessment and Plan Yu Younger is a 33 year old gentleman with a past medical history of seizures, ETOH abuse, opiate abuse, tobacco use disorder, who presented to [facility] ED 04/19/2024 with complaints of abdominal pain. Initially presented to [facility] ED on 04/19 where imaging was consistent [...] Transcriptions AUTHENTICATED BY RICHARD PASTRANA, ON 04/21/2024 14:38:02[facility]11-05-2024 Note 1. There are findings of moderate to severe acute pancreatitis described above noted to be substantially progressive from 04/19/2024. No evidence for pancreatic necrosis or vascular thrombosis. 2. Small effusions and adjacent lower lobe atelectasis is new. 3. There is mild ascites. 4. There is moderate diffuse fatty infiltration of the liver. Workstation ID: [id number] Plan of care note* Plan of Care [...] level of psychosocial functioning Outcome: Partially Met [id number] NoteHMS PROGRESS NOTE Assessment and Plan Yu Younger is a 33 year old gentleman with a past medical history of seizures, ETOH abuse, opiate abuse, tobacco use disorder, who presented to [facility] ED 04/19/2024 with complaints of abdominal pain. Initially presented to [facility] ED on 04/19 where imaging was consistent [...] yesterday at [facility] ETOH abuse Phenobarbital taper [facility] protocol IV thiamine Will plan for [...] Transcriptions AUTHENTICATED BY TESHA GARSIA ON 04/20/2024 10:46:24[facility] 04-19-2024 Emergency department Note* Lily Goss RN - 04/19/2024 3:59 PM EST Hourly rounding assessment completed on the patient. [] Patient updated on plan of care [x] All comfort needs addressed [x] Patient updated on duration of visit All questions answered, patient denies further needs. Call light within reach. [id number] Emergency department Note* Lily Goss RN - 04/19/2024 3:59 PM EST Hourly rounding assessment completed on the patient. [] Patient updated on plan of care [x] All comfort needs addressed [x] Patient updated on duration of visit All questions answered, patient denies further needs. Call light within reach. * Akhil Ann MD - 04/19/2024 2:50 PM ESTAssociated Order(s): Critical Care [facility] EMERGENCY DEPARTMENT ATTENDING NOTE: NAME: Yu Younger CSN: [id number] 33 y.o. PCP: Justin Pearce MD History: [...] Akhil Ann MD, MD ED Attending Physician [facility] EMERGENCY DEPARTMENT Akhil Ann MD 04/19/24 145 * Carla Stahl RN - 04/19/2024 2:21 PM EST Pt into ED from [facility] for ABD pain. Pt states they told him he had swelling to his pancreas. Pt presents with tremors and diaphoretic. VS stable. * Lesley Ayala RN - 04/19/2024 2:20 PM EST Bed: TR1 Expected date: Expected time: Means of arrival: Comments: R1 documented in this [id number] History and physical note* Rosalba Park MD - 04/19/2024 3:11 PM EST [facility] HISTORY AND PHYSICAL -- [facility] Patient Name: Yu Younger : 1990 MR #: [id number] Admit Date: 04/19/2024 Physicians: Justin Pearce MD (Family); No ref. provider found (Referring) Yu Younger is a 33 y.o. male patient of Justin Pearce MD with history of methadone overdose, vaping, CKD, seizure, presented to [facility] from [facility] on 04/19/2024 with acute pancreatitis. [...] normal coloration Psych: normal mood and affect [id number] NoteHMS HISTORY AND PHYSICAL -- [facility] Patient Name: Yu Younger : 1990 MR #: [id number] Admit Date: 04/19/2024 Physicians: Justin Pearce MD (Family); No ref. provider found (Referring) Yu Younger is a 33 y.o. male patient of Justin Pearce MD with history of methadone overdose, vaping, CKD, seizure, presented to [facility] from [facility] on 04/19/2024 with acute pancreatitis. Acute pancreatitis secondary to alcohol Fatty liver Transaminitis Alcohol use disorder Elevated alkaline phosphate Last alcohol use was 04/18 evening Alk phos 239, AST 371, ALT 153 AST 2 ALT>2 Lipase 4914 Alcohol positive [facility] protocol Phenobarbital taper IV fluids N.p.o. [...] affect AUTHENTICATED BY ROSALBA PARK, ON 04/19/2024 17:20:28[facility] 04-19-2024 History and physical note* Rosalba Park MD - 04/19/2024 3:11 PM EST [facility] HISTORY AND PHYSICAL -- [facility] Patient Name: Yu Younger : 1990 MR #: [id number] Admit Date: 04/19/2024 Physicians: Justin Pearce MD (Family); No ref. provider found (Referring) Yu Younger is a 33 y.o. male patient of Justin Pearce MD with history of methadone overdose, vaping, CKD, seizure, presented to [facility] from [facility] on 04/19/2024 with acute pancreatitis. Acute pancreatitis secondary to alcohol Fatty liver Transaminitis Alcohol use disorder Elevated alkaline phosphate Last alcohol use was 04/18 evening Alk phos 239, AST 371, ALT 153 AST 2 ALT>2 Lipase 4914 Alcohol positive [facility] protocol Phenobarbital taper IV fluids N.p.o. [...] normal mood and affect documented in this [id number] Physician Emergency department Note* Akhil Ann MD - 04/19/2024 2:50 PM ESTAssociated Order(s): Critical Care [facility] EMERGENCY DEPARTMENT ATTENDING NOTE: NAME: Yu Younger CSN: [id number] 33 y.o. PCP: Justin Pearce MD History: [...] Akhil Ann MD, MD ED Attending Physician [facility] EMERGENCY DEPARTMENT Akhil Ann MD 04/19/24 1459 [id number] Emergency department Triage note* Carla Stahl RN - 04/19/2024 2:21 PM EST Pt into ED from [facility] for ABD pain. Pt states they told him he had swelling to his pancreas. Pt presents with tremors and diaphoretic. VS stable. [id number] Emergency department Note* Lesley Ayala RN - 04/19/2024 2:20 PM EST Bed: TR1 Expected date: Expected time: Means of arrival: Comments: R1 [id number] Emergency department Note* Dariusz Ramirez DO - 04/19/2024 8:25 AM EST Emergency Department Report [facility] Service Date:.04/19/24 PCP: No [...] evaluated this patient, inpatient was transferred to [facility] for admission. Patient did not want to take an ambulance, patient wanted family to drive him to [place]. Dr. Robison stated that patient could not drive to [facility] because he was given Dilaudid in the ER for pain. Dr. Robison has sign patient is out against medical advice, patient waspicked up by another individual and driven to [facility]. Patient did have a bed number there. Security Jaeger saw patient get into another car with another individual who was driving, not this patient and patient was driven to [facility]. I do not see or interact with [...] - 04/19/2024 8:23 AM EST Dacia at [facility] made aware that pt signed out AMA * Kylah Celis RN - 04/19/2024 8:16 AM EST Report called to [facility], RN at [facility] made aware that pt signed out AMA at our facility, denies questions * Tracy Ribeiro - 04/19/2024 8:14 AM EST Sujey miramontes [facility] aware that patient signed out AMA and we no longer need transport * Kylah Celis RN - 04/19/2024 8:10 AM EST Pt ambulatory out of ED, pt provided with room number at [facility] * Tracy Ribeiro - 04/19/2024 8:06 [...] Tracy Ribeiro - 04/19/2024 7:46 AM EST [facility] calls and patient now has a room. Patients room number is 4032 and report can be called to [phone]. * Tracy Ribeiro - 04/19/2024 7:16 AM EST [facility] calls and patient has been accepted to [place]. There are no rooms available at this time. Patient was accpeted by Dr.Pratik Smith. * Kylah Celis RN - 04/19/2024 7:[address] Robison at bedside to update pt on plan of care * Maribel Good RN - 04/19/2024 6:49 AM EST [facility] called and transferred to at this time. * Maribel Good RN - 04/19/2024 6:40 AM EST Patient puts call light on and communicates to this nurse he cannot be admitted here as it is too far for his family but is willing to be transferred to [facility]. * David Robison DO - 04/19/2024 3:57 AM EST Emergency Department Report [facility] Service Date:.04/19/24 PCP: No [...] Patient initially agreed to beadmitted here at [facility] but after talking to his family he wants to be transferred to [place]. I did talk to [facility] transfer stuart for [place] and awaiting for bed at this time. [...] David Robison DO 04/19/24 0644 * Maribel oGod RN - 04/19/2024 3:49 AM EST Lab at bedside. documented in [facility] Physician Emergency department Note* Dariusz Ramirez DO - 04/19/2024 8:25 AM EST Emergency Department Report [facility] Service Date:.04/19/24 PCP: No [...] evaluated this patient, inpatient was transferred to [facility] for admission. Patient did not want to take an ambulance, patient wanted family to drive him to [place]. Dr. Robison stated that patient could not drive to [facility] because he was given Dilaudid in the ER for pain. Dr. Robison has sign patient is out against medical advice, patient waspicked up by another individual and driven to [facility]. Patient did have a bed number there. Security Jaeger saw patient get into another car with another individual who was driving, not this patient and patient was driven to [facility]. I do not see or interact with this patient at all. Patient was signed out against medical advice by Dr. Robison. Please refer to Dr Robison documentation. Patient left against medical advice. It was determined by Dr. Saleh the patient has a functionalmaking decision capacity to leave his signed out against medical advice. Dariusz Ramirez DO 04/19/24 [address] [facility] [employer] Work Phone: [phone] 483-276611-03-2024 Emergency department Note* Kylah Celis RN - 04/19/2024 8:23 AM EST Dacia at [facility] made aware that pt signed out AMA [employer]11-03-2024 Emergency department Note* Kylah Celis RN - 04/19/2024 8:16 AM EST Report called to [place] Osborn at [facility] made aware that pt signed out AMA at our facility, denies questions [employer]11-03-2024 Emergency department Note* Tracy Ribeiro - 04/19/2024 8:14 AM EST Sujey Rosen aware that patient signed out AMA and we no longer need transport [facility]11-03-2024 Emergency department Note* Kylah Celis RN - 04/19/2024 8:10 AM EST Pt ambulatory out of ED, pt provided with room number at [facility]11-03-2024 Emergency department Note* Tracy Ribeiro - 04/19/2024 8:06 AM EST Patient signs appropriate AMA papers at this time. Patient is aware he is unable to drive due to just being given narcotics. Patient verbalized understanding. [facility]11-03-[facility] Emergency department Note* Kylah Celis RN [...] before being admitted. Dr Robison made aware. [facility]11-03-[facility] Emergency department Note* Tracy Ribeiro - 04/19/2024 7:56 AM EST [facility] will transfer the patient, eta 0845 [facility]11-03-2024 Emergency department Note* Tracy Ribeiro - 04/19/2024 7:46 AM EST [facility] calls and patient now has a room. Patients room number is 4032 and report can be called to [phone]. [facility] Emergency department Note* Tracy Ribeiro - 04/19/2024 7:16 AM EST [facility] calls and patient has been accepted to [place]. There are no rooms available at this time. Patient was accpeted by Dr.Pratik Smith. [facility] Emergency department Note* Kylah Celis RN - 04/19/2024 7:[address] Robison at bedside to update pt on plan of care [facility]-03-[facility] Emergency department Note* Maribel Good RN - 04/19/2024 6:49 AM EST [facility] called and transferred to at this time. [facility] Emergency [facility] Note* Maribel Good RN - 04/19/2024 6:40 AM EST Patient puts call light on and communicates to this nurse he cannot be admitted here as it is too far for his family but is willing to be transferred to [facility]. [facility] Physician Emergency department Note* David Robison DO - 04/19/2024 3:57 AM EST Emergency Department Report [facility] Service Date:.04/19/24 PCP: No [...] initially agreed to beadmitted here at a [facility] but after talking to his family he wants to be transferred to [place]. I did talk to [facility] transfer center for [place] and awaiting for bed at this time. [...] CORRECTED . David Robison DO 04/19/24 0644 [facility] Emergency department Note* Maribel Good RN - 04/19/2024 3:49 AM EST Lab at bedside. [facility] Author Phoenix Irvin [facility] Note Date/Time February 19, 2025 1:48pm [facility] Medical Records Department [address] [place] [address] Discharge Summary 02/19/25 1346 MR#: [id number] Acct: [id number] Name: BESSY,YU Calles Rep #:[id number] : 1990 34 From: Phoenix Irvin MD PCP: Care Physician,No Primary Status :ADM IN [place]: [facility] [id number] Providers Date of Admission: 02/17/25 Date of [...] Medical Advice Charges/Coding Visit Charges Inpatient E&M: 17026 Disch Hosp >30min 02/19/25 1348 <Electronically signed by Phoenix Irvin MD> Cosigner Signature (if applicable): CC: Dr. Phoenix Irvin MD; No Primary Care Physician~ Signed [facility] Work Phone: Evaluation note* Diagnosis Acute pancreatitis- Primary Alcohol-induced acute pancreatitis without infection or necrosis [facility] this [facility] Diagnosis Alcohol-induced acute pancreatitis, unspecified complication status- Primary Alcohol-induced acute pancreatitis, unspecified complication status Alcohol withdrawal syndrome without complication (HCC) [facility] Diagnosis Onset Date Resolution Status Admit Date Admitted to alcohol detoxification center acute February 17, 2025 9:24pm [facility] Work Phone: History and physical note Author Sujey Stacy [facility] Note Date/Time February 17, 2025 10:19pm [facility] Medical Records Department [address] [place] [address] H&P Exam - Hospitalist 02/17/252123 MR#: [id number] Acct: [id number] Name: YU YOUNGER Rep #:[id number] : 1990 34 From: Sujey Stacy MD PCP: Care Physician,No Primary Status :ADM IN Location: [facility] [id number] HPI - General General Date of Admission: [...] arrival), Tobacco use who presents to the [facility] ED on 02/17/2025 with ongoing substance abuse, [...] 1, phenobarbital 97.2 mg p.o. x 1. [facility] Medical History (Updated 02/17/25 @ 22:[address] Sujey Stacy MD) Tobacco use Alcohol abuse Alcoholic pancreatitis Substance abuse Hx of renal calculi Home Medications ?Medication ?Instructions ?Recorded ?Last Taken ?Type methadone 10 mg tablet 100 mg PO DAILY 05/22/2410/09 History Allergy/AdvReac Type Severity Reaction Status Date / Time levetiracetam (From [facility]) Allergy HIVES Verified 02/17/25 19:44 Family History [...] % (Auto) 67.8, Lymph % (Auto) 24.4, Callahan% (Auto) 7.4, Eos % (Auto) 0.0, Baso [...] arrival), Tobacco use who presents to the [facility] ED on 02/17/2025 with ongoing substance abuse, [...] encourage ambulation. Charges/Coding Visit Charges Inpatient E&M: 22041 Init Hosp L3 02/17/259 <Electronically signed by Sujey Stacy MD> Cosigner Signature (if applicable): CC: Dr. Sujey Stacy MD; No Primary Care Physician~ Signed [facility] Work Phone: Reason for referral (narrative)* Unlisted Procedure Code (Routine) - New Request Specialty Diagnoses / Procedures Referred By Contac t Referred To Contact Procedures INPATIENT ADMISSION NOTIFICATION Juma Rodriguez MD [address] [facility] [place] [address] Referral ID Status Reason Start Date Expiration Date V isits Requested Visits Authorized [id number] New Request 04/19/2024 05/14/2025 1 1 [facility] for referral (narrative)No reason for referral information availableWMadison Health Work Phone: Summary Purpose Family History No Family History Records Found Relationship Condition Age at Onset Recorded Date/T tomás Not Specified Malignant neoplasm Unknown mother Hypertension Unknown Polysubstance abuse Unknown father Hypertension Unknown Alcohol abuse Unknown Advance Directives No Advanced Directives Records FoundDocuments on File Type Date Recorded 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 No February 17, 2025 9:11pm Advance Directive Response Recorded Date/ Time Do you have a Healthcare Power of Oil Separator? No February 17, 2025 10:55pm Reason for Referral Status Reason Specialty Diagnoses / Procedures Referred By Contact Referred To Contact New Request Neurology Diagnoses Seizure Telly Lewis MD [address] [place] [address] Bhavesh Collier MD [address] [place] [address] Assessments Diagnosis Seizure- Primary Other convulsions Diagnosis Accidental drug overdose, initial encounter- Primary Discharge Instructions * Attachments The following attachments cannot be sent through Care Everywhere. * Alcohol - Drug - or Poison Ingestion (Palestinian) documented in this encounter Chief Complaint and [...] and content) DATE CREATED AUTHOR 12/06/2017 [facility] DATE CREATED AUTHOR AUTHOR'S ORGANIZ ATION 12/15/2017 [facility] DATE CREATED AUTHOR AUTHOR'S ORGANIZ ATION 01/04/2018 [facility] DATE CREATED AUTHOR AUTHOR'S ORGANIZ ATION 08/06/2018 [facility] DATE CREATED AUTHOR AUTHOR'S ORGANIZ ATION 08/09/2020 [facility] DATE CREATED AUTHOR AUTHOR'S ORGANIZ ATION 12/29/2020 [facility] DATE CREATED AUTHOR AUTHOR'S ORGANIZ ATION 04/24/2024 [facility] DATE CREATED AUTHOR AUTHOR'S ORGANIZ ATION 04/24/2024 [facility] DATE CREATED AUTHOR AUTHOR'S ORGANIZ ATION 02/27/2025 [facility] Reason for Visit (unrecogniz ed section and content) Reason Comments Drug Overdose Reason Comments Nausea Abdominal Pain Patient reports left lower quadrant abdominal pain x 1.5hr that woke him from sleep. Pt states he took Pepto Bismol prior to arrival with no relief. Denies any urinary symptoms. Specialty Diagnoses / Procedures Referred By Contac t Referred To Contact Diagnoses Acute pancreatitis [facility] Referral ID Status Reason Start Date Expiration Date Visits Re quested Visits Authorized [id number] Reason Comments Abdominal Pain Specialty Diagnoses / Procedures Referred By Contac t Referred To Contact Diagnoses Alcohol withdrawal syndrome without complication (HCC) Alcohol-induced acute pancreatitis, unspecified complication status Referral ID Status Reason Start Date Expiration Date Visits Re quested Visits Authorized [id number] 1 1 Zach Swain RN - 12/04/2018 [...] Order(s): ECG 12- Lead ED PROVIDER NOTE [facility] EMERGENCY [facility]PART[facility] NAME: Yu Younger AGE: 28 y.o. : 1990 VISIT DATE: 12/04/2018 CSN: [id number] PCP: Telly Lewis MD Chief Complaint Patient [...] file Gets together: Not on file Attends jainism service: Not on file Active member of [...] PLACED TUBE OR TUBE less than 14 Libyan. To administer dissolved tablet(s) mix with 4 [...] PLACED TUBE OR TUBE less than 14 Libyan. To administer dissolved tablet(s) mix with 4 [...] Che Manriquez RN)1500 (Paused - Provider: Che Manriqeuz RN)1502 (Restarted - Provider: Che Manriquez RN)1502 [...] Provider: Sonya Otto, TECHNOLOGIST - Comment: LOT: [id number]:2027- 05) iopamidol (ISOVUE-370) 76 % oral solution [...] mL, Intravenous, Once in imaging, contrast, Per dental manager (Radiology) for line patency check prior to contrast administration, Starting on Sat04/21/24 at 1058, For 1 dose 1318 (Given - Provider: Sonya Otto, TECHNOLOGIST) sodium chloride (PF) (NS) 0.9 % contrast line flush 80 mL (COMPLETED)(Linked Group 5) 80 mL, Intravenous, Once in imaging, contrast, Per dental manager (Radiology), Starting on Sat04/21/24 at 1058, For 1 dose, 30 mL BEFORE contrast administration 50 mL AFTER contrast administration 1318 (Given - Provider: Sonya Otto, TECHNOLOGIST) Linked Groups Order Group 1: PHENobarbital injection 162.5 mg (COMPLETED) 162.5 mg (rounded from 164.16 mg = 2.4 mg/kg 68.4 kg [place] weight), Intramuscular, Once, On Sat04/19/24 at 1505, [...] 123.12 mg = 1.8 mg/kg 68.4 kg [place] weight), Intramuscular, Every 3 hours, First dose [...] mL, Intravenous, Once in imaging, contrast, Per dental manager (Radiology) for line patency check prior to contrast administration, Starting on Sat04/21/24 at 1058, For 1 dose And sodium chloride (PF) (NS) 0.9 % contrast line flush 80 mL (COMPLETED)Jump to med 80 mL, Intravenous, Once in imaging, contrast, Per dental manager (Radiology), Starting on Sat04/21/24 at 1058, For 1 dose, 30 mL BEFORE contrast administration 50 mL AFTER contrast administration Care Teams (unrecognized sec tion and content) 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 [employer] provides no warranty or guarantee of the accuracy or completeness of information in this document.
[2025-05-29] MEDS: Lactated Ringers 1,000 ML 125 ML IV (15:50)
[2025-05-29] MEDS: hydrOXYzine PAM 25 MG Capsule 50 MG PO (15:50)
[2025-05-29] MEDS: Nicotine (PBKC) 21 MG Patch TD (15:54)
--- NOTE | 2025-05-29 20:00 | NURSING ---
This nurse attempted to do the COWS score on patient in order to see if the subutex needed to start. Pt stated he did not want to take subutex.
[2025-05-29 22:47] LABS: Prothrombin Time (Protime)PT. 15.5 SECONDS (11.7-14.9)
[2025-05-30 04:41] VITALS: BP 159/109; PULSE 89; RESP 16; TEMP 36.6; O2SAT 99
[2025-05-30 06:51] LABS: AST(SGOT) 307 U/L (<=37); Alanine Aminotransfer ALT/SGPT 81 U/L (<=46); Albumin, Serum 4.0 g/dL (3.5-5.0); Alkaline Phosphatase 164 U/L (40-129); Anion Gap 13 (5-15); BUN 11 mg/dL (4-19); BUN/Creat Ratio 14.7 RATIO (10-20); Calcium,Total 9.2 mg/dL (7.6-11.0); Carbon Dioxide 24.8 mmol/L (21.0-32.0); Chloride 99 mmol/L (98-108); Estimated Creatinine Clearance 122.63 ml/min (50-250); Globulin 3.2 g/dL (2.2-4.2); Glucose 78 mg/dL (70-99); Potassium 3.8 mmol/L (3.3-5.1)
[2025-05-30 08:00] VITALS: BP 137/81; PULSE 72; RESP 16; TEMP 36.4; O2SAT 98
[2025-05-30] MEDS: Thiamine Hydrochloride 100 MG Tablet PO (09:03)
[2025-05-30] MEDS: Nicotine (PBKC) 21 MG Patch TD (09:03)
--- NOTE | 2025-05-30 10:46 | PCM.PN.HOSP ---
Reason for Visit Chief Complaint: Alcohol and opioid withdrawal symptoms Objective Data Objective Data Vital Signs: Vital Signs Temp Pulse Resp BP Pulse Ox O2 Del Method 97.6 F L 72 16 137/81 H 98 Room Air 05/30/25 08:00 05/30/25 08:00 05/30/25 08:00 05/30/25 08:00 05/30/25 08:00 05/30/25 09:20 Oxygen Delivery Method Room Air Weight: 139 lb 9 oz Body Mass Index (BMI) 21.2 Intake & Output: Intake and Output for Last 24 Hours 05/28/25 05/29/25 05/30/25 23:59 23:59 23:59 Intake Total 2099 / 2099 Balance 2099 Lab / Micro Data 05/29/25 12:00 05/30/25 06:18 Labs: Laboratory Results - last 24 hr 05/29/25 11:30: Total Creatine Kinase 106 05/29/25 12:00: WBC 5.7, RBC 4.58 L, Hgb 13.8, Hct 40.7, MCV 88.9, MCH 30.1, MCHC 33.9, RDW Std Deviation 39.2, RDW Coeff of Ida 12.1, Plt Count 133 L, MPV 9.6, Immature Gran % (Auto) 0.200, Neut % (Auto) 64.5, Lymph % (Auto) 25.5, Bill[place] % (Auto) 9.2, Eos % (Auto) 0.3, Baso % (Auto) 0.3, Absolute Neuts (auto) 3.7, Absolute Lymphs (auto) 1.46, Nucleated RBC % 0, Platelet Estimate SLT DEC, Sodium 135, Potassium 4.0, Chloride 95 L, Carbon Dioxide 23.7, Anion Gap 17 H, BUN 8, Creatinine 0.81, Estim Creat Clear Calc 113.23, Est GFR (MDRD) Non-Af 119, BUN/Creatinine Ratio 9.6 L, Glucose 97, Calcium 9.0, Magnesium 1.8, Total Bilirubin 1.27, AST 340 H, ALT 87 H, Alkaline Phosphatase 163 H, Total Protein 7.9, Albumin 4.2, Globulin 3.6, Albumin/Globulin Ratio 1.2, Lipase 41, Ethyl Alcohol 201.0 H 05/29/25 12:07: Urine Color Yellow, Urine Clarity Clear, Urine pH 8.0, Ur Specific [place] 1.010, Urine Protein 30 H, Urine Glucose (UA) Normal, Urine Ketones Negative, Urine Occult Blood Negative, Urine Nitrite Negative, Urine Bilirubin Negative, Urine Urobilinogen 8 H, Ur Leukocyte Esterase 100 H, Urine RBC 0 SEEN, Urine WBC 0-5 SEEN, Ur Squamous Epith Cells 0 SEEN, Urine Bacteria 0 SEEN, Urine Mucus 0 SEEN, Urine Opiates Screen NEGATIVE, U Buprenorphine Qual NEGATIVE, Ur Oxycodone Screen NEGATIVE, Urine Methadone Screen PRESUMPTIVE POSITIVE, Urine Fentanyl Screen PRESUMPTIVE POSITIVE, Ur Barbiturates Screen PRESUMPTIVE POSITIVE, Ur Phencyclidine Scrn NEGATIVE, Ur Amphetamines Screen NEGATIVE, U Benzodiazepines Scrn NEGATIVE, Urine Cocaine Screen NEGATIVE, U Cannabinoids Screen NEGATIVE 05/29/25 22:28: PT 15.5 H, INR 1.2 05/30/25 06:18: Sodium 137, Potassium 3.8, Chloride 99, Carbon Dioxide 24.8, Anion Gap 13, BUN 11, Creatinine 0.76, Estim Creat Clear Calc 122.63, Est GFR (MDRD) Non-Af 121, BUN/Creatinine Ratio 14.7, Glucose 78, Calcium 9.2, Total Bilirubin 1.77 H, AST 307 H, ALT 81 H, Alkaline Phosphatase 164 H, Total Protein 7.2, Albumin 4.0, Globulin 3.2, Albumin/Globulin Ratio 1.3 Physical Exam Narrative General: Alert, Oriented x3, Cooperative HEENT: Atraumatic, PERRLA, EOMI, Normocephalic. Oral: Oral mucosa moist. No Gingival or Mucosal Lesions/ Ulcerations Neck: Supple, No JVD, Negative Carotid Bruits Chest wall/Lungs: Air entry equal in bilateral lung bases. No crepitation/rhonchi Cardiovascular: Regular rate and rhythm, Normal S1,S2, No M/G/R Abdomen: Bowel Sounds Present, Soft, Non Tender, Non-Distended : No dysuria. No renal angle tenderness. No suprapubic tenderness. Extremities: No edema, Capillary Refill Less than 3 Seconds Skin: No rashes, No breakdown Musculoskeletal: No Tenderness to Palpation of Joints or Extremities Neurological: Cranial nerves II-XII grossly intact, DTR 2+/4. No acute focal neurological deficit. Psych/Mental Status: Flat affect. Pressured speech Assessment & Plan Assessment/Plan (1) Alcohol withdrawal delirium, acute, hyperactive: (2) Acute opioid withdrawal: PLAN: Plan This is a 34-year-old gentleman being admitted for acute alcohol withdrawal syndrome. 1. Acute alcohol withdrawal syndrome with history of chronic alcohol use disorder, dependence, tolerance: [facility] Patient on phenobarbital based order set along with other adjunctive medications gabapentin, Bentyl, Vistaril, clonidine, Klonopin as needed for alcohol withdrawal symptom control. Patient is on thiamine and folate acid. CIWA monitor. instructional design manager 180 consulted. Serum Ethyl alcohol 201. 05/30: Patient having tremors, muscle aches, anxiety but denies hallucination. No seizure. Heart rate 72. BP 137/81. No fever. CIWA score 8. Continue your treatment. 2. Acute opioid withdrawal syndrome: The patient is started on buprenorphine along with other adjunctive medications as needed for medical stabilization as per order set of opioid withdrawal syndrome.Patient also on trazodone, hydroxyzine, gabapentin as needed ordered. COWS monitoring. Advised quitting opioid use. instructional design manager consult. Patient using methadone as an outpatient and will hold it. UTOX positive of methadone screen, fentanyl, barbiturates. 05/30: Patient denies seizure, nightmares or weird dreams. 3. Chronic tobacco use disorder/nicotine dependence: Patient does vaping. Nicotine patch ordered 4. Chronic alcoholic hepatitis: During previous hospitalization in April, AST and ALT were elevated. ALP was also elevated 155. This time, AST 340, ALT 87 and ALP 163. Total bilirubin normal 1.27. IV fluid ordered. Monitor CMP daily. 05/30: Liver chemistry shows improvement in transaminases. 5. DVT prophylaxis low risk. Early ambulation encouraged. No prophylaxis indicated Living will/advanced directive/end of life care: Patient does not have living will or advanced directive. He does not tend to get power of senior trial attorney for health after discussion of benefits/risks procedures involved with full code, DNR CC arrest and DNR CC, the patient opted for full code. Patient does want artificial life support including intubation, tube feed, ventilator and/chest compression, central venous catheter, vasopressor and DC shock if needed Charges/Coding Visit Charges Inpatient E&M: 55868 Subs Hosp L2
[2025-05-30 16:00] VITALS: BP 145/87; PULSE 76; RESP 18; TEMP 36.7; O2SAT 99
[2025-05-30] MEDS: hydrOXYzine PAM 25 MG Capsule 50 MG PO (16:46)
[2025-05-30 21:27] VITALS: BP 145/99; PULSE 96; RESP 20; TEMP 36.8; O2SAT 100
--- NOTE | 2025-05-30 23:00 | NURSING ---
called sussy with update. she is concerned about him being off methadone as historically when methadone is dc'd pt's seizure activity level increases.
[2025-05-31] VITALS (17 sets, daily range): BP systolic 95–135; BP diastolic 72–93; PULSE 61–98; RESP 11–22; TEMP 36.4–36.8; O2SAT 96–100; BMI 21.2; BMI 21.4
--- NOTE | 2025-05-31 00:30 | NURSING ---
[facility] notified this rn that pt hit call light and had difficulty speaking. this rn entered the room and the patient appeared to be seizing: tremors, rigors, drooling, unable to follow commands. pt was turned on his side for safety. wigs salesperson was called and dr jc came to bedside. after ativan, phenobarb and versed were administered, pt was able to speak in clear sentences and answer all questions appropriately. he did not appear to be in a postictal state. per orders, pt was transferred to the icu for continued care.
--- NOTE | 2025-05-31 00:47 | NURSING ---
PATIENT HAVING SEIZURE AT THIS TIME.
--- NOTE | 2025-05-31 00:48 | NURSING ---
Dr. LEVINE AT BEDSIDE aTIVAN GIVEN 1MG
[2025-05-31] MEDS: Midazolam 5 MG/ML Syringe 4 MG IV (01:05)
--- NOTE | 2025-05-31 01:22 | PN.HOSP_ITS ---
Hospitalist Note RAPID RESPONSE NOTE: Rapid response initiated as patient had what was witnessed as a suspected seizure with no loss of bowel or bladder however. Upon hospitalist evaluation patient had no seizure activity and it appeared to have resolved. Patient was immediately administered IV Ativan. Requested initially Keppra load with continued twice daily regimen however patient was coherent enough to say that he breaks out in hives with Keppra. Requested Dilantin load and continued regimen in addition to phenobarb load. Given these medications would take some time for send 4 mg IV was administered. Given current presentation and concerns plan for transition to the ICU for continued close monitoring; however, given the fact that patient was not postictal at all some suspicion for questionable seizure- like activity versus real seizure.
[2025-05-31 02:55] LABS: HIV Nonreactive (Nonreactive); Magnesium 1.5 mg/dL (1.5-2.2); Syphilis Antibodies Nonreactive (Nonreactive)
[2025-05-31 03:20] LABS: Hepatitis B Surface Antigen Nonreactive (Nonreactive)
[2025-05-31 03:27] LABS: Hepatitis C Antibody REAC (Nonreactive)
[2025-05-31 03:53] LABS: AST(SGOT) 221 U/L (<=37); Alanine Aminotransfer ALT/SGPT 75 U/L (<=46); Albumin, Serum 4.0 g/dL (3.5-5.0); Alkaline Phosphatase 177 U/L (40-129); Anion Gap 14 (5-15); BUN 16 mg/dL (4-19); BUN/Creat Ratio 18.6 RATIO (10-20); Calcium,Total 9.1 mg/dL (7.6-11.0); Carbon Dioxide 22.7 mmol/L (21.0-32.0); Chloride 97 mmol/L (98-108); Estimated Creatinine Clearance 107.12 ml/min (50-250); Globulin 2.9 g/dL (2.2-4.2); Glucose 179 mg/dL (70-99); Potassium 3.6 mmol/L (3.3-5.1)
[2025-05-31] MEDS: Thiamine Hydrochloride 100 MG Tablet PO (08:24)
[2025-05-31] MEDS: Nicotine (PBKC) 21 MG Patch TD (08:25)
--- NOTE | 2025-05-31 09:50 | NURSING ---
Neurology, Dr Olvera beamed in to evaluate patient. Patient was found to be rigid from head to toe, eyes closed, making random repeated movements with his mouth, not responding to voice or deep painful stimulation. Dr Olvera evaluated patient and ordered 2 mg IV Ativan STAT. Ativan 2 mg IV was overridden from [facility] and administered. After 1-2 minutes, patient began to be less rigid, open eyes and respond appropriately to questions. Dr Olvera continued with her assessment, new orders recieved.
--- NOTE | 2025-05-31 09:53 | NEURO.CONS ---
Assessment and Plan: Neuro Assessment/Plan YU DOHERTY is a 34 M with a past medical history of substance use, alcohol abuse disorder, being evaluated by Teleneurology for seizure-like activity. Based on the event I saw, hard to saw if this was epileptic event or not. The event itself was atypical in its progression but could be related to seizure vs possible pain or dystonic reaction. Patient needs further monitoring to be able to progress his treatment. - recommend Ativan or midazolam for any seizure-like activity - please obtain dilantin level and provide 200mg IV Vimpat at this time. Plan to transfer to [facility] for continuous EEG monitoring. I personally attended this patient and spent a total time of 45 minutes evaluating this patient including clinical assessment, review of chart, medical history imaging, and determining appropriate treatment and workup. HPI Consult Data Date of Consult: 05/31/25 HPI Narrative HPI Narrative: This is a 34-year-old gentleman being admitted for acute alcohol withdrawal syndrome. From primary team notes: Acute alcohol withdrawal syndrome with history of chronic alcohol use disorder, dependence, tolerance: Patient is being admitted to [facility] floor. Patient on phenobarbital based order set along with other adjunctive medications gabapentin, Bentyl, Vistaril, clonidine, Klonopin as needed for alcohol withdrawal symptom control. Patient is on thiamine and folate acid. CIWA monitor. client manager large law 180 consulted. Serum Ethyl alcohol 201. 05/30: Patient having tremors, muscle aches, anxiety but denies hallucination. No seizure. Heart rate 72. BP 137/81. No fever. CIWA score 8. Acute opioid withdrawal syndrome: The patient is started on buprenorphine along with other adjunctive medications as needed for medical stabilization as per order set of opioid withdrawal syndrome.Patient also on trazodone, hydroxyzine, gabapentin as needed ordered. COWS monitoring. Advised quitting opioid use. client manager large law consult. Patient using methadone as an outpatient and will hold it. UTOX positive of methadone screen, fentanyl, barbiturates. 05/30: Patient denies seizure, nightmares or weird dreams. Today had seizure-like activity: Rapid response initiated as patient had what was witnessed as a suspected seizure with no loss of bowel or bladder however. Upon hospitalist evaluation patient had no seizure activity and it appeared to have resolved. Patient was immediately administered IV Ativan. Requested initially Keppra load with continued twice daily regimen however patient was coherent enough to say that he breaks out in hives with Keppra. Requested Dilantin load and continued regimen in addition to phenobarb load. Given these medications would take some time for send 4 mg IV was administered. Given current presentation and concerns plan for transition to the ICU for continued close monitoring; however, given the fact that patient was not postictal at all some suspicion for questionable seizure-like activity versus real seizure. Neurologic History Overnight had seizure-like activity, has a primary history of seizures. No events today so far, had limited post-ictal period with event. Patient initially asleep on entering then had seizure-like activity. Arms and legs are rigid and stiff, mouth with some automatisms, then arms and legs in tonic contraction, head turns to the R. Seizure lasted prolonged period of time with rasping breathing. AFter 3 min patient had open eyes and the arms and legs were loosened and eyes were opened and started paying attention to staff. This happened about 1 min after Ativan was given. He was able to start answering questions shortly after the event and endorsed significant pain. He does seem still confused but follows some commands. Even after the event he endorses pain and rigidity throughout and poor movement due to high tone. Exam Exam fluctuates but at best, patient has stiff arms and legs b/l, has posturing in the LUE. EOMI Able to follow commands, aware to time and place no facial asymmetry no focal weakness in arms and legs [facility] Medical History Tobacco use Alcohol abuse Alcoholic pancreatitis Substance abuse Hx of renal calculi Home Medications ?Medication ?Instructions ?Recorded ?Last Taken ?Type clonidine HCl 0.2 mg tablet 0.2 mg PO TID PRN PRN anxiety 05/29/25 05/28/25 History dicyclomine 10 mg capsule 10 mg PO TID PRN PRN cramps 05/29/25 Unknown History hydroxyzine pamoate 100 mg capsule 100 mg PO TID PRN PRN anxiety 05/29/25 05/28/25 History methadone 120 mg PO 1XD opioid withdrawl 05/29/25 05/29/25 09:30 History ondansetron 4 mg disintegrating 4 mg PO Q8H PRN PRN nausea and 05/29/25 05/29/25 03:13 History tablet vomiting Allergy/AdvReac Type Severity Reaction Status Date / Time levetiracetam (From [facility]) Allergy HIVES Verified 05/29/25 10:57 Family History Mother Hypertension Polysubstance abuse Father Hypertension Polysubstance abuse Alcohol abuse Other Cancer Surgical History Hx of tonsillectomy Social History household members: spouse Smoking Status: Current every day smoker tobacco type: e-cigarettes Electronic Cigarette Use: with nicotine alcohol intake: current alcohol intake frequency: 3 or more drinks per day Alcohol type: hard liquor details: Approximately 1 pint Francine daily substance use type: heroin, opiates and other details: Heroin/fentanyl 1 to 2 g daily snorted Vital Signs Vital Signs Vital Signs: 05/30/25 10:00 05/30/25 16:00 05/30/25 21:27 Temperature 98.0 F 98.2 F Temperature Source Temporal Oral Pulse Rate 76 96 Pulse Strength Normal (2+) Respiratory Rate 18 20 H Respiratory Effort Respiratory Depth Respiratory Pattern Blood Pressure 145/87 H 145/99 H Blood Pressure Mean 106 114 Blood Pressure Source Monitor Blood Pressure Position Supine Blood Pressure Location Left Arm Pulse Ox 99 100 Oxygen Delivery Method Room Air Room Air 05/31/25 02:00 05/31/25 03:00 05/31/25 03:14 Temperature 97.5 F L 97.5 F L Temperature Source Temporal Temporal Pulse Rate 88 84 98 Pulse Strength Respiratory Rate 12 17 11 L Respiratory Effort Respiratory Depth Respiratory Pattern Blood Pressure 135/84 H 118/77 118/77 Blood Pressure Mean 101 90 90 Blood Pressure Source Monitor Monitor Monitor Blood Pressure Position Semi-Fowlers Semi-Fowlers Semi-Fowlers Blood Pressure Location Right Arm Left Arm Left Arm Pulse Ox 99 98 100 Oxygen Delivery Method Room Air Room Air Room Air 05/31/25 03:35 05/31/25 04:00 05/31/25 04:00 Temperature Temperature Source Pulse Rate 86 85 Pulse Strength Respiratory Rate 15 Respiratory Effort Normal Non-Labored Respiratory Depth Normal Respiratory Pattern Normal Blood Pressure 112/72 Blood Pressure Mean 85 Blood Pressure Source Monitor Blood Pressure Position Semi-Fowlers Blood Pressure Location Left Arm Pulse Ox 99 Oxygen Delivery Method Room Air Room Air 05/31/25 05:00 05/31/25 06:00 05/31/25 07:00 Temperature Temperature Source Pulse Rate 76 73 75 Pulse Strength Respiratory Rate 14 20 H 14 Respiratory Effort Respiratory Depth Respiratory Pattern Blood Pressure 109/82 H 115/80 111/77 Blood Pressure Mean 91 91 88 Blood Pressure Source Monitor Monitor Monitor Blood Pressure Position Semi-Fowlers Semi-Fowlers Semi-Fowlers Blood Pressure Location Left Arm Right Arm Right Arm Pulse Ox 98 98 99 Oxygen Delivery Method Room Air Room Air Room Air 05/31/25 08:00 05/31/25 09:00 05/31/25 09:20 Temperature 97.7 F L Temperature Source Temporal Pulse Rate 88 85 Pulse Strength Normal (2+) Respiratory Rate 14 16 Respiratory Effort Respiratory Depth Respiratory Pattern Blood Pressure 95/73 106/77 Blood Pressure Mean 80 86 Blood Pressure Source Monitor Monitor Blood Pressure Position Semi-Fowlers Semi-Fowlers Blood Pressure Location Right Arm Right Arm Pulse Ox 100 100 Oxygen Delivery Method Room Air Room Air Weight Weight: 63.3 kg Body Mass Index (BMI) 21.2 EEG Results Procedure Details EEG Procedure Details: YU DOHERTY is a 34 year old M with a past medical history of , who presents for evaluation of Electroencephalogram on DATE at TIME Lab / Micro Data 05/29/25 12:00 05/31/25 03:27 Labs: Laboratory Results - last 24 hr 05/31/25 00:52: POC Glucose 98 05/31/25 01:35: Phosphorus 3.4, Magnesium 1.5, Syphilis Total Ab Nonreactive, Hep Bs Antigen Cancelled 05/31/25 01:35: Hep Bs Antigen Nonreactive, Hep Bs Ag Confirmation Cancelled, Hep B Surface Ag Comm Cancelled, Hep Bs Antibody Cancelled 05/31/25 01:35: Hep Bs Antibody Nonreactive, Hep B Core Total Ab Cancelled, Hepatitis C Antibody Cancelled 05/31/25 01:35: Hepatitis C Antibody REAC, Hep C Ab Comment Cancelled, Hepatitis Interpret Cancelled, HIV 1&2 Antibody Nonreactive, Miscellaneous Test Cancelled 05/31/25 03:27: Sodium 134, Potassium 3.6, Chloride 97 L, Carbon Dioxide 22.7, Anion Gap 14, BUN 16, Creatinine 0.87, Estim Creat Clear Calc 107.12, Est GFR (MDRD) Non-Af 116, BUN/Creatinine Ratio 18.6, Glucose 179 H, Calcium 9.1, Total Bilirubin 1.40 H, AST 221 H, ALT 75 H, Alkaline Phosphatase 177 H, Total Protein 6.9, Albumin 4.0, Globulin 2.9, Albumin/Globulin Ratio 1.4 Active Medications Active Medications Active Medications: Current Medications Generic Name Dose Route Start Last Admin Trade Name Freq PRN Reason Stop Dose Admin Acetaminophen 500 mg 05/29/25 15:05/30/25 21:25 Acetaminophen 500 Mg Tablet PO 500 mg Q6H PRN Administration HEADACHE/FEVER (T>102.5) Al Hydroxide/Mg Hydroxide 30 ml 05/29/25 15:01 05/30/25 21:38 Mag Hydrox/Al Hydrox/Simeth 30 Ml Udc PO 30 ml Q6H PRN PRN Administration dyspesia Bisacodyl 10 mg 05/29/25 15:01 Bisacodyl 10 Mg Suppository RC DAILY PRN Constipation Buprenorphine HCl 0 mg 05/29/25 15:01 Buprenorphine Hcl 2 Mg Tab.Subl SL 06/01/25 15:00 Q8H KRISS Taper Clonidine 0.1 mg 05/29/25 15:01 05/30/25 09:03 Clonidine Hcl 0.1 Mg Tablet PO 0.1 mg Q8H PRN PRN Administration RESTLESSNESS Dicyclomine HCl 20 mg 05/29/25 15:01 05/29/25 15:49 Dicyclomine 10 Mg Capsule PO 20 mg Q6H PRN PRN Administration abdominal discomfort Folic Acid 1 mg 05/30/25 08:00 05/31/25 08:24 Folic Acid 1 Mg Tablet PO 1 mg DAILY@0800 KRISS Administration Gabapentin 300 mg 05/29/25 15:01 05/31/25 08:24 Gabapentin 300 Mg Capsule PO 300 mg Q8H PRN PRN Administration moderate to severe anxiety Hydroxyzine Pamoate 50 mg 05/29/25 15:01 05/30/25 16:46 Hydroxyzine Lamar 25 Mg Capsule PO 50 mg Q4H PRN PRN Administration mild anxiety Sodium Chloride 250 mls @ 15 mls/hr 05/31/25 02:54 IV .[id number] PRN Saline Flush Sodium Chloride 250 mls @ 15 mls/hr 05/31/25 02:54 IV .[id number] PRN Additional IVPB Infusion Ibuprofen 400 mg 05/29/25 15:01 Ibuprofen 400 Mg Tablet PO Q8H PRN PRN Pain Score 1-10 Loperamide HCl 2 mg 05/29/25 15:01 Loperamide 2 Mg Capsule PO Q4H PRN PRN DIARRHEA/LOOSE STOOLS Methocarbamol 750 mg 05/29/25 15:01 05/30/25 16:46 Methocarbamol 750 Mg Tablet PO 750 mg Q6H PRN PRN Administration MUSCLE SPASM Nicotine 21 mg 05/29/25 15:01 05/31/25 08:25 Nicotine (Pbkc) 21 Mg Patch TD 21 mg DAILY KRISS Administration Ondansetron HCl 8 mg 05/29/25 15:01 Ondansetron 8 Mg Tablet PO Q8H PRN PRN NAUSEA Phenobarbital 64.8 mg 05/29/25 16:00 05/31/25 08:24 Phenobarbital 32.4 Mg Tablet PO 06/02/25 23:59 64.8 mg Q4H KRISS Administration Taper Phenytoin Sodium 100 mg 05/31/25 06:00 05/31/25 05:52 Phenytoin Na 100 Mg/2 Ml Vial IV 100 mg Q8 KRISS Administration Senna 2 tablet 05/29/25 15:01 Senna Tablet PO QHS PRN Constipation Sodium Chloride 10 - 40 ml 05/31/25 02:54 0.9% Saline Lock 10 Ml Syringe IV UD PRN SALINE FLUSH Thiamine HCl 100 mg 05/30/25 08:00 05/31/25 08:24 Thiamine Hydrochloride 100 Mg Tablet PO 100 mg DAILYCM KRISS Administration Trazodone HCl 100 mg 05/29/25 15:01 05/30/25 21:24 Trazodone 100 Mg Tablet PO 100 mg QHS PRN Administration INSOMNIA
--- NOTE | 2025-05-31 10:17 | PCM.PN.HOSP ---
Reason for Visit Chief Complaint: Alcohol and opioid withdrawal symptoms Objective Data Objective Data Vital Signs: Vital Signs Temp Pulse Resp BP Pulse Ox O2 Del Method 97.7 F L 85 16 106/77 100 Room Air 05/31/25 08:00 05/31/25 09:00 05/31/25 09:00 05/31/25 09:00 05/31/25 09:00 05/31/25 09:00 Oxygen Delivery Method Room Air Weight: 139 lb 8.842 oz Body Mass Index (BMI) 21.2 Intake & Output: Intake and Output for Last 24 Hours 05/29/25 05/30/25 05/31/25 23:59 23:59 23:59 Intake Total 2099 / 2099 1100 / 1100 239 / 239 Output Total 550 / 550 0 / 0 Balance 2099 550 / 550 239 / 239 Lab / Micro Data 05/29/25 12:00 05/31/25 03:27 Labs: Laboratory Results - last 24 hr 05/31/25 00:52: POC Glucose 98 05/31/25 01:35: Phosphorus 3.4, Magnesium 1.5, Syphilis Total Ab Nonreactive, Hep Bs Antigen Cancelled 05/31/25 01:35: Hep Bs Antigen Nonreactive, Hep Bs Ag Confirmation Cancelled, Hep B Surface Ag Comm Cancelled, Hep Bs Antibody Cancelled 05/31/25 01:35: Hep Bs Antibody Nonreactive, Hep B Core Total Ab Cancelled, Hepatitis C Antibody Cancelled 05/31/25 01:35: Hepatitis C Antibody REAC, Hep C Ab Comment Cancelled, Hepatitis Interpret Cancelled, HIV 1&2 Antibody Nonreactive, Miscellaneous Test Cancelled 05/31/25 03:27: Sodium 134, Potassium 3.6, Chloride 97 L, Carbon Dioxide 22.7, Anion Gap 14, BUN 16, Creatinine 0.87, Estim Creat Clear Calc 107.12, Est GFR (MDRD) Non-Af 116, BUN/Creatinine Ratio 18.6, Glucose 179 H, Calcium 9.1, Total Bilirubin 1.40 H, AST 221 H, ALT 75 H, Alkaline Phosphatase 177 H, Total Protein 6.9, Albumin 4.0, Globulin 2.9, Albumin/Globulin Ratio 1.4 Physical Exam Narrative As per nursing staff, he had a seizure last night therefore transferred to ICU. During neurologist evaluation patient also had seizure. Physical exam: General: Drowsy, lethargic whispers HEENT: Atraumatic, PERRLA, EOMI, Normocephalic. Oral: Oral mucosa moist. No Gingival or Mucosal Lesions/ Ulcerations Neck: Supple, No JVD, Negative Carotid Bruits Chest wall/Lungs: Air entry equal in bilateral lung bases. No crepitation/rhonchi Cardiovascular: Regular rate and rhythm, Normal S1,S2, No M/G/R Abdomen: Bowel Sounds Present, Soft, Non Tender, Non-Distended : No dysuria. No renal angle tenderness. No suprapubic tenderness. Extremities: No edema, Capillary Refill Less than 3 Seconds Skin: No rashes, No breakdown Musculoskeletal: No Tenderness to Palpation of Joints or Extremities Neurological: Lethargic. Seizure. GCS 12, E3, V4, M6 Psych/Mental Status: Flat affect. Drowsy Assessment & Plan Assessment/Plan (1) Alcohol withdrawal delirium, acute, hyperactive: (2) Acute opioid withdrawal: PLAN: Plan This is a 34-year-old gentleman being admitted for acute alcohol withdrawal syndrome. 1. Acute alcohol withdrawal syndrome with history of chronic alcohol use disorder, dependence, tolerance: Patient is being admitted to [facility] floor. Patient on phenobarbital based order set along with other adjunctive medications gabapentin, Bentyl, Vistaril, clonidine, Klonopin as needed for alcohol withdrawal symptom control. Patient is on thiamine and folate acid. CIWA monitor. quality assurance test program manager [id number] consulted. Serum Ethyl alcohol 201. 05/30: Patient having tremors, muscle aches, anxiety but denies hallucination. No seizure. Heart rate 72. BP 137/81. No fever. CIWA score 8. Continue your treatment. 05/31: Patient had seizure last night, witnessed by nursing station but no bowel or bladder activity. Was given IV Ativan. Patient allergic to Keppra therefore was loaded with Dilantin and phenobarb. As per night to hospitalist note patient was not postictal. During neurologist around, patient also had seizure. Patient said he had a seizure in 2019 but could not give detailed account on that. EEG stat, CT head stat, loading dose of IV Vimpat and transferred to higher level of care are requested. I called [facility] for the bed and will let us know. 2. Acute opioid withdrawal syndrome: The patient is started on buprenorphine along with other adjunctive medications as needed for medical stabilization as per order set of opioid withdrawal syndrome.Patient also on trazodone, hydroxyzine, gabapentin as needed ordered. COWS monitoring. Advised quitting opioid use. quality assurance test program manager consult. Patient using methadone as an outpatient and will hold it. UTOX positive of methadone screen, fentanyl, barbiturates. 05/30: Patient denies seizure, nightmares or weird dreams. 05/01: As mentioned above 3. Chronic tobacco use disorder/nicotine dependence: Patient does vaping. Nicotine patch ordered 4. Chronic alcoholic hepatitis: During previous hospitalization in April, AST and ALT were elevated. ALP was also elevated 155. This time, AST 340, ALT 87 and ALP 163. Total bilirubin normal 1.27. IV fluid ordered. Monitor CMP daily. 05/30: Liver chemistry shows improvement in transaminases. 05/31: Improvement in transaminases. ALP 177. Total bilirubin 1.4 better than yesterday. 5. DVT prophylaxis low risk. Early ambulation encouraged. No prophylaxis indicated 05/31 bilateral SCDs started. Living will/advanced directive/end of life care: Patient does not have living will or advanced directive. He does not tend to get power of therapist speech for health after discussion of benefits/risks procedures involved with full code, DNR CC arrest and DNR CC, the patient opted for full code. Patient does want artificial life support including intubation, tube feed, ventilator and/chest compression, central venous catheter, vasopressor and DC shock if needed Charges/Coding Visit Charges Inpatient E&M: 53080 [facility] L3
--- NOTE | 2025-05-31 10:45 | CT_ITS ---
PROCEDURE: BRAIN/HEAD WITHOUT CONTRAST 05/31/2025 REASON FOR EXAM: Clinical history of seizure. TECHNIQUE: Procedure Code: CTBR Modality: CT Procedure: BRAIN/HEAD WITHOUT CONTRAST Coronal and Sagittal reconstruction series were provided. One or more dose reduction techniques were used (e.g., Automated exposure control, adjustment of the mA and/or kV according to patient size, use of iterative reconstruction technique. RADIATION DOSE SUMMARY: DLP: 815.79 mGycm COMPARISON: None available. FINDINGS: No acute hemorrhage. No acute infarct. No significant mass effect or brain herniation. The ventricular system and sulci/fissures are within normal limits of size and configuration for the patient's stated age. No extra-axial fluid collection. The basal cisterns are patent. The mastoid air cells are clear. Polypoid mucosal thickening in the right maxillary sinus. Left nasal septal deviation and nasal spur. The calvarium appears intact. CT/Brain/Head without Contrast IMPRESSION: No CT evidence of acute intracranial hemorrhage, infarct, or significant mass e ffect. Reading Location: [facility]
--- NOTE | 2025-05-31 11:00 | CASEMGMT ---
Tertiary Insurance review for hospitals In-network with [facility] insurance if transfer is recommended is as follows: [facility], [facility], [facility], , [place], [facility], [facility], and [place]. Mila Nina, Discharge Planning Asst.
[2025-05-31] MEDS: Lacosamide 200 MG in 0.9% Normal Saline (50mL Bag) 50 ML 100 MG IV (12:31)
[2025-05-31] MEDS: Magnesium Sulfate 2 GM in Dextrose 5%-Water (100mL Bag) 100 ML IV (12:31)
--- NOTE | 2025-05-31 14:31 | DS.PCM_ITS ---
Providers Date of Admission: 05/29/25 Date of Discharge: 05/31/25 Primary Care Physician: No Primary Care Phys Consultations 05/31/25 01:58 Consult: [facility]wn Care Professional / Pulmonary Medicine Routine Consulting Provider: Intensivists/Pulmonary Med Reason for Consult: EtOH withdrawal, ? seizure EMERGENT Consult: No Notified: No Date Notified: 05/31/25 Time Notified: 01:21 05/31/25 08:06 Consult: Tele-Neurology Routine Consulting Provider: [facility] Reason for Consult: suspected seizure, alcohol withdrawal EMERGENT Consult: No Notified: Yes Date Notified: 05/31/25 Time Notified: 08:19 Method of Notification: Answering Service Nursing Unit Staff Notify [facility] of Tele-Neurology Consult: Yes Reason For Visit: ACUTE ALCOHOL WITHDRAWAL Diagnosis Discharge Diagnosis (1) Alcohol withdrawal delirium, acute, hyperactive: Status: Acute Code(s): F10.931 - Alcohol use, unspecified with withdrawal delirium (2) Acute opioid withdrawal: Status: Acute Code(s): F11.93 - Opioid use, unspecified with withdrawal Plan This is a 34-year-old gentleman being admitted for acute alcohol withdrawal syndrome. 1. Acute alcohol withdrawal syndrome with history of chronic alcohol use disorder, dependence, tolerance: Patient is being admitted to MedSurg floor. Patient on phenobarbital based order set along with other adjunctive medications gabapentin, Bentyl, Vistaril, clonidine, Klonopin as needed for alcohol withdrawal symptom control. Patient is on thiamine and folate acid. CIWA monitor. planning manager 180 consulted. Serum Ethyl alcohol 201. 05/30: Patient having tremors, muscle aches, anxiety but denies hallucination. No seizure. Heart rate 72. BP 137/81. No fever. CIWA score 8. Continue your treatment. 05/31: Patient had seizure last night, witnessed by nursing station but no bowel or bladder activity. Was given IV Ativan. Patient allergic to Keppra therefore was loaded with Dilantin and phenobarb. As per night to hospitalist note patient was not postictal. During neurologist around, patient also had seizure. Patient said he had a seizure in 2019 but could not give detailed account on that. EEG stat, CT head stat, loading dose of IV Vimpat and transferred to higher level of care are requested. I called [facility] for the bed and will let us know. In the afternoon patient got the bed in [facility]. Transfer papers signed. Multiple [facility] called and they do not have bed and patient needs urgent 24- hour EEG monitoring therefore transferred to ICU. Vitals in normal range. 2. Acute opioid withdrawal syndrome: The patient is started on buprenorphine along with other adjunctive medications as needed for medical stabilization as per order set of opioid withdrawal syndrome.Patient also on trazodone, hydroxyzine, gabapentin as needed ordered. COWS monitoring. Advised quitting opioid use. planning manager consult. Patient using methadone as an outpatient and will hold it. UTOX positive of methadone screen, fentanyl, barbiturates. 05/30: Patient denies seizure, nightmares or weird dreams. 05/01: As mentioned above 3. Chronic tobacco use disorder/nicotine dependence: Patient does vaping. Nicotine patch ordered 4. Chronic alcoholic hepatitis: During previous hospitalization in April, AST and ALT were elevated. ALP was also elevated 155. This time, AST 340, ALT 87 and ALP 163. Total bilirubin normal 1.27. IV fluid ordered. Monitor CMP daily. 05/30: Liver chemistry shows improvement in transaminases. 05/31: Improvement in transaminases. ALP 177. Total bilirubin 1.4 better than yesterday. 5. DVT prophylaxis low risk. Early ambulation encouraged. No prophylaxis indicated 05/31 bilateral SCDs started. Living will/advanced directive/end of life care: Patient does not have living will or advanced directive. He does not tend to get power of trial attorney for health after discussion of benefits/risks procedures involved with full code, DNR CC arrest and DNR CC, the patient opted for full code. Patient does want artificial life support including intubation, tube feed, ventilator and/chest compression, central venous catheter, vasopressor and DC shock if needed Medications at Discharge Home Medications clonidine HCl 0.2 mg tablet 0.2 mg PO TID PRN PRN anxiety 05/29/25 dicyclomine 10 mg capsule 10 mg PO TID PRN PRN cramps 05/29/25 hydroxyzine pamoate 100 mg capsule 100 mg PO TID PRN PRN anxiety 05/29/25 methadone 120 mg PO 1XD opioid withdrawl 05/29/25 ondansetron 4 mg disintegrating tablet 4 mg PO Q8H PRN PRN nausea and vomiting 05/29/25 Physical Exam Narrative Please see progress note of same date. CT head was done did not show acute intracranial abnormality. Weight / BMI Weight Weight: 139 lb 8.842 oz Body Mass Index (BMI) 21.2 ABG / Lab / Microbiology Data 05/29/25 12:00 05/31/25 03:27 Laboratory: Laboratory Results - last 24 hr 05/31/25 00:52: POC Glucose 98 05/31/25 01:35: Phosphorus 3.4, Magnesium 1.5, Syphilis Total Ab Nonreactive, Hep Bs Antigen Cancelled 05/31/25 01:35: Hep Bs Antigen Nonreactive, Hep Bs Ag Confirmation Cancelled, Hep B Surface Ag Comm Cancelled, Hep Bs Antibody Cancelled 05/31/25 01:35: Hep Bs Antibody Nonreactive, Hep B Core Total Ab Cancelled, Hepatitis C Antibody Cancelled 05/31/25 01:35: Hepatitis C Antibody REAC, Hep C Ab Comment Cancelled, Hepatitis Interpret Cancelled, HIV 1&2 Antibody Nonreactive, Miscellaneous Test Cancelled 05/31/25 03:27: Sodium 134, Potassium 3.6, Chloride 97 L, Carbon Dioxide 22.7, Anion Gap 14, BUN 16, Creatinine 0.87, Estim Creat Clear Calc 107.12, Est GFR (MDRD) Non-Af 116, BUN/Creatinine Ratio 18.6, Glucose 179 H, Calcium 9.1, Total Bilirubin 1.40 H, AST 221 H, ALT 75 H, Alkaline Phosphatase 177 H, Total Protein 6.9, Albumin 4.0, Globulin 2.9, Albumin/Globulin Ratio 1.4 05/31/25 12:35: Phenytoin 15.4 Radiography Diagnostic Testing: Radiology Impression Brain CT 05/31/25 10:45 IMPRESSION: No CT evidence of acute intracranial hemorrhage, infarct, or significant mass effect. Reading Location: [id number] Instructions DC O2, CPAP, BIPAP Needs Home O2 Discharge instructions: No Meaningful Use Info Meaningful Use Meaningful Use Diagnoses (Choose all that apply): None applicable Discharge Plan Admission Admit Date/Time: 05/29/25 12:50 Attending Provider: Sorin Connell Primary Care Provider: Care Physician,No Primary Consulting Providers: Chung Lamb; Eben Flores; Patsy Henry; Neetu Crenshaw; Maryjo Olvera; Alexis Klein; Kendra Rai; Mathieu Buitrago; Milan Kaur; Vipin Krishnamurthy; Yvette Layton; Macy Haynes; Caleb Garcia; Barbie Yuen; Geovanna Bergman; Maninder,mamie Moody; Khoa Stein; Jory Christine; Adam Aj; Elaine Tejada; Maria Elena Miller; Eugenia Canela; Barry Ryan; Kristie Butler; ALVIN CANCINO; Esteban Faria; Naye Casey Discharge Orders/Prescriptions Prescriptions: No Action clonidine HCl 0.2 mg tablet 0.2 mg PO TID PRN PRN (Reason: anxiety) methadone 120 mg PO 1XD hydroxyzine pamoate 100 mg capsule 100 mg PO TID PRN PRN (Reason: anxiety) ondansetron 4 mg tablet,disintegrating 4 mg PO Q8H PRN PRN (Reason: nausea and vomiting) dicyclomine 10 mg capsule 10 mg PO TID PRN PRN (Reason: cramps) Referrals / Follow Up: Care Physician,No Primary [Primary Care Provider, Medical] Disposition Discharge Orders: Discharge Patient (Routine); Ordered 05/31/25 Ordered By: Dr. Sorin Connell
[2025-06-02 10:08] LABS: HCV Quant. RNA PCR 1200000 IU/mL (.)
--- NOTE | 2025-06-07 14:49 | NURSING ---
found home med labelled for pain in ms3 narc drawer- dose bottle labelled as methadone 120mg. med sealed in security bag number [id number] and sent to in pharmacy.
== END 2025-05-31 16:10 | disposition short-term general hospital (02) | DRG 773 ==
LOC: ED 12:43 → MS3 14:04 → ICU 05-31 01:33
PROVIDERS: Family Medicine; Admitting Provider Internal Medicine; Emergency Provider Student in an Organized Health Care Education/Training Program; Visit Provider Internal Medicine
DX: F11.23 Opioid dependence with withdrawal (principal); F10.231 Alcohol dependence with withdrawal delirium; R56.9 Unspecified convulsions; K70.10 Alcoholic hepatitis without ascites; F17.290 Nicotine dependence, other tobacco product, uncomplicated; Y90.7 Blood alcohol level of 200-239 mg/100 ml
CPT/HCPCS: 36415; 70450; 80053; 80185; 80307; 81001; 82077; 82550; 82962; 83690; 83735; 84100; 85025; 85610; 86703; 86706; 86780; 86803; 87340; 87522; 93005; 95819; 99285; A4216; C9254